=== PATIENT | female | born 1970 | race Hispanic/Latino ===

== ENCOUNTER 2017-12-01 18:50 | Emergency (ER) | payer SELFPAY ==
[2017-12-01 19:16] LABS: BASOPHILS % (AUTO) 0.5 % (0.0-5.0); EOSINOPHILS % (AUTO) 3.6 % (0.0-8.0); HEMATOCRIT 37.9 % (36-48); LYMPHOCYTES % (AUTO) 33.8 % (21.0-51.0); MEAN CORPUSCULAR HEMOGLOBIN 33.7 pg (27.0-33.0); MEAN CORPUSCULAR HGB CONC 34.7 g/dL (32.0-36.0); MEAN CORPUSCULAR VOLUME 97.2 fL (79-99); MONOCYTES % (AUTO) 11.7 % (3.0-13.0); NEUTROPHILS % (AUTO) 50.4 % (40.0-77.0); PLATELET COUNT (AUTO) 151 K/uL (130-400); RED CELL DISTRIBUTION WIDTH 13.4 % (11.0-15.5); WHITE BLOOD COUNT (AUTO) 4.5 K/uL (4.8-10.8)
[2017-12-01 19:38] LABS: CREATININE 0.6 mg/dL (0.5-1.5); POTASSIUM 3.4 mmol/L (3.5-5.1)
[2017-12-01] MEDS ORDERED: KETOROLAC TROMETHAMINE 30MG/ML ONE (19:39)
[2017-12-01] MEDS ORDERED: ONDANSETRON HCL 4 MG/2 ML VIAL ONE (19:39)
[2017-12-01] MEDS ORDERED: SODIUM CHLORIDE 0.9% 1000ML 1,000 ML IV ONE (19:39)
[2017-12-01 19:42] LABS: ALBUMIN 3.6 g/dL (3.5-5.0); BILIRUBIN,TOTAL 0.6 mg/dL (0.2-1.0); TOTAL PROTEIN, SERUM 7.6 g/dL (6.0-8.3)
[2017-12-01 19:52] LABS: APPEARANCE,URINE Clear (CLEAR); BILIRUBIN,URINE Negative (NEGATIVE); COLOR,URINE Yellow (YELLOW); GLUCOSE, URINE (UA) Negative (NEGATIVE); KETONES,URINE Negative (NEGATIVE); LEUKOCYTE ESTERASE ,URINE Negative (NEGATIVE); NITRATE,URINE Negative (NEGATIVE); OCCULT BLOOD,URINE Trace (NEGATIVE); PH,URINE 6.5 (5.0-8.0); PROTEIN,URINE Negative (NEGATIVE); UROBILINOGEN,URINE 0.2 mg/dL (0.2-1.0)
[2017-12-01 20:18] LABS: BACTERIA,URINE None Seen /HPF (None Seen); RBC,URINE 0-1 /HPF (0-1); SQUAMOUS EPITHELIAL CELL,UR 0-2 /LPF (0-2); WBC,URINE None Seen /HPF (0-1)
[2017-12-01] MEDS ORDERED: IOPAMIDOL-370 75 ML VIAL IV ONE (20:27)
== END 2017-12-01 22:52 | disposition home or self-care (01) ==
LOC: EDH 18:50
DX: R10.31 Right lower quadrant pain (principal); R10.2 Pelvic and perineal pain; Z90.49 Acquired absence of other specified parts of digestive tract; Z98.51 Tubal ligation status; Z87.891 Personal history of nicotine dependence
CPT/HCPCS: 36415; 74177; 80053; 81001; 83690; 84703; 85025; 96361; 96374; 96375; 99285; J1885; J2405; J7030; Q9967

== ENCOUNTER 2022-12-20 17:29 | Emergency (ER) | payer SELFPAY ==
[~2022-12-20] VITALS: Ht 162.6 cm; Wt 125.6 kg
[2022-12-20 18:04] LABS: BASOPHILS % (AUTO) 0.4 % (0.0-5.0); EOSINOPHILS % (AUTO) 3.1 % (0.0-8.0); HEMATOCRIT 31.6 % (36-48); LYMPHOCYTES % (AUTO) 25.8 % (21.0-51.0); MEAN CORPUSCULAR HEMOGLOBIN 28.3 pg (27.0-33.0); MEAN CORPUSCULAR HGB CONC 32.3 g/dL (32.0-36.0); MEAN CORPUSCULAR VOLUME 87.5 fL (79-99); MONOCYTES % (AUTO) 7.7 % (3.0-13.0); NEUTROPHILS % (AUTO) 62.6 % (40.0-77.0); PLATELET COUNT (AUTO) 59 K/uL (130-400); RED BLOOD CELL COUNT(AUTO) 3.61 MIL/uL (4.00-5.50); RED CELL DISTRIBUTION WIDTH 15.8 % (11.0-15.5); WHITE BLOOD COUNT (AUTO) 2.6 K/uL (4.8-10.8)
[2022-12-20 18:14] LABS: CREATININE 0.7 mg/dL (0.5-1.5); POTASSIUM 3.7 mmol/L (3.5-5.1)
[2022-12-20 18:23] LABS: ALBUMIN 2.9 g/dL (3.5-5.0); TOTAL PROTEIN, SERUM 7.4 g/dL (6.0-8.3)
[2022-12-20 18:58] VITALS: BP 150/87
[2022-12-20 19:33] LABS: EOSINOPHILS % (MANUAL) 2 % (1-6); LYMPHOCYTES % (MANUAL) 21 % (22-44); MONOCYTES % (MANUAL) 8 % (2-9); SEGMENTED NEUTROPHILS % 69 % (40-70)
[2022-12-20 19:34] LABS: MAN.DIFF COMMENT-IMPRESSION MANUAL DIFFERENTIAL; PLATELET MORPHOLOGY COMMENT DECREASED
[2022-12-20 20:44] LABS: APPEARANCE,URINE CLEAR (CLEAR); BILIRUBIN,URINE NEGATIVE (NEGATIVE); COLOR,URINE LIGHT-YELLOW (YELLOW); GLUCOSE, URINE (UA) >=1000 mg/dL (NEGATIVE); KETONES,URINE NEGATIVE (NEGATIVE); LEUKOCYTE ESTERASE ,URINE NEGATIVE Leu/uL (NEGATIVE); NITRATE,URINE NEGATIVE (NEGATIVE); OCCULT BLOOD,URINE SMALL (NEGATIVE); PROTEIN,URINE NEGATIVE (NEGATIVE)
[2022-12-20 21:10] LABS: MUCUS,URINE RARE LPF (None Seen); SQUAMOUS EPITHELIAL CELL,UR FEW /HPF (0-2)
[2022-12-20 21:29] LABS: HEMATOCRIT 32.1 % (36-48)
== END 2022-12-20 23:44 | disposition home or self-care (01) ==
LOC: EDH 17:29
DX: F41.9 Anxiety disorder, unspecified (principal); M32.9 Systemic lupus erythematosus, unspecified; E11.9 Type 2 diabetes mellitus without complications; G20 Parkinson's disease; Z90.49 Acquired absence of other specified parts of digestive tract
CPT/HCPCS: 36415; 70450; 71045; 80053; 81001; 84484; 85014; 85018; 85025; 93005

== ENCOUNTER 2023-01-10 23:20 | Emergency (ER) | payer OTHER ==
[~2023-01-10] VITALS: Ht 162.6 cm; Wt 126.1 kg
[2023-01-10 23:49] LABS: BASOPHILS % (AUTO) 0.4 % (0.0-5.0); EOSINOPHILS % (AUTO) 4.7 % (0.0-8.0); HEMATOCRIT 32.9 % (36-48); LYMPHOCYTES % (AUTO) 29.7 % (21.0-51.0); MEAN CORPUSCULAR HEMOGLOBIN 27.5 pg (27.0-33.0); MEAN CORPUSCULAR HGB CONC 31.6 g/dL (32.0-36.0); MONOCYTES % (AUTO) 9.3 % (3.0-13.0); NEUTROPHILS % (AUTO) 55.5 % (40.0-77.0); PLATELET COUNT (AUTO) 52 K/uL (130-400); RED BLOOD CELL COUNT(AUTO) 3.78 MIL/uL (4.00-5.50); RED CELL DISTRIBUTION WIDTH 15.9 % (11.0-15.5); WHITE BLOOD COUNT (AUTO) 2.4 K/uL (4.8-10.8)
[2023-01-11] MEDS ORDERED: ASPIRIN 81MG CHEW TAB PO ONE
[2023-01-11 00:02] LABS: CREATININE 0.6 mg/dL (0.5-1.5); POTASSIUM 4.8 mmol/L (3.5-5.1)
[2023-01-11 00:07] LABS: ALBUMIN 2.9 g/dL (3.5-5.0); TOTAL PROTEIN, SERUM 7.7 g/dL (6.0-8.3)
[2023-01-11] MEDS ORDERED: IPRATROPIUM 0.5 MG/2.5 ML INH IH ONE (01:00)
[2023-01-11] MEDS ORDERED: ALBUTEROL 0.083% 2.5 MG/3 ML INH IH ONE (01:00)
[2023-01-11 01:15] LABS: BAND NEUTROPHILS % (MANUAL) 3 % (0-2); EOSINOPHILS % (MANUAL) 2 % (1-6); LYMPHOCYTES % (MANUAL) 29 % (22-44); MAN.DIFF COMMENT-IMPRESSION MANUAL DIFFERENTIAL; MONOCYTES % (MANUAL) 7 % (2-9); REACTIVE LYMPHOCYTES 4 % (0-0); SEGMENTED NEUTROPHILS % 55 % (40-70)
[2023-01-11] MEDS ORDERED: ALBUHFA IH (01:38)
[2023-01-11] MEDS ORDERED: PRED50TA2 PO (01:38)
[2023-01-11 01:44] VITALS: BP 141/76
== END 2023-01-11 01:50 | disposition home or self-care (01) ==
LOC: EDH 23:20
DX: R07.89 Other chest pain (principal); R06.00 Dyspnea, unspecified; E11.9 Type 2 diabetes mellitus without complications; I10 Essential (primary) hypertension; K21.9 Gastro-esophageal reflux disease without esophagitis; Z90.49 Acquired absence of other specified parts of digestive tract
CPT/HCPCS: 36415; 71045; 80053; 84484; 85025; 93005; 94640

== ENCOUNTER 2023-02-02 21:52 | Emergency (ER) | payer OTHER ==
[~2023-02-02] VITALS: Ht 162.6 cm; Wt 123.4 kg
[~2023-02-02 21:52] MED LIST: ALBUHFA IH; PRED50TA2 PO
[2023-02-02 23:21] LABS: BASOPHILS % (AUTO) 0.1 % (0.0-5.0); HEMATOCRIT 40.3 % (36-48); LYMPHOCYTES % (AUTO) 8.9 % (21.0-51.0); MEAN CORPUSCULAR HEMOGLOBIN 26.8 pg (27.0-33.0); MEAN CORPUSCULAR HGB CONC 30.8 g/dL (32.0-36.0); MONOCYTES % (AUTO) 5.2 % (3.0-13.0); NEUTROPHILS % (AUTO) 84.6 % (40.0-77.0); PLATELET COUNT (AUTO) 69 K/uL (130-400); RED BLOOD CELL COUNT(AUTO) 4.63 MIL/uL (4.00-5.50); RED CELL DISTRIBUTION WIDTH 16.7 % (11.0-15.5); WHITE BLOOD COUNT (AUTO) 9.9 K/uL (4.8-10.8)
[2023-02-02 23:27] LABS: APPEARANCE,URINE CLEAR (CLEAR); BILIRUBIN,URINE NEGATIVE (NEGATIVE); COLOR,URINE YELLOW (YELLOW); GLUCOSE, URINE (UA) 30 mg/dL (NEGATIVE); KETONES,URINE 5 mg/dL (NEGATIVE); LEUKOCYTE ESTERASE ,URINE NEGATIVE Leu/uL (NEGATIVE); NITRATE,URINE NEGATIVE (NEGATIVE); OCCULT BLOOD,URINE NEGATIVE (NEGATIVE); PROTEIN,URINE 20 mg/dL (NEGATIVE); UROBILINOGEN,URINE 0.2 mg/dL (0.2-1.0)
[2023-02-02 23:30] LABS: MUCUS,URINE RARE LPF (None Seen); SQUAMOUS EPITHELIAL CELL,UR RARE /HPF (0-2)
[2023-02-02] MEDS ORDERED: MORPHINE 4 MG SYG IVP ONE (23:30)
[2023-02-02] MEDS ORDERED: ONDANSETRON 4MG INJ IVP ONE (23:30)
[2023-02-02 23:35] LABS: CREATININE 0.6 mg/dL (0.5-1.5); POTASSIUM 5.1 mmol/L (3.5-5.1)
[2023-02-02 23:40] LABS: ALBUMIN 3.1 g/dL (3.5-5.0); TOTAL PROTEIN, SERUM 8.4 g/dL (6.0-8.3)
[2023-02-03 00:11] LABS: PLATELET MORPHOLOGY COMMENT DECREASED
[2023-02-03] MEDS ORDERED: ACET-2079 PO (00:58)
[2023-02-03] MEDS ORDERED: SOLU-MEDROL 125MG VIAL IVP ONE (01:00)
[2023-02-03 01:10] VITALS: BP 118/60
== END 2023-02-03 01:22 | disposition home or self-care (01) ==
LOC: EDH 21:52
DX: R10.9 Unspecified abdominal pain (principal); M32.9 Systemic lupus erythematosus, unspecified; R11.0 Nausea; E11.9 Type 2 diabetes mellitus without complications; F32.A Depression, unspecified; F41.9 Anxiety disorder, unspecified; Z20.822 Contact with and (suspected) exposure to COVID-19; Z90.49 Acquired absence of other specified parts of digestive tract
CPT/HCPCS: 99285; 96374; 71045; 87635; 96375 ×2; 84484; 80053; 83690; 85025; 87804 ×2; 81001; 36415; 93005; C9803; J2405; J2270; J2930

== ENCOUNTER 2023-03-31 16:18 | Inpatient (IN) | payer OTHER, SELFPAY ==
[~2023-03-31] VITALS: Ht 162.6 cm; Wt 131.0 kg
[~2023-03-31 16:18] MED LIST changes: +ACET-2079 PO
[2023-03-31 16:38] LABS: BASOPHILS % (AUTO) 0.4 % (0.0-5.0); EOSINOPHILS % (AUTO) 3.5 % (0.0-8.0); HEMATOCRIT 27.2 % (36-48); LYMPHOCYTES % (AUTO) 22.7 % (21.0-51.0); MEAN CORPUSCULAR HEMOGLOBIN 25.3 pg (27.0-33.0); MEAN CORPUSCULAR HGB CONC 30.1 g/dL (32.0-36.0); MONOCYTES % (AUTO) 10.5 % (3.0-13.0); NEUTROPHILS % (AUTO) 62.5 % (40.0-77.0); PLATELET COUNT (AUTO) 78 K/uL (130-400); RED BLOOD CELL COUNT(AUTO) 3.24 MIL/uL (4.00-5.50); RED CELL DISTRIBUTION WIDTH 16.8 % (11.0-15.5); WHITE BLOOD COUNT (AUTO) 2.6 K/uL (4.8-10.8)
[2023-03-31 17:07] LABS: ALBUMIN 2.6 g/dL (3.5-5.0); CREATININE 0.7 mg/dL (0.5-1.5); EOSINOPHILS % (MANUAL) 4 % (1-6); LYMPHOCYTES % (MANUAL) 18 % (22-44); MAGNESIUM 1.8 mg/dL (1.80-2.40); MAN.DIFF COMMENT-IMPRESSION MANUAL DIFFERENTIAL; MONOCYTES % (MANUAL) 6 % (2-9); PLATELET MORPHOLOGY COMMENT DECREASED; POTASSIUM 3.6 mmol/L (3.5-5.1); SEGMENTED NEUTROPHILS % 72 % (40-70)
[2023-03-31] MEDS ORDERED: KETOROLAC 15MG/ML VIAL (15MG/ML) IM ONE (19:00)
[2023-03-31] MEDS ORDERED: LACTULOSE 20 GM/30 ML UDCUP PO PRN (21:30)
[2023-03-31] MEDS ORDERED: ACETAMINOPHEN 325 MG TAB PO PRN (21:30)
[2023-03-31 21:44] LABS: CHOLESTEROL 148 mg/dL (<200); HDL CHOLESTEROL 60 mg/dL (35-85); LDL DIRECT 62 mg/dL (0-99); TRIGLYCERIDES 139 mg/dL (30-200)
[2023-03-31 21:45] LABS: CRP QUANTITATIVE < 2.00 mg/L (0.00-9.0)
[2023-03-31] MEDS: ACETAMINOPHEN 325 MG TAB PO PRN ×2 (23:07→23:54)
[2023-04-01] MEDS ORDERED: IBUPROFEN 600 MG TABLET PO ONE
[2023-04-01] MEDS: ONDANSETRON 4MG INJ IV PRN (06:19)
[2023-04-01] MEDS: ASPIRIN 81 MG EC TAB PO SCH (08:54)
[2023-04-01] MEDS: METOPROLOL TARTRATE 25 MG TAB PO SCH ×2 (09:00→20:14)
[2023-04-01] MEDS: FAMOTIDINE 20MG TAB PO SCH ×2 (09:00→20:14)
[2023-04-01] MEDS: INSULIN HUMULIN R 100 UNIT/ML 3ML SQ SCH ×4 (09:00→20:17)
[2023-04-01 11:09] LABS: HEMATOCRIT 26.6 % (36-48); MEAN CORPUSCULAR HEMOGLOBIN 25.3 pg (27.0-33.0); MEAN CORPUSCULAR HGB CONC 30.1 g/dL (32.0-36.0); MEAN CORPUSCULAR VOLUME 84.2 fL (79-99); PLATELET COUNT (AUTO) 67 K/uL (130-400); RED BLOOD CELL COUNT(AUTO) 3.16 MIL/uL (4.00-5.50); RED CELL DISTRIBUTION WIDTH 17.1 % (11.0-15.5); WHITE BLOOD COUNT (AUTO) 2.7 K/uL (4.8-10.8)
[2023-04-01 11:42] LABS: % IRON SATURATION 4.8 % (22-44)
[2023-04-01 11:44] LABS: CRP QUANTITATIVE < 2.00 mg/L (0.00-9.0)
[2023-04-01 13:12] LABS: BAND NEUTROPHILS % (MANUAL) 7 % (0-2); EOSINOPHILS % (MANUAL) 4 % (1-6); LYMPHOCYTES % (MANUAL) 19 % (22-44); MAN.DIFF COMMENT-IMPRESSION MANUAL DIFFERENTIAL; MONOCYTES % (MANUAL) 11 % (2-9); PLATELET MORPHOLOGY COMMENT DECREASED; SEGMENTED NEUTROPHILS % 59 % (40-70)
[2023-04-01 14:03] LABS: ERYTHROCYTE SEDIMENTATION RATE 35 MM/HR (0-30)
[2023-04-01 17:15] VITALS: BP 113/53
[2023-04-01] MEDS ORDERED: HYDR200T75 PO (17:41)
[2023-04-01] MEDS ORDERED: PRAM0.5T12 PO (17:41)
[2023-04-01] MEDS ORDERED: PRED20TA3 PO (17:41)
[2023-04-01] MEDS ORDERED: SITA1TAB2 PO (17:41)
[2023-04-01 20:00] VITALS: BP 130/61
[2023-04-02] VITALS (7 sets, daily range): BP systolic 101–162; BP diastolic 49–76
[2023-04-02] MEDS ORDERED: KETOROLAC 15MG/ML VIAL (15MG/ML) IV ONE (05:00)
[2023-04-02] MEDS: INSULIN HUMULIN R 100 UNIT/ML 3ML SQ SCH ×4 (06:10→21:18)
[2023-04-02] MEDS: METOPROLOL TARTRATE 25 MG TAB PO SCH ×2 (10:01→21:17)
[2023-04-02] MEDS: ASPIRIN 81 MG EC TAB PO SCH (10:01)
[2023-04-02] MEDS: FAMOTIDINE 20MG TAB PO SCH ×2 (10:02→21:17)
[2023-04-02 10:50] LABS: HEMOGLOBIN A1C 10.6 % (4.0-6.0)
[2023-04-02] MEDS: LIDOCAINE 5% TOPICAL PATCH TP SCH (17:34)
[2023-04-02] MEDS: ONDANSETRON 4MG INJ IV PRN (21:17)
[2023-04-03 04:30] VITALS: BP 130/63
[2023-04-03] MEDS: INSULIN HUMULIN R 100 UNIT/ML 3ML SQ SCH ×4 (05:36→20:08)
[2023-04-03 06:09] LABS: BASOPHILS % (AUTO) 0.5 % (0.0-5.0); EOSINOPHILS % (AUTO) 6.5 % (0.0-8.0); HEMATOCRIT 25.2 % (36-48); LYMPHOCYTES % (AUTO) 30.8 % (21.0-51.0); MEAN CORPUSCULAR HEMOGLOBIN 24.8 pg (27.0-33.0); MEAN CORPUSCULAR HGB CONC 29.8 g/dL (32.0-36.0); MEAN CORPUSCULAR VOLUME 83.2 fL (79-99); MONOCYTES % (AUTO) 15.4 % (3.0-13.0); NEUTROPHILS % (AUTO) 46.3 % (40.0-77.0); PLATELET COUNT (AUTO) 52 K/uL (130-400); RED BLOOD CELL COUNT(AUTO) 3.03 MIL/uL (4.00-5.50); WHITE BLOOD COUNT (AUTO) 2.1 K/uL (4.8-10.8)
[2023-04-03 06:37] LABS: ALBUMIN 2.3 g/dL (3.5-5.0); CREATININE 0.6 mg/dL (0.5-1.5); POTASSIUM 4.2 mmol/L (3.5-5.1); THYROID STIMULATING HORMONE 5.03 uIU/mL (0.36-3.74); TOTAL PROTEIN, SERUM 6.3 g/dL (6.0-8.3)
[2023-04-03 06:57] LABS: EOSINOPHILS % (MANUAL) 5 % (1-6); LYMPHOCYTES % (MANUAL) 31 % (22-44); MAN.DIFF COMMENT-IMPRESSION MANUAL DIFFERENTIAL; MONOCYTES % (MANUAL) 5 % (2-9); SEGMENTED NEUTROPHILS % 59 % (40-70)
[2023-04-03 06:58] LABS: PLATELET MORPHOLOGY COMMENT MARKED DECREASE
[2023-04-03 08:00] VITALS: BP 123/77
[2023-04-03] MEDS: METOPROLOL TARTRATE 25 MG TAB PO SCH ×2 (08:57→20:02)
[2023-04-03] MEDS: FAMOTIDINE 20MG TAB PO SCH ×2 (08:57→20:02)
[2023-04-03] MEDS: ASPIRIN 81 MG EC TAB PO SCH (08:57)
[2023-04-03] MEDS ORDERED: IBUP-2070 PO (10:15)
[2023-04-03] MEDS ORDERED: SERT100T PO (10:15)
[2023-04-03] MEDS ORDERED: IBUPROFEN 600 MG TABLET PO PRN (11:00)
[2023-04-03 12:00] VITALS: BP 121/76
[2023-04-03 14:00] LABS: APPEARANCE,URINE CLOUDY (CLEAR); BILIRUBIN,URINE NEGATIVE (NEGATIVE); COLOR,URINE LIGHT-YELLOW (YELLOW); GLUCOSE, URINE (UA) >=1000 mg/dL (NEGATIVE); KETONES,URINE NEGATIVE (NEGATIVE); LEUKOCYTE ESTERASE ,URINE 500 Leu/uL (NEGATIVE); NITRATE,URINE NEGATIVE (NEGATIVE); OCCULT BLOOD,URINE SMALL (NEGATIVE); PH,URINE 6.5 (5.0-8.0); PROTEIN,URINE 10 mg/dL (NEGATIVE)
[2023-04-03 14:18] LABS: BACTERIA,URINE RARE /HPF (None Seen); SQUAMOUS EPITHELIAL CELL,UR FEW /HPF (0-2); WBC,URINE TNTC /HPF (0-1)
[2023-04-03] MEDS: LIDOCAINE 5% TOPICAL PATCH TP SCH (14:45)
[2023-04-03 16:00] VITALS: BP 108/54
[2023-04-03] MEDS: ONDANSETRON 4MG INJ IV PRN (16:11)
[2023-04-03] MEDS: PRAMIPEXOLE DI-HCL 0.25 MG TABLET PO SCH (20:02)
[2023-04-03 20:31] VITALS: BP 110/62
[2023-04-03 23:57] VITALS: BP 123/50
[2023-04-04 04:07] VITALS: BP 108/49
[2023-04-04] MEDS: INSULIN HUMULIN R 100 UNIT/ML 3ML SQ SCH ×4 (06:45→20:46)
[2023-04-04 08:00] VITALS: BP 130/97
[2023-04-04] MEDS: PRAMIPEXOLE DI-HCL 0.25 MG TABLET PO SCH ×2 (09:36→20:45)
[2023-04-04] MEDS: FAMOTIDINE 20MG TAB PO SCH ×2 (09:36→20:46)
[2023-04-04] MEDS: PREDNISONE 20 MG TABLET PO SCH (09:36)
[2023-04-04] MEDS: HYDROXYCHLOROQUINE SULFATE 200 MG TAB PO SCH (09:36)
[2023-04-04] MEDS: SERTRALINE HCL 50 MG TABLET PO SCH (09:36)
[2023-04-04] MEDS: ASPIRIN 81 MG EC TAB PO SCH (09:36)
[2023-04-04] MEDS: METOPROLOL TARTRATE 25 MG TAB PO SCH ×2 (09:36→20:45)
[2023-04-04 12:00] VITALS: BP 151/73
[2023-04-04] MEDS: LIDOCAINE 5% TOPICAL PATCH TP SCH (15:09)
[2023-04-04 16:00] VITALS: BP 130/76
[2023-04-04] MEDS: CEFTRIAXONE 2GM VIAL IVPB SCH (18:19)
[2023-04-04 20:00] VITALS: BP 118/52
[2023-04-04 23:52] VITALS: BP 106/60
[2023-04-05 04:19] VITALS: BP 102/59
[2023-04-05] MEDS ORDERED: REGADENOSON 0.4 MG/5 ML PF SYG IVP SCH (07:00)
[2023-04-05] MEDS: INSULIN HUMULIN R 100 UNIT/ML 3ML SQ SCH ×4 (07:30→21:04)
[2023-04-05 08:00] VITALS: BP 130/63
[2023-04-05] MEDS: METOPROLOL TARTRATE 25 MG TAB PO SCH ×2 (09:40→20:59)
[2023-04-05] MEDS: PREDNISONE 20 MG TABLET PO SCH (09:40)
[2023-04-05] MEDS: FAMOTIDINE 20MG TAB PO SCH ×2 (09:40→20:59)
[2023-04-05] MEDS: SERTRALINE HCL 50 MG TABLET PO SCH (09:40)
[2023-04-05] MEDS: HYDROXYCHLOROQUINE SULFATE 200 MG TAB PO SCH (09:40)
[2023-04-05] MEDS: ASPIRIN 81 MG EC TAB PO SCH (09:40)
[2023-04-05] MEDS: PRAMIPEXOLE DI-HCL 0.25 MG TABLET PO SCH ×2 (09:40→20:59)
[2023-04-05 12:00] VITALS: BP 114/75
[2023-04-05] MEDS: LIDOCAINE 5% TOPICAL PATCH TP SCH (13:59)
[2023-04-05 15:24] LABS: HEMATOCRIT 28.8 % (36-48); MEAN CORPUSCULAR HEMOGLOBIN 24.8 pg (27.0-33.0); MEAN CORPUSCULAR HGB CONC 29.2 g/dL (32.0-36.0); PLATELET COUNT (AUTO) 64 K/uL (130-400); RED BLOOD CELL COUNT(AUTO) 3.39 MIL/uL (4.00-5.50); RED CELL DISTRIBUTION WIDTH 16.7 % (11.0-15.5); WHITE BLOOD COUNT (AUTO) 3.6 K/uL (4.8-10.8)
[2023-04-05 16:26] LABS: LYMPHOCYTES % (MANUAL) 13 % (22-44); MAN.DIFF COMMENT-IMPRESSION MANUAL DIFFERENTIAL; MONOCYTES % (MANUAL) 3 % (2-9); SEGMENTED NEUTROPHILS % 84 % (40-70)
[2023-04-05 16:27] LABS: PLATELET MORPHOLOGY COMMENT DECREASED
[2023-04-05] MEDS: CEFTRIAXONE 2GM VIAL IVPB SCH (16:55)
[2023-04-05 16:57] VITALS: BP 125/80
[2023-04-05 19:51] VITALS: BP 151/67
[2023-04-05 23:16] VITALS: BP 116/50
[2023-04-06 03:55] VITALS: BP 90/48
[2023-04-06] MEDS: INSULIN HUMULIN R 100 UNIT/ML 3ML SQ SCH ×3 (05:52→17:18)
[2023-04-06 06:31] VITALS: BP 127/66
[2023-04-06 08:00] VITALS: BP 130/75
[2023-04-06] MEDS: SERTRALINE HCL 50 MG TABLET PO SCH (09:24)
[2023-04-06] MEDS: ASPIRIN 81 MG EC TAB PO SCH (09:24)
[2023-04-06] MEDS: METOPROLOL TARTRATE 25 MG TAB PO SCH (09:24)
[2023-04-06] MEDS: HYDROXYCHLOROQUINE SULFATE 200 MG TAB PO SCH (09:24)
[2023-04-06] MEDS: PREDNISONE 20 MG TABLET PO SCH (09:24)
[2023-04-06] MEDS: FAMOTIDINE 20MG TAB PO SCH (09:24)
[2023-04-06] MEDS: PRAMIPEXOLE DI-HCL 0.25 MG TABLET PO SCH (09:25)
[2023-04-06] MEDS ORDERED: SULF1TAB42 PO (11:11)
[2023-04-06] MEDS ORDERED: ONDA-104 PO (11:27)
[2023-04-06 11:46] VITALS: BP 111/50
[2023-04-06] MEDS: ONDANSETRON 4MG INJ IV PRN (11:56)
[2023-04-06] MEDS ORDERED: ACETAMINOPHEN WITH CODEINE 1 TAB TAB PO SCH (12:00)
[2023-04-06] MEDS: LIDOCAINE 5% TOPICAL PATCH TP SCH (14:39)
[2023-04-06 16:00] VITALS: BP 112/51
== END 2023-04-06 18:15 | disposition home or self-care (01) | DRG 206 ==
LOC: EDH 16:18 → EDHIP 16:19 → 3DH 04-01 16:40
PROVIDERS: ADMIT Hospitalist; ATTEND Hospitalist
DX: M94.0 Chondrocostal junction syndrome [Tietze] (principal); D61.818 Other pancytopenia; N39.0 Urinary tract infection, site not specified; Z68.42 Body mass index [BMI] 45.0-49.9, adult; E78.5 Hyperlipidemia, unspecified; E11.9 Type 2 diabetes mellitus without complications; F41.9 Anxiety disorder, unspecified; F32.A Depression, unspecified; E83.51 Hypocalcemia; E66.01 Morbid (severe) obesity due to excess calories; I10 Essential (primary) hypertension; K74.60 Unspecified cirrhosis of liver; Z79.899 Other long term (current) drug therapy; Z80.0 Family history of malignant neoplasm of digestive organs; Z90.49 Acquired absence of other specified parts of digestive tract
CPT/HCPCS: 36415; 70450; 70553; 71045; 76705; 78452; 80053; 80061; 81001; 82607; 82746; 82948; 83036; 83540; 83550; 83735; 84443; 84484; 84703; 85025; 85651; 86038; 86140; 86431; 87077; 87088; 87186; 93005; 93017; 93306; 93356; 93970; 96374; A9500; G0378; J0696; J1815; J1885; J2405; J2785

== ENCOUNTER → 2023-08-22 | Outpatient (CLI) | payer OTHER ==
[~2023-08-22] MED LIST changes: -ACET-2079 PO; -ALBUHFA IH; +GABA300C PO; +HYDR200T75 PO; +IBUP-1493 PO; +IBUP-2070 PO; +ONDA-104 PO; +PRAM0.5T12 PO; +PRED20TA3 PO; -PRED50TA2 PO; +SERT100T PO; +SITA1TAB2 PO; +SULF1TAB42 PO
== END | disposition home or self-care (01) ==
LOC: RAH 14:41
PROVIDERS: ATTEND Internal Medicine
DX: M17.12 Unilateral primary osteoarthritis, left knee (principal)
CPT/HCPCS: 73560

== ENCOUNTER 2023-10-03 20:24 | Emergency (ER) | payer OTHER ==
[~2023-10-03] VITALS: Ht 162.6 cm; Wt 127.0 kg
[2023-10-03 22:28] LABS: BASOPHILS # (AUTO) 0.01 K/uL (0.00-0.20); BASOPHILS % (AUTO) 0.5 % (0.0-5.0); EOSINOPHILS % (AUTO) 5.5 % (0.0-8.0); HEMATOCRIT 36.9 % (36-48); LYMPHOCYTES # (AUTO) 0.5 K/uL (1.0-4.8); LYMPHOCYTES % (AUTO) 29.1 % (21.0-51.0); MEAN CORPUSCULAR HEMOGLOBIN 28.6 pg (27.0-33.0); MEAN CORPUSCULAR VOLUME 89.6 fL (79-99); MONOCYTES # (AUTO) 0.3 K/uL (0.1-1.0); MONOCYTES % (AUTO) 13.7 % (3.0-13.0); NEUTROPHILS # (AUTO) 0.9 K/uL (1.8-7.7); NEUTROPHILS % (AUTO) 51.2 % (40.0-77.0); PLATELET COUNT (AUTO) 58 K/uL (130-400); RED BLOOD CELL COUNT(AUTO) 4.12 MIL/uL (4.00-5.50); RED CELL DISTRIBUTION WIDTH 15.5 % (11.0-15.5); WHITE BLOOD COUNT (AUTO) 1.8 K/uL (4.8-10.8)
[2023-10-03 22:36] LABS: CREATININE 0.7 mg/dL (0.5-1.5)
[2023-10-03 22:45] LABS: ALBUMIN 2.8 g/dL (3.5-5.0); BILIRUBIN,TOTAL 0.8 mg/dL (0.2-1.0); TOTAL PROTEIN, SERUM 7.5 g/dL (6.0-8.3)
[2023-10-03 23:42] LABS: PLATELET MORPHOLOGY COMMENT DECREASED
[2023-10-04] MEDS ORDERED: IBUPROFEN 800 MG TAB PO ONE (00:30)
[2023-10-04] MEDS ORDERED: GABAPENTIN 300 MG CAPSULE PO SCH (00:30)
[2023-10-04 00:52] VITALS: BP 132/69; PULSE 82; RESP 16; O2SAT 99
== END 2023-10-04 00:53 | disposition home or self-care (01) ==
LOC: EDH 20:24
DX: M32.9 Systemic lupus erythematosus, unspecified (principal); E11.65 Type 2 diabetes mellitus with hyperglycemia; D69.6 Thrombocytopenia, unspecified; D50.9 Iron deficiency anemia, unspecified; D72.819 Decreased white blood cell count, unspecified; R07.89 Other chest pain; I10 Essential (primary) hypertension; Z79.899 Other long term (current) drug therapy; Z90.49 Acquired absence of other specified parts of digestive tract; Z98.890 Other specified postprocedural states
CPT/HCPCS: 36415; 71045; 80053; 84484; 85025; 93005

== ENCOUNTER 2023-11-03 20:29 | Inpatient (IN) | payer OTHER ==
[~2023-11-03] VITALS: Ht 162.6 cm; Wt 136.2 kg
[2023-11-03 21:13] LABS: BASOPHILS # (AUTO) 0.01 K/uL (0.00-0.20); BASOPHILS % (AUTO) 0.4 % (0.0-5.0); EOSINOPHILS # (AUTO) 0.09 K/uL (0.00-0.70); EOSINOPHILS % (AUTO) 3.4 % (0.0-8.0); HEMATOCRIT 35.4 % (36-48); IMMATURE GRANULOCYTE ABSOLUTE 0.01 K/uL (0-1); LYMPHOCYTES # (AUTO) 0.5 K/uL (1.0-4.8); LYMPHOCYTES % (AUTO) 18.1 % (21.0-51.0); MEAN CORPUSCULAR HEMOGLOBIN 28.2 pg (27.0-33.0); MEAN CORPUSCULAR HGB CONC 32.5 g/dL (32.0-36.0); MEAN CORPUSCULAR VOLUME 86.8 fL (79-99); MONOCYTES # (AUTO) 0.2 K/uL (0.1-1.0); MONOCYTES % (AUTO) 6.8 % (3.0-13.0); NEUTROPHILS # (AUTO) 1.9 K/uL (1.8-7.7); NEUTROPHILS % (AUTO) 70.9 % (40.0-77.0); PLATELET COUNT (AUTO) 56 K/uL (130-400); RED BLOOD CELL COUNT(AUTO) 4.08 MIL/uL (4.00-5.50); RED CELL DISTRIBUTION WIDTH 15.8 % (11.0-15.5); WHITE BLOOD COUNT (AUTO) 2.7 K/uL (4.8-10.8)
[2023-11-03 21:21] LABS: CREATININE 0.7 mg/dL (0.5-1.5)
[2023-11-03 21:22] LABS: HCG,QUALITATIVE URINE NEGATIVE (NEGATIVE)
[2023-11-03 21:44] LABS: ADD UA MICROSCOPIC YES; APPEARANCE,URINE CLEAR (CLEAR); BILIRUBIN,URINE NEGATIVE (NEGATIVE); COLOR,URINE LIGHT-YELLOW (YELLOW); GLUCOSE, URINE (UA) >=1000 mg/dL (NEGATIVE); KETONES,URINE NEGATIVE (NEGATIVE); LEUKOCYTE ESTERASE ,URINE NEGATIVE Leu/uL (NEGATIVE); MUCUS,URINE RARE LPF (None Seen); NITRATE,URINE NEGATIVE (NEGATIVE); OCCULT BLOOD,URINE MODERATE (NEGATIVE); PROTEIN,URINE NEGATIVE (NEGATIVE); SQUAMOUS EPITHELIAL CELL,UR RARE /HPF (0-2); WBC,URINE 0-1 /HPF (0-1)
[2023-11-03 22:12] LABS: EOSINOPHILS % (MANUAL) 2 % (1-6); LYMPHOCYTES % (MANUAL) 10 % (22-44); MAN.DIFF COMMENT-IMPRESSION MANUAL DIFFERENTIAL; MONOCYTES % (MANUAL) 5 % (2-9); REACTIVE LYMPHOCYTES 1 % (0-0); SEGMENTED NEUTROPHILS % 82 % (40-70); TOTAL CELLS COUNTED 100
[2023-11-03 22:13] LABS: PLATELET MORPHOLOGY COMMENT DECREASED
[2023-11-03] MEDS ORDERED: 0.9%NACL 1000ML 1,000 ML IV SCH (23:00)
[2023-11-03] MEDS ORDERED: PANTOPRAZOLE 40 MG/VIAL IVP SCH (23:30)
[2023-11-03] MEDS ORDERED: METOCLOPRAMIDE 10 MG/2 ML VIAL IVP SCH (23:30)
[2023-11-03] MEDS ORDERED: FURO20TA4 PO (23:35)
[2023-11-03] MEDS ORDERED: PRED20TA3 PO (23:35)
[2023-11-03] MEDS ORDERED: ATOR20TA65 PO (23:37)
[2023-11-03] MEDS ORDERED: PRAM0.5T12 PO (23:37)
[2023-11-03] MEDS ORDERED: HYDR200T75 PO (23:39)
[2023-11-03] MEDS ORDERED: LEVO25CA4 PO (23:40)
[2023-11-03] MEDS ORDERED: METO-391 PO (23:40)
[2023-11-03] MEDS ORDERED: DULO20 PO (23:41)
[2023-11-04] MEDS ORDERED: CEFTRIAXONE 2GM VIAL IVPB SCH (00:30)
[2023-11-04] MEDS ORDERED: MORPHINE 4 MG SYG IV PRN (01:00)
[2023-11-04] MEDS ORDERED: FUROSEMIDE 20 MG TABLET PO PRN (01:00)
[2023-11-04] MEDS ORDERED: OCTREOTIDE ACETATE 1,250 MCG in 0.9% NACL 250ML 250 ML IV SCH (01:00)
[2023-11-04] MEDS ORDERED: ONDANSETRON 4MG INJ IV PRN (01:00)
[2023-11-04] MEDS ORDERED: OCTREOTIDE ACETATE 100 MCG/ML AMP IV ONE (01:00)
[2023-11-04] MEDS ORDERED: ACETAMINOPHEN 325 MG TAB PO PRN ×2 (01:00)
[2023-11-04] MEDS ORDERED: POTASSIUM CHLORIDE 10% ELIXIR 20 MEQ/15 ML UDCUP PO PRN (01:00)
[2023-11-04] MEDS ORDERED: MAGNESIUM 2GM PREMIX 50ML 50 ML IV PRN (01:00)
[2023-11-04] MEDS ORDERED: POTASSIUM CHLORIDE 20MEQ/100ML 100 ML IV PRN (01:00)
[2023-11-04] MEDS ORDERED: MORPHINE 2 MG SYG IV PRN (01:00)
[2023-11-04] MEDS: 0.9%NACL 1000ML 1,000 ML IV SCH ×2 (01:25→19:52)
[2023-11-04] MEDS: OCTREOTIDE ACETATE 500 MCG in 0.9%NACL 100ML 97.5 ML IV SCH ×2 (02:58→21:09)
[2023-11-04 03:55] VITALS: BP 112/87; PULSE 78; RESP 20
[2023-11-04 04:00] VITALS: BP 161/78; PULSE 99; RESP 20; O2SAT 96
[2023-11-04 04:34] LABS: HEMATOCRIT 34.1 % (36-48); IMMATURE GRANULOCYTE ABSOLUTE 0.01 K/uL (0-1); LYMPHOCYTES # (AUTO) 0.5 K/uL (1.0-4.8); LYMPHOCYTES % (AUTO) 15.2 % (21.0-51.0); MEAN CORPUSCULAR HEMOGLOBIN 27.8 pg (27.0-33.0); MEAN CORPUSCULAR HGB CONC 32.3 g/dL (32.0-36.0); MEAN CORPUSCULAR VOLUME 86.3 fL (79-99); MONOCYTES # (AUTO) 0.1 K/uL (0.1-1.0); NEUTROPHILS # (AUTO) 2.4 K/uL (1.8-7.7); NEUTROPHILS % (AUTO) 81.5 % (40.0-77.0); PLATELET COUNT (AUTO) 52 K/uL (130-400); RED BLOOD CELL COUNT(AUTO) 3.95 MIL/uL (4.00-5.50); RED CELL DISTRIBUTION WIDTH 15.6 % (11.0-15.5)
[2023-11-04 04:52] LABS: HEMOGLOBIN A1C 10.5 % (4.0-6.0)
[2023-11-04 04:55] LABS: CREATININE 0.6 mg/dL (0.5-1.5); MAGNESIUM 1.6 mg/dL (1.80-2.40); PHOSPHORUS 3.7 mg/dL (2.5-4.9); POTASSIUM 4.3 mmol/L (3.5-5.1)
[2023-11-04] MEDS: INSULIN HUMULIN R 100 UNIT/ML 3ML SQ SCH ×6 (06:29→20:25)
[2023-11-04 08:00] VITALS: BP 120/52; PULSE 78; RESP 18
[2023-11-04] MEDS: PREDNISONE 20 MG TABLET PO SCH (08:53)
[2023-11-04] MEDS: HYDROXYCHLOROQUINE SULFATE 200 MG TAB PO SCH ×2 (08:55→19:59)
[2023-11-04] MEDS: PANTOPRAZOLE 40 MG/VIAL IVP SCH ×2 (08:56→19:59)
[2023-11-04] MEDS: METOPROLOL SUCCINATE 50 MG TAB.SR.24H PO SCH (08:57)
[2023-11-04] MEDS: GABAPENTIN 300 MG CAPSULE PO SCH ×3 (08:57→20:00)
[2023-11-04] MEDS ORDERED: NON-FORMULARY MEDICATION 1 EACH (Levothyroxine Sodium (Levothyroxine) 25 MCG) PO SCH (09:00)
[2023-11-04] MEDS: PHARMACY COMMUNICATION MISC SCH (09:00)
[2023-11-04 10:26] LABS: ALBUMIN 2.9 g/dL (3.5-5.0); BILIRUBIN,DIRECT 0.4 mg/dL (0.0-0.3); BILIRUBIN,TOTAL 0.9 mg/dL (0.2-1.0); TOTAL PROTEIN, SERUM 7.5 g/dL (6.0-8.3)
[2023-11-04 10:44] LABS: HEMATOCRIT 34.1 % (36-48)
[2023-11-04 12:00] VITALS: BP 138/84; PULSE 67; RESP 18
[2023-11-04 15:54] LABS: HEMATOCRIT 34.4 % (36-48)
[2023-11-04 16:00] VITALS: BP 134/82; PULSE 71; RESP 18
[2023-11-04] MEDS: PRAMIPEXOLE DI-HCL 0.25 MG TABLET PO SCH (19:59)
[2023-11-04] MEDS: ATORVASTATIN 20 MG TABLET PO SCH (19:59)
[2023-11-04] MEDS: LACTULOSE 20 GM/30 ML UDCUP PO SCH (19:59)
[2023-11-04 20:00] VITALS: BP 134/61; PULSE 67; RESP 20; O2SAT 97
[2023-11-04] MEDS: INSULIN GLARGINE 100 UNITS/ML 10 ML VIAL SQ SCH (20:24)
[2023-11-04] MEDS ORDERED: PRAMIPEXOLE DI HCL 0.5 MG PO SCH (21:00)
[2023-11-04 22:33] LABS: HEMATOCRIT 32.6 % (36-48)
[2023-11-05] VITALS (10 sets, daily range): BP systolic 103–153; BP diastolic 41–84; PULSE 61–88; RESP 16–18; O2SAT 97–98
[2023-11-05] MEDS: 0.9%NACL 1000ML 1,000 ML IV SCH ×2 (03:50→17:37)
[2023-11-05 04:44] LABS: EOSINOPHILS # (AUTO) 0.09 K/uL (0.00-0.70); EOSINOPHILS % (AUTO) 2.8 % (0.0-8.0); HEMATOCRIT 31.7 % (36-48); IMMATURE GRANULOCYTE ABSOLUTE 0.01 K/uL (0-1); LYMPHOCYTES # (AUTO) 0.8 K/uL (1.0-4.8); LYMPHOCYTES % (AUTO) 24.5 % (21.0-51.0); MEAN CORPUSCULAR HGB CONC 31.9 g/dL (32.0-36.0); MEAN CORPUSCULAR VOLUME 87.8 fL (79-99); MONOCYTES # (AUTO) 0.4 K/uL (0.1-1.0); MONOCYTES % (AUTO) 10.9 % (3.0-13.0); NEUTROPHILS % (AUTO) 61.5 % (40.0-77.0); PLATELET COUNT (AUTO) 54 K/uL (130-400); RED BLOOD CELL COUNT(AUTO) 3.61 MIL/uL (4.00-5.50); WHITE BLOOD COUNT (AUTO) 3.2 K/uL (4.8-10.8)
[2023-11-05 05:07] LABS: ALBUMIN 2.5 g/dL (3.5-5.0); BILIRUBIN,DIRECT 0.4 mg/dL (0.0-0.3); BILIRUBIN,TOTAL 1.1 mg/dL (0.2-1.0); CREATININE 0.6 mg/dL (0.5-1.5); POTASSIUM 3.6 mmol/L (3.5-5.1); TOTAL PROTEIN, SERUM 6.7 g/dL (6.0-8.3)
[2023-11-05] MEDS: LEVOTHYROXINE 25 MCG TABLET PO SCH (05:34)
[2023-11-05] MEDS: INSULIN HUMULIN R 100 UNIT/ML 3ML SQ SCH ×7 (05:41→20:09)
[2023-11-05] MEDS: INSULIN GLARGINE 100 UNITS/ML 10 ML VIAL SQ SCH ×2 (05:41→20:10)
[2023-11-05] MEDS: KCL 20 MEQ ERTAB PO PRN ×2 (06:23→09:15)
[2023-11-05] MEDS: PHARMACY COMMUNICATION MISC SCH (09:00)
[2023-11-05] MEDS: LACTULOSE 20 GM/30 ML UDCUP PO SCH ×2 (09:14→19:02)
[2023-11-05] MEDS: PANTOPRAZOLE 40 MG/VIAL IVP SCH ×2 (09:14→19:02)
[2023-11-05] MEDS: PREDNISONE 20 MG TABLET PO SCH (09:15)
[2023-11-05] MEDS: GABAPENTIN 300 MG CAPSULE PO SCH ×3 (09:15→19:02)
[2023-11-05] MEDS: METOPROLOL SUCCINATE 50 MG TAB.SR.24H PO SCH (09:15)
[2023-11-05] MEDS: HYDROXYCHLOROQUINE SULFATE 200 MG TAB PO SCH ×2 (09:16→19:02)
[2023-11-05 10:43] LABS: HEMATOCRIT 31.2 % (36-48)
[2023-11-05 15:45] LABS: HEMATOCRIT 33.7 % (36-48)
[2023-11-05] MEDS: PRAMIPEXOLE DI-HCL 0.25 MG TABLET PO SCH (19:02)
[2023-11-05] MEDS: ATORVASTATIN 20 MG TABLET PO SCH (19:02)
[2023-11-05] MEDS: OCTREOTIDE ACETATE 500 MCG in 0.9%NACL 100ML 97.5 ML IV SCH (19:58)
[2023-11-06] VITALS (8 sets, daily range): BP systolic 117–153; BP diastolic 53–86; PULSE 60–104; RESP 18–20; O2SAT 96–97
[2023-11-06 04:31] LABS: RETICULOCYTE % (AUTO) 3.75 % (0.42-2.23)
[2023-11-06 05:00] LABS: % IRON SATURATION 12.5 % (22-44)
[2023-11-06 05:23] LABS: ALBUMIN 2.6 g/dL (3.5-5.0); BILIRUBIN,DIRECT 0.3 mg/dL (0.0-0.3); TOTAL PROTEIN, SERUM 6.9 g/dL (6.0-8.3)
[2023-11-06] MEDS: LEVOTHYROXINE 25 MCG TABLET PO SCH (05:41)
[2023-11-06] MEDS: INSULIN HUMULIN R 100 UNIT/ML 3ML SQ SCH ×7 (05:45→21:29)
[2023-11-06] MEDS: INSULIN GLARGINE 100 UNITS/ML 10 ML VIAL SQ SCH ×2 (06:34→21:30)
[2023-11-06] MEDS: PHARMACY COMMUNICATION MISC SCH (09:00)
[2023-11-06 09:11] LABS: EOSINOPHILS # (AUTO) 0.07 K/uL (0.00-0.70); EOSINOPHILS % (AUTO) 2.4 % (0.0-8.0); HEMATOCRIT 33.2 % (36-48); IMMATURE GRANULOCYTE ABSOLUTE 0.02 K/uL (0-1); LYMPHOCYTES # (AUTO) 0.8 K/uL (1.0-4.8); LYMPHOCYTES % (AUTO) 26.9 % (21.0-51.0); MEAN CORPUSCULAR HEMOGLOBIN 28.3 pg (27.0-33.0); MEAN CORPUSCULAR HGB CONC 31.3 g/dL (32.0-36.0); MEAN CORPUSCULAR VOLUME 90.5 fL (79-99); MONOCYTES # (AUTO) 0.3 K/uL (0.1-1.0); NEUTROPHILS # (AUTO) 1.7 K/uL (1.8-7.7); PLATELET COUNT (AUTO) 52 K/uL (130-400); RED BLOOD CELL COUNT(AUTO) 3.67 MIL/uL (4.00-5.50); RED CELL DISTRIBUTION WIDTH 16.1 % (11.0-15.5); WHITE BLOOD COUNT (AUTO) 2.9 K/uL (4.8-10.8)
[2023-11-06] MEDS: GABAPENTIN 300 MG CAPSULE PO SCH ×3 (09:39→20:38)
[2023-11-06] MEDS: METOPROLOL SUCCINATE 50 MG TAB.SR.24H PO SCH (09:39)
[2023-11-06] MEDS: HYDROXYCHLOROQUINE SULFATE 200 MG TAB PO SCH ×2 (09:39→20:37)
[2023-11-06] MEDS: PREDNISONE 20 MG TABLET PO SCH (09:42)
[2023-11-06] MEDS: PANTOPRAZOLE 40 MG/VIAL IVP SCH ×2 (09:48→20:37)
[2023-11-06] MEDS: LACTULOSE 20 GM/30 ML UDCUP PO SCH ×2 (09:48→20:37)
[2023-11-06 09:52] LABS: LYMPHOCYTES % (MANUAL) 24 % (22-44); MONOCYTES % (MANUAL) 12 % (2-9); REACTIVE LYMPHOCYTES 1 % (0-0); SEGMENTED NEUTROPHILS % 63 % (40-70); TOTAL CELLS COUNTED 100
[2023-11-06 09:53] LABS: MAN.DIFF COMMENT-IMPRESSION MANUAL DIFFERENTIAL; PLATELET MORPHOLOGY COMMENT DECREASED
[2023-11-06 10:02] LABS: CREATININE 0.5 mg/dL (0.5-1.5); POTASSIUM 3.4 mmol/L (3.5-5.1)
[2023-11-06] MEDS: KCL 20 MEQ ERTAB PO PRN (19:28)
[2023-11-06] MEDS: ATORVASTATIN 20 MG TABLET PO SCH (20:38)
[2023-11-06] MEDS: PRAMIPEXOLE DI-HCL 0.25 MG TABLET PO SCH (20:38)
[2023-11-06] MEDS: OCTREOTIDE ACETATE 500 MCG in 0.9%NACL 100ML 97.5 ML IV SCH (20:39)
[2023-11-07] VITALS (28 sets, daily range): BP systolic 95–157; BP diastolic 42–83; PULSE 50–72; RESP 12–20; O2SAT 92–99
[2023-11-07 05:06] LABS: BASOPHILS # (AUTO) 0.01 K/uL (0.00-0.20); BASOPHILS % (AUTO) 0.4 % (0.0-5.0); EOSINOPHILS # (AUTO) 0.02 K/uL (0.00-0.70); EOSINOPHILS % (AUTO) 0.8 % (0.0-8.0); HEMATOCRIT 31.5 % (36-48); IMMATURE GRANULOCYTE ABSOLUTE 0.01 K/uL (0-1); LYMPHOCYTES # (AUTO) 0.5 K/uL (1.0-4.8); LYMPHOCYTES % (AUTO) 18.5 % (21.0-51.0); MEAN CORPUSCULAR HEMOGLOBIN 28.3 pg (27.0-33.0); MEAN CORPUSCULAR HGB CONC 32.4 g/dL (32.0-36.0); MEAN CORPUSCULAR VOLUME 87.5 fL (79-99); MONOCYTES # (AUTO) 0.4 K/uL (0.1-1.0); MONOCYTES % (AUTO) 15.6 % (3.0-13.0); NEUTROPHILS # (AUTO) 1.6 K/uL (1.8-7.7); NEUTROPHILS % (AUTO) 64.3 % (40.0-77.0); PLATELET COUNT (AUTO) 49 K/uL (130-400); RED CELL DISTRIBUTION WIDTH 15.9 % (11.0-15.5); WHITE BLOOD COUNT (AUTO) 2.4 K/uL (4.8-10.8)
[2023-11-07 05:09] LABS: CREATININE 0.6 mg/dL (0.5-1.5); POTASSIUM 3.5 mmol/L (3.5-5.1)
[2023-11-07] MEDS: INSULIN HUMULIN R 100 UNIT/ML 3ML SQ SCH ×7 (05:42→21:29)
[2023-11-07] MEDS: LEVOTHYROXINE 25 MCG TABLET PO SCH (05:42)
[2023-11-07] MEDS: INSULIN GLARGINE 100 UNITS/ML 10 ML VIAL SQ SCH ×2 (06:12→21:29)
[2023-11-07] MEDS: GABAPENTIN 300 MG CAPSULE PO SCH ×3 (09:00→20:54)
[2023-11-07] MEDS: LACTULOSE 20 GM/30 ML UDCUP PO SCH ×2 (09:00→20:53)
[2023-11-07] MEDS: PREDNISONE 20 MG TABLET PO SCH (09:00)
[2023-11-07] MEDS: PANTOPRAZOLE 40 MG/VIAL IVP SCH ×2 (09:00→20:53)
[2023-11-07] MEDS: PHARMACY COMMUNICATION MISC SCH (09:00)
[2023-11-07] MEDS: METOPROLOL SUCCINATE 50 MG TAB.SR.24H PO SCH (09:00)
[2023-11-07] MEDS: HYDROXYCHLOROQUINE SULFATE 200 MG TAB PO SCH ×2 (09:00→20:54)
[2023-11-07] MEDS ORDERED: PROPOFOL 10 MG/ML 20ML VIAL IV ONE (09:05)
[2023-11-07] MEDS ORDERED: FENTANYL CITRATE PF 50 MCG/1 ML 2ML VIAL ONE (09:05)
[2023-11-07] MEDS ORDERED: LIDOCAINE PF 100MG/5ML (2%) SYRINGE 5ML ONE (09:05)
[2023-11-07] MEDS ORDERED: METOCLOPRAMIDE 10 MG/2 ML VIAL ONE (09:40)
[2023-11-07] MEDS: KCL 20 MEQ ERTAB PO PRN ×2 (13:21→19:34)
[2023-11-07] MEDS ORDERED: METOCLOPRAMIDE 10 MG/2 ML VIAL IVP SCH (14:00)
[2023-11-07] MEDS: METOCLOPRAMIDE 10 MG/2 ML VIAL IVP SCH ×3 (17:51→23:33)
[2023-11-07] MEDS: ATORVASTATIN 20 MG TABLET PO SCH (20:54)
[2023-11-07] MEDS: PRAMIPEXOLE DI-HCL 0.25 MG TABLET PO SCH (20:54)
[2023-11-07] MEDS ORDERED: OCTREOTIDE 1,250 MCG /NS 250ML (DRIP) IV SCH ×2 (21:30)
[2023-11-08 04:00] VITALS: BP 115/55; PULSE 71; RESP 18
[2023-11-08] MEDS: LEVOTHYROXINE 25 MCG TABLET PO SCH (05:30)
[2023-11-08] MEDS: INSULIN HUMULIN R 100 UNIT/ML 3ML SQ SCH ×2 (05:31)
[2023-11-08] MEDS: METOCLOPRAMIDE 10 MG/2 ML VIAL IVP SCH (05:37)
[2023-11-08 05:46] LABS: BASOPHILS # (AUTO) 0.01 K/uL (0.00-0.20); BASOPHILS % (AUTO) 0.3 % (0.0-5.0); EOSINOPHILS # (AUTO) 0.01 K/uL (0.00-0.70); EOSINOPHILS % (AUTO) 0.3 % (0.0-8.0); HEMATOCRIT 33.3 % (36-48); IMMATURE GRANULOCYTE ABSOLUTE 0.02 K/uL (0-1); LYMPHOCYTES # (AUTO) 0.4 K/uL (1.0-4.8); LYMPHOCYTES % (AUTO) 12.9 % (21.0-51.0); MEAN CORPUSCULAR HEMOGLOBIN 27.7 pg (27.0-33.0); MEAN CORPUSCULAR HGB CONC 32.1 g/dL (32.0-36.0); MEAN CORPUSCULAR VOLUME 86.3 fL (79-99); MONOCYTES # (AUTO) 0.4 K/uL (0.1-1.0); MONOCYTES % (AUTO) 13.5 % (3.0-13.0); NEUTROPHILS # (AUTO) 2.2 K/uL (1.8-7.7); NEUTROPHILS % (AUTO) 72.3 % (40.0-77.0); PLATELET COUNT (AUTO) 50 K/uL (130-400); RED BLOOD CELL COUNT(AUTO) 3.86 MIL/uL (4.00-5.50); RED CELL DISTRIBUTION WIDTH 16.2 % (11.0-15.5)
[2023-11-08 06:05] LABS: ALBUMIN 2.6 g/dL (3.5-5.0); BILIRUBIN,TOTAL 0.8 mg/dL (0.2-1.0); CREATININE 0.6 mg/dL (0.5-1.5); POTASSIUM 3.5 mmol/L (3.5-5.1); TOTAL PROTEIN, SERUM 6.9 g/dL (6.0-8.3)
[2023-11-08] MEDS: INSULIN GLARGINE 100 UNITS/ML 10 ML VIAL SQ SCH (06:32)
[2023-11-08 08:00] VITALS: BP 133/69; PULSE 80; RESP 18; O2SAT 92
== END 2023-11-08 10:25 | disposition left against medical advice (07) | DRG 377 ==
LOC: EDH 20:29 → EDHIP 20:30 → 4CH 11-04 03:45
PROVIDERS: ADMIT Hospitalist; ATTEND Hospitalist
PROC: 0DJ08ZZ Inspection of Upper Intestinal Tract, Via Natural or Artificial Opening Endoscopic (ICD-10-PCS; principal; 2023-11-07)
DX: K92.2 Gastrointestinal hemorrhage, unspecified (principal); E43 Unspecified severe protein-calorie malnutrition; R18.8 Other ascites; Z68.43 Body mass index [BMI] 50.0-59.9, adult; K74.60 Unspecified cirrhosis of liver; D64.9 Anemia, unspecified; E66.9 Obesity, unspecified; E11.65 Type 2 diabetes mellitus with hyperglycemia; M32.9 Systemic lupus erythematosus, unspecified; I85.00 Esophageal varices without bleeding; E66.01 Morbid (severe) obesity due to excess calories; F02.80 Dementia in other diseases classified elsewhere, unspecified severity, without behavioral disturbance, psychotic disturbance, mood disturbance, and anxiety; G30.9 Alzheimer's disease, unspecified; I25.10 Atherosclerotic heart disease of native coronary artery without angina pectoris; G25.81 Restless legs syndrome; D69.6 Thrombocytopenia, unspecified; F32.A Depression, unspecified; I10 Essential (primary) hypertension; E78.5 Hyperlipidemia, unspecified; D70.9 Neutropenia, unspecified; F41.9 Anxiety disorder, unspecified; Z75.3 Unavailability and inaccessibility of health-care facilities; Z80.0 Family history of malignant neoplasm of digestive organs; Z82.49 Family history of ischemic heart disease and other diseases of the circulatory system; Z59.7 Insufficient social insurance and welfare support; Z51.5 Encounter for palliative care
CPT/HCPCS: 36415; 43235; 74018; 74176; 80048; 80053; 80076; 81001; 81025; 82270; 82607; 82728; 82948; 83036; 83615; 83690; 83735; 83880; 84100; 85014; 85018; 85025; 86850; 86900; 86901; 87040; 93005; A4606; C9113; G0378; J0696; J1815; J2001; J2354; J2704; J2765; J3010; J3475; J7030; J7050; A4215; A4216; A4222; A4223; A4620; A4657; A7002; J3490

== ENCOUNTER 2024-06-26 18:57 | Emergency (ER) | payer BC ==
[~2024-06-26] VITALS: Ht 162.6 cm; Wt 127.0 kg
[~2024-06-26 18:57] MED LIST changes: +ATOR20TA65 PO; +DULO20 PO; +FURO20TA4 PO; -IBUP-1493 PO; -IBUP-2070 PO; +LEVO25CA4 PO; +METO-391 PO; -ONDA-104 PO; -SERT100T PO; -SITA1TAB2 PO; -SULF1TAB42 PO
[2024-06-26 22:05] VITALS: BP 136/59; PULSE 72; RESP 18; TEMP 98.3; O2SAT 99
== END 2024-06-26 22:12 | disposition home or self-care (01) ==
LOC: EDH 18:57
DX: S80.12XA Contusion of left lower leg, initial encounter (principal); M32.9 Systemic lupus erythematosus, unspecified; M79.662 Pain in left lower leg; I10 Essential (primary) hypertension; E66.9 Obesity, unspecified; F32.A Depression, unspecified; Z79.899 Other long term (current) drug therapy; Z98.890 Other specified postprocedural states; Z98.51 Tubal ligation status; X58.XXXA Exposure to other specified factors, initial encounter; Y93.89 Activity, other specified; Y92.89 Other specified places as the place of occurrence of the external cause; Y99.8 Other external cause status
CPT/HCPCS: 93926; 93971

== ENCOUNTER 2024-10-13 11:11 | Emergency (ER) | payer BC ==
[~2024-10-13] VITALS: Ht 162.6 cm; Wt 129.7 kg
[~2024-10-13 11:11] MED LIST changes: -DULO20 PO; -FURO20TA4 PO; +GABA-529 PO; -GABA300C PO; +IBUP-2784 PO; +INSU100V45 SQ; +LEVO125T95 PO; +PRED10TA23 PO; +PRED20B PO; -PRED20TA3 PO; +VENL-62 PO
--- NOTE | 2024-10-13 11:20 | ERN ---
ED Note History of Present Illness Stated Complaint: SOB Chief Complaint: Shortness of Breath Time Seen by MD: 11:13 Dictation: PATIENT IS A 54-YEAR-OLD FEMALE COMING IN TODAY WITH LEFT ANTERIOR CHEST PAIN THAT DOES NOT RADIATE WITH SHORTNESS A BREATH ONSET WAS LAST NIGHT. NO FEVER NO CHILLS NO NAUSEA VOMITING. SHE HAS A LONG MEDICAL HISTORY TO INCLUDE ANGINA, HYPOTHYROIDISM UNCONTROLLED DIABETES HYPERTENSION AND [place] [facility] [place]PLAINT. SHE STATES SHE HAS BEEN TOLD BY HER DOCTOR TO SEE CALL OR CONTACT [facility] HOWEVER I CAN NOT AFFORD THE CO-PAY. Allergies: Coded Allergies: No Known Allergies (Unverified Allergy, Unknown, 08/26/14) Home Meds Active Scripts Prednisone (Deltasone/Orasone [Bulk]) 20 Mg Tab, 20 MG PO BID for 30 Days, #60 TAB Prov:ZHANNA SANCHEZ NP 09/29/24 Levothyroxine Sodium (Synthroid 125 Mcg Tab) 125 Mcg Tablet, 125 MCG PO DAILY@0630 for 30 Days, #30 TAB Prov:ZHANNA SANCHEZ NP 09/29/24 Reported Medications Prednisone (Prednisone) 10 Mg Tab.ds.pk, 30 MG PO DAILY 09/25/24 Gabapentin (Gabapentin) 100 Mg Capsule, 300 MG PO BID, CAP 09/25/24 Ibuprofen (Ibuprofen 200 mg Tablet) 200 Mg Tablet, 600 MG PO Q6HPRN PRN for PAIN, TAB 09/25/24 Hydroxychloroquine Sulfate (Hydroxychloroquine Sulfate) 200 Mg Tablet, 200 MG PO BID, TAB 09/25/24 Insulin Lispro (Insulin Lispro) 100 Unit/Ml Vial, 50 UNIT SQ AM, VIAL 09/25/24 Venlafaxine HCl (Venlafaxine HCl ER) 37.5 Mg Cap.er.24h, 1 CAP PO DAILY 09/25/24 Metoprolol Succinate (Metoprolol Succinate) 50 Mg Tab.er.24h, 50 MG PO AM, TAB 11/03/23 Levothyroxine Sodium (Levothyroxine) 25 Mcg Capsule, 25 MCG PO AM, CAP 11/03/23 Atorvastatin Calcium (Atorvastatin Calcium) 20 Mg Tablet, 20 MG PO HS, TAB 11/03/23 Pramipexole Di-HCl (Pramipexole Dihydrochloride) 0.5 Mg Tablet, 0.5 MG PO HS, TAB 11/03/23 Past Medical History Past Medical History: Diabetes-Type II, High Cholesterol, Heart Disease, Hypertension, Hypothyroid Additional Past Medical Hx: LUPUS Surgical History: Cholecystectomy Surgical History Other: TUBAL LIGATION Family History: CAD Social History: Negative, Lives with family History: Not Applicable RN Note Reviewed/Agreed w/PFSH: Yes Review of System Dictation CONSTITUTIONAL: NEGATIVE EXCEPT FOR HPI HEAD/FACE: NEGATIVE EXCEPT FOR HPI EENT: NEGATIVE EXCEPT FOR HPI RESPIRATORY: NEGATIVE EXCEPT FOR HPI CHEST PAIN/SHORTNESS A BREATH GASTROINTESTINAL/ABDOMINAL: NEGATIVE EXCEPT FOR HPI GENITOURINARY: NEGATIVE EXCEPT FOR HPI MUSCULOSKELETAL: NEGATIVE EXCEPT FOR HPI INTEGUMENTARY: NEGATIVE EXCEPT FOR HPI NEUROLOGICAL/PSYCH: NEGATIVE EXCEPT FOR HPI HEMATOLOGIC/LYMPHATIC: NEGATIVE EXCEPT FOR HPI ALL SYSTEMS NEGATIVE, EXCEPT NOTED ABOVE. 13 POINT REVIEW OF SYSTEMS ASSESSED AND ALL NEGATIVE EXCEPT FOR ABOVE. Initial Vital Sign VS Vital Signs Date Time Temp Pulse Resp B/P (MAP) Pulse Ox O2 Delivery O2 Flow Rate FiO2 10/13/24 11:11 98.6 78 16 135/66 96 Room Air 0 10/13/24 11:11 21 Physical Exam Dictation VITAL SIGNS REVIEWED GENERAL APPEARANCE: ALERT, ORIENTED X 3, MODERATE ACUTE DISTRESS, WELL DEVELOPED, NOURISHED. OBESE HEAD AND FACE: NON-TRAUMATIC. EYES: PERRL, PINK CONJUNCTIVAS, EYELID NO TRAUMA, ANTERIOR CHAMBER WITH ARCUS SENILIS. EARS: PINNAS INTACT AND NO SIGNS OF TRAUMA OR ERYTHEMA EAR CANALS CLEAR AND NO DISCHARGE TM NO ERYTHEMA NOSE: NO DISCHARGE, NO BLEEDING. OROPHARYNX: MOUTH NORMAL, TONGUE PINK, PHARYNX CLEAR,NO ERYTHEMA, TONSILS NO EXUDATES, NO ABSCESSES NOTED, MUCOUS MEMBRANE MOIST NECK: SUPPLE, NON-TENDER, NO THYROMEGALY, NO MASSES, NO JVD, NO BRUITS BREAST:DEFERRED CHEST: CHEST WALL TENDERNESS TO LEFT UPPER CHEST. THIS REPRODUCES PAIN, NO CREPITUS, NO PARADOXICAL MOVEMENT, NO RETRACTIONS LUNGS:CLEAR, WELL-VENTILATED, SYMMETRIC, NO RALES, NO WHEEZING, NO RHONCHI, NO STRIDOR, GOOD BREATH SOUNDS BILATERALLY HEART: REGULAR RATE, REGULAR RHYTHM, NO MURMUR, NO GALLOPS VASCULAR: NO PERIPHERAL EDEMA, ABDOMEN: SOFT, POSITIVE BOWEL SOUNDS, NONDISTENDED, NO GUARDING, NONTENDER, NO REBOUND, NO MASSES NO HEPATOMEGALY, NO SPLENOMEGALY, NO BERRIOS'S SIGN, NO HERNIAS. RECTAL: DEFERRED GENITAL: DEFERRED NEUROLOGICAL: NORMAL SPEECH, MOTOR FUNCTION INTACT, SENSORY FUNCTION INTACT MUSCULOSKELETAL: NECK NONTENDER, FULL RANGE OF MOTION, BACK NONTENDER, FULL RANGE OF MOTION, EXTREMITIES: NONTENDER, FULL RANGE OF MOTION SKIN: COLOR PINK, DRY, NO TURGOR, NO RASH, NO LACERATIONS, NO ABRASIONS, NO CONTUSIONS. LYMPHATIC: DEFERRED Results (Laboratory/Radiology) Laboratory/Radiology Laboratory Tests Test 10/13/24 11:24 10/13/24 11:51 White Blood Count 2.1 K/uL (4.8-10.8) L Red Blood Count 4.09 MIL/uL (4.00-5.50) Hemoglobin 10.8 g/dL (12.0-16.0) L Hematocrit 34.5 % (36-48) L Mean Corpuscular Volume 84.4 fL (79-99) Mean Corpuscular Hemoglobin 26.4 pg (27.0-33.0) L Mean Corpuscular Hemoglobin Concent 31.3 g/dL (32.0-36.0) L Red Cell Distribution Width 17.2 % (11.0-15.5) H Platelet Count 28 K/uL (130-400) L Mean Platelet Volume fL (7.5-10.5) Immature Granulocyte % (Auto) 0.5 % (0-1) Neutrophils (%) (Auto) 65.6 % (40.0-77.0) Lymphocytes (%) (Auto) 18.4 % (21.0-51.0) L Monocytes (%) (Auto) 12.1 % (3.0-13.0) Eosinophils (%) (Auto) 2.9 % (0.0-8.0) Basophils (%) (Auto) 0.5 % (0.0-5.0) Neutrophils # (Auto) 1.4 K/uL (1.8-7.7) L Lymphocytes # (Auto) 0.4 K/uL (1.0-4.8) L Monocytes # (Auto) 0.3 K/uL (0.1-1.0) Eosinophils # (Auto) 0.06 K/uL (0.00-0.70) Basophils # (Auto) 0.01 K/uL (0.00-0.20) Absolute Immature Granulocyte (auto 0.01 K/uL (0-1) Segmented Neutrophils % 56 % (40-70) Band Neutrophils % 18 % (0-2) H Lymphocytes % (Manual) 15 % (22-44) L Monocytes % (Manual) 7 % (2-9) Eosinophils % (Manual) 4 % (1-6) Nucleated Red Blood Cells 0.0 % (0.0-0.19) Differential Comment MANUAL DIFFERENTIAL White Cell Morphology Comment CONSISTENT W/DIFF Platelet Morphology Comment MARKED DEC Red Blood Cell Morphology See comments Sodium Level 133 mmol/L (136-145) L Potassium Level 3.7 mmol/L (3.5-5.1) Chloride Level 100 mmol/L (101-111) L Carbon Dioxide Level 30 mmol/L (21-32) Blood Urea Nitrogen 9 mg/dL (7-18) Creatinine 0.7 mg/dL (0.5-1.0) Glomerular Filtration Rate Calc 102 mL/min (>90) Random Glucose 190 mg/dL (70-105) H Total Calcium 8.0 mg/dL (8.5-10.1) L Total Creatine Kinase 255 U/L (21-232) H B-Type Natriuretic Peptide 23 pg/mL (0-100) Influenza Type A Antigen Negative For Type A Influenza Type B Antigen Negative For Type B SARS-CoV-2 Antigen (Rapid) PRESUMPTIVE NEGATIVE Troponin I < 0.05 ng/mL (0.00-0.05) CHEST 1VW REASON: CHEST PAIN COMPARISON: 09/25/2024 FINDINGS: There is mild cardiomegaly. There is borderline central vascular congestion. There are no pleural effusions. There are no focal infiltrates. IMPRESSION: 1. Mild cardiomegaly, unchanged. 2. There may be mild pulmonary vascular congesti Labs Reviewed?: Yes EKG Comment: SINUS RHYTHM/HEART RATE 79/LEFT VENTRICULAR HYPERTROPHY/AXIS NORMAL ED Course ED Course Orders Procedure Category Date Status Time Vital Signs Per CPOE 10/13/24 Transmitted Routine 11:12 B-Type Natriuretic LAB 10/13/24 Complete Peptide 11:12 Chest 1vw RAD 10/13/24 Resulted 11:12 12 Lead Ekg Tracing- EKG 10/13/24 Logged Technical 11:12 Oxygen By Nc/Pulse Ox CPOE 10/13/24 Transmitted 11:12 Maintain Iv CPOE 10/13/24 Transmitted 11:12 Iv Insertion CPOE 12/22/24 Transmitted 11:12 Cardiac Monitoring CPOE 10/13/24 Transmitted 11:12 Pulse Oximetry With CPOE 10/13/24 Transmitted Vs And Prn 11:12 Cbc With Differential LAB 10/13/24 Complete 11:12 Activity: Br W/Brp CPOE 10/13/24 Transmitted With Assist 11:12 Creatine Kinase, Total LAB 10/13/24 Complete 11:12 Urinalysis Profile LAB 10/13/24 Logged 11:12 Troponin Poc Order LAB 10/13/24 Complete Only 11:12 Bedside Troponin-I LAB.ER 10/13/24 In Process (Poc) 11:12 Basic Metabolic Panel LAB 10/13/24 Complete 11:12 Influenza Type A & B, LAB 10/13/24 Complete Rapid 11:21 Covid19 (Sars Antigen LAB 10/13/24 Complete Rapid) 11:21 Manual Differential LAB 10/13/24 Complete 11:24 Vital Signs Date Time Temp Pulse Resp B/P (MAP) Pulse Ox O2 Delivery O2 Flow Rate FiO2 10/13/24 11:11 98.6 78 16 135/66 96 Room Air* 0 21 10/13/24 11:11 98.6 78 16 135/66 96 Room Air 0 FOURTEEN 10, PATIENT HAS NEGATIVE WORKUP EXCEPT FOR COSTOCHONDRITIS AND DIABETES EXACERBATION. SHE WILL BE DISCHARGED HOME AFTER GIVING HER SOLU-MEDROL AND TORADOL. SHE STATES SHE WILL FOLLOW UP WITH HER PRIMARY CARE DOCTOR IN THE NEXT 2-3 DAYS NEEDED. HEART Score Response (Comments) Value EKG: Repolarization changes 1 Age: 45-65yrs (+1) 1 Risk Factors: 1-2 risk factors (+1) 1 Initial Troponin: Normal limit (0) 0 Total 3 Medical Decision Making MDM MDM: DIFFERENTIAL DIAGNOSIS: ACS/AMI/COSTOCHONDRITIS/PNEUMONIA/BRONCHITIS/ELECTROLYTE IMBALANCE/DEHYDRATION/SARS COVID RATIONALE: TESTS CONSIDERED AND ORDERED SECONDARY TO SHARED DECISION MAKING INCLUDE: EKG/LABS/RADIOLOGY PREVIOUS OUTSIDE RECORDS REVIEWED: OLD ER VISITS. REVIEWED RISK OF COMPLICATION AND/OR MORBIDITY OR MORTALITY OF PATIENT MANAGEMENT: NONE MEDICATIONS-PER MEDICATION RECONCILIATION SEE NURSE'S NOTES NEED FOR HOSPITALIZATION: PATIENT DOES NOT MEET CRITERIA FOR HOSPITALIZATION. NO NEED FOR EMERGENCY MAJOR/MINOR SURGERY: NO THERE ARE NO SOCIAL CONCERNS WITH THIS PATIENT. PRESCRIPTION DRUG MANAGEMENT MEDROL DOSEPAK/IBUPROFEN PRESCRIPTIONS WILL INCLUDE SYMPTOMATIC CARE PATIENT'S PRIOR EXTERNAL MEDICAL RECORDS FROM OTHER ER VISITS WERE REVIEWED BY ME INDICATED. PRIOR TESTING AND RESULTS FROM PREVIOUS VISITS WERE REVIEWED. PRIOR TESTS WERE TAKEN INTO ACCOUNT WITH MEDICAL DECISION MAKING AND RESOURCE UTILIZATION, INDEPENDENT HISTORIAN/HISTORIANS WERE USED TO OBTAIN COMPLETE MEDICAL HISTORY. I INDEPENDENTLY INTERPRETED THE TEST THAT WERE PERFORMED, RESULTS WERE REVIEWED BY ME AND CONSIDERED FINDINGS ON RADIOLOGY IF ORDERED. MEDICAL MANAGEMENT AND EXAMINATION INTERPRETATION DISCUSSIONS WERE HAD BY ME WITH OTHER QUALIFIED HEALTHCARE PROFESSIONALS INDICATED FOR THE PATIENT'S CARE. DX & DISP Disposition: Discharge Departure Impression: Primary Impression: Acute costochondritis Additional Impressions: Autoimmune pancytopenia, Uncontrolled diabetes mellitus with hyperglycemia Condition: Stable Scripts Ibuprofen (Ibuprofen 800 mg Tab) 800 Mg Tab 800 MG PO Q8H PRN for fever or pain, #30 TAB 0 Refills Prov: OSMIN LYNCH NP 10/13/24 Additional Instructions: FOLLOW-UP WITH PRIMARY CARE PROVIDER IN 1 TO 2 DAYS. TAKE MEDICATIONS DIRECTED HERE IN THE EMERGENCY ROOM. OKAY TO CONTINUE HOME MEDICATIONS UNLESS OTHERWISE DISCUSSED DURING YOUR VISIT IN THE EMERGENCY ROOM TODAY. RETURN TO YOUR NEAREST EMERGENCY ROOM IF SYMPTOMS WORSEN OR IF THERE IS NO IMPROVEMENT. C ALL 911 IF YOU NEED IMMEDIATE ASSISTANCE. TAKE TYLENOL OR MOTRIN [id number] NEEDED AND IF NO CONTRAINDICATIONS ARE PRESENT. INCREASE ORAL HYDRATION. A WOUND CULTURE OR URINE CULTURE WAS ORDERED HERE IN THE EMERGENCY ROOM DEPARTMENT PLEASE FOLLOW-UP WITH PRIMARY CARE PROVIDER AND ADVISE THEM TO GET REPEAT PORTS FROM OUR FACILITY. IF YOU HAD ANY MANUEL WRAP/SPLINTS THAT WERE APPLIED HERE, PLEASE DO NOT REMOVE THEM UNTIL YOU SEE YOUR PRIMARY CARE OR SPECIALTY. RESUME YOUR USE OF PREDNISONE AT HOME FROM YOUR ONCOLOGIST. TAKE IBUPROFEN EVERY8 HOURS WITH FOOD FOR THE NEXT THREE DAYS. SEE YOUR PRIMARY CARE DOCTOR FOR FOLLOW UP. Referrals: PAT CAN MD (PCP) Time of Disposition: 14:12 I have reviewed the case, and I agree with, Diagnosis and Plan OSMIN LYNCH NP Oct 13, 2024 11:20
[2024-10-13 11:40] LABS: BASOPHILS # (AUTO) 0.01 K/uL (0.00-0.20); BASOPHILS % (AUTO) 0.5 % (0.0-5.0); EOSINOPHILS # (AUTO) 0.06 K/uL (0.00-0.70); EOSINOPHILS % (AUTO) 2.9 % (0.0-8.0); HEMATOCRIT 34.5 % (36-48); IMMATURE GRANULOCYTE ABSOLUTE 0.01 K/uL (0-1); LYMPHOCYTES # (AUTO) 0.4 K/uL (1.0-4.8); LYMPHOCYTES % (AUTO) 18.4 % (21.0-51.0); MEAN CORPUSCULAR HEMOGLOBIN 26.4 pg (27.0-33.0); MEAN CORPUSCULAR HGB CONC 31.3 g/dL (32.0-36.0); MEAN CORPUSCULAR VOLUME 84.4 fL (79-99); MONOCYTES # (AUTO) 0.3 K/uL (0.1-1.0); MONOCYTES % (AUTO) 12.1 % (3.0-13.0); NEUTROPHILS # (AUTO) 1.4 K/uL (1.8-7.7); NEUTROPHILS % (AUTO) 65.6 % (40.0-77.0); PLATELET COUNT (AUTO) 28 K/uL (130-400); RED BLOOD CELL COUNT(AUTO) 4.09 MIL/uL (4.00-5.50); RED CELL DISTRIBUTION WIDTH 17.2 % (11.0-15.5); WHITE BLOOD COUNT (AUTO) 2.1 K/uL (4.8-10.8)
[2024-10-13 11:49] LABS: CREATININE 0.7 mg/dL (0.5-1.0); POTASSIUM 3.7 mmol/L (3.5-5.1)
[2024-10-13 12:04] LABS: B-TYPE NATRIURETIC PEPTIDE 23 pg/mL (0-100)
[2024-10-13 12:12] LABS: BAND NEUTROPHILS % (MANUAL) 18 % (0-2); EOSINOPHILS % (MANUAL) 4 % (1-6); LYMPHOCYTES % (MANUAL) 15 % (22-44); MAN.DIFF COMMENT-IMPRESSION MANUAL DIFFERENTIAL; MONOCYTES % (MANUAL) 7 % (2-9); SEGMENTED NEUTROPHILS % 56 % (40-70); TOTAL CELLS COUNTED 100
[2024-10-13 12:13] LABS: PLATELET MORPHOLOGY COMMENT MARKED DEC; WBC MORPHOLOGY CONSISTENT W/DIFF
[2024-10-13 12:14] LABS: COVID19 (SARS ANTIGEN RAPID) PRESUMPTIVE NEGATIVE (NEGATIVE); INFLUENZA TYPE A Negative For Type A (NEGATIVE); INFLUENZA TYPE B Negative For Type B (NEGATIVE)
--- NOTE | 2024-10-13 13:09 | HMCIMG ---
CHEST 1VW REASON: CHEST PAIN COMPARISON: 09/25/2024 FINDINGS: There is mild cardiomegaly. There is borderline central vascular congestion. There are no pleural effusions. There are no focal infiltrates. IMPRESSION: 1. Mild cardiomegaly, unchanged. 2. There may be mild pulmonary vascular congestion.
[2024-10-13] MEDS ORDERED: IBUP-2077 PO (14:13)
[2024-10-13 14:22] VITALS: BP 142/71; PULSE 65; RESP 16; TEMP 98.6; O2SAT 97
[2024-10-13] MEDS: Solu-medROL 125MG VIAL IVP ONE (14:30)
[2024-10-13] MEDS: ketOROlac 30MG VIAL (30MG/ML) IVP ONE (14:30)
--- NOTE | 2024-10-14 05:16 | EKG ---
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
== END 2024-10-13 14:54 | disposition home or self-care (01) ==
LOC: EDH 11:11
DX: M94.0 Chondrocostal junction syndrome [Tietze] (principal); D61.818 Other pancytopenia; E11.65 Type 2 diabetes mellitus with hyperglycemia; E03.9 Hypothyroidism, unspecified; E78.00 Pure hypercholesterolemia, unspecified; I10 Essential (primary) hypertension; Z79.52 Long term (current) use of systemic steroids; Z79.890 Hormone replacement therapy; Z79.899 Other long term (current) drug therapy; Z90.49 Acquired absence of other specified parts of digestive tract; Z98.51 Tubal ligation status; Z20.822 Contact with and (suspected) exposure to COVID-19
CPT/HCPCS: 99284; 96374; 71045; 96375; 87426; 82550; 84484; 80048; 83880; 85025; 87804 ×2; 36415; 93005; J2919; J1885

== ENCOUNTER 2024-10-20 22:45 | Emergency (ER) | payer BC ==
[~2024-10-20] VITALS: Ht 162.6 cm; Wt 129.7 kg
[~2024-10-20 22:45] MED LIST changes: +IBUP-2077 PO
[2024-10-20 22:47] VITALS: TEMP 99.1
--- NOTE | 2024-10-20 22:50 | NUR ---
UA CUP PROVIDED
--- NOTE | 2024-10-20 22:55 | EKG ---
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
[2024-10-20 23:14] LABS: BASOPHILS # (AUTO) 0.01 K/uL (0.00-0.20); BASOPHILS % (AUTO) 0.5 % (0.0-5.0); EOSINOPHILS # (AUTO) 0.15 K/uL (0.00-0.70); EOSINOPHILS % (AUTO) 6.9 % (0.0-8.0); HEMATOCRIT 34.4 % (36-48); IMMATURE GRANULOCYTE ABSOLUTE 0.01 K/uL (0-1); LYMPHOCYTES # (AUTO) 0.6 K/uL (1.0-4.8); LYMPHOCYTES % (AUTO) 25.9 % (21.0-51.0); MEAN CORPUSCULAR HEMOGLOBIN 25.8 pg (27.0-33.0); MEAN CORPUSCULAR HGB CONC 29.9 g/dL (32.0-36.0); MEAN CORPUSCULAR VOLUME 86.2 fL (79-99); MONOCYTES # (AUTO) 0.3 K/uL (0.1-1.0); MONOCYTES % (AUTO) 13.4 % (3.0-13.0); NEUTROPHILS # (AUTO) 1.1 K/uL (1.8-7.7); NEUTROPHILS % (AUTO) 52.8 % (40.0-77.0); PLATELET COUNT (AUTO) 69 K/uL (130-400); RED BLOOD CELL COUNT(AUTO) 3.99 MIL/uL (4.00-5.50); RED CELL DISTRIBUTION WIDTH 17.2 % (11.0-15.5); WHITE BLOOD COUNT (AUTO) 2.2 K/uL (4.8-10.8)
[2024-10-20 23:23] LABS: CARBON DIOXIDE 32 mmol/L (21-32); CHLORIDE 103 mmol/L (101-111); CREATININE 0.7 mg/dL (0.5-1.0); GLOMERULAR FILTR. RATE CALC 102 mL/min (>90); GLUCOSE,RANDOM 387 mg/dL (70-105); POTASSIUM 4.2 mmol/L (3.5-5.1); SODIUM SERUM 138 mmol/L (136-145); UREA NITROGEN, BLOOD 6 mg/dL (7-18)
[2024-10-20 23:31] LABS: ALANINE AMINOTRANSFERASE 76 U/L (12-78); ALBUMIN 2.6 g/dL (3.5-5.0); ASPARTATE AMINOTRANSFERASE 58 U/L (10-37); BILIRUBIN,DIRECT 0.3 mg/dL (0.0-0.3); BILIRUBIN,TOTAL 0.9 mg/dL (0.2-1.0); CREATINE KINASE, TOTAL 118 U/L (21-232); TOTAL PROTEIN, SERUM 6.9 g/dL (6.0-8.3)
[2024-10-20 23:46] LABS: APPEARANCE,URINE CLEAR (CLEAR); BILIRUBIN,URINE NEGATIVE (NEGATIVE); COLOR,URINE LIGHT-YELLOW (YELLOW); GLUCOSE, URINE (UA) >=1000 mg/dL (NEGATIVE); KETONES,URINE NEGATIVE (NEGATIVE); LEUKOCYTE ESTERASE ,URINE NEGATIVE Leu/uL (NEGATIVE); NITRATE,URINE NEGATIVE (NEGATIVE); OCCULT BLOOD,URINE NEGATIVE (NEGATIVE); PROTEIN,URINE NEGATIVE (NEGATIVE); UROBILINOGEN,URINE 0.2 mg/dL (0.2-1.0)
[2024-10-20 23:47] LABS: ADD UA MICROSCOPIC YES
[2024-10-21 00:11] LABS: MUCUS,URINE RARE LPF (None Seen); SQUAMOUS EPITHELIAL CELL,UR RARE /HPF (0-2)
[2024-10-21] MEDS ORDERED: IOHEXOL-350 75 ML VIAL IV ONE (00:18)
[2024-10-21 00:27] LABS: EOSINOPHILS % (MANUAL) 9 % (1-6); LYMPHOCYTES % (MANUAL) 40 % (22-44); MAN.DIFF COMMENT-IMPRESSION MANUAL DIFFERENTIAL; SEGMENTED NEUTROPHILS % 51 % (40-70); TOTAL CELLS COUNTED 100
[2024-10-21 00:28] LABS: PLATELET MORPHOLOGY COMMENT DECREASED; WBC MORPHOLOGY NORMAL
[2024-10-21] MEDS: PANTOPrazole 40 MG/VIAL IVP ONE (01:06)
[2024-10-21] MEDS: ondanSETRON 4MG INJ IVP ONE (01:07)
[2024-10-21] MEDS: morPHINE 4 MG SYG IVP ONE (01:08)
[2024-10-21] MEDS: 0.9%NACL 1000ML 1,000 ML IV ONE (01:10)
--- NOTE | 2024-10-21 01:28 | HMCIMG ---
CT ABDOMEN/PELVIS W/CONTRAST HISTORY: Abdominal pain COMPARISON: 11/04/2023 TECHNIQUE: Multiple sequential axial images of the abdomen and pelvis were obtained from the dome of the diaphragm through symphysis pubis. Patient was given 75 cc of Omnipaque through intravenous route. Oral contrast was not given. FINDINGS: No pleural effusion is seen bilaterally. There is no evidence of parenchymal disease or pulmonary nodule of the visualized lower lungs. Degenerative changes of the thoracolumbar spine are present. The heart is not enlarged. Cirrhotic changes of the liver are noted. Liver measured 12 cm. Spleen is enlarged measuring 15 cm. Postcholecystectomy changes are seen. There are abdominal varices. Adrenal glands and pancreas are unremarkable. There is no evidence of hydronephrosis bilaterally. No evidence of renal stone is seen. Fecal material is seen in the colon. There are normal size retroperitoneal and mesenteric lymph nodes. There is ascites. Atherosclerotic changes are present. Pelvic sidewalls are symmetric bilaterally. Bladder is well distended without wall thickening. There is left inguinal hernia with fat and fluid content. IMPRESSION: 1. Cirrhotic liver with enlarged spleen and abdominal varices and ascites suggestive of portal hypertension. CT was performed with one or more following dose reduction techniques: automated exposure control, adjustment of the mA and kv according to patient's size, or use of a iterative reconstruction technique.
[2024-10-21] MEDS: INSULIN humuLIN R 100 UNIT/ML 3ML IV ONE (01:29)
[2024-10-21] MEDS ORDERED: INSULIN humuLIN R 100 UNIT/ML 3ML IV ONE (01:30)
--- NOTE | 2024-10-21 01:45 | ERN ---
ED Note History of Present Illness Stated Complaint: ABD PAIN Chief Complaint: Abdominal Pain Time Seen by MD: 23:04 Time Seen by Midlevel: 23:04 Dictation: The patient is a 54-year-old female with a history of lupus, diabetes, hypertension presents to the emergency department with complaints of left upper quadrant pain onset a week ago. Patient denies any nausea, vomiting, diarrhea, constipation, fevers. Patient reports pain is worse with eating. Allergies: Coded Allergies: No Known Allergies (Unverified Allergy, Unknown, 08/26/14) Home Meds Active Scripts Ibuprofen (Ibuprofen 800 mg Tab) 800 Mg Tab, 800 MG PO Q8H PRN for fever or pain, #30 TAB 0 Refills Prov:OSMIN LYNCH EMAIL ENGINEER 10/13/24 Prednisone (Deltasone/Orasone [Bulk]) 20 Mg Tab, 20 MG PO BID for 30 Days, #60 TAB Prov:ZHANNA SANCHEZ NP 09/29/24 Levothyroxine Sodium (Synthroid 125 Mcg Tab) 125 Mcg Tablet, 125 MCG PO DAILY@0630 for 30 Days, #30 TAB Prov:ZHANNA SANCHEZ NP 09/29/24 Reported Medications Prednisone (Prednisone) 10 Mg Tab.ds.pk, 30 MG PO DAILY 09/25/24 Gabapentin (Gabapentin) 100 Mg Capsule, 300 MG PO BID, CAP 09/25/24 Ibuprofen (Ibuprofen 200 mg Tablet) 200 Mg Tablet, 600 MG PO Q6HPRN PRN for PAIN, TAB 09/25/24 Hydroxychloroquine Sulfate (Hydroxychloroquine Sulfate) 200 Mg Tablet, 200 MG PO BID, TAB 09/25/24 Insulin Lispro (Insulin Lispro) 100 Unit/Ml Vial, 50 UNIT SQ AM, VIAL 09/25/24 Venlafaxine HCl (Venlafaxine HCl ER) 37.5 Mg Cap.er.24h, 1 CAP PO DAILY 09/25/24 Metoprolol Succinate (Metoprolol Succinate) 50 Mg Tab.er.24h, 50 MG PO AM, TAB 11/03/23 Levothyroxine Sodium (Levothyroxine) 25 Mcg Capsule, 25 MCG PO AM, CAP 11/03/23 Atorvastatin Calcium (Atorvastatin Calcium) 20 Mg Tablet, 20 MG PO HS, TAB 11/03/23 Pramipexole Di-HCl (Pramipexole Dihydrochloride) 0.5 Mg Tablet, 0.5 MG PO HS, TAB 11/03/23 Past Medical History Past Medical History: Angina, Diabetes-Type II, High Cholesterol, Heart Disease, Hypertension, Hypothyroid Additional Past Medical Hx: LUPUS, MRSA, COSTOCHONDRITIS, PANCYTOPENIA Surgical History: Cholecystectomy, Surgical History Other: TUBAL LIGATION Family History: CAD Social History: Negative, Lives with family History: Not Applicable : 6 Para: 6 Aborts: 0 RN Note Reviewed/Agreed w/PFSH: Yes Review of System Dictation Constitutional: Negative for fever,chills, and weight loss Eyes: Negative for injury, pain,redness, and discharge ENT: Negative for injury,pain or swelling Cardiovascular: Negative for chest pain, palpitations, and edema Respiratory: Negative for shortness of breath, cough, and wheezing, Abdomen/GI: Negative for nausea, vomiting, diarrhea, and constipation sent for left upper abdominal pain Back: Negative for injury and pain : Negative for injury, bleeding and discharge MS/Extremity: Negative for injury and deformity Skin: Negative for rash, and discoloration Neuro: Negative for headache, weakness, numbness, tingling, and seizure Psych: Negative for suicide ideation, homicidal ideation, and hallucinations Initial Vital Sign VS Vital Signs Date Time Temp Pulse Resp B/P (MAP) Pulse Ox O2 Delivery O2 Flow Rate FiO2 10/20/24 22:47 99.1 98 20 124/58 98 Room Air 10/21/24 00:35 0 21 Physical Exam Dictation Vital Signs reviewed General Appearance: Alert, oriented x 3, no acute distress, well developed, nourished. Head and Face: non-traumatic. Eyes: PERRL, pink conjunctivas, eyelid no trauma, anterior chamber with arcus senilis. Ears: Pinnas intact and no signs of trauma or erythema ear canals clear and no discharge TM no erythema Nose: No discharge, no bleeding. Oropharynx: Mouth normal, tongue pink. pharynx clear,no erythema, tonsils no exudates, no abscesses noted, mucous membrane moist Neck: Supple, non-tender, no thyromegaly, no masses, no JVD, no bruits Breast:Deferred Chest:No tenderness, no crepitus, no paradoxical movement, no retractions Lungs:Clear, well-ventilated, symmetric, no rales, no wheezing, no rhonchi, no stridor, good breath sounds bilaterally Heart: Regular rate, regular rhythm, no murmur, no gallops Vascular: no peripheral edema, Abdomen: Soft, positive bowel sounds, nondistended, no guarding, nontender, no rebound, no masses no hepatomegaly, no splenomegaly, no Mercado's sign, no hernias. Rectal: Deferred Genital: Deferred Neurological: Normal speech, motor function intact, sensory function intact Musculoskeletal: Neck nontender, full range of motion, back nontender, full range of motion, Extremities: nontender, full range of motion Skin: Color pink, dry, no turgor, no rash, no lacerations, no abrasions, no contusions. Lymphatic: Deferred Results (Laboratory/Radiology) Laboratory/Radiology Laboratory Tests Test 10/20/24 22:50 10/20/24 22:59 Urine Color LIGHT-YELLOW (YELLOW) Urine Appearance CLEAR (CLEAR) Urine pH 6.0 (5.0-8.0) Urine Specific [place] 1.040 (1.001-1.031) Urine Protein NEGATIVE mg/dL (NEGATIVE) Urine Glucose (UA) >=1000 mg/dL (NEGATIVE) H Urine Ketones NEGATIVE mg/dL (NEGATIVE) Urine Occult Blood NEGATIVE (NEGATIVE) Urine Nitrate NEGATIVE (NEGATIVE) Urine Bilirubin NEGATIVE mg/dL (NEGATIVE) Urine Urobilinogen 0.2 mg/dL (0.2-1.0) Urine Leukocyte Esterase NEGATIVE Que/uL Urine RBC 2-5 /HPF (0-1) H Urine WBC 2-5 /HPF (0-1) H Urine Squamous Epithelial Cells RARE /HPF (0-2) Urine Bacteria None /HPF (None Seen) White Blood Count 2.2 K/uL (4.8-10.8) L Red Blood Count 3.99 MIL/uL (4.00-5.50) L Hemoglobin 10.3 g/dL (12.0-16.0) L Hematocrit 34.4 % (36-48) L Mean Corpuscular Volume 86.2 fL (79-99) Mean Corpuscular Hemoglobin 25.8 pg (27.0-33.0) L Mean Corpuscular Hemoglobin Concent 29.9 g/dL (32.0-36.0) L Red Cell Distribution Width 17.2 % (11.0-15.5) H Platelet Count 69 K/uL (130-400) L Mean Platelet Volume 11.0 fL (7.5-10.5) H Immature Granulocyte % (Auto) 0.5 % (0-1) Neutrophils (%) (Auto) 52.8 % (40.0-77.0) Lymphocytes (%) (Auto) 25.9 % (21.0-51.0) Monocytes (%) (Auto) 13.4 % (3.0-13.0) H Eosinophils (%) (Auto) 6.9 % (0.0-8.0) Basophils (%) (Auto) 0.5 % (0.0-5.0) Neutrophils # (Auto) 1.1 K/uL (1.8-7.7) L Lymphocytes # (Auto) 0.6 K/uL (1.0-4.8) L Monocytes # (Auto) 0.3 K/uL (0.1-1.0) Eosinophils # (Auto) 0.15 K/uL (0.00-0.70) Basophils # (Auto) 0.01 K/uL (0.00-0.20) Absolute Immature Granulocyte (auto 0.01 K/uL (0-1) Segmented Neutrophils % 51 % (40-70) Lymphocytes % (Manual) 40 % (22-44) Eosinophils % (Manual) 9 % (1-6) H Nucleated Red Blood Cells 0.0 % (0.0-0.19) Differential Comment MANUAL DIFFERENTIAL White Cell Morphology Comment NORMAL Platelet Morphology Comment DECREASED Red Blood Cell Morphology See comments Sodium Level 138 mmol/L (136-145) Potassium Level 4.2 mmol/L (3.5-5.1) Chloride Level 103 mmol/L (101-111) Carbon Dioxide Level 32 mmol/L (21-32) Blood Urea Nitrogen 6 mg/dL (7-18) L Creatinine 0.7 mg/dL (0.5-1.0) Glomerular Filtration Rate Calc 102 mL/min (>90) Random Glucose 387 mg/dL (70-105) H Total Calcium 8.4 mg/dL (8.5-10.1) L Total Bilirubin 0.9 mg/dL (0.2-1.0) Direct Bilirubin 0.3 mg/dL (0.0-0.3) Aspartate Amino Transf (AST/SGOT) 58 U/L (10-37) H Alanine Aminotransferase (ALT/SGPT) 76 U/L (12-78) Alkaline Phosphatase 120 U/L (50-136) Total Creatine Kinase 118 U/L (21-232) # Troponin I High Sensitivity < 4.0 ng/L (4-50) L Total Protein 6.9 g/dL (6.0-8.3) Albumin 2.6 g/dL (3.5-5.0) L Lipase 64 U/L (16-77) REASON: left upper abd pain ORDERING PHYSICIAN: GISSELLE MARKS PROCEDURE: ABD PEL W - CT ABDOMEN/PELVIS W/CONTRAST CT ABDOMEN/PELVIS W/CONTRAST HISTORY: Abdominal pain COMPARISON: 11/04/2023 TECHNIQUE: Multiple sequential axial images of the abdomen and pelvis were obtained from the dome of the diaphragm through symphysis pubis. Patient was given 75 cc of Omnipaque through intravenous route. Oral contrast was not given. FINDINGS: No pleural effusion is seen bilaterally. There is no evidence of parenchymal disease or pulmonary nodule of the visualized lower lungs. Degenerative changes of the thoracolumbar spine are present. The heart is not enlarged. Cirrhotic changes of the liver are noted. Liver measured 12 cm. Spleen is enlarged measuring 15 cm. Postcholecystectomy changes are seen. There are abdominal varices. Adrenal glands and pancreas are unremarkable. There is no evidence of hydronephrosis bilaterally. No evidence of renal stone is seen. Fecal material is seen in the colon. There are normal size retroperitoneal and mesenteric lymph nodes. There is ascites. Atherosclerotic changes are present. Pelvic sidewalls are symmetric bilaterally. Bladder is well distended without wall thickening. There is left inguinal hernia with fat and fluid content. IMPRESSION: 1. Cirrhotic liver with enlarged spleen and abdominal varices and ascites suggestive of portal hypertension. Labs Reviewed?: Yes EKG: (+) rhythm EKG Comment: EKG 2253 ventricular rate 89, regular rate and rhythm, normal sinus rhythm, no STEMI ED Course ED Course Orders Procedure Category Date Status Time Vital Signs Per CPOE 10/20/24 Transmitted Routine 22:47 Saline Lock Iv CPOE 10/20/24 Transmitted 22:47 Cbc With Differential LAB 10/20/24 Complete 22:47 Lipase LAB 10/20/24 Complete 22:47 Urinalysis Profile LAB 10/20/24 Complete 22:47 12 Lead Ekg Tracing- EKG 10/20/24 Complete Technical 22:47 Chest 1vw RAD 10/20/24 Taken 22:47 Basic Metabolic Panel LAB 10/20/24 Complete 22:47 Hepatic Function Panel LAB 10/20/24 Complete 22:47 Cardiac Panel LAB 10/20/24 Complete 22:47 Manual Differential LAB 10/20/24 Complete 22:59 0.9%Nacl 1000ml (Ns PHA 10/21/24 Complete 1000ml) 00:00 Morphine 4mg Syg PHA 10/21/24 Complete (Morphine 4mg Syg) 00:00 Ondansetron 4mg Inj PHA 10/21/24 Complete (Zofran 4mg Inj) 00:00 Pantoprazole 40mg Inj PHA 10/21/24 Complete (Protonix 40mg Inj 00:00 Ct Abdomen/Pelvis CT 10/20/24 Resulted W/Contrast 23:32 Iohexol (Omnipaque) PHA 10/21/24 Complete 00:18 Insulin Regular, PHA 10/21/24 Complete Human 3ml (Humulin R 01:30 Insulin Regular, PHA 10/21/24 Complete Human 3ml (Humulin R 01:30 Current Medications Medications (Trade) Dose Ordered Sig/Roberth Route PRN Reason Start Time Stop Time Status Last Admin Dose Admin Insulin Human Regular (humuLIN R 100 UNIT/ML 3ML) 5 unit ONCE ONCE IV 10/21/24 01:30 10/21/24 01:31 DC 10/21/24 01:29 Insulin Human Regular (humuLIN R 100 UNIT/ML 3ML) 10 unit ONCE ONCE IV 10/21/24 01:30 10/21/24 01:23 DC Iohexol (Omnipaque) 75 ml STK-MED ONCE IV 10/21/24 00:18 10/21/24 00:19 DC Morphine Sulfate (morPHINE 4MG SYG) 4 mg ONCE ONCE IVP 10/21/24 00:00 10/21/24 00:01 DC 10/21/24 01:08 Ondansetron HCl (zoFRAN 4MG INJ) 4 mg ONCE ONCE IVP 10/21/24 00:00 10/21/24 00:01 DC 10/21/24 01:07 Pantoprazole Sodium (PROTonix 40MG INJ) 40 mg ONCE ONCE IVP 10/21/24 00:00 10/21/24 00:01 DC 10/21/24 01:06 Sodium Chloride 1,000 ml @ 0 mls/hr ONCE ONCE IV 10/21/24 00:00 10/21/24 00:01 DC 10/21/24 01:10 Vital Signs Date Time Temp Pulse Resp B/P (MAP) Pulse Ox O2 Delivery O2 Flow Rate FiO2 10/21/24 00:35 83 18 129/50 97 Room Air* 0 21 10/20/24 22:47 99.1 98 20 124/58 98 Room Air Medical Decision Making MDM The patient is a 54-year-old female with a history of lupus, diabetes, hyperte nsion presents to the emergency department with complaints of left upper quadrant pain onset a week ago. Patient denies any nausea, vomiting, diarrhea, constipation, fevers. Patient reports pain is worse with eating. CBC showed no leukocytosis, mild normocytic anemia, thrombocytopenia, elevated blood glucose, patient received IV fluids and insulin and glucose decreased to 200s. Patient in no DKA, no other electrolyte imbalance, urinalysis unremarkable. CT abdomen showed cirrhotic liver. Patient reports pain improvement. Continues in no distress. Will be discharged to follow up with PCP. Differential diagnosis: Gastritis, electrolyte imbalance, bowel obstruction, dehydration, ACS Need for hospitalization: Patient does not meet criteria for hospitalization. There are no social concerns with this patient. DX & DISP Disposition: Discharge Departure Impression: Primary Impression: Acute abdominal pain Additional Impressions: Uncontrolled diabetes mellitus with hyperglycemia, Thrombocytopenia, Anemia Condition: Stable Additional Instructions: FOLLOW-UP WITH PRIMARY CARE PROVIDER IN 1 TO 2 DAYS. TAKE MEDICATIONS DIRECTED HERE IN THE EMERGENCY ROOM. OKAY TO CONTINUE HOME MEDICATIONS UNLESS OTHERWISE DISCUSSED DURING YOUR VISIT IN THE EMERGENCY ROOM TODAY. RETURN TO YOUR NEAREST EMERGENCY ROOM IF SYMPTOMS WORSEN OR IF THERE IS NO IMPROVEMENT. C ALL 911 IF YOU NEED IMMEDIATE ASSISTANCE. TAKE TYLENOL OR MOTRIN [id number] NEEDED AND IF NO CONTRAINDICATIONS ARE PRESENT. INCREASE ORAL HYDRATION. A WOUND CULTURE OR URINE CULTURE WAS ORDERED HERE IN THE EMERGENCY ROOM DEPARTMENT PLEASE FOLLOW-UP WITH PRIMARY CARE PROVIDER AND ADVISE THEM TO GET REPEAT PORTS FROM OUR FACILITY. IF YOU HAD ANY MANUEL WRAP/SPLINTS THAT WERE APPLIED HERE, PLEASE DO NOT REMOVE THEM UNTIL YOU SEE YOUR PRIMARY CARE OR SPECIALTY. Referrals: CARLENE CAMARILLO MD (PCP) Time of Disposition: 02:05 I have reviewed the case, and I agree with, Diagnosis and Plan GISSELLE MARKS [facility] Oct 21, 2024 01:44
[2024-10-21 02:17] VITALS: BP 128/63; PULSE 76; RESP 18; O2SAT 95
--- NOTE | 2024-10-21 09:04 | HMCIMG ---
CHEST 1VW REASON: CHEST PAIN COMPARISON: 10/13/2024 FINDINGS: Single view of the chest was obtained. Lungs are clear. Heart size is normal. There is no pulmonary vascular congestion. Mediastinum and bony thorax appear unremarkable. IMPRESSION: 1. Normal single view chest x-ray.
== END 2024-10-21 02:32 | disposition home or self-care (01) ==
LOC: EDH 22:45
DX: R10.12 Left upper quadrant pain (principal); E11.65 Type 2 diabetes mellitus with hyperglycemia; D69.6 Thrombocytopenia, unspecified; D64.9 Anemia, unspecified; E03.9 Hypothyroidism, unspecified; E78.00 Pure hypercholesterolemia, unspecified; I10 Essential (primary) hypertension; Z79.52 Long term (current) use of systemic steroids; Z79.890 Hormone replacement therapy; Z79.899 Other long term (current) drug therapy; Z90.49 Acquired absence of other specified parts of digestive tract; Z98.51 Tubal ligation status
CPT/HCPCS: 99284; 74177; 71045; 82550; 80076; 84484; 80048; 83690; 85025; 82948; 81001; 36415; 93005; 96374; 96375; 96361; J1815; J7030; J2405; J2270; J2470; Q9967

== ENCOUNTER 2025-02-20 20:26 | Emergency (ER) | payer SELFPAY ==
[~2025-02-20] VITALS: Ht 162.6 cm; Wt 131.5 kg
[~2025-02-20 20:26] MED LIST changes: -LEVO25CA4 PO; +LEVO25CA5 PO
[2025-02-20 20:57] LABS: APPEARANCE,URINE TURBID (CLEAR); BILIRUBIN,URINE NEGATIVE (NEGATIVE); COLOR,URINE LIGHT-ORANGE (YELLOW); GLUCOSE, URINE (UA) TRACE mg/dL (NEGATIVE); KETONES,URINE 5 mg/dL (NEGATIVE); LEUKOCYTE ESTERASE ,URINE 500 Leu/uL (NEGATIVE); NITRATE,URINE NEGATIVE (NEGATIVE); OCCULT BLOOD,URINE LARGE (NEGATIVE); PROTEIN,URINE 50 mg/dL (NEGATIVE)
[2025-02-20 21:05] LABS: ADD UA MICROSCOPIC YES
[2025-02-20 21:06] LABS: MUCUS,URINE RARE LPF (None Seen); NON-SQUAMOUS EPITHELIAL CELL 3 /HPF (0-2); RBC,URINE >100 /HPF (0-1); SQUAMOUS EPITHELIAL CELL,UR RARE /HPF (0-2); WBC,URINE 26-50 /HPF (0-1)
--- NOTE | 2025-02-20 21:29 | ERN ---
ED Note History of Present Illness Stated Complaint: ABD PAIN Chief Complaint: Abdominal Pain Time Seen by MD: 20:29 Time Seen by Midlevel: 20:33 Dictation: 54-YEAR-OLD FEMALE WITH A HISTORY OF LUPUS, DIABETES, LIVER CIRRHOSIS COMING IN WITH COMPLAINTS OF LOWER ABDOMINAL PAIN FOR THE LAST COUPLE OF DAYS WITH THE VAGINAL BLEEDING. PATIENT STATES LAST YEAR SHE HAS A SAME PROBLEM SHE WAS PLACED ON DEPO BUT WHEN SHE FOLLOW UP WITH HER OBGYN THEY TOLD HER STOP IT. PATIENT STATES SHE HAD AN BLOOD UNTIL THREE DAYS AGO. Allergies: Coded Allergies: No Known Allergies (Unverified Allergy, Unknown, 08/26/14) Home Meds Active Scripts Ibuprofen (Ibuprofen 800 mg Tab) 800 Mg Tab, 800 MG PO Q8H PRN for fever or pain, #30 TAB 0 Refills Prov:OSMIN LYNCH GEODESIST 10/13/24 Prednisone (Deltasone/Orasone [Bulk]) 20 Mg Tab, 20 MG PO BID for 30 Days, #60 TAB Prov:ZHANNA SANCHEZ NP 09/29/24 Levothyroxine Sodium (Synthroid 125 Mcg Tab) 125 Mcg Tablet, 125 MCG PO DAILY@0630 for 30 Days, #30 TAB Prov:ZHANNA SANCHEZ NP 09/29/24 Reported Medications Prednisone (Prednisone) 10 Mg Tab.ds.pk, 30 MG PO DAILY 09/25/24 Gabapentin (Gabapentin) 100 Mg Capsule, 300 MG PO BID, CAP 09/25/24 Ibuprofen (Ibuprofen 200 mg Tablet) 200 Mg Tablet, 600 MG PO Q6HPRN PRN for PAIN, TAB 09/25/24 Hydroxychloroquine Sulfate (Hydroxychloroquine Sulfate) 200 Mg Tablet, 200 MG PO BID, TAB 09/25/24 Insulin Lispro (Insulin Lispro) 100 Unit/Ml Vial, 50 UNIT SQ AM, VIAL 09/25/24 Venlafaxine HCl (Venlafaxine HCl ER) 37.5 Mg Cap.er.24h, 1 CAP PO DAILY 09/25/24 Metoprolol Succinate (Metoprolol Succinate) 50 Mg Tab.er.24h, 50 MG PO AM, TAB 11/03/23 Levothyroxine Sodium (Levothyroxine) 25 Mcg Capsule, 25 MCG PO AM, CAP 11/03/23 Atorvastatin Calcium (Atorvastatin Calcium) 20 Mg Tablet, 20 MG PO HS, TAB 11/03/23 Pramipexole Di-HCl (Pramipexole Dihydrochloride) 0.5 Mg Tablet, 0.5 MG PO HS, T AB 11/03/23 Past Medical History Past Medical History: Angina, Diabetes-Type II, High Cholesterol, Heart Disease, Hypertension, Hypothyroid Additional Past Medical Hx: LUPUS, MRSA, COSTOCHONDRITIS, PANCYTOPENIA Surgical History: Cholecystectomy, Surgical History Other: TUBAL LIGATION Family History: CAD Social History: Negative, Lives with family History: Not Applicable : 6 Para: 6 Aborts: 0 Review of System Dictation CONSTITUTIONAL: NEGATIVE FOR FEVER,CHILLS, AND WEIGHT LOSS EYES: NEGATIVE FOR INJURY, PAIN,REDNESS, AND DISCHARGE ENT: NEGATIVE FOR INJURY,PAIN OR SWELLING CARDIOVASCULAR: NEGATIVE FOR CHEST PAIN, PALPITATIONS, AND EDEMA RESPIRATORY: NEGATIVE FOR SHORTNESS OF BREATH, COUGH, AND WHEEZING, ABDOMEN/GI: COMPLAINING OF LOWER ABDOMINAL PAIN, NO NAUSEA, NO VOMITING, NO DIARRHEA, AND NO CONSTIPATION BACK: NEGATIVE FOR INJURY AND PAIN : NEGATIVE FOR INJURY, COMPLAINING OF VAGINAL BLEEDING MS/EXTREMITY: NEGATIVE FOR INJURY AND DEFORMITY SKIN: NEGATIVE FOR RASH, AND DISCOLORATION NEURO: NEGATIVE FOR HEADACHE, WEAKNESS, NUMBNESS, TINGLING, AND SEIZURE PSYCH: NEGATIVE FOR SUICIDE IDEATION, HOMICIDAL IDEATION, AND HALLUCINATIONS Review of Systems: was completed Initial Vital Sign VS Vital Signs Date Time Temp Pulse Resp B/P (MAP) Pulse Ox O2 Delivery O2 Flow Rate FiO2 02/20/25 20:28 99.3 88 20 134/65 98 Room Air Physical Exam Dictation GENERAL: AWAKE, ALERT, NAD HEAD/FACE: NORMOCEPHALIC, ATRAUMATIC EYES: PERRL, EOMI, VISION AT BASELINE ENT: ORAL CAVITY CLEAR, TMS CLEAR, NO SIGNS OF INFECTION NECK: TRACHEA MIDLINE, SUPPLE, NO NUCHAL RIGIDITY CARDIOVASCULAR: RRR, NORMAL S1/S2, NO MRGS, NO JVD RESPIRATORY: CTAB, NO RESPIRATORY DISTRESS, NO RALES OR WHEEZES ABDOMEN: SOFT, NON-TENDER, NON-DISTENDED, NORMAL BOWEL SOUNDS, NO GUARDING OR REBOUND. SKIN: WARM, DRY, NORMAL TURGOR, NO RASH MS/EXTREMITY: PULSES EQUAL, NO CYANOSIS, NEUROVASCULAR INTACT, FROM NEURO: COAX4, GCS 15, STRENGTH 5/5, CN 2-12 INTACT, NORMAL CEREBELLAR EXAM, NORMAL GAIT, PSYCH: NORMAL BEHAVIOR, MOOD, AND AFFECT NORMAL Results (Laboratory/Radiology) Laboratory/Radiology Laboratory Tests Test 02/20/25 20:50 02/20/25 21:06 Urine Color LIGHT-ORANGE (YELLOW) Urine Appearance TURBID (CLEAR) Urine pH 6.0 (5.0-8.0) Urine Specific [place] 1.027 (1.001-1.031) Urine Protein 50 mg/dL (NEGATIVE) H Urine Glucose (UA) TRACE mg/dL (NEGATIVE) H Urine Ketones 5 mg/dL (NEGATIVE) H Urine Occult Blood LARGE (NEGATIVE) H Urine Nitrate NEGATIVE (NEGATIVE) Urine Bilirubin NEGATIVE mg/dL (NEGATIVE) Urine Urobilinogen 4.0 mg/dL (0.2-1.0) H Urine Leukocyte Esterase 500 Que/uL (NEGATIVE) H Urine RBC >100 /HPF (0-1) H Urine WBC 26-50 /HPF (0-1) H Urine Squamous Epithelial Cells RARE /HPF (0-2) Urine Non-Squamous Epithelial Cells 3 /HPF (0-2) Urine Bacteria None /HPF (None Seen) White Blood Count 2.5 K/uL (4.8-10.8) L Red Blood Count 4.18 MIL/uL (4.00-5.50) Hemoglobin 10.3 g/dL (12.0-16.0) L Hematocrit 34.1 % (36-48) L Mean Corpuscular Volume 81.6 fL (79-99) Mean Corpuscular Hemoglobin 24.6 pg (27.0-33.0) L Mean Corpuscular Hemoglobin Concent 30.2 g/dL (32.0-36.0) L Red Cell Distribution Width 18.2 % (11.0-15.5) H Platelet Count 44 K/uL (130-400) L Mean Platelet Volume 10.2 fL (7.5-10.5) Immature Granulocyte % (Auto) 0.0 % (0-1) Neutrophils (%) (Auto) 57.3 % (40.0-77.0) Lymphocytes (%) (Auto) 28.7 % (21.0-51.0) Monocytes (%) (Auto) 9.2 % (3.0-13.0) Eosinophils (%) (Auto) 4.4 % (0.0-8.0) Basophils (%) (Auto) 0.4 % (0.0-5.0) Neutrophils # (Auto) 1.4 K/uL (1.8-7.7) L Lymphocytes # (Auto) 0.7 K/uL (1.0-4.8) L Monocytes # (Auto) 0.2 K/uL (0.1-1.0) Eosinophils # (Auto) 0.11 K/uL (0.00-0.70) Basophils # (Auto) 0.01 K/uL (0.00-0.20) Absolute Immature Granulocyte (auto 0.00 K/uL (0-1) Segmented Neutrophils % 57 % (40-70) Band Neutrophils % 6 % (0-2) H Lymphocytes % (Manual) 26 % (22-44) Monocytes % (Manual) 3 % (2-9) Eosinophils % (Manual) 7 % (1-6) H Nucleated Red Blood Cells 0.0 % (0.0-0.19) Differential Comment MANUAL DIFFERENTIAL Reactive Lymphocytes 1 % (0-0) H White Cell Morphology Comment Platelet Morphology Comment MARKED DECREASE Red Blood Cell Morphology See comments Prothrombin Time 12.9 SEC (9.6-11.6) H Prothromb Time International Ratio 1.24 (0.85-1.15) H Activated Partial Thromboplast Time 30.0 SEC (26.3-35.5) Sodium Level 138 mmol/L (136-145) Potassium Level 3.8 mmol/L (3.5-5.1) Chloride Level 105 mmol/L (101-111) Carbon Dioxide Level 29 mmol/L (21-32) Blood Urea Nitrogen 9 mg/dL (7-18) Creatinine 0.6 mg/dL (0.5-1.0) Glomerular Filtration Rate Calc 106 mL/min (>90) Random Glucose 165 mg/dL (70-105) H Total Calcium 8.3 mg/dL (8.5-10.1) L Human Chorionic Gonadotropin, Quant 2 mIU/mL (0-5) Labs Reviewed?: Yes ED Course ED Course Orders Procedure Category Date Status Time Urinalysis Profile LAB 02/20/25 Complete 20:38 Cbc With Differential LAB 02/20/25 Complete 20:43 Basic Metabolic Panel LAB 02/20/25 Complete 20:43 Pt And Ptt LAB 02/20/25 Complete 20:43 Hcg,Quantitative LAB 02/20/25 Complete 20:43 Culture Urine CHIQUIS 02/20/25 In Process 21:05 Ceftriaxone 1g Vial PHA 02/20/25 Complete (Rocephine 1g Inj) 21:32 Manual Differential LAB 02/20/25 Complete 21:06 Ondansetron 4mg Inj PHA 02/20/25 Complete (Zofran 4mg Inj) 21:40 Morphine 2mg Syg PHA 02/20/25 Complete (Morphine 2mg Syg) 21:40 Ceftriaxone 1g Vial PHA 02/20/25 Complete (Rocephine 1g Inj) 22:00 Ct Abdomen/Pelvis W/O CT 02/20/25 Resulted Contrast 22:24 Current Medications Medications (Trade) Dose Ordered Sig/Roberth Route PRN Reason Start Time Stop Time Status Last Admin Dose Admin Ceftriaxone Sodium (ROCEphine 1G INJ) 1 gm ONCE ONCE IM 02/20/25 22:00 02/20/25 22:01 DC 02/20/25 21:43 Ceftriaxone Sodium (ROCEphine 1G INJ) 1 gm ONCE STAT IVPB 02/20/25 21:32 02/20/25 21:41 DC Morphine Sulfate (morPHINE 2MG SYG) 2 mg ONCE STAT IVP 02/20/25 21:40 02/20/25 21:42 DC 02/20/25 21:48 Ondansetron HCl (zoFRAN 4MG INJ) 4 mg ONCE STAT IVP 02/20/25 21:40 02/20/25 21:42 DC 02/20/25 21:48 Vital Signs Date Time Temp Pulse Resp B/P (MAP) Pulse Ox O2 Delivery O2 Flow Rate FiO2 02/20/25 20:28 99.3 88 20 134/65 98 Room Air Patient does have leukopenia but that is normal for her. She has blood ketones and esterase activity in her urine she most likely has a urinary tract infection she is getting antibiotics. She still has back pain. By palpation it is her right posterior superior iliac spine tenderness. Pushing on it really causes her to jump in pain. Just to be safe I will do a noncontrast abdominal pelvic CT scan to rule out any kidney stones. CT scan noncontrast shows no evidence of kidney stones. Patient can be discharged from the ED. Medical Decision Making MDM Patient's abdominal pain with vaginal bleeding could be from renal calculi or a urinary tract infection or dehydration. DX & DISP Disposition: Discharge Departure Impression: Primary Impression: UTI (urinary tract infection) Condition: Stable Scripts Cephalexin Monohydrate (Keflex) 500 Mg Cap 500 MG PO QID for 7 Days, #28 CAP Prov: TEODORA CROFT MD 02/20/25 Additional Instructions: You do have a urinary tract infection and we have provided antibiotics to treat it as well as a script for a week's course of antibiotics. You do not have any kidney stones. The low back pain that you feel is mostly musculoskeletal. Referrals: CARLENE CAMARILLO MD (PCP) VERENICE SANTANA NP February 20, 2025 21:29 TEODORA CROFT MD February 20, 2025 22:10
[2025-02-20 21:32] LABS: BASOPHILS # (AUTO) 0.01 K/uL (0.00-0.20); BASOPHILS % (AUTO) 0.4 % (0.0-5.0); EOSINOPHILS # (AUTO) 0.11 K/uL (0.00-0.70); EOSINOPHILS % (AUTO) 4.4 % (0.0-8.0); HEMATOCRIT 34.1 % (36-48); LYMPHOCYTES # (AUTO) 0.7 K/uL (1.0-4.8); LYMPHOCYTES % (AUTO) 28.7 % (21.0-51.0); MEAN CORPUSCULAR HEMOGLOBIN 24.6 pg (27.0-33.0); MEAN CORPUSCULAR HGB CONC 30.2 g/dL (32.0-36.0); MEAN CORPUSCULAR VOLUME 81.6 fL (79-99); MONOCYTES # (AUTO) 0.2 K/uL (0.1-1.0); MONOCYTES % (AUTO) 9.2 % (3.0-13.0); NEUTROPHILS # (AUTO) 1.4 K/uL (1.8-7.7); NEUTROPHILS % (AUTO) 57.3 % (40.0-77.0); PLATELET COUNT (AUTO) 44 K/uL (130-400); RED BLOOD CELL COUNT(AUTO) 4.18 MIL/uL (4.00-5.50); RED CELL DISTRIBUTION WIDTH 18.2 % (11.0-15.5); WHITE BLOOD COUNT (AUTO) 2.5 K/uL (4.8-10.8)
[2025-02-20] MEDS ORDERED: cefTRIAXone 1G VIAL IVPB STA (21:32)
[2025-02-20] MEDS: cefTRIAXone 1G VIAL IM ONE (21:43)
[2025-02-20 21:45] LABS: CREATININE 0.6 mg/dL (0.5-1.0); INR 1.24 (0.85-1.15); POTASSIUM 3.8 mmol/L (3.5-5.1); PROTHROMBIN TIME 12.9 SEC (9.6-11.6)
[2025-02-20] MEDS: morPHINE 2 MG SYG IVP STA (21:48)
[2025-02-20] MEDS: ondanSETRON 4MG INJ IVP STA (21:48)
[2025-02-20 22:00] LABS: BAND NEUTROPHILS % (MANUAL) 6 % (0-2); EOSINOPHILS % (MANUAL) 7 % (1-6); LYMPHOCYTES % (MANUAL) 26 % (22-44); MAN.DIFF COMMENT-IMPRESSION MANUAL DIFFERENTIAL; MONOCYTES % (MANUAL) 3 % (2-9); REACTIVE LYMPHOCYTES 1 % (0-0); SEGMENTED NEUTROPHILS % 57 % (40-70); TOTAL CELLS COUNTED 100
[2025-02-20 22:05] LABS: PLATELET MORPHOLOGY COMMENT MARKED DECREASE
--- NOTE | 2025-02-20 23:21 | HMCIMG ---
CT ABDOMEN/PELVIS W/O CONTRAST HISTORY: Renal stone COMPARISON: None TECHNIQUE: Multiple sequential axial images of the abdomen and pelvis were obtained from the dome of the diaphragm through symphysis pubis. Patient was not given contrast through intravenous route. Oral contrast was not given. FINDINGS: No pleural effusion is seen bilaterally. There is no evidence of parenchymal disease or pulmonary nodule of the visualized lower lungs. Degenerative changes of the thoracolumbar spine are present. The heart is not enlarged. Liver measured 12.9 cm. Spleen is enlarged measuring 16 cm. Post cholecystectomy changes are seen. The liver, spleen, adrenal glands and pancreas are unremarkable. There is no evidence of hydronephrosis bilaterally. No evidence of renal stone is seen. Fecal material is seen in the colon. There are normal size retroperitoneal and mesenteric lymph nodes. Small amount of free fluid is seen in the pelvis. Appendix is not well seen limiting evaluation. Clinical correlation is recommended. Pelvic sidewalls are symmetric bilaterally. Bladder is poorly distended. IMPRESSION: 1. Small amount of free fluid is seen in the pelvis. Appendix is not well seen limiting evaluation. Clinical correlation is recommended. CT was performed with one or more following dose reduction techniques: automated exposure control, adjustment of the mA and kv according to patient's size, or use of a iterative reconstruction technique.
[2025-02-20] MEDS ORDERED: CEPH500B PO (23:35)
[2025-02-20 23:43] VITALS: BP 131/68; PULSE 85; RESP 18; TEMP 98.6; O2SAT 97
== END 2025-02-20 23:44 | disposition home or self-care (01) ==
LOC: EDH 20:26
DX: N39.0 Urinary tract infection, site not specified (principal); R10.2 Pelvic and perineal pain; E03.9 Hypothyroidism, unspecified; E11.9 Type 2 diabetes mellitus without complications; E78.00 Pure hypercholesterolemia, unspecified; I10 Essential (primary) hypertension; Z79.52 Long term (current) use of systemic steroids; Z79.890 Hormone replacement therapy; Z79.899 Other long term (current) drug therapy; Z90.49 Acquired absence of other specified parts of digestive tract; Z98.51 Tubal ligation status; Z98.890 Other specified postprocedural states
CPT/HCPCS: 99285; 74176; 96374; 96375; 80048; 84702; 85025; 85610; 85730; 87086; 81001; 36415; 96372; J2270; J0696; J2405

== ENCOUNTER 2025-04-09 22:15 | Emergency (ER) | payer OTHER ==
[~2025-04-09] VITALS: Ht 162.6 cm; Wt 126.1 kg
[~2025-04-09 22:15] MED LIST changes: +CEPH500B PO
[2025-04-09 23:42] LABS: CREATININE 0.6 mg/dL (0.5-1.0); POTASSIUM 3.6 mmol/L (3.5-5.1)
[2025-04-09 23:47] LABS: ALBUMIN 2.7 g/dL (3.5-5.0); BILIRUBIN,TOTAL 0.7 mg/dL (0.2-1.0); MAGNESIUM 1.5 mg/dL (1.80-2.40); PHOSPHORUS 3.3 mg/dL (2.5-4.9); TOTAL PROTEIN, SERUM 7.3 g/dL (6.0-8.3)
[2025-04-10] MEDS: INSULIN humuLIN R 100 UNIT/ML 3ML SQ ONE
[2025-04-10] MEDS: LACTATED RINGERS 1000ML IV STA (00:15)
[2025-04-10] MEDS: MAGNESIUM 2GM PREMIX 50ML 50 ML IV SCH (00:15)
--- NOTE | 2025-04-10 00:32 | HMCIMG ---
US VENOUS DOPPLER BILATERAL HISTORY: Leg swelling COMPARISON: None TECHNIQUE: Bilateral lower extremity venous Doppler ultrasound study was performed. FINDINGS: The common femoral, femoral, popliteal, and posterior tibial veins are visualized. Normal flow with augmentation and compressibilities are demonstrated. The greater saphenous veins are also seen and grossly patent. IMPRESSION: 1. No evidence of deep venous thrombosis is seen.
--- NOTE | 2025-04-10 00:49 | ERN ---
General Chief Complaint: Lower Extremity Pain/Injury Stated Complaint: C/O PAIN W/SWELLING, NUMBNESS TO LEFT LEG Time Seen by MD: 22:19 Source: patient History of Present Illness Initial Comments Patient is a super obese female with type 2 diabetes hypothyroidism and lupus who comes in because of left calf cramping swelling and pain. The cramping tries to force her left foot into an inverted position. She tries to maintain her electrolytes with [id number] vitamins and magnesium. She is also arnoldo betic. She does not have access to any of the medications she needs because her Medicaid application is still in progress. Timing/Duration: 24 hours Severity: moderate Allergies: Coded Allergies: No Known Allergies (Unverified Allergy, Unknown, 08/26/14) Home Meds Active Scripts Cephalexin Monohydrate (Keflex) 500 Mg Cap, 500 MG PO QID for 7 Days, #28 CAP Prov:TEODORA CROFT MD 02/20/25 Ibuprofen (Ibuprofen 800 mg Tab) 800 Mg Tab, 800 MG PO Q8H PRN for fever or pain, #30 TAB 0 Refills Prov:OSMIN LYNCH NP 10/13/24 Prednisone (Deltasone/Orasone [Bulk]) 20 Mg Tab, 20 MG PO BID for 30 Days, #60 TAB Prov:ZHANNA SANCHEZ NP 09/29/24 Levothyroxine Sodium (Synthroid 125 Mcg Tab) 125 Mcg Tablet, 125 MCG PO DAILY@0630 for 30 Days, #30 TAB Prov:ZHANNA SANCHEZ NP 09/29/24 Reported Medications Prednisone (Prednisone) 10 Mg Tab.ds.pk, 30 MG PO DAILY 09/25/24 Gabapentin (Gabapentin) 100 Mg Capsule, 300 MG PO BID, CAP 09/25/24 Ibuprofen (Ibuprofen 200 mg Tablet) 200 Mg Tablet, 600 MG PO Q6HPRN PRN for PAIN, TAB 09/25/24 Hydroxychloroquine Sulfate (Hydroxychloroquine Sulfate) 200 Mg Tablet, 200 MG PO BID, TAB 09/25/24 Insulin Lispro (Insulin Lispro) 100 Unit/Ml Vial, 50 UNIT SQ AM, VIAL 09/25/24 Venlafaxine HCl (Venlafaxine HCl ER) 37.5 Mg Cap.er.24h, 1 CAP PO DAILY 09/25/24 Metoprolol Succinate (Metoprolol Succinate) 50 Mg Tab.er.24h, 50 MG PO AM, TAB 11/03/23 Levothyroxine Sodium (Levothyroxine) 25 Mcg Capsule, 25 MCG PO AM, CAP 11/03/23 Atorvastatin Calcium (Atorvastatin Calcium) 20 Mg Tablet, 20 MG PO HS, TAB 11/03/23 Pramipexole Di-HCl (Pramipexole Dihydrochloride) 0.5 Mg Tablet, 0.5 MG PO HS, TAB 11/03/23 Past Medical History Past Medical History: Arthritis, Diabetes-Type II, High Cholesterol, Hypertension, Other Medical History Other: LUPUS, RESTLESS LEG SYNDROME Past Surgical History: Cholecystectomy Surgical History Other: TUBAL LIGATION Family History Family History: CAD Social History Social History: Negative, Lives with family Female( History) History: Not Applicable : 6 Para: 6 Aborts: 0 Constitutional: (-) chills, (-) diaphoresis, (-) fever, (-) malaise, (-) weakness, (-) other documentation EENTM: (-) eye pain, (-) blurred vision, (-) tearing, (-) double vision, (-) ear pain, (-) ear discharge, (-) nose pain, (-) nose congestion, (-) throat pain, (-) Throat swelling, (-) mouth pain, (-) tooth pain, (-) mouth swelling, (-) other documentation Respiratory: (-) cough, (-) orthopnea, (-) short of breath, (-) stridor, (-) wheezing, (-) other documentation Cardiovascular: (-) chest pain, (-) edema, (-) palpitations, (-) syncope, (-) dyspnea on exertion, (-) other documentation Gastrointestinal/Abdominal: (-) nausea, (-) vomiting, (-) diarrhea, (-) abdominal pain, (-) abdominal distention, (-) constipation, (-) rectal bleeding, (-) dark stool/melena, (-) other documentation Musculoskeletal: (-) Neck pain, (-) back pain, (-) Flank Pain, (-) joint pain, (-) joint swelling, (-) muscle pain, (-) muscle stiffness, (-) gout, (-) other documentation Neuro: (-) altered mental status, (-) headache, (-) syncope, (-) paralysis, (-) numbness, (-) seizure, (-) pre-existing deficit, (-) tremors, (-) weakness, (-) dizziness, (-) slurred speech, (-) vertigo, (-) other documentation Physical Exam General Appearance: (+) mild distress Orientation: (+) alert, (+) oriented x 3 Head/Face Trauma: No Eye: bilateral eye normal inspection, bilateral eye PERRL, bilateral eye EOMI Ear, Nose, Throat: (+) hearing grossly normal, (+) normal ENT inspection Neck: (+) normal inspection, (+) supple Respiratory: (+) chest non-tender, (+) lungs clear, (+) well ventilated Heart: (+) regular, (+) no gallop Vascular: (+) varicose vein Vascular Comment Bilateral lower extremities with 0 to 1+ pitting edema but most of the bulk is fatty tissue. Gastrointestinal: (+) soft, (+) non-tender, (+) bowel sound present Extremities: (+) normal range of motion Extremities Comment There is mild left anterior tibialis muscle tenderness worse than on the right Results Laboratory and Microbiology Lab and Micro Result Laboratory Tests Test 04/09/25 23:07 04/10/25 01:11 Sodium Level 139 mmol/L (136-145) Potassium Level 3.6 mmol/L (3.5-5.1) Chloride Level 103 mmol/L (101-111) Carbon Dioxide Level 31 mmol/L (21-32) Blood Urea Nitrogen 7 mg/dL (7-18) Creatinine 0.6 mg/dL (0.5-1.0) Glomerular Filtration Rate Calc 106 mL/min (>90) Random Glucose 320 mg/dL (70-105) H Hemoglobin A1c 9.2 % (4.0-6.0) H Estimated Average Glucose (eAG) 217 mg/dL (70-126) H Total Calcium 8.1 mg/dL (8.5-10.1) L Phosphorus Level 3.3 mg/dL (2.5-4.9) Magnesium Level 1.50 mg/dL (1.80-2.40) L Total Bilirubin 0.7 mg/dL (0.2-1.0) Aspartate Amino Transf (AST/SGOT) 47 U/L (10-37) H Alanine Aminotransferase (ALT/SGPT) 41 U/L (12-78) Alkaline Phosphatase 113 U/L (50-136) Total Creatine Kinase 163 U/L (21-232) # Total Protein 7.3 g/dL (6.0-8.3) Albumin 2.7 g/dL (3.5-5.0) L Whole Blood Glucose 252 MG/DL (70-110) H MDM MDM: Differential diagnosis: Hypokalemia, hypomagnesemia, dehydration, compartment syndrome, other electrolyte abnormalities, uncontrolled diabetes. Rationale: Tests considered and ordered secondary to shared decision making include: Previous outside records reviewed: Old ER visits. Risk of complication and/or morbidity or mortality of patient management: None Medications-Per medication reconciliation Need for hospitalization: Patient does meet criteria for hospitalization. Need for emergency major/minor surgery: No There are no social concerns with this patient. Prescription drug management Prescriptions will include symptomatic care Patient's prior external medical records from other ER visits were reviewed by me as indicated. Prior testing and results from previous visits were reviewed. Prior tests were taken into account with medical decision making and resource utilization, independent historian/historians were used to obtain complete medical history. I independently interpreted the test that were performed, results were reviewed by me and considered findings on radiology if ordered. Patient's labs show a profound hypo magnesemia and hyper glycemia. I am giving the patient 2 g of magnesium and 20 units of regular insulin subQ. Her CK is normal. While talking with her she mentioned that she is surprised she is dehydrated because she drinks tons and tons of water but then also spends every night on the toilet peeing. I explained to her that the constant voiding is most likely the result of her chronic hyper glycemia and despite drinking all the water she is probably still dehydrated. She is receiving a L of LR. ED Course Orders Procedure Category Date Status Time Creatine Kinase, Total LAB 04/09/25 Complete 23:10 Comprehensive LAB 04/09/25 Complete Metabolic Panel 23:10 Magnesium LAB 04/09/25 Complete 23:10 Phosphorus LAB 04/09/25 Complete 23:10 Us Venous Doppler US 04/09/25 Resulted Bilateral 23:10 Insulin Regular, PHA 04/10/25 Complete Human 3ml (Humulin R 00:00 Magnesium 2gm Premix PHA 04/10/25 In Process 50ml (Magnesium 2gm 00:00 Lactated Ringers PHA 04/10/25 Complete 1000ml (Lactated 00:03 Hemoglobin A1c LAB 04/10/25 Complete 00:04 Current Medications Medications (Trade) Dose Ordered Sig/Roberth Route PRN Reason Start Time Stop Time Status Last Admin Dose Admin Insulin Human Regular (humuLIN R 100 UNIT/ML 3ML) 20 unit ONCE ONCE SQ 04/10/25 00:00 04/10/25 00:01 DC Lactated Ringer's (Lactated Ringers 1000ml) 1,000 ml BOLUS STAT IV 04/10/25 00:03 04/10/25 00:06 DC 04/10/25 00:15 Magnesium Sulfate 50 ml @ 0 mls/hr PROTOCOL IV 04/10/25 00:00 05/10/25 00:00 04/10/25 00:15 Vital Signs Date Time Temp Pulse Resp B/P (MAP) Pulse Ox O2 Delivery O2 Flow Rate FiO2 04/09/25 23:32 97.5 82 18 123/52 97 Room Air* 0 21 04/09/25 22:18 97.0 98 20 137/85 97 Room Air DX & DISP Disposition: Discharge Departure Impression: Primary Impression: Cramps of left lower extremity Additional Impressions: Hypomagnesemia, Diabetes mellitus with hyperglycemia Condition: Stable Additional Instructions: Your sugars are uncontrolled that is why you are urinating multiple times a night. I recommend going to your primary care physician to start glycemic control. Controlling your excessive urination we will make it easier to control your electrolytes as well particularly the magnesium and potassium. Referrals: CARLENE CAMARILLO MD (PCP) TEODORA CROFT MD Apr 10, 2025 00:49
[2025-04-10 01:01] LABS: HEMOGLOBIN A1C 9.2 % (4.0-6.0)
[2025-04-10 02:24] VITALS: BP 115/58; PULSE 78; RESP 18; TEMP 97.9; O2SAT 98
== END 2025-04-10 02:25 | disposition home or self-care (01) ==
LOC: EDH 22:15
DX: R25.2 Cramp and spasm (principal); M79.662 Pain in left lower leg; E11.65 Type 2 diabetes mellitus with hyperglycemia; E83.42 Hypomagnesemia; E03.9 Hypothyroidism, unspecified; E66.9 Obesity, unspecified; E78.00 Pure hypercholesterolemia, unspecified; G25.81 Restless legs syndrome; I10 Essential (primary) hypertension; M19.90 Unspecified osteoarthritis, unspecified site; Z79.52 Long term (current) use of systemic steroids; Z79.890 Hormone replacement therapy; Z79.899 Other long term (current) drug therapy; Z90.49 Acquired absence of other specified parts of digestive tract; Z98.51 Tubal ligation status
CPT/HCPCS: 99285; 93970; 83036; 82550; 83735; 84100; 80053; 82948 ×2; 36415; 96365; J3475; J7120

== ENCOUNTER 2025-04-20 14:31 | Emergency (ER) | payer OTHER ==
[~2025-04-20] VITALS: Ht 162.6 cm; Wt 127.0 kg
--- NOTE | 2025-04-20 15:03 | ERN ---
ED Note History of Present Illness Stated Complaint: BACK PAIN Chief Complaint: Back Pain or Injury Time Seen by MD: 14:43 Dictation: Patient is a 54-year-old female states she is having severe lower lumbar pain with radicular pain sciatica to the left leg. She states she has a history of chronic back pain and normally sees her doctor at [facility] she took some kind of unknown muscle relaxer at noon. States the pain got worse when she went to the restroom and had to sit down on the commode, when she stood up it was worse. Change in bowel or bladder function history of prior surgeries or injuries. She has never had imaging of her back. Allergies: Coded Allergies: No Known Allergies (Unverified Allergy, Unknown, 08/26/14) Home Meds Active Scripts Cephalexin Monohydrate (Keflex) 500 Mg Cap, 500 MG PO QID for 7 Days, #28 CAP Prov:TEODORA CROFT MD 02/20/25 Ibuprofen (Ibuprofen 800 mg Tab) 800 Mg Tab, 800 MG PO Q8H PRN for fever or pain, #30 TAB 0 Refills Prov:OSMIN LYNCH NP 10/13/24 Prednisone (Deltasone/Orasone [Bulk]) 20 Mg Tab, 20 MG PO BID for 30 Days, #60 TAB Prov:ZHANNA SANCHEZ NP 09/29/24 Levothyroxine Sodium (Synthroid 125 Mcg Tab) 125 Mcg Tablet, 125 MCG PO DAILY@0630 for 30 Days, #30 TAB Prov:ZHANNA SANCHEZ NP 09/29/24 Reported Medications Prednisone (Prednisone) 10 Mg Tab.ds.pk, 30 MG PO DAILY 09/25/24 Gabapentin (Gabapentin) 100 Mg Capsule, 300 MG PO BID, CAP 09/25/24 Ibuprofen (Ibuprofen 200 mg Tablet) 200 Mg Tablet, 600 MG PO Q6HPRN PRN for PAIN, TAB 09/25/24 Hydroxychloroquine Sulfate (Hydroxychloroquine Sulfate) 200 Mg Tablet, 200 MG PO BID, TAB 09/25/24 Insulin Lispro (Insulin Lispro) 100 Unit/Ml Vial, 50 UNIT SQ AM, VIAL 09/25/24 Venlafaxine HCl (Venlafaxine HCl ER) 37.5 Mg Cap.er.24h, 1 CAP PO DAILY 09/25/24 Metoprolol Succinate (Metoprolol Succinate) 50 Mg Tab.er.24h, 50 MG PO AM, TAB 11/03/23 Levothyroxine Sodium (Levothyroxine) 25 Mcg Capsule, 25 MCG PO AM, CAP 11/03/23 Atorvastatin Calcium (Atorvastatin Calcium) 20 Mg Tablet, 20 MG PO HS, TAB 11/03/23 Pramipexole Di-HCl (Pramipexole Dihydrochloride) 0.5 Mg Tablet, 0.5 MG PO HS, TAB 11/03/23 Past Medical History Past Medical History: Diabetes-Type II, High Cholesterol, Hypertension, Hypothyroid Additional Past Medical Hx: LUPUS Surgical History: Cholecystectomy, BTL Surgical History Other: TUBAL LIGATION Family History: CAD Social History: Negative, Lives with family History: Not Applicable : 6 Para: 6 Aborts: 0 RN Note Reviewed/Agreed w/PFSH: Yes Review of System Dictation CONSTITUTIONAL: NEGATIVE EXCEPT FOR HPI HEAD/FACE: NEGATIVE EXCEPT FOR HPI EENT: NEGATIVE EXCEPT FOR HPI RESPIRATORY: NEGATIVE EXCEPT FOR HPI GASTROINTESTINAL/ABDOMINAL: NEGATIVE EXCEPT FOR HPI GENITOURINARY: NEGATIVE EXCEPT FOR HPI MUSCULOSKELETAL: NEGATIVE EXCEPT FOR HPI DIFFUSE LOWER LUMBAR PAIN WITH LEFT SCIATICA INTEGUMENTARY: NEGATIVE EXCEPT FOR HPI NEUROLOGICAL/PSYCH: NEGATIVE EXCEPT FOR HPI HEMATOLOGIC/LYMPHATIC: NEGATIVE EXCEPT FOR HPI ALL SYSTEMS NEGATIVE, EXCEPT NOTED ABOVE. 13 POINT REVIEW OF SYSTEMS ASSESSED AND ALL NEGATIVE EXCEPT FOR ABOVE. Initial Vital Sign VS Vital Signs Date Time Temp Pulse Resp B/P (MAP) Pulse Ox O2 Delivery O2 Flow Rate FiO2 04/20/25 14:33 97.5 86 18 100/55 97 Room Air 0 04/20/25 16:03 21 Physical Exam Dictation VITAL SIGNS REVIEWED GENERAL APPEARANCE: ALERT, ORIENTED X 3, MODERATE ACUTE DISTRESS, WELL DEVELOPED, NOURISHED. MORBID OBESITY HEAD AND FACE: NON-TRAUMATIC. EYES: PERRL, PINK CONJUNCTIVAS, EYELID NO TRAUMA, ANTERIOR CHAMBER WITH ARCUS SENILIS. EARS: PINNAS INTACT AND NO SIGNS OF TRAUMA OR ERYTHEMA EAR CANALS CLEAR AND NO DISCHARGE TM NO ERYTHEMA NOSE: NO DISCHARGE, NO BLEEDING. OROPHARYNX: MOUTH NORMAL, TONGUE PINK, PHARYNX CLEAR,NO ERYTHEMA, TONSILS NO EXUDATES, NO ABSCESSES NOTED, MUCOUS MEMBRANE MOIST NECK: SUPPLE, NON-TENDER, NO THYROMEGALY, NO MASSES, NO JVD, NO BRUITS BREAST:DEFERRED CHEST:NO TENDERNESS, NO CREPITUS, NO PARADOXICAL MOVEMENT, NO RETRACTIONS LUNGS:CLEAR, WELL-VENTILATED, SYMMETRIC, NO RALES, NO WHEEZING, NO RHONCHI, NO STRIDOR, GOOD BREATH SOUNDS BILATERALLY HEART: REGULAR RATE, REGULAR RHYTHM, NO MURMUR, NO GALLOPS VASCULAR: NO PERIPHERAL EDEMA, ABDOMEN: SOFT, POSITIVE BOWEL SOUNDS, NONDISTENDED, NO GUARDING, NONTENDER, NO REBOUND, NO MASSES NO HEPATOMEGALY, NO SPLENOMEGALY, NO BERRIOS'S SIGN, NO HERNIAS. RECTAL: DEFERRED EXTREMITIES: NONTENDER, FULL RANGE OF MOTION DIFFUSE LUMBOSACRAL TENDERNESS WITH POSITIVE STRAIGHT LEG RAISE LEFT 10 DEGREE SKIN: COLOR PINK, DRY, NO TURGOR, NO RASH, NO LACERATIONS, NO ABRASIONS, NO CONTUSIONS. LYMPHATIC: DEFERRED Results (Laboratory/Radiology) Laboratory/Radiology Laboratory Tests Test 04/20/25 16:02 Influenza Type A Antigen Negative For Type A Influenza Type B Antigen Negative For Type B SARS-CoV-2 Antigen (Rapid) PRESUMPTIVE NEGATIVE CR Lumbar Spine, 3 View. CLINICAL HISTORY: Acute diffuse lumbar pain with left leg sciatica COMPARISON: None provided. FINDINGS: BONES: No fracture in the lumbar spine. ALIGNMENT: Alignment is within normal limits. No significant scoliosis. DISCS / DEGENERATIVE CHANGES: Mild to moderate degenerative changes which are more pronounced in the lower lumbar spine. SOFT TISSUES: The soft tissues are unremarkable. IMPRESSION: 1. No fracture or dislocationin the lumbar spine. 2. Mild to moderate degenerative changes which are more pronounced in the lower lumbar spine. /[place] Labs Reviewed?: Yes ED Course ED Course Orders Procedure Category Date Status Time Hydrocodone/Apap PHA 04/20/25 Complete 5/325 ([place] 5/325mg) 15:30 Ketorolac 60mg/2ml PHA 04/20/25 Complete (Toradol 60mg/2ml) 15:30 Dexamethasone 4mg/Ml PHA 04/20/25 Complete 1ml Vial (Dexametha 15:30 Cyclobenzaprine Hcl PHA 04/20/25 Complete (Cyclobenzaprine Hcl 15:30 Lumbar Spine 2-3vws RAD 04/20/25 Resulted 15:01 Covid19 (Sars Antigen LAB 04/20/25 Complete Rapid) 15:59 Influenza Type A & B, LAB 04/20/25 Complete Rapid 15:59 Current Medications Medications (Trade) Dose Ordered Sig/Roberth Route PRN Reason Start Time Stop Time Status Last Admin Dose Admin Acetaminophen/ Hydrocodone Bitart (NORco 5/325MG) 1 tab ONCE ONCE PO 04/20/25 15:30 04/20/25 15:31 DC 04/20/25 15:38 Cyclobenzaprine HCl (Cyclobenzaprine HCl) 10 mg ONCE ONCE PO 04/20/25 15:30 04/20/25 15:31 DC 04/20/25 15:38 Dexamethasone Sodium Phosphate (dexaMETHasone 4MG/ML 1ML VIAL) 4 mg ONCE ONCE IM 04/20/25 15:30 04/20/25 15:31 DC 04/20/25 15:38 Ketorolac Tromethamine (toRADol 60MG/ 2ML) 60 mg ONCE ONCE IM 04/20/25 15:30 04/20/25 15:31 DC 04/20/25 15:38 Vital Signs Date Time Temp Pulse Resp B/P (MAP) Pulse Ox O2 Delivery O2 Flow Rate FiO2 04/20/25 16:03 101.1 78 20 120/40 96 Room Air* 0 21 04/20/25 14:33 97.5 86 18 100/55 97 Room Air 0 1640/LUMBAR X-RAY DEMONSTRATES DEGENERATIVE CHANGES ONLY. PATIENT WAS SWABBED FOR COVID AND INFLUENZA SINCE SHE HAD A LOW-GRADE FEVER AND SAID SHE HAD BEEN EXPOSED TO FLU Medical Decision Making MDM MEDICAL DISCHARGE MAKING BASED ON X-RAY OF LUMBAR SPINE AND EMPIRIC TREATMENT FOR LOW BACK PAIN. IN ADDITION PATIENT WAS SWABS FOR INFLUENZA AND COVID-19 SINCE SHE HAD BEEN EXPOSED TO FLU EARLIER THIS WEEK. FLU COVI ALL NEGATIVE. LUMBAR X-RAY DEMONSTRATES DEGENERATIVE CHANGES ONLY DISCHARGED HOME WITH IBUPROFEN AND FLEXERIL WITH PREDNISONE TOLD SEE HER DOCTOR AT [facility] IN THE NEXT 1-2 DAYS DX & DISP Disposition: Discharge Departure Impression: Primary Impression: Acute lumbosacral myofascial strain Additional Impressions: Exposure to influenza, Fever Condition: Stable Scripts Omeprazole (Omeprazole) 40 Mg Capsule. 1 CAP PO DAILY for 30 Days, #30 CAP 0 Refills Prov: OSMIN LYNCH MANUFACTURING SPECIALIST 04/20/25 Cyclobenzaprine HCl (Cyclobenzaprine HCl) 10 Mg Tablet 1 TAB PO TID for muscle spasms for 10 Days, #30 TAB 0 Refills Prov: OSMIN LYNCH NP 04/20/25 Ibuprofen (Ibuprofen 800 mg Tab) 800 Mg Tab 800 MG PO Q8H PRN for fever or pain, #30 TAB 0 Refills Prov: OSMIN LYNCH NP 04/20/25 Prednisone (Prednisone) 20 Mg Tablet 1 TAB PO AD for 6 Days, #14 TAB 0 Refills TAKE 1 TAB BY MOUTH THREE TIMES PER DAY X3 DAYS, THEN TAKE 1 TAB BY MOUTH TWICE A DAY X2 DAYS, THEN TAKE 1 TAB BY MOUTH ONCE A DAY X1 DAY. TAKE WITH FOOD Prov: OSMIN LYNCH NP 04/20/25 Additional Instructions: FOLLOW-UP WITH PRIMARY CARE PROVIDER IN 1 TO 2 DAYS. TAKE MEDICATIONS DIRECTED HERE IN THE EMERGENCY ROOM. OKAY TO CONTINUE HOME MEDICATIONS UNLESS OTHERWISE DISCUSSED DURING YOUR VISIT IN THE EMERGENCY ROOM TODAY. RETURN TO YOUR NEAREST EMERGENCY ROOM IF SYMPTOMS WORSEN OR IF THERE IS NO IMPROVEMENT. CALL 911 IF YOU NEED IMMEDIATE ASSISTANCE. TAKE TYLENOL OR MOTRIN [id number] NEEDED AND IF NO CONTRAINDICATIONS ARE PRESENT. INCREASE ORAL HYDRATION. A WOUND CULTURE OR URINE CULT[facility] PLEASE FOLLOW-UP WITH PRIMARY CARE PROVIDER AND ADVISE THEM TO GET REPEAT PORTS FROM OUR FACILITY. IF YOU HAD ANY MANUEL WRAP/SPLINTS THAT WERE APPLIED HERE, PLEASE DO NOT REMOVE THEM UNTIL YOU SEE YOUR PRIMARY CARE OR SPECIALTY. TAKE IBUPROFEN AND FLEXERIL EVERY 8 HOURS WITH FOOD FOR THE NEXT THREE DAYS. TAKE PREDNISONE DIRECTED DAILY UNTIL GONE WITH FOOD. WARM COMPRESSES TO PAIN THREE TO 4 TIMES A DAY AND SEE YOUR DOCTOR AT [facility] IN THE NEXT 1-2 DAYS FOR MANAGEMENT Referrals: CARLENE CAMARILLO MD (PCP) OSMIN LYNCH NP Apr 20, 2025 15:03
[2025-04-20] MEDS: HYDROcodone/APAP 5/325 1 TAB TABLET PO ONE (15:38)
[2025-04-20] MEDS: dexaMETHasone SOD PHOSPHATE 4 MG/ML 1ML VIAL IM ONE (15:38)
[2025-04-20] MEDS: CYCLOBENZAPRINE HCL 10 MG TABLET PO ONE (15:38)
[2025-04-20] MEDS: ketOROlac 60 MG VIAL (30MG/ML) IM ONE (15:38)
--- NOTE | 2025-04-20 16:20 | HMCIMG ---
EXAM: CR Lumbar Spine, 3 View. CLINICAL HISTORY: Acute diffuse lumbar pain with left leg sciatica COMPARISON: None provided. FINDINGS: BONES: No fracture in the lumbar spine. ALIGNMENT: Alignment is within normal limits. No significant scoliosis. DISCS / DEGENERATIVE CHANGES: Mild to moderate degenerative changes which are more pronounced in the lower lumbar spine. SOFT TISSUES: The soft tissues are unremarkable. IMPRESSION: 1. No fracture or dislocationin the lumbar spine. 2. Mild to moderate degenerative changes which are more pronounced in the lower lumbar spine. /Echo
[2025-04-20 16:27] LABS: COVID19 (SARS ANTIGEN RAPID) PRESUMPTIVE NEGATIVE (NEGATIVE)
[2025-04-20 16:34] LABS: INFLUENZA TYPE A Negative For Type A (NEGATIVE); INFLUENZA TYPE B Negative For Type B (NEGATIVE)
[2025-04-20] MEDS ORDERED: CYCL-309 PO (16:42)
[2025-04-20] MEDS ORDERED: PRED20TA3 PO (16:42)
[2025-04-20] MEDS ORDERED: OMEP40CA21 PO (16:42)
[2025-04-20 17:30] VITALS: BP 120/61; PULSE 85; RESP 20; TEMP 99.5; O2SAT 96
== END 2025-04-20 17:43 | disposition home or self-care (01) ==
LOC: EDH 14:31
DX: S39.012A Strain of muscle, fascia and tendon of lower back, initial encounter (principal); E78.00 Pure hypercholesterolemia, unspecified; I10 Essential (primary) hypertension; R50.9 Fever, unspecified; E03.9 Hypothyroidism, unspecified; E11.9 Type 2 diabetes mellitus without complications; Z20.828 Contact with and (suspected) exposure to other viral communicable diseases; Z79.52 Long term (current) use of systemic steroids; Z79.890 Hormone replacement therapy; Z79.899 Other long term (current) drug therapy; Z90.49 Acquired absence of other specified parts of digestive tract; Z98.51 Tubal ligation status; Z20.822 Contact with and (suspected) exposure to COVID-19
CPT/HCPCS: 99284; 87426; 87804 ×2; 72100; 96372 ×2; J1100; J1885

== ENCOUNTER 2025-04-22 14:10 | Inpatient (IN) | payer OTHER ==
[~2025-04-22] VITALS: Ht 162.6 cm; Wt 136.1 kg
[~2025-04-22 14:10] MED LIST changes: +CYCL-309 PO; +OMEP40CA21 PO; +PRED20TA3 PO
--- NOTE | 2025-04-22 14:56 | NUR ---
PT STATES SHE CANNOT URINATE
[2025-04-22 15:05] LABS: IMMATURE GRANULOCYTE ABSOLUTE 0.21 K/uL (0-1); NUCLEATED RED BLOOD CELLS 0.0 % (0.0-0.19); PLATELET COUNT (AUTO) 24 K/uL (130-400); RED BLOOD CELL COUNT(AUTO) 4.37 MIL/uL (4.00-5.50); RED CELL DISTRIBUTION WIDTH 19.8 % (11.0-15.5); WHITE BLOOD COUNT (AUTO) 5.6 K/uL (4.8-10.8)
[2025-04-22 15:13] LABS: CREATININE 1.8 mg/dL (0.5-1.0); GLOMERULAR FILTR. RATE CALC 33.0 mL/min (>90); GLUCOSE,RANDOM 318.0 mg/dL (70-105); SODIUM SERUM 129.0 mmol/L (136-145); UREA NITROGEN, BLOOD 37.0 mg/dL (7-18)
[2025-04-22 15:16] LABS: INR 1.54 (0.85-1.15)
[2025-04-22 16:06] LABS: MAN.DIFF COMMENT-IMPRESSION MANUAL DIFFERENTIAL; PLATELET MORPHOLOGY COMMENT MARKED DECREASE
[2025-04-22 16:13] LABS: BAND NEUTROPHILS % (MANUAL) 26 % (0-2); LYMPHOCYTES % (MANUAL) 1 % (22-44); MONOCYTES % (MANUAL) 3 % (2-9); SEGMENTED NEUTROPHILS % 70 % (40-70)
[2025-04-22] MEDS: 0.9%NACL 1000ML 1,000 ML IV ONE (17:27)
--- NOTE | 2025-04-22 18:18 | HMCIMG ---
EXAM: CT Abdomen and Pelvis without IV contrast CLINICAL HISTORY: Abdominal pain TECHNIQUE: Axial computed tomography images of the abdomen and pelvis without intravenous contrast. CT scan performed according to ALARA. Automated exposure control used during exam. CONTRAST: without intravenous contrast. COMPARISON: CT images dated February 20, 2025 FINDINGS: Lung bases are clear. Cirrhotic hepatic morphology. Splenomegaly reflect sequela of portal venous hypertension. Bilateral adrenal glands, and pancreas are within normal limits. The gallbladder is surgically absent. Bilateral renal cortical thickening with the cortices measuring up to 3.2 cm, may reflect renal parenchymal disease. Recommend correlation with laboratory parameters. No renal calculus or hydronephrosis appreciated. Bowel loops are normal in caliber without evidence of obstruction, ileus, or obvious bowel wall thickening. The appendix is within normal limits. No abnormality within the unopacified bladder. Pelvic organs demonstrate appropriate CT appearances. Trace free fluid within the pelvis. Presumed 3.0 x 1.7 cm seroma or sebaceous cyst within the ventral abdominal wall subcutaneous layer. There is no lymphadenopathy. There is no acute or suspicious osseous abnormality. IMPRESSION: 1. No acute intraabdominal or pelvic pathology. 2. Cirrhotic liver morphology with splenomegaly, consistent with portal hypertension. 3. Bilateral renal cortical thickening, may reflect renal parenchymal disease. /[place]
--- NOTE | 2025-04-22 18:42 | ERN ---
General Chief Complaint: Low Back Pain/Injury Stated Complaint: RIGHT SIDE LOWER BACK PAIN Time Seen by MD: 14:40 History of Present Illness Initial Comments 54 y/o female came in for low back pain. Pt states that this has been going on for the past few days. Pt otherwise has no concerns. Allergies: Coded Allergies: No Known Allergies (Unverified Allergy, Unknown, 08/26/14) Home Meds Active Scripts Omeprazole (Omeprazole) 40 Mg Capsule.dr, 1 CAP PO DAILY for 30 Days, #30 CAP 0 Refills Prov:OSMIN LYNCH NP 04/20/25 Cyclobenzaprine HCl (Cyclobenzaprine HCl) 10 Mg Tablet, 1 TAB PO TID for muscle spasms for 10 Days, #30 TAB 0 Refills Prov:OSMIN LYNCH NP 04/20/25 Ibuprofen (Ibuprofen 800 mg Tab) 800 Mg Tab, 800 MG PO Q8H PRN for fever or pain, #30 TAB 0 Refills Prov:OSMIN LYNCH NP 04/20/25 Prednisone (Prednisone) 20 Mg Tablet, 1 TAB PO AD for 6 Days, #14 TAB 0 Refills TAKE 1 TAB BY MOUTH THREE TIMES PER DAY X3 DAYS, THEN TAKE 1 TAB BY MOUTH TWICE A DAY X2 DAYS, THEN TAKE 1 TAB BY MOUTH ONCE A DAY X1 DAY. TAKE WITH FOOD Prov:OSMIN LYNCH NP 04/20/25 Cephalexin Monohydrate (Keflex) 500 Mg Cap, 500 MG PO QID for 7 Days, #28 CAP Prov:TEODORA CROFT MD 02/20/25 Ibuprofen (Ibuprofen 800 mg Tab) 800 Mg Tab, 800 MG PO Q8H PRN for fever or pain, #30 TAB 0 Refills Prov:OSMIN LYNCH NP 10/13/24 Prednisone (Deltasone/Orasone [Bulk]) 20 Mg Tab, 20 MG PO BID for 30 Days, #60 TAB Prov:ZHANNA SANCHEZ NP 09/29/24 Levothyroxine Sodium (Synthroid 125 Mcg Tab) 125 Mcg Tablet, 125 MCG PO DAILY@0630 for 30 Days, #30 TAB Prov:ZHANNA SANCHEZ NP 09/29/24 Reported Medications Prednisone (Prednisone) 10 Mg Tab.ds.pk, 30 MG PO DAILY 09/25/24 Gabapentin (Gabapentin) 100 Mg Capsule, 300 MG PO BID, CAP 09/25/24 Ibuprofen (Ibuprofen 200 mg Tablet) 200 Mg Tablet, 600 MG PO Q6HPRN PRN for PAIN, TAB 09/25/24 Hydroxychloroquine Sulfate (Hydroxychloroquine Sulfate) 200 Mg Tablet, 200 MG PO BID, TAB 09/25/24 Insulin Lispro (Insulin Lispro) 100 Unit/Ml Vial, 50 UNIT SQ AM, VIAL 09/25/24 Venlafaxine HCl (Venlafaxine HCl ER) 37.5 Mg Cap.er.24h, 1 CAP PO DAILY 09/25/24 Metoprolol Succinate (Metoprolol Succinate) 50 Mg Tab.er.24h, 50 MG PO AM, TAB 11/03/23 Levothyroxine Sodium (Levothyroxine) 25 Mcg Capsule, 25 MCG PO AM, CAP 11/03/23 Atorvastatin Calcium (Atorvastatin Calcium) 20 Mg Tablet, 20 MG PO HS, TAB 11/03/23 Pramipexole Di-HCl (Pramipexole Dihydrochloride) 0.5 Mg Tablet, 0.5 MG PO HS, TAB 11/03/23 Past Medical History Past Medical History: Diabetes-Type II, High Cholesterol, Hypertension, Hypothyroid Medical History Other: LUPUS Past Surgical History: Cholecystectomy, BTL Surgical History Other: TUBAL LIGATION Family History Family History: CAD Social History Social History: Negative, Lives with family Female( History) History: Not Applicable : 6 Para: 6 Aborts: 0 ROS Dictation Back pain Physical Exam General Appearance: (+) no apparent distress Orientation: (+) alert Neck: (+) normal inspection Respiratory: (+) chest non-tender, (+) lungs clear Heart: (+) regular, (+) no gallop Vascular: (+) no edema, (+) normal peripheral pulse Gastrointestinal: (+) soft, (+) non-tender, (+) no organomegaly Results Laboratory and Microbiology Lab and Micro Result Laboratory Tests Test 04/22/25 14:57 White Blood Count 5.6 K/uL (4.8-10.8) Red Blood Count 4.37 MIL/uL (4.00-5.50) Hemoglobin 11.0 g/dL (12.0-16.0) L Hematocrit 35.3 % (36-48) L Mean Corpuscular Volume 80.8 fL (79-99) Mean Corpuscular Hemoglobin 25.2 pg (27.0-33.0) L Mean Corpuscular Hemoglobin Concent 31.2 g/dL (32.0-36.0) L Red Cell Distribution Width 19.8 % (11.0-15.5) H Platelet Count 24 K/uL (130-400) L Mean Platelet Volume fL (7.5-10.5) Immature Granulocyte % (Auto) 3.7 % (0-1) H Neutrophils (%) (Auto) 89.5 % (40.0-77.0) H Lymphocytes (%) (Auto) 2.7 % (21.0-51.0) L Monocytes (%) (Auto) 3.2 % (3.0-13.0) Eosinophils (%) (Auto) 0.0 % (0.0-8.0) Basophils (%) (Auto) 0.9 % (0.0-5.0) Neutrophils # (Auto) 5.0 K/uL (1.8-7.7) Lymphocytes # (Auto) 0.2 K/uL (1.0-4.8) L Monocytes # (Auto) 0.2 K/uL (0.1-1.0) Eosinophils # (Auto) 0.00 K/uL (0.00-0.70) Basophils # (Auto) 0.05 K/uL (0.00-0.20) Absolute Immature Granulocyte (auto 0.21 K/uL (0-1) Segmented Neutrophils % 70 % (40-70) Band Neutrophils % 26 % (0-2) H Lymphocytes % (Manual) 1 % (22-44) L Monocytes % (Manual) 3 % (2-9) Nucleated Red Blood Cells 0.0 % (0.0-0.19) Differential Comment MANUAL DIFFERENTIAL White Cell Morphology Comment Platelet Morphology Comment MARKED DECREASE Red Blood Cell Morphology See comments Prothrombin Time 15.6 SEC (9.6-11.6) H Prothromb Time International Ratio 1.54 (0.85-1.15) H Activated Partial Thromboplast Time 33.0 SEC (26.3-35.5) Sodium Level 129 mmol/L (136-145) L Potassium Level 4.7 mmol/L (3.5-5.1) Chloride Level 96 mmol/L (101-111) L Carbon Dioxide Level 22 mmol/L (21-32) Blood Urea Nitrogen 37 mg/dL (7-18) H Creatinine 1.8 mg/dL (0.5-1.0) H Glomerular Filtration Rate Calc 33 mL/min (>90) Random Glucose 318 mg/dL (70-105) H Total Calcium 8.3 mg/dL (8.5-10.1) L MDM Pt will be admitted to hospitalist service for further management ED Course Orders Procedure Category Date Status Time Cbc With Differential LAB 04/22/25 Complete 14:45 Basic Metabolic Panel LAB 04/22/25 Complete 14:45 Pt And Ptt LAB 04/22/25 Complete 14:45 Urinalysis LAB 04/22/25 Logged W/Microscopic 14:45 Manual Differential LAB 04/22/25 Complete 14:57 Ct Abdomen/Pelvis W/O CT 04/22/25 Resulted Contrast 16:20 0.9%Nacl 1000ml (Ns PHA 04/22/25 Complete 1000ml) 17:00 Ceftriaxone 1g Vial PHA 04/22/25 Transmitted (Rocephine 1g Inj) 19:00 Current Medications Medications (Trade) Dose Ordered Sig/Roberth Route PRN Reason Start Time Stop Time Status Last Admin Dose Admin Sodium Chloride 1,000 ml @ 0 mls/hr ONCE ONCE IV 04/22/25 17:00 04/22/25 17:01 DC 04/22/25 17:27 Vital Signs Date Time Temp Pulse Resp B/P (MAP) Pulse Ox O2 Delivery O2 Flow Rate FiO2 04/22/25 17:30 78 18 117/55 98 Room Air* 0 21 04/22/25 14:15 98.2 91 18 129/54 98 Room Air* 0 04/22/25 14:11 98.2 91 18 129/54 98 Room Air 0 DX & DISP Disposition: Inpatient Departure Impression: Primary Impression: Back pain Additional Impressions: Thrombocytopenia, BALTAZAR (acute kidney injury) Condition: Stable Referrals: CARLENE CAMARILLO MD (PCP) CAROL CLAYTON MD Apr 22, 2025 18:42
[2025-04-22 19:32] LABS: APPEARANCE,URINE CLOUDY (CLEAR); GLUCOSE, URINE (UA) 300 mg/dL (NEGATIVE); LEUKOCYTE ESTERASE ,URINE 500 Leu/uL (NEGATIVE); NITRATE,URINE NEGATIVE (NEGATIVE); NON-SQUAMOUS EPITHELIAL CELL 2 /HPF (0-2); OCCULT BLOOD,URINE MODERATE (NEGATIVE); OTHER CASTS, URINE 6 /LPF (None Seen); SQUAMOUS EPITHELIAL CELL,UR FEW /HPF (0-2); UNCLASSIFIED CRYSTAL 5 /HPF (None Seen); WBC CLUMP FEW /HPF (0-1)
--- NOTE | 2025-04-22 19:53 | HP ---
[facility] Date of Service: Apr 22, 2025 Time of Service: 19:35 PCP: Kassie Rahman HISTORY OF PRESENT ILLNESS: This is a 54-year-old female with past medical history of undiagnosed obstructive sleep apnea, diabetes type 2, hypertension, hyperlipidemia, hypothyroidism, restless leg syndrome, anxiety disorder,depression, lupus and severe morbid obesity who presents to the ED for complaints of severe low back pain which started 2 weeks ago and getting worse for the past 2 days and patient reports she is taking prednisone 30mg po daily for her Lupus she said.Patient also reports she was recently seen in this ED for similar complaints and was diagnosed with acute lumbosacral myofascial strain. 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 Seen and examined patient in the ER awake,alert and coherent,appears uncomfortable. Patient denies fever, palpitation, shortness for breath, bloody emesis, and bloody stool. Latest vital signs temperature 98.2, heart rate 78, blood pressure 128/62 saturation 98% on room air. Labs: WBC 5.6, neutrophils 89, Hemoglobin 11, hematocrit 35, platelet count 24. Sodium 129, potassium 4.7, chloride 96, BUN 37, creatinine 1.8, GFR disease three, glucose 318, total calcium 8.3. Urinalysis consistent with urinary tract infection. CT abdomen and pelvis result revealed no acute intra-abdominal or pelvic pathology cirrhotic liver morphology with splenomegaly, consistent with portal hypertension. Bilateral renal cortical thickening may reflect renal parenchymal disease. While in the ER patient received Rocephin 1 g IV, 1 L NS bolus. We will admit patient for further medical management. REVIEW OF SYSTEMS CONSTITUTIONAL: Denies fevers, chills, or night sweats. No unintentional weight loss reported. NEUROLOGICAL: Denies headache, amaurosis fugax, motor weakness, sensory deficit, vertigo/spinning sensation, gait abnormalities, or tremors. ENT: No hearing loss, otalgia, otorrhea, rhinitis, rhinorrhea, hoarseness, or sore throat. CARDIOVASCULAR: Denies any exertional angina, dyspnea on exertion, orthopnea, paroxysmal nocturnal dyspnea, palpitations, life-threatening arrhythmias, claudication. PULMONARY: Denies any shortness of breath, cough, phlegm/sputum, hemoptysis, pleuritic chest pain. SLEEP: Denies morning headaches, daytime somnolence or napping. Denies difficulty falling asleep, staying asleep, waking from sleep. Denies knowledge of snoring. GASTROINTESTINAL: Denies any type of dysphagia to either liquids or solids. Denies nausea, vomiting, pyrosis, early satiety, abdominal pain, diarrhea, constipation, or changes in stool consistency or caliber. Denies coffee-ground emesis, hematemesis, hematochezia, or melanotic stools. GENITOURINARY: Denies frequency, urgency, nocturia, hematuria or incontinence (Storage/Irritative symptoms.) Low urinary stream, straining to void, urinary intermittency or hesitancy, splitting of the voiding stream, terminal dribbling. ENDOCRINOLOGIC: Denies polyuria, polydipsia, polyphagia or heat/cold intolerances. HEMATOLOGIC: Denies thrombophilia/previous clots, or coagulopathy/bleeding disorders. ONCOLOGIC: Denies personal history of malignancy. DERMATOLOGIC: Denies rashes or pruritus. PSYCHIATRIC: Denies any suicidal or homicidal ideation. Denies hallucinations. PAST MEDICAL HISTORY: [undiagnosed obstructive sleep apnea, diabetes type 2, hypertension, hyperlipidemia, hypothyroidism, restless leg syndrome, anxiety disorder,depression, lupus and severe morbid obesity ] PAST SURGICAL HISTORY: [ Cholecystectomy, tubal ligation] PAST SOCIAL HISTORY: [ Patient lives with . Patient denies alcohol tobacco and recreational drug use] FAMILY HISTORY: [ Hypertension, diabetes, cardiovascular disease and Alzheimer's disease ] Coded Allergies: No Known Allergies (Unverified Allergy, Unknown, 08/26/14) PHYSICAL EXAM GENERAL APPEARANCE: The patient is awake, alert, and oriented, in no acute cardiopulmonary distress. NEUROLOGICAL: Cranial nerves II-XII grossly intact. Motor is 5/5 in bilateral upper and lower extremities proximal to distal. No sensory deficits. HEENT: Face is symmetric. Pupils are equal and reactive. Extraocular movements are intact. NECK: Supple. No JVD. No thyromegaly. No submental, submandibular, pre- /postauricular, occipital or supraclavicular lymphadenopathy. CHEST: Normal chest expansion. No Telemetry. LUNGS: Absence of any rales, rhonchi or any wheezing. CARDIOVASCULAR: Regular. S1 and S2 normal. No appreciable rubs, murmurs or gallops. ABDOMEN: Soft, nontender, and nondistended. There is no rebound, voluntary guarding, or rigidity. : Deferred. No [place]. EXTREMITIES: Non-edematous and not cyanotic. No clubbing. Good capillary refill. SKIN: No skin breakdown. Vital Sign (Last 24 Hours) 04/22/25 19:09 Temp 98.2 Pulse 78 Resp 18 B/P (MAP) 128/62 Pulse Ox 98 O2 Delivery Room Air* O2 Flow Rate 0 FiO2 21 LABS: Laboratory: Test 04/22/25 18:59 04/22/25 14:57 Range/Units Urine Color YELLOW YELLOW Urine Appearance CLOUDY H CLEAR Urine pH 6.0 5.0-8.0 Urine Specific Gleason 1.014 1.001-1.031 Urine Protein 70 H NEGATIVE mg/dL Urine Glucose (UA) 300 H NEGATIVE mg/dL Urine Ketones NEGATIVE NEGATIVE mg/dL Urine Occult Blood MODERATE H NEGATIVE Urine Nitrate NEGATIVE NEGATIVE Urine Bilirubin NEGATIVE NEGATIVE mg/dL Urine Urobilinogen 0.2 0.2-1.0 mg/dL Urine Leukocyte Esterase 500 H NEGATIVE Que/uL Urine RBC 11-25 H 0-1 /HPF Urine WBC 51-100 H 0-1 /HPF Urine WBC Clumps (Auto) FEW 0-1 /HPF Urine Squamous Epithelial Cells FEW 0-2 /HPF Urine Non-Squamous Epithelial Cells 2 0-2 /HPF Urine Other Crystals (Auto) 5 None Seen /HPF Urine Bacteria RARE None Seen /HPF Urine Other Casts 6 None Seen /LPF White Blood Count 5.6 4.8-10.8 K/uL Red Blood Count 4.37 4.00-5.50 MIL/uL Hemoglobin 11.0 L 12.0-16.0 g/dL Hematocrit 35.3 L 36-48 % Mean Corpuscular Volume 80.8 79-99 fL Mean Corpuscular Hemoglobin 25.2 L 27.0-33.0 pg Mean Corpuscular Hemoglobin Concent 31.2 L 32.0-36.0 g/dL Red Cell Distribution Width 19.8 H 11.0-15.5 % Platelet Count 24 L 130-400 K/uL Mean Platelet Volume 7.5-10.5 fL Immature Granulocyte % (Auto) 3.7 H 0-1 % Neutrophils (%) (Auto) 89.5 H 40.0-77.0 % Lymphocytes (%) (Auto) 2.7 L 21.0-51.0 % Monocytes (%) (Auto) 3.2 3.0-13.0 % Eosinophils (%) (Auto) 0.0 0.0-8.0 % Basophils (%) (Auto) 0.9 0.0-5.0 % Neutrophils # (Auto) 5.0 1.8-7.7 K/uL Lymphocytes # (Auto) 0.2 L 1.0-4.8 K/uL Monocytes # (Auto) 0.2 0.1-1.0 K/uL Eosinophils # (Auto) 0.00 0.00-0.70 K/uL Basophils # (Auto) 0.05 0.00-0.20 K/uL Absolute Immature Granulocyte (auto 0.21 0-1 K/uL Segmented Neutrophils % 70 40-70 % Band Neutrophils % 26 H 0-2 % Lymphocytes % (Manual) 1 L 22-44 % Monocytes % (Manual) 3 2-9 % Nucleated Red Blood Cells 0.0 0.0-0.19 % Differential Comment MANUAL DIFFERENTIAL White Cell Morphology Comment Platelet Morphology Comment MARKED DECREASE Red Blood Cell Morphology See comments Prothrombin Time 15.6 H 9.6-11.6 SEC Prothromb Time International Ratio 1.54 H 0.85-1.15 Activated Partial Thromboplast Time 33.0 26.3-35.5 SEC Sodium Level 129 L 136-145 mmol/L Potassium Level 4.7 3.5-5.1 mmol/L Chloride Level 96 L 101-111 mmol/L Carbon Dioxide Level 22 21-32 mmol/L Blood Urea Nitrogen 37 H 7-18 mg/dL Creatinine 1.8 H 0.5-1.0 mg/dL Glomerular Filtration Rate Calc 33 >90 mL/min Random Glucose 318 H 70-105 mg/dL Total Calcium 8.3 L 8.5-10.1 mg/dL DIAGNOSTICS / RADIOLOGY: [ ] ASSESSMENT: Intractable low back pain POA Acute thrombocytopenia POA Acute urinary tract infection POA Chronic anemia POA Hyponatremia POA Acute kidney injury on renal insufficiency POA Hyperglycemia due to uncontrolled diabetes POA Hypocalcemia POA Cirrhotic liver with splenomegaly consistent with portal hypertension per CT POA Renal parenchymal disease per CT POA Hypothyroidism POA Hypocalcemia POA Hyperlipidemia POA Hypertension POA Anxiety disorder POA Depression POA Restless leg syndrome POA Suspected obstructive sleep apnea untreated POA Morbid obesity POA PLAN: We will admit patient in medical telemetry We will start on consistent carb diet We will start on LR at 100 x 2 bags We will start patient on Rocephin 1 g IV b.i.d. for empiric coverage We will start on Famotidine 20 mg p.o. daily for GI prophylaxis We will replace electrolytes as needed per protocol We will start on insulin sliding scale AC & HS with hypoglycemia protocol We will add prn medication for fever,pain,cough ,nausea and vomiting We will reconcile home meds once medlist available We will seek Hematology consultation We will request labs in am Further orders to follow depending on above results Case discussed with attending physician and came up with above treatment and plan of care. ADVANCED CARE PLANNING 1. Which of the following were discussed? Hospice Care - No Therapeutic options - Yes Advance Directives - No Other discussions - 2. Discussed with who? Patient 3. Voluntary nature of this service was explained to the patient? Yes 4. Amount of time spent - __24 5. Reviewed by Physician? (if this service was performed by NPP) Yes Patient seen and examined by me. Agree with note by PERFECT BINDER SETTER SEE ADDITIONAL ORDERS PER CHART DISCUSSED WITH NURSING STAFF BRYNN DE LA VEGA SQL TECH Apr 22, 2025 19:53
[2025-04-22] MEDS ORDERED: MAGNESIUM 2GM PREMIX 50ML 50 ML IV PRN (20:00)
[2025-04-22] MEDS ORDERED: DEXTROSE 50%-WATER 50 ML DISP.SYRIN IV PRN (20:00)
[2025-04-22] MEDS ORDERED: GLUCAGON 1MG KIT 1 MG ML IM PRN (20:00)
[2025-04-22] MEDS ORDERED: PoTASSium chl 10% ELIXIR 20MEQ 20 MEQ/15 ML UDCUP PO PRN (20:00)
[2025-04-22] MEDS: LACTATED RINGERS 1000ML 1,000 ML IV SCH (21:13)
[2025-04-22] MEDS: LIDOCAINE 4% ADH..PATCH TP ONE (21:14)
--- NOTE | 2025-04-22 22:10 | NUR ---
PT WAS PLACED ON HOSPITAL BED, PUREWHICK APPLIED TO PT SHE STATES HER ANKLES ARE IN TOO MUCH PAIN TO HOLD HER WEIGHT
--- NOTE | 2025-04-23 06:18 | NUR ---
HOSPITALIST PAGED FOR AV RN; PENDING CALL BACK
--- NOTE | 2025-04-23 06:24 | NUR ---
PT C/O CHEST PAIN, EKG DONE AND REVIEWED BY ER MD DR. CROFT, HOSPITALIST PAGED REGARDING CHEST PAIN, STILL PENDING CALL BACK AT THIS TIME.
--- NOTE | 2025-04-23 06:44 | EKG ---
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
--- NOTE | 2025-04-23 06:44 | EKG ---
[facility] Test Date: 2025-04-22 Test Time: 22:14:48 Pat Name: LUCÍA GOODMAN Department: EDHIP Room: ED 05 Gender: F Rehab Director: [id number] : 1970 Requested By: BRYNN DE LA VEGA Order Number: [id number] Reading MD: Camilo Segura Measurements Intervals [place] Rate: 81 P: 47 [place]: 148 QRS: -45 QRSD: 103 T: 55 QT: 380 QTc: 441 Interpretive Statements Sinus rhythm LAD, consider left anterior fascicular block Compared to ECG 10/20/2024 22:53:02 No significant changes Electronically Signed On 04-23-2025 15:35:35 CDT by Camilo Segura Please click the below link to view image of tracing.
--- NOTE | 2025-04-23 06:50 | NUR ---
HOSPITALIST CALLED BACK, INFORMED ON PT NEW ONSET CP. PER HOSPITALIST SHE WILL COME SEE THE PATIENT THIS MORNING AND PLACE ORDERS. VSS, NO SIGNS OF ACUTE DISTRESS NOTED.
[2025-04-23 07:17] LABS: IMMATURE GRANULOCYTE ABSOLUTE 0.04 K/uL (0-1); NUCLEATED RED BLOOD CELLS 0.0 % (0.0-0.19); PLATELET COUNT (AUTO) 30 K/uL (130-400); RED BLOOD CELL COUNT(AUTO) 3.82 MIL/uL (4.00-5.50); RED CELL DISTRIBUTION WIDTH 19.8 % (11.0-15.5); WHITE BLOOD COUNT (AUTO) 5.4 K/uL (4.8-10.8)
[2025-04-23 07:39] LABS: ASPARTATE AMINOTRANSFERASE 147.0 U/L (10-37); CREATININE 1.2 mg/dL (0.5-1.0); GLOMERULAR FILTR. RATE CALC 53.0 mL/min (>90); GLUCOSE,RANDOM 244.0 mg/dL (70-105); SODIUM SERUM 129.0 mmol/L (136-145); UREA NITROGEN, BLOOD 44.0 mg/dL (7-18)
[2025-04-23 07:40] LABS: TOTAL PROTEIN, SERUM 6.7 g/dL (6.0-8.3)
[2025-04-23 08:29] LABS: ERYTHROCYTE SEDIMENTATION RATE 40 MM/HR (0-30)
[2025-04-23] MEDS: FAMOTIDINE 20MG TAB PO SCH (09:33)
[2025-04-23] MEDS: ALBUTEROL 0.042% 1.25MG/3ML IH ONE (09:40)
[2025-04-23 09:41] VITALS: PULSE 95; RESP 22
[2025-04-23 09:48] LABS: ABG OXYGEN SATURATION 67.4 % (94.0-98.0); BASE EXCESS,VENOUS BLOOD GAS -8.9 (-2.0-3.0); DEVICE COMMENT VENOUS; HCO3,VENOUS BLOOD GAS 16.1 (22.0-29.0); PCO2,VENOUS BLOOD GAS 33 (38-54); PH,VENOUS BLOOD GAS 7.311 (7.320-7.430); PO2,VENOUS BLOOD GAS 37.7 mmHg (23.0-48.0); TEMPERATURE, CELSIUS BG 37.0 CELSIUS (35.5-37.0); VENT MODE, BG RA (ROOM AIR)
--- NOTE | 2025-04-23 10:00 | NUR ---
Lac-3.6 primary nurse Mati made aware
--- NOTE | 2025-04-23 10:25 | PN ---
[facility] PROGRESS NOTE Date of Service: Apr 23, 2025 Time of Service: 10:25 SUBJECTIVE: This is a 54-year-old female with past medical history of undiagnosed obstructive sleep apnea, diabetes type 2, hypertension, hyperlipidemia, hypothyroidism, restless leg syndrome, anxiety disorder,depression, lupus and severe morbid obesity who presents to the ED for complaints of severe low back p ain which started 2 weeks ago and getting worse for the past 2 days and patient reports she is taking prednisone 30mg po daily for her Lupus she said.Patient also reports she was recently seen in this ED for similar complaints and was diagnosed with acute lumbosacral myofascial strain. and patient was given pain meds and discharged home and came again today due to pain intensity is so severe and intolerable.Patient also reports that her whole body hurts more on muscle pain she said.Patient also reports she has muscle pain on her chest and it reproducible on light palpation.Patient also states she vomited x 1 today .Patient denies any injury,trauma and fall.Patient also reports that she is on her monthly period today and it is her first day.patient also states that is her [employer] and her last seen him last year and that she has insurance problem reason she was unable to keep her follow up. Urinalysis consistent with urinary tract infection. CT abdomen and pelvis result revealed no acute intra-abdominal or pelvic pathology cirrhotic liver morphology with splenomegaly, consistent with portal hypertension. Bilateral renal cortical thickening may reflect renal parenchymal disease. While in the ER patient received Rocephin 1 g IV, 1 L NS bolus. We will admit patient for further medical management. 04/23/25 Patient was seen and examined at bedside. She was complaining of chest pain early in the morning but her EKG and troponin were normal. Patient says she got liver cirrhosis from taking Tylenol with codeine in the past for a long time. Remarkable labs are Na 129, K 6.4. Cl 98, BUN 44. Cr 1.2 with no anion gap. New EKG shows sinus rhythm with no tall T-waves or shortened QT interval. We will give her a dose of calcium gluconate and lokelma and recheck her labs. we will hold her iv fluids for now. Her urine anion gap is 36.0 mEq/l. Repeat potassium was 4.2 and 4.6. We will order CT lumbar spine and request nephro and cardio consults due to hyponatremia, RTA and cirrhosis with portal hypertension respectively. We will order lupus, complement , anemia panel due to her abnormal labs and h/o SLE. Hematology recommended solu medrol 125 q6. she might need hydrochloroquine upon discharge for SLE REVIEW OF SYSTEMS CONSTITUTIONAL: Denies fevers, chills, or night sweats. No unintentional weight loss reported. NEUROLOGICAL: Denies headache, amaurosis fugax, motor weakness, sensory deficit, vertigo/spinning sensation, gait abnormalities, or tremors. ENT: No hearing loss, otalgia, otorrhea, rhinitis, rhinorrhea, hoarseness, or sore throat. CARDIOVASCULAR: Denies any exertional angina, dyspnea on exertion, orthopnea, paroxysmal nocturnal dyspnea, palpitations, life-threatening arrhythmias, claudication. PULMONARY: Denies any shortness of breath, cough, phlegm/sputum, hemoptysis, pleuritic chest pain. SLEEP: Denies morning headaches, daytime somnolence or napping. Denies difficulty falling asleep, staying asleep, waking from sleep. Denies knowledge of snoring. GASTROINTESTINAL: Denies any type of dysphagia to either liquids or solids. Denies nausea, vomiting, pyrosis, early satiety, abdominal pain, diarrhea, constipation, or changes in stool consistency or caliber. Denies coffee-ground emesis, hematemesis, hematochezia, or melanotic stools. GENITOURINARY: Denies frequency, urgency, nocturia, hematuria or incontinence (Storage/Irritative symptoms.) Low urinary stream, straining to void, urinary intermittency or hesitancy, splitting of the voiding stream, terminal dribbling. ENDOCRINOLOGIC: Denies polyuria, polydipsia, polyphagia or heat/cold intolerances. HEMATOLOGIC: Denies thrombophilia/previous clots, or coagulopathy/bleeding disorders. ONCOLOGIC: Denies personal history of malignancy. DERMATOLOGIC: Denies rashes or pruritus. PSYCHIATRIC: Denies any suicidal or homicidal ideation. Denies hallucinations. PHYSICAL EXAM GENERAL APPEARANCE: The patient is awake, alert, and oriented, in no acute cardiopulmonary distress. NEUROLOGICAL: Cranial nerves II-XII grossly intact. Motor is 5/5 in bilateral upper and lower extremities proximal to distal. No sensory deficits. HEENT: Face is symmetric. Pupils are equal and reactive. Extraocular movements are intact. NECK: Supple. No JVD. No thyromegaly. No submental, submandibular, pre-/postauricular, occipital or supraclavicular lymphadenopathy. CHEST: Normal chest expansion. No Telemetry. LUNGS: Absence of any rales, rhonchi or any wheezing. CARDIOVASCULAR: Regular. S1 and S2 normal. No appreciable rubs, murmurs or gallops. ABDOMEN: Soft, nontender, and nondistended. There is no rebound, voluntary guarding, or rigidity. : Deferred. No Nolasco. EXTREMITIES: Non-edematous and not cyanotic. No clubbing. Good capillary refill. SKIN: No skin breakdown. Vital Signs (last 8hr) Date Time Temp Pulse Resp B/P (MAP) Pulse Ox O2 Delivery O2 Flow Rate FiO2 04/23/25 09:41 95 22 04/23/25 09:07 98.4 95 16 97/50 96 Room Air* 0 21 04/23/25 06:15 98.2 87 16 122/54 98 Room Air* 0 21 04/23/25 03:45 98.1 89 19 114/58 97 Room Air* 0 21 LABS: Laboratory: Test 04/23/25 09:47 04/23/25 08:54 04/23/25 07:10 04/23/25 06:33 Range/Units Blood Gas Specimen Type Venous Arterial Blood Oxygen Saturation 67.4 L 94.0-98.0 % Venous Blood pH 7.311 L 7.320-7.430 Venous Blood pCO2 at Patient Temp 33 L 38-54 Venous Blood pO2 at Patient Temp 37.7 23.0-48.0 mmHg Venous Blood HCO3 16.1 L 22.0-29.0 Venous Blood Base Excess -8.9 L -2.0-3.0 Blood Gas Temperature 37.0 35.5-37.0 CELSIUS Blood Gas Vent Mode RA ROOM AIR FiO2 21.0 % Blood Gas Specimen Comment VENOUS Whole Blood Glucose 237 H 70-110 MG/DL White Blood Count 5.4 4.8-10.8 K/uL Red Blood Count 3.82 L 4.00-5.50 MIL/uL Hemoglobin 9.4 L 12.0-16.0 g/dL Hematocrit 30.6 L 36-48 % Mean Corpuscular Volume 80.1 79-99 fL Mean Corpuscular Hemoglobin 24.6 L 27.0-33.0 pg Mean Corpuscular Hemoglobin Concent 30.7 L 32.0-36.0 g/dL Red Cell Distribution Width 19.8 H 11.0-15.5 % Platelet Count 30 L 130-400 K/uL Mean Platelet Volume 7.5-10.5 fL Immature Granulocyte % (Auto) 0.7 0-1 % Neutrophils (%) (Auto) 91.2 H 40.0-77.0 % Lymphocytes (%) (Auto) 3.7 L 21.0-51.0 % Monocytes (%) (Auto) 3.3 3.0-13.0 % Eosinophils (%) (Auto) 0.0 0.0-8.0 % Basophils (%) (Auto) 1.1 0.0-5.0 % Neutrophils # (Auto) 4.9 1.8-7.7 K/uL Lymphocytes # (Auto) 0.2 L 1.0-4.8 K/uL Monocytes # (Auto) 0.2 0.1-1.0 K/uL Eosinophils # (Auto) 0.00 0.00-0.70 K/uL Basophils # (Auto) 0.06 0.00-0.20 K/uL Absolute Immature Granulocyte (auto 0.04 0-1 K/uL Nucleated Red Blood Cells 0.0 0.0-0.19 % Erythrocyte Sedimentation Rate 40 H 0-30 MM/HR Sodium Level 129 L 136-145 mmol/L Potassium Level 6.4 *H 3.5-5.1 mmol/L Chloride Level 98 L 101-111 mmol/L Carbon Dioxide Level 23 21-32 mmol/L Blood Urea Nitrogen 44 H 7-18 mg/dL Creatinine 1.2 H 0.5-1.0 mg/dL Glomerular Filtration Rate Calc 53 >90 mL/min Random Glucose 244 H 70-105 mg/dL Total Calcium 7.8 L 8.5-10.1 mg/dL Ionized Calcium 1.01 L 1.15-1.33 MMOL/L Magnesium Level 1.70 L 1.80-2.40 mg/dL Total Bilirubin 1.2 H 0.2-1.0 mg/dL Aspartate Amino Transf (AST/SGOT) 147 H 10-37 U/L Alanine Aminotransferase (ALT/SGPT) 62 12-78 U/L Alkaline Phosphatase 68 50-136 U/L Troponin I High Sensitivity 42 4-50 ng/L Total Protein 6.7 6.0-8.3 g/dL Albumin 2.1 L 3.5-5.0 g/dL Test 04/22/25 18:59 04/22/25 14:57 Range/Units Urine Color YELLOW YELLOW Urine Appearance CLOUDY H CLEAR Urine pH 6.0 5.0-8.0 Urine Specific Ione 1.014 1.001-1.031 Urine Protein 70 H NEGATIVE mg/dL Urine Glucose (UA) 300 H NEGATIVE mg/dL Urine Ketones NEGATIVE NEGATIVE mg/dL Urine Occult Blood MODERATE H NEGATIVE Urine Nitrate NEGATIVE NEGATIVE Urine Bilirubin NEGATIVE NEGATIVE mg/dL Urine Urobilinogen 0.2 0.2-1.0 mg/dL Urine Leukocyte Esterase 500 H NEGATIVE Que/uL Urine RBC 11-25 H 0-1 /HPF Urine WBC 51-100 H 0-1 /HPF Urine WBC Clumps (Auto) FEW 0-1 /HPF Urine Squamous Epithelial Cells FEW 0-2 /HPF Urine Non-Squamous Epithelial Cells 2 0-2 /HPF Urine Other Crystals (Auto) 5 None Seen /HPF Urine Bacteria RARE None Seen /HPF Urine Other Casts 6 None Seen /LPF Segmented Neutrophils % 70 40-70 % Band Neutrophils % 26 H 0-2 % Lymphocytes % (Manual) 1 L 22-44 % Monocytes % (Manual) 3 2-9 % Differential Comment MANUAL DIFFERENTIAL White Cell Morphology Comment Platelet Morphology Comment MARKED DECREASE Red Blood Cell Morphology See comments Prothrombin Time 15.6 H 9.6-11.6 SEC Prothromb Time International Ratio 1.54 H 0.85-1.15 Activated Partial Thromboplast Time 33.0 26.3-35.5 SEC Current Medications Medications (Trade) Dose Ordered Sig/Roberth Route PRN Reason Start Time Stop Time Status Last Admin Dose Admin Acetaminophen (TYLenol 325MG TAB) 650 mg Q4H PRN PO MILD PAIN (1-3) 04/22/25 20:00 05/22/25 19:59 04/23/25 03:33 650 MG Acetaminophen (TYLenol 325MG TAB) 650 mg Q6H PRN PO TEMPERATURE GREATER THAN 101.5 04/22/25 20:00 05/22/25 19:59 04/23/25 10:02 650 MG Ceftriaxone Sodium 1 gm/ Sodium Chloride 50 ml @ 100 mls/hr BID IV 04/22/25 21:00 04/22/25 19:59 DC Ceftriaxone Sodium (ROCEphine 1G INJ) 1 gm BID IVPB 04/22/25 21:00 04/22/25 20:44 DC Ceftriaxone Sodium (ROCEphine 1G INJ) 1 gm BID IVPB 04/23/25 09:00 05/03/25 08:59 04/23/25 09:33 1 GM Dextrose (D50w) 50 ml AD PRN IV HYPOGLYCEMIA PROTOCOL 04/22/25 20:00 05/22/25 19:59 Famotidine (Pepcid 20mg Tab) 20 mg DAILY PO 04/23/25 09:00 05/23/25 08:59 04/23/25 09:33 20 MG Glucagon (Glucagon 1mg Kit) 1 mg AD PRN IM HYPOGLYCEMIA PROTOCOL 04/22/25 20:00 05/22/25 19:59 Insulin Human Regular (humuLIN R 100 UNIT/ML 3ML) INSULIN SLIDING SCAL... ACHS SQ 04/22/25 21:00 05/22/25 20:59 04/22/25 21:29 309 UNIT Lactated Ringer's 1,000 ml @ 100 mls/hr Q10H IV 04/22/25 20:00 04/23/25 10:09 DC 04/23/25 06:00 100 MLS/HR Magnesium Sulfate 50 ml @ 0 mls/hr PROTOCOL PRN IV OTHER [SEE ORDER COMMENTS] 04/22/25 20:00 05/22/25 19:59 Methylprednisolone Sodium Succinate (Solu-medROL 125MG) 125 mg Q6H IVP 04/23/25 08:00 05/23/25 07:59 04/23/25 09:33 125 MG Ondansetron HCl (zoFRAN 4MG INJ) 4 mg Q6H PRN IV NAUSEA/VOMITING 04/22/25 20:00 05/22/25 19:59 04/22/25 20:10 4 MG Potassium Chloride 100 ml @ 100 mls/hr AD PRN IV POTASSIUM PROTOCOL 04/22/25 20:00 05/22/25 19:59 Potassium Chloride (K-Dur/Klor-Con 20meq) 20 meq AD PRN PO POTASSIUM PROTOCOL 04/22/25 20:00 05/22/25 19:59 Potassium Chloride (KCl 10% Elixir 20meq/15ml) 20 meq AD PRN PO POTASSIUM PROTOCOL 04/22/25 20:00 05/22/25 19:59 DIAGNOSTICS / RADIOLOGY: [ ] ASSESSMENT: Intractable low back pain POA Acute thrombocytopenia POA Acute urinary tract infection POA Chronic anemia POA Hyponatremia POA Acute kidney injury on renal insufficiency POA Hyperglycemia due to uncontrolled diabetes POA Hypocalcemia POA Cirrhotic liver with splenomegaly consistent with portal hypertension per CT POA Renal parenchymal disease per CT POA Hypothyroidism POA Hypocalcemia POA Hyperlipidemia POA Hypertension POA Anxiety disorder POA Depression POA Restless leg syndrome POA Suspected obstructive sleep apnea untreated POA Morbid obesity POA PLAN: Intractable lower back pain Continue multimodal pain management: acetaminophen, topical agents, consider gabapentin if neuropathic. Currently on dilaudid CT lumbar spine ESR elevated Thrombocytopenia due to ITP Monitor CBC daily; trend platelets. Rule out DIC, splenic sequestration (cirrhosis-related), and medication-induced causes. Avoid NSAIDs, hematology consult Currently on solu medrol 125mg q6 . Acute UTI Currently on rocephin Monitor for signs of urosepsis Encourage hydration and bladder care Hyponatremia Treat underlying hyperglycemia; avoid rapid sodium correction. Monitor serum Na closely; consider fluid restriction if dilutional. Cirrhosis with portal hypertension Monitor for decompensation: encephalopathy, ascites, variceal bleeding. Consider beta sergio for variceal prophylaxis. Monitor LFTs, INR, and ammonia Hyperglycemia (Uncontrolled Diabetes) Start basal/bolus insulin regimen; monitor blood glucose QID. Educate on diet and insulin compliance; monitor for DKA if concern. Correct electrolytes accordingly. Chronic anemia Monitor trends; assess for iron/B12/folate deficiency. Avoid transfusion unless symptomatic or Hgb <7. GI consult We will admit patient in medical telemetry We will start on consistent carb diet We will start on LR at 100 x 2 bags We will start patient on Rocephin 1 g IV b.i.d. for empiric coverage We will start on Famotidine 20 mg p.o. daily for GI prophylaxis We will replace electrolytes as needed per protocol We will start on insulin sliding scale AC & HS with hypoglycemia protocol We will add prn medication for fever,pain,cough ,nausea and vomiting We will reconcile home meds once medlist available We will seek Hematology consultation We will request labs in am Further orders to follow depending on above results Case discussed with attending physician and came up with above treatment and plan of care. ATTESTATION BY PHYSICIAN I have seen and examined the patient. I reviewed the documentation, medical decision making, and treatment plan as noted by the resident provider above. I agree with the findings and plan of care. Cory Pimentel MD, NIHITHA MD Apr 23, 2025 10:25
[2025-04-23 10:30] LABS: % IRON SATURATION 9.3 % (22-44); IRON, SERUM 25.0 mcg/dL (50-170)
--- NOTE | 2025-04-23 10:33 | NUR ---
I AND REMIGIO (MEDICAL I [employer] SALES) ASSITED IN TURNING PT ONTO HER L LATERAL SIDE. A PILLOW WAS WEDGED BEHIND HER BOTTOM AND A ROLLED UP SHEET BENEATH HER NECK FOR HER COMFORT AND REQUEST. THE BED IS IN THE FLAT POSITION PER HER REQUEST. SR UP X3, BED LOW AND LOCKED AT THIS TIME. PRIMARY NURSE MARYLU MERCHANT INFORMED.
--- NOTE | 2025-04-23 10:43 | NUR ---
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 Pt lives in home she rents with Bradly Lizarraga [phone]. Pt gets $590 in food stamp assist and states rain has made in difficult for to work. Sw provided community resources for possible assist. Pt states she completes ADLS with difficulty, family assists with dressing and as needed because she can not bend down. Pt uses a cane to ambulate, no in home care services or HD. Pt seen at [facility] by Julito Piña for care and meds. Pt denies dc needs at his time and will return home at dc Addendum: 04/23/25 at 1048 by VASYL KIM Amended: Links added.
[2025-04-23] MEDS: CALCIUM GLUC 1GM/10ML VIAL IV ONE (10:55)
[2025-04-23] MEDS: 0.9%NACL 50ML 50 ML IV ONE (11:00)
--- NOTE | 2025-04-23 11:16 | CONS ---
REASON FOR CONSULTATION: The patient is well known to me with lupus, ITP but lost for the five years and half, just did not keep any followup whatsoever. HISTORY OF PRESENT ILLNESS: A 54-year-old with systemic lupus, ITP, sleep apnea, diabetes, hypertension, hyperlipidemia, restless legs, morbid obesity, bruising for a couple of weeks. Someone gave her prednisone. She was in the ER for a lumbosacral strain, sent home. She came back with just severe pain. She had a UTI. Platelets were down to 24,000. We were asked to see her for the same. PAST MEDICAL HISTORY: Lupus, ITP, obstructive sleep apnea, diabetes, hyperlipidemia, , anxiety disorder, and morbid obesity. PAST SURGICAL HISTORY: Cholecystectomy and tubal ligation. MEDICATIONS: See intake sheet. ALLERGIES: No reported drug allergies. FAMILY HISTORY: Hypertension, diabetes, heart disease, and Alzheimer's. No lupus. SOCIAL HISTORY: Lives with her . Does not smoke or drink. Does not work. REVIEW OF SYSTEMS: CONSTITUTIONAL: No fever or sweats. HEENT: Negative for blurry vision. CARDIOVASCULAR: No chest pain, palpitations, or PND. PULMONARY: . MUSCULOSKELETAL: Back pain and bone pain. SKIN: Multiple petechiae, she states bruises. PHYSICAL EXAMINATION: VITAL SIGNS: Blood pressure is 128/64, pulse 78, respirations 18. HEENT: Benign. CHEST: Clear. ABDOMEN: Soft. HEART: Examined. EXTREMITIES: Show no edema. NEUROLOGIC: Intact. LABORATORY DATA: CBC: White count 5.6, hemoglobin 11, platelets 24,000. IMPRESSION: * ITP. * Lupus, off treatment. * Morbid obesity. * Back pain. * Sleep apnea. * Hypothyroidism. * Total noncompliance. PLAN: CBC, chem profile. [place] culture, IV antibiotics. We will treat for the ITP initially with Solu-Medrol 125 IV q. 6 h. daily. CBC and platelet, no need to transfuse. If she does not respond in a couple of days, we will add IgG. Further recommendations to follow. TID: [id number] RECEIPT: [id number]
[2025-04-23 11:34] LABS: INR 1.51 (0.85-1.15)
[2025-04-23 11:38] LABS: CREATINE KINASE, TOTAL 286.0 U/L (21-232); LACTATE DEHYDROGENASE 304.0 U/L (81-234)
--- NOTE | 2025-04-23 12:55 | EKG ---
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
[2025-04-23 14:04] LABS: CREATININE 1.5 mg/dL (0.5-1.0); GLOMERULAR FILTR. RATE CALC 41.0 mL/min (>90); GLUCOSE,RANDOM 256.0 mg/dL (70-105); SODIUM SERUM 131.0 mmol/L (136-145); UREA NITROGEN, BLOOD 51.0 mg/dL (7-18)
[2025-04-23 14:09] LABS: ASPARTATE AMINOTRANSFERASE 87.0 U/L (10-37); CREATINE KINASE, TOTAL 296.0 U/L (21-232); TOTAL PROTEIN, SERUM 6.8 g/dL (6.0-8.3)
[2025-04-23] MEDS: NA ZIRCON CYCLOSIL(LOKELMA 10GM) PO ONE (14:14)
--- NOTE | 2025-04-23 15:03 | CONS ---
GASTROENTEROLOGY CONSULTATION NOTE Date of Consultation: Apr 23, 2025 Time of Consultation: 15:03 History of Present Illness: This is a 54-year-old female who is known to services with past medical history of sleep apnea, diabetes, hypertension, hyperlipidemia, hypothyroidism, restless leg, anxiety, depression, and lupus, morbid obesity who presented due to severe lower back pain for which she is taking prednisone daily for her lupus. We were consulted due to cirrhosis, splenomegaly and portal hypertension. Patient actually underwent EGD last year in 2023 for which revealed grade 3 esophageal varices. She never followed up in clinic due to financial barriers. No overt GI bleeding. Hemoglobin stable at 11.0. Review of Systems: CONSTITUTIONAL: No malaise or change in sensation of wellbeing. ENMT: No rhinorrhea, otorrhea, sinus pain, ear ache. CARDIOVASCULAR: No angina, palpitations, orthopnea or paroxysmal dyspnea. RESPIRATORY: No SOB. GASTROINTESTINAL: No abdominal pain, nausea, vomiting, diarrhea, hematemesis, melena or change in the patient's habitual bowel movements consistency/number. GENITOURINARY: No dysuria, hematuria or change in bladder continence. MUSCULOSKELETAL: No new muscle pain or decrease in muscular strength. No new joint swelling, redness or tenderness. SKIN: No new rash. Past Medical History: [ ] Past Surgical History: [ ] Past Social History: [ ] Family History: [ ] Coded Allergies: No Known Allergies (Unverified Allergy, Unknown, 08/26/14) Physical Exam: GEN: Awake, alert, oriented in person, time and place, and in no acute distress. HEENT: No sinus tenderness. Tympanic membranes were not examined. No rhinorrhea. Oral pharyngeal mucosa is pink, moist and within normal limits. Neck is supple with no cervical lymphadenopathy, thyromegaly or JVD. CHEST: Inspection, palpation and percussion of the chest were unremarkable. Lung auscultation revealed normal breath sounds bilaterally. CARDIAC: PMI is within normal limits. Heart sounds are regular. Normal S1, S2. No gallop or murmur. ABD: Soft, non-tender and not distended. No peritoneal signs on palpation. No organomegaly. Normal bowel sounds. EXT: No cyanosis or clubbing. No edema. SKIN: Intact. No rashes. JOINTS: No evidence of synovitis or acute arthritis. NEURO: Alert and oriented to name, place and person. Cranial nerve examination is unremarkable. No focal motor deficits. Normal speech. Gait is normal. Strength is normal. Vital Sign (Last 24 Hours) 04/23/25 04/23/25 09:07 09:41 Temp 98.4 Pulse 95 Resp 22 B/P (MAP) 97/50 Pulse Ox 96 O2 Delivery Room Air* O2 Flow Rate 0 FiO2 21 Laboratory: [ ] Laboratory: Test 04/23/25 13:33 04/23/25 12:51 04/23/25 11:15 04/23/25 09:49 Range/Units Sodium Level 131 L 136-145 mmol/L Potassium Level 4.6 3.5-5.1 mmol/L Chloride Level 98 L 101-111 mmol/L Carbon Dioxide Level 21 21-32 mmol/L Blood Urea Nitrogen 51 H 7-18 mg/dL Creatinine 1.5 H 0.5-1.0 mg/dL Glomerular Filtration Rate Calc 41 >90 mL/min Random Glucose 256 H 70-105 mg/dL Lactic Acid Level 5.0 H 0.8-2.5 mmol/L Total Calcium 8.5 8.5-10.1 mg/dL Total Bilirubin 1.6 #H 0.2-1.0 mg/dL Aspartate Amino Transf (AST/SGOT) 87 H 10-37 U/L Alanine Aminotransferase (ALT/SGPT) 60 12-78 U/L Alkaline Phosphatase 81 50-136 U/L Total Creatine Kinase 296 H 21-232 U/L Total Protein 6.8 6.0-8.3 g/dL Albumin 2.2 L 3.5-5.0 g/dL Whole Blood Glucose 237 H 70-110 MG/DL Prothrombin Time 15.4 H 9.6-11.6 SEC Prothromb Time International Ratio 1.51 H 0.85-1.15 Activated Partial Thromboplast Time 36.5 H 26.3-35.5 SEC Fibrinogen 397 H 180-350 mg/dL Whole Blood Ketones Quantitative 0.2 0.0-0.6 mmol/L Uric Acid 3.7 2.6-7.2 mg/dL Lactate Dehydrogenase 304 H 81-234 U/L Thyroid Stimulating Hormone (TSH) 3.08 # 0.36-3.74 uIU/mL Test 04/23/25 09:47 04/23/25 07:10 04/23/25 06:33 04/22/25 18:59 Range/Units Blood Gas Specimen Type Venous Arterial Blood Oxygen Saturation 67.4 L 94.0-98.0 % Venous Blood pH 7.311 L 7.320-7.430 Venous Blood pCO2 at Patient Temp 33 L 38-54 Venous Blood pO2 at Patient Temp 37.7 23.0-48.0 mmHg Venous Blood HCO3 16.1 L 22.0-29.0 Venous Blood Base Excess -8.9 L -2.0-3.0 Blood Gas Temperature 37.0 35.5-37.0 CELSIUS Blood Gas Vent Mode RA ROOM AIR FiO2 21.0 % Blood Gas Specimen Comment VENOUS White Blood Count 5.4 4.8-10.8 K/uL Red Blood Count 3.82 L 4.00-5.50 MIL/uL Hemoglobin 9.4 L 12.0-16.0 g/dL Hematocrit 30.6 L 36-48 % Mean Corpuscular Volume 80.1 79-99 fL Mean Corpuscular Hemoglobin 24.6 L 27.0-33.0 pg Mean Corpuscular Hemoglobin Concent 30.7 L 32.0-36.0 g/dL Red Cell Distribution Width 19.8 H 11.0-15.5 % Platelet Count 30 L 130-400 K/uL Mean Platelet Volume 7.5-10.5 fL Immature Granulocyte % (Auto) 0.7 0-1 % Neutrophils (%) (Auto) 91.2 H 40.0-77.0 % Lymphocytes (%) (Auto) 3.7 L 21.0-51.0 % Monocytes (%) (Auto) 3.3 3.0-13.0 % Eosinophils (%) (Auto) 0.0 0.0-8.0 % Basophils (%) (Auto) 1.1 0.0-5.0 % Neutrophils # (Auto) 4.9 1.8-7.7 K/uL Lymphocytes # (Auto) 0.2 L 1.0-4.8 K/uL Monocytes # (Auto) 0.2 0.1-1.0 K/uL Eosinophils # (Auto) 0.00 0.00-0.70 K/uL Basophils # (Auto) 0.06 0.00-0.20 K/uL Absolute Immature Granulocyte (auto 0.04 0-1 K/uL Nucleated Red Blood Cells 0.0 0.0-0.19 % Erythrocyte Sedimentation Rate 40 H 0-30 MM/HR Reticulocyte Count (auto) 2.60033 H 0.42-2.23 % Immature Reticulocyte Fraction 30.20 H 0.18-0.48 % Iron Level 25 #L 50-170 mcg/dL Total Iron Binding Capacity 266 250-450 mcg/dL Percent Iron Saturation 9.3 L 22-44 % Ferritin 78 15-150 ng/mL Vitamin B12 Level 1159 H 193-986 pg/mL Ionized Calcium 1.01 L 1.15-1.33 MMOL/L Magnesium Level 1.70 L 1.80-2.40 mg/dL Troponin I High Sensitivity 42 4-50 ng/L Urine Color YELLOW YELLOW Urine Appearance CLOUDY H CLEAR Urine pH 6.0 5.0-8.0 Urine Specific [place] 1.014 1.001-1.031 Urine Protein 70 H NEGATIVE mg/dL Urine Glucose (UA) 300 H NEGATIVE mg/dL Urine Ketones NEGATIVE NEGATIVE mg/dL Urine Occult Blood MODERATE H NEGATIVE Urine Nitrate NEGATIVE NEGATIVE Urine Bilirubin NEGATIVE NEGATIVE mg/dL Urine Urobilinogen 0.2 0.2-1.0 mg/dL Urine Leukocyte Esterase 500 H NEGATIVE Que/uL Urine RBC 11-25 H 0-1 /HPF Urine WBC 51-100 H 0-1 /HPF Urine WBC Clumps (Auto) FEW 0-1 /HPF Urine Squamous Epithelial Cells FEW 0-2 /HPF Urine Non-Squamous Epithelial Cells 2 0-2 /HPF Urine Other Crystals (Auto) 5 None Seen /HPF Urine Bacteria RARE None Seen /HPF Urine Other Casts 6 None Seen /LPF Urine Random Creatinine 113.80 30-135 mg/dL Urine Random Sodium 31 L 40-220 mmol/l Urine Random Potassium 44 25-125 mmol/L Urine Random Chloride 39 L 110-250 mmol/L Test 04/22/25 14:57 Range/Units Segmented Neutrophils % 70 40-70 % Band Neutrophils % 26 H 0-2 % Lymphocytes % (Manual) 1 L 22-44 % Monocytes % (Manual) 3 2-9 % Differential Comment MANUAL DIFFERENTIAL White Cell Morphology Comment Platelet Morphology Comment MARKED DECREASE Red Blood Cell Morphology See comments Current Medications Medications (Trade) Dose Ordered Sig/Roberth Route PRN Reason Start Time Stop Time Status Last Admin Dose Admin Acetaminophen (TYLenol 325MG TAB) 650 mg Q4H PRN PO MILD PAIN (1-3) 04/22/25 20:00 05/22/25 19:59 04/23/25 03:33 650 MG Acetaminophen (TYLenol 325MG TAB) 650 mg Q6H PRN PO TEMPERATURE GREATER THAN 101.5 04/22/25 20:00 05/22/25 19:59 04/23/25 10:02 650 MG Ceftriaxone Sodium 1 gm/ Sodium Chloride 50 ml @ 100 mls/hr BID IV 04/22/25 21:00 04/22/25 19:59 DC Ceftriaxone Sodium (ROCEphine 1G INJ) 1 gm BID IVPB 04/22/25 21:00 04/22/25 20:44 DC Ceftriaxone Sodium (ROCEphine 1G INJ) 1 gm BID IVPB 04/23/25 09:00 05/03/25 08:59 04/23/25 09:33 1 GM Dextrose (D50w) 50 ml AD PRN IV HYPOGLYCEMIA PROTOCOL 04/22/25 20:00 05/22/25 19:59 Famotidine (Pepcid 20mg Tab) 20 mg DAILY PO 04/23/25 09:00 05/23/25 08:59 04/23/25 09:33 20 MG Glucagon (Glucagon 1mg Kit) 1 mg AD PRN IM HYPOGLYCEMIA PROTOCOL 04/22/25 20:00 05/22/25 19:59 Hydromorphone HCl (DiLAUDid 0.5MG INJ) 0.5 mg Q6H PRN IVP SEVERE PAIN (7-10) 04/23/25 14:00 04/28/25 13:59 04/23/25 14:15 0.5 MG Insulin Human Regular (humuLIN R 100 UNIT/ML 3ML) INSULIN SLIDING SCAL... ACHS SQ 04/22/25 21:00 05/22/25 20:59 04/23/25 07:30 4 UNIT Lactated Ringer's 1,000 ml @ 100 mls/hr Q10H IV 04/22/25 20:00 04/23/25 10:09 DC 04/23/25 06:00 100 MLS/HR Magnesium Sulfate 50 ml @ 0 mls/hr PROTOCOL PRN IV OTHER [SEE ORDER COMMENTS] 04/22/25 20:00 05/22/25 19:59 Methylprednisolone Sodium Succinate (Solu-medROL 125MG) 125 mg Q6H IVP 04/23/25 08:00 05/23/25 07:59 04/23/25 13:06 125 MG Ondansetron HCl (zoFRAN 4MG INJ) 4 mg Q6H PRN IV NAUSEA/VOMITING 04/22/25 20:00 05/22/25 19:59 04/22/25 20:10 4 MG Potassium Chloride 100 ml @ 100 mls/hr AD PRN IV POTASSIUM PROTOCOL 04/22/25 20:00 05/22/25 19:59 Potassium Chloride (K-Dur/Klor-Con 20meq) 20 meq AD PRN PO POTASSIUM PROTOCOL 04/22/25 20:00 05/22/25 19:59 Potassium Chloride (KCl 10% Elixir 20meq/15ml) 20 meq AD PRN PO POTASSIUM PROTOCOL 04/22/25 20:00 05/22/25 19:59 Sodium Zirconium Cyclosilicate (Lokelma 10gm Powder) 10 gm TID PO 04/23/25 21:00 04/23/25 14:11 DC Diagnostics / Radiology: [COPY/PASTE HERE IF NO REPORTS PLEASE DELETE SECTION] Assessment: Decompensated cirrhosis HTN Esophageal varies Plan: Patient with known cirrhosis however lost to follow-up. Hold off on EGD given no overt GI bleeding and stable hemoglobin We will monitor closely BEHZAD KOCH RE[employer]IG[employer]ATOR GLAZIER Apr 23, 2025 15:03
--- NOTE | 2025-04-23 17:20 | NUR ---
REPORT GIVEN TO NURSE. PATIENT TRANSPORTED UPSTAIRS TO THIRD FLOOR.
[2025-04-23 17:25] VITALS: BP 135/69; PULSE 90; RESP 18; TEMP 98
--- NOTE | 2025-04-23 17:25 | NUR ---
ADMIT RECEIVED PATIENT FROM THE EMERGENCY DEPARTMENT AAOX3 , RESTING IN BED ORIENTED TO CALL [facility].
[2025-04-23 19:00] VITALS: BP 135/59; PULSE 94; RESP 24; TEMP 98.6
[2025-04-23] MEDS ORDERED: NA ZIRCON CYCLOSIL(LOKELMA 10GM) PO SCH (21:00)
--- NOTE | 2025-04-23 22:07 | NUR ---
TELE PENDING TELE PLACEMENT NO TELE'S AVAILABLE AT THIS TIME.
--- NOTE | 2025-04-23 22:10 | NUR ---
TELE #[id number] APPLIED TO PT. TELE MONITOR SHOWING SR 100.
[2025-04-23 23:20] VITALS: O2SAT 97
[2025-04-23 23:30] VITALS: BP 138/62; PULSE 90; RESP 24; TEMP 97.9
[2025-04-24] VITALS (7 sets, daily range): BP systolic 127–165; BP diastolic 66–89; PULSE 89–102; RESP 18–22; TEMP 97.5–98.1; O2SAT 93–95
[2025-04-24 07:52] LABS: IMMATURE GRANULOCYTE ABSOLUTE 0.37 K/uL (0-1); NUCLEATED RED BLOOD CELLS 0.4 % (0.0-0.19); PLATELET COUNT (AUTO) 35 K/uL (130-400); RED BLOOD CELL COUNT(AUTO) 4.45 MIL/uL (4.00-5.50); RED CELL DISTRIBUTION WIDTH 20.1 % (11.0-15.5); WHITE BLOOD COUNT (AUTO) 5.2 K/uL (4.8-10.8)
[2025-04-24 08:09] LABS: ASPARTATE AMINOTRANSFERASE 64.0 U/L (10-37); CREATININE 1.0 mg/dL (0.5-1.0); GLOMERULAR FILTR. RATE CALC 67.0 mL/min (>90); GLUCOSE,RANDOM 339.0 mg/dL (70-105); LDL DIRECT 39.0 mg/dL (0-99); SODIUM SERUM 134.0 mmol/L (136-145); TOTAL PROTEIN, SERUM 7.4 g/dL (6.0-8.3); UREA NITROGEN, BLOOD 44.0 mg/dL (7-18)
--- NOTE | 2025-04-24 10:12 | PN ---
[facility] PROGRESS NOTE Date of Service: Apr 24, 2025 Time of Service: 09:56 SUBJECTIVE: This is a 54-year-old female with past medical history of undiagnosed obstructive sleep apnea, diabetes type 2, hypertension, hyperlipidemia, hypothyroidism, restless leg syndrome, anxiety disorder,depression, lupus and severe morbid obesity who presents to the ED for complaints of severe low back p ain which started 2 weeks ago and getting worse for the past 2 days and patient reports she is taking prednisone 30mg po daily for her Lupus she said.Patient also reports she was recently seen in this ED for similar complaints and was diagnosed with acute lumbosacral myofascial strain. 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 Urinalysis consistent with urinary tract infection. CT abdomen and pelvis result revealed no acute intra-abdominal or pelvic pathology cirrhotic liver morphology with splenomegaly, consistent with portal hypertension. Bilateral renal cortical thickening may reflect renal parenchymal disease. While in the ER patient received Rocephin 1 g IV, 1 L NS bolus. We will admit patient for further medical management. 04/23/25 Patient was seen and examined at bedside. She was complaining of chest pain early in the morning but her EKG and troponin were normal. Patient says she got liver cirrhosis from taking Tylenol with codeine in the past for a long time. Remarkable labs are Na 129, K 6.4. Cl 98, BUN 44. Cr 1.2 with no anion gap. New EKG shows sinus rhythm with no tall T-waves or shortened QT interval. We will give her a dose of calcium gluconate and lokelma and recheck her labs. we will hold her iv fluids for now. Her urine anion gap is 36.0 mEq/l. Repeat potassium was 4.2 and 4.6. We will order CT lumbar spine and request nephro and cardio consults due to hyponatremia, RTA and cirrhosis with portal hypertension respectively. We will order lupus, complement , anemia panel due to her abnormal labs and h/o SLE. Hematology recommended solu medrol 125 q6. she might need hydrochloroquine upon discharge for SLE 04/24/25 Patient was seen and examined at bedside. She is complaining of widespread generalized body pain with tender points and generalized weakness, her CPK is going up, we will repeat it and start her on pregabalin. Her labs are improving. She had an EGD done last year that showed grade III varices but lost to follow up with TDS. No GI intervention as her Hb is stable. Will start her on vancomycin. Her home meds have been reconciled. She takes venlaflaxine and pramipexole for depression and restless leg syndrome respectively. Her elevated urine anion gap could be due to BALTAZAR or NSAID induced kidney injury but her creatinine is improving. Pending abdominal ultrasound and CT lumbar spine res ults. REVIEW OF SYSTEMS CONSTITUTIONAL: Denies fevers, chills, or night sweats. No unintentional weight loss reported. NEUROLOGICAL: Denies headache, amaurosis fugax, motor weakness, sensory deficit, vertigo/spinning sensation, gait abnormalities, or tremors. ENT: No hearing loss, otalgia, otorrhea, rhinitis, rhinorrhea, hoarseness, or sore throat. CARDIOVASCULAR: Denies any exertional angina, dyspnea on exertion, orthopnea, paroxysmal nocturnal dyspnea, palpitations, life-threatening arrhythmias, claudication. PULMONARY: Denies any shortness of breath, cough, phlegm/sputum, hemoptysis, pleuritic chest pain. SLEEP: Denies morning headaches, daytime somnolence or napping. Denies difficulty falling asleep, staying asleep, waking from sleep. Denies knowledge of snoring. GASTROINTESTINAL: Denies any type of dysphagia to either liquids or solids. Denies nausea, vomiting, pyrosis, early satiety, abdominal pain, diarrhea, constipation, or changes in stool consistency or caliber. Denies coffee-ground emesis, hematemesis, hematochezia, or melanotic stools. GENITOURINARY: Denies frequency, urgency, nocturia, hematuria or incontinence (Storage/Irritative symptoms.) Low urinary stream, straining to void, urinary intermittency or hesitancy, splitting of the voiding stream, terminal dribbling. ENDOCRINOLOGIC: Denies polyuria, polydipsia, polyphagia or heat/cold intolerances. HEMATOLOGIC: Denies thrombophilia/previous clots, or coagulopathy/bleeding disorders. ONCOLOGIC: Denies personal history of malignancy. DERMATOLOGIC: Denies rashes or pruritus. PSYCHIATRIC: Denies any suicidal or homicidal ideation. Denies hallucinations. PHYSICAL EXAM GENERAL APPEARANCE: The patient is awake, alert, and oriented, in no acute cardiopulmonary distress. NEUROLOGICAL: Cranial nerves II-XII grossly intact. Motor is 5/5 in bilateral upper and lower extremities proximal to distal. No sensory deficits. HEENT: Face is symmetric. Pupils are equal and reactive. Extraocular movements are intact. NECK: Supple. No JVD. No thyromegaly. No submental, submandibular, pre- /postauricular, occipital or supraclavicular lymphadenopathy. CHEST: Normal chest expansion. No Telemetry. LUNGS: Absence of any rales, rhonchi or any wheezing. CARDIOVASCULAR: Regular. S1 and S2 normal. No appreciable rubs, murmurs or gallops. ABDOMEN: Soft, nontender, and nondistended. There is no rebound, voluntary guarding, or rigidity. : Deferred. No Nolasco. EXTREMITIES: Non-edematous and not cyanotic. No clubbing. Good capillary refill. SKIN: No skin breakdown. Vital Signs (last 8hr) Date Time Temp Pulse Resp B/P (MAP) Pulse Ox O2 Delivery O2 Flow Rate FiO2 04/24/25 07:41 97.5 95 19 165/87 95 Room Air 04/24/25 04:00 97.5 92 22 128/66 94 Room Air LABS: Laboratory: Test 04/24/25 07:34 04/24/25 05:20 04/23/25 19:27 04/23/25 13:33 Range/Units White Blood Count 5.2 4.8-10.8 K/uL Red Blood Count 4.45 4.00-5.50 MIL/uL Hemoglobin 11.0 L 12.0-16.0 g/dL Hematocrit 35.6 L 36-48 % Mean Corpuscular Volume 80.0 79-99 fL Mean Corpuscular Hemoglobin 24.7 L 27.0-33.0 pg Mean Corpuscular Hemoglobin Concent 30.9 L 32.0-36.0 g/dL Red Cell Distribution Width 20.1 H 11.0-15.5 % Platelet Count 35 L 130-400 K/uL Mean Platelet Volume 7.5-10.5 fL Immature Granulocyte % (Auto) 7.1 H 0-1 % Neutrophils (%) (Auto) 83.1 H 40.0-77.0 % Lymphocytes (%) (Auto) 4.6 L 21.0-51.0 % Monocytes (%) (Auto) 4.4 3.0-13.0 % Eosinophils (%) (Auto) 0.0 0.0-8.0 % Basophils (%) (Auto) 0.8 0.0-5.0 % Neutrophils # (Auto) 4.3 1.8-7.7 K/uL Lymphocytes # (Auto) 0.2 L 1.0-4.8 K/uL Monocytes # (Auto) 0.2 0.1-1.0 K/uL Eosinophils # (Auto) 0.00 0.00-0.70 K/uL Basophils # (Auto) 0.04 0.00-0.20 K/uL Absolute Immature Granulocyte (auto 0.37 0-1 K/uL Nucleated Red Blood Cells 0.4 H 0.0-0.19 % Lupus Anticoag PTT Mix/Correction Hexagonal Phospholipid Neutralizat Sodium Level 134 L 136-145 mmol/L Potassium Level 4.5 3.5-5.1 mmol/L Chloride Level 101 101-111 mmol/L Carbon Dioxide Level 27 21-32 mmol/L Blood Urea Nitrogen 44 H 7-18 mg/dL Creatinine 1.0 0.5-1.0 mg/dL Glomerular Filtration Rate Calc 67 >90 mL/min Random Glucose 339 H 70-105 mg/dL Total Calcium 8.9 8.5-10.1 mg/dL Total Bilirubin 1.6 H 0.2-1.0 mg/dL Aspartate Amino Transf (AST/SGOT) 64 H 10-37 U/L Alanine Aminotransferase (ALT/SGPT) 59 12-78 U/L Alkaline Phosphatase 99 50-136 U/L Total Protein 7.4 6.0-8.3 g/dL Albumin 2.3 L 3.5-5.0 g/dL Triglycerides Level 172 30-200 mg/dL Cholesterol Level 109 # <200 mg/dL LDL Cholesterol 39 0-99 mg/dL HDL Cholesterol 14 L 35-85 mg/dL Whole Blood Glucose 322 H 70-110 MG/DL Bedside Glucose Comment Notified Nurse Lactic Acid Level 5.0 H 0.8-2.5 mmol/L Total Creatine Kinase 296 H 21-232 U/L Test 04/23/25 11:15 04/23/25 09:49 04/23/25 09:47 04/23/25 07:10 Range/Units Prothrombin Time 15.4 H 9.6-11.6 SEC Prothromb Time International Ratio 1.51 H 0.85-1.15 Activated Partial Thromboplast Time 36.5 H 26.3-35.5 SEC Fibrinogen 397 H 180-350 mg/dL Whole Blood Ketones Quantitative 0.2 0.0-0.6 mmol/L Uric Acid 3.7 2.6-7.2 mg/dL Lactate Dehydrogenase 304 H 81-234 U/L Thyroid Stimulating Hormone (TSH) 3.08 # 0.36-3.74 uIU/mL Blood Gas Specimen Type Venous Arterial Blood Oxygen Saturation 67.4 L 94.0-98.0 % Venous Blood pH 7.311 L 7.320-7.430 Venous Blood pCO2 at Patient Temp 33 L 38-54 Venous Blood pO2 at Patient Temp 37.7 23.0-48.0 mmHg Venous Blood HCO3 16.1 L 22.0-29.0 Venous Blood Base Excess -8.9 L -2.0-3.0 Blood Gas Temperature 37.0 35.5-37.0 CELSIUS Blood Gas Vent Mode RA ROOM AIR FiO2 21.0 % Blood Gas Specimen Comment VENOUS Erythrocyte Sedimentation Rate 40 H 0-30 MM/HR Reticulocyte Count (auto) 2.01575 H 0.42-2.23 % Immature Reticulocyte Fraction 30.20 H 0.18-0.48 % Iron Level 25 #L 50-170 mcg/dL Total Iron Binding Capacity 266 250-450 mcg/dL Percent Iron Saturation 9.3 L 22-44 % Ferritin 78 15-150 ng/mL Vitamin B12 Level 1159 H 193-986 pg/mL Test 04/23/25 06:33 04/22/25 18:59 04/22/25 14:57 Range/Units Ionized Calcium 1.01 L 1.15-1.33 MMOL/L Magnesium Level 1.70 L 1.80-2.40 mg/dL Troponin I High Sensitivity 42 4-50 ng/L Urine Color YELLOW YELLOW Urine Appearance CLOUDY H CLEAR Urine pH 6.0 5.0-8.0 Urine Specific [place] 1.014 1.001-1.031 Urine Protein 70 H NEGATIVE mg/dL Urine Glucose (UA) 300 H NEGATIVE mg/dL Urine Ketones NEGATIVE NEGATIVE mg/dL Urine Occult Blood MODERATE H NEGATIVE Urine Nitrate NEGATIVE NEGATIVE Urine Bilirubin NEGATIVE NEGATIVE mg/dL Urine Urobilinogen 0.2 0.2-1.0 mg/dL Urine Leukocyte Esterase 500 H NEGATIVE Que/uL Urine RBC 11-25 H 0-1 /HPF Urine WBC 51-100 H 0-1 /HPF Urine WBC Clumps (Auto) FEW 0-1 /HPF Urine Squamous Epithelial Cells FEW 0-2 /HPF Urine Non-Squamous Epithelial Cells 2 0-2 /HPF Urine Other Crystals (Auto) 5 None Seen /HPF Urine Bacteria RARE None Seen /HPF Urine Other Casts 6 None Seen /LPF Urine Random Creatinine 113.80 30-135 mg/dL Urine Random Sodium 31 L 40-220 mmol/l Urine Random Potassium 44 25-125 mmol/L Urine Random Chloride 39 L 110-250 mmol/L Segmented Neutrophils % 70 40-70 % Band Neutrophils % 26 H 0-2 % Lymphocytes % (Manual) 1 L 22-44 % Monocytes % (Manual) 3 2-9 % Differential Comment MANUAL DIFFERENTIAL White Cell Morphology Comment Platelet Morphology Comment MARKED DECREASE Red Blood Cell Morphology See comments Current Medications Medications (Trade) Dose Ordered Sig/Roberth Route PRN Reason Start Time Stop Time Status Last Admin Dose Admin Acetaminophen (TYLenol 325MG TAB) 650 mg Q4H PRN PO MILD PAIN (1-3) 04/22/25 20:00 05/22/25 19:59 04/23/25 03:33 650 MG Acetaminophen (TYLenol 325MG TAB) 650 mg Q6H PRN PO TEMPERATURE GREATER THAN 101.5 04/22/25 20:00 05/22/25 19:59 04/23/25 10:02 650 MG Ceftriaxone Sodium 1 gm/ Sodium Chloride 50 ml @ 100 mls/hr BID IV 04/22/25 21:00 04/22/25 19:59 DC Ceftriaxone Sodium (ROCEphine 1G INJ) 1 gm BID IVPB 04/22/25 21:00 04/22/25 20:44 DC Ceftriaxone Sodium (ROCEphine 1G INJ) 1 gm BID IVPB 04/23/25 09:00 05/03/25 08:59 04/23/25 20:26 1 GM Dextrose (D50w) 50 ml AD PRN IV HYPOGLYCEMIA PROTOCOL 04/22/25 20:00 05/22/25 19:59 Famotidine (Pepcid 20mg Tab) 20 mg DAILY PO 04/23/25 09:00 04/24/25 09:48 DC 04/23/25 09:33 20 MG Glucagon (Glucagon 1mg Kit) 1 mg AD PRN IM HYPOGLYCEMIA PROTOCOL 04/22/25 20:00 05/22/25 19:59 Hydromorphone HCl (DiLAUDid 0.5MG INJ) 0.5 mg Q6H PRN IVP SEVERE PAIN (7-10) 04/23/25 14:00 04/28/25 13:59 04/24/25 07:53 0.5 MG Insulin Human Regular (humuLIN R 100 UNIT/ML 3ML) INSULIN SLIDING SCAL... ACHS SQ 04/22/25 21:00 05/22/25 20:59 04/24/25 06:31 7 UNIT Lactated Ringer's 1,000 ml @ 100 mls/hr Q10H IV 04/22/25 20:00 04/23/25 10:09 DC 04/23/25 06:00 100 MLS/HR Magnesium Sulfate 50 ml @ 0 mls/hr PROTOCOL PRN IV OTHER [SEE ORDER COMMENTS] 04/22/25 20:00 05/22/25 19:59 Methylprednisolone Sodium Succinate (Solu-medROL 125MG) 125 mg Q6H IVP 04/23/25 08:00 05/23/25 07:59 04/24/25 02:11 125 MG Ondansetron HCl (zoFRAN 4MG INJ) 4 mg Q6H PRN IV NAUSEA/VOMITING 04/22/25 20:00 05/22/25 19:59 04/22/25 20:10 4 MG Pantoprazole Sodium (PROTonix 40MG INJ) 40 mg DAILY IVP 04/24/25 10:00 05/24/25 09:59 Potassium Chloride 100 ml @ 100 mls/hr AD PRN IV POTASSIUM PROTOCOL 04/22/25 20:00 05/22/25 19:59 Potassium Chloride (K-Dur/Klor-Con 20meq) 20 meq AD PRN PO POTASSIUM PROTOCOL 04/22/25 20:00 05/22/25 19:59 Potassium Chloride (KCl 10% Elixir 20meq/15ml) 20 meq AD PRN PO POTASSIUM PROTOCOL 04/22/25 20:00 05/22/25 19:59 Sodium Zirconium Cyclosilicate (Lokelma 10gm Powder) 10 gm TID PO 04/23/25 21:00 04/23/25 14:11 DC DIAGNOSTICS / RADIOLOGY: [ ] ASSESSMENT: Intractable low back pain due to spinal stenosis POA 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 POA Acute urinary tract infection due to MRSA POA Chronic anemia POA Hyponatremia POA Acute kidney injury on renal insufficiency POA Hyperglycemia due to uncontrolled diabetes POA Hypocalcemia POA Cirrhotic liver with splenomegaly consistent with portal hypertension per CT POA Esophageal varices Renal parenchymal disease per CT POA Hypothyroidism POA Hypocalcemia POA Hyperlipidemia POA Hypertension POA Anxiety disorder POA Depression POA Restless leg syndrome POA Suspected obstructive sleep apnea untreated POA Morbid obesity POA PLAN: Intractable lower back pain Continue multimodal pain management: acetaminophen, topical agents, consider gabapentin if neuropathic. Currently on dilaudid CT lumbar spine ESR elevated Thrombocytopenia due to ITP Monitor CBC daily; trend platelets. Rule out DIC, splenic sequestration (cirrhosis-related), and medication-induced causes. Avoid NSAIDs, hematology consult Currently on solu medrol 125mg q6 . Acute UTI Currently on rocephin Monitor for signs of urosepsis Encourage hydration and bladder care Hyponatremia Treat underlying hyperglycemia; avoid rapid sodium correction. Monitor serum Na closely; consider fluid restriction if dilutional. Cirrhosis with portal hypertension Monitor for decompensation: encephalopathy, ascites, variceal bleeding. Consider beta sergio for variceal prophylaxis. Monitor LFTs, INR, and ammonia Her MELD- Na score is 24 points, 14-15% estimated 90 day mortality Hyperglycemia (Uncontrolled Diabetes) Start basal/bolus insulin regimen; monitor blood glucose QID. Educate on diet and insulin compliance; monitor for DKA if concern. Correct electrolytes accordingly. Chronic anemia Monitor trends; assess for iron/B12/folate deficiency. Avoid transfusion unless symptomatic or Hgb <7. GI consult We will admit patient in medical telemetry We will start on consistent carb diet We will start on LR at 100 x 2 bags We will start patient on Rocephin 1 g IV b.i.d. for empiric coverage We will start on Famotidine 20 mg p.o. daily for GI prophylaxis We will replace electrolytes as needed per protocol We will start on insulin sliding scale AC & HS with hypoglycemia protocol We will add prn medication for fever,pain,cough ,nausea and vomiting We will reconcile home meds once medlist available We will seek Hematology consultation We will request labs in am Further orders to follow depending on above results Case discussed with attending physician and came up with above treatment and plan of care. ATTESTATION BY PHYSICIAN I have seen and examined the patient. I reviewed the documentation, medical decision making, and treatment plan as noted by the resident provider above. I agree with the findings and plan of care. Cory Pimentel MD, NIHITHA MD Apr 24, 2025 10:12
--- NOTE | 2025-04-24 10:24 | CONS ---
REFERRING PHYSICIAN: Sandeep Naylor MD REASON FOR CONSULTATION: Renal failure. HISTORY OF PRESENT ILLNESS: A 54-year-old female with history of diabetes mellitus, hypertension. She has history of sleep apnea. The patient presented to the hospital with complaints of lower back pain. The patient had been taking prednisone as an outpatient. In the Emergency Room, the patient was found to have significant renal dysfunction with an elevated BUN and creatinine as well as significant hyperkalemia. The patient was treated medically for the hyperkalemia. Renal function did improve with hydration and she is being seen in consultation for all of the above. PAST MEDICAL HISTORY: Diabetes mellitus, hypertension, sleep apnea. PAST SURGICAL HISTORY: Cholecystectomy. SOCIAL HISTORY: She lives independently. There is no tobacco use. FAMILY HISTORY: There is no renal disease in the family. REVIEW OF SYSTEMS: GENERAL: She is feeling weak and tired. HEENT: No change in vision. No change in hearing. No nasal discharge. No sore throat. CARDIOVASCULAR: There is no current chest pain or palpitations. PULMONARY: She has chronic shortness of breath. GASTROINTESTINAL: She is tolerating diet. MUSCULOSKELETAL: Complains of weakness. NEUROLOGIC: No seizures or focal deficits. PSYCHIATRIC: No history of hallucinations or psychosis. ENDOCRINE: Diabetes mellitus. No history of thyroid disease. HEME: History of anemia. No history of malignancy. PHYSICAL EXAMINATION: VITAL SIGNS: Blood pressure 128/66, pulse in the 90s, afebrile. GENERAL: Chronically ill female, obese, lying in bed on the medical floor. HEENT: Head is atraumatic. Pupils are equal, roving to light. Oropharynx is without exudate. Nares clear. NECK: There is no JVP. There is no thyromegaly, no mass. CARDIOVASCULAR: Regular. There is no S3 or S4 gallop. LUNGS: Coarse with equal thoracic movement. ABDOMEN: Soft, nondistended, and nontender. EXTREMITIES: She does not have any edema. NEUROLOGICAL: She is awake. She is alert. She is oriented. SKIN: Reveals no rash or nodules. BACK: There is no CVA tenderness. No back deformities. LABORATORY DATA: Sodium is 134, BUN 44, creatinine is 1. Initial creatinine upon admission was 1.2, hemoglobin 11, hematocrit 35, white cell count 5,000, platelet count 35,000. Urinalysis does reveal protein in the urine. IMPRESSION: * Acute renal failure. * Hyperkalemia. * Hypertension. * Cirrhosis. PLAN: The patient with significant renal dysfunction. Creatinine did improve with the IV hydration. The patient's hyperkalemia has resolved and we will continue to follow the chemistries closely. The patient remains on Rocephin for the urinary tract infection. No further need for Lokelma at this time. We will continue to monitor the chemistries closely. We will send off a spot urine for protein and creatinine to quantify any amount of proteinuria. All labs to be repeated in the morning. TID: [id number] RECEIPT: [id number]
[2025-04-24] MEDS ORDERED: VANCOMYCIN PROTOCOL PER PHARMACY IV SCH (10:30)
--- NOTE | 2025-04-24 10:59 | HMCIMG ---
EXAMINATION: ULTRASOUND OF THE ABDOMEN (LIMITED) WITH COLOR DOPPLER. CLINICAL HISTORY: Cirrhosis. COMPARISON: CT abdomen and pelvis without contrast dated 04/22/2025. TECHNIQUE: Real-time grayscale ultrasound images of the abdomen. In addition, color Doppler is medically necessary to perform in order to evaluate vascularity and blood flow. FINDINGS: Liver: Normal in caliber, the right hepatic lobe measures 14.1 cm in the craniocaudal dimension. There is coarse echotexture of the hepatic parenchyma. There is no intrahepatic biliary ductal dilatation. There is normal spectral Doppler of the main portal vein. There is a hypoechoic lesion that measures 1.3 x 1.1 x 1.7 cm in the right lobe. Gallbladder: Post cholecystectomy status. Common bile duct is normal in caliber, measuring 0.5 cm. Pancreas: Obscured by overlying bowel gas The right kidney is normal in caliber, the right kidney measures 13.4 x 6.6 x 6.4 cm in craniocaudal, AP, and transverse dimensions respectively. There is normal renal cortical thickness, and cortical echogenicity. There is no renal calculus. There is moderate right hydronephrosis. IMPRESSION: Chronic hepatic disease. Hypoechoic lesion in the right lobe of the liver may reflect complex cyst. Post cholecystectomy status. Moderate right hydronephrosis. Recommend CT abdomen and pelvis with contrast. /Kushal
--- NOTE | 2025-04-24 11:52 | PN ---
GASTROENTEROLOGY PROGRESS NOTE Date of Visit: Apr 24, 2025 Time of Visit: 11:52 Events / Notes: [ ] Review of Systems: CONSTITUTIONAL: No malaise or change in sensation of wellbeing. ENMT: No rhinorrhea, otorrhea, sinus pain, ear ache. CARDIOVASCULAR: No angina, palpitations, orthopnea or paroxysmal dyspnea. RESPIRATORY: No SOB. GASTROINTESTINAL: No abdominal pain, nausea, vomiting, diarrhea, hematemesis, melena or change in the patient's habitual bowel movements consistency/number. GENITOURINARY: No dysuria, hematuria or change in bladder continence. MUSCULOSKELETAL: No new muscle pain or decrease in muscular strength. No new joint swelling, redness or tenderness. SKIN: No new rash. Physical Exam: GEN: Awake, alert, oriented in person, time and place, and in no acute distress. HEENT: No sinus tenderness. Tympanic membranes were not examined. No rhinorrhea. Oral pharyngeal mucosa is pink, moist and within normal limits. Neck is supple with no cervical lymphadenopathy, thyromegaly or JVD. CHEST: Inspection, palpation and percussion of the chest were unremarkable. Lung auscultation revealed normal breath sounds bilaterally. CARDIAC: PMI is within normal limits. Heart sounds are regular. Normal S1, S2. No gallop or murmur. ABD: Soft, non-tender and not distended. No peritoneal signs on palpation. No organomegaly. Normal bowel sounds. EXT: No cyanosis or clubbing. No edema. SKIN: Intact. No rashes. JOINTS: No evidence of synovitis or acute arthritis. NEURO: Alert and oriented to name, place and person. Cranial nerve examination is unremarkable. No focal motor deficits. Normal speech. Gait is normal. Strength is normal. Vital Signs (last 8hr) Date Time Temp Pulse Resp B/P (MAP) Pulse Ox O2 Delivery O2 Flow Rate FiO2 04/24/25 11:36 97.9 102 18 127/77 96 Room Air 04/24/25 07:41 97.5 95 19 165/87 95 Room Air 04/24/25 04:00 97.5 92 22 128/66 94 Room Air Laboratory: [ ] Laboratory: Test 04/24/25 10:30 04/24/25 07:34 04/23/25 19:27 04/23/25 13:33 Range/Units Whole Blood Glucose 399 H 70-110 MG/DL White Blood Count 5.2 4.8-10.8 K/uL Red Blood Count 4.45 4.00-5.50 MIL/uL Hemoglobin 11.0 L 12.0-16.0 g/dL Hematocrit 35.6 L 36-48 % Mean Corpuscular Volume 80.0 79-99 fL Mean Corpuscular Hemoglobin 24.7 L 27.0-33.0 pg Mean Corpuscular Hemoglobin Concent 30.9 L 32.0-36.0 g/dL Red Cell Distribution Width 20.1 H 11.0-15.5 % Platelet Count 35 L 130-400 K/uL Mean Platelet Volume 7.5-10.5 fL Immature Granulocyte % (Auto) 7.1 H 0-1 % Neutrophils (%) (Auto) 83.1 H 40.0-77.0 % Lymphocytes (%) (Auto) 4.6 L 21.0-51.0 % Monocytes (%) (Auto) 4.4 3.0-13.0 % Eosinophils (%) (Auto) 0.0 0.0-8.0 % Basophils (%) (Auto) 0.8 0.0-5.0 % Neutrophils # (Auto) 4.3 1.8-7.7 K/uL Lymphocytes # (Auto) 0.2 L 1.0-4.8 K/uL Monocytes # (Auto) 0.2 0.1-1.0 K/uL Eosinophils # (Auto) 0.00 0.00-0.70 K/uL Basophils # (Auto) 0.04 0.00-0.20 K/uL Absolute Immature Granulocyte (auto 0.37 0-1 K/uL Nucleated Red Blood Cells 0.4 H 0.0-0.19 % Lupus Anticoag PTT Mix/Correction Hexagonal Phospholipid Neutralizat Sodium Level 134 L 136-145 mmol/L Potassium Level 4.5 3.5-5.1 mmol/L Chloride Level 101 101-111 mmol/L Carbon Dioxide Level 27 21-32 mmol/L Blood Urea Nitrogen 44 H 7-18 mg/dL Creatinine 1.0 0.5-1.0 mg/dL Glomerular Filtration Rate Calc 67 >90 mL/min Random Glucose 339 H 70-105 mg/dL Total Calcium 8.9 8.5-10.1 mg/dL Total Bilirubin 1.6 H 0.2-1.0 mg/dL Aspartate Amino Transf (AST/SGOT) 64 H 10-37 U/L Alanine Aminotransferase (ALT/SGPT) 59 12-78 U/L Alkaline Phosphatase 99 50-136 U/L Total Protein 7.4 6.0-8.3 g/dL Albumin 2.3 L 3.5-5.0 g/dL Triglycerides Level 172 30-200 mg/dL Cholesterol Level 109 # <200 mg/dL LDL Cholesterol 39 0-99 mg/dL HDL Cholesterol 14 L 35-85 mg/dL Bedside Glucose Comment Notified Nurse Lactic Acid Level 5.0 H 0.8-2.5 mmol/L Total Creatine Kinase 296 H 21-232 U/L Test 04/23/25 11:15 04/23/25 09:49 04/23/25 09:47 04/23/25 07:10 Range/Units Prothrombin Time 15.4 H 9.6-11.6 SEC Prothromb Time International Ratio 1.51 H 0.85-1.15 Activated Partial Thromboplast Time 36.5 H 26.3-35.5 SEC Fibrinogen 397 H 180-350 mg/dL Whole Blood Ketones Quantitative 0.2 0.0-0.6 mmol/L Uric Acid 3.7 2.6-7.2 mg/dL Lactate Dehydrogenase 304 H 81-234 U/L Serum Osmolality 306 H 278-305 mOsm/kg Thyroid Stimulating Hormone (TSH) 3.08 # 0.36-3.74 uIU/mL Blood Gas Specimen Type Venous Arterial Blood Oxygen Saturation 67.4 L 94.0-98.0 % Venous Blood pH 7.311 L 7.320-7.430 Venous Blood pCO2 at Patient Temp 33 L 38-54 Venous Blood pO2 at Patient Temp 37.7 23.0-48.0 mmHg Venous Blood HCO3 16.1 L 22.0-29.0 Venous Blood Base Excess -8.9 L -2.0-3.0 Blood Gas Temperature 37.0 35.5-37.0 CELSIUS Blood Gas Vent Mode RA ROOM AIR FiO2 21.0 % Blood Gas Specimen Comment VENOUS Erythrocyte Sedimentation Rate 40 H 0-30 MM/HR Reticulocyte Count (auto) 2.20908 H 0.42-2.23 % Immature Reticulocyte Fraction 30.20 H 0.18-0.48 % Iron Level 25 #L 50-170 mcg/dL Total Iron Binding Capacity 266 250-450 mcg/dL Percent Iron Saturation 9.3 L 22-44 % Ferritin 78 15-150 ng/mL Vitamin B12 Level 1159 H 193-986 pg/mL Test 04/23/25 06:33 04/22/25 18:59 04/22/25 14:57 Range/Units Ionized Calcium 1.01 L 1.15-1.33 MMOL/L Magnesium Level 1.70 L 1.80-2.40 mg/dL Troponin I High Sensitivity 42 4-50 ng/L Urine Color YELLOW YELLOW Urine Appearance CLOUDY H CLEAR Urine pH 6.0 5.0-8.0 Urine Specific [place] 1.014 1.001-1.031 Urine Protein 70 H NEGATIVE mg/dL Urine Glucose (UA) 300 H NEGATIVE mg/dL Urine Ketones NEGATIVE NEGATIVE mg/dL Urine Occult Blood MODERATE H NEGATIVE Urine Nitrate NEGATIVE NEGATIVE Urine Bilirubin NEGATIVE NEGATIVE mg/dL Urine Urobilinogen 0.2 0.2-1.0 mg/dL Urine Leukocyte Esterase 500 H NEGATIVE Que/uL Urine RBC 11-25 H 0-1 /HPF Urine WBC 51-100 H 0-1 /HPF Urine WBC Clumps (Auto) FEW 0-1 /HPF Urine Squamous Epithelial Cells FEW 0-2 /HPF Urine Non-Squamous Epithelial Cells 2 0-2 /HPF Urine Other Crystals (Auto) 5 None Seen /HPF Urine Bacteria RARE None Seen /HPF Urine Other Casts 6 None Seen /LPF Urine Osmolality 352 50-1200 mOsm/kg Urine Random Creatinine 113.80 30-135 mg/dL Urine Random Sodium 31 L 40-220 mmol/l Urine Random Potassium 44 25-125 mmol/L Urine Random Chloride 39 L 110-250 mmol/L Segmented Neutrophils % 70 40-70 % Band Neutrophils % 26 H 0-2 % Lymphocytes % (Manual) 1 L 22-44 % Monocytes % (Manual) 3 2-9 % Differential Comment MANUAL DIFFERENTIAL White Cell Morphology Comment Platelet Morphology Comment MARKED DECREASE Red Blood Cell Morphology See comments Current Medications Medications (Trade) Dose Ordered Sig/Roberth Route PRN Reason Start Time Stop Time Status Last Admin Dose Admin Acetaminophen (TYLenol 325MG TAB) 650 mg Q4H PRN PO MILD PAIN (1-3) 04/22/25 20:00 05/22/25 19:59 04/23/25 03:33 650 MG Acetaminophen (TYLenol 325MG TAB) 650 mg Q6H PRN PO TEMPERATURE GREATER THAN 101.5 04/22/25 20:00 05/22/25 19:59 04/23/25 10:02 650 MG Ceftriaxone Sodium 1 gm/ Sodium Chloride 50 ml @ 100 mls/hr BID IV 04/22/25 21:00 04/22/25 19:59 DC Ceftriaxone Sodium (ROCEphine 1G INJ) 1 gm BID IVPB 04/22/25 21:00 04/22/25 20:44 DC Ceftriaxone Sodium (ROCEphine 1G INJ) 1 gm BID IVPB 04/23/25 09:00 05/03/25 08:59 04/24/25 10:02 1 GM Dextrose (D50w) 50 ml AD PRN IV HYPOGLYCEMIA PROTOCOL 04/22/25 20:00 05/22/25 19:59 Famotidine (Pepcid 20mg Tab) 20 mg DAILY PO 04/23/25 09:00 04/24/25 09:48 DC 04/23/25 09:33 20 MG Glucagon (Glucagon 1mg Kit) 1 mg AD PRN IM HYPOGLYCEMIA PROTOCOL 04/22/25 20:00 05/22/25 19:59 Hydromorphone HCl (DiLAUDid 0.5MG INJ) 0.5 mg Q6H PRN IVP SEVERE PAIN (7-10) 04/23/25 14:00 04/28/25 13:59 04/24/25 07:53 0.5 MG Insulin Glargine (LANtus 100 UNITS/ML 10 ML VIAL) 10 units HS SQ 04/24/25 21:00 05/24/25 20:59 Insulin Glargine (LANtus 100 UNITS/ML 10 ML VIAL) 10 units ONCE STAT SQ 04/24/25 10:54 04/24/25 11:00 DC 04/24/25 11:19 10 UNITS Insulin Human Regular (humuLIN R 100 UNIT/ML 3ML) INSULIN SLIDING SCAL... ACHS SQ 04/22/25 21:00 05/22/25 20:59 04/24/25 11:18 8 UNIT Lactated Ringer's 1,000 ml @ 100 mls/hr Q10H IV 04/22/25 20:00 04/23/25 10:09 DC 04/23/25 06:00 100 MLS/HR Magnesium Sulfate 50 ml @ 0 mls/hr PROTOCOL PRN IV OTHER [SEE ORDER COMMENTS] 04/22/25 20:00 05/22/25 19:59 Methylprednisolone Sodium Succinate (Solu-medROL 125MG) 125 mg Q6H IVP 04/23/25 08:00 05/23/25 07:59 04/24/25 10:02 125 MG Ondansetron HCl (zoFRAN 4MG INJ) 4 mg Q6H PRN IV NAUSEA/VOMITING 04/22/25 20:00 05/22/25 19:59 04/22/25 20:10 4 MG Pantoprazole Sodium (PROTonix 40MG INJ) 40 mg DAILY IVP 04/24/25 10:00 05/24/25 09:59 04/24/25 10:02 40 MG Potassium Chloride 100 ml @ 100 mls/hr AD PRN IV POTASSIUM PROTOCOL 04/22/25 20:00 05/22/25 19:59 Potassium Chloride (K-Dur/Klor-Con 20meq) 20 meq AD PRN PO POTASSIUM PROTOCOL 04/22/25 20:00 05/22/25 19:59 Potassium Chloride (KCl 10% Elixir 20meq/15ml) 20 meq AD PRN PO POTASSIUM PROTOCOL 04/22/25 20:00 05/22/25 19:59 Pregabalin ([id number]) 75 mg BID PO 04/24/25 21:00 05/24/25 20:59 Sodium Zirconium Cyclosilicate (Lokelma 10gm Powder) 10 gm TID PO 04/23/25 21:00 04/23/25 14:11 DC Vancomycin HCl 250 ml @ 125 mls/hr Q12H IV 04/24/25 23:00 05/04/25 22:59 Vancomycin HCl (Vancomycin Protocol) 1 each AD IV 04/24/25 10:30 05/08/25 10:29 Diagnostics / Radiology: [COPY/PASTE HERE IF NO REPORTS PLEASE DELETE SECTION] Assessment: Decompensated cirrhosis HTN Esophageal varies Plan: Patient with known cirrhosis however lost to follow-up. Hold off on EGD given no overt GI bleeding and stable hemoglobin We will monitor closely [facility] Apr 24, 2025 11:52
--- NOTE | 2025-04-24 12:43 | PN ---
LOCATION: 309. SUBJECTIVE: The patient is just complaining of generalized pain. She is admitted with sepsis and thrombocytopenia. She has a history of lupus and ITP, also has liver cirrhosis, very noncompliant about any kind of treatment. She has not come in for a year and a half for any of the followup. PHYSICAL EXAMINATION: GENERAL: Shows a pleasant woman. VITAL SIGNS: Blood pressure 165/87, pulse 65, respirations 20. HEENT: Benign. CHEST: Clear. ABDOMEN: Soft. EXTREMITIES: Show no edema. NEUROLOGIC: Alert and oriented. LABORATORY DATA: Repeat lab is pending from this morning. Last platelet count I have was 30,000. IMPRESSION: * Sepsis. * ITP. * Generalized body pain * Cirrhosis of the liver. * Other problems as listed. * Hyperglycemia. * Diabetes. PLAN: We will continue the steroids for now and see what her repeat platelet count is. If it does not come up, we will put her on ____ IV daily x 3. Wean off the steroids. Continue antibiotics. Pain management. The patient is medically improved. TID: [id number] RECEIPT: [id number]
[2025-04-24] MEDS: VANCOMYCIN 2GM/500 ML BAG 500 ML IV ONE (12:46)
--- NOTE | 2025-04-24 13:02 | HMCIMG ---
EXAM: CT Lumbar Spine Without IV Contrast CLINICAL HISTORY: Pain. TECHNIQUE: Spiral axial CT images through the lumbar spine were acquired, reconstructed in axial and sagittal projections, and imaged using soft tissue and bone algorithms. Reformatted/MPR images were performed. CT scan is done according to ALARA (As Low as Reasonably Achievable). CONTRAST: None. COMPARISON: X-ray lumbar spine dated 04/20/25. FINDINGS: No acute fracture. Normal lordotic curvature. Mild levoscoliosis. Normal vertebral body heights. Diffuse osteopenia. Moderate lumbar spondylosis with multilevel marginal osteophytes, facet arthropathy, and degenerative disc space reduction, most pronounced at L4-L5. The surrounding soft tissues are unremarkable. Individual spinal levels are described as follows: T12-L1: No disc bulge or herniation. No neural foraminal, lateral recess or spinal canal stenosis. L1-L2: No disc bulge or herniation. No neural foraminal, lateral recess or spinal canal stenosis. L2-L3: 6 mm diffuse disc bulge. Severe right and moderate left lateral recess and neural foraminal stenosis. Moderate spinal canal stenosis. L3-L4: 4 mm diffuse disc bulge. Moderate bilateral lateral recess and neural foraminal stenosis. Mild spinal canal stenosis. L4-L5: 6 mm diffuse disc bulge. Bilateral ligamentum flavum and facet hypertrophy. Severe bilateral lateral recess and neural foraminal stenosis. Moderate spinal canal stenosis. L5-S1: 3 mm diffuse disc bulge. Bilateral facet hypertrophy. Severe bilateral lateral recess and neural foraminal stenosis. Mild spinal canal stenosis. IMPRESSION: No fracture or dislocation in the lumbar spine. Moderate lumbar spondylosis with multilevel marginal osteophytes, facet arthropathy, and degenerative disc space reduction, most pronounced at L4-L5. Diffuse osteopenia. Mild levoscoliosis. Diffuse disc bulges from L2-L3 through L5-S1. Severe right and moderate left lateral recess and neural foraminal stenosis at L2-L3 with moderate spinal canal stenosis. Moderate bilateral lateral recess and neural foraminal stenosis at L3-L4 with mild spinal canal stenosis. Severe bilateral lateral recess and neural foraminal stenosis at L4-L5 with moderate spinal canal stenosis. Severe bilateral lateral recess and neural foraminal stenosis at L5-S1 with mild spinal canal stenosis. /[place]
[2025-04-24] MEDS: venLAFAXine HCL XR 37.5 MG CAP 37.5 MG CAP.ER.24H PO SCH (16:28)
--- NOTE | 2025-04-24 16:56 | CONS ---
CONSULT NOTE: endocrinology consult chief complaint: low back pain reason for consult: uncontrolled DM-2 Date of Service: Apr 24, 2025 this was a late dictation HISTORY OF PRESENT ILLNESS: This is a 54-year-old female with past medical history of undiagnosed obstructive sleep apnea, diabetes type 2, hypertension, hyperlipidemia, hypothyroidism, restless leg syndrome, anxiety disorder,depression, lupus and severe morbid obesity who presents to the ED for complaints of severe low back pain which started 2 weeks ago and getting worse for the past 2 days and patient reports she is taking prednisone 30mg po daily for her Lupus she said.Patient also reports she was recently seen in this ED for similar complaints and was diagnosed with acute lumbosacral myofascial strain. and patient was given pain meds and discharged home and came again today due to pain intensity is so severe and intolerable.Patient also reports that her whole body hurts more on muscle pain she said.Patient also reports she has muscle pain on her chest and it reproducible on light palpation.Patient Patient denies fever, palpitation, shortness for breath, bloody emesis, and bloody stool. Latest vital signs temperature 98.2, heart rate 78, blood pressure 128/62 saturation 98% on room air. Labs: WBC 5.6, neutrophils 89, Hemoglobin 11, hematocrit 35, platelet count 24. Sodium 129, potassium 4.7, chloride 96, BUN 37, creatinine 1.8, GFR disease three, glucose 318, total calcium 8.3. Urinalysis consistent with urinary tract infection. CT abdomen and pelvis result revealed no acute intra-abdominal or pelvic pathology cirrhotic liver morphology with splenomegaly, consistent with portal hypertension. Bilateral renal cortical thickening may reflect renal parenchymal disease. While in the ER patient received Rocephin 1 g IV, 1 L NS bolus. hba1c 9.2, home regimen: lantus 30 units daily and humalog 10 units tid before meals. patient glucose are elevated due to iv steroid MTP. REVIEW OF SYSTEMS CONSTITUTIONAL: Denies fevers, chills, or night sweats. No unintentional weight loss reported. NEUROLOGICAL: Denies headache, amaurosis fugax, motor weakness, sensory deficit, vertigo/spinning sensation, gait abnormalities, or tremors. ENT: No hearing loss, otalgia, otorrhea, rhinitis, rhinorrhea, hoarseness, or sore throat. CARDIOVASCULAR: Denies any exertional angina, dyspnea on exertion, orthopnea, paroxysmal nocturnal dyspnea, palpitations, life-threatening arrhythmias, claudication. PULMONARY: Denies any shortness of breath, cough, phlegm/sputum, hemoptysis, pleuritic chest pain. SLEEP: Denies morning headaches, daytime somnolence or napping. Denies difficulty falling asleep, staying asleep, waking from sleep. Denies knowledge of snoring. GASTROINTESTINAL: Denies any type of dysphagia to either liquids or solids. Denies nausea, vomiting, pyrosis, early satiety, abdominal pain, diarrhea, c onstipation, or changes in stool consistency or caliber. Denies coffee-ground emesis, hematemesis, hematochezia, or melanotic stools. GENITOURINARY: Denies frequency, urgency, nocturia, hematuria or incontinence (Storage/Irritative symptoms.) Low urinary stream, straining to void, urinary intermittency or hesitancy, splitting of the voiding stream, terminal dribbling. ENDOCRINOLOGIC: Denies polyuria, polydipsia, polyphagia or heat/cold intolerances. HEMATOLOGIC: Denies thrombophilia/previous clots, or coagulopathy/bleeding disorders. ONCOLOGIC: Denies personal history of malignancy. DERMATOLOGIC: Denies rashes or pruritus. PSYCHIATRIC: Denies any suicidal or homicidal ideation. Denies hallucinations. PAST MEDICAL HISTORY: [undiagnosed obstructive sleep apnea, diabetes type 2, hypertension, hyperlipidemia, hypothyroidism, restless leg syndrome, anxiety disorder,depression, lupus and severe morbid obesity ] PAST SURGICAL HISTORY: [ Cholecystectomy, tubal ligation] PAST SOCIAL HISTORY: [ Patient lives with . Patient denies alcohol tobacco and recreational drug use] FAMILY HISTORY: [ Hypertension, diabetes, cardiovascular disease and Alzheimer's disease ] Coded Allergies: No Known Allergies (Unverified Allergy, Unknown, 08/26/14) PHYSICAL EXAM GENERAL APPEARANCE: The patient is awake, alert, and oriented, in no acute cardiopulmonary distress. NEUROLOGICAL: Cranial nerves II-XII grossly intact. Motor is 5/5 in bilateral upper and lower extremities proximal to distal. No sensory deficits. HEENT: Face is symmetric. Pupils are equal and reactive. Extraocular movements are intact. NECK: Supple. No JVD. No thyromegaly. No submental, submandibular, pre-/postauricular, occipital or supraclavicular lymphadenopathy. CHEST: Normal chest expansion. No Telemetry. LUNGS: Absence of any rales, rhonchi or any wheezing. CARDIOVASCULAR: Regular. S1 and S2 normal. No appreciable rubs, murmurs or gallops. ABDOMEN: Soft, nontender, and nondistended. There is no rebound, voluntary guarding, or rigidity. : Deferred. No [place]. EXTREMITIES: Non-edematous and not cyanotic. No clubbing. Good capillary refill. SKIN: No skin breakdown. ASSESSMENT: hyperglycemia due to uncontrolled dm-2 and excaerbated due to iv steroids hba1c 9.2, home regimen: lantus 30 units daily and humalog 10 units tid before meals. patient glucose are elevated due to iv steroid MTP. patient will likely need high dose pre-meal insulin and lantus due to steroid induced post-prandial hyperglycemia. steroid will likely cause very high sugar after meals. glucose are elevated. Intractable low back pain POA Acute thrombocytopenia POA Acute urinary tract infection POA Chronic anemia POA Hyponatremia POA Acute kidney injury on renal insufficiency POA Hypocalcemia POA Cirrhotic liver with splenomegaly consistent with portal hypertension per CT POA Renal parenchymal disease per CT POA Hypothyroidism POA Hyperlipidemia POA Hypertension POA Anxiety disorder POA Depression POA Restless leg syndrome POA Suspected obstructive sleep apnea untreated POA Morbid obesity POA PLAN: increase lantus to 30 units daily start regular insulin 10 units qac before meals continue high dose ssi monitor glucose qx6 hourly educated on dm-2 thanks for allowing me to particpate in patient care and will continue to follow up. Vital Signs 04/23/25 04/24/25 23:20 15:37 Temp 98.1 Pulse 89 Resp 18 B/P (MAP) 142/82 Pulse Ox 95 O2 Delivery Room Air O2 Flow Rate 0 FiO2 21 Hematology Labs: Test 04/24/25 07:34 04/23/25 07:10 Range/Units White Blood Count 5.2 4.8-10.8 K/uL Red Blood Count 4.45 4.00-5.50 MIL/uL Hemoglobin 11.0 L 12.0-16.0 g/dL Hematocrit 35.6 L 36-48 % Mean Corpuscular Volume 80.0 79-99 fL Mean Corpuscular Hemoglobin 24.7 L 27.0-33.0 pg Mean Corpuscular Hemoglobin Concent 30.9 L 32.0-36.0 g/dL Red Cell Distribution Width 20.1 H 11.0-15.5 % Platelet Count 35 L 130-400 K/uL Mean Platelet Volume 7.5-10.5 fL Immature Granulocyte % (Auto) 7.1 H 0-1 % Neutrophils (%) (Auto) 83.1 H 40.0-77.0 % Lymphocytes (%) (Auto) 4.6 L 21.0-51.0 % Monocytes (%) (Auto) 4.4 3.0-13.0 % Eosinophils (%) (Auto) 0.0 0.0-8.0 % Basophils (%) (Auto) 0.8 0.0-5.0 % Neutrophils # (Auto) 4.3 1.8-7.7 K/uL Lymphocytes # (Auto) 0.2 L 1.0-4.8 K/uL Monocytes # (Auto) 0.2 0.1-1.0 K/uL Eosinophils # (Auto) 0.00 0.00-0.70 K/uL Basophils # (Auto) 0.04 0.00-0.20 K/uL Absolute Immature Granulocyte (auto 0.37 0-1 K/uL Nucleated Red Blood Cells 0.4 H 0.0-0.19 % Erythrocyte Sedimentation Rate 40 H 0-30 MM/HR Reticulocyte Count (auto) 2.64645 H 0.42-2.23 % Immature Reticulocyte Fraction 30.20 H 0.18-0.48 % Chemistry Labs: Test 04/24/25 15:32 04/24/25 07:34 04/23/25 19:27 04/23/25 13:33 Range/Units Whole Blood Glucose 426 *H 70-110 MG/DL Sodium Level 134 L 136-145 mmol/L Potassium Level 4.5 3.5-5.1 mmol/L Chloride Level 101 101-111 mmol/L Carbon Dioxide Level 27 21-32 mmol/L Blood Urea Nitrogen 44 H 7-18 mg/dL Creatinine 1.0 0.5-1.0 mg/dL Glomerular Filtration Rate Calc 67 >90 mL/min Random Glucose 339 H 70-105 mg/dL Total Calcium 8.9 8.5-10.1 mg/dL Total Bilirubin 1.6 H 0.2-1.0 mg/dL Aspartate Amino Transf (AST/SGOT) 64 H 10-37 U/L Alanine Aminotransferase (ALT/SGPT) 59 12-78 U/L Alkaline Phosphatase 99 50-136 U/L Total Protein 7.4 6.0-8.3 g/dL Albumin 2.3 L 3.5-5.0 g/dL Triglycerides Level 172 30-200 mg/dL Cholesterol Level 109 # <200 mg/dL LDL Cholesterol 39 0-99 mg/dL HDL Cholesterol 14 L 35-85 mg/dL Bedside Glucose Comment Notified Nurse Lactic Acid Level 5.0 H 0.8-2.5 mmol/L Total Creatine Kinase 296 H 21-232 U/L Test 04/23/25 11:15 04/23/25 09:49 04/23/25 07:10 04/23/25 06:33 Range/Units Whole Blood Ketones Quantitative 0.2 0.0-0.6 mmol/L Uric Acid 3.7 2.6-7.2 mg/dL Lactate Dehydrogenase 304 H 81-234 U/L Serum Osmolality 306 H 278-305 mOsm/kg Thyroid Stimulating Hormone (TSH) 3.08 # 0.36-3.74 uIU/mL Iron Level 25 #L 50-170 mcg/dL Total Iron Binding Capacity 266 250-450 mcg/dL Percent Iron Saturation 9.3 L 22-44 % Ferritin 78 15-150 ng/mL Vitamin B12 Level 1159 H 193-986 pg/mL Ionized Calcium 1.01 L 1.15-1.33 MMOL/L Magnesium Level 1.70 L 1.80-2.40 mg/dL Troponin I High Sensitivity 42 4-50 ng/L Coagulation Labs: Test 04/24/25 07:34 04/23/25 11:15 Range/Units Lupus Anticoag PTT Mix/Correction Hexagonal Phospholipid Neutralizat Prothrombin Time 15.4 H 9.6-11.6 SEC Prothromb Time International Ratio 1.51 H 0.85-1.15 Activated Partial Thromboplast Time 36.5 H 26.3-35.5 SEC Fibrinogen 397 H 180-350 mg/dL Current Medications Medications (Trade) Dose Ordered Sig/Roberth Route Start Time Stop Time Status Last Admin Dose Admin Atorvastatin Calcium (LIPItor 20MG) 20 mg HS PO 04/24/25 21:00 05/24/25 20:59 Ceftriaxone Sodium 1 gm/ Sodium Chloride 50 ml @ 100 mls/hr BID IV 04/22/25 21:00 04/22/25 19:59 DC Ceftriaxone Sodium (ROCEphine 1G INJ) 1 gm BID IVPB 04/22/25 21:00 04/22/25 20:44 DC Ceftriaxone Sodium (ROCEphine 1G INJ) 1 gm BID IVPB 04/23/25 09:00 05/03/25 08:59 04/24/25 10:02 1 GM Famotidine (Pepcid 20mg Tab) 20 mg DAILY PO 04/23/25 09:00 04/24/25 09:48 DC 04/23/25 09:33 20 MG Gabapentin (NEURontin 300 MG CAP) 300 mg BID PO 04/24/25 21:00 05/24/25 20:59 Insulin Glargine (LANtus 100 UNITS/ML 10 ML VIAL) 10 units HS SQ 04/24/25 21:00 05/24/25 20:59 Insulin Glargine (LANtus 100 UNITS/ML 10 ML VIAL) 10 units ONCE STAT SQ 04/24/25 10:54 04/24/25 11:00 DC 04/24/25 11:19 10 UNITS Insulin Glargine (LANtus 100 UNITS/ML 10 ML VIAL) 15 units HS SQ 04/24/25 21:00 05/24/25 20:59 UNV Insulin Human Regular (humuLIN R 100 UNIT/ML 3ML) 5 unit TIDAC SQ 04/24/25 17:00 05/24/25 16:59 UNV Insulin Human Regular (humuLIN R 100 UNIT/ML 3ML) INSULIN SLIDING SCAL... ACHS SQ 04/22/25 21:00 04/24/25 16:16 DC 04/24/25 11:18 8 UNIT Insulin Human Regular (humuLIN R 100 UNIT/ML 3ML) INSULIN SLIDING SCAL... ACHS SQ 04/24/25 16:30 05/24/25 16:29 04/24/25 16:35 16 UNIT Lactated Ringer's 1,000 ml @ 100 mls/hr Q10H IV 04/22/25 20:00 04/23/25 10:09 DC 04/23/25 06:00 100 MLS/HR Levothyroxine Sodium (SYNTHroid 125MCG TAB) 125 mcg DAILY@0630 PO 04/25/25 06:30 05/25/25 06:29 Methylprednisolone Sodium Succinate (Solu-medROL 125MG) 125 mg Q6H IVP 04/23/25 08:00 05/23/25 07:59 04/24/25 14:29 125 MG Metoprolol Succinate (TopROL XL) 50 mg AM PO 04/25/25 09:00 05/25/25 08:59 Pantoprazole Sodium (PROTonix 40MG INJ) 40 mg DAILY IVP 04/24/25 10:00 05/24/25 09:59 04/24/25 10:02 40 MG Pramipexole Dihydrochloride (miraPEX 0.25MG TAB) 0.5 mg HS PO 04/24/25 21:00 05/24/25 20:59 Pregabalin ([id number]) 75 mg BID PO 04/24/25 21:00 04/24/25 14:49 DC Sodium Zirconium Cyclosilicate (Lokelma 10gm Powder) 10 gm TID PO 04/23/25 21:00 04/23/25 14:11 DC Vancomycin HCl 250 ml @ 125 mls/hr Q12H IV 04/24/25 23:00 05/04/25 22:59 Vancomycin HCl (Vancomycin Protocol) 1 each AD IV 04/24/25 10:30 05/08/25 10:29 Venlafaxine HCl (EffEXOR XR 37.5mg CAP) 37.5 mg DAILY PO 04/24/25 16:00 05/24/25 15:59 04/24/25 16:28 37.5 MG Venlafaxine HCl (EffEXOR XR 37.5mg CAP) 37.5 mg DAILY PO 04/25/25 09:00 04/24/25 14:50 PARAG FERNANDEZ MD Apr 24, 2025 16:56
[2025-04-24] MEDS: GABAPENTIN 300 MG CAPSULE PO SCH (19:57)
--- NOTE | 2025-04-24 20:00 | NUR ---
MEDS SHIFT ASSESSMENT DONE, PLEASE REFER TO CHART. DUE MEDS ADMINISTERED, TOLERATED WELL. KEPT RESTED AND COMFORTABLE IN BED. CALL LIGHT WITHIN REACH. FAMILY AT BEDSIDE IN ATTENDANCE TO NEEDS AT THIS TIME.
[2025-04-24 22:19] LABS: CREATININE,URINE RANDOM 26.61 mg/dL (30-135); PROTEIN,URINE RANDOM 17.0 mg/dL (0-11.9)
[2025-04-24 22:22] LABS: AMPHET/METH SCREEN,URINE NEGATIVE (NEGATIVE); BARBITURATE SCREEN, URINE NEGATIVE (NEGATIVE); CANNABINOID SCREEN,URINE NEGATIVE (NEGATIVE); COCAINE SCREEN,URINE NEGATIVE (NEGATIVE)
[2025-04-24] MEDS: VANCOMYCIN 1G/250ML KIT 250 ML IV SCH (22:37)
--- NOTE | 2025-04-24 23:00 | NUR ---
BATHE PCP IN AND GAVE PT A BED BATH. PT INSISTED ON SITTING DOWN IN THE RECLINER. PT ASSISTED TO SIT IN RECLINER, CHAIR ALARM PLACED ON. PT'S FAMILY AT BEDSIDE KEEPING CLOSE WATCH.
[2025-04-25] VITALS (9 sets, daily range): BP systolic 134–162; BP diastolic 71–99; PULSE 74–100; RESP 18–20; TEMP 97.5–98.4; O2SAT 91–94
--- NOTE | 2025-04-25 04:00 | NUR ---
MOVED PT VERBALIZES WANTING TO WALK BUT IS VERY WEAK AND UNABLE TO AMBULATE AT THIS TIME. PT CLAIMS OF GENERALIZED PAINS. NOTED PIV TO BE INFILTRATED. PT AGREED TO GO BACK TO BED. ASSISTED PT TO TRANSFER FROM CHAIR TO BED WITH 2 PERSON ASSIST. POSITIONED COMFORTABLY AND CALL LIGHT WITHIN REACH. DISCONTINUED PIV WITH CATHETER INTACT. RE-INSERTED PIV G20 TO LEFT HAND, TOLERATED WELL. MEDICATED WITH DILAUDID IV. WILL RE-ASSESS PT.
[2025-04-25 06:05] LABS: NUCLEATED RED BLOOD CELLS 1.1 % (0.0-0.19); PLATELET COUNT (AUTO) 37 K/uL (130-400); RED BLOOD CELL COUNT(AUTO) 4.48 MIL/uL (4.00-5.50); RED CELL DISTRIBUTION WIDTH 20.3 % (11.0-15.5); WHITE BLOOD COUNT (AUTO) 7.8 K/uL (4.8-10.8)
--- NOTE | 2025-04-25 06:17 | NUR ---
NEW NEW ORDERS FROM DR VANG SEEN. INSULIN DOSES GIVEN ORDERED. PT IS SEDATED AT THIS TIME. SYNTHROID DOSE NOT GIVEN. FOR MORE CARE AND MANAGEMENT.
[2025-04-25 06:22] LABS: CREATININE 1.1 mg/dL (0.5-1.0); GLOMERULAR FILTR. RATE CALC 59.0 mL/min (>90); SODIUM SERUM 132.0 mmol/L (136-145); UREA NITROGEN, BLOOD 50.0 mg/dL (7-18)
[2025-04-25 06:23] LABS: GLUCOSE,RANDOM 438.0 mg/dL (70-105)
--- NOTE | 2025-04-25 07:39 | NUR ---
ENTERED PATIENT ROOM PATIENT COULD BE HEARD IN HALLWAY. PATIENT IS AGITATED AND STATING, "I CAN'T BE IN THIS BED ANYMORE I NEED TO GET UP". PATIENT IS VERY ACTIVE AND SITS UP TO THE EDGE OF THE BED. CALMLY EXPLAINED TO PATIENT THAT SHE IS WEAK AT THIS TIME AND THAT ATTEMPTING TO GET UP WITHOUT ASSISTANCE WOULD BE UNSAFE. AIDED IN REPOSITIONING PATIENT IN BED. PATIENT BEGAN SCREAMING AND SLAMMING HER FEET INTO THE BED. PATIENT SCREAMED, "I NEED TO GET UP. I NEED TO GET UP"! CALLED CHARGE NURSE, NATALIO MERCHANT, AND NOTIFIED HER OF SITUATION. REQUEST FOR 1:1 SITTER WAS MADE. WITH THE ASSISTANCE OF POLICE BOOKING OFFICER, TRANSFERRED PATIENT FROM BED TO CHAIR. CHAIR ALARM WAS PLACED PRIOR TO PATIENT BEING SEATED. PATIENT APPEARS MORE CALM IN THE CHAIR. PATIENT IS NEAR NURSES STATION AND DOOR WAS LEFT OPEN. CHAIR ALARM IN PLACE AND ACTIVATED.
[2025-04-25] MEDS ORDERED: venLAFAXine HCL XR 37.5 MG CAP 37.5 MG CAP.ER.24H PO SCH (09:00)
--- NOTE | 2025-04-25 09:48 | NUR ---
SPOKE WITH PRIMARY MD DURING MORNING ROUNDS. EXPLAINED MORNING SITUATION TO MD AND MADE REQUEST FOR AN AMMONIA LEVEL OR A HEAD CT. PER MD, OK TO ORDER AMMONIA LEVEL.
--- NOTE | 2025-04-25 09:56 | PN ---
endocrinology progress note Date of Service: Apr 25, 2025 subjective: glucose runs greater than 400 mg/dl due to iv steroids. no signs of dka. hba1c 9.2, home regimen: lantus 30 units daily and humalog 10 units tid before meals. patient glucose are elevated due to iv steroid MTP. REVIEW OF SYSTEMS CONSTITUTIONAL: Denies fevers, chills, or night sweats. No unintentional weight loss reported. NEUROLOGICAL: Denies headache, amaurosis fugax, motor weakness, sensory deficit, vertigo/spinning sensation, gait abnormalities, or tremors. ENT: No hearing loss, otalgia, otorrhea, rhinitis, rhinorrhea, hoarseness, or sore throat. CARDIOVASCULAR: Denies any exertional angina, dyspnea on exertion, orthopnea, paroxysmal nocturnal dyspnea, palpitations, life-threatening arrhythmias, claudication. PULMONARY: Denies any shortness of breath, cough, phlegm/sputum, hemoptysis, pleuritic chest pain. SLEEP: Denies morning headaches, daytime somnolence or napping. Denies difficulty falling asleep, staying asleep, waking from sleep. Denies knowledge of snoring. GASTROINTESTINAL: Denies any type of dysphagia to either liquids or solids. Denies nausea, vomiting, pyrosis, early satiety, abdominal pain, diarrhea, constipation, or changes in stool consistency or caliber. Denies coffee-ground emesis, hematemesis, hematochezia, or melanotic stools. GENITOURINARY: Denies frequency, urgency, nocturia, hematuria or incontinence (Storage/Irritative symptoms.) Low urinary stream, straining to void, urinary intermittency or hesitancy, splitting of the voiding stream, terminal dribbling. ENDOCRINOLOGIC: Denies polyuria, polydipsia, polyphagia or heat/cold intolerances. HEMATOLOGIC: Denies thrombophilia/previous clots, or coagulopathy/bleeding disorders. ONCOLOGIC: Denies personal history of malignancy. DERMATOLOGIC: Denies rashes or pruritus. PSYCHIATRIC: Denies any suicidal or homicidal ideation. Denies hallucinations. PAST MEDICAL HISTORY: [undiagnosed obstructive sleep apnea, diabetes type 2, hypertension, hyperlipidemia, hypothyroidism, restless leg syndrome, anxiety disorder,depression, lupus and severe morbid obesity ] PAST SURGICAL HISTORY: [ Cholecystectomy, tubal ligation] PAST SOCIAL HISTORY: [ Patient lives with . Patient denies alcohol tobacco and recreational drug use] FAMILY HISTORY: [ Hypertension, diabetes, cardiovascular disease and Alzheimer's disease ] Coded Allergies: No Known Allergies (Unverified Allergy, Unknown, 08/26/14) ASSESSMENT: hyperglycemia due to uncontrolled dm-2 and excaerbated due to iv steroids hba1c 9.2, home regimen: lantus 30 units daily and humalog 10 units tid before meals. patient glucose are elevated due to iv steroid MTP to greater than 400 mg/dl. patient will need high dose pre-meal insulin and lantus due to steroid induced post-prandial hyperglycemia. no signs of dka. Intractable low back pain POA Acute thrombocytopenia POA Acute urinary tract infection POA Chronic anemia POA Hyponatremia POA Acute kidney injury on renal insufficiency POA Hypocalcemia POA Cirrhotic liver with splenomegaly consistent with portal hypertension per CT POA Renal parenchymal disease per CT POA Hypothyroidism POA Hyperlipidemia POA Hypertension POA Anxiety disorder POA Depression POA Restless leg syndrome POA Suspected obstructive sleep apnea untreated POA Morbid obesity POA PLAN: increase lantus to 70 units daily and incerase further to 50 units bid for persistent fasting hyperglycemia. start regular insulin 25 units qac before meals and increase further to 40 units tid before meals if still hyperglycemia. continue high dose ssi if persistent hyperglycemia, then recommend to transfer to ICU for insulin drip. monitor glucose qx6 hourly Vitals/Labs Vital Signs Date Time Temp Pulse Resp B/P (MAP) Pulse Ox O2 Delivery O2 Flow Rate FiO2 04/25/25 07:59 97.5 90 18 161/88 90 Room Air 04/25/25 00:00 2.0 04/24/25 20:00 21 Laboratory Tests 04/25/25 05:35 Medications Current Medications Sodium Chloride 1,000 ml @ 0 mls/hr ONCE ONCE IV Last administered on 04/22/25at 17:27; Start 04/22/25 at 17:00; Stop 04/22/25 at 17:01; Status DC Ceftriaxone Sodium 1 gm ONCE ONCE IVPB Last administered on 04/22/25at 19:43; Start 04/22/25 at 19:00; Stop 04/22/25 at 19:01; Status DC Acetaminophen 650 mg Q6H PRN PO Last administered on 04/23/25at 10:02; Start 04/22/25 at 20:00; Stop 05/22/25 at 19:59 Acetaminophen 650 mg Q4H PRN PO Last administered on 04/24/25at 20:44; Start 04/22/25 at 20:00; Stop 05/22/25 at 19:59 Ondansetron HCl 4 mg Q6H PRN IV Last administered on 04/22/25at 20:10; Start 04/22/25 at 20:00; Stop 05/22/25 at 19:59 Famotidine 20 mg DAILY PO Last administered on 04/23/25at 09:33; Start 04/23/25 at 09:00; Stop 04/24/25 at 09:48; Status DC Ceftriaxone Sodium 1 gm/ Sodium Chloride 50 ml @ 100 mls/hr BID IV; Start 04/22/25 at 21:00; Stop 04/22/25 at 19:59; Status DC Lactated Ringer's 1,000 ml @ 100 mls/hr Q10H IV Last administered on 04/23/25at 06:00; Start 04/22/25 at 20:00; Stop 04/23/25 at 10:09; Status DC Insulin Human Regular INSULIN SLIDING SCAL... ACHS SQ Last administered on 04/24/25at 11:18; Start 04/22/25 at 21:00; Stop 04/24/25 at 16:16; Status DC Dextrose 50 ml AD PRN IV; Start 04/22/25 at 20:00; Stop 05/22/25 at 19:59 Glucagon 1 mg AD PRN IM; Start 04/22/25 at 20:00; Stop 05/22/25 at 19:59 Magnesium Sulfate 50 ml @ 0 mls/hr PROTOCOL PRN IV; Start 04/22/25 at 20:00; Stop 05/22/25 at 19:59 Potassium Chloride 100 ml @ 100 mls/hr AD PRN IV; Start 04/22/25 at 20:00; Stop 05/22/25 at 19:59 Potassium Chloride 20 meq AD PRN PO; Start 04/22/25 at 20:00; Stop 05/22/25 at 19:59 Potassium Chloride 20 meq AD PRN PO; Start 04/22/25 at 20:00; Stop 05/22/25 at 19:59 Ceftriaxone Sodium 1 gm BID IVPB; Start 04/22/25 at 21:00; Stop 04/22/25 at 20:44; Status DC Morphine Sulfate 4 mg ONCE ONCE IVP Last administered on 04/22/25at 20:11; Start 04/22/25 at 20:30; Stop 04/22/25 at 20:31; Status DC Lidocaine 1 each ONCE ONCE TP Last administered on 04/22/25at 21:14; Start 04/22/25 at 21:00; Stop 04/22/25 at 21:01; Status DC Ceftriaxone Sodium 1 gm BID IVPB Last administered on 04/24/25at 19:57; Start 04/23/25 at 09:00; Stop 05/03/25 at 08:59 Methylprednisolone Sodium Succinate 125 mg Q6H IVP Last administered on 04/25/25at 01:18; Start 04/23/25 at 08:00; Stop 05/23/25 at 07:59 Albuterol Sulfate 1.25 ONCE ONCE IH Last administered on 04/23/25at 09:40; Start 04/23/25 at 09:30; Stop 04/23/25 at 09:31; Status DC Calcium Gluconate 1 gm ONCE ONCE IV Last administered on 04/23/25at 10:55; Start 04/23/25 at 10:30; Stop 04/23/25 at 10:31; Status DC Sodium Chloride 50 ml @ 0 mls/hr ONCE ONCE IV Last administered on 04/23/25at 11:00; Start 04/23/25 at 11:00; Stop 04/23/25 at 11:01; Status DC Sodium Zirconium Cyclosilicate 10 gm ONCE ONCE PO Last administered on 04/23/25at 14:14; Start 04/23/25 at 14:00; Stop 04/23/25 at 16:08; Status DC Hydromorphone HCl 0.5 mg Q6H PRN IVP Last administered on 04/25/25at 04:14; Start 04/23/25 at 14:00; Stop 04/25/25 at 08:25; Status DC Sodium Zirconium Cyclosilicate 10 gm TID PO; Start 04/23/25 at 21:00; Stop 04/23/25 at 14:11; Status DC Pantoprazole Sodium 40 mg DAILY IVP Last administered on 04/24/25at 10:02; Start 04/24/25 at 10:00; Stop 05/24/25 at 09:59 Pregabalin 75 mg BID PO; Start 04/24/25 at 21:00; Stop 04/24/25 at 14:49; Status DC Vancomycin HCl 1 each AD IV; Start 04/24/25 at 10:30; Stop 05/08/25 at 10:29 Vancomycin HCl 500 ml @ 250 mls/hr ONCE ONCE IV Last administered on 04/24/25at 12:46; Start 04/24/25 at 11:00; Stop 04/24/25 at 12:59; Status DC Vancomycin HCl 250 ml @ 125 mls/hr Q12H IV Last administered on 04/24/25at 22:37; Start 04/24/25 at 23:00; Stop 05/04/25 at 22:59 Insulin Glargine 10 units HS SQ; Start 04/24/25 at 21:00; Stop 04/24/25 at 16:57; Status DC Insulin Glargine 10 units ONCE STAT SQ Last administered on 04/24/25at 11:19; Start 04/24/25 at 10:54; Stop 04/24/25 at 11:00; Status DC Atorvastatin Calcium 20 mg HS PO Last administered on 04/24/25at 19:57; Start 04/24/25 at 21:00; Stop 05/24/25 at 20:59 Gabapentin 300 mg BID PO Last administered on 04/24/25at 19:57; Start 04/24/25 at 21:00; Stop 05/24/25 at 20:59 Levothyroxine Sodium 125 mcg DAILY@0630 PO; Start 04/25/25 at 06:30; Stop 05/25/25 at 06:29 Metoprolol Succinate 50 mg AM PO; Start 04/25/25 at 09:00; Stop 05/25/25 at 08:59 Venlafaxine HCl 37.5 mg DAILY PO; Start 04/25/25 at 09:00; Stop 04/24/25 at 14:50; Status DC Pramipexole Dihydrochloride 0.5 mg HS PO Last administered on 04/24/25at 20:43; Start 04/24/25 at 21:00; Stop 05/24/25 at 20:59 Venlafaxine HCl 37.5 mg DAILY PO Last administered on 04/24/25at 16:28; Start 04/24/25 at 16:00; Stop 05/24/25 at 15:59 Insulin Human Regular INSULIN SLIDING SCAL... ACHS SQ Last administered on 04/25/25at 06:14; Start 04/24/25 at 16:30; Stop 05/24/25 at 16:29 Insulin Glargine 15 units HS SQ; Start 04/24/25 at 21:00; Stop 04/24/25 at 17:06; Status DC Insulin Human Regular 5 unit TIDAC SQ; Start 04/24/25 at 17:00; Stop 04/24/25 at 17:06; Status DC Insulin Glargine 30 units ONCE SQ Last administered on 04/24/25at 18:16; Start 04/24/25 at 17:00; Stop 04/25/25 at 06:19; Status DC Insulin Human Regular 10 unit TIDAC SQ Last administered on 04/25/25at 06:15; Start 04/24/25 at 17:00; Stop 04/25/25 at 06:17; Status DC Tramadol HCl 50 mg Q6H PRN PO Last administered on 04/25/25at 02:32; Start 04/24/25 at 22:30; Stop 04/29/25 at 22:29 Insulin Human Regular 25 unit TIDAC SQ Last administered on 04/25/25at 06:27; Start 04/25/25 at 07:30; Stop 05/25/25 at 07:29 Insulin Glargine 70 units ONCE ONCE SQ Last administered on 04/25/25at 06:27; Start 04/25/25 at 06:30; Stop 04/25/25 at 06:31; Status DC Hydromorphone HCl 0.5 mg BIDPRN PRN IVP; Start 04/25/25 at 19:00; Stop 04/30/25 at 18:59 Heparin Sodium (Porcine) 5,000 unit Q8H SQ; Start 04/25/25 at 09:00; Stop 04/25/25 at 08:40; Status DC PARAG VANG MD Apr 25, 2025 09:56
--- NOTE | 2025-04-25 10:30 | NUR ---
REPORTED AMMONIA LEVEL TO MD. TO ORDER LACTULOSE FOR PATIENT.
[2025-04-25] MEDS ORDERED: 0.9% NACL 500ML IV.SOLN 500 ML IV SCH (11:00)
[2025-04-25] MEDS: LACTULOSE 20 GM/30 ML UDCUP PO SCH (11:43)
--- NOTE | 2025-04-25 14:01 | PN ---
[facility] PROGRESS NOTE Date of Service: Apr 25, 2025 Time of Service: 13:49 SUBJECTIVE: This is a 54-year-old female with past medical history of undiagnosed obstructive sleep apnea, diabetes type 2, hypertension, hyperlipidemia, hypothyroidism, restless leg syndrome, anxiety disorder,depression, lupus and severe morbid obesity who presents to the ED for complaints of severe low back p ain which started 2 weeks ago and getting worse for the past 2 days and patient reports she is taking prednisone 30mg po daily for her Lupus she said.Patient also reports she was recently seen in this ED for similar complaints and was diagnosed with acute lumbosacral myofascial strain. 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 Urinalysis consistent with urinary tract infection. CT abdomen and pelvis result revealed no acute intra-abdominal or pelvic pathology cirrhotic liver morphology with splenomegaly, consistent with portal hypertension. Bilateral renal cortical thickening may reflect renal parenchymal disease. While in the ER patient received Rocephin 1 g IV, 1 L NS bolus. We will admit patient for further medical management. 04/23/25 Patient was seen and examined at bedside. She was complaining of chest pain early in the morning but her EKG and troponin were normal. Patient says she got liver cirrhosis from taking Tylenol with codeine in the past for a long time. Remarkable labs are Na 129, K 6.4. Cl 98, BUN 44. Cr 1.2 with no anion gap. New EKG shows sinus rhythm with no tall T-waves or shortened QT interval. We will give her a dose of calcium gluconate and lokelma and recheck her labs. we will hold her iv fluids for now. Her urine anion gap is 36.0 mEq/l. Repeat potassium was 4.2 and 4.6. We will order CT lumbar spine and request nephro and cardio consults due to hyponatremia, RTA and cirrhosis with portal hypertension respectively. We will order lupus, complement , anemia panel due to her abnormal labs and h/o SLE. Hematology recommended solu medrol 125 q6. she might need hydrochloroquine upon discharge for SLE 04/24/25 Patient was seen and examined at bedside. She is complaining of widespread generalized body pain with tender points and generalized weakness, her CPK is going up, we will repeat it and start her on pregabalin. Her labs are improving. She had an EGD done last year that showed grade III varices but lost to follow up with TDS. No GI intervention as her Hb is stable. Will start her on vancomycin. Her home meds have been reconciled. She takes venlaflaxine and pramipexole for depression and restless leg syndrome respectively. Her elevated urine anion gap could be due to BALTAZAR or NSAID induced kidney injury but her creatinine is improving. Pending abdominal ultrasound and CT lumbar spine res ults. 04/25/25 Patient was seen and examined. She was observed sitting in a chair but was unable to answer questions appropriately and appeared confused. Ammonia level was elevated at 59; lactulose has been initiated at 30 mL TID. She is currently receiving vancomycin for MRSA identified in the urine. Right upper quadrant ultrasound demonstrated chronic hepatic changes with a hypoechoic lesion in the right lobe of the liver, possibly representing a complex cyst. CT of the lumbar spine revealed moderate lumbar spondylosis and diffuse osteopenia. Her platelet count is 37 and showing slow improvement. Dr. Urias, covering for Dr. Lorenzo, recommended holding solu-medrol for now. If platelet count declines tomorrow, steroids may need to be restarted. Ammonia and additional labs will be rechecked in the morning. REVIEW OF SYSTEMS CONSTITUTIONAL: Denies fevers, chills, or night sweats. No unintentional weight loss reported. NEUROLOGICAL: Denies headache, amaurosis fugax, motor weakness, sensory deficit, vertigo/spinning sensation, gait abnormalities, or tremors. ENT: No hearing loss, otalgia, otorrhea, rhinitis, rhinorrhea, hoarseness, or sore throat. CARDIOVASCULAR: Denies any exertional angina, dyspnea on exertion, orthopnea, paroxysmal nocturnal dyspnea, palpitations, life-threatening arrhythmias, claudication. PULMONARY: Denies any shortness of breath, cough, phlegm/sputum, hemoptysis, pleuritic chest pain. SLEEP: Denies morning headaches, daytime somnolence or napping. Denies difficulty falling asleep, staying asleep, waking from sleep. Denies knowledge of snoring. GASTROINTESTINAL: Denies any type of dysphagia to either liquids or solids. Denies nausea, vomiting, pyrosis, early satiety, abdominal pain, diarrhea, constipation, or changes in stool consistency or caliber. Denies coffee-ground emesis, hematemesis, hematochezia, or melanotic stools. GENITOURINARY: Denies frequency, urgency, nocturia, hematuria or incontinence (Storage/Irritative symptoms.) Low urinary stream, straining to void, urinary intermittency or hesitancy, splitting of the voiding stream, terminal dribbling. ENDOCRINOLOGIC: Denies polyuria, polydipsia, polyphagia or heat/cold intolerances. HEMATOLOGIC: Denies thrombophilia/previous clots, or coagulopathy/bleeding disorders. ONCOLOGIC: Denies personal history of malignancy. DERMATOLOGIC: Denies rashes or pruritus. PSYCHIATRIC: Denies any suicidal or homicidal ideation. Denies hallucinations. PHYSICAL EXAM GENERAL APPEARANCE: The patient is awake, alert, and oriented, in no acute cardiopulmonary distress. NEUROLOGICAL: Cranial nerves II-XII grossly intact. Motor is 5/5 in bilateral upper and lower extremities proximal to distal. No sensory deficits. HEENT: Face is symmetric. Pupils are equal and reactive. Extraocular movements are intact. NECK: Supple. No JVD. No thyromegaly. No submental, submandibular, pre- /postauricular, occipital or supraclavicular lymphadenopathy. CHEST: Normal chest expansion. No Telemetry. LUNGS: Absence of any rales, rhonchi or any wheezing. CARDIOVASCULAR: Regular. S1 and S2 normal. No appreciable rubs, murmurs or gallops. ABDOMEN: Soft, nontender, and nondistended. There is no rebound, voluntary guarding, or rigidity. : Deferred. No [place]co. EXTREMITIES: Non-edematous and not cyanotic. No clubbing. Good capillary refill. SKIN: No skin breakdown. Vital Signs (last 8hr) Date Time Temp Pulse Resp B/P (MAP) Pulse Ox O2 Delivery O2 Flow Rate FiO2 04/25/25 11:30 97.5 96 18 162/92 94 Nasal Cannula 04/25/25 07:59 97.5 90 18 161/88 90 Room Air LABS: Laboratory: Test 04/25/25 10:43 04/25/25 10:19 04/25/25 06:08 04/25/25 05:35 Range/Units Whole Blood Glucose 395 H 70-110 MG/DL Ammonia 59 H 11-32 umol/L C-Reactive Protein, Quantitative 132.00 H 0.5-3.0 mg/L Bedside Glucose Comment Notified Nurse White Blood Count 7.8 # 4.8-10.8 K/uL Red Blood Count 4.48 4.00-5.50 MIL/uL Hemoglobin 11.1 L 12.0-16.0 g/dL Hematocrit 36.4 36-48 % Mean Corpuscular Volume 81.3 79-99 fL Mean Corpuscular Hemoglobin 24.8 L 27.0-33.0 pg Mean Corpuscular Hemoglobin Concent 30.5 L 32.0-36.0 g/dL Red Cell Distribution Width 20.3 H 11.0-15.5 % Platelet Count 37 L 130-400 K/uL Mean Platelet Volume 7.5-10.5 fL Nucleated Red Blood Cells 1.1 H 0.0-0.19 % Sodium Level 132 L 136-145 mmol/L Potassium Level 5.1 3.5-5.1 mmol/L Chloride Level 100 L 101-111 mmol/L Carbon Dioxide Level 27 21-32 mmol/L Blood Urea Nitrogen 50 H 7-18 mg/dL Creatinine 1.1 H 0.5-1.0 mg/dL Glomerular Filtration Rate Calc 59 >90 mL/min Random Glucose 438 *H 70-105 mg/dL Hemoglobin A1c 9.2 H 4.0-6.0 % Estimated Average Glucose (eAG) 217 H 70-126 mg/dL Total Calcium 9.2 8.5-10.1 mg/dL Test 04/24/25 22:00 04/24/25 07:34 Range/Units Urine Random Creatinine 26.61 L 30-135 mg/dL Urine Random Total Protein 17.0 H 0-11.9 mg/dL Urine Opiates Screen NEGATIVE NEGATIVE Urine Barbiturates Screen NEGATIVE NEGATIVE Urine Phencyclidine Screen NEGATIVE NEGATIVE Urine Amphetamines Screen NEGATIVE NEGATIVE Urine Benzodiazepines Screen NEGATIVE NEGATIVE Urine Cocaine Screen NEGATIVE NEGATIVE Urine Marijuana (THC) Screen NEGATIVE NEGATIVE Immature Granulocyte % (Auto) 7.1 H 0-1 % Neutrophils (%) (Auto) 83.1 H 40.0-77.0 % Lymphocytes (%) (Auto) 4.6 L 21.0-51.0 % Monocytes (%) (Auto) 4.4 3.0-13.0 % Eosinophils (%) (Auto) 0.0 0.0-8.0 % Basophils (%) (Auto) 0.8 0.0-5.0 % Neutrophils # (Auto) 4.3 1.8-7.7 K/uL Lymphocytes # (Auto) 0.2 L 1.0-4.8 K/uL Monocytes # (Auto) 0.2 0.1-1.0 K/uL Eosinophils # (Auto) 0.00 0.00-0.70 K/uL Basophils # (Auto) 0.04 0.00-0.20 K/uL Absolute Immature Granulocyte (auto 0.37 0-1 K/uL Lupus Anticoag PTT Mix/Correction Hexagonal Phospholipid Neutralizat Total Bilirubin 1.6 H 0.2-1.0 mg/dL Aspartate Amino Transf (AST/SGOT) 64 H 10-37 U/L Alanine Aminotransferase (ALT/SGPT) 59 12-78 U/L Alkaline Phosphatase 99 50-136 U/L Total Protein 7.4 6.0-8.3 g/dL Albumin 2.3 L 3.5-5.0 g/dL Triglycerides Level 172 30-200 mg/dL Cholesterol Level 109 # <200 mg/dL LDL Cholesterol 39 0-99 mg/dL HDL Cholesterol 14 L 35-85 mg/dL Current Medications Medications (Trade) Dose Ordered Sig/Roberth Route PRN Reason Start Time Stop Time Status Last Admin Dose Admin Acetaminophen (TYLenol 325MG TAB) 650 mg Q4H PRN PO MILD PAIN (1-3) 04/22/25 20:00 05/22/25 19:59 04/24/25 20:44 650 MG Acetaminophen (TYLenol 325MG TAB) 650 mg Q6H PRN PO TEMPERATURE GREATER THAN 101.5 04/22/25 20:00 05/22/25 19:59 04/23/25 10:02 650 MG Atorvastatin Calcium (LIPItor 20MG) 20 mg HS PO 04/24/25 21:00 05/24/25 20:59 7/3/25 19:57 20 MG Ceftriaxone Sodium 1 gm/ Sodium Chloride 50 ml @ 100 mls/hr BID IV 04/22/25 21:00 04/22/25 19:59 DC Ceftriaxone Sodium (ROCEphine 1G INJ) 1 gm BID IVPB 04/22/25 21:00 04/22/25 20:44 DC Ceftriaxone Sodium (ROCEphine 1G INJ) 1 gm BID IVPB 04/23/25 09:00 04/25/25 12:36 DC 04/25/25 09:44 1 GM Dextrose (D50w) 50 ml AD PRN IV HYPOGLYCEMIA PROTOCOL 04/22/25 20:00 05/22/25 19:59 Famotidine (Pepcid 20mg Tab) 20 mg DAILY PO 04/23/25 09:00 04/24/25 09:48 DC 04/23/25 09:33 20 MG Gabapentin (NEURontin 300 MG CAP) 300 mg BID PO 04/24/25 21:00 05/24/25 20:59 04/25/25 09:46 300 MG Glucagon (Glucagon 1mg Kit) 1 mg AD PRN IM HYPOGLYCEMIA PROTOCOL 04/22/25 20:00 05/22/25 19:59 Heparin Sodium (Porcine) (HEParin 5,000 UNIT VIAL) 5,000 unit Q8H SQ 04/25/25 09:00 04/25/25 08:40 DC Hydromorphone HCl (DiLAUDid 0.5MG INJ) 0.5 mg BIDPRN PRN IVP SEVERE PAIN (7-10) 04/25/25 19:00 04/30/25 18:59 Hydromorphone HCl (DiLAUDid 0.5MG INJ) 0.5 mg Q6H PRN IVP SEVERE PAIN (7-10) 04/23/25 14:00 04/25/25 08:25 DC 04/25/25 04:14 0.5 MG Insulin Glargine (LANtus 100 UNITS/ML 10 ML VIAL) 10 units HS SQ 04/24/25 21:00 04/24/25 16:57 DC Insulin Glargine (LANtus 100 UNITS/ML 10 ML VIAL) 10 units ONCE STAT SQ 04/24/25 10:54 04/24/25 11:00 DC 04/24/25 11:19 10 UNITS Insulin Glargine (LANtus 100 UNITS/ML 10 ML VIAL) 15 units HS SQ 04/24/25 21:00 04/24/25 17:06 DC Insulin Glargine (LANtus 100 UNITS/ML 10 ML VIAL) 30 units ONCE SQ 04/24/25 17:00 04/25/25 06:19 DC 04/24/25 18:16 30 UNITS Insulin Human Regular (humuLIN R 100 UNIT/ML 3ML) 5 unit TIDAC SQ 04/24/25 17:00 04/24/25 17:06 DC Insulin Human Regular (humuLIN R 100 UNIT/ML 3ML) 10 unit TIDAC SQ 04/24/25 17:00 04/25/25 06:17 DC 04/25/25 06:15 10 UNIT Insulin Human Regular (humuLIN R 100 UNIT/ML 3ML) 25 unit TIDAC SQ 04/25/25 07:30 05/25/25 07:29 04/25/25 11:58 25 UNIT Insulin Human Regular (humuLIN R 100 UNIT/ML 3ML) INSULIN SLIDING SCAL... ACHS SQ 04/22/25 21:00 04/24/25 16:16 DC 04/24/25 11:18 8 UNIT Insulin Human Regular (humuLIN R 100 UNIT/ML 3ML) INSULIN SLIDING SCAL... ACHS SQ 04/24/25 16:30 05/24/25 16:29 04/25/25 11:57 16 UNIT Lactated Ringer's 1,000 ml @ 100 mls/hr Q10H IV 04/22/25 20:00 04/23/25 10:09 DC 04/23/25 06:00 100 MLS/HR Lactulose (Constulose 20gm/ 30ml Udcup) 30 gm TID PO 04/25/25 11:00 05/25/25 10:59 04/25/25 11:43 30 GM Levothyroxine Sodium (SYNTHroid 125MCG TAB) 125 mcg DAILY@0630 PO 04/25/25 06:30 05/25/25 06:29 Magnesium Sulfate 50 ml @ 0 mls/hr PROTOCOL PRN IV OTHER [SEE ORDER COMMENTS] 04/22/25 20:00 05/22/25 19:59 Methylprednisolone Sodium Succinate (Solu-medROL 125MG) 125 mg Q6H IVP 04/23/25 08:00 05/23/25 07:59 04/25/25 09:45 125 MG Metoprolol Succinate (TopROL XL) 50 mg AM PO 04/25/25 09:00 05/25/25 08:59 04/25/25 09:45 50 MG Ondansetron HCl (zoFRAN 4MG INJ) 4 mg Q6H PRN IV NAUSEA/VOMITING 04/22/25 20:00 05/22/25 19:59 04/22/25 20:10 4 MG Pantoprazole Sodium (PROTonix 40MG INJ) 40 mg DAILY IVP 04/24/25 10:00 05/24/25 09:59 04/25/25 09:45 40 MG Potassium Chloride 100 ml @ 100 mls/hr AD PRN IV POTASSIUM PROTOCOL 04/22/25 20:00 05/22/25 19:59 Potassium Chloride (K-Dur/Klor-Con 20meq) 20 meq AD PRN PO POTASSIUM PROTOCOL 04/22/25 20:00 05/22/25 19:59 Potassium Chloride (KCl 10% Elixir 20meq/15ml) 20 meq AD PRN PO POTASSIUM PROTOCOL 04/22/25 20:00 05/22/25 19:59 Pramipexole Dihydrochloride (miraPEX 0.25MG TAB) 0.5 mg HS PO 04/24/25 21:00 05/24/25 20:59 04/24/25 20:43 0.5 MG Pregabalin (VIRanv24EX) 75 mg BID PO 04/24/25 21:00 04/24/25 14:49 DC Sodium Chloride 500 ml @ 0 mls/hr Q0M IV 04/25/25 11:00 05/25/25 10:59 Sodium Zirconium Cyclosilicate (Lokelma 10gm Powder) 10 gm TID PO 04/23/25 21:00 04/23/25 14:11 DC Tramadol HCl (UltRAM) 50 mg Q6H PRN PO MODERATE PAIN (4-6) 04/24/25 22:30 04/29/25 22:29 04/25/25 02:32 50 MG Trimethoprim/ Sulfamethoxazole (BactRIM DS) 1 tab BID PO 04/25/25 21:00 05/05/25 20:59 Vancomycin HCl 250 ml @ 125 mls/hr Q12H IV 04/24/25 23:00 04/25/25 12:36 DC 04/25/25 11:43 125 MLS/HR Vancomycin HCl (Vancomycin Protocol) 1 each AD IV 04/24/25 10:30 04/25/25 12:36 DC Venlafaxine HCl (EffEXOR XR 37.5mg CAP) 37.5 mg DAILY PO 04/24/25 16:00 05/24/25 15:59 04/25/25 09:45 37.5 MG Venlafaxine HCl (EffEXOR XR 37.5mg CAP) 37.5 mg DAILY PO 04/25/25 09:00 04/24/25 14:50 DC DIAGNOSTICS / RADIOLOGY: PATIENT: LUCÍA CATALAN MR#: [id number] : 1970 SEX: F AGE: 54 LOCATION: [facility] ORDER 1025 STATUS: ADM IN REPORT#: [id number] SERVICE 1021 REASON: SEVERE LOWER BACK ACHE ORDERING PHYSICIAN: KALI ALBERT MD PROCEDURE: L SPIN WO - CT LUMBAR SPINE W/O CONTRAST EXAM: CT Lumbar Spine Without IV Contrast CLINICAL HISTORY: Pain. TECHNIQUE: Spiral axial CT images through the lumbar spine were acquired, reconstructed in axial and sagittal projections, and imaged using soft tissue and bone algorithms. Reformatted/MPR images were performed. CT scan is done according to ALARA (As Low as Reasonably Achievable). CONTRAST: None. COMPARISON: X-ray lumbar spine dated 04/20/25. FINDINGS: No acute fracture. Normal lordotic curvature. Mild levoscoliosis. Normal vertebral body heights. Diffuse osteopenia. Moderate lumbar spondylosis with multilevel marginal osteophytes, facet arthropathy, and degenerative disc space reduction, most pronounced at L4-L5. The surrounding soft tissues are unremarkable. Individual spinal levels are described as follows: T12-L1: No disc bulge or herniation. No neural foraminal, lateral recess or spinal canal stenosis. L1-L2: No disc bulge or herniation. No neural foraminal, lateral recess or spinal canal stenosis. L2-L3: 6 mm diffuse disc bulge. Severe right and moderate left lateral recess and neural foraminal stenosis. Moderate spinal canal stenosis. L3-L4: 4 mm diffuse disc bulge. Moderate bilateral lateral recess and neural foraminal stenosis. Mild spinal canal stenosis. L4-L5: 6 mm diffuse disc bulge. Bilateral ligamentum flavum and facet hypertrophy. Severe bilateral lateral recess and neural foraminal stenosis. Moderate spinal canal stenosis. L5-S1: 3 mm diffuse disc bulge. Bilateral facet hypertrophy. Severe bilateral lateral recess and neural foraminal stenosis. Mild spinal canal stenosis. IMPRESSION: No fracture or dislocation in the lumbar spine. Moderate lumbar spondylosis with multilevel marginal osteophytes, facet arthropathy, and degenerative disc space reduction, most pronounced at L4-L5. Diffuse osteopenia. Mild levoscoliosis. Diffuse disc bulges from L2-L3 through L5-S1. Severe right and moderate left lateral recess and neural foraminal stenosis at L2-L3 with moderate spinal canal stenosis. Moderate bilateral lateral recess and neural foraminal stenosis at L3-L4 with mild spinal canal stenosis. Severe bilateral lateral recess and neural foraminal stenosis at L4-L5 with moderate spinal canal stenosis. Severe bilateral lateral recess and neural foraminal stenosis at L5-S1 with mild spinal canal stenosis. /[place] DICTATED BY: MARISELA MCDONOUGH MD DATE: 04/24/251400 ELECTRONICALLY SIGNED BY: MARISELA MCDONOUGH MD DATE: 04/24/251400 PATIENT: LUCÍA CATALAN MR#: [id number] : 1970 SEX: F AGE: 54 LOCATION: [facility] ORDER 1025 STATUS: ADM IN [facility] REPORT#: [id number] SERVICE 1021 REASON: CIRRHOSIS ORDERING PHYSICIAN: KALI ALBERT MD PROCEDURE: ABDRUQLTD - US ABDOMINAL RUQ\LTD EXAMINATION: ULTRASOUND OF THE ABDOMEN (LIMITED) WITH COLOR DOPPLER. CLINICAL HISTORY: Cirrhosis. COMPARISON: CT abdomen and pelvis without contrast dated 04/22/2025. TECHNIQUE: Real-time grayscale ultrasound images of the abdomen. In addition, color Doppler is medically necessary to perform in order to evaluate vascularity and blood flow. FINDINGS: Liver: Normal in caliber, the right hepatic lobe measures 14.1 cm in the craniocaudal dimension. There is coarse echotexture of the hepatic parenchyma. There is no intrahepatic biliary ductal dilatation. There is normal spectral Doppler of the main portal vein. There is a hypoechoic lesion that measures 1.3 x 1.1 x 1.7 cm in the right lobe. Gallbladder: Post cholecystectomy status. Common bile duct is normal in caliber, measuring 0.5 cm. Pancreas: Obscured by overlying bowel gas The right kidney is normal in caliber, the right kidney measures 13.4 x 6.6 x 6.4 cm in craniocaudal, AP, and transverse dimensions respectively. There is normal renal cortical thickness, and cortical echogenicity. There is no renal calculus. There is moderate right hydronephrosis. IMPRESSION: Chronic hepatic disease. Hypoechoic lesion in the right lobe of the liver may reflect complex cyst. Post cholecystectomy status. Moderate right hydronephrosis. Recommend CT abdomen and pelvis with contrast. 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 POA Acute urinary tract infection due to MRSA POA Hypervolemic hyponatremia POA Chronic anemia POA Hyponatremia POA Acute kidney injury on renal insufficiency POA Hyperglycemia due to uncontrolled diabetes POA Hypocalcemia POA Cirrhotic liver with splenomegaly consistent with portal hypertension per CT POA Esophageal varices Renal parenchymal disease per CT POA Hypothyroidism POA Hypocalcemia POA Hyperlipidemia POA Hypertension POA Anxiety disorder POA Depression POA Restless leg syndrome POA Suspected obstructive sleep apnea untreated POA Morbid obesity POA PLAN: Intractable lower back pain Continue multimodal pain management: acetaminophen, topical agents, consider gabapentin if neuropathic. Currently on dilaudid CT lumbar spine ESR elevated Thrombocytopenia due to ITP Monitor CBC daily; trend platelets. Rule out DIC, splenic sequestration (cirrhosis-related), and medication-induced causes. Avoid NSAIDs, hematology consult Currently on solu medrol 125mg q6 . Acute UTI Currently on rocephin Monitor for signs of urosepsis Encourage hydration and bladder care Hyponatremia Treat underlying hyperglycemia; avoid rapid sodium correction. Monitor serum Na closely; consider fluid restriction if dilutional. Cirrhosis with portal hypertension Monitor for decompensation: encephalopathy, ascites, variceal bleeding. Consider beta sergio for variceal prophylaxis. Monitor LFTs, INR, and ammonia Her MELD- Na score is 24 points, 14-15% estimated 90 day mortality Hyperglycemia (Uncontrolled Diabetes) Start basal/bolus insulin regimen; monitor blood glucose QID. Educate on diet and insulin compliance; monitor for DKA if concern. Correct electrolytes accordingly. Chronic anemia Monitor trends; assess for iron/B12/folate deficiency. Avoid transfusion unless symptomatic or Hgb <7. GI consult We will admit patient in medical telemetry We will start on consistent carb diet We will start on LR at 100 x 2 bags We will start patient on Rocephin 1 g IV b.i.d. for empiric coverage We will start on Famotidine 20 mg p.o. daily for GI prophylaxis We will replace electrolytes as needed per protocol We will start on insulin sliding scale AC & HS with hypoglycemia protocol We will add prn medication for fever,pain,cough ,nausea and vomiting We will reconcile home meds once medlist available We will seek Hematology consultation We will request labs in am Further orders to follow depending on above results Case discussed with attending physician and came up with above treatment and plan of care. ATTESTATION BY PHYSICIAN I have seen and examined the patient. I reviewed the documentation, medical decision making, and treatment plan as noted by the resident provider above. I agree with the findings and plan of care. Cory Pimentel MD, NIHITHA MD Apr 25, 2025 14:01
--- NOTE | 2025-04-25 14:19 | PN ---
HISTORY OF PRESENT ILLNESS: This is a 54-year-old female known to Dr. Lorenzo with a history of ITP. The patient is quite morbidly obese. She is found to have complicating issues with cirrhosis and portal hypertension with splenomegaly. She is quite obese. Currently admitted to the hospital with signs of bruising for a couple of weeks. No henri bleeding. Platelet count at 24,000 upon admission. The patient was started on IV Solu-Medrol 125 mg q.6. She has 7 doses of Solu-Medrol. Repeat CBC shows WBC of 7.8, hemoglobin 11.1, platelet count slightly improved to 37,000 from 24,000. Nursing Service at the bedside. No documented bleeding. REVIEW OF SYSTEMS: GENERAL: Tiredness and fatigue is present. NECK: Denies any neck pain or neck stiffness. RESPIRATORY: Denies any cough, sputum, or hemoptysis. CARDIOVASCULAR: Denies any chest pain, palpitations, or orthopnea. GASTROINTESTINAL: Denies nausea or vomiting. EXTREMITIES: Denies any weakness of the arms or legs. PHYSICAL EXAMINATION: GENERAL: This is a morbidly obese lady, not in any distress. VITAL SIGNS: Temperature 97.5, pulse 96, respirations 18, blood pressure 162/92. HEAD AND NECK: Sclerae are anicteric. No paleness noted. NECK: Supple. No lymphadenopathy. LUNGS: Good entry bilaterally. CARDIOVASCULAR: S1, S2 audible. No added sounds. ABDOMEN: Protruded. Signs of obesity noted. EXTREMITIES: Both lower extremity swelling noted. LABORATORY REVIEW: Blood test of 04/25/2025, WBC 7.8, hemoglobin 11.1, and platelet count 37,000. IMAGING STUDIES: CT scan of the abdomen and pelvis with contrast 04/22/2025 reported no acute intraabdominal or pelvic pathology. Cirrhotic liver morphology with splenomegaly consistent with portal hypertension. Bilateral renal cortical thickening may reflect renal parenchymal disease. ASSESSMENT AND PLAN: * History of ITP, has not followed with Dr. Lorenzo in a long time, admitted with a history of bruising, and platelets of 24,000. The patient has been started on IV Solu-Medrol with the impression of ITP. The patient has so far received 7 doses of Solu-Medrol 125 mg IV q.6. There is a slight improvement of platelet count from 24,000 to 37,000. At this time, I would not recommend any further steroids. She is quite morbidly obese. She has signs of fluid accumulation as well. I will suggest to hold steroid as well at this time and monitor clinically with CBC again. If platelet count drops down, then we will start her on IVIG provided there is no contraindication or no signs of infection. * Other causes of thrombocytopenia. There is a high likelihood of having thrombocytopenia complicating with cirrhosis and portal hypertension and splenomegaly as to the cause as well. If this being the cause for her profound thrombocytopenia, I do not anticipate any further improvement at this time with steroid or IVIG as well. Discussed with the patient and the patient's family and Nursing Service. * Plan: Hold steroid and monitor CBC daily. TID: [id number] RECEIPT: [id number]
--- NOTE | 2025-04-25 14:38 | PN ---
NEPHROLOGY PROGRESS NOTE Date/Time Patient Seen: Apr 25, 2025 SUBJECTIVE: This is 54-year-old female with history of undiagnosed obstructive sleep apnea, diabetes type 2, hypertension, hyperlipidemia, hypothyroidism, restless leg syndrome, anxiety disorder,depression, lupus and severe morbid obesity The patient presented to the hospital with complaints of lower back pain. The patient had been taking prednisone as an outpatient. In the Emergency Room, the patient was found to have significant renal dysfunction with an elevated BUN and creatinine as well as significant hyperkalemia. The patient was treated medically for the hyperkalemia. Renal function did improve with hydration and she is being seen in consultation for all of the above. Creatinine did improve with the IV hydration. The patient's hyperkalemia has resolved and we will continue to follow the chemistries closely. The patient remains on Rocephin for urinary tract infection. Renal function is improving Electrolytes are stable She was noted with altered mental status, and ammonia level was noted at 59, lactulose has been started. REVIEW OF SYSTEMS: Unable to obtain due to patient's status Vital Signs (last 8hr) Date Time Temp Pulse Resp B/P (MAP) Pulse Ox O2 Delivery O2 Flow Rate FiO2 04/25/25 11:30 97.5 96 18 162/92 94 Nasal Cannula 04/25/25 07:59 97.5 90 18 161/88 90 Room Air PHYSICAL EXAM: GENERAL: Alert and oriented x 3. No acute distress. Well-nourished. EYES: EOMI. Anicteric. HENT: Moist mucous membranes. No scleral icterus. No cervical lymphadenopathy. LUNGS: Clear to auscultation bilaterally. No accessory muscle use. CARDIOVASCULAR: Regular rate and rhythm. No murmur. No JVD. ABDOMEN: Soft, non-tender and non-distended. No palpable masses. EXTREMITIES: No edema. Non-tender. SKIN: No rashes or lesions. Warm. NEUROLOGIC: No focal neurological deficits. CN II-XII grossly intact, but not individually tested. PSYCHIATRIC: Cooperative. Appropriate mood and affect. Current Medications Medications (Trade) Dose Ordered Sig/Roberth Route PRN Reason Start Time Stop Time Status Last Admin Dose Admin Acetaminophen (TYLenol 325MG TAB) 650 mg Q4H PRN PO MILD PAIN (1-3) 04/22/25 20:00 05/22/25 19:59 04/24/25 20:44 650 MG Acetaminophen (TYLenol 325MG TAB) 650 mg Q6H PRN PO TEMPERATURE GREATER THAN 101.5 04/22/25 20:00 05/22/25 19:59 04/23/25 10:02 650 MG Atorvastatin Calcium (LIPItor 20MG) 20 mg HS PO 04/24/25 21:00 05/24/25 20:59 04/24/25 19:57 20 MG Ceftriaxone Sodium 1 gm/ Sodium Chloride 50 ml @ 100 mls/hr BID IV 04/22/25 21:00 04/22/25 19:59 DC Ceftriaxone Sodium (ROCEphine 1G INJ) 1 gm BID IVPB 04/22/25 21:00 04/22/25 20:44 DC Ceftriaxone Sodium (ROCEphine 1G INJ) 1 gm BID IVPB 04/23/25 09:00 04/25/25 12:36 DC 04/25/25 09:44 1 GM Dextrose (D50w) 50 ml AD PRN IV HYPOGLYCEMIA PROTOCOL 04/22/25 20:00 05/22/25 19:59 Famotidine (Pepcid 20mg Tab) 20 mg DAILY PO 04/23/25 09:00 04/24/25 09:48 DC 04/23/25 09:33 20 MG Gabapentin (NEURontin 300 MG CAP) 300 mg BID PO 04/24/25 21:00 05/24/25 20:59 04/25/25 09:46 300 MG Glucagon (Glucagon 1mg Kit) 1 mg AD PRN IM HYPOGLYCEMIA PROTOCOL 04/22/25 20:00 05/22/25 19:59 Heparin Sodium (Porcine) (HEParin 5,000 UNIT VIAL) 5,000 unit Q8H SQ 04/25/25 09:00 04/25/25 08:40 DC Hydromorphone HCl (DiLAUDid 0.5MG INJ) 0.5 mg BIDPRN PRN IVP SEVERE PAIN (7-10) 04/25/25 19:00 04/30/25 18:59 Hydromorphone HCl (DiLAUDid 0.5MG INJ) 0.5 mg Q6H PRN IVP SEVERE PAIN (7-10) 04/23/25 14:00 04/25/25 08:25 DC 04/25/25 04:14 0.5 MG Insulin Glargine (LANtus 100 UNITS/ML 10 ML VIAL) 10 units HS SQ 04/24/25 21:00 04/24/25 16:57 DC Insulin Glargine (LANtus 100 UNITS/ML 10 ML VIAL) 10 units ONCE STAT SQ 04/24/25 10:54 04/24/25 11:00 DC 04/24/25 11:19 10 UNITS Insulin Glargine (LANtus 100 UNITS/ML 10 ML VIAL) 15 units HS SQ 04/24/25 21:00 04/24/25 17:06 DC Insulin Glargine (LANtus 100 UNITS/ML 10 ML VIAL) 30 units ONCE SQ 04/24/25 17:00 04/25/25 06:19 DC 04/24/25 18:16 30 UNITS Insulin Human Regular (humuLIN R 100 UNIT/ML 3ML) 5 unit TIDAC SQ 04/24/25 17:00 04/24/25 17:06 DC Insulin Human Regular (humuLIN R 100 UNIT/ML 3ML) 10 unit TIDAC SQ 04/24/25 17:00 04/25/25 06:17 DC 04/25/25 06:15 10 UNIT Insulin Human Regular (humuLIN R 100 UNIT/ML 3ML) 25 unit TIDAC SQ 04/25/25 07:30 05/25/25 07:29 04/25/25 11:58 25 UNIT Insulin Human Regular (humuLIN R 100 UNIT/ML 3ML) INSULIN SLIDING SCAL... ACHS SQ 04/22/25 21:00 04/24/25 16:16 DC 04/24/25 11:18 8 UNIT Insulin Human Regular (humuLIN R 100 UNIT/ML 3ML) INSULIN SLIDING SCAL... ACHS SQ 04/24/25 16:30 04/25/25 14:09 DC 04/25/25 11:57 16 UNIT Insulin Human Regular (humuLIN R 100 UNIT/ML 3ML) INSULIN SLIDING SCAL... ACHS SQ 04/25/25 16:30 05/25/25 16:29 Lactated Ringer's 1,000 ml @ 100 mls/hr Q10H IV 04/22/25 20:00 04/23/25 10:09 DC 04/23/25 06:00 100 MLS/HR Lactulose (Constulose 20gm/ 30ml Udcup) 30 gm TID PO 04/25/25 11:00 05/25/25 10:59 04/25/25 11:43 30 GM Levothyroxine Sodium (SYNTHroid 125MCG TAB) 125 mcg DAILY@0630 PO 04/25/25 06:30 05/25/25 06:29 Magnesium Sulfate 50 ml @ 0 mls/hr PROTOCOL PRN IV OTHER [SEE ORDER COMMENTS] 04/22/25 20:00 05/22/25 19:59 Methylprednisolone Sodium Succinate (Solu-medROL 125MG) 125 mg Q6H IVP 04/23/25 08:00 05/23/25 07:59 04/25/25 09:45 125 MG Metoprolol Succinate (TopROL XL) 50 mg AM PO 04/25/25 09:00 05/25/25 08:59 04/25/25 09:45 50 MG Ondansetron HCl (zoFRAN 4MG INJ) 4 mg Q6H PRN IV NAUSEA/VOMITING 04/22/25 20:00 05/22/25 19:59 04/22/25 20:10 4 MG Pantoprazole Sodium (PROTonix 40MG INJ) 40 mg DAILY IVP 04/24/25 10:00 05/24/25 09:59 04/25/25 09:45 40 MG Potassium Chloride 100 ml @ 100 mls/hr AD PRN IV POTASSIUM PROTOCOL 04/22/25 20:00 05/22/25 19:59 Potassium Chloride (K-Dur/Klor-Con 20meq) 20 meq AD PRN PO POTASSIUM PROTOCOL 04/22/25 20:00 05/22/25 19:59 Potassium Chloride (KCl 10% Elixir 20meq/15ml) 20 meq AD PRN PO POTASSIUM PROTOCOL 04/22/25 20:00 05/22/25 19:59 Pramipexole Dihydrochloride (miraPEX 0.25MG TAB) 0.5 mg HS PO 04/24/25 21:00 05/24/25 20:59 04/24/25 20:43 0.5 MG Pregabalin ([id number]) 75 mg BID PO 04/24/25 21:00 04/24/25 14:49 DC Sodium Chloride 500 ml @ 0 mls/hr Q0M IV 04/25/25 11:00 05/25/25 10:59 Sodium Zirconium Cyclosilicate (Lokelma 10gm Powder) 10 gm TID PO 04/23/25 21:00 04/23/25 14:11 DC Tramadol HCl (UltRAM) 50 mg Q6H PRN PO MODERATE PAIN (4-6) 04/24/25 22:30 04/29/25 22:29 04/25/25 02:32 50 MG Trimethoprim/ Sulfamethoxazole (BactRIM DS) 1 tab BID PO 04/25/25 21:00 05/05/25 20:59 Vancomycin HCl 250 ml @ 125 mls/hr Q12H IV 04/24/25 23:00 04/25/25 12:36 DC 04/25/25 11:43 125 MLS/HR Vancomycin HCl (Vancomycin Protocol) 1 each AD IV 04/24/25 10:30 04/25/25 12:36 DC Venlafaxine HCl (EffEXOR XR 37.5mg CAP) 37.5 mg DAILY PO 04/24/25 16:00 05/24/25 15:59 04/25/25 09:45 37.5 MG Venlafaxine HCl (EffEXOR XR 37.5mg CAP) 37.5 mg DAILY PO 04/25/25 09:00 04/24/25 14:50 DC LABORATORY: [ ] Hematology Labs: Test 04/25/25 05:35 04/24/25 07:34 Range/Units White Blood Count 7.8 # 4.8-10.8 K/uL Red Blood Count 4.48 4.00-5.50 MIL/uL Hemoglobin 11.1 L 12.0-16.0 g/dL Hematocrit 36.4 36-48 % Mean Corpuscular Volume 81.3 79-99 fL Mean Corpuscular Hemoglobin 24.8 L 27.0-33.0 pg Mean Corpuscular Hemoglobin Concent 30.5 L 32.0-36.0 g/dL Red Cell Distribution Width 20.3 H 11.0-15.5 % Platelet Count 37 L 130-400 K/uL Mean Platelet Volume 7.5-10.5 fL Nucleated Red Blood Cells 1.1 H 0.0-0.19 % Immature Granulocyte % (Auto) 7.1 H 0-1 % Neutrophils (%) (Auto) 83.1 H 40.0-77.0 % Lymphocytes (%) (Auto) 4.6 L 21.0-51.0 % Monocytes (%) (Auto) 4.4 3.0-13.0 % Eosinophils (%) (Auto) 0.0 0.0-8.0 % Basophils (%) (Auto) 0.8 0.0-5.0 % Neutrophils # (Auto) 4.3 1.8-7.7 K/uL Lymphocytes # (Auto) 0.2 L 1.0-4.8 K/uL Monocytes # (Auto) 0.2 0.1-1.0 K/uL Eosinophils # (Auto) 0.00 0.00-0.70 K/uL Basophils # (Auto) 0.04 0.00-0.20 K/uL Absolute Immature Granulocyte (auto 0.37 0-1 K/uL Chemistry Labs: Test 04/25/25 10:43 04/25/25 10:19 04/25/25 06:08 04/25/25 05:35 Range/Units Whole Blood Glucose 395 H 70-110 MG/DL Ammonia 59 H 11-32 umol/L C-Reactive Protein, Quantitative 132.00 H 0.5-3.0 mg/L Bedside Glucose Comment Notified Nurse Sodium Level 132 L 136-145 mmol/L Potassium Level 5.1 3.5-5.1 mmol/L Chloride Level 100 L 101-111 mmol/L Carbon Dioxide Level 27 21-32 mmol/L Blood Urea Nitrogen 50 H 7-18 mg/dL Creatinine 1.1 H 0.5-1.0 mg/dL Glomerular Filtration Rate Calc 59 >90 mL/min Random Glucose 438 *H 70-105 mg/dL Hemoglobin A1c 9.2 H 4.0-6.0 % Estimated Average Glucose (eAG) 217 H 70-126 mg/dL Total Calcium 9.2 8.5-10.1 mg/dL Test 04/24/25 07:34 Range/Units Total Bilirubin 1.6 H 0.2-1.0 mg/dL Aspartate Amino Transf (AST/SGOT) 64 H 10-37 U/L Alanine Aminotransferase (ALT/SGPT) 59 12-78 U/L Alkaline Phosphatase 99 50-136 U/L Total Protein 7.4 6.0-8.3 g/dL Albumin 2.3 L 3.5-5.0 g/dL Triglycerides Level 172 30-200 mg/dL Cholesterol Level 109 # <200 mg/dL LDL Cholesterol 39 0-99 mg/dL HDL Cholesterol 14 L 35-85 mg/dL Cortisol AM Sample 22.9 H 6.2-19.4 ug/dL Coagulation Labs: Test 04/24/25 07:34 Range/Units Lupus Anticoag PTT Mix/Correction Hexagonal Phospholipid Neutralizat DIAGNOSTICS / RADIOLOGY: REASON: SEVERE LOWER BACK ACHE ORDERING PHYSICIAN: KALI ALBERT MD PROCEDURE: L SPIN WO - CT LUMBAR SPINE W/O CONTRAST EXAM: CT Lumbar Spine Without IV Contrast CLINICAL HISTORY: Pain. TECHNIQUE: Spiral axial CT images through the lumbar spine were acquired, reconstructed in axial and sagittal projections, and imaged using soft tissue and bone algorithms. Reformatted/MPR images were performed. CT scan is done according to ALARA (As Low as Reasonably Achievable). CONTRAST: None. COMPARISON: X-ray lumbar spine dated 04/20/25. FINDINGS: No acute fracture. Normal lordotic curvature. Mild levoscoliosis. Normal vertebral body heights. Diffuse osteopenia. Moderate lumbar spondylosis with multilevel marginal osteophytes, facet arthropathy, and degenerative disc space reduction, most pronounced at L4-L5. The surrounding soft tissues are unremarkable. Individual spinal levels are described as follows: T12-L1: No disc bulge or herniation. No neural foraminal, lateral recess or spinal canal stenosis. L1-L2: No disc bulge or herniation. No neural foraminal, lateral recess or spinal canal stenosis. L2-L3: 6 mm diffuse disc bulge. Severe right and moderate left lateral recess and neural foraminal stenosis. Moderate spinal canal stenosis. L3-L4: 4 mm diffuse disc bulge. Moderate bilateral lateral recess and neural foraminal stenosis. Mild spinal canal stenosis. L4-L5: 6 mm diffuse disc bulge. Bilateral ligamentum flavum and facet hypertrophy. Severe bilateral lateral recess and neural foraminal stenosis. Moderate spinal canal stenosis. L5-S1: 3 mm diffuse disc bulge. Bilateral facet hypertrophy. Severe bilateral lateral recess and neural foraminal stenosis. Mild spinal canal stenosis. IMPRESSION: No fracture or dislocation in the lumbar spine. Moderate lumbar spondylosis with multilevel marginal osteophytes, facet arthropathy, and degenerative disc space reduction, most pronounced at L4-L5. Diffuse osteopenia. Mild levoscoliosis. Diffuse disc bulges from L2-L3 through L5-S1. Severe right and moderate left lateral recess and neural foraminal stenosis at L2-L3 with moderate spinal canal stenosis. Moderate bilateral lateral recess and neural foraminal stenosis at L3-L4 with mild spinal canal stenosis. Severe bilateral lateral recess and neural foraminal stenosis at L4-L5 with moderate spinal canal stenosis. Severe bilateral lateral recess and neural foraminal stenosis at L5-S1 with mild spinal canal stenosis. /[place] DICTATED BY: MARISELA MCDONOUGH MD DATE: 04/24/25 1401 REASON: CIRRHOSIS ORDERING PHYSICIAN: KALI ALBERT MD PROCEDURE: ABDRUQLTD - US ABDOMINAL RUQ\LTD EXAMINATION: ULTRASOUND OF THE ABDOMEN (LIMITED) WITH COLOR DOPPLER. CLINICAL HISTORY: Cirrhosis. COMPARISON: CT abdomen and pelvis without contrast dated 04/22/2025. TECHNIQUE: Real-time grayscale ultrasound images of the abdomen. In addition, color Doppler is medically necessary to perform in order to evaluate vascularity and blood flow. FINDINGS: Liver: Normal in caliber, the right hepatic lobe measures 14.1 cm in the craniocaudal dimension. There is coarse echotexture of the hepatic parenchyma. There is no intrahepatic biliary ductal dilatation. There is normal spectral Doppler of the main portal vein. There is a hypoechoic lesion that measures 1.3 x 1.1 x 1.7 cm in the right lobe. Gallbladder: Post cholecystectomy status. Common bile duct is normal in caliber, measuring 0.5 cm. Pancreas: Obscured by overlying bowel gas The right kidney is normal in caliber, the right kidney measures 13.4 x 6.6 x 6.4 cm in craniocaudal, AP, and transverse dimensions respectively. There is normal renal cortical thickness, and cortical echogenicity. There is no renal calculus. There is moderate right hydronephrosis. IMPRESSION: Chronic hepatic disease. Hypoechoic lesion in the right lobe of the liver may reflect complex cyst. Post cholecystectomy status. Moderate right hydronephrosis. Recommend CT abdomen and pelvis with contrast. /[place] DICTATED BY: MARISELA MCDONOUGH MD DATE: 04/24/25 1158 REASON: Abdominal pain ORDERING PHYSICIAN: CAROL CLAYTON MD PROCEDURE: ABD PEL WO - CT ABDOMEN/PELVIS W/O CONTRAST EXAM: CT Abdomen and Pelvis without IV contrast CLINICAL HISTORY: Abdominal pain TECHNIQUE: Axial computed tomography images of the abdomen and pelvis without intravenous contrast. CT scan performed according to ALARA. Automated exposure control used during exam. CONTRAST: without intravenous contrast. COMPARISON: CT images dated February 20, 2025 FINDINGS: Lung bases are clear. Cirrhotic hepatic morphology. Splenomegaly reflect sequela of portal venous hypertension. Bilateral adrenal glands, and pancreas are within normal limits. The gallbladder is surgically absent. Bilateral renal cortical thickening with the cortices measuring up to 3.2 cm, may reflect renal parenchymal disease. Recommend correlation with laboratory parameters. No renal calculus or hydronephrosis appreciated. Bowel loops are normal in caliber without evidence of obstruction, ileus, or obvious bowel wall thickening. The appendix is within normal limits. No abnormality within the unopacified bladder. Pelvic organs demonstrate appropriate CT appearances. Trace free fluid within the pelvis. Presumed 3.0 x 1.7 cm seroma or sebaceous cyst within the ventral abdominal wall subcutaneous layer. There is no lymphadenopathy. There is no acute or suspicious osseous abnormality. IMPRESSION: 1. No acute intraabdominal or pelvic pathology. 2. Cirrhotic liver morphology with splenomegaly, consistent with portal hypertension. 3. Bilateral renal cortical thickening, may reflect renal parenchymal disease. /[place] DICTATED BY: BROOKLYN LOPEZ Jr., MD DATE: 04/22/251917 ASSESSMENT: Intractable low back pain due to spinal stenosis POA 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 POA Acute urinary tract infection due to MRSA POA Hypervolemic hyponatremia POA Chronic anemia POA Hyponatremia POA Acute kidney injury on renal insufficiency POA Hyperglycemia due to uncontrolled diabetes POA Hypocalcemia POA Cirrhotic liver with splenomegaly consistent with portal hypertension per CT POA Esophageal varices Renal parenchymal disease per CT POA Hypothyroidism POA Hypocalcemia POA Hyperlipidemia POA Hypertension POA Anxiety disorder POA Depression POA Restless leg syndrome POA Suspected obstructive sleep apnea untreated POA Morbid obesity POA PLAN: Labs, diagnostic, radiologic exams reviewed and interpreted by myself and supervising physician. We have reviewed external records in detail Avoid sedatives and narcotics Continue with lactulose. Require close monitoring of renal function and electrolytes Order CBC, CMP, and electrolytes in am Continue with antibiotics BiPAP as necessary, for respiratory distress Monitor blood pressure adjust medication doses as needed Avoid hypotensive episodes May use Dilaudid 0.5 mg IV every 6 hours as needed for severe pain Monitor blood sugars Strict intake, output, and daily weight should be monitored Please renally adjust medications Avoid nephrotoxic and nonsteroidal drugs Avoid contrast if possible Will continue to monitor renal function, anemia, electrolytes Treatment plan discussed with patient Questions were answered We have discussed with the other team physicians in detail about the care plan We will continue to monitor the patient closely ATTESTATION BY PHYSICIAN I have seen and examined the patient. I reviewed the documentation, medical decision making, and treatment plan as noted by the mid-level provider above. I agree with the findings and plan of care. ELKIN JOLLY MD, [facility] Apr 25, 2025 14:38
--- NOTE | 2025-04-25 15:58 | NUR ---
patient confused/restless/uncooperative taking off nasal cannula. sitter at bedside. will continue monitoring pt and o2. Addendum: 04/25/25 at 1611 by TREVOR CAMARA RN RN Amended: Links added.
[2025-04-25 17:18] LABS: RAPID GROUP A STREP negative (NEGATIVE)
[2025-04-25 17:27] LABS: COVID19 (SARS ANTIGEN RAPID) PRESUMPTIVE NEGATIVE (NEGATIVE); INFLUENZA TYPE A Negative For Type A (NEGATIVE); INFLUENZA TYPE B Negative For Type B (NEGATIVE)
[2025-04-25] MEDS: LACTULOSE 20 GM/30 ML UDCUP PR ONE (17:30)
--- NOTE | 2025-04-25 18:19 | NUR ---
SPOKE WITH PAULA REGARDING ABG ORDER STAT. STATED SHE IS GIVING REPORT AND WILL SEND SOMEONE TO F/U AFTER REPORT.
--- NOTE | 2025-04-25 18:29 | NUR ---
SPOKE WITH AYUSH REGARDING NEW ORDER STAT FOR D DIMER. STATED SHOP TECHNICIAN IS ON THE WAY TO DRAW LAB. LEAD HANDLER AT BEDSIDE AT 1833.
--- NOTE | 2025-04-25 20:05 | NUR ---
NOTE PATIENT IS CONFUSED, RESTLESS, SHOUTING AND TAKING OF NASAL CANNULA, WAS PREVIOUSLY GIVEN ATIVAN 0.5MG PO. SITTER IS AT BEDSIDE WILL CONTINUE TO MONITOR.
--- NOTE | 2025-04-25 21:21 | CONS ---
INFECTIOUS DISEASE CONSULTATION DATE OF SERVICE: 04/25/2025. REQUESTING PHYSICIAN: Dr. Naylor. REASON FOR CONSULTATION: UTI and antibiotic management. HISTORY OF PRESENT ILLNESS: A 54-year-old female with morbid obesity, hypertension, diabetes mellitus, presented to the hospital with lower back pain. No history of trauma or fall. CT of the lower back has been done which showed multilevel degenerative changes. The patient also complained of urinary symptoms. Urinalysis came back positive for MRSA. Abdominal sonogram shows moderate right hydronephrosis. The patient also found with hyperglycemia with glucose of 436. No fever or chills. The patient was seen today pain to the back. PAST MEDICAL HISTORY: * Diabetes mellitus. * Morbid obesity. * Hypertension. * Dyslipidemia. * Hypothyroidism. * Restless legs syndrome. * Anxiety disorder. * SLE. * Depression. PAST SURGICAL HISTORY: * Cholecystectomy. * Tubal ligation. ALLERGIES: No known drug allergies. CURRENT MEDICATIONS: Include: * Vancomycin. * Ceftriaxone. * Insulin. * . * Lovenox. * Synthroid. SOCIAL HISTORY: Lives with . No alcohol, tobacco, or illicit drug use. FAMILY HISTORY: Positive for diabetes mellitus. REVIEW OF SYSTEMS: Greater than 10 systems were reviewed, negative except as documented above. PHYSICAL EXAMINATION: GENERAL: A middle-aged female, awake, in distress due to pain from the right lower back. VITAL SIGNS: Temperature 97.5, pulse 96, respiratory rate 18, BP 162/92. EYES: No icterus. Pupils equal and reactive. HENT: No oral thrush seen. Moist oral mucosa. NECK: Supple. No JVD or thyromegaly. LUNGS: Good air entry. No rales, no rhonchi. CARDIOVASCULAR: S1, S2, regular. No murmur heard. ABDOMEN: Obese, soft, nontender. Bowel sound is present. CENTRAL NERVOUS SYSTEM: Awake, alert, oriented x 3. No focal deficit. SKIN: No rashes, no itchiness. LYMPHATIC: No peripheral lymphadenopathy. MUSCULOSKELETAL: No joint swelling, erythema, or tenderness. BACK: No deformity, no pressure ulcer. LABORATORY DATA: Glucose 436, sodium 132, potassium 5.1, BUN 50, creatinine 1.1. WBC 7.8, hemoglobin 11.1, platelets 37. Urine culture grew MRSA. RADIOLOGY: CT of the abdomen shows liver cirrhosis. Abdominal sonogram shows moderate right hydronephrosis and liver contour changes. ASSESSMENT: A 54-year-old female with multiple problems include. * UTI. * Hydronephrosis. * . * Non-ketotic hyperglycemia. * Morbid obesity. * Back pain. * Thrombocytopenia. * Liver cirrhosis. * Hypothyroidism. PLAN: * Continue Synthroid. * Discontinue vancomycin. * Obtain blood culture. * Discontinue ceftriaxone. * Start the patient on Bactrim. * Obtain MRI of the lumbar spine. * Continue pain management. * Continue antidiabetic. * The patient will be followed up closely. Thank you for allowing me to participate in the care of this patient. TID: [id number] RECEIPT: [id number]
[2025-04-26] VITALS (46 sets, daily range): BP systolic 96–168; BP diastolic 50–101; PULSE 44–89; RESP 10–21; TEMP 97.4–98.2; O2SAT 97–99
--- NOTE | 2025-04-26 03:32 | NUR ---
NOTE PATIENT HAS BEEN SLEEPING COMFORTABLY,NO DISTRESS/DISCOMFORT NOTED, VITAL SIGNS WNL WILL CONTINUE TO MONITOR.
[2025-04-26 04:18] LABS: ABG OXYGEN SATURATION 64.0 % (94.0-98.0); BASE EXCESS,VENOUS BLOOD GAS 1.3 (-2.0-3.0); DEVICE COMMENT LAB; HCO3,VENOUS BLOOD GAS 29.1 (22.0-29.0); PCO2,VENOUS BLOOD GAS 59 (38-54); PH,VENOUS BLOOD GAS 7.310 (7.320-7.430); PO2,VENOUS BLOOD GAS 36.9 mmHg (23.0-48.0); TEMPERATURE, CELSIUS BG 37.0 CELSIUS (35.5-37.0); VENT MODE, BG NC (ROOM AIR)
[2025-04-26 04:22] LABS: IMMATURE GRANULOCYTE ABSOLUTE 0.72 K/uL (0-1); PLATELET COUNT (AUTO) 36 K/uL (130-400); RED BLOOD CELL COUNT(AUTO) 4.25 MIL/uL (4.00-5.50); RED CELL DISTRIBUTION WIDTH 20.5 % (11.0-15.5); WHITE BLOOD COUNT (AUTO) 10.6 K/uL (4.8-10.8)
--- NOTE | 2025-04-26 04:24 | NUR ---
NOTE MADE MARCELINA DE LA VEGA NP AWARE OF ABG RESULTS, N/O INCREASE O2 TO 4L NASAL CANNULA.
[2025-04-26 04:34] LABS: INR 1.29 (0.85-1.15)
--- NOTE | 2025-04-26 04:34 | NUR ---
BEHAVIOR PATIENT IS NOW AWAKE VERY RESTLESS AND YELLING WILL NOT KEEP NASAL CANNULA ON.
[2025-04-26 04:46] LABS: ASPARTATE AMINOTRANSFERASE 77.0 U/L (10-37); CREATINE KINASE, TOTAL 178.0 U/L (21-232); CREATININE 0.9 mg/dL (0.5-1.0); GLOMERULAR FILTR. RATE CALC 76.0 mL/min (>90); GLUCOSE,RANDOM 167.0 mg/dL (70-105); SODIUM SERUM 146.0 mmol/L (136-145); TOTAL PROTEIN, SERUM 7.4 g/dL (6.0-8.3); UREA NITROGEN, BLOOD 51.0 mg/dL (7-18)
[2025-04-26] MEDS: HALOPERIDOL INJ 5 MG/ML VIAL IM ONE (05:17)
[2025-04-26 05:29] LABS: ERYTHROCYTE SEDIMENTATION RATE 55 MM/HR (0-30)
[2025-04-26 05:42] LABS: BAND NEUTROPHILS % (MANUAL) 3 % (0-2); METAMYELOCYTES % 3 % (0-0); MONOCYTES % (MANUAL) 6 % (2-9); MYELOCYTES % 1 % (0-0); NUCLEATED RED BLOOD CELLS 2.1 % (0.0-0.19); REACTIVE LYMPHOCYTES 1 % (0-0); SEGMENTED NEUTROPHILS % 86 % (40-70)
[2025-04-26 05:43] LABS: MAN.DIFF COMMENT-IMPRESSION MANUAL DIFFERENTIAL
[2025-04-26 05:44] LABS: PLATELET MORPHOLOGY COMMENT MARKED DECREASE
--- NOTE | 2025-04-26 06:49 | NUR ---
NOTE SCHEDULED INSULIN R 25UNITS NOT ADMINISTERED D/T PATIENT VERY LETHARGIC AT THIS TIME, 4UNITS R SLIDING SCALE WERE ADMINISTERED.
[2025-04-26 07:47] LABS: PHOSPHORUS 3.0 mg/dL (2.5-4.9)
--- NOTE | 2025-04-26 10:06 | PN ---
NEPHROLOGY PROGRESS NOTE Date/Time Patient Seen: Apr 26, 2025 SUBJECTIVE: This is 54-year-old female with history of undiagnosed obstructive sleep apnea,diabetes type 2, hypertension, hyperlipidemia, hypothyroidism, restless leg syndrome, anxiety disorder,depression, lupus and severe morbid obesity The patient presented to the hospital with complaints of lower back pain. The patient had been taking prednisone as an outpatient. In the Emergency Room, the patient was found to have significant renal dysfunction with an elevated BUN and creatinine as well as significant hyperkalemia. The patient was treated medically for the hyperkalemia. Renal function did improve with hydration and she is being seen in consultation for all of the above. Creatinine did improve with the IV hydration. The patient's hyperkalemia has resolved and we will continue to follow the chemistries closely. The patient remains on Rocephin for urinary tract infection. Renal function is improving Electrolytes are stable Nurse reports altered mental status Pending CT of the brain and MRI spine, unable to be done due to patient's agitation Pending transferred to ICU REVIEW OF SYSTEMS: Unable to obtain due to patient's status Vital Signs (last 8hr) Date Time Temp Pulse Resp B/P (MAP) Pulse Ox O2 Delivery O2 Flow Rate FiO2 04/26/25 07:28 97.3 78 18 133/73 97 Nasal Cannula 3.0 04/26/25 06:41 83 16 N/Cannula Low lpm 4.0 36 04/26/25 03:27 97.7 76 18 122/93 91 Nasal Cannula PHYSICAL EXAM: GENERAL: Alert and oriented x 3. No acute distress. Well-nourished. EYES: EOMI. Anicteric. HENT: Moist mucous membranes. No scleral icterus. No cervical lymphadenopathy. LUNGS: Clear to auscultation bilaterally. No accessory muscle use. CARDIOVASCULAR: Regular rate and rhythm. No murmur. No JVD. ABDOMEN: Soft, non-tender and non-distended. No palpable masses. EXTREMITIES: No edema. Non-tender. SKIN: No rashes or lesions. Warm. NEUROLOGIC: No focal neurological deficits. CN II-XII grossly intact, but not individually tested. PSYCHIATRIC: Cooperative. Appropriate mood and affect. Current Medications Medications (Trade) Dose Ordered Sig/Roberth Route PRN Reason Start Time Stop Time Status Last Admin Dose Admin Acetaminophen (TYLenol 325MG TAB) 650 mg Q4H PRN PO MILD PAIN (1-3) 04/22/25 20:00 05/22/25 19:59 04/24/25 20:44 650 MG Acetaminophen (TYLenol 325MG TAB) 650 mg Q6H PRN PO TEMPERATURE GREATER THAN 101.5 04/22/25 20:00 05/22/25 19:59 04/23/25 10:02 650 MG Atorvastatin Calcium (LIPItor 20MG) 20 mg HS PO 04/24/25 21:00 05/24/25 20:59 04/24/25 19:57 20 MG Ceftriaxone Sodium 1 gm/ Sodium Chloride 50 ml @ 100 mls/hr BID IV 04/22/25 21:00 04/22/25 19:59 DC Ceftriaxone Sodium (ROCEphine 1G INJ) 1 gm BID IVPB 04/22/25 21:00 04/22/25 20:44 DC Ceftriaxone Sodium (ROCEphine 1G INJ) 1 gm BID IVPB 04/23/25 09:00 04/25/25 12:36 DC 04/25/25 09:44 1 GM Dextrose (D50w) 50 ml AD PRN IV HYPOGLYCEMIA PROTOCOL 04/22/25 20:00 05/22/25 19:59 Famotidine (Pepcid 20mg Tab) 20 mg DAILY PO 04/23/25 09:00 04/24/25 09:48 DC 04/23/25 09:33 20 MG Gabapentin (NEURontin 300 MG CAP) 300 mg BID PO 04/24/25 21:00 05/24/25 20:59 04/25/25 09:46 300 MG Glucagon (Glucagon 1mg Kit) 1 mg AD PRN IM HYPOGLYCEMIA PROTOCOL 04/22/25 20:00 05/22/25 19:59 Heparin Sodium (Porcine) (HEParin 5,000 UNIT VIAL) 5,000 unit Q8H SQ 04/25/25 09:00 04/25/25 08:40 DC Hydromorphone HCl (DiLAUDid 0.5MG INJ) 0.5 mg BIDPRN PRN IVP SEVERE PAIN (7-10) 04/25/25 19:00 04/30/25 18:59 Hydromorphone HCl (DiLAUDid 0.5MG INJ) 0.5 mg Q6H PRN IVP SEVERE PAIN (7-10) 04/23/25 14:00 04/25/25 08:25 DC 04/25/25 04:14 0.5 MG Insulin Glargine (LANtus 100 UNITS/ML 10 ML VIAL) 10 units HS SQ 04/24/25 21:00 04/24/25 16:57 DC Insulin Glargine (LANtus 100 UNITS/ML 10 ML VIAL) 10 units ONCE STAT SQ 04/24/25 10:54 04/24/25 11:00 DC 04/24/25 11:19 10 UNITS Insulin Glargine (LANtus 100 UNITS/ML 10 ML VIAL) 15 units HS SQ 04/24/25 21:00 04/24/25 17:06 DC Insulin Glargine (LANtus 100 UNITS/ML 10 ML VIAL) 30 units ONCE SQ 04/24/25 17:00 04/25/25 06:19 DC 04/24/25 18:16 30 UNITS Insulin Human Regular (humuLIN R 100 UNIT/ML 3ML) 5 unit TIDAC SQ 04/24/25 17:00 04/24/25 17:06 DC Insulin Human Regular (humuLIN R 100 UNIT/ML 3ML) 10 unit TIDAC SQ 04/24/25 17:00 04/25/25 06:17 DC 04/25/25 06:15 10 UNIT Insulin Human Regular (humuLIN R 100 UNIT/ML 3ML) 25 unit TIDAC SQ 04/25/25 07:30 05/25/25 07:29 04/25/25 11:58 25 UNIT Insulin Human Regular (humuLIN R 100 UNIT/ML 3ML) INSULIN SLIDING SCAL... ACHS SQ 04/22/25 21:00 04/24/25 16:16 DC 04/24/25 11:18 8 UNIT Insulin Human Regular (humuLIN R 100 UNIT/ML 3ML) INSULIN SLIDING SCAL... ACHS SQ 04/24/25 16:30 04/25/25 14:09 DC 04/25/25 11:57 16 UNIT Insulin Human Regular (humuLIN R 100 UNIT/ML 3ML) INSULIN SLIDING SCAL... ACHS SQ 04/25/25 16:30 05/25/25 16:29 Lactated Ringer's 1,000 ml @ 100 mls/hr Q10H IV 04/22/25 20:00 04/23/25 10:09 DC 04/23/25 06:00 100 MLS/HR Lactulose (Constulose 20gm/ 30ml Udcup) 30 gm TID PO 04/25/25 11:00 05/25/25 10:59 04/25/25 11:43 30 GM Levothyroxine Sodium (SYNTHroid 125MCG TAB) 125 mcg DAILY@0630 PO 04/25/25 06:30 05/25/25 06:29 Magnesium Sulfate 50 ml @ 0 mls/hr PROTOCOL PRN IV OTHER [SEE ORDER COMMENTS] 04/22/25 20:00 05/22/25 19:59 Methylprednisolone Sodium Succinate (Solu-medROL 125MG) 125 mg Q6H IVP 04/23/25 08:00 05/23/25 07:59 04/25/25 09:45 125 MG Metoprolol Succinate (TopROL XL) 50 mg AM PO 04/25/25 09:00 05/25/25 08:59 04/25/25 09:45 50 MG Ondansetron HCl (zoFRAN 4MG INJ) 4 mg Q6H PRN IV NAUSEA/VOMITING 04/22/25 20:00 05/22/25 19:59 04/22/25 20:10 4 MG Pantoprazole Sodium (PROTonix 40MG INJ) 40 mg DAILY IVP 04/24/25 10:00 05/24/25 09:59 04/25/25 09:45 40 MG Potassium Chloride 100 ml @ 100 mls/hr AD PRN IV POTASSIUM PROTOCOL 04/22/25 20:00 05/22/25 19:59 Potassium Chloride (K-Dur/Klor-Con 20meq) 20 meq AD PRN PO POTASSIUM PROTOCOL 04/22/25 20:00 05/22/25 19:59 Potassium Chloride (KCl 10% Elixir 20meq/15ml) 20 meq AD PRN PO POTASSIUM PROTOCOL 04/22/25 20:00 05/22/25 19:59 Pramipexole Dihydrochloride (miraPEX 0.25MG TAB) 0.5 mg HS PO 04/24/25 21:00 05/24/25 20:59 04/24/25 20:43 0.5 MG Pregabalin ([id number]) 75 mg BID PO 04/24/25 21:00 04/24/25 14:49 DC Sodium Chloride 500 ml @ 0 mls/hr Q0M IV 04/25/25 11:00 05/25/25 10:59 Sodium Zirconium Cyclosilicate (Lokelma 10gm Powder) 10 gm TID PO 04/23/25 21:00 04/23/25 14:11 DC Tramadol HCl (UltRAM) 50 mg Q6H PRN PO MODERATE PAIN (4-6) 04/24/25 22:30 04/29/25 22:29 04/25/25 02:32 50 MG Trimethoprim/ Sulfamethoxazole (BactRIM DS) 1 tab BID PO 04/25/25 21:00 05/05/25 20:59 Vancomycin HCl 250 ml @ 125 mls/hr Q12H IV 04/24/25 23:00 04/25/25 12:36 DC 04/25/25 11:43 125 MLS/HR Vancomycin HCl (Vancomycin Protocol) 1 each AD IV 04/24/25 10:30 04/25/25 12:36 DC Venlafaxine HCl (EffEXOR XR 37.5mg CAP) 37.5 mg DAILY PO 04/24/25 16:00 05/24/25 15:59 04/25/25 09:45 37.5 MG Venlafaxine HCl (EffEXOR XR 37.5mg CAP) 37.5 mg DAILY PO 04/25/25 09:00 04/24/25 14:50 DC LABORATORY: [ ] Hematology Labs: Test 04/26/25 04:16 Range/Units White Blood Count 10.6 # 4.8-10.8 K/uL Red Blood Count 4.25 4.00-5.50 MIL/uL Hemoglobin 10.4 L 12.0-16.0 g/dL Hematocrit 34.3 L 36-48 % Mean Corpuscular Volume 80.7 79-99 fL Mean Corpuscular Hemoglobin 24.5 L 27.0-33.0 pg Mean Corpuscular Hemoglobin Concent 30.3 L 32.0-36.0 g/dL Red Cell Distribution Width 20.5 H 11.0-15.5 % Platelet Count 36 L 130-400 K/uL Mean Platelet Volume 7.5-10.5 fL Immature Granulocyte % (Auto) 6.8 H 0-1 % Neutrophils (%) (Auto) 81.2 H 40.0-77.0 % Lymphocytes (%) (Auto) 3.9 L 21.0-51.0 % Monocytes (%) (Auto) 7.8 3.0-13.0 % Eosinophils (%) (Auto) 0.2 0.0-8.0 % Basophils (%) (Auto) 0.1 0.0-5.0 % Neutrophils # (Auto) 8.6 H 1.8-7.7 K/uL Lymphocytes # (Auto) 0.4 L 1.0-4.8 K/uL Monocytes # (Auto) 0.8 0.1-1.0 K/uL Eosinophils # (Auto) 0.02 0.00-0.70 K/uL Basophils # (Auto) 0.01 0.00-0.20 K/uL Absolute Immature Granulocyte (auto 0.72 0-1 K/uL Segmented Neutrophils % 86 H 40-70 % Band Neutrophils % 3 H 0-2 % Monocytes % (Manual) 6 2-9 % Metamyelocytes % 3 H 0-0 % Myelocytes % 1 H 0-0 % Nucleated Red Blood Cells 2.1 H 0.0-0.19 % Differential Comment MANUAL DIFFERENTIAL Reactive Lymphocytes 1 H 0-0 % White Cell Morphology Comment See comments Platelet Morphology Comment MARKED DECREASE Red Blood Cell Morphology HYPOCHROM CELLS 1+ Erythrocyte Sedimentation Rate 55 H 0-30 MM/HR Chemistry Labs: Test 04/26/25 05:01 04/26/25 04:16 04/25/25 06:08 04/25/25 05:35 Range/Units Whole Blood Glucose 175 H 70-110 MG/DL Sodium Level 146 H 136-145 mmol/L Potassium Level 4.5 3.5-5.1 mmol/L Chloride Level 110 101-111 mmol/L Carbon Dioxide Level 30 21-32 mmol/L Blood Urea Nitrogen 51 H 7-18 mg/dL Creatinine 0.9 0.5-1.0 mg/dL Glomerular Filtration Rate Calc 76 >90 mL/min Random Glucose 167 #H 70-105 mg/dL Total Calcium 9.5 8.5-10.1 mg/dL Phosphorus Level 3.0 2.5-4.9 mg/dL Magnesium Level 2.40 1.80-2.40 mg/dL Total Bilirubin 1.8 H 0.2-1.0 mg/dL Direct Bilirubin 1.2 H 0.0-0.3 mg/dL Aspartate Amino Transf (AST/SGOT) 77 H 10-37 U/L Alanine Aminotransferase (ALT/SGPT) 63 12-78 U/L Alkaline Phosphatase 184 H 50-136 U/L Ammonia 12 # 11-32 umol/L Total Creatine Kinase 178 # 21-232 U/L C-Reactive Protein, Quantitative 83.50 H 0.5-3.0 mg/L Total Protein 7.4 6.0-8.3 g/dL Albumin 2.4 L 3.5-5.0 g/dL Bedside Glucose Comment Notified Nurse Hemoglobin A1c 9.2 H 4.0-6.0 % Estimated Average Glucose (eAG) 217 H 70-126 mg/dL Coagulation Labs: Test 04/26/25 04:16 Range/Units Prothrombin Time 13.3 H 9.6-11.6 SEC Prothromb Time International Ratio 1.29 H 0.85-1.15 DIAGNOSTICS / RADIOLOGY: REASON: SEVERE LOWER BACK ACHE ORDERING PHYSICIAN: KALI ALBERT MD PROCEDURE: L SPIN WO - CT LUMBAR SPINE W/O CONTRAST EXAM: CT Lumbar Spine Without IV Contrast CLINICAL HISTORY: Pain. TECHNIQUE: Spiral axial CT images through the lumbar spine were acquired, reconstructed in axial and sagittal projections, and imaged using soft tissue and bone algorithms. Reformatted/MPR images were performed. CT scan is done according to ALARA (As Low as Reasonably Achievable). CONTRAST: None. COMPARISON: X-ray lumbar spine dated 04/20/25. FINDINGS: No acute fracture. Normal lordotic curvature. Mild levoscoliosis. Normal vertebral body heights. Diffuse osteopenia. Moderate lumbar spondylosis with multilevel marginal osteophytes, facet arthropathy, and degenerative disc space reduction, most pronounced at L4-L5. The surrounding soft tissues are unremarkable. Individual spinal levels are described as follows: T12-L1: No disc bulge or herniation. No neural foraminal, lateral recess or spinal canal stenosis. L1-L2: No disc bulge or herniation. No neural foraminal, lateral recess or spinal canal stenosis. L2-L3: 6 mm diffuse disc bulge. Severe right and moderate left lateral recess and neural foraminal stenosis. Moderate spinal canal stenosis. L3-L4: 4 mm diffuse disc bulge. Moderate bilateral lateral recess and neural foraminal stenosis. Mild spinal canal stenosis. L4-L5: 6 mm diffuse disc bulge. Bilateral ligamentum flavum and facet hypertrophy. Severe bilateral lateral recess and neural foraminal stenosis. Moderate spinal canal stenosis. L5-S1: 3 mm diffuse disc bulge. Bilateral facet hypertrophy. Severe bilateral lateral recess and neural foraminal stenosis. Mild spinal canal stenosis. IMPRESSION: No fracture or dislocation in the lumbar spine. Moderate lumbar spondylosis with multilevel marginal osteophytes, facet arthropathy, and degenerative disc space reduction, most pronounced at L4-L5. Diffuse osteopenia. Mild levoscoliosis. Diffuse disc bulges from L2-L3 through L5-S1. Severe right and moderate left lateral recess and neural foraminal stenosis at L2-L3 with moderate spinal canal stenosis. Moderate bilateral lateral recess and neural foraminal stenosis at L3-L4 with mild spinal canal stenosis. Severe bilateral lateral recess and neural foraminal stenosis at L4-L5 with moderate spinal canal stenosis. Severe bilateral lateral recess and neural foraminal stenosis at L5-S1 with mild spinal canal stenosis. /[place] DICTATED BY: MARISELA MCDONOUGH MD DATE: 04/24/25 1401 REASON: CIRRHOSIS ORDERING PHYSICIAN: KALI ALBERT MD PROCEDURE: [id number] - [facility]BDOMINAL [facility] EXAMINATION: ULTRASOUND OF THE ABDOMEN (LIMITED) WITH COLOR DOPPLER. CLINICAL HISTORY: Cirrhosis. COMPARISON: CT abdomen and pelvis without contrast dated 04/22/2025. TECHNIQUE: Real-time grayscale ultrasound images of the abdomen. In addition, color Doppler is medically necessary to perform in order to evaluate vascularity and blood flow. FINDINGS: Liver: Normal in caliber, the right hepatic lobe measures 14.1 cm in the craniocaudal dimension. There is coarse echotexture of the hepatic parenchyma. There is no intrahepatic biliary ductal dilatation. There is normal spectral Doppler of the main portal vein. There is a hypoechoic lesion that measures 1.3 x 1.1 x 1.7 cm in the right lobe. Gallbladder: Post cholecystectomy status. Common bile duct is normal in caliber, measuring 0.5 cm. Pancreas: Obscured by overlying bowel gas The right kidney is normal in caliber, the right kidney measures 13.4 x 6.6 x 6.4 cm in craniocaudal, AP, and transverse dimensions respectively. There is normal renal cortical thickness, and cortical echogenicity. There is no renal calculus. There is moderate right hydronephrosis. IMPRESSION: Chronic hepatic disease. Hypoechoic lesion in the right lobe of the liver may reflect complex cyst. Post cholecystectomy status. Moderate right hydronephrosis. Recommend CT abdomen and pelvis with contrast. /[place] DICTATED BY: MARISELA MCDONOUGH MD DATE: 04/24/25 1158 REASON: Abdominal pain ORDERING PHYSICIAN: CAROL CLAYTON MD PROCEDURE: ABD PEL WO - CT ABDOMEN/PELVIS W/O CONTRAST EXAM: CT Abdomen and Pelvis without IV contrast CLINICAL HISTORY: Abdominal pain TECHNIQUE: Axial computed tomography images of the abdomen and pelvis without intravenous contrast. CT scan performed according to ALARA. Automated exposure control used during exam. CONTRAST: without intravenous contrast. COMPARISON: CT images dated February 20, 2025 FINDINGS: Lung bases are clear. Cirrhotic hepatic morphology. Splenomegaly reflect sequela of portal venous hypertension. Bilateral adrenal glands, and pancreas are within normal limits. The gallbladder is surgically absent. Bilateral renal cortical thickening with the cortices measuring up to 3.2 cm, may reflect renal parenchymal disease. Recommend correlation with laboratory parameters. No renal calculus or hydronephrosis appreciated. Bowel loops are normal in caliber without evidence of obstruction, ileus, or obvious bowel wall thickening. The appendix is within normal limits. No abnormality within the unopacified bladder. Pelvic organs demonstrate appropriate CT appearances. Trace free fluid within the pelvis. Presumed 3.0 x 1.7 cm seroma or sebaceous cyst within the ventral abdominal wall subcutaneous layer. There is no lymphadenopathy. There is no acute or suspicious osseous abnormality. IMPRESSION: 1. No acute intraabdominal or pelvic pathology. 2. Cirrhotic liver morphology with splenomegaly, consistent with portal hypertension. 3. Bilateral renal cortical thickening, may reflect renal parenchymal disease. /[place] DICTATED BY: BROOKLYN LOPEZ Jr., MD DATE: 04/22/25 1918 ASSESSMENT: Intractable low back pain due to spinal stenosis POA 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 POA Acute urinary tract infection due to MRSA POA Hypervolemic hyponatremia POA Chronic anemia POA Hyponatremia POA Acute kidney injury on renal insufficiency POA Hyperglycemia due to uncontrolled diabetes POA Hypocalcemia POA Cirrhotic liver with splenomegaly consistent with portal hypertension per CT POA Esophageal varices Renal parenchymal disease per CT POA Hypothyroidism POA Hypocalcemia POA Hyperlipidemia POA Hypertension POA Anxiety disorder POA Depression POA Restless leg syndrome POA Suspected obstructive sleep apnea untreated POA Morbid obesity POA PLAN: Labs, diagnostic, radiologic exams reviewed and interpreted by myself and supervising physician. We have reviewed external records in detail Pending CT and MRI Pending transferred to ICU Continue with lactulose. Require close monitoring of renal function and electrolytes Order CBC, CMP, and electrolytes in am Continue with antibiotics BiPAP as necessary, for respiratory distress Monitor blood pressure adjust medication doses as needed Avoid hypotensive episodes May use Dilaudid 0.5 mg IV every 6 hours as needed for severe pain Monitor blood sugars Strict intake, output, and daily weight should be monitored Please renally adjust medications Avoid nephrotoxic and nonsteroidal drugs Avoid contrast if possible Will continue to monitor renal function, anemia, electrolytes Treatment plan discussed with patient Questions were answered We have discussed with the other team physicians in detail about the care plan We will continue to monitor the patient closely ATTESTATION BY PHYSICIAN I have seen and examined the patient. I reviewed the documentation, medical decision making, and treatment plan as noted by the mid-level provider above. I agree with the findings and plan of care. ELKIN JOLLY MD, [facility] Apr 26, 2025 10:06
--- NOTE | 2025-04-26 10:07 | NUR ---
ATTEMPTED TO REACH DR. ROBLEDO REGARDING NEW CONSULT. PAGER NUMBER NOT OPERATIONAL AT THIS TIME. ATTEMPTED TO CALL OFFICE NUMBER 2 TIMES WITH NO RESPONSE FROM ANSWERING SERVICE.
--- NOTE | 2025-04-26 10:25 | NUR ---
UNABLE TO ADMINISTER PO A.M. MEDICATIONS AT THIS TIME. PATIENT IS EXTREMELY AGITATED AND SCREAMING. PATIENT SCREAMS, "WHY ME, ME? HELP THEM FIRST"! PATIENT DOES NOT FOLLOW INSTRUCTIONS AND CANNOT SAFELY SWALLOW MEDICATIONS AT THIS TIME. A.M. INSULIN HELD TO PREVENT HYPOGLYCEMIA. PATIENT IS NOT EATING AT THIS TIME DUE TO AGITATION.
[2025-04-26] MEDS ORDERED: dexmedeTOMIDINE 200MCG/NS 50ML IV SCH (12:00)
--- NOTE | 2025-04-26 12:37 | CONS ---
[facility] CONSULTATION NOTE Date Patient Seen: Apr 26, 2025 Time of Visit: 12:31 Supervising Physician: [ ] Reason for Consultation: [ ] Primary Care Physician: [ ] Outpatient Specialists: [ ] Inpatient Consults: [ ] PROBLEM LIST: Acute hypoxic hypercarbic respiratory failure on venous blood draw on 04/26/2025 AMS due to suspected steroid induced psychosis or hepatic encephalopathy, not POA Hyperammonemia due to cirrhosis Intractable low back pain due to spinal stenosis POA 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 POA Acute urinary tract infection due to MRSA POA Hypervolemic hyponatremia POA Chronic anemia POA Hyponatremia POA Acute kidney injury on renal insufficiency POA Hyperglycemia due to uncontrolled diabetes POA Hypocalcemia POA Cirrhotic liver with splenomegaly consistent with portal hypertension per CT POA Esophageal varices Renal parenchymal disease per CT POA Hypothyroidism POA Hypocalcemia POA Hyperlipidemia POA Hypertension POA Anxiety disorder POA Depression POA Restless leg syndrome POA Suspected obstructive sleep apnea untreated POA Morbid obesity POA HPI: Patient was a 54-year-old female with a past medical history significant for ci rrhosis, chronic anemia, depression and anxiety disorder, as well as suspected sleep apnea who was admitted on this admission by hospitalist team for hepatic encephalopathy and intractable lower back pain secondary to spinal stenosis, she was also found to have acute complicated cystitis, hyponatremia, BALTAZAR on renal insufficiency, as well as uncontrolled diabetes with hyperglycemia. Patient with acute hypoxic hypercarbic respiratory failure, pulmonary team was consulted. At the time of my evaluation patient was supposed to be on 2-3 L nasal cannula however due to the patient's severe encephalopathy at this time we are unable to maintain nasal cannula. Patient's venous blood draw for blood gases shows a CO2 level of 59, pH of 7.3. 0 two is 36.9 and bicarbonate is 29. Due to the patient's severe encephalopathy BiPAP is not an option at this time. Given the patient's severe current condition and continued encephalopathy we recommend a floor transfer to PCCU for closer monitoring and observation. Plans Upgrade patient to PCCU status Continue with nasal cannula if patient tolerates Continue medical management of hepatic encephalopathy Secondary to encephalopathy patient was uncooperative with any treatments Attempt arterial blood gas in the morning PAST MEDICAL HX: see above PAST SURGICAL HX: noncontributory SOCIAL HISTORY: No tobacco, ETOH, or illicit drug use Coded Allergies: No Known Allergies (Unverified Allergy, Unknown, 08/26/14) REVIEW OF SYSTEMS: 12 point ROS reviewed with patient. Pertinent positives mentioned above. Otherwise negative. PHYSICAL EXAM: GENERAL: alert, weak, awake oriented x 3 HEENT: EOMI, Sclera non icteric, moist mucosa NECK: Supple, no JVD, trachea midline LUNGS: Clear breath sounds bilaterally. No wheezes HEART: Regular rate and rhythm. Normal S1 and S2, without murmurs ABD: Abdomen soft, nontender. Bowel sounds present EXT: No clubbing cyanosis or edema NEURO: Alert and oriented to person, follows commands Vital Signs (last 8hr) Date Time Temp Pulse Resp B/P (MAP) Pulse Ox O2 Delivery O2 Flow Rate FiO2 04/26/25 11:09 98.2 63 18 168/61 94 Room Air 04/26/25 10:07 97 Nasal Cannula* 3 32 04/26/25 07:28 97.3 78 18 133/73 97 Nasal Cannula 3.0 04/26/25 06:41 83 16 N/Cannula Low lpm 4.0 36 LABS: Hematology Labs: Test 04/26/25 04:16 Range/Units White Blood Count 10.6 # 4.8-10.8 K/uL Red Blood Count 4.25 4.00-5.50 MIL/uL Hemoglobin 10.4 L 12.0-16.0 g/dL Hematocrit 34.3 L 36-48 % Mean Corpuscular Volume 80.7 79-99 fL Mean Corpuscular Hemoglobin 24.5 L 27.0-33.0 pg Mean Corpuscular Hemoglobin Concent 30.3 L 32.0-36.0 g/dL Red Cell Distribution Width 20.5 H 11.0-15.5 % Platelet Count 36 L 130-400 K/uL Mean Platelet Volume 7.5-10.5 fL Immature Granulocyte % (Auto) 6.8 H 0-1 % Neutrophils (%) (Auto) 81.2 H 40.0-77.0 % Lymphocytes (%) (Auto) 3.9 L 21.0-51.0 % Monocytes (%) (Auto) 7.8 3.0-13.0 % Eosinophils (%) (Auto) 0.2 0.0-8.0 % Basophils (%) (Auto) 0.1 0.0-5.0 % Neutrophils # (Auto) 8.6 H 1.8-7.7 K/uL Lymphocytes # (Auto) 0.4 L 1.0-4.8 K/uL Monocytes # (Auto) 0.8 0.1-1.0 K/uL Eosinophils # (Auto) 0.02 0.00-0.70 K/uL Basophils # (Auto) 0.01 0.00-0.20 K/uL Absolute Immature Granulocyte (auto 0.72 0-1 K/uL Segmented Neutrophils % 86 H 40-70 % Band Neutrophils % 3 H 0-2 % Monocytes % (Manual) 6 2-9 % Metamyelocytes % 3 H 0-0 % Myelocytes % 1 H 0-0 % Nucleated Red Blood Cells 2.1 H 0.0-0.19 % Differential Comment MANUAL DIFFERENTIAL Reactive Lymphocytes 1 H 0-0 % White Cell Morphology Comment See comments Platelet Morphology Comment MARKED DECREASE Red Blood Cell Morphology HYPOCHROM CELLS 1+ Erythrocyte Sedimentation Rate 55 H 0-30 MM/HR Chemistry Labs: Test 04/26/25 10:45 04/26/25 04:16 04/25/25 06:08 04/25/25 05:35 Range/Units Whole Blood Glucose 235 H 70-110 MG/DL Sodium Level 146 H 136-145 mmol/L Potassium Level 4.5 3.5-5.1 mmol/L Chloride Level 110 101-111 mmol/L Carbon Dioxide Level 30 21-32 mmol/L Blood Urea Nitrogen 51 H 7-18 mg/dL Creatinine 0.9 0.5-1.0 mg/dL Glomerular Filtration Rate Calc 76 >90 mL/min Random Glucose 167 #H 70-105 mg/dL Total Calcium 9.5 8.5-10.1 mg/dL Phosphorus Level 3.0 2.5-4.9 mg/dL Magnesium Level 2.40 1.80-2.40 mg/dL Total Bilirubin 1.8 H 0.2-1.0 mg/dL Direct Bilirubin 1.2 H 0.0-0.3 mg/dL Aspartate Amino Transf (AST/SGOT) 77 H 10-37 U/L Alanine Aminotransferase (ALT/SGPT) 63 12-78 U/L Alkaline Phosphatase 184 H 50-136 U/L Ammonia 12 # 11-32 umol/L Total Creatine Kinase 178 # 21-232 U/L C-Reactive Protein, Quantitative 83.50 H 0.5-3.0 mg/L B-Type Natriuretic Peptide 49 0-100 pg/mL Total Protein 7.4 6.0-8.3 g/dL Albumin 2.4 L 3.5-5.0 g/dL Bedside Glucose Comment Notified Nurse Hemoglobin A1c 9.2 H 4.0-6.0 % Estimated Average Glucose (eAG) 217 H 70-126 mg/dL Coagulation Labs: Test 04/26/25 04:16 Range/Units Prothrombin Time 13.3 H 9.6-11.6 SEC Prothromb Time International Ratio 1.29 H 0.85-1.15 DIAGNOSTICS / RADIOLOGY RESULTS: [ ] PLAN NEURO: Minimize central acting medications as possible. Maintain fall precautions, adequate lighting during the day PULMONARY: Supplemental 02 as needed. Maintain aspiration precautions at all times CARDIOVASCULAR: Follow hemodynamics. Vital signs per facility protocol GI & NUTRITION: Continue with nutritional support. Continue stool softeners and laxatives as needed. KIDNEYS & ELECTROLYTES: Strict monitoring of intake, output and overall fluid balance. Avoid nephrotoxic medications to the extent possible. Medications to be dosed according to renal function. Monitor electrolytes and replace as needed ENDOCRINE: Maintain blood glucose between 100-180 at all times. Hypoglycemia protocol in place INFECTIOUS DISEASE: Trend temperature, WBC and procalcitonin level Follow cultures, deescalate antibiotics as soon as possible. Panculture if new onset fever ONCOLOGY/HEMATOLOGY/COAGULATION: Monitor for s/s of bleeding Monitor hemoglobin, coagulation studies as needed SKIN: Pressure ulcer prevention per facility protocol Specialty mattress ORTHO/REHAB: Continue PT/OT Prophylaxis: Continue GI and DVT prophylaxis Code Status: Full Resuscitation Disposition: TBD Other: Total patient care time exceeds 35 minutes excluding all procedures. ERIN FRANKLIN Apr 26, 2025 12:37
[2025-04-26] MEDS: DEXTROSE 5%-WATER 1,000 ML IV SCH (13:40)
--- NOTE | 2025-04-26 14:22 | PN ---
[facility] PROGRESS NOTE Date of Service: Apr 26, 2025 Time of Service: 14:10 SUBJECTIVE: This is a 54-year-old female with past medical history of undiagnosed obstructive sleep apnea, diabetes type 2, hypertension, hyperlipidemia, hypothyroidism, restless leg syndrome, anxiety disorder,depression, lupus and severe morbid obesity who presents to the ED for complaints of severe low back p ain which started 2 weeks ago and getting worse for the past 2 days and patient reports she is taking prednisone 30mg po daily for her Lupus she said.Patient also reports she was recently seen in this ED for similar complaints and was diagnosed with acute lumbosacral myofascial strain. 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 Urinalysis consistent with urinary tract infection. CT abdomen and pelvis result revealed no acute intra-abdominal or pelvic pathology cirrhotic liver morphology with splenomegaly, consistent with portal hypertension. Bilateral renal cortical thickening may reflect renal parenchymal disease. While in the ER patient received Rocephin 1 g IV, 1 L NS bolus. We will admit patient for further medical management. 04/23/25 Patient was seen and examined at bedside. She was complaining of chest pain early in the morning but her EKG and troponin were normal. Patient says she got liver cirrhosis from taking Tylenol with codeine in the past for a long time. Remarkable labs are Na 129, K 6.4. Cl 98, BUN 44. Cr 1.2 with no anion gap. New EKG shows sinus rhythm with no tall T-waves or shortened QT interval. We will give her a dose of calcium gluconate and lokelma and recheck her labs. we will hold her iv fluids for now. Her urine anion gap is 36.0 mEq/l. Repeat potassium was 4.2 and 4.6. We will order CT lumbar spine and request nephro and cardio consults due to hyponatremia, RTA and cirrhosis with portal hypertension respectively. We will order lupus, complement , anemia panel due to her abnormal labs and h/o SLE. Hematology recommended solu medrol 125 q6. she might need hydrochloroquine upon discharge for SLE 04/24/25 Patient was seen and examined at bedside. She is complaining of widespread generalized body pain with tender points and generalized weakness, her CPK is going up, we will repeat it and start her on pregabalin. Her labs are improving. She had an EGD done last year that showed grade III varices but lost to follow up with TDS. No GI intervention as her Hb is stable. Will start her on vancomycin. Her home meds have been reconciled. She takes venlaflaxine and pramipexole for depression and restless leg syndrome respectively. Her elevated urine anion gap could be due to BALTAZAR or NSAID induced kidney injury but her creatinine is improving. Pending abdominal ultrasound and CT lumbar spine res ults. 04/25/25 Patient was seen and examined. She was observed sitting in a chair but was unable to answer questions appropriately and appeared confused. Ammonia level was elevated at 59; lactulose has been initiated at 30 mL TID. She is currently receiving vancomycin for MRSA identified in the urine. Right upper quadrant ultrasound demonstrated chronic hepatic changes with a hypoechoic lesion in the right lobe of the liver, possibly representing a complex cyst. CT of the lumbar spine revealed moderate lumbar spondylosis and diffuse osteopenia. Her platelet count is 37 and showing slow improvement. Dr. Urias, covering for Dr. Lorenzo, recommended holding solu-medrol for now. If platelet count declines tomorrow, steroids may need to be restarted. Ammonia and additional labs will be rechecked in the morning. 04/26/25 Patient was seen at bedside. Will request a transfer to the ICU due to worsening agitation and hypercapnic respiratory failure requiring BIPAP support.Will order Precedex drip for sedation to improve tolerance of non-invasive ventilation. Imaging studies including CT head and MRI spine have been ordered to evaluate for underlying neurologic causes. Patient remains hemodynamically stable; pulmonary consult is in place. She is growing gram positive cocci in clusters in her blood, will request ID input on antibiotics as she was on vancomycin previously and was started on bactrim for MRSA in urine. Her platelet count is 36 and solu-medrol is on hold. Ammonia improved from 59 to 12 REVIEW OF SYSTEMS CONSTITUTIONAL: Denies fevers, chills, or night sweats. No unintentional weight loss reported. NEUROLOGICAL: Denies headache, amaurosis fugax, motor weakness, sensory deficit, vertigo/spinning sensation, gait abnormalities, or tremors. ENT: No hearing loss, otalgia, otorrhea, rhinitis, rhinorrhea, hoarseness, or sore throat. CARDIOVASCULAR: Denies any exertional angina, dyspnea on exertion, orthopnea, paroxysmal nocturnal dyspnea, palpitations, life-threatening arrhythmias, claudication. PULMONARY: Denies any shortness of breath, cough, phlegm/sputum, hemoptysis, pleuritic chest pain. SLEEP: Denies morning headaches, daytime somnolence or napping. Denies difficulty falling asleep, staying asleep, waking from sleep. Denies knowledge of snoring. GASTROINTESTINAL: Denies any type of dysphagia to either liquids or solids. Denies nausea, vomiting, pyrosis, early satiety, abdominal pain, diarrhea, constipation, or changes in stool consistency or caliber. Denies coffee-ground emesis, hematemesis, hematochezia, or melanotic stools. GENITOURINARY: Denies frequency, urgency, nocturia, hematuria or incontinence (Storage/Irritative symptoms.) Low urinary stream, straining to void, urinary intermittency or hesitancy, splitting of the voiding stream, terminal dribbling. ENDOCRINOLOGIC: Denies polyuria, polydipsia, polyphagia or heat/cold intolerances. HEMATOLOGIC: Denies thrombophilia/previous clots, or coagulopathy/bleeding disorders. ONCOLOGIC: Denies personal history of malignancy. DERMATOLOGIC: Denies rashes or pruritus. PSYCHIATRIC: Denies any suicidal or homicidal ideation. Denies hallucinations. PHYSICAL EXAM GENERAL APPEARANCE: The patient is awake, alert, and oriented, in no acute cardiopulmonary distress. NEUROLOGICAL: Cranial nerves II-XII grossly intact. Motor is 5/5 in bilateral upper and lower extremities proximal to distal. No sensory deficits. HEENT: Face is symmetric. Pupils are equal and reactive. Extraocular movements are intact. NECK: Supple. No JVD. No thyromegaly. No submental, submandibular, pre- /postauricular, occipital or supraclavicular lymphadenopathy. CHEST: Normal chest expansion. No Telemetry. LUNGS: Absence of any rales, rhonchi or any wheezing. CARDIOVASCULAR: Regular. S1 and S2 normal. No appreciable rubs, murmurs or gallops. ABDOMEN: Soft, nontender, and nondistended. There is no rebound, voluntary guarding, or rigidity. : Deferred. No [place]co. EXTREMITIES: Non-edematous and not cyanotic. No clubbing. Good capillary refill. SKIN: No skin breakdown. Vital Signs (last 8hr) Date Time Temp Pulse Resp B/P (MAP) Pulse Ox O2 Delivery O2 Flow Rate FiO2 04/26/25 11:09 98.2 63 18 168/61 94 Room Air 04/26/25 10:07 97 Nasal Cannula* 3 32 04/26/25 07:28 97.3 78 18 133/73 97 Nasal Cannula 3.0 04/26/25 06:41 83 16 N/Cannula Low lpm 4.0 36 LABS: Laboratory: Test 04/26/25 10:45 04/26/25 04:16 04/25/25 22:22 04/25/25 16:55 Range/Units Whole Blood Glucose 235 H 70-110 MG/DL White Blood Count 10.6 # 4.8-10.8 K/uL Red Blood Count 4.25 4.00-5.50 MIL/uL Hemoglobin 10.4 L 12.0-16.0 g/dL Hematocrit 34.3 L 36-48 % Mean Corpuscular Volume 80.7 79-99 fL Mean Corpuscular Hemoglobin 24.5 L 27.0-33.0 pg Mean Corpuscular Hemoglobin Concent 30.3 L 32.0-36.0 g/dL Red Cell Distribution Width 20.5 H 11.0-15.5 % Platelet Count 36 L 130-400 K/uL Mean Platelet Volume 7.5-10.5 fL Immature Granulocyte % (Auto) 6.8 H 0-1 % Neutrophils (%) (Auto) 81.2 H 40.0-77.0 % Lymphocytes (%) (Auto) 3.9 L 21.0-51.0 % Monocytes (%) (Auto) 7.8 3.0-13.0 % Eosinophils (%) (Auto) 0.2 0.0-8.0 % Basophils (%) (Auto) 0.1 0.0-5.0 % Neutrophils # (Auto) 8.6 H 1.8-7.7 K/uL Lymphocytes # (Auto) 0.4 L 1.0-4.8 K/uL Monocytes # (Auto) 0.8 0.1-1.0 K/uL Eosinophils # (Auto) 0.02 0.00-0.70 K/uL Basophils # (Auto) 0.01 0.00-0.20 K/uL Absolute Immature Granulocyte (auto 0.72 0-1 K/uL Segmented Neutrophils % 86 H 40-70 % Band Neutrophils % 3 H 0-2 % Monocytes % (Manual) 6 2-9 % Metamyelocytes % 3 H 0-0 % Myelocytes % 1 H 0-0 % Nucleated Red Blood Cells 2.1 H 0.0-0.19 % Differential Comment MANUAL DIFFERENTIAL Reactive Lymphocytes 1 H 0-0 % White Cell Morphology Comment See comments Platelet Morphology Comment MARKED DECREASE Red Blood Cell Morphology HYPOCHROM CELLS 1+ Erythrocyte Sedimentation Rate 55 H 0-30 MM/HR Prothrombin Time 13.3 H 9.6-11.6 SEC Prothromb Time International Ratio 1.29 H 0.85-1.15 Blood Gas Specimen Type Venous Arterial Blood Oxygen Saturation 64.0 L 94.0-98.0 % Venous Blood pH 7.310 L 7.320-7.430 Venous Blood pCO2 at Patient Temp 59 *H 38-54 Venous Blood pO2 at Patient Temp 36.9 23.0-48.0 mmHg Venous Blood HCO3 29.1 H 22.0-29.0 Venous Blood Base Excess 1.3 -2.0-3.0 Blood Gas Temperature 37.0 35.5-37.0 CELSIUS Blood Gas Vent Mode NC ROOM AIR FiO2 28.0 % Blood Gas Specimen Comment LAB Sodium Level 146 H 136-145 mmol/L Potassium Level 4.5 3.5-5.1 mmol/L Chloride Level 110 101-111 mmol/L Carbon Dioxide Level 30 21-32 mmol/L Blood Urea Nitrogen 51 H 7-18 mg/dL Creatinine 0.9 0.5-1.0 mg/dL Glomerular Filtration Rate Calc 76 >90 mL/min Random Glucose 167 #H 70-105 mg/dL Total Calcium 9.5 8.5-10.1 mg/dL Phosphorus Level 3.0 2.5-4.9 mg/dL Magnesium Level 2.40 1.80-2.40 mg/dL Total Bilirubin 1.8 H 0.2-1.0 mg/dL Direct Bilirubin 1.2 H 0.0-0.3 mg/dL Aspartate Amino Transf (AST/SGOT) 77 H 10-37 U/L Alanine Aminotransferase (ALT/SGPT) 63 12-78 U/L Alkaline Phosphatase 184 H 50-136 U/L Ammonia 12 # 11-32 umol/L Total Creatine Kinase 178 # 21-232 U/L C-Reactive Protein, Quantitative 83.50 H 0.5-3.0 mg/L B-Type Natriuretic Peptide 49 0-100 pg/mL Total Protein 7.4 6.0-8.3 g/dL Albumin 2.4 L 3.5-5.0 g/dL Vancomycin Level Trough 12.8 10.0-20.0 UG/ML Influenza Type A Antigen Negative For Type A NEGATIVE Influenza Type B Antigen Negative For Type B NEGATIVE SARS-CoV-2 Antigen (Rapid) PRESUMPTIVE NEGATIVE NEGATIVE Group A Streptococcus Rapid negative NEGATIVE Test 04/25/25 06:08 04/25/25 05:35 04/24/25 22:00 Range/Units Bedside Glucose Comment Notified Nurse Hemoglobin A1c 9.2 H 4.0-6.0 % Estimated Average Glucose (eAG) 217 H 70-126 mg/dL Urine Random Creatinine 26.61 L 30-135 mg/dL Urine Random Total Protein 17.0 H 0-11.9 mg/dL Urine Opiates Screen NEGATIVE NEGATIVE Urine Barbiturates Screen NEGATIVE NEGATIVE Urine Phencyclidine Screen NEGATIVE NEGATIVE Urine Amphetamines Screen NEGATIVE NEGATIVE Urine Benzodiazepines Screen NEGATIVE NEGATIVE Urine Cocaine Screen NEGATIVE NEGATIVE Urine Marijuana (THC) Screen NEGATIVE NEGATIVE Current Medications Medications (Trade) Dose Ordered Sig/Roberth Route PRN Reason Start Time Stop Time Status Last Admin Dose Admin Acetaminophen (TYLenol 325MG TAB) 650 mg Q4H PRN PO MILD PAIN (1-3) 04/22/25 20:00 05/22/25 19:59 04/24/25 20:44 650 MG Acetaminophen (TYLenol 325MG TAB) 650 mg Q6H PRN PO TEMPERATURE GREATER THAN 101.5 04/22/25 20:00 05/22/25 19:59 04/23/25 10:02 650 MG Atorvastatin Calcium (LIPItor 20MG) 20 mg HS PO 04/24/25 21:00 05/24/25 20:59 04/25/25 21:51 20 MG Ceftriaxone Sodium 1 gm/ Sodium Chloride 50 ml @ 100 mls/hr BID IV 04/22/25 21:00 04/22/25 19:59 DC Ceftriaxone Sodium (ROCEphine 1G INJ) 1 gm BID IVPB 04/22/25 21:00 04/22/25 20:44 DC Ceftriaxone Sodium (ROCEphine 1G INJ) 1 gm BID IVPB 04/23/25 09:00 04/25/25 12:36 DC 04/25/25 09:44 1 GM Dexmedetomidine/ Sodium Chloride (PRECEdex 200MCG/ 50ML-NS) 200 mcg PROTOCOL IV 04/26/25 12:00 05/26/25 11:59 Dextrose 1,000 ml @ 75 mls/hr [id number] IV 04/26/25 12:00 05/26/25 11:59 04/26/25 13:40 75 MLS/HR Dextrose (D50w) 50 ml AD PRN IV HYPOGLYCEMIA PROTOCOL 04/22/25 20:00 05/22/25 19:59 Famotidine (Pepcid 20mg Tab) 20 mg DAILY PO 04/23/25 09:00 04/24/25 09:48 DC 04/23/25 09:33 20 MG Gabapentin (NEURontin 300 MG CAP) 300 mg BID PO 04/24/25 21:00 05/24/25 20:59 Hold 04/25/25 21:51 300 MG Glucagon (Glucagon 1mg Kit) 1 mg AD PRN IM HYPOGLYCEMIA PROTOCOL 04/22/25 20:00 05/22/25 19:59 Heparin Sodium (Porcine) (HEParin 5,000 UNIT VIAL) 5,000 unit Q8H SQ 04/25/25 09:00 04/25/25 08:40 DC Hydromorphone HCl (DiLAUDid 0.5MG INJ) 0.5 mg BIDPRN PRN IVP SEVERE PAIN (7-10) 04/25/25 19:00 04/30/25 18:59 04/25/25 22:51 0.5 MG Hydromorphone HCl (DiLAUDid 0.5MG INJ) 0.5 mg Q6H PRN IVP SEVERE PAIN (7-10) 04/23/25 14:00 04/25/25 08:25 DC 04/25/25 04:14 0.5 MG Insulin Glargine (LANtus 100 UNITS/ML 10 ML VIAL) 10 units HS SQ 04/24/25 21:00 04/24/25 16:57 DC Insulin Glargine (LANtus 100 UNITS/ML 10 ML VIAL) 10 units ONCE STAT SQ 04/24/25 10:54 04/24/25 11:00 DC 04/24/25 11:19 10 UNITS Insulin Glargine (LANtus 100 UNITS/ML 10 ML VIAL) 15 units HS SQ 04/24/25 21:00 04/24/25 17:06 DC Insulin Glargine (LANtus 100 UNITS/ML 10 ML VIAL) 30 units ONCE SQ 04/24/25 17:00 04/25/25 06:19 DC 04/24/25 18:16 30 UNITS Insulin Glargine (LANtus 100 UNITS/ML 10 ML VIAL) 50 units DAILY SQ 04/26/25 09:00 05/26/25 08:59 Insulin Human Regular (humuLIN R 100 UNIT/ML 3ML) 5 unit TIDAC SQ 04/24/25 17:00 04/24/25 17:06 DC Insulin Human Regular (humuLIN R 100 UNIT/ML 3ML) 10 unit TIDAC SQ 04/24/25 17:00 04/25/25 06:17 DC 04/25/25 06:15 10 UNIT Insulin Human Regular (humuLIN R 100 UNIT/ML 3ML) 15 unit TIDAC SQ 04/26/25 11:30 05/26/25 11:29 Insulin Human Regular (humuLIN R 100 UNIT/ML 3ML) 25 unit TIDAC SQ 04/25/25 07:30 04/26/25 07:58 DC 04/25/25 17:39 25 UNIT Insulin Human Regular (humuLIN R 100 UNIT/ML 3ML) INSULIN SLIDING SCAL... ACHS SQ 04/22/25 21:00 04/24/25 16:16 DC 04/24/25 11:18 8 UNIT Insulin Human Regular (humuLIN R 100 UNIT/ML 3ML) INSULIN SLIDING SCAL... ACHS SQ 04/24/25 16:30 04/25/25 14:09 DC 04/25/25 11:57 16 UNIT Insulin Human Regular (humuLIN R 100 UNIT/ML 3ML) INSULIN SLIDING SCAL... ACHS SQ 04/25/25 16:30 05/25/25 16:29 04/26/25 13:42 10 UNIT Lactated Ringer's 1,000 ml @ 100 mls/hr Q10H IV 04/22/25 20:00 04/23/25 10:09 DC 04/23/25 06:00 100 MLS/HR Lactulose (Constulose 20gm/ 30ml Udcup) 30 gm TID PO 04/25/25 11:00 05/25/25 10:59 04/25/25 21:52 30 GM Levothyroxine Sodium (SYNTHroid 125MCG TAB) 125 mcg DAILY@0630 PO 04/25/25 06:30 05/25/25 06:29 Magnesium Sulfate 50 ml @ 0 mls/hr PROTOCOL PRN IV OTHER [SEE ORDER COMMENTS] 04/22/25 20:00 05/22/25 19:59 Methylprednisolone Sodium Succinate (Solu-medROL 125MG) 125 mg Q6H IVP 04/23/25 08:00 05/23/25 07:59 Hold 04/25/25 09:45 125 MG Metoprolol Succinate (TopROL XL) 50 mg AM PO 04/25/25 09:00 05/25/25 08:59 04/25/25 09:45 50 MG Ondansetron HCl (zoFRAN 4MG INJ) 4 mg Q6H PRN IV NAUSEA/VOMITING 04/22/25 20:00 05/22/25 19:59 04/22/25 20:10 4 MG Pantoprazole Sodium (PROTonix 40MG INJ) 40 mg DAILY IVP 04/24/25 10:00 05/24/25 09:59 04/26/25 11:28 40 MG Potassium Chloride 100 ml @ 100 mls/hr AD PRN IV POTASSIUM PROTOCOL 04/22/25 20:00 05/22/25 19:59 Potassium Chloride (K-Dur/Klor-Con 20meq) 20 meq AD PRN PO POTASSIUM PROTOCOL 04/22/25 20:00 05/22/25 19:59 Potassium Chloride (KCl 10% Elixir 20meq/15ml) 20 meq AD PRN PO POTASSIUM PROTOCOL 04/22/25 20:00 05/22/25 19:59 Pramipexole Dihydrochloride (miraPEX 0.25MG TAB) 0.5 mg HS PO 04/24/25 21:00 05/24/25 20:59 04/25/25 21:55 0.5 MG Pregabalin ([id number]) 75 mg BID PO 04/24/25 21:00 04/24/25 14:49 DC Sodium Chloride 500 ml @ 0 mls/hr Q0M IV 04/25/25 11:00 05/25/25 10:59 Sodium Zirconium Cyclosilicate (Lokelma 10gm Powder) 10 gm TID PO 04/23/25 21:00 04/23/25 14:11 DC Tramadol HCl (UltRAM) 50 mg Q6H PRN PO MODERATE PAIN (4-6) 04/24/25 22:30 04/29/25 22:29 04/25/25 02:32 50 MG Trimethoprim/ Sulfamethoxazole (BactRIM DS) 1 tab BID PO 04/25/25 21:00 05/05/25 20:59 04/25/25 21:51 1 TAB Vancomycin HCl 250 ml @ 125 mls/hr Q12H IV 04/24/25 23:00 04/25/25 12:36 DC 04/25/25 11:43 125 MLS/HR Vancomycin HCl (Vancomycin Protocol) 1 each AD IV 04/24/25 10:30 04/25/25 12:36 DC Venlafaxine HCl (EffEXOR XR 37.5mg CAP) 37.5 mg DAILY PO 04/24/25 16:00 05/24/25 15:59 04/25/25 09:45 37.5 MG Venlafaxine HCl (EffEXOR XR 37.5mg CAP) 37.5 mg DAILY PO 04/25/25 09:00 04/24/25 14:50 DC DIAGNOSTICS / RADIOLOGY: [ ] ASSESSMENT: Acute hypoxic hypercapnic respiratory failure, not POA AMS due to suspected steroid induced psychosis or hepatic encephalopathy, not POA Hyperammonemia due to cirrhosis Intractable low back pain due to spinal stenosis POA 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 POA Acute urinary tract infection due to MRSA POA Hypervolemic hyponatremia POA Chronic anemia POA Hyponatremia POA Acute kidney injury on renal insufficiency POA Hyperglycemia due to uncontrolled diabetes POA Hypocalcemia POA Cirrhotic liver with splenomegaly consistent with portal hypertension per CT POA Esophageal varices Renal parenchymal disease per CT POA Hypothyroidism POA Hypocalcemia POA Hyperlipidemia POA Hypertension POA Anxiety disorder POA Depression POA Restless leg syndrome POA Suspected obstructive sleep apnea untreated POA Morbid obesity POA PLAN: Acute hypoxic hypercapnic respiratory failure Initiate BIPAP for ventilatory support; monitor ABGs and respiratory rate. Start dexmedetomidine drip for sedation to improve BIPAP compliance. Transfer to ICU for close respiratory and hemodynamic monitoring. Altered Mental Status due to Hepatic Encephalopathy or steroids induced psychosis Start lactulose 30 mg TID Monitor ammonia levels, mental status, and signs of worsening encephalopathy. Discontinue or hold steroids Monitor neuro status and reassess mental status regularly with steroid adjus tments. Intractable lower back pain Continue multimodal pain management: acetaminophen, topical agents, consider gabapentin if neuropathic. Currently on dilaudid CT lumbar spine ESR elevated Thrombocytopenia due to ITP Monitor CBC daily; trend platelets. Rule out DIC, splenic sequestration (cirrhosis-related), and medication-induced causes. Avoid NSAIDs, hematology consult Currently on solu medrol 125mg q6 . Acute UTI Currently on rocephin Monitor for signs of urosepsis Encourage hydration and bladder care Hyponatremia Treat underlying hyperglycemia; avoid rapid sodium correction. Monitor serum Na closely; consider fluid restriction if dilutional. Cirrhosis with portal hypertension Monitor for decompensation: encephalopathy, ascites, variceal bleeding. Consider beta sergio for variceal prophylaxis. Monitor LFTs, INR, and ammonia Her MELD- Na score is 24 points, 14-15% estimated 90 day mortality Hyperglycemia (Uncontrolled Diabetes) Start basal/bolus insulin regimen; monitor blood glucose QID. Educate on diet and insulin compliance; monitor for DKA if concern. Correct electrolytes accordingly. Chronic anemia Monitor trends; assess for iron/B12/folate deficiency. Avoid transfusion unless symptomatic or Hgb <7. GI consult We will admit patient in medical telemetry We will start on consistent carb diet We will start on LR at 100 x 2 bags We will start patient on Rocephin 1 g IV b.i.d. for empiric coverage We will start on Famotidine 20 mg p.o. daily for GI prophylaxis We will replace electrolytes as needed per protocol We will start on insulin sliding scale AC & HS with hypoglycemia protocol We will add prn medication for fever,pain,cough ,nausea and vomiting We will reconcile home meds once medlist available We will seek Hematology consultation We will request labs in am Further orders to follow depending on above results Case discussed with attending physician and came up with above treatment and plan of care. ATTESTATION BY PHYSICIAN I have seen and examined the patient. I reviewed the documentation, medical decision making, and treatment plan as noted by the resident provider above. I agree with the findings and plan of care. Cory Pimentel MD, NIHITHA MD Apr 26, 2025 14:22
--- NOTE | 2025-04-26 14:53 | PN ---
INFECTIOUS DISEASE PROGRESS NOTE Date of Service: Apr 26, 2025 SUBJECTIVE: This 54 year old female patient is being seen today at bedside. She is awake, alert and disoriented. She has had no fever or chills. No nausea or vomiting. She is in no respiratory distress at this time. Patient is growing Gram- positive cocci, preliminary. Adjustments of antibiotics will be made. We continue to follow patient closely. PHYSICAL EXAM EYES: Anicteric. Pupils equal and reactive. HENT: No oral thrush seen, moist Oral mucosa NECK: Supple, no JVD or thyromegaly. LUNGS: Good air entry. No rales, no rhonchi. CARDIOVASCULAR: S1, S2 regular. No murmur heard. ABDOMEN: Soft, non tender, bowel sounds present, no organomegaly SKIN: No rashes, no swelling. LYMPHATICS: No peripheral lymphadenopathy MUSCULOSKELETAL: No joint swelling, erythema or tenderness. EXTREMITIES: No cyanosis or clubbing BACK: No deformity, no pressure ulcer. GENITOURINARY: No dysuria or hematuria Vital Sign (Last 12 Hours) 04/26/25 04/26/25 04/26/25 04/26/25 03:27 06:41 07:28 10:07 Temp 97.7 97.3 Pulse 76 83 78 Resp 18 16 18 B/P (MAP) 122/93 133/73 Pulse Ox 91 97 97 O2 Delivery Nasal Cannula N/Cannula Low lpm Nasal Cannula Nasal Cannula* O2 Flow Rate 4.0 3.0 3 FiO2 36 32 04/26/25 11:09 Temp 98.2 Pulse 63 Resp 18 B/P (MAP) 168/61 Pulse Ox 94 O2 Delivery Room Air Intake & Output (last 24hrs) 04/25/25 04/25/25 04/26/25 15:00 23:00 07:00 Intake Total 0 ml 0 ml Output Total 500 ml Balance -500 ml 0 ml LABS: Laboratory: Test 04/26/25 10:45 04/26/25 04:16 04/25/25 22:22 04/25/25 16:55 Range/Units Whole Blood Glucose 235 H 70-110 MG/DL White Blood Count 10.6 # 4.8-10.8 K/uL Red Blood Count 4.25 4.00-5.50 MIL/uL Hemoglobin 10.4 L 12.0-16.0 g/dL Hematocrit 34.3 L 36-48 % Mean Corpuscular Volume 80.7 79-99 fL Mean Corpuscular Hemoglobin 24.5 L 27.0-33.0 pg Mean Corpuscular Hemoglobin Concent 30.3 L 32.0-36.0 g/dL Red Cell Distribution Width 20.5 H 11.0-15.5 % Platelet Count 36 L 130-400 K/uL Mean Platelet Volume 7.5-10.5 fL Immature Granulocyte % (Auto) 6.8 H 0-1 % Neutrophils (%) (Auto) 81.2 H 40.0-77.0 % Lymphocytes (%) (Auto) 3.9 L 21.0-51.0 % Monocytes (%) (Auto) 7.8 3.0-13.0 % Eosinophils (%) (Auto) 0.2 0.0-8.0 % Basophils (%) (Auto) 0.1 0.0-5.0 % Neutrophils # (Auto) 8.6 H 1.8-7.7 K/uL Lymphocytes # (Auto) 0.4 L 1.0-4.8 K/uL Monocytes # (Auto) 0.8 0.1-1.0 K/uL Eosinophils # (Auto) 0.02 0.00-0.70 K/uL Basophils # (Auto) 0.01 0.00-0.20 K/uL Absolute Immature Granulocyte (auto 0.72 0-1 K/uL Segmented Neutrophils % 86 H 40-70 % Band Neutrophils % 3 H 0-2 % Monocytes % (Manual) 6 2-9 % Metamyelocytes % 3 H 0-0 % Myelocytes % 1 H 0-0 % Nucleated Red Blood Cells 2.1 H 0.0-0.19 % Differential Comment MANUAL DIFFERENTIAL Reactive Lymphocytes 1 H 0-0 % White Cell Morphology Comment See comments Platelet Morphology Comment MARKED DECREASE Red Blood Cell Morphology HYPOCHROM CELLS 1+ Erythrocyte Sedimentation Rate 55 H 0-30 MM/HR Prothrombin Time 13.3 H 9.6-11.6 SEC Prothromb Time International Ratio 1.29 H 0.85-1.15 Blood Gas Specimen Type Venous Arterial Blood Oxygen Saturation 64.0 L 94.0-98.0 % Venous Blood pH 7.310 L 7.320-7.430 Venous Blood pCO2 at Patient Temp 59 *H 38-54 Venous Blood pO2 at Patient Temp 36.9 23.0-48.0 mmHg Venous Blood HCO3 29.1 H 22.0-29.0 Venous Blood Base Excess 1.3 -2.0-3.0 Blood Gas Temperature 37.0 35.5-37.0 CELSIUS Blood Gas Vent Mode NC ROOM AIR FiO2 28.0 % Blood Gas Specimen Comment LAB Sodium Level 146 H 136-145 mmol/L Potassium Level 4.5 3.5-5.1 mmol/L Chloride Level 110 101-111 mmol/L Carbon Dioxide Level 30 21-32 mmol/L Blood Urea Nitrogen 51 H 7-18 mg/dL Creatinine 0.9 0.5-1.0 mg/dL Glomerular Filtration Rate Calc 76 >90 mL/min Random Glucose 167 #H 70-105 mg/dL Total Calcium 9.5 8.5-10.1 mg/dL Phosphorus Level 3.0 2.5-4.9 mg/dL Magnesium Level 2.40 1.80-2.40 mg/dL Total Bilirubin 1.8 H 0.2-1.0 mg/dL Direct Bilirubin 1.2 H 0.0-0.3 mg/dL Aspartate Amino Transf (AST/SGOT) 77 H 10-37 U/L Alanine Aminotransferase (ALT/SGPT) 63 12-78 U/L Alkaline Phosphatase 184 H 50-136 U/L Ammonia 12 # 11-32 umol/L Total Creatine Kinase 178 # 21-232 U/L C-Reactive Protein, Quantitative 83.50 H 0.5-3.0 mg/L B-Type Natriuretic Peptide 49 0-100 pg/mL Total Protein 7.4 6.0-8.3 g/dL Albumin 2.4 L 3.5-5.0 g/dL Vancomycin Level Trough 12.8 10.0-20.0 UG/ML Influenza Type A Antigen Negative For Type A NEGATIVE Influenza Type B Antigen Negative For Type B NEGATIVE SARS-CoV-2 Antigen (Rapid) PRESUMPTIVE NEGATIVE NEGATIVE Group A Streptococcus Rapid negative NEGATIVE Test 04/25/25 06:08 04/25/25 05:35 04/24/25 22:00 Range/Units Bedside Glucose Comment Notified Nurse Hemoglobin A1c 9.2 H 4.0-6.0 % Estimated Average Glucose (eAG) 217 H 70-126 mg/dL Urine Random Creatinine 26.61 L 30-135 mg/dL Urine Random Total Protein 17.0 H 0-11.9 mg/dL Urine Opiates Screen NEGATIVE NEGATIVE Urine Barbiturates Screen NEGATIVE NEGATIVE Urine Phencyclidine Screen NEGATIVE NEGATIVE Urine Amphetamines Screen NEGATIVE NEGATIVE Urine Benzodiazepines Screen NEGATIVE NEGATIVE Urine Cocaine Screen NEGATIVE NEGATIVE Urine Marijuana (THC) Screen NEGATIVE NEGATIVE DIAGNOSTICS / RADIOLOGY: PATIENT: LUCÍA CATALAN ACCT: [id number] LOC: [facility] U: [id number] AGE/SX: 54/F ROOM: 309 RE04/22/[address]: VIKRAM CONNER MD : 1970 BED: 1 DIS: STATUS: ADM IN TLOC: SPEC: [id number] EVERARDO: 04/25/25 STATUS: RES REQ: [id number] RECD: 04/25/[address] [facility] DR: EDNA SOARES MD SOURCE: BLOOD ENTR: 04/25/25-[address]: CARLENE CAMARILLO MD SPDESC: VIKRAM CONNER MD, JORGE H MD GALAN, ANTHONY R MD HASSAN, SYED A MD SHENKENBERG, TODD D MD ORDERED: BLOOD CULTURE COMMENTS: What is the Source? BLOOD Procedure Result Mini Date-Time BLOOD CULT Preliminary 04/26/25-1011 GRAM STAIN: GRAM POSITIVE COCCI IN CLUSTERS 2 OF 2 SET AEROBIC BOTTLES CALLED TO MAYUR FERNANDEZ 04/26/25 AT 1011 BY [facility]. CULTURE REPORT: IDENTIFICATION AND SUSCEPTIBILITIES TO FOLLOW Sent to Reference Lab. SEE [id number] FOR CULTURE RESULTS ASSESSMENT: * UTI. * Hydronephrosis. * gram positive bacteremia, preliminary * Non-ketotic hyperglycemia. * Morbid obesity. * Back pain. * Thrombocytopenia. * Liver cirrhosis. * Hypothyroidism. PLAN: * Continue Synthroid. * start vancomycin as per pharmacy protocol * Obtain blood culture. * monitor renal function * discontinue Bactrim. * Obtain MRI of the lumbar spine. * Continue pain management. * Continue antidiabetic. * The patient will be followed up closely. This case has been discussed with my supervising physician BRANDON Frankel [facility] Apr 26, 2025 14:53
[2025-04-26] MEDS ORDERED: VANCOMYCIN PROTOCOL PER PHARMACY IV SCH (15:00)
--- NOTE | 2025-04-26 15:10 | NUR ---
ATTEMPTED TO CALL DONNA GOODMAN, DAUGHTER OF PATIENT, TO INFORM HER OF PATIENT'S TRANSFER TO ICU. NO RESPONSE AT THIS TIME DESPITE 3 ATTEMPTS TO CALL. WILL ATTEMPT AGAIN AT A LATER TIME.
--- NOTE | 2025-04-26 15:13 | NUR ---
ATTEMPTED TO CALL ONCE AGAIN, LEFT VOICEMAIL REGARDING PATIENT.
[2025-04-26] MEDS ORDERED: COMPOUND IV REFRIGERATED 1 EACH IVSOLN MISC PRN (15:30)
--- NOTE | 2025-04-26 16:21 | PN ---
HISTORY OF PRESENT ILLNESS: This is a 54-year-old female with a known history of ITP, newly diagnosed with cirrhosis of the liver, portal hypertension, and thrombocytopenia. She had bruising when she was admitted to the hospital with a platelet count of 24,000. She was started on IV Solu-Medrol 125 mg q.6h. She has received 7 doses of Solu-Medrol. Repeat blood count shows platelet count slightly improved to 37,000. No active bleeding. My assessment was complicating to cirrhosis and portal hypertension with splenomegaly. Likely, her platelet count will not respond more to steroids. We would like to review her CBC again prior to making any further decision. This afternoon, the patient appears to be quite agitated, confused, and she is being evaluated by the medicine service. Plan is to have her go to the ICU where she could be sedated and do further investigation including LP and scan of the brain. The patient is moving both her upper and lower extremities well. Nursing service has mentioned there are no bleeding episodes. REVIEW OF SYSTEMS: Unobtainable. PHYSICAL EXAMINATION: GENERAL: This is an obese lady not in any distress. VITAL SIGNS: Temperature 98.2, pulse 63, respirations 18, blood pressure 168/61. Examination is very limited. The patient is quite agitated. RESULTS REVIEW: WBC 10.6, hemoglobin 10.4, platelet count 36,000. Blood sugar level 235, BUN 51, creatinine 0.9. LFTs: T-bili slightly elevated at 1.8, AST 77, ALT 63. C-reactive protein elevated at 83. Haptoglobin 39. ASSESSMENT AND PLAN: * Thrombocytopenia. The patient has a history of ITP, received 7 doses of Solu-Medrol as above. Platelets stable at 36,000. No active bleeding reported. We will continue to monitor at this time. * Cirrhosis of liver, portal hypertension, unclear etiology. Will benefit from GI evaluation. * Significant confusion, agitation, unclear etiology. The patient is being evaluated to be transferred to intensive care unit where she would need to be sedated and then further investigation including LP and scan of the brain has been planned. I agree with it. The patient is able to move both of her upper and lower extremities, but she is quite agitated. PERIPHERAL SMEAR REVIEW: I have reviewed her blood smear today. From today's sample, there is no schistocyte noted on her peripheral smear. Platelets are low. Very few large platelets noted. WBC unremarkable. Continue all supportive care. TID: [id number] RECEIPT: [id number]
[2025-04-26] MEDS: VANCOMYCIN 1.5 GM/250 ML BAG 250 ML IV SCH (17:20)
--- NOTE | 2025-04-26 18:21 | PN ---
endocrinology progress note Date of Service: Apr 26, 2025 subjective: glucose runs improving now and off iv steroids now hba1c 9.2, home regimen: lantus 30 units daily and humalog 10 units tid before meals. patient glucose are elevated due to iv steroid MTP. PAST MEDICAL HISTORY: [undiagnosed obstructive sleep apnea, diabetes type 2, hypertension, hyperlipidemia, hypothyroidism, restless leg syndrome, anxiety disorder,depression, lupus and severe morbid obesity ] PAST SURGICAL HISTORY: [ Cholecystectomy, tubal ligation] PAST SOCIAL HISTORY: [ Patient lives with . Patient denies alcohol tobacco and recreational drug use] FAMILY HISTORY: [ Hypertension, diabetes, cardiovascular disease and Alzheimer's disease ] Coded Allergies: No Known Allergies (Unverified Allergy, Unknown, 08/26/14) ASSESSMENT: hyperglycemia due to uncontrolled dm-2 and off to iv steroids now. glucose are improving now. hba1c 9.2, home regimen: lantus 30 units daily and humalog 10 units tid before meals. Intractable low back pain POA Acute thrombocytopenia POA Acute urinary tract infection POA Chronic anemia POA Hyponatremia POA Acute kidney injury on renal insufficiency POA Hypocalcemia POA Cirrhotic liver with splenomegaly consistent with portal hypertension per CT POA Renal parenchymal disease per CT POA Hypothyroidism POA Hyperlipidemia POA Hypertension POA Anxiety disorder POA Depression POA Restless leg syndrome POA Suspected obstructive sleep apnea untreated POA Morbid obesity POA PLAN: decrease lantus to 50 units daily hyperglycemia. decrease regular insulin to 15 units qac before meals continue high dose ssi monitor glucose qx6 hourly Vitals/Labs Vital Signs Date Time Temp Pulse Resp B/P (MAP) Pulse Ox O2 Delivery O2 Flow Rate FiO2 04/26/25 18:00 48 12 117/66 (83) 98 30 04/26/25 16:00 97.9 04/26/25 11:09 Room Air 04/26/25 10:07 3 Laboratory Tests 04/26/25 04:16 Medications Current Medications Sodium Chloride 1,000 ml @ 0 mls/hr ONCE ONCE IV Last administered on 04/22/25at 17:27; Start 04/22/25 at 17:00; Stop 04/22/25 at 17:01; Status DC Ceftriaxone Sodium 1 gm ONCE ONCE IVPB Last administered on 04/22/25at 19:43; Start 04/22/25 at 19:00; Stop 04/22/25 at 19:01; Status DC Acetaminophen 650 mg Q6H PRN PO Last administered on 04/23/25at 10:02; Start 04/22/25 at 20:00; Stop 05/22/25 at 19:59 Acetaminophen 650 mg Q4H PRN PO Last administered on 04/24/25at 20:44; Start 04/22/25 at 20:00; Stop 05/22/25 at 19:59 Ondansetron HCl 4 mg Q6H PRN IV Last administered on 04/22/25at 20:10; Start 04/22/25 at 20:00; Stop 05/22/25 at 19:59 Famotidine 20 mg DAILY PO Last administered on 04/23/25at 09:33; Start 04/23/25 at 09:00; Stop 04/24/25 at 09:48; Status DC Ceftriaxone Sodium 1 gm/ Sodium Chloride 50 ml @ 100 mls/hr BID IV; Start 04/22/25 at 21:00; Stop 04/22/25 at 19:59; Status DC Lactated Ringer's 1,000 ml @ 100 mls/hr Q10H IV Last administered on 04/23/25at 06:00; Start 04/22/25 at 20:00; Stop 04/23/25 at 10:09; Status DC Insulin Human Regular INSULIN SLIDING SCAL... ACHS SQ Last administered on 04/24/25at 11:18; Start 04/22/25 at 21:00; Stop 04/24/25 at 16:16; Status DC Dextrose 50 ml AD PRN IV; Start 04/22/25 at 20:00; Stop 05/22/25 at 19:59 Glucagon 1 mg AD PRN IM; Start 04/22/25 at 20:00; Stop 05/22/25 at 19:59 Magnesium Sulfate 50 ml @ 0 mls/hr PROTOCOL PRN IV; Start 04/22/25 at 20:00; Stop 05/22/25 at 19:59 Potassium Chloride 100 ml @ 100 mls/hr AD PRN IV; Start 04/22/25 at 20:00; Stop 05/22/25 at 19:59 Potassium Chloride 20 meq AD PRN PO; Start 04/22/25 at 20:00; Stop 05/22/25 at 19:59 Potassium Chloride 20 meq AD PRN PO; Start 04/22/25 at 20:00; Stop 05/22/25 at 19:59 Ceftriaxone Sodium 1 gm BID IVPB; Start 04/22/25 at 21:00; Stop 04/22/25 at 20:44; Status DC Morphine Sulfate 4 mg ONCE ONCE IVP Last administered on 04/22/25at 20:11; Start 04/22/25 at 20:30; Stop 04/22/25 at 20:31; Status DC Lidocaine 1 each ONCE ONCE TP Last administered on 04/22/25at 21:14; Start 04/22/25 at 21:00; Stop 04/22/25 at 21:01; Status DC Ceftriaxone Sodium 1 gm BID IVPB Last administered on 04/25/25at 09:44; Start 04/23/25 at 09:00; Stop 04/25/25 at 12:36; Status DC Methylprednisolone Sodium Succinate 125 mg Q6H IVP Last administered on 04/25/25at 09:45; Start 04/23/25 at 08:00; Stop 05/23/25 at 07:59; Status Hold Albuterol Sulfate 1.25 ONCE ONCE IH Last administered on 04/23/25at 09:40; Start 04/23/25 at 09:30; Stop 04/23/25 at 09:31; Status DC Calcium Gluconate 1 gm ONCE ONCE IV Last administered on 04/23/25at 10:55; Start 04/23/25 at 10:30; Stop 04/23/25 at 10:31; Status DC Sodium Chloride 50 ml @ 0 mls/hr ONCE ONCE IV Last administered on 04/23/25at 11:00; Start 04/23/25 at 11:00; Stop 04/23/25 at 11:01; Status DC Sodium Zirconium Cyclosilicate 10 gm ONCE ONCE PO Last administered on 04/23/25at 14:14; Start 04/23/25 at 14:00; Stop 04/23/25 at 16:08; Status DC Hydromorphone HCl 0.5 mg Q6H PRN IVP Last administered on 04/25/25at 04:14; Start 04/23/25 at 14:00; Stop 04/25/25 at 08:25; Status DC Sodium Zirconium Cyclosilicate 10 gm TID PO; Start 04/23/25 at 21:00; Stop 04/23/25 at 14:11; Status DC Pantoprazole Sodium 40 mg DAILY IVP Last administered on 04/26/25at 11:28; Start 04/24/25 at 10:00; Stop 05/24/25 at 09:59 Pregabalin 75 mg BID PO; Start 04/24/25 at 21:00; Stop 04/24/25 at 14:49; Status DC Vancomycin HCl 1 each AD IV; Start 04/24/25 at 10:30; Stop 04/25/25 at 12:36; Status DC Vancomycin HCl 500 ml @ 250 mls/hr ONCE ONCE IV Last administered on 04/24/25at 12:46; Start 04/24/25 at 11:00; Stop 04/24/25 at 12:59; Status DC Vancomycin HCl 250 ml @ 125 mls/hr Q12H IV Last administered on 04/25/25at 11:43; Start 04/24/25 at 23:00; Stop 04/25/25 at 12:36; Status DC Insulin Glargine 10 units HS SQ; Start 04/24/25 at 21:00; Stop 04/24/25 at 16:57; Status DC Insulin Glargine 10 units ONCE STAT SQ Last administered on 04/24/25at 11:19; Start 04/24/25 at 10:54; Stop 04/24/25 at 11:00; Status DC Atorvastatin Calcium 20 mg HS PO Last administered on 04/25/25at 21:51; Start 04/24/25 at 21:00; Stop 05/24/25 at 20:59 Gabapentin 300 mg BID PO Last administered on 04/25/25at 21:51; Start 04/24/25 at 21:00; Stop 05/24/25 at 20:59; Status Hold Levothyroxine Sodium 125 mcg DAILY@0630 PO; Start 04/25/25 at 06:30; Stop 05/25/25 at 06:29 Metoprolol Succinate 50 mg AM PO Last administered on 04/25/25at 09:45; Start 04/25/25 at 09:00; Stop 05/25/25 at 08:59 Venlafaxine HCl 37.5 mg DAILY PO; Start 04/25/25 at 09:00; Stop 04/24/25 at 14:50; Status DC Pramipexole Dihydrochloride 0.5 mg HS PO Last administered on 04/25/25at 21:55; Start 04/24/25 at 21:00; Stop 05/24/25 at 20:59 Venlafaxine HCl 37.5 mg DAILY PO Last administered on 04/25/25at 09:45; Start 04/24/25 at 16:00; Stop 05/24/25 at 15:59 Insulin Human Regular INSULIN SLIDING SCAL... ACHS SQ Last administered on 04/25/25at 11:57; Start 04/24/25 at 16:30; Stop 04/25/25 at 14:09; Status DC Insulin Glargine 15 units HS SQ; Start 04/24/25 at 21:00; Stop 04/24/25 at 17:06; Status DC Insulin Human Regular 5 unit TIDAC SQ; Start 04/24/25 at 17:00; Stop 04/24/25 at 17:06; Status DC Insulin Glargine 30 units ONCE SQ Last administered on 04/24/25at 18:16; Start 04/24/25 at 17:00; Stop 04/25/25 at 06:19; Status DC Insulin Human Regular 10 unit TIDAC SQ Last administered on 04/25/25at 06:15; Start 04/24/25 at 17:00; Stop 04/25/25 at 06:17; Status DC Tramadol HCl 50 mg Q6H PRN PO Last administered on 04/25/25at 02:32; Start 04/24/25 at 22:30; Stop 04/29/25 at 22:29 Insulin Human Regular 25 unit TIDAC SQ Last administered on 04/25/25at 17:39; Start 04/25/25 at 07:30; Stop 04/26/25 at 07:58; Status DC Insulin Glargine 70 units ONCE ONCE SQ Last administered on 04/25/25at 06:27; Start 04/25/25 at 06:30; Stop 04/25/25 at 06:31; Status DC Hydromorphone HCl 0.5 mg BIDPRN PRN IVP Last administered on 04/25/25at 22:51; Start 04/25/25 at 19:00; Stop 04/30/25 at 18:59 Heparin Sodium (Porcine) 5,000 unit Q8H SQ; Start 04/25/25 at 09:00; Stop 04/25/25 at 08:40; Status DC Lactulose 30 gm TID PO Last administered on 04/25/25at 21:52; Start 04/25/25 at 11:00; Stop 05/25/25 at 10:59 Sodium Chloride 500 ml @ 0 mls/hr Q0M IV; Start 04/25/25 at 11:00; Stop 05/25/25 at 10:59 Trimethoprim/ Sulfamethoxazole 1 tab BID PO Last administered on 04/25/25at 21:51; Start 04/25/25 at 21:00; Stop 04/26/25 at 14:50; Status DC Insulin Human Regular INSULIN SLIDING SCAL... ACHS SQ Last administered on 04/26/25at 17:40; Start 04/25/25 at 16:30; Stop 05/25/25 at 16:29 Diazepam 10 mg ONCE ONCE IM; Start 04/25/25 at 15:00; Stop 04/25/25 at 15:01; Status DC Lactulose 200 gm ONCE ONCE VA Last administered on 04/25/25at 17:30; Start 04/25/25 at 16:30; Stop 04/25/25 at 16:31; Status DC Lorazepam 0.5 mg ONCE ONCE PO Last administered on 04/25/25at 19:07; Start 04/25/25 at 19:00; Stop 04/25/25 at 19:01; Status DC Haloperidol Lactate 1 mg ONCE ONCE IM Last administered on 04/26/25at 05:17; Start 04/26/25 at 05:00; Stop 04/26/25 at 05:02; Status DC Insulin Human Regular 15 unit TIDAC SQ; Start 04/26/25 at 11:30; Stop 05/26/25 at 11:29 Insulin Glargine 50 units DAILY SQ; Start 04/26/25 at 09:00; Stop 05/26/25 at 08:59 Dextrose 1,000 ml @ 75 mls/hr [id number] IV Last administered on 04/26/25at 13:40; Start 04/26/25 at 12:00; Stop 05/26/25 at 11:59 Dexmedetomidine/ Sodium Chloride 200 mcg PROTOCOL IV; Start 04/26/25 at 12:00; Stop 04/26/25 at 14:54; Status DC Dexmedetomidine/ Sodium Chloride 400 mcg STK-MED ONCE IV; Start 04/26/25 at 14:49; Stop 04/26/25 at 14:50; Status DC Vancomycin HCl 1 each AD IV; Start 04/26/25 at 15:00; Stop 05/10/25 at 14:59 Dexmedetomidine/ Sodium Chloride 400 mcg PROTOCOL STAT IV Last administered on 04/26/25at 15:18; Start 04/26/25 at 14:53; Stop 04/26/25 at 14:58; Status DC Vancomycin HCl 250 ml @ 125 mls/hr Q12H IV Last administered on 04/26/25at 17:20; Start 04/26/25 at 15:30; Stop 05/06/25 at 15:29 PARAG VANG MD Apr 26, 2025 18:21
[2025-04-26 18:42] LABS: ABG BASE EXCESS 3.6 mmol/L (-2.0-3.0); ABG HCO3 28.4 mmol/L (21.0-28.0); ABG OXYGEN SATURATION 97.8 % (94.0-98.0); ABG PCO2 44 mmHg (32-45); ABG PH 7.426 (7.350-7.450); CARBON MONOXIDE 0.4 % (0.5-1.5); DEVICE COMMENT LR RN RICHARD; PO2, ARTERIAL BG 108.2 mmHg (83.0-108.0); TEMPERATURE, CELSIUS BG 37.0 CELSIUS (35.5-37.0); VENT MODE, BG BIPAP 12,6 (ROOM AIR)
--- NOTE | 2025-04-26 20:08 | HMCIMG ---
EXAM: CR Chest, 1 View. CLINICAL HISTORY: low O2 sat COMPARISON: Radiograph dated October 20, 2024 FINDINGS: LUNGS: The lungs show no infiltrate or other acute finding. PLEURAL SPACES: No pleural effusion or pneumothorax. MEDIASTINUM: Cardiac size and mediastinal contours within normal limits. BONES: No aggressive appearing osseous lesion seen. IMPRESSION: No acute cardiopulmonary pathology is evident. /[place]
--- NOTE | 2025-04-26 20:14 | NUR ---
CT SCAN TOOK PATIENT TO CT SCAN PRECEDEX INCREASED DUE TO PATIENT THRASHING AND SCREAMING.
[2025-04-26 23:08] LABS: DRVVT-LUPUS ANTICOAGULANT 52.1 sec (0.0-47.0)
[2025-04-27] VITALS (95 sets, daily range): BP systolic 112–153; BP diastolic 42–84; PULSE 41–85; RESP 8–24; TEMP 97.3–99.2; O2SAT 96–100
[2025-04-27 03:44] LABS: ABG BASE EXCESS 1.5 mmol/L (-2.0-3.0); ABG HCO3 25.8 mmol/L (21.0-28.0); ABG OXYGEN SATURATION 99.1 % (94.0-98.0); ABG PCO2 40 mmHg (32-45); ABG PH 7.430 (7.350-7.450); PO2, ARTERIAL BG 160.4 mmHg (83.0-108.0); TEMPERATURE, CELSIUS BG 37.0 CELSIUS (35.5-37.0); VENT MODE, BG BIPAP,12,6 (ROOM AIR)
[2025-04-27 04:58] LABS: IMMATURE GRANULOCYTE ABSOLUTE 0.31 K/uL (0-1); NUCLEATED RED BLOOD CELLS 0.6 % (0.0-0.19); PLATELET COUNT (AUTO) 28 K/uL (130-400); RED BLOOD CELL COUNT(AUTO) 3.86 MIL/uL (4.00-5.50); RED CELL DISTRIBUTION WIDTH 20.9 % (11.0-15.5); WHITE BLOOD COUNT (AUTO) 5.3 K/uL (4.8-10.8)
[2025-04-27 05:15] LABS: ASPARTATE AMINOTRANSFERASE 58.0 U/L (10-37); CREATININE 0.9 mg/dL (0.5-1.0); GLOMERULAR FILTR. RATE CALC 76.0 mL/min (>90); GLUCOSE,RANDOM 380.0 mg/dL (70-105); PHOSPHORUS 2.6 mg/dL (2.5-4.9); SODIUM SERUM 147.0 mmol/L (136-145); TOTAL PROTEIN, SERUM 6.7 g/dL (6.0-8.3); UREA NITROGEN, BLOOD 46.0 mg/dL (7-18)
--- NOTE | 2025-04-27 08:04 | HMCIMG ---
EXAM: Non-contrast CT examination of the Brain CLINICAL HISTORY: Altered mental status. TECHNIQUE: Thin collimated axial CT images of the brain were obtained with sagittal and coronal reformatted images also submitted. CT scan done according to ALARA (As Low as Reasonably Achievable). CONTRAST USED: None. COMPARISON: CT dated 03/31/23. FINDINGS: No acute intracranial abnormality is present. No acute cortical infarction, hemorrhage, mass or mass effect. No hydrocephalus or abnormal extra-axial fluid collections. The posterior fossa is unremarkable. The skull base and calvarium are intact. The included portions of the paranasal sinuses and mastoid air cells are clear. IMPRESSION: No acute intracranial abnormality is present. /[place]
--- NOTE | 2025-04-27 10:09 | PN ---
NEPHROLOGY PROGRESS NOTE Date/Time Patient Seen: Apr 27, 2025 SUBJECTIVE: This is 54-year-old female with history of undiagnosed obstructive sleep apnea,diabetes type 2, hypertension, hyperlipidemia, hypothyroidism, restless leg syndrome, anxiety disorder,depression, lupus and severe morbid obesity The patient presented to the hospital with complaints of lower back pain. The patient had been taking prednisone as an outpatient. In the Emergency Room, the patient was found to have significant renal dysfunction with an elevated BUN and creatinine as well as significant hyperkalemia. The patient was treated medically for the hyperkalemia. Renal function did improve with hydration and she is being seen in consultation for all of the above. Creatinine did improve with the IV hydration. The patient's hyperkalemia has resolved and we will continue to follow the chemistries closely. The patient remains on Rocephin for urinary tract infection. Renal function is improving Electrolytes are stable She was seen in the ICU, currently on BiPAP REVIEW OF SYSTEMS: Unable to obtain due to patient's status Vital Signs (last 8hr) Date Time Temp Pulse Resp B/P (MAP) Pulse Ox O2 Delivery O2 Flow Rate FiO2 04/27/25 08:45 49 8 140/49 (79) 95 04/27/25 08:30 46 13 149/66 (93) 98 04/27/25 08:15 99 Bi-PAP+ 30 04/27/25 08:15 45 12 125/51 (75) 96 04/27/25 08:00 97.5 46 12 130/57 (81) 97 04/27/25 08:00 97.5 04/27/25 07:45 48 12 147/50 (82) 95 04/27/25 07:30 45 13 130/58 (82) 96 04/27/25 07:15 44 13 137/54 (81) 96 04/27/25 07:00 47 13 134/60 (84) 96 04/27/25 06:45 45 14 30 04/27/25 06:12 46 14 134/60 (84) 94 04/27/25 05:58 54 10 139/84 (102) 99 04/27/25 05:42 48 14 123/55 (77) 93 04/27/25 05:27 46 13 131/58 (82) 93 04/27/25 05:12 57 17 153/84 (107) 91 04/27/25 05:06 85 22 122/76 (91) 98 04/27/25 04:12 41 13 124/68 (86) 94 04/27/25 04:00 96 Bi-PAP+ 30 04/27/25 04:00 97.3 04/27/25 03:52 48 18 30 04/27/25 03:42 43 12 129/69 (89) 94 04/27/25 03:27 46 13 127/67 (87) 94 04/27/25 03:12 43 13 128/62 (84) 96 04/27/25 02:57 44 12 127/66 (86) 96 04/27/25 02:42 44 13 122/47 (72) 95 04/27/25 02:27 44 13 122/61 (81) 96 04/27/25 02:13 45 13 121/60 (80) 97 PHYSICAL EXAM: GENERAL: Alert and oriented x 3. No acute distress. Well-nourished. EYES: EOMI. Anicteric. HENT: Moist mucous membranes. No scleral icterus. No cervical lymphadenopathy. LUNGS: Clear to auscultation bilaterally. No accessory muscle use. CARDIOVASCULAR: Regular rate and rhythm. No murmur. No JVD. ABDOMEN: Soft, non-tender and non-distended. No palpable masses. EXTREMITIES: No edema. Non-tender. SKIN: No rashes or lesions. Warm. NEUROLOGIC: No focal neurological deficits. CN II-XII grossly intact, but not individually tested. PSYCHIATRIC: Cooperative. Appropriate mood and affect. Current Medications Medications (Trade) Dose Ordered Sig/Roberth Route PRN Reason Start Time Stop Time Status Last Admin Dose Admin Acetaminophen (TYLenol 325MG TAB) 650 mg Q4H PRN PO MILD PAIN (1-3) 04/22/25 20:00 05/22/25 19:59 04/24/25 20:44 650 MG Acetaminophen (TYLenol 325MG TAB) 650 mg Q6H PRN PO TEMPERATURE GREATER THAN 101.5 04/22/25 20:00 05/22/25 19:59 04/23/25 10:02 650 MG Atorvastatin Calcium (LIPItor 20MG) 20 mg HS PO 04/24/25 21:00 05/24/25 20:59 04/24/25 19:57 20 MG Ceftriaxone Sodium 1 gm/ Sodium Chloride 50 ml @ 100 mls/hr BID IV 04/22/25 21:00 04/22/25 19:59 DC Ceftriaxone Sodium (ROCEphine 1G INJ) 1 gm BID IVPB 04/22/25 21:00 04/22/25 20:44 DC Ceftriaxone Sodium (ROCEphine 1G INJ) 1 gm BID IVPB 04/23/25 09:00 04/25/25 12:36 DC 04/25/25 09:44 1 GM Dextrose (D50w) 50 ml AD PRN IV HYPOGLYCEMIA PROTOCOL 04/22/25 20:00 05/22/25 19:59 Famotidine (Pepcid 20mg Tab) 20 mg DAILY PO 04/23/25 09:00 04/24/25 09:48 DC 04/23/25 09:33 20 MG Gabapentin (NEURontin 300 MG CAP) 300 mg BID PO 04/24/25 21:00 05/24/25 20:59 04/25/25 09:46 300 MG Glucagon (Glucagon 1mg Kit) 1 mg AD PRN IM HYPOGLYCEMIA PROTOCOL 04/22/25 20:00 05/22/25 19:59 Heparin Sodium (Porcine) (HEParin 5,000 UNIT VIAL) 5,000 unit Q8H SQ 04/25/25 09:00 04/25/25 08:40 DC Hydromorphone HCl (DiLAUDid 0.5MG INJ) 0.5 mg BIDPRN PRN IVP SEVERE PAIN (7-10) 04/25/25 19:00 04/30/25 18:59 Hydromorphone HCl (DiLAUDid 0.5MG INJ) 0.5 mg Q6H PRN IVP SEVERE PAIN (7-10) 04/23/25 14:00 04/25/25 08:25 DC 04/25/25 04:14 0.5 MG Insulin Glargine (LANtus 100 UNITS/ML 10 ML VIAL) 10 units HS SQ 04/24/25 21:00 04/24/25 16:57 DC Insulin Glargine (LANtus 100 UNITS/ML 10 ML VIAL) 10 units ONCE STAT SQ 04/24/25 10:54 04/24/25 11:00 DC 04/24/25 11:19 10 UNITS Insulin Glargine (LANtus 100 UNITS/ML 10 ML VIAL) 15 units HS SQ 04/24/25 21:00 7/3/25 17:06 DC Insulin Glargine (LANtus 100 UNITS/ML 10 ML VIAL) 30 units ONCE SQ 04/24/25 17:00 04/25/25 06:19 DC 04/24/25 18:16 30 UNITS Insulin Human Regular (humuLIN R 100 UNIT/ML 3ML) 5 unit TIDAC SQ 04/24/25 17:00 04/24/25 17:06 DC Insulin Human Regular (humuLIN R 100 UNIT/ML 3ML) 10 unit TIDAC SQ 04/24/25 17:00 04/25/25 06:17 DC 04/25/25 06:15 10 UNIT Insulin Human Regular (humuLIN R 100 UNIT/ML 3ML) 25 unit TIDAC SQ 04/25/25 07:30 05/25/25 07:29 04/25/25 11:58 25 UNIT Insulin Human Regular (humuLIN R 100 UNIT/ML 3ML) INSULIN SLIDING SCAL... ACHS SQ 04/22/25 21:00 04/24/25 16:16 DC 04/24/25 11:18 8 UNIT Insulin Human Regular (humuLIN R 100 UNIT/ML 3ML) INSULIN SLIDING SCAL... ACHS SQ 04/24/25 16:30 04/25/25 14:09 DC 04/25/25 11:57 16 UNIT Insulin Human Regular (humuLIN R 100 UNIT/ML 3ML) INSULIN SLIDING SCAL... ACHS SQ 04/25/25 16:30 05/25/25 16:29 Lactated Ringer's 1,000 ml @ 100 mls/hr Q10H IV 04/22/25 20:00 04/23/25 10:09 DC 04/23/25 06:00 100 MLS/HR Lactulose (Constulose 20gm/ 30ml Udcup) 30 gm TID PO 04/25/25 11:00 05/25/25 10:59 04/25/25 11:43 30 GM Levothyroxine Sodium (SYNTHroid 125MCG TAB) 125 mcg DAILY@0630 PO 04/25/25 06:30 05/25/25 06:29 Magnesium Sulfate 50 ml @ 0 mls/hr PROTOCOL PRN IV OTHER [SEE ORDER COMMENTS] 04/22/25 20:00 05/22/25 19:59 Methylprednisolone Sodium Succinate (Solu-medROL 125MG) 125 mg Q6H IVP 04/23/25 08:00 05/23/25 07:59 04/25/25 09:45 125 MG Metoprolol Succinate (TopROL XL) 50 mg AM PO 04/25/25 09:00 05/25/25 08:59 04/25/25 09:45 50 MG Ondansetron HCl (zoFRAN 4MG INJ) 4 mg Q6H PRN IV NAUSEA/VOMITING 04/22/25 20:00 05/22/25 19:59 04/22/25 20:10 4 MG Pantoprazole Sodium (PROTonix 40MG INJ) 40 mg DAILY IVP 04/24/25 10:00 05/24/25 09:59 04/25/25 09:45 40 MG Potassium Chloride 100 ml @ 100 mls/hr AD PRN IV POTASSIUM PROTOCOL 04/22/25 20:00 05/22/25 19:59 Potassium Chloride (K-Dur/Klor-Con 20meq) 20 meq AD PRN PO POTASSIUM PROTOCOL 04/22/25 20:00 05/22/25 19:59 Potassium Chloride (KCl 10% Elixir 20meq/15ml) 20 meq AD PRN PO POTASSIUM PROTOCOL 04/22/25 20:00 05/22/25 19:59 Pramipexole Dihydrochloride (miraPEX 0.25MG TAB) 0.5 mg HS PO 04/24/25 21:00 05/24/25 20:59 04/24/25 20:43 0.5 MG Pregabalin ([id number]) 75 mg BID PO 04/24/25 21:00 04/24/25 14:49 DC Sodium Chloride 500 ml @ 0 mls/hr Q0M IV 04/25/25 11:00 05/25/25 10:59 Sodium Zirconium Cyclosilicate (Lokelma 10gm Powder) 10 gm TID PO 04/23/25 21:00 04/23/25 14:11 DC Tramadol HCl (UltRAM) 50 mg Q6H PRN PO MODERATE PAIN (4-6) 04/24/25 22:30 04/29/25 22:29 04/25/25 02:32 50 MG Trimethoprim/ Sulfamethoxazole (BactRIM DS) 1 tab BID PO 04/25/25 21:00 05/05/25 20:59 Vancomycin HCl 250 ml @ 125 mls/hr Q12H IV 04/24/25 23:00 04/25/25 12:36 DC 04/25/25 11:43 125 MLS/HR Vancomycin HCl (Vancomycin Protocol) 1 each AD IV 04/24/25 10:30 04/25/25 12:36 DC Venlafaxine HCl (EffEXOR XR 37.5mg CAP) 37.5 mg DAILY PO 04/24/25 16:00 05/24/25 15:59 04/25/25 09:45 37.5 MG Venlafaxine HCl (EffEXOR XR 37.5mg CAP) 37.5 mg DAILY PO 04/25/25 09:00 04/24/25 14:50 DC LABORATORY: [ ] Hematology Labs: Test 04/27/25 04:42 04/26/25 04:16 Range/Units White Blood Count 5.3 4.8-10.8 K/uL Red Blood Count 3.86 L 4.00-5.50 MIL/uL Hemoglobin 9.6 L 12.0-16.0 g/dL Hematocrit 31.5 L 36-48 % Mean Corpuscular Volume 81.6 79-99 fL Mean Corpuscular Hemoglobin 24.9 L 27.0-33.0 pg Mean Corpuscular Hemoglobin Concent 30.5 L 32.0-36.0 g/dL Red Cell Distribution Width 20.9 H 11.0-15.5 % Platelet Count 28 L 130-400 K/uL Mean Platelet Volume 7.5-10.5 fL Immature Granulocyte % (Auto) 5.8 H 0-1 % Neutrophils (%) (Auto) 81.4 H 40.0-77.0 % Lymphocytes (%) (Auto) 5.6 L 21.0-51.0 % Monocytes (%) (Auto) 6.6 3.0-13.0 % Eosinophils (%) (Auto) 0.0 0.0-8.0 % Basophils (%) (Auto) 0.6 0.0-5.0 % Neutrophils # (Auto) 4.3 1.8-7.7 K/uL Lymphocytes # (Auto) 0.3 L 1.0-4.8 K/uL Monocytes # (Auto) 0.4 0.1-1.0 K/uL Eosinophils # (Auto) 0.00 0.00-0.70 K/uL Basophils # (Auto) 0.03 0.00-0.20 K/uL Absolute Immature Granulocyte (auto 0.31 0-1 K/uL Nucleated Red Blood Cells 0.6 H 0.0-0.19 % Segmented Neutrophils % 86 H 40-70 % Band Neutrophils % 3 H 0-2 % Monocytes % (Manual) 6 2-9 % Metamyelocytes % 3 H 0-0 % Myelocytes % 1 H 0-0 % Differential Comment MANUAL DIFFERENTIAL Reactive Lymphocytes 1 H 0-0 % White Cell Morphology Comment See comments Platelet Morphology Comment MARKED DECREASE Red Blood Cell Morphology HYPOCHROM CELLS 1+ Erythrocyte Sedimentation Rate 55 H 0-30 MM/HR Chemistry Labs: Test 04/27/25 05:25 04/27/25 04:42 04/26/25 04:16 Range/Units Whole Blood Glucose 349 H 70-110 MG/DL Sodium Level 147 H 136-145 mmol/L Potassium Level 5.0 3.5-5.1 mmol/L Chloride Level 114 H 101-111 mmol/L Carbon Dioxide Level 27 21-32 mmol/L Blood Urea Nitrogen 46 H 7-18 mg/dL Creatinine 0.9 0.5-1.0 mg/dL Glomerular Filtration Rate Calc 76 >90 mL/min Random Glucose 380 H 70-105 mg/dL Total Calcium 8.8 8.5-10.1 mg/dL Phosphorus Level 2.6 2.5-4.9 mg/dL Magnesium Level 2.00 1.80-2.40 mg/dL Total Bilirubin 1.5 H 0.2-1.0 mg/dL Aspartate Amino Transf (AST/SGOT) 58 H 10-37 U/L Alanine Aminotransferase (ALT/SGPT) 54 12-78 U/L Alkaline Phosphatase 184 H 50-136 U/L C-Reactive Protein, Quantitative 56.40 H 0.5-3.0 mg/L Total Protein 6.7 6.0-8.3 g/dL Albumin 2.0 L 3.5-5.0 g/dL Procalcitonin 1.34 H 0.05-0.5 ng/mL Direct Bilirubin 1.2 H 0.0-0.3 mg/dL Ammonia 12 # 11-32 umol/L Total Creatine Kinase 178 # 21-232 U/L B-Type Natriuretic Peptide 49 0-100 pg/mL Coagulation Labs: Test 04/26/25 04:16 Range/Units Prothrombin Time 13.3 H 9.6-11.6 SEC Prothromb Time International Ratio 1.29 H 0.85-1.15 DIAGNOSTICS / RADIOLOGY: REASON: SEVERE LOWER BACK ACHE ORDERING PHYSICIAN: KALI ALBERT MD PROCEDURE: L SPIN WO - CT LUMBAR SPINE W/O CONTRAST EXAM: CT Lumbar Spine Without IV Contrast CLINICAL HISTORY: Pain. TECHNIQUE: Spiral axial CT images through the lumbar spine were acquired, reconstructed in axial and sagittal projections, and imaged using soft tissue and bone algorithms. Reformatted/MPR images were performed. CT scan is done according to ALARA (As Low as Reasonably Achievable). CONTRAST: None. COMPARISON: X-ray lumbar spine dated 04/20/25. FINDINGS: No acute fracture. Normal lordotic curvature. Mild levoscoliosis. Normal vertebral body heights. Diffuse osteopenia. Moderate lumbar spondylosis with multilevel marginal osteophytes, facet arthropathy, and degenerative disc space reduction, most pronounced at L4-L5. The surrounding soft tissues are unremarkable. Individual spinal levels are described as follows: T12-L1: No disc bulge or herniation. No neural foraminal, lateral recess or spinal canal stenosis. L1-L2: No disc bulge or herniation. No neural foraminal, lateral recess or spinal canal stenosis. L2-L3: 6 mm diffuse disc bulge. Severe right and moderate left lateral recess and neural foraminal stenosis. Moderate spinal canal stenosis. L3-L4: 4 mm diffuse disc bulge. Moderate bilateral lateral recess and neural foraminal stenosis. Mild spinal canal stenosis. L4-L5: 6 mm diffuse disc bulge. Bilateral ligamentum flavum and facet hypertrophy. Severe bilateral lateral recess and neural foraminal stenosis. Moderate spinal canal stenosis. L5-S1: 3 mm diffuse disc bulge. Bilateral facet hypertrophy. Severe bilateral lateral recess and neural foraminal stenosis. Mild spinal canal stenosis. IMPRESSION: No fracture or dislocation in the lumbar spine. Moderate lumbar spondylosis with multilevel marginal osteophytes, facet arthropathy, and degenerative disc space reduction, most pronounced at L4-L5. Diffuse osteopenia. Mild levoscoliosis. Diffuse disc bulges from L2-L3 through L5-S1. Severe right and moderate left lateral recess and neural foraminal stenosis at L2-L3 with moderate spinal canal stenosis. Moderate bilateral lateral recess and neural foraminal stenosis at L3-L4 with mild spinal canal stenosis. Severe bilateral lateral recess and neural foraminal stenosis at L4-L5 with moderate spinal canal stenosis. Severe bilateral lateral recess and neural foraminal stenosis at L5-S1 with mild spinal canal stenosis. /[place] DICTATED BY: MARISELA MCDONOUGH MD DATE: 04/24/25 1401 REASON: CIRRHOSIS ORDERING PHYSICIAN: KALI ALBERT MD PROCEDURE: [id number] - US ABDOMINAL RUQ\LTD EXAMINATION: ULTRASOUND OF THE ABDOMEN (LIMITED) WITH COLOR DOPPLER. CLINICAL HISTORY: Cirrhosis. COMPARISON: CT abdomen and pelvis without contrast dated 04/22/2025. TECHNIQUE: Real-time grayscale ultrasound images of the abdomen. In addition, color Doppler is medically necessary to perform in order to evaluate vascularity and blood flow. FINDINGS: Liver: Normal in caliber, the right hepatic lobe measures 14.1 cm in the craniocaudal dimension. There is coarse echotexture of the hepatic parenchyma. There is no intrahepatic biliary ductal dilatation. There is normal spectral Doppler of the main portal vein. There is a hypoechoic lesion that measures 1.3 x 1.1 x 1.7 cm in the right lobe. Gallbladder: Post cholecystectomy status. Common bile duct is normal in caliber, measuring 0.5 cm. Pancreas: Obscured by overlying bowel gas The right kidney is normal in caliber, the right kidney measures 13.4 x 6.6 x 6.4 cm in craniocaudal, AP, and transverse dimensions respectively. There is normal renal cortical thickness, and cortical echogenicity. There is no renal calculus. There is moderate right hydronephrosis. IMPRESSION: Chronic hepatic disease. Hypoechoic lesion in the right lobe of the liver may reflect complex cyst. Post cholecystectomy status. Moderate right hydronephrosis. Recommend CT abdomen and pelvis with contrast. /[place] DICTATED BY: MARISELA MCDONOUGH MD DATE: 04/24/25 1158 REASON: Abdominal pain ORDERING PHYSICIAN: CAROL CLAYTON MD PROCEDURE: ABD PEL WO - CT ABDOMEN/PELVIS W/O CONTRAST EXAM: CT Abdomen and Pelvis without IV contrast CLINICAL HISTORY: Abdominal pain TECHNIQUE: Axial computed tomography images of the abdomen and pelvis without intravenous contrast. CT scan performed according to ALARA. Automated exposure control used during exam. CONTRAST: without intravenous contrast. COMPARISON: CT images dated February 20, 2025 FINDINGS: Lung bases are clear. Cirrhotic hepatic morphology. Splenomegaly reflect sequela of portal venous hypertension. Bilateral adrenal glands, and pancreas are within normal limits. The gallbladder is surgically absent. Bilateral renal cortical thickening with the cortices measuring up to 3.2 cm, may reflect renal parenchymal disease. Recommend correlation with laboratory parameters. No renal calculus or hydronephrosis appreciated. Bowel loops are normal in caliber without evidence of obstruction, ileus, or obvious bowel wall thickening. The appendix is within normal limits. No abnormality within the unopacified bladder. Pelvic organs demonstrate appropriate CT appearances. Trace free fluid within the pelvis. Presumed 3.0 x 1.7 cm seroma or sebaceous cyst within the ventral abdominal wall subcutaneous layer. There is no lymphadenopathy. There is no acute or suspicious osseous abnormality. IMPRESSION: 1. No acute intraabdominal or pelvic pathology. 2. Cirrhotic liver morphology with splenomegaly, consistent with portal hypertension. 3. Bilateral renal cortical thickening, may reflect renal parenchymal disease. /[place] DICTATED BY: BROOKLYN LOPEZ Jr., MD DATE: 04/22/251917 ASSESSMENT: Intractable low back pain due to spinal stenosis POA 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 POA Acute urinary tract infection due to MRSA POA Hypervolemic hyponatremia POA Chronic anemia POA Hyponatremia POA Acute kidney injury on renal insufficiency POA Hyperglycemia due to uncontrolled diabetes POA Hypocalcemia POA Cirrhotic liver with splenomegaly consistent with portal hypertension per CT POA Esophageal varices Renal parenchymal disease per CT POA Hypothyroidism POA Hypocalcemia POA Hyperlipidemia POA Hypertension POA Anxiety disorder POA Depression POA Restless leg syndrome POA Suspected obstructive sleep apnea untreated POA Morbid obesity POA PLAN: Labs, diagnostic, radiologic exams reviewed and interpreted by myself and supervising physician. We have reviewed external records in detail Continue with lactulose. Require close monitoring of renal function and electrolytes Order CBC, CMP, and electrolytes in am Continue with antibiotics BiPAP as necessary, for respiratory distress Monitor blood pressure adjust medication doses as needed Avoid hypotensive episodes May use Dilaudid 0.5 mg IV every 6 hours as needed for severe pain Monitor blood sugars Strict intake, output, and daily weight should be monitored Please renally adjust medications Avoid nephrotoxic and nonsteroidal drugs Avoid contrast if possible Will continue to monitor renal function, anemia, electrolytes Treatment plan discussed with patient Questions were answered We have discussed with the other team physicians in detail about the care plan We will continue to monitor the patient closely Total critical care time spent with patient, nursing staff, critical care team over 35 minutes ATTESTATION BY PHYSICIAN I have seen and examined the patient. I reviewed the documentation, medical decision making, and treatment plan as noted by the mid-level provider above. I agree with the findings and plan of care. ELKIN JOLLY MD, [facility] Apr 27, 2025 10:09
--- NOTE | 2025-04-27 10:41 | PN ---
[facility] PROGRESS NOTE Date Patient Seen: Apr 27, 2025 Time of Visit: 10:41 Supervising Physician: Osmin Vora MD Primary Care Physician: Josiah Fernando MD Outpatient Specialists: [ ] Inpatient Consults: Dr Soares, DR Madrigal, DR Ireland, DR Leung, Dr Figueroa PROBLEM LIST: Acute hypoxic hypercarbic respiratory failure on venous blood draw on 04/26/2025 AMS due to suspected steroid induced psychosis or hepatic encephalopathy, not POA Hyperammonemia due to cirrhosis Intractable low back pain due to spinal stenosis POA 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 POA Acute urinary tract infection due to complicated cystitis 2/2 MRSA POA moderate right hydronephrosis on US 04/24/25 Hypervolemic hyponatremia POA Chronic anemia POA Hyponatremia POA Acute kidney injury on renal insufficiency POA Hyperglycemia due to uncontrolled diabetes POA Hypocalcemia POA Cirrhotic liver with splenomegaly consistent with portal hypertension per CT POA Liver Lesion lesion that measures 1.3 x 1.1 x 1.7 cm in the right lobe. on US Esophageal varices Renal parenchymal disease per CT POA Hypothyroidism POA Hypocalcemia POA Hyperlipidemia POA Hypertension POA Anxiety disorder POA Depression POA Restless leg syndrome POA Suspected obstructive sleep apnea untreated POA Morbid obesity POA INTERVAL HISTORY: Pt is currently on precedex due to encephalopathy and agitation. She is tolerating bipap well and ABG's have improved. We will slowly wean off bipap and precedex gtt as tolerated. White count of 5.3 H&H of 9.6/31.5 platelet count of 28 K. neutrophils 81.4. Chemistries sodium is 147 chloride 114 carbon dioxide 27 BUN of 46 creatinine of 0.9 with a GFR of 76, improved kidney function glucose has been elevated 200s to 380 mg/dL we will change regular insulin from 15 units 3 times a day to ISS 2. Q.4 hours. 2D echo shows LVEF of 55-60% with a stage I diastolic dysfunction. Latest ABG shows a pH of 7.43 pCO2 of 40 PO2 116 bicarb 25.8. FiO2 decreased to 30% of 12/6. REVIEW OF SYSTEMS: Unable to perform due to patient's encephalopathy. PHYSICAL EXAM: GENERAL: light;y sedte on precedex gtt, awake to voice, barbara cooperative but continues confused. HEENT: EOMI, Sclera non icteric, moist mucosa NECK: Supple, no JVD, trachea midline LUNGS: decreased breath sounds bilaterally. No wheezes HEART: Regular rate and rhythm. Normal S1 and S2, without murmurs ABD: Abdomen soft, nontender. Bowel sounds present EXT: No clubbing cyanosis or edema NEURO: Alert and oriented to person, follows commands Vital Signs (last 8hr) Date Time Temp Pulse Resp B/P (MAP) Pulse Ox O2 Delivery O2 Flow Rate FiO2 04/27/25 10:15 44 16 123/43 (69) 96 04/27/25 10:00 46 12 140/50 (80) 97 04/27/25 09:45 48 13 130/56 (80) 96 04/27/25 09:30 48 15 120/62 (81) 96 04/27/25 09:15 45 13 131/67 (88) 97 04/27/25 09:00 48 13 132/66 (88) 96 04/27/25 08:45 49 8 140/49 (79) 95 04/27/25 08:30 46 13 149/66 (93) 98 04/27/25 08:15 99 Bi-PAP+ 30 04/27/25 08:15 45 12 125/51 (75) 96 04/27/25 08:00 97.5 46 12 130/57 (81) 97 04/27/25 08:00 97.5 04/27/25 07:45 48 12 147/50 (82) 95 04/27/25 07:30 45 13 130/58 (82) 96 04/27/25 07:15 44 13 137/54 (81) 96 04/27/25 07:00 47 13 134/60 (84) 96 04/27/25 06:45 45 14 30 04/27/25 06:12 46 14 134/60 (84) 94 04/27/25 05:58 54 10 139/84 (102) 99 04/27/25 05:42 48 14 123/55 (77) 93 04/27/25 05:27 46 13 131/58 (82) 93 04/27/25 05:12 57 17 153/84 (107) 91 04/27/25 05:06 85 22 122/76 (91) 98 04/27/25 04:12 41 13 124/68 (86) 94 04/27/25 04:00 96 Bi-PAP+ 30 04/27/25 04:00 97.3 04/27/25 03:52 48 18 30 04/27/25 03:42 43 12 129/69 (89) 94 04/27/25 03:27 46 13 127/67 (87) 94 04/27/25 03:12 43 13 128/62 (84) 96 04/27/25 02:57 44 12 127/66 (86) 96 04/27/25 02:42 44 13 122/47 (72) 95 LABS: Hematology Labs: Test 04/27/25 04:42 04/26/25 04:16 Range/Units White Blood Count 5.3 4.8-10.8 K/uL Red Blood Count 3.86 L 4.00-5.50 MIL/uL Hemoglobin 9.6 L 12.0-16.0 g/dL Hematocrit 31.5 L 36-48 % Mean Corpuscular Volume 81.6 79-99 fL Mean Corpuscular Hemoglobin 24.9 L 27.0-33.0 pg Mean Corpuscular Hemoglobin Concent 30.5 L 32.0-36.0 g/dL Red Cell Distribution Width 20.9 H 11.0-15.5 % Platelet Count 28 L 130-400 K/uL Mean Platelet Volume 7.5-10.5 fL Immature Granulocyte % (Auto) 5.8 H 0-1 % Neutrophils (%) (Auto) 81.4 H 40.0-77.0 % Lymphocytes (%) (Auto) 5.6 L 21.0-51.0 % Monocytes (%) (Auto) 6.6 3.0-13.0 % Eosinophils (%) (Auto) 0.0 0.0-8.0 % Basophils (%) (Auto) 0.6 0.0-5.0 % Neutrophils # (Auto) 4.3 1.8-7.7 K/uL Lymphocytes # (Auto) 0.3 L 1.0-4.8 K/uL Monocytes # (Auto) 0.4 0.1-1.0 K/uL Eosinophils # (Auto) 0.00 0.00-0.70 K/uL Basophils # (Auto) 0.03 0.00-0.20 K/uL Absolute Immature Granulocyte (auto 0.31 0-1 K/uL Nucleated Red Blood Cells 0.6 H 0.0-0.19 % Segmented Neutrophils % 86 H 40-70 % Band Neutrophils % 3 H 0-2 % Monocytes % (Manual) 6 2-9 % Metamyelocytes % 3 H 0-0 % Myelocytes % 1 H 0-0 % Differential Comment MANUAL DIFFERENTIAL Reactive Lymphocytes 1 H 0-0 % White Cell Morphology Comment See comments Platelet Morphology Comment MARKED DECREASE Red Blood Cell Morphology HYPOCHROM CELLS 1+ Erythrocyte Sedimentation Rate 55 H 0-30 MM/HR Chemistry Labs: Test 04/27/25 05:25 04/27/25 04:42 04/26/25 04:16 Range/Units Whole Blood Glucose 349 H 70-110 MG/DL Sodium Level 147 H 136-145 mmol/L Potassium Level 5.0 3.5-5.1 mmol/L Chloride Level 114 H 101-111 mmol/L Carbon Dioxide Level 27 21-32 mmol/L Blood Urea Nitrogen 46 H 7-18 mg/dL Creatinine 0.9 0.5-1.0 mg/dL Glomerular Filtration Rate Calc 76 >90 mL/min Random Glucose 380 H 70-105 mg/dL Total Calcium 8.8 8.5-10.1 mg/dL Phosphorus Level 2.6 2.5-4.9 mg/dL Magnesium Level 2.00 1.80-2.40 mg/dL Total Bilirubin 1.5 H 0.2-1.0 mg/dL Aspartate Amino Transf (AST/SGOT) 58 H 10-37 U/L Alanine Aminotransferase (ALT/SGPT) 54 12-78 U/L Alkaline Phosphatase 184 H 50-136 U/L C-Reactive Protein, Quantitative 56.40 H 0.5-3.0 mg/L Total Protein 6.7 6.0-8.3 g/dL Albumin 2.0 L 3.5-5.0 g/dL Procalcitonin 1.34 H 0.05-0.5 ng/mL Direct Bilirubin 1.2 H 0.0-0.3 mg/dL Ammonia 12 # 11-32 umol/L Total Creatine Kinase 178 # 21-232 U/L B-Type Natriuretic Peptide 49 0-100 pg/mL Coagulation Labs: Test 04/26/25 04:16 Range/Units Prothrombin Time 13.3 H 9.6-11.6 SEC Prothromb Time International Ratio 1.29 H 0.85-1.15 DIAGNOSTICS / RADIOLOGY RESULTS: [[facility] [address] [place], [place] [id number] IMAGING REPORT Signed PATIENT: LUCÍA CATALAN MR#: [id number] : 1970 SEX: F AGE: 54 LOCATION: 2C ORDER 1208 STATUS: ADM IN REPORT#: [id number] SERVICE 1207 REASON: bacteremia mrsa ORDERING PHYSICIAN: EDNA SOARES MD PROCEDURE: ECHO CMP - ECHO 2-D COMPLETE APPROVED REPORT EXAM: Two-dimensional and M-mode echocardiogram with Doppler and color Doppler. Study Details: HTN ,HLD ,Diabt M INDICATION ICD: Bacteremia R78.81 mrsa 2D Dimensions RVDd 4.4 cm LVEF(%) 47.5 (>50%) LVED Vol(simp.) 143.2 mL IVSd 0.8 (0.7-1.1cm) FS(%) 24 % LVES Vol(simp.) 67.2 mL LVDd 4.9 (3.8-5.6cm) LA (2D) 3.7 (1.6-4.0cm) LVEF(%, simp.) 53 % PWd 1.0 (0.7-1.1cm) Ao Root(2D) 3.0 (2.0-3.7cm) LA ESV INDEX (4CH) 62.00 mL/m2 IVSs 1.0 cm LVOT diam 2.1 (1.8-2.4cm) LA ESV INDEX (2CH) 33.87 mL/m2 LVDs 3.7 (2.5-4.0cm) IVC diam 2.1 cm LA ESV INDEX (BP) 35.75 mL/m2 PWs 1.4 cm Deformation Strain Apical 4 -20.3 % Apical 2 -11.6 % Apical 3 -11.7 % Global Strain -14.5 % M-Mode Dimensions LA (MM) 4.5 (1.6-4.0cm) Ao Root(MM) 2.9 (2.0-3.7cm) Aortic Valve AoV Vmax 1.6 m/s Ao Peak GR 10.2 mmHg LVOT Vmax 0.9 m/s AoV VTI 0.4 m Ao Mean GR 5.3 mmHg LVOT VTI 0.26 m CHRIS (VMAX) 1.91 cm2 CHRIS (VTI) 2.0 cm2 Mitral Valve MV E Vmax 85.5 cm/s DECEL Time 223 ms MV A Vmax 54.9 cm/s E/A ratio 1.6 TDI E/E' Medial 9.1 E/E' Lateral 6.8 Medial E' Peak V 9.42 cm/s Lateral E' Peak V 12.66 cm/s Pulmonary Valve PV Vmax 1.0 m/s PV VTI 0.31 m PV Mean GR 2.4 mmHg PV Peak GR 4.1 mmHg Tricuspid Valve TR Vmax 2.3 m/s RVSP 21.3 mmHg TR Peak GR 21.3 mmHg Left Ventricle The left ventricle is normal size. No regional wall motion abnormalities noted. There is normal left ventricular wall thickness. LVEF is 55-60%. Stage I diastolic dysfunction. Right Ventricle The right ventricle is mildly dilated. The right ventricular systolic function is normal. Atria The left atrium size is normal. The interatrial septum is intact with no evidence for an atrial septal defect. The right atrium size is normal. Aortic Valve The aortic valve is normal in structure. Aortic valve is trileaflet. No aortic regurgitation is present. There is no aortic valvular stenosis. Mitral Valve The mitral valve is mildly thickened. Mitral regurgitation is trace. There is no mitral valve stenosis. Tricuspid Valve The tricuspid valve is normal in structure. Mild tricuspid regurgitation. Pulmonic Valve The pulmonary valve is normal in structure. There is no pulmonic valvular regurgitation. Great Vessels The aortic root is normal in size. The ascending aorta is normal in size. IVC is dilated and collapses >50% with inspiration. Pericardium no pericardial effusion. Conclusion LVEF is 55-60%. Stage I diastolic dysfunction. No regional wall motion abnormalities noted. Mitral regurgitation is trace. Mild tricuspid regurgitation. The ascending aorta is normal in size. DICTATED BY: BELL GOODMAN MD DATE: 04/27/25 0031 ELECTRONICALLY SIGNED BY: BELL GOODMAN MD DATE: 04/27/25 1323 ] PLAN Steroid-induced encephalopathy suspected given acute AMS in setting of recent high-dose corticosteroids. No focal deficits. VS infectious encephalopathy from staph aureus bacteremia. CBC, CMP, magnesium, phosphate and ammonia in the morning TSH, B12, am cortisol level precedex gtt bipap wean as possible ISS #2 q 4 hrs monitor hemodynamics monitor for fevers- continue vancomycin FC There is moderate rt hydronephrosis on US NEURO: Minimize central acting medications as possible. Maintain fall precautions, adequate lighting during the day PULMONARY: Supplemental 02 as needed. Maintain aspiration precautions at all times CARDIOVASCULAR: Follow hemodynamics. Vital signs per facility protocol GI & NUTRITION: Continue with nutritional support. Continue stool softeners and laxatives as needed. KIDNEYS & ELECTROLYTES: Strict monitoring of intake, output and overall fluid balance. Avoid nephrotoxic medications to the extent possible. Medications to be dosed according to renal function. Monitor electrolytes and replace as needed ENDOCRINE: Maintain blood glucose between 100-180 at all times. Hypoglycemia protocol in place INFECTIOUS DISEASE: Trend temperature, WBC and procalcitonin level Follow cultures, deescalate antibiotics as soon as possible. Panculture if new onset fever ONCOLOGY/HEMATOLOGY/COAGULATION: Monitor for s/s of bleeding Monitor hemoglobin, coagulation studies as needed SKIN: Pressure ulcer prevention per facility protocol Specialty mattress ORTHO/REHAB: Continue PT/OT Prophylaxis: Continue GI and DVT prophylaxis Code Status: Full Resuscitation Disposition: TBD Other: Total patient care time exceeds 35 minutes excluding all procedures. ATTESTATION BY PHYSICIAN I have evaluated the patient chart, medical records, and spoke with appropriate staff. I reviewed the documentation, medical decision making, and treatment plan as noted by the mid-level provider above. I agree with the findings and plan of care. Osmin Vora MD, [facility] Apr 27, 2025 10:41
--- NOTE | 2025-04-27 13:23 | HMCSR ---
APPROVED REPORT EXAM: Two-dimensional and M-mode echocardiogram with Doppler and color Doppler. Study Details: HTN ,HLD ,Diabt M INDICATION ICD: Bacteremia R78.81 mrsa 2D Dimensions RVDd4.4 cmLVEF(%)47.5 (>50%)LVED Vol(simp.)143.2 mL IVSd0.8 (0.7-1.1cm)FS(%)24 %LVES Vol(simp.)67.2 mL LVDd4.9 (3.8-5.6cm)LA (2D)3.7 (1.6-4.0cm)LVEF(%, simp.)53 % PWd1.0 (0.7-1.1cm)Ao Root(2D)3.0 (2.0-3.7cm)LA ESV INDEX (4CH)62.00 mL/m2 IVSs1.0 cmLVOT diam2.1 (1.8-2.4cm)LA ESV INDEX (2CH)33.87 mL/m2 LVDs3.7 (2.5-4.0cm)IVC diam2.1 cmLA ESV INDEX (BP)35.75 mL/m2 PWs1.4 cm Deformation Strain Apical 4-20.3 % Apical 2-11.6 % Apical 3-11.7 % Global Strain-14.5 % M-Mode Dimensions LA (MM)4.5 (1.6-4.0cm) Ao Root(MM)2.9 (2.0-3.7cm) Aortic Valve AoV Vmax1.6 m/Katharina Peak GR10.2 mmHgLVOT Vmax0.9 m/s AoV VTI0.4 mAo Mean GR5.3 mmHgLVOT VTI0.26 m CHRIS (VMAX)1.91 cm2AVA (VTI) 2.0 cm2 Mitral Valve MV E Vmax85.5 cm/sDECEL [id number] ms MV A Vmax54.9 cm/s E/A ratio1.6 TDI E/E' Medial9.1E/E' Lateral6.8 Medial E' Peak V9.42 cm/sLateral E' Peak V12.66 cm/s Pulmonary Valve PV Vmax1.0 m/sPV VTI0.31 mPV Mean GR2.4 mmHg PV Peak GR4.1 mmHg Tricuspid Valve TR Vmax2.3 m/sRVSP21.3 mmHg TR Peak GR21.3 mmHg Left Ventricle The left ventricle is normal size. No regional wall motion abnormalities noted. There is normal left ventricular wall thickness. LVEF is 55-60%. Stage I diastolic dysfunction. Right Ventricle The right ventricle is mildly dilated. The right ventricular systolic function is normal. Atria The left atrium size is normal. The interatrial septum is intact with no evidence for an atrial septa l defect. The right atrium size is normal. Aortic Valve The aortic valve is normal in structure. Aortic valve is trileaflet. No aortic regurgitation is prese nt. There is no aortic valvular stenosis. Mitral Valve The mitral valve is mildly thickened. Mitral regurgitation is trace. There is no mitral valve stenosi s. Tricuspid Valve The tricuspid valve is normal in structure. Mild tricuspid regurgitation. Pulmonic Valve The pulmonary valve is normal in structure. There is no pulmonic valvular regurgitation. Great Vessels The aortic root is normal in size. The ascending aorta is normal in size. IVC is dilated and collapse s >50% with inspiration. Pericardium no pericardial effusion. Conclusion LVEF is 55-60%. Stage I diastolic dysfunction. No regional wall motion abnormalities noted. Mitral regurgitation is trace. Mild tricuspid regurgitation. The ascending aorta is normal in size.
--- NOTE | 2025-04-27 14:55 | PN ---
[facility] PROGRESS NOTE Date of Service: Apr 27, 2025 Time of Service: 14:50 SUBJECTIVE: This is a 54-year-old female with past medical history of undiagnosed obstructive sleep apnea, diabetes type 2, hypertension, hyperlipidemia, hypothyroidism, restless leg syndrome, anxiety disorder,depression, lupus and severe morbid obesity who presents to the ED for complaints of severe low back p ain which started 2 weeks ago and getting worse for the past 2 days and patient reports she is taking prednisone 30mg po daily for her Lupus she said.Patient also reports she was recently seen in this ED for similar complaints and was diagnosed with acute lumbosacral myofascial strain. 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 Urinalysis consistent with urinary tract infection. CT abdomen and pelvis result revealed no acute intra-abdominal or pelvic pathology cirrhotic liver morphology with splenomegaly, consistent with portal hypertension. Bilateral renal cortical thickening may reflect renal parenchymal disease. While in the ER patient received Rocephin 1 g IV, 1 L NS bolus. We will admit patient for further medical management. 04/23/25 Patient was seen and examined at bedside. She was complaining of chest pain early in the morning but her EKG and troponin were normal. Patient says she got liver cirrhosis from taking Tylenol with codeine in the past for a long time. Remarkable labs are Na 129, K 6.4. Cl 98, BUN 44. Cr 1.2 with no anion gap. New EKG shows sinus rhythm with no tall T-waves or shortened QT interval. We will give her a dose of calcium gluconate and lokelma and recheck her labs. we will hold her iv fluids for now. Her urine anion gap is 36.0 mEq/l. Repeat potassium was 4.2 and 4.6. We will order CT lumbar spine and request nephro and cardio consults due to hyponatremia, RTA and cirrhosis with portal hypertension respectively. We will order lupus, complement , anemia panel due to her abnormal labs and h/o SLE. Hematology recommended solu medrol 125 q6. she might need hydrochloroquine upon discharge for SLE 04/24/25 Patient was seen and examined at bedside. She is complaining of widespread generalized body pain with tender points and generalized weakness, her CPK is going up, we will repeat it and start her on pregabalin. Her labs are improving. She had an EGD done last year that showed grade III varices but lost to follow up with TDS. No GI intervention as her Hb is stable. Will start her on vancomycin. Her home meds have been reconciled. She takes venlaflaxine and pramipexole for depression and restless leg syndrome respectively. Her elevated urine anion gap could be due to BALTAZAR or NSAID induced kidney injury but her creatinine is improving. Pending abdominal ultrasound and CT lumbar spine res ults. 04/25/25 Patient was seen and examined. She was observed sitting in a chair but was unable to answer questions appropriately and appeared confused. Ammonia level was elevated at 59; lactulose has been initiated at 30 mL TID. She is currently receiving vancomycin for MRSA identified in the urine. Right upper quadrant ultrasound demonstrated chronic hepatic changes with a hypoechoic lesion in the right lobe of the liver, possibly representing a complex cyst. CT of the lumbar spine revealed moderate lumbar spondylosis and diffuse osteopenia. Her platelet count is 37 and showing slow improvement. Dr. Urias, covering for Dr. Lorenzo, recommended holding solu-medrol for now. If platelet count declines tomorrow, steroids may need to be restarted. Ammonia and additional labs will be rechecked in the morning. 04/26/25 Patient was seen at bedside. Will request a transfer to the ICU due to worsening agitation and hypercapnic respiratory failure requiring BIPAP support.Will order Precedex drip for sedation to improve tolerance of non-invasive ventilation. Imaging studies including CT head and MRI spine have been ordered to evaluate for underlying neurologic causes. Patient remains hemodynamically stable; pulmonary consult is in place. She is growing gram positive cocci in clusters in her blood, will request ID input on antibiotics as she was on vancomycin previously and was started on bactrim for MRSA in urine. Her platelet count is 36 and solu-medrol is on hold. Ammonia improved from 59 to 12 04/27/25 Patient was evaluated at bedside. She was transferred to the ICU yesterday due to agitation and hypercapnia, requiring a Precedex drip as she was removing her nasal cannula. BiPAP was initiated to support ventilation, and she is now resting comfortably. CT brain was unremarkable with no acute findings. She has a free water deficit of approximately 1.4 liters, for which D5W will be administered. CRP has decreased from 83.5 to 56.4. However, platelets have dropped from 36 to 28, and hematology is closely monitoring her. The patient remains NPO. We wanted to start NG tube feeding but patient has h/o esophageal varices. We will await gastroenterologys recommendations, including possible EGD if indicated. REVIEW OF SYSTEMS CONSTITUTIONAL: Denies fevers, chills, or night sweats. No unintentional weight loss reported. NEUROLOGICAL: Denies headache, amaurosis fugax, motor weakness, sensory deficit, vertigo/spinning sensation, gait abnormalities, or tremors. ENT: No hearing loss, otalgia, otorrhea, rhinitis, rhinorrhea, hoarseness, or sore throat. CARDIOVASCULAR: Denies any exertional angina, dyspnea on exertion, orthopnea, paroxysmal nocturnal dyspnea, palpitations, life-threatening arrhythmias, claudication. PULMONARY: Denies any shortness of breath, cough, phlegm/sputum, hemoptysis, pleuritic chest pain. SLEEP: Denies morning headaches, daytime somnolence or napping. Denies difficulty falling asleep, staying asleep, waking from sleep. Denies knowledge of snoring. GASTROINTESTINAL: Denies any type of dysphagia to either liquids or solids. Denies nausea, vomiting, pyrosis, early satiety, abdominal pain, diarrhea, constipation, or changes in stool consistency or caliber. Denies coffee-ground emesis, hematemesis, hematochezia, or melanotic stools. GENITOURINARY: Denies frequency, urgency, nocturia, hematuria or incontinence (Storage/Irritative symptoms.) Low urinary stream, straining to void, urinary intermittency or hesitancy, splitting of the voiding stream, terminal dribbling. ENDOCRINOLOGIC: Denies polyuria, polydipsia, polyphagia or heat/cold intolerances. HEMATOLOGIC: Denies thrombophilia/previous clots, or coagulopathy/bleeding disorders. ONCOLOGIC: Denies personal history of malignancy. DERMATOLOGIC: Denies rashes or pruritus. PSYCHIATRIC: Denies any suicidal or homicidal ideation. Denies hallucinations. PHYSICAL EXAM GENERAL APPEARANCE: The patient is awake, alert, and oriented, in no acute cardiopulmonary distress. NEUROLOGICAL: Cranial nerves II-XII grossly intact. Motor is 5/5 in bilateral upper and lower extremities proximal to distal. No sensory deficits. HEENT: Face is symmetric. Pupils are equal and reactive. Extraocular movements are intact. NECK: Supple. No JVD. No thyromegaly. No submental, submandibular, pre- /postauricular, occipital or supraclavicular lymphadenopathy. CHEST: Normal chest expansion. No Telemetry. LUNGS: Absence of any rales, rhonchi or any wheezing. CARDIOVASCULAR: Regular. S1 and S2 normal. No appreciable rubs, murmurs or gallops. ABDOMEN: Soft, nontender, and nondistended. There is no rebound, voluntary guarding, or rigidity. : Deferred. No [place]. EXTREMITIES: Non-edematous and not cyanotic. No clubbing. Good capillary refill. SKIN: No skin breakdown. Vital Signs (last 8hr) Date Time Temp Pulse Resp B/P (MAP) Pulse Ox O2 Delivery O2 Flow Rate FiO2 04/27/25 13:45 49 13 118/51 (73) 98 04/27/25 13:30 50 14 114/48 (70) 99 04/27/25 13:15 51 15 124/54 (77) 100 04/27/25 13:08 51 12 30 04/27/25 13:00 47 12 120/44 (69) 98 04/27/25 12:45 46 14 136/52 (80) 99 04/27/25 12:30 47 14 117/42 (67) 99 04/27/25 12:15 45 13 114/47 (69) 98 04/27/25 12:00 97.7 46 13 116/49 (71) 97 04/27/25 12:00 97.7 04/27/25 12:00 99 Bi-PAP+ 30 04/27/25 11:45 45 13 116/52 (73) 97 04/27/25 11:30 46 12 114/44 (67) 98 04/27/25 11:15 43 12 120/44 (69) 99 04/27/25 11:00 46 12 124/49 (74) 98 04/27/25 10:45 45 14 127/57 (80) 97 04/27/25 10:30 46 13 128/52 (77) 100 04/27/25 10:15 44 16 123/43 (69) 96 04/27/25 10:00 46 12 140/50 (80) 97 04/27/25 09:45 48 13 130/56 (80) 96 04/27/25 09:30 48 15 120/62 (81) 96 04/27/25 09:15 45 13 131/67 (88) 97 04/27/25 09:00 48 13 132/66 (88) 96 04/27/25 08:45 49 8 140/49 (79) 95 04/27/25 08:30 46 13 149/66 (93) 98 04/27/25 08:15 99 Bi-PAP+ 30 04/27/25 08:15 45 12 125/51 (75) 96 04/27/25 08:00 97.5 46 12 130/57 (81) 97 04/27/25 08:00 97.5 04/27/25 07:45 48 12 147/50 (82) 95 04/27/25 07:30 45 13 130/58 (82) 96 04/27/25 07:15 44 13 137/54 (81) 96 04/27/25 07:00 47 13 134/60 (84) 96 LABS: Laboratory: Test 04/27/25 11:20 04/27/25 04:42 04/27/25 03:42 04/26/25 18:40 Range/Units Whole Blood Glucose 320 H 70-110 MG/DL White Blood Count 5.3 4.8-10.8 K/uL Red Blood Count 3.86 L 4.00-5.50 MIL/uL Hemoglobin 9.6 L 12.0-16.0 g/dL Hematocrit 31.5 L 36-48 % Mean Corpuscular Volume 81.6 79-99 fL Mean Corpuscular Hemoglobin 24.9 L 27.0-33.0 pg Mean Corpuscular Hemoglobin Concent 30.5 L 32.0-36.0 g/dL Red Cell Distribution Width 20.9 H 11.0-15.5 % Platelet Count 28 L 130-400 K/uL Mean Platelet Volume 7.5-10.5 fL Immature Granulocyte % (Auto) 5.8 H 0-1 % Neutrophils (%) (Auto) 81.4 H 40.0-77.0 % Lymphocytes (%) (Auto) 5.6 L 21.0-51.0 % Monocytes (%) (Auto) 6.6 3.0-13.0 % Eosinophils (%) (Auto) 0.0 0.0-8.0 % Basophils (%) (Auto) 0.6 0.0-5.0 % Neutrophils # (Auto) 4.3 1.8-7.7 K/uL Lymphocytes # (Auto) 0.3 L 1.0-4.8 K/uL Monocytes # (Auto) 0.4 0.1-1.0 K/uL Eosinophils # (Auto) 0.00 0.00-0.70 K/uL Basophils # (Auto) 0.03 0.00-0.20 K/uL Absolute Immature Granulocyte (auto 0.31 0-1 K/uL Nucleated Red Blood Cells 0.6 H 0.0-0.19 % Sodium Level 147 H 136-145 mmol/L Potassium Level 5.0 3.5-5.1 mmol/L Chloride Level 114 H 101-111 mmol/L Carbon Dioxide Level 27 21-32 mmol/L Blood Urea Nitrogen 46 H 7-18 mg/dL Creatinine 0.9 0.5-1.0 mg/dL Glomerular Filtration Rate Calc 76 >90 mL/min Random Glucose 380 H 70-105 mg/dL Total Calcium 8.8 8.5-10.1 mg/dL Phosphorus Level 2.6 2.5-4.9 mg/dL Magnesium Level 2.00 1.80-2.40 mg/dL Total Bilirubin 1.5 H 0.2-1.0 mg/dL Aspartate Amino Transf (AST/SGOT) 58 H 10-37 U/L Alanine Aminotransferase (ALT/SGPT) 54 12-78 U/L Alkaline Phosphatase 184 H 50-136 U/L C-Reactive Protein, Quantitative 56.40 H 0.5-3.0 mg/L Total Protein 6.7 6.0-8.3 g/dL Albumin 2.0 L 3.5-5.0 g/dL Procalcitonin 1.34 H 0.05-0.5 ng/mL Blood Gas Specimen Type Arterial Arterial Blood pH 7.430 7.350-7.450 Arterial Blood Partial Pressure CO2 40 32-45 mmHg Arterial Blood Partial Pressure O2 160.4 H 83.0-108.0 mmHg Arterial Blood HCO3 25.8 21.0-28.0 mmol/L Arterial Blood Oxygen Saturation 99.1 H 94.0-98.0 % Arterial Blood Base Excess 1.5 -2.0-3.0 mmol/L Blood Gas Temperature 37.0 35.5-37.0 CELSIUS Blood Gas Respiration Rate 12.0 min. Blood Gas Vent Mode BIPAP,12,6 ROOM AIR FiO2 40.0 % Blood Gas Specimen Comment LR,RN YASMIN Hemoglobin (Blood Gas) 10.5 L 12.0-16.0 g/dL Sodium (Blood Gas) 144 136-145 MMOL/L Bedside Potassium (Blood Gas) 3.9 3.4-4.5 MMOL/L Bedside Chloride (Blood Gas) 112 H 98-107 MMOL/L Bedside Glucose (Blood Gas) 297 H 65-95 MG/DL Bedside Ionized Calcium (Blood Gas) 1.33 1.15-1.33 MMOL/L Bedside Lactic Acid (Blood Gas) 1.78 H 0.36-0.75 MMOL/L Test 04/26/25 04:16 04/25/25 22:22 04/25/25 16:55 Range/Units Segmented Neutrophils % 86 H 40-70 % Band Neutrophils % 3 H 0-2 % Monocytes % (Manual) 6 2-9 % Metamyelocytes % 3 H 0-0 % Myelocytes % 1 H 0-0 % Differential Comment MANUAL DIFFERENTIAL Reactive Lymphocytes 1 H 0-0 % White Cell Morphology Comment See comments Platelet Morphology Comment MARKED DECREASE Red Blood Cell Morphology HYPOCHROM CELLS 1+ Erythrocyte Sedimentation Rate 55 H 0-30 MM/HR Prothrombin Time 13.3 H 9.6-11.6 SEC Prothromb Time International Ratio 1.29 H 0.85-1.15 Venous Blood pH 7.310 L 7.320-7.430 Venous Blood pCO2 at Patient Temp 59 *H 38-54 Venous Blood pO2 at Patient Temp 36.9 23.0-48.0 mmHg Venous Blood HCO3 29.1 H 22.0-29.0 Venous Blood Base Excess 1.3 -2.0-3.0 Direct Bilirubin 1.2 H 0.0-0.3 mg/dL Ammonia 12 # 11-32 umol/L Total Creatine Kinase 178 # 21-232 U/L B-Type Natriuretic Peptide 49 0-100 pg/mL Vancomycin Level Trough 12.8 10.0-20.0 UG/ML Influenza Type A Antigen Negative For Type A NEGATIVE Influenza Type B Antigen Negative For Type B NEGATIVE SARS-CoV-2 Antigen (Rapid) PRESUMPTIVE NEGATIVE NEGATIVE Group A Streptococcus Rapid negative NEGATIVE Current Medications Medications (Trade) Dose Ordered Sig/Roberth Route PRN Reason Start Time Stop Time Status Last Admin Dose Admin Acetaminophen (TYLenol 325MG TAB) 650 mg Q4H PRN PO MILD PAIN (1-3) 04/22/25 20:00 05/22/25 19:59 04/24/25 20:44 650 MG Acetaminophen (TYLenol 325MG TAB) 650 mg Q6H PRN PO TEMPERATURE GREATER THAN 101.5 04/22/25 20:00 05/22/25 19:59 04/23/25 10:02 650 MG Atorvastatin Calcium (LIPItor 20MG) 20 mg HS PO 04/24/25 21:00 05/24/25 20:59 04/25/25 21:51 20 MG Ceftriaxone Sodium 1 gm/ Sodium Chloride 50 ml @ 100 mls/hr BID IV 04/22/25 21:00 04/22/25 19:59 DC Ceftriaxone Sodium (ROCEphine 1G INJ) 1 gm BID IVPB 04/22/25 21:00 04/22/25 20:44 DC Ceftriaxone Sodium (ROCEphine 1G INJ) 1 gm BID IVPB 04/23/25 09:00 04/25/25 12:36 DC 04/25/25 09:44 1 GM Dexmedetomidine/ Sodium Chloride (PRECEdex 200MCG/ 50ML-NS) 200 mcg PROTOCOL IV 04/26/25 12:00 04/26/25 14:54 DC Dexmedetomidine/ Sodium Chloride (PRECEdex 400MCG/ 100ML-NS) 400 mcg PROTOCOL PRN IV ANXIETY/AGITATION 04/26/25 19:30 05/26/25 19:29 04/27/25 05:37 400 MCG Dexmedetomidine/ Sodium Chloride (PRECEdex 400MCG/ 100ML-NS) 400 mcg PROTOCOL STAT IV 04/26/25 14:53 04/26/25 14:58 DC 04/26/25 15:18 400 MCG Dextrose 1,000 ml @ 75 mls/hr [id number] IV 04/26/25 12:00 05/26/25 11:59 04/27/25 09:05 75 MLS/HR Dextrose (D50w) 50 ml AD PRN IV HYPOGLYCEMIA PROTOCOL 04/22/25 20:00 05/22/25 19:59 Famotidine (Pepcid 20mg Tab) 20 mg DAILY PO 04/23/25 09:00 04/24/25 09:48 DC 04/23/25 09:33 20 MG Gabapentin (NEURontin 300 MG CAP) 300 mg BID PO 04/24/25 21:00 05/24/25 20:59 Hold 04/25/25 21:51 300 MG Glucagon (Glucagon 1mg Kit) 1 mg AD PRN IM HYPOGLYCEMIA PROTOCOL 04/22/25 20:00 05/22/25 19:59 Heparin Sodium (Porcine) (HEParin 5,000 UNIT VIAL) 5,000 unit Q8H SQ 04/25/25 09:00 04/25/25 08:40 DC Hydromorphone HCl (DiLAUDid 0.5MG INJ) 0.5 mg BIDPRN PRN IVP SEVERE PAIN (7-10) 04/25/25 19:00 04/30/25 18:59 04/25/25 22:51 0.5 MG Hydromorphone HCl (DiLAUDid 0.5MG INJ) 0.5 mg Q6H PRN IVP SEVERE PAIN (7-10) 04/23/25 14:00 04/25/25 08:25 DC 04/25/25 04:14 0.5 MG Insulin Glargine (LANtus 100 UNITS/ML 10 ML VIAL) 10 units HS SQ 04/24/25 21:00 04/24/25 16:57 DC Insulin Glargine (LANtus 100 UNITS/ML 10 ML VIAL) 10 units ONCE STAT SQ 04/24/25 10:54 04/24/25 11:00 DC 04/24/25 11:19 10 UNITS Insulin Glargine (LANtus 100 UNITS/ML 10 ML VIAL) 15 units HS SQ 04/24/25 21:00 04/24/25 17:06 DC Insulin Glargine (LANtus 100 UNITS/ML 10 ML VIAL) 30 units ONCE SQ 04/24/25 17:00 04/25/25 06:19 DC 04/24/25 18:16 30 UNITS Insulin Glargine (LANtus 100 UNITS/ML 10 ML VIAL) 50 units DAILY SQ 04/26/25 09:00 05/26/25 08:59 04/27/25 09:06 50 UNITS Insulin Human Regular (humuLIN R 100 UNIT/ML 3ML) 5 unit TIDAC SQ 04/24/25 17:00 04/24/25 17:06 DC Insulin Human Regular (humuLIN R 100 UNIT/ML 3ML) 10 unit TIDAC SQ 04/24/25 17:00 04/25/25 06:17 DC 04/25/25 06:15 10 UNIT Insulin Human Regular (humuLIN R 100 UNIT/ML 3ML) 15 unit TIDAC SQ 04/26/25 11:30 05/26/25 11:29 Insulin Human Regular (humuLIN R 100 UNIT/ML 3ML) 25 unit TIDAC SQ 04/25/25 07:30 04/26/25 07:58 DC 04/25/25 17:39 25 UNIT Insulin Human Regular (humuLIN R 100 UNIT/ML 3ML) INSULIN SLIDING SCAL... ACHS SQ 04/22/25 21:00 04/24/25 16:16 DC 04/24/25 11:18 8 UNIT Insulin Human Regular (humuLIN R 100 UNIT/ML 3ML) INSULIN SLIDING SCAL... ACHS SQ 04/24/25 16:30 04/25/25 14:09 DC 04/25/25 11:57 16 UNIT Insulin Human Regular (humuLIN R 100 UNIT/ML 3ML) INSULIN SLIDING SCAL... ACHS SQ 04/25/25 16:30 05/25/25 16:29 04/27/25 11:28 16 UNIT Lactated Ringer's 1,000 ml @ 100 mls/hr Q10H IV 04/22/25 20:00 04/23/25 10:09 DC 04/23/25 06:00 100 MLS/HR Lactulose (Constulose 20gm/ 30ml Udcup) 30 gm TID PO 04/25/25 11:00 05/25/25 10:59 04/25/25 21:52 30 GM Levothyroxine Sodium (SYNTHroid 125MCG TAB) 125 mcg DAILY@0630 PO 04/25/25 06:30 05/25/25 06:29 Magnesium Sulfate 50 ml @ 0 mls/hr PROTOCOL PRN IV OTHER [SEE ORDER COMMENTS] 04/22/25 20:00 05/22/25 19:59 Methylprednisolone Sodium Succinate (Solu-medROL 125MG) 125 mg Q6H IVP 04/23/25 08:00 05/23/25 07:59 Hold 04/25/25 09:45 125 MG Metoprolol Succinate (TopROL XL) 50 mg AM PO 04/25/25 09:00 05/25/25 08:59 04/25/25 09:45 50 MG Ondansetron HCl (zoFRAN 4MG INJ) 4 mg Q6H PRN IV NAUSEA/VOMITING 04/22/25 20:00 05/22/25 19:59 04/22/25 20:10 4 MG Pantoprazole Sodium (PROTonix 40MG INJ) 40 mg DAILY IVP 04/24/25 10:00 05/24/25 09:59 04/27/25 09:05 40 MG Potassium Chloride 100 ml @ 100 mls/hr AD PRN IV POTASSIUM PROTOCOL 04/22/25 20:00 05/22/25 19:59 Potassium Chloride (K-Dur/Klor-Con 20meq) 20 meq AD PRN PO POTASSIUM PROTOCOL 04/22/25 20:00 05/22/25 19:59 Potassium Chloride (KCl 10% Elixir 20meq/15ml) 20 meq AD PRN PO POTASSIUM PROTOCOL 04/22/25 20:00 05/22/25 19:59 Pramipexole Dihydrochloride (miraPEX 0.25MG TAB) 0.5 mg HS PO 04/24/25 21:00 05/24/25 20:59 04/25/25 21:55 0.5 MG Pregabalin (IOLato11II) 75 mg BID PO 04/24/25 21:00 04/24/25 14:49 DC Sodium Chloride 500 ml @ 0 mls/hr Q0M IV 04/25/25 11:00 05/25/25 10:59 Sodium Zirconium Cyclosilicate (Lokelma 10gm Powder) 10 gm TID PO 04/23/25 21:00 04/23/25 14:11 DC Tramadol HCl (UltRAM) 50 mg Q6H PRN PO MODERATE PAIN (4-6) 04/24/25 22:30 04/29/25 22:29 04/25/25 02:32 50 MG Trimethoprim/ Sulfamethoxazole (BactRIM DS) 1 tab BID PO 04/25/25 21:00 04/26/25 14:50 DC 04/25/25 21:51 1 TAB Vancomycin HCl 250 ml @ 125 mls/hr Q12H IV 04/24/25 23:00 04/25/25 12:36 DC 04/25/25 11:43 125 MLS/HR Vancomycin HCl 250 ml @ 125 mls/hr Q12H IV 04/26/25 15:30 05/06/25 15:29 04/27/25 02:43 125 MLS/HR Vancomycin HCl (Vancomycin Protocol) 1 each AD IV 04/24/25 10:30 04/25/25 12:36 DC Vancomycin HCl (Vancomycin Protocol) 1 each AD IV 04/26/25 15:00 05/10/25 14:59 Venlafaxine HCl (EffEXOR XR 37.5mg CAP) 37.5 mg DAILY PO 04/24/25 16:00 05/24/25 15:59 04/25/25 09:45 37.5 MG Venlafaxine HCl (EffEXOR XR 37.5mg CAP) 37.5 mg DAILY PO 04/25/25 09:00 04/24/25 14:50 DC DIAGNOSTICS / RADIOLOGY: PATIENT: LUCÍA CATALAN MR#: [id number] : 1970 SEX: F AGE: 54 LOCATION: 2C ORDER 07 STATUS: ADM IN REPORT#: [id number] SERVICE 06 REASON: bacteremia mrsa ORDERING PHYSICIAN: EDNA SOARES MD PROCEDURE: ECHO CMP - ECHO 2-D COMPLETE APPROVED REPORT EXAM: Two-dimensional and M-mode echocardiogram with Doppler and color Doppler. Study Details: HTN ,HLD ,Diabt M INDICATION ICD: Bacteremia R78.81 mrsa 2D Dimensions RVDd 4.4 cm LVEF(%) 47.5 (>50%) LVED Vol(simp.) 143.2 mL IVSd 0.8 (0.7-1.1cm) FS(%) 24 % LVES Vol(simp.) 67.2 mL LVDd 4.9 (3.8-5.6cm) LA (2D) 3.7 (1.6-4.0cm) LVEF(%, simp.) 53 % PWd 1.0 (0.7-1.1cm) Ao Root(2D) 3.0 (2.0-3.7cm) LA ESV INDEX (4CH) 62.00 mL/m2 IVSs 1.0 cm LVOT diam 2.1 (1.8-2.4cm) LA ESV INDEX (2CH) 33.87 mL/m2 LVDs 3.7 (2.5-4.0cm) IVC diam 2.1 cm LA ESV INDEX (BP) 35.75 mL/m2 PWs 1.4 cm Deformation Strain Apical 4 -20.3 % Apical 2 -11.6 % Apical 3 -11.7 % Global Strain -14.5 % M-Mode Dimensions LA (MM) 4.5 (1.6-4.0cm) Ao Root(MM) 2.9 (2.0-3.7cm) Aortic Valve AoV Vmax 1.6 m/s Ao Peak GR 10.2 mmHg LVOT Vmax 0.9 m/s AoV VTI 0.4 m Ao Mean GR 5.3 mmHg LVOT VTI 0.26 m CHRIS (VMAX) 1.91 cm2 CHRIS (VTI) 2.0 cm2 Mitral Valve MV E Vmax 85.5 cm/s DECEL Time 223 ms MV A Vmax 54.9 cm/s E/A ratio 1.6 TDI E/E' Medial 9.1 E/E' Lateral 6.8 Medial E' Peak V 9.42 cm/s Lateral E' Peak V 12.66 cm/s Pulmonary Valve PV Vmax 1.0 m/s PV VTI 0.31 m PV Mean GR 2.4 mmHg PV Peak GR 4.1 mmHg Tricuspid Valve TR Vmax 2.3 m/s RVSP 21.3 mmHg TR Peak GR 21.3 mmHg Left Ventricle The left ventricle is normal size. No regional wall motion abnormalities noted. There is normal left ventricular wall thickness. LVEF is 55-60%. Stage I diastolic dysfunction. Right Ventricle The right ventricle is mildly dilated. The right ventricular systolic function is normal. Atria The left atrium size is normal. The interatrial septum is intact with no evidence for an atrial septal defect. The right atrium size is normal. Aortic Valve The aortic valve is normal in structure. Aortic valve is trileaflet. No aortic regurgitation is present. There is no aortic valvular stenosis. Mitral Valve The mitral valve is mildly thickened. Mitral regurgitation is trace. There is no mitral valve stenosis. Tricuspid Valve The tricuspid valve is normal in structure. Mild tricuspid regurgitation. Pulmonic Valve The pulmonary valve is normal in structure. There is no pulmonic valvular regurgitation. Great Vessels The aortic root is normal in size. The ascending aorta is normal in size. IVC is dilated and collapses >50% with inspiration. Pericardium no pericardial effusion. Conclusion LVEF is 55-60%. Stage I diastolic dysfunction. No regional wall motion abnormalities noted. Mitral regurgitation is trace. Mild tricuspid regurgitation. The ascending aorta is normal in size. DICTATED BY: BELL GOODMAN MD DATE: 04/27/25 0830 ELECTRONICALLY SIGNED BY: BELL GOODMAN MD DATE: 04/27/25 1323 PATIENT: LUCÍA CATALAN MR#: [id number] : 1970 SEX: F AGE: 54 LOCATION: [facility] ORDER 1159 STATUS: ADM IN REPORT#: [id number] SERVICE 1151 REASON: ALTERED MENTAL STATUS ORDERING PHYSICIAN: CORY PIMENTEL MD PROCEDURE: HEAD WO - CT HEAD/BRAIN W/O CONTRAST EXAM: Non-contrast CT examination of the Brain CLINICAL HISTORY: Altered mental status. TECHNIQUE: Thin collimated axial CT images of the brain were obtained with sagittal and coronal reformatted images also submitted. CT scan done according to ALARA (As Low as Reasonably Achievable). CONTRAST USED: None. COMPARISON: CT dated 03/31/23. FINDINGS: No acute intracranial abnormality is present. No acute cortical infarction, hemorrhage, mass or mass effect. No hydrocephalus or abnormal extra-axial fluid collections. The posterior fossa is unremarkable. The skull base and calvarium are intact. The included portions of the paranasal sinuses and mastoid air cells are clear. IMPRESSION: No acute intracranial abnormality is present. /[place] DICTATED BY: MARISELA MCDONOUGH MD DATE: 04/27/25902 ELECTRONICALLY SIGNED BY: MARISELA MCDONOUGH MD DATE: 04/27/25902 PATIENT: LUCÍA CATALAN MR#: [id number] : 1970 SEX: F AGE: 54 LOCATION: 2CH ORDER 8 STATUS: ADM IN REPORT#: [id number] SERVICE 7 REASON: low O2 sat ORDERING PHYSICIAN: KALI ALBERT MD PROCEDURE: CXR1VW - CHEST 1VW EXAM: CR Chest, 1 View. CLINICAL HISTORY: low O2 sat COMPARISON: Radiograph dated October 20, 2024 FINDINGS: LUNGS: The lungs show no infiltrate or other acute finding. PLEURAL SPACES: No pleural effusion or pneumothorax. MEDIASTINUM: Cardiac size and mediastinal contours within normal limits. BONES: No aggressive appearing osseous lesion seen. IMPRESSION: No acute cardiopulmonary pathology is evident. /[place] DICTATED BY: BROOKLYN LOPEZ Jr., MD DATE: 04/26/252106 ELECTRONICALLY SIGNED BY: BROOKLYN LOPEZ Jr., MD DATE: 04/26/252106 ASSESSMENT: Acute hypoxic hypercapnic respiratory failure, not POA AMS due to suspected steroid induced psychosis or hepatic encephalopathy, not POA Gram positive bacteremia Hyperammonemia due to cirrhosis Intractable low back pain due to spinal stenosis POA 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 POA Acute urinary tract infection due to MRSA POA Hypervolemic hyponatremia POA Chronic anemia POA Hyponatremia POA Acute kidney injury on renal insufficiency POA Hyperglycemia due to uncontrolled diabetes POA Hypocalcemia POA Cirrhotic liver with splenomegaly consistent with portal hypertension per CT POA Esophageal varices Renal parenchymal disease per CT POA Hypothyroidism POA Hypocalcemia POA Hyperlipidemia POA Hypertension POA Anxiety disorder POA Depression POA Restless leg syndrome POA Suspected obstructive sleep apnea untreated POA Morbid obesity POA PLAN: Acute hypoxic hypercapnic respiratory failure Initiate BIPAP for ventilatory support; monitor ABGs and respiratory rate. Start dexmedetomidine drip for sedation to improve BIPAP compliance. Transfer to ICU for close respiratory and hemodynamic monitoring. Altered Mental Status due to Hepatic Encephalopathy or steroids induced psychosis Start lactulose 30 mg TID Monitor ammonia levels, mental status, and signs of worsening encephalopathy. Discontinue or hold steroids Monitor neuro status and reassess mental status regularly with steroid adjustments. Intractable lower back pain Continue multimodal pain management: acetaminophen, topical agents, consider gabapentin if neuropathic. Currently on dilaudid CT lumbar spine ESR elevated Thrombocytopenia due to ITP Monitor CBC daily; trend platelets. Rule out DIC, splenic sequestration (cirrhosis-related), and medication-induced causes. Avoid NSAIDs, hematology consult Currently on solu medrol 125mg q6 . Acute UTI Currently on rocephin Monitor for signs of urosepsis Encourage hydration and bladder care Hyponatremia Treat underlying hyperglycemia; avoid rapid sodium correction. Monitor serum Na closely; consider fluid restriction if dilutional. Cirrhosis with portal hypertension Monitor for decompensation: encephalopathy, ascites, variceal bleeding. Consider beta sergio for variceal prophylaxis. Monitor LFTs, INR, and ammonia Her MELD- Na score is 24 points, 14-15% estimated 90 day mortality Hyperglycemia (Uncontrolled Diabetes) Start basal/bolus insulin regimen; monitor blood glucose QID. Educate on diet and insulin compliance; monitor for DKA if concern. Correct electrolytes accordingly. Chronic anemia Monitor trends; assess for iron/B12/folate deficiency. Avoid transfusion unless symptomatic or Hgb <7. GI consult We will admit patient in medical telemetry We will start on consistent carb diet We will start on LR at 100 x 2 bags We will start patient on Rocephin 1 g IV b.i.d. for empiric coverage We will start on Famotidine 20 mg p.o. daily for GI prophylaxis We will replace electrolytes as needed per protocol We will start on insulin sliding scale AC & HS with hypoglycemia protocol We will add prn medication for fever,pain,cough ,nausea and vomiting We will reconcile home meds once medlist available We will seek Hematology consultation We will request labs in am Further orders to follow depending on above results Case discussed with attending physician and came up with above treatment and plan of care. ATTESTATION BY PHYSICIAN I have seen and examined the patient. I reviewed the documentation, medical decision making, and treatment plan as noted by the resident provider above. I agree with the findings and plan of care. Cory Pimentel MD, NIHITHA MD Apr 27, 2025 14:55
[2025-04-28] VITALS (56 sets, daily range): BP systolic 109–167; BP diastolic 44–79; PULSE 52–74; RESP 11–35; TEMP 97.9–98.8; O2SAT 96–100
--- NOTE | 2025-04-28 01:10 | PN ---
INFECTIOUS DISEASE FOLLOWUP NOTE DATE OF SERVICE: 04/27/2025. SUBJECTIVE: The patient is seen and examined at bedside. No fever, no chills. No nausea or vomiting. No bleeding tendency. No joint swelling. Bedbound debility. Tolerating antibiotics. PHYSICAL EXAMINATION: VITAL SIGNS: Temperature 98.7. EYES: No icterus. Pupils equal and reactive. HENT: No oral thrush seen. Moist oral mucosa. NECK: Supple. No JVD or thyromegaly. LUNGS: Good air entry. No rales. No rhonchi. CARDIOVASCULAR SYSTEM: S1 and S2 regular. No murmur heard. ABDOMEN: Full, soft. Bowel sounds are present. CENTRAL NERVOUS SYSTEM: Awake, alert. No focal deficits. SKIN: No rashes, no itchiness. LYMPHATIC: No peripheral lymphadenopathy. BACK: No deformity or pressure ulcer. ASSESSMENT: A 54-year-old female with multiple problems, which include: * Bacteremia. * Sepsis. * Urinary tract infection. * Hydronephrosis. * ____. * Hypothyroidism. * Liver cirrhosis. * Debility. PLAN: * Continue antibiotics. * Continue critical care support. * Continue pain management. * Monitor electrolytes. * Continue GI prophylaxis. * The patient will be followed up closely. TID: [id number] RECEIPT: [id number]
[2025-04-28 02:37] LABS: IMMATURE GRANULOCYTE ABSOLUTE 0.33 K/uL (0-1); NUCLEATED RED BLOOD CELLS 0.6 % (0.0-0.19); PLATELET COUNT (AUTO) 21 K/uL (130-400); RED BLOOD CELL COUNT(AUTO) 3.96 MIL/uL (4.00-5.50); RED CELL DISTRIBUTION WIDTH 20.9 % (11.0-15.5); WHITE BLOOD COUNT (AUTO) 7.0 K/uL (4.8-10.8)
[2025-04-28 02:52] LABS: ASPARTATE AMINOTRANSFERASE 50.0 U/L (10-37); CREATININE 0.9 mg/dL (0.5-1.0); GLOMERULAR FILTR. RATE CALC 76.0 mL/min (>90); GLUCOSE,RANDOM 155.0 mg/dL (70-105); SODIUM SERUM 152.0 mmol/L (136-145); TOTAL PROTEIN, SERUM 6.7 g/dL (6.0-8.3); UREA NITROGEN, BLOOD 39.0 mg/dL (7-18); VANCOMYCIN TROUGH 20.2 UG/ML (10.0-20.0)
--- NOTE | 2025-04-28 08:14 | HMCIMG ---
EXAMINATION: ULTRASOUND OF THE RETROPERITONEUM. CLINICAL HISTORY: To assess hydronephrosis COMPARISON: Ultrasound dated 04/23/2025. TECHNIQUE: Real-time grayscale and color ultrasound images of the kidneys. FINDINGS: The kidneys are normal in caliber; the right kidney measures 12.1 x 6.8 x 6.1 cm in its craniocaudal, AP, and transverse dimensions, and the left kidney measures 13.2 x 6.3 x 7 cm in its craniocaudal, AP, and transverse dimensions. There is normal renal cortical thickness, and normal cortical echogenicity. There is no renal calculus bilaterally. Moderate right hydronephrosis present. The urinary bladder is distended with normal wall thickness (measuring 2 mm).There are no calculi in urinary bladder. IMPRESSION: Increased moderate right hydronephrosis. /Kushal
--- NOTE | 2025-04-28 08:48 | PN ---
LOCATION: 219. SUBJECTIVE: The patient moved to the ICU. She is critically ill, septic, urinary tract infection, cirrhosis, ITP, not bleeding actively, bedbound. PHYSICAL EXAMINATION: GENERAL: Shows an elderly woman. VITAL SIGNS: Blood pressure 128/57, pulse 57, respirations 20. HEENT: Benign. CHEST: Clear. ABDOMEN: Soft. EXTREMITIES: Show no edema. NEUROLOGIC: Awake. IMPRESSION: Bacteremia, sepsis, urinary tract infection, hydronephrosis, hypothyroidism, cirrhosis, lupus and ITP. PLAN: Continue broad-spectrum antibiotics, taper the steroids. If IgG has not been given, I would give IgG. TID: [id number] RECEIPT: [id number]
--- NOTE | 2025-04-28 09:31 | PN ---
SUBJECTIVE: A 54-year-old female with a history of lupus. The patient initially presented and found to have failure to thrive. She has had acute on chronic renal failure in the hospital. The patient also with sleep apnea, remains on the BiPAP. The patient with multiple electrolyte abnormalities including hypernatremia. She remains on the D5W and she is being seen as a followup visit for all of the above. REVIEW OF SYSTEMS: GENERAL: The patient is feeling weak and tired. HEENT: No change in vision. No change in hearing. CARDIOVASCULAR: There is no current chest pain or palpitations. PULMONARY: As described above. GASTROINTESTINAL: The patient is tolerating some amount of diet. MUSCULOSKELETAL: Complains of weakness. OBJECTIVE: VITAL SIGNS: Blood pressure 128/57, pulse 50, afebrile. GENERAL: Chronically ill female, much older than appearing. HEENT: Head is atraumatic. Pupils are equal, roving to light. Oropharynx is without exudate. Nares are clear. NECK: There is no JVP. No thyromegaly. CARDIOVASCULAR: Regular. There is no S3, S4, gallop. LUNGS: Coarse with equal thoracic movement. ABDOMEN: Soft, nondistended, and nontender. EXTREMITIES: Reveal no clubbing, no cyanosis. NEUROLOGICAL: She is awake. She is alert. LABORATORY DATA: Hemoglobin 10, hematocrit 31, white cell count 7000. Sodium 152, BUN 39, creatinine 0.9. IMPRESSION: * Acute renal failure. * Hypernatremia. * Lupus. * Sleep apnea. PLAN: The patient's creatinine has stabilized. The patient with significant hypernatremia related to dehydration. The patient continues with the D5W. She is encouraged with her oral intake. She does have significant sleep apnea. Workup is ongoing per pulmonary service. All labs can be repeated in the morning. Electrolytes have all been aggressively repleted. TID: [id number] RECEIPT: [id number]
--- NOTE | 2025-04-28 09:44 | PN ---
[facility] PROGRESS NOTE Date Patient Seen: Apr 28, 2025 Time of Visit: 09:44 Supervising Physician: Osmin Vora MD Primary Care Physician: Josiah Fernando MD Outpatient Specialists: [ ] Inpatient Consults: Dr Lepe, DR Madrigal, DR Ireland, DR Leung, Dr Figueroa PROBLEM LIST: MRSA bacteremia POA Acute hypoxic hypercarbic respiratory failure on venous blood draw on 04/26/2025, resolved AMS due to suspected steroid induced psychosis or hepatic encephalopathy, not POA, resolved Hyperammonemia due to cirrhosis Intractable low back pain due to spinal stenosis POA 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 POA Acute urinary tract infection due to complicated cystitis 2/2 MRSA POA moderate right hydronephrosison US 04/24/25 w/ urinary bladder retention s/p FC Hypervolemic hyponatremia POA Chronic anemia POA Hyponatremia POA Acute kidney injury on renal insufficiency POA Hyperglycemia due to uncontrolled diabetes POA Hypocalcemia POA Cirrhotic liver with splenomegaly consistent with portal hypertension per CT POA Liver Lesion lesion that measures 1.3 x 1.1 x 1.7 cm in the right lobe. on US Esophageal varices Renal parenchymal disease per CT POA Hypothyroidism POA Hypocalcemia POA Hyperlipidemia POA Hypertension POA Anxiety disorder POA Depression POA Restless leg syndrome POA Suspected OHS POA Morbid obesity POA INTERVAL HISTORY: No major overnight events. Patient is off Precedex and encephalopathy has resolved. She is calm and cooperative. Alert and oriented. Hemodynamically stable saturating 96% on 2 L via nasal cannula heart rate in the 70s respiratory rate of 18 unlabored and afebrile. Urine output 2.5 L in the last 24 hours. WBCs of 7 H&H is 10/31.8 platelet count of 21 K. We will follow Hematology recommendations in regards to ITP possible IVIG administration. Sodium 152 potassium 4.2 chloride 116 creatinine of 0.9 total bili 1.2. Patient continues on D5 water at 100 mL/hour. REVIEW OF SYSTEMS: General: No malaise or fever. Neurological: No fainting episodes or seizures. HEENT: No nasal congestion or nasal secretion. Respiratory: No cough, shortness of breath, or wheezing Cardiac: No chest pain or palpitations. Gastrointestinal: No vomiting or diarrhea. Genitourinary: No dysuria hematuria. Skin: No rashes or lesions. Hematological: No bruises or bleeding. Musculoskeletal: No joint pains or arthralgias. Psychiatric: No depression or panic attacks. PHYSICAL EXAM: GENERAL: Patient is awake alert and oriented x3. Cooperative and calm. HEENT: EOMI, Sclera non icteric, moist mucosa NECK: Supple, no JVD, trachea midline LUNGS: Clear breath sounds bilaterally. No wheezes HEART: Regular rate and rhythm. Normal S1 and S2, without murmurs ABD: Abdomen soft, nontender. Bowel sounds present EXT: No clubbing cyanosis or edema NEURO: Alert and oriented to person, follows commands Vital Signs (last 8hr) Date Time Temp Pulse Resp B/P (MAP) Pulse Ox O2 Delivery O2 Flow Rate FiO2 04/28/25 08:00 100 Nasal Cannula* 3 N/A Bi-PAP+ 04/28/25 07:36 57 20 N/Cannula Low lpm 3.0 04/28/25 07:30 52 13 30 04/28/25 05:27 53 13 128/57 (80) 98 04/28/25 05:12 55 15 124/53 (76) 98 04/28/25 05:00 58 12 98 04/28/25 04:57 54 14 120/50 (73) 96 04/28/25 04:42 54 13 120/54 (76) 96 04/28/25 04:27 54 13 118/51 (73) 96 04/28/25 04:12 55 13 117/50 (72) 95 04/28/25 04:00 98 Bi-PAP+ 30 04/28/25 03:42 98.4 56 13 114/56 (75) 96 04/28/25 03:27 59 14 119/48 (71) 95 04/28/25 03:12 59 13 109/55 (73) 95 04/28/25 02:57 57 12 118/49 (72) 96 04/28/25 02:42 57 12 112/49 (70) 96 04/28/25 02:27 57 14 116/44 (68) 97 04/28/25 02:12 56 14 130/58 (82) 97 04/28/25 01:57 58 12 130/48 (75) 96 04/28/25 01:46 60 14 BIPAP 30 04/28/25 01:45 58 14 30 LABS: Hematology Labs: Test 04/28/25 02:28 Range/Units White Blood Count 7.0 # 4.8-10.8 K/uL Red Blood Count 3.96 L 4.00-5.50 MIL/uL Hemoglobin 10.0 L 12.0-16.0 g/dL Hematocrit 31.8 L 36-48 % Mean Corpuscular Volume 80.3 79-99 fL Mean Corpuscular Hemoglobin 25.3 L 27.0-33.0 pg Mean Corpuscular Hemoglobin Concent 31.4 L 32.0-36.0 g/dL Red Cell Distribution Width 20.9 H 11.0-15.5 % Platelet Count 21 L 130-400 K/uL Mean Platelet Volume 7.5-10.5 fL Immature Granulocyte % (Auto) 4.7 H 0-1 % Neutrophils (%) (Auto) 83.8 H 40.0-77.0 % Lymphocytes (%) (Auto) 5.2 L 21.0-51.0 % Monocytes (%) (Auto) 5.6 3.0-13.0 % Eosinophils (%) (Auto) 0.1 0.0-8.0 % Basophils (%) (Auto) 0.6 0.0-5.0 % Neutrophils # (Auto) 5.8 1.8-7.7 K/uL Lymphocytes # (Auto) 0.4 L 1.0-4.8 K/uL Monocytes # (Auto) 0.4 0.1-1.0 K/uL Eosinophils # (Auto) 0.01 0.00-0.70 K/uL Basophils # (Auto) 0.04 0.00-0.20 K/uL Absolute Immature Granulocyte (auto 0.33 0-1 K/uL Nucleated Red Blood Cells 0.6 H 0.0-0.19 % Chemistry Labs: Test 04/28/25 05:27 04/28/25 02:28 04/27/25 04:42 Range/Units Whole Blood Glucose 160 H 70-110 MG/DL Sodium Level 152 H 136-145 mmol/L Potassium Level 4.2 3.5-5.1 mmol/L Chloride Level 116 H 101-111 mmol/L Carbon Dioxide Level 31 21-32 mmol/L Blood Urea Nitrogen 39 H 7-18 mg/dL Creatinine 0.9 0.5-1.0 mg/dL Glomerular Filtration Rate Calc 76 >90 mL/min Random Glucose 155 #H 70-105 mg/dL Total Calcium 8.9 8.5-10.1 mg/dL Total Bilirubin 1.2 H 0.2-1.0 mg/dL Aspartate Amino Transf (AST/SGOT) 50 H 10-37 U/L Alanine Aminotransferase (ALT/SGPT) 49 12-78 U/L Alkaline Phosphatase 197 H 50-136 U/L C-Reactive Protein, Quantitative 42.70 H 0.5-3.0 mg/L Total Protein 6.7 6.0-8.3 g/dL Albumin 1.9 L 3.5-5.0 g/dL Phosphorus Level 2.6 2.5-4.9 mg/dL Magnesium Level 2.00 1.80-2.40 mg/dL Procalcitonin 1.34 H 0.05-0.5 ng/mL DIAGNOSTICS / RADIOLOGY RESULTS: [ ] PLAN Pending MRI of the lumbar region to rule out osteomyelitis per ID recs Patient was bladder scanned with 288 mL in the bladder, renal ultrasound showed increased right hydronephrosis. Place Nolasco catheter Follow ID recommendations Discontinue Precedex Keep BiPAP PRN and at HS Downgraded to the medical floor NEURO: Minimize central acting medications as possible. Fall Precautions. Well lighted room through the day and minimize interruptions through the night to prevent acute delirium. PULMONARY: Supplemental 02 as needed Titrate Fio2 to keep Spo2 > or = 90% DuoNebs and CPT as needed IS hourly while awake for pulmonary hygiene Out of bed to chair as tolerated VAP Bundle Vent/BIPAP Settings: [ ] Driving pressure: [ ] P Plat: [ ] Static C: [ ] Static R: [ ] P/F Ratio: [ ] CARDIOVASCULAR: Follow hemodynamics. Titrate vasopressor to keep MAP >65 or systolic blood pressure >95mmHg DIPS: None LINES: PIV GI & NUTRITION: Continue nutritional support Aspirations precautions Prokinetic agents and laxatives as needed KIDNEYS & ELECTROLYTES: Strict monitoring of intake and output Daily weights Avoid nephrotoxic agents Monitor electrolytes and replace as needed Goal urine output of 30mL/hr or 0.5mL/kg/hr Urine output: [ ] Fluid Balance: [ ] ENDOCRINE: Maintain blood glucose between 100-180 at all times. Insulin sliding scale for blood glucose management INFECTIOUS DISEASE: Trend temperature. [place]-culture if febrile. Micro: [ ] Urine culture-MRSA Blood culture-MRSA Antibiotics: Vancomycin HEMATOLOGY & COAGULATION: Monitor H&H. Keep Hgb > 7 Transfuse 1 unit of PRBC for Hgb < 7 Transfuse 1 pack of platelets of platelets < 20, 000 Watch for any signs and symptoms of bleeding SKIN: Pressure ulcer prevention per facility protocol Rehab: PT/OT Prophylaxis: GI: [ Protonix] DVT: SCDs for now no anticoagulation due to thrombocytopenia Code Status: Full Resuscitation Disposition: Medical-surgical Other: Total patient care time exceeds 35 minutes excluding all procedures. Case was discussed and seen with my supervising physician. The above plan was formulated and agreed upon. ATTESTATION BY PHYSICIAN I have evaluated the patient chart, medical records, and spoke with appropriate staff. I reviewed the documentation, medical decision making, and treatment plan as noted by the mid-level provider above. I agree with the findings and plan of care. Osmin Vora MD, [facility] Apr 28, 2025 09:44
--- NOTE | 2025-04-28 12:56 | PN ---
GASTROENTEROLOGY PROGRESS NOTE Date of Visit: Apr 28, 2025 Time of Visit: 12:56 Events / Notes: [ ] Review of Systems: CONSTITUTIONAL: No malaise or change in sensation of wellbeing. ENMT: No rhinorrhea, otorrhea, sinus pain, ear ache. CARDIOVASCULAR: No angina, palpitations, orthopnea or paroxysmal dyspnea. RESPIRATORY: No SOB. GASTROINTESTINAL: No abdominal pain, nausea, vomiting, diarrhea, hematemesis, melena or change in the patient's habitual bowel movements consistency/number. GENITOURINARY: No dysuria, hematuria or change in bladder continence. MUSCULOSKELETAL: No new muscle pain or decrease in muscular strength. No new joint swelling, redness or tenderness. SKIN: No new rash. Physical Exam: GEN: Awake, alert, oriented in person, time and place, and in no acute distress. HEENT: No sinus tenderness. Tympanic membranes were not examined. No rhinorrhea. Oral pharyngeal mucosa is pink, moist and within normal limits. Neck is supple with no cervical lymphadenopathy, thyromegaly or JVD. CHEST: Inspection, palpation and percussion of the chest were unremarkable. Lung auscultation revealed normal breath sounds bilaterally. CARDIAC: PMI is within normal limits. Heart sounds are regular. Normal S1, S2. No gallop or murmur. ABD: Soft, non-tender and not distended. No peritoneal signs on palpation. No organomegaly. Normal bowel sounds. EXT: No cyanosis or clubbing. No edema. SKIN: Intact. No rashes. JOINTS: No evidence of synovitis or acute arthritis. NEURO: Alert and oriented to name, place and person. Cranial nerve examination is unremarkable. No focal motor deficits. Normal speech. Gait is normal. Strength is normal. Vital Signs (last 8hr) Date Time Temp Pulse Resp B/P (MAP) Pulse Ox O2 Delivery O2 Flow Rate FiO2 04/28/25 12:00 98.8 04/28/25 08:00 100 Nasal Cannula* 3 N/A Bi-PAP+ 04/28/25 08:00 98.4 04/28/25 07:36 57 20 N/Cannula Low lpm 3.0 04/28/25 07:30 52 13 30 04/28/25 05:27 53 13 128/57 (80) 98 04/28/25 05:12 55 15 124/53 (76) 98 04/28/25 05:00 58 12 98 04/28/25 04:57 54 14 120/50 73 96 Laboratory: [ ] Laboratory: Test 04/28/25 11:33 04/28/25 02:28 04/27/25 04:42 04/27/25 03:42 Range/Units Whole Blood Glucose 144 H 70-110 MG/DL White Blood Count 7.0 # 4.8-10.8 K/uL Red Blood Count 3.96 L 4.00-5.50 MIL/uL Hemoglobin 10.0 L 12.0-16.0 g/dL Hematocrit 31.8 L 36-48 % Mean Corpuscular Volume 80.3 79-99 fL Mean Corpuscular Hemoglobin 25.3 L 27.0-33.0 pg Mean Corpuscular Hemoglobin Concent 31.4 L 32.0-36.0 g/dL Red Cell Distribution Width 20.9 H 11.0-15.5 % Platelet Count 21 L 130-400 K/uL Mean Platelet Volume 7.5-10.5 fL Immature Granulocyte % (Auto) 4.7 H 0-1 % Neutrophils (%) (Auto) 83.8 H 40.0-77.0 % Lymphocytes (%) (Auto) 5.2 L 21.0-51.0 % Monocytes (%) (Auto) 5.6 3.0-13.0 % Eosinophils (%) (Auto) 0.1 0.0-8.0 % Basophils (%) (Auto) 0.6 0.0-5.0 % Neutrophils # (Auto) 5.8 1.8-7.7 K/uL Lymphocytes # (Auto) 0.4 L 1.0-4.8 K/uL Monocytes # (Auto) 0.4 0.1-1.0 K/uL Eosinophils # (Auto) 0.01 0.00-0.70 K/uL Basophils # (Auto) 0.04 0.00-0.20 K/uL Absolute Immature Granulocyte (auto 0.33 0-1 K/uL Nucleated Red Blood Cells 0.6 H 0.0-0.19 % Sodium Level 152 H 136-145 mmol/L Potassium Level 4.2 3.5-5.1 mmol/L Chloride Level 116 H 101-111 mmol/L Carbon Dioxide Level 31 21-32 mmol/L Blood Urea Nitrogen 39 H 7-18 mg/dL Creatinine 0.9 0.5-1.0 mg/dL Glomerular Filtration Rate Calc 76 >90 mL/min Random Glucose 155 #H 70-105 mg/dL Total Calcium 8.9 8.5-10.1 mg/dL Total Bilirubin 1.2 H 0.2-1.0 mg/dL Aspartate Amino Transf (AST/SGOT) 50 H 10-37 U/L Alanine Aminotransferase (ALT/SGPT) 49 12-78 U/L Alkaline Phosphatase 197 H 50-136 U/L C-Reactive Protein, Quantitative 42.70 H 0.5-3.0 mg/L Total Protein 6.7 6.0-8.3 g/dL Albumin 1.9 L 3.5-5.0 g/dL Vancomycin Level Trough 20.2 #H 10.0-20.0 UG/ML Phosphorus Level 2.6 2.5-4.9 mg/dL Magnesium Level 2.00 1.80-2.40 mg/dL Procalcitonin 1.34 H 0.05-0.5 ng/mL Blood Gas Specimen Type Arterial Arterial Blood pH 7.430 7.350-7.450 Arterial Blood Partial Pressure CO2 40 32-45 mmHg Arterial Blood Partial Pressure O2 160.4 H 83.0-108.0 mmHg Arterial Blood HCO3 25.8 21.0-28.0 mmol/L Arterial Blood Oxygen Saturation 99.1 H 94.0-98.0 % Arterial Blood Base Excess 1.5 -2.0-3.0 mmol/L Blood Gas Temperature 37.0 35.5-37.0 CELSIUS Blood Gas Respiration Rate 12.0 min. Blood Gas Vent Mode BIPAP,12,6 ROOM AIR FiO2 40.0 % Blood Gas Specimen Comment DAVID,RN YASMIN Test 04/26/25 18:40 Range/Units Hemoglobin (Blood Gas) 10.5 L 12.0-16.0 g/dL Sodium (Blood Gas) 144 136-145 MMOL/L Bedside Potassium (Blood Gas) 3.9 3.4-4.5 MMOL/L Bedside Chloride (Blood Gas) 112 H 98-107 MMOL/L Bedside Glucose (Blood Gas) 297 H 65-95 MG/DL Bedside Ionized Calcium (Blood Gas) 1.33 1.15-1.33 MMOL/L Bedside Lactic Acid (Blood Gas) 1.78 H 0.36-0.75 MMOL/L Current Medications Medications (Trade) Dose Ordered Sig/Roberth Route PRN Reason Start Time Stop Time Status Last Admin Dose Admin Acetaminophen (TYLenol 325MG TAB) 650 mg Q4H PRN PO MILD PAIN (1-3) 04/22/25 20:00 05/22/25 19:59 04/24/25 20:44 650 MG Acetaminophen (TYLenol 325MG TAB) 650 mg Q6H PRN PO TEMPERATURE GREATER THAN 101.5 04/22/25 20:00 05/22/25 19:59 04/23/25 10:02 650 MG Atorvastatin Calcium (LIPItor 20MG) 20 mg HS PO 04/24/25 21:00 05/24/25 20:59 04/25/25 21:51 20 MG Ceftriaxone Sodium 1 gm/ Sodium Chloride 50 ml @ 100 mls/hr BID IV 04/22/25 21:00 04/22/25 19:59 DC Ceftriaxone Sodium (ROCEphine 1G INJ) 1 gm BID IVPB 04/22/25 21:00 04/22/25 20:44 DC Ceftriaxone Sodium (ROCEphine 1G INJ) 1 gm BID IVPB 04/23/25 09:00 04/25/25 12:36 DC 04/25/25 09:44 1 GM Dexmedetomidine/ Sodium Chloride (PRECEdex 200MCG/ 50ML-NS) 200 mcg PROTOCOL IV 04/26/25 12:00 04/26/25 14:54 DC Dexmedetomidine/ Sodium Chloride (PRECEdex 400MCG/ 100ML-NS) 400 mcg PROTOCOL PRN IV ANXIETY/AGITATION 04/26/25 19:30 05/26/25 19:29 04/27/25 23:31 400 MCG Dexmedetomidine/ Sodium Chloride (PRECEdex 400MCG/ 100ML-NS) 400 mcg PROTOCOL STAT IV 04/26/25 14:53 04/26/25 14:58 DC 04/26/25 15:18 400 MCG Dextrose 1,000 ml @ 150 mls/hr Q6H40M IV 04/26/25 12:00 05/26/25 11:59 04/27/25 22:30 75 MLS/HR Dextrose (D50w) 50 ml AD PRN IV HYPOGLYCEMIA PROTOCOL 04/22/25 20:00 05/22/25 19:59 Famotidine (Pepcid 20mg Tab) 20 mg DAILY PO 04/23/25 09:00 04/24/25 09:48 DC 04/23/25 09:33 20 MG Gabapentin (NEURontin 300 MG CAP) 300 mg BID PO 04/24/25 21:00 04/28/25 09:10 DC 04/25/25 21:51 300 MG Glucagon (Glucagon 1mg Kit) 1 mg AD PRN IM HYPOGLYCEMIA PROTOCOL 04/22/25 20:00 05/22/25 19:59 Heparin Sodium (Porcine) (HEParin 5,000 UNIT VIAL) 5,000 unit Q8H SQ 04/25/25 09:00 04/25/25 08:40 DC Hydromorphone HCl (DiLAUDid 0.5MG INJ) 0.5 mg BIDPRN PRN IVP SEVERE PAIN (7-10) 04/25/25 19:00 04/30/25 18:59 04/25/25 22:51 0.5 MG Hydromorphone HCl (DiLAUDid 0.5MG INJ) 0.5 mg Q6H PRN IVP SEVERE PAIN (7-10) 04/23/25 14:00 04/25/25 08:25 DC 04/25/25 04:14 0.5 MG Insulin Glargine (LANtus 100 UNITS/ML 10 ML VIAL) 10 units HS SQ 04/24/25 21:00 04/24/25 16:57 DC Insulin Glargine (LANtus 100 UNITS/ML 10 ML VIAL) 10 units ONCE STAT SQ 04/24/25 10:54 04/24/25 11:00 DC 04/24/25 11:19 10 UNITS Insulin Glargine (LANtus 100 UNITS/ML 10 ML VIAL) 15 units HS SQ 04/24/25 21:00 04/24/25 17:06 DC Insulin Glargine (LANtus 100 UNITS/ML 10 ML VIAL) 30 units ONCE SQ 04/24/25 17:00 04/25/25 06:19 DC 04/24/25 18:16 30 UNITS Insulin Glargine (LANtus 100 UNITS/ML 10 ML VIAL) 50 units DAILY SQ 04/26/25 09:00 05/26/25 08:59 04/28/25 08:46 50 UNITS Insulin Human Regular (humuLIN R 100 UNIT/ML 3ML) 5 unit TIDAC SQ 04/24/25 17:00 04/24/25 17:06 DC Insulin Human Regular (humuLIN R 100 UNIT/ML 3ML) 8 unit TIDAC SQ 04/28/25 07:30 05/28/25 07:29 Insulin Human Regular (humuLIN R 100 UNIT/ML 3ML) 10 unit TIDAC SQ 04/24/25 17:00 04/25/25 06:17 DC 04/25/25 06:15 10 UNIT Insulin Human Regular (humuLIN R 100 UNIT/ML 3ML) 15 unit TIDAC SQ 04/26/25 11:30 04/27/25 20:30 DC Insulin Human Regular (humuLIN R 100 UNIT/ML 3ML) 25 unit TIDAC SQ 04/25/25 07:30 04/26/25 07:58 DC 04/25/25 17:39 25 UNIT Insulin Human Regular (humuLIN R 100 UNIT/ML 3ML) INSULIN SLIDING SCAL... ACHS SQ 04/22/25 21:00 04/24/25 16:16 DC 04/24/25 11:18 8 UNIT Insulin Human Regular (humuLIN R 100 UNIT/ML 3ML) INSULIN SLIDING SCAL... ACHS SQ 04/24/25 16:30 04/25/25 14:09 DC 04/25/25 11:57 16 UNIT Insulin Human Regular (humuLIN R 100 UNIT/ML 3ML) INSULIN SLIDING SCAL... ACHS SQ 04/25/25 16:30 05/25/25 16:29 04/27/25 17:06 10 UNIT Insulin Human Regular (humuLIN R 100 UNIT/ML 3ML) INSULIN SLIDING SCAL... Q4H SQ 04/27/25 20:30 04/28/25 09:11 DC 04/28/25 06:00 4 UNIT Lactated Ringer's 1,000 ml @ 100 mls/hr Q10H IV 04/22/25 20:00 04/23/25 10:09 DC 04/23/25 06:00 100 MLS/HR Lactulose (Constulose 20gm/ 30ml Udcup) 30 gm TID PO 04/25/25 11:00 05/25/25 10:59 04/25/25 21:52 30 GM Levothyroxine Sodium (SYNTHroid 125MCG TAB) 125 mcg DAILY@0630 PO 04/25/25 06:30 05/25/25 06:29 Magnesium Sulfate 50 ml @ 0 mls/hr PROTOCOL PRN IV OTHER [SEE ORDER COMMENTS] 04/22/25 20:00 05/22/25 19:59 Methylprednisolone Sodium Succinate (Solu-medROL 125MG) 125 mg Q6H IVP 04/23/25 08:00 04/28/25 09:10 DC 04/25/25 09:45 125 MG Metoprolol Succinate (TopROL XL) 50 mg AM PO 04/25/25 09:00 05/25/25 08:59 04/25/25 09:45 50 MG Ondansetron HCl (zoFRAN 4MG INJ) 4 mg Q6H PRN IV NAUSEA/VOMITING 04/22/25 20:00 05/22/25 19:59 04/22/25 20:10 4 MG Pantoprazole Sodium (PROTonix 40MG INJ) 40 mg DAILY IVP 04/24/25 10:00 05/24/25 09:59 04/28/25 08:35 40 MG Potassium Chloride 100 ml @ 100 mls/hr AD PRN IV POTASSIUM PROTOCOL 04/22/25 20:00 05/22/25 19:59 Potassium Chloride (K-Dur/Klor-Con 20meq) 20 meq AD PRN PO POTASSIUM PROTOCOL 04/22/25 20:00 05/22/25 19:59 Potassium Chloride (KCl 10% Elixir 20meq/15ml) 20 meq AD PRN PO POTASSIUM PROTOCOL 04/22/25 20:00 05/22/25 19:59 Pramipexole Dihydrochloride (miraPEX 0.25MG TAB) 0.5 mg HS PO 04/24/25 21:00 05/24/25 20:59 04/25/25 21:55 0.5 MG Pregabalin ([id number]) 75 mg BID PO 04/24/25 21:00 04/24/25 14:49 DC Sodium Chloride 500 ml @ 0 mls/hr Q0M IV 04/25/25 11:00 05/25/25 10:59 Sodium Zirconium Cyclosilicate (Lokelma 10gm Powder) 10 gm TID PO 04/23/25 21:00 04/23/25 14:11 DC Tramadol HCl (UltRAM) 50 mg Q6H PRN PO MODERATE PAIN (4-6) 04/24/25 22:30 04/29/25 22:29 04/25/25 02:32 50 MG Trimethoprim/ Sulfamethoxazole (BactRIM DS) 1 tab BID PO 04/25/25 21:00 04/26/25 14:50 DC 04/25/25 21:51 1 TAB Vancomycin HCl 250 ml @ 125 mls/hr Q12H IV 04/24/25 23:00 04/25/25 12:36 DC 04/25/25 11:43 125 MLS/HR Vancomycin HCl 250 ml @ 125 mls/hr Q12H IV 04/26/25 15:30 04/28/25 03:13 DC 04/27/25 15:22 125 MLS/HR Vancomycin HCl 250 ml @ 125 mls/hr Q12H IV 04/28/25 15:30 05/08/25 15:29 Vancomycin HCl (Vancomycin Protocol) 1 each AD IV 04/24/25 10:30 04/25/25 12:36 DC Vancomycin HCl (Vancomycin Protocol) 1 each AD IV 04/26/25 15:00 05/10/25 14:59 Venlafaxine HCl (EffEXOR XR 37.5mg CAP) 37.5 mg DAILY PO 04/24/25 16:00 05/24/25 15:59 04/25/25 09:45 37.5 MG Venlafaxine HCl (EffEXOR XR 37.5mg CAP) 37.5 mg DAILY PO 04/25/25 09:00 04/24/25 14:50 DC Diagnostics / Radiology: [COPY/PASTE HERE IF NO REPORTS PLEASE DELETE SECTION] Assessment: Decompensated cirrhosis HTN Esophageal varies Plan: Patient with known cirrhosis however lost to follow-up. Hold off on EGD given no overt GI bleeding and stable hemoglobin We will monitor closely BEHZAD KOCH [employer] Apr 28, 2025 12:56
[2025-04-28 13:41] LABS: CREATININE,URINE RANDOM 27.84 mg/dL (30-135)
--- NOTE | 2025-04-28 15:00 | NUR ---
REPORT REPORT GIVEN TO MALLIKA MARTINES, PT WILL BE TRANSFERRED TO ROOM [id number].
--- NOTE | 2025-04-28 15:20 | PN ---
[facility] PROGRESS NOTE Date of Service: Apr 28, 2025 Time of Service: 14:46 SUBJECTIVE: This is a 54-year-old female with past medical history of undiagnosed obstructive sleep apnea, diabetes type 2, hypertension, hyperlipidemia, hypothyroidism, restless leg syndrome, anxiety disorder,depression, lupus and severe morbid obesity who presents to the ED for complaints of severe low back p ain which started 2 weeks ago and getting worse for the past 2 days and patient reports she is taking prednisone 30mg po daily for her Lupus she said.Patient also reports she was recently seen in this ED for similar complaints and was diagnosed with acute lumbosacral myofascial strain. 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 Urinalysis consistent with urinary tract infection. CT abdomen and pelvis result revealed no acute intra-abdominal or pelvic pathology cirrhotic liver morphology with splenomegaly, consistent with portal hypertension. Bilateral renal cortical thickening may reflect renal parenchymal disease. While in the ER patient received Rocephin 1 g IV, 1 L NS bolus. We will admit patient for further medical management. 04/23/25 Patient was seen and examined at bedside. She was complaining of chest pain early in the morning but her EKG and troponin were normal. Patient says she got liver cirrhosis from taking Tylenol with codeine in the past for a long time. Remarkable labs are Na 129, K 6.4. Cl 98, BUN 44. Cr 1.2 with no anion gap. New EKG shows sinus rhythm with no tall T-waves or shortened QT interval. We will give her a dose of calcium gluconate and lokelma and recheck her labs. we will hold her iv fluids for now. Her urine anion gap is 36.0 mEq/l. Repeat potassium was 4.2 and 4.6. We will order CT lumbar spine and request nephro and cardio consults due to hyponatremia, RTA and cirrhosis with portal hypertension respectively. We will order lupus, complement , anemia panel due to her abnormal labs and h/o SLE. Hematology recommended solu medrol 125 q6. she might need hydrochloroquine upon discharge for SLE 04/24/25 Patient was seen and examined at bedside. She is complaining of widespread generalized body pain with tender points and generalized weakness, her CPK is going up, we will repeat it and start her on pregabalin. Her labs are improving. She had an EGD done last year that showed grade III varices but lost to follow up with TDS. No GI intervention as her Hb is stable. Will start her on vancomycin. Her home meds have been reconciled. She takes venlaflaxine and pramipexole for depression and restless leg syndrome respectively. Her elevated urine anion gap could be due to BALTAZAR or NSAID induced kidney injury but her creatinine is improving. Pending abdominal ultrasound and CT lumbar spine res ults. 04/25/25 Patient was seen and examined. She was observed sitting in a chair but was unable to answer questions appropriately and appeared confused. Ammonia level was elevated at 59; lactulose has been initiated at 30 mL TID. She is currently receiving vancomycin for MRSA identified in the urine. Right upper quadrant ultrasound demonstrated chronic hepatic changes with a hypoechoic lesion in the right lobe of the liver, possibly representing a complex cyst. CT of the lumbar spine revealed moderate lumbar spondylosis and diffuse osteopenia. Her platelet count is 37 and showing slow improvement. Dr. Urias, covering for Dr. Lorenzo, recommended holding solu-medrol for now. If platelet count declines tomorrow, steroids may need to be restarted. Ammonia and additional labs will be rechecked in the morning. 04/26/25 Patient was seen at bedside. Will request a transfer to the ICU due to worsening agitation and hypercapnic respiratory failure requiring BIPAP support.Will order Precedex drip for sedation to improve tolerance of non-invasive ventilation. Imaging studies including CT head and MRI spine have been ordered to evaluate for underlying neurologic causes. Patient remains hemodynamically stable; pulmonary consult is in place. She is growing gram positive cocci in clusters in her blood, will request ID input on antibiotics as she was on vancomycin previously and was started on bactrim for MRSA in urine. Her platelet count is 36 and solu-medrol is on hold. Ammonia improved from 59 to 12 04/27/25 Patient was evaluated at bedside. She was transferred to the ICU yesterday due to agitation and hypercapnia, requiring a Precedex drip as she was removing her nasal cannula. BiPAP was initiated to support ventilation, and she is now resting comfortably. CT brain was unremarkable with no acute findings. She has a free water deficit of approximately 1.4 liters, for which D5W will be administered. CRP has decreased from 83.5 to 56.4. However, platelets have dropped from 36 to 28, and hematology is closely monitoring her. The patient remains NPO. We wanted to start NG tube feeding but patient has h/o esophageal varices. We will await gastroenterologys recommendations, including possible EGD if indicated. 04/28/25 Patient was evaluated at bedside, she is bed bound not very responsive to questions. She is currently off BiPAP and precedex drip. Her agitation has improved and she is resting comfortably in bed. She has MRSA bacteremia and we will repeat blood cultures. She is currently on vancomycin. She has moderate right hydronephrosis which is increasing, we will request urology consult. Her sodium is trending upwards from 147 to 152 and she has a free water deficit of 2.4 L , we will increase D5 rate from 75 to 150mls/hr. CRP improving from 56.4 to 42.7. Platelets dropped from 28 to 21, we will follow Dr. Lorenzo's recommendations and his plan is give her IgG. She is not bleeding actively. REVIEW OF SYSTEMS deferred due to patient's condition PHYSICAL EXAM GENERAL APPEARANCE: The patient is drowsy but not in acute distress NEUROLOGICAL: Cranial nerves II-XII grossly intact. Motor is 5/5 in bilateral upper and lower extremities proximal to distal. No sensory deficits. HEENT: Face is symmetric. Pupils are equal and reactive. Extraocular movements are intact. NECK: Supple. No JVD. No thyromegaly. No submental, submandibular, pre- /postauricular, occipital or supraclavicular lymphadenopathy. CHEST: Normal chest expansion. LUNGS: Absence of any rales, rhonchi or any wheezing. CARDIOVASCULAR: Regular. S1 and S2 normal. No appreciable rubs, murmurs or gallops. ABDOMEN: Soft, nontender, and nondistended. There is no rebound, voluntary guarding, or rigidity. : Deferred EXTREMITIES: Non-edematous and not cyanotic. No clubbing. Good capillary refill. SKIN: No skin breakdown. Vital Signs (last 8hr) Date Time Temp Pulse Resp B/P (MAP) Pulse Ox O2 Delivery O2 Flow Rate FiO2 04/28/25 12:45 68 18 158/79 (105) 100 04/28/25 12:30 64 20 159/74 (102) 99 04/28/25 12:15 65 17 160/73 (102) 99 04/28/25 12:00 98.8 04/28/25 12:00 98.1 65 26 153/72 (99) 100 04/28/25 11:45 71 35 154/73 (100) 99 04/28/25 11:30 62 11 140/59 (86) 100 04/28/25 11:15 58 11 137/52 (80) 100 04/28/25 11:00 64 16 149/68 (95) 100 04/28/25 10:45 61 17 157/66 (96) 99 04/28/25 10:30 67 24 167/74 (105) 99 04/28/25 10:15 63 21 151/67 (95) 99 04/28/25 10:00 64 23 147/64 (91) 99 04/28/25 09:45 66 30 142/69 (93) 100 04/28/25 09:30 61 19 142/69 (93) 100 04/28/25 09:15 61 13 128/65 (86) 97 04/28/25 09:00 60 13 124/58 (80) 100 04/28/25 08:45 55 12 140/53 (82) 98 04/28/25 08:30 56 13 141/56 (84) 100 04/28/25 08:15 58 16 144/63 (90) 100 04/28/25 08:00 98.8 55 16 150/67 (94) 100 04/28/25 08:00 100 Nasal Cannula* 3 N/A Bi-PAP+ 04/28/25 08:00 98.4 04/28/25 07:45 55 17 148/62 (90) 100 04/28/25 07:36 57 20 N/Cannula Low lpm 3.0 04/28/25 07:30 52 13 30 04/28/25 07:30 53 13 136/57 (83) 99 04/28/25 07:15 53 13 160/60 (93) 96 04/28/25 07:00 54 12 126/62 (83) 98 LABS: Laboratory: Test 04/28/25 13:10 04/28/25 11:33 04/28/25 02:28 04/27/25 04:42 Range/Units Urine Random Creatinine 27.84 L 30-135 mg/dL Urine Random Sodium 33 L 40-220 mmol/l Urine Random Potassium 20 L 25-125 mmol/L Urine Random Chloride 57 L 110-250 mmol/L Whole Blood Glucose 144 H 70-110 MG/DL White Blood Count 7.0 # 4.8-10.8 K/uL Red Blood Count 3.96 L 4.00-5.50 MIL/uL Hemoglobin 10.0 L 12.0-16.0 g/dL Hematocrit 31.8 L 36-48 % Mean Corpuscular Volume 80.3 79-99 fL Mean Corpuscular Hemoglobin 25.3 L 27.0-33.0 pg Mean Corpuscular Hemoglobin Concent 31.4 L 32.0-36.0 g/dL Red Cell Distribution Width 20.9 H 11.0-15.5 % Platelet Count 21 L 130-400 K/uL Mean Platelet Volume 7.5-10.5 fL Immature Granulocyte % (Auto) 4.7 H 0-1 % Neutrophils (%) (Auto) 83.8 H 40.0-77.0 % Lymphocytes (%) (Auto) 5.2 L 21.0-51.0 % Monocytes (%) (Auto) 5.6 3.0-13.0 % Eosinophils (%) (Auto) 0.1 0.0-8.0 % Basophils (%) (Auto) 0.6 0.0-5.0 % Neutrophils # (Auto) 5.8 1.8-7.7 K/uL Lymphocytes # (Auto) 0.4 L 1.0-4.8 K/uL Monocytes # (Auto) 0.4 0.1-1.0 K/uL Eosinophils # (Auto) 0.01 0.00-0.70 K/uL Basophils # (Auto) 0.04 0.00-0.20 K/uL Absolute Immature Granulocyte (auto 0.33 0-1 K/uL Nucleated Red Blood Cells 0.6 H 0.0-0.19 % Sodium Level 152 H 136-145 mmol/L Potassium Level 4.2 3.5-5.1 mmol/L Chloride Level 116 H 101-111 mmol/L Carbon Dioxide Level 31 21-32 mmol/L Blood Urea Nitrogen 39 H 7-18 mg/dL Creatinine 0.9 0.5-1.0 mg/dL Glomerular Filtration Rate Calc 76 >90 mL/min Random Glucose 155 #H 70-105 mg/dL Total Calcium 8.9 8.5-10.1 mg/dL Total Bilirubin 1.2 H 0.2-1.0 mg/dL Aspartate Amino Transf (AST/SGOT) 50 H 10-37 U/L Alanine Aminotransferase (ALT/SGPT) 49 12-78 U/L Alkaline Phosphatase 197 H 50-136 U/L C-Reactive Protein, Quantitative 42.70 H 0.5-3.0 mg/L Total Protein 6.7 6.0-8.3 g/dL Albumin 1.9 L 3.5-5.0 g/dL Vancomycin Level Trough 20.2 #H 10.0-20.0 UG/ML Phosphorus Level 2.6 2.5-4.9 mg/dL Magnesium Level 2.00 1.80-2.40 mg/dL Procalcitonin 1.34 H 0.05-0.5 ng/mL Test 04/27/25 03:42 04/26/25 18:40 Range/Units Blood Gas Specimen Type Arterial Arterial Blood pH 7.430 7.350-7.450 Arterial Blood Partial Pressure CO2 40 32-45 mmHg Arterial Blood Partial Pressure O2 160.4 H 83.0-108.0 mmHg Arterial Blood HCO3 25.8 21.0-28.0 mmol/L Arterial Blood Oxygen Saturation 99.1 H 94.0-98.0 % Arterial Blood Base Excess 1.5 -2.0-3.0 mmol/L Blood Gas Temperature 37.0 35.5-37.0 CELSIUS Blood Gas Respiration Rate 12.0 min. Blood Gas Vent Mode BIPAP,12,6 ROOM AIR FiO2 40.0 % Blood Gas Specimen Comment LR,RN YASMIN Hemoglobin (Blood Gas) 10.5 L 12.0-16.0 g/dL Sodium (Blood Gas) 144 136-145 MMOL/L Bedside Potassium (Blood Gas) 3.9 3.4-4.5 MMOL/L Bedside Chloride (Blood Gas) 112 H 98-107 MMOL/L Bedside Glucose (Blood Gas) 297 H 65-95 MG/DL Bedside Ionized Calcium (Blood Gas) 1.33 1.15-1.33 MMOL/L Bedside Lactic Acid (Blood Gas) 1.78 H 0.36-0.75 MMOL/L Current Medications Medications (Trade) Dose Ordered Sig/Roberth Route PRN Reason Start Time Stop Time Status Last Admin Dose Admin Acetaminophen (TYLenol 325MG TAB) 650 mg Q4H PRN PO MILD PAIN (1-3) 04/22/25 20:00 05/22/25 19:59 04/24/25 20:44 650 MG Acetaminophen (TYLenol 325MG TAB) 650 mg Q6H PRN PO TEMPERATURE GREATER THAN 101.5 04/22/25 20:00 05/22/25 19:59 04/23/25 10:02 650 MG Atorvastatin Calcium (LIPItor 20MG) 20 mg HS PO 04/24/25 21:00 05/24/25 20:59 04/25/25 21:51 20 MG Ceftriaxone Sodium 1 gm/ Sodium Chloride 50 ml @ 100 mls/hr BID IV 04/22/25 21:00 04/22/25 19:59 DC Ceftriaxone Sodium (ROCEphine 1G INJ) 1 gm BID IVPB 04/22/25 21:00 04/22/25 20:44 DC Ceftriaxone Sodium (ROCEphine 1G INJ) 1 gm BID IVPB 04/23/25 09:00 04/25/25 12:36 DC 04/25/25 09:44 1 GM Dexmedetomidine/ Sodium Chloride (PRECEdex 200MCG/ 50ML-NS) 200 mcg PROTOCOL IV 04/26/25 12:00 04/26/25 14:54 DC Dexmedetomidine/ Sodium Chloride (PRECEdex 400MCG/ 100ML-NS) 400 mcg PROTOCOL PRN IV ANXIETY/AGITATION 04/26/25 19:30 05/26/25 19:29 04/27/25 23:31 400 MCG Dexmedetomidine/ Sodium Chloride (PRECEdex 400MCG/ 100ML-NS) 400 mcg PROTOCOL STAT IV 04/26/25 14:53 04/26/25 14:58 DC 04/26/25 15:18 400 MCG Dextrose 1,000 ml @ 150 mls/hr Q6H40M IV 04/26/25 12:00 05/26/25 11:59 04/27/25 22:30 75 MLS/HR Dextrose (D50w) 50 ml AD PRN IV HYPOGLYCEMIA PROTOCOL 04/22/25 20:00 05/22/25 19:59 Famotidine (Pepcid 20mg Tab) 20 mg DAILY PO 04/23/25 09:00 04/24/25 09:48 DC 04/23/25 09:33 20 MG Gabapentin (NEURontin 300 MG CAP) 300 mg BID PO 04/24/25 21:00 04/28/25 09:10 DC 04/25/25 21:51 300 MG Glucagon (Glucagon 1mg Kit) 1 mg AD PRN IM HYPOGLYCEMIA PROTOCOL 04/22/25 20:00 05/22/25 19:59 Heparin Sodium (Porcine) (HEParin 5,000 UNIT VIAL) 5,000 unit Q8H SQ 04/25/25 09:00 04/25/25 08:40 DC Hydromorphone HCl (DiLAUDid 0.5MG INJ) 0.5 mg BIDPRN PRN IVP SEVERE PAIN (7-10) 04/25/25 19:00 04/30/25 18:59 04/25/25 22:51 0.5 MG Hydromorphone HCl (DiLAUDid 0.5MG INJ) 0.5 mg Q6H PRN IVP SEVERE PAIN (7-10) 04/23/25 14:00 04/25/25 08:25 DC 04/25/25 04:14 0.5 MG Insulin Glargine (LANtus 100 UNITS/ML 10 ML VIAL) 10 units HS SQ 04/24/25 21:00 04/24/25 16:57 DC Insulin Glargine (LANtus 100 UNITS/ML 10 ML VIAL) 10 units ONCE STAT SQ 04/24/25 10:54 04/24/25 11:00 DC 04/24/25 11:19 10 UNITS Insulin Glargine (LANtus 100 UNITS/ML 10 ML VIAL) 15 units HS SQ 04/24/25 21:00 04/24/25 17:06 DC Insulin Glargine (LANtus 100 UNITS/ML 10 ML VIAL) 30 units ONCE SQ 04/24/25 17:00 04/25/25 06:19 DC 04/24/25 18:16 30 UNITS Insulin Glargine (LANtus 100 UNITS/ML 10 ML VIAL) 50 units DAILY SQ 04/26/25 09:00 05/26/25 08:59 04/28/25 08:46 50 UNITS Insulin Human Regular (humuLIN R 100 UNIT/ML 3ML) 5 unit TIDAC SQ 04/24/25 17:00 04/24/25 17:06 DC Insulin Human Regular (humuLIN R 100 UNIT/ML 3ML) 8 unit TIDAC SQ 04/28/25 07:30 05/28/25 07:29 Insulin Human Regular (humuLIN R 100 UNIT/ML 3ML) 10 unit TIDAC SQ 04/24/25 17:00 04/25/25 06:17 DC 04/25/25 06:15 10 UNIT Insulin Human Regular (humuLIN R 100 UNIT/ML 3ML) 15 unit TIDAC SQ 04/26/25 11:30 04/27/25 20:30 DC Insulin Human Regular (humuLIN R 100 UNIT/ML 3ML) 25 unit TIDAC SQ 04/25/25 07:30 04/26/25 07:58 DC 04/25/25 17:39 25 UNIT Insulin Human Regular (humuLIN R 100 UNIT/ML 3ML) INSULIN SLIDING SCAL... ACHS SQ 04/22/25 21:00 04/24/25 16:16 DC 04/24/25 11:18 8 UNIT Insulin Human Regular (humuLIN R 100 UNIT/ML 3ML) INSULIN SLIDING SCAL... ACHS SQ 04/24/25 16:30 04/25/25 14:09 DC 04/25/25 11:57 16 UNIT Insulin Human Regular (humuLIN R 100 UNIT/ML 3ML) INSULIN SLIDING SCAL... ACHS SQ 04/25/25 16:30 05/25/25 16:29 04/27/25 17:06 10 UNIT Insulin Human Regular (humuLIN R 100 UNIT/ML 3ML) INSULIN SLIDING SCAL... Q4H SQ 04/27/25 20:30 04/28/25 09:11 DC 04/28/25 06:00 4 UNIT Lactated Ringer's 1,000 ml @ 100 mls/hr Q10H IV 04/22/25 20:00 04/23/25 10:09 DC 04/23/25 06:00 100 MLS/HR Lactulose (Constulose 20gm/ 30ml Udcup) 30 gm TID PO 04/25/25 11:00 05/25/25 10:59 04/25/25 21:52 30 GM Levothyroxine Sodium (SYNTHroid 125MCG TAB) 125 mcg DAILY@0630 PO 04/25/25 06:30 05/25/25 06:29 Magnesium Sulfate 50 ml @ 0 mls/hr PROTOCOL PRN IV OTHER [SEE ORDER COMMENTS] 04/22/25 20:00 05/22/25 19:59 Methylprednisolone Sodium Succinate (Solu-medROL 125MG) 125 mg Q6H IVP 04/23/25 08:00 04/28/25 09:10 DC 04/25/25 09:45 125 MG Metoprolol Succinate (TopROL XL) 50 mg AM PO 04/25/25 09:00 05/25/25 08:59 04/25/25 09:45 50 MG Ondansetron HCl (zoFRAN 4MG INJ) 4 mg Q6H PRN IV NAUSEA/VOMITING 04/22/25 20:00 05/22/25 19:59 04/22/25 20:10 4 MG Pantoprazole Sodium (PROTonix 40MG INJ) 40 mg DAILY IVP 04/24/25 10:00 05/24/25 09:59 04/28/25 08:35 40 MG Potassium Chloride 100 ml @ 100 mls/hr AD PRN IV POTASSIUM PROTOCOL 04/22/25 20:00 05/22/25 19:59 Potassium Chloride (K-Dur/Klor-Con 20meq) 20 meq AD PRN PO POTASSIUM PROTOCOL 04/22/25 20:00 05/22/25 19:59 Potassium Chloride (KCl 10% Elixir 20meq/15ml) 20 meq AD PRN PO POTASSIUM PROTOCOL 04/22/25 20:00 05/22/25 19:59 Pramipexole Dihydrochloride (miraPEX 0.25MG TAB) 0.5 mg HS PO 04/24/25 21:00 05/24/25 20:59 04/25/25 21:55 0.5 MG Pregabalin ([id number]) 75 mg BID PO 04/24/25 21:00 04/24/25 14:49 DC Sodium Chloride 500 ml @ 0 mls/hr Q0M IV 04/25/25 11:00 05/25/25 10:59 Sodium Zirconium Cyclosilicate (Lokelma 10gm Powder) 10 gm TID PO 04/23/25 21:00 04/23/25 14:11 DC Tramadol HCl (UltRAM) 50 mg Q6H PRN PO MODERATE PAIN (4-6) 04/24/25 22:30 04/29/25 22:29 04/28/25 13:55 50 MG Trimethoprim/ Sulfamethoxazole (BactRIM DS) 1 tab BID PO 04/25/25 21:00 04/26/25 14:50 DC 04/25/25 21:51 1 TAB Vancomycin HCl 250 ml @ 125 mls/hr Q12H IV 04/24/25 23:00 04/25/25 12:36 DC 04/25/25 11:43 125 MLS/HR Vancomycin HCl 250 ml @ 125 mls/hr Q12H IV 04/26/25 15:30 04/28/25 03:13 DC 04/27/25 15:22 125 MLS/HR Vancomycin HCl 250 ml @ 125 mls/hr Q12H IV 04/28/25 15:30 05/08/25 15:29 Vancomycin HCl (Vancomycin Protocol) 1 each AD IV 04/24/25 10:30 04/25/25 12:36 DC Vancomycin HCl (Vancomycin Protocol) 1 each AD IV 04/26/25 15:00 05/10/25 14:59 Venlafaxine HCl (EffEXOR XR 37.5mg CAP) 37.5 mg DAILY PO 04/24/25 16:00 05/24/25 15:59 04/25/25 09:45 37.5 MG Venlafaxine HCl (EffEXOR XR 37.5mg CAP) 37.5 mg DAILY PO 04/25/25 09:00 04/24/25 14:50 DC DIAGNOSTICS / RADIOLOGY: PATIENT: LUCÍA CATALAN MR#: [id number] : 1970 SEX: F AGE: 54 LOCATION: 2CH ORDER 1610 STATUS: ADM IN REPORT#: [id number] SERVICE 06 REASON: assess hydropneprhosis worsening or improved? ORDERING PHYSICIAN: KODY FLORES PROCEDURE: RETROLTD - US RETROPERITONEAL LTD EXAMINATION: ULTRASOUND OF THE RETROPERITONEUM. CLINICAL HISTORY: To assess hydronephrosis COMPARISON: Ultrasound dated 04/23/2025. TECHNIQUE: Real-time grayscale and color ultrasound images of the kidneys. FINDINGS: The kidneys are normal in caliber; the right kidney measures 12.1 x 6.8 x 6.1 cm in its craniocaudal, AP, and transverse dimensions, and the left kidney measures 13.2 x 6.3 x 7 cm in its craniocaudal, AP, and transverse dimensions. There is normal renal cortical thickness, and normal cortical echogenicity. There is no renal calculus bilaterally. Moderate right hydronephrosis present. The urinary bladder is distended with normal wall thickness (measuring 2 mm).There are no calculi in urinary bladder. IMPRESSION: Increased moderate right hydronephrosis. /Logan DICTATED BY: BROOKLYN LOPEZ Jr., MD DATE: 04/28/25912 ELECTRONICALLY SIGNED BY: BROOKLYN LOPEZ Jr., MD DATE: 04/28/25912 ASSESSMENT: MRSA bacteremia Acute hypoxic hypercapnic respiratory failure, not POA AMS due to suspected steroid induced psychosis or hepatic encephalopathy, not POA Gram positive bacteremia Hyperammonemia due to cirrhosis Intractable low back pain due to spinal stenosis POA 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 POA Acute urinary tract infection due to MRSA POA Hypervolemic hyponatremia POA Chronic anemia POA Hyponatremia POA Acute kidney injury on renal insufficiency POA Hyperglycemia due to uncontrolled diabetes POA Hypocalcemia POA Cirrhotic liver with splenomegaly consistent with portal hypertension per CT POA Esophageal varices Renal parenchymal disease per CT POA Hypothyroidism POA Hypocalcemia POA Hyperlipidemia POA Hypertension POA Anxiety disorder POA Depression POA Restless leg syndrome POA Suspected obstructive sleep apnea untreated POA Morbid obesity POA PLAN: MRSA bacteremia IV Vancomycin with trough monitoring. Repeat blood cultures Contact precautions Acute hypoxic hypercapnic respiratory failure Initiate BIPAP for ventilatory support; monitor ABGs and respiratory rate. Start dexmedetomidine drip for sedation to improve BIPAP compliance. Transfer to ICU for close respiratory and hemodynamic monitoring. Altered Mental Status due to Hepatic Encephalopathy or steroids induced psychosis Start lactulose 30 mg TID Monitor ammonia levels, mental status, and signs of worsening encephalopathy. Discontinue or hold steroids Monitor neuro status and reassess mental status regularly with steroid adjustments. Intractable lower back pain Continue multimodal pain management: acetaminophen, topical agents, consider gabapentin if neuropathic. Currently on dilaudid CT lumbar spine ESR elevated Thrombocytopenia due to ITP Monitor CBC daily; trend platelets. Rule out DIC, splenic sequestration (cirrhosis-related), and medication-induced causes. Avoid NSAIDs, hematology consult Currently on solu medrol 125mg q6, on hold . Acute UTI Currently on rocephin Monitor for signs of urosepsis Encourage hydration and bladder care Hyponatremia Treat underlying hyperglycemia; avoid rapid sodium correction. Monitor serum Na closely; consider fluid restriction if dilutional. Cirrhosis with portal hypertension Monitor for decompensation: encephalopathy, ascites, variceal bleeding. Consider beta sergio for variceal prophylaxis. Monitor LFTs, INR, and ammonia Her MELD- Na score is 24 points, 14-15% estimated 90 day mortality Hyperglycemia (Uncontrolled Diabetes) Start basal/bolus insulin regimen; monitor blood glucose QID. Educate on diet and insulin compliance; monitor for DKA if concern. Correct electrolytes accordingly. Chronic anemia Monitor trends; assess for iron/B12/folate deficiency. Avoid transfusion unless symptomatic or Hgb <7. GI consult Case discussed with attending physician and came up with above treatment and plan of care. ATTESTATION BY PHYSICIAN I have seen and examined the patient. I reviewed the documentation, medical decision making, and treatment plan as noted by the resident provider above. I agree with the findings and plan of care. Cory Pimentel MD, NIHITHA MD Apr 28, 2025 15:20 CORY PIMENTEL MD Apr 29, 2025 13:07
[2025-04-28] MEDS ORDERED: VANCOMYCIN 1.25 GM/250 ML BAG 250 ML IV SCH (15:30)
--- NOTE | 2025-04-28 16:42 | PN ---
endocrinology progress note Date of Service: Apr 28, 2025 subjective: glucose are improving now and off iv steroids now hba1c 9.2, home regimen: lantus 30 units daily and humalog 10 units tid before meals. patient glucose are stable. off iv steroid MTP. PAST MEDICAL HISTORY: [undiagnosed obstructive sleep apnea, diabetes type 2, hypertension, hyperlipidemia, hypothyroidism, restless leg syndrome, anxiety disorder,depression, lupus and severe morbid obesity ] PAST SURGICAL HISTORY: [ Cholecystectomy, tubal ligation] PAST SOCIAL HISTORY: [ Patient lives with . Patient denies alcohol tobacco and recreational drug use] FAMILY HISTORY: [ Hypertension, diabetes, cardiovascular disease and Alzheimer's disease ] Coded Allergies: No Known Allergies (Unverified Allergy, Unknown, 08/26/14) ASSESSMENT: hyperglycemia due to uncontrolled dm-2 and off iv steroids now. glucose are improving now. hba1c 9.2, home regimen: lantus 30 units daily and humalog 10 units tid before meals. Intractable low back pain POA Acute thrombocytopenia POA Acute urinary tract infection POA Chronic anemia POA Hyponatremia POA Acute kidney injury on renal insufficiency POA Hypocalcemia POA Cirrhotic liver with splenomegaly consistent with portal hypertension per CT POA Renal parenchymal disease per CT POA Hypothyroidism POA Hyperlipidemia POA Hypertension POA Anxiety disorder POA Depression POA Restless leg syndrome POA Suspected obstructive sleep apnea untreated POA Morbid obesity POA PLAN: decrease lantus to 40 units daily hyperglycemia. decrease regular insulin to 7 units qac before meals continue high dose ssi monitor glucose qx6 hourly Vitals/Labs Vital Signs Date Time Temp Pulse Resp B/P (MAP) Pulse Ox O2 Delivery O2 Flow Rate FiO2 04/28/25 12:45 68 18 158/79 (105) 100 04/28/25 12:00 98.8 04/28/25 08:00 Nasal Cannula* 3 N/A Bi-PAP+ Laboratory Tests 04/28/25 02:28 Medications Current Medications Sodium Chloride 1,000 ml @ 0 mls/hr ONCE ONCE IV Last administered on 04/22/25at 17:27; Start 04/22/25 at 17:00; Stop 04/22/25 at 17:01; Status DC Ceftriaxone Sodium 1 gm ONCE ONCE IVPB Last administered on 04/22/25at 19:43; Start 04/22/25 at 19:00; Stop 04/22/25 at 19:01; Status DC Acetaminophen 650 mg Q6H PRN PO Last administered on 04/23/25at 10:02; Start 04/22/25 at 20:00; Stop 05/22/25 at 19:59 Acetaminophen 650 mg Q4H PRN PO Last administered on 04/24/25at 20:44; Start 04/22/25 at 20:00; Stop 05/22/25 at 19:59 Ondansetron HCl 4 mg Q6H PRN IV Last administered on 04/22/25at 20:10; Start 04/22/25 at 20:00; Stop 05/22/25 at 19:59 Famotidine 20 mg DAILY PO Last administered on 04/23/25at 09:33; Start 04/23/25 at 09:00; Stop 04/24/25 at 09:48; Status DC Ceftriaxone Sodium 1 gm/ Sodium Chloride 50 ml @ 100 mls/hr BID IV; Start 04/22/25 at 21:00; Stop 04/22/25 at 19:59; Status DC Lactated Ringer's 1,000 ml @ 100 mls/hr Q10H IV Last administered on 04/23/25at 06:00; Start 04/22/25 at 20:00; Stop 04/23/25 at 10:09; Status DC Insulin Human Regular INSULIN SLIDING SCAL... ACHS SQ Last administered on 04/24/25at 11:18; Start 04/22/25 at 21:00; Stop 04/24/25 at 16:16; Status DC Dextrose 50 ml AD PRN IV; Start 04/22/25 at 20:00; Stop 05/22/25 at 19:59 Glucagon 1 mg AD PRN IM; Start 04/22/25 at 20:00; Stop 05/22/25 at 19:59 Magnesium Sulfate 50 ml @ 0 mls/hr PROTOCOL PRN IV; Start 04/22/25 at 20:00; Stop 05/22/25 at 19:59 Potassium Chloride 100 ml @ 100 mls/hr AD PRN IV; Start 04/22/25 at 20:00; Stop 05/22/25 at 19:59 Potassium Chloride 20 meq AD PRN PO; Start 04/22/25 at 20:00; Stop 05/22/25 at 19:59 Potassium Chloride 20 meq AD PRN PO; Start 04/22/25 at 20:00; Stop 05/22/25 at 19:59 Ceftriaxone Sodium 1 gm BID IVPB; Start 04/22/25 at 21:00; Stop 04/22/25 at 20:44; Status DC Morphine Sulfate 4 mg ONCE ONCE IVP Last administered on 04/22/25at 20:11; Start 04/22/25 at 20:30; Stop 04/22/25 at 20:31; Status DC Lidocaine 1 each ONCE ONCE TP Last administered on 04/22/25at 21:14; Start 04/22/25 at 21:00; Stop 04/22/25 at 21:01; Status DC Ceftriaxone Sodium 1 gm BID IVPB Last administered on 04/25/25at 09:44; Start 04/23/25 at 09:00; Stop 04/25/25 at 12:36; Status DC Methylprednisolone Sodium Succinate 125 mg Q6H IVP Last administered on 04/25/25at 09:45; Start 04/23/25 at 08:00; Stop 04/28/25 at 09:10; Status DC Albuterol Sulfate 1.25 ONCE ONCE IH Last administered on 04/23/25at 09:40; Start 04/23/25 at 09:30; Stop 04/23/25 at 09:31; Status DC Calcium Gluconate 1 gm ONCE ONCE IV Last administered on 04/23/25at 10:55; Start 04/23/25 at 10:30; Stop 04/23/25 at 10:31; Status DC Sodium Chloride 50 ml @ 0 mls/hr ONCE ONCE IV Last administered on 04/23/25at 11:00; Start 04/23/25 at 11:00; Stop 04/23/25 at 11:01; Status DC Sodium Zirconium Cyclosilicate 10 gm ONCE ONCE PO Last administered on 04/23/25at 14:14; Start 04/23/25 at 14:00; Stop 04/23/25 at 16:08; Status DC Hydromorphone HCl 0.5 mg Q6H PRN IVP Last administered on 04/25/25at 04:14; Start 04/23/25 at 14:00; Stop 04/25/25 at 08:25; Status DC Sodium Zirconium Cyclosilicate 10 gm TID PO; Start 04/23/25 at 21:00; Stop 04/23/25 at 14:11; Status DC Pantoprazole Sodium 40 mg DAILY IVP Last administered on 04/28/25at 08:35; Start 04/24/25 at 10:00; Stop 05/24/25 at 09:59 Pregabalin 75 mg BID PO; Start 04/24/25 at 21:00; Stop 04/24/25 at 14:49; Status DC Vancomycin HCl 1 each AD IV; Start 04/24/25 at 10:30; Stop 04/25/25 at 12:36; Status DC Vancomycin HCl 500 ml @ 250 mls/hr ONCE ONCE IV Last administered on 04/24/25at 12:46; Start 04/24/25 at 11:00; Stop 04/24/25 at 12:59; Status DC Vancomycin HCl 250 ml @ 125 mls/hr Q12H IV Last administered on 04/25/25at 11:43; Start 04/24/25 at 23:00; Stop 04/25/25 at 12:36; Status DC Insulin Glargine 10 units HS SQ; Start 04/24/25 at 21:00; Stop 04/24/25 at 16:57; Status DC Insulin Glargine 10 units ONCE STAT SQ Last administered on 04/24/25at 11:19; Start 04/24/25 at 10:54; Stop 04/24/25 at 11:00; Status DC Atorvastatin Calcium 20 mg HS PO Last administered on 04/25/25at 21:51; Start 04/24/25 at 21:00; Stop 05/24/25 at 20:59 Gabapentin 300 mg BID PO Last administered on 04/25/25at 21:51; Start 04/24/25 at 21:00; Stop 04/28/25 at 09:10; Status DC Levothyroxine Sodium 125 mcg DAILY@0630 PO; Start 04/25/25 at 06:30; Stop 05/25/25 at 06:29 Metoprolol Succinate 50 mg AM PO Last administered on 04/25/25at 09:45; Start 04/25/25 at 09:00; Stop 05/25/25 at 08:59 Venlafaxine HCl 37.5 mg DAILY PO; Start 04/25/25 at 09:00; Stop 04/24/25 at 14:50; Status DC Pramipexole Dihydrochloride 0.5 mg HS PO Last administered on 04/25/25at 21:55; Start 04/24/25 at 21:00; Stop 05/24/25 at 20:59 Venlafaxine HCl 37.5 mg DAILY PO Last administered on 04/25/25at 09:45; Start 04/24/25 at 16:00; Stop 05/24/25 at 15:59 Insulin Human Regular INSULIN SLIDING SCAL... ACHS SQ Last administered on 04/25/25at 11:57; Start 04/24/25 at 16:30; Stop 04/25/25 at 14:09; Status DC Insulin Glargine 15 units HS SQ; Start 04/24/25 at 21:00; Stop 04/24/25 at 17:06; Status DC Insulin Human Regular 5 unit TIDAC SQ; Start 04/24/25 at 17:00; Stop 04/24/25 at 17:06; Status DC Insulin Glargine 30 units ONCE SQ Last administered on 04/24/25at 18:16; Start 04/24/25 at 17:00; Stop 04/25/25 at 06:19; Status DC Insulin Human Regular 10 unit TIDAC SQ Last administered on 04/25/25at 06:15; Start 04/24/25 at 17:00; Stop 04/25/25 at 06:17; Status DC Tramadol HCl 50 mg Q6H PRN PO Last administered on 04/28/25at 13:55; Start 04/24/25 at 22:30; Stop 04/29/25 at 22:29 Insulin Human Regular 25 unit TIDAC SQ Last administered on 04/25/25at 17:39; Start 04/25/25 at 07:30; Stop 04/26/25 at 07:58; Status DC Insulin Glargine 70 units ONCE ONCE SQ Last administered on 04/25/25at 06:27; Start 04/25/25 at 06:30; Stop 04/25/25 at 06:31; Status DC Hydromorphone HCl 0.5 mg BIDPRN PRN IVP Last administered on 04/25/25at 22:51; Start 04/25/25 at 19:00; Stop 04/30/25 at 18:59 Heparin Sodium (Porcine) 5,000 unit Q8H SQ; Start 04/25/25 at 09:00; Stop 04/25/25 at 08:40; Status DC Lactulose 30 gm TID PO Last administered on 04/25/25at 21:52; Start 04/25/25 at 11:00; Stop 05/25/25 at 10:59 Sodium Chloride 500 ml @ 0 mls/hr Q0M IV; Start 04/25/25 at 11:00; Stop 05/25/25 at 10:59 Trimethoprim/ Sulfamethoxazole 1 tab BID PO Last administered on 04/25/25at 21:51; Start 04/25/25 at 21:00; Stop 04/26/25 at 14:50; Status DC Insulin Human Regular INSULIN SLIDING SCAL... ACHS SQ Last administered on 04/27/25at 17:06; Start 04/25/25 at 16:30; Stop 05/25/25 at 16:29 Diazepam 10 mg ONCE ONCE IM; Start 04/25/25 at 15:00; Stop 04/25/25 at 15:01; Status DC Lactulose 200 gm ONCE ONCE NM Last administered on 04/25/25at 17:30; Start 04/25/25 at 16:30; Stop 04/25/25 at 16:31; Status DC Lorazepam 0.5 mg ONCE ONCE PO Last administered on 04/25/25at 19:07; Start 04/25/25 at 19:00; Stop 04/25/25 at 19:01; Status DC Haloperidol Lactate 1 mg ONCE ONCE IM Last administered on 04/26/25at 05:17; Start 04/26/25 at 05:00; Stop 04/26/25 at 05:02; Status DC Insulin Human Regular 15 unit TIDAC SQ; Start 04/26/25 at 11:30; Stop 04/27/25 at 20:30; Status DC Insulin Glargine 50 units DAILY SQ Last administered on 04/28/25at 08:46; Start 04/26/25 at 09:00; Stop 05/26/25 at 08:59 Dextrose 1,000 ml @ 150 mls/hr Q6H40M IV Last administered on 04/27/25at 22:30; Start 04/26/25 at 12:00; Stop 05/26/25 at 11:59 Dexmedetomidine/ Sodium Chloride 200 mcg PROTOCOL IV; Start 04/26/25 at 12:00; Stop 04/26/25 at 14:54; Status DC Dexmedetomidine/ Sodium Chloride 400 mcg STK-MED ONCE IV; Start 04/26/25 at 14:49; Stop 04/26/25 at 14:50; Status DC Vancomycin HCl 1 each AD IV; Start 04/26/25 at 15:00; Stop 05/10/25 at 14:59 Dexmedetomidine/ Sodium Chloride 400 mcg PROTOCOL STAT IV Last administered on 04/26/25at 15:18; Start 04/26/25 at 14:53; Stop 04/26/25 at 14:58; Status DC Vancomycin HCl 250 ml @ 125 mls/hr Q12H IV Last administered on 04/27/25at 15:22; Start 04/26/25 at 15:30; Stop 04/28/25 at 03:13; Status DC Dexmedetomidine/ Sodium Chloride 400 mcg PROTOCOL PRN IV Last administered on 04/27/25at 23:31; Start 04/26/25 at 19:30; Stop 05/26/25 at 19:29 Dexmedetomidine/ Sodium Chloride 400 mcg STK-MED ONCE IV Last administered on 04/26/25at 19:14; Start 04/26/25 at 19:10; Stop 04/26/25 at 19:11; Status DC Insulin Human Regular INSULIN SLIDING SCAL... Q4H SQ Last administered on 04/28/25at 06:00; Start 04/27/25 at 20:30; Stop 04/28/25 at 09:11; Status DC Vancomycin HCl 250 ml @ 125 mls/hr Q12H IV; Start 04/28/25 at 15:30; Stop 05/08/25 at 15:29 Insulin Human Regular 8 unit TIDAC SQ; Start 04/28/25 at 07:30; Stop 05/28/25 at 07:29 PARAG VANG MD Apr 28, 2025 16:42
--- NOTE | 2025-04-28 17:09 | NUR ---
CM note Informed MD of current out of network insurance.
--- NOTE | 2025-04-28 20:13 | HMCIMG ---
EXAMINATION: CT ABDOMEN AND PELVIS WITHOUT IV CONTRAST CLINICAL HISTORY: Patient presents with right hydronephrosis. COMPARISON: CT dated April 22, 2025. CONTRAST: No IV contrast. TECHNIQUE: Axial computed tomography images of the abdomen and pelvis without intravenous contrast; sagittal and coronal reformatted images submitted for interpretation. FINDINGS: LUNG BASES: Bilateral mild pleural effusion with adjacent basal subsegmental atelectasis. LIVER: The liver measures 10.3 cm in craniocaudal span and demonstrates nodular contour, concerning for cirrhosis. GALLBLADDER AND BILE DUCTS: The gallbladder is surgically absent. No biliary ductal dilatation. PANCREAS: There is peripancreatic fat stranding and fluid without any organized pancreatic or peripancreatic collections, concerning for acute edematous interstitial pancreatitis. Multiple portosystemic collateral vascular channels are noted in the peripancreatic region. SPLEEN: The spleen is enlarged, measuring 14.4 cm. ADRENAL GLANDS: Unremarkable. KIDNEYS, URETERS, AND BLADDER: No hydronephrosis or hydroureter. No renal or ureteric calculi. The urinary bladder is empty with Nolasco???s catheter bulb in place. STOMACH AND BOWEL: Patchy fat stranding is seen in the right paracolic gutter. Moderate amount of fecal content in the colon, concerning for constipation. The stomach and remaining bowel loops are unremarkable. No obstruction, enteritis, or colitis. APPENDIX: No evidence of acute appendicitis on CT examination. PERITONEUM: Minimal ascites. LYMPH NODES: No lymphadenopathy is evident. REPRODUCTIVE: The uterus and both ovaries are atrophic, consistent with postmenopausal status. VASCULATURE: Multiple portosystemic collateral vascular channels in the periportal region. No abdominal aortic aneurysm. BONES: Multilevel moderate degenerative changes in the spine. No aggressive-appearing osseous lesion or acute osseous pathology. IMPRESSION: Nodular liver contour and reduced liver span measuring 10.3 cm, concerning for cirrhosis. Peripancreatic fat stranding and fluid without any organized pancreatic or peripancreatic collections, concerning for acute edematous interstitial pancreatitis. Splenomegaly measuring 14.4 cm. Multiple portosystemic collateral vascular channels in the periportal and peripancreatic regions. Bilateral mild pleural effusion with adjacent basal subsegmental atelectasis. Minimal ascites. Patchy fat stranding in the right paracolic gutter. Moderate amount of colonic fecal content, concerning for constipation. Surgically absent gallbladder. Urinary bladder decompressed with Nolasco???s bulb in place. No evidence of hydronephrosis, hydroureter, or urolithiasis. /[place]
--- NOTE | 2025-04-28 20:19 | HMCIMG ---
EXAMINATION: MR LUMBAR SPINE WITHOUT INTRAVENOUS CONTRAST CLINICAL HISTORY: Patient presents with chronic back pain. COMPARISON: Compared to prior CT lumbar spine dated April 23, 2025. TECHNIQUE: Magnetic resonance images of the lumbar spine obtained in multiple planes without intravenous contrast. CONTRAST: None. FINDINGS: VERTEBRAE: The first non???rib-bearing vertebra is designated as the L1 vertebral body. Patchy marrow edema is present within the anterior aspects of the L2 and L3 vertebral bodies. Multilevel small marginal osteophytes are present. No acute fracture or focal osseous lesion. Modic type II changes along adjacent endplates of the L4-L5 intervertebral disc level. Schmorl's node in the lower endplate of L2 vertebra. ALIGNMENT: Bony alignment is anatomic. SPINAL CORD AND CAUDA EQUINA: No abnormal cord signal or mass. Prevertebral soft tissue edema is seen at the L2 and L3 levels. Intramuscular edema is present in the right psoas muscle. FINDINGS BY LEVEL: T12???L1: Diffuse disc bulge with central disc protrusion indenting the anterior thecal sac and bilateral traversing and L1 exiting nerve roots. Bilateral mild to moderate neural foraminal narrowing. Midsagittal AP canal diameter: 13 mm. L1???L2: No central canal or foraminal stenosis. Midsagittal AP canal diameter: 16 mm. L2???L3: Diffuse disc bulge indenting the anterior thecal sac and bilateral traversing and L2 exiting nerve roots. Bilateral moderate neural foraminal narrowing. Intradiscal collection within the L2???L3 disc space. Features concerning for infectious spondylodiscitis centered at the L2???L3 disc and adjacent L2 and L3 vertebral bodies. Midsagittal AP canal diameter: 11 mm. L3???L4: Diffuse disc bulge with ligamentum flavum hypertrophy and facet arthropathy. Indentation of the anterior thecal sac and bilateral traversing and L3 exiting nerve roots. Bilateral moderate to severe neural foraminal narrowing. Midsagittal AP canal diameter: 9.7 mm. L4???L5: Diffuse disc bulge with ligamentum flavum hypertrophy and facet arthropathy. Indentation of the anterior thecal sac and bilateral traversing and L4 exiting nerve roots. Bilateral severe neural foraminal narrowing. Midsagittal AP canal diameter: 9.8 mm. L5???S1: Diffuse disc bulge indenting the anterior thecal sac and bilateral traversing and L5 exiting nerve roots. Bilateral mild to moderate neural foraminal narrowing. Midsagittal AP canal diameter: 12 mm. PARASPINAL SOFT TISSUES: Unremarkable aside from right psoas intramuscular edema. 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 Recommend contrast MRI lumbar spine. Multilevel diffuse disc bulges from T12???L1 through L5???S1 with varying degrees of thecal sac indentation and bilateral traversing and exiting nerve root compression. Severe bilateral neural foraminal narrowing at L4???L5, moderate to severe at L3???L4, and moderate at L2???L3 and L5???S1. Ligamentum flavum hypertrophy and facet arthropathy at L3???L4 and L4???L5 levels. Multilevel disc desiccation and marginal osteophytes consistent with spondylotic changes. Spinal canal stenosis with midsagittal AP diameters of 11 mm or less at L2???L3, L3???L4, and L4???L5. /[place]
[2025-04-28] MEDS: VANCOMYCIN 1.25 GM/250 ML BAG 250 ML IV SCH (20:54)
--- NOTE | 2025-04-28 22:35 | PN ---
INFECTIOUS DISEASE PROGRESS NOTE Date of Service: Apr 28, 2025 SUBJECTIVE: This is a 54 year old female patient who was seen today at bedside in the ICU room 219. Patient is awake, alert and oriented x3. Final blood culture results came back positive for methicillin-resistant Staphylococcus aureus. During rounding today patient is pending an MRI of the lumbar spine. Patient continues on vancomycin. No reports of fever, temperature is 98.1. We will continue to follow patient's care. PHYSICAL EXAM EYES: Anicteric. Pupils equal and reactive. HENT: No oral thrush seen, moist Oral mucosa NECK: Supple, no JVD or thyromegaly. LUNGS: Good air entry. No rales, no rhonchi. Diminished breath sounds. Oxygen support as needed. CARDIOVASCULAR: S1, S2 regular. No murmur heard. ABDOMEN: Soft, non tender, bowel sounds present, no organomegaly SKIN: No rashes, no swelling. LYMPHATICS: No peripheral lymphadenopathy MUSCULOSKELETAL: No joint swelling, erythema or tenderness. EXTREMITIES: No cyanosis or clubbing BACK: No deformity, no pressure ulcer. GENITOURINARY: No dysuria or hematuria, Nolasco catheter. Vital Sign (Last 12 Hours) 04/28/25 04/28/25 04/28/25 04/28/25 10:30 10:45 11:00 11:15 Pulse 67 61 64 58 Resp 24 17 16 11 B/P (MAP) 167/74 (105) 157/66 (96) 149/68 (95) 137/52 (80) Pulse Ox 99 99 100 100 04/28/25 04/28/25 04/28/25 04/28/25 11:30 11:45 12:00 12:00 Temp 98.1 98.8 Pulse 62 71 65 Resp 11 35 26 B/P (MAP) 140/59 (86) 154/73 (100) 153/72 (99) Pulse Ox 100 99 100 04/28/25 04/28/25 04/28/25 04/28/25 12:15 12:30 12:45 15:30 Temp 97.9 Pulse 65 64 68 74 Resp 17 20 18 18 B/P (MAP) 160/73 (102) 159/74 (102) 158/79 (105) 139/56 Pulse Ox 99 99 100 96 O2 Delivery Nasal Cannula O2 Flow Rate 3.0 04/28/25 20:00 Temp 98.4 Pulse 64 Resp 19 B/P (MAP) 157/60 Pulse Ox 96 O2 Delivery Nasal Cannula O2 Flow Rate 2.0 Intake & Output (last 24hrs) 04/27/25 04/27/25 04/28/25 15:00 23:00 07:00 Intake Total 752.9 ml 780.8 ml 668.2 ml Output Total 300 ml 800 ml 1400 ml Balance 452.9 ml -19.2 ml -731.8 ml LABS: Laboratory: Test 04/28/25 19:39 04/28/25 15:25 04/28/25 13:10 04/28/25 02:28 Range/Units Whole Blood Glucose 160 H 70-110 MG/DL Vancomycin Level Trough 9.6 #L 10.0-20.0 UG/ML Urine Random Creatinine 27.84 L 30-135 mg/dL Urine Random Sodium 33 L 40-220 mmol/l Urine Random Potassium 20 L 25-125 mmol/L Urine Random Chloride 57 L 110-250 mmol/L White Blood Count 7.0 # 4.8-10.8 K/uL Red Blood Count 3.96 L 4.00-5.50 MIL/uL Hemoglobin 10.0 L 12.0-16.0 g/dL Hematocrit 31.8 L 36-48 % Mean Corpuscular Volume 80.3 79-99 fL Mean Corpuscular Hemoglobin 25.3 L 27.0-33.0 pg Mean Corpuscular Hemoglobin Concent 31.4 L 32.0-36.0 g/dL Red Cell Distribution Width 20.9 H 11.0-15.5 % Platelet Count 21 L 130-400 K/uL Mean Platelet Volume 7.5-10.5 fL Immature Granulocyte % (Auto) 4.7 H 0-1 % Neutrophils (%) (Auto) 83.8 H 40.0-77.0 % Lymphocytes (%) (Auto) 5.2 L 21.0-51.0 % Monocytes (%) (Auto) 5.6 3.0-13.0 % Eosinophils (%) (Auto) 0.1 0.0-8.0 % Basophils (%) (Auto) 0.6 0.0-5.0 % Neutrophils # (Auto) 5.8 1.8-7.7 K/uL Lymphocytes # (Auto) 0.4 L 1.0-4.8 K/uL Monocytes # (Auto) 0.4 0.1-1.0 K/uL Eosinophils # (Auto) 0.01 0.00-0.70 K/uL Basophils # (Auto) 0.04 0.00-0.20 K/uL Absolute Immature Granulocyte (auto 0.33 0-1 K/uL Nucleated Red Blood Cells 0.6 H 0.0-0.19 % Sodium Level 152 H 136-145 mmol/L Potassium Level 4.2 3.5-5.1 mmol/L Chloride Level 116 H 101-111 mmol/L Carbon Dioxide Level 31 21-32 mmol/L Blood Urea Nitrogen 39 H 7-18 mg/dL Creatinine 0.9 0.5-1.0 mg/dL Glomerular Filtration Rate Calc 76 >90 mL/min Random Glucose 155 #H 70-105 mg/dL Serum Osmolality 316 H 278-305 mOsm/kg Total Calcium 8.9 8.5-10.1 mg/dL Total Bilirubin 1.2 H 0.2-1.0 mg/dL Aspartate Amino Transf (AST/SGOT) 50 H 10-37 U/L Alanine Aminotransferase (ALT/SGPT) 49 12-78 U/L Alkaline Phosphatase 197 H 50-136 U/L C-Reactive Protein, Quantitative 42.70 H 0.5-3.0 mg/L Total Protein 6.7 6.0-8.3 g/dL Albumin 1.9 L 3.5-5.0 g/dL Test 04/27/25 04:42 04/27/25 03:42 Range/Units Phosphorus Level 2.6 2.5-4.9 mg/dL Magnesium Level 2.00 1.80-2.40 mg/dL Procalcitonin 1.34 H 0.05-0.5 ng/mL Blood Gas Specimen Type Arterial Arterial Blood pH 7.430 7.350-7.450 Arterial Blood Partial Pressure CO2 40 32-45 mmHg Arterial Blood Partial Pressure O2 160.4 H 83.0-108.0 mmHg Arterial Blood HCO3 25.8 21.0-28.0 mmol/L Arterial Blood Oxygen Saturation 99.1 H 94.0-98.0 % Arterial Blood Base Excess 1.5 -2.0-3.0 mmol/L Blood Gas Temperature 37.0 35.5-37.0 CELSIUS Blood Gas Respiration Rate 12.0 min. Blood Gas Vent Mode BIPAP,12,6 ROOM AIR FiO2 40.0 % Blood Gas Specimen Comment DAVID,[facility] / RADIOLOGY: PATIENT: LUCÍA CATALAN ACCT: [id number] LOC: 2C U: [id number] AGE/SX: 54/F ROOM: 219 RE04/22/[address]: VIKRAM CONNER MD : 1970 BED: 1 DIS: STATUS: ADM IN TLOC: SPEC: [id number] EVERARDO: 04/25/25 STATUS: COMP REQ: [id number] RECD: 04/26/[address]: EDNA SOARES MD SOURCE: BLOOD ENTR: 04/26/25-[address]: CARLENE CAMARILLO MD SPDC: BLOOD VIKRAM CONNER MD,SANNA STEIN,GABE VANG,PARAG PIERCE,DANIEL Patterson MD ORDERED: AERO ID & SENS Procedure Result Mini Date-Time --------- --- AEROBIC ID & SENSITIVITIES Final 04/28/25-08 MRL METHICILLIN-RESISTANT STAPHYLOCOCCUS AUREUS RESULT WAS CALLED BY ELVIN HANKS ON 04/28/25 AT 0811. CRITICAL VALUES WERE READ BACK AND ACKNOWLEDGED BY REMIGIO PRASAD ([facility] [place] COLONY DESCRIPTION: DAY 1: GRAM POSITIVE COCCI IN CLUSTERS STAPHYLOCOCCUS AUREUS AEROBIC BOTTLE SENSITIVITY TO FOLLOW MRSA: NOTE: THIS IS A METHICILLIN-RESISTANT STAPH AUREUS STAPHYLOCOCCUS AUREUS-MRSA MRSA M.I.C. RX --------- ---- CLINDAMYCIN <=0.25 R* ERYTHROMYCIN >4 R GENTAMICIN <=4 S VANCOMYCIN 1 S OXACILLIN CHIQUIS >2 R RIFAMPIN <=1 S TETRACYCLINE <=4 S TRIMETHOPRIM/SUFLAMETHOXAZOLE <=0.5/9.5 S PATIENT: LUCÍA CATALAN ACCT: [id number] LOC: [facility] U: [id number] AGE/SX: 54/F ROOM: [facility] RE04/22/[address]: VIKRAM CONNER MD : 1970 BED: 1 DIS: STATUS: ADM IN TLOC: -- SPEC: [id number] EVERARDO: 04/22/25 STATUS: COMP REQ: [id number] RECD: 04/23/[address]: CAROL CLAYTON MD SOURCE: [facility] [place] ENTR: 04/23/25 [facility] DR: CARLENE CAMARILLO MD [facility]: CLEAN CAT ORDERED: AERO ID & SENS Procedure Result Mini Date-Time AEROBIC ID & SENSITIVITIES Final 04/24/25-0654 MRL METHICILLIN-RESISTANT STAPHYLOCOCCUS AUREUS RESULT WAS CALLED BY LARA KATE ON 04/24/25 AT 0651. CRITICAL VALUES WERE READ BACK AND ACKNOWLEDGED BY SATISH TYLER ([facility] [place] COLONY DESCRIPTION: DAY 1: COLONY COUNT: >100,000 CFU/ML GRAM POSITIVE COCCI IN CLUSTERS IDENTIFICATION AND SENSITIVITY TO FOLLOW MRSA: NOTE: THIS IS A METHICILLIN-RESISTANT STAPH AUREUS STAPHYLOCOCCUS AUREUS-MRSA MRSA M.I.C. RX --------- ---- GENTAMICIN <=4 S VANCOMYCIN 1 S OXACILLIN CHIQUIS >2 R RIFAMPIN <=1 S TETRACYCLINE <=4 S TRIMETHOPRIM/SUFLAMETHOXAZOLE <=0.5/9.5 S ------ ------ ASSESSMENT: Methicillin-resistant Staphylococcus aureus bacteremia. Urinary tract infection with methicillin-resistant Staphylococcus aureus. Right Hydronephrosis. Non-ketotic hyperglycemia. Urinary retention requiring Nolasco catheter placement. Morbid obesity. Back pain. Thrombocytopenia. Diabetes mellitus. PLAN: Continue vancomycin per pharmacy protocol. Continue pain management. Continue antidiabetic. Continue GI prophylaxis. Monitor electrolytes. Pending lumbar spine MRI. This case was reviewed and discussed with my supervising physician and the above assessment and plan was formulated and agreed upon. ATTESTATION BY PHYSICIAN I have seen and examined the patient. I reviewed the documentation, medical decision making, and treatment plan as noted by the mid-level provider above. I agree with the findings and plan of care. EDNA SOARES MD, MIRTA L [facility] Apr 28, 2025 22:35
[2025-04-29] VITALS (17 sets, daily range): BP systolic 125–170; BP diastolic 46–81; PULSE 58–91; RESP 18–19; TEMP 98–99.1; O2SAT 92–99
--- NOTE | 2025-04-29 06:13 | CONS ---
REQUESTING PHYSICIAN: Dr. Jessica. REASON FOR CONSULTATION: Right hydronephrosis. HISTORY OF PRESENT ILLNESS: A 54-year-old female admitted to the hospital because of low back pain of about 2-3 weeks' duration. The patient also developed some nausea and vomiting. Ultimately, she also developed difficulty urinating, had a Nolasco catheter placed, which was in place draining clear urine now. Had two CT scans done, which because of her obesity, are difficult to read, but I do not see any significant hydro on the first one 5 days ago and I see no stone. In addition, more recently, a CT scan done because an ultrasound today shows worsening right hydronephrosis, again difficult to identify any obstructing stone. Whether or not the renal pelvis is dilated on CT scan is not clear to me and will await the official radiology report to resolve that diagnostic dilemma. The patient encountered lying in bed, complained of diffuse low back pain. She this pain. It is more on the right flank than on the left flank and in the mid back as well. The patient has no loss of sensation in her lower extremities, although she does have difficulty with urination. ALLERGIES: None. PAST MEDICAL HISTORY: Includes sleep apnea, diabetes, hypertension, hyperlipidemia, hypothyroidism, anxiety, depression, lupus, and morbid obesity. PAST SURGICAL HISTORY: Cholecystectomy and tubal ligation. FAMILY HISTORY: Negative for kidney stones. 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 She has 6 children. She does not smoke or drink. REVIEW OF SYSTEMS: She has no shortness of breath or no chest pain. Her appetite is poor. She has no more nausea. She has no vomiting. She has constipation. No diarrhea. No headaches or dizziness. No nosebleeds. Has difficulty walking and sitting because of severe back pain. PHYSICAL EXAMINATION: GENERAL: Obese female in some distress. VITAL SIGNS: Temperature is 98, blood pressure is 130/62 with a pulse of 78. NECK: No adenopathy or supraclavicular masses palpable. LUNGS: Lung shabazz clear to auscultation. CARDIAC: Heart sounds are best heard in the fifth intercostal space. ABDOMEN: Obese, soft, nontender. BACK: CV tenderness, particularly on the right-hand side, much less on the left. She has mid back pain. EXTERNAL GENITALIA: Nolasco catheter draining clear urine. LABORATORY DATA: The patient's available laboratory data are reviewed in detail. Blood culture, gram-positive cocci and clusters consistent with MRSA. The patient's white count 5.6, hematocrit is 35, platelet count was 24,000 for which she received blood transfusion. The patient's sodium was 129, potassium 4.7, BUN and creatinine initially was 37 to 1.8. Current creatinine is 0.9. Urinalysis shows yellow-curdy urine, specific gravity of 1.014, moderate amounts of blood in the urine. Leukocyte esterase were positive and there were occasional rare bacteria. IMAGING STUDIES: CT scan of the abdomen and pelvis performed on 04/22/2025 and one that was performed today, suggestion of possible hydronephrosis worsening on the right-hand side. In addition, the patient is noted to have a small seroma in the ventral abdominal and subcutaneous wall. Her repeat CT scan confirms cirrhosis of liver with splenomegaly and portal hypertension. The hydronephrosis may be a little bit worse on the CT scan, but again no stone is seen. Finally, her ultrasound clearly shows worsening hydronephrosis and fullness on the right-hand side, right kidney. ASSESSMENT: * Right hydronephrosis. * Etiology unclear secondary to thrombocytopenia. * Urinary tract infection. * Diffuse back pain secondary to diskopathy. RECOMMENDATIONS: * For the patient to proceed with nephrostomy tube placement on the right-hand side by Interventional Radiology as soon as possible. * PT/PTT INR. * The patient's concerns on questioning extensively answered to her apparent satisfaction today. * The patient's medication listing is also reviewed and includes currently Rocephin, vancomycin, Zofran, acetaminophen, insulin, glucagon, magnesium as needed, and p.r.n. pain medication. Addendum: Once the patient is improved clinically and is ready for discharge, follow up with PCP for referral to Urology for further management of her hydronephrosis on the right-hand side as well as her nephrostomy tube. Thank you for the opportunity for providing consultation on your patient. TID: [id number] RECEIPT: [id number]
[2025-04-29 06:32] LABS: IMMATURE GRANULOCYTE ABSOLUTE 0.58 K/uL (0-1); NUCLEATED RED BLOOD CELLS 0.2 % (0.0-0.19); PLATELET COUNT (AUTO) 44 K/uL (130-400); RED BLOOD CELL COUNT(AUTO) 4.31 MIL/uL (4.00-5.50); RED CELL DISTRIBUTION WIDTH 21.6 % (11.0-15.5); WHITE BLOOD COUNT (AUTO) 12.2 K/uL (4.8-10.8)
[2025-04-29 06:40] LABS: INR 1.48 (0.85-1.15)
[2025-04-29 07:00] LABS: ASPARTATE AMINOTRANSFERASE 189.0 U/L (10-37); CREATININE 0.8 mg/dL (0.5-1.0); GLOMERULAR FILTR. RATE CALC 87.0 mL/min (>90); GLUCOSE,RANDOM 257.0 mg/dL (70-105); SODIUM SERUM 139.0 mmol/L (136-145); TOTAL PROTEIN, SERUM 7.0 g/dL (6.0-8.3); UREA NITROGEN, BLOOD 22.0 mg/dL (7-18)
--- NOTE | 2025-04-29 08:44 | NUR ---
TRANSFER CALL RECEIVED TO TRANSFER TO [facility] FOR IgG. NICHO MERCHANT
--- NOTE | 2025-04-29 10:42 | PN ---
LOCATION: 317. SUBJECTIVE: The patient is awake and alert. Her cultures came back ____ Staphylococcus aureus, is on vancomycin, pending MRI of the spine. REVIEW OF SYSTEMS: Generalized body pain. PHYSICAL EXAMINATION: GENERAL: Shows a middle-aged woman. VITAL SIGNS: Blood pressure 151/57, pulse 81, respirations 20. HEENT: Benign. CHEST: Clear. ABDOMEN: Soft. EXTREMITIES: Show no edema. NEUROLOGIC: Awake and oriented. LABORATORY DATA: Lab reviewed. CBC: ____ hemoglobin 10, platelets 44,000. IMPRESSION: * Consumptive thrombocytopenia, improving with conservative measures. * Systemic lupus, off treatment. * Cirrhosis of the liver. * Staphylococcus sepsis. * Encephalopathy. * Hyperglycemia. * Right hydronephrosis. * Urinary tract infection. * Diabetes. PLAN: Continue management per the primary team. Wean the steroids. Continue daily blood counts. Continue the vancomycin. The patient overall improved. TID: [id number] RECEIPT: [id number]
--- NOTE | 2025-04-29 11:00 | NUR ---
TRANSFER CALL PLACED TO PLANNING ASSISTANT REGARDING CRITERIA FOR IgG FOR THIS PT. WILL CALL BACK. NICHO MERCHANT
--- NOTE | 2025-04-29 11:10 | NUR ---
TRANSFER CALL BACK FROM MATERIALS DIRECTOR STATES PT DOES MET CRITERIA AND WILL SEND THE FORMS TO THE PTS CHART FOR DOCTOR TO FILL IN AND SIGN. AIRPORT SALES AGENT , D0CTOR AND PRIMARY NURSE MADE AWARE. PER AIRPORT SALES AGENTSAP [employer] CONSULTANT IS OUT OF NET WORK. MET WITH PT AND DAUGHTER PT INFORM OF ABOVE AND PER PT SHE STATES I ALREADY HAVE MEDICAID I HAVE THE NUMBER BUT IT NOT SHOWING ACTIVE AT PRESENT TIME SO I WANT TO STAY HERE. INFORM HER SHE IS STILL PENDING NEPHROSTOMY TUBE PLACEMENT TODAY AND PLATELETS, SO SHE CAN THINK ABOUT IT BOTH VERBALIZED UNDERSTANDING . NICHO MERCHANT
--- NOTE | 2025-04-29 11:17 | PN ---
[facility] PROGRESS NOTE Date of Service: Apr 29, 2025 Time of Service: 10:37 SUBJECTIVE: This is a 54-year-old female with past medical history of undiagnosed obstructive sleep apnea, diabetes type 2, hypertension, hyperlipidemia, hypothyroidism, restless leg syndrome, anxiety disorder,depression, lupus and severe morbid obesity who presents to the ED for complaints of severe low back p ain which started 2 weeks ago and getting worse for the past 2 days and patient reports she is taking prednisone 30mg po daily for her Lupus she said.Patient also reports she was recently seen in this ED for similar complaints and was diagnosed with acute lumbosacral myofascial strain. 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 Urinalysis consistent with urinary tract infection. CT abdomen and pelvis result revealed no acute intra-abdominal or pelvic pathology cirrhotic liver morphology with splenomegaly, consistent with portal hypertension. Bilateral renal cortical thickening may reflect renal parenchymal disease. While in the ER patient received Rocephin 1 g IV, 1 L NS bolus. We will admit patient for further medical management. 04/23/25 Patient was seen and examined at bedside. She was complaining of chest pain early in the morning but her EKG and troponin were normal. Patient says she got liver cirrhosis from taking Tylenol with codeine in the past for a long time. Remarkable labs are Na 129, K 6.4. Cl 98, BUN 44. Cr 1.2 with no anion gap. New EKG shows sinus rhythm with no tall T-waves or shortened QT interval. We will give her a dose of calcium gluconate and lokelma and recheck her labs. we will hold her iv fluids for now. Her urine anion gap is 36.0 mEq/l. Repeat potassium was 4.2 and 4.6. We will order CT lumbar spine and request nephro and cardio consults due to hyponatremia, RTA and cirrhosis with portal hypertension respectively. We will order lupus, complement , anemia panel due to her abnormal labs and h/o SLE. Hematology recommended solu medrol 125 q6. she might need hydrochloroquine upon discharge for SLE 04/24/25 Patient was seen and examined at bedside. She is complaining of widespread generalized body pain with tender points and generalized weakness, her CPK is going up, we will repeat it and start her on pregabalin. Her labs are improving. She had an EGD done last year that showed grade III varices but lost to follow up with TDS. No GI intervention as her Hb is stable. Will start her on vancomycin. Her home meds have been reconciled. She takes venlaflaxine and pramipexole for depression and restless leg syndrome respectively. Her elevated urine anion gap could be due to BALTAZAR or NSAID induced kidney injury but her creatinine is improving. Pending abdominal ultrasound and CT lumbar spine res ults. 04/25/25 Patient was seen and examined. She was observed sitting in a chair but was unable to answer questions appropriately and appeared confused. Ammonia level was elevated at 59; lactulose has been initiated at 30 mL TID. She is currently receiving vancomycin for MRSA identified in the urine. Right upper quadrant ultrasound demonstrated chronic hepatic changes with a hypoechoic lesion in the right lobe of the liver, possibly representing a complex cyst. CT of the lumbar spine revealed moderate lumbar spondylosis and diffuse osteopenia. Her platelet count is 37 and showing slow improvement. Dr. Urias, covering for Dr. Lorenzo, recommended holding solu-medrol for now. If platelet count declines tomorrow, steroids may need to be restarted. Ammonia and additional labs will be rechecked in the morning. 04/26/25 Patient was seen at bedside. Will request a transfer to the ICU due to worsening agitation and hypercapnic respiratory failure requiring BIPAP support.Will order Precedex drip for sedation to improve tolerance of non-invasive ventilation. Imaging studies including CT head and MRI spine have been ordered to evaluate for underlying neurologic causes. Patient remains hemodynamically stable; pulmonary consult is in place. She is growing gram positive cocci in clusters in her blood, will request ID input on antibiotics as she was on vancomycin previously and was started on bactrim for MRSA in urine. Her platelet count is 36 and solu-medrol is on hold. Ammonia improved from 59 to 12 04/27/25 Patient was evaluated at bedside. She was transferred to the ICU yesterday due to agitation and hypercapnia, requiring a Precedex drip as she was removing her nasal cannula. BiPAP was initiated to support ventilation, and she is now resting comfortably. CT brain was unremarkable with no acute findings. She has a free water deficit of approximately 1.4 liters, for which D5W will be administered. CRP has decreased from 83.5 to 56.4. However, platelets have dropped from 36 to 28, and hematology is closely monitoring her. The patient remains NPO. We wanted to start NG tube feeding but patient has h/o esophageal varices. We will await gastroenterologys recommendations, including possible EGD if indicated. 04/28/25 Patient was evaluated at bedside, she is bed bound not very responsive to questions. She is currently off BiPAP and precedex drip. Her agitation has improved and she is resting comfortably in bed. She has MRSA bacteremia and we will repeat blood cultures. She is currently on vancomycin. She has moderate right hydronephrosis which is increasing, we will request urology consult. Her sodium is trending upwards from 147 to 152 and she has a free water deficit of 2.4 L , we will increase D5 rate from 75 to 150mls/hr. CRP improving from 56.4 to 42.7. Platelets dropped from 28 to 21, we will follow Dr. Lorenzo's recommendations and his plan is give her IgG. She is not bleeding actively. 04/29/25 Patient was evaluated at bedside. She is alert, awake and oriented. She was minimally verbal yesterday but is now more interactive, expressing pain and discussing her medical history. She reports diffuse joint pain and is unable to lift her arms or legs due to significant discomfort. She has generalized joint tenderness and weak brazer production line strength bilaterally. urologist Dr. Morris recommended nephrostomy tube on her right due to hydronephrosis. Her platelets improved to 44 without any intervention. She will be getting platelets for the procedure. She has infectious spondylodiscitis which could be the source of her bacteremia. We have requested transfer to [facility] but senior data warehouse developer said Dr. Sanchez has privileges at [facility] and will try to consult him. Her white count went up to 12.2, LFTs mildly going up. We will hold off on gabapentin for now. REVIEW OF SYSTEMS deferred due to patient's condition PHYSICAL EXAM GENERAL APPEARANCE: The patient is alert, awake and oriented NEUROLOGICAL: Cranial nerves II-XII grossly intact. No sensory deficits. HEENT: Face is symmetric. Pupils are equal and reactive. Extraocular movements are intact. NECK: Supple. No JVD. No thyromegaly. No submental, submandibular, pre- /postauricular, occipital or supraclavicular lymphadenopathy. CHEST: Normal chest expansion. LUNGS: Absence of any rales, rhonchi or any wheezing. CARDIOVASCULAR: Regular. S1 and S2 normal. No appreciable rubs, murmurs or gallops. ABDOMEN: Soft, nontender, and nondistended. There is no rebound, voluntary guarding, or rigidity. : Deferred EXTREMITIES: Non-edematous and not cyanotic. No clubbing. Good capillary refill. SKIN: multiple ecchymoses noted at venipuncture sites Vital Signs (last 8hr) Date Time Temp Pulse Resp B/P (MAP) Pulse Ox O2 Delivery O2 Flow Rate FiO2 04/29/25 08:24 98.2 89 18 138/66 90 Room Air 04/29/25 07:34 85 18 N/A Room Air 21 04/29/25 04:57 98.1 81 18 151/57 92 Room Air LABS: Laboratory: Test 04/29/25 06:07 04/29/25 05:49 04/28/25 15:25 04/28/25 13:10 Range/Units White Blood Count 12.2 H 4.8-10.8 K/uL Red Blood Count 4.31 4.00-5.50 MIL/uL Hemoglobin 10.7 L 12.0-16.0 g/dL Hematocrit 34.4 L 36-48 % Mean Corpuscular Volume 79.8 79-99 fL Mean Corpuscular Hemoglobin 24.8 L 27.0-33.0 pg Mean Corpuscular Hemoglobin Concent 31.1 L 32.0-36.0 g/dL Red Cell Distribution Width 21.6 H 11.0-15.5 % Platelet Count 44 #L 130-400 K/uL Mean Platelet Volume 7.5-10.5 fL Immature Granulocyte % (Auto) 4.8 H 0-1 % Neutrophils (%) (Auto) 88.4 H 40.0-77.0 % Lymphocytes (%) (Auto) 3.8 L 21.0-51.0 % Monocytes (%) (Auto) 2.5 L 3.0-13.0 % Eosinophils (%) (Auto) 0.2 0.0-8.0 % Basophils (%) (Auto) 0.3 0.0-5.0 % Neutrophils # (Auto) 10.8 H 1.8-7.7 K/uL Lymphocytes # (Auto) 0.5 L 1.0-4.8 K/uL Monocytes # (Auto) 0.3 0.1-1.0 K/uL Eosinophils # (Auto) 0.02 0.00-0.70 K/uL Basophils # (Auto) 0.04 0.00-0.20 K/uL Absolute Immature Granulocyte (auto 0.58 0-1 K/uL Nucleated Red Blood Cells 0.2 H 0.0-0.19 % Prothrombin Time 15.1 H 9.6-11.6 SEC Prothromb Time International Ratio 1.48 H 0.85-1.15 Activated Partial Thromboplast Time 33.4 26.3-35.5 SEC Sodium Level 139 136-145 mmol/L Potassium Level 3.6 3.5-5.1 mmol/L Chloride Level 104 101-111 mmol/L Carbon Dioxide Level 29 21-32 mmol/L Blood Urea Nitrogen 22 H 7-18 mg/dL Creatinine 0.8 0.5-1.0 mg/dL Glomerular Filtration Rate Calc 87 >90 mL/min Random Glucose 257 H 70-105 mg/dL Total Calcium 7.8 L 8.5-10.1 mg/dL Total Bilirubin 2.5 H 0.2-1.0 mg/dL Aspartate Amino Transf (AST/SGOT) 189 H 10-37 U/L Alanine Aminotransferase (ALT/SGPT) 111 H 12-78 U/L Alkaline Phosphatase 332 H 50-136 U/L Ammonia 18 11-32 umol/L C-Reactive Protein, Quantitative 52.00 H 0.5-3.0 mg/L Total Protein 7.0 6.0-8.3 g/dL Albumin 1.8 L 3.5-5.0 g/dL Procalcitonin 0.94 H 0.05-0.5 ng/mL Whole Blood Glucose 221 H 70-110 MG/DL Vancomycin Level Trough 9.6 #L 10.0-20.0 UG/ML Urine Random Creatinine 27.84 L 30-135 mg/dL Urine Random Sodium 33 L 40-220 mmol/l Urine Random Potassium 20 L 25-125 mmol/L Urine Random Chloride 57 L 110-250 mmol/L Test 04/28/25 02:28 Range/Units Serum Osmolality 316 H 278-305 mOsm/kg Current Medications Medications (Trade) Dose Ordered Sig/Roberth Route PRN Reason Start Time Stop Time Status Last Admin Dose Admin Acetaminophen (TYLenol 325MG TAB) 650 mg Q4H PRN PO MILD PAIN (1-3) 04/22/25 20:00 05/22/25 19:59 04/24/25 20:44 650 MG Acetaminophen (TYLenol 325MG TAB) 650 mg Q6H PRN PO TEMPERATURE GREATER THAN 101.5 04/22/25 20:00 05/22/25 19:59 04/23/25 10:02 650 MG Atorvastatin Calcium (LIPItor 20MG) 20 mg HS PO 04/24/25 21:00 05/24/25 20:59 04/28/25 20:54 20 MG Ceftriaxone Sodium 1 gm/ Sodium Chloride 50 ml @ 100 mls/hr BID IV 04/22/25 21:00 04/22/25 19:59 DC Ceftriaxone Sodium (ROCEphine 1G INJ) 1 gm BID IVPB 04/22/25 21:00 04/22/25 20:44 DC Ceftriaxone Sodium (ROCEphine 1G INJ) 1 gm BID IVPB 04/23/25 09:00 04/25/25 12:36 DC 04/25/25 09:44 1 GM Dexmedetomidine/ Sodium Chloride (PRECEdex 200MCG/ 50ML-NS) 200 mcg PROTOCOL IV 04/26/25 12:00 04/26/25 14:54 DC Dexmedetomidine/ Sodium Chloride (PRECEdex 400MCG/ 100ML-NS) 400 mcg PROTOCOL PRN IV ANXIETY/AGITATION 04/26/25 19:30 05/26/25 19:29 04/27/25 23:31 400 MCG Dexmedetomidine/ Sodium Chloride (PRECEdex 400MCG/ 100ML-NS) 400 mcg PROTOCOL STAT IV 04/26/25 14:53 04/26/25 14:58 DC 04/26/25 15:18 400 MCG Dextrose 1,000 ml @ 150 mls/hr Q6H40M IV 04/26/25 12:00 05/26/25 11:59 04/29/25 04:27 150 MLS/HR Dextrose (D50w) 50 ml AD PRN IV HYPOGLYCEMIA PROTOCOL 04/22/25 20:00 05/22/25 19:59 Famotidine (Pepcid 20mg Tab) 20 mg DAILY PO 04/23/25 09:00 04/24/25 09:48 DC 04/23/25 09:33 20 MG Gabapentin (NEURontin 300 MG CAP) 300 mg BID PO 04/24/25 21:00 04/28/25 09:10 DC 04/25/25 21:51 300 MG Glucagon (Glucagon 1mg Kit) 1 mg AD PRN IM HYPOGLYCEMIA PROTOCOL 04/22/25 20:00 05/22/25 19:59 Heparin Sodium (Porcine) (HEParin 5,000 UNIT VIAL) 5,000 unit Q8H SQ 04/25/25 09:00 04/25/25 08:40 DC Hydromorphone HCl (DiLAUDid 0.5MG INJ) 0.5 mg BIDPRN PRN IVP SEVERE PAIN (7-10) 04/25/25 19:00 04/30/25 18:59 04/28/25 21:06 0.5 MG Hydromorphone HCl (DiLAUDid 0.5MG INJ) 0.5 mg Q6H PRN IVP SEVERE PAIN (7-10) 04/23/25 14:00 04/25/25 08:25 DC 04/25/25 04:14 0.5 MG Insulin Glargine (LANtus 100 UNITS/ML 10 ML VIAL) 10 units HS SQ 04/24/25 21:00 04/24/25 16:57 DC Insulin Glargine (LANtus 100 UNITS/ML 10 ML VIAL) 10 units ONCE STAT SQ 04/24/25 10:54 04/24/25 11:00 DC 04/24/25 11:19 10 UNITS Insulin Glargine (LANtus 100 UNITS/ML 10 ML VIAL) 15 units HS SQ 04/24/25 21:00 04/24/25 17:06 DC Insulin Glargine (LANtus 100 UNITS/ML 10 ML VIAL) 30 units ONCE SQ 04/24/25 17:00 04/25/25 06:19 DC 04/24/25 18:16 30 UNITS Insulin Glargine (LANtus 100 UNITS/ML 10 ML VIAL) 40 units DAILY SQ 04/29/25 09:00 05/29/25 08:59 Insulin Glargine (LANtus 100 UNITS/ML 10 ML VIAL) 50 units DAILY SQ 04/26/25 09:00 04/29/25 06:49 DC 04/28/25 08:46 50 UNITS Insulin Human Regular (humuLIN R 100 UNIT/ML 3ML) 5 unit TIDAC SQ 04/24/25 17:00 04/24/25 17:06 DC Insulin Human Regular (humuLIN R 100 UNIT/ML 3ML) 8 unit TIDAC SQ 04/28/25 07:30 05/28/25 07:29 Insulin Human Regular (humuLIN R 100 UNIT/ML 3ML) 10 unit TIDAC SQ 04/24/25 17:00 04/25/25 06:17 DC 04/25/25 06:15 10 UNIT Insulin Human Regular (humuLIN R 100 UNIT/ML 3ML) 15 unit TIDAC SQ 04/26/25 11:30 04/27/25 20:30 DC Insulin Human Regular (humuLIN R 100 UNIT/ML 3ML) 25 unit TIDAC SQ 04/25/25 07:30 04/26/25 07:58 DC 04/25/25 17:39 25 UNIT Insulin Human Regular (humuLIN R 100 UNIT/ML 3ML) INSULIN SLIDING SCAL... ACHS SQ 04/22/25 21:00 04/24/25 16:16 DC 04/24/25 11:18 8 UNIT Insulin Human Regular (humuLIN R 100 UNIT/ML 3ML) INSULIN SLIDING SCAL... ACHS SQ 04/24/25 16:30 04/25/25 14:09 DC 04/25/25 11:57 16 UNIT Insulin Human Regular (humuLIN R 100 UNIT/ML 3ML) INSULIN SLIDING SCAL... ACHS SQ 04/25/25 16:30 05/25/25 16:29 04/27/25 17:06 10 UNIT Insulin Human Regular (humuLIN R 100 UNIT/ML 3ML) INSULIN SLIDING SCAL... Q4H SQ 04/27/25 20:30 04/28/25 09:11 DC 04/28/25 06:00 4 UNIT Lactated Ringer's 1,000 ml @ 100 mls/hr Q10H IV 04/22/25 20:00 04/23/25 10:09 DC 04/23/25 06:00 100 MLS/HR Lactulose (Constulose 20gm/ 30ml Udcup) 30 gm TID PO 04/25/25 11:00 05/25/25 10:59 04/28/25 21:06 30 GM Levothyroxine Sodium (SYNTHroid 125MCG TAB) 125 mcg DAILY@0630 PO 04/25/25 06:30 05/25/25 06:29 Magnesium Sulfate 50 ml @ 0 mls/hr PROTOCOL PRN IV OTHER [SEE ORDER COMMENTS] 04/22/25 20:00 05/22/25 19:59 Methylprednisolone Sodium Succinate (Solu-medROL 125MG) 125 mg Q6H IVP 04/23/25 08:00 04/28/25 09:10 DC 04/25/25 09:45 125 MG Metoprolol Succinate (TopROL XL) 50 mg AM PO 04/25/25 09:00 05/25/25 08:59 04/25/25 09:45 50 MG Ondansetron HCl (zoFRAN 4MG INJ) 4 mg Q6H PRN IV NAUSEA/VOMITING 04/22/25 20:00 05/22/25 19:59 04/22/25 20:10 4 MG Pantoprazole Sodium (PROTonix 40MG INJ) 40 mg DAILY IVP 04/24/25 10:00 05/24/25 09:59 04/29/25 08:19 40 MG Potassium Chloride 100 ml @ 100 mls/hr AD PRN IV POTASSIUM PROTOCOL 04/22/25 20:00 05/22/25 19:59 Potassium Chloride (K-Dur/Klor-Con 20meq) 20 meq AD PRN PO POTASSIUM PROTOCOL 04/22/25 20:00 05/22/25 19:59 Potassium Chloride (KCl 10% Elixir 20meq/15ml) 20 meq AD PRN PO POTASSIUM PROTOCOL 04/22/25 20:00 05/22/25 19:59 Pramipexole Dihydrochloride (miraPEX 0.25MG TAB) 0.5 mg HS PO 04/24/25 21:00 05/24/25 20:59 04/28/25 20:54 0.5 MG Pregabalin (MNAqpy86DS) 75 mg BID PO 04/24/25 21:00 04/24/25 14:49 DC Sodium Chloride 500 ml @ 0 mls/hr Q0M IV 04/25/25 11:00 05/25/25 10:59 Sodium Zirconium Cyclosilicate (Lokelma 10gm Powder) 10 gm TID PO 04/23/25 21:00 04/23/25 14:11 DC Tramadol HCl (UltRAM) 50 mg Q6H PRN PO MODERATE PAIN (4-6) 04/24/25 22:30 04/29/25 22:29 04/28/25 13:55 50 MG Trimethoprim/ Sulfamethoxazole (BactRIM DS) 1 tab BID PO 04/25/25 21:00 04/26/25 14:50 DC 04/25/25 21:51 1 TAB Vancomycin HCl 250 ml @ 125 mls/hr Q12H IV 04/24/25 23:00 04/25/25 12:36 DC 04/25/25 11:43 125 MLS/HR Vancomycin HCl 250 ml @ 125 mls/hr Q12H IV 04/26/25 15:30 04/28/25 03:13 DC 04/27/25 15:22 125 MLS/HR Vancomycin HCl 250 ml @ 125 mls/hr Q12H IV 04/28/25 15:30 04/28/25 18:53 DC Vancomycin HCl 250 ml @ 125 mls/hr Q12H IV 04/28/25 20:00 05/08/25 19:59 04/29/25 08:18 125 MLS/HR Vancomycin HCl (Vancomycin Protocol) 1 each AD IV 04/24/25 10:30 04/25/25 12:36 DC Vancomycin HCl (Vancomycin Protocol) 1 each AD IV 04/26/25 15:00 05/10/25 14:59 Venlafaxine HCl (EffEXOR XR 37.5mg CAP) 37.5 mg DAILY PO 04/24/25 16:00 05/24/25 15:59 04/25/25 09:45 37.5 MG Venlafaxine HCl (EffEXOR XR 37.5mg CAP) 37.5 mg DAILY PO 04/25/25 09:00 04/24/25 14:50 DC PATIENT: LUCÍA CATALAN MR#: [id number] : 1970 SEX: F AGE: 54 LOCATION: [facility] ORDER 06 STATUS: ADM IN REPORT#: [id number] SERVICE 05 REASON: RIGHT HYDRONEPHROSIS ORDERING PHYSICIAN: GALINDO MORRIS MD PROCEDURE: ABD PEL WO - CT ABDOMEN/PELVIS W/O CONTRAST ADDENDUM REPORT ADDENDUM: Results were shared by telephone at 21:25 pm on 04/28/25 and acknowledged by Patient's Nurse Mr.Daniel Ramos. /[place] ADDENDUM: Addendum: The right renal pelvis and calyces are mildly prominent with normal caliber of the right ureter. No radiopaque renal calculus is appreciated. Findings may reflect a UPJ stricture. If clinically warranted this may be further characterized with CT urography. /[place] EXAMINATION: CT ABDOMEN AND PELVIS WITHOUT IV CONTRAST CLINICAL HISTORY: Patient presents with right hydronephrosis. COMPARISON: CT dated April 22, 2025. CONTRAST: No IV contrast. TECHNIQUE: Axial computed tomography images of the abdomen and pelvis without intravenous contrast; sagittal and coronal reformatted images submitted for interpretation. FINDINGS: LUNG BASES: Bilateral mild pleural effusion with adjacent basal subsegmental atelectasis. LIVER: The liver measures 10.3 cm in craniocaudal span and demonstrates nodular contour, concerning for cirrhosis. GALLBLADDER AND BILE DUCTS: The gallbladder is surgically absent. No biliary ductal dilatation. PANCREAS: There is peripancreatic fat stranding and fluid without any organized pancreatic or peripancreatic collections, concerning for acute edematous interstitial pancreatitis. Multiple portosystemic collateral vascular channels are noted in the peripancreatic region. SPLEEN: The spleen is enlarged, measuring 14.4 cm. ADRENAL GLANDS: Unremarkable. KIDNEYS, URETERS, AND BLADDER: No hydronephrosis or hydroureter. No renal or ureteric calculi. The urinary bladder is empty with Nolasco???s catheter bulb in place. STOMACH AND BOWEL: Patchy fat stranding is seen in the right paracolic gutter. Moderate amount of fecal content in the colon, concerning for constipation. The stomach and remaining bowel loops are unremarkable. No obstruction, enteritis, or colitis. APPENDIX: No evidence of acute appendicitis on CT examination. PERITONEUM: Minimal ascites. LYMPH NODES: No lymphadenopathy is evident. REPRODUCTIVE: The uterus and both ovaries are atrophic, consistent with postmenopausal status. VASCULATURE: Multiple portosystemic collateral vascular channels in the periportal region. No abdominal aortic aneurysm. BONES: Multilevel moderate degenerative changes in the spine. No aggressive-appearing osseous lesion or acute osseous pathology. IMPRESSION: Nodular liver contour and reduced liver span measuring 10.3 cm, concerning for cirrhosis. Peripancreatic fat stranding and fluid without any organized pancreatic or peripancreatic collections, concerning for acute edematous interstitial pancreatitis. Splenomegaly measuring 14.4 cm. Multiple portosystemic collateral vascular channels in the periportal and peripancreatic regions. Bilateral mild pleural effusion with adjacent basal subsegmental atelectasis. Minimal ascites. Patchy fat stranding in the right paracolic gutter. Moderate amount of colonic fecal content, concerning for constipation. Surgically absent gallbladder. Urinary bladder decompressed with Nolasco???s bulb in place. No evidence of hydronephrosis, hydroureter, or urolithiasis. /[place] DICTATED BY: BROOKLYN LOPEZ Jr., MD DATE: 04/28/252128 ELECTRONICALLY SIGNED BY: DATE: EXAMINATION: CT ABDOMEN AND PELVIS WITHOUT IV CONTRAST CLINICAL HISTORY: Patient presents with right hydronephrosis. COMPARISON: CT dated April 22, 2025. CONTRAST: No IV contrast. TECHNIQUE: Axial computed tomography images of the abdomen and pelvis without intravenous contrast; sagittal and coronal reformatted images submitted for interpretation. FINDINGS: LUNG BASES: Bilateral mild pleural effusion with adjacent basal subsegmental atelectasis. LIVER: The liver measures 10.3 cm in craniocaudal span and demonstrates nodular contour, concerning for cirrhosis. GALLBLADDER AND BILE DUCTS: The gallbladder is surgically absent. No biliary ductal dilatation. PANCREAS: There is peripancreatic fat stranding and fluid without any organized pancreatic or peripancreatic collections, concerning for acute edematous interstitial pancreatitis. Multiple portosystemic collateral vascular channels are noted in the peripancreatic region. SPLEEN: The spleen is enlarged, measuring 14.4 cm. ADRENAL GLANDS: Unremarkable. KIDNEYS, URETERS, AND BLADDER: No hydronephrosis or hydroureter. No renal or ureteric calculi. The urinary bladder is empty with Nolasco???s catheter bulb in place. STOMACH AND BOWEL: Patchy fat stranding is seen in the right paracolic gutter. Moderate amount of fecal content in the colon, concerning for constipation. The stomach and remaining bowel loops are unremarkable. No obstruction, enteritis, or colitis. APPENDIX: No evidence of acute appendicitis on CT examination. PERITONEUM: Minimal ascites. LYMPH NODES: No lymphadenopathy is evident. REPRODUCTIVE: The uterus and both ovaries are atrophic, consistent with postmenopausal status. VASCULATURE: Multiple portosystemic collateral vascular channels in the periportal region. No abdominal aortic aneurysm. BONES: Multilevel moderate degenerative changes in the spine. No aggressive-appearing osseous lesion or acute osseous pathology. IMPRESSION: Nodular liver contour and reduced liver span measuring 10.3 cm, concerning for cirrhosis. Peripancreatic fat stranding and fluid without any organized pancreatic or peripancreatic collections, concerning for acute edematous interstitial pancreatitis. Splenomegaly measuring 14.4 cm. Multiple portosystemic collateral vascular channels in the periportal and peripancreatic regions. Bilateral mild pleural effusion with adjacent basal subsegmental atelectasis. Minimal ascites. Patchy fat stranding in the right paracolic gutter. Moderate amount of colonic fecal content, concerning for constipation. Surgically absent gallbladder. Urinary bladder decompressed with Nolasco???s bulb in place. No evidence of hydronephrosis, hydroureter, or urolithiasis. /[place] DICTATED BY: BROOKLYN LOPEZ Jr., MD DATE: 04/28/252111 ELECTRONICALLY SIGNED BY: BROOKLYN LOPEZ Jr., MD DATE: 04/28/252111 DIAGNOSTICS / RADIOLOGY: PATIENT: LUCÍA CATALAN MR#: [id number] : 1970 SEX: F AGE: 54 LOCATION: 3[facility] ORDER 1051 STATUS: ADM IN REPORT#: [id number] SERVICE 1049 REASON: CHRONIC BACK PAIN ORDERING PHYSICIAN: EDNA SOARES MD PROCEDURE: L SPN WO - MR SPINAL CANAL, LUMBAR WO CON ADDENDUM REPORT ADDENDUM: Results were shared by telephone at 21:25 pm on 04/28/25 and acknowledged by Patient's Nurse Quan Richard. /[place] EXAMINATION: MR LUMBAR SPINE WITHOUT INTRAVENOUS CONTRAST CLINICAL HISTORY: Patient presents with chronic back pain. COMPARISON: Compared to prior CT lumbar spine dated April 23, 2025. TECHNIQUE: Magnetic resonance images of the lumbar spine obtained in multiple planes without intravenous contrast. CONTRAST: None. FINDINGS: VERTEBRAE: The first non???rib-bearing vertebra is designated as the L1 vertebral body. Patchy marrow edema is present within the anterior aspects of the L2 and L3 vertebral bodies. Multilevel small marginal osteophytes are present. No acute fracture or focal osseous lesion. Modic type II changes along adjacent endplates of the L4-L5 intervertebral disc level. Schmorl's node in the lower endplate of L2 vertebra. ALIGNMENT: Bony alignment is anatomic. SPINAL CORD AND CAUDA EQUINA: No abnormal cord signal or mass. Prevertebral soft tissue edema is seen at the L2 and L3 levels. Intramuscular edema is present in the right psoas muscle. FINDINGS BY LEVEL: T12???L1: Diffuse disc bulge with central disc protrusion indenting the anterior thecal sac and bilateral traversing and L1 exiting nerve roots. Bilateral mild to moderate neural foraminal narrowing. Midsagittal AP canal diameter: 13 mm. L1???L2: No central canal or foraminal stenosis. Midsagittal AP canal diameter: 16 mm. L2???L3: Diffuse disc bulge indenting the anterior thecal sac and bilateral traversing and L2 exiting nerve roots. Bilateral moderate neural foraminal narrowing. Intradiscal collection within the L2???L3 disc space. Features concerning for infectious spondylodiscitis centered at the L2???L3 disc and adjacent L2 and L3 vertebral bodies. Midsagittal AP canal diameter: 11 mm. L3???L4: Diffuse disc bulge with ligamentum flavum hypertrophy and facet arthropathy. Indentation of the anterior thecal sac and bilateral traversing and L3 exiting nerve roots. Bilateral moderate to severe neural foraminal narrowing. Midsagittal AP canal diameter: 9.7 mm. L4???L5: Diffuse disc bulge with ligamentum flavum hypertrophy and facet arthropathy. Indentation of the anterior thecal sac and bilateral traversing and L4 exiting nerve roots. Bilateral severe neural foraminal narrowing. Midsagittal AP canal diameter: 9.8 mm. L5???S1: Diffuse disc bulge indenting the anterior thecal sac and bilateral traversing and L5 exiting nerve roots. Bilateral mild to moderate neural foraminal narrowing. Midsagittal AP canal diameter: 12 mm. PARASPINAL SOFT TISSUES: Unremarkable aside from right psoas intramuscular edema. 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 Recommend contrast MRI lumbar spine. Multilevel diffuse disc bulges from T12???L1 through L5???S1 with varying degrees of thecal sac indentation and bilateral traversing and exiting nerve root compression. Severe bilateral neural foraminal narrowing at L4???L5, moderate to severe at L3???L4, and moderate at L2???L3 and L5???S1. Ligamentum flavum hypertrophy and facet arthropathy at L3???L4 and L4???L5 levels. Multilevel disc desiccation and marginal osteophytes consistent with spondylotic changes. Spinal canal stenosis with midsagittal AP diameters of 11 mm or less at L2???L3, L3???L4, and L4???L5. /[place] DICTATED BY: BROOKLYN LOPZE Jr., MD DATE: 04/28/252130 ELECTRONICALLY SIGNED BY: DATE: EXAMINATION: MR LUMBAR SPINE WITHOUT INTRAVENOUS CONTRAST CLINICAL HISTORY: Patient presents with chronic back pain. COMPARISON: Compared to prior CT lumbar spine dated April 23, 2025. TECHNIQUE: Magnetic resonance images of the lumbar spine obtained in multiple planes without intravenous contrast. CONTRAST: None. FINDINGS: VERTEBRAE: The first non???rib-bearing vertebra is designated as the L1 vertebral body. Patchy marrow edema is present within the anterior aspects of the L2 and L3 vertebral bodies. Multilevel small marginal osteophytes are present. No acute fracture or focal osseous lesion. Modic type II changes along adjacent endplates of the L4-L5 intervertebral disc level. Schmorl's node in the lower endplate of L2 vertebra. ALIGNMENT: Bony alignment is anatomic. SPINAL CORD AND CAUDA EQUINA: No abnormal cord signal or mass. Prevertebral soft tissue edema is seen at the L2 and L3 levels. Intramuscular edema is present in the right psoas muscle. FINDINGS BY LEVEL: T12???L1: Diffuse disc bulge with central disc protrusion indenting the anterior thecal sac and bilateral traversing and L1 exiting nerve roots. Bilateral mild to moderate neural foraminal narrowing. Midsagittal AP canal diameter: 13 mm. L1???L2: No central canal or foraminal stenosis. Midsagittal AP canal diameter: 16 mm. L2???L3: Diffuse disc bulge indenting the anterior thecal sac and bilateral traversing and L2 exiting nerve roots. Bilateral moderate neural foraminal narrowing. Intradiscal collection within the L2???L3 disc space. Features concerning for infectious spondylodiscitis centered at the L2???L3 disc and adjacent L2 and L3 vertebral bodies. Midsagittal AP canal diameter: 11 mm. L3???L4: Diffuse disc bulge with ligamentum flavum hypertrophy and facet arthropathy. Indentation of the anterior thecal sac and bilateral traversing and L3 exiting nerve roots. Bilateral moderate to severe neural foraminal narrowing. Midsagittal AP canal diameter: 9.7 mm. L4???L5: Diffuse disc bulge with ligamentum flavum hypertrophy and facet arthropathy. Indentation of the anterior thecal sac and bilateral traversing and L4 exiting nerve roots. Bilateral severe neural foraminal narrowing. Midsagittal AP canal diameter: 9.8 mm. L5???S1: Diffuse disc bulge indenting the anterior thecal sac and bilateral traversing and L5 exiting nerve roots. Bilateral mild to moderate neural foraminal narrowing. Midsagittal AP canal diameter: 12 mm. PARASPINAL SOFT TISSUES: Unremarkable aside from right psoas intramuscular edema. 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 Recommend contrast MRI lumbar spine. Multilevel diffuse disc bulges from T12???L1 through L5???S1 with varying degrees of thecal sac indentation and bilateral traversing and exiting nerve root compression. Severe bilateral neural foraminal narrowing at L4???L5, moderate to severe at L3???L4, and moderate at L2???L3 and L5???S1. Ligamentum flavum hypertrophy and facet arthropathy at L3???L4 and L4???L5 levels. Multilevel disc desiccation and marginal osteophytes consistent with spondylotic changes. Spinal canal stenosis with midsagittal AP diameters of 11 mm or less at L2???L3, L3???L4, and L4???L5. 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 POA Acute urinary tract infection due to MRSA POA Hypervolemic hyponatremia POA Chronic anemia POA Hyponatremia POA Acute kidney injury on renal insufficiency POA Hyperglycemia due to uncontrolled diabetes POA Hypocalcemia POA Cirrhotic liver with splenomegaly consistent with portal hypertension per CT POA Esophageal varices Renal parenchymal disease per CT POA Hypothyroidism POA Hypocalcemia POA Hyperlipidemia POA Hypertension POA Anxiety disorder POA Depression POA Restless leg syndrome POA Suspected obstructive sleep apnea untreated POA Morbid obesity POA PLAN: Infectious spondylodiscitis L2-L3 Neurosurgery consult with Dr. Sanchez Continue IV antibiotics Neuro checks q4 MRSA bacteremia IV Vancomycin with trough monitoring. Repeat blood cultures - preliminary , negative Contact precautions Acute hypoxic hypercapnic respiratory failure Initiate BIPAP for ventilatory support; monitor ABGs and respiratory rate. Start dexmedetomidine drip for sedation to improve BIPAP compliance. Transfer to ICU for close respiratory and hemodynamic monitoring. Altered Mental Status due to Hepatic Encephalopathy or steroids induced psychosis Start lactulose 30 mg TID Monitor ammonia levels, mental status, and signs of worsening encephalopathy. Discontinue or hold steroids Monitor neuro status and reassess mental status regularly with steroid adjustments. Intractable lower back pain Continue multimodal pain management: acetaminophen, topical agents, consider gabapentin if neuropathic. Currently on dilaudid CT lumbar spine ESR elevated Thrombocytopenia due to ITP Monitor CBC daily; trend platelets. Rule out DIC, splenic sequestration (cirrhosis-related), and medication-induced causes. Avoid NSAIDs, hematology consult Currently on solu medrol 125mg q6, on hold . Acute UTI Monitor for signs of urosepsis Encourage hydration and bladder care Hyponatremia Treat underlying hyperglycemia; avoid rapid sodium correction. Monitor serum Na closely; consider fluid restriction if dilutional. Cirrhosis with portal hypertension Monitor for decompensation: encephalopathy, ascites, variceal bleeding. Consider beta sergio for variceal prophylaxis. Monitor LFTs, INR, and ammonia Her MELD- Na score is 24 points, 14-15% estimated 90 day mortality Hyperglycemia (Uncontrolled Diabetes) Start basal/bolus insulin regimen; monitor blood glucose QID. Educate on diet and insulin compliance; monitor for DKA if concern. Correct electrolytes accordingly. Chronic anemia Monitor trends; assess for iron/B12/folate deficiency. Avoid transfusion unless symptomatic or Hgb <7. GI consult ATTESTATION BY PHYSICIAN I have seen and examined the patient. I reviewed the documentation, medical decision making, and treatment plan as noted by the resident provider above. I agree with the findings and plan of care. Cory Pimentel MD, NIHITHA MD Apr 29, 2025 11:17
--- NOTE | 2025-04-29 12:58 | PN ---
FOLLOWUP PROGRESS NOTE SUBJECTIVE: A 54-year-old female initially presented with underlying failure to thrive. The patient with significant thrombocytopenia. She has had acute on chronic renal failure in the hospital. The patient also with significant electrolyte abnormalities including the hypernatremia. She remains on the D5W and the patient is being seen as a followup visit for all of the above. REVIEW OF SYSTEMS: CONSTITUTIONAL: She is feeling improved. HEENT: No change in vision. No change in hearing. CARDIOVASCULAR: There is no current chest pain or palpitations. PULMONARY: She has chronic shortness of breath. GASTROINTESTINAL: She is tolerating a diet. MUSCULOSKELETAL: Complaints of weakness. PHYSICAL EXAMINATION: VITAL SIGNS: Blood pressure is 127/46, pulse in the 90s, afebrile. GENERAL: Chronically ill female, older than appearing. HEENT: Head is atraumatic. Pupils equal, roving to light. Oropharynx is without exudate. Nares clear. NECK: There is no JVP. There is no thyromegaly. No mass. CARDIOVASCULAR: Regular. There is no S3 or S4 gallop. LUNGS: Coarse with equal thoracic movement. ABDOMEN: Soft, nondistended, nontender. EXTREMITIES: Reveal no clubbing, no cyanosis. NEUROLOGICAL: She is more awake and alert. LABORATORY DATA: Sodium 139, potassium 3.6, BUN 22, creatinine 0.8. Hemoglobin 10, hematocrit 34. IMPRESSION: * Acute renal failure. * Electrolyte abnormalities. * Thrombocytopenia. * Hypertension. PLAN: The patient's renal function has improved. The patient's serum sodium continues to improve. We will decrease the D5W to 75 mL per hour and continue to monitor the chemistries closely. All labs can be repeated in the a.m. The patient now is tolerating some amount of a diet. TID: [id number] RECEIPT: [id number]
[2025-04-29 14:09] LABS: OSMOLALITY URINE 376.0 mOsm/kg (50-1200)
--- NOTE | 2025-04-29 14:44 | PN ---
[facility] PROGRESS NOTE Date Patient Seen: Apr 29, 2025 Time of Visit: 14:43 Supervising Physician: Dr. 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 on US Esophageal varices Renal parenchymal disease per CT, POA Hypothyroidism Hypocalcemia Hyperlipidemia Hypertension Anxiety disorder Depression Restless leg syndrome Suspected OHS Morbid obesity, BMI 47.5 INTERVAL HISTORY: Patient assessed at bedside. AAOX3. Currently on room air. Complains of right flank pain. Pending for right nephrostomy tube to be inserted by IR today. WBC 12.2, Hemoglobin 10.7, platelet count of 44 K. We will follow Hematology recommendations in regards to ITP possible IVIG administration. Sodium 139. Denies any chest pain, SOB, nausea or vomiting. Daughter at bedside. REVIEW OF SYSTEMS: General: No malaise or fever. Neurological: No fainting episodes or seizures. HEENT: No nasal congestion or nasal secretion. Respiratory: No cough, shortness of breath, or wheezing Cardiac: No chest pain or palpitations. Gastrointestinal: No vomiting or diarrhea. Genitourinary: No dysuria hematuria. Skin: No rashes or lesions. Hematological: No bruises or bleeding. Musculoskeletal: No joint pains or arthralgias. Psychiatric: No depression or panic attacks. PHYSICAL EXAM: GENERAL: Patient is awake alert and oriented x3. Cooperative and calm. HEENT: EOMI, Sclera non icteric, moist mucosa NECK: Supple, no JVD, trachea midline LUNGS: Clear breath sounds bilaterally. No wheezes HEART: Regular rate and rhythm. Normal S1 and S2, without murmurs ABD: Abdomen soft, nontender. Bowel sounds present EXT: No clubbing cyanosis or edema NEURO: AAOX3, follows commands Vital Signs (last 8hr) Date Time Temp Pulse Resp B/P (MAP) Pulse Ox O2 Delivery O2 Flow Rate FiO2 04/29/25 11:57 99.1 91 18 127/46 92 Room Air 04/29/25 08:24 98.2 89 18 138/66 90 Room Air 04/29/25 07:34 85 18 N/A Room Air 21 LABS: Hematology Labs: Test 04/29/25 06:07 Range/Units White Blood Count 12.2 H 4.8-10.8 K/uL Red Blood Count 4.31 4.00-5.50 MIL/uL Hemoglobin 10.7 L 12.0-16.0 g/dL Hematocrit 34.4 L 36-48 % Mean Corpuscular Volume 79.8 79-99 fL Mean Corpuscular Hemoglobin 24.8 L 27.0-33.0 pg Mean Corpuscular Hemoglobin Concent 31.1 L 32.0-36.0 g/dL Red Cell Distribution Width 21.6 H 11.0-15.5 % Platelet Count 44 #L 130-400 K/uL Mean Platelet Volume 7.5-10.5 fL Immature Granulocyte % (Auto) 4.8 H 0-1 % Neutrophils (%) (Auto) 88.4 H 40.0-77.0 % Lymphocytes (%) (Auto) 3.8 L 21.0-51.0 % Monocytes (%) (Auto) 2.5 L 3.0-13.0 % Eosinophils (%) (Auto) 0.2 0.0-8.0 % Basophils (%) (Auto) 0.3 0.0-5.0 % Neutrophils # (Auto) 10.8 H 1.8-7.7 K/uL Lymphocytes # (Auto) 0.5 L 1.0-4.8 K/uL Monocytes # (Auto) 0.3 0.1-1.0 K/uL Eosinophils # (Auto) 0.02 0.00-0.70 K/uL Basophils # (Auto) 0.04 0.00-0.20 K/uL Absolute Immature Granulocyte (auto 0.58 0-1 K/uL Nucleated Red Blood Cells 0.2 H 0.0-0.19 % Chemistry Labs: Test 04/29/25 11:16 04/29/25 06:07 04/28/25 02:28 Range/Units Whole Blood Glucose 205 H 70-110 MG/DL Sodium Level 139 136-145 mmol/L Potassium Level 3.6 3.5-5.1 mmol/L Chloride Level 104 101-111 mmol/L Carbon Dioxide Level 29 21-32 mmol/L Blood Urea Nitrogen 22 H 7-18 mg/dL Creatinine 0.8 0.5-1.0 mg/dL Glomerular Filtration Rate Calc 87 >90 mL/min Random Glucose 257 H 70-105 mg/dL Total Calcium 7.8 L 8.5-10.1 mg/dL Total Bilirubin 2.5 H 0.2-1.0 mg/dL Aspartate Amino Transf (AST/SGOT) 189 H 10-37 U/L Alanine Aminotransferase (ALT/SGPT) 111 H 12-78 U/L Alkaline Phosphatase 332 H 50-136 U/L Ammonia 18 11-32 umol/L C-Reactive Protein, Quantitative 52.00 H 0.5-3.0 mg/L Total Protein 7.0 6.0-8.3 g/dL Albumin 1.8 L 3.5-5.0 g/dL Procalcitonin 0.94 H 0.05-0.5 ng/mL Serum Osmolality 316 H 278-305 mOsm/kg Coagulation Labs: Test 04/29/25 06:07 Range/Units Prothrombin Time 15.1 H 9.6-11.6 SEC Prothromb Time International Ratio 1.48 H 0.85-1.15 Activated Partial Thromboplast Time 33.4 26.3-35.5 SEC DIAGNOSTICS / RADIOLOGY RESULTS: EXAMINATION: CT ABDOMEN AND PELVIS WITHOUT IV CONTRAST CLINICAL HISTORY: Patient presents with right hydronephrosis. COMPARISON: CT dated April 22, 2025. CONTRAST: No IV contrast. TECHNIQUE: Axial computed tomography images of the abdomen and pelvis without intravenous contrast; sagittal and coronal reformatted images submitted for interpretation. FINDINGS: LUNG BASES: Bilateral mild pleural effusion with adjacent basal subsegmental atelectasis. LIVER: The liver measures 10.3 cm in craniocaudal span and demonstrates nodular contour, concerning for cirrhosis. GALLBLADDER AND BILE DUCTS: The gallbladder is surgically absent. No biliary ductal dilatation. PANCREAS: There is peripancreatic fat stranding and fluid without any organized pancreatic or peripancreatic collections, concerning for acute edematous interstitial pancreatitis. Multiple portosystemic collateral vascular channels are noted in the peripancreatic region. SPLEEN: The spleen is enlarged, measuring 14.4 cm. ADRENAL GLANDS: Unremarkable. KIDNEYS, URETERS, AND BLADDER: No hydronephrosis or hydroureter. No renal or ureteric calculi. The urinary bladder is empty with Nolasco???s catheter bulb in place. STOMACH AND BOWEL: Patchy fat stranding is seen in the right paracolic gutter. Moderate amount of fecal content in the colon, concerning for constipation. The stomach and remaining bowel loops are unremarkable. No obstruction, enteritis, or colitis. APPENDIX: No evidence of acute appendicitis on CT examination. PERITONEUM: Minimal ascites. LYMPH NODES: No lymphadenopathy is evident. REPRODUCTIVE: The uterus and both ovaries are atrophic, consistent with postmenopausal status. VASCULATURE: Multiple portosystemic collateral vascular channels in the periportal region. No abdominal aortic aneurysm. BONES: Multilevel moderate degenerative changes in the spine. No aggressive-appearing osseous lesion or acute osseous pathology. IMPRESSION: Nodular liver contour and reduced liver span measuring 10.3 cm, concerning for cirrhosis. Peripancreatic fat stranding and fluid without any organized pancreatic or peripancreatic collections, concerning for acute edematous interstitial pancreatitis. Splenomegaly measuring 14.4 cm. Multiple portosystemic collateral vascular channels in the periportal and peripancreatic regions. Bilateral mild pleural effusion with adjacent basal subsegmental atelectasis. Minimal ascites. Patchy fat stranding in the right paracolic gutter. Moderate amount of colonic fecal content, concerning for constipation. Surgically absent gallbladder. Urinary bladder decompressed with Nolasco???s bulb in place. No evidence of hydronephrosis, hydroureter, or urolithiasis. PLAN Repeat blood culture repeated IF repeat blood cultures, recommend RAMAN BIPAP wean as possible Monitor hemodynamics Monitor for fevers Continue vancomycin per ID FC There is moderate rt hydronephrosis on US NEURO: Minimize central acting medications as possible. Maintain fall precautions, adequate lighting during the day PULMONARY: Supplemental 02 as needed. Maintain aspiration precautions at all times CARDIOVASCULAR: Follow hemodynamics. Vital signs per facility protocol GI & NUTRITION: Continue with nutritional support. Continue stool softeners and laxatives as needed. KIDNEYS & ELECTROLYTES: Strict monitoring of intake, output and overall fluid balance. Avoid nephrotoxic medications to the extent possible. Medications to be dosed according to renal function. Monitor electrolytes and replace as needed ENDOCRINE: Maintain blood glucose between 100-180 at all times. Hypoglycemia protocol in place INFECTIOUS DISEASE: Trend temperature, WBC and procalcitonin level Follow cultures, deescalate antibiotics as soon as possible. Panculture if new onset fever ONCOLOGY/HEMATOLOGY/COAGULATION: Monitor for s/s of bleeding Monitor hemoglobin, coagulation studies as needed SKIN: Pressure ulcer prevention per facility protocol Specialty mattress ORTHO/REHAB: Continue PT/OT Prophylaxis: Continue GI and DVT prophylaxis Code Status: Full Resuscitation Disposition: per primary team GABE VAIL NP Apr 29, 2025 14:44
--- NOTE | 2025-04-29 14:47 | PN ---
GASTROENTEROLOGY PROGRESS NOTE Date of Visit: Apr 29, 2025 Time of Visit: 14:46 Events / Notes: [ ] Review of Systems: CONSTITUTIONAL: No malaise or change in sensation of wellbeing. ENMT: No rhinorrhea, otorrhea, sinus pain, ear ache. CARDIOVASCULAR: No angina, palpitations, orthopnea or paroxysmal dyspnea. RESPIRATORY: No SOB. GASTROINTESTINAL: No abdominal pain, nausea, vomiting, diarrhea, hematemesis, melena or change in the patient's habitual bowel movements consistency/number. GENITOURINARY: No dysuria, hematuria or change in bladder continence. MUSCULOSKELETAL: No new muscle pain or decrease in muscular strength. No new joint swelling, redness or tenderness. SKIN: No new rash. Physical Exam: GEN: Awake, alert, oriented in person, time and place, and in no acute distress. HEENT: No sinus tenderness. Tympanic membranes were not examined. No rhinorrhea. Oral pharyngeal mucosa is pink, moist and within normal limits. Neck is supple with no cervical lymphadenopathy, thyromegaly or JVD. CHEST: Inspection, palpation and percussion of the chest were unremarkable. Lung auscultation revealed normal breath sounds bilaterally. CARDIAC: PMI is within normal limits. Heart sounds are regular. Normal S1, S2. No gallop or murmur. ABD: Soft, non-tender and not distended. No peritoneal signs on palpation. No organomegaly. Normal bowel sounds. EXT: No cyanosis or clubbing. No edema. SKIN: Intact. No rashes. JOINTS: No evidence of synovitis or acute arthritis. NEURO: Alert and oriented to name, place and person. Cranial nerve examination is unremarkable. No focal motor deficits. Normal speech. Gait is normal. Strength is normal. Vital Signs (last 8hr) Date Time Temp Pulse Resp B/P (MAP) Pulse Ox O2 Delivery O2 Flow Rate FiO2 04/29/25 11:57 99.1 91 18 127/46 92 Room Air 04/29/25 08:24 98.2 89 18 138/66 90 Room Air 04/29/25 07:34 85 18 N/A Room Air 21 Laboratory: [ ] Laboratory: Test 04/29/25 11:16 04/29/25 06:07 04/28/25 15:25 04/28/25 13:10 Range/Units Whole Blood Glucose 205 H 70-110 MG/DL White Blood Count 12.2 H 4.8-10.8 K/uL Red Blood Count 4.31 4.00-5.50 MIL/uL Hemoglobin 10.7 L 12.0-16.0 g/dL Hematocrit 34.4 L 36-48 % Mean Corpuscular Volume 79.8 79-99 fL Mean Corpuscular Hemoglobin 24.8 L 27.0-33.0 pg Mean Corpuscular Hemoglobin Concent 31.1 L 32.0-36.0 g/dL Red Cell Distribution Width 21.6 H 11.0-15.5 % Platelet Count 44 #L 130-400 K/uL Mean Platelet Volume 7.5-10.5 fL Immature Granulocyte % (Auto) 4.8 H 0-1 % Neutrophils (%) (Auto) 88.4 H 40.0-77.0 % Lymphocytes (%) (Auto) 3.8 L 21.0-51.0 % Monocytes (%) (Auto) 2.5 L 3.0-13.0 % Eosinophils (%) (Auto) 0.2 0.0-8.0 % Basophils (%) (Auto) 0.3 0.0-5.0 % Neutrophils # (Auto) 10.8 H 1.8-7.7 K/uL Lymphocytes # (Auto) 0.5 L 1.0-4.8 K/uL Monocytes # (Auto) 0.3 0.1-1.0 K/uL Eosinophils # (Auto) 0.02 0.00-0.70 K/uL Basophils # (Auto) 0.04 0.00-0.20 K/uL Absolute Immature Granulocyte (auto 0.58 0-1 K/uL Nucleated Red Blood Cells 0.2 H 0.0-0.19 % Prothrombin Time 15.1 H 9.6-11.6 SEC Prothromb Time International Ratio 1.48 H 0.85-1.15 Activated Partial Thromboplast Time 33.4 26.3-35.5 SEC Sodium Level 139 136-145 mmol/L Potassium Level 3.6 3.5-5.1 mmol/L Chloride Level 104 101-111 mmol/L Carbon Dioxide Level 29 21-32 mmol/L Blood Urea Nitrogen 22 H 7-18 mg/dL Creatinine 0.8 0.5-1.0 mg/dL Glomerular Filtration Rate Calc 87 >90 mL/min Random Glucose 257 H 70-105 mg/dL Total Calcium 7.8 L 8.5-10.1 mg/dL Total Bilirubin 2.5 H 0.2-1.0 mg/dL Aspartate Amino Transf (AST/SGOT) 189 H 10-37 U/L Alanine Aminotransferase (ALT/SGPT) 111 H 12-78 U/L Alkaline Phosphatase 332 H 50-136 U/L Ammonia 18 11-32 umol/L C-Reactive Protein, Quantitative 52.00 H 0.5-3.0 mg/L Total Protein 7.0 6.0-8.3 g/dL Albumin 1.8 L 3.5-5.0 g/dL Procalcitonin 0.94 H 0.05-0.5 ng/mL Vancomycin Level Trough 9.6 #L 10.0-20.0 UG/ML Urine Osmolality 376 50-1200 mOsm/kg Urine Random Creatinine 27.84 L 30-135 mg/dL Urine Random Sodium 33 L 40-220 mmol/l Urine Random Potassium 20 L 25-125 mmol/L Urine Random Chloride 57 L 110-250 mmol/L Test 04/28/25 02:28 Range/Units Serum Osmolality 316 H 278-305 mOsm/kg Current Medications Medications (Trade) Dose Ordered Sig/Roberth Route PRN Reason Start Time Stop Time Status Last Admin Dose Admin Acetaminophen (TYLenol 325MG TAB) 650 mg Q4H PRN PO MILD PAIN (1-3) 04/22/25 20:00 05/22/25 19:59 04/24/25 20:44 650 MG Acetaminophen (TYLenol 325MG TAB) 650 mg Q6H PRN PO TEMPERATURE GREATER THAN 101.5 04/22/25 20:00 05/22/25 19:59 04/23/25 10:02 650 MG Atorvastatin Calcium (LIPItor 20MG) 20 mg HS PO 04/24/25 21:00 05/24/25 20:59 04/28/25 20:54 20 MG Ceftriaxone Sodium 1 gm/ Sodium Chloride 50 ml @ 100 mls/hr BID IV 04/22/25 21:00 04/22/25 19:59 DC Ceftriaxone Sodium (ROCEphine 1G INJ) 1 gm BID IVPB 04/22/25 21:00 04/22/25 20:44 DC Ceftriaxone Sodium (ROCEphine 1G INJ) 1 gm BID IVPB 04/23/25 09:00 04/25/25 12:36 DC 04/25/25 09:44 1 GM Dexmedetomidine/ Sodium Chloride (PRECEdex 200MCG/ 50ML-NS) 200 mcg PROTOCOL IV 04/26/25 12:00 04/26/25 14:54 DC Dexmedetomidine/ Sodium Chloride (PRECEdex 400MCG/ 100ML-NS) 400 mcg PROTOCOL PRN IV ANXIETY/AGITATION 04/26/25 19:30 05/26/25 19:29 04/27/25 23:31 400 MCG Dexmedetomidine/ Sodium Chloride (PRECEdex 400MCG/ 100ML-NS) 400 mcg PROTOCOL STAT IV 04/26/25 14:53 04/26/25 14:58 DC 04/26/25 15:18 400 MCG Dextrose 1,000 ml @ 75 mls/hr [id number] IV 04/26/25 12:00 05/26/25 11:59 04/29/25 04:27 150 MLS/HR Dextrose (D50w) 50 ml AD PRN IV HYPOGLYCEMIA PROTOCOL 04/22/25 20:00 05/22/25 19:59 Famotidine (Pepcid 20mg Tab) 20 mg DAILY PO 04/23/25 09:00 04/24/25 09:48 DC 04/23/25 09:33 20 MG Gabapentin (NEURontin 300 MG CAP) 300 mg BID PO 04/24/25 21:00 04/28/25 09:10 DC 04/25/25 21:51 300 MG Glucagon (Glucagon 1mg Kit) 1 mg AD PRN IM HYPOGLYCEMIA PROTOCOL 04/22/25 20:00 05/22/25 19:59 Heparin Sodium (Porcine) (HEParin 5,000 UNIT VIAL) 5,000 unit Q8H SQ 04/25/25 09:00 04/25/25 08:40 DC Hydromorphone HCl (DiLAUDid 0.5MG INJ) 0.5 mg BIDPRN PRN IVP SEVERE PAIN (7-10) 04/25/25 19:00 04/30/25 18:59 04/28/25 21:06 0.5 MG Hydromorphone HCl (DiLAUDid 0.5MG INJ) 0.5 mg Q6H PRN IVP SEVERE PAIN (7-10) 04/23/25 14:00 04/25/25 08:25 DC 04/25/25 04:14 0.5 MG Insulin Glargine (LANtus 100 UNITS/ML 10 ML VIAL) 10 units HS SQ 04/24/25 21:00 04/24/25 16:57 DC Insulin Glargine (LANtus 100 UNITS/ML 10 ML VIAL) 10 units ONCE STAT SQ 04/24/25 10:54 04/24/25 11:00 DC 04/24/25 11:19 10 UNITS Insulin Glargine (LANtus 100 UNITS/ML 10 ML VIAL) 15 units HS SQ 04/24/25 21:00 04/24/25 17:06 DC Insulin Glargine (LANtus 100 UNITS/ML 10 ML VIAL) 30 units ONCE SQ 04/24/25 17:00 04/25/25 06:19 DC 04/24/25 18:16 30 UNITS Insulin Glargine (LANtus 100 UNITS/ML 10 ML VIAL) 40 units DAILY SQ 04/29/25 09:00 05/29/25 08:59 Insulin Glargine (LANtus 100 UNITS/ML 10 ML VIAL) 50 units DAILY SQ 04/26/25 09:00 04/29/25 06:49 DC 04/28/25 08:46 50 UNITS Insulin Human Regular (humuLIN R 100 UNIT/ML 3ML) 5 unit TIDAC SQ 04/24/25 17:00 04/24/25 17:06 DC Insulin Human Regular (humuLIN R 100 UNIT/ML 3ML) 8 unit TIDAC SQ 04/28/25 07:30 05/28/25 07:29 Insulin Human Regular (humuLIN R 100 UNIT/ML 3ML) 10 unit TIDAC SQ 04/24/25 17:00 04/25/25 06:17 DC 04/25/25 06:15 10 UNIT Insulin Human Regular (humuLIN R 100 UNIT/ML 3ML) 15 unit TIDAC SQ 04/26/25 11:30 04/27/25 20:30 DC Insulin Human Regular (humuLIN R 100 UNIT/ML 3ML) 25 unit TIDAC SQ 04/25/25 07:30 04/26/25 07:58 DC 04/25/25 17:39 25 UNIT Insulin Human Regular (humuLIN R 100 UNIT/ML 3ML) INSULIN SLIDING SCAL... ACHS SQ 04/22/25 21:00 04/24/25 16:16 DC 04/24/25 11:18 8 UNIT Insulin Human Regular (humuLIN R 100 UNIT/ML 3ML) INSULIN SLIDING SCAL... ACHS SQ 04/24/25 16:30 04/25/25 14:09 DC 04/25/25 11:57 16 UNIT Insulin Human Regular (humuLIN R 100 UNIT/ML 3ML) INSULIN SLIDING SCAL... ACHS SQ 04/25/25 16:30 05/25/25 16:29 04/27/25 17:06 10 UNIT Insulin Human Regular (humuLIN R 100 UNIT/ML 3ML) INSULIN SLIDING SCAL... Q4H SQ 04/27/25 20:30 04/28/25 09:11 DC 04/28/25 06:00 4 UNIT Lactated Ringer's 1,000 ml @ 100 mls/hr Q10H IV 04/22/25 20:00 04/23/25 10:09 DC 04/23/25 06:00 100 MLS/HR Lactulose (Constulose 20gm/ 30ml Udcup) 30 gm TID PO 04/25/25 11:00 05/25/25 10:59 04/28/25 21:06 30 GM Levothyroxine Sodium (SYNTHroid 125MCG TAB) 125 mcg DAILY@0630 PO 04/25/25 06:30 05/25/25 06:29 Magnesium Sulfate 50 ml @ 0 mls/hr PROTOCOL PRN IV OTHER [SEE ORDER COMMENTS] 04/22/25 20:00 05/22/25 19:59 Methylprednisolone Sodium Succinate (Solu-medROL 125MG) 125 mg Q6H IVP 04/23/25 08:00 04/28/25 09:10 DC 04/25/25 09:45 125 MG Metoprolol Succinate (TopROL XL) 50 mg AM PO 04/25/25 09:00 05/25/25 08:59 04/25/25 09:45 50 MG Ondansetron HCl (zoFRAN 4MG INJ) 4 mg Q6H PRN IV NAUSEA/VOMITING 04/22/25 20:00 05/22/25 19:59 04/22/25 20:10 4 MG Pantoprazole Sodium (PROTonix 40MG INJ) 40 mg DAILY IVP 04/24/25 10:00 05/24/25 09:59 04/29/25 08:19 40 MG Potassium Chloride 100 ml @ 100 mls/hr AD PRN IV POTASSIUM PROTOCOL 04/22/25 20:00 05/22/25 19:59 Potassium Chloride (K-Dur/Klor-Con 20meq) 20 meq AD PRN PO POTASSIUM PROTOCOL 04/22/25 20:00 05/22/25 19:59 Potassium Chloride (KCl 10% Elixir 20meq/15ml) 20 meq AD PRN PO POTASSIUM PROTOCOL 04/22/25 20:00 05/22/25 19:59 Pramipexole Dihydrochloride (miraPEX 0.25MG TAB) 0.5 mg HS PO 04/24/25 21:00 05/24/25 20:59 04/28/25 20:54 0.5 MG Pregabalin ([id number]) 75 mg BID PO 04/24/25 21:00 04/24/25 14:49 DC Sodium Chloride 500 ml @ 0 mls/hr Q0M IV 04/25/25 11:00 05/25/25 10:59 Sodium Zirconium Cyclosilicate (Lokelma 10gm Powder) 10 gm TID PO 04/23/25 21:00 04/23/25 14:11 DC Tramadol HCl (UltRAM) 50 mg Q6H PRN PO MODERATE PAIN (4-6) 04/24/25 22:30 04/29/25 22:29 04/28/25 13:55 50 MG Trimethoprim/ Sulfamethoxazole (BactRIM DS) 1 tab BID PO 04/25/25 21:00 04/26/25 14:50 DC 04/25/25 21:51 1 TAB Vancomycin HCl 250 ml @ 125 mls/hr Q12H IV 04/24/25 23:00 04/25/25 12:36 DC 04/25/25 11:43 125 MLS/HR Vancomycin HCl 250 ml @ 125 mls/hr Q12H IV 04/26/25 15:30 04/28/25 03:13 DC 04/27/25 15:22 125 MLS/HR Vancomycin HCl 250 ml @ 125 mls/hr Q12H IV 04/28/25 15:30 04/28/25 18:53 DC Vancomycin HCl 250 ml @ 125 mls/hr Q12H IV 04/28/25 20:00 05/08/25 19:59 04/29/25 08:18 125 MLS/HR Vancomycin HCl (Vancomycin Protocol) 1 each AD IV 04/24/25 10:30 04/25/25 12:36 DC Vancomycin HCl (Vancomycin Protocol) 1 each AD IV 04/26/25 15:00 05/10/25 14:59 Venlafaxine HCl (EffEXOR XR 37.5mg CAP) 37.5 mg DAILY PO 04/24/25 16:00 05/24/25 15:59 04/25/25 09:45 37.5 MG Venlafaxine HCl (EffEXOR XR 37.5mg CAP) 37.5 mg DAILY PO 04/25/25 09:00 04/24/25 14:50 DC Diagnostics / Radiology: [COPY/PASTE HERE IF NO REPORTS PLEASE DELETE SECTION] Assessment: Decompensated cirrhosis HTN Esophageal varies Plan: Patient with known cirrhosis however lost to follow-up. Hold off on EGD given no overt GI bleeding and stable hemoglobin We will monitor closely BEHZAD [employer]H [employer] Apr 29, 2025 14:47
[2025-04-29] MEDS ORDERED: LIDOCAINE HCL 1% MDV 50ML VIAL ONE (16:03)
[2025-04-29] MEDS ORDERED: HEParin-NS 1,000 UNIT/500 ML 500 ML IV ONE (16:03)
--- NOTE | 2025-04-29 16:03 | PN ---
INFECTIOUS DISEASE PROGRESS NOTE Date of Service: Apr 29, 2025 SUBJECTIVE: This is a 54 year old female patient who was admitted for chief complaint of lower back pain. Urinalysis obtained on admission was positive and grew methicillin-resistant Staphylococcus aureus. An MRI of the lumbar spine was obtained yesterday which came back positive for Infectious spondylodiscitis centered at the L and L3 intervertebral disc for which neurosurgeon is being consulted. A renal ultrasound showed right hydronephrosis and patient is scheduled to undergo a right nephrostomy tube today along with a platelet transfusion due to low platelet count of 44. WBC trended up to 12.2 and temperature is 99.1. We will continue on vancomycin. We will continue to follow patient's care. PHYSICAL EXAM EYES: Anicteric. Pupils equal and reactive. HENT: No oral thrush seen, moist Oral mucosa NECK: Supple, no JVD or thyromegaly. LUNGS: Good air entry. No rales, no rhonchi. Diminished breath sounds. Oxygen support as needed. CARDIOVASCULAR: S1, S2 regular. No murmur heard. ABDOMEN: Soft, non tender, bowel sounds present, no organomegaly. SKIN: No rashes, no swelling. LYMPHATICS: No peripheral lymphadenopathy MUSCULOSKELETAL: No joint swelling, erythema or tenderness. EXTREMITIES: No cyanosis or clubbing BACK: No deformity, no pressure ulcer. GENITOURINARY: No dysuria or hematuria, Nolasco catheter. Vital Sign (Last 12 Hours) 04/29/25 04/29/25 04/29/25 04/29/25 04:57 07:34 08:24 11:57 Temp 98.1 98.2 99.1 Pulse 81 85 89 91 Resp 18 18 18 18 B/P (MAP) 151/57 138/66 127/46 Pulse Ox 92 90 92 O2 Delivery Room Air N/A Room Air Room Air Room Air FiO2 21 Intake & Output (last 24hrs) 04/28/25 04/28/25 04/29/25 15:00 23:00 07:00 Intake Total 375.0 ml 220 ml Output Total 300 ml 1800 ml Balance 75.0 ml 220 ml -1800 ml LABS: Laboratory: Test 04/29/25 11:16 04/29/25 06:07 04/28/25 15:25 04/28/25 13:10 Range/Units Whole Blood Glucose 205 H 70-110 MG/DL White Blood Count 12.2 H 4.8-10.8 K/uL Red Blood Count 4.31 4.00-5.50 MIL/uL Hemoglobin 10.7 L 12.0-16.0 g/dL Hematocrit 34.4 L 36-48 % Mean Corpuscular Volume 79.8 79-99 fL Mean Corpuscular Hemoglobin 24.8 L 27.0-33.0 pg Mean Corpuscular Hemoglobin Concent 31.1 L 32.0-36.0 g/dL Red Cell Distribution Width 21.6 H 11.0-15.5 % Platelet Count 44 #L 130-400 K/uL Mean Platelet Volume 7.5-10.5 fL Immature Granulocyte % (Auto) 4.8 H 0-1 % Neutrophils (%) (Auto) 88.4 H 40.0-77.0 % Lymphocytes (%) (Auto) 3.8 L 21.0-51.0 % Monocytes (%) (Auto) 2.5 L 3.0-13.0 % Eosinophils (%) (Auto) 0.2 0.0-8.0 % Basophils (%) (Auto) 0.3 0.0-5.0 % Neutrophils # (Auto) 10.8 H 1.8-7.7 K/uL Lymphocytes # (Auto) 0.5 L 1.0-4.8 K/uL Monocytes # (Auto) 0.3 0.1-1.0 K/uL Eosinophils # (Auto) 0.02 0.00-0.70 K/uL Basophils # (Auto) 0.04 0.00-0.20 K/uL Absolute Immature Granulocyte (auto 0.58 0-1 K/uL Nucleated Red Blood Cells 0.2 H 0.0-0.19 % Prothrombin Time 15.1 H 9.6-11.6 SEC Prothromb Time International Ratio 1.48 H 0.85-1.15 Activated Partial Thromboplast Time 33.4 26.3-35.5 SEC Sodium Level 139 136-145 mmol/L Potassium Level 3.6 3.5-5.1 mmol/L Chloride Level 104 101-111 mmol/L Carbon Dioxide Level 29 21-32 mmol/L Blood Urea Nitrogen 22 H 7-18 mg/dL Creatinine 0.8 0.5-1.0 mg/dL Glomerular Filtration Rate Calc 87 >90 mL/min Random Glucose 257 H 70-105 mg/dL Total Calcium 7.8 L 8.5-10.1 mg/dL Total Bilirubin 2.5 H 0.2-1.0 mg/dL Aspartate Amino Transf (AST/SGOT) 189 H 10-37 U/L Alanine Aminotransferase (ALT/SGPT) 111 H 12-78 U/L Alkaline Phosphatase 332 H 50-136 U/L Ammonia 18 11-32 umol/L C-Reactive Protein, Quantitative 52.00 H 0.5-3.0 mg/L Total Protein 7.0 6.0-8.3 g/dL Albumin 1.8 L 3.5-5.0 g/dL Procalcitonin 0.94 H 0.05-0.5 ng/mL Vancomycin Level Trough 9.6 #L 10.0-20.0 UG/ML Urine Osmolality 376 50-1200 mOsm/kg Urine Random Creatinine 27.84 L 30-135 mg/dL Urine Random Sodium 33 L 40-220 mmol/l Urine Random Potassium 20 L 25-125 mmol/L Urine Random Chloride 57 L 110-250 mmol/L Test 04/28/25 02:28 Range/Units Serum Osmolality 316 H 278-305 mOsm/kg PATIENT: LUCÍA CATALAN MR#: [id number] : 1970 SEX: F AGE: 54 LOCATION: [facility] ORDER 1051 STATUS: ADM IN REPORT#: [id number] SERVICE 1049 REASON: CHRONIC BACK PAIN ORDERING PHYSICIAN: EDNA SOARES MD PROCEDURE: L SPN WO - MR SPINAL CANAL, LUMBAR WO CON ADDENDUM REPORT ADDENDUM: Results were shared by telephone at 21:25 pm on 04/28/25 and acknowledged by Patient's Nurse Mr.Daniel Ramos. /[place] EXAMINATION: MR LUMBAR SPINE WITHOUT INTRAVENOUS CONTRAST CLINICAL HISTORY: Patient presents with chronic back pain. COMPARISON: Compared to prior CT lumbar spine dated April 23, 2025. TECHNIQUE: Magnetic resonance images of the lumbar spine obtained in multiple planes without intravenous contrast. CONTRAST: None. FINDINGS: VERTEBRAE: The first non???rib-bearing vertebra is designated as the L1 vertebral body. Patchy marrow edema is present within the anterior aspects of the L2 and L3 vertebral bodies. Multilevel small marginal osteophytes are present. No acute fracture or focal osseous lesion. Modic type II changes along adjacent endplates of the L4-L5 intervertebral disc level. Schmorl's node in the lower endplate of L2 vertebra. ALIGNMENT: Bony alignment is anatomic. SPINAL CORD AND CAUDA EQUINA: No abnormal cord signal or mass. Prevertebral soft tissue edema is seen at the L2 and L3 levels. Intramuscular edema is present in the right psoas muscle. FINDINGS BY LEVEL: T12???L1: Diffuse disc bulge with central disc protrusion indenting the anterior thecal sac and bilateral traversing and L1 exiting nerve roots. Bilateral mild to moderate neural foraminal narrowing. Midsagittal AP canal diameter: 13 mm. L1???L2: No central canal or foraminal stenosis. Midsagittal AP canal diameter: 16 mm. L2???L3: Diffuse disc bulge indenting the anterior thecal sac and bilateral traversing and L2 exiting nerve roots. Bilateral moderate neural foraminal narrowing. Intradiscal collection within the L2???L3 disc space. Features concerning for infectious spondylodiscitis centered at the L2???L3 disc and adjacent L2 and L3 vertebral bodies. Midsagittal AP canal diameter: 11 mm. L3???L4: Diffuse disc bulge with ligamentum flavum hypertrophy and facet arthropathy. Indentation of the anterior thecal sac and bilateral traversing and L3 exiting nerve roots. Bilateral moderate to severe neural foraminal narrowing. Midsagittal AP canal diameter: 9.7 mm. L4???L5: Diffuse disc bulge with ligamentum flavum hypertrophy and facet arthropathy. Indentation of the anterior thecal sac and bilateral traversing and L4 exiting nerve roots. Bilateral severe neural foraminal narrowing. Midsagittal AP canal diameter: 9.8 mm. L5???S1: Diffuse disc bulge indenting the anterior thecal sac and bilateral traversing and L5 exiting nerve roots. Bilateral mild to moderate neural foraminal narrowing. Midsagittal AP canal diameter: 12 mm. PARASPINAL SOFT TISSUES: Unremarkable aside from right psoas intramuscular edema. 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 Recommend contrast MRI lumbar spine. Multilevel diffuse disc bulges from T12???L1 through L5???S1 with varying degrees of thecal sac indentation and bilateral traversing and exiting nerve root compression. Severe bilateral neural foraminal narrowing at L4???L5, moderate to severe at L3???L4, and moderate at L2???L3 and L5???S1. Ligamentum flavum hypertrophy and facet arthropathy at L3???L4 and L4???L5 levels. Multilevel disc desiccation and marginal osteophytes consistent with spondylotic changes. Spinal canal stenosis with midsagittal AP diameters of 11 mm or less at L2???L3, L3???L4, and L4???L5. /[place] DICTATED BY: BROOKLYN LOPEZ Jr., MD DATE: 04/28/252130 ASSESSMENT: Methicillin-resistant Staphylococcus aureus bacteremia. Urinary tract infection with methicillin-resistant Staphylococcus aureus. 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 Right Hydronephrosis. Non-ketotic hyperglycemia. Urinary retention requiring Nolasco catheter placement. Morbid obesity. Back pain. Thrombocytopenia. Diabetes mellitus. PLAN: Continue vancomycin per pharmacy protocol. Continue pain management. Continue antidiabetic. Continue GI prophylaxis. Monitor electrolytes. Pending right nephrostomy tube placement along with a platelet transfusion. Neurosurgeon has been consulted. Obtain a uric acid level. This case was reviewed and discussed with my supervising physician and the above assessment and plan was formulated and agreed upon. ATTESTATION BY PHYSICIAN I have seen and examined the patient. I reviewed the documentation, medical decision making, and treatment plan as noted by the mid-level provider above. I agree with the findings and plan of care. EDNA SOARES MD, [facility] Apr 29, 2025 16:03
[2025-04-29] MEDS ORDERED: IODIXANOL 320 MG/ML 100 ML VIAL ONE (16:04)
[2025-04-29] MEDS ORDERED: MIDAZOLAM HCL 1 MG/ML 2ML VIAL ONE ×2 (16:28→16:52)
[2025-04-29 16:45] LABS: HEPATITIS A IGM ANTIBODY Non-Reactive (Nonreactive); HEPATITIS B CORE IGM ANTIBODY Non-Reactive (Negative)
--- NOTE | 2025-04-29 17:33 | OP ---
DATE OF PROCEDURE: 04/29/2025 PROCEDURE: Percutaneous placement under fluoroscopy guidance of an 8-Ivorian nephrostomy catheter. ANESTHESIA: IV conscious sedation with 100 mcg of fentanyl and 4 mg of Versed, which was titrated. 80 mL of contrast was injected prior to the procedure. DESCRIPTION OF PROCEDURE: After the patient was placed in prone position, the right posterior mid flank was prepped and draped in usual sterile technique. 1% Xylocaine was used for local anesthetic. A Chiba needle was introduced under fluoroscopy guidance. The Chiba needle was placed in the right kidney renal pelvis. This was exchanged over an angiographic wire. Through the angiographic wire, an 8-Ivorian dilator was introduced and exchanged over angiographic wire, an 8-Ivorian nephrostomy catheter was placed into the right renal pelvis. The catheter appears to be in satisfactory position. Under fluoroscopy, a nephrostomogram was performed. The study demonstrates the catheter to be in satisfactory position. Percutaneous fluoroscopy-guided placement of an 8-Ivorian nephrostomy catheter with placement of a drainage bag for external drainage. The patient tolerated the procedure well. TID: [id number] RECEIPT: [id number]
--- NOTE | 2025-04-29 18:20 | NUR ---
TRANSFER FOLLOW UP MET WITH PT AND DAUGHTER, PT WAS POST PROCEDURE ASLEEP . PER DAUGHTER DR ADAMSON NEUROSURGEON ALREADY SO PT AND IgG WILL BE PROVIDED HERE SOON DR GALLAGHER SIGN THE FORM SO IT CAN BE SENT TO PHARMACY . AND PER DAUGHTER SHE WILL FOLLOW UP TOMORROW WITH MEDICAID. CHARGE NURSE TO INFORM AND WILL CONTACT MD TO SEE IF TRANSFER CAN BE CXMukul TORRE RN
[2025-04-29] MEDS: LIDOCAINE 4% ADH..PATCH TP ONE (19:18)
--- NOTE | 2025-04-29 20:41 | DS ---
HISTORY OF PRESENT ILLNESS: A 54-year-old female patient who has been admitted to the Emergency Room with generalized pain, mostly lower back pain and problems ambulating. She refers that has been with problems also urinating. Denies any trauma. An MRI of the lumbar spine has been obtained. PHYSICAL EXAMINATION: On physical examination, she was asleep, uncomfortable in bed. No acute respiratory distress. Chest is symmetrical. She is able to move upper extremity without problem. In the lower, she is able to wiggle her toes and move the legs somewhat, but refers marked pain. She has a Nolasco catheter in place and at this time she is awaiting a nephrostomy tube. IMAGING: The MRI of the lumbar spine was evaluated. There is no gross canal stenosis. There is some spondylolisthesis, but none critical. There is possible diskitis, osteomyelitis at the vertebral body of L2-L3, but there is no gross epidural geoffrey bone noted. There is some psoas inflammation all pointing to be possible diskitis, osteomyelitis. ASSESSMENT AND PLAN: At this time, she can be treated empirically as per the results of the nephrostomy tube drainage as well as any other culture from blood that can be obtained. I do not see any again epidural phlegmon that needs to be addressed with surgery at this time. The patient was ____ with family members as well as nurse staff in her room. TID: [id number] RECEIPT: [id number]
--- NOTE | 2025-04-29 22:34 | PN ---
endocrinology progress note Date of Service: Apr 29, 2025 subjective: glucose are improving now and off iv steroids now hba1c 9.2, home regimen: lantus 30 units daily and humalog 10 units tid before meals. patient glucose are stable. off iv steroid MTP. PAST MEDICAL HISTORY: [undiagnosed obstructive sleep apnea, diabetes type 2, hypertension, hyperlipidemia, hypothyroidism, restless leg syndrome, anxiety disorder,depression, lupus and severe morbid obesity ] PAST SURGICAL HISTORY: [ Cholecystectomy, tubal ligation] PAST SOCIAL HISTORY: [ Patient lives with . Patient denies alcohol tobacco and recreational drug use] FAMILY HISTORY: [ Hypertension, diabetes, cardiovascular disease and Alzheimer's disease ] Coded Allergies: No Known Allergies (Unverified Allergy, Unknown, 08/26/14) ASSESSMENT: hyperglycemia due to uncontrolled dm-2 and off iv steroids now. glucose are elevated as he missed insulin doses. hba1c 9.2, home regimen: lantus 30 units daily and humalog 10 units tid before meals. Intractable low back pain POA Acute thrombocytopenia POA Acute urinary tract infection POA Chronic anemia POA Hyponatremia POA Acute kidney injury on renal insufficiency POA Hypocalcemia POA Cirrhotic liver with splenomegaly consistent with portal hypertension per CT POA Renal parenchymal disease per CT POA Hypothyroidism POA Hyperlipidemia POA Hypertension POA Anxiety disorder POA Depression POA Restless leg syndrome POA Suspected obstructive sleep apnea untreated POA Morbid obesity POA PLAN: continue lantus 40 units daily hyperglycemia. continue regular insulin 8 units qac before meals continue high dose ssi monitor glucose qx6 hourly Vitals/Labs Vital Signs Date Time Temp Pulse Resp B/P (MAP) Pulse Ox O2 Delivery O2 Flow Rate FiO2 04/29/25 18:45 87 18 N/A Room Air 21 04/29/25 11:57 99.1 127/46 92 04/29/25 08:00 0 Laboratory Tests 04/29/25 06:07 Medications Current Medications Sodium Chloride 1,000 ml @ 0 mls/hr ONCE ONCE IV Last administered on 04/22/25at 17:27; Start 04/22/25 at 17:00; Stop 04/22/25 at 17:01; Status DC Ceftriaxone Sodium 1 gm ONCE ONCE IVPB Last administered on 04/22/25at 19:43; Start 04/22/25 at 19:00; Stop 04/22/25 at 19:01; Status DC Acetaminophen 650 mg Q6H PRN PO Last administered on 04/23/25at 10:02; Start 04/22/25 at 20:00; Stop 05/22/25 at 19:59 Acetaminophen 650 mg Q4H PRN PO Last administered on 04/24/25at 20:44; Start 04/22/25 at 20:00; Stop 05/22/25 at 19:59 Ondansetron HCl 4 mg Q6H PRN IV Last administered on 04/22/25at 20:10; Start 04/22/25 at 20:00; Stop 05/22/25 at 19:59 Famotidine 20 mg DAILY PO Last administered on 04/23/25at 09:33; Start 04/23/25 at 09:00; Stop 04/24/25 at 09:48; Status DC Ceftriaxone Sodium 1 gm/ Sodium Chloride 50 ml @ 100 mls/hr BID IV; Start 04/22/25 at 21:00; Stop 04/22/25 at 19:59; Status DC Lactated Ringer's 1,000 ml @ 100 mls/hr Q10H IV Last administered on 04/23/25at 06:00; Start 04/22/25 at 20:00; Stop 04/23/25 at 10:09; Status DC Insulin Human Regular INSULIN SLIDING SCAL... ACHS SQ Last administered on 04/24/25at 11:18; Start 04/22/25 at 21:00; Stop 04/24/25 at 16:16; Status DC Dextrose 50 ml AD PRN IV; Start 04/22/25 at 20:00; Stop 05/22/25 at 19:59 Glucagon 1 mg AD PRN IM; Start 04/22/25 at 20:00; Stop 05/22/25 at 19:59 Magnesium Sulfate 50 ml @ 0 mls/hr PROTOCOL PRN IV; Start 04/22/25 at 20:00; Stop 05/22/25 at 19:59 Potassium Chloride 100 ml @ 100 mls/hr AD PRN IV; Start 04/22/25 at 20:00; Stop 05/22/25 at 19:59 Potassium Chloride 20 meq AD PRN PO; Start 04/22/25 at 20:00; Stop 05/22/25 at 19:59 Potassium Chloride 20 meq AD PRN PO; Start 04/22/25 at 20:00; Stop 05/22/25 at 19:59 Ceftriaxone Sodium 1 gm BID IVPB; Start 04/22/25 at 21:00; Stop 04/22/25 at 20:44; Status DC Morphine Sulfate 4 mg ONCE ONCE IVP Last administered on 04/22/25at 20:11; Start 04/22/25 at 20:30; Stop 04/22/25 at 20:31; Status DC Lidocaine 1 each ONCE ONCE TP Last administered on 04/22/25at 21:14; Start 04/22/25 at 21:00; Stop 04/22/25 at 21:01; Status DC Ceftriaxone Sodium 1 gm BID IVPB Last administered on 04/25/25at 09:44; Start 04/23/25 at 09:00; Stop 04/25/25 at 12:36; Status DC Methylprednisolone Sodium Succinate 125 mg Q6H IVP Last administered on 04/25/25at 09:45; Start 04/23/25 at 08:00; Stop 04/28/25 at 09:10; Status DC Albuterol Sulfate 1.25 ONCE ONCE IH Last administered on 04/23/25at 09:40; Start 04/23/25 at 09:30; Stop 04/23/25 at 09:31; Status DC Calcium Gluconate 1 gm ONCE ONCE IV Last administered on 04/23/25at 10:55; Start 04/23/25 at 10:30; Stop 04/23/25 at 10:31; Status DC Sodium Chloride 50 ml @ 0 mls/hr ONCE ONCE IV Last administered on 04/23/25at 11:00; Start 04/23/25 at 11:00; Stop 04/23/25 at 11:01; Status DC Sodium Zirconium Cyclosilicate 10 gm ONCE ONCE PO Last administered on 04/23/25at 14:14; Start 04/23/25 at 14:00; Stop 04/23/25 at 16:08; Status DC Hydromorphone HCl 0.5 mg Q6H PRN IVP Last administered on 04/25/25at 04:14; Start 04/23/25 at 14:00; Stop 04/25/25 at 08:25; Status DC Sodium Zirconium Cyclosilicate 10 gm TID PO; Start 04/23/25 at 21:00; Stop 04/23/25 at 14:11; Status DC Pantoprazole Sodium 40 mg DAILY IVP Last administered on 04/29/25at 08:19; Start 04/24/25 at 10:00; Stop 05/24/25 at 09:59 Pregabalin 75 mg BID PO; Start 04/24/25 at 21:00; Stop 04/24/25 at 14:49; Status DC Vancomycin HCl 1 each AD IV; Start 04/24/25 at 10:30; Stop 04/25/25 at 12:36; Status DC Vancomycin HCl 500 ml @ 250 mls/hr ONCE ONCE IV Last administered on 04/24/25at 12:46; Start 04/24/25 at 11:00; Stop 04/24/25 at 12:59; Status DC Vancomycin HCl 250 ml @ 125 mls/hr Q12H IV Last administered on 04/25/25at 11:43; Start 04/24/25 at 23:00; Stop 04/25/25 at 12:36; Status DC Insulin Glargine 10 units HS SQ; Start 04/24/25 at 21:00; Stop 04/24/25 at 16:57; Status DC Insulin Glargine 10 units ONCE STAT SQ Last administered on 04/24/25at 11:19; Start 04/24/25 at 10:54; Stop 04/24/25 at 11:00; Status DC Atorvastatin Calcium 20 mg HS PO Last administered on 04/29/25at 21:34; Start 04/24/25 at 21:00; Stop 05/24/25 at 20:59 Gabapentin 300 mg BID PO Last administered on 04/25/25at 21:51; Start 04/24/25 at 21:00; Stop 04/28/25 at 09:10; Status DC Levothyroxine Sodium 125 mcg DAILY@0630 PO; Start 04/25/25 at 06:30; Stop 05/25/25 at 06:29 Metoprolol Succinate 50 mg AM PO Last administered on 04/25/25at 09:45; Start 04/25/25 at 09:00; Stop 05/25/25 at 08:59 Venlafaxine HCl 37.5 mg DAILY PO; Start 04/25/25 at 09:00; Stop 04/24/25 at 14:50; Status DC Pramipexole Dihydrochloride 0.5 mg HS PO Last administered on 04/29/25at 21:34; Start 04/24/25 at 21:00; Stop 05/24/25 at 20:59 Venlafaxine HCl 37.5 mg DAILY PO Last administered on 04/25/25at 09:45; Start 04/24/25 at 16:00; Stop 05/24/25 at 15:59 Insulin Human Regular INSULIN SLIDING SCAL... ACHS SQ Last administered on 04/25/25at 11:57; Start 04/24/25 at 16:30; Stop 04/25/25 at 14:09; Status DC Insulin Glargine 15 units HS SQ; Start 04/24/25 at 21:00; Stop 04/24/25 at 17:06; Status DC Insulin Human Regular 5 unit TIDAC SQ; Start 04/24/25 at 17:00; Stop 04/24/25 at 17:06; Status DC Insulin Glargine 30 units ONCE SQ Last administered on 04/24/25at 18:16; Start 04/24/25 at 17:00; Stop 04/25/25 at 06:19; Status DC Insulin Human Regular 10 unit TIDAC SQ Last administered on 04/25/25at 06:15; Start 04/24/25 at 17:00; Stop 04/25/25 at 06:17; Status DC Tramadol HCl 50 mg Q6H PRN PO Last administered on 04/28/25at 13:55; Start 04/24/25 at 22:30; Stop 04/29/25 at 22:29; Status DC Insulin Human Regular 25 unit TIDAC SQ Last administered on 04/25/25at 17:39; Start 04/25/25 at 07:30; Stop 04/26/25 at 07:58; Status DC Insulin Glargine 70 units ONCE ONCE SQ Last administered on 04/25/25at 06:27; Start 04/25/25 at 06:30; Stop 04/25/25 at 06:31; Status DC Hydromorphone HCl 0.5 mg BIDPRN PRN IVP Last administered on 04/28/25at 21:06; Start 04/25/25 at 19:00; Stop 04/30/25 at 18:59 Heparin Sodium (Porcine) 5,000 unit Q8H SQ; Start 04/25/25 at 09:00; Stop 04/25/25 at 08:40; Status DC Lactulose 30 gm TID PO Last administered on 04/29/25at 21:35; Start 04/25/25 at 11:00; Stop 05/25/25 at 10:59 Sodium Chloride 500 ml @ 0 mls/hr Q0M IV; Start 04/25/25 at 11:00; Stop 05/25/25 at 10:59 Trimethoprim/ Sulfamethoxazole 1 tab BID PO Last administered on 04/25/25at 21:51; Start 04/25/25 at 21:00; Stop 04/26/25 at 14:50; Status DC Insulin Human Regular INSULIN SLIDING SCAL... ACHS SQ Last administered on 04/29/25at 21:35; Start 04/25/25 at 16:30; Stop 05/25/25 at 16:29 Diazepam 10 mg ONCE ONCE IM; Start 04/25/25 at 15:00; Stop 04/25/25 at 15:01; Status DC Lactulose 200 gm ONCE ONCE MS Last administered on 04/25/25at 17:30; Start 04/25/25 at 16:30; Stop 04/25/25 at 16:31; Status DC Lorazepam 0.5 mg ONCE ONCE PO Last administered on 04/25/25at 19:07; Start 04/25/25 at 19:00; Stop 04/25/25 at 19:01; Status DC Haloperidol Lactate 1 mg ONCE ONCE IM Last administered on 04/26/25at 05:17; Start 04/26/25 at 05:00; Stop 04/26/25 at 05:02; Status DC Insulin Human Regular 15 unit TIDAC SQ; Start 04/26/25 at 11:30; Stop 04/27/25 at 20:30; Status DC Insulin Glargine 50 units DAILY SQ Last administered on 04/28/25at 08:46; Start 04/26/25 at 09:00; Stop 04/29/25 at 06:49; Status DC Dextrose 1,000 ml @ 75 mls/hr [id number] IV Last administered on 04/29/25at 04:27; Start 04/26/25 at 12:00; Stop 05/26/25 at 11:59 Dexmedetomidine/ Sodium Chloride 200 mcg PROTOCOL IV; Start 04/26/25 at 12:00; Stop 04/26/25 at 14:54; Status DC Dexmedetomidine/ Sodium Chloride 400 mcg STK-MED ONCE IV; Start 04/26/25 at 14:49; Stop 04/26/25 at 14:50; Status DC Vancomycin HCl 1 each AD IV; Start 04/26/25 at 15:00; Stop 05/10/25 at 14:59 Dexmedetomidine/ Sodium Chloride 400 mcg PROTOCOL STAT IV Last administered on 04/26/25at 15:18; Start 04/26/25 at 14:53; Stop 04/26/25 at 14:58; Status DC Vancomycin HCl 250 ml @ 125 mls/hr Q12H IV Last administered on 04/27/25at 15:22; Start 04/26/25 at 15:30; Stop 04/28/25 at 03:13; Status DC Dexmedetomidine/ Sodium Chloride 400 mcg PROTOCOL PRN IV Last administered on 04/27/25at 23:31; Start 04/26/25 at 19:30; Stop 05/26/25 at 19:29 Dexmedetomidine/ Sodium Chloride 400 mcg STK-MED ONCE IV Last administered on 04/26/25at 19:14; Start 04/26/25 at 19:10; Stop 04/26/25 at 19:11; Status DC Insulin Human Regular INSULIN SLIDING SCAL... Q4H SQ Last administered on 04/28/25at 06:00; Start 04/27/25 at 20:30; Stop 04/28/25 at 09:11; Status DC Vancomycin HCl 250 ml @ 125 mls/hr Q12H IV; Start 04/28/25 at 15:30; Stop 04/28/25 at 18:53; Status DC Insulin Human Regular 8 unit TIDAC SQ; Start 04/28/25 at 07:30; Stop 05/28/25 at 07:29 Vancomycin HCl 250 ml @ 125 mls/hr Q12H IV Last administered on 04/29/25at 19:18; Start 04/28/25 at 20:00; Stop 05/08/25 at 19:59 Insulin Glargine 40 units DAILY SQ; Start 04/29/25 at 09:00; Stop 05/29/25 at 08:59 Lidocaine HCl 50 ml STK-MED ONCE .ROUTE; Start 04/29/25 at 16:03; Stop 04/29/25 at 16:06; Status DC Heparin Sodium/ Sodium Chloride 500 ml @ As Directed STK-MED ONCE IV; Start 04/29/25 at 16:03; Stop 04/29/25 at 16:06; Status DC Iodixanol 100 ml STK-MED ONCE .ROUTE; Start 04/29/25 at 16:04; Stop 04/29/25 at 16:06; Status DC Fentanyl Citrate 100 mcg STK-MED ONCE .ROUTE; Start 04/29/25 at 16:27; Stop 04/29/25 at 16:28; Status DC Midazolam HCl 2 mg STK-MED ONCE .ROUTE; Start 04/29/25 at 16:28; Stop 04/29/25 at 16:28; Status DC Midazolam HCl 2 mg STK-MED ONCE .ROUTE; Start 04/29/25 at 16:52; Stop 04/29/25 at 16:52; Status DC Lidocaine 1 each ONCE ONCE TP Last administered on 04/29/25at 19:18; Start 04/29/25 at 18:30; Stop 04/29/25 at 18:33; Status DC PARAG VANG MD Apr 29, 2025 22:34
[2025-04-30] VITALS (12 sets, daily range): BP systolic 122–149; BP diastolic 53–80; PULSE 77–91; RESP 18–24; TEMP 97.5–98.6; O2SAT 93–96
[2025-04-30 06:18] LABS: IMMATURE GRANULOCYTE ABSOLUTE 0.23 K/uL (0-1); NUCLEATED RED BLOOD CELLS 0.0 % (0.0-0.19); PLATELET COUNT (AUTO) 41 K/uL (130-400); RED BLOOD CELL COUNT(AUTO) 3.82 MIL/uL (4.00-5.50); RED CELL DISTRIBUTION WIDTH 21.5 % (11.0-15.5); WHITE BLOOD COUNT (AUTO) 10.5 K/uL (4.8-10.8)
[2025-04-30 06:32] LABS: ASPARTATE AMINOTRANSFERASE 112.0 U/L (10-37); CREATININE 0.8 mg/dL (0.5-1.0); GLOMERULAR FILTR. RATE CALC 87.0 mL/min (>90); GLUCOSE,RANDOM 243.0 mg/dL (70-105); SODIUM SERUM 140.0 mmol/L (136-145); TOTAL PROTEIN, SERUM 6.7 g/dL (6.0-8.3); UREA NITROGEN, BLOOD 19.0 mg/dL (7-18)
[2025-04-30 07:53] LABS: ERYTHROCYTE SEDIMENTATION RATE 60 MM/HR (0-30)
--- NOTE | 2025-04-30 08:51 | HP ---
LOCATION: [facility]. HISTORY OF PRESENT ILLNESS: The patient was admitted with MRSA sepsis and UTI as well. Had thrombocytopenia, consumptive type. She is not bleeding. PHYSICAL EXAMINATION: GENERAL: Shows pleasant woman. VITAL SIGNS: 142/60, 60, 20. CHEST: Clear. ABDOMEN: Soft. EXTREMITIES: No edema. NEUROLOGIC: Intact. IMPRESSION: * Consumptive thrombocytopenia, multifactorial, underlying cirrhosis plus ITP. * Sepsis. * Lupus, off treatment for a long time. * Decompensated cirrhosis with varices. PLAN: I talked to the nurse about IgG yesterday. Apparently, they need a special pharmacy dispensation here to give IgG. I told him I am happy to sign the papers. I think he would definitely benefit from the IgG daily for 3 days and taper off the steroids. TID: [id number] RECEIPT:
--- NOTE | 2025-04-30 09:24 | PN ---
[facility] PROGRESS NOTE Date of Service: Apr 30, 2025 Time of Service: 09:22 SUBJECTIVE: This is a 54-year-old female with past medical history of undiagnosed obstructive sleep apnea, diabetes type 2, hypertension, hyperlipidemia, hypothyroidism, restless leg syndrome, anxiety disorder,depression, lupus and severe morbid obesity who presents to the ED for complaints of severe low back p ain which started 2 weeks ago and getting worse for the past 2 days and patient reports she is taking prednisone 30mg po daily for her Lupus she said.Patient also reports she was recently seen in this ED for similar complaints and was diagnosed with acute lumbosacral myofascial strain. and patient was given pain meds and discharged home and came again today due to pain intensity is so severe and intolerable.Patient also reports that her whole body hurts more on muscle pain she said.Patient also reports she has muscle pain on her chest and it reproducible on light palpation.Patient also states she vomited x 1 today .Patient denies any injury,trauma and fall.Patient also reports that she is on her monthly period today and it is her first day.patient also states that is her director of people and her last seen him last year and that she has insurance problem reason she was unable to keep her follow up. Urinalysis consistent with urinary tract infection. CT abdomen and pelvis result revealed no acute intra-abdominal or pelvic pathology cirrhotic liver morphology with splenomegaly, consistent with portal hypertension. Bilateral renal cortical thickening may reflect renal parenchymal disease. While in the ER patient received Rocephin 1 g IV, 1 L NS bolus. We will admit patient for further medical management. 04/23/25 Patient was seen and examined at bedside. She was complaining of chest pain early in the morning but her EKG and troponin were normal. Patient says she got liver cirrhosis from taking Tylenol with codeine in the past for a long time. Remarkable labs are Na 129, K 6.4. Cl 98, BUN 44. Cr 1.2 with no anion gap. New EKG shows sinus rhythm with no tall T-waves or shortened QT interval. We will give her a dose of calcium gluconate and lokelma and recheck her labs. we will hold her iv fluids for now. Her urine anion gap is 36.0 mEq/l. Repeat potassium was 4.2 and 4.6. We will order CT lumbar spine and request nephro and cardio consults due to hyponatremia, RTA and cirrhosis with portal hypertension respectively. We will order lupus, complement , anemia panel due to her abnormal labs and h/o SLE. Hematology recommended solu medrol 125 q6. she might need hydrochloroquine upon discharge for SLE 04/24/25 Patient was seen and examined at bedside. She is complaining of widespread generalized body pain with tender points and generalized weakness, her CPK is going up, we will repeat it and start her on pregabalin. Her labs are improving. She had an EGD done last year that showed grade III varices but lost to follow up with TDS. No GI intervention as her Hb is stable. Will start her on vancomycin. Her home meds have been reconciled. She takes venlaflaxine and pramipexole for depression and restless leg syndrome respectively. Her elevated urine anion gap could be due to BALTAZAR or NSAID induced kidney injury but her creatinine is improving. Pending abdominal ultrasound and CT lumbar spine res ults. 04/25/25 Patient was seen and examined. She was observed sitting in a chair but was unable to answer questions appropriately and appeared confused. Ammonia level was elevated at 59; lactulose has been initiated at 30 mL TID. She is currently receiving vancomycin for MRSA identified in the urine. Right upper quadrant ultrasound demonstrated chronic hepatic changes with a hypoechoic lesion in the right lobe of the liver, possibly representing a complex cyst. CT of the lumbar spine revealed moderate lumbar spondylosis and diffuse osteopenia. Her platelet count is 37 and showing slow improvement. Dr. Urias, covering for Dr. Lorenzo, recommended holding solu-medrol for now. If platelet count declines tomorrow, steroids may need to be restarted. Ammonia and additional labs will be rechecked in the morning. 04/26/25 Patient was seen at bedside. Will request a transfer to the ICU due to worsening agitation and hypercapnic respiratory failure requiring BIPAP support.Will order Precedex drip for sedation to improve tolerance of non-invasive ventilation. Imaging studies including CT head and MRI spine have been ordered to evaluate for underlying neurologic causes. Patient remains hemodynamically stable; pulmonary consult is in place. She is growing gram positive cocci in clusters in her blood, will request ID input on antibiotics as she was on vancomycin previously and was started on bactrim for MRSA in urine. Her platelet count is 36 and solu-medrol is on hold. Ammonia improved from 59 to 12 04/27/25 Patient was evaluated at bedside. She was transferred to the ICU yesterday due to agitation and hypercapnia, requiring a Precedex drip as she was removing her nasal cannula. BiPAP was initiated to support ventilation, and she is now resting comfortably. CT brain was unremarkable with no acute findings. She has a free water deficit of approximately 1.4 liters, for which D5W will be administered. CRP has decreased from 83.5 to 56.4. However, platelets have dropped from 36 to 28, and hematology is closely monitoring her. The patient remains NPO. We wanted to start NG tube feeding but patient has h/o esophageal varices. We will await gastroenterologys recommendations, including possible EGD if indicated. 04/28/25 Patient was evaluated at bedside, she is bed bound not very responsive to questions. She is currently off BiPAP and precedex drip. Her agitation has improved and she is resting comfortably in bed. She has MRSA bacteremia and we will repeat blood cultures. She is currently on vancomycin. She has moderate right hydronephrosis which is increasing, we will request urology consult. Her sodium is trending upwards from 147 to 152 and she has a free water deficit of 2.4 L , we will increase D5 rate from 75 to 150mls/hr. CRP improving from 56.4 to 42.7. Platelets dropped from 28 to 21, we will follow Dr. Lorenzo's recommendations and his plan is give her IgG. She is not bleeding actively. 04/29/25 Patient was evaluated at bedside. She is alert, awake and oriented. She was minimally verbal yesterday but is now more interactive, expressing pain and discussing her medical history. She reports diffuse joint pain and is unable to lift her arms or legs due to significant discomfort. She has generalized joint tenderness and weak associate director career services strength bilaterally. urologist Dr. Colin recommended nephrostomy tube on her right due to hydronephrosis. Her platelets improved to 44 without any intervention. She will be getting platelets for the procedure. She has infectious spondylodiscitis which could be the source of her bacteremia. We have requested transfer to [facility] but bathhouse keeper said Dr. Sanchez [place] [facility] [place] will try to consult him. Her white count went up to 12.2, LFTs mildly going up. We will hold off on gabapentin for now. 04/30/25 Patient was evaluated at bedside. She is alert, awake and oriented. Her vitals are stable. She is interactive, expressing pain and discussing her medical history. She reports diffuse joint pain and is able to lift her arms or legs slightly due to pain and discomfort. Her active and passive range of motions are limited. She has generalized joint tenderness and weak associate director career services strength bilaterally. She also passed stool more than 5 times yesterday could be due to lactulose which has been stopped from today. A Percutaneous fluroscopy-guided placement of an 8-F nephrostomy catheter was performed,the patient tolerated the procedure well. Neurosurgeon Dr. Sanchez saw the patient and came up with possible diagnosis of discitis and osteomyelitis at L2-L3 along with psoas inflammation. She has spondylolisthesis which is non- critical and can be managed medically for now. According to Dr. Lorenzo she will benefit from IgG for 3 days on the background of possible ITP. Her current platelet is 41 and Hgb 9.6. Also, Endocrinology team adjusted Insulin regimen. We have requested cardiology consult for suspected endocarditis and will request RAMAN although she has thrombocytopenia and h/o esophageal varices. REVIEW OF SYSTEMS CONSTITUTIONAL: No fever, chills, or night sweats. NEUROLOGICAL: Denies headache, sensory deficit, vertigo/spinning sensation, or tremors. CARDIOVASCULAR: Denies any exertional angina, dyspnea on exertion, orthopnea, paroxysmal nocturnal dyspnea, palpitations. PULMONARY: Denies any shortness of breath, cough, phlegm/sputum, hemoptysis, pleuritic chest pain. GASTROINTESTINAL: She passed loose stool more than 5 times. Denies nausea, vomiting, abdominal pain. GENITOURINARY: Denies frequency, urgency, nocturia, hematuria or incontinence. PHYSICAL EXAM GENERAL APPEARANCE: The patient is alert, awake and oriented and bedbound NEUROLOGICAL: No sensory deficits. Neuro exam limited by restricted mobility due to pain, but sensation to light touch, pinprick, and two-point discrimination intact; palmar associate director career services strength preserved bilaterally. CHEST: Normal chest expansion. LUNGS: Absence of any rales, rhonchi or any wheezing. CARDIOVASCULAR: Regular. S1 and S2 normal. No appreciable rubs, murmurs or gallops. ABDOMEN: Soft nontender, and nondistended. There is no rebound, voluntary guarding, or rigidity. GENITOURINARY: S/P Nephrostomy tube on the right side Vital Signs (last 8hr) Date Time Temp Pulse Resp B/P (MAP) Pulse Ox O2 Delivery O2 Flow Rate FiO2 04/30/25 08:00 98.1 81 21 122/53 94 Room Air 21 04/30/25 07:27 84 18 N/A Room Air 04/30/25 04:46 98.6 84 19 142/68 96 Room Air LABS: Laboratory: Test 04/30/25 05:57 04/30/25 05:39 04/29/25 06:07 04/28/25 13:10 Range/Units White Blood Count 10.5 4.8-10.8 K/uL Red Blood Count 3.82 L 4.00-5.50 MIL/uL Hemoglobin 9.6 L 12.0-16.0 g/dL Hematocrit 30.3 L 36-48 % Mean Corpuscular Volume 79.3 79-99 fL Mean Corpuscular Hemoglobin 25.1 L 27.0-33.0 pg Mean Corpuscular Hemoglobin Concent 31.7 L 32.0-36.0 g/dL Red Cell Distribution Width 21.5 H 11.0-15.5 % Platelet Count 41 L 130-400 K/uL Mean Platelet Volume 7.5-10.5 fL Immature Granulocyte % (Auto) 2.2 H 0-1 % Neutrophils (%) (Auto) 89.0 H 40.0-77.0 % Lymphocytes (%) (Auto) 4.5 L 21.0-51.0 % Monocytes (%) (Auto) 3.5 3.0-13.0 % Eosinophils (%) (Auto) 0.6 0.0-8.0 % Basophils (%) (Auto) 0.2 0.0-5.0 % Neutrophils # (Auto) 9.3 H 1.8-7.7 K/uL Lymphocytes # (Auto) 0.5 L 1.0-4.8 K/uL Monocytes # (Auto) 0.4 0.1-1.0 K/uL Eosinophils # (Auto) 0.06 0.00-0.70 K/uL Basophils # (Auto) 0.02 0.00-0.20 K/uL Absolute Immature Granulocyte (auto 0.23 0-1 K/uL Nucleated Red Blood Cells 0.0 0.0-0.19 % Erythrocyte Sedimentation Rate 60 H 0-30 MM/HR Sodium Level 140 136-145 mmol/L Potassium Level 3.6 3.5-5.1 mmol/L Chloride Level 104 101-111 mmol/L Carbon Dioxide Level 28 21-32 mmol/L Blood Urea Nitrogen 19 H 7-18 mg/dL Creatinine 0.8 0.5-1.0 mg/dL Glomerular Filtration Rate Calc 87 >90 mL/min Random Glucose 243 H 70-105 mg/dL Uric Acid 3.5 2.6-7.2 mg/dL Total Calcium 7.8 L 8.5-10.1 mg/dL Total Bilirubin 2.5 H 0.2-1.0 mg/dL Direct Bilirubin 1.2 H 0.0-0.3 mg/dL Aspartate Amino Transf (AST/SGOT) 112 H 10-37 U/L Alanine Aminotransferase (ALT/SGPT) 87 #H 12-78 U/L Alkaline Phosphatase 286 H 50-136 U/L Ammonia 27 11-32 umol/L B-Type Natriuretic Peptide 22 0-100 pg/mL Total Protein 6.7 6.0-8.3 g/dL Albumin 1.7 L 3.5-5.0 g/dL Vancomycin Level Trough 15.0 # 10.0-20.0 UG/ML Whole Blood Glucose 246 H 70-110 MG/DL Prothrombin Time 15.1 H 9.6-11.6 SEC Prothromb Time International Ratio 1.48 H 0.85-1.15 Activated Partial Thromboplast Time 33.4 26.3-35.5 SEC C-Reactive Protein, Quantitative 52.00 H 0.5-3.0 mg/L Procalcitonin 0.94 H 0.05-0.5 ng/mL Hepatitis A IgM Antibody Non-Reactive Nonreactive Hepatitis B Surface Antigen. Non-Reactive Nonreactive Hepatitis B Core IgM Antibody Non-Reactive Negative Hepatitis C Antibody Non-Reactive Nonreactive Urine Osmolality 376 50-1200 mOsm/kg Urine Random Creatinine 27.84 L 30-135 mg/dL Urine Random Sodium 33 L 40-220 mmol/l Urine Random Potassium 20 L 25-125 mmol/L Urine Random Chloride 57 L 110-250 mmol/L Urine Creatinine 30.5 Not Estab. mg/dL Urine Protein/Creatinine Ratio 626 H 0-200 mg/g creat Urine Total Protein 19.1 Not Estab. mg/dL Current Medications Medications (Trade) Dose Ordered Sig/Roberth Route PRN Reason Start Time Stop Time Status Last Admin Dose Admin Acetaminophen (TYLenol 325MG TAB) 650 mg Q4H PRN PO MILD PAIN (1-3) 04/22/25 20:00 05/22/25 19:59 04/30/25 06:17 650 MG Acetaminophen (TYLenol 325MG TAB) 650 mg Q6H PRN PO TEMPERATURE GREATER THAN 101.5 04/22/25 20:00 05/22/25 19:59 04/23/25 10:02 650 MG Atorvastatin Calcium (LIPItor 20MG) 20 mg HS PO 04/24/25 21:00 05/24/25 20:59 04/29/25 21:34 20 MG Ceftriaxone Sodium 1 gm/ Sodium Chloride 50 ml @ 100 mls/hr BID IV 04/22/25 21:00 04/22/25 19:59 DC Ceftriaxone Sodium (ROCEphine 1G INJ) 1 gm BID IVPB 04/22/25 21:00 04/22/25 20:44 DC Ceftriaxone Sodium (ROCEphine 1G INJ) 1 gm BID IVPB 04/23/25 09:00 04/25/25 12:36 DC 04/25/25 09:44 1 GM Dexmedetomidine/ Sodium Chloride (PRECEdex 200MCG/ 50ML-NS) 200 mcg PROTOCOL IV 04/26/25 12:00 04/26/25 14:54 DC Dexmedetomidine/ Sodium Chloride (PRECEdex 400MCG/ 100ML-NS) 400 mcg PROTOCOL PRN IV ANXIETY/AGITATION 04/26/25 19:30 05/26/25 19:29 04/27/25 23:31 400 MCG Dexmedetomidine/ Sodium Chloride (PRECEdex 400MCG/ 100ML-NS) 400 mcg PROTOCOL STAT IV 04/26/25 14:53 04/26/25 14:58 DC 04/26/25 15:18 400 MCG Dextrose 1,000 ml @ 75 mls/hr [id number] IV 04/26/25 12:00 05/26/25 11:59 04/29/25 04:27 150 MLS/HR Dextrose (D50w) 50 ml AD PRN IV HYPOGLYCEMIA PROTOCOL 04/22/25 20:00 05/22/25 19:59 Famotidine (Pepcid 20mg Tab) 20 mg DAILY PO 04/23/25 09:00 04/24/25 09:48 DC 04/23/25 09:33 20 MG Gabapentin (NEURontin 300 MG CAP) 300 mg BID PO 04/24/25 21:00 04/28/25 09:10 DC 04/25/25 21:51 300 MG Glucagon (Glucagon 1mg Kit) 1 mg AD PRN IM HYPOGLYCEMIA PROTOCOL 04/22/25 20:00 05/22/25 19:59 Heparin Sodium (Porcine) (HEParin 5,000 UNIT VIAL) 5,000 unit Q8H SQ 04/25/25 09:00 04/25/25 08:40 DC Hydromorphone HCl (DiLAUDid 0.5MG INJ) 0.5 mg BIDPRN PRN IVP SEVERE PAIN (7-10) 04/25/25 19:00 04/30/25 18:59 04/29/25 23:31 0.5 MG Hydromorphone HCl (DiLAUDid 0.5MG INJ) 0.5 mg Q6H PRN IVP SEVERE PAIN (7-10) 04/23/25 14:00 04/25/25 08:25 DC 04/25/25 04:14 0.5 MG Insulin Glargine (LANtus 100 UNITS/ML 10 ML VIAL) 10 units HS SQ 04/24/25 21:00 04/24/25 16:57 DC Insulin Glargine (LANtus 100 UNITS/ML 10 ML VIAL) 10 units ONCE STAT SQ 04/24/25 10:54 04/24/25 11:00 DC 04/24/25 11:19 10 UNITS Insulin Glargine (LANtus 100 UNITS/ML 10 ML VIAL) 15 units HS SQ 04/24/25 21:00 04/24/25 17:06 DC Insulin Glargine (LANtus 100 UNITS/ML 10 ML VIAL) 30 units ONCE SQ 04/24/25 17:00 04/25/25 06:19 DC 04/24/25 18:16 30 UNITS Insulin Glargine (LANtus 100 UNITS/ML 10 ML VIAL) 40 units DAILY SQ 04/29/25 09:00 04/30/25 07:31 DC Insulin Glargine (LANtus 100 UNITS/ML 10 ML VIAL) 50 units DAILY SQ 04/26/25 09:00 04/29/25 06:49 DC 04/28/25 08:46 50 UNITS Insulin Glargine (LANtus 100 UNITS/ML 10 ML VIAL) 50 units DAILY SQ 04/30/25 09:00 05/30/25 08:59 Insulin Human Regular (humuLIN R 100 UNIT/ML 3ML) 5 unit TIDAC SQ 04/24/25 17:00 04/24/25 17:06 DC Insulin Human Regular (humuLIN R 100 UNIT/ML 3ML) 8 unit TIDAC SQ 04/28/25 07:30 04/30/25 07:31 DC 04/30/25 06:15 8 UNIT Insulin Human Regular (humuLIN R 100 UNIT/ML 3ML) 10 unit TIDAC SQ 04/24/25 17:00 04/25/25 06:17 DC 04/25/25 06:15 10 UNIT Insulin Human Regular (humuLIN R 100 UNIT/ML 3ML) 12 unit TIDAC SQ 04/30/25 07:30 05/30/25 07:29 Insulin Human Regular (humuLIN R 100 UNIT/ML 3ML) 15 unit TIDAC SQ 04/26/25 11:30 04/27/25 20:30 DC Insulin Human Regular (humuLIN R 100 UNIT/ML 3ML) 25 unit TIDAC SQ 04/25/25 07:30 04/26/25 07:58 DC 04/25/25 17:39 25 UNIT Insulin Human Regular (humuLIN R 100 UNIT/ML 3ML) INSULIN SLIDING SCAL... ACHS SQ 04/22/25 21:00 04/24/25 16:16 DC 04/24/25 11:18 8 UNIT Insulin Human Regular (humuLIN R 100 UNIT/ML 3ML) INSULIN SLIDING SCAL... ACHS SQ 04/24/25 16:30 04/25/25 14:09 DC 04/25/25 11:57 16 UNIT Insulin Human Regular (humuLIN R 100 UNIT/ML 3ML) INSULIN SLIDING SCAL... ACHS SQ 04/25/25 16:30 05/25/25 16:29 04/30/25 06:14 10 UNIT Insulin Human Regular (humuLIN R 100 UNIT/ML 3ML) INSULIN SLIDING SCAL... Q4H SQ 04/27/25 20:30 04/28/25 09:11 DC 04/28/25 06:00 4 UNIT Lactated Ringer's 1,000 ml @ 100 mls/hr Q10H IV 04/22/25 20:00 04/23/25 10:09 DC 04/23/25 06:00 100 MLS/HR Lactulose (Constulose 20gm/ 30ml Udcup) 30 gm TID PO 04/25/25 11:00 05/25/25 10:59 04/29/25 21:35 30 GM Levothyroxine Sodium (SYNTHroid 125MCG TAB) 125 mcg DAILY@0630 PO 04/25/25 06:30 05/25/25 06:29 04/30/25 06:11 125 MCG Magnesium Sulfate 50 ml @ 0 mls/hr PROTOCOL PRN IV OTHER [SEE ORDER COMMENTS] 04/22/25 20:00 05/22/25 19:59 Methylprednisolone Sodium Succinate (Solu-medROL 125MG) 125 mg Q6H IVP 04/23/25 08:00 04/28/25 09:10 DC 04/25/25 09:45 125 MG Metoprolol Succinate (TopROL XL) 50 mg AM PO 04/25/25 09:00 05/25/25 08:59 04/25/25 09:45 50 MG Ondansetron HCl (zoFRAN 4MG INJ) 4 mg Q6H PRN IV NAUSEA/VOMITING 04/22/25 20:00 05/22/25 19:59 04/22/25 20:10 4 MG Pantoprazole Sodium (PROTonix 40MG INJ) 40 mg DAILY IVP 04/24/25 10:00 05/24/25 09:59 04/29/25 08:19 40 MG Potassium Chloride 100 ml @ 100 mls/hr AD PRN IV POTASSIUM PROTOCOL 04/22/25 20:00 05/22/25 19:59 Potassium Chloride (K-Dur/Klor-Con 20meq) 20 meq AD PRN PO POTASSIUM PROTOCOL 04/22/25 20:00 05/22/25 19:59 Potassium Chloride (KCl 10% Elixir 20meq/15ml) 20 meq AD PRN PO POTASSIUM PROTOCOL 04/22/25 20:00 05/22/25 19:59 Pramipexole Dihydrochloride (miraPEX 0.25MG TAB) 0.5 mg HS PO 04/24/25 21:00 05/24/25 20:59 04/29/25 21:34 0.5 MG Pregabalin ([id number]) 75 mg BID PO 04/24/25 21:00 04/24/25 14:49 DC Sodium Chloride 500 ml @ 0 mls/hr Q0M IV 04/25/25 11:00 05/25/25 10:59 Sodium Zirconium Cyclosilicate (Lokelma 10gm Powder) 10 gm TID PO 04/23/25 21:00 04/23/25 14:11 DC Tramadol HCl (UltRAM) 50 mg Q6H PRN PO MODERATE PAIN (4-6) 04/24/25 22:30 04/29/25 22:29 DC 04/28/25 13:55 50 MG Trimethoprim/ Sulfamethoxazole (BactRIM DS) 1 tab BID PO 04/25/25 21:00 04/26/25 14:50 DC 04/25/25 21:51 1 TAB Vancomycin HCl 250 ml @ 125 mls/hr Q12H IV 04/24/25 23:00 04/25/25 12:36 DC 04/25/25 11:43 125 MLS/HR Vancomycin HCl 250 ml @ 125 mls/hr Q12H IV 04/26/25 15:30 04/28/25 03:13 DC 04/27/25 15:22 125 MLS/HR Vancomycin HCl 250 ml @ 125 mls/hr Q12H IV 04/28/25 15:30 04/28/25 18:53 DC Vancomycin HCl 250 ml @ 125 mls/hr Q12H IV 04/28/25 20:00 05/08/25 19:59 04/29/25 19:18 125 MLS/HR Vancomycin HCl (Vancomycin Protocol) 1 each AD IV 04/24/25 10:30 04/25/25 12:36 DC Vancomycin HCl (Vancomycin Protocol) 1 each AD IV 04/26/25 15:00 05/10/25 14:59 Venlafaxine HCl (EffEXOR XR 37.5mg CAP) 37.5 mg DAILY PO 04/24/25 16:00 05/24/25 15:59 04/25/25 09:45 37.5 MG Venlafaxine HCl (EffEXOR XR 37.5mg CAP) 37.5 mg DAILY PO 04/25/25 09:00 04/24/25 14:50 DC DIAGNOSTICS / RADIOLOGY: [ ] ASSESSMENT: Osteomyelitis of L2-L3 Status post nephrostomy tube, Day 1 Persistent bacteremia, 2nd set of blood cultures growing, gram positive cocci Infectious spondylodiscitis L2-L3 MRSA bacteremia Sepsis, unable to determine POA Acute hypoxic hypercapnic respiratory failure, not POA, resolved AMS due to suspected steroid induced psychosis or hepatic encephalopathy, not POA Gram positive bacteremia Hyperammonemia due to cirrhosis, resolved Intractable low back pain due to spinal stenosis POA 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 Acute urinary tract infection due to MRSA POA Hypervolemic hyponatremia POA Chronic anemia POA Hyponatremia POA Acute kidney injury on renal insufficiency POA Hyperglycemia due to uncontrolled diabetes POA Hypocalcemia POA Cirrhotic liver with splenomegaly consistent with portal hypertension per CT POA Esophageal varices Renal parenchymal disease per CT POA Hypothyroidism POA Hypocalcemia POA Hyperlipidemia POA Hypertension POA Anxiety disorder POA Depression POA Restless leg syndrome POA Suspected obstructive sleep apnea untreated POA Morbid obesity POA PLAN: MRSA bacteremia IV Vancomycin with trough monitoring. Repeat blood cultures - 01/24 positive Contact precautions Acute hypoxic hypercapnic respiratory failure, resolved Patient is off BIPAP and dexmedetomidine drip Altered Mental Status due to Hepatic Encephalopathy or steroids induced psychosis, resolved Monitor ammonia levels, mental status, and signs of worsening encephalopathy. Discontinue or hold steroids Monitor neuro status and reassess mental status regularly with steroid adjustments. Intractable lower back pain Per Dr. Sanchez, possible diagnosis of discitis and osteomyelitis at L2-L3 along with psoas inflammation. Continue multimodal pain management: acetaminophen, topical agents, consider gabapentin if neuropathic. Currently on dilaudid and [place] 5 neuro checks q4 Thrombocytopenia due to ITP Per Dr. Lorenzo, patient to recieve IvIG for 3 days for suspected ITP Monitor CBC daily; trend platelets. Rule out DIC, splenic sequestration (cirrhosis-related), and medication-induced causes. Avoid NSAIDs Acute UTI Monitor for signs of urosepsis Encourage hydration and bladder care Hyponatremia, resolved Monitor serum Na closely; consider fluid restriction if dilutional. Cirrhosis with portal hypertension Monitor for decompensation: encephalopathy, ascites, variceal bleeding. Consider beta sergio for variceal prophylaxis. Monitor LFTs, INR, and ammonia Her MELD- Na score is 24 points, 14-15% estimated 90 day mortality Hyperglycemia (Uncontrolled Diabetes) lantus 30 units daily and humalog 10 units tid before meals. patient glucose are stable. off iv steroid MTP monitor blood glucose QID. Educate on diet and insulin compliance; monitor for DKA if concern. Correct electrolytes accordingly. Chronic anemia H/o esophageal varcies due to cirrhosis with portal hypertension Per GI, hold off on EGD given no overt GI bleeding and stable hemoglobin Monitor trends, H&H daily Avoid transfusion unless symptomatic or Hgb <7. ATTESTATION BY PHYSICIAN I have seen and examined the patient. I reviewed the documentation, medical decision making, and treatment plan as noted by the resident provider above. I agree with the findings and plan of care. Croy Pimentel MD [facility] MD Apr 30, 2025 09:24 KALI ALBERT MD Apr 30, 2025 19:51
--- NOTE | 2025-04-30 09:58 | PN ---
SUBJECTIVE: A 54-year-old female initially presented to the hospital with acute renal failure. The patient with failure to thrive and electrolyte abnormalities. The patient has been transferred out of the ICU. Renal function is much improved. Serum sodium also has improved and she is being seen at a followup visit for all of the above. REVIEW OF SYSTEMS: GENERAL: She is feeling improved. HEENT: No change in vision. No change in hearing. CARDIOVASCULAR: There is no current chest pain or palpitations. PULMONARY: She denies shortness of breath. GASTROINTESTINAL: She has been started on a diet. MUSCULOSKELETAL: She complains of weakness. PHYSICAL EXAMINATION: VITAL SIGNS: Blood pressure is 122/53, pulse 80, afebrile. GENERAL: Chronically ill female, much older than appearing. HEENT: Head is atraumatic. Pupils are equal, roving to light. Oropharynx is without exudate. Nares are clear. NECK: There is no JVP. There is no thyromegaly, no mass. CARDIOVASCULAR: Regular. There is no S3, S4, gallop. LUNGS: Coarse with equal thoracic movement. ABDOMEN: Soft, nondistended, and nontender. EXTREMITIES: There is no edema. NEUROLOGICAL: She is much more awake and alert. LABORATORY DATA: Sodium 140, potassium 3.6, BUN 19, creatinine 0.8, hemoglobin 11, hematocrit 35. IMPRESSION: * Acute renal failure. * Failure to thrive. * History of lupus. * Electrolyte abnormalities. PLAN: The patient's renal function is much improved. The patient's serum sodium is also much improved. D5W will be discontinued. She is encouraged with her oral intake. The patient is being seen by physical therapy. The patient is also being seen by case management for final disposition. We will continue to follow closely. The patient and family at the bedside, multiple questions were all answered. TID: [id number] RECEIPT: [id number]
--- NOTE | 2025-04-30 11:27 | PN ---
[facility] PROGRESS NOTE Date of Service: Apr 30, 2025 Time of Service: 11:18 SUBJECTIVE: This is a 54-year-old female with past medical history of undiagnosed obstructive sleep apnea, diabetes type 2, hypertension, hyperlipidemia, hypothyroidism, restless leg syndrome, anxiety disorder,depression, lupus and severe morbid obesity who presents to the ED for complaints of severe low back p ain which started 2 weeks ago and getting worse for the past 2 days and patient reports she is taking prednisone 30mg po daily for her Lupus she said.Patient also reports she was recently seen in this ED for similar complaints and was diagnosed with acute lumbosacral myofascial strain. 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 Urinalysis consistent with urinary tract infection. CT abdomen and pelvis result revealed no acute intra-abdominal or pelvic pathology cirrhotic liver morphology with splenomegaly, consistent with portal hypertension. Bilateral renal cortical thickening may reflect renal parenchymal disease. While in the ER patient received Rocephin 1 g IV, 1 L NS bolus. We will admit patient for further medical management. 04/23/25 Patient was seen and examined at bedside. She was complaining of chest pain early in the morning but her EKG and troponin were normal. Patient says she got liver cirrhosis from taking Tylenol with codeine in the past for a long time. Remarkable labs are Na 129, K 6.4. Cl 98, BUN 44. Cr 1.2 with no anion gap. New EKG shows sinus rhythm with no tall T-waves or shortened QT interval. We will give her a dose of calcium gluconate and lokelma and recheck her labs. we will hold her iv fluids for now. Her urine anion gap is 36.0 mEq/l. Repeat potassium was 4.2 and 4.6. We will order CT lumbar spine and request nephro and cardio consults due to hyponatremia, RTA and cirrhosis with portal hypertension respectively. We will order lupus, complement , anemia panel due to her abnormal labs and h/o SLE. Hematology recommended solu medrol 125 q6. she might need hydrochloroquine upon discharge for SLE 04/24/25 Patient was seen and examined at bedside. She is complaining of widespread generalized body pain with tender points and generalized weakness, her CPK is going up, we will repeat it and start her on pregabalin. Her labs are improving. She had an EGD done last year that showed grade III varices but lost to follow up with TDS. No GI intervention as her Hb is stable. Will start her on vancomycin. Her home meds have been reconciled. She takes venlaflaxine and pramipexole for depression and restless leg syndrome respectively. Her elevated urine anion gap could be due to BALTAZAR or NSAID induced kidney injury but her creatinine is improving. Pending abdominal ultrasound and CT lumbar spine res ults. 04/25/25 Patient was seen and examined. She was observed sitting in a chair but was unable to answer questions appropriately and appeared confused. Ammonia level was elevated at 59; lactulose has been initiated at 30 mL TID. She is currently receiving vancomycin for MRSA identified in the urine. Right upper quadrant ultrasound demonstrated chronic hepatic changes with a hypoechoic lesion in the right lobe of the liver, possibly representing a complex cyst. CT of the lumbar spine revealed moderate lumbar spondylosis and diffuse osteopenia. Her platelet count is 37 and showing slow improvement. Dr. Urias, covering for Dr. Lorenzo, recommended holding solu-medrol for now. If platelet count declines tomorrow, steroids may need to be restarted. Ammonia and additional labs will be rechecked in the morning. 04/26/25 Patient was seen at bedside. Will request a transfer to the ICU due to worsening agitation and hypercapnic respiratory failure requiring BIPAP support.Will order Precedex drip for sedation to improve tolerance of non-invasive ventilation. Imaging studies including CT head and MRI spine have been ordered to evaluate for underlying neurologic causes. Patient remains hemodynamically stable; pulmonary consult is in place. She is growing gram positive cocci in clusters in her blood, will request ID input on antibiotics as she was on vancomycin previously and was started on bactrim for MRSA in urine. Her platelet count is 36 and solu-medrol is on hold. Ammonia improved from 59 to 12 04/27/25 Patient was evaluated at bedside. She was transferred to the ICU yesterday due to agitation and hypercapnia, requiring a Precedex drip as she was removing her nasal cannula. BiPAP was initiated to support ventilation, and she is now resting comfortably. CT brain was unremarkable with no acute findings. She has a free water deficit of approximately 1.4 liters, for which D5W will be administered. CRP has decreased from 83.5 to 56.4. However, platelets have dropped from 36 to 28, and hematology is closely monitoring her. The patient remains NPO. We wanted to start NG tube feeding but patient has h/o esophageal varices. We will await gastroenterologys recommendations, including possible EGD if indicated. 04/28/25 Patient was evaluated at bedside, she is bed bound not very responsive to questions. She is currently off BiPAP and precedex drip. Her agitation has improved and she is resting comfortably in bed. She has MRSA bacteremia and we will repeat blood cultures. She is currently on vancomycin. She has moderate right hydronephrosis which is increasing, we will request urology consult. Her sodium is trending upwards from 147 to 152 and she has a free water deficit of 2.4 L , we will increase D5 rate from 75 to 150mls/hr. CRP improving from 56.4 to 42.7. Platelets dropped from 28 to 21, we will follow Dr. Lorenzo's recommendations and his plan is give her IgG. She is not bleeding actively. 04/29/25 Patient was evaluated at bedside. She is alert, awake and oriented. She was minimally verbal yesterday but is now more interactive, expressing pain and discussing her medical history. She reports diffuse joint pain and is unable to lift her arms or legs due to significant discomfort. She has generalized joint tenderness and weak outside plant cable engineer strength bilaterally. urologist Dr. Colin recommended nephrostomy tube on her right due to hydronephrosis. Her platelets improved to 44 without any intervention. She will be getting platelets for the procedure. She has infectious spondylodiscitis which could be the source of her bacteremia. We have requested transfer to [facility] but sales warehouse driver said Dr. Sanchez has privileges at [facility] and will try to consult him. Her white count went up to 12.2, LFTs mildly going up. We will hold off on gabapentin for now. 04/30/25 Patient was evaluated at bedside. She is alert, awake and oriented. Her vitals are stable. She is interactive, expressing pain and discussing her medical history. She reports diffuse joint pain and is able to lift her arms or legs slightly due to pain and discomfort. Her active and passive range of motions are limited. She has generalized joint tenderness and weak outside plant cable engineer strength bilaterally. She also passed stool more than 5 times yesterday could be due to lactulose which has been stopped from today. A Percutaneous fluroscopy-guided placement of an 8-F nephrostomy catheter was performed,the patient tolerated the procedure well. Dr. Sanchez saw the patient and came up with possible diagnosis of discitis and osteomyelitis at L2-L3 along with psoas inflammation. She has spondylotisthesis which is non-critical and can be managed medically for now. According to Dr. Lorenzo she will benefit from IgG for 3 days on the background of possible ITP. Her current platelet is 41 and Hgb 9.6. Also, Endocrinology team adjusted Insulin regimen. REVIEW OF SYSTEMS deferred due to patient's condition PHYSICAL EXAM GENERAL APPEARANCE: The patient is alert, awake and oriented NEUROLOGICAL: No motor and sensory deficits. She can move her limbs but limited due to pain and discomfort. HEENT: Face is symmetric. Pupils are equal and reactive. Extraocular movements are intact. NECK: Supple. No JVD. No thyromegaly. No submental, submandibular, pre- /postauricular, occipital or supraclavicular lymphadenopathy. CHEST: Normal chest expansion. LUNGS: Absence of any rales, rhonchi or any wheezing. CARDIOVASCULAR: Regular. S1 and S2 normal. No appreciable rubs, murmurs or gallops. ABDOMEN: Soft, nontender, and nondistended. There is no rebound, voluntary guarding, or rigidity. EXTREMITIES: Non-edematous and not cyanotic. No clubbing. Good capillary refill. SKIN: multiple ecchymoses noted at venipuncture sites Vital Signs (last 8hr) Date Time Temp Pulse Resp B/P (MAP) Pulse Ox O2 Delivery O2 Flow Rate FiO2 04/30/25 08:00 98.1 81 21 122/53 94 Room Air 04/30/25 07:27 84 18 N/A Room Air 04/30/25 04:46 98.6 84 19 142/68 96 Room Air LABS: Laboratory: Test 04/30/25 05:57 04/30/25 05:39 04/29/25 06:07 04/28/25 13:10 Range/Units White Blood Count 10.5 4.8-10.8 K/uL Red Blood Count 3.82 L 4.00-5.50 MIL/uL Hemoglobin 9.6 L 12.0-16.0 g/dL Hematocrit 30.3 L 36-48 % Mean Corpuscular Volume 79.3 79-99 fL Mean Corpuscular Hemoglobin 25.1 L 27.0-33.0 pg Mean Corpuscular Hemoglobin Concent 31.7 L 32.0-36.0 g/dL Red Cell Distribution Width 21.5 H 11.0-15.5 % Platelet Count 41 L 130-400 K/uL Mean Platelet Volume 7.5-10.5 fL Immature Granulocyte % (Auto) 2.2 H 0-1 % Neutrophils (%) (Auto) 89.0 H 40.0-77.0 % Lymphocytes (%) (Auto) 4.5 L 21.0-51.0 % Monocytes (%) (Auto) 3.5 3.0-13.0 % Eosinophils (%) (Auto) 0.6 0.0-8.0 % Basophils (%) (Auto) 0.2 0.0-5.0 % Neutrophils # (Auto) 9.3 H 1.8-7.7 K/uL Lymphocytes # (Auto) 0.5 L 1.0-4.8 K/uL Monocytes # (Auto) 0.4 0.1-1.0 K/uL Eosinophils # (Auto) 0.06 0.00-0.70 K/uL Basophils # (Auto) 0.02 0.00-0.20 K/uL Absolute Immature Granulocyte (auto 0.23 0-1 K/uL Nucleated Red Blood Cells 0.0 0.0-0.19 % Erythrocyte Sedimentation Rate 60 H 0-30 MM/HR Sodium Level 140 136-145 mmol/L Potassium Level 3.6 3.5-5.1 mmol/L Chloride Level 104 101-111 mmol/L Carbon Dioxide Level 28 21-32 mmol/L Blood Urea Nitrogen 19 H 7-18 mg/dL Creatinine 0.8 0.5-1.0 mg/dL Glomerular Filtration Rate Calc 87 >90 mL/min Random Glucose 243 H 70-105 mg/dL Uric Acid 3.5 2.6-7.2 mg/dL Total Calcium 7.8 L 8.5-10.1 mg/dL Total Bilirubin 2.5 H 0.2-1.0 mg/dL Direct Bilirubin 1.2 H 0.0-0.3 mg/dL Aspartate Amino Transf (AST/SGOT) 112 H 10-37 U/L Alanine Aminotransferase (ALT/SGPT) 87 #H 12-78 U/L Alkaline Phosphatase 286 H 50-136 U/L Ammonia 27 11-32 umol/L B-Type Natriuretic Peptide 22 0-100 pg/mL Total Protein 6.7 6.0-8.3 g/dL Albumin 1.7 L 3.5-5.0 g/dL Vancomycin Level Trough 15.0 # 10.0-20.0 UG/ML Whole Blood Glucose 246 H 70-110 MG/DL Prothrombin Time 15.1 H 9.6-11.6 SEC Prothromb Time International Ratio 1.48 H 0.85-1.15 Activated Partial Thromboplast Time 33.4 26.3-35.5 SEC C-Reactive Protein, Quantitative 52.00 H 0.5-3.0 mg/L Procalcitonin 0.94 H 0.05-0.5 ng/mL Hepatitis A IgM Antibody Non-Reactive Nonreactive Hepatitis B Surface Antigen. Non-Reactive Nonreactive Hepatitis B Core IgM Antibody Non-Reactive Negative Hepatitis C Antibody Non-Reactive Nonreactive Urine Osmolality 376 50-1200 mOsm/kg Urine Random Creatinine 27.84 L 30-135 mg/dL Urine Random Sodium 33 L 40-220 mmol/l Urine Random Potassium 20 L 25-125 mmol/L Urine Random Chloride 57 L 110-250 mmol/L Urine Creatinine 30.5 Not Estab. mg/dL Urine Protein/Creatinine Ratio 626 H 0-200 mg/g creat Urine Total Protein 19.1 Not Estab. mg/dL Current Medications Medications (Trade) Dose Ordered Sig/Roberth Route PRN Reason Start Time Stop Time Status Last Admin Dose Admin Acetaminophen (TYLenol 325MG TAB) 650 mg Q4H PRN PO MILD PAIN (1-3) 04/22/25 20:00 05/22/25 19:59 04/30/25 06:17 650 MG Acetaminophen (TYLenol 325MG TAB) 650 mg Q6H PRN PO TEMPERATURE GREATER THAN 101.5 04/22/25 20:00 05/22/25 19:59 04/23/25 10:02 650 MG Atorvastatin Calcium (LIPItor 20MG) 20 mg HS PO 04/24/25 21:00 05/24/25 20:59 04/29/25 21:34 20 MG Ceftriaxone Sodium 1 gm/ Sodium Chloride 50 ml @ 100 mls/hr BID IV 04/22/25 21:00 04/22/25 19:59 DC Ceftriaxone Sodium (ROCEphine 1G INJ) 1 gm BID IVPB 04/22/25 21:00 04/22/25 20:44 DC Ceftriaxone Sodium (ROCEphine 1G INJ) 1 gm BID IVPB 04/23/25 09:00 04/25/25 12:36 DC 04/25/25 09:44 1 GM Dexmedetomidine/ Sodium Chloride (PRECEdex 200MCG/ 50ML-NS) 200 mcg PROTOCOL IV 04/26/25 12:00 04/26/25 14:54 DC Dexmedetomidine/ Sodium Chloride (PRECEdex 400MCG/ 100ML-NS) 400 mcg PROTOCOL PRN IV ANXIETY/AGITATION 04/26/25 19:30 05/26/25 19:29 04/27/25 23:31 400 MCG Dexmedetomidine/ Sodium Chloride (PRECEdex 400MCG/ 100ML-NS) 400 mcg PROTOCOL STAT IV 04/26/25 14:53 04/26/25 14:58 DC 04/26/25 15:18 400 MCG Dextrose 1,000 ml @ 75 mls/hr [id number] IV 04/26/25 12:00 04/30/25 09:36 DC 04/29/25 04:27 150 MLS/HR Dextrose (D50w) 50 ml AD PRN IV HYPOGLYCEMIA PROTOCOL 04/22/25 20:00 05/22/25 19:59 Famotidine (Pepcid 20mg Tab) 20 mg DAILY PO 04/23/25 09:00 04/24/25 09:48 DC 04/23/25 09:33 20 MG Gabapentin (NEURontin 300 MG CAP) 300 mg BID PO 04/24/25 21:00 04/28/25 09:10 DC 04/25/25 21:51 300 MG Glucagon (Glucagon 1mg Kit) 1 mg AD PRN IM HYPOGLYCEMIA PROTOCOL 04/22/25 20:00 05/22/25 19:59 Heparin Sodium (Porcine) (HEParin 5,000 UNIT VIAL) 5,000 unit Q8H SQ 04/25/25 09:00 04/25/25 08:40 DC Hydromorphone HCl (DiLAUDid 0.5MG INJ) 0.5 mg BIDPRN PRN IVP SEVERE PAIN (7-10) 04/25/25 19:00 04/30/25 18:59 04/29/25 23:31 0.5 MG Hydromorphone HCl (DiLAUDid 0.5MG INJ) 0.5 mg Q6H PRN IVP SEVERE PAIN (7-10) 04/23/25 14:00 04/25/25 08:25 DC 04/25/25 04:14 0.5 MG Insulin Glargine (LANtus 100 UNITS/ML 10 ML VIAL) 10 units HS SQ 04/24/25 21:00 04/24/25 16:57 DC Insulin Glargine (LANtus 100 UNITS/ML 10 ML VIAL) 10 units ONCE STAT SQ 04/24/25 10:54 04/24/25 11:00 DC 04/24/25 11:19 10 UNITS Insulin Glargine (LANtus 100 UNITS/ML 10 ML VIAL) 15 units HS SQ 04/24/25 21:00 04/24/25 17:06 DC Insulin Glargine (LANtus 100 UNITS/ML 10 ML VIAL) 30 units ONCE SQ 04/24/25 17:00 04/25/25 06:19 DC 04/24/25 18:16 30 UNITS Insulin Glargine (LANtus 100 UNITS/ML 10 ML VIAL) 40 units DAILY SQ 04/29/25 09:00 04/30/25 07:31 DC Insulin Glargine (LANtus 100 UNITS/ML 10 ML VIAL) 50 units DAILY SQ 04/26/25 09:00 04/29/25 06:49 DC 04/28/25 08:46 50 UNITS Insulin Glargine (LANtus 100 UNITS/ML 10 ML VIAL) 50 units DAILY SQ 04/30/25 09:00 05/30/25 08:59 04/30/25 09:30 50 UNITS Insulin Human Regular (humuLIN R 100 UNIT/ML 3ML) 5 unit TIDAC SQ 04/24/25 17:00 04/24/25 17:06 DC Insulin Human Regular (humuLIN R 100 UNIT/ML 3ML) 8 unit TIDAC SQ 04/28/25 07:30 04/30/25 07:31 DC 04/30/25 06:15 8 UNIT Insulin Human Regular (humuLIN R 100 UNIT/ML 3ML) 10 unit TIDAC SQ 04/24/25 17:00 04/25/25 06:17 DC 04/25/25 06:15 10 UNIT Insulin Human Regular (humuLIN R 100 UNIT/ML 3ML) 12 unit TIDAC SQ 04/30/25 07:30 05/30/25 07:29 04/30/25 09:29 12 UNIT Insulin Human Regular (humuLIN R 100 UNIT/ML 3ML) 15 unit TIDAC SQ 04/26/25 11:30 04/27/25 20:30 DC Insulin Human Regular (humuLIN R 100 UNIT/ML 3ML) 25 unit TIDAC SQ 04/25/25 07:30 04/26/25 07:58 DC 04/25/25 17:39 25 UNIT Insulin Human Regular (humuLIN R 100 UNIT/ML 3ML) INSULIN SLIDING SCAL... ACHS SQ 04/22/25 21:00 04/24/25 16:16 DC 04/24/25 11:18 8 UNIT Insulin Human Regular (humuLIN R 100 UNIT/ML 3ML) INSULIN SLIDING SCAL... ACHS SQ 04/24/25 16:30 04/25/25 14:09 DC 04/25/25 11:57 16 UNIT Insulin Human Regular (humuLIN R 100 UNIT/ML 3ML) INSULIN SLIDING SCAL... ACHS SQ 04/25/25 16:30 05/25/25 16:29 04/30/25 06:14 10 UNIT Insulin Human Regular (humuLIN R 100 UNIT/ML 3ML) INSULIN SLIDING SCAL... Q4H SQ 04/27/25 20:30 04/28/25 09:11 DC 04/28/25 06:00 4 UNIT Lactated Ringer's 1,000 ml @ 100 mls/hr Q10H IV 04/22/25 20:00 04/23/25 10:09 DC 04/23/25 06:00 100 MLS/HR Lactulose (Constulose 20gm/ 30ml Udcup) 30 gm TID PO 04/25/25 11:00 04/30/25 09:45 DC 04/30/25 09:16 30 GM Levothyroxine Sodium (SYNTHroid 125MCG TAB) 125 mcg DAILY@0630 PO 04/25/25 06:30 05/25/25 06:29 04/30/25 06:11 125 MCG Magnesium Sulfate 50 ml @ 0 mls/hr PROTOCOL PRN IV OTHER [SEE ORDER COMMENTS] 04/22/25 20:00 05/22/25 19:59 Methylprednisolone Sodium Succinate (Solu-medROL 125MG) 125 mg Q6H IVP 04/23/25 08:00 04/28/25 09:10 DC 04/25/25 09:45 125 MG Metoprolol Succinate (TopROL XL) 50 mg AM PO 04/25/25 09:00 05/25/25 08:59 04/30/25 09:16 50 MG Ondansetron HCl (zoFRAN 4MG INJ) 4 mg Q6H PRN IV NAUSEA/VOMITING 04/22/25 20:00 05/22/25 19:59 04/22/25 20:10 4 MG Pantoprazole Sodium (PROTonix 40MG INJ) 40 mg DAILY IVP 04/24/25 10:00 05/24/25 09:59 04/30/25 09:15 40 MG Potassium Chloride 100 ml @ 100 mls/hr AD PRN IV POTASSIUM PROTOCOL 04/22/25 20:00 05/22/25 19:59 Potassium Chloride (K-Dur/Klor-Con 20meq) 20 meq AD PRN PO POTASSIUM PROTOCOL 04/22/25 20:00 05/22/25 19:59 Potassium Chloride (KCl 10% Elixir 20meq/15ml) 20 meq AD PRN PO POTASSIUM PROTOCOL 04/22/25 20:00 05/22/25 19:59 Pramipexole Dihydrochloride (miraPEX 0.25MG TAB) 0.5 mg HS PO 04/24/25 21:00 05/24/25 20:59 04/29/25 21:34 0.5 MG Pregabalin ([id number]) 75 mg BID PO 04/24/25 21:00 04/24/25 14:49 DC Sodium Chloride 500 ml @ 0 mls/hr Q0M IV 04/25/25 11:00 05/25/25 10:59 Sodium Zirconium Cyclosilicate (Lokelma 10gm Powder) 10 gm TID PO 04/23/25 21:00 04/23/25 14:11 DC Tramadol HCl (UltRAM) 50 mg Q6H PRN PO MODERATE PAIN (4-6) 04/24/25 22:30 04/29/25 22:29 DC 04/28/25 13:55 50 MG Trimethoprim/ Sulfamethoxazole (BactRIM DS) 1 tab BID PO 04/25/25 21:00 04/26/25 14:50 DC 04/25/25 21:51 1 TAB Vancomycin HCl 250 ml @ 125 mls/hr Q12H IV 04/24/25 23:00 04/25/25 12:36 DC 04/25/25 11:43 125 MLS/HR Vancomycin HCl 250 ml @ 125 mls/hr Q12H IV 04/26/25 15:30 04/28/25 03:13 DC 04/27/25 15:22 125 MLS/HR Vancomycin HCl 250 ml @ 125 mls/hr Q12H IV 04/28/25 15:30 04/28/25 18:53 DC Vancomycin HCl 250 ml @ 125 mls/hr Q12H IV 04/28/25 20:00 05/08/25 19:59 04/30/25 09:16 125 MLS/HR Vancomycin HCl (Vancomycin Protocol) 1 each AD IV 04/24/25 10:30 04/25/25 12:36 DC Vancomycin HCl (Vancomycin Protocol) 1 each AD IV 04/26/25 15:00 05/10/25 14:59 Venlafaxine HCl (EffEXOR XR 37.5mg CAP) 37.5 mg DAILY PO 04/24/25 16:00 05/24/25 15:59 04/30/25 09:16 37.5 MG Venlafaxine HCl (EffEXOR XR 37.5mg CAP) 37.5 mg DAILY PO 04/25/25 09:00 04/24/25 14:50 DC DIAGNOSTICS / RADIOLOGY: [ ] ASSESSMENT: Possible Osteomyelitis Infectious spondylodiscitis L2-L3 MRSA bacteremia Sepsis, ruled out Acute hypoxic hypercapnic respiratory failure, not POA AMS due to suspected steroid induced psychosis or hepatic encephalopathy, not POA Gram positive bacteremia Hyperammonemia due to cirrhosis Intractable low back pain due to spinal stenosis POA 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 Lorenzo, patient to recieve IVIg for suspectd ITP Infectious spondylodiscitis L2-L3 Neurosurgery consult with Dr. Sanchez done, no surgical intervention indicated; continue empiric medical mangement Continue IV antibiotics as per current regimen Neuro checks q4 MRSA bacteremia IV Vancomycin with trough monitoring. Repeat blood cultures - preliminary , negative Contact precautions Acute hypoxic hypercapnic respiratory failure Initiate BIPAP for ventilatory support; monitor ABGs and respiratory rate. Start dexmedetomidine drip for sedation to improve BIPAP compliance. Transfer to ICU for close respiratory and hemodynamic monitoring. Altered Mental Status due to Hepatic Encephalopathy or steroids induced psychos is Start lactulose 30 mg TID Monitor ammonia levels, mental status, and signs of worsening encephalopathy. Discontinue or hold steroids Monitor neuro status and reassess mental status regularly with steroid adjustments. Intractable lower back pain Continue multimodal pain management: acetaminophen, topical agents, consider gabapentin if neuropathic. Currently on dilaudid CT lumbar spine ESR elevated Thrombocytopenia due to ITP Monitor CBC daily; trend platelets. Rule out DIC, splenic sequestration (cirrhosis-related), and medication-induced causes. Avoid NSAIDs, hematology consult Currently on solu medrol 125mg q6, on hold . Acute UTI Monitor for signs of urosepsis Encourage hydration and bladder care Hyponatremia Treat underlying hyperglycemia; avoid rapid sodium correction. Monitor serum Na closely; consider fluid restriction if dilutional. Cirrhosis with portal hypertension Monitor for decompensation: encephalopathy, ascites, variceal bleeding. Consider beta sergio for variceal prophylaxis. Monitor LFTs, INR, and ammonia Her MELD- Na score is 24 points, 14-15% estimated 90 day mortality Hyperglycemia (Uncontrolled Diabetes) Start basal/bolus insulin regimen; monitor blood glucose QID. Educate on diet and insulin compliance; monitor for DKA if concern. Correct electrolytes accordingly. Chronic anemia Monitor trends; assess for iron/B12/folate deficiency. Avoid transfusion unless symptomatic or Hgb <7. GI consult YOLANDA CHOW MD Apr 30, 2025 11:27
[2025-04-30 12:59] LABS: ABG OXYGEN SATURATION 85.8 % (94.0-98.0); BASE EXCESS,VENOUS BLOOD GAS 2.4 (-2.0-3.0); DEVICE COMMENT VENOUS; HCO3,VENOUS BLOOD GAS 26.1 (22.0-29.0); PCO2,VENOUS BLOOD GAS 37 (38-54); PH,VENOUS BLOOD GAS 7.465 (7.320-7.430); PO2,VENOUS BLOOD GAS 52.9 mmHg (23.0-48.0); TEMPERATURE, CELSIUS BG 37.0 CELSIUS (35.5-37.0)
--- NOTE | 2025-04-30 14:25 | CONS ---
[facility] CONSULTATION NOTE Date Patient Seen: Apr 30, 2025 Time of Visit: 14:16 Requesting Physician: [ ] Reason for Consultation: [ ] History of Present Illness: Patient is 54 year old female with liver cirrhosis, esophageal varices, thrombocytopenia, ITP, lupus, type 2 diabetes mellitus with hyperglycemia. She presented with unremitting low back pain. She was admitted for sepsis and renal failure. Creatnine was 1.8 on presentation with hyperkalemia to 6.4 that has been treated. She has MRSA UTI, MRSA bacteremia with persistently positive blood cultures despite vancomycin, lumbar diskitis/osteomyelitis. Imaging revealed Right sided hydronephrosis and she is now status post nephrostomy tube placement. Her ROS is positive for back pain Cardiology consultation requested for consideration of transesophageal echocardiogram Past Medical History: undiagnosed obstructive sleep apnea, diabetes type 2 with hyperglycemia, hypertension, hyperlipidemia, hypothyroidism, restless leg syndrome, anxiety disorder,depression, lupus and severe morbid obesity, immunosuppressed status on chronic prednisone therapy, liver cirrhosis with thrombocytopenia Past Surgical History: cholecystectomy, tubal ligation, nephrostomy tube placement Family History: negative for early CAD or CVA Social History: good family support, no illicit drug use, etoh or tobacco use reported Current Meds: Current Medications Medications Dose Ordered Sig/Roberth Start Time Stop Time Status Last Admin Acetaminophen 650 mg Q6H PRN 04/22/25 20:00 05/22/25 19:59 04/23/25 10:02 Acetaminophen 650 mg Q4H PRN 04/22/25 20:00 05/22/25 19:59 04/30/25 06:17 Ondansetron HCl 4 mg Q6H PRN 04/22/25 20:00 05/22/25 19:59 04/22/25 20:10 Dextrose 50 ml AD PRN 04/22/25 20:00 05/22/25 19:59 Glucagon 1 mg AD PRN 04/22/25 20:00 05/22/25 19:59 Magnesium Sulfate 50 ml @ 0 mls/hr PROTOCOL PRN 04/22/25 20:00 05/22/25 19:59 Potassium Chloride 100 ml @ 100 mls/hr AD PRN 04/22/25 20:00 05/22/25 19:59 Potassium Chloride 20 meq AD PRN 04/22/25 20:00 05/22/25 19:59 Potassium Chloride 20 meq AD PRN 04/22/25 20:00 05/22/25 19:59 Pantoprazole Sodium 40 mg DAILY 04/24/25 10:00 05/24/25 09:59 04/30/25 09:15 Atorvastatin Calcium 20 mg HS 04/24/25 21:00 05/24/25 20:59 04/29/25 21:34 Levothyroxine Sodium 125 mcg DAILY@0630 04/25/25 06:30 05/25/25 06:29 04/30/25 06:11 Metoprolol Succinate 50 mg AM 04/25/25 09:00 05/25/25 08:59 04/30/25 09:16 Pramipexole Dihydrochloride 0.5 mg HS 04/24/25 21:00 05/24/25 20:59 04/29/25 21:34 Venlafaxine HCl 37.5 mg DAILY 04/24/25 16:00 05/24/25 15:59 04/30/25 09:16 Sodium Chloride 500 ml @ 0 mls/hr Q0M 04/25/25 11:00 05/25/25 10:59 Insulin Human Regular INSULIN SLIDING SCAL... ACHS 04/25/25 16:30 05/25/25 16:29 04/30/25 12:51 Vancomycin HCl 1 each AD 04/26/25 15:00 05/10/25 14:59 Dexmedetomidine/ Sodium Chloride 400 mcg PROTOCOL PRN 04/26/25 19:30 05/26/25 19:29 04/27/25 23:31 Vancomycin HCl 250 ml @ 125 mls/hr Q12H 04/28/25 20:00 05/08/25 19:59 04/30/25 09:16 Insulin Glargine 50 units DAILY 04/30/25 09:00 05/30/25 08:59 04/30/25 09:30 Insulin Human Regular 12 unit TIDAC 04/30/25 07:30 05/30/25 07:29 04/30/25 12:53 Hydromorphone HCl 1 mg TIDP PRN 04/30/25 13:00 05/05/25 12:59 04/30/25 12:58 Acetaminophen/ Hydrocodone Bitart 1 tab Q4H PRN 04/30/25 12:00 05/05/25 11:59 Review of Systems: positive for back pain, joint pains. no bleeding or bruising no cough no fevers or chills no chest pain palpitations or near syncope Physical Examination: GENERAL: appears ill ENT: [Hearing grossly intact, normal oropharynx.] NECK: [ Normal carotid upstrokes without bruits.] LUNGS: [Clear breath sounds bilaterally. No distress. rNo wheezes, or rhonchi.] HEART: [Normal rate and rhythm. Normal S1 and S2 without mumurs, gallop or rub.] VASC: [Peripheral pulses +2 bilaterally.] EXT: [No clubbing, cyanosis or edema.] SKIN: [No rashes or lesions noted.] NEURO: [Awake, alert, and oriented x3. No focal sensory or strength deficits noted.] Vital Signs (last 8hr) Date Time Temp Pulse Resp B/P (MAP) Pulse Ox O2 Delivery O2 Flow Rate FiO2 04/30/25 12:00 98.2 91 21 142/77 93 Room Air 21 04/30/25 08:00 98.1 81 21 122/53 94 Room Air 21 04/30/25 07:27 84 18 N/A Room Air 21 Laboratory: [ ] Hematology Labs: Test 04/30/25 05:57 Range/Units White Blood Count 10.5 4.8-10.8 K/uL Red Blood Count 3.82 L 4.00-5.50 MIL/uL Hemoglobin 9.6 L 12.0-16.0 g/dL Hematocrit 30.3 L 36-48 % Mean Corpuscular Volume 79.3 79-99 fL Mean Corpuscular Hemoglobin 25.1 L 27.0-33.0 pg Mean Corpuscular Hemoglobin Concent 31.7 L 32.0-36.0 g/dL Red Cell Distribution Width 21.5 H 11.0-15.5 % Platelet Count 41 L 130-400 K/uL Mean Platelet Volume 7.5-10.5 fL Immature Granulocyte % (Auto) 2.2 H 0-1 % Neutrophils (%) (Auto) 89.0 H 40.0-77.0 % Lymphocytes (%) (Auto) 4.5 L 21.0-51.0 % Monocytes (%) (Auto) 3.5 3.0-13.0 % Eosinophils (%) (Auto) 0.6 0.0-8.0 % Basophils (%) (Auto) 0.2 0.0-5.0 % Neutrophils # (Auto) 9.3 H 1.8-7.7 K/uL Lymphocytes # (Auto) 0.5 L 1.0-4.8 K/uL Monocytes # (Auto) 0.4 0.1-1.0 K/uL Eosinophils # (Auto) 0.06 0.00-0.70 K/uL Basophils # (Auto) 0.02 0.00-0.20 K/uL Absolute Immature Granulocyte (auto 0.23 0-1 K/uL Nucleated Red Blood Cells 0.0 0.0-0.19 % Erythrocyte Sedimentation Rate 60 H 0-30 MM/HR Chemistry Labs: Test 04/30/25 11:37 04/30/25 05:57 04/29/25 06:07 Range/Units Whole Blood Glucose 179 H 70-110 MG/DL Bedside Glucose Comment Notified Nurse Sodium Level 140 136-145 mmol/L Potassium Level 3.6 3.5-5.1 mmol/L Chloride Level 104 101-111 mmol/L Carbon Dioxide Level 28 21-32 mmol/L Blood Urea Nitrogen 19 H 7-18 mg/dL Creatinine 0.8 0.5-1.0 mg/dL Glomerular Filtration Rate Calc 87 >90 mL/min Random Glucose 243 H 70-105 mg/dL Uric Acid 3.5 2.6-7.2 mg/dL Total Calcium 7.8 L 8.5-10.1 mg/dL Total Bilirubin 2.5 H 0.2-1.0 mg/dL Direct Bilirubin 1.2 H 0.0-0.3 mg/dL Aspartate Amino Transf (AST/SGOT) 112 H 10-37 U/L Alanine Aminotransferase (ALT/SGPT) 87 #H 12-78 U/L Alkaline Phosphatase 286 H 50-136 U/L Ammonia 27 11-32 umol/L B-Type Natriuretic Peptide 22 0-100 pg/mL Total Protein 6.7 6.0-8.3 g/dL Albumin 1.7 L 3.5-5.0 g/dL C-Reactive Protein, Quantitative 52.00 H 0.5-3.0 mg/L Procalcitonin 0.94 H 0.05-0.5 ng/mL Coagulation Labs: Test 04/29/25 06:07 Range/Units Prothrombin Time 15.1 H 9.6-11.6 SEC Prothromb Time International Ratio 1.48 H 0.85-1.15 Activated Partial Thromboplast Time 33.4 26.3-35.5 SEC Diagnostics / Radiology: Echocardiogram Conclusion LVEF is 55-60%. Stage I diastolic dysfunction. No regional wall motion abnormalities noted. Mitral regurgitation is trace. Mild tricuspid regurgitation. The ascending aorta is normal in size. DICTATED BY: BELL GOODMAN MD DATE: 04/27/25 0830 //// L spine MRI IMPRESSION: Infectious spondylodiscitis centered at the L2???L3 intervertebral disc with associated marrow edema in the L2 and L3 vertebral bodies, intradiscal collection, prevertebral soft tissue edema, and right psoas muscle edema. Recommend contrast MRI lumbar spine. Multilevel diffuse disc bulges from T12???L1 through L5???S1 with varying degrees of thecal sac indentation and bilateral traversing and exiting nerve root compression. Severe bilateral neural foraminal narrowing at L4???L5, moderate to severe at L3???L4, and moderate at L2???L3 and L5???S1. Ligamentum flavum hypertrophy and facet arthropathy at L3???L4 and L4???L5 levels. Multilevel disc desiccation and marginal osteophytes consistent with spondylotic changes. Spinal canal stenosis with midsagittal AP diameters of 11 mm or less at L2???L3, L3???L4, and L4???L5. /[place] //// CT A/P MPRESSION: Nodular liver contour and reduced liver span measuring 10.3 cm, concerning for cirrhosis. Peripancreatic fat stranding and fluid without any organized pancreatic or peripancreatic collections, concerning for acute edematous interstitial pancreatitis. Splenomegaly measuring 14.4 cm. Multiple portosystemic collateral vascular channels in the periportal and peripancreatic regions. Bilateral mild pleural effusion with adjacent basal subsegmental atelectasis. Minimal ascites. Patchy fat stranding in the right paracolic gutter. Moderate amount of colonic fecal content, concerning for constipation. Surgically absent gallbladder. Urinary bladder decompressed with Nolasco???s bulb in place. No evidence of hydronephrosis, hydroureter, or urolithiasis. /[place] // RETROPERITONEAL LTD US IMPRESSION: Increased moderate right hydronephrosis. /[place] Assessment: MRSA bacteremia, persistently positive blood cultures UTI, MRSA Right sided hydronephrosis status post Percutaneous fluoroscopy-guided placement of an 8-[place] nephrostomy catheter with placement of a drainage bag for external drainage. Infectious spondylodiscitis centered at the L2L3 intervertebral disc with associated marrow edema in the L2 and L3 vertebral bodies, intradiscal collection, prevertebral soft tissue edema, and right psoas muscle edema. Lumbar spinal stenosis Splenomegaly Pleural effusions ITP Lupus Liver cirrhosis, hepatomegaly, with varices, transaminitis, hyperbilirubinemia Immunosuppressed status, on chronic steroid therapy prior to admission Plan: Not a candidate for transesophageal echocardiogram due to thrombocytopenia, cirrhosis with esophageal varices, and overall bleeding risk Her TTE did not show intracardiac mass or concern for vegetation She has MRSA bacteremia with UTI and diskitis/lumbar osteomyelitis Consider at least 6 weeks ABX therapy, with final decision per JOVI LANDON DO Apr 30, 2025 14:25
--- NOTE | 2025-04-30 14:31 | PN ---
[facility] PROGRESS NOTE Date Patient Seen: Apr 30, 2025 Time of Visit: 14:31 Supervising Physician: Dr. Alvin Melton PROBLEM LIST: MRSA bacteremia, POA, persistent, concern for endocarditis Acute hypoxic hypercarbic respiratory failure on venous blood draw on 04/26/2025, resolved Encephalopathy due to suspected steroid induced psychosis or hepatic encephalopathy, not POA, resolved Infectious spondylodiscitis at the L and L3 intervertebral disc Intractable low back pain due to spinal stenosis, POA Moderate right hydronephrosis US 04/24/25 w/ urinary bladder retention S/P FC S/P Right nephrostomy tube on 04/30/2025 Hyperammonemia due to cirrhosis 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 POA Acute urinary tract infection due to complicated cystitis 2/2 MRSA POA Hypervolemic hyponatremia, POA Chronic anemia, POA Hyponatremia, POA Acute kidney injury on renal insufficiency POA Hyperglycemia due to uncontrolled diabetes POA Hypocalcemia POA Cirrhotic liver with splenomegaly consistent with portal hypertension per CT POA Liver Lesion lesion that measures 1.3 x 1.1 x 1.7 cm in the right lobe. on US Esophageal varices Renal parenchymal disease per CT, POA Hypothyroidism Hypocalcemia Hyperlipidemia Hypertension Anxiety disorder Depression Restless leg syndrome Suspected OHS Morbid obesity, BMI 47.5 INTERVAL HISTORY: Patient assessed at bedside. AAOX3. Currently on room air. Complains of right flank pain S/P right nephrostomy tube. WBC 10.5, Hemoglobin 9.6, platelet count of 41 K, pending IVIG to be started per oncology. Complains of generalized body pain. Denies any chest pain, SOB, nausea or vomiting. Family at bedside. Repeat blood culture positive for gram positive bacteremia. Cardiology has been consulted for RAMAN. CXR and ABG ordered. Prognosis is guarded. REVIEW OF SYSTEMS: General: No malaise or fever. Neurological: No fainting episodes or seizures. HEENT: No nasal congestion or nasal secretion. Respiratory: No cough, shortness of breath, or wheezing Cardiac: No chest pain or palpitations. Gastrointestinal: No vomiting or diarrhea. Genitourinary: No dysuria hematuria. Skin: No rashes or lesions. Hematological: No bruises or bleeding. Musculoskeletal: No joint pains or arthralgias. Psychiatric: No depression or panic attacks. PHYSICAL EXAM: GENERAL: Patient is awake alert and oriented x3. Cooperative and calm. HEENT: EOMI, Sclera non icteric, moist mucosa NECK: Supple, no JVD, trachea midline LUNGS: Clear breath sounds bilaterally. No wheezes HEART: Regular rate and rhythm. Normal S1 and S2, without murmurs ABD: Abdomen soft, nontender. Bowel sounds present EXT: No clubbing cyanosis or edema NEURO: AAOX3, follows commands Vital Signs (last 8hr) Date Time Temp Pulse Resp B/P (MAP) Pulse Ox O2 Delivery O2 Flow Rate FiO2 04/30/25 12:00 98.2 91 21 142/77 93 Room Air 21 04/30/25 08:00 98.1 81 21 122/53 94 Room Air 21 04/30/25 07:27 84 18 N/A Room Air 21 LABS: Hematology Labs: Test 04/30/25 05:57 Range/Units White Blood Count 10.5 4.8-10.8 K/uL Red Blood Count 3.82 L 4.00-5.50 MIL/uL Hemoglobin 9.6 L 12.0-16.0 g/dL Hematocrit 30.3 L 36-48 % Mean Corpuscular Volume 79.3 79-99 fL Mean Corpuscular Hemoglobin 25.1 L 27.0-33.0 pg Mean Corpuscular Hemoglobin Concent 31.7 L 32.0-36.0 g/dL Red Cell Distribution Width 21.5 H 11.0-15.5 % Platelet Count 41 L 130-400 K/uL Mean Platelet Volume 7.5-10.5 fL Immature Granulocyte % (Auto) 2.2 H 0-1 % Neutrophils (%) (Auto) 89.0 H 40.0-77.0 % Lymphocytes (%) (Auto) 4.5 L 21.0-51.0 % Monocytes (%) (Auto) 3.5 3.0-13.0 % Eosinophils (%) (Auto) 0.6 0.0-8.0 % Basophils (%) (Auto) 0.2 0.0-5.0 % Neutrophils # (Auto) 9.3 H 1.8-7.7 K/uL Lymphocytes # (Auto) 0.5 L 1.0-4.8 K/uL Monocytes # (Auto) 0.4 0.1-1.0 K/uL Eosinophils # (Auto) 0.06 0.00-0.70 K/uL Basophils # (Auto) 0.02 0.00-0.20 K/uL Absolute Immature Granulocyte (auto 0.23 0-1 K/uL Nucleated Red Blood Cells 0.0 0.0-0.19 % Erythrocyte Sedimentation Rate 60 H 0-30 MM/HR Chemistry Labs: Test 04/30/25 11:37 04/30/25 05:57 04/29/25 06:07 Range/Units Whole Blood Glucose 179 H 70-110 MG/DL Bedside Glucose Comment Notified Nurse Sodium Level 140 136-145 mmol/L Potassium Level 3.6 3.5-5.1 mmol/L Chloride Level 104 101-111 mmol/L Carbon Dioxide Level 28 21-32 mmol/L Blood Urea Nitrogen 19 H 7-18 mg/dL Creatinine 0.8 0.5-1.0 mg/dL Glomerular Filtration Rate Calc 87 >90 mL/min Random Glucose 243 H 70-105 mg/dL Uric Acid 3.5 2.6-7.2 mg/dL Total Calcium 7.8 L 8.5-10.1 mg/dL Total Bilirubin 2.5 H 0.2-1.0 mg/dL Direct Bilirubin 1.2 H 0.0-0.3 mg/dL Aspartate Amino Transf (AST/SGOT) 112 H 10-37 U/L Alanine Aminotransferase (ALT/SGPT) 87 #H 12-78 U/L Alkaline Phosphatase 286 H 50-136 U/L Ammonia 27 11-32 umol/L B-Type Natriuretic Peptide 22 0-100 pg/mL Total Protein 6.7 6.0-8.3 g/dL Albumin 1.7 L 3.5-5.0 g/dL C-Reactive Protein, Quantitative 52.00 H 0.5-3.0 mg/L Procalcitonin 0.94 H 0.05-0.5 ng/mL Coagulation Labs: Test 04/29/25 06:07 Range/Units Prothrombin Time 15.1 H 9.6-11.6 SEC Prothromb Time International Ratio 1.48 H 0.85-1.15 Activated Partial Thromboplast Time 33.4 26.3-35.5 SEC DIAGNOSTICS / RADIOLOGY RESULTS: NA PLAN Pending RAMAN by cardiology BIPAP wean as possible Monitor hemodynamics Monitor for fevers Continue vancomycin per ID NEURO: Minimize central acting medications as possible. Maintain fall precautions, adequate lighting during the day PULMONARY: Supplemental 02 as needed. Maintain aspiration precautions at all times CARDIOVASCULAR: Follow hemodynamics. Vital signs per facility protocol GI & NUTRITION: Continue with nutritional support. Continue stool softeners and laxatives as needed. KIDNEYS & ELECTROLYTES: Strict monitoring of intake, output and overall fluid balance. Avoid nephrotoxic medications to the extent possible. Medications to be dosed according to renal function. Monitor electrolytes and replace as needed ENDOCRINE: Maintain blood glucose between 100-180 at all times. Hypoglycemia protocol in place INFECTIOUS DISEASE: Trend temperature, WBC and procalcitonin level Follow cultures, deescalate antibiotics as soon as possible. Panculture if new onset fever ONCOLOGY/HEMATOLOGY/COAGULATION: Monitor for s/s of bleeding Monitor hemoglobin, coagulation studies as needed SKIN: Pressure ulcer prevention per facility protocol Specialty mattress ORTHO/REHAB: Continue PT/OT Prophylaxis: Continue GI and DVT prophylaxis Code Status: Full Resuscitation Disposition: per primary team Total critical care time: 35 minutes excluding procedures GABE VAIL NP Apr 30, 2025 14:31
--- NOTE | 2025-04-30 16:30 | NUR ---
IGG Follow-up This CM spoke with Paint Prep Technician who stated will take a telephone order for the IGG, but will still require the form to be signed. This CM spoke with Dr. Lorenzo and confirmed that IGG is still needed. Confirmed the duration is 3 days, but requested the dosage. Orders received and read back. CM informed Dr. Lorenzo to please sign the form tomorrow during rounds. CM requested from nursing program coordinator to have form flagged for him in the chart. CM to follow to ensure signature is obtained. Updated pharmacy scheduler that dosage is 40 g daily x 3 days.
--- NOTE | 2025-04-30 21:39 | PN ---
endocrinology progress note Date of Service: Apr 30, 2025 subjective: glucose are improving now and off iv steroids now hba1c 9.2, home regimen: lantus 30 units daily and humalog 10 units tid before meals. patient glucose are stable. off iv steroid MTP. PAST MEDICAL HISTORY: [undiagnosed obstructive sleep apnea, diabetes type 2, hypertension, hyperlipidemia, hypothyroidism, restless leg syndrome, anxiety disorder,depression, lupus and severe morbid obesity ] PAST SURGICAL HISTORY: [ Cholecystectomy, tubal ligation] PAST SOCIAL HISTORY: [ Patient lives with . Patient denies alcohol tobacco and recreational drug use] FAMILY HISTORY: [ Hypertension, diabetes, cardiovascular disease and Alzheimer's disease ] Coded Allergies: No Known Allergies (Unverified Allergy, Unknown, 08/26/14) ASSESSMENT: hyperglycemia due to uncontrolled dm-2 and off iv steroids now. glucose are improving. hba1c 9.2, home regimen: lantus 30 units daily and humalog 10 units tid before meals. Intractable low back pain POA Acute thrombocytopenia POA Acute urinary tract infection POA Chronic anemia POA Hyponatremia POA Acute kidney injury on renal insufficiency POA Hypocalcemia POA Cirrhotic liver with splenomegaly consistent with portal hypertension per CT POA Renal parenchymal disease per CT POA Hypothyroidism POA Hyperlipidemia POA Hypertension POA Anxiety disorder POA Depression POA Restless leg syndrome POA Suspected obstructive sleep apnea untreated POA Morbid obesity POA PLAN: increase lantus to 50 units daily hyperglycemia. increase regular insulin to 12 units qac before meals continue high dose ssi monitor glucose qx6 hourly Vitals/Labs Vital Signs Date Time Temp Pulse Resp B/P (MAP) Pulse Ox O2 Delivery O2 Flow Rate FiO2 04/30/25 20:00 98.1 77 24 138/80 93 Room Air 04/30/25 19:33 21 04/30/25 09:15 3 Laboratory Tests 04/30/25 05:57 Medications Current Medications Sodium Chloride 1,000 ml @ 0 mls/hr ONCE ONCE IV Last administered on 04/22/25at 17:27; Start 04/22/25 at 17:00; Stop 04/22/25 at 17:01; Status DC Ceftriaxone Sodium 1 gm ONCE ONCE IVPB Last administered on 04/22/25at 19:43; Start 04/22/25 at 19:00; Stop 04/22/25 at 19:01; Status DC Acetaminophen 650 mg Q6H PRN PO Last administered on 04/23/25at 10:02; Start 04/22/25 at 20:00; Stop 05/22/25 at 19:59 Acetaminophen 650 mg Q4H PRN PO Last administered on 04/30/25at 06:17; Start 04/22/25 at 20:00; Stop 05/22/25 at 19:59 Ondansetron HCl 4 mg Q6H PRN IV Last administered on 04/22/25at 20:10; Start 04/22/25 at 20:00; Stop 05/22/25 at 19:59 Famotidine 20 mg DAILY PO Last administered on 04/23/25at 09:33; Start 04/23/25 at 09:00; Stop 04/24/25 at 09:48; Status DC Ceftriaxone Sodium 1 gm/ Sodium Chloride 50 ml @ 100 mls/hr BID IV; Start 04/22/25 at 21:00; Stop 04/22/25 at 19:59; Status DC Lactated Ringer's 1,000 ml @ 100 mls/hr Q10H IV Last administered on 04/23/25at 06:00; Start 04/22/25 at 20:00; Stop 04/23/25 at 10:09; Status DC Insulin Human Regular INSULIN SLIDING SCAL... ACHS SQ Last administered on 04/24/25at 11:18; Start 04/22/25 at 21:00; Stop 04/24/25 at 16:16; Status DC Dextrose 50 ml AD PRN IV; Start 04/22/25 at 20:00; Stop 05/22/25 at 19:59 Glucagon 1 mg AD PRN IM; Start 04/22/25 at 20:00; Stop 05/22/25 at 19:59 Magnesium Sulfate 50 ml @ 0 mls/hr PROTOCOL PRN IV; Start 04/22/25 at 20:00; Stop 05/22/25 at 19:59 Potassium Chloride 100 ml @ 100 mls/hr AD PRN IV; Start 04/22/25 at 20:00; Stop 05/22/25 at 19:59 Potassium Chloride 20 meq AD PRN PO; Start 04/22/25 at 20:00; Stop 05/22/25 at 19:59 Potassium Chloride 20 meq AD PRN PO; Start 04/22/25 at 20:00; Stop 05/22/25 at 19:59 Ceftriaxone Sodium 1 gm BID IVPB; Start 04/22/25 at 21:00; Stop 04/22/25 at 20:44; Status DC Morphine Sulfate 4 mg ONCE ONCE IVP Last administered on 04/22/25at 20:11; Start 04/22/25 at 20:30; Stop 04/22/25 at 20:31; Status DC Lidocaine 1 each ONCE ONCE TP Last administered on 04/22/25at 21:14; Start 04/22/25 at 21:00; Stop 04/22/25 at 21:01; Status DC Ceftriaxone Sodium 1 gm BID IVPB Last administered on 04/25/25at 09:44; Start 04/23/25 at 09:00; Stop 04/25/25 at 12:36; Status DC Methylprednisolone Sodium Succinate 125 mg Q6H IVP Last administered on 04/25/25at 09:45; Start 04/23/25 at 08:00; Stop 04/28/25 at 09:10; Status DC Albuterol Sulfate 1.25 ONCE ONCE IH Last administered on 04/23/25at 09:40; Start 04/23/25 at 09:30; Stop 04/23/25 at 09:31; Status DC Calcium Gluconate 1 gm ONCE ONCE IV Last administered on 04/23/25at 10:55; Start 04/23/25 at 10:30; Stop 04/23/25 at 10:31; Status DC Sodium Chloride 50 ml @ 0 mls/hr ONCE ONCE IV Last administered on 04/23/25at 11:00; Start 04/23/25 at 11:00; Stop 04/23/25 at 11:01; Status DC Sodium Zirconium Cyclosilicate 10 gm ONCE ONCE PO Last administered on 04/23/25at 14:14; Start 04/23/25 at 14:00; Stop 04/23/25 at 16:08; Status DC Hydromorphone HCl 0.5 mg Q6H PRN IVP Last administered on 04/25/25at 04:14; Start 04/23/25 at 14:00; Stop 04/25/25 at 08:25; Status DC Sodium Zirconium Cyclosilicate 10 gm TID PO; Start 04/23/25 at 21:00; Stop 04/23/25 at 14:11; Status DC Pantoprazole Sodium 40 mg DAILY IVP Last administered on 04/30/25at 09:15; Start 04/24/25 at 10:00; Stop 05/24/25 at 09:59 Pregabalin 75 mg BID PO; Start 04/24/25 at 21:00; Stop 04/24/25 at 14:49; Status DC Vancomycin HCl 1 each AD IV; Start 04/24/25 at 10:30; Stop 04/25/25 at 12:36; Status DC Vancomycin HCl 500 ml @ 250 mls/hr ONCE ONCE IV Last administered on 04/24/25at 12:46; Start 04/24/25 at 11:00; Stop 04/24/25 at 12:59; Status DC Vancomycin HCl 250 ml @ 125 mls/hr Q12H IV Last administered on 04/25/25at 11:43; Start 04/24/25 at 23:00; Stop 04/25/25 at 12:36; Status DC Insulin Glargine 10 units HS SQ; Start 04/24/25 at 21:00; Stop 04/24/25 at 16:57; Status DC Insulin Glargine 10 units ONCE STAT SQ Last administered on 04/24/25at 11:19; Start 04/24/25 at 10:54; Stop 04/24/25 at 11:00; Status DC Atorvastatin Calcium 20 mg HS PO Last administered on 04/30/25at 20:39; Start 04/24/25 at 21:00; Stop 05/24/25 at 20:59 Gabapentin 300 mg BID PO Last administered on 04/25/25at 21:51; Start 04/24/25 at 21:00; Stop 04/28/25 at 09:10; Status DC Levothyroxine Sodium 125 mcg DAILY@0630 PO Last administered on 04/30/25at 06:11; Start 04/25/25 at 06:30; Stop 05/25/25 at 06:29 Metoprolol Succinate 50 mg AM PO Last administered on 04/30/25at 09:16; Start 04/25/25 at 09:00; Stop 05/25/25 at 08:59 Venlafaxine HCl 37.5 mg DAILY PO; Start 04/25/25 at 09:00; Stop 04/24/25 at 14:50; Status DC Pramipexole Dihydrochloride 0.5 mg HS PO Last administered on 04/30/25at 20:39; Start 04/24/25 at 21:00; Stop 05/24/25 at 20:59 Venlafaxine HCl 37.5 mg DAILY PO Last administered on 04/30/25at 09:16; Start 04/24/25 at 16:00; Stop 05/24/25 at 15:59 Insulin Human Regular INSULIN SLIDING SCAL... ACHS SQ Last administered on 04/25/25at 11:57; Start 04/24/25 at 16:30; Stop 04/25/25 at 14:09; Status DC Insulin Glargine 15 units HS SQ; Start 04/24/25 at 21:00; Stop 04/24/25 at 17:06; Status DC Insulin Human Regular 5 unit TIDAC SQ; Start 04/24/25 at 17:00; Stop 04/24/25 at 17:06; Status DC Insulin Glargine 30 units ONCE SQ Last administered on 04/24/25at 18:16; Start 04/24/25 at 17:00; Stop 04/25/25 at 06:19; Status DC Insulin Human Regular 10 unit TIDAC SQ Last administered on 04/25/25at 06:15; Start 04/24/25 at 17:00; Stop 04/25/25 at 06:17; Status DC Tramadol HCl 50 mg Q6H PRN PO Last administered on 04/28/25at 13:55; Start 04/24/25 at 22:30; Stop 04/29/25 at 22:29; Status DC Insulin Human Regular 25 unit TIDAC SQ Last administered on 04/25/25at 17:39; Start 04/25/25 at 07:30; Stop 04/26/25 at 07:58; Status DC Insulin Glargine 70 units ONCE ONCE SQ Last administered on 04/25/25at 06:27; Start 04/25/25 at 06:30; Stop 04/25/25 at 06:31; Status DC Hydromorphone HCl 0.5 mg BIDPRN PRN IVP Last administered on 04/29/25at 23:31; Start 04/25/25 at 19:00; Stop 04/30/25 at 11:59; Status DC Heparin Sodium (Porcine) 5,000 unit Q8H SQ; Start 04/25/25 at 09:00; Stop 04/25/25 at 08:40; Status DC Lactulose 30 gm TID PO Last administered on 04/30/25at 09:16; Start 04/25/25 at 11:00; Stop 04/30/25 at 09:45; Status DC Sodium Chloride 500 ml @ 0 mls/hr Q0M IV; Start 04/25/25 at 11:00; Stop 05/25/25 at 10:59 Trimethoprim/ Sulfamethoxazole 1 tab BID PO Last administered on 04/25/25at 21:51; Start 04/25/25 at 21:00; Stop 04/26/25 at 14:50; Status DC Insulin Human Regular INSULIN SLIDING SCAL... ACHS SQ Last administered on 04/30/25at 12:51; Start 04/25/25 at 16:30; Stop 05/25/25 at 16:29 Diazepam 10 mg ONCE ONCE IM; Start 04/25/25 at 15:00; Stop 04/25/25 at 15:01; Status DC Lactulose 200 gm ONCE ONCE TX Last administered on 04/25/25at 17:30; Start 04/25/25 at 16:30; Stop 04/25/25 at 16:31; Status DC Lorazepam 0.5 mg ONCE ONCE PO Last administered on 04/25/25at 19:07; Start 04/25/25 at 19:00; Stop 04/25/25 at 19:01; Status DC Haloperidol Lactate 1 mg ONCE ONCE IM Last administered on 04/26/25at 05:17; Start 04/26/25 at 05:00; Stop 04/26/25 at 05:02; Status DC Insulin Human Regular 15 unit TIDAC SQ; Start 04/26/25 at 11:30; Stop 04/27/25 at 20:30; Status DC Insulin Glargine 50 units DAILY SQ Last administered on 04/28/25at 08:46; Start 04/26/25 at 09:00; Stop 04/29/25 at 06:49; Status DC Dextrose 1,000 ml @ 75 mls/hr [id number] IV Last administered on 04/29/25at 04:27; Start 04/26/25 at 12:00; Stop 04/30/25 at 09:36; Status DC Dexmedetomidine/ Sodium Chloride 200 mcg PROTOCOL IV; Start 04/26/25 at 12:00; Stop 04/26/25 at 14:54; Status DC Dexmedetomidine/ Sodium Chloride 400 mcg STK-MED ONCE IV; Start 04/26/25 at 14:49; Stop 04/26/25 at 14:50; Status DC Vancomycin HCl 1 each AD IV; Start 04/26/25 at 15:00; Stop 05/10/25 at 14:59 Dexmedetomidine/ Sodium Chloride 400 mcg PROTOCOL STAT IV Last administered on 04/26/25at 15:18; Start 04/26/25 at 14:53; Stop 04/26/25 at 14:58; Status DC Vancomycin HCl 250 ml @ 125 mls/hr Q12H IV Last administered on 04/27/25at 15:22; Start 04/26/25 at 15:30; Stop 04/28/25 at 03:13; Status DC Dexmedetomidine/ Sodium Chloride 400 mcg PROTOCOL PRN IV Last administered on 04/27/25at 23:31; Start 04/26/25 at 19:30; Stop 05/26/25 at 19:29 Dexmedetomidine/ Sodium Chloride 400 mcg STK-MED ONCE IV Last administered on 04/26/25at 19:14; Start 04/26/25 at 19:10; Stop 04/26/25 at 19:11; Status DC Insulin Human Regular INSULIN SLIDING SCAL... Q4H SQ Last administered on 04/28/25at 06:00; Start 04/27/25 at 20:30; Stop 04/28/25 at 09:11; Status DC Vancomycin HCl 250 ml @ 125 mls/hr Q12H IV; Start 04/28/25 at 15:30; Stop 04/28/25 at 18:53; Status DC Insulin Human Regular 8 unit TIDAC SQ Last administered on 04/30/25at 06:15; Start 04/28/25 at 07:30; Stop 04/30/25 at 07:31; Status DC Vancomycin HCl 250 ml @ 125 mls/hr Q12H IV Last administered on 04/30/25at 20:39; Start 04/28/25 at 20:00; Stop 05/08/25 at 19:59 Insulin Glargine 40 units DAILY SQ; Start 04/29/25 at 09:00; Stop 04/30/25 at 07:31; Status DC Lidocaine HCl 50 ml STK-MED ONCE .ROUTE; Start 04/29/25 at 16:03; Stop 04/29/25 at 16:06; Status DC Heparin Sodium/ Sodium Chloride 500 ml @ As Directed STK-MED ONCE IV; Start 04/29/25 at 16:03; Stop 04/29/25 at 16:06; Status DC Iodixanol 100 ml STK-MED ONCE .ROUTE; Start 04/29/25 at 16:04; Stop 04/29/25 at 16:06; Status DC Fentanyl Citrate 100 mcg STK-MED ONCE .ROUTE; Start 04/29/25 at 16:27; Stop 04/29/25 at 16:28; Status DC Midazolam HCl 2 mg STK-MED ONCE .ROUTE; Start 04/29/25 at 16:28; Stop 04/29/25 at 16:28; Status DC Midazolam HCl 2 mg STK-MED ONCE .ROUTE; Start 04/29/25 at 16:52; Stop 04/29/25 at 16:52; Status DC Lidocaine 1 each ONCE ONCE TP Last administered on 04/29/25at 19:18; Start 04/29/25 at 18:30; Stop 04/29/25 at 18:33; Status DC Insulin Glargine 50 units DAILY SQ Last administered on 04/30/25at 09:30; Start 04/30/25 at 09:00; Stop 05/30/25 at 08:59 Insulin Human Regular 12 unit TIDAC SQ Last administered on 04/30/25at 12:53; Start 04/30/25 at 07:30; Stop 05/30/25 at 07:29 Hydromorphone HCl 1 mg TIDP PRN IVP Last administered on 04/30/25at 20:44; Start 04/30/25 at 13:00; Stop 05/05/25 at 12:59 Acetaminophen/ Hydrocodone Bitart 1 tab Q4H PRN PO; Start 04/30/25 at 12:00; Stop 05/05/25 at 11:59 Pharmacy Profile Note 1 each ONCE MISC; Start 05/01/25 at 08:00; Stop 04/30/25 at 16:52; Status DC Immune Globulin 400 ml @ 0 mls/hr Q24H IV; Start 05/01/25 at 14:00; Stop 05/03/25 at 14:01 PARAG VANG MD Apr 30, 2025 21:39
--- NOTE | 2025-04-30 21:48 | PN ---
INFECTIOUS DISEASE PROGRESS NOTE Date of Service: Apr 30, 2025 SUBJECTIVE: This is a 54 year old female patient who was seen and examined at bedside in room 314. Patient is status post right nephrostomy tube yesterday, very small amount of hematuria observed in the drainage bag. No fever, temperature is 98.1 and the WBC has trended down to 10.5. Patient continues with positive blood cultures, preliminary report of the repeat blood culture is growing Gram-positive cocci in clusters, Staphylococcus aureus. Cardiology has been consulted for a possible RAMAN, patient however continues thrombocytopenic even after 1 unit of platelets that was transfused yesterday. Patient has been evaluated by neurosurgeon for the abnormal MRI of the lumbar spine. We will continue on vancomycin. Patient will need 6 weeks of IV antibiotics. PHYSICAL EXAM EYES: Anicteric. Pupils equal and reactive. HENT: No oral thrush seen, moist Oral mucosa NECK: Supple, no JVD or thyromegaly. LUNGS: Good air entry. No rales, no rhonchi. Diminished breath sounds. Oxygen support as needed. CARDIOVASCULAR: S1, S2 regular. No murmur heard. ABDOMEN: Soft, non tender, bowel sounds present, no organomegaly. SKIN: No rashes, no swelling. LYMPHATICS: No peripheral lymphadenopathy MUSCULOSKELETAL: No joint swelling, erythema or tenderness. EXTREMITIES: No cyanosis or clubbing BACK: No deformity, no pressure ulcer. GENITOURINARY: No dysuria or hematuria, Nolasco catheter. Vital Sign (Last 12 Hours) 04/30/25 04/30/25 04/30/25 04/30/25 12:00 16:00 19:33 20:00 Temp 98.2 97.5 98.1 Pulse 91 84 86 77 Resp 21 22 18 24 B/P (MAP) 142/77 149/67 138/80 Pulse Ox 93 89 93 O2 Delivery Room Air Room Air N/A Room Air Room Air FiO2 21 21 21 Intake & Output (last 24hrs) 04/29/25 04/29/25 04/30/25 15:00 23:00 07:00 Output Total 500 ml 325 ml 600 ml Balance -500 ml -325 ml -600 ml LABS: Laboratory: Test 04/30/25 19:37 04/30/25 15:50 04/30/25 05:57 04/29/25 19:00 Range/Units Whole Blood Glucose 130 H 70-110 MG/DL Bedside Glucose Comment Notified Nurse White Blood Count 10.5 4.8-10.8 K/uL Red Blood Count 3.82 L 4.00-5.50 MIL/uL Hemoglobin 9.6 L 12.0-16.0 g/dL Hematocrit 30.3 L 36-48 % Mean Corpuscular Volume 79.3 79-99 fL Mean Corpuscular Hemoglobin 25.1 L 27.0-33.0 pg Mean Corpuscular Hemoglobin Concent 31.7 L 32.0-36.0 g/dL Red Cell Distribution Width 21.5 H 11.0-15.5 % Platelet Count 41 L 130-400 K/uL Mean Platelet Volume 7.5-10.5 fL Immature Granulocyte % (Auto) 2.2 H 0-1 % Neutrophils (%) (Auto) 89.0 H 40.0-77.0 % Lymphocytes (%) (Auto) 4.5 L 21.0-51.0 % Monocytes (%) (Auto) 3.5 3.0-13.0 % Eosinophils (%) (Auto) 0.6 0.0-8.0 % Basophils (%) (Auto) 0.2 0.0-5.0 % Neutrophils # (Auto) 9.3 H 1.8-7.7 K/uL Lymphocytes # (Auto) 0.5 L 1.0-4.8 K/uL Monocytes # (Auto) 0.4 0.1-1.0 K/uL Eosinophils # (Auto) 0.06 0.00-0.70 K/uL Basophils # (Auto) 0.02 0.00-0.20 K/uL Absolute Immature Granulocyte (auto 0.23 0-1 K/uL Nucleated Red Blood Cells 0.0 0.0-0.19 % Erythrocyte Sedimentation Rate 60 H 0-30 MM/HR Sodium Level 140 136-145 mmol/L Potassium Level 3.6 3.5-5.1 mmol/L Chloride Level 104 101-111 mmol/L Carbon Dioxide Level 28 21-32 mmol/L Blood Urea Nitrogen 19 H 7-18 mg/dL Creatinine 0.8 0.5-1.0 mg/dL Glomerular Filtration Rate Calc 87 >90 mL/min Random Glucose 243 H 70-105 mg/dL Uric Acid 3.5 2.6-7.2 mg/dL Total Calcium 7.8 L 8.5-10.1 mg/dL Total Bilirubin 2.5 H 0.2-1.0 mg/dL Direct Bilirubin 1.2 H 0.0-0.3 mg/dL Aspartate Amino Transf (AST/SGOT) 112 H 10-37 U/L Alanine Aminotransferase (ALT/SGPT) 87 #H 12-78 U/L Alkaline Phosphatase 286 H 50-136 U/L Ammonia 27 11-32 umol/L B-Type Natriuretic Peptide 22 0-100 pg/mL Total Protein 6.7 6.0-8.3 g/dL Albumin 1.7 L 3.5-5.0 g/dL Vancomycin Level Trough 15.0 # 10.0-20.0 UG/ML Blood Gas Specimen Type Venous Arterial Blood Oxygen Saturation 85.8 L 94.0-98.0 % Venous Blood pH 7.465 H 7.320-7.430 Venous Blood pCO2 at Patient Temp 37 L 38-54 Venous Blood pO2 at Patient Temp 52.9 H 23.0-48.0 mmHg Venous Blood HCO3 26.1 22.0-29.0 Venous Blood Base Excess 2.4 -2.0-3.0 Venous Blood Total Hemoglobin 11.3 L 12.0-16.0 Sodium (Blood Gas) 134 L 136-145 MMOL/L Bedside Potassium (Blood Gas) 3.4 3.4-4.5 MMOL/L Bedside Chloride (Blood Gas) 105 98-107 MMOL/L Bedside Glucose (Blood Gas) 212 H 65-95 MG/DL Bedside Ionized Calcium (Blood Gas) 1.14 L 1.15-1.33 MMOL/L Bedside Lactic Acid (Blood Gas) 1.88 H 0.36-0.75 MMOL/L Blood Gas Temperature 37.0 35.5-37.0 CELSIUS FiO2 21.0 % Blood Gas Specimen Comment VENOUS Test 04/29/25 06:07 Range/Units Prothrombin Time 15.1 H 9.6-11.6 SEC Prothromb Time International Ratio 1.48 H 0.85-1.15 Activated Partial Thromboplast Time 33.4 26.3-35.5 SEC C-Reactive Protein, Quantitative 52.00 H 0.5-3.0 mg/L Procalcitonin 0.94 H 0.05-0.5 ng/mL Hepatitis A IgM Antibody Non-Reactive Nonreactive Hepatitis B Surface Antigen. Non-Reactive Nonreactive Hepatitis B Core IgM Antibody Non-Reactive Negative Hepatitis C Antibody Non-Reactive Nonreactive PATIENT: LUCÍA CATALAN MR#: [id number] : 1970 SEX: F AGE: 54 LOCATION: [facility] ORDER [id number] STATUS: ADM IN REPORT#: [id number] SERVICE 1049 REASON: CHRONIC BACK PAIN ORDERING PHYSICIAN: EDNA SOARES MD PROCEDURE: L SPN WO - MR SPINAL CANAL, LUMBAR WO CON ADDENDUM REPORT ADDENDUM: Results were shared by telephone at 21:25 pm on 04/28/25 and acknowledged by Patient's Nurse Mr.Daniel Ramos. /[place] EXAMINATION: MR LUMBAR SPINE WITHOUT INTRAVENOUS CONTRAST CLINICAL HISTORY: Patient presents with chronic back pain. COMPARISON: Compared to prior CT lumbar spine dated April 23, 2025. TECHNIQUE: Magnetic resonance images of the lumbar spine obtained in multiple planes without intravenous contrast. CONTRAST: None. FINDINGS: VERTEBRAE: The first non???rib-bearing vertebra is designated as the L1 vertebral body. Patchy marrow edema is present within the anterior aspects of the L2 and L3 vertebral bodies. Multilevel small marginal osteophytes are present. No acute fracture or focal osseous lesion. Modic type II changes along adjacent endplates of the L4-L5 intervertebral disc level. Schmorl's node in the lower endplate of L2 vertebra. ALIGNMENT: Bony alignment is anatomic. SPINAL CORD AND CAUDA EQUINA: No abnormal cord signal or mass. Prevertebral soft tissue edema is seen at the L2 and L3 levels. Intramuscular edema is present in the right psoas muscle. FINDINGS BY LEVEL: T12???L1: Diffuse disc bulge with central disc protrusion indenting the anterior thecal sac and bilateral traversing and L1 exiting nerve roots. Bilateral mild to moderate neural foraminal narrowing. Midsagittal AP canal diameter: 13 mm. L1???L2: No central canal or foraminal stenosis. Midsagittal AP canal diameter: 16 mm. L2???L3: Diffuse disc bulge indenting the anterior thecal sac and bilateral traversing and L2 exiting nerve roots. Bilateral moderate neural foraminal narrowing. Intradiscal collection within the L2???L3 disc space. Features concerning for infectious spondylodiscitis centered at the L2???L3 disc and adjacent L2 and L3 vertebral bodies. Midsagittal AP canal diameter: 11 mm. L3???L4: Diffuse disc bulge with ligamentum flavum hypertrophy and facet arthropathy. Indentation of the anterior thecal sac and bilateral traversing and L3 exiting nerve roots. Bilateral moderate to severe neural foraminal narrowing. Midsagittal AP canal diameter: 9.7 mm. L4???L5: Diffuse disc bulge with ligamentum flavum hypertrophy and facet arthropathy. Indentation of the anterior thecal sac and bilateral traversing and L4 exiting nerve roots. Bilateral severe neural foraminal narrowing. Midsagittal AP canal diameter: 9.8 mm. L5???S1: Diffuse disc bulge indenting the anterior thecal sac and bilateral traversing and L5 exiting nerve roots. Bilateral mild to moderate neural foraminal narrowing. Midsagittal AP canal diameter: 12 mm. PARASPINAL SOFT TISSUES: Unremarkable aside from right psoas intramuscular edema. 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 Recommend contrast MRI lumbar spine. Multilevel diffuse disc bulges from T12???L1 through L5???S1 with varying degrees of thecal sac indentation and bilateral traversing and exiting nerve root compression. Severe bilateral neural foraminal narrowing at L4???L5, moderate to severe at L3???L4, and moderate at L2???L3 and L5???S1. Ligamentum flavum hypertrophy and facet arthropathy at L3???L4 and L4???L5 levels. Multilevel disc desiccation and marginal osteophytes consistent with spondylotic changes. Spinal canal stenosis with midsagittal AP diameters of 11 mm or less at L2???L3, L3???L4, and L4???L5. /[place] DICTATED BY: BROOKLYN LOPEZ Jr., MD DATE: 04/28/252130 ASSESSMENT: Methicillin-resistant Staphylococcus aureus bacteremia. Urinary tract infection with methicillin-resistant Staphylococcus aureus. L2 and L3 intervertebral disc osteomyelitis. Right Hydronephrosis, status post right nephrostomy tube placement. Non-ketotic hyperglycemia. Urinary retention requiring Nolasco catheter placement. Morbid obesity. Thrombocytopenia. Diabetes mellitus. PLAN: Continue vancomycin per pharmacy protocol. Continue pain management. Continue antidiabetic. Continue GI prophylaxis. We will monitor electrolytes. Neurosurgeon has evaluated patient. Patient will need 6 weeks of IV antibiotics. Cardiology has been consulted for a possible RAMAN. This case was reviewed and discussed with my supervising physician and the above assessment and plan was formulated and agreed upon. ATTESTATION BY PHYSICIAN I have seen and examined the patient. I reviewed the documentation, medical decision making, and treatment plan as noted by the mid-level provider above. I agree with the findings and plan of care. EDNA SOARES MD, [facility] Apr 30, 2025 21:48
[2025-04-30] MEDS: HYDROcodone/APAP 5/325 1 TAB TABLET PO PRN (22:07)
--- NOTE | 2025-04-30 22:20 | PN ---
GASTROENTEROLOGY PROGRESS NOTE Date of Visit: Apr 30, 2025 Time of Visit: 22:20 Events / Notes: [ ] Review of Systems: CONSTITUTIONAL: No malaise or change in sensation of wellbeing. ENMT: No rhinorrhea, otorrhea, sinus pain, ear ache. CARDIOVASCULAR: No angina, palpitations, orthopnea or paroxysmal dyspnea. RESPIRATORY: No SOB. GASTROINTESTINAL: No abdominal pain, nausea, vomiting, diarrhea, hematemesis, melena or change in the patient's habitual bowel movements consistency/number. GENITOURINARY: No dysuria, hematuria or change in bladder continence. MUSCULOSKELETAL: No new muscle pain or decrease in muscular strength. No new joint swelling, redness or tenderness. SKIN: No new rash. Physical Exam: GEN: Awake, alert, oriented in person, time and place, and in no acute distress. HEENT: No sinus tenderness. Tympanic membranes were not examined. No rhinorrhea. Oral pharyngeal mucosa is pink, moist and within normal limits. Neck is supple with no cervical lymphadenopathy, thyromegaly or JVD. CHEST: Inspection, palpation and percussion of the chest were unremarkable. Lung auscultation revealed normal breath sounds bilaterally. CARDIAC: PMI is within normal limits. Heart sounds are regular. Normal S1, S2. No gallop or murmur. ABD: Soft, non-tender and not distended. No peritoneal signs on palpation. No organomegaly. Normal bowel sounds. EXT: No cyanosis or clubbing. No edema. SKIN: Intact. No rashes. JOINTS: No evidence of synovitis or acute arthritis. NEURO: Alert and oriented to name, place and person. Cranial nerve examination is unremarkable. No focal motor deficits. Normal speech. Gait is normal. Strength is normal. Vital Signs (last 8hr) Date Time Temp Pulse Resp B/P (MAP) Pulse Ox O2 Delivery O2 Flow Rate FiO2 04/30/25 20:00 98.1 77 24 138/80 93 Room Air 04/30/25 19:33 86 18 N/A Room Air 21 04/30/25 19:15 93 Room Air* 0 21 04/30/25 16:00 97.5 84 22 149/67 89 Room Air 21 Laboratory: [ ] Laboratory: Test 04/30/25 19:37 04/30/25 15:50 04/30/25 05:57 7/8/25 19:00 Range/Units Whole Blood Glucose 130 H 70-110 MG/DL Bedside Glucose Comment Notified Nurse White Blood Count 10.5 4.8-10.8 K/uL Red Blood Count 3.82 L 4.00-5.50 MIL/uL Hemoglobin 9.6 L 12.0-16.0 g/dL Hematocrit 30.3 L 36-48 % Mean Corpuscular Volume 79.3 79-99 fL Mean Corpuscular Hemoglobin 25.1 L 27.0-33.0 pg Mean Corpuscular Hemoglobin Concent 31.7 L 32.0-36.0 g/dL Red Cell Distribution Width 21.5 H 11.0-15.5 % Platelet Count 41 L 130-400 K/uL Mean Platelet Volume 7.5-10.5 fL Immature Granulocyte % (Auto) 2.2 H 0-1 % Neutrophils (%) (Auto) 89.0 H 40.0-77.0 % Lymphocytes (%) (Auto) 4.5 L 21.0-51.0 % Monocytes (%) (Auto) 3.5 3.0-13.0 % Eosinophils (%) (Auto) 0.6 0.0-8.0 % Basophils (%) (Auto) 0.2 0.0-5.0 % Neutrophils # (Auto) 9.3 H 1.8-7.7 K/uL Lymphocytes # (Auto) 0.5 L 1.0-4.8 K/uL Monocytes # (Auto) 0.4 0.1-1.0 K/uL Eosinophils # (Auto) 0.06 0.00-0.70 K/uL Basophils # (Auto) 0.02 0.00-0.20 K/uL Absolute Immature Granulocyte (auto 0.23 0-1 K/uL Nucleated Red Blood Cells 0.0 0.0-0.19 % Erythrocyte Sedimentation Rate 60 H 0-30 MM/HR Sodium Level 140 136-145 mmol/L Potassium Level 3.6 3.5-5.1 mmol/L Chloride Level 104 101-111 mmol/L Carbon Dioxide Level 28 21-32 mmol/L Blood Urea Nitrogen 19 H 7-18 mg/dL Creatinine 0.8 0.5-1.0 mg/dL Glomerular Filtration Rate Calc 87 >90 mL/min Random Glucose 243 H 70-105 mg/dL Uric Acid 3.5 2.6-7.2 mg/dL Total Calcium 7.8 L 8.5-10.1 mg/dL Total Bilirubin 2.5 H 0.2-1.0 mg/dL Direct Bilirubin 1.2 H 0.0-0.3 mg/dL Aspartate Amino Transf (AST/SGOT) 112 H 10-37 U/L Alanine Aminotransferase (ALT/SGPT) 87 #H 12-78 U/L Alkaline Phosphatase 286 H 50-136 U/L Ammonia 27 11-32 umol/L B-Type Natriuretic Peptide 22 0-100 pg/mL Total Protein 6.7 6.0-8.3 g/dL Albumin 1.7 L 3.5-5.0 g/dL Vancomycin Level Trough 15.0 # 10.0-20.0 UG/ML Blood Gas Specimen Type Venous Arterial Blood Oxygen Saturation 85.8 L 94.0-98.0 % Venous Blood pH 7.465 H 7.320-7.430 Venous Blood pCO2 at Patient Temp 37 L 38-54 Venous Blood pO2 at Patient Temp 52.9 H 23.0-48.0 mmHg Venous Blood HCO3 26.1 22.0-29.0 Venous Blood Base Excess 2.4 -2.0-3.0 Venous Blood Total Hemoglobin 11.3 L 12.0-16.0 Sodium (Blood Gas) 134 L 136-145 MMOL/L Bedside Potassium (Blood Gas) 3.4 3.4-4.5 MMOL/L Bedside Chloride (Blood Gas) 105 98-107 MMOL/L Bedside Glucose (Blood Gas) 212 H 65-95 MG/DL Bedside Ionized Calcium (Blood Gas) 1.14 L 1.15-1.33 MMOL/L Bedside Lactic Acid (Blood Gas) 1.88 H 0.36-0.75 MMOL/L Blood Gas Temperature 37.0 35.5-37.0 CELSIUS FiO2 21.0 % Blood Gas Specimen Comment VENOUS Test 04/29/25 06:07 Range/Units Prothrombin Time 15.1 H 9.6-11.6 SEC Prothromb Time International Ratio 1.48 H 0.85-1.15 Activated Partial Thromboplast Time 33.4 26.3-35.5 SEC C-Reactive Protein, Quantitative 52.00 H 0.5-3.0 mg/L Procalcitonin 0.94 H 0.05-0.5 ng/mL Hepatitis A IgM Antibody Non-Reactive Nonreactive Hepatitis B Surface Antigen. Non-Reactive Nonreactive Hepatitis B Core IgM Antibody Non-Reactive Negative Hepatitis C Antibody Non-Reactive Nonreactive Current Medications Medications (Trade) Dose Ordered Sig/Roberth Route PRN Reason Start Time Stop Time Status Last Admin Dose Admin Acetaminophen (TYLenol 325MG TAB) 650 mg Q4H PRN PO MILD PAIN (1-3) 04/22/25 20:00 05/22/25 19:59 04/30/25 06:17 650 MG Acetaminophen (TYLenol 325MG TAB) 650 mg Q6H PRN PO TEMPERATURE GREATER THAN 101.5 04/22/25 20:00 05/22/25 19:59 04/23/25 10:02 650 MG Acetaminophen/ Hydrocodone Bitart (NORco 5/325MG) 1 tab Q4H PRN PO MODERATE PAIN (4-6) 04/30/25 12:00 05/05/25 11:59 04/30/25 22:07 1 TAB Atorvastatin Calcium (LIPItor 20MG) 20 mg HS PO 04/24/25 21:00 05/24/25 20:59 04/30/25 20:39 20 MG Ceftriaxone Sodium 1 gm/ Sodium Chloride 50 ml @ 100 mls/hr BID IV 04/22/25 21:00 04/22/25 19:59 DC Ceftriaxone Sodium (ROCEphine 1G INJ) 1 gm BID IVPB 04/22/25 21:00 04/22/25 20:44 DC Ceftriaxone Sodium (ROCEphine 1G INJ) 1 gm BID IVPB 04/23/25 09:00 04/25/25 12:36 DC 04/25/25 09:44 1 GM Dexmedetomidine/ Sodium Chloride (PRECEdex 200MCG/ 50ML-NS) 200 mcg PROTOCOL IV 04/26/25 12:00 04/26/25 14:54 DC Dexmedetomidine/ Sodium Chloride (PRECEdex 400MCG/ 100ML-NS) 400 mcg PROTOCOL PRN IV ANXIETY/AGITATION 04/26/25 19:30 05/26/25 19:29 04/27/25 23:31 400 MCG Dexmedetomidine/ Sodium Chloride (PRECEdex 400MCG/ 100ML-NS) 400 mcg PROTOCOL STAT IV 04/26/25 14:53 04/26/25 14:58 DC 04/26/25 15:18 400 MCG Dextrose 1,000 ml @ 75 mls/hr [id number] IV 04/26/25 12:00 04/30/25 09:36 DC 04/29/25 04:27 150 MLS/HR Dextrose (D50w) 50 ml AD PRN IV HYPOGLYCEMIA PROTOCOL 04/22/25 20:00 05/22/25 19:59 Famotidine (Pepcid 20mg Tab) 20 mg DAILY PO 04/23/25 09:00 04/24/25 09:48 DC 04/23/25 09:33 20 MG Gabapentin (NEURontin 300 MG CAP) 300 mg BID PO 04/24/25 21:00 04/28/25 09:10 DC 04/25/25 21:51 300 MG Glucagon (Glucagon 1mg Kit) 1 mg AD PRN IM HYPOGLYCEMIA PROTOCOL 04/22/25 20:00 05/22/25 19:59 Heparin Sodium (Porcine) (HEParin 5,000 UNIT VIAL) 5,000 unit Q8H SQ 04/25/25 09:00 04/25/25 08:40 DC Hydromorphone HCl (DiLAUDid 0.5MG INJ) 0.5 mg BIDPRN PRN IVP SEVERE PAIN (7-10) 04/25/25 19:00 04/30/25 11:59 DC 04/29/25 23:31 0.5 MG Hydromorphone HCl (DiLAUDid 0.5MG INJ) 0.5 mg Q6H PRN IVP SEVERE PAIN (7-10) 04/23/25 14:00 04/25/25 08:25 DC 04/25/25 04:14 0.5 MG Hydromorphone HCl (DiLAUDid 1MG INJ) 1 mg TIDP PRN IVP SEVERE PAIN (7-10) 04/30/25 13:00 05/05/25 12:59 04/30/25 20:44 1 MG Immune Globulin 400 ml @ 0 mls/hr Q24H IV 05/01/25 14:00 05/03/25 14:01 Insulin Glargine (LANtus 100 UNITS/ML 10 ML VIAL) 10 units HS SQ 04/24/25 21:00 04/24/25 16:57 DC Insulin Glargine (LANtus 100 UNITS/ML 10 ML VIAL) 10 units ONCE STAT SQ 04/24/25 10:54 04/24/25 11:00 DC 04/24/25 11:19 10 UNITS Insulin Glargine (LANtus 100 UNITS/ML 10 ML VIAL) 15 units HS SQ 04/24/25 21:00 04/24/25 17:06 DC Insulin Glargine (LANtus 100 UNITS/ML 10 ML VIAL) 30 units ONCE SQ 04/24/25 17:00 04/25/25 06:19 DC 04/24/25 18:16 30 UNITS Insulin Glargine (LANtus 100 UNITS/ML 10 ML VIAL) 40 units DAILY SQ 04/29/25 09:00 04/30/25 07:31 DC Insulin Glargine (LANtus 100 UNITS/ML 10 ML VIAL) 50 units DAILY SQ 04/26/25 09:00 04/29/25 06:49 DC 04/28/25 08:46 50 UNITS Insulin Glargine (LANtus 100 UNITS/ML 10 ML VIAL) 50 units DAILY SQ 04/30/25 09:00 05/30/25 08:59 04/30/25 09:30 50 UNITS Insulin Human Regular (humuLIN R 100 UNIT/ML 3ML) 5 unit TIDAC SQ 04/24/25 17:00 04/24/25 17:06 DC Insulin Human Regular (humuLIN R 100 UNIT/ML 3ML) 8 unit TIDAC SQ 04/28/25 07:30 04/30/25 07:31 DC 04/30/25 06:15 8 UNIT Insulin Human Regular (humuLIN R 100 UNIT/ML 3ML) 10 unit TIDAC SQ 04/24/25 17:00 04/25/25 06:17 DC 04/25/25 06:15 10 UNIT Insulin Human Regular (humuLIN R 100 UNIT/ML 3ML) 12 unit TIDAC SQ 04/30/25 07:30 05/30/25 07:29 04/30/25 12:53 12 UNIT Insulin Human Regular (humuLIN R 100 UNIT/ML 3ML) 15 unit TIDAC SQ 04/26/25 11:30 04/27/25 20:30 DC Insulin Human Regular (humuLIN R 100 UNIT/ML 3ML) 25 unit TIDAC SQ 04/25/25 07:30 04/26/25 07:58 DC 04/25/25 17:39 25 UNIT Insulin Human Regular (humuLIN R 100 UNIT/ML 3ML) INSULIN SLIDING SCAL... ACHS SQ 04/22/25 21:00 04/24/25 16:16 DC 04/24/25 11:18 8 UNIT Insulin Human Regular (humuLIN R 100 UNIT/ML 3ML) INSULIN SLIDING SCAL... ACHS SQ 04/24/25 16:30 04/25/25 14:09 DC 04/25/25 11:57 16 UNIT Insulin Human Regular (humuLIN R 100 UNIT/ML 3ML) INSULIN SLIDING SCAL... ACHS SQ 04/25/25 16:30 05/25/25 16:29 04/30/25 12:51 6 UNIT Insulin Human Regular (humuLIN R 100 UNIT/ML 3ML) INSULIN SLIDING SCAL... Q4H SQ 04/27/25 20:30 04/28/25 09:11 DC 04/28/25 06:00 4 UNIT Lactated Ringer's 1,000 ml @ 100 mls/hr Q10H IV 04/22/25 20:00 04/23/25 10:09 DC 04/23/25 06:00 100 MLS/HR Lactulose (Constulose 20gm/ 30ml Udcup) 30 gm TID PO 04/25/25 11:00 04/30/25 09:45 DC 04/30/25 09:16 30 GM Levothyroxine Sodium (SYNTHroid 125MCG TAB) 125 mcg DAILY@0630 PO 04/25/25 06:30 05/25/25 06:29 04/30/25 06:11 125 MCG Magnesium Sulfate 50 ml @ 0 mls/hr PROTOCOL PRN IV OTHER [SEE ORDER COMMENTS] 04/22/25 20:00 05/22/25 19:59 Methylprednisolone Sodium Succinate (Solu-medROL 125MG) 125 mg Q6H IVP 04/23/25 08:00 04/28/25 09:10 DC 04/25/25 09:45 125 MG Metoprolol Succinate (TopROL XL) 50 mg AM PO 04/25/25 09:00 05/25/25 08:59 04/30/25 09:16 50 MG Ondansetron HCl (zoFRAN 4MG INJ) 4 mg Q6H PRN IV NAUSEA/VOMITING 04/22/25 20:00 05/22/25 19:59 04/22/25 20:10 4 MG Pantoprazole Sodium (PROTonix 40MG INJ) 40 mg DAILY IVP 04/24/25 10:00 05/24/25 09:59 04/30/25 09:15 40 MG Pharmacy Profile Note (Pharmacy Communication) 1 each ONCE MISC 05/01/25 08:00 04/30/25 16:52 DC Potassium Chloride 100 ml @ 100 mls/hr AD PRN IV POTASSIUM PROTOCOL 04/22/25 20:00 05/22/25 19:59 Potassium Chloride (K-Dur/Klor-Con 20meq) 20 meq AD PRN PO POTASSIUM PROTOCOL 04/22/25 20:00 05/22/25 19:59 Potassium Chloride (KCl 10% Elixir 20meq/15ml) 20 meq AD PRN PO POTASSIUM PROTOCOL 04/22/25 20:00 05/22/25 19:59 Pramipexole Dihydrochloride (miraPEX 0.25MG TAB) 0.5 mg HS PO 04/24/25 21:00 05/24/25 20:59 04/30/25 20:39 0.5 MG Pregabalin ([id number]) 75 mg BID PO 04/24/25 21:00 04/24/25 14:49 DC Sodium Chloride 500 ml @ 0 mls/hr Q0M IV 04/25/25 11:00 05/25/25 10:59 Sodium Zirconium Cyclosilicate (Lokelma 10gm Powder) 10 gm TID PO 04/23/25 21:00 04/23/25 14:11 DC Tramadol HCl (UltRAM) 50 mg Q6H PRN PO MODERATE PAIN (4-6) 04/24/25 22:30 04/29/25 22:29 DC 04/28/25 13:55 50 MG Trimethoprim/ Sulfamethoxazole (BactRIM DS) 1 tab BID PO 04/25/25 21:00 04/26/25 14:50 DC 04/25/25 21:51 1 TAB Vancomycin HCl 250 ml @ 125 mls/hr Q12H IV 04/24/25 23:00 04/25/25 12:36 DC 04/25/25 11:43 125 MLS/HR Vancomycin HCl 250 ml @ 125 mls/hr Q12H IV 04/26/25 15:30 04/28/25 03:13 DC 04/27/25 15:22 125 MLS/HR Vancomycin HCl 250 ml @ 125 mls/hr Q12H IV 04/28/25 15:30 04/28/25 18:53 DC Vancomycin HCl 250 ml @ 125 mls/hr Q12H IV 04/28/25 20:00 05/08/25 19:59 04/30/25 20:39 125 MLS/HR Vancomycin HCl (Vancomycin Protocol) 1 each AD IV 04/24/25 10:30 04/25/25 12:36 DC Vancomycin HCl (Vancomycin Protocol) 1 each AD IV 04/26/25 15:00 05/10/25 14:59 Venlafaxine HCl (EffEXOR XR 37.5mg CAP) 37.5 mg DAILY PO 04/24/25 16:00 05/24/25 15:59 04/30/25 09:16 37.5 MG Venlafaxine HCl (EffEXOR XR 37.5mg CAP) 37.5 mg DAILY PO 04/25/25 09:00 04/24/25 14:50 DC Diagnostics / Radiology: [COPY/PASTE HERE IF NO REPORTS PLEASE DELETE SECTION] Assessment: Decompensated cirrhosis HTN Esophageal varies Plan: Patient with known cirrhosis however lost to follow-up. Hold off on EGD given no overt GI bleeding and stable hemoglobin We will monitor closely BEHZAD KOCH [employer]ER Apr 30, 2025 22:20
[2025-05-01] VITALS (16 sets, daily range): BP systolic 129–163; BP diastolic 59–85; PULSE 62–77; RESP 16–21; TEMP 97.4–98.3; O2SAT 94–96
[2025-05-01 06:18] LABS: IMMATURE GRANULOCYTE ABSOLUTE 0.15 K/uL (0-1); NUCLEATED RED BLOOD CELLS 0.0 % (0.0-0.19); PLATELET COUNT (AUTO) 44 K/uL (130-400); RED BLOOD CELL COUNT(AUTO) 3.92 MIL/uL (4.00-5.50); RED CELL DISTRIBUTION WIDTH 22.0 % (11.0-15.5); WHITE BLOOD COUNT (AUTO) 11.6 K/uL (4.8-10.8)
[2025-05-01 06:31] LABS: ASPARTATE AMINOTRANSFERASE 91.0 U/L (10-37); CREATININE 1.0 mg/dL (0.5-1.0); GLOMERULAR FILTR. RATE CALC 67.0 mL/min (>90); GLUCOSE,RANDOM 167.0 mg/dL (70-105); SODIUM SERUM 139.0 mmol/L (136-145); TOTAL PROTEIN, SERUM 7.4 g/dL (6.0-8.3); UREA NITROGEN, BLOOD 28.0 mg/dL (7-18)
[2025-05-01] MEDS ORDERED: PHARMACY COMMUNICATION MISC SCH (08:00)
--- NOTE | 2025-05-01 08:27 | PN ---
LOCATION: [facility]. SUBJECTIVE: I have ordered IgG on the patient. She has a staph infection, scanning antibiotics. They ordered RAMAN, but it has been held due to the low platelets. She will need 6 weeks of IV antibiotics. PHYSICAL EXAMINATION: VITAL SIGNS: Blood pressure 158/60, pulse 59, respirations 20. CHEST: Clear. HEART: Regular rate and rhythm. ABDOMEN: Soft. EXTREMITIES: Show edema. NEUROLOGIC: Alert and oriented. LABORATORY DATA: Lab reviewed. IMPRESSION: * MRSA. * Staph bacteremia. * UTI. * Infectious diskitis. * Right hydronephrosis. * ITP. * Lupus. * Diabetes. * Chronic pain. * Cirrhosis of the liver. PLAN: Continuing 6 weeks of antibiotics. I proceed with an IgG with daily platelet counts. She is overall feeling better. TID: [id number] RECEIPT: [id number]
[2025-05-01 08:32] LABS: ABG BASE EXCESS -0.8 mmol/L (-2.0-3.0); ABG HCO3 24.6 mmol/L (21.0-28.0); ABG OXYGEN SATURATION 93.8 % (94.0-98.0); ABG PCO2 43 mmHg (32-45); ABG PH 7.371 (7.350-7.450); DEVICE COMMENT LR NATHAN, RN; PO2, ARTERIAL BG 70.6 mmHg (83.0-108.0); TEMPERATURE, CELSIUS BG 37.0 CELSIUS (35.5-37.0); VENT MODE, BG RA (ROOM AIR)
--- NOTE | 2025-05-01 09:34 | PN ---
FOLLOWUP PROGRESS NOTE SUBJECTIVE: A 54-year-old female with a history of systemic lupus erythematosus. The patient with history of persistent thrombocytopenia. She has had acute renal failure in the hospital. Creatinine has actually improved. The patient with evidence of gram-positive bacteremia and the patient remains on the antibiotics. The patient is being seen by case management for outpatient long-term IV antibiotics and the patient is being seen as a followup visit for all of the above. REVIEW OF SYSTEMS: CONSTITUTIONAL: She is feeling weak and tired. HEENT: No change in vision. No change in hearing. CARDIOVASCULAR: There is no current chest pain or palpitations. PULMONARY: She denies any shortness of breath. GASTROINTESTINAL: The patient is tolerating a diet. MUSCULOSKELETAL: Complaints of weakness. PHYSICAL EXAMINATION: VITAL SIGNS: Blood pressure is 157/76, pulse in the 70s, afebrile. GENERAL: Chronically ill female, much older than appearing. HEENT: Head is atraumatic. Pupils equal, roving to light. Oropharynx is without exudate. Nares clear. NECK: There is no JVP. There is no thyromegaly. No masses. CARDIOVASCULAR: Regular. There is no S3 or S4 gallop. LUNGS: Coarse with equal thoracic movement. ABDOMEN: Soft, nondistended, nontender. EXTREMITIES: No clubbing, no cyanosis. NEUROLOGICAL: She is awake. She is alert. LABORATORY DATA: Sodium 139, potassium 4, BUN 28, creatinine 1. Hemoglobin 9.8, hematocrit 32, white count 11,000. IMPRESSION: * Bacteremia osteomyelitis. * Acute renal failure. * Diabetes mellitus. * Hypertension. * History of lupus. PLAN: The patient with persistent bacteremia, workup consistent with osteomyelitis. She remains on the IV antibiotics. The patient is being seen by case management in regard to final disposition. We will continue to follow closely. Blood pressure is under adequate control. The patient and family at bedside and multiple questions were answered. TID: [id number] RECEIPT: [id number]
--- NOTE | 2025-05-01 10:39 | PN ---
GASTROENTEROLOGY PROGRESS NOTE Date of Visit: May 01, 2025 Time of Visit: 10:39 Events / Notes: [ ] Review of Systems: CONSTITUTIONAL: No malaise or change in sensation of wellbeing. ENMT: No rhinorrhea, otorrhea, sinus pain, ear ache. CARDIOVASCULAR: No angina, palpitations, orthopnea or paroxysmal dyspnea. RESPIRATORY: No SOB. GASTROINTESTINAL: No abdominal pain, nausea, vomiting, diarrhea, hematemesis, melena or change in the patient's habitual bowel movements consistency/number. GENITOURINARY: No dysuria, hematuria or change in bladder continence. MUSCULOSKELETAL: No new muscle pain or decrease in muscular strength. No new joint swelling, redness or tenderness. SKIN: No new rash. Physical Exam: GEN: Awake, alert, oriented in person, time and place, and in no acute distress. HEENT: No sinus tenderness. Tympanic membranes were not examined. No rhinorrhea. Oral pharyngeal mucosa is pink, moist and within normal limits. Neck is supple with no cervical lymphadenopathy, thyromegaly or JVD. CHEST: Inspection, palpation and percussion of the chest were unremarkable. Lung auscultation revealed normal breath sounds bilaterally. CARDIAC: PMI is within normal limits. Heart sounds are regular. Normal S1, S2. No gallop or murmur. ABD: Soft, non-tender and not distended. No peritoneal signs on palpation. No organomegaly. Normal bowel sounds. EXT: No cyanosis or clubbing. No edema. SKIN: Intact. No rashes. JOINTS: No evidence of synovitis or acute arthritis. NEURO: Alert and oriented to name, place and person. Cranial nerve examination is unremarkable. No focal motor deficits. Normal speech. Gait is normal. Strength is normal. Vital Signs (last 8hr) Date Time Temp Pulse Resp B/P (MAP) Pulse Ox O2 Delivery O2 Flow Rate FiO2 05/01/25 08:00 97.5 72 21 157/76 96 Room Air 21 05/01/25 07:22 77 18 N/A Room Air 05/01/25 04:00 98.2 69 16 158/80 97 Room Air Laboratory: [ ] Laboratory: Test 05/01/25 08:30 05/01/25 05:30 05/01/25 05:07 04/30/25 15:50 Range/Units Blood Gas Specimen Type Arterial Arterial Blood pH 7.371 7.350-7.450 Arterial Blood Partial Pressure CO2 43 32-45 mmHg Arterial Blood Partial Pressure O2 70.6 L 83.0-108.0 mmHg Arterial Blood HCO3 24.6 21.0-28.0 mmol/L Arterial Blood Oxygen Saturation 93.8 L 94.0-98.0 % Arterial Blood Base Excess -0.8 -2.0-3.0 mmol/L Blood Gas Temperature 37.0 35.5-37.0 CELSIUS Blood Gas Vent Mode RA ROOM AIR FiO2 21.0 % Blood Gas Specimen Comment LR REBECCA, MAYUR White Blood Count 11.6 H 4.8-10.8 K/uL Red Blood Count 3.92 L 4.00-5.50 MIL/uL Hemoglobin 9.8 L 12.0-16.0 g/dL Hematocrit 32.2 L 36-48 % Mean Corpuscular Volume 82.1 79-99 fL Mean Corpuscular Hemoglobin 25.0 L 27.0-33.0 pg Mean Corpuscular Hemoglobin Concent 30.4 L 32.0-36.0 g/dL Red Cell Distribution Width 22.0 H 11.0-15.5 % Platelet Count 44 L 130-400 K/uL Mean Platelet Volume 7.5-10.5 fL Immature Granulocyte % (Auto) 1.3 H 0-1 % Neutrophils (%) (Auto) 89.4 H 40.0-77.0 % Lymphocytes (%) (Auto) 4.2 L 21.0-51.0 % Monocytes (%) (Auto) 4.7 3.0-13.0 % Eosinophils (%) (Auto) 0.2 0.0-8.0 % Basophils (%) (Auto) 0.2 0.0-5.0 % Neutrophils # (Auto) 10.4 H 1.8-7.7 K/uL Lymphocytes # (Auto) 0.5 L 1.0-4.8 K/uL Monocytes # (Auto) 0.5 0.1-1.0 K/uL Eosinophils # (Auto) 0.02 0.00-0.70 K/uL Basophils # (Auto) 0.02 0.00-0.20 K/uL Absolute Immature Granulocyte (auto 0.15 0-1 K/uL Nucleated Red Blood Cells 0.0 0.0-0.19 % Sodium Level 139 136-145 mmol/L Potassium Level 4.0 3.5-5.1 mmol/L Chloride Level 104 101-111 mmol/L Carbon Dioxide Level 28 21-32 mmol/L Blood Urea Nitrogen 28 H 7-18 mg/dL Creatinine 1.0 0.5-1.0 mg/dL Glomerular Filtration Rate Calc 67 >90 mL/min Random Glucose 167 H 70-105 mg/dL Total Calcium 8.1 L 8.5-10.1 mg/dL Total Bilirubin 2.8 H 0.2-1.0 mg/dL Aspartate Amino Transf (AST/SGOT) 91 H 10-37 U/L Alanine Aminotransferase (ALT/SGPT) 80 H 12-78 U/L Alkaline Phosphatase 281 H 50-136 U/L Ammonia 25 11-32 umol/L C-Reactive Protein, Quantitative 105.50 H 0.5-3.0 mg/L Total Protein 7.4 6.0-8.3 g/dL Albumin 1.8 L 3.5-5.0 g/dL Whole Blood Glucose 134 H 70-110 MG/DL Bedside Glucose Comment Notified Nurse Test 04/30/25 05:57 04/29/25 19:00 Range/Units Erythrocyte Sedimentation Rate 60 H 0-30 MM/HR Uric Acid 3.5 2.6-7.2 mg/dL Direct Bilirubin 1.2 H 0.0-0.3 mg/dL B-Type Natriuretic Peptide 22 0-100 pg/mL Vancomycin Level Trough 15.0 # 10.0-20.0 UG/ML Venous Blood pH 7.465 H 7.320-7.430 Venous Blood pCO2 at Patient Temp 37 L 38-54 Venous Blood pO2 at Patient Temp 52.9 H 23.0-48.0 mmHg Venous Blood HCO3 26.1 22.0-29.0 Venous Blood Base Excess 2.4 -2.0-3.0 Venous Blood Total Hemoglobin 11.3 L 12.0-16.0 Sodium (Blood Gas) 134 L 136-145 MMOL/L Bedside Potassium (Blood Gas) 3.4 3.4-4.5 MMOL/L Bedside Chloride (Blood Gas) 105 98-107 MMOL/L Bedside Glucose (Blood Gas) 212 H 65-95 MG/DL Bedside Ionized Calcium (Blood Gas) 1.14 L 1.15-1.33 MMOL/L Bedside Lactic Acid (Blood Gas) 1.88 H 0.36-0.75 MMOL/L Current Medications Medications (Trade) Dose Ordered Sig/Roberth Route PRN Reason Start Time Stop Time Status Last Admin Dose Admin Acetaminophen (TYLenol 325MG TAB) 650 mg Q4H PRN PO MILD PAIN (1-3) 04/22/25 20:00 05/22/25 19:59 04/30/25 06:17 650 MG Acetaminophen (TYLenol 325MG TAB) 650 mg Q6H PRN PO TEMPERATURE GREATER THAN 101.5 04/22/25 20:00 05/22/25 19:59 04/23/25 10:02 650 MG Acetaminophen/ Hydrocodone Bitart (NORco 5/325MG) 1 tab Q4H PRN PO MODERATE PAIN (4-6) 04/30/25 12:00 05/05/25 11:59 04/30/25 22:07 1 TAB Atorvastatin Calcium (LIPItor 20MG) 20 mg HS PO 04/24/25 21:00 05/24/25 20:59 04/30/25 20:39 20 MG Ceftriaxone Sodium 1 gm/ Sodium Chloride 50 ml @ 100 mls/hr BID IV 04/22/25 21:00 04/22/25 19:59 DC Ceftriaxone Sodium (ROCEphine 1G INJ) 1 gm BID IVPB 04/22/25 21:00 04/22/25 20:44 DC Ceftriaxone Sodium (ROCEphine 1G INJ) 1 gm BID IVPB 04/23/25 09:00 04/25/25 12:36 DC 04/25/25 09:44 1 GM Dexmedetomidine/ Sodium Chloride (PRECEdex 200MCG/ 50ML-NS) 200 mcg PROTOCOL IV 04/26/25 12:00 04/26/25 14:54 DC Dexmedetomidine/ Sodium Chloride (PRECEdex 400MCG/ 100ML-NS) 400 mcg PROTOCOL PRN IV ANXIETY/AGITATION 04/26/25 19:30 05/26/25 19:29 04/27/25 23:31 400 MCG Dexmedetomidine/ Sodium Chloride (PRECEdex 400MCG/ 100ML-NS) 400 mcg PROTOCOL STAT IV 04/26/25 14:53 04/26/25 14:58 DC 04/26/25 15:18 400 MCG Dextrose 1,000 ml @ 75 mls/hr [id number] IV 04/26/25 12:00 04/30/25 09:36 DC 04/29/25 04:27 150 MLS/HR Dextrose (D50w) 50 ml AD PRN IV HYPOGLYCEMIA PROTOCOL 04/22/25 20:00 05/22/25 19:59 Famotidine (Pepcid 20mg Tab) 20 mg DAILY PO 04/23/25 09:00 04/24/25 09:48 DC 04/23/25 09:33 20 MG Gabapentin (NEURontin 300 MG CAP) 300 mg BID PO 04/24/25 21:00 04/28/25 09:10 DC 04/25/25 21:51 300 MG Glucagon (Glucagon 1mg Kit) 1 mg AD PRN IM HYPOGLYCEMIA PROTOCOL 04/22/25 20:00 05/22/25 19:59 Heparin Sodium (Porcine) (HEParin 5,000 UNIT VIAL) 5,000 unit Q8H SQ 04/25/25 09:00 04/25/25 08:40 DC Hydromorphone HCl (DiLAUDid 0.5MG INJ) 0.5 mg BIDPRN PRN IVP SEVERE PAIN (7-10) 04/25/25 19:00 04/30/25 11:59 DC 04/29/25 23:31 0.5 MG Hydromorphone HCl (DiLAUDid 0.5MG INJ) 0.5 mg Q6H PRN IVP SEVERE PAIN (7-10) 04/23/25 14:00 04/25/25 08:25 DC 04/25/25 04:14 0.5 MG Hydromorphone HCl (DiLAUDid 1MG INJ) 1 mg TIDP PRN IVP SEVERE PAIN (7-10) 04/30/25 13:00 05/05/25 12:59 04/30/25 20:44 1 MG Immune Globulin 400 ml @ 0 mls/hr Q24H IV 05/01/25 14:00 05/03/25 14:01 Insulin Glargine (LANtus 100 UNITS/ML 10 ML VIAL) 10 units HS SQ 04/24/25 21:00 04/24/25 16:57 DC Insulin Glargine (LANtus 100 UNITS/ML 10 ML VIAL) 10 units ONCE STAT SQ 04/24/25 10:54 04/24/25 11:00 DC 04/24/25 11:19 10 UNITS Insulin Glargine (LANtus 100 UNITS/ML 10 ML VIAL) 15 units HS SQ 04/24/25 21:00 04/24/25 17:06 DC Insulin Glargine (LANtus 100 UNITS/ML 10 ML VIAL) 30 units ONCE SQ 04/24/25 17:00 04/25/25 06:19 DC 04/24/25 18:16 30 UNITS Insulin Glargine (LANtus 100 UNITS/ML 10 ML VIAL) 40 units DAILY SQ 04/29/25 09:00 04/30/25 07:31 DC Insulin Glargine (LANtus 100 UNITS/ML 10 ML VIAL) 50 units DAILY SQ 04/26/25 09:00 04/29/25 06:49 DC 04/28/25 08:46 50 UNITS Insulin Glargine (LANtus 100 UNITS/ML 10 ML VIAL) 50 units DAILY SQ 04/30/25 09:00 05/30/25 08:59 05/01/25 10:00 50 UNITS Insulin Human Regular (humuLIN R 100 UNIT/ML 3ML) 5 unit TIDAC SQ 04/24/25 17:00 04/24/25 17:06 DC Insulin Human Regular (humuLIN R 100 UNIT/ML 3ML) 8 unit TIDAC SQ 04/28/25 07:30 04/30/25 07:31 DC 04/30/25 06:15 8 UNIT Insulin Human Regular (humuLIN R 100 UNIT/ML 3ML) 10 unit TIDAC SQ 04/24/25 17:00 04/25/25 06:17 DC 04/25/25 06:15 10 UNIT Insulin Human Regular (humuLIN R 100 UNIT/ML 3ML) 12 unit TIDAC SQ 04/30/25 07:30 05/30/25 07:29 05/01/25 06:37 12 UNIT Insulin Human Regular (humuLIN R 100 UNIT/ML 3ML) 15 unit TIDAC SQ 04/26/25 11:30 04/27/25 20:30 DC Insulin Human Regular (humuLIN R 100 UNIT/ML 3ML) 25 unit TIDAC SQ 04/25/25 07:30 04/26/25 07:58 DC 04/25/25 17:39 25 UNIT Insulin Human Regular (humuLIN R 100 UNIT/ML 3ML) INSULIN SLIDING SCAL... ACHS SQ 04/22/25 21:00 04/24/25 16:16 DC 04/24/25 11:18 8 UNIT Insulin Human Regular (humuLIN R 100 UNIT/ML 3ML) INSULIN SLIDING SCAL... ACHS SQ 04/24/25 16:30 04/25/25 14:09 DC 04/25/25 11:57 16 UNIT Insulin Human Regular (humuLIN R 100 UNIT/ML 3ML) INSULIN SLIDING SCAL... ACHS SQ 04/25/25 16:30 05/25/25 16:29 04/30/25 12:51 6 UNIT Insulin Human Regular (humuLIN R 100 UNIT/ML 3ML) INSULIN SLIDING SCAL... Q4H SQ 04/27/25 20:30 04/28/25 09:11 DC 04/28/25 06:00 4 UNIT Lactated Ringer's 1,000 ml @ 100 mls/hr Q10H IV 04/22/25 20:00 04/23/25 10:09 DC 04/23/25 06:00 100 MLS/HR Lactulose (Constulose 20gm/ 30ml Udcup) 30 gm TID PO 04/25/25 11:00 04/30/25 09:45 DC 04/30/25 09:16 30 GM Levothyroxine Sodium (SYNTHroid 125MCG TAB) 125 mcg DAILY@0630 PO 04/25/25 06:30 05/25/25 06:29 05/01/25 06:36 125 MCG Magnesium Sulfate 50 ml @ 0 mls/hr PROTOCOL PRN IV OTHER [SEE ORDER COMMENTS] 04/22/25 20:00 05/22/25 19:59 Methylprednisolone Sodium Succinate (Solu-medROL 125MG) 125 mg Q6H IVP 04/23/25 08:00 04/28/25 09:10 DC 04/25/25 09:45 125 MG Metoprolol Succinate (TopROL XL) 50 mg AM PO 04/25/25 09:00 05/25/25 08:59 05/01/25 09:53 50 MG Ondansetron HCl (zoFRAN 4MG INJ) 4 mg Q6H PRN IV NAUSEA/VOMITING 04/22/25 20:00 05/22/25 19:59 04/22/25 20:10 4 MG Pantoprazole Sodium (PROTonix 40MG INJ) 40 mg DAILY IVP 04/24/25 10:00 05/24/25 09:59 05/01/25 09:53 40 MG Pharmacy Profile Note (Pharmacy Communication) 1 each ONCE MISC 05/01/25 08:00 04/30/25 16:52 DC Potassium Chloride 100 ml @ 100 mls/hr AD PRN IV POTASSIUM PROTOCOL 04/22/25 20:00 05/22/25 19:59 Potassium Chloride (K-Dur/Klor-Con 20meq) 20 meq AD PRN PO POTASSIUM PROTOCOL 04/22/25 20:00 05/22/25 19:59 Potassium Chloride (KCl 10% Elixir 20meq/15ml) 20 meq AD PRN PO POTASSIUM PROTOCOL 04/22/25 20:00 05/22/25 19:59 Pramipexole Dihydrochloride (miraPEX 0.25MG TAB) 0.5 mg HS PO 04/24/25 21:00 05/24/25 20:59 04/30/25 20:39 0.5 MG Pregabalin ([id number]) 75 mg BID PO 04/24/25 21:00 04/24/25 14:49 DC Sodium Chloride 500 ml @ 0 mls/hr Q0M IV 04/25/25 11:00 05/25/25 10:59 Sodium Zirconium Cyclosilicate (Lokelma 10gm Powder) 10 gm TID PO 04/23/25 21:00 04/23/25 14:11 DC Tramadol HCl (UltRAM) 50 mg Q6H PRN PO MODERATE PAIN (4-6) 04/24/25 22:30 04/29/25 22:29 DC 04/28/25 13:55 50 MG Trimethoprim/ Sulfamethoxazole (BactRIM DS) 1 tab BID PO 04/25/25 21:00 04/26/25 14:50 DC 04/25/25 21:51 1 TAB Vancomycin HCl 250 ml @ 125 mls/hr Q12H IV 04/24/25 23:00 04/25/25 12:36 DC 04/25/25 11:43 125 MLS/HR Vancomycin HCl 250 ml @ 125 mls/hr Q12H IV 04/26/25 15:30 04/28/25 03:13 DC 04/27/25 15:22 125 MLS/HR Vancomycin HCl 250 ml @ 125 mls/hr Q12H IV 04/28/25 15:30 04/28/25 18:53 DC Vancomycin HCl 250 ml @ 125 mls/hr Q12H IV 04/28/25 20:00 05/08/25 19:59 05/01/25 06:36 125 MLS/HR Vancomycin HCl (Vancomycin Protocol) 1 each AD IV 04/24/25 10:30 04/25/25 12:36 DC Vancomycin HCl (Vancomycin Protocol) 1 each AD IV 04/26/25 15:00 05/10/25 14:59 Venlafaxine HCl (EffEXOR XR 37.5mg CAP) 37.5 mg DAILY PO 04/24/25 16:00 05/24/25 15:59 05/01/25 09:53 37.5 MG Venlafaxine HCl (EffEXOR XR 37.5mg CAP) 37.5 mg DAILY PO 04/25/25 09:00 04/24/25 14:50 DC Diagnostics / Radiology: [COPY/PASTE HERE IF NO REPORTS PLEASE DELETE SECTION] Assessment: Decompensated cirrhosis HTN Esophageal varies Plan: Patient with known cirrhosis however lost to follow-up. Hold off on EGD given no overt GI bleeding and stable hemoglobin We will monitor closely BEHZAD KOCH [employer] May 01, 2025 10:39
--- NOTE | 2025-05-01 11:08 | PN ---
INFECTIOUS DISEASE PROGRESS NOTE Date of Service: May 01, 2025 SUBJECTIVE: This is a 54 year old female patient who was seen and examined at bedside in room 314. Patient is status post right nephrostomy tube 04/29/2025. The preliminary report of the repeat blood culture on 04/30/2025 is growing Gram-positive cocci in clusters. Cardiology was consulted for a possible RAMAN, patient however is not a candidate due to remains thrombocytopenic with a high risk for bleeding. Regarding the vertebral osteomyelitis no surgical intervention is planned at th is time We will continue on vancomycin and will need IV antibiotics for [address] PICC line. PHYSICAL EXAM EYES: Anicteric. Pupils equal and reactive. HENT: No oral thrush seen, moist Oral mucosa NECK: Supple, no JVD or thyromegaly. LUNGS: Good air entry. No rales, no rhonchi. Diminished breath sounds. Oxygen support as needed. CARDIOVASCULAR: S1, S2 regular. No murmur heard. ABDOMEN: Soft, non tender, bowel sounds present, no organomegaly. SKIN: No rashes, no swelling. LYMPHATICS: No peripheral lymphadenopathy MUSCULOSKELETAL: No joint swelling, erythema or tenderness. EXTREMITIES: No cyanosis or clubbing BACK: No deformity, no pressure ulcer. Right nephrostomy tube. GENITOURINARY: No dysuria or hematuria, Nolasco catheter. Vital Sign (Last 12 Hours) 04/30/25 05/01/25 05/01/25 05/01/25 23:58 00:00 04:00 07:22 Temp 97.9 98.2 Pulse 64 69 77 Resp 22 16 16 18 B/P (MAP) 134/85 158/80 Pulse Ox 94 97 O2 Delivery Room Air Room Air N/A Room Air FiO2 21 05/01/25 08:00 Temp 97.5 Pulse 72 Resp 21 B/P (MAP) 157/76 Pulse Ox 96 O2 Delivery Room Air FiO2 21 Intake & Output (last 24hrs) 0 04/30/25 04/30/25 05/01/25 15:00 23:00 07:00 Output Total 850 ml 450 ml 530 ml Balance -850 ml -450 ml -530 ml LABS: Laboratory: Test 05/01/25 08:30 05/01/25 05:30 05/01/25 05:07 04/30/25 15:50 Range/Units Blood Gas Specimen Type Arterial Arterial Blood pH 7.371 7.350-7.450 Arterial Blood Partial Pressure CO2 43 32-45 mmHg Arterial Blood Partial Pressure O2 70.6 L 83.0-108.0 mmHg Arterial Blood HCO3 24.6 21.0-28.0 mmol/L Arterial Blood Oxygen Saturation 93.8 L 94.0-98.0 % Arterial Blood Base Excess -0.8 -2.0-3.0 mmol/L Blood Gas Temperature 37.0 35.5-37.0 CELSIUS Blood Gas Vent Mode RA ROOM AIR FiO2 21.0 % Blood Gas Specimen Comment LR REBECCA, MAYUR White Blood Count 11.6 H 4.8-10.8 K/uL Red Blood Count 3.92 L 4.00-5.50 MIL/uL Hemoglobin 9.8 L 12.0-16.0 g/dL Hematocrit 32.2 L 36-48 % Mean Corpuscular Volume 82.1 79-99 fL Mean Corpuscular Hemoglobin 25.0 L 27.0-33.0 pg Mean Corpuscular Hemoglobin Concent 30.4 L 32.0-36.0 g/dL Red Cell Distribution Width 22.0 H 11.0-15.5 % Platelet Count 44 L 130-400 K/uL Mean Platelet Volume 7.5-10.5 fL Immature Granulocyte % (Auto) 1.3 H 0-1 % Neutrophils (%) (Auto) 89.4 H 40.0-77.0 % Lymphocytes (%) (Auto) 4.2 L 21.0-51.0 % Monocytes (%) (Auto) 4.7 3.0-13.0 % Eosinophils (%) (Auto) 0.2 0.0-8.0 % Basophils (%) (Auto) 0.2 0.0-5.0 % Neutrophils # (Auto) 10.4 H 1.8-7.7 K/uL Lymphocytes # (Auto) 0.5 L 1.0-4.8 K/uL Monocytes # (Auto) 0.5 0.1-1.0 K/uL Eosinophils # (Auto) 0.02 0.00-0.70 K/uL Basophils # (Auto) 0.02 0.00-0.20 K/uL Absolute Immature Granulocyte (auto 0.15 0-1 K/uL Nucleated Red Blood Cells 0.0 0.0-0.19 % Sodium Level 139 136-145 mmol/L Potassium Level 4.0 3.5-5.1 mmol/L Chloride Level 104 101-111 mmol/L Carbon Dioxide Level 28 21-32 mmol/L Blood Urea Nitrogen 28 H 7-18 mg/dL Creatinine 1.0 0.5-1.0 mg/dL Glomerular Filtration Rate Calc 67 >90 mL/min Random Glucose 167 H 70-105 mg/dL Total Calcium 8.1 L 8.5-10.1 mg/dL Total Bilirubin 2.8 H 0.2-1.0 mg/dL Aspartate Amino Transf (AST/SGOT) 91 H 10-37 U/L Alanine Aminotransferase (ALT/SGPT) 80 H 12-78 U/L Alkaline Phosphatase 281 H 50-136 U/L Ammonia 25 11-32 umol/L C-Reactive Protein, Quantitative 105.50 H 0.5-3.0 mg/L Total Protein 7.4 6.0-8.3 g/dL Albumin 1.8 L 3.5-5.0 g/dL Whole Blood Glucose 134 H 70-110 MG/DL Bedside Glucose Comment Notified Nurse Test 04/30/25 05:57 04/29/25 19:00 Range/Units Erythrocyte Sedimentation Rate 60 H 0-30 MM/HR Uric Acid 3.5 2.6-7.2 mg/dL Direct Bilirubin 1.2 H 0.0-0.3 mg/dL B-Type Natriuretic Peptide 22 0-100 pg/mL Vancomycin Level Trough 15.0 # 10.0-20.0 UG/ML Venous Blood pH 7.465 H 7.320-7.430 Venous Blood pCO2 at Patient Temp 37 L 38-54 Venous Blood pO2 at Patient Temp 52.9 H 23.0-48.0 mmHg Venous Blood HCO3 26.1 22.0-29.0 Venous Blood Base Excess 2.4 -2.0-3.0 Venous Blood Total Hemoglobin 11.3 L 12.0-16.0 Sodium (Blood Gas) 134 L 136-145 MMOL/L Bedside Potassium (Blood Gas) 3.4 3.4-4.5 MMOL/L Bedside Chloride (Blood Gas) 105 98-107 MMOL/L Bedside Glucose (Blood Gas) 212 H 65-95 MG/DL Bedside Ionized Calcium (Blood Gas) 1.14 L 1.15-1.33 MMOL/L Bedside Lactic Acid (Blood Gas) 1.88 H 0.36-0.75 MMOL/L AGE/SX: 54/F ROOM: [facility] RE04/22/[address]: VIKRAM CONNER MD : 1970 BED: 1 DIS: STATUS: ADM IN TLOC: SPEC: [id number] EVERARDO: 04/29/25 STATUS: COMP REQ: [id number] RECD: 04/30/[address]: GABE VAIL [employer]EN[employer] ED[employer] OPERATOR SOURCE: BLOOD ENTR: 04/30/[address]: EDNA SOARES MD SPDESC: BLOOD CARLENE CAMARILLO MD,VIKRAM ELLER MD, MD,SANNA STEIN,GABE VANG,PARAG ROBLEDO,CARLENE PIERCE,DANIEL Patterson MD ORDERED: AERO ID & SENS COMMENTS: Critical result called to, and read back performed by: Name/Title: TIMOTHYO/REBECCA MARTINEZ RN on 05/01/25 at 0849. Call made by SAULO. Procedure Result Mini Date-Time AEROBIC ID & SENSITIVITIES Final 05/01/25-0849 MRL COLONY DESCRIPTION: DAY 1: GRAM POSITIVE COCCI IN CLUSTERS PEDIATRIC BOTTLE STAPHYLOCOCCUS AUREUS STUDIES TO CONTINUE DAY 2: FOR SENSITIVITY SEE # [id number] COMMENTS(R): FOR SENSITIVITY SEE [id number] MRSA: NOTE: THIS IS A METHICILLIN-RESISTANT STAPH AUREUS STAPHYLOCOCCUS AUREUS-MRSA Test(s) performed by: [facility] [address] [place] [address] ASSESSMENT: Methicillin-resistant Staphylococcus aureus bacteremia. Urinary tract infection with methicillin-resistant Staphylococcus aureus. L2 and L3 intervertebral disc osteomyelitis.. Right Hydronephrosis, status post right nephrostomy tube placement. Non-ketotic hyperglycemia. Urinary retention requiring Nolasco catheter placement. Morbid obesity. Back pain. Thrombocytopenia. Diabetes mellitus. PLAN: Continue vancomycin per pharmacy protocol. Continue pain management. Continue antidiabetic. Continue GI prophylaxis. Monitor electrolytes. Neurosurgeon has evaluated patient. Patient will need 6 weeks of IV antibiotics. Cardiology has evaluated patient and is not a candidate for a RAMAN. This case was reviewed and discussed with my supervising physician and the above assessment and plan was formulated and agreed upon. ATTESTATION BY PHYSICIAN I have seen and examined the patient. I reviewed the documentation, medical decision making, and treatment plan as noted by the mid-level provider above. I agree with the findings and plan of care. EDNA SOARES MD, MIRTA L [facility] May 01, 2025 11:08
--- NOTE | 2025-05-01 12:17 | PN ---
[facility] PROGRESS NOTE Date of Service: May 01, 2025 Time of Service: 12:11 SUBJECTIVE: This is a 54-year-old female with past medical history of undiagnosed obstructive sleep apnea, diabetes type 2, hypertension, hyperlipidemia, hypothyroidism, restless leg syndrome, anxiety disorder,depression, lupus and severe morbid obesity who presents to the ED for complaints of severe low back pain which started 2 weeks ago and getting worse for the past 2 days and patient reports she is taking prednisone 30mg po daily for her Lupus she said.Patient also reports she was recently seen in this ED for similar complaints and was diagnosed with acute lumbosacral myofascial strain. 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 Urinalysis consistent with urinary tract infection. CT abdomen and pelvis result revealed no acute intra-abdominal or pelvic pathology cirrhotic liver morphology with splenomegaly, consistent with portal hypertension. Bilateral renal cortical thickening may reflect renal parenchymal disease. While in the ER patient received Rocephin 1 g IV, 1 L NS bolus. We will admit patient for further medical management. 04/23/25 Patient was seen and examined at bedside. She was complaining of chest pain early in the morning but her EKG and troponin were normal. Patient says she got liver cirrhosis from taking Tylenol with codeine in the past for a long time. Remarkable labs are Na 129, K 6.4. Cl 98, BUN 44. Cr 1.2 with no anion gap. New EKG shows sinus rhythm with no tall T-waves or shortened QT interval. We will give her a dose of calcium gluconate and lokelma and recheck her labs. we will hold her iv fluids for now. Her urine anion gap is 36.0 mEq/l. Repeat potassium was 4.2 and 4.6. We will order CT lumbar spine and request nephro and cardio consults due to hyponatremia, RTA and cirrhosis with portal hypertension respectively. We will order lupus, complement , anemia panel due to her abnormal labs and h/o SLE. Hematology recommended solu medrol 125 q6. she might need hydrochloroquine upon discharge for SLE 04/24/25 Patient was seen and examined at bedside. She is complaining of widespread generalized body pain with tender points and generalized weakness, her CPK is going up, we will repeat it and start her on pregabalin. Her labs are improving. She had an EGD done last year that showed grade III varices but lost to follow up with TDS. No GI intervention as her Hb is stable. Will start her on vancomycin. Her home meds have been reconciled. She takes venlaflaxine and pramipexole for depression and restless leg syndrome respectively. Her elevated urine anion gap could be due to BALTAZAR or NSAID induced kidney injury but her creatinine is improving. Pending abdominal ultrasound and CT lumbar spine re sults. 04/25/25 Patient was seen and examined. She was observed sitting in a chair but was unable to answer questions appropriately and appeared confused. Ammonia level was elevated at 59; lactulose has been initiated at 30 mL TID. She is currently receiving vancomycin for MRSA identified in the urine. Right upper quadrant ultrasound demonstrated chronic hepatic changes with a hypoechoic lesion in the right lobe of the liver, possibly representing a complex cyst. CT of the lumbar spine revealed moderate lumbar spondylosis and diffuse osteopenia. Her platelet count is 37 and showing slow improvement. Dr. Urias, covering for Dr. Lorenzo, recommended holding solu-medrol for now. If platelet count declines tomorrow, steroids may need to be restarted. Ammonia and additional labs will be rechecked in the morning. 04/26/25 Patient was seen at bedside. Will request a transfer to the ICU due to worsening agitation and hypercapnic respiratory failure requiring BIPAP support.Will order Precedex drip for sedation to improve tolerance of non-invasive ventilation. Imaging studies including CT head and MRI spine have been ordered to evaluate for underlying neurologic causes. Patient remains hemodynamically stable; pulmonary consult is in place. She is growing gram positive cocci in clusters in her blood, will request ID input on antibiotics as she was on vancomycin previously and was started on bactrim for MRSA in urine. Her platelet count is 36 and solu-medrol is on hold. Ammonia improved from 59 to 12 04/27/25 Patient was evaluated at bedside. She was transferred to the ICU yesterday due to agitation and hypercapnia, requiring a Precedex drip as she was removing her nasal cannula. BiPAP was initiated to support ventilation, and she is now resting comfortably. CT brain was unremarkable with no acute findings. She has a free water deficit of approximately 1.4 liters, for which D5W will be administered. CRP has decreased from 83.5 to 56.4. However, platelets have dropped from 36 to 28, and hematology is closely monitoring her. The patient remains NPO. We wanted to start NG tube feeding but patient has h/o esophageal varices. We will await gastroenterologys recommendations, including possible EGD if indicated. 04/28/25 Patient was evaluated at bedside, she is bed bound not very responsive to questions. She is currently off BiPAP and precedex drip. Her agitation has improved and she is resting comfortably in bed. She has MRSA bacteremia and we will repeat blood cultures. She is currently on vancomycin. She has moderate right hydronephrosis which is increasing, we will request urology consult. Her sodium is trending upwards from 147 to 152 and she has a free water deficit of 2.4 L , we will increase D5 rate from 75 to 150mls/hr. CRP improving from 56.4 to 42.7. Platelets dropped from 28 to 21, we will follow Dr. Lorenzo's recommendations and his plan is give her IgG. She is not bleeding actively. 04/29/25 Patient was evaluated at bedside. She is alert, awake and oriented. She was minimally verbal yesterday but is now more interactive, expressing pain and discussing her medical history. She reports diffuse joint pain and is unable to lift her arms or legs due to significant discomfort. 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 urologist Dr. Colin recommended nephrostomy tube on her right due to hydronephrosis. Her platelets improved to 44 without any intervention. She will be getting platelets for the procedure. She has infectious spondylodiscitis which could be the source of her bacteremia. We have requested transfer to [facility] but general warehouse worker said Dr. Sanchez has privileges at [facility] and will try to consult him. Her white count went up to 12.2, LFTs mildly going up. We will hold off on gabapentin for now. 04/30/25 Patient was evaluated at bedside. She is alert, awake and oriented. Her vitals are stable. She is interactive, expressing pain and discussing her medical history. She reports diffuse joint pain and is able to lift her arms or legs slightly due to pain and discomfort. Her active and passive range of motions are limited. 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 She also passed stool more than 5 times yesterday could be due to lactulose which has been stopped from today. A Percutaneous fluroscopy-guided placement of an 8-F nephrostomy catheter was performed,the patient tolerated the procedure well. Neurosurgeon Dr. Sanchez saw the patient and came up with possible diagnosis of discitis and osteomyelitis at L2-L3 along with psoas inflammation. She has spondylolisthesis which is non- critical and can be managed medically for now. According to Dr. Lorenzo she will benefit from IVIg for 3 days on the background of possible ITP. Her current platelet is 41 and Hgb 9.6. Also, Endocrinology team adjusted Insulin regimen. We have requested cardiology consult for suspected endocarditis and will request RAMAN although she has thrombocytopenia and h/o esophageal varices. 05/01/25 Patient was evaluated at bedside. She is alert, awake and oriented. Her vitals are stable, except blood pressure which is 158/80. She reports diffuse joint pain and is able to lift her arms or legs slightly due to pain and discomfort. Her active and passive range of motions are limited. 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 As per Dr. Lorenzo she will be started IVIG from today for 3 days. As per the Cardiology, she won't undergo RAMAN due thrombocytopenia, cirrhosis, varices. We will continue IV antibiotics and add low dose pregabalin for her pain. REVIEW OF SYSTEMS CONSTITUTIONAL: No fever, chills, or night sweats. NEUROLOGICAL: Denies headache, sensory deficit, vertigo/spinning sensation, or tremors. CARDIOVASCULAR: Denies any exertional angina, dyspnea on exertion, orthopnea, paroxysmal nocturnal dyspnea, palpitations. PULMONARY: Denies any shortness of breath, cough, phlegm/sputum, hemoptysis, pleuritic chest pain. GASTROINTESTINAL: Denies nausea, vomiting, abdominal pain. GENITOURINARY: Denies frequency, urgency, nocturia, hematuria or incontinence. PHYSICAL EXAM GENERAL APPEARANCE: The patient is alert, awake and oriented and bedbound NEUROLOGICAL: No sensory deficits. Neuro exam limited by restricted mobility due to pain, but sensation to light touch, pinprick, and two-point discrimination intact; palmar ice cream truck driver strength preserved bilaterally. CHEST: Normal chest expansion. LUNGS: Absence of any rales, rhonchi or any wheezing. CARDIOVASCULAR: Regular. S1 and S2 normal. No appreciable rubs, murmurs or gallops. ABDOMEN: Soft nontender, and nondistended. There is no rebound, voluntary guarding, or rigidity. GENITOURINARY: S/P day 2, Nephrostomy tube on the right side Vital Signs (last 8hr) Date Time Temp Pulse Resp B/P (MAP) Pulse Ox O2 Delivery O2 Flow Rate FiO2 05/01/25 09:53 96 Room Air* 0 21 05/01/25 08:00 97.5 72 21 157/76 96 Room Air 21 05/01/25 07:22 77 18 N/A Room Air 21 LABS: Laboratory: Test 05/01/25 11:41 05/01/25 08:30 05/01/25 05:30 04/30/25 05:57 Range/Units Whole Blood Glucose 180 H 70-110 MG/DL Bedside Glucose Comment Notified Nurse Blood Gas Specimen Type Arterial Arterial Blood pH 7.371 7.350-7.450 Arterial Blood Partial Pressure CO2 43 32-45 mmHg Arterial Blood Partial Pressure O2 70.6 L 83.0-108.0 mmHg Arterial Blood HCO3 24.6 21.0-28.0 mmol/L Arterial Blood Oxygen Saturation 93.8 L 94.0-98.0 % Arterial Blood Base Excess -0.8 -2.0-3.0 mmol/L Blood Gas Temperature 37.0 35.5-37.0 CELSIUS Blood Gas Vent Mode RA ROOM AIR FiO2 21.0 % Blood Gas Specimen Comment DAVID FERNANDEZ RN White Blood Count 11.6 H 4.8-10.8 K/uL Red Blood Count 3.92 L 4.00-5.50 MIL/uL Hemoglobin 9.8 L 12.0-16.0 g/dL Hematocrit 32.2 L 36-48 % Mean Corpuscular Volume 82.1 79-99 fL Mean Corpuscular Hemoglobin 25.0 L 27.0-33.0 pg Mean Corpuscular Hemoglobin Concent 30.4 L 32.0-36.0 g/dL Red Cell Distribution Width 22.0 H 11.0-15.5 % Platelet Count 44 L 130-400 K/uL Mean Platelet Volume 7.5-10.5 fL Immature Granulocyte % (Auto) 1.3 H 0-1 % Neutrophils (%) (Auto) 89.4 H 40.0-77.0 % Lymphocytes (%) (Auto) 4.2 L 21.0-51.0 % Monocytes (%) (Auto) 4.7 3.0-13.0 % Eosinophils (%) (Auto) 0.2 0.0-8.0 % Basophils (%) (Auto) 0.2 0.0-5.0 % Neutrophils # (Auto) 10.4 H 1.8-7.7 K/uL Lymphocytes # (Auto) 0.5 L 1.0-4.8 K/uL Monocytes # (Auto) 0.5 0.1-1.0 K/uL Eosinophils # (Auto) 0.02 0.00-0.70 K/uL Basophils # (Auto) 0.02 0.00-0.20 K/uL Absolute Immature Granulocyte (auto 0.15 0-1 K/uL Nucleated Red Blood Cells 0.0 0.0-0.19 % Sodium Level 139 136-145 mmol/L Potassium Level 4.0 3.5-5.1 mmol/L Chloride Level 104 101-111 mmol/L Carbon Dioxide Level 28 21-32 mmol/L Blood Urea Nitrogen 28 H 7-18 mg/dL Creatinine 1.0 0.5-1.0 mg/dL Glomerular Filtration Rate Calc 67 >90 mL/min Random Glucose 167 H 70-105 mg/dL Total Calcium 8.1 L 8.5-10.1 mg/dL Total Bilirubin 2.8 H 0.2-1.0 mg/dL Aspartate Amino Transf (AST/SGOT) 91 H 10-37 U/L Alanine Aminotransferase (ALT/SGPT) 80 H 12-78 U/L Alkaline Phosphatase 281 H 50-136 U/L Ammonia 25 11-32 umol/L C-Reactive Protein, Quantitative 105.50 H 0.5-3.0 mg/L Total Protein 7.4 6.0-8.3 g/dL Albumin 1.8 L 3.5-5.0 g/dL Erythrocyte Sedimentation Rate 60 H 0-30 MM/HR Uric Acid 3.5 2.6-7.2 mg/dL Direct Bilirubin 1.2 H 0.0-0.3 mg/dL B-Type Natriuretic Peptide 22 0-100 pg/mL Vancomycin Level Trough 15.0 # 10.0-20.0 UG/ML Test 04/29/25 19:00 Range/Units Venous Blood pH 7.465 H 7.320-7.430 Venous Blood pCO2 at Patient Temp 37 L 38-54 Venous Blood pO2 at Patient Temp 52.9 H 23.0-48.0 mmHg Venous Blood HCO3 26.1 22.0-29.0 Venous Blood Base Excess 2.4 -2.0-3.0 Venous Blood Total Hemoglobin 11.3 L 12.0-16.0 Sodium (Blood Gas) 134 L 136-145 MMOL/L Bedside Potassium (Blood Gas) 3.4 3.4-4.5 MMOL/L Bedside Chloride (Blood Gas) 105 98-107 MMOL/L Bedside Glucose (Blood Gas) 212 H 65-95 MG/DL Bedside Ionized Calcium (Blood Gas) 1.14 L 1.15-1.33 MMOL/L Bedside Lactic Acid (Blood Gas) 1.88 H 0.36-0.75 MMOL/L Current Medications Medications (Trade) Dose Ordered Sig/Roberth Route PRN Reason Start Time Stop Time Status Last Admin Dose Admin Acetaminophen (TYLenol 325MG TAB) 650 mg Q4H PRN PO MILD PAIN (1-3) 04/22/25 20:00 05/22/25 19:59 04/30/25 06:17 650 MG Acetaminophen (TYLenol 325MG TAB) 650 mg Q6H PRN PO TEMPERATURE GREATER THAN 101.5 04/22/25 20:00 05/22/25 19:59 04/23/25 10:02 650 MG Acetaminophen/ Hydrocodone Bitart (NORco 5/325MG) 1 tab Q4H PRN PO MODERATE PAIN (4-6) 04/30/25 12:00 05/05/25 11:59 04/30/25 22:07 1 TAB Atorvastatin Calcium (LIPItor 20MG) 20 mg HS PO 04/24/25 21:00 05/24/25 20:59 04/30/25 20:39 20 MG Ceftriaxone Sodium 1 gm/ Sodium Chloride 50 ml @ 100 mls/hr BID IV 04/22/25 21:00 04/22/25 19:59 DC Ceftriaxone Sodium (ROCEphine 1G INJ) 1 gm BID IVPB 04/22/25 21:00 04/22/25 20:44 DC Ceftriaxone Sodium (ROCEphine 1G INJ) 1 gm BID IVPB 04/23/25 09:00 04/25/25 12:36 DC 04/25/25 09:44 1 GM Dexmedetomidine/ Sodium Chloride (PRECEdex 200MCG/ 50ML-NS) 200 mcg PROTOCOL IV 04/26/25 12:00 04/26/25 14:54 DC Dexmedetomidine/ Sodium Chloride (PRECEdex 400MCG/ 100ML-NS) 400 mcg PROTOCOL PRN IV ANXIETY/AGITATION 04/26/25 19:30 05/26/25 19:29 04/27/25 23:31 400 MCG Dexmedetomidine/ Sodium Chloride (PRECEdex 400MCG/ 100ML-NS) 400 mcg PROTOCOL STAT IV 04/26/25 14:53 04/26/25 14:58 DC 04/26/25 15:18 400 MCG Dextrose 1,000 ml @ 75 mls/hr [id number] IV 04/26/25 12:00 04/30/25 09:36 DC 04/29/25 04:27 150 MLS/HR Dextrose (D50w) 50 ml AD PRN IV HYPOGLYCEMIA PROTOCOL 04/22/25 20:00 05/22/25 19:59 Famotidine (Pepcid 20mg Tab) 20 mg DAILY PO 04/23/25 09:00 04/24/25 09:48 DC 04/23/25 09:33 20 MG Gabapentin (NEURontin 300 MG CAP) 300 mg BID PO 04/24/25 21:00 04/28/25 09:10 DC 04/25/25 21:51 300 MG Glucagon (Glucagon 1mg Kit) 1 mg AD PRN IM HYPOGLYCEMIA PROTOCOL 04/22/25 20:00 05/22/25 19:59 Heparin Sodium (Porcine) (HEParin 5,000 UNIT VIAL) 5,000 unit Q8H SQ 04/25/25 09:00 04/25/25 08:40 DC Hydromorphone HCl (DiLAUDid 0.5MG INJ) 0.5 mg BIDPRN PRN IVP SEVERE PAIN (7-10) 04/25/25 19:00 04/30/25 11:59 DC 04/29/25 23:31 0.5 MG Hydromorphone HCl (DiLAUDid 0.5MG INJ) 0.5 mg Q6H PRN IVP SEVERE PAIN (7-10) 04/23/25 14:00 04/25/25 08:25 DC 04/25/25 04:14 0.5 MG Hydromorphone HCl (DiLAUDid 1MG INJ) 1 mg TIDP PRN IVP SEVERE PAIN (7-10) 04/30/25 13:00 05/05/25 12:59 04/30/25 20:44 1 MG Immune Globulin 400 ml @ 0 mls/hr Q24H IV 05/01/25 14:00 05/03/25 14:01 Insulin Glargine (LANtus 100 UNITS/ML 10 ML VIAL) 10 units HS SQ 04/24/25 21:00 04/24/25 16:57 DC Insulin Glargine (LANtus 100 UNITS/ML 10 ML VIAL) 10 units ONCE STAT SQ 04/24/25 10:54 04/24/25 11:00 DC 04/24/25 11:19 10 UNITS Insulin Glargine (LANtus 100 UNITS/ML 10 ML VIAL) 15 units HS SQ 04/24/25 21:00 04/24/25 17:06 DC Insulin Glargine (LANtus 100 UNITS/ML 10 ML VIAL) 30 units ONCE SQ 04/24/25 17:00 04/25/25 06:19 DC 04/24/25 18:16 30 UNITS Insulin Glargine (LANtus 100 UNITS/ML 10 ML VIAL) 40 units DAILY SQ 04/29/25 09:00 04/30/25 07:31 DC Insulin Glargine (LANtus 100 UNITS/ML 10 ML VIAL) 50 units DAILY SQ 04/26/25 09:00 04/29/25 06:49 DC 04/28/25 08:46 50 UNITS Insulin Glargine (LANtus 100 UNITS/ML 10 ML VIAL) 50 units DAILY SQ 04/30/25 09:00 05/30/25 08:59 05/01/25 10:00 50 UNITS Insulin Human Regular (humuLIN R 100 UNIT/ML 3ML) 5 unit TIDAC SQ 04/24/25 17:00 04/24/25 17:06 DC Insulin Human Regular (humuLIN R 100 UNIT/ML 3ML) 8 unit TIDAC SQ 04/28/25 07:30 04/30/25 07:31 DC 04/30/25 06:15 8 UNIT Insulin Human Regular (humuLIN R 100 UNIT/ML 3ML) 10 unit TIDAC SQ 04/24/25 17:00 04/25/25 06:17 DC 04/25/25 06:15 10 UNIT Insulin Human Regular (humuLIN R 100 UNIT/ML 3ML) 12 unit TIDAC SQ 04/30/25 07:30 05/30/25 07:29 05/01/25 06:37 12 UNIT Insulin Human Regular (humuLIN R 100 UNIT/ML 3ML) 15 unit TIDAC SQ 04/26/25 11:30 04/27/25 20:30 DC Insulin Human Regular (humuLIN R 100 UNIT/ML 3ML) 25 unit TIDAC SQ 04/25/25 07:30 04/26/25 07:58 DC 04/25/25 17:39 25 UNIT Insulin Human Regular (humuLIN R 100 UNIT/ML 3ML) INSULIN SLIDING SCAL... ACHS SQ 04/22/25 21:00 04/24/25 16:16 DC 04/24/25 11:18 8 UNIT Insulin Human Regular (humuLIN R 100 UNIT/ML 3ML) INSULIN SLIDING SCAL... ACHS SQ 04/24/25 16:30 04/25/25 14:09 DC 04/25/25 11:57 16 UNIT Insulin Human Regular (humuLIN R 100 UNIT/ML 3ML) INSULIN SLIDING SCAL... ACHS SQ 04/25/25 16:30 05/25/25 16:29 04/30/25 12:51 6 UNIT Insulin Human Regular (humuLIN R 100 UNIT/ML 3ML) INSULIN SLIDING SCAL... Q4H SQ 04/27/25 20:30 04/28/25 09:11 DC 04/28/25 06:00 4 UNIT Lactated Ringer's 1,000 ml @ 100 mls/hr Q10H IV 04/22/25 20:00 04/23/25 10:09 DC 04/23/25 06:00 100 MLS/HR Lactulose (Constulose 20gm/ 30ml Udcup) 30 gm TID PO 04/25/25 11:00 04/30/25 09:45 DC 04/30/25 09:16 30 GM Levothyroxine Sodium (SYNTHroid 125MCG TAB) 125 mcg DAILY@0630 PO 04/25/25 06:30 05/25/25 06:29 05/01/25 06:36 125 MCG Magnesium Sulfate 50 ml @ 0 mls/hr PROTOCOL PRN IV OTHER [SEE ORDER COMMENTS] 04/22/25 20:00 05/22/25 19:59 Methylprednisolone Sodium Succinate (Solu-medROL 125MG) 125 mg Q6H IVP 04/23/25 08:00 04/28/25 09:10 DC 04/25/25 09:45 125 MG Metoprolol Succinate (TopROL XL) 50 mg AM PO 04/25/25 09:00 05/25/25 08:59 05/01/25 09:53 50 MG Ondansetron HCl (zoFRAN 4MG INJ) 4 mg Q6H PRN IV NAUSEA/VOMITING 04/22/25 20:00 05/22/25 19:59 04/22/25 20:10 4 MG Pantoprazole Sodium (PROTonix 40MG INJ) 40 mg DAILY IVP 04/24/25 10:00 05/24/25 09:59 05/01/25 09:53 40 MG Pharmacy Profile Note (Pharmacy Communication) 1 each ONCE MISC 05/01/25 08:00 04/30/25 16:52 DC Potassium Chloride 100 ml @ 100 mls/hr AD PRN IV POTASSIUM PROTOCOL 04/22/25 20:00 05/22/25 19:59 Potassium Chloride (K-Dur/Klor-Con 20meq) 20 meq AD PRN PO POTASSIUM PROTOCOL 04/22/25 20:00 05/22/25 19:59 Potassium Chloride (KCl 10% Elixir 20meq/15ml) 20 meq AD PRN PO POTASSIUM PROTOCOL 04/22/25 20:00 05/22/25 19:59 Pramipexole Dihydrochloride (miraPEX 0.25MG TAB) 0.5 mg HS PO 04/24/25 21:00 05/24/25 20:59 04/30/25 20:39 0.5 MG Pregabalin ([id number]) 75 mg BID PO 04/24/25 21:00 04/24/25 14:49 DC Sodium Chloride 500 ml @ 0 mls/hr Q0M IV 04/25/25 11:00 05/25/25 10:59 Sodium Zirconium Cyclosilicate (Lokelma 10gm Powder) 10 gm TID PO 04/23/25 21:00 04/23/25 14:11 DC Tramadol HCl (UltRAM) 50 mg Q6H PRN PO MODERATE PAIN (4-6) 04/24/25 22:30 04/29/25 22:29 DC 04/28/25 13:55 50 MG Trimethoprim/ Sulfamethoxazole (BactRIM DS) 1 tab BID PO 04/25/25 21:00 04/26/25 14:50 DC 04/25/25 21:51 1 TAB Vancomycin HCl 250 ml @ 125 mls/hr Q12H IV 04/24/25 23:00 04/25/25 12:36 DC 04/25/25 11:43 125 MLS/HR Vancomycin HCl 250 ml @ 125 mls/hr Q12H IV 04/26/25 15:30 04/28/25 03:13 DC 04/27/25 15:22 125 MLS/HR Vancomycin HCl 250 ml @ 125 mls/hr Q12H IV 04/28/25 15:30 04/28/25 18:53 DC Vancomycin HCl 250 ml @ 125 mls/hr Q12H IV 04/28/25 20:00 05/08/25 19:59 05/01/25 06:36 125 MLS/HR Vancomycin HCl (Vancomycin Protocol) 1 each AD IV 04/24/25 10:30 04/25/25 12:36 DC Vancomycin HCl (Vancomycin Protocol) 1 each AD IV 04/26/25 15:00 05/10/25 14:59 Venlafaxine HCl (EffEXOR XR 37.5mg CAP) 37.5 mg DAILY PO 04/24/25 16:00 05/24/25 15:59 05/01/25 09:53 37.5 MG Venlafaxine HCl (EffEXOR XR 37.5mg CAP) 37.5 mg DAILY PO 04/25/25 09:00 04/24/25 14:50 DC DIAGNOSTICS / RADIOLOGY: [ ] ASSESSMENT: Osteomyelitis of L2-L3 Status post nephrostomy tube, Day 2 Persistent bacteremia, 2nd set of blood cultures growing MRSA Infectious spondylodiscitis L2-L3 MRSA bacteremia Sepsis, unable to determine POA Acute hypoxic hypercapnic respiratory failure, not POA, resolved AMS due to suspected steroid induced psychosis or hepatic encephalopathy, not POA, resolved Gram positive bacteremia Hyperammonemia due to cirrhosis, resolved Intractable low back pain due to spinal stenosis POA 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 Acute urinary tract infection due to MRSA POA Hypervolemic hyponatremia POA Chronic anemia POA Hyponatremia POA Acute kidney injury on renal insufficiency POA Hyperglycemia due to uncontrolled diabetes POA Hypocalcemia POA Cirrhotic liver with splenomegaly consistent with portal hypertension per CT POA Esophageal varices Renal parenchymal disease per CT POA Hypothyroidism POA Hypocalcemia POA Hyperlipidemia POA Hypertension POA Anxiety disorder POA Depression POA Restless leg syndrome POA Suspected obstructive sleep apnea untreated POA Morbid obesity POA PLAN: We will start the patient on Lisinopril for elevated blood pressure MRSA bacteremia IV Vancomycin with trough monitoring. Repeat blood cultures - / positive Contact precautions Acute hypoxic hypercapnic respiratory failure, resolved Patient is off BIPAP and dexmedetomidine drip Altered Mental Status due to Hepatic Encephalopathy or steroids induced psychosis, resolved Monitor ammonia levels, mental status, and signs of worsening encephalopathy. Discontinue or hold steroids Monitor neuro status and reassess mental status regularly with steroid adjustments. Intractable lower back pain Per Dr. Sanchez, possible diagnosis of discitis and osteomyelitis at L2-L3 along with psoas inflammation. Continue multimodal pain management: acetaminophen, topical agents Low dose pregabalin Currently on dilaudid and [place] 5 Neuro checks q4 Thrombocytopenia due to ITP Per Dr. Lorenzo, patient to recieve IvIG from today for 3 days for suspected ITP Monitor CBC daily; trend platelets. Rule out DIC, splenic sequestration (cirrhosis-related), and medication-induced causes. Avoid NSAIDs Acute UTI Monitor for signs of urosepsis Encourage hydration and bladder care Hyponatremia, resolved Monitor serum Na closely; consider fluid restriction if dilutional. Cirrhosis with portal hypertension Monitor for decompensation: encephalopathy, ascites, variceal bleeding. Consider beta sergio for variceal prophylaxis. Monitor LFTs, INR, and ammonia Her MELD- Na score is 24 points, 14-15% estimated 90 day mortality Hyperglycemia (Uncontrolled Diabetes) lantus 30 units daily and humalog 10 units tid before meals. patient glucose are stable. off iv steroid MTP monitor blood glucose QID. Educate on diet and insulin compliance; monitor for DKA if concern. Correct electrolytes accordingly. Chronic anemia H/o esophageal varcies due to cirrhosis with portal hypertension Per GI, hold off on EGD given no overt GI bleeding and stable hemoglobin Monitor trends, H&H daily Avoid transfusion unless symptomatic or Hgb <7. ATTESTATION BY PHYSICIAN I have seen and examined the patient. I reviewed the documentation, medical decision making, and treatment plan as noted by the resident provider above. I agree with the findings and plan of care. Cory Pimentel MD [facility],YOLANDA PERSAUD May 01, 2025 12:17
--- NOTE | 2025-05-01 13:48 | NUR ---
IVIG order from Dr Lorenzo pending IVIG MD order from Dr Lorenzo. Batt Machine Operator made contact with Dr Lorenzo and states he is currently at [facility]. He will be at the [place] location at 2:30pm today and requests the IVIG MD Order to be faxed to [phone]. Batt Machine Operator made contact with Yesi at Dr Lorenzo office ([phone]) and confirmed fax #. Yesi advised MD order form was received today from Tanmay Hernandez [facility] at 12:00pm and pending MD to complete. Upon completion, Yesi will contact nurse Castellanos or advertising writer (mobile phone number provided) and fax back to [phone] at [facility]. At present, MD order remains flagged in chart for Dr Lorenzo to complete in case he rounds at [facility] [place] arriving to [place]./Ana Director
--- NOTE | 2025-05-01 14:59 | PN ---
[facility] PROGRESS NOTE Date Patient Seen: May 01, 2025 Time of Visit: 14:59 Supervising Physician: Dr. 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, POA S/P IGG infusions on 04/30/2025 Acute urinary tract infection due to complicated cystitis 2/2 MRSA POA Hypervolemic hyponatremia, POA Chronic anemia, POA Hyponatremia, POA Acute kidney injury on renal insufficiency POA Hyperglycemia due to uncontrolled diabetes POA Hypocalcemia POA Cirrhotic liver with splenomegaly consistent with portal hypertension per CT POA Liver Lesion lesion that measures 1.3 x 1.1 x 1.7 cm in the right lobe on US Esophageal varices Renal parenchymal disease per CT, POA Hypothyroidism Hyperlipidemia Hypertension Anxiety disorder Depression Restless leg syndrome Suspected OHS Morbid obesity, BMI 47.5 INTERVAL HISTORY: Patient assessed at bedside. AAOX3. Currently on room air. States right flank pain has improved. Started IGG yesterday per oncology. Very weak. Repeat blood culture positive for gram positive bacteremia. Cardiology has been consulted for RAMAN, not a candidate for transesophageal echocardiogram due to thrombocytopenia, cirrhosis with esophageal varices, and overall bleeding risk. Prognosis is guarded. No family at bedside. REVIEW OF SYSTEMS: General: No malaise or fever. Neurological: No fainting episodes or seizures. HEENT: No nasal congestion or nasal secretion. Respiratory: No cough, shortness of breath, or wheezing Cardiac: No chest pain or palpitations. Gastrointestinal: No vomiting or diarrhea. Genitourinary: No dysuria hematuria. Skin: No rashes or lesions. Hematological: No bruises or bleeding. Musculoskeletal: No joint pains or arthralgias. Psychiatric: No depression or panic attacks. PHYSICAL EXAM: GENERAL: Patient is awake alert and oriented x3. Cooperative and calm. HEENT: EOMI, Sclera non icteric, moist mucosa NECK: Supple, no JVD, trachea midline LUNGS: Clear breath sounds bilaterally. No wheezes HEART: Regular rate and rhythm. Normal S1 and S2, without murmurs ABD: Abdomen soft, nontender. Bowel sounds present EXT: No clubbing cyanosis or edema NEURO: AAOX3, follows commands Vital Signs (last 8hr) Date Time Temp Pulse Resp B/P (MAP) Pulse Ox O2 Delivery O2 Flow Rate FiO2 05/01/25 12:00 97.3 68 21 130/70 97 Room Air 21 05/01/25 09:53 96 Room Air* 0 21 05/01/25 08:00 97.5 72 21 157/76 96 Room Air 21 05/01/25 07:22 77 18 N/A Room Air 21 LABS: Hematology Labs: Test 05/01/25 05:30 04/30/25 05:57 Range/Units White Blood Count 11.6 H 4.8-10.8 K/uL Red Blood Count 3.92 L 4.00-5.50 MIL/uL Hemoglobin 9.8 L 12.0-16.0 g/dL Hematocrit 32.2 L 36-48 % Mean Corpuscular Volume 82.1 79-99 fL Mean Corpuscular Hemoglobin 25.0 L 27.0-33.0 pg Mean Corpuscular Hemoglobin Concent 30.4 L 32.0-36.0 g/dL Red Cell Distribution Width 22.0 H 11.0-15.5 % Platelet Count 44 L 130-400 K/uL Mean Platelet Volume 7.5-10.5 fL Immature Granulocyte % (Auto) 1.3 H 0-1 % Neutrophils (%) (Auto) 89.4 H 40.0-77.0 % Lymphocytes (%) (Auto) 4.2 L 21.0-51.0 % Monocytes (%) (Auto) 4.7 3.0-13.0 % Eosinophils (%) (Auto) 0.2 0.0-8.0 % Basophils (%) (Auto) 0.2 0.0-5.0 % Neutrophils # (Auto) 10.4 H 1.8-7.7 K/uL Lymphocytes # (Auto) 0.5 L 1.0-4.8 K/uL Monocytes # (Auto) 0.5 0.1-1.0 K/uL Eosinophils # (Auto) 0.02 0.00-0.70 K/uL Basophils # (Auto) 0.02 0.00-0.20 K/uL Absolute Immature Granulocyte (auto 0.15 0-1 K/uL Nucleated Red Blood Cells 0.0 0.0-0.19 % Erythrocyte Sedimentation Rate 60 H 0-30 MM/HR Chemistry Labs: Test 05/01/25 11:41 05/01/25 05:30 04/30/25 05:57 Range/Units Whole Blood Glucose 180 H 70-110 MG/DL Bedside Glucose Comment Notified Nurse Sodium Level 139 136-145 mmol/L Potassium Level 4.0 3.5-5.1 mmol/L Chloride Level 104 101-111 mmol/L Carbon Dioxide Level 28 21-32 mmol/L Blood Urea Nitrogen 28 H 7-18 mg/dL Creatinine 1.0 0.5-1.0 mg/dL Glomerular Filtration Rate Calc 67 >90 mL/min Random Glucose 167 H 70-105 mg/dL Total Calcium 8.1 L 8.5-10.1 mg/dL Total Bilirubin 2.8 H 0.2-1.0 mg/dL Aspartate Amino Transf (AST/SGOT) 91 H 10-37 U/L Alanine Aminotransferase (ALT/SGPT) 80 H 12-78 U/L Alkaline Phosphatase 281 H 50-136 U/L Ammonia 25 11-32 umol/L C-Reactive Protein, Quantitative 105.50 H 0.5-3.0 mg/L Total Protein 7.4 6.0-8.3 g/dL Albumin 1.8 L 3.5-5.0 g/dL Uric Acid 3.5 2.6-7.2 mg/dL Direct Bilirubin 1.2 H 0.0-0.3 mg/dL B-Type Natriuretic Peptide 22 0-100 pg/mL DIAGNOSTICS / RADIOLOGY RESULTS: REASON: SOB ORDERING PHYSICIAN: GABE VAIL NP PROCEDURE: CXR1VW - CHEST 1VW EXAM: CR Chest, 1 View. CLINICAL HISTORY: SOB COMPARISON: Radiograph dated April 26, 2025 FINDINGS: LUNGS: There is no mass, infiltrate, or acute pulmonary abnormality. Mild bibasilar airspace disease may reflect atelectasis. PLEURAL SPACES: No evidence of pleural effusion or pneumothorax. MEDIASTINUM: Mild cardiomegaly, and central pulmonary vascular congestion. BONES: No aggressive appearing osseous lesion seen. IMPRESSION: 1. No acute pulmonary findings. 2. Mild cardiomegaly and central pulmonary vascular congestion. PLAN Per cardiology not a candidate for transesophageal echocardiogram due to thrombocytopenia, cirrhosis with esophageal varices, and overall bleeding risk. BIPAP PRN Monitor hemodynamics Monitor for fevers Continue vancomycin per ID NEURO: Minimize central acting medications as possible. Maintain fall precautions, adequate lighting during the day PULMONARY: Supplemental 02 as needed. Maintain aspiration precautions at all times CARDIOVASCULAR: Follow hemodynamics. Vital signs per facility protocol GI & NUTRITION: Continue with nutritional support. Continue stool softeners and laxatives as needed. KIDNEYS & ELECTROLYTES: Strict monitoring of intake, output and overall fluid balance. Avoid nephrotoxic medications to the extent possible. Medications to be dosed according to renal function. Monitor electrolytes and replace as needed ENDOCRINE: Maintain blood glucose between 100-180 at all times. Hypoglycemia protocol in place INFECTIOUS DISEASE: Trend temperature, WBC and procalcitonin level Follow cultures, deescalate antibiotics as soon as possible. Panculture if new onset fever ONCOLOGY/HEMATOLOGY/COAGULATION: Monitor for s/s of bleeding Monitor hemoglobin, coagulation studies as needed SKIN: Pressure ulcer prevention per facility protocol Specialty mattress ORTHO/REHAB: Continue PT/OT Prophylaxis: Continue GI and DVT prophylaxis Code Status: Full Resuscitation Disposition: per primary team Total critical care time: 35 minutes excluding procedures GABE VAIL NP May 01, 2025 14:59
--- NOTE | 2025-05-01 15:07 | NUR ---
1130 DOSE OF INSULIN NOT GIVEN. NEXT DOSE TOO SOON.
--- NOTE | 2025-05-01 15:15 | HMCIMG ---
EXAM: CR Chest, 1 View. CLINICAL HISTORY: SOB COMPARISON: Radiograph dated April 26, 2025 FINDINGS: LUNGS: There is no mass, infiltrate, or acute pulmonary abnormality. Mild bibasilar airspace disease may reflect atelectasis. PLEURAL SPACES: No evidence of pleural effusion or pneumothorax. MEDIASTINUM: Mild cardiomegaly, and central pulmonary vascular congestion. BONES: No aggressive appearing osseous lesion seen. IMPRESSION: 1. No acute pulmonary findings. 2. Mild cardiomegaly and central pulmonary vascular congestion. /Fossil
[2025-05-01] MEDS: IMMUNE GLOBULIN GAMMA 10% IV SCH (16:18)
--- NOTE | 2025-05-01 16:25 | NUR ---
IGG INFUSION STARTED. SEE VITALS SHEET FOR PREINFUSION VITALS.
--- NOTE | 2025-05-01 18:44 | PN ---
endocrinology progress note Date of Service: May 01, 2025 subjective: glucose are elevated and on steroids again. also on ivig hba1c 9.2, home regimen: lantus 30 units daily and humalog 10 units tid before meals. patient glucose are stable. off iv steroid MTP. PAST MEDICAL HISTORY: [undiagnosed obstructive sleep apnea, diabetes type 2, hypertension, hyperlipidemia, hypothyroidism, restless leg syndrome, anxiety disorder,depression, lupus and severe morbid obesity ] PAST SURGICAL HISTORY: [ Cholecystectomy, tubal ligation] PAST SOCIAL HISTORY: [ Patient lives with . Patient denies alcohol tobacco and recreational drug use] FAMILY HISTORY: [ Hypertension, diabetes, cardiovascular disease and Alzheimer's disease ] Coded Allergies: No Known Allergies (Unverified Allergy, Unknown, 08/26/14) ASSESSMENT: hyperglycemia due to uncontrolled dm-2 and on steroids now again. glucose are elevated hba1c 9.2, home regimen: lantus 30 units daily and humalog 10 units tid before meals. Intractable low back pain POA Acute thrombocytopenia POA Acute urinary tract infection POA Chronic anemia POA Hyponatremia POA Acute kidney injury on renal insufficiency POA Hypocalcemia POA Cirrhotic liver with splenomegaly consistent with portal hypertension per CT POA Renal parenchymal disease per CT POA Hypothyroidism POA Hyperlipidemia POA Hypertension POA Anxiety disorder POA Depression POA Restless leg syndrome POA Suspected obstructive sleep apnea untreated POA Morbid obesity POA PLAN: increase lantus to 50 units daily hyperglycemia. increase regular insulin to 15 units qac before meals continue high dose ssi monitor glucose qx6 hourly Vitals/Labs Vital Signs Date Time Temp Pulse Resp B/P (MAP) Pulse Ox O2 Delivery O2 Flow Rate FiO2 05/01/25 18:10 97.5 71 16 154/72 91 Room Air 0.0 05/01/25 16:00 21 Laboratory Tests 05/01/25 05:30 Medications Current Medications Sodium Chloride 1,000 ml @ 0 mls/hr ONCE ONCE IV Last administered on 04/22/25at 17:27; Start 04/22/25 at 17:00; Stop 04/22/25 at 17:01; Status DC Ceftriaxone Sodium 1 gm ONCE ONCE IVPB Last administered on 04/22/25at 19:43; Start 04/22/25 at 19:00; Stop 04/22/25 at 19:01; Status DC Acetaminophen 650 mg Q6H PRN PO Last administered on 04/23/25at 10:02; Start 04/22/25 at 20:00; Stop 05/22/25 at 19:59 Acetaminophen 650 mg Q4H PRN PO Last administered on 04/30/25at 06:17; Start 04/22/25 at 20:00; Stop 05/22/25 at 19:59 Ondansetron HCl 4 mg Q6H PRN IV Last administered on 04/22/25at 20:10; Start 04/22/25 at 20:00; Stop 05/22/25 at 19:59 Famotidine 20 mg DAILY PO Last administered on 04/23/25at 09:33; Start 04/23/25 at 09:00; Stop 04/24/25 at 09:48; Status DC Ceftriaxone Sodium 1 gm/ Sodium Chloride 50 ml @ 100 mls/hr BID IV; Start 04/22/25 at 21:00; Stop 04/22/25 at 19:59; Status DC Lactated Ringer's 1,000 ml @ 100 mls/hr Q10H IV Last administered on 04/23/25at 06:00; Start 04/22/25 at 20:00; Stop 04/23/25 at 10:09; Status DC Insulin Human Regular INSULIN SLIDING SCAL... ACHS SQ Last administered on 04/24/25at 11:18; Start 04/22/25 at 21:00; Stop 04/24/25 at 16:16; Status DC Dextrose 50 ml AD PRN IV; Start 04/22/25 at 20:00; Stop 05/22/25 at 19:59 Glucagon 1 mg AD PRN IM; Start 04/22/25 at 20:00; Stop 05/22/25 at 19:59 Magnesium Sulfate 50 ml @ 0 mls/hr PROTOCOL PRN IV; Start 04/22/25 at 20:00; Stop 05/22/25 at 19:59 Potassium Chloride 100 ml @ 100 mls/hr AD PRN IV; Start 04/22/25 at 20:00; Stop 05/22/25 at 19:59 Potassium Chloride 20 meq AD PRN PO; Start 04/22/25 at 20:00; Stop 05/22/25 at 19:59 Potassium Chloride 20 meq AD PRN PO; Start 04/22/25 at 20:00; Stop 05/22/25 at 19:59 Ceftriaxone Sodium 1 gm BID IVPB; Start 04/22/25 at 21:00; Stop 04/22/25 at 20:44; Status DC Morphine Sulfate 4 mg ONCE ONCE IVP Last administered on 04/22/25at 20:11; Start 04/22/25 at 20:30; Stop 04/22/25 at 20:31; Status DC Lidocaine 1 each ONCE ONCE TP Last administered on 04/22/25at 21:14; Start 04/22/25 at 21:00; Stop 04/22/25 at 21:01; Status DC Ceftriaxone Sodium 1 gm BID IVPB Last administered on 04/25/25at 09:44; Start 04/23/25 at 09:00; Stop 04/25/25 at 12:36; Status DC Methylprednisolone Sodium Succinate 125 mg Q6H IVP Last administered on 04/25/25at 09:45; Start 04/23/25 at 08:00; Stop 04/28/25 at 09:10; Status DC Albuterol Sulfate 1.25 ONCE ONCE IH Last administered on 04/23/25at 09:40; Start 04/23/25 at 09:30; Stop 04/23/25 at 09:31; Status DC Calcium Gluconate 1 gm ONCE ONCE IV Last administered on 04/23/25at 10:55; Start 04/23/25 at 10:30; Stop 04/23/25 at 10:31; Status DC Sodium Chloride 50 ml @ 0 mls/hr ONCE ONCE IV Last administered on 04/23/25at 11:00; Start 04/23/25 at 11:00; Stop 04/23/25 at 11:01; Status DC Sodium Zirconium Cyclosilicate 10 gm ONCE ONCE PO Last administered on 04/23/25at 14:14; Start 04/23/25 at 14:00; Stop 04/23/25 at 16:08; Status DC Hydromorphone HCl 0.5 mg Q6H PRN IVP Last administered on 04/25/25at 04:14; Start 04/23/25 at 14:00; Stop 04/25/25 at 08:25; Status DC Sodium Zirconium Cyclosilicate 10 gm TID PO; Start 04/23/25 at 21:00; Stop 04/23/25 at 14:11; Status DC Pantoprazole Sodium 40 mg DAILY IVP Last administered on 05/01/25at 09:53; Start 04/24/25 at 10:00; Stop 05/24/25 at 09:59 Pregabalin 75 mg BID PO; Start 04/24/25 at 21:00; Stop 04/24/25 at 14:49; Status DC Vancomycin HCl 1 each AD IV; Start 04/24/25 at 10:30; Stop 04/25/25 at 12:36; Status DC Vancomycin HCl 500 ml @ 250 mls/hr ONCE ONCE IV Last administered on 04/24/25at 12:46; Start 04/24/25 at 11:00; Stop 04/24/25 at 12:59; Status DC Vancomycin HCl 250 ml @ 125 mls/hr Q12H IV Last administered on 04/25/25at 11:43; Start 04/24/25 at 23:00; Stop 04/25/25 at 12:36; Status DC Insulin Glargine 10 units HS SQ; Start 04/24/25 at 21:00; Stop 04/24/25 at 16:57; Status DC Insulin Glargine 10 units ONCE STAT SQ Last administered on 04/24/25at 11:19; Start 04/24/25 at 10:54; Stop 04/24/25 at 11:00; Status DC Atorvastatin Calcium 20 mg HS PO Last administered on 04/30/25at 20:39; Start 04/24/25 at 21:00; Stop 05/24/25 at 20:59 Gabapentin 300 mg BID PO Last administered on 04/25/25at 21:51; Start 04/24/25 at 21:00; Stop 04/28/25 at 09:10; Status DC Levothyroxine Sodium 125 mcg DAILY@0630 PO Last administered on 05/01/25at 06:36; Start 04/25/25 at 06:30; Stop 05/25/25 at 06:29 Metoprolol Succinate 50 mg AM PO Last administered on 05/01/25at 09:53; Start 04/25/25 at 09:00; Stop 05/25/25 at 08:59 Venlafaxine HCl 37.5 mg DAILY PO; Start 04/25/25 at 09:00; Stop 04/24/25 at 14:50; Status DC Pramipexole Dihydrochloride 0.5 mg HS PO Last administered on 04/30/25at 20:39; Start 04/24/25 at 21:00; Stop 05/24/25 at 20:59 Venlafaxine HCl 37.5 mg DAILY PO Last administered on 05/01/25at 09:53; Start 04/24/25 at 16:00; Stop 05/24/25 at 15:59 Insulin Human Regular INSULIN SLIDING SCAL... ACHS SQ Last administered on 04/25/25at 11:57; Start 04/24/25 at 16:30; Stop 04/25/25 at 14:09; Status DC Insulin Glargine 15 units HS SQ; Start 04/24/25 at 21:00; Stop 04/24/25 at 17:06; Status DC Insulin Human Regular 5 unit TIDAC SQ; Start 04/24/25 at 17:00; Stop 04/24/25 at 17:06; Status DC Insulin Glargine 30 units ONCE SQ Last administered on 04/24/25at 18:16; Start 04/24/25 at 17:00; Stop 04/25/25 at 06:19; Status DC Insulin Human Regular 10 unit TIDAC SQ Last administered on 04/25/25at 06:15; Start 04/24/25 at 17:00; Stop 04/25/25 at 06:17; Status DC Tramadol HCl 50 mg Q6H PRN PO Last administered on 04/28/25at 13:55; Start 04/24/25 at 22:30; Stop 04/29/25 at 22:29; Status DC Insulin Human Regular 25 unit TIDAC SQ Last administered on 04/25/25at 17:39; Start 04/25/25 at 07:30; Stop 04/26/25 at 07:58; Status DC Insulin Glargine 70 units ONCE ONCE SQ Last administered on 04/25/25at 06:27; Start 04/25/25 at 06:30; Stop 04/25/25 at 06:31; Status DC Hydromorphone HCl 0.5 mg BIDPRN PRN IVP Last administered on 04/29/25at 23:31; Start 04/25/25 at 19:00; Stop 04/30/25 at 11:59; Status DC Heparin Sodium (Porcine) 5,000 unit Q8H SQ; Start 04/25/25 at 09:00; Stop 04/25/25 at 08:40; Status DC Lactulose 30 gm TID PO Last administered on 04/30/25at 09:16; Start 04/25/25 at 11:00; Stop 04/30/25 at 09:45; Status DC Sodium Chloride 500 ml @ 0 mls/hr Q0M IV; Start 04/25/25 at 11:00; Stop 05/25/25 at 10:59 Trimethoprim/ Sulfamethoxazole 1 tab BID PO Last administered on 04/25/25at 21:51; Start 04/25/25 at 21:00; Stop 04/26/25 at 14:50; Status DC Insulin Human Regular INSULIN SLIDING SCAL... ACHS SQ Last administered on 05/01/25at 15:40; Start 04/25/25 at 16:30; Stop 05/25/25 at 16:29 Diazepam 10 mg ONCE ONCE IM; Start 04/25/25 at 15:00; Stop 04/25/25 at 15:01; Status DC Lactulose 200 gm ONCE ONCE WA Last administered on 04/25/25at 17:30; Start 04/25/25 at 16:30; Stop 04/25/25 at 16:31; Status DC Lorazepam 0.5 mg ONCE ONCE PO Last administered on 04/25/25at 19:07; Start 04/25/25 at 19:00; Stop 04/25/25 at 19:01; Status DC Haloperidol Lactate 1 mg ONCE ONCE IM Last administered on 04/26/25at 05:17; Start 04/26/25 at 05:00; Stop 04/26/25 at 05:02; Status DC Insulin Human Regular 15 unit TIDAC SQ; Start 04/26/25 at 11:30; Stop 04/27/25 at 20:30; Status DC Insulin Glargine 50 units DAILY SQ Last administered on 04/28/25at 08:46; Start 04/26/25 at 09:00; Stop 04/29/25 at 06:49; Status DC Dextrose 1,000 ml @ 75 mls/hr [id number] IV Last administered on 04/29/25at 04:27; Start 04/26/25 at 12:00; Stop 04/30/25 at 09:36; Status DC Dexmedetomidine/ Sodium Chloride 200 mcg PROTOCOL IV; Start 04/26/25 at 12:00; Stop 04/26/25 at 14:54; Status DC Dexmedetomidine/ Sodium Chloride 400 mcg STK-MED ONCE IV; Start 04/26/25 at 14:49; Stop 04/26/25 at 14:50; Status DC Vancomycin HCl 1 each AD IV; Start 04/26/25 at 15:00; Stop 05/10/25 at 14:59 Dexmedetomidine/ Sodium Chloride 400 mcg PROTOCOL STAT IV Last administered on 04/26/25at 15:18; Start 04/26/25 at 14:53; Stop 04/26/25 at 14:58; Status DC Vancomycin HCl 250 ml @ 125 mls/hr Q12H IV Last administered on 04/27/25at 15:22; Start 04/26/25 at 15:30; Stop 04/28/25 at 03:13; Status DC Dexmedetomidine/ Sodium Chloride 400 mcg PROTOCOL PRN IV Last administered on 04/27/25at 23:31; Start 04/26/25 at 19:30; Stop 05/01/25 at 12:45; Status DC Dexmedetomidine/ Sodium Chloride 400 mcg STK-MED ONCE IV Last administered on 04/26/25at 19:14; Start 04/26/25 at 19:10; Stop 04/26/25 at 19:11; Status DC Insulin Human Regular INSULIN SLIDING SCAL... Q4H SQ Last administered on 04/28/25at 06:00; Start 04/27/25 at 20:30; Stop 04/28/25 at 09:11; Status DC Vancomycin HCl 250 ml @ 125 mls/hr Q12H IV; Start 04/28/25 at 15:30; Stop 04/28/25 at 18:53; Status DC Insulin Human Regular 8 unit TIDAC SQ Last administered on 04/30/25at 06:15; Start 04/28/25 at 07:30; Stop 04/30/25 at 07:31; Status DC Vancomycin HCl 250 ml @ 125 mls/hr Q12H IV Last administered on 05/01/25at 06:36; Start 04/28/25 at 20:00; Stop 05/08/25 at 19:59 Insulin Glargine 40 units DAILY SQ; Start 04/29/25 at 09:00; Stop 04/30/25 at 07:31; Status DC Lidocaine HCl 50 ml STK-MED ONCE .ROUTE; Start 04/29/25 at 16:03; Stop 04/29/25 at 16:06; Status DC Heparin Sodium/ Sodium Chloride 500 ml @ As Directed STK-MED ONCE IV; Start 04/29/25 at 16:03; Stop 04/29/25 at 16:06; Status DC Iodixanol 100 ml STK-MED ONCE .ROUTE; Start 04/29/25 at 16:04; Stop 04/29/25 at 16:06; Status DC Fentanyl Citrate 100 mcg STK-MED ONCE .ROUTE; Start 04/29/25 at 16:27; Stop 04/29/25 at 16:28; Status DC Midazolam HCl 2 mg STK-MED ONCE .ROUTE; Start 04/29/25 at 16:28; Stop 04/29/25 at 16:28; Status DC Midazolam HCl 2 mg STK-MED ONCE .ROUTE; Start 04/29/25 at 16:52; Stop 04/29/25 at 16:52; Status DC Lidocaine 1 each ONCE ONCE TP Last administered on 04/29/25at 19:18; Start 04/29/25 at 18:30; Stop 04/29/25 at 18:33; Status DC Insulin Glargine 50 units DAILY SQ Last administered on 05/01/25at 10:00; Start 04/30/25 at 09:00; Stop 05/30/25 at 08:59 Insulin Human Regular 12 unit TIDAC SQ Last administered on 05/01/25at 15:41; Start 04/30/25 at 07:30; Stop 05/30/25 at 07:29 Hydromorphone HCl 1 mg TIDP PRN IVP Last administered on 04/30/25at 20:44; Start 04/30/25 at 13:00; Stop 05/05/25 at 12:59 Acetaminophen/ Hydrocodone Bitart 1 tab Q4H PRN PO Last administered on 04/30/25at 22:07; Start 04/30/25 at 12:00; Stop 05/05/25 at 11:59 Pharmacy Profile Note 1 each ONCE MISC; Start 05/01/25 at 08:00; Stop 04/30/25 at 16:52; Status DC Immune Globulin 400 ml @ 0 mls/hr Q24H IV Last administered on 05/01/25at 16:18; Start 05/01/25 at 14:00; Stop 05/03/25 at 14:01 Pregabalin 25 mg BID PO; Start 05/01/25 at 21:00; Stop 05/31/25 at 20:59 Lisinopril 10 mg DAILY PO; Start 05/02/25 at 09:00; Stop 06/01/25 at 08:59 Diphenhydramine HCl 25 mg ONCE PRN IVP; Start 05/01/25 at 15:00; Stop 05/01/25 at 15:06; Status DC Dexamethasone Sodium Phosphate 20 mg ONCE PRN IV; Start 05/01/25 at 15:00; Stop 05/01/25 at 15:05; Status DC Dexamethasone Sodium Phosphate 20 mg ONCALL IV Last administered on 05/01/25at 15:34; Start 05/01/25 at 15:30; Stop 05/03/25 at 15:31 Diphenhydramine HCl 25 mg ONCALL IVP Last administered on 05/01/25at 15:35; Start 05/01/25 at 15:30; Stop 05/03/25 at 15:31 PARAG VANG MD May 01, 2025 18:44
[2025-05-01 19:22] LABS: INR 1.57 (0.85-1.15)
[2025-05-02] VITALS (16 sets, daily range): BP systolic 133–157; BP diastolic 58–81; PULSE 57–72; RESP 12–24; TEMP 97.2–98.3; O2SAT 95–99
[2025-05-02 06:25] LABS: IMMATURE GRANULOCYTE ABSOLUTE 0.07 K/uL (0-1); NUCLEATED RED BLOOD CELLS 0.0 % (0.0-0.19); PLATELET COUNT (AUTO) 32 K/uL (130-400); RED BLOOD CELL COUNT(AUTO) 3.49 MIL/uL (4.00-5.50); RED CELL DISTRIBUTION WIDTH 21.6 % (11.0-15.5); WHITE BLOOD COUNT (AUTO) 5.7 K/uL (4.8-10.8)
[2025-05-02 06:42] LABS: INR 1.45 (0.85-1.15)
[2025-05-02 06:52] LABS: CREATININE 1.1 mg/dL (0.5-1.0); GLOMERULAR FILTR. RATE CALC 59.0 mL/min (>90); GLUCOSE,RANDOM 226.0 mg/dL (70-105); SODIUM SERUM 138.0 mmol/L (136-145); UREA NITROGEN, BLOOD 36.0 mg/dL (7-18)
--- NOTE | 2025-05-02 09:28 | PN ---
LOCATION: 314. SUBJECTIVE: The patient is doing better. She apparently sat up briefly yesterday. She is awake, alert. Pain seems to be controlled. REVIEW OF SYSTEMS: Improved. PHYSICAL EXAMINATION: GENERAL: Morbidly obese woman. VITAL SIGNS: Blood pressure 133/72, pulse 60, respirations 20. CHEST: Clear. ABDOMEN: Soft. EXTREMITIES: Show no edema. NEUROLOGIC: Alert and oriented. LABORATORY DATA: Reviewed. Her last platelets were 32,000. IMPRESSION: * ITP, starting IgG therapy yesterday. * MRSA bacteremia. Concern for endocarditis. * Acute hypoxic respiratory failure. * Encephalopathy. * Hepatic cirrhosis of the liver. * Lupus. * Hydronephrosis. * Thrombocytopenia. * Anemia. * Diabetes. * Portal hypertension. * Obesity. * Hypertension. PLAN: Continue full supportive care, antibiotics, IgG, daily blood counts. The patient is actually improved. TID: [id number] RECEIPT: [id number]
--- NOTE | 2025-05-02 09:31 | PN ---
SUBJECTIVE: A 54-year-old female with a history of systemic lupus erythematosus. The patient presents to the hospital with persistent bacteremia. The patient's workup consistent with the osteomyelitis. She has had acute on chronic renal dysfunction in the hospital and the patient's creatinine continues to be stable. The patient remains on the IV antibiotics and the patient is being seen as a followup visit for all of the above. REVIEW OF SYSTEMS: GENERAL: Complains of pain. HEENT: No change in vision. No change in hearing. CARDIOVASCULAR: There is no current chest pain or palpitations. PULMONARY: Coarse with equal thoracic movements. ABDOMEN: Soft, nondistended, and nontender. EXTREMITIES: Reveal no clubbing, no cyanosis. NEUROLOGICAL: She is awake. She is at her baseline. LABORATORY DATA: Hemoglobin 8.9, hematocrit 28, white cell count 5000. BUN 36 and creatinine is 1. IMPRESSION: * Acute renal failure. * Persistent bacteremia. * Diabetes mellitus. * Hypertension. * History of thrombocytopenia PLAN: The patient's renal function remains fairly stable. The patient with persistent bacteremia and remains on the antibiotics. The patient is being seen by cardiology. We will continue to follow closely. Electrolytes have all been aggressively repleted. We will follow closely. TID: [id number] RECEIPT: [id number]
[2025-05-02] MEDS: LISINOPRIL 10 MG TABLET PO SCH (10:20)
[2025-05-02] MEDS: PoTASSium chloRIDE 20MEQ ER 20 MEQ ERTAB PO PRN (11:18)
--- NOTE | 2025-05-02 11:38 | HMCIMG ---
EXAM: CR Chest, 2 View. CLINICAL HISTORY: verify picc placement COMPARISON: Radiograph from May 01, 2025 FINDINGS: Right PICC coursing cephalad likely terminating within the right internal jugular vein. Adjustment in repeat imaging to confirm optimal placement. Mild airspace disease within the bilateral perihilar and bibasilar region may reflect atelectasis. No pleural effusion or pneumothorax. Heart size is stable. Mild central pulmonary vascular congestion. IMPRESSION: 1. Right PICC line terminating in right internal jugular vein, requiring adjustment and follow-up imaging. 2. Mild bibasilar and perihilar airspace disease, likely atelectasis. 3. Mild central pulmonary vascular congestion. /[place]
--- NOTE | 2025-05-02 12:24 | PN ---
[facility] PROGRESS NOTE Date of Service: May 02, 2025 Time of Service: 11:59 SUBJECTIVE: This is a 54-year-old female with past medical history of undiagnosed obstructive sleep apnea, diabetes type 2, hypertension, hyperlipidemia, hypothyroidism, restless leg syndrome, anxiety disorder,depression, lupus and severe morbid obesity who presents to the ED for complaints of severe low back pain which started 2 weeks ago and getting worse for the past 2 days and patient reports she is taking prednisone 30mg po daily for her Lupus she said.Patient also reports she was recently seen in this ED for similar complaints and was diagnosed with acute lumbosacral myofascial strain. and patient was given pain meds and discharged home and came again today due to pain intensity is so severe and intolerable.Patient also reports that her whole body hurts more on muscle pain she said.Patient also reports she has muscle pain on her chest and it reproducible on light palpation.Patient also states she vomited x 1 today .Patient denies any injury,trauma and fall.Patient also reports that she is on her monthly period today and it is her first day.patient also states that is her qc tech and her last seen him last year and that she has insurance problem reason she was unable to keep her follow up. Urinalysis consistent with urinary tract infection. CT abdomen and pelvis result revealed no acute intra-abdominal or pelvic pathology cirrhotic liver morphology with splenomegaly, consistent with portal hypertension. Bilateral renal cortical thickening may reflect renal parenchymal disease. While in the ER patient received Rocephin 1 g IV, 1 L NS bolus. We will admit patient for further medical management. 04/23/25 Patient was seen and examined at bedside. She was complaining of chest pain early in the morning but her EKG and troponin were normal. Patient says she got liver cirrhosis from taking Tylenol with codeine in the past for a long time. Remarkable labs are Na 129, K 6.4. Cl 98, BUN 44. Cr 1.2 with no anion gap. New EKG shows sinus rhythm with no tall T-waves or shortened QT interval. We will give her a dose of calcium gluconate and lokelma and recheck her labs. we will hold her iv fluids for now. Her urine anion gap is 36.0 mEq/l. Repeat potassium was 4.2 and 4.6. We will order CT lumbar spine and request nephro and cardio consults due to hyponatremia, RTA and cirrhosis with portal hypertension respectively. We will order lupus, complement , anemia panel due to her abnormal labs and h/o SLE. Hematology recommended solu medrol 125 q6. she might need hydrochloroquine upon discharge for SLE 04/24/25 Patient was seen and examined at bedside. She is complaining of widespread generalized body pain with tender points and generalized weakness, her CPK is going up, we will repeat it and start her on pregabalin. Her labs are improving. She had an EGD done last year that showed grade III varices but lost to follow up with TDS. No GI intervention as her Hb is stable. Will start her on vancomycin. Her home meds have been reconciled. She takes venlaflaxine and pramipexole for depression and restless leg syndrome respectively. Her elevated urine anion gap could be due to BALTAZAR or NSAID induced kidney injury but her creatinine is improving. Pending abdominal ultrasound and CT lumbar spine re sults. 04/25/25 Patient was seen and examined. She was observed sitting in a chair but was unable to answer questions appropriately and appeared confused. Ammonia level was elevated at 59; lactulose has been initiated at 30 mL TID. She is currently receiving vancomycin for MRSA identified in the urine. Right upper quadrant ultrasound demonstrated chronic hepatic changes with a hypoechoic lesion in the right lobe of the liver, possibly representing a complex cyst. CT of the lumbar spine revealed moderate lumbar spondylosis and diffuse osteopenia. Her platelet count is 37 and showing slow improvement. Dr. Urias, covering for Dr. Lorenzo, recommended holding solu-medrol for now. If platelet count declines tomorrow, steroids may need to be restarted. Ammonia and additional labs will be rechecked in the morning. 04/26/25 Patient was seen at bedside. Will request a transfer to the ICU due to worsening agitation and hypercapnic respiratory failure requiring BIPAP support.Will order Precedex drip for sedation to improve tolerance of non-invasive ventilation. Imaging studies including CT head and MRI spine have been ordered to evaluate for underlying neurologic causes. Patient remains hemodynamically stable; pulmonary consult is in place. She is growing gram positive cocci in clusters in her blood, will request ID input on antibiotics as she was on vancomycin previously and was started on bactrim for MRSA in urine. Her platelet count is 36 and solu-medrol is on hold. Ammonia improved from 59 to 12 04/27/25 Patient was evaluated at bedside. She was transferred to the ICU yesterday due to agitation and hypercapnia, requiring a Precedex drip as she was removing her nasal cannula. BiPAP was initiated to support ventilation, and she is now resting comfortably. CT brain was unremarkable with no acute findings. She has a free water deficit of approximately 1.4 liters, for which D5W will be administered. CRP has decreased from 83.5 to 56.4. However, platelets have dropped from 36 to 28, and hematology is closely monitoring her. The patient remains NPO. We wanted to start NG tube feeding but patient has h/o esophageal varices. We will await gastroenterologys recommendations, including possible EGD if indicated. 04/28/25 Patient was evaluated at bedside, she is bed bound not very responsive to questions. She is currently off BiPAP and precedex drip. Her agitation has improved and she is resting comfortably in bed. She has MRSA bacteremia and we will repeat blood cultures. She is currently on vancomycin. She has moderate right hydronephrosis which is increasing, we will request urology consult. Her sodium is trending upwards from 147 to 152 and she has a free water deficit of 2.4 L , we will increase D5 rate from 75 to 150mls/hr. CRP improving from 56.4 to 42.7. Platelets dropped from 28 to 21, we will follow Dr. Lorenzo's recommendations and his plan is give her IgG. She is not bleeding actively. 04/29/25 Patient was evaluated at bedside. She is alert, awake and oriented. She was minimally verbal yesterday but is now more interactive, expressing pain and discussing her medical history. She reports diffuse joint pain and is unable to lift her arms or legs due to significant discomfort. She has generalized joint tenderness and weak avionic technician strength bilaterally. urologist Dr. Colin recommended nephrostomy tube on her right due to hydronephrosis. Her platelets improved to 44 without any intervention. She will be getting platelets for the procedure. She has infectious spondylodiscitis which could be the source of her bacteremia. We have requested transfer to [facility] but [place] oiler said Dr. Sanchez has privileges at [facility] and will try to consult him. Her white count went up to 12.2, LFTs mildly going up. We will hold off on gabapentin for now. 04/30/25 Patient was evaluated at bedside. She is alert, awake and oriented. Her vitals are stable. She is interactive, expressing pain and discussing her medical history. She reports diffuse joint pain and is able to lift her arms or legs slightly due to pain and discomfort. Her active and passive range of motions are limited. She has generalized joint tenderness and weak avionic technician strength bilaterally. She also passed stool more than 5 times yesterday could be due to lactulose which has been stopped from today. A Percutaneous fluroscopy-guided placement of an 8-F nephrostomy catheter was performed,the patient tolerated the procedure well. Neurosurgeon Dr. Sanchez saw the patient and came up with possible diagnosis of discitis and osteomyelitis at L2-L3 along with psoas inflammation. She has spondylolisthesis which is non- critical and can be managed medically for now. According to Dr. Lorenzo she will benefit from IVIg for 3 days on the background of possible ITP. Her current platelet is 41 and Hgb 9.6. Also, Endocrinology team adjusted Insulin regimen. We have requested cardiology consult for suspected endocarditis and will request RAMAN although she has thrombocytopenia and h/o esophageal varices. 05/01/25 Patient was evaluated at bedside. She is alert, awake and oriented. Her vitals are stable, except blood pressure which is 158/80. She reports diffuse joint pain and is able to lift her arms or legs slightly due to pain and discomfort. Her active and passive range of motions are limited. She has generalized joint tenderness and weak avionic technician strength bilaterally. As per Dr. Lorenzo she will be started IVIG from today for 3 days. As per the Cardiology, she won't undergo RAMAN due thrombocytopenia, cirrhosis, varices. We will continue IV antibiotics and add low dose pregabalin for her pain. 05/02/25 Patient was evaluated at bedside. She is alert, awake and oriented. Her vitals are stable, except blood pressure which is 157/81. Labs showed WBC decreasing from 11.6 to 5.7, platelets from 44 to 32 and random glucose of 226. There has been marked decline in pain. We will continue IV antibiotics and she is receiving Immune globulin every 24 hr. Her Insulin dosage has been adjusted. Blood culture showed gram positive cocci in clusters, STAPHYLOCOCCUS AUREUS. Her prognosis remains guarded. Plan is to discharge her to [facility] for 6 weeks of IV antibiotics. REVIEW OF SYSTEMS CONSTITUTIONAL: No fever, chills, or night sweats. NEUROLOGICAL: Denies headache, sensory and motor deficit. CARDIOVASCULAR: Denies any exertional angina, dyspnea on exertion, orthopnea, paroxysmal nocturnal dyspnea, palpitations. PULMONARY: Denies any shortness of breath, cough, phlegm/sputum, hemoptysis, pleuritic chest pain. GASTROINTESTINAL: Denies nausea, vomiting, abdominal pain. GENITOURINARY: Denies frequency, urgency, nocturia, hematuria or incontinence. PHYSICAL EXAM GENERAL APPEARANCE: The patient is alert, awake and oriented and bedbound NEUROLOGICAL: No sensory and motor deficits. CHEST: Normal chest expansion. LUNGS: Absence of any rales, rhonchi or any wheezing. CARDIOVASCULAR: Regular. S1 and S2 normal. No appreciable rubs, murmurs or gallops. ABDOMEN: Soft nontender, and nondistended. There is no rebound, voluntary guarding, or rigidity. GENITOURINARY: S/P day 3, Nephrostomy tube on the right side Vital Signs (last 8hr) Date Time Temp Pulse Resp B/P (MAP) Pulse Ox O2 Delivery O2 Flow Rate FiO2 05/02/25 08:00 97.7 57 17 157/81 96 Room Air 05/02/25 06:50 18 N/A Room Air 21 05/02/25 04:00 97.5 60 20 133/72 98 Room Air LABS: Laboratory: Test 05/02/25 11:44 05/02/25 06:08 05/01/25 15:15 05/01/25 08:30 Range/Units Whole Blood Glucose 213 H 70-110 MG/DL White Blood Count 5.7 4.8-10.8 K/uL Red Blood Count 3.49 L 4.00-5.50 MIL/uL Hemoglobin 8.9 L 12.0-16.0 g/dL Hematocrit 28.0 L 36-48 % Mean Corpuscular Volume 80.2 79-99 fL Mean Corpuscular Hemoglobin 25.5 L 27.0-33.0 pg Mean Corpuscular Hemoglobin Concent 31.8 L 32.0-36.0 g/dL Red Cell Distribution Width 21.6 H 11.0-15.5 % Platelet Count 32 #L 130-400 K/uL Mean Platelet Volume 7.5-10.5 fL Immature Granulocyte % (Auto) 1.2 H 0-1 % Neutrophils (%) (Auto) 92.4 H 40.0-77.0 % Lymphocytes (%) (Auto) 3.8 L 21.0-51.0 % Monocytes (%) (Auto) 2.4 L 3.0-13.0 % Eosinophils (%) (Auto) 0.0 0.0-8.0 % Basophils (%) (Auto) 0.2 0.0-5.0 % Neutrophils # (Auto) 5.3 1.8-7.7 K/uL Lymphocytes # (Auto) 0.2 L 1.0-4.8 K/uL Monocytes # (Auto) 0.1 0.1-1.0 K/uL Eosinophils # (Auto) 0.00 0.00-0.70 K/uL Basophils # (Auto) 0.01 0.00-0.20 K/uL Absolute Immature Granulocyte (auto 0.07 0-1 K/uL Nucleated Red Blood Cells 0.0 0.0-0.19 % Prothrombin Time 14.8 H 9.6-11.6 SEC Prothromb Time International Ratio 1.45 H 0.85-1.15 Activated Partial Thromboplast Time 33.9 26.3-35.5 SEC Sodium Level 138 136-145 mmol/L Potassium Level 3.5 3.5-5.1 mmol/L Chloride Level 105 101-111 mmol/L Carbon Dioxide Level 28 21-32 mmol/L Blood Urea Nitrogen 36 H 7-18 mg/dL Creatinine 1.1 H 0.5-1.0 mg/dL Glomerular Filtration Rate Calc 59 >90 mL/min Random Glucose 226 H 70-105 mg/dL Total Calcium 8.0 L 8.5-10.1 mg/dL Ammonia 29 11-32 umol/L Bedside Glucose Comment Notified Nurse Blood Gas Specimen Type Arterial Arterial Blood pH 7.371 7.350-7.450 Arterial Blood Partial Pressure CO2 43 32-45 mmHg Arterial Blood Partial Pressure O2 70.6 L 83.0-108.0 mmHg Arterial Blood HCO3 24.6 21.0-28.0 mmol/L Arterial Blood Oxygen Saturation 93.8 L 94.0-98.0 % Arterial Blood Base Excess -0.8 -2.0-3.0 mmol/L Blood Gas Temperature 37.0 35.5-37.0 CELSIUS Blood Gas Vent Mode RA ROOM AIR FiO2 21.0 % Blood Gas Specimen Comment LR MAYUR FERNANDEZ Test 05/01/25 05:30 Range/Units Total Bilirubin 2.8 H 0.2-1.0 mg/dL Aspartate Amino Transf (AST/SGOT) 91 H 10-37 U/L Alanine Aminotransferase (ALT/SGPT) 80 H 12-78 U/L Alkaline Phosphatase 281 H 50-136 U/L C-Reactive Protein, Quantitative 105.50 H 0.5-3.0 mg/L Total Protein 7.4 6.0-8.3 g/dL Albumin 1.8 L 3.5-5.0 g/dL Current Medications Medications (Trade) Dose Ordered Sig/Roberth Route PRN Reason Start Time Stop Time Status Last Admin Dose Admin Acetaminophen (TYLenol 325MG TAB) 650 mg Q4H PRN PO MILD PAIN (1-3) 04/22/25 20:00 05/22/25 19:59 04/30/25 06:17 650 MG Acetaminophen (TYLenol 325MG TAB) 650 mg Q6H PRN PO TEMPERATURE GREATER THAN 101.5 04/22/25 20:00 05/22/25 19:59 04/23/25 10:02 650 MG Acetaminophen/ Hydrocodone Bitart (NORco 5/325MG) 1 tab Q4H PRN PO MODERATE PAIN (4-6) 04/30/25 12:00 05/05/25 11:59 04/30/25 22:07 1 TAB Atorvastatin Calcium (LIPItor 20MG) 20 mg HS PO 04/24/25 21:00 05/24/25 20:59 05/01/25 21:48 20 MG Ceftriaxone Sodium 1 gm/ Sodium Chloride 50 ml @ 100 mls/hr BID IV 04/22/25 21:00 04/22/25 19:59 DC Ceftriaxone Sodium (ROCEphine 1G INJ) 1 gm BID IVPB 04/22/25 21:00 04/22/25 20:44 DC Ceftriaxone Sodium (ROCEphine 1G INJ) 1 gm BID IVPB 04/23/25 09:00 04/25/25 12:36 DC 04/25/25 09:44 1 GM Dexamethasone Sodium Phosphate (dexaMETHasone 4MG/ML 1ML VIAL) 20 mg ONCALL IV 05/01/25 15:30 05/03/25 15:31 05/01/25 15:34 20 MG Dexamethasone Sodium Phosphate (dexaMETHasone 4MG/ML 1ML VIAL) 20 mg ONCE PRN IV PRE-MED 05/01/25 15:00 05/01/25 15:05 DC Dexmedetomidine/ Sodium Chloride (PRECEdex 200MCG/ 50ML-NS) 200 mcg PROTOCOL IV 04/26/25 12:00 04/26/25 14:54 DC Dexmedetomidine/ Sodium Chloride (PRECEdex 400MCG/ 100ML-NS) 400 mcg PROTOCOL PRN IV ANXIETY/AGITATION 04/26/25 19:30 05/01/25 12:45 DC 04/27/25 23:31 400 MCG Dexmedetomidine/ Sodium Chloride (PRECEdex 400MCG/ 100ML-NS) 400 mcg PROTOCOL STAT IV 04/26/25 14:53 04/26/25 14:58 DC 04/26/25 15:18 400 MCG Dextrose 1,000 ml @ 75 mls/hr [id number] IV 04/26/25 12:00 04/30/25 09:36 DC 04/29/25 04:27 150 MLS/HR Dextrose (D50w) 50 ml AD PRN IV HYPOGLYCEMIA PROTOCOL 04/22/25 20:00 05/22/25 19:59 Diphenhydramine HCl (BENAdryl INJ) 25 mg ONCALL IVP 05/01/25 15:30 05/03/25 15:31 05/01/25 15:35 25 MG Diphenhydramine HCl (BENAdryl INJ) 25 mg ONCE PRN IVP PRE-MED 05/01/25 15:00 05/01/25 15:06 DC Famotidine (Pepcid 20mg Tab) 20 mg DAILY PO 04/23/25 09:00 04/24/25 09:48 DC 04/23/25 09:33 20 MG Gabapentin (NEURontin 300 MG CAP) 300 mg BID PO 04/24/25 21:00 04/28/25 09:10 DC 04/25/25 21:51 300 MG Glucagon (Glucagon 1mg Kit) 1 mg AD PRN IM HYPOGLYCEMIA PROTOCOL 04/22/25 20:00 05/22/25 19:59 Heparin Sodium (Porcine) (HEParin 5,000 UNIT VIAL) 5,000 unit Q8H SQ 04/25/25 09:00 04/25/25 08:40 DC Hydromorphone HCl (DiLAUDid 0.5MG INJ) 0.5 mg BIDPRN PRN IVP SEVERE PAIN (7-10) 04/25/25 19:00 04/30/25 11:59 DC 04/29/25 23:31 0.5 MG Hydromorphone HCl (DiLAUDid 0.5MG INJ) 0.5 mg Q6H PRN IVP SEVERE PAIN (7-10) 04/23/25 14:00 04/25/25 08:25 DC 04/25/25 04:14 0.5 MG Hydromorphone HCl (DiLAUDid 1MG INJ) 1 mg TID PRN IVP SEVERE PAIN (7-10) 05/01/25 19:00 05/05/25 12:59 Hydromorphone HCl (DiLAUDid 1MG INJ) 1 mg TIDP PRN IVP SEVERE PAIN (7-10) 04/30/25 13:00 05/01/25 18:46 DC 04/30/25 20:44 1 MG Immune Globulin 400 ml @ 0 mls/hr Q24H IV 05/01/25 14:00 05/03/25 14:01 05/01/25 16:18 37.5 MLS/HR Insulin Glargine (LANtus 100 UNITS/ML 10 ML VIAL) 10 units HS SQ 04/24/25 21:00 04/24/25 16:57 DC Insulin Glargine (LANtus 100 UNITS/ML 10 ML VIAL) 10 units ONCE STAT SQ 04/24/25 10:54 04/24/25 11:00 DC 04/24/25 11:19 10 UNITS Insulin Glargine (LANtus 100 UNITS/ML 10 ML VIAL) 15 units HS SQ 04/24/25 21:00 04/24/25 17:06 DC Insulin Glargine (LANtus 100 UNITS/ML 10 ML VIAL) 30 units ONCE SQ 04/24/25 17:00 04/25/25 06:19 DC 04/24/25 18:16 30 UNITS Insulin Glargine (LANtus 100 UNITS/ML 10 ML VIAL) 40 units DAILY SQ 04/29/25 09:00 04/30/25 07:31 DC Insulin Glargine (LANtus 100 UNITS/ML 10 ML VIAL) 50 units DAILY SQ 04/26/25 09:00 04/29/25 06:49 DC 04/28/25 08:46 50 UNITS Insulin Glargine (LANtus 100 UNITS/ML 10 ML VIAL) 50 units DAILY SQ 04/30/25 09:00 05/30/25 08:59 05/02/25 10:30 50 UNITS Insulin Human Regular (humuLIN R 100 UNIT/ML 3ML) 5 unit TIDAC SQ 04/24/25 17:00 04/24/25 17:06 DC Insulin Human Regular (humuLIN R 100 UNIT/ML 3ML) 8 unit TIDAC SQ 04/28/25 07:30 04/30/25 07:31 DC 04/30/25 06:15 8 UNIT Insulin Human Regular (humuLIN R 100 UNIT/ML 3ML) 10 unit TIDAC SQ 04/24/25 17:00 04/25/25 06:17 DC 04/25/25 06:15 10 UNIT Insulin Human Regular (humuLIN R 100 UNIT/ML 3ML) 12 unit TIDAC SQ 04/30/25 07:30 05/02/25 08:05 DC 05/02/25 06:45 12 UNIT Insulin Human Regular (humuLIN R 100 UNIT/ML 3ML) 15 unit TIDAC SQ 05/02/25 11:30 06/01/25 11:29 Insulin Human Regular (humuLIN R 100 UNIT/ML 3ML) 15 unit TIDAC SQ 04/26/25 11:30 04/27/25 20:30 DC Insulin Human Regular (humuLIN R 100 UNIT/ML 3ML) 25 unit TIDAC SQ 04/25/25 07:30 04/26/25 07:58 DC 04/25/25 17:39 25 UNIT Insulin Human Regular (humuLIN R 100 UNIT/ML 3ML) INSULIN SLIDING SCAL... ACHS SQ 04/22/25 21:00 04/24/25 16:16 DC 04/24/25 11:18 8 UNIT Insulin Human Regular (humuLIN R 100 UNIT/ML 3ML) INSULIN SLIDING SCAL... ACHS SQ 04/24/25 16:30 04/25/25 14:09 DC 04/25/25 11:57 16 UNIT Insulin Human Regular (humuLIN R 100 UNIT/ML 3ML) INSULIN SLIDING SCAL... ACHS SQ 04/25/25 16:30 05/25/25 16:29 05/02/25 06:44 8 UNIT Insulin Human Regular (humuLIN R 100 UNIT/ML 3ML) INSULIN SLIDING SCAL... Q4H SQ 04/27/25 20:30 04/28/25 09:11 DC 04/28/25 06:00 4 UNIT Lactated Ringer's 1,000 ml @ 100 mls/hr Q10H IV 04/22/25 20:00 04/23/25 10:09 DC 04/23/25 06:00 100 MLS/HR Lactulose (Constulose 20gm/ 30ml Udcup) 30 gm TID PO 04/25/25 11:00 04/30/25 09:45 DC 04/30/25 09:16 30 GM Levothyroxine Sodium (SYNTHroid 125MCG TAB) 125 mcg DAILY@0630 PO 04/25/25 06:30 05/25/25 06:29 05/02/25 06:38 125 MCG Lisinopril (Prinivil 10mg) 10 mg DAILY PO 05/02/25 09:00 06/01/25 08:59 05/02/25 10:20 10 MG Magnesium Sulfate 50 ml @ 0 mls/hr PROTOCOL PRN IV OTHER [SEE ORDER COMMENTS] 04/22/25 20:00 05/22/25 19:59 Methylprednisolone Sodium Succinate (Solu-medROL 125MG) 125 mg Q6H IVP 04/23/25 08:00 04/28/25 09:10 DC 04/25/25 09:45 125 MG Metoprolol Succinate (TopROL XL) 50 mg AM PO 04/25/25 09:00 05/25/25 08:59 05/02/25 10:20 50 MG Ondansetron HCl (zoFRAN 4MG INJ) 4 mg Q6H PRN IV NAUSEA/VOMITING 04/22/25 20:00 05/22/25 19:59 04/22/25 20:10 4 MG Pantoprazole Sodium (PROTonix 40MG INJ) 40 mg DAILY IVP 04/24/25 10:00 05/24/25 09:59 05/02/25 10:21 40 MG Pharmacy Profile Note (Pharmacy Communication) 1 each ONCE MISC 05/01/25 08:00 04/30/25 16:52 DC Potassium Chloride 100 ml @ 100 mls/hr AD PRN IV POTASSIUM PROTOCOL 04/22/25 20:00 05/22/25 19:59 Potassium Chloride (K-Dur/Klor-Con 20meq) 20 meq AD PRN PO POTASSIUM PROTOCOL 04/22/25 20:00 05/22/25 19:59 05/02/25 11:18 20 MEQ Potassium Chloride (KCl 10% Elixir 20meq/15ml) 20 meq AD PRN PO POTASSIUM PROTOCOL 04/22/25 20:00 05/22/25 19:59 Pramipexole Dihydrochloride (miraPEX 0.25MG TAB) 0.5 mg HS PO 04/24/25 21:00 05/24/25 20:59 05/01/25 21:48 0.5 MG Pregabalin (LYRica 25MG) 25 mg BID PO 05/01/25 21:00 05/31/25 20:59 05/02/25 10:21 25 MG Pregabalin (QPNdgc72PN) 75 mg BID PO 04/24/25 21:00 04/24/25 14:49 DC Sodium Chloride 500 ml @ 0 mls/hr Q0M IV 04/25/25 11:00 05/25/25 10:59 Sodium Zirconium Cyclosilicate (Lokelma 10gm Powder) 10 gm TID PO 04/23/25 21:00 04/23/25 14:11 DC Tramadol HCl (UltRAM) 50 mg Q6H PRN PO MODERATE PAIN (4-6) 04/24/25 22:30 04/29/25 22:29 DC 04/28/25 13:55 50 MG Trimethoprim/ Sulfamethoxazole (BactRIM DS) 1 tab BID PO 04/25/25 21:00 04/26/25 14:50 DC 04/25/25 21:51 1 TAB Vancomycin HCl 250 ml @ 125 mls/hr Q12H IV 04/24/25 23:00 04/25/25 12:36 DC 04/25/25 11:43 125 MLS/HR Vancomycin HCl 250 ml @ 125 mls/hr Q12H IV 04/26/25 15:30 04/28/25 03:13 DC 04/27/25 15:22 125 MLS/HR Vancomycin HCl 250 ml @ 125 mls/hr Q12H IV 04/28/25 15:30 04/28/25 18:53 DC Vancomycin HCl 250 ml @ 125 mls/hr Q12H IV 04/28/25 20:00 05/08/25 19:59 05/02/25 10:21 125 MLS/HR Vancomycin HCl (Vancomycin Protocol) 1 each AD IV 04/24/25 10:30 04/25/25 12:36 DC Vancomycin HCl (Vancomycin Protocol) 1 each AD IV 04/26/25 15:00 05/10/25 14:59 Venlafaxine HCl (EffEXOR XR 37.5mg CAP) 37.5 mg DAILY PO 04/24/25 16:00 05/24/25 15:59 05/02/25 10:20 37.5 MG Venlafaxine HCl (EffEXOR XR 37.5mg CAP) 37.5 mg DAILY PO 04/25/25 09:00 04/24/25 14:50 DC DIAGNOSTICS / RADIOLOGY: PATIENT: LUCÍA CATALNA MR#: [id number] : 1970 SEX: F AGE: 54 LOCATION: [facility] ORDER 53 STATUS: ADM IN REPORT#: [id number] SERVICE 53 REASON: VERIFY PICC LINE PLACEMENT ADJUSTMENT ORDERING PHYSICIAN: CORY PIMENTEL MD PROCEDURE: CXR1VW - CHEST 1VW EXAM: CR Chest, 2 View. CLINICAL HISTORY: VERIFY PICC LINE PLACEMENT ADJUSTMENT COMPARISON: Radiograph from earlier today. FINDINGS: Right PICC is now in satisfactory position. No pneumothorax. Mild bibasilar airspace disease may reflect atelectasis. No pleural effusion. Heart size is stable. Mild central pulmonary vascular congestion. IMPRESSION: 1. Right PICC line in satisfactory position. 2. No acute cardiopulmonary findings. /Solomon DICTATED BY: BROOKLYN LOPEZ Jr., MD DATE: 05/02/25 1500 ELECTRONICALLY SIGNED BY: BROOKLYN LOPEZ Jr., MD DATE: 05/02/251499 ASSESSMENT: Osteomyelitis of L2-L3 Status post nephrostomy tube, Persistent bacteremia, 2nd set of blood cultures growing MRSA Infectious spondylodiscitis L2-L3 MRSA bacteremia Sepsis, unable to determine POA Acute hypoxic hypercapnic respiratory failure, not POA, resolved AMS due to suspected steroid induced psychosis or hepatic encephalopathy, not POA, resolved Gram positive bacteremia Hyperammonemia due to cirrhosis, resolved Intractable low back pain due to spinal stenosis POA 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 Acute urinary tract infection due to MRSA POA Hypervolemic hyponatremia POA Chronic anemia POA Hyponatremia POA Acute kidney injury on renal insufficiency POA Hyperglycemia due to uncontrolled diabetes POA Hypocalcemia POA Cirrhotic liver with splenomegaly consistent with portal hypertension per CT POA Esophageal varices Renal parenchymal disease per CT POA Hypothyroidism POA Hypocalcemia POA Hyperlipidemia POA Hypertension POA Anxiety disorder POA Depression POA Restless leg syndrome POA Suspected obstructive sleep apnea untreated POA Morbid obesity POA PLAN: MRSA bacteremia Gram positive cocci in clusters, staphylococcus aureus IV Vancomycin with trough monitoring. Repeat blood cultures everyday Contact precautions She will need 6 wks of IV Abx, CM to work on placement Acute hypoxic hypercapnic respiratory failure, resolved Patient is off BIPAP and dexmedetomidine drip Altered Mental Status due to Hepatic Encephalopathy or steroids induced psychosis, resolved Monitor ammonia levels, mental status, and signs of worsening encephalopathy. Discontinue or hold steroids Monitor neuro status and reassess mental status regularly with steroid adjustments. Intractable lower back pain Per Dr. Sanchez, possible diagnosis of discitis and osteomyelitis at L2-L3 along with psoas inflammation. Continue multimodal pain management: acetaminophen, topical agents Low dose pregabalin Currently on dilaudid and [place] 5 Neuro checks q4 Thrombocytopenia due to ITP As per hematology, Continue IVIG and patient improving Monitor CBC daily; trend platelets. Rule out DIC, splenic sequestration (cirrhosis-related), and medication-induced causes. Avoid NSAIDs Acute UTI Monitor for signs of urosepsis Encourage hydration and bladder care Hyponatremia, resolved Monitor serum Na closely; consider fluid restriction if dilutional. Cirrhosis with portal hypertension Monitor for decompensation: encephalopathy, ascites, variceal bleeding. Consider beta sergio for variceal prophylaxis. Monitor LFTs, INR, and ammonia Her MELD- Na score is 24 points, 14-15% estimated 90 day mortality Hyperglycemia (Uncontrolled Diabetes) Per endocrinology, increase lantus to 50 units daily and increase regular insulin to 15 units qac before meals for hyperglycemia Continue high dose SSI Monitor blood glucose QID Educate on diet and insulin compliance; monitor for DKA if concern. Correct electrolytes accordingly. Chronic anemia H/o esophageal varcies due to cirrhosis with portal hypertension Per GI, hold off on EGD given no overt GI bleeding and stable hemoglobin Monitor trends, H&H daily Avoid transfusion unless symptomatic or Hgb <7. ATTESTATION BY PHYSICIAN I have seen and examined the patient. I reviewed the documentation, medical decision making, and treatment plan as noted by the resident provider above. I agree with the findings and plan of care. Cory Pimentel MD [facility] MD May 02, 2025 12:24 KALI ALBERT MD May 02, 2025 20:58
--- NOTE | 2025-05-02 12:55 | NUR ---
cm note spoke to pt regarding orders for [facility] referral. and discussed this level of care. also called daughter keily taylor and spoke to her and states is ok with referral to [facility], choice letter obtained.
--- NOTE | 2025-05-02 13:13 | PN ---
[facility] PROGRESS NOTE Date Patient Seen: May 02, 2025 Time of Visit: 13:13 Supervising Physician: Dr. 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, POA S/P IGG infusions on 04/30/2025 Acute urinary tract infection due to complicated cystitis 2/2 MRSA POA Hypervolemic hyponatremia, POA Chronic anemia, POA Hyponatremia, POA Acute kidney injury on renal insufficiency POA Hyperglycemia due to uncontrolled diabetes POA Hypocalcemia POA Cirrhotic liver with splenomegaly consistent with portal hypertension per CT POA Liver Lesion lesion that measures 1.3 x 1.1 x 1.7 cm in the right lobe on US Esophageal varices Renal parenchymal disease per CT, POA Hypothyroidism Hyperlipidemia Hypertension Anxiety disorder Depression Restless leg syndrome Suspected OHS Morbid obesity, BMI 47.5 INTERVAL HISTORY: Patient assessed at bedside. AAOX3. Currently on room air. States right flank pain has improved. Pending to receive last dose of IGG. Very weak. Repeat blood culture positive for gram positive bacteremia. Cardiology has been consulted for RAMAN, not a candidate for transesophageal echocardiogram due to thrombocytopenia, cirrhosis with esophageal varices, and overall bleeding risk. Prognosis is guarded. No family at bedside. Pending acceptance at [facility]. REVIEW OF SYSTEMS: General: No malaise or fever. Neurological: No fainting episodes or seizures. HEENT: No nasal congestion or nasal secretion. Respiratory: No cough, shortness of breath, or wheezing Cardiac: No chest pain or palpitations. Gastrointestinal: No vomiting or diarrhea. Genitourinary: No dysuria hematuria. Skin: No rashes or lesions. Hematological: No bruises or bleeding. Musculoskeletal: No joint pains or arthralgias. Psychiatric: No depression or panic attacks. PHYSICAL EXAM: GENERAL: Patient is awake alert and oriented x3. Cooperative and calm. HEENT: EOMI, Sclera non icteric, moist mucosa NECK: Supple, no JVD, trachea midline LUNGS: Clear breath sounds bilaterally. No wheezes HEART: Regular rate and rhythm. Normal S1 and S2, without murmurs ABD: Abdomen soft, nontender. Bowel sounds present EXT: No clubbing cyanosis or edema NEURO: AAOX3, follows commands Vital Signs (last 8hr) Date Time Temp Pulse Resp B/P (MAP) Pulse Ox O2 Delivery O2 Flow Rate FiO2 05/02/25 12:00 97.7 62 17 140/74 98 Room Air 05/02/25 08:00 97.7 57 17 157/81 96 Room Air 05/02/25 06:50 18 N/A Room Air 21 LABS: Hematology Labs: Test 05/02/25 06:08 Range/Units White Blood Count 5.7 4.8-10.8 K/uL Red Blood Count 3.49 L 4.00-5.50 MIL/uL Hemoglobin 8.9 L 12.0-16.0 g/dL Hematocrit 28.0 L 36-48 % Mean Corpuscular Volume 80.2 79-99 fL Mean Corpuscular Hemoglobin 25.5 L 27.0-33.0 pg Mean Corpuscular Hemoglobin Concent 31.8 L 32.0-36.0 g/dL Red Cell Distribution Width 21.6 H 11.0-15.5 % Platelet Count 32 #L 130-400 K/uL Mean Platelet Volume 7.5-10.5 fL Immature Granulocyte % (Auto) 1.2 H 0-1 % Neutrophils (%) (Auto) 92.4 H 40.0-77.0 % Lymphocytes (%) (Auto) 3.8 L 21.0-51.0 % Monocytes (%) (Auto) 2.4 L 3.0-13.0 % Eosinophils (%) (Auto) 0.0 0.0-8.0 % Basophils (%) (Auto) 0.2 0.0-5.0 % Neutrophils # (Auto) 5.3 1.8-7.7 K/uL Lymphocytes # (Auto) 0.2 L 1.0-4.8 K/uL Monocytes # (Auto) 0.1 0.1-1.0 K/uL Eosinophils # (Auto) 0.00 0.00-0.70 K/uL Basophils # (Auto) 0.01 0.00-0.20 K/uL Absolute Immature Granulocyte (auto 0.07 0-1 K/uL Nucleated Red Blood Cells 0.0 0.0-0.19 % Chemistry Labs: Test 05/02/25 11:44 05/02/25 06:08 05/01/25 15:15 05/01/25 05:30 Range/Units Whole Blood Glucose 213 H 70-110 MG/DL Sodium Level 138 136-145 mmol/L Potassium Level 3.5 3.5-5.1 mmol/L Chloride Level 105 101-111 mmol/L Carbon Dioxide Level 28 21-32 mmol/L Blood Urea Nitrogen 36 H 7-18 mg/dL Creatinine 1.1 H 0.5-1.0 mg/dL Glomerular Filtration Rate Calc 59 >90 mL/min Random Glucose 226 H 70-105 mg/dL Total Calcium 8.0 L 8.5-10.1 mg/dL Ammonia 29 11-32 umol/L Bedside Glucose Comment Notified Nurse Total Bilirubin 2.8 H 0.2-1.0 mg/dL Aspartate Amino Transf (AST/SGOT) 91 H 10-37 U/L Alanine Aminotransferase (ALT/SGPT) 80 H 12-78 U/L Alkaline Phosphatase 281 H 50-136 U/L C-Reactive Protein, Quantitative 105.50 H 0.5-3.0 mg/L Total Protein 7.4 6.0-8.3 g/dL Albumin 1.8 L 3.5-5.0 g/dL Coagulation Labs: Test 05/02/25 06:08 Range/Units Prothrombin Time 14.8 H 9.6-11.6 SEC Prothromb Time International Ratio 1.45 H 0.85-1.15 Activated Partial Thromboplast Time 33.9 26.3-35.5 SEC DIAGNOSTICS / RADIOLOGY RESULTS: NA PLAN Per cardiology not a candidate for transesophageal echocardiogram due to thrombocytopenia, cirrhosis with esophageal varices, and overall bleeding risk. BIPAP PRN Monitor hemodynamics Monitor for fevers Continue vancomycin per ID NEURO: Minimize central acting medications as possible. Maintain fall precautions, adequate lighting during the day PULMONARY: Supplemental 02 as needed. Maintain aspiration precautions at all times CARDIOVASCULAR: Follow hemodynamics. Vital signs per facility protocol GI & NUTRITION: Continue with nutritional support. Continue stool softeners and laxatives as needed. KIDNEYS & ELECTROLYTES: Strict monitoring of intake, output and overall fluid balance. Avoid nephrotoxic medications to the extent possible. Medications to be dosed according to renal function. Monitor electrolytes and replace as needed ENDOCRINE: Maintain blood glucose between 100-180 at all times. Hypoglycemia protocol in place INFECTIOUS DISEASE: Trend temperature, WBC and procalcitonin level Follow cultures, deescalate antibiotics as soon as possible. Panculture if new onset fever ONCOLOGY/HEMATOLOGY/COAGULATION: Monitor for s/s of bleeding Monitor hemoglobin, coagulation studies as needed SKIN: Pressure ulcer prevention per facility protocol Specialty mattress ORTHO/REHAB: Continue PT/OT Prophylaxis: Continue GI and DVT prophylaxis Code Status: Full Resuscitation Disposition: per primary team GABE VAIL NP May 02, 2025 13:13
--- NOTE | 2025-05-02 14:00 | HMCIMG ---
EXAM: CR Chest, 2 View. CLINICAL HISTORY: VERIFY PICC LINE PLACEMENT ADJUSTMENT COMPARISON: Radiograph from earlier today. FINDINGS: Right PICC is now in satisfactory position. No pneumothorax. Mild bibasilar airspace disease may reflect atelectasis. No pleural effusion. Heart size is stable. Mild central pulmonary vascular congestion. IMPRESSION: 1. Right PICC line in satisfactory position. 2. No acute cardiopulmonary findings. /Ola
--- NOTE | 2025-05-02 15:35 | NUR ---
cm note spoke to Johana bates with [facility] states has started evaluation and spoken to pt. will let cm know when accepted.
[2025-05-02] MEDS: IMMUNE GLOBULIN GAMMA 10% IV SCH (16:46)
--- NOTE | 2025-05-02 18:52 | PN ---
endocrinology progress note Date of Service: May 02, 2025 subjective: glucose are elevated and on steroids again. also on ivig hba1c 9.2, home regimen: lantus 30 units daily and humalog 10 units tid before meals. patient glucose are stable. off iv steroid MTP. PAST MEDICAL HISTORY: [undiagnosed obstructive sleep apnea, diabetes type 2, hypertension, hyperlipidemia, hypothyroidism, restless leg syndrome, anxiety disorder,depression, lupus and severe morbid obesity ] PAST SURGICAL HISTORY: [ Cholecystectomy, tubal ligation] PAST SOCIAL HISTORY: [ Patient lives with . Patient denies alcohol tobacco and recreational drug use] FAMILY HISTORY: [ Hypertension, diabetes, cardiovascular disease and Alzheimer's disease ] Coded Allergies: No Known Allergies (Unverified Allergy, Unknown, 08/26/14) ASSESSMENT: hyperglycemia due to uncontrolled dm-2 and on steroids now again. glucose are elevated but improving. hba1c 9.2, home regimen: lantus 30 units daily and humalog 10 units tid before meals. Intractable low back pain POA Acute thrombocytopenia POA Acute urinary tract infection POA Chronic anemia POA Hyponatremia POA Acute kidney injury on renal insufficiency POA Hypocalcemia POA Cirrhotic liver with splenomegaly consistent with portal hypertension per CT POA Renal parenchymal disease per CT POA Hypothyroidism POA Hyperlipidemia POA Hypertension POA Anxiety disorder POA Depression POA Restless leg syndrome POA Suspected obstructive sleep apnea untreated POA Morbid obesity POA PLAN: increase lantus to 55 units daily hyperglycemia. increase regular insulin to 16 units qac before meals continue high dose ssi monitor glucose qx6 hourly Vitals/Labs Vital Signs Date Time Temp Pulse Resp B/P (MAP) Pulse Ox O2 Delivery O2 Flow Rate FiO2 05/02/25 18:34 72 18 N/A Room Air 21 05/02/25 16:00 97.9 136/58 97 05/01/25 21:50 0 Laboratory Tests 05/02/25 06:08 Medications Current Medications Sodium Chloride 1,000 ml @ 0 mls/hr ONCE ONCE IV Last administered on 04/22/25at 17:27; Start 04/22/25 at 17:00; Stop 04/22/25 at 17:01; Status DC Ceftriaxone Sodium 1 gm ONCE ONCE IVPB Last administered on 04/22/25at 19:43; Start 04/22/25 at 19:00; Stop 04/22/25 at 19:01; Status DC Acetaminophen 650 mg Q6H PRN PO Last administered on 04/23/25at 10:02; Start 04/22/25 at 20:00; Stop 05/22/25 at 19:59 Acetaminophen 650 mg Q4H PRN PO Last administered on 04/30/25at 06:17; Start 04/22/25 at 20:00; Stop 05/22/25 at 19:59 Ondansetron HCl 4 mg Q6H PRN IV Last administered on 04/22/25at 20:10; Start 04/22/25 at 20:00; Stop 05/22/25 at 19:59 Famotidine 20 mg DAILY PO Last administered on 04/23/25at 09:33; Start 04/23/25 at 09:00; Stop 04/24/25 at 09:48; Status DC Ceftriaxone Sodium 1 gm/ Sodium Chloride 50 ml @ 100 mls/hr BID IV; Start 04/22/25 at 21:00; Stop 04/22/25 at 19:59; Status DC Lactated Ringer's 1,000 ml @ 100 mls/hr Q10H IV Last administered on 04/23/25at 06:00; Start 04/22/25 at 20:00; Stop 04/23/25 at 10:09; Status DC Insulin Human Regular INSULIN SLIDING SCAL... ACHS SQ Last administered on 04/24/25at 11:18; Start 04/22/25 at 21:00; Stop 04/24/25 at 16:16; Status DC Dextrose 50 ml AD PRN IV; Start 04/22/25 at 20:00; Stop 05/22/25 at 19:59 Glucagon 1 mg AD PRN IM; Start 04/22/25 at 20:00; Stop 05/22/25 at 19:59 Magnesium Sulfate 50 ml @ 0 mls/hr PROTOCOL PRN IV; Start 04/22/25 at 20:00; Stop 05/22/25 at 19:59 Potassium Chloride 100 ml @ 100 mls/hr AD PRN IV; Start 04/22/25 at 20:00; Stop 05/22/25 at 19:59 Potassium Chloride 20 meq AD PRN PO; Start 04/22/25 at 20:00; Stop 05/22/25 at 19:59 Potassium Chloride 20 meq AD PRN PO Last administered on 05/02/25at 13:19; Start 04/22/25 at 20:00; Stop 05/22/25 at 19:59 Ceftriaxone Sodium 1 gm BID IVPB; Start 04/22/25 at 21:00; Stop 04/22/25 at 20:44; Status DC Morphine Sulfate 4 mg ONCE ONCE IVP Last administered on 04/22/25at 20:11; Start 04/22/25 at 20:30; Stop 04/22/25 at 20:31; Status DC Lidocaine 1 each ONCE ONCE TP Last administered on 04/22/25at 21:14; Start 04/22/25 at 21:00; Stop 04/22/25 at 21:01; Status DC Ceftriaxone Sodium 1 gm BID IVPB Last administered on 04/25/25at 09:44; Start 04/23/25 at 09:00; Stop 04/25/25 at 12:36; Status DC Methylprednisolone Sodium Succinate 125 mg Q6H IVP Last administered on 04/25/25at 09:45; Start 04/23/25 at 08:00; Stop 04/28/25 at 09:10; Status DC Albuterol Sulfate 1.25 ONCE ONCE IH Last administered on 04/23/25at 09:40; Start 04/23/25 at 09:30; Stop 04/23/25 at 09:31; Status DC Calcium Gluconate 1 gm ONCE ONCE IV Last administered on 04/23/25at 10:55; Start 04/23/25 at 10:30; Stop 04/23/25 at 10:31; Status DC Sodium Chloride 50 ml @ 0 mls/hr ONCE ONCE IV Last administered on 04/23/25at 11:00; Start 04/23/25 at 11:00; Stop 04/23/25 at 11:01; Status DC Sodium Zirconium Cyclosilicate 10 gm ONCE ONCE PO Last administered on 04/23/25at 14:14; Start 04/23/25 at 14:00; Stop 04/23/25 at 16:08; Status DC Hydromorphone HCl 0.5 mg Q6H PRN IVP Last administered on 04/25/25at 04:14; Start 04/23/25 at 14:00; Stop 04/25/25 at 08:25; Status DC Sodium Zirconium Cyclosilicate 10 gm TID PO; Start 04/23/25 at 21:00; Stop 04/23/25 at 14:11; Status DC Pantoprazole Sodium 40 mg DAILY IVP Last administered on 05/02/25at 10:21; Start 04/24/25 at 10:00; Stop 05/24/25 at 09:59 Pregabalin 75 mg BID PO; Start 04/24/25 at 21:00; Stop 04/24/25 at 14:49; Status DC Vancomycin HCl 1 each AD IV; Start 04/24/25 at 10:30; Stop 04/25/25 at 12:36; Status DC Vancomycin HCl 500 ml @ 250 mls/hr ONCE ONCE IV Last administered on 04/24/25at 12:46; Start 04/24/25 at 11:00; Stop 04/24/25 at 12:59; Status DC Vancomycin HCl 250 ml @ 125 mls/hr Q12H IV Last administered on 04/25/25at 11:43; Start 04/24/25 at 23:00; Stop 04/25/25 at 12:36; Status DC Insulin Glargine 10 units HS SQ; Start 04/24/25 at 21:00; Stop 04/24/25 at 16:57; Status DC Insulin Glargine 10 units ONCE STAT SQ Last administered on 04/24/25at 11:19; Start 04/24/25 at 10:54; Stop 04/24/25 at 11:00; Status DC Atorvastatin Calcium 20 mg HS PO Last administered on 05/01/25at 21:48; Start 04/24/25 at 21:00; Stop 05/24/25 at 20:59 Gabapentin 300 mg BID PO Last administered on 04/25/25at 21:51; Start 04/24/25 at 21:00; Stop 04/28/25 at 09:10; Status DC Levothyroxine Sodium 125 mcg DAILY@0630 PO Last administered on 05/02/25at 06:38; Start 04/25/25 at 06:30; Stop 05/25/25 at 06:29 Metoprolol Succinate 50 mg AM PO Last administered on 05/02/25at 10:20; Start 04/25/25 at 09:00; Stop 05/25/25 at 08:59 Venlafaxine HCl 37.5 mg DAILY PO; Start 04/25/25 at 09:00; Stop 04/24/25 at 14:50; Status DC Pramipexole Dihydrochloride 0.5 mg HS PO Last administered on 05/01/25at 21:48; Start 04/24/25 at 21:00; Stop 05/24/25 at 20:59 Venlafaxine HCl 37.5 mg DAILY PO Last administered on 05/02/25at 10:20; Start 04/24/25 at 16:00; Stop 05/24/25 at 15:59 Insulin Human Regular INSULIN SLIDING SCAL... ACHS SQ Last administered on 04/25/25at 11:57; Start 04/24/25 at 16:30; Stop 04/25/25 at 14:09; Status DC Insulin Glargine 15 units HS SQ; Start 04/24/25 at 21:00; Stop 04/24/25 at 17:06; Status DC Insulin Human Regular 5 unit TIDAC SQ; Start 04/24/25 at 17:00; Stop 04/24/25 at 17:06; Status DC Insulin Glargine 30 units ONCE SQ Last administered on 04/24/25at 18:16; Start 04/24/25 at 17:00; Stop 04/25/25 at 06:19; Status DC Insulin Human Regular 10 unit TIDAC SQ Last administered on 04/25/25at 06:15; Start 04/24/25 at 17:00; Stop 04/25/25 at 06:17; Status DC Tramadol HCl 50 mg Q6H PRN PO Last administered on 04/28/25at 13:55; Start 04/24/25 at 22:30; Stop 04/29/25 at 22:29; Status DC Insulin Human Regular 25 unit TIDAC SQ Last administered on 04/25/25at 17:39; Start 04/25/25 at 07:30; Stop 04/26/25 at 07:58; Status DC Insulin Glargine 70 units ONCE ONCE SQ Last administered on 04/25/25at 06:27; Start 04/25/25 at 06:30; Stop 04/25/25 at 06:31; Status DC Hydromorphone HCl 0.5 mg BIDPRN PRN IVP Last administered on 04/29/25at 23:31; Start 04/25/25 at 19:00; Stop 04/30/25 at 11:59; Status DC Heparin Sodium (Porcine) 5,000 unit Q8H SQ; Start 04/25/25 at 09:00; Stop 04/25/25 at 08:40; Status DC Lactulose 30 gm TID PO Last administered on 04/30/25at 09:16; Start 04/25/25 at 11:00; Stop 04/30/25 at 09:45; Status DC Sodium Chloride 500 ml @ 0 mls/hr Q0M IV; Start 04/25/25 at 11:00; Stop 05/25/25 at 10:59 Trimethoprim/ Sulfamethoxazole 1 tab BID PO Last administered on 04/25/25at 21:51; Start 04/25/25 at 21:00; Stop 04/26/25 at 14:50; Status DC Insulin Human Regular INSULIN SLIDING SCAL... ACHS SQ Last administered on 05/02/25at 17:01; Start 04/25/25 at 16:30; Stop 05/25/25 at 16:29 Diazepam 10 mg ONCE ONCE IM; Start 04/25/25 at 15:00; Stop 04/25/25 at 15:01; Status DC Lactulose 200 gm ONCE ONCE OK Last administered on 04/25/25at 17:30; Start 04/25/25 at 16:30; Stop 04/25/25 at 16:31; Status DC Lorazepam 0.5 mg ONCE ONCE PO Last administered on 04/25/25at 19:07; Start 04/25/25 at 19:00; Stop 04/25/25 at 19:01; Status DC Haloperidol Lactate 1 mg ONCE ONCE IM Last administered on 04/26/25at 05:17; Start 04/26/25 at 05:00; Stop 04/26/25 at 05:02; Status DC Insulin Human Regular 15 unit TIDAC SQ; Start 04/26/25 at 11:30; Stop 04/27/25 at 20:30; Status DC Insulin Glargine 50 units DAILY SQ Last administered on 04/28/25at 08:46; Start 04/26/25 at 09:00; Stop 04/29/25 at 06:49; Status DC Dextrose 1,000 ml @ 75 mls/hr [id number] IV Last administered on 04/29/25at 04:27; Start 04/26/25 at 12:00; Stop 04/30/25 at 09:36; Status DC Dexmedetomidine/ Sodium Chloride 200 mcg PROTOCOL IV; Start 04/26/25 at 12:00; Stop 04/26/25 at 14:54; Status DC Dexmedetomidine/ Sodium Chloride 400 mcg STK-MED ONCE IV; Start 04/26/25 at 14:49; Stop 04/26/25 at 14:50; Status DC Vancomycin HCl 1 each AD IV; Start 04/26/25 at 15:00; Stop 05/10/25 at 14:59 Dexmedetomidine/ Sodium Chloride 400 mcg PROTOCOL STAT IV Last administered on 04/26/25at 15:18; Start 04/26/25 at 14:53; Stop 04/26/25 at 14:58; Status DC Vancomycin HCl 250 ml @ 125 mls/hr Q12H IV Last administered on 04/27/25at 15:22; Start 04/26/25 at 15:30; Stop 04/28/25 at 03:13; Status DC Dexmedetomidine/ Sodium Chloride 400 mcg PROTOCOL PRN IV Last administered on 04/27/25at 23:31; Start 04/26/25 at 19:30; Stop 05/01/25 at 12:45; Status DC Dexmedetomidine/ Sodium Chloride 400 mcg STK-MED ONCE IV Last administered on 04/26/25at 19:14; Start 04/26/25 at 19:10; Stop 04/26/25 at 19:11; Status DC Insulin Human Regular INSULIN SLIDING SCAL... Q4H SQ Last administered on 04/28/25at 06:00; Start 04/27/25 at 20:30; Stop 04/28/25 at 09:11; Status DC Vancomycin HCl 250 ml @ 125 mls/hr Q12H IV; Start 04/28/25 at 15:30; Stop 04/28/25 at 18:53; Status DC Insulin Human Regular 8 unit TIDAC SQ Last administered on 04/30/25at 06:15; Start 04/28/25 at 07:30; Stop 04/30/25 at 07:31; Status DC Vancomycin HCl 250 ml @ 125 mls/hr Q12H IV Last administered on 05/02/25at 10:21; Start 04/28/25 at 20:00; Stop 05/08/25 at 19:59 Insulin Glargine 40 units DAILY SQ; Start 04/29/25 at 09:00; Stop 04/30/25 at 07:31; Status DC Lidocaine HCl 50 ml STK-MED ONCE .ROUTE; Start 04/29/25 at 16:03; Stop 04/29/25 at 16:06; Status DC Heparin Sodium/ Sodium Chloride 500 ml @ As Directed STK-MED ONCE IV; Start 04/29/25 at 16:03; Stop 04/29/25 at 16:06; Status DC Iodixanol 100 ml STK-MED ONCE .ROUTE; Start 04/29/25 at 16:04; Stop 04/29/25 at 16:06; Status DC Fentanyl Citrate 100 mcg STK-MED ONCE .ROUTE; Start 04/29/25 at 16:27; Stop 04/29/25 at 16:28; Status DC Midazolam HCl 2 mg STK-MED ONCE .ROUTE; Start 04/29/25 at 16:28; Stop 04/29/25 at 16:28; Status DC Midazolam HCl 2 mg STK-MED ONCE .ROUTE; Start 04/29/25 at 16:52; Stop 04/29/25 at 16:52; Status DC Lidocaine 1 each ONCE ONCE TP Last administered on 04/29/25at 19:18; Start 04/29/25 at 18:30; Stop 04/29/25 at 18:33; Status DC Insulin Glargine 50 units DAILY SQ Last administered on 05/02/25at 10:30; Start 04/30/25 at 09:00; Stop 05/30/25 at 08:59 Insulin Human Regular 12 unit TIDAC SQ Last administered on 05/02/25at 06:45; Start 04/30/25 at 07:30; Stop 05/02/25 at 08:05; Status DC Hydromorphone HCl 1 mg TIDP PRN IVP Last administered on 04/30/25at 20:44; Start 04/30/25 at 13:00; Stop 05/01/25 at 18:46; Status DC Acetaminophen/ Hydrocodone Bitart 1 tab Q4H PRN PO Last administered on 04/30/25at 22:07; Start 04/30/25 at 12:00; Stop 05/05/25 at 11:59 Pharmacy Profile Note 1 each ONCE MISC; Start 05/01/25 at 08:00; Stop 04/30/25 at 16:52; Status DC Immune Globulin 400 ml @ 0 mls/hr Q24H IV Last administered on 05/01/25at 16:18; Start 05/01/25 at 14:00; Stop 05/02/25 at 12:38; Status DC Pregabalin 25 mg BID PO Last administered on 05/02/25at 10:21; Start 05/01/25 at 21:00; Stop 05/31/25 at 20:59 Lisinopril 10 mg DAILY PO Last administered on 05/02/25at 10:20; Start 05/02/25 at 09:00; Stop 06/01/25 at 08:59 Diphenhydramine HCl 25 mg ONCE PRN IVP; Start 05/01/25 at 15:00; Stop 05/01/25 at 15:06; Status DC Dexamethasone Sodium Phosphate 20 mg ONCE PRN IV; Start 05/01/25 at 15:00; Stop 05/01/25 at 15:05; Status DC Dexamethasone Sodium Phosphate 20 mg ONCALL IV Last administered on 05/02/25at 15:41; Start 05/01/25 at 15:30; Stop 05/03/25 at 15:31 Diphenhydramine HCl 25 mg ONCALL IVP Last administered on 05/02/25at 15:41; Start 05/01/25 at 15:30; Stop 05/03/25 at 15:31 Hydromorphone HCl 1 mg TID PRN IVP; Start 05/01/25 at 19:00; Stop 05/05/25 at 12:59 Insulin Human Regular 15 unit TIDAC SQ Last administered on 05/02/25at 17:02; Start 05/02/25 at 11:30; Stop 06/01/25 at 11:29 Immune Globulin 400 ml @ 0 mls/hr Q24H IV Last administered on 05/02/25at 16:46; Start 05/02/25 at 16:00; Stop 05/03/25 at 16:01 PARAG VANG MD May 02, 2025 18:52
[2025-05-03] VITALS (11 sets, daily range): BP systolic 113–161; BP diastolic 55–83; PULSE 60–97; RESP 16–20; TEMP 97.3–98.7; O2SAT 95–98
--- NOTE | 2025-05-03 01:09 | PN ---
INFECTIOUS DISEASE FOLLOWUP NOTE DATE OF SERVICE: 05/02/2025. SUBJECTIVE: The patient is seen and examined at bedside today. The patient has no fever, no chills. No bleeding tendency. No palpitation. No orthopnea. Denied depression. No suicidal ideation. ____ low back pain. No slurred speech or limb weakness. PHYSICAL EXAMINATION: VITAL SIGNS: Temperature 98.1. EYES: No icterus. Pupils equal and reactive. HENT: No oral thrush seen. Moist oral mucosa. NECK: Supple. No JVD or thyromegaly. LUNGS: Good air entry. No rales, no rhonchi. CARDIOVASCULAR SYSTEM: S1 and S2 regular. No murmur heard. ABDOMEN: Full, soft, nontender. Bowel sounds are present. CENTRAL NERVOUS SYSTEM: Awake, alert, oriented x 3. No focal deficits. SKIN: No rashes, no itchiness. LYMPHATIC: No peripheral lymphadenopathy. BACK: No deformity. No pressure ulcer. HEMATOLOGIC: No bleeding tendency. MUSCULOSKELETAL: No joint swelling, erythema or tenderness. ASSESSMENT: A 54-year-old female with multiple problems, which include: * MRSA bacteremia sepsis. * Lumbar spine diskitis and osteomyelitis. * Urinary tract infection. * Morbid obesity. * Liver cirrhosis. * Encephalopathy. PLAN: * Continue nutritional support. * Continue vancomycin. * Continue pain management. * Continue GI prophylaxis. * Monitor electrolytes. * Continue antiemetics. * The patient will be followed up closely. TID: [id number] RECEIPT: [id number]
[2025-05-03 06:46] LABS: IMMATURE GRANULOCYTE ABSOLUTE 0.05 K/uL (0-1); NUCLEATED RED BLOOD CELLS 0.0 % (0.0-0.19); PLATELET COUNT (AUTO) 42 K/uL (130-400); RED BLOOD CELL COUNT(AUTO) 3.57 MIL/uL (4.00-5.50); RED CELL DISTRIBUTION WIDTH 21.8 % (11.0-15.5); WHITE BLOOD COUNT (AUTO) 7.8 K/uL (4.8-10.8)
[2025-05-03 07:12] LABS: CREATININE 1.2 mg/dL (0.5-1.0); GLOMERULAR FILTR. RATE CALC 53.0 mL/min (>90); GLUCOSE,RANDOM 141.0 mg/dL (70-105); SODIUM SERUM 141.0 mmol/L (136-145); UREA NITROGEN, BLOOD 36.0 mg/dL (7-18)
[2025-05-03 08:41] LABS: PLATELET MORPHOLOGY COMMENT MARKED DECREASE
--- NOTE | 2025-05-03 09:52 | NUR ---
POSITIVE BLOOD CULTURES CAT LEAL W/DR SOARES MADE AWARE OF POSITIVE BLOOD CX-GRAM POSITIVE COCCI IN BOTH BLOOD CULTURES. NO FURTHER ORDERS AT THIS TIME.
[2025-05-03] MEDS ORDERED: PHARMACY COMMUNICATION MISC SCH (12:00)
--- NOTE | 2025-05-03 13:53 | PN ---
[facility] PROGRESS NOTE Date of Service: May 03, 2025 Time of Service: 13:41 SUBJECTIVE: This is a 54-year-old female with past medical history of undiagnosed obstructive sleep apnea, diabetes type 2, hypertension, hyperlipidemia, hypothyroidism, restless leg syndrome, anxiety disorder,depression, lupus and severe morbid obesity who presents to the ED for complaints of severe low back pain which started 2 weeks ago and getting worse for the past 2 days and patient reports she is taking prednisone 30mg po daily for her Lupus she said.Patient also reports she was recently seen in this ED for similar complaints and was diagnosed with acute lumbosacral myofascial strain. and patient was given pain meds and discharged home and came again today due to pain intensity is so severe and intolerable.Patient also reports that her whole body hurts more on muscle pain she said.Patient also reports she has muscle pain on her chest and it reproducible on light palpation.Patient also states she vomited x 1 today .Patient denies any injury,trauma and fall.Patient also reports that she is on her monthly period today and it is her first day.patient also states that is her vessel scrapper helper and her last seen him last year and that she has insurance problem reason she was unable to keep her follow up. Urinalysis consistent with urinary tract infection. CT abdomen and pelvis result revealed no acute intra-abdominal or pelvic pathology cirrhotic liver morphology with splenomegaly, consistent with portal hypertension. Bilateral renal cortical thickening may reflect renal parenchymal disease. While in the ER patient received Rocephin 1 g IV, 1 L NS bolus. We will admit patient for further medical management. 04/23/25 Patient was seen and examined at bedside. She was complaining of chest pain early in the morning but her EKG and troponin were normal. Patient says she got liver cirrhosis from taking Tylenol with codeine in the past for a long time. Remarkable labs are Na 129, K 6.4. Cl 98, BUN 44. Cr 1.2 with no anion gap. New EKG shows sinus rhythm with no tall T-waves or shortened QT interval. We will give her a dose of calcium gluconate and lokelma and recheck her labs. we will hold her iv fluids for now. Her urine anion gap is 36.0 mEq/l. Repeat potassium was 4.2 and 4.6. We will order CT lumbar spine and request nephro and cardio consults due to hyponatremia, RTA and cirrhosis with portal hypertension respectively. We will order lupus, complement , anemia panel due to her abnormal labs and h/o SLE. Hematology recommended solu medrol 125 q6. she might need hydrochloroquine upon discharge for SLE 04/24/25 Patient was seen and examined at bedside. She is complaining of widespread generalized body pain with tender points and generalized weakness, her CPK is going up, we will repeat it and start her on pregabalin. Her labs are improving. She had an EGD done last year that showed grade III varices but lost to follow up with TDS. No GI intervention as her Hb is stable. Will start her on vancomycin. Her home meds have been reconciled. She takes venlaflaxine and pramipexole for depression and restless leg syndrome respectively. Her elevated urine anion gap could be due to BALTAZAR or NSAID induced kidney injury but her creatinine is improving. Pending abdominal ultrasound and CT lumbar spine re sults. 04/25/25 Patient was seen and examined. She was observed sitting in a chair but was unable to answer questions appropriately and appeared confused. Ammonia level was elevated at 59; lactulose has been initiated at 30 mL TID. She is currently receiving vancomycin for MRSA identified in the urine. Right upper quadrant ultrasound demonstrated chronic hepatic changes with a hypoechoic lesion in the right lobe of the liver, possibly representing a complex cyst. CT of the lumbar spine revealed moderate lumbar spondylosis and diffuse osteopenia. Her platelet count is 37 and showing slow improvement. Dr. Urias, covering for Dr. Lorenzo, recommended holding solu-medrol for now. If platelet count declines tomorrow, steroids may need to be restarted. Ammonia and additional labs will be rechecked in the morning. 04/26/25 Patient was seen at bedside. Will request a transfer to the ICU due to worsening agitation and hypercapnic respiratory failure requiring BIPAP support.Will order Precedex drip for sedation to improve tolerance of non-invasive ventilation. Imaging studies including CT head and MRI spine have been ordered to evaluate for underlying neurologic causes. Patient remains hemodynamically stable; pulmonary consult is in place. She is growing gram positive cocci in clusters in her blood, will request ID input on antibiotics as she was on vancomycin previously and was started on bactrim for MRSA in urine. Her platelet count is 36 and solu-medrol is on hold. Ammonia improved from 59 to 12 04/27/25 Patient was evaluated at bedside. She was transferred to the ICU yesterday due to agitation and hypercapnia, requiring a Precedex drip as she was removing her nasal cannula. BiPAP was initiated to support ventilation, and she is now resting comfortably. CT brain was unremarkable with no acute findings. She has a free water deficit of approximately 1.4 liters, for which D5W will be administered. CRP has decreased from 83.5 to 56.4. However, platelets have dropped from 36 to 28, and hematology is closely monitoring her. The patient remains NPO. We wanted to start NG tube feeding but patient has h/o esophageal varices. We will await gastroenterologys recommendations, including possible EGD if indicated. 04/28/25 Patient was evaluated at bedside, she is bed bound not very responsive to questions. She is currently off BiPAP and precedex drip. Her agitation has improved and she is resting comfortably in bed. She has MRSA bacteremia and we will repeat blood cultures. She is currently on vancomycin. She has moderate right hydronephrosis which is increasing, we will request urology consult. Her sodium is trending upwards from 147 to 152 and she has a free water deficit of 2.4 L , we will increase D5 rate from 75 to 150mls/hr. CRP improving from 56.4 to 42.7. Platelets dropped from 28 to 21, we will follow Dr. Lorenzo's recommendations and his plan is give her IgG. She is not bleeding actively. 04/29/25 Patient was evaluated at bedside. She is alert, awake and oriented. She was minimally verbal yesterday but is now more interactive, expressing pain and discussing her medical history. She reports diffuse joint pain and is unable to lift her arms or legs due to significant discomfort. She has generalized joint tenderness and weak load dispatcher local strength bilaterally. urologist Dr. Colin recommended nephrostomy tube on her right due to hydronephrosis. Her platelets improved to 44 without any intervention. She will be getting platelets for the procedure. She has infectious spondylodiscitis which could be the source of her bacteremia. We have requested transfer to [facility] but clerical warehouse worker said Dr. Sanchez has privileges at [facility] and will try to consult him. Her white count went up to 12.2, LFTs mildly going up. We will hold off on gabapentin for now. 04/30/25 Patient was evaluated at bedside. She is alert, awake and oriented. Her vitals are stable. She is interactive, expressing pain and discussing her medical history. She reports diffuse joint pain and is able to lift her arms or legs slightly due to pain and discomfort. Her active and passive range of motions are limited. She has generalized joint tenderness and weak load dispatcher local strength bilaterally. She also passed stool more than 5 times yesterday could be due to lactulose which has been stopped from today. A Percutaneous fluroscopy-guided placement of an 8-F nephrostomy catheter was performed,the patient tolerated the procedure well. Neurosurgeon Dr. Sanchez saw the patient and came up with possible diagnosis of discitis and osteomyelitis at L2-L3 along with psoas inflammation. She has spondylolisthesis which is non- critical and can be managed medically for now. According to Dr. Lorenzo she will benefit from IVIg for 3 days on the background of possible ITP. Her current platelet is 41 and Hgb 9.6. Also, Endocrinology team adjusted Insulin regimen. We have requested cardiology consult for suspected endocarditis and will request RAMAN although she has thrombocytopenia and h/o esophageal varices. 05/01/25 Patient was evaluated at bedside. She is alert, awake and oriented. Her vitals are stable, except blood pressure which is 158/80. She reports diffuse joint pain and is able to lift her arms or legs slightly due to pain and discomfort. Her active and passive range of motions are limited. She has generalized joint tenderness and weak load dispatcher local strength bilaterally. As per Dr. Lorenzo she will be started IVIG from today for 3 days. As per the Cardiology, she won't undergo RAMAN due thrombocytopenia, cirrhosis, varices. We will continue IV antibiotics and add low dose pregabalin for her pain. 05/02/25 Patient was evaluated at bedside. She is alert, awake and oriented. Her vitals are stable, except blood pressure which is 157/81. Labs showed WBC decreasing from 11.6 to 5.7, platelets from 44 to 32 and random glucose of 226. There has been marked decline in pain. We will continue IV antibiotics and she is receiving Immune globulin every 24 hr. Her Insulin dosage has been adjusted. Blood culture showed gram positive cocci in clusters, STAPHYLOCOCCUS AUREUS. Her prognosis remains guarded. Plan is to discharge her to [facility] for 6 weeks of IV antibiotics. 05/03/25 Patient was evaluated at bedside. She is alert, awake and oriented. Her vitals are stable,and her blood pressure which is 137/70. Labs showed WBC 7.8 , deonte telets from increasing from 32 to 44 and random glucose of 232. Her creatinine level is 1.2. There has been marked decline in pain and discomfort. We will continue IV antibiotics and she is receiving Immune globulin every 24 hr. Her last dose for Immune globulin is today. Her Insulin dosage has been adjusted. Blood culture showed gram positive cocci. Her prognosis remains guarded. She is on IV vancomycin. Plan is to discharge her to [facility] for 6 weeks of IV antibiotics. REVIEW OF SYSTEMS CONSTITUTIONAL: No fever, chills, or night sweats. NEUROLOGICAL: Denies headache, sensory and motor deficit. CARDIOVASCULAR: Denies any exertional angina, dyspnea on exertion, orthopnea, paroxysmal nocturnal dyspnea, palpitations. PULMONARY: Denies any shortness of breath, cough, phlegm/sputum, hemoptysis, pleuritic chest pain. GASTROINTESTINAL: Denies nausea, vomiting, abdominal pain. GENITOURINARY: Denies frequency, urgency, nocturia, hematuria or incontinence. PHYSICAL EXAM GENERAL APPEARANCE: The patient is alert, awake and oriented and bedbound NEUROLOGICAL: No sensory and motor deficits. CHEST: Normal chest expansion. LUNGS: Absence of any rales, rhonchi or any wheezing. CARDIOVASCULAR: Regular. S1 and S2 normal. No appreciable rubs, murmurs or gallops. ABDOMEN: Soft nontender, and nondistended. There is no rebound, voluntary guarding, or rigidity. GENITOURINARY: S/P day 3, Nephrostomy tube on the right side Vital Signs (last 8hr) Date Time Temp Pulse Resp B/P (MAP) Pulse Ox O2 Delivery O2 Flow Rate FiO2 05/03/25 11:43 97.9 71 18 137/70 97 Room Air 05/03/25 07:40 97.9 60 17 141/71 98 Room Air 05/03/25 07:01 18 N/A Room Air 21 LABS: Laboratory: Test 05/03/25 11:25 05/03/25 06:38 05/02/25 19:15 05/02/25 06:08 Range/Units Whole Blood Glucose 232 #H 70-110 MG/DL White Blood Count 7.8 4.8-10.8 K/uL Red Blood Count 3.57 L 4.00-5.50 MIL/uL Hemoglobin 9.1 L 12.0-16.0 g/dL Hematocrit 28.9 L 36-48 % Mean Corpuscular Volume 81.0 79-99 fL Mean Corpuscular Hemoglobin 25.5 L 27.0-33.0 pg Mean Corpuscular Hemoglobin Concent 31.5 L 32.0-36.0 g/dL Red Cell Distribution Width 21.8 H 11.0-15.5 % Platelet Count 42 #L 130-400 K/uL Mean Platelet Volume 10.8 H 7.5-10.5 fL Immature Granulocyte % (Auto) 0.6 0-1 % Neutrophils (%) (Auto) 92.6 H 40.0-77.0 % Lymphocytes (%) (Auto) 3.0 L 21.0-51.0 % Monocytes (%) (Auto) 3.7 3.0-13.0 % Eosinophils (%) (Auto) 0.0 0.0-8.0 % Basophils (%) (Auto) 0.1 0.0-5.0 % Neutrophils # (Auto) 7.2 1.8-7.7 K/uL Lymphocytes # (Auto) 0.2 L 1.0-4.8 K/uL Monocytes # (Auto) 0.3 0.1-1.0 K/uL Eosinophils # (Auto) 0.00 0.00-0.70 K/uL Basophils # (Auto) 0.01 0.00-0.20 K/uL Absolute Immature Granulocyte (auto 0.05 0-1 K/uL Nucleated Red Blood Cells 0.0 0.0-0.19 % White Cell Morphology Comment See comments Platelet Morphology Comment MARKED DECREASE Red Blood Cell Morphology ANISO 1+ Sodium Level 141 136-145 mmol/L Potassium Level 3.6 3.5-5.1 mmol/L Chloride Level 108 101-111 mmol/L Carbon Dioxide Level 28 21-32 mmol/L Blood Urea Nitrogen 36 H 7-18 mg/dL Creatinine 1.2 H 0.5-1.0 mg/dL Glomerular Filtration Rate Calc 53 >90 mL/min Random Glucose 141 H 70-105 mg/dL Total Calcium 8.5 8.5-10.1 mg/dL C-Reactive Protein, Quantitative 66.20 H 0.5-3.0 mg/L Vancomycin Level Trough 25.2 #*H 10.0-20.0 UG/ML Prothrombin Time 14.8 H 9.6-11.6 SEC Prothromb Time International Ratio 1.45 H 0.85-1.15 Activated Partial Thromboplast Time 33.9 26.3-35.5 SEC Ammonia 29 11-32 umol/L Test 05/01/25 15:15 Range/Units Bedside Glucose Comment Notified Nurse Current Medications Medications (Trade) Dose Ordered Sig/Roberth Route PRN Reason Start Time Stop Time Status Last Admin Dose Admin Acetaminophen (TYLenol 325MG TAB) 650 mg Q4H PRN PO MILD PAIN (1-3) 04/22/25 20:00 05/22/25 19:59 04/30/25 06:17 650 MG Acetaminophen (TYLenol 325MG TAB) 650 mg Q6H PRN PO TEMPERATURE GREATER THAN 101.5 04/22/25 20:00 05/22/25 19:59 04/23/25 10:02 650 MG Acetaminophen/ Hydrocodone Bitart (NORco 5/325MG) 1 tab Q4H PRN PO MODERATE PAIN (4-6) 04/30/25 12:00 05/05/25 11:59 04/30/25 22:07 1 TAB Atorvastatin Calcium (LIPItor 20MG) 20 mg HS PO 04/24/25 21:00 05/24/25 20:59 05/02/25 22:02 20 MG Ceftriaxone Sodium 1 gm/ Sodium Chloride 50 ml @ 100 mls/hr BID IV 04/22/25 21:00 04/22/25 19:59 DC Ceftriaxone Sodium (ROCEphine 1G INJ) 1 gm BID IVPB 04/22/25 21:00 04/22/25 20:44 DC Ceftriaxone Sodium (ROCEphine 1G INJ) 1 gm BID IVPB 04/23/25 09:00 04/25/25 12:36 DC 04/25/25 09:44 1 GM Dexamethasone Sodium Phosphate (dexaMETHasone 4MG/ML 1ML VIAL) 20 mg ONCALL IV 05/01/25 15:30 05/03/25 15:31 05/02/25 15:41 20 MG Dexamethasone Sodium Phosphate (dexaMETHasone 4MG/ML 1ML VIAL) 20 mg ONCE PRN IV PRE-MED 05/01/25 15:00 05/01/25 15:05 DC Dexmedetomidine/ Sodium Chloride (PRECEdex 200MCG/ 50ML-NS) 200 mcg PROTOCOL IV 04/26/25 12:00 04/26/25 14:54 DC Dexmedetomidine/ Sodium Chloride (PRECEdex 400MCG/ 100ML-NS) 400 mcg PROTOCOL PRN IV ANXIETY/AGITATION 04/26/25 19:30 05/01/25 12:45 DC 04/27/25 23:31 400 MCG Dexmedetomidine/ Sodium Chloride (PRECEdex 400MCG/ 100ML-NS) 400 mcg PROTOCOL STAT IV 04/26/25 14:53 04/26/25 14:58 DC 04/26/25 15:18 400 MCG Dextrose 1,000 ml @ 75 mls/hr [id number] IV 04/26/25 12:00 04/30/25 09:36 DC 04/29/25 04:27 150 MLS/HR Dextrose (D50w) 50 ml AD PRN IV HYPOGLYCEMIA PROTOCOL 04/22/25 20:00 05/22/25 19:59 Diphenhydramine HCl (BENAdryl INJ) 25 mg ONCALL IVP 05/01/25 15:30 05/03/25 15:31 05/02/25 15:41 25 MG Diphenhydramine HCl (BENAdryl INJ) 25 mg ONCE PRN IVP PRE-MED 05/01/25 15:00 05/01/25 15:06 DC Famotidine (Pepcid 20mg Tab) 20 mg DAILY PO 04/23/25 09:00 04/24/25 09:48 DC 04/23/25 09:33 20 MG Gabapentin (NEURontin 300 MG CAP) 300 mg BID PO 04/24/25 21:00 04/28/25 09:10 DC 04/25/25 21:51 300 MG Gentamicin Sulfate/Sodium Chloride 100 ml @ 200 mls/hr Q24H IV 05/03/25 14:00 05/13/25 13:59 Glucagon (Glucagon 1mg Kit) 1 mg AD PRN IM HYPOGLYCEMIA PROTOCOL 04/22/25 20:00 05/22/25 19:59 Heparin Sodium (Porcine) (HEParin 5,000 UNIT VIAL) 5,000 unit Q8H SQ 04/25/25 09:00 04/25/25 08:40 DC Hydromorphone HCl (DiLAUDid 0.5MG INJ) 0.5 mg BIDPRN PRN IVP SEVERE PAIN (7-10) 04/25/25 19:00 04/30/25 11:59 DC 04/29/25 23:31 0.5 MG Hydromorphone HCl (DiLAUDid 0.5MG INJ) 0.5 mg Q6H PRN IVP SEVERE PAIN (7-10) 04/23/25 14:00 04/25/25 08:25 DC 04/25/25 04:14 0.5 MG Hydromorphone HCl (DiLAUDid 1MG INJ) 1 mg TID PRN IVP SEVERE PAIN (7-10) 05/01/25 19:00 05/05/25 12:59 Hydromorphone HCl (DiLAUDid 1MG INJ) 1 mg TIDP PRN IVP SEVERE PAIN (7-10) 04/30/25 13:00 05/01/25 18:46 DC 04/30/25 20:44 1 MG Immune Globulin 400 ml @ 0 mls/hr Q24H IV 05/01/25 14:00 05/02/25 12:38 DC 05/01/25 16:18 37.5 MLS/HR Immune Globulin 400 ml @ 0 mls/hr Q24H IV 05/02/25 16:00 05/03/25 16:01 05/02/25 16:46 37.5 MLS/HR Insulin Glargine (LANtus 100 UNITS/ML 10 ML VIAL) 10 units HS SQ 04/24/25 21:00 04/24/25 16:57 DC Insulin Glargine (LANtus 100 UNITS/ML 10 ML VIAL) 10 units ONCE STAT SQ 04/24/25 10:54 04/24/25 11:00 DC 04/24/25 11:19 10 UNITS Insulin Glargine (LANtus 100 UNITS/ML 10 ML VIAL) 15 units HS SQ 04/24/25 21:00 04/24/25 17:06 DC Insulin Glargine (LANtus 100 UNITS/ML 10 ML VIAL) 30 units ONCE SQ 04/24/25 17:00 04/25/25 06:19 DC 04/24/25 18:16 30 UNITS Insulin Glargine (LANtus 100 UNITS/ML 10 ML VIAL) 40 units DAILY SQ 04/29/25 09:00 04/30/25 07:31 DC Insulin Glargine (LANtus 100 UNITS/ML 10 ML VIAL) 50 units DAILY SQ 04/26/25 09:00 04/29/25 06:49 DC 04/28/25 08:46 50 UNITS Insulin Glargine (LANtus 100 UNITS/ML 10 ML VIAL) 50 units DAILY SQ 04/30/25 09:00 05/30/25 08:59 05/03/25 08:33 50 UNITS Insulin Human Regular (humuLIN R 100 UNIT/ML 3ML) 5 unit TIDAC SQ 04/24/25 17:00 04/24/25 17:06 DC Insulin Human Regular (humuLIN R 100 UNIT/ML 3ML) 8 unit TIDAC SQ 04/28/25 07:30 04/30/25 07:31 DC 04/30/25 06:15 8 UNIT Insulin Human Regular (humuLIN R 100 UNIT/ML 3ML) 10 unit TIDAC SQ 04/24/25 17:00 04/25/25 06:17 DC 04/25/25 06:15 10 UNIT Insulin Human Regular (humuLIN R 100 UNIT/ML 3ML) 12 unit TIDAC SQ 04/30/25 07:30 05/02/25 08:05 DC 05/02/25 06:45 12 UNIT Insulin Human Regular (humuLIN R 100 UNIT/ML 3ML) 15 unit TIDAC SQ 05/02/25 11:30 06/01/25 11:29 05/03/25 13:14 15 UNIT Insulin Human Regular (humuLIN R 100 UNIT/ML 3ML) 15 unit TIDAC SQ 04/26/25 11:30 04/27/25 20:30 DC Insulin Human Regular (humuLIN R 100 UNIT/ML 3ML) 25 unit TIDAC SQ 04/25/25 07:30 04/26/25 07:58 DC 04/25/25 17:39 25 UNIT Insulin Human Regular (humuLIN R 100 UNIT/ML 3ML) INSULIN SLIDING SCAL... ACHS SQ 04/22/25 21:00 04/24/25 16:16 DC 04/24/25 11:18 8 UNIT Insulin Human Regular (humuLIN R 100 UNIT/ML 3ML) INSULIN SLIDING SCAL... ACHS SQ 04/24/25 16:30 04/25/25 14:09 DC 04/25/25 11:57 16 UNIT Insulin Human Regular (humuLIN R 100 UNIT/ML 3ML) INSULIN SLIDING SCAL... ACHS SQ 04/25/25 16:30 05/25/25 16:29 05/03/25 13:13 10 UNIT Insulin Human Regular (humuLIN R 100 UNIT/ML 3ML) INSULIN SLIDING SCAL... Q4H SQ 04/27/25 20:30 04/28/25 09:11 DC 04/28/25 06:00 4 UNIT Lactated Ringer's 1,000 ml @ 100 mls/hr Q10H IV 04/22/25 20:00 04/23/25 10:09 DC 04/23/25 06:00 100 MLS/HR Lactulose (Constulose 20gm/ 30ml Udcup) 30 gm TID PO 04/25/25 11:00 04/30/25 09:45 DC 04/30/25 09:16 30 GM Levothyroxine Sodium (SYNTHroid 125MCG TAB) 125 mcg DAILY@0630 PO 04/25/25 06:30 05/25/25 06:29 05/03/25 06:16 125 MCG Lisinopril (Prinivil 10mg) 10 mg DAILY PO 05/02/25 09:00 06/01/25 08:59 05/03/25 08:24 10 MG Magnesium Sulfate 50 ml @ 0 mls/hr PROTOCOL PRN IV OTHER [SEE ORDER COMMENTS] 04/22/25 20:00 05/22/25 19:59 Methylprednisolone Sodium Succinate (Solu-medROL 125MG) 125 mg Q6H IVP 04/23/25 08:00 04/28/25 09:10 DC 04/25/25 09:45 125 MG Metoprolol Succinate (TopROL XL) 50 mg AM PO 04/25/25 09:00 05/25/25 08:59 05/03/25 08:24 50 MG Ondansetron HCl (zoFRAN 4MG INJ) 4 mg Q6H PRN IV NAUSEA/VOMITING 04/22/25 20:00 05/22/25 19:59 04/22/25 20:10 4 MG Pantoprazole Sodium (PROTonix 40MG INJ) 40 mg DAILY IVP 04/24/25 10:00 05/24/25 09:59 05/03/25 08:25 40 MG Pharmacy Profile Note (Pharmacy Communication) 1 each ONCE [facility] 05/01/25 08:00 04/30/25 16:52 DC Pharmacy Profile Note (Pharmacy Communication) 1 each ONCE [facility] 05/03/25 12:00 05/03/25 12:58 DC Potassium Chloride 100 ml @ 100 mls/hr AD PRN IV POTASSIUM PROTOCOL 04/22/25 20:00 05/22/25 19:59 Potassium Chloride (K-Dur/Klor-Con 20meq) 20 meq AD PRN PO POTASSIUM PROTOCOL 04/22/25 20:00 05/22/25 19:59 05/03/25 13:10 20 MEQ Potassium Chloride (KCl 10% Elixir 20meq/15ml) 20 meq AD PRN PO POTASSIUM PROTOCOL 04/22/25 20:00 05/22/25 19:59 Pramipexole Dihydrochloride (miraPEX 0.25MG TAB) 0.5 mg HS PO 04/24/25 21:00 05/24/25 20:59 05/02/25 22:02 0.5 MG Pregabalin (LYRica 25MG) 25 mg BID PO 05/01/25 21:00 05/31/25 20:59 05/03/25 08:24 25 MG Pregabalin ([id number]) 75 mg BID PO 04/24/25 21:00 04/24/25 14:49 DC Sodium Chloride 500 ml @ 0 mls/hr Q0M IV 04/25/25 11:00 05/25/25 10:59 Sodium Zirconium Cyclosilicate (Lokelma 10gm Powder) 10 gm TID PO 04/23/25 21:00 04/23/25 14:11 DC Tramadol HCl (UltRAM) 50 mg Q6H PRN PO MODERATE PAIN (4-6) 04/24/25 22:30 04/29/25 22:29 DC 04/28/25 13:55 50 MG Trimethoprim/ Sulfamethoxazole (BactRIM DS) 1 tab BID PO 04/25/25 21:00 04/26/25 14:50 DC 04/25/25 21:51 1 TAB Vancomycin HCl 250 ml @ 125 mls/hr Q12H IV 04/24/25 23:00 04/25/25 12:36 DC 04/25/25 11:43 125 MLS/HR Vancomycin HCl 250 ml @ 125 mls/hr Q12H IV 04/26/25 15:30 04/28/25 03:13 DC 04/27/25 15:22 125 MLS/HR Vancomycin HCl 250 ml @ 125 mls/hr Q12H IV 04/28/25 15:30 04/28/25 18:53 DC Vancomycin HCl 250 ml @ 125 mls/hr Q12H IV 04/28/25 20:00 05/02/25 20:34 DC 05/02/25 10:21 125 MLS/HR Vancomycin HCl 250 ml @ 125 mls/hr Q12H9 IV 05/04/25 21:00 05/14/25 20:59 Vancomycin HCl (Vancomycin Protocol) 1 each AD IV 04/24/25 10:30 04/25/25 12:36 DC Vancomycin HCl (Vancomycin Protocol) 1 each AD IV 04/26/25 15:00 05/10/25 14:59 Venlafaxine HCl (EffEXOR XR 37.5mg CAP) 37.5 mg DAILY PO 04/24/25 16:00 05/24/25 15:59 05/03/25 08:24 37.5 MG Venlafaxine HCl (EffEXOR XR 37.5mg CAP) 37.5 mg DAILY PO 04/25/25 09:00 04/24/25 14:50 DC DIAGNOSTICS / RADIOLOGY: [ ] ASSESSMENT: Osteomyelitis of L2-L3 Suspected Endocarditis, RAMAN deferred due to bleeding risks; unable to rule out endocarditis Status post nephrostomy tube Persistent bacteremia, 2nd set of blood cultures growing MRSA Infectious spondylodiscitis L2-L3 MRSA bacteremia Sepsis, unable to determine POA Acute hypoxic hypercapnic respiratory failure, not POA, resolved AMS due to suspected steroid induced psychosis or hepatic encephalopathy, not POA, resolved Gram positive bacteremia Hyperammonemia due to cirrhosis, resolved Intractable low back pain due to spinal stenosis POA 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 Acute urinary tract infection due to MRSA POA Hypervolemic hyponatremia POA Chronic anemia POA Hyponatremia POA Acute kidney injury on renal insufficiency POA Hyperglycemia due to uncontrolled diabetes POA Hypocalcemia POA Cirrhotic liver with splenomegaly consistent with portal hypertension per CT POA Esophageal varices Renal parenchymal disease per CT POA Hypothyroidism POA Hypocalcemia POA Hyperlipidemia POA Hypertension POA Anxiety disorder POA Depression POA Restless leg syndrome POA Suspected obstructive sleep apnea untreated POA Morbid obesity POA PLAN: MRSA bacteremia Gram positive cocci in clusters, staphylococcus aureus Per ID, IV Vancomycin (Day 8) will be continued Was started on Gentamicin by ID ( day 0 ) Repeat blood cultures everydayuntil negative Contact precautions She will need 6 wks of IV Abx, CM to work on placement Acute hypoxic hypercapnic respiratory failure, resolved Patient is off BIPAP and dexmedetomidine drip Altered Mental Status due to Hepatic Encephalopathy or steroids induced psychosis, resolved Monitor ammonia levels, mental status, and signs of worsening encephalopathy. Discontinue or hold steroids Monitor neuro status and reassess mental status regularly with steroid adjustments. Intractable lower back pain Per Dr. Sanchez, possible diagnosis of discitis and osteomyelitis at L2-L3 along with psoas inflammation. Continue multimodal pain management: acetaminophen, topical agents Low dose pregabalin Currently on dilaudid and [place] 5 Neuro checks q4 Thrombocytopenia due to ITP As per hematology, Continue IVIG and patient improving Monitor CBC daily; trend platelets. Rule out DIC, splenic sequestration (cirrhosis-related), and medication-induced causes. Avoid NSAIDs Acute UTI Monitor for signs of urosepsis Encourage hydration and bladder care Hyponatremia, resolved Monitor serum Na closely; consider fluid restriction if dilutional. Cirrhosis with portal hypertension Monitor for decompensation: encephalopathy, ascites, variceal bleeding. Consider beta sergio for variceal prophylaxis. Monitor LFTs, INR, and ammonia Her MELD- Na score is 24 points, 14-15% estimated 90 day mortality Hyperglycemia (Uncontrolled Diabetes) Per endocrinology, increase lantus to 50 units daily and increase regular insulin to 15 units qac before meals for hyperglycemia Continue high dose SSI Monitor blood glucose QID Educate on diet and insulin compliance; monitor for DKA if concern. Correct electrolytes accordingly. Chronic anemia H/o esophageal varcies due to cirrhosis with portal hypertension Per GI, hold off on EGD given no overt GI bleeding and stable hemoglobin Monitor trends, H&H daily Avoid transfusion unless symptomatic or Hgb <7. ATTESTATION BY PHYSICIAN I have seen and examined the patient. I reviewed the documentation, medical decision making, and treatment plan as noted by the resident provider above. I agree with the findings and plan of care. Cory Pimentel MD [facility] MD May 03, 2025 13:53 KALI ALBERT MD May 04, 2025 00:10
--- NOTE | 2025-05-03 14:09 | PN ---
[facility] PROGRESS NOTE Date Patient Seen: May 03, 2025 Time of Visit: 14:09 Supervising Physician: Dr. 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, POA S/P IGG infusions on 04/30/2025 Acute urinary tract infection due to complicated cystitis 2/2 MRSA POA Hypervolemic hyponatremia, POA Chronic anemia, POA Hyponatremia, POA Acute kidney injury on renal insufficiency POA Hyperglycemia due to uncontrolled diabetes POA Hypocalcemia POA Cirrhotic liver with splenomegaly consistent with portal hypertension per CT POA Liver Lesion lesion that measures 1.3 x 1.1 x 1.7 cm in the right lobe on US Esophageal varices Renal parenchymal disease per CT, POA Hypothyroidism Hyperlipidemia Hypertension Anxiety disorder Depression Restless leg syndrome Suspected OHS Morbid obesity, BMI 47.5 INTERVAL HISTORY: Patient assessed at bedside. AAOX3. Currently on room air. States she feels better overall. Working with PT. Very weak. Denies any pain at this time. Third set of blood cultures positive for gram positive cocci. Repeat blood culture positive for gram positive bacteremia. Cardiology has been consulted for RAMAN, not a candidate for transesophageal echocardiogram due to thrombocytopenia, cirrhosis with esophageal varices, and overall bleeding risk. No family at bedside. Pending acceptance at [facility]. REVIEW OF SYSTEMS: General: No malaise or fever. Neurological: No fainting episodes or seizures. HEENT: No nasal congestion or nasal secretion. Respiratory: No cough, shortness of breath, or wheezing Cardiac: No chest pain or palpitations. Gastrointestinal: No vomiting or diarrhea. Genitourinary: No dysuria hematuria. Skin: No rashes or lesions. Hematological: No bruises or bleeding. Musculoskeletal: No joint pains or arthralgias. Psychiatric: No depression or panic attacks. PHYSICAL EXAM: GENERAL: Patient is awake alert and oriented x3. Cooperative and calm. HEENT: EOMI, Sclera non icteric, moist mucosa NECK: Supple, no JVD, trachea midline LUNGS: Clear breath sounds bilaterally. No wheezes HEART: Regular rate and rhythm. Normal S1 and S2, without murmurs ABD: Abdomen soft, nontender. Bowel sounds present EXT: No clubbing cyanosis or edema NEURO: AAOX3, follows commands Vital Signs (last 8hr) Date Time Temp Pulse Resp B/P (MAP) Pulse Ox O2 Delivery O2 Flow Rate FiO2 05/03/25 11:43 97.9 71 18 137/70 97 Room Air 05/03/25 07:40 97.9 60 17 141/71 98 Room Air 05/03/25 07:01 18 N/A Room Air 21 LABS: Hematology Labs: Test 05/03/25 06:38 Range/Units White Blood Count 7.8 4.8-10.8 K/uL Red Blood Count 3.57 L 4.00-5.50 MIL/uL Hemoglobin 9.1 L 12.0-16.0 g/dL Hematocrit 28.9 L 36-48 % Mean Corpuscular Volume 81.0 79-99 fL Mean Corpuscular Hemoglobin 25.5 L 27.0-33.0 pg Mean Corpuscular Hemoglobin Concent 31.5 L 32.0-36.0 g/dL Red Cell Distribution Width 21.8 H 11.0-15.5 % Platelet Count 42 #L 130-400 K/uL Mean Platelet Volume 10.8 H 7.5-10.5 fL Immature Granulocyte % (Auto) 0.6 0-1 % Neutrophils (%) (Auto) 92.6 H 40.0-77.0 % Lymphocytes (%) (Auto) 3.0 L 21.0-51.0 % Monocytes (%) (Auto) 3.7 3.0-13.0 % Eosinophils (%) (Auto) 0.0 0.0-8.0 % Basophils (%) (Auto) 0.1 0.0-5.0 % Neutrophils # (Auto) 7.2 1.8-7.7 K/uL Lymphocytes # (Auto) 0.2 L 1.0-4.8 K/uL Monocytes # (Auto) 0.3 0.1-1.0 K/uL Eosinophils # (Auto) 0.00 0.00-0.70 K/uL Basophils # (Auto) 0.01 0.00-0.20 K/uL Absolute Immature Granulocyte (auto 0.05 0-1 K/uL Nucleated Red Blood Cells 0.0 0.0-0.19 % White Cell Morphology Comment See comments Platelet Morphology Comment MARKED DECREASE Red Blood Cell Morphology ANISO 1+ Chemistry Labs: Test 05/03/25 11:25 05/03/25 06:38 05/02/25 06:08 05/01/25 15:15 Range/Units Whole Blood Glucose 232 #H 70-110 MG/DL Sodium Level 141 136-145 mmol/L Potassium Level 3.6 3.5-5.1 mmol/L Chloride Level 108 101-111 mmol/L Carbon Dioxide Level 28 21-32 mmol/L Blood Urea Nitrogen 36 H 7-18 mg/dL Creatinine 1.2 H 0.5-1.0 mg/dL Glomerular Filtration Rate Calc 53 >90 mL/min Random Glucose 141 H 70-105 mg/dL Total Calcium 8.5 8.5-10.1 mg/dL C-Reactive Protein, Quantitative 66.20 H 0.5-3.0 mg/L Ammonia 29 11-32 umol/L Bedside Glucose Comment Notified Nurse Coagulation Labs: Test 05/02/25 06:08 Range/Units Prothrombin Time 14.8 H 9.6-11.6 SEC Prothromb Time International Ratio 1.45 H 0.85-1.15 Activated Partial Thromboplast Time 33.9 26.3-35.5 SEC DIAGNOSTICS / RADIOLOGY RESULTS: NA PLAN Per cardiology not a candidate for transesophageal echocardiogram due to thrombocytopenia, cirrhosis with esophageal varices, and overall bleeding risk. BIPAP PRN Monitor hemodynamics Monitor for fevers Continue vancomycin per ID Vancomycin and Gentamicin Pending acceptance at [facility] NEURO: Minimize central acting medications as possible. Maintain fall precautions, adequate lighting during the day PULMONARY: Supplemental 02 as needed. Maintain aspiration precautions at all times CARDIOVASCULAR: Follow hemodynamics. Vital signs per facility protocol GI & NUTRITION: Continue with nutritional support. Continue stool softeners and laxatives as needed. KIDNEYS & ELECTROLYTES: Strict monitoring of intake, output and overall fluid balance. Avoid nephrotoxic medications to the extent possible. Medications to be dosed according to renal function. Monitor electrolytes and replace as needed ENDOCRINE: Maintain blood glucose between 100-180 at all times. Hypoglycemia protocol in place INFECTIOUS DISEASE: Trend temperature, WBC and procalcitonin level Follow cultures, deescalate antibiotics as soon as possible. Panculture if new onset fever ONCOLOGY/HEMATOLOGY/COAGULATION: Monitor for s/s of bleeding Monitor hemoglobin, coagulation studies as needed SKIN: Pressure ulcer prevention per facility protocol Specialty mattress ORTHO/REHAB: Continue PT/OT Prophylaxis: Continue GI and DVT prophylaxis Code Status: Full Resuscitation Disposition: per primary team GABE VAIL NP May 03, 2025 14:09
--- NOTE | 2025-05-03 15:02 | PN ---
FOLLOWUP PROGRESS NOTE SUBJECTIVE: A 54-year-old female with a history of diabetes mellitus and hypertension. The patient presented to the hospital and was found to have persistent bacteremia. The patient's workup is consistent with lumbar osteomyelitis. She remains on the IV antibiotics. She has had acute on chronic renal failure in the hospital. Creatinine has been elevated. The patient's back pain is much improved, and she is being seen as a followup visit for all of the above. REVIEW OF SYSTEMS: CONSTITUTIONAL: She is feeling improved. HEENT: No change in vision. No change in hearing. CARDIOVASCULAR: There is no current chest pain or palpitations. PULMONARY: No shortness of breath. GASTROINTESTINAL: She is tolerating a diet. MUSCULOSKELETAL: The pain is improved. PHYSICAL EXAMINATION: VITAL SIGNS: Blood pressure 141/71, pulse in the 60s, afebrile. GENERAL: Chronically ill female, older than appearing. HEENT: Head is atraumatic. Pupils equal, roving to light. Oropharynx is without exudate. NECK: There is no JVP. CARDIOVASCULAR: Regular. There is no S3 or S4 gallop. LUNGS: Coarse with equal thoracic movement. ABDOMEN: Soft, nondistended and nontender. EXTREMITIES: There is no edema. NEUROLOGICAL: She is awake and alert. LABORATORY DATA: Hemoglobin 9.1, hematocrit 28. Sodium 141, potassium 3.6, BUN 36, creatinine is 1.2. IMPRESSION: * Acute on chronic renal dysfunction. * Persistent bacteremia. * Osteomyelitis. * Obstructive uropathy. PLAN: The patient's creatinine continues to stabilize. The patient continues with the IV antibiotics. She is status post nephrostomy tube placement. The patient is being seen by case management for possible transfer to the [facility]. Electrolytes have all been aggressively repleted. Blood pressure is under adequate control. The patient with multiple questions, all of which were answered. TID: [id number] RECEIPT: [id number]
--- NOTE | 2025-05-03 17:05 | PN ---
Patient states that she is doing a lot better. Her back pain has subsided now. Physical examination: Patient is lying in bed comfortably, she is not in any distress. HEENT. Head is atraumatic, pupils are reactive to light, extraocular muscles are intact. Small bruise on the bridge of the nose. Neck. Supple, no lymphadenopathy. Chest. Decreased air entry to bilateral lung bases. No bronchial breath sounds or wheezing. Heart. S1-S2 regular, no gallop or murmur. Abdomen. Obese, soft, nondistended, nontender, bowel sounds are present. Extremities. Bilateral lower extremity pitting edema. Impression plan: 1. Diskitis. 2. Thrombocytopenia, chronic, secondary to chronic liver disease/portal hypertension. 3. Acute respiratory failure, improved. 4. Hepatic encephalopathy, improved. 5. History of lupus. 6. Essential hypertension. 7. Morbid obesity. 8. Type 2 diabetes mellitus. Patient is doing better, on antibiotics per Dr. Bender. Platelets have been stable. Continue current care. Vitals/Labs Vital Signs Date Time Temp Pulse Resp B/P (MAP) Pulse Ox O2 Delivery O2 Flow Rate FiO2 05/03/25 15:48 97.7 73 17 116/55 98 Room Air 05/03/25 08:24 0 21 Laboratory Tests 05/03/25 06:38 Medications Current Medications Sodium Chloride 1,000 ml @ 0 mls/hr ONCE ONCE IV Last administered on 04/22/25at 17:27; Start 04/22/25 at 17:00; Stop 04/22/25 at 17:01; Status DC Ceftriaxone Sodium 1 gm ONCE ONCE IVPB Last administered on 04/22/25at 19:43; Start 04/22/25 at 19:00; Stop 04/22/25 at 19:01; Status DC Acetaminophen 650 mg Q6H PRN PO Last administered on 04/23/25at 10:02; Start 04/22/25 at 20:00; Stop 05/22/25 at 19:59 Acetaminophen 650 mg Q4H PRN PO Last administered on 04/30/25at 06:17; Start 04/22/25 at 20:00; Stop 05/22/25 at 19:59 Ondansetron HCl 4 mg Q6H PRN IV Last administered on 04/22/25at 20:10; Start 04/22/25 at 20:00; Stop 05/22/25 at 19:59 Famotidine 20 mg DAILY PO Last administered on 04/23/25at 09:33; Start 04/23/25 at 09:00; Stop 04/24/25 at 09:48; Status DC Ceftriaxone Sodium 1 gm/ Sodium Chloride 50 ml @ 100 mls/hr BID IV; Start 04/22/25 at 21:00; Stop 04/22/25 at 19:59; Status DC Lactated Ringer's 1,000 ml @ 100 mls/hr Q10H IV Last administered on 04/23/25at 06:00; Start 04/22/25 at 20:00; Stop 04/23/25 at 10:09; Status DC Insulin Human Regular INSULIN SLIDING SCAL... ACHS SQ Last administered on 04/24/25at 11:18; Start 04/22/25 at 21:00; Stop 04/24/25 at 16:16; Status DC Dextrose 50 ml AD PRN IV; Start 04/22/25 at 20:00; Stop 05/22/25 at 19:59 Glucagon 1 mg AD PRN IM; Start 04/22/25 at 20:00; Stop 05/22/25 at 19:59 Magnesium Sulfate 50 ml @ 0 mls/hr PROTOCOL PRN IV; Start 04/22/25 at 20:00; Stop 05/22/25 at 19:59 Potassium Chloride 100 ml @ 100 mls/hr AD PRN IV; Start 04/22/25 at 20:00; Stop 05/22/25 at 19:59 Potassium Chloride 20 meq AD PRN PO; Start 04/22/25 at 20:00; Stop 05/22/25 at 19:59 Potassium Chloride 20 meq AD PRN PO Last administered on 05/03/25at 13:10; Start 04/22/25 at 20:00; Stop 05/22/25 at 19:59 Ceftriaxone Sodium 1 gm BID IVPB; Start 04/22/25 at 21:00; Stop 04/22/25 at 20:44; Status DC Morphine Sulfate 4 mg ONCE ONCE IVP Last administered on 04/22/25at 20:11; Start 04/22/25 at 20:30; Stop 04/22/25 at 20:31; Status DC Lidocaine 1 each ONCE ONCE TP Last administered on 04/22/25at 21:14; Start 04/22/25 at 21:00; Stop 04/22/25 at 21:01; Status DC Ceftriaxone Sodium 1 gm BID IVPB Last administered on 04/25/25at 09:44; Start 04/23/25 at 09:00; Stop 04/25/25 at 12:36; Status DC Methylprednisolone Sodium Succinate 125 mg Q6H IVP Last administered on 04/25/25at 09:45; Start 04/23/25 at 08:00; Stop 04/28/25 at 09:10; Status DC Albuterol Sulfate 1.25 ONCE ONCE IH Last administered on 04/23/25at 09:40; Start 04/23/25 at 09:30; Stop 04/23/25 at 09:31; Status DC Calcium Gluconate 1 gm ONCE ONCE IV Last administered on 04/23/25at 10:55; Start 04/23/25 at 10:30; Stop 04/23/25 at 10:31; Status DC Sodium Chloride 50 ml @ 0 mls/hr ONCE ONCE IV Last administered on 04/23/25at 11:00; Start 04/23/25 at 11:00; Stop 04/23/25 at 11:01; Status DC Sodium Zirconium Cyclosilicate 10 gm ONCE ONCE PO Last administered on 04/23/25at 14:14; Start 04/23/25 at 14:00; Stop 04/23/25 at 16:08; Status DC Hydromorphone HCl 0.5 mg Q6H PRN IVP Last administered on 04/25/25at 04:14; Start 04/23/25 at 14:00; Stop 04/25/25 at 08:25; Status DC Sodium Zirconium Cyclosilicate 10 gm TID PO; Start 04/23/25 at 21:00; Stop 04/23/25 at 14:11; Status DC Pantoprazole Sodium 40 mg DAILY IVP Last administered on 05/03/25at 08:25; Start 04/24/25 at 10:00; Stop 05/24/25 at 09:59 Pregabalin 75 mg BID PO; Start 04/24/25 at 21:00; Stop 04/24/25 at 14:49; Status DC Vancomycin HCl 1 each AD IV; Start 04/24/25 at 10:30; Stop 04/25/25 at 12:36; Status DC Vancomycin HCl 500 ml @ 250 mls/hr ONCE ONCE IV Last administered on 04/24/25at 12:46; Start 04/24/25 at 11:00; Stop 04/24/25 at 12:59; Status DC Vancomycin HCl 250 ml @ 125 mls/hr Q12H IV Last administered on 04/25/25at 11:43; Start 04/24/25 at 23:00; Stop 04/25/25 at 12:36; Status DC Insulin Glargine 10 units HS SQ; Start 04/24/25 at 21:00; Stop 04/24/25 at 16:57; Status DC Insulin Glargine 10 units ONCE STAT SQ Last administered on 04/24/25at 11:19; Start 04/24/25 at 10:54; Stop 04/24/25 at 11:00; Status DC Atorvastatin Calcium 20 mg HS PO Last administered on 05/02/25at 22:02; Start 04/24/25 at 21:00; Stop 05/24/25 at 20:59 Gabapentin 300 mg BID PO Last administered on 04/25/25at 21:51; Start 04/24/25 at 21:00; Stop 04/28/25 at 09:10; Status DC Levothyroxine Sodium 125 mcg DAILY@0630 PO Last administered on 05/03/25at 06:16; Start 04/25/25 at 06:30; Stop 05/25/25 at 06:29 Metoprolol Succinate 50 mg AM PO Last administered on 05/03/25at 08:24; Start 04/25/25 at 09:00; Stop 05/25/25 at 08:59 Venlafaxine HCl 37.5 mg DAILY PO; Start 04/25/25 at 09:00; Stop 04/24/25 at 14:50; Status DC Pramipexole Dihydrochloride 0.5 mg HS PO Last administered on 05/02/25at 22:02; Start 04/24/25 at 21:00; Stop 05/24/25 at 20:59 Venlafaxine HCl 37.5 mg DAILY PO Last administered on 05/03/25at 08:24; Start 04/24/25 at 16:00; Stop 05/24/25 at 15:59 Insulin Human Regular INSULIN SLIDING SCAL... ACHS SQ Last administered on 04/25/25at 11:57; Start 04/24/25 at 16:30; Stop 04/25/25 at 14:09; Status DC Insulin Glargine 15 units HS SQ; Start 04/24/25 at 21:00; Stop 04/24/25 at 17:06; Status DC Insulin Human Regular 5 unit TIDAC SQ; Start 04/24/25 at 17:00; Stop 04/24/25 at 17:06; Status DC Insulin Glargine 30 units ONCE SQ Last administered on 04/24/25at 18:16; Start 04/24/25 at 17:00; Stop 04/25/25 at 06:19; Status DC Insulin Human Regular 10 unit TIDAC SQ Last administered on 04/25/25at 06:15; Start 04/24/25 at 17:00; Stop 04/25/25 at 06:17; Status DC Tramadol HCl 50 mg Q6H PRN PO Last administered on 04/28/25at 13:55; Start 04/24/25 at 22:30; Stop 04/29/25 at 22:29; Status DC Insulin Human Regular 25 unit TIDAC SQ Last administered on 04/25/25at 17:39; Start 04/25/25 at 07:30; Stop 04/26/25 at 07:58; Status DC Insulin Glargine 70 units ONCE ONCE SQ Last administered on 04/25/25at 06:27; Start 04/25/25 at 06:30; Stop 04/25/25 at 06:31; Status DC Hydromorphone HCl 0.5 mg BIDPRN PRN IVP Last administered on 04/29/25at 23:31; Start 04/25/25 at 19:00; Stop 04/30/25 at 11:59; Status DC Heparin Sodium (Porcine) 5,000 unit Q8H SQ; Start 04/25/25 at 09:00; Stop 04/25/25 at 08:40; Status DC Lactulose 30 gm TID PO Last administered on 04/30/25at 09:16; Start 04/25/25 at 11:00; Stop 04/30/25 at 09:45; Status DC Sodium Chloride 500 ml @ 0 mls/hr Q0M IV; Start 04/25/25 at 11:00; Stop 05/25/25 at 10:59 Trimethoprim/ Sulfamethoxazole 1 tab BID PO Last administered on 04/25/25at 21:51; Start 04/25/25 at 21:00; Stop 04/26/25 at 14:50; Status DC Insulin Human Regular INSULIN SLIDING SCAL... ACHS SQ Last administered on 05/03/25at 13:13; Start 04/25/25 at 16:30; Stop 05/25/25 at 16:29 Diazepam 10 mg ONCE ONCE IM; Start 04/25/25 at 15:00; Stop 04/25/25 at 15:01; Status DC Lactulose 200 gm ONCE ONCE OH Last administered on 04/25/25at 17:30; Start 04/25/25 at 16:30; Stop 04/25/25 at 16:31; Status DC Lorazepam 0.5 mg ONCE ONCE PO Last administered on 04/25/25at 19:07; Start 04/25/25 at 19:00; Stop 04/25/25 at 19:01; Status DC Haloperidol Lactate 1 mg ONCE ONCE IM Last administered on 04/26/25at 05:17; Start 04/26/25 at 05:00; Stop 04/26/25 at 05:02; Status DC Insulin Human Regular 15 unit TIDAC SQ; Start 04/26/25 at 11:30; Stop 04/27/25 at 20:30; Status DC Insulin Glargine 50 units DAILY SQ Last administered on 04/28/25at 08:46; Start 04/26/25 at 09:00; Stop 04/29/25 at 06:49; Status DC Dextrose 1,000 ml @ 75 mls/hr [id number] IV Last administered on 04/29/25at 04:27; Start 04/26/25 at 12:00; Stop 04/30/25 at 09:36; Status DC Dexmedetomidine/ Sodium Chloride 200 mcg PROTOCOL IV; Start 04/26/25 at 12:00; Stop 04/26/25 at 14:54; Status DC Dexmedetomidine/ Sodium Chloride 400 mcg STK-MED ONCE IV; Start 04/26/25 at 14:49; Stop 04/26/25 at 14:50; Status DC Vancomycin HCl 1 each AD IV; Start 04/26/25 at 15:00; Stop 05/10/25 at 14:59 Dexmedetomidine/ Sodium Chloride 400 mcg PROTOCOL STAT IV Last administered on 04/26/25at 15:18; Start 04/26/25 at 14:53; Stop 04/26/25 at 14:58; Status DC Vancomycin HCl 250 ml @ 125 mls/hr Q12H IV Last administered on 04/27/25at 15:22; Start 04/26/25 at 15:30; Stop 04/28/25 at 03:13; Status DC Dexmedetomidine/ Sodium Chloride 400 mcg PROTOCOL PRN IV Last administered on 04/27/25at 23:31; Start 04/26/25 at 19:30; Stop 05/01/25 at 12:45; Status DC Dexmedetomidine/ Sodium Chloride 400 mcg STK-MED ONCE IV Last administered on 04/26/25at 19:14; Start 04/26/25 at 19:10; Stop 04/26/25 at 19:11; Status DC Insulin Human Regular INSULIN SLIDING SCAL... Q4H SQ Last administered on 04/28/25at 06:00; Start 04/27/25 at 20:30; Stop 04/28/25 at 09:11; Status DC Vancomycin HCl 250 ml @ 125 mls/hr Q12H IV; Start 04/28/25 at 15:30; Stop 04/28/25 at 18:53; Status DC Insulin Human Regular 8 unit TIDAC SQ Last administered on 04/30/25at 06:15; Start 04/28/25 at 07:30; Stop 04/30/25 at 07:31; Status DC Vancomycin HCl 250 ml @ 125 mls/hr Q12H IV Last administered on 05/02/25at 10:21; Start 04/28/25 at 20:00; Stop 05/02/25 at 20:34; Status DC Insulin Glargine 40 units DAILY SQ; Start 04/29/25 at 09:00; Stop 04/30/25 at 07:31; Status DC Lidocaine HCl 50 ml STK-MED ONCE .ROUTE; Start 04/29/25 at 16:03; Stop 04/29/25 at 16:06; Status DC Heparin Sodium/ Sodium Chloride 500 ml @ As Directed STK-MED ONCE IV; Start 04/29/25 at 16:03; Stop 04/29/25 at 16:06; Status DC Iodixanol 100 ml STK-MED ONCE .ROUTE; Start 04/29/25 at 16:04; Stop 04/29/25 at 16:06; Status DC Fentanyl Citrate 100 mcg STK-MED ONCE .ROUTE; Start 04/29/25 at 16:27; Stop 04/29/25 at 16:28; Status DC Midazolam HCl 2 mg STK-MED ONCE .ROUTE; Start 04/29/25 at 16:28; Stop 04/29/25 at 16:28; Status DC Midazolam HCl 2 mg STK-MED ONCE .ROUTE; Start 04/29/25 at 16:52; Stop 04/29/25 at 16:52; Status DC Lidocaine 1 each ONCE ONCE TP Last administered on 04/29/25at 19:18; Start 04/29/25 at 18:30; Stop 04/29/25 at 18:33; Status DC Insulin Glargine 50 units DAILY SQ Last administered on 05/03/25at 08:33; Start 04/30/25 at 09:00; Stop 05/30/25 at 08:59 Insulin Human Regular 12 unit TIDAC SQ Last administered on 05/02/25at 06:45; Start 04/30/25 at 07:30; Stop 05/02/25 at 08:05; Status DC Hydromorphone HCl 1 mg TIDP PRN IVP Last administered on 04/30/25at 20:44; Start 04/30/25 at 13:00; Stop 05/01/25 at 18:46; Status DC Acetaminophen/ Hydrocodone Bitart 1 tab Q4H PRN PO Last administered on 04/30/25at 22:07; Start 04/30/25 at 12:00; Stop 05/05/25 at 11:59 Pharmacy Profile Note 1 each ONCE MISC; Start 05/01/25 at 08:00; Stop 04/30/25 at 16:52; Status DC Immune Globulin 400 ml @ 0 mls/hr Q24H IV Last administered on 05/01/25at 16:18; Start 05/01/25 at 14:00; Stop 05/02/25 at 12:38; Status DC Pregabalin 25 mg BID PO Last administered on 05/03/25at 08:24; Start 05/01/25 at 21:00; Stop 05/31/25 at 20:59 Lisinopril 10 mg DAILY PO Last administered on 05/03/25at 08:24; Start 05/02/25 at 09:00; Stop 06/01/25 at 08:59 Diphenhydramine HCl 25 mg ONCE PRN IVP; Start 05/01/25 at 15:00; Stop 05/01/25 at 15:06; Status DC Dexamethasone Sodium Phosphate 20 mg ONCE PRN IV; Start 05/01/25 at 15:00; Stop 05/01/25 at 15:05; Status DC Dexamethasone Sodium Phosphate 20 mg ONCALL IV Last administered on 05/02/25at 15:41; Start 05/01/25 at 15:30; Stop 05/03/25 at 15:31; Status DC Diphenhydramine HCl 25 mg ONCALL IVP Last administered on 05/02/25at 15:41; Start 05/01/25 at 15:30; Stop 05/03/25 at 15:31; Status DC Hydromorphone HCl 1 mg TID PRN IVP; Start 05/01/25 at 19:00; Stop 05/05/25 at 12:59 Insulin Human Regular 15 unit TIDAC SQ Last administered on 05/03/25at 13:14; Start 05/02/25 at 11:30; Stop 06/01/25 at 11:29 Immune Globulin 400 ml @ 0 mls/hr Q24H IV Last administered on 05/02/25at 16:46; Start 05/02/25 at 16:00; Stop 05/03/25 at 16:01; Status DC Vancomycin HCl 250 ml @ 125 mls/hr Q12H9 IV; Start 05/04/25 at 21:00; Stop 05/14/25 at 20:59 Pharmacy Profile Note 1 each ONCE MISC; Start 05/03/25 at 12:00; Stop 05/03/25 at 12:58; Status DC Gentamicin Sulfate/Sodium Chloride 100 ml @ 200 mls/hr Q24H IV Last administered on 05/03/25at 14:09; Start 05/03/25 at 14:00; Stop 05/13/25 at 13:59 LUZ VENTURA MD May 03, 2025 17:05
[2025-05-03] MEDS: IMMUNE GLOBULIN GAMMA 10% IV SCH (17:57)
--- NOTE | 2025-05-03 18:18 | PN ---
endocrinology progress note Date of Service: May 03, 2025 subjective: glucose are elevated and on steroids again. also on ivig hba1c 9.2, home regimen: lantus 30 units daily and humalog 10 units tid before meals. patient glucose are stable. PAST MEDICAL HISTORY: [undiagnosed obstructive sleep apnea, diabetes type 2, hypertension, hyperlipidemia, hypothyroidism, restless leg syndrome, anxiety disorder,depression, lupus and severe morbid obesity ] PAST SURGICAL HISTORY: [ Cholecystectomy, tubal ligation] PAST SOCIAL HISTORY: [ Patient lives with . Patient denies alcohol tobacco and recreational drug use] FAMILY HISTORY: [ Hypertension, diabetes, cardiovascular disease and Alzheimer's disease ] Coded Allergies: No Known Allergies (Unverified Allergy, Unknown, 08/26/14) ASSESSMENT: hyperglycemia due to uncontrolled dm-2 and on steroids now again. glucose are elevated but improving. hba1c 9.2, home regimen: lantus 30 units daily and humalog 10 units tid before meals. Intractable low back pain POA Acute thrombocytopenia POA Acute urinary tract infection POA Chronic anemia POA Hyponatremia POA Acute kidney injury on renal insufficiency POA Hypocalcemia POA Cirrhotic liver with splenomegaly consistent with portal hypertension per CT POA Renal parenchymal disease per CT POA Hypothyroidism POA Hyperlipidemia POA Hypertension POA Anxiety disorder POA Depression POA Restless leg syndrome POA Suspected obstructive sleep apnea untreated POA Morbid obesity POA PLAN: continue lantus 50 units daily hyperglycemia. continue regular insulin 15 units qac before meals and decrease once off steroids. continue high dose ssi monitor glucose qx6 hourly Vitals/Labs Vital Signs Date Time Temp Pulse Resp B/P (MAP) Pulse Ox O2 Delivery O2 Flow Rate FiO2 05/03/25 15:48 97.7 73 17 116/55 98 Room Air 05/03/25 08:24 0 21 Laboratory Tests 05/03/25 06:38 Medications Current Medications Sodium Chloride 1,000 ml @ 0 mls/hr ONCE ONCE IV Last administered on 04/22/25at 17:27; Start 04/22/25 at 17:00; Stop 04/22/25 at 17:01; Status DC Ceftriaxone Sodium 1 gm ONCE ONCE IVPB Last administered on 04/22/25at 19:43; Start 04/22/25 at 19:00; Stop 04/22/25 at 19:01; Status DC Acetaminophen 650 mg Q6H PRN PO Last administered on 04/23/25at 10:02; Start 04/22/25 at 20:00; Stop 05/22/25 at 19:59 Acetaminophen 650 mg Q4H PRN PO Last administered on 04/30/25at 06:17; Start 04/22/25 at 20:00; Stop 05/22/25 at 19:59 Ondansetron HCl 4 mg Q6H PRN IV Last administered on 04/22/25at 20:10; Start 04/22/25 at 20:00; Stop 05/22/25 at 19:59 Famotidine 20 mg DAILY PO Last administered on 04/23/25at 09:33; Start 04/23/25 at 09:00; Stop 04/24/25 at 09:48; Status DC Ceftriaxone Sodium 1 gm/ Sodium Chloride 50 ml @ 100 mls/hr BID IV; Start 04/22/25 at 21:00; Stop 04/22/25 at 19:59; Status DC Lactated Ringer's 1,000 ml @ 100 mls/hr Q10H IV Last administered on 04/23/25at 06:00; Start 04/22/25 at 20:00; Stop 04/23/25 at 10:09; Status DC Insulin Human Regular INSULIN SLIDING SCAL... ACHS SQ Last administered on 04/24/25at 11:18; Start 04/22/25 at 21:00; Stop 04/24/25 at 16:16; Status DC Dextrose 50 ml AD PRN IV; Start 04/22/25 at 20:00; Stop 05/22/25 at 19:59 Glucagon 1 mg AD PRN IM; Start 04/22/25 at 20:00; Stop 05/22/25 at 19:59 Magnesium Sulfate 50 ml @ 0 mls/hr PROTOCOL PRN IV; Start 04/22/25 at 20:00; Stop 05/22/25 at 19:59 Potassium Chloride 100 ml @ 100 mls/hr AD PRN IV; Start 04/22/25 at 20:00; Stop 05/22/25 at 19:59 Potassium Chloride 20 meq AD PRN PO; Start 04/22/25 at 20:00; Stop 05/22/25 at 19:59 Potassium Chloride 20 meq AD PRN PO Last administered on 05/03/25at 13:10; Start 04/22/25 at 20:00; Stop 05/22/25 at 19:59 Ceftriaxone Sodium 1 gm BID IVPB; Start 04/22/25 at 21:00; Stop 04/22/25 at 20:44; Status DC Morphine Sulfate 4 mg ONCE ONCE IVP Last administered on 04/22/25at 20:11; Start 04/22/25 at 20:30; Stop 04/22/25 at 20:31; Status DC Lidocaine 1 each ONCE ONCE TP Last administered on 04/22/25at 21:14; Start 04/22/25 at 21:00; Stop 04/22/25 at 21:01; Status DC Ceftriaxone Sodium 1 gm BID IVPB Last administered on 04/25/25at 09:44; Start 04/23/25 at 09:00; Stop 04/25/25 at 12:36; Status DC Methylprednisolone Sodium Succinate 125 mg Q6H IVP Last administered on 04/25/25at 09:45; Start 04/23/25 at 08:00; Stop 04/28/25 at 09:10; Status DC Albuterol Sulfate 1.25 ONCE ONCE IH Last administered on 04/23/25at 09:40; Start 04/23/25 at 09:30; Stop 04/23/25 at 09:31; Status DC Calcium Gluconate 1 gm ONCE ONCE IV Last administered on 04/23/25at 10:55; Start 04/23/25 at 10:30; Stop 04/23/25 at 10:31; Status DC Sodium Chloride 50 ml @ 0 mls/hr ONCE ONCE IV Last administered on 04/23/25at 11:00; Start 04/23/25 at 11:00; Stop 04/23/25 at 11:01; Status DC Sodium Zirconium Cyclosilicate 10 gm ONCE ONCE PO Last administered on 04/23/25at 14:14; Start 04/23/25 at 14:00; Stop 04/23/25 at 16:08; Status DC Hydromorphone HCl 0.5 mg Q6H PRN IVP Last administered on 04/25/25at 04:14; Start 04/23/25 at 14:00; Stop 04/25/25 at 08:25; Status DC Sodium Zirconium Cyclosilicate 10 gm TID PO; Start 04/23/25 at 21:00; Stop 04/23/25 at 14:11; Status DC Pantoprazole Sodium 40 mg DAILY IVP Last administered on 05/03/25at 08:25; Start 04/24/25 at 10:00; Stop 05/24/25 at 09:59 Pregabalin 75 mg BID PO; Start 04/24/25 at 21:00; Stop 04/24/25 at 14:49; Status DC Vancomycin HCl 1 each AD IV; Start 04/24/25 at 10:30; Stop 04/25/25 at 12:36; Status DC Vancomycin HCl 500 ml @ 250 mls/hr ONCE ONCE IV Last administered on 04/24/25at 12:46; Start 04/24/25 at 11:00; Stop 04/24/25 at 12:59; Status DC Vancomycin HCl 250 ml @ 125 mls/hr Q12H IV Last administered on 04/25/25at 11:43; Start 04/24/25 at 23:00; Stop 04/25/25 at 12:36; Status DC Insulin Glargine 10 units HS SQ; Start 04/24/25 at 21:00; Stop 04/24/25 at 16:57; Status DC Insulin Glargine 10 units ONCE STAT SQ Last administered on 04/24/25at 11:19; Start 04/24/25 at 10:54; Stop 04/24/25 at 11:00; Status DC Atorvastatin Calcium 20 mg HS PO Last administered on 05/02/25at 22:02; Start 04/24/25 at 21:00; Stop 05/24/25 at 20:59 Gabapentin 300 mg BID PO Last administered on 04/25/25at 21:51; Start 04/24/25 at 21:00; Stop 04/28/25 at 09:10; Status DC Levothyroxine Sodium 125 mcg DAILY@0630 PO Last administered on 05/03/25at 06:16; Start 04/25/25 at 06:30; Stop 05/25/25 at 06:29 Metoprolol Succinate 50 mg AM PO Last administered on 05/03/25at 08:24; Start 04/25/25 at 09:00; Stop 05/25/25 at 08:59 Venlafaxine HCl 37.5 mg DAILY PO; Start 04/25/25 at 09:00; Stop 04/24/25 at 14:50; Status DC Pramipexole Dihydrochloride 0.5 mg HS PO Last administered on 05/02/25at 22:02; Start 04/24/25 at 21:00; Stop 05/24/25 at 20:59 Venlafaxine HCl 37.5 mg DAILY PO Last administered on 05/03/25at 08:24; Start 04/24/25 at 16:00; Stop 05/24/25 at 15:59 Insulin Human Regular INSULIN SLIDING SCAL... ACHS SQ Last administered on 04/25/25at 11:57; Start 04/24/25 at 16:30; Stop 04/25/25 at 14:09; Status DC Insulin Glargine 15 units HS SQ; Start 04/24/25 at 21:00; Stop 04/24/25 at 17:06; Status DC Insulin Human Regular 5 unit TIDAC SQ; Start 04/24/25 at 17:00; Stop 04/24/25 at 17:06; Status DC Insulin Glargine 30 units ONCE SQ Last administered on 04/24/25at 18:16; Start 04/24/25 at 17:00; Stop 04/25/25 at 06:19; Status DC Insulin Human Regular 10 unit TIDAC SQ Last administered on 04/25/25at 06:15; Start 04/24/25 at 17:00; Stop 04/25/25 at 06:17; Status DC Tramadol HCl 50 mg Q6H PRN PO Last administered on 04/28/25at 13:55; Start 04/24/25 at 22:30; Stop 04/29/25 at 22:29; Status DC Insulin Human Regular 25 unit TIDAC SQ Last administered on 04/25/25at 17:39; Start 04/25/25 at 07:30; Stop 04/26/25 at 07:58; Status DC Insulin Glargine 70 units ONCE ONCE SQ Last administered on 04/25/25at 06:27; Start 04/25/25 at 06:30; Stop 04/25/25 at 06:31; Status DC Hydromorphone HCl 0.5 mg BIDPRN PRN IVP Last administered on 04/29/25at 23:31; Start 04/25/25 at 19:00; Stop 04/30/25 at 11:59; Status DC Heparin Sodium (Porcine) 5,000 unit Q8H SQ; Start 04/25/25 at 09:00; Stop 04/25/25 at 08:40; Status DC Lactulose 30 gm TID PO Last administered on 04/30/25at 09:16; Start 04/25/25 at 11:00; Stop 04/30/25 at 09:45; Status DC Sodium Chloride 500 ml @ 0 mls/hr Q0M IV; Start 04/25/25 at 11:00; Stop 05/25/25 at 10:59 Trimethoprim/ Sulfamethoxazole 1 tab BID PO Last administered on 04/25/25at 21:51; Start 04/25/25 at 21:00; Stop 04/26/25 at 14:50; Status DC Insulin Human Regular INSULIN SLIDING SCAL... ACHS SQ Last administered on 05/03/25at 17:14; Start 04/25/25 at 16:30; Stop 05/25/25 at 16:29 Diazepam 10 mg ONCE ONCE IM; Start 04/25/25 at 15:00; Stop 04/25/25 at 15:01; Status DC Lactulose 200 gm ONCE ONCE TN Last administered on 04/25/25at 17:30; Start 04/25/25 at 16:30; Stop 04/25/25 at 16:31; Status DC Lorazepam 0.5 mg ONCE ONCE PO Last administered on 04/25/25at 19:07; Start 04/25/25 at 19:00; Stop 04/25/25 at 19:01; Status DC Haloperidol Lactate 1 mg ONCE ONCE IM Last administered on 04/26/25at 05:17; Start 04/26/25 at 05:00; Stop 04/26/25 at 05:02; Status DC Insulin Human Regular 15 unit TIDAC SQ; Start 04/26/25 at 11:30; Stop 04/27/25 at 20:30; Status DC Insulin Glargine 50 units DAILY SQ Last administered on 04/28/25at 08:46; Start 04/26/25 at 09:00; Stop 04/29/25 at 06:49; Status DC Dextrose 1,000 ml @ 75 mls/hr [id number] IV Last administered on 04/29/25at 04:27; Start 04/26/25 at 12:00; Stop 04/30/25 at 09:36; Status DC Dexmedetomidine/ Sodium Chloride 200 mcg PROTOCOL IV; Start 04/26/25 at 12:00; Stop 04/26/25 at 14:54; Status DC Dexmedetomidine/ Sodium Chloride 400 mcg STK-MED ONCE IV; Start 04/26/25 at 14:49; Stop 04/26/25 at 14:50; Status DC Vancomycin HCl 1 each AD IV; Start 04/26/25 at 15:00; Stop 05/10/25 at 14:59 Dexmedetomidine/ Sodium Chloride 400 mcg PROTOCOL STAT IV Last administered on 04/26/25at 15:18; Start 04/26/25 at 14:53; Stop 04/26/25 at 14:58; Status DC Vancomycin HCl 250 ml @ 125 mls/hr Q12H IV Last administered on 04/27/25at 15:22; Start 04/26/25 at 15:30; Stop 04/28/25 at 03:13; Status DC Dexmedetomidine/ Sodium Chloride 400 mcg PROTOCOL PRN IV Last administered on 04/27/25at 23:31; Start 04/26/25 at 19:30; Stop 05/01/25 at 12:45; Status DC Dexmedetomidine/ Sodium Chloride 400 mcg STK-MED ONCE IV Last administered on 04/26/25at 19:14; Start 04/26/25 at 19:10; Stop 04/26/25 at 19:11; Status DC Insulin Human Regular INSULIN SLIDING SCAL... Q4H SQ Last administered on 04/28/25at 06:00; Start 04/27/25 at 20:30; Stop 04/28/25 at 09:11; Status DC Vancomycin HCl 250 ml @ 125 mls/hr Q12H IV; Start 04/28/25 at 15:30; Stop 04/28/25 at 18:53; Status DC Insulin Human Regular 8 unit TIDAC SQ Last administered on 04/30/25at 06:15; Start 04/28/25 at 07:30; Stop 04/30/25 at 07:31; Status DC Vancomycin HCl 250 ml @ 125 mls/hr Q12H IV Last administered on 05/02/25at 10:21; Start 04/28/25 at 20:00; Stop 05/02/25 at 20:34; Status DC Insulin Glargine 40 units DAILY SQ; Start 04/29/25 at 09:00; Stop 04/30/25 at 07:31; Status DC Lidocaine HCl 50 ml STK-MED ONCE .ROUTE; Start 04/29/25 at 16:03; Stop 04/29/25 at 16:06; Status DC Heparin Sodium/ Sodium Chloride 500 ml @ As Directed STK-MED ONCE IV; Start 04/29/25 at 16:03; Stop 04/29/25 at 16:06; Status DC Iodixanol 100 ml STK-MED ONCE .ROUTE; Start 04/29/25 at 16:04; Stop 04/29/25 at 16:06; Status DC Fentanyl Citrate 100 mcg STK-MED ONCE .ROUTE; Start 04/29/25 at 16:27; Stop 04/29/25 at 16:28; Status DC Midazolam HCl 2 mg STK-MED ONCE .ROUTE; Start 04/29/25 at 16:28; Stop 04/29/25 at 16:28; Status DC Midazolam HCl 2 mg STK-MED ONCE .ROUTE; Start 04/29/25 at 16:52; Stop 04/29/25 at 16:52; Status DC Lidocaine 1 each ONCE ONCE TP Last administered on 04/29/25at 19:18; Start 04/29/25 at 18:30; Stop 04/29/25 at 18:33; Status DC Insulin Glargine 50 units DAILY SQ Last administered on 05/03/25at 08:33; Start 04/30/25 at 09:00; Stop 05/30/25 at 08:59 Insulin Human Regular 12 unit TIDAC SQ Last administered on 05/02/25at 06:45; Start 04/30/25 at 07:30; Stop 05/02/25 at 08:05; Status DC Hydromorphone HCl 1 mg TIDP PRN IVP Last administered on 04/30/25at 20:44; Start 04/30/25 at 13:00; Stop 05/01/25 at 18:46; Status DC Acetaminophen/ Hydrocodone Bitart 1 tab Q4H PRN PO Last administered on 04/30/25at 22:07; Start 04/30/25 at 12:00; Stop 05/05/25 at 11:59 Pharmacy Profile Note 1 each ONCE MISC; Start 05/01/25 at 08:00; Stop 04/30/25 at 16:52; Status DC Immune Globulin 400 ml @ 0 mls/hr Q24H IV Last administered on 05/01/25at 16:18; Start 05/01/25 at 14:00; Stop 05/02/25 at 12:38; Status DC Pregabalin 25 mg BID PO Last administered on 05/03/25at 08:24; Start 05/01/25 at 21:00; Stop 05/31/25 at 20:59 Lisinopril 10 mg DAILY PO Last administered on 05/03/25at 08:24; Start 05/02/25 at 09:00; Stop 06/01/25 at 08:59 Diphenhydramine HCl 25 mg ONCE PRN IVP; Start 05/01/25 at 15:00; Stop 05/01/25 at 15:06; Status DC Dexamethasone Sodium Phosphate 20 mg ONCE PRN IV; Start 05/01/25 at 15:00; Stop 05/01/25 at 15:05; Status DC Dexamethasone Sodium Phosphate 20 mg ONCALL IV Last administered on 05/02/25at 15:41; Start 05/01/25 at 15:30; Stop 05/03/25 at 15:31; Status DC Diphenhydramine HCl 25 mg ONCALL IVP Last administered on 05/02/25at 15:41; Start 05/01/25 at 15:30; Stop 05/03/25 at 15:31; Status DC Hydromorphone HCl 1 mg TID PRN IVP; Start 05/01/25 at 19:00; Stop 05/05/25 at 12:59 Insulin Human Regular 15 unit TIDAC SQ Last administered on 05/03/25at 17:15; Start 05/02/25 at 11:30; Stop 06/01/25 at 11:29 Immune Globulin 400 ml @ 0 mls/hr Q24H IV Last administered on 05/02/25at 16:46; Start 05/02/25 at 16:00; Stop 05/03/25 at 16:01; Status DC Vancomycin HCl 250 ml @ 125 mls/hr Q12H9 IV; Start 05/04/25 at 21:00; Stop 05/14/25 at 20:59 Pharmacy Profile Note 1 each ONCE MISC; Start 05/03/25 at 12:00; Stop 05/03/25 at 12:58; Status DC Gentamicin Sulfate/Sodium Chloride 100 ml @ 200 mls/hr Q24H IV Last administered on 05/03/25at 14:09; Start 05/03/25 at 14:00; Stop 05/13/25 at 13:59 Dexamethasone Sodium Phosphate 20 mg ONCALL IV Last administered on 05/03/25at 17:23; Start 05/03/25 at 17:15; Stop 05/03/25 at 17:16; Status DC Diphenhydramine HCl 25 mg ONCALL IVP Last administered on 05/03/25at 17:22; Start 05/03/25 at 17:15; Stop 05/03/25 at 17:16; Status DC Immune Globulin 400 ml @ 0 mls/hr Q24H IV Last administered on 05/03/25at 17:57; Start 05/03/25 at 17:15; Stop 05/03/25 at 17:16; Status DC PARAG VANG MD May 03, 2025 18:18
--- NOTE | 2025-05-03 20:51 | PN ---
INFECTIOUS DISEASE PROGRESS NOTE Date of Service: May 03, 2025 SUBJECTIVE: This is a 54 year old female patient who was seen and examined at bedside in room 314. Patient is status post right nephrostomy tube 04/29/2025. Continues with positive blood cultures. We will add gentamicin to the antibiotic regimen and continue on vancomycin. Patient remains afebrile, temperature is 97.9. Patient was evaluated for a possible RAMAN but she is not a candidate. We will continue to follow patient's care. PHYSICAL EXAM EYES: Anicteric. Pupils equal and reactive. HENT: No oral thrush seen, moist Oral mucosa NECK: Supple, no JVD or thyromegaly. LUNGS: Good air entry. No rales, no rhonchi. Diminished breath sounds. Oxygen support as needed. CARDIOVASCULAR: S1, S2 regular. No murmur heard. ABDOMEN: Soft, non tender, bowel sounds present, no organomegaly. SKIN: No rashes, no swelling. LYMPHATICS: No peripheral lymphadenopathy MUSCULOSKELETAL: No joint swelling, erythema or tenderness. EXTREMITIES: No cyanosis or clubbing BACK: No deformity, no pressure ulcer. Right nephrostomy tube. GENITOURINARY: No dysuria or hematuria, Nolasco catheter. Vital Sign (Last 12 Hours) 05/03/25 05/03/25 11:43 15:48 Temp 97.9 97.7 Pulse 71 73 Resp 18 17 B/P (MAP) 137/70 116/55 Pulse Ox 97 98 O2 Delivery Room Air Room Air Intake & Output (last 24hrs) 05/02/25 05/02/25 05/03/25 15:00 23:00 07:00 Output Total 300 ml 790 ml Balance -300 ml -790 ml LABS: Laboratory: Test 05/03/25 19:49 05/03/25 06:38 05/02/25 19:15 05/02/25 06:08 Range/Units Whole Blood Glucose 255 H 70-110 MG/DL White Blood Count 7.8 4.8-10.8 K/uL Red Blood Count 3.57 L 4.00-5.50 MIL/uL Hemoglobin 9.1 L 12.0-16.0 g/dL Hematocrit 28.9 L 36-48 % Mean Corpuscular Volume 81.0 79-99 fL Mean Corpuscular Hemoglobin 25.5 L 27.0-33.0 pg Mean Corpuscular Hemoglobin Concent 31.5 L 32.0-36.0 g/dL Red Cell Distribution Width 21.8 H 11.0-15.5 % Platelet Count 42 #L 130-400 K/uL Mean Platelet Volume 10.8 H 7.5-10.5 fL Immature Granulocyte % (Auto) 0.6 0-1 % Neutrophils (%) (Auto) 92.6 H 40.0-77.0 % Lymphocytes (%) (Auto) 3.0 L 21.0-51.0 % Monocytes (%) (Auto) 3.7 3.0-13.0 % Eosinophils (%) (Auto) 0.0 0.0-8.0 % Basophils (%) (Auto) 0.1 0.0-5.0 % Neutrophils # (Auto) 7.2 1.8-7.7 K/uL Lymphocytes # (Auto) 0.2 L 1.0-4.8 K/uL Monocytes # (Auto) 0.3 0.1-1.0 K/uL Eosinophils # (Auto) 0.00 0.00-0.70 K/uL Basophils # (Auto) 0.01 0.00-0.20 K/uL Absolute Immature Granulocyte (auto 0.05 0-1 K/uL Nucleated Red Blood Cells 0.0 0.0-0.19 % White Cell Morphology Comment See comments Platelet Morphology Comment MARKED DECREASE Red Blood Cell Morphology ANISO 1+ Sodium Level 141 136-145 mmol/L Potassium Level 3.6 3.5-5.1 mmol/L Chloride Level 108 101-111 mmol/L Carbon Dioxide Level 28 21-32 mmol/L Blood Urea Nitrogen 36 H 7-18 mg/dL Creatinine 1.2 H 0.5-1.0 mg/dL Glomerular Filtration Rate Calc 53 >90 mL/min Random Glucose 141 H 70-105 mg/dL Total Calcium 8.5 8.5-10.1 mg/dL C-Reactive Protein, Quantitative 66.20 H 0.5-3.0 mg/L Vancomycin Level Trough 25.2 #*H 10.0-20.0 UG/ML Prothrombin Time 14.8 H 9.6-11.6 SEC Prothromb Time International Ratio 1.45 H 0.85-1.15 Activated Partial Thromboplast Time 33.9 26.3-35.5 SEC Ammonia 29 11-32 umol/L ASSESSMENT: Persistent Methicillin-resistant Staphylococcus aureus bacteremia. Urinary tract infection with methicillin-resistant Staphylococcus aureus. L2 and L3 intervertebral disc osteomyelitis.. Right Hydronephrosis, s/p right nephrostomy tube placement on 04/29/2025. Non-ketotic hyperglycemia. Urinary retention requiring Nolasco catheter placement. Morbid obesity. Thrombocytopenia. Diabetes mellitus. PLAN: Start gentamicin 80 mg IV Q 24 hours Continue vancomycin per pharmacy protocol. Continue pain management. Continue antidiabetic. Continue GI prophylaxis. Neurosurgeon has evaluated patient. Patient will need IV antibiotics for 6 weeks. Cardiology evaluated patient for a possible RAMAN, but not a candidate. This case was reviewed and discussed with my supervising physician and the above assessment and plan was formulated and agreed upon. ATTESTATION BY PHYSICIAN I have seen and examined the patient. I reviewed the documentation, medical decision making, and treatment plan as noted by the mid-level provider above. I agree with the findings and plan of care. EDNA SOARES MD, [facility]TA L [facility] May 03, 2025 20:51
[2025-05-04] VITALS (8 sets, daily range): BP systolic 136–150; BP diastolic 51–78; PULSE 62–79; RESP 17–19; TEMP 97.8–98.7; O2SAT 96–98
[2025-05-04 06:16] LABS: NUCLEATED RED BLOOD CELLS 0.0 % (0.0-0.19); PLATELET COUNT (AUTO) 31 K/uL (130-400); RED BLOOD CELL COUNT(AUTO) 3.34 MIL/uL (4.00-5.50); RED CELL DISTRIBUTION WIDTH 22.3 % (11.0-15.5); WHITE BLOOD COUNT (AUTO) 7.3 K/uL (4.8-10.8)
[2025-05-04 06:55] LABS: CREATININE 1.2 mg/dL (0.5-1.0); GLOMERULAR FILTR. RATE CALC 53.0 mL/min (>90); GLUCOSE,RANDOM 170.0 mg/dL (70-105); SODIUM SERUM 141.0 mmol/L (136-145); UREA NITROGEN, BLOOD 37.0 mg/dL (7-18)
--- NOTE | 2025-05-04 11:31 | PN ---
Patient does not have any complaints. No back pain. No acute events overnight. Physical examination: Patient is lying in bed comfortably, she is not in any distress. HEENT. Head is atraumatic, pupils are reactive to light, extraocular muscles are intact. Small bruise on the bridge of the nose. Neck. Supple, no lymphadenopathy. Chest. Decreased air entry to bilateral lung bases. No bronchial breath sounds or wheezing. Heart. S1-S2 regular, no gallop or murmur. Abdomen. Obese, soft, nondistended, nontender, bowel sounds are present. Extremities. Bilateral lower extremity pitting edema. Impression plan: 1. Diskitis, MRSA bacteremia 2. Thrombocytopenia, chronic, secondary to chronic liver disease/portal hypertension. 3. Acute respiratory failure, improved. 4. Hepatic encephalopathy, improved. 5. History of lupus. 6. Essential hypertension. 7. Morbid obesity. 8. Type 2 diabetes mellitus. Patient is doing better, on antibiotics per Dr. Bender. Platelets have been stable. Continue current care. Vitals/Labs Vital Signs Date Time Temp Pulse Resp B/P (MAP) Pulse Ox O2 Delivery O2 Flow Rate FiO2 05/04/25 08:00 97.9 66 17 144/78 98 Room Air 05/03/25 18:00 0.0 05/03/25 08:24 21 Laboratory Tests 05/04/25 05:55 Microbiology Date/Time Source Procedure Growth Status 05/03/25 13:06 Blood Blood Culture - Final Complete 05/03/25 12:48 Blood Blood Culture - Final Complete Medications Current Medications Sodium Chloride 1,000 ml @ 0 mls/hr ONCE ONCE IV Last administered on 04/22/25at 17:27; Start 04/22/25 at 17:00; Stop 04/22/25 at 17:01; Status DC Ceftriaxone Sodium 1 gm ONCE ONCE IVPB Last administered on 04/22/25at 19:43; Start 04/22/25 at 19:00; Stop 04/22/25 at 19:01; Status DC Acetaminophen 650 mg Q6H PRN PO Last administered on 04/23/25at 10:02; Start 04/22/25 at 20:00; Stop 05/22/25 at 19:59 Acetaminophen 650 mg Q4H PRN PO Last administered on 04/30/25at 06:17; Start 04/22/25 at 20:00; Stop 05/22/25 at 19:59 Ondansetron HCl 4 mg Q6H PRN IV Last administered on 04/22/25at 20:10; Start 04/22/25 at 20:00; Stop 05/22/25 at 19:59 Famotidine 20 mg DAILY PO Last administered on 04/23/25at 09:33; Start 04/23/25 at 09:00; Stop 04/24/25 at 09:48; Status DC Ceftriaxone Sodium 1 gm/ Sodium Chloride 50 ml @ 100 mls/hr BID IV; Start 04/22/25 at 21:00; Stop 04/22/25 at 19:59; Status DC Lactated Ringer's 1,000 ml @ 100 mls/hr Q10H IV Last administered on 04/23/25at 06:00; Start 04/22/25 at 20:00; Stop 04/23/25 at 10:09; Status DC Insulin Human Regular INSULIN SLIDING SCAL... ACHS SQ Last administered on 04/24/25at 11:18; Start 04/22/25 at 21:00; Stop 04/24/25 at 16:16; Status DC Dextrose 50 ml AD PRN IV; Start 04/22/25 at 20:00; Stop 05/22/25 at 19:59 Glucagon 1 mg AD PRN IM; Start 04/22/25 at 20:00; Stop 05/22/25 at 19:59 Magnesium Sulfate 50 ml @ 0 mls/hr PROTOCOL PRN IV; Start 04/22/25 at 20:00; Stop 05/22/25 at 19:59 Potassium Chloride 100 ml @ 100 mls/hr AD PRN IV; Start 04/22/25 at 20:00; Stop 05/22/25 at 19:59 Potassium Chloride 20 meq AD PRN PO; Start 04/22/25 at 20:00; Stop 05/22/25 at 19:59 Potassium Chloride 20 meq AD PRN PO Last administered on 05/03/25at 13:10; Start 04/22/25 at 20:00; Stop 05/22/25 at 19:59 Ceftriaxone Sodium 1 gm BID IVPB; Start 04/22/25 at 21:00; Stop 04/22/25 at 20:44; Status DC Morphine Sulfate 4 mg ONCE ONCE IVP Last administered on 04/22/25at 20:11; Start 04/22/25 at 20:30; Stop 04/22/25 at 20:31; Status DC Lidocaine 1 each ONCE ONCE TP Last administered on 04/22/25at 21:14; Start 04/22/25 at 21:00; Stop 04/22/25 at 21:01; Status DC Ceftriaxone Sodium 1 gm BID IVPB Last administered on 04/25/25at 09:44; Start 04/23/25 at 09:00; Stop 04/25/25 at 12:36; Status DC Methylprednisolone Sodium Succinate 125 mg Q6H IVP Last administered on 04/25/25at 09:45; Start 04/23/25 at 08:00; Stop 04/28/25 at 09:10; Status DC Albuterol Sulfate 1.25 ONCE ONCE IH Last administered on 04/23/25at 09:40; Start 04/23/25 at 09:30; Stop 04/23/25 at 09:31; Status DC Calcium Gluconate 1 gm ONCE ONCE IV Last administered on 04/23/25at 10:55; Start 04/23/25 at 10:30; Stop 04/23/25 at 10:31; Status DC Sodium Chloride 50 ml @ 0 mls/hr ONCE ONCE IV Last administered on 04/23/25at 11:00; Start 04/23/25 at 11:00; Stop 04/23/25 at 11:01; Status DC Sodium Zirconium Cyclosilicate 10 gm ONCE ONCE PO Last administered on 04/23/25at 14:14; Start 04/23/25 at 14:00; Stop 04/23/25 at 16:08; Status DC Hydromorphone HCl 0.5 mg Q6H PRN IVP Last administered on 04/25/25at 04:14; Start 04/23/25 at 14:00; Stop 04/25/25 at 08:25; Status DC Sodium Zirconium Cyclosilicate 10 gm TID PO; Start 04/23/25 at 21:00; Stop 04/23/25 at 14:11; Status DC Pantoprazole Sodium 40 mg DAILY IVP Last administered on 05/04/25at 09:22; Start 04/24/25 at 10:00; Stop 05/24/25 at 09:59 Pregabalin 75 mg BID PO; Start 04/24/25 at 21:00; Stop 04/24/25 at 14:49; Status DC Vancomycin HCl 1 each AD IV; Start 04/24/25 at 10:30; Stop 04/25/25 at 12:36; Status DC Vancomycin HCl 500 ml @ 250 mls/hr ONCE ONCE IV Last administered on 04/24/25at 12:46; Start 04/24/25 at 11:00; Stop 04/24/25 at 12:59; Status DC Vancomycin HCl 250 ml @ 125 mls/hr Q12H IV Last administered on 04/25/25at 11:43; Start 04/24/25 at 23:00; Stop 04/25/25 at 12:36; Status DC Insulin Glargine 10 units HS SQ; Start 04/24/25 at 21:00; Stop 04/24/25 at 16:57; Status DC Insulin Glargine 10 units ONCE STAT SQ Last administered on 04/24/25at 11:19; Start 04/24/25 at 10:54; Stop 04/24/25 at 11:00; Status DC Atorvastatin Calcium 20 mg HS PO Last administered on 05/03/25at 21:04; Start 04/24/25 at 21:00; Stop 05/24/25 at 20:59 Gabapentin 300 mg BID PO Last administered on 04/25/25at 21:51; Start 04/24/25 at 21:00; Stop 04/28/25 at 09:10; Status DC Levothyroxine Sodium 125 mcg DAILY@0630 PO Last administered on 05/04/25at 06:26; Start 04/25/25 at 06:30; Stop 05/25/25 at 06:29 Metoprolol Succinate 50 mg AM PO Last administered on 05/04/25at 09:21; Start 04/25/25 at 09:00; Stop 05/25/25 at 08:59 Venlafaxine HCl 37.5 mg DAILY PO; Start 04/25/25 at 09:00; Stop 04/24/25 at 14:50; Status DC Pramipexole Dihydrochloride 0.5 mg HS PO Last administered on 05/03/25at 21:04; Start 04/24/25 at 21:00; Stop 05/24/25 at 20:59 Venlafaxine HCl 37.5 mg DAILY PO Last administered on 05/04/25at 09:21; Start 04/24/25 at 16:00; Stop 05/24/25 at 15:59 Insulin Human Regular INSULIN SLIDING SCAL... ACHS SQ Last administered on 04/25/25at 11:57; Start 04/24/25 at 16:30; Stop 04/25/25 at 14:09; Status DC Insulin Glargine 15 units HS SQ; Start 04/24/25 at 21:00; Stop 04/24/25 at 17:06; Status DC Insulin Human Regular 5 unit TIDAC SQ; Start 04/24/25 at 17:00; Stop 04/24/25 at 17:06; Status DC Insulin Glargine 30 units ONCE SQ Last administered on 04/24/25at 18:16; Start 04/24/25 at 17:00; Stop 04/25/25 at 06:19; Status DC Insulin Human Regular 10 unit TIDAC SQ Last administered on 04/25/25at 06:15; Start 04/24/25 at 17:00; Stop 04/25/25 at 06:17; Status DC Tramadol HCl 50 mg Q6H PRN PO Last administered on 04/28/25at 13:55; Start 04/24/25 at 22:30; Stop 04/29/25 at 22:29; Status DC Insulin Human Regular 25 unit TIDAC SQ Last administered on 04/25/25at 17:39; Start 04/25/25 at 07:30; Stop 04/26/25 at 07:58; Status DC Insulin Glargine 70 units ONCE ONCE SQ Last administered on 04/25/25at 06:27; Start 04/25/25 at 06:30; Stop 04/25/25 at 06:31; Status DC Hydromorphone HCl 0.5 mg BIDPRN PRN IVP Last administered on 04/29/25at 23:31; Start 04/25/25 at 19:00; Stop 04/30/25 at 11:59; Status DC Heparin Sodium (Porcine) 5,000 unit Q8H SQ; Start 04/25/25 at 09:00; Stop 04/25/25 at 08:40; Status DC Lactulose 30 gm TID PO Last administered on 04/30/25at 09:16; Start 04/25/25 at 11:00; Stop 04/30/25 at 09:45; Status DC Sodium Chloride 500 ml @ 0 mls/hr Q0M IV; Start 04/25/25 at 11:00; Stop 05/25/25 at 10:59 Trimethoprim/ Sulfamethoxazole 1 tab BID PO Last administered on 04/25/25at 21:51; Start 04/25/25 at 21:00; Stop 04/26/25 at 14:50; Status DC Insulin Human Regular INSULIN SLIDING SCAL... ACHS SQ Last administered on 05/04/25at 11:28; Start 04/25/25 at 16:30; Stop 05/25/25 at 16:29 Diazepam 10 mg ONCE ONCE IM; Start 04/25/25 at 15:00; Stop 04/25/25 at 15:01; Status DC Lactulose 200 gm ONCE ONCE VA Last administered on 04/25/25at 17:30; Start 04/25/25 at 16:30; Stop 04/25/25 at 16:31; Status DC Lorazepam 0.5 mg ONCE ONCE PO Last administered on 04/25/25at 19:07; Start 04/25/25 at 19:00; Stop 04/25/25 at 19:01; Status DC Haloperidol Lactate 1 mg ONCE ONCE IM Last administered on 04/26/25at 05:17; Start 04/26/25 at 05:00; Stop 04/26/25 at 05:02; Status DC Insulin Human Regular 15 unit TIDAC SQ; Start 04/26/25 at 11:30; Stop 04/27/25 at 20:30; Status DC Insulin Glargine 50 units DAILY SQ Last administered on 04/28/25at 08:46; Start 04/26/25 at 09:00; Stop 04/29/25 at 06:49; Status DC Dextrose 1,000 ml @ 75 mls/hr [id number] IV Last administered on 04/29/25at 04:27; Start 04/26/25 at 12:00; Stop 04/30/25 at 09:36; Status DC Dexmedetomidine/ Sodium Chloride 200 mcg PROTOCOL IV; Start 04/26/25 at 12:00; Stop 04/26/25 at 14:54; Status DC Dexmedetomidine/ Sodium Chloride 400 mcg STK-MED ONCE IV; Start 04/26/25 at 14:49; Stop 04/26/25 at 14:50; Status DC Vancomycin HCl 1 each AD IV; Start 04/26/25 at 15:00; Stop 05/10/25 at 14:59 Dexmedetomidine/ Sodium Chloride 400 mcg PROTOCOL STAT IV Last administered on 04/26/25at 15:18; Start 04/26/25 at 14:53; Stop 04/26/25 at 14:58; Status DC Vancomycin HCl 250 ml @ 125 mls/hr Q12H IV Last administered on 04/27/25at 15:22; Start 04/26/25 at 15:30; Stop 04/28/25 at 03:13; Status DC Dexmedetomidine/ Sodium Chloride 400 mcg PROTOCOL PRN IV Last administered on 04/27/25at 23:31; Start 04/26/25 at 19:30; Stop 05/01/25 at 12:45; Status DC Dexmedetomidine/ Sodium Chloride 400 mcg STK-MED ONCE IV Last administered on 04/26/25at 19:14; Start 04/26/25 at 19:10; Stop 04/26/25 at 19:11; Status DC Insulin Human Regular INSULIN SLIDING SCAL... Q4H SQ Last administered on 04/28/25at 06:00; Start 04/27/25 at 20:30; Stop 04/28/25 at 09:11; Status DC Vancomycin HCl 250 ml @ 125 mls/hr Q12H IV; Start 04/28/25 at 15:30; Stop 04/28/25 at 18:53; Status DC Insulin Human Regular 8 unit TIDAC SQ Last administered on 04/30/25at 06:15; Start 04/28/25 at 07:30; Stop 04/30/25 at 07:31; Status DC Vancomycin HCl 250 ml @ 125 mls/hr Q12H IV Last administered on 05/02/25at 10:21; Start 04/28/25 at 20:00; Stop 05/02/25 at 20:34; Status DC Insulin Glargine 40 units DAILY SQ; Start 04/29/25 at 09:00; Stop 04/30/25 at 07:31; Status DC Lidocaine HCl 50 ml STK-MED ONCE .ROUTE; Start 04/29/25 at 16:03; Stop 04/29/25 at 16:06; Status DC Heparin Sodium/ Sodium Chloride 500 ml @ As Directed STK-MED ONCE IV; Start 04/29/25 at 16:03; Stop 04/29/25 at 16:06; Status DC Iodixanol 100 ml STK-MED ONCE .ROUTE; Start 04/29/25 at 16:04; Stop 04/29/25 at 16:06; Status DC Fentanyl Citrate 100 mcg STK-MED ONCE .ROUTE; Start 04/29/25 at 16:27; Stop 04/29/25 at 16:28; Status DC Midazolam HCl 2 mg STK-MED ONCE .ROUTE; Start 04/29/25 at 16:28; Stop 04/29/25 at 16:28; Status DC Midazolam HCl 2 mg STK-MED ONCE .ROUTE; Start 04/29/25 at 16:52; Stop 04/29/25 at 16:52; Status DC Lidocaine 1 each ONCE ONCE TP Last administered on 04/29/25at 19:18; Start 04/29/25 at 18:30; Stop 04/29/25 at 18:33; Status DC Insulin Glargine 50 units DAILY SQ Last administered on 05/04/25at 09:30; Start 04/30/25 at 09:00; Stop 05/30/25 at 08:59 Insulin Human Regular 12 unit TIDAC SQ Last administered on 05/02/25at 06:45; Start 04/30/25 at 07:30; Stop 05/02/25 at 08:05; Status DC Hydromorphone HCl 1 mg TIDP PRN IVP Last administered on 04/30/25at 20:44; Start 04/30/25 at 13:00; Stop 05/01/25 at 18:46; Status DC Acetaminophen/ Hydrocodone Bitart 1 tab Q4H PRN PO Last administered on 04/30/25at 22:07; Start 04/30/25 at 12:00; Stop 05/05/25 at 11:59 Pharmacy Profile Note 1 each ONCE MISC; Start 05/01/25 at 08:00; Stop 04/30/25 at 16:52; Status DC Immune Globulin 400 ml @ 0 mls/hr Q24H IV Last administered on 05/01/25at 16:18; Start 05/01/25 at 14:00; Stop 05/02/25 at 12:38; Status DC Pregabalin 25 mg BID PO Last administered on 05/04/25at 09:22; Start 05/01/25 at 21:00; Stop 05/31/25 at 20:59 Lisinopril 10 mg DAILY PO Last administered on 05/04/25at 09:21; Start 05/02/25 at 09:00; Stop 06/01/25 at 08:59 Diphenhydramine HCl 25 mg ONCE PRN IVP; Start 05/01/25 at 15:00; Stop 05/01/25 at 15:06; Status DC Dexamethasone Sodium Phosphate 20 mg ONCE PRN IV; Start 05/01/25 at 15:00; Stop 05/01/25 at 15:05; Status DC Dexamethasone Sodium Phosphate 20 mg ONCALL IV Last administered on 05/02/25at 15:41; Start 05/01/25 at 15:30; Stop 05/03/25 at 15:31; Status DC Diphenhydramine HCl 25 mg ONCALL IVP Last administered on 05/02/25at 15:41; Start 05/01/25 at 15:30; Stop 05/03/25 at 15:31; Status DC Hydromorphone HCl 1 mg TID PRN IVP; Start 05/01/25 at 19:00; Stop 05/05/25 at 12:59 Insulin Human Regular 15 unit TIDAC SQ Last administered on 05/04/25at 11:29; Start 05/02/25 at 11:30; Stop 06/01/25 at 11:29 Immune Globulin 400 ml @ 0 mls/hr Q24H IV Last administered on 05/02/25at 16:46; Start 05/02/25 at 16:00; Stop 05/03/25 at 16:01; Status DC Vancomycin HCl 250 ml @ 125 mls/hr Q12H9 IV; Start 05/04/25 at 21:00; Stop 05/14/25 at 20:59 Pharmacy Profile Note 1 each ONCE MISC; Start 05/03/25 at 12:00; Stop 05/03/25 at 12:58; Status DC Gentamicin Sulfate/Sodium Chloride 100 ml @ 200 mls/hr Q24H IV Last administered on 05/03/25at 14:09; Start 05/03/25 at 14:00; Stop 05/13/25 at 13:59 Dexamethasone Sodium Phosphate 20 mg ONCALL IV Last administered on 05/03/25at 17:23; Start 05/03/25 at 17:15; Stop 05/03/25 at 17:16; Status DC Diphenhydramine HCl 25 mg ONCALL IVP Last administered on 05/03/25at 17:22; Start 05/03/25 at 17:15; Stop 05/03/25 at 17:16; Status DC Immune Globulin 400 ml @ 0 mls/hr Q24H IV Last administered on 05/03/25at 17:57; Start 05/03/25 at 17:15; Stop 05/03/25 at 17:16; Status DC LUZ VENTURA MD May 04, 2025 11:31
--- NOTE | 2025-05-04 13:17 | PN ---
FOLLOWUP PROGRESS NOTE SUBJECTIVE: A 54-year-old female initially presented, found to have persistent bacteremia. The patient with evidence of osteomyelitis. She has had acute on chronic renal failure in the hospital. Creatinine has been elevated. The patient also with obstructive uropathy, status post nephrostomy tube placement. The patient remains on the IV antibiotics. The patient is being seen by case management for final disposition, which will be the LT[facility], and the patient is being seen as a followup visit for all of the above. REVIEW OF SYSTEMS: CONSTITUTIONAL: She is feeling somewhat improved. HEENT: No change in vision. No change in hearing. CARDIOVASCULAR: There is no current chest pain or palpitations. PULMONARY: No shortness of breath. GASTROINTESTINAL: The patient is tolerating a diet. MUSCULOSKELETAL: Complaints of weakness. PHYSICAL EXAMINATION: VITAL SIGNS: Blood pressure 144/78, pulse in the 60s, afebrile. GENERAL: Chronically ill female, much older than appearing. HEENT: Head is atraumatic. Pupils are equal, roving to light. Oropharynx is without exudate. Nares clear. NECK: There is no JVP. There is no thyromegaly. No mass. CARDIOVASCULAR: Regular. There is no S3 or S4 gallop. LUNGS: Coarse with equal thoracic movement. ABDOMEN: Soft, nondistended, and nontender. EXTREMITIES: Reveal no clubbing or cyanosis. NEUROLOGICAL: She is awake. She is alert. She is at her baseline. LABORATORY DATA: BUN 37, creatinine is 1.2. Hemoglobin 8.6, hematocrit 26. IMPRESSION: * Acute renal failure. * Osteomyelitis. * Diabetes mellitus. * Hypertension. * Lupus. PLAN: The patient continues with the IV antibiotics. Blood cultures continued to be positive. The patient with evidence of osteomyelitis. We will continue to follow closely. The patient is being seen by case management for placement at the LTAC. TID: [id number] RECEIPT: [id number]
--- NOTE | 2025-05-04 14:26 | PN ---
[facility] PROGRESS NOTE Date Patient Seen: May 04, 2025 Time of Visit: 14:26 Supervising Physician: Dr. 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, POA S/P IGG infusions on 04/30/2025 Acute urinary tract infection due to complicated cystitis 2/2 MRSA POA Hypervolemic hyponatremia, POA Chronic anemia, POA Hyponatremia, POA Acute kidney injury on renal insufficiency POA Hyperglycemia due to uncontrolled diabetes POA Hypocalcemia POA Cirrhotic liver with splenomegaly consistent with portal hypertension per CT POA Liver Lesion lesion that measures 1.3 x 1.1 x 1.7 cm in the right lobe on US Esophageal varices Renal parenchymal disease per CT, POA Hypothyroidism Hyperlipidemia Hypertension Anxiety disorder Depression Restless leg syndrome Suspected OHS Morbid obesity, BMI 47.5 INTERVAL HISTORY: Patient assessed at bedside. AAOX3. Currently on room air. States she feels better overall. Denies any pain at this time. Third set of blood cultures positive for gram positive cocci, pending final result. at bedside. No overnight issues per nursing. Pending acceptance at [facility]. REVIEW OF SYSTEMS: General: No malaise or fever. Neurological: No fainting episodes or seizures. HEENT: No nasal congestion or nasal secretion. Respiratory: No cough, shortness of breath, or wheezing Cardiac: No chest pain or palpitations. Gastrointestinal: No vomiting or diarrhea. Genitourinary: No dysuria hematuria. Skin: No rashes or lesions. Hematological: No bruises or bleeding. Musculoskeletal: No joint pains or arthralgias. Psychiatric: No depression or panic attacks. PHYSICAL EXAM: GENERAL: Patient is awake alert and oriented x3. Cooperative and calm. HEENT: EOMI, Sclera non icteric, moist mucosa NECK: Supple, no JVD, trachea midline LUNGS: Clear breath sounds bilaterally. No wheezes HEART: Regular rate and rhythm. Normal S1 and S2, without murmurs ABD: Abdomen soft, nontender. Bowel sounds present EXT: No clubbing cyanosis or edema NEURO: AAOX3, follows commands Vital Signs (last 8hr) Date Time Temp Pulse Resp B/P (MAP) Pulse Ox O2 Delivery O2 Flow Rate FiO2 05/04/25 11:32 98.8 79 17 142/64 95 Room Air 05/04/25 08:00 97.9 66 17 144/78 98 Room Air LABS: Hematology Labs: Test 05/04/25 05:55 05/03/25 06:38 Range/Units White Blood Count 7.3 4.8-10.8 K/uL Red Blood Count 3.34 L 4.00-5.50 MIL/uL Hemoglobin 8.6 L 12.0-16.0 g/dL Hematocrit 26.9 L 36-48 % Mean Corpuscular Volume 80.5 79-99 fL Mean Corpuscular Hemoglobin 25.7 L 27.0-33.0 pg Mean Corpuscular Hemoglobin Concent 32.0 32.0-36.0 g/dL Red Cell Distribution Width 22.3 H 11.0-15.5 % Platelet Count 31 #L 130-400 K/uL Mean Platelet Volume 7.5-10.5 fL Nucleated Red Blood Cells 0.0 0.0-0.19 % Immature Granulocyte % (Auto) 0.6 0-1 % Neutrophils (%) (Auto) 92.6 H 40.0-77.0 % Lymphocytes (%) (Auto) 3.0 L 21.0-51.0 % Monocytes (%) (Auto) 3.7 3.0-13.0 % Eosinophils (%) (Auto) 0.0 0.0-8.0 % Basophils (%) (Auto) 0.1 0.0-5.0 % Neutrophils # (Auto) 7.2 1.8-7.7 K/uL Lymphocytes # (Auto) 0.2 L 1.0-4.8 K/uL Monocytes # (Auto) 0.3 0.1-1.0 K/uL Eosinophils # (Auto) 0.00 0.00-0.70 K/uL Basophils # (Auto) 0.01 0.00-0.20 K/uL Absolute Immature Granulocyte (auto 0.05 0-1 K/uL White Cell Morphology Comment See comments Platelet Morphology Comment MARKED DECREASE Red Blood Cell Morphology ANISO 1+ Chemistry Labs: Test 05/04/25 11:04 05/04/25 05:55 05/03/25 06:38 Range/Units Whole Blood Glucose 291 #H 70-110 MG/DL Sodium Level 141 136-145 mmol/L Potassium Level 4.1 3.5-5.1 mmol/L Chloride Level 109 101-111 mmol/L Carbon Dioxide Level 27 21-32 mmol/L Blood Urea Nitrogen 37 H 7-18 mg/dL Creatinine 1.2 H 0.5-1.0 mg/dL Glomerular Filtration Rate Calc 53 >90 mL/min Random Glucose 170 H 70-105 mg/dL Total Calcium 8.4 L 8.5-10.1 mg/dL C-Reactive Protein, Quantitative 66.20 H 0.5-3.0 mg/L DIAGNOSTICS / RADIOLOGY RESULTS: [ ] PLAN Per cardiology not a candidate for transesophageal echocardiogram due to thrombocytopenia, cirrhosis with esophageal varices, and overall bleeding risk. BIPAP PRN Monitor hemodynamics Monitor for fevers Continue vancomycin per ID Vancomycin and Gentamicin Pending acceptance at [facility] NEURO: Minimize central acting medications as possible. Maintain fall precautions, adequate lighting during the day PULMONARY: Supplemental 02 as needed. Maintain aspiration precautions at all times CARDIOVASCULAR: Follow hemodynamics. Vital signs per facility protocol GI & NUTRITION: Continue with nutritional support. Continue stool softeners and laxatives as needed. KIDNEYS & ELECTROLYTES: Strict monitoring of intake, output and overall fluid balance. Avoid nephrotoxic medications to the extent possible. Medications to be dosed according to renal function. Monitor electrolytes and replace as needed ENDOCRINE: Maintain blood glucose between 100-180 at all times. Hypoglycemia protocol in place INFECTIOUS DISEASE: Trend temperature, WBC and procalcitonin level Follow cultures, deescalate antibiotics as soon as possible. Panculture if new onset fever ONCOLOGY/HEMATOLOGY/COAGULATION: Monitor for s/s of bleeding Monitor hemoglobin, coagulation studies as needed SKIN: Pressure ulcer prevention per facility protocol Specialty mattress ORTHO/REHAB: Continue PT/OT Prophylaxis: Continue GI and DVT prophylaxis Code Status: Full Resuscitation Disposition: per primary team GABE VAIL NP May 04, 2025 14:26
--- NOTE | 2025-05-04 14:50 | PN ---
INFECTIOUS DISEASE PROGRESS NOTE Date of Service: May 04, 2025 SUBJECTIVE: Patient was seen and examined at bedside in room 314. Patient is status post right nephrostomy tube 04/29/2025. Patient remains afebrile, temperature is 98.8 and a WBC of 7.3. We will continue on Vancomycin and gentamicin. No need to repeat blood cultures until patient has received 3 days of gentamicin. Patient need IV antibiotics for 6 weeks. Patient has been referred to [facility] and pending insurance approval. PHYSICAL EXAM EYES: Anicteric. Pupils equal and reactive. HENT: No oral thrush seen, moist Oral mucosa NECK: Supple, no JVD or thyromegaly. LUNGS: Good air entry. No rales, no rhonchi. Diminished breath sounds. Oxygen support as needed. CARDIOVASCULAR: S1, S2 regular. No murmur heard. ABDOMEN: Soft, non tender, bowel sounds present, no organomegaly. SKIN: No rashes, no swelling. LYMPHATICS: No peripheral lymphadenopathy MUSCULOSKELETAL: No joint swelling, erythema or tenderness. EXTREMITIES: No cyanosis or clubbing BACK: No deformity, no pressure ulcer. Right nephrostomy tube. GENITOURINARY: No dysuria or hematuria, Nolasco catheter. Vital Sign (Last 12 Hours) 05/04/25 05/04/25 05/04/25 03:51 08:00 11:32 Temp 98.4 97.9 98.8 Pulse 62 66 79 Resp 18 17 17 B/P (MAP) 150/60 144/78 142/64 Pulse Ox 95 98 95 O2 Delivery Room Air Room Air Room Air Intake & Output (last 24hrs) 05/03/25 05/03/25 05/04/25 15:00 23:00 07:00 Output Total 950 ml 850 ml Balance -950 ml -850 ml LABS: Laboratory: Test 05/04/25 11:04 05/04/25 05:55 05/03/25 21:00 05/03/25 06:38 Range/Units Whole Blood Glucose 291 #H 70-110 MG/DL White Blood Count 7.3 4.8-10.8 K/uL Red Blood Count 3.34 L 4.00-5.50 MIL/uL Hemoglobin 8.6 L 12.0-16.0 g/dL Hematocrit 26.9 L 36-48 % Mean Corpuscular Volume 80.5 79-99 fL Mean Corpuscular Hemoglobin 25.7 L 27.0-33.0 pg Mean Corpuscular Hemoglobin Concent 32.0 32.0-36.0 g/dL Red Cell Distribution Width 22.3 H 11.0-15.5 % Platelet Count 31 #L 130-400 K/uL Mean Platelet Volume 7.5-10.5 fL Nucleated Red Blood Cells 0.0 0.0-0.19 % Sodium Level 141 136-145 mmol/L Potassium Level 4.1 3.5-5.1 mmol/L Chloride Level 109 101-111 mmol/L Carbon Dioxide Level 27 21-32 mmol/L Blood Urea Nitrogen 37 H 7-18 mg/dL Creatinine 1.2 H 0.5-1.0 mg/dL Glomerular Filtration Rate Calc 53 >90 mL/min Random Glucose 170 H 70-105 mg/dL Total Calcium 8.4 L 8.5-10.1 mg/dL Vancomycin Level 10.4 L 20.0-30.0 mcg/mL Immature Granulocyte % (Auto) 0.6 0-1 % Neutrophils (%) (Auto) 92.6 H 40.0-77.0 % Lymphocytes (%) (Auto) 3.0 L 21.0-51.0 % Monocytes (%) (Auto) 3.7 3.0-13.0 % Eosinophils (%) (Auto) 0.0 0.0-8.0 % Basophils (%) (Auto) 0.1 0.0-5.0 % Neutrophils # (Auto) 7.2 1.8-7.7 K/uL Lymphocytes # (Auto) 0.2 L 1.0-4.8 K/uL Monocytes # (Auto) 0.3 0.1-1.0 K/uL Eosinophils # (Auto) 0.00 0.00-0.70 K/uL Basophils # (Auto) 0.01 0.00-0.20 K/uL Absolute Immature Granulocyte (auto 0.05 0-1 K/uL White Cell Morphology Comment See comments Platelet Morphology Comment MARKED DECREASE Red Blood Cell Morphology ANISO 1+ C-Reactive Protein, Quantitative 66.20 H 0.5-3.0 mg/L Test 05/02/25 19:15 Range/Units Vancomycin Level Trough 25.2 #*H 10.0-20.0 UG/ML ASSESSMENT: Persistent Methicillin-resistant Staphylococcus aureus bacteremia. Urinary tract infection with methicillin-resistant Staphylococcus aureus. L2 and L3 intervertebral disc osteomyelitis.. Right Hydronephrosis, s/p right nephrostomy tube placement on 04/29/2025. Non-ketotic hyperglycemia. Urinary retention requiring Nolasco catheter placement. Morbid obesity. Thrombocytopenia. Diabetes mellitus. PLAN: No need to repeat blood cultures until patient has received 3 days of gentamicin. Continue Gentamicin 80 mg IV Q 24 hours Continue vancomycin per pharmacy protocol. Continue pain management. Continue antidiabetic. Continue GI prophylaxis. Neurosurgeon has evaluated patient. Patient will need IV antibiotics for 6 weeks and has been referred to LT[facility].. Cardiology evaluated patient for a possible RAMAN, but not a candidate. This case was reviewed and discussed with my supervising physician and the above assessment and plan was formulated and agreed upon. ATTESTATION BY PHYSICIAN I have seen and examined the patient. I reviewed the documentation, medical decision making, and treatment plan as noted by the mid-level provider above. I agree with the findings and plan of care. EDNA SOARES MD, [facility]TA L [facility] May 04, 2025 14:50
--- NOTE | 2025-05-04 15:43 | PN ---
[facility] PROGRESS NOTE Date of Service: May 04, 2025 Time of Service: 15:42 SUBJECTIVE: This is a 54-year-old female with past medical history of undiagnosed obstructive sleep apnea, diabetes type 2, hypertension, hyperlipidemia, hypothyroidism, restless leg syndrome, anxiety disorder,depression, lupus and severe morbid obesity who presents to the ED for complaints of severe low back pain which started 2 weeks ago and getting worse for the past 2 days and patient reports she is taking prednisone 30mg po daily for her Lupus she said.Patient also reports she was recently seen in this ED for similar complaints and was diagnosed with acute lumbosacral myofascial strain. 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 Urinalysis consistent with urinary tract infection. CT abdomen and pelvis result revealed no acute intra-abdominal or pelvic pathology cirrhotic liver morphology with splenomegaly, consistent with portal hypertension. Bilateral renal cortical thickening may reflect renal parenchymal disease. While in the ER patient received Rocephin 1 g IV, 1 L NS bolus. We will admit patient for further medical management. 04/23/25 Patient was seen and examined at bedside. She was complaining of chest pain early in the morning but her EKG and troponin were normal. Patient says she got liver cirrhosis from taking Tylenol with codeine in the past for a long time. Remarkable labs are Na 129, K 6.4. Cl 98, BUN 44. Cr 1.2 with no anion gap. New EKG shows sinus rhythm with no tall T-waves or shortened QT interval. We will give her a dose of calcium gluconate and lokelma and recheck her labs. we will hold her iv fluids for now. Her urine anion gap is 36.0 mEq/l. Repeat potassium was 4.2 and 4.6. We will order CT lumbar spine and request nephro and cardio consults due to hyponatremia, RTA and cirrhosis with portal hypertension re spectively. We will order lupus, complement , anemia panel due to her abnormal labs and h/o SLE. Hematology recommended solu medrol 125 q6. she might need hydrochloroquine upon discharge for SLE 04/24/25 Patient was seen and examined at bedside. She is complaining of widespread generalized body pain with tender points and generalized weakness, her CPK is going up, we will repeat it and start her on pregabalin. Her labs are improving. She had an EGD done last year that showed grade III varices but lost to follow up with TDS. No GI intervention as her Hb is stable. Will start her on vancomycin. Her home meds have been reconciled. She takes venlaflaxine and pramipexole for depression and restless leg syndrome respectively. Her elevated urine anion gap could be due to BALTAZAR or NSAID induced kidney injury but her creatinine is improving. Pending abdominal ultrasound and CT lumbar spine resul ts. 04/25/25 Patient was seen and examined. She was observed sitting in a chair but was unable to answer questions appropriately and appeared confused. Ammonia level was elevated at 59; lactulose has been initiated at 30 mL TID. She is currently receiving vancomycin for MRSA identified in the urine. Right upper quadrant ultrasound demonstrated chronic hepatic changes with a hypoechoic lesion in the right lobe of the liver, possibly representing a complex cyst. CT of the lumbar spine revealed moderate lumbar spondylosis and diffuse osteopenia. Her platelet count is 37 and showing slow improvement. Dr. Urias, covering for Dr. Lorezno, recommended holding solu-medrol for now. If platelet count declines tomorrow, steroids may need to be restarted. Ammonia and additional labs will be rechecked in the morning. 04/26/25 Patient was seen at bedside. Will request a transfer to the ICU due to worsening agitation and hypercapnic respiratory failure requiring BIPAP support.Will order Precedex drip for sedation to improve tolerance of non-invasive ventilation. Imaging studies including CT head and MRI spine have been ordered to evaluate for underlying neurologic causes. Patient remains hemodynamically stable; pulmonary consult is in place. She is growing gram positive cocci in clusters in her blood, will request ID input on antibiotics as she was on vancomycin previously and was started on bactrim for MRSA in urine. Her platelet count is 36 and solu-medrol is on hold. Ammonia improved from 59 to 12 04/27/25 Patient was evaluated at bedside. She was transferred to the ICU yesterday due to agitation and hypercapnia, requiring a Precedex drip as she was removing her nasal cannula. BiPAP was initiated to support ventilation, and she is now resting comfortably. CT brain was unremarkable with no acute findings. She has a free water deficit of approximately 1.4 liters, for which D5W will be administered. CRP has decreased from 83.5 to 56.4. However, platelets have dropped from 36 to 28, and hematology is closely monitoring her. The patient remains NPO. We wanted to start NG tube feeding but patient has h/o esophageal varices. We will await gastroenterologys recommendations, including possible EGD if indicated. 04/28/25 Patient was evaluated at bedside, she is bed bound not very responsive to questions. She is currently off BiPAP and precedex drip. Her agitation has improved and she is resting comfortably in bed. She has MRSA bacteremia and we will repeat blood cultures. She is currently on vancomycin. She has moderate right hydronephrosis which is increasing, we will request urology consult. Her sodium is trending upwards from 147 to 152 and she has a free water deficit of 2.4 L , we will increase D5 rate from 75 to 150mls/hr. CRP improving from 56.4 to 42.7. Platelets dropped from 28 to 21, we will follow Dr. Lorenzo's recommendations and his plan is give her IgG. She is not bleeding actively. 04/29/25 Patient was evaluated at bedside. She is alert, awake and oriented. She was minimally verbal yesterday but is now more interactive, expressing pain and discussing her medical history. She reports diffuse joint pain and is unable to lift her arms or legs due to significant discomfort. She has generalized joint tenderness and weak sausage smoker strength bilaterally. urologist Dr. Colin recommended nephrostomy tube on her right due to hydronephrosis. Her platelets improved to 44 without any intervention. She will be getting platelets for the procedure. She has infectious spondylodiscitis which could be the source of her bacteremia. We have requested transfer to [facility] but clearing house clerk said Dr. Sanchez has privileges at [facility] and will try to consult him. Her white count went up to 12.2, LFTs mildly going up. We will hold off on gabapentin for now. 04/30/25 Patient was evaluated at bedside. She is alert, awake and oriented. Her vitals are stable. She is interactive, expressing pain and discussing her medical history. She reports diffuse joint pain and is able to lift her arms or legs slightly due to pain and discomfort. Her active and passive range of motions are limited. She has generalized joint tenderness and weak sausage smoker strength bilaterally. She also passed stool more than 5 times yesterday could be due to lactulose which has been stopped from today. A Percutaneous fluroscopy-guided placement of an 8-F nephrostomy catheter was performed,the patient tolerated the procedure well. Neurosurgeon Dr. Sanchez saw the patient and came up with possible diagnosis of discitis and osteomyelitis at L2-L3 along with psoas inflammation. She has spondylolisthesis which is non- critical and can be managed medically for now. According to Dr. Lorenzo she will benefit from IVIg for 3 days on the background of possible ITP. Her current platelet is 41 and Hgb 9.6. Also, Endocrinology team adjusted Insulin regimen. We have requested cardiology consult for suspected endocarditis and will request RAMAN although she has thrombocytopenia and h/o esophageal varices. 05/01/25 Patient was evaluated at bedside. She is alert, awake and oriented. Her vitals are stable, except blood pressure which is 158/80. She reports diffuse joint pain and is able to lift her arms or legs slightly due to pain and discomfort. Her active and passive range of motions are limited. She has generalized joint tenderness and weak sausage smoker strength bilaterally. As per Dr. Lorenzo she will be started IVIG from today for 3 days. As per the Cardiology, she won't undergo RAMAN due thrombocytopenia, cirrhosis, varices. We will continue IV antibiotics and add low dose pregabalin for her pain. 05/02/25 Patient was evaluated at bedside. She is alert, awake and oriented. Her vitals are stable, except blood pressure which is 157/81. Labs showed WBC decreasing from 11.6 to 5.7, platelets from 44 to 32 and random glucose of 226. There has been marked decline in pain. We will continue IV antibiotics and she is receiving Immune globulin every 24 hr. Her Insulin dosage has been adjusted. Blood culture showed gram positive cocci in clusters, STAPHYLOCOCCUS AUREUS. Her prognosis remains guarded. Plan is to discharge her to [facility] for 6 weeks of IV antibiotics. 05/03/25 Patient was evaluated at bedside. She is alert, awake and oriented. Her vitals are stable,and her blood pressure which is 137/70. Labs showed WBC 7.8 , platelets from increasing from 32 to 44 and random glucose of 232. Her creatinine level is 1.2. There has been marked decline in pain and discomfort. We will continue IV antibiotics and she is receiving Immune globulin every 24 hr. Her last dose for Immune globulin is today. Her Insulin dosage has been adjusted. Blood culture showed gram positive cocci. Her prognosis remains guarded. She is on IV vancomycin. Plan is to discharge her to [facility] for 6 weeks of IV antibiotics. 05/04/25: The patient was evaluated at the bedside today. She had just finished showering and reported new-onset slurred speech, facial weakness and word- finding difficulty. She reports no weakness in the extremities. Blood cultures remain positive for gram-positive cocci, specifically MRSA. She is continuing on vancomycin, and gentamicin was initiated yesterday per Infectious Disease recommendations. She has completed a total of three IV IgG infusions. Platelet count is currently 31,000, decreased from 41,000 yesterday. Additionally, the patient has developed a groin rash with associated itching. Physical therapy noted that she was unable to ambulate today and experienced significant difficulty with mobility. We will continue to closely monitor her neurological status, platelet counts, and overall clinical response. Repeat blood cultures will be obtained at an appropriate interval following the initiation of gentamicin, per Infectious Disease guidance. Further assessment and management plan are outlined below. REVIEW OF SYSTEMS CONSTITUTIONAL: No fever, chills, or night sweats. NEUROLOGICAL: Complaints of new onset of slurred speech, facial weakness and difficulty finding words Denies headache, sensory and motor deficit. CARDIOVASCULAR: Denies any exertional angina, dyspnea on exertion, orthopnea, paroxysmal nocturnal dyspnea, palpitations. PULMONARY: Denies any shortness of breath, cough, phlegm/sputum, hemoptysis, pleuritic chest pain. GASTROINTESTINAL: Denies nausea, vomiting, abdominal pain. GENITOURINARY: Denies frequency, urgency, nocturia, hematuria or incontinence. PHYSICAL EXAM GENERAL APPEARANCE: The patient is alert, awake and oriented and bedbound NEUROLOGICAL: No sensory and motor deficits. CHEST: Normal chest expansion. LUNGS: Absence of any rales, rhonchi or any wheezing. CARDIOVASCULAR: Regular. S1 and S2 normal. No appreciable rubs, murmurs or g allops. ABDOMEN: Soft nontender, and nondistended. There is no rebound, voluntary guarding, or rigidity. GENITOURINARY: S/P day 3, Nephrostomy tube on the right side Vital Signs (last 8hr) Date Time Temp Pulse Resp B/P (MAP) Pulse Ox O2 Delivery O2 Flow Rate FiO2 05/04/25 11:32 98.8 79 17 142/64 95 Room Air 05/04/25 08:00 97.9 66 17 144/78 98 Room Air LABS: Laboratory: Test 05/04/25 15:13 05/04/25 05:55 05/03/25 21:00 05/03/25 06:38 Range/Units Whole Blood Glucose 209 H 70-110 MG/DL White Blood Count 7.3 4.8-10.8 K/uL Red Blood Count 3.34 L 4.00-5.50 MIL/uL Hemoglobin 8.6 L 12.0-16.0 g/dL Hematocrit 26.9 L 36-48 % Mean Corpuscular Volume 80.5 79-99 fL Mean Corpuscular Hemoglobin 25.7 L 27.0-33.0 pg Mean Corpuscular Hemoglobin Concent 32.0 32.0-36.0 g/dL Red Cell Distribution Width 22.3 H 11.0-15.5 % Platelet Count 31 #L 130-400 K/uL Mean Platelet Volume 7.5-10.5 fL Nucleated Red Blood Cells 0.0 0.0-0.19 % Sodium Level 141 136-145 mmol/L Potassium Level 4.1 3.5-5.1 mmol/L Chloride Level 109 101-111 mmol/L Carbon Dioxide Level 27 21-32 mmol/L Blood Urea Nitrogen 37 H 7-18 mg/dL Creatinine 1.2 H 0.5-1.0 mg/dL Glomerular Filtration Rate Calc 53 >90 mL/min Random Glucose 170 H 70-105 mg/dL Total Calcium 8.4 L 8.5-10.1 mg/dL Vancomycin Level 10.4 L 20.0-30.0 mcg/mL Immature Granulocyte % (Auto) 0.6 0-1 % Neutrophils (%) (Auto) 92.6 H 40.0-77.0 % Lymphocytes (%) (Auto) 3.0 L 21.0-51.0 % Monocytes (%) (Auto) 3.7 3.0-13.0 % Eosinophils (%) (Auto) 0.0 0.0-8.0 % Basophils (%) (Auto) 0.1 0.0-5.0 % Neutrophils # (Auto) 7.2 1.8-7.7 K/uL Lymphocytes # (Auto) 0.2 L 1.0-4.8 K/uL Monocytes # (Auto) 0.3 0.1-1.0 K/uL Eosinophils # (Auto) 0.00 0.00-0.70 K/uL Basophils # (Auto) 0.01 0.00-0.20 K/uL Absolute Immature Granulocyte (auto 0.05 0-1 K/uL White Cell Morphology Comment See comments Platelet Morphology Comment MARKED DECREASE Red Blood Cell Morphology ANISO 1+ C-Reactive Protein, Quantitative 66.20 H 0.5-3.0 mg/L Test 05/02/25 19:15 Range/Units Vancomycin Level Trough 25.2 #*H 10.0-20.0 UG/ML Current Medications Medications (Trade) Dose Ordered Sig/Roberth Route PRN Reason Start Time Stop Time Status Last Admin Dose Admin Acetaminophen (TYLenol 325MG TAB) 650 mg Q4H PRN PO MILD PAIN (1-3) 04/22/25 20:00 05/22/25 19:59 04/30/25 06:17 650 MG Acetaminophen (TYLenol 325MG TAB) 650 mg Q6H PRN PO TEMPERATURE GREATER THAN 101.5 04/22/25 20:00 05/22/25 19:59 04/23/25 10:02 650 MG Acetaminophen/ Hydrocodone Bitart (NORco 5/325MG) 1 tab Q4H PRN PO MODERATE PAIN (4-6) 04/30/25 12:00 05/05/25 11:59 04/30/25 22:07 1 TAB Atorvastatin Calcium (LIPItor 20MG) 20 mg HS PO 04/24/25 21:00 05/24/25 20:59 05/03/25 21:04 20 MG Ceftriaxone Sodium 1 gm/ Sodium Chloride 50 ml @ 100 mls/hr BID IV 04/22/25 21:00 04/22/25 19:59 DC Ceftriaxone Sodium (ROCEphine 1G INJ) 1 gm BID IVPB 04/22/25 21:00 04/22/25 20:44 DC Ceftriaxone Sodium (ROCEphine 1G INJ) 1 gm BID IVPB 04/23/25 09:00 04/25/25 12:36 DC 04/25/25 09:44 1 GM Dexamethasone Sodium Phosphate (dexaMETHasone 4MG/ML 1ML VIAL) 20 mg ONCALL IV 05/01/25 15:30 05/03/25 15:31 DC 05/02/25 15:41 20 MG Dexamethasone Sodium Phosphate (dexaMETHasone 4MG/ML 1ML VIAL) 20 mg ONCALL IV 05/03/25 17:15 05/03/25 17:16 DC 05/03/25 17:23 20 MG Dexamethasone Sodium Phosphate (dexaMETHasone 4MG/ML 1ML VIAL) 20 mg ONCE PRN IV PRE-MED 05/01/25 15:00 05/01/25 15:05 DC Dexmedetomidine/ Sodium Chloride (PRECEdex 200MCG/ 50ML-NS) 200 mcg PROTOCOL IV 04/26/25 12:00 04/26/25 14:54 DC Dexmedetomidine/ Sodium Chloride (PRECEdex 400MCG/ 100ML-NS) 400 mcg PROTOCOL PRN IV ANXIETY/AGITATION 04/26/25 19:30 05/01/25 12:45 DC 04/27/25 23:31 400 MCG Dexmedetomidine/ Sodium Chloride (PRECEdex 400MCG/ 100ML-NS) 400 mcg PROTOCOL STAT IV 04/26/25 14:53 04/26/25 14:58 DC 04/26/25 15:18 400 MCG Dextrose 1,000 ml @ 75 mls/hr [id number] IV 04/26/25 12:00 04/30/25 09:36 DC 04/29/25 04:27 150 MLS/HR Dextrose (D50w) 50 ml AD PRN IV HYPOGLYCEMIA PROTOCOL 04/22/25 20:00 05/22/25 19:59 Diphenhydramine HCl (BENAdryl INJ) 25 mg ONCALL IVP 05/01/25 15:30 05/03/25 15:31 DC 05/02/25 15:41 25 MG Diphenhydramine HCl (BENAdryl INJ) 25 mg ONCALL IVP 05/03/25 17:15 05/03/25 17:16 DC 05/03/25 17:22 25 MG Diphenhydramine HCl (BENAdryl INJ) 25 mg ONCE PRN IVP PRE-MED 05/01/25 15:00 05/01/25 15:06 DC Famotidine (Pepcid 20mg Tab) 20 mg DAILY PO 04/23/25 09:00 04/24/25 09:48 DC 04/23/25 09:33 20 MG Gabapentin (NEURontin 300 MG CAP) 300 mg BID PO 04/24/25 21:00 04/28/25 09:10 DC 04/25/25 21:51 300 MG Gentamicin Sulfate/Sodium Chloride 100 ml @ 200 mls/hr Q24H IV 05/03/25 14:00 05/13/25 13:59 05/04/25 14:59 200 MLS/HR Glucagon (Glucagon 1mg Kit) 1 mg AD PRN IM HYPOGLYCEMIA PROTOCOL 04/22/25 20:00 05/22/25 19:59 Heparin Sodium (Porcine) (HEParin 5,000 UNIT VIAL) 5,000 unit Q8H SQ 04/25/25 09:00 04/25/25 08:40 DC Hydromorphone HCl (DiLAUDid 0.5MG INJ) 0.5 mg BIDPRN PRN IVP SEVERE PAIN (7-10) 04/25/25 19:00 04/30/25 11:59 DC 04/29/25 23:31 0.5 MG Hydromorphone HCl (DiLAUDid 0.5MG INJ) 0.5 mg Q6H PRN IVP SEVERE PAIN (7-10) 04/23/25 14:00 04/25/25 08:25 DC 04/25/25 04:14 0.5 MG Hydromorphone HCl (DiLAUDid 1MG INJ) 1 mg TID PRN IVP SEVERE PAIN (7-10) 05/01/25 19:00 05/05/25 12:59 Hydromorphone HCl (DiLAUDid 1MG INJ) 1 mg TIDP PRN IVP SEVERE PAIN (7-10) 04/30/25 13:00 05/01/25 18:46 DC 04/30/25 20:44 1 MG Immune Globulin 400 ml @ 0 mls/hr Q24H IV 05/01/25 14:00 05/02/25 12:38 DC 05/01/25 16:18 37.5 MLS/HR Immune Globulin 400 ml @ 0 mls/hr Q24H IV 05/02/25 16:00 05/03/25 16:01 DC 05/02/25 16:46 37.5 MLS/HR Immune Globulin 400 ml @ 0 mls/hr Q24H IV 05/03/25 17:15 05/03/25 17:16 DC 05/03/25 17:57 37.5 MLS/HR Insulin Glargine (LANtus 100 UNITS/ML 10 ML VIAL) 10 units HS SQ 04/24/25 21:00 04/24/25 16:57 DC Insulin Glargine (LANtus 100 UNITS/ML 10 ML VIAL) 10 units ONCE STAT SQ 04/24/25 10:54 04/24/25 11:00 DC 04/24/25 11:19 10 UNITS Insulin Glargine (LANtus 100 UNITS/ML 10 ML VIAL) 15 units HS SQ 04/24/25 21:00 04/24/25 17:06 DC Insulin Glargine (LANtus 100 UNITS/ML 10 ML VIAL) 30 units ONCE SQ 04/24/25 17:00 04/25/25 06:19 DC 04/24/25 18:16 30 UNITS Insulin Glargine (LANtus 100 UNITS/ML 10 ML VIAL) 40 units DAILY SQ 04/29/25 09:00 04/30/25 07:31 DC Insulin Glargine (LANtus 100 UNITS/ML 10 ML VIAL) 50 units DAILY SQ 04/26/25 09:00 04/29/25 06:49 DC 04/28/25 08:46 50 UNITS Insulin Glargine (LANtus 100 UNITS/ML 10 ML VIAL) 50 units DAILY SQ 04/30/25 09:00 05/30/25 08:59 05/04/25 09:30 50 UNITS Insulin Human Regular (humuLIN R 100 UNIT/ML 3ML) 5 unit TIDAC SQ 04/24/25 17:00 04/24/25 17:06 DC Insulin Human Regular (humuLIN R 100 UNIT/ML 3ML) 8 unit TIDAC SQ 04/28/25 07:30 04/30/25 07:31 DC 04/30/25 06:15 8 UNIT Insulin Human Regular (humuLIN R 100 UNIT/ML 3ML) 10 unit TIDAC SQ 04/24/25 17:00 04/25/25 06:17 DC 04/25/25 06:15 10 UNIT Insulin Human Regular (humuLIN R 100 UNIT/ML 3ML) 12 unit TIDAC SQ 04/30/25 07:30 05/02/25 08:05 DC 05/02/25 06:45 12 UNIT Insulin Human Regular (humuLIN R 100 UNIT/ML 3ML) 15 unit TIDAC SQ 05/02/25 11:30 06/01/25 11:29 05/04/25 11:29 15 UNIT Insulin Human Regular (humuLIN R 100 UNIT/ML 3ML) 15 unit TIDAC SQ 04/26/25 11:30 04/27/25 20:30 DC Insulin Human Regular (humuLIN R 100 UNIT/ML 3ML) 25 unit TIDAC SQ 04/25/25 07:30 04/26/25 07:58 DC 04/25/25 17:39 25 UNIT Insulin Human Regular (humuLIN R 100 UNIT/ML 3ML) INSULIN SLIDING SCAL... ACHS SQ 04/22/25 21:00 04/24/25 16:16 DC 04/24/25 11:18 8 UNIT Insulin Human Regular (humuLIN R 100 UNIT/ML 3ML) INSULIN SLIDING SCAL... ACHS SQ 04/24/25 16:30 04/25/25 14:09 DC 04/25/25 11:57 16 UNIT Insulin Human Regular (humuLIN R 100 UNIT/ML 3ML) INSULIN SLIDING SCAL... ACHS SQ 04/25/25 16:30 05/25/25 16:29 05/04/25 11:28 14 UNIT Insulin Human Regular (humuLIN R 100 UNIT/ML 3ML) INSULIN SLIDING SCAL... Q4H SQ 04/27/25 20:30 04/28/25 09:11 DC 04/28/25 06:00 4 UNIT Lactated Ringer's 1,000 ml @ 100 mls/hr Q10H IV 04/22/25 20:00 04/23/25 10:09 DC 04/23/25 06:00 100 MLS/HR Lactulose (Constulose 20gm/ 30ml Udcup) 30 gm TID PO 04/25/25 11:00 04/30/25 09:45 DC 04/30/25 09:16 30 GM Levothyroxine Sodium (SYNTHroid 125MCG TAB) 125 mcg DAILY@0630 PO 04/25/25 06:30 05/25/25 06:29 05/04/25 06:26 125 MCG Lisinopril (Prinivil 10mg) 10 mg DAILY PO 05/02/25 09:00 06/01/25 08:59 05/04/25 09:21 10 MG Magnesium Sulfate 50 ml @ 0 mls/hr PROTOCOL PRN IV OTHER [SEE ORDER COMMENTS] 04/22/25 20:00 05/22/25 19:59 Methylprednisolone Sodium Succinate (Solu-medROL 125MG) 125 mg Q6H IVP 04/23/25 08:00 04/28/25 09:10 DC 04/25/25 09:45 125 MG Metoprolol Succinate (TopROL XL) 50 mg AM PO 04/25/25 09:00 05/25/25 08:59 05/04/25 09:21 50 MG Ondansetron HCl (zoFRAN 4MG INJ) 4 mg Q6H PRN IV NAUSEA/VOMITING 04/22/25 20:00 05/22/25 19:59 04/22/25 20:10 4 MG Pantoprazole Sodium (PROTonix 40MG INJ) 40 mg DAILY IVP 04/24/25 10:00 05/24/25 09:59 05/04/25 09:22 40 MG Pharmacy Profile Note (Pharmacy Communication) 1 each ONCE MISC 05/01/25 08:00 04/30/25 16:52 DC Pharmacy Profile Note (Pharmacy Communication) 1 each ONCE MISC 05/03/25 12:00 05/03/25 12:58 DC Potassium Chloride 100 ml @ 100 mls/hr AD PRN IV POTASSIUM PROTOCOL 04/22/25 20:00 05/22/25 19:59 Potassium Chloride (K-Dur/Klor-Con 20meq) 20 meq AD PRN PO POTASSIUM PROTOCOL 04/22/25 20:00 05/22/25 19:59 05/03/25 13:10 20 MEQ Potassium Chloride (KCl 10% Elixir 20meq/15ml) 20 meq AD PRN PO POTASSIUM PROTOCOL 04/22/25 20:00 05/22/25 19:59 Pramipexole Dihydrochloride (miraPEX 0.25MG TAB) 0.5 mg HS PO 04/24/25 21:00 05/24/25 20:59 05/03/25 21:04 0.5 MG Pregabalin (LYRica 25MG) 25 mg BID PO 05/01/25 21:00 05/31/25 20:59 Hold 05/04/25 09:22 25 MG Pregabalin ([id number]) 75 mg BID PO 04/24/25 21:00 04/24/25 14:49 DC Sodium Chloride 500 ml @ 0 mls/hr Q0M IV 04/25/25 11:00 05/25/25 10:59 Sodium Zirconium Cyclosilicate (Lokelma 10gm Powder) 10 gm TID PO 04/23/25 21:00 04/23/25 14:11 DC Tramadol HCl (UltRAM) 50 mg Q6H PRN PO MODERATE PAIN (4-6) 04/24/25 22:30 04/29/25 22:29 DC 04/28/25 13:55 50 MG Trimethoprim/ Sulfamethoxazole (BactRIM DS) 1 tab BID PO 04/25/25 21:00 04/26/25 14:50 DC 04/25/25 21:51 1 TAB Vancomycin HCl 250 ml @ 125 mls/hr Q12H IV 04/24/25 23:00 04/25/25 12:36 DC 04/25/25 11:43 125 MLS/HR Vancomycin HCl 250 ml @ 125 mls/hr Q12H IV 04/26/25 15:30 04/28/25 03:13 DC 04/27/25 15:22 125 MLS/HR Vancomycin HCl 250 ml @ 125 mls/hr Q12H IV 04/28/25 15:30 04/28/25 18:53 DC Vancomycin HCl 250 ml @ 125 mls/hr Q12H IV 04/28/25 20:00 05/02/25 20:34 DC 05/02/25 10:21 125 MLS/HR Vancomycin HCl 250 ml @ 125 mls/hr Q12H9 IV 05/04/25 21:00 05/14/25 20:59 Vancomycin HCl (Vancomycin Protocol) 1 each AD IV 04/24/25 10:30 04/25/25 12:36 DC Vancomycin HCl (Vancomycin Protocol) 1 each AD IV 04/26/25 15:00 05/10/25 14:59 Venlafaxine HCl (EffEXOR XR 37.5mg CAP) 37.5 mg DAILY PO 04/24/25 16:00 05/24/25 15:59 05/04/25 09:21 37.5 MG Venlafaxine HCl (EffEXOR XR 37.5mg CAP) 37.5 mg DAILY PO 04/25/25 09:00 04/24/25 14:50 DC DIAGNOSTICS / RADIOLOGY: [facility] [address] [place] [address] IMAGING REPORT Addendum PATIENT: LUCÍA CATALAN MR#: [id number] : 1970 SEX: F AGE: 54 LOCATION: 3CH ORDER 1045 STATUS: ADM IN REPORT#: [id number] SERVICE 1044 REASON: verify picc placement ORDERING PHYSICIAN: JA SOARES MD PROCEDURE: [id number] - CHEST 1VW ADDENDUM REPORT ADDENDUM: Results were shared by telephone at 12:47 PM on 05-02-25 and acknowledged by Ja Mera /[facility] EXAM: CR Chest, 2 View. CLINICAL HISTORY: verify picc placement COMPARISON: Radiograph from May 01, 2025 FINDINGS: Right PICC coursing cephalad likely terminating within the right internal jugular vein. Adjustment in repeat imaging to confirm optimal placement. Mild airspace disease within the bilateral perihilar and bibasilar region may reflect atelectasis. No pleural effusion or pneumothorax. Heart size is stable. Mild central pulmonary vascular congestion. IMPRESSION: 1. Right PICC line terminating in right internal jugular vein, requiring adjustment and follow-up imaging. 2. Mild bibasilar and perihilar airspace disease, likely atelectasis. 3. Mild central pulmonary vascular congestion. /[place] DICTATED BY: BROOKLYN LOPEZ Jr., MD DATE: 05/02/25 1251 ELECTRONICALLY SIGNED BY: DATE: EXAM: CR Chest, 2 View. CLINICAL HISTORY: verify picc placement COMPARISON: Radiograph from May 01, 2025 FINDINGS: Right PICC coursing cephalad likely terminating within the right internal jugular vein. Adjustment in repeat imaging to confirm optimal placement. Mild airspace disease within the bilateral perihilar and bibasilar region may reflect atelectasis. No pleural effusion or pneumothorax. Heart size is stable. Mild central pulmonary vascular congestion. IMPRESSION: 1. Right PICC line terminating in right internal jugular vein, requiring adjustment and follow-up imaging. 2. Mild bibasilar and perihilar airspace disease, likely atelectasis. 3. Mild central pulmonary vascular congestion. /[place] DICTATED BY: BROOKLYN LOPEZ Jr., MD DATE: 05/02/25 1238 ELECTRONICALLY SIGNED BY: BROOKLYN LOPEZ Jr., MD DATE: 05/02/25 1238 RUN DATE: 05/04/25 [facility] PAGE 1 RUN TIME: [id number] [address], [place] [address] Department of Laboratories [place] # [id number] Campus Security Officer: Licha Ronquillo DO Specimen Report PATIENT: LUCÍA CATALAN ACCT: [id number] LOC: [facility] U: [id number] AGE/SX: 54/F ROOM: [facility] RE04/22/[address]: CORY MENDOZA MD : 1970 BED: 1 DIS: STATUS: ADM IN TLOC: SPEC: [id number] EVERARDO: 05/03/25 STATUS: COMP REQ: [id number] RECD: 05/03/[address]: YOLANDA CHOW MD SOURCE: BLOOD ENTR: 05/03/25-[address]: [facility] CARLENE CAMARILL[facility] MD,GALINDO SANCHEZ,QASIM MENDOZA,CORY SANDERSON,SANNA STEIN,GABE VANG,PARAG VIAL,QASIM ROBLEDO,CARLENE LORENZO,DANIEL FAY,JOVI DO ORDERED: BLOOD CULTURE COMMENTS: What is the Source? BLOOD Procedure Result Mini Date-Time BLOOD CULT Final 05/04/25-222 GRAM STAIN: GRAM POSITIVE COCCI PEDI BOTTLE 2 OF 2 SETS POSITIVE CALLED TO MAYUR BEVERLY 021Ted ON 05/04/25 [facility] CULTURE REPORT: IDENTIFICATION AND SUSCEPTIBILITIES TO FOLLOW SEE [id number] FOR CULTURE RESULTS RUN DATE: 05/03/25 [facility] PAGE 1 RUN TIME: [phone] [address], [place] [address] Department of Laboratories CLIA # [id number] Campus Security Officer: Licha Ronquillo DO Specimen Report -- PATIENT: LUCÍA CATALAN ACCT: [id number] LOC: [facility] U: [id number] AGE/SX: 54/F ROOM: [facility] RE04/22/[address]: CORY MENDOZA MD : 1970 BED: 1 DIS: STATUS: ADM IN TLOC: SPEC: [id number] EVERARDO: 04/30/25-4262 STATUS: COMP REQ: [id number] RECD: 05/01/25-[address] [address] [address]: KALI ALBERT MD SOURCE: BLOOD ENTR: 05/01/25-[address] [facility] [address]: JA SOARES MD [facility]: BLOOD RABIA,CARLENE COLIN,GALINDO SANCHEZ,QASIM CONNER,VIKRAM SANDERSON,SANNA STEIN,GABE VANG,PARAG ROBLEDO,CARLENE LORENZO,DANIEL FAY,JOVI DO ORDERED: AERO ID & SENS Procedure Result Mini Date-Time AEROBIC ID & SENSITIVITIES Final 05/03/25-623 MRL COLONY DESCRIPTION: DAY 1: GRAM POSITIVE COCCI IN CLUSTERS STAPHYLOCOCCUS AUREUS PEDIATRIC BOTTLE SENSITIVITY TO FOLLOW DAY 2: NO FURTHER WORK-UP DONE COMMENTS(R): PREVIOUS HISTORY OF MRSA NOTIFIED TO [facility] MRSA: NOTE: THIS IS A METHICILLIN-RESISTANT STAPH AUREUS STAPHYLOCOCCUS AUREUS-MRSA MRSA M.I.C. RX --------- ---- CLINDAMYCIN <=0.25 R* ERYTHROMYCIN >4 R GENTAMICIN <=4 S VANCOMYCIN 1 S OXACILLIN CHIQUIS >2 R RIFAMPIN <=1 S TETRACYCLINE <=4 S TRIMETHOPRIM/SUFLAMETHOXAZOLE <=0.5/9.5 S @ [facility] Test Performed at: [facility] [address] [place], [place], [place] Medical Film Or Tape Librarian: Renato Hurt D.O. 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 Suspected Endocarditis, RAMAN deferred due to bleeding risks; unable to rule out endocarditis Status post nephrostomy tube Renate intertrigo Infectious spondylodiscitis L2-L3 Sepsis, unable to determine POA Acute hypoxic hypercapnic respiratory failure, not POA, resolved AMS due to suspected steroid induced psychosis or hepatic encephalopathy, not POA, resolved Hyperammonemia due to cirrhosis, resolved Intractable low back pain due to spinal stenosis POA Acute urinary tract infection due to MRSA POA Hypervolemic hyponatremia POA Chronic anemia POA Hyponatremia POA Acute kidney injury on renal insufficiency POA Hyperglycemia due to uncontrolled diabetes POA Hypocalcemia POA Cirrhotic liver with splenomegaly consistent with portal hypertension per CT POA Esophageal varices Renal parenchymal disease per CT POA Hypothyroidism POA Hypocalcemia POA Hyperlipidemia POA Hypertension POA Anxiety disorder POA Depression POA Restless leg syndrome POA Suspected obstructive sleep apnea untreated POA Morbid obesity POA PLAN: Persistent MRSA bacteremia Osteomyelitis of L2-L3 POA Blood cultures remain positive for gram-positive cocci consistent with MRSA. Currently receiving vancomycin and gentamicin per Infectious Disease (ID) recommendations. Maintain contact precautions for infection control. Repeat blood cultures per Infectious Disease protocol to monitor clearance of bacteremia. Patient will require a 6-week course of IV antibiotics; case management will assist with arranging appropriate placement for long-term IV therapy. Thrombocytopenia due to ITP Received 3 doses of IV IgG; platelet count decreased from 41,000 to 31,000. Continue to follow Hematology recommendations for ongoing management of thrombocytopenia. Monitor platelet counts daily. Rule out DIC: order INR, aPTT, and fibrinogen levels tomorrow. Monitor for bleeding or thrombotic complications. Altered Mental Status due to Hepatic Encephalopathy or steroids induced psychosis, resolved Monitor ammonia levels, mental status, and signs of worsening encephalopathy. Monitor neuro status and reassess mental status regularly with steroid adjustments. Intractable lower back pain Per Dr. Sanchez, possible diagnosis of discitis and osteomyelitis at L2-L3 along with psoas inflammation. Continue multimodal pain management: acetaminophen, topical agents Pregabalin will be discontinued due to concern for possible medication-induced slurred speech. CT head showed no evidence of acute intracranial abnormalities. Currently on dilaudid and [place] 5 Neuro checks q4 Acute UTI Monitor for signs of urosepsis Encourage hydration and bladder care Hyponatremia, resolved Monitor serum Na closely; consider fluid restriction if dilutional. Renate intertrigo The patient was given fluconazole 150 mg 1 dose today. Cirrhosis with portal hypertension Monitor for decompensation: encephalopathy, ascites, variceal bleeding. Consider beta sergio for variceal prophylaxis. Monitor LFTs, INR, and ammonia Her MELD- Na score is 24 points, 14-15% estimated 90 day mortality Hyperglycemia (Uncontrolled Diabetes) Per endocrinology, increase lantus to 50 units daily and increase regular insulin to 15 units qac before meals for hyperglycemia Continue high dose SSI Monitor blood glucose QID Educate on diet and insulin compliance; monitor for DKA if concern. Correct electrolytes accordingly. Chronic anemia H/o esophageal varcies due to cirrhosis with portal hypertension Per GI, hold off on EGD given no overt GI bleeding and stable hemoglobin Monitor trends, H&H daily Avoid transfusion unless symptomatic or Hgb <7. We will order morning labs. Further orders per hospitalization course. ATTESTATION BY PHYSICIAN I have seen and examined the patient. I reviewed the documentation, medical decision making, and treatment plan as noted by the resident provider above. I agree with the findings and plan of care. Cory Mendoza MD, MANALI MD May 04, 2025 15:43
--- NOTE | 2025-05-04 16:57 | HMCIMG ---
EXAM: CT Head Without IV contrast. CLINICAL HISTORY: Slurred speech, R/o Stroke TECHNIQUE: Axial computed tomography images of the head/brain without intravenous contrast. COMPARISON: 04/26/2025. FINDINGS: BRAIN: No evidence of acute hemorrhage. No mass lesion. No CT evidence for acute territorial infarct. No midline shift or extra-axial collections. VENTRICLES: No hydrocephalus. ORBITS: The orbits are unremarkable. SINUSES AND MASTOIDS: The paranasal sinuses and mastoid air cells are clear. BONES: No fracture. SOFT TISSUES: Unremarkable. IMPRESSION: No acute intracranial abnormality. /[place]
[2025-05-04] MEDS: VANCOMYCIN 1G/250ML KIT 250 ML IV SCH (21:13)
--- NOTE | 2025-05-04 23:38 | PN ---
endocrinology progress note Date of Service: May 04, 2025 subjective: glucose are elevated and off steroid snow. also on ivig hba1c 9.2, home regimen: lantus 30 units daily and humalog 10 units tid before meals. patient glucose are improving. PAST MEDICAL HISTORY: [undiagnosed obstructive sleep apnea, diabetes type 2, hypertension, hyperlipidemia, hypothyroidism, restless leg syndrome, anxiety disorder,depression, lupus and severe morbid obesity ] PAST SURGICAL HISTORY: [ Cholecystectomy, tubal ligation] PAST SOCIAL HISTORY: [ Patient lives with . Patient denies alcohol tobacco and recreational drug use] FAMILY HISTORY: [ Hypertension, diabetes, cardiovascular disease and Alzheimer's disease ] Coded Allergies: No Known Allergies (Unverified Allergy, Unknown, 08/26/14) ASSESSMENT: hyperglycemia due to uncontrolled dm-2 and off steroids now. glucose are elevated but improving. hba1c 9.2, home regimen: lantus 30 units daily and humalog 10 units tid before meals. Intractable low back pain POA Acute thrombocytopenia POA Acute urinary tract infection POA Chronic anemia POA Hyponatremia POA Acute kidney injury on renal insufficiency POA Hypocalcemia POA Cirrhotic liver with splenomegaly consistent with portal hypertension per CT POA Renal parenchymal disease per CT POA Hypothyroidism POA Hyperlipidemia POA Hypertension POA Anxiety disorder POA Depression POA Restless leg syndrome POA Suspected obstructive sleep apnea untreated POA Morbid obesity POA PLAN: continue lantus 50 units daily and will decrease as she is off steroid now continue regular insulin 15 units qac before meals and decrease gradually as she is off steroids. continue high dose ssi monitor glucose qx6 hourly Vitals/Labs Vital Signs Date Time Temp Pulse Resp B/P (MAP) Pulse Ox O2 Delivery O2 Flow Rate FiO2 05/04/25 19:45 98.4 72 19 147/61 96 Room Air 05/04/25 09:21 0 21 Laboratory Tests 05/04/25 05:55 Medications Current Medications Sodium Chloride 1,000 ml @ 0 mls/hr ONCE ONCE IV Last administered on 04/22/25at 17:27; Start 04/22/25 at 17:00; Stop 04/22/25 at 17:01; Status DC Ceftriaxone Sodium 1 gm ONCE ONCE IVPB Last administered on 04/22/25at 19:43; Start 04/22/25 at 19:00; Stop 04/22/25 at 19:01; Status DC Acetaminophen 650 mg Q6H PRN PO Last administered on 04/23/25at 10:02; Start 04/22/25 at 20:00; Stop 05/22/25 at 19:59 Acetaminophen 650 mg Q4H PRN PO Last administered on 04/30/25at 06:17; Start 04/22/25 at 20:00; Stop 05/22/25 at 19:59 Ondansetron HCl 4 mg Q6H PRN IV Last administered on 04/22/25at 20:10; Start 04/22/25 at 20:00; Stop 05/22/25 at 19:59 Famotidine 20 mg DAILY PO Last administered on 04/23/25at 09:33; Start 04/23/25 at 09:00; Stop 04/24/25 at 09:48; Status DC Ceftriaxone Sodium 1 gm/ Sodium Chloride 50 ml @ 100 mls/hr BID IV; Start 04/22/25 at 21:00; Stop 04/22/25 at 19:59; Status DC Lactated Ringer's 1,000 ml @ 100 mls/hr Q10H IV Last administered on 04/23/25at 06:00; Start 04/22/25 at 20:00; Stop 04/23/25 at 10:09; Status DC Insulin Human Regular INSULIN SLIDING SCAL... ACHS SQ Last administered on 04/24/25at 11:18; Start 04/22/25 at 21:00; Stop 04/24/25 at 16:16; Status DC Dextrose 50 ml AD PRN IV; Start 04/22/25 at 20:00; Stop 05/22/25 at 19:59 Glucagon 1 mg AD PRN IM; Start 04/22/25 at 20:00; Stop 05/22/25 at 19:59 Magnesium Sulfate 50 ml @ 0 mls/hr PROTOCOL PRN IV; Start 04/22/25 at 20:00; Stop 05/22/25 at 19:59 Potassium Chloride 100 ml @ 100 mls/hr AD PRN IV; Start 04/22/25 at 20:00; Stop 05/22/25 at 19:59 Potassium Chloride 20 meq AD PRN PO; Start 04/22/25 at 20:00; Stop 05/22/25 at 19:59 Potassium Chloride 20 meq AD PRN PO Last administered on 05/03/25at 13:10; Start 04/22/25 at 20:00; Stop 05/22/25 at 19:59 Ceftriaxone Sodium 1 gm BID IVPB; Start 04/22/25 at 21:00; Stop 04/22/25 at 20:44; Status DC Morphine Sulfate 4 mg ONCE ONCE IVP Last administered on 04/22/25at 20:11; Start 04/22/25 at 20:30; Stop 04/22/25 at 20:31; Status DC Lidocaine 1 each ONCE ONCE TP Last administered on 04/22/25at 21:14; Start 04/22/25 at 21:00; Stop 04/22/25 at 21:01; Status DC Ceftriaxone Sodium 1 gm BID IVPB Last administered on 04/25/25at 09:44; Start 04/23/25 at 09:00; Stop 04/25/25 at 12:36; Status DC Methylprednisolone Sodium Succinate 125 mg Q6H IVP Last administered on 04/25/25at 09:45; Start 04/23/25 at 08:00; Stop 04/28/25 at 09:10; Status DC Albuterol Sulfate 1.25 ONCE ONCE IH Last administered on 04/23/25at 09:40; Start 04/23/25 at 09:30; Stop 04/23/25 at 09:31; Status DC Calcium Gluconate 1 gm ONCE ONCE IV Last administered on 04/23/25at 10:55; Start 04/23/25 at 10:30; Stop 04/23/25 at 10:31; Status DC Sodium Chloride 50 ml @ 0 mls/hr ONCE ONCE IV Last administered on 04/23/25at 11:00; Start 04/23/25 at 11:00; Stop 04/23/25 at 11:01; Status DC Sodium Zirconium Cyclosilicate 10 gm ONCE ONCE PO Last administered on 04/23/25at 14:14; Start 04/23/25 at 14:00; Stop 04/23/25 at 16:08; Status DC Hydromorphone HCl 0.5 mg Q6H PRN IVP Last administered on 04/25/25at 04:14; Start 04/23/25 at 14:00; Stop 04/25/25 at 08:25; Status DC Sodium Zirconium Cyclosilicate 10 gm TID PO; Start 04/23/25 at 21:00; Stop 04/23/25 at 14:11; Status DC Pantoprazole Sodium 40 mg DAILY IVP Last administered on 05/04/25at 09:22; Start 04/24/25 at 10:00; Stop 05/24/25 at 09:59 Pregabalin 75 mg BID PO; Start 04/24/25 at 21:00; Stop 04/24/25 at 14:49; Status DC Vancomycin HCl 1 each AD IV; Start 04/24/25 at 10:30; Stop 04/25/25 at 12:36; Status DC Vancomycin HCl 500 ml @ 250 mls/hr ONCE ONCE IV Last administered on 04/24/25at 12:46; Start 04/24/25 at 11:00; Stop 04/24/25 at 12:59; Status DC Vancomycin HCl 250 ml @ 125 mls/hr Q12H IV Last administered on 04/25/25at 11:43; Start 04/24/25 at 23:00; Stop 04/25/25 at 12:36; Status DC Insulin Glargine 10 units HS SQ; Start 04/24/25 at 21:00; Stop 04/24/25 at 16:57; Status DC Insulin Glargine 10 units ONCE STAT SQ Last administered on 04/24/25at 11:19; Start 04/24/25 at 10:54; Stop 04/24/25 at 11:00; Status DC Atorvastatin Calcium 20 mg HS PO Last administered on 05/04/25at 20:42; Start 04/24/25 at 21:00; Stop 05/24/25 at 20:59 Gabapentin 300 mg BID PO Last administered on 04/25/25at 21:51; Start 04/24/25 at 21:00; Stop 04/28/25 at 09:10; Status DC Levothyroxine Sodium 125 mcg DAILY@0630 PO Last administered on 05/04/25at 06:26; Start 04/25/25 at 06:30; Stop 05/25/25 at 06:29 Metoprolol Succinate 50 mg AM PO Last administered on 05/04/25at 09:21; Start 04/25/25 at 09:00; Stop 05/25/25 at 08:59 Venlafaxine HCl 37.5 mg DAILY PO; Start 04/25/25 at 09:00; Stop 04/24/25 at 14:50; Status DC Pramipexole Dihydrochloride 0.5 mg HS PO Last administered on 05/04/25at 20:42; Start 04/24/25 at 21:00; Stop 05/24/25 at 20:59 Venlafaxine HCl 37.5 mg DAILY PO Last administered on 05/04/25at 09:21; Start 04/24/25 at 16:00; Stop 05/24/25 at 15:59 Insulin Human Regular INSULIN SLIDING SCAL... ACHS SQ Last administered on 04/25/25at 11:57; Start 04/24/25 at 16:30; Stop 04/25/25 at 14:09; Status DC Insulin Glargine 15 units HS SQ; Start 04/24/25 at 21:00; Stop 04/24/25 at 17:06; Status DC Insulin Human Regular 5 unit TIDAC SQ; Start 04/24/25 at 17:00; Stop 04/24/25 at 17:06; Status DC Insulin Glargine 30 units ONCE SQ Last administered on 04/24/25at 18:16; Start 04/24/25 at 17:00; Stop 04/25/25 at 06:19; Status DC Insulin Human Regular 10 unit TIDAC SQ Last administered on 04/25/25at 06:15; Start 04/24/25 at 17:00; Stop 04/25/25 at 06:17; Status DC Tramadol HCl 50 mg Q6H PRN PO Last administered on 04/28/25at 13:55; Start 04/24/25 at 22:30; Stop 04/29/25 at 22:29; Status DC Insulin Human Regular 25 unit TIDAC SQ Last administered on 04/25/25at 17:39; Start 04/25/25 at 07:30; Stop 04/26/25 at 07:58; Status DC Insulin Glargine 70 units ONCE ONCE SQ Last administered on 04/25/25at 06:27; Start 04/25/25 at 06:30; Stop 04/25/25 at 06:31; Status DC Hydromorphone HCl 0.5 mg BIDPRN PRN IVP Last administered on 04/29/25at 23:31; Start 04/25/25 at 19:00; Stop 04/30/25 at 11:59; Status DC Heparin Sodium (Porcine) 5,000 unit Q8H SQ; Start 04/25/25 at 09:00; Stop 04/25/25 at 08:40; Status DC Lactulose 30 gm TID PO Last administered on 04/30/25at 09:16; Start 04/25/25 at 11:00; Stop 04/30/25 at 09:45; Status DC Sodium Chloride 500 ml @ 0 mls/hr Q0M IV; Start 04/25/25 at 11:00; Stop 05/25/25 at 10:59 Trimethoprim/ Sulfamethoxazole 1 tab BID PO Last administered on 04/25/25at 21:51; Start 04/25/25 at 21:00; Stop 04/26/25 at 14:50; Status DC Insulin Human Regular INSULIN SLIDING SCAL... ACHS SQ Last administered on 05/04/25at 20:49; Start 04/25/25 at 16:30; Stop 05/25/25 at 16:29 Diazepam 10 mg ONCE ONCE IM; Start 04/25/25 at 15:00; Stop 04/25/25 at 15:01; Status DC Lactulose 200 gm ONCE ONCE IL Last administered on 04/25/25at 17:30; Start 04/25/25 at 16:30; Stop 04/25/25 at 16:31; Status DC Lorazepam 0.5 mg ONCE ONCE PO Last administered on 04/25/25at 19:07; Start 04/25/25 at 19:00; Stop 04/25/25 at 19:01; Status DC Haloperidol Lactate 1 mg ONCE ONCE IM Last administered on 04/26/25at 05:17; Start 04/26/25 at 05:00; Stop 04/26/25 at 05:02; Status DC Insulin Human Regular 15 unit TIDAC SQ; Start 04/26/25 at 11:30; Stop 04/27/25 at 20:30; Status DC Insulin Glargine 50 units DAILY SQ Last administered on 04/28/25at 08:46; Start 04/26/25 at 09:00; Stop 04/29/25 at 06:49; Status DC Dextrose 1,000 ml @ 75 mls/hr [id number] IV Last administered on 04/29/25at 04:27; Start 04/26/25 at 12:00; Stop 04/30/25 at 09:36; Status DC Dexmedetomidine/ Sodium Chloride 200 mcg PROTOCOL IV; Start 04/26/25 at 12:00; Stop 04/26/25 at 14:54; Status DC Dexmedetomidine/ Sodium Chloride 400 mcg STK-MED ONCE IV; Start 04/26/25 at 14:49; Stop 04/26/25 at 14:50; Status DC Vancomycin HCl 1 each AD IV; Start 04/26/25 at 15:00; Stop 05/10/25 at 14:59 Dexmedetomidine/ Sodium Chloride 400 mcg PROTOCOL STAT IV Last administered on 04/26/25at 15:18; Start 04/26/25 at 14:53; Stop 04/26/25 at 14:58; Status DC Vancomycin HCl 250 ml @ 125 mls/hr Q12H IV Last administered on 04/27/25at 15:22; Start 04/26/25 at 15:30; Stop 04/28/25 at 03:13; Status DC Dexmedetomidine/ Sodium Chloride 400 mcg PROTOCOL PRN IV Last administered on 04/27/25at 23:31; Start 04/26/25 at 19:30; Stop 05/01/25 at 12:45; Status DC Dexmedetomidine/ Sodium Chloride 400 mcg STK-MED ONCE IV Last administered on 04/26/25at 19:14; Start 04/26/25 at 19:10; Stop 04/26/25 at 19:11; Status DC Insulin Human Regular INSULIN SLIDING SCAL... Q4H SQ Last administered on 04/28/25at 06:00; Start 04/27/25 at 20:30; Stop 04/28/25 at 09:11; Status DC Vancomycin HCl 250 ml @ 125 mls/hr Q12H IV; Start 04/28/25 at 15:30; Stop 04/28/25 at 18:53; Status DC Insulin Human Regular 8 unit TIDAC SQ Last administered on 04/30/25at 06:15; Start 04/28/25 at 07:30; Stop 04/30/25 at 07:31; Status DC Vancomycin HCl 250 ml @ 125 mls/hr Q12H IV Last administered on 05/02/25at 10:21; Start 04/28/25 at 20:00; Stop 05/02/25 at 20:34; Status DC Insulin Glargine 40 units DAILY SQ; Start 04/29/25 at 09:00; Stop 04/30/25 at 07:31; Status DC Lidocaine HCl 50 ml STK-MED ONCE .ROUTE; Start 04/29/25 at 16:03; Stop 04/29/25 at 16:06; Status DC Heparin Sodium/ Sodium Chloride 500 ml @ As Directed STK-MED ONCE IV; Start 04/29/25 at 16:03; Stop 04/29/25 at 16:06; Status DC Iodixanol 100 ml STK-MED ONCE .ROUTE; Start 04/29/25 at 16:04; Stop 04/29/25 at 16:06; Status DC Fentanyl Citrate 100 mcg STK-MED ONCE .ROUTE; Start 04/29/25 at 16:27; Stop 04/29/25 at 16:28; Status DC Midazolam HCl 2 mg STK-MED ONCE .ROUTE; Start 04/29/25 at 16:28; Stop 04/29/25 at 16:28; Status DC Midazolam HCl 2 mg STK-MED ONCE .ROUTE; Start 04/29/25 at 16:52; Stop 04/29/25 at 16:52; Status DC Lidocaine 1 each ONCE ONCE TP Last administered on 04/29/25at 19:18; Start 04/29/25 at 18:30; Stop 04/29/25 at 18:33; Status DC Insulin Glargine 50 units DAILY SQ Last administered on 05/04/25at 09:30; Start 04/30/25 at 09:00; Stop 05/30/25 at 08:59 Insulin Human Regular 12 unit TIDAC SQ Last administered on 05/02/25at 06:45; Start 04/30/25 at 07:30; Stop 05/02/25 at 08:05; Status DC Hydromorphone HCl 1 mg TIDP PRN IVP Last administered on 04/30/25at 20:44; Start 04/30/25 at 13:00; Stop 05/01/25 at 18:46; Status DC Acetaminophen/ Hydrocodone Bitart 1 tab Q4H PRN PO Last administered on 04/30/25at 22:07; Start 04/30/25 at 12:00; Stop 05/05/25 at 11:59 Pharmacy Profile Note 1 each ONCE MISC; Start 05/01/25 at 08:00; Stop 04/30/25 at 16:52; Status DC Immune Globulin 400 ml @ 0 mls/hr Q24H IV Last administered on 05/01/25at 16:18; Start 05/01/25 at 14:00; Stop 05/02/25 at 12:38; Status DC Pregabalin 25 mg BID PO Last administered on 05/04/25at 09:22; Start 05/01/25 at 21:00; Stop 05/31/25 at 20:59; Status Hold Lisinopril 10 mg DAILY PO Last administered on 05/04/25at 09:21; Start 05/02/25 at 09:00; Stop 06/01/25 at 08:59 Diphenhydramine HCl 25 mg ONCE PRN IVP; Start 05/01/25 at 15:00; Stop 05/01/25 at 15:06; Status DC Dexamethasone Sodium Phosphate 20 mg ONCE PRN IV; Start 05/01/25 at 15:00; Stop 05/01/25 at 15:05; Status DC Dexamethasone Sodium Phosphate 20 mg ONCALL IV Last administered on 05/02/25at 15:41; Start 05/01/25 at 15:30; Stop 05/03/25 at 15:31; Status DC Diphenhydramine HCl 25 mg ONCALL IVP Last administered on 05/02/25at 15:41; Start 05/01/25 at 15:30; Stop 05/03/25 at 15:31; Status DC Hydromorphone HCl 1 mg TID PRN IVP; Start 05/01/25 at 19:00; Stop 05/05/25 at 12:59 Insulin Human Regular 15 unit TIDAC SQ Last administered on 05/04/25at 17:33; Start 05/02/25 at 11:30; Stop 06/01/25 at 11:29 Immune Globulin 400 ml @ 0 mls/hr Q24H IV Last administered on 05/02/25at 16:46; Start 05/02/25 at 16:00; Stop 05/03/25 at 16:01; Status DC Vancomycin HCl 250 ml @ 125 mls/hr Q12H9 IV Last administered on 05/04/25at 21:13; Start 05/04/25 at 21:00; Stop 05/14/25 at 20:59 Pharmacy Profile Note 1 each ONCE MISC; Start 05/03/25 at 12:00; Stop 05/03/25 at 12:58; Status DC Gentamicin Sulfate/Sodium Chloride 100 ml @ 200 mls/hr Q24H IV Last administered on 05/04/25at 14:59; Start 05/03/25 at 14:00; Stop 05/13/25 at 13:59 Dexamethasone Sodium Phosphate 20 mg ONCALL IV Last administered on 05/03/25at 17:23; Start 05/03/25 at 17:15; Stop 05/03/25 at 17:16; Status DC Diphenhydramine HCl 25 mg ONCALL IVP Last administered on 05/03/25at 17:22; Start 05/03/25 at 17:15; Stop 05/03/25 at 17:16; Status DC Immune Globulin 400 ml @ 0 mls/hr Q24H IV Last administered on 05/03/25at 17:57; Start 05/03/25 at 17:15; Stop 05/03/25 at 17:16; Status DC Fluconazole 150 mg ONCE ONCE PO Last administered on 05/04/25at 15:57; Start 05/04/25 at 15:30; Stop 05/04/25 at 15:31; Status DC PARAG VANG MD May 04, 2025 23:38
[2025-05-05] VITALS (7 sets, daily range): BP systolic 122–145; BP diastolic 47–63; PULSE 67–79; RESP 19–21; TEMP 97.7–98.8; O2SAT 95
[2025-05-05 05:33] LABS: IMMATURE GRANULOCYTE ABSOLUTE 0.06 K/uL (0-1); NUCLEATED RED BLOOD CELLS 0.0 % (0.0-0.19); PLATELET COUNT (AUTO) 26 K/uL (130-400); RED BLOOD CELL COUNT(AUTO) 3.36 MIL/uL (4.00-5.50); RED CELL DISTRIBUTION WIDTH 23.3 % (11.0-15.5); WHITE BLOOD COUNT (AUTO) 6.8 K/uL (4.8-10.8)
[2025-05-05 05:43] LABS: INR 1.71 (0.85-1.15)
[2025-05-05 05:49] LABS: CREATININE 1.1 mg/dL (0.5-1.0); GLOMERULAR FILTR. RATE CALC 59.0 mL/min (>90); GLUCOSE,RANDOM 90.0 mg/dL (70-105); SODIUM SERUM 138.0 mmol/L (136-145); UREA NITROGEN, BLOOD 32.0 mg/dL (7-18)
--- NOTE | 2025-05-05 08:23 | PN ---
LOCATION: [facility]. SUBJECTIVE: The patient did very well over the weekend. She is pending transfer to [facility]. She is awake, alert, on IV antibiotics. No bleeding or bruising. Feels quite a bit better since admission. REVIEW OF SYSTEMS: Improved. PHYSICAL EXAMINATION: GENERAL: Shows a pleasant woman. VITAL SIGNS: Blood pressure 140/78, pulse 78, respirations 20. CHEST: Clear. ABDOMEN: Soft. EXTREMITIES: Show no edema. LABORATORY DATA: Reviewed. Last platelet 31,000. IMPRESSION: * Diskitis and MRSA bacteremia. * Thrombocytopenia. * Multifactorial liver disease plus consumption. * Lupus. * Acute respiratory failure. * Hepatic encephalopathy. * Hypertension. * Morbid obesity. * Diabetes. PLAN: Continue antibiotics. I agree with the transfer to [facility]. She will need 4-6 weeks of antibiotics. The patient is medically stable. TID: [id number] RECEIPT: [id number]
--- NOTE | 2025-05-05 09:11 | NUR ---
cm note call made to Johana abtes with [employer], states is no approval yet. is still pending for insurance approval
--- NOTE | 2025-05-05 10:21 | PN ---
FOLLOWUP PROGRESS NOTE SUBJECTIVE: The patient is a 54-year-old female with a history of systemic lupus erythematosus. The patient has history of diabetes mellitus and hypertension. She initially presented with acute renal failure. The patient's renal function has stabilized. Workup is consistent with osteomyelitis. The patient has had persistent bacteremia and remains on antibiotics. The patient is being seen by case management for final disposition, which will be the [facility], and she is being seen as a followup visit for all of the above. REVIEW OF SYSTEMS: CONSTITUTIONAL: The patient is feeling weak and tired. HEENT: No change in vision. No change in hearing. CARDIOVASCULAR: There is no current chest pain or palpitations. PULMONARY: No shortness of breath. GASTROINTESTINAL: She is tolerating a diet. MUSCULOSKELETAL: Complains of weakness. PHYSICAL EXAMINATION: VITAL SIGNS: Blood pressure 124/59. Pulse 70s. Afebrile. GENERAL: Chronically ill female, much older than appearing. HEENT: Head is atraumatic. Pupils are equal, roving to light. Oropharynx is without exudate. Nares clear. NECK: There is no JVP. There is no thyromegaly. No mass. CARDIOVASCULAR: Regular. There is no S3 or S4 gallop. LUNGS: Coarse with equal thoracic movement. ABDOMEN: Soft, nondistended, and nontender. EXTREMITIES: There is no clubbing, no cyanosis. NEUROLOGICAL: She is awake. She is alert. LABORATORY DATA: BUN 32, creatinine is 1. Hemoglobin 8.6, hematocrit 27. IMPRESSION: * Acute renal failure. * Osteomyelitis. * Diabetes mellitus. * Hypertension. PLAN: The patient continues with the antibiotics as prescribed. The patient is being set up for long-term IV antibiotics. The patient's renal function has greatly improved in the hospital. Blood pressure is under adequate control. The patient's electrolytes have all been aggressively repleted. She is encouraged with this therapy. We will follow closely. TID: [id number] RECEIPT: [id number]
--- NOTE | 2025-05-05 13:24 | PN ---
[facility] PROGRESS NOTE Date Patient Seen: May 05, 2025 Time of Visit: 13:24 Supervising Physician: Dr. 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, POA S/P IGG infusions on 04/30/2025 Acute urinary tract infection due to complicated cystitis 2/2 MRSA POA Hypervolemic hyponatremia, POA Chronic anemia, POA Hyponatremia, POA Acute kidney injury on renal insufficiency POA Hyperglycemia due to uncontrolled diabetes POA Hypocalcemia POA Cirrhotic liver with splenomegaly consistent with portal hypertension per CT POA Liver Lesion lesion that measures 1.3 x 1.1 x 1.7 cm in the right lobe on US Esophageal varices Renal parenchymal disease per CT, POA Hypothyroidism Hyperlipidemia Hypertension Anxiety disorder Depression Restless leg syndrome Suspected OHS Morbid obesity, BMI 47.5 INTERVAL HISTORY: Patient assessed at bedside. AAOX3. Currently on room air. States she feels better overall. Denies any pain at this time. Third set of blood cultures positive for MRSA, continues on Vancomycin and Gentamicin. at bedside. No RAMAN per cardiology due to high risk. No overnight issues per nursing. Pending acceptance at [facility]. REVIEW OF SYSTEMS: General: No malaise or fever. Neurological: No fainting episodes or seizures. HEENT: No nasal congestion or nasal secretion. Respiratory: No cough, shortness of breath, or wheezing Cardiac: No chest pain or palpitations. Gastrointestinal: No vomiting or diarrhea. Genitourinary: No dysuria hematuria. Skin: No rashes or lesions. Hematological: No bruises or bleeding. Musculoskeletal: No joint pains or arthralgias. Psychiatric: No depression or panic attacks. PHYSICAL EXAM: GENERAL: Patient is awake alert and oriented x3. Cooperative and calm. HEENT: EOMI, Sclera non icteric, moist mucosa NECK: Supple, no JVD, trachea midline LUNGS: Clear breath sounds bilaterally. No wheezes HEART: Regular rate and rhythm. Normal S1 and S2, without murmurs ABD: Abdomen soft, nontender. Bowel sounds present EXT: No clubbing cyanosis or edema NEURO: AAOX3, follows commands Vital Signs (last 8hr) Date Time Temp Pulse Resp B/P (MAP) Pulse Ox O2 Delivery O2 Flow Rate FiO2 05/05/25 12:00 97.7 75 21 145/53 95 Room Air 21 05/05/25 08:00 97.9 73 21 124/59 95 Room Air 21 05/05/25 08:00 95 Room Air* 0 21 LABS: Hematology Labs: Test 05/05/25 04:55 Range/Units White Blood Count 6.8 4.8-10.8 K/uL Red Blood Count 3.36 L 4.00-5.50 MIL/uL Hemoglobin 8.6 L 12.0-16.0 g/dL Hematocrit 27.5 L 36-48 % Mean Corpuscular Volume 81.8 79-99 fL Mean Corpuscular Hemoglobin 25.6 L 27.0-33.0 pg Mean Corpuscular Hemoglobin Concent 31.3 L 32.0-36.0 g/dL Red Cell Distribution Width 23.3 H 11.0-15.5 % Platelet Count 26 L 130-400 K/uL Mean Platelet Volume 7.5-10.5 fL Immature Granulocyte % (Auto) 0.9 0-1 % Neutrophils (%) (Auto) 93.4 H 40.0-77.0 % Lymphocytes (%) (Auto) 2.2 L 21.0-51.0 % Monocytes (%) (Auto) 3.4 3.0-13.0 % Eosinophils (%) (Auto) 0.0 0.0-8.0 % Basophils (%) (Auto) 0.1 0.0-5.0 % Neutrophils # (Auto) 6.3 1.8-7.7 K/uL Lymphocytes # (Auto) 0.2 L 1.0-4.8 K/uL Monocytes # (Auto) 0.2 0.1-1.0 K/uL Eosinophils # (Auto) 0.00 0.00-0.70 K/uL Basophils # (Auto) 0.01 0.00-0.20 K/uL Absolute Immature Granulocyte (auto 0.06 0-1 K/uL Nucleated Red Blood Cells 0.0 0.0-0.19 % Chemistry Labs: Test 05/05/25 11:10 05/05/25 04:55 Range/Units Whole Blood Glucose 203 #H 70-110 MG/DL Bedside Glucose Comment Notified Nurse Sodium Level 138 136-145 mmol/L Potassium Level 3.9 3.5-5.1 mmol/L Chloride Level 107 101-111 mmol/L Carbon Dioxide Level 26 21-32 mmol/L Blood Urea Nitrogen 32 H 7-18 mg/dL Creatinine 1.1 H 0.5-1.0 mg/dL Glomerular Filtration Rate Calc 59 >90 mL/min Random Glucose 90 70-105 mg/dL Total Calcium 8.2 L 8.5-10.1 mg/dL Coagulation Labs: Test 05/05/25 04:55 Range/Units Prothrombin Time 17.2 H 9.6-11.6 SEC Prothromb Time International Ratio 1.71 H 0.85-1.15 Activated Partial Thromboplast Time 36.3 H 26.3-35.5 SEC Fibrinogen 119 L 180-350 mg/dL NA PLAN Per cardiology not a candidate for transesophageal echocardiogram due to thrombocytopenia, cirrhosis with esophageal varices, and overall bleeding risk. BIPAP PRN Monitor hemodynamics Monitor for fevers Continue vancomycin per ID Vancomycin and Gentamicin Pending acceptance at [facility] NEURO: Minimize central acting medications as possible. Maintain fall precautions, adequate lighting during the day PULMONARY: Supplemental 02 as needed. Maintain aspiration precautions at all times CARDIOVASCULAR: Follow hemodynamics. Vital signs per facility protocol GI & NUTRITION: Continue with nutritional support. Continue stool softeners and laxatives as needed. KIDNEYS & ELECTROLYTES: Strict monitoring of intake, output and overall fluid balance. Avoid nephrotoxic medications to the extent possible. Medications to be dosed according to renal function. Monitor electrolytes and replace as needed ENDOCRINE: Maintain blood glucose between 100-180 at all times. Hypoglycemia protocol in place INFECTIOUS DISEASE: Trend temperature, WBC and procalcitonin level Follow cultures, deescalate antibiotics as soon as possible. Panculture if new onset fever ONCOLOGY/HEMATOLOGY/COAGULATION: Monitor for s/s of bleeding Monitor hemoglobin, coagulation studies as needed SKIN: Pressure ulcer prevention per facility protocol Specialty mattress ORTHO/REHAB: Continue PT/OT Prophylaxis: Continue GI and DVT prophylaxis Code Status: Full Resuscitation Disposition: per primary team GABE RAMOS MUSE[employer] ATTENDANT May 05, 2025 13:24
--- NOTE | 2025-05-05 14:20 | PN ---
GASTROENTEROLOGY PROGRESS NOTE Date of Visit: May 05, 2025 Time of Visit: 14:20 Events / Notes: [ ] Review of Systems: CONSTITUTIONAL: No malaise or change in sensation of wellbeing. ENMT: No rhinorrhea, otorrhea, sinus pain, ear ache. CARDIOVASCULAR: No angina, palpitations, orthopnea or paroxysmal dyspnea. RESPIRATORY: No SOB. GASTROINTESTINAL: No abdominal pain, nausea, vomiting, diarrhea, hematemesis, melena or change in the patient's habitual bowel movements consistency/number. GENITOURINARY: No dysuria, hematuria or change in bladder continence. MUSCULOSKELETAL: No new muscle pain or decrease in muscular strength. No new joint swelling, redness or tenderness. SKIN: No new rash. Physical Exam: GEN: Awake, alert, oriented in person, time and place, and in no acute distress. HEENT: No sinus tenderness. Tympanic membranes were not examined. No rhinorrhea. Oral pharyngeal mucosa is pink, moist and within normal limits. Neck is supple with no cervical lymphadenopathy, thyromegaly or JVD. CHEST: Inspection, palpation and percussion of the chest were unremarkable. Lung auscultation revealed normal breath sounds bilaterally. CARDIAC: PMI is within normal limits. Heart sounds are regular. Normal S1, S2. No gallop or murmur. ABD: Soft, non-tender and not distended. No peritoneal signs on palpation. No organomegaly. Normal bowel sounds. EXT: No cyanosis or clubbing. No edema. SKIN: Intact. No rashes. JOINTS: No evidence of synovitis or acute arthritis. NEURO: Alert and oriented to name, place and person. Cranial nerve examination is unremarkable. No focal motor deficits. Normal speech. Gait is normal. Strength is normal. Vital Signs (last 8hr) Date Time Temp Pulse Resp B/P (MAP) Pulse Ox O2 Delivery O2 Flow Rate FiO2 05/05/25 12:00 97.7 75 21 145/53 95 Room Air 21 05/05/25 08:00 97.9 73 21 124/59 95 Room Air 21 05/05/25 08:00 95 Room Air* 0 21 Laboratory: [ ] Laboratory: Test 05/05/25 11:10 05/05/25 04:55 05/04/25 20:15 05/03/25 21:00 Range/Units Whole Blood Glucose 203 #H 70-110 MG/DL Bedside Glucose Comment Notified Nurse White Blood Count 6.8 4.8-10.8 K/uL Red Blood Count 3.36 L 4.00-5.50 MIL/uL Hemoglobin 8.6 L 12.0-16.0 g/dL Hematocrit 27.5 L 36-48 % Mean Corpuscular Volume 81.8 79-99 fL Mean Corpuscular Hemoglobin 25.6 L 27.0-33.0 pg Mean Corpuscular Hemoglobin Concent 31.3 L 32.0-36.0 g/dL Red Cell Distribution Width 23.3 H 11.0-15.5 % Platelet Count 26 L 130-400 K/uL Mean Platelet Volume 7.5-10.5 fL Immature Granulocyte % (Auto) 0.9 0-1 % Neutrophils (%) (Auto) 93.4 H 40.0-77.0 % Lymphocytes (%) (Auto) 2.2 L 21.0-51.0 % Monocytes (%) (Auto) 3.4 3.0-13.0 % Eosinophils (%) (Auto) 0.0 0.0-8.0 % Basophils (%) (Auto) 0.1 0.0-5.0 % Neutrophils # (Auto) 6.3 1.8-7.7 K/uL Lymphocytes # (Auto) 0.2 L 1.0-4.8 K/uL Monocytes # (Auto) 0.2 0.1-1.0 K/uL Eosinophils # (Auto) 0.00 0.00-0.70 K/uL Basophils # (Auto) 0.01 0.00-0.20 K/uL Absolute Immature Granulocyte (auto 0.06 0-1 K/uL Nucleated Red Blood Cells 0.0 0.0-0.19 % Prothrombin Time 17.2 H 9.6-11.6 SEC Prothromb Time International Ratio 1.71 H 0.85-1.15 Activated Partial Thromboplast Time 36.3 H 26.3-35.5 SEC Fibrinogen 119 L 180-350 mg/dL Sodium Level 138 136-145 mmol/L Potassium Level 3.9 3.5-5.1 mmol/L Chloride Level 107 101-111 mmol/L Carbon Dioxide Level 26 21-32 mmol/L Blood Urea Nitrogen 32 H 7-18 mg/dL Creatinine 1.1 H 0.5-1.0 mg/dL Glomerular Filtration Rate Calc 59 >90 mL/min Random Glucose 90 70-105 mg/dL Total Calcium 8.2 L 8.5-10.1 mg/dL Vancomycin Level Trough 5.0 #L 10.0-20.0 UG/ML Vancomycin Level 10.4 L 20.0-30.0 mcg/mL Current Medications Medications (Trade) Dose Ordered Sig/Roberth Route PRN Reason Start Time Stop Time Status Last Admin Dose Admin Acetaminophen (TYLenol 325MG TAB) 650 mg Q4H PRN PO MILD PAIN (1-3) 04/22/25 20:00 05/22/25 19:59 04/30/25 06:17 650 MG Acetaminophen (TYLenol 325MG TAB) 650 mg Q6H PRN PO TEMPERATURE GREATER THAN 101.5 04/22/25 20:00 05/22/25 19:59 04/23/25 10:02 650 MG Acetaminophen/ Hydrocodone Bitart (NORco 5/325MG) 1 tab Q4H PRN PO MODERATE PAIN (4-6) 04/30/25 12:00 05/05/25 11:59 DC 04/30/25 22:07 1 TAB Atorvastatin Calcium (LIPItor 20MG) 20 mg HS PO 04/24/25 21:00 05/24/25 20:59 05/04/25 20:42 20 MG Ceftriaxone Sodium 1 gm/ Sodium Chloride 50 ml @ 100 mls/hr BID IV 04/22/25 21:00 04/22/25 19:59 DC Ceftriaxone Sodium (ROCEphine 1G INJ) 1 gm BID IVPB 04/22/25 21:00 04/22/25 20:44 DC Ceftriaxone Sodium (ROCEphine 1G INJ) 1 gm BID IVPB 04/23/25 09:00 04/25/25 12:36 DC 04/25/25 09:44 1 GM Dexamethasone Sodium Phosphate (dexaMETHasone 4MG/ML 1ML VIAL) 20 mg ONCALL IV 05/01/25 15:30 05/03/25 15:31 DC 05/02/25 15:41 20 MG Dexamethasone Sodium Phosphate (dexaMETHasone 4MG/ML 1ML VIAL) 20 mg ONCALL IV 05/03/25 17:15 05/03/25 17:16 DC 05/03/25 17:23 20 MG Dexamethasone Sodium Phosphate (dexaMETHasone 4MG/ML 1ML VIAL) 20 mg ONCE PRN IV PRE-MED 05/01/25 15:00 05/01/25 15:05 DC Dexmedetomidine/ Sodium Chloride (PRECEdex 200MCG/ 50ML-NS) 200 mcg PROTOCOL IV 04/26/25 12:00 04/26/25 14:54 DC Dexmedetomidine/ Sodium Chloride (PRECEdex 400MCG/ 100ML-NS) 400 mcg PROTOCOL PRN IV ANXIETY/AGITATION 04/26/25 19:30 05/01/25 12:45 DC 04/27/25 23:31 400 MCG Dexmedetomidine/ Sodium Chloride (PRECEdex 400MCG/ 100ML-NS) 400 mcg PROTOCOL STAT IV 04/26/25 14:53 04/26/25 14:58 DC 04/26/25 15:18 400 MCG Dextrose 1,000 ml @ 75 mls/hr [id number] IV 04/26/25 12:00 04/30/25 09:36 DC 04/29/25 04:27 150 MLS/HR Dextrose (D50w) 50 ml AD PRN IV HYPOGLYCEMIA PROTOCOL 04/22/25 20:00 05/22/25 19:59 Diphenhydramine HCl (BENAdryl INJ) 25 mg ONCALL IVP 05/01/25 15:30 05/03/25 15:31 DC 05/02/25 15:41 25 MG Diphenhydramine HCl (BENAdryl INJ) 25 mg ONCALL IVP 05/03/25 17:15 05/03/25 17:16 DC 05/03/25 17:22 25 MG Diphenhydramine HCl (BENAdryl INJ) 25 mg ONCE PRN IVP PRE-MED 05/01/25 15:00 05/01/25 15:06 DC Famotidine (Pepcid 20mg Tab) 20 mg DAILY PO 04/23/25 09:00 04/24/25 09:48 DC 04/23/25 09:33 20 MG Gabapentin (NEURontin 300 MG CAP) 300 mg BID PO 04/24/25 21:00 04/28/25 09:10 DC 04/25/25 21:51 300 MG Gentamicin Sulfate/Sodium Chloride 100 ml @ 200 mls/hr Q24H IV 05/03/25 14:00 05/13/25 13:59 05/04/25 14:59 200 MLS/HR Glucagon (Glucagon 1mg Kit) 1 mg AD PRN IM HYPOGLYCEMIA PROTOCOL 04/22/25 20:00 05/22/25 19:59 Heparin Sodium (Porcine) (HEParin 5,000 UNIT VIAL) 5,000 unit Q8H SQ 04/25/25 09:00 04/25/25 08:40 DC Hydromorphone HCl (DiLAUDid 0.5MG INJ) 0.5 mg BIDPRN PRN IVP SEVERE PAIN (7-10) 04/25/25 19:00 04/30/25 11:59 DC 04/29/25 23:31 0.5 MG Hydromorphone HCl (DiLAUDid 0.5MG INJ) 0.5 mg Q6H PRN IVP SEVERE PAIN (7-10) 04/23/25 14:00 04/25/25 08:25 WI 04/25/25 04:14 0.5 MG Hydromorphone HCl (DiLAUDid 1MG INJ) 1 mg TID PRN IVP SEVERE PAIN (7-10) 05/01/25 19:00 05/05/25 12:59 DC Hydromorphone HCl (DiLAUDid 1MG INJ) 1 mg TIDP PRN IVP SEVERE PAIN (7-10) 04/30/25 13:00 05/01/25 18:46 DC 04/30/25 20:44 1 MG Immune Globulin 400 ml @ 0 mls/hr Q24H IV 05/01/25 14:00 05/02/25 12:38 DC 05/01/25 16:18 37.5 MLS/HR Immune Globulin 400 ml @ 0 mls/hr Q24H IV 05/02/25 16:00 05/03/25 16:01 DC 05/02/25 16:46 37.5 MLS/HR Immune Globulin 400 ml @ 0 mls/hr Q24H IV 05/03/25 17:15 05/03/25 17:16 DC 05/03/25 17:57 37.5 MLS/HR Insulin Glargine (LANtus 100 UNITS/ML 10 ML VIAL) 10 units HS SQ 04/24/25 21:00 04/24/25 16:57 DC Insulin Glargine (LANtus 100 UNITS/ML 10 ML VIAL) 10 units ONCE STAT SQ 04/24/25 10:54 04/24/25 11:00 DC 04/24/25 11:19 10 UNITS Insulin Glargine (LANtus 100 UNITS/ML 10 ML VIAL) 15 units HS SQ 04/24/25 21:00 04/24/25 17:06 DC Insulin Glargine (LANtus 100 UNITS/ML 10 ML VIAL) 30 units DAILY SQ 05/05/25 09:00 06/04/25 08:59 05/05/25 10:38 30 UNITS Insulin Glargine (LANtus 100 UNITS/ML 10 ML VIAL) 30 units ONCE SQ 04/24/25 17:00 04/25/25 06:19 DC 04/24/25 18:16 30 UNITS Insulin Glargine (LANtus 100 UNITS/ML 10 ML VIAL) 40 units DAILY SQ 04/29/25 09:00 04/30/25 07:31 DC Insulin Glargine (LANtus 100 UNITS/ML 10 ML VIAL) 50 units DAILY SQ 04/26/25 09:00 04/29/25 06:49 DC 04/28/25 08:46 50 UNITS Insulin Glargine (LANtus 100 UNITS/ML 10 ML VIAL) 50 units DAILY SQ 04/30/25 09:00 05/05/25 07:21 DC 05/04/25 09:30 50 UNITS Insulin Human Regular (humuLIN R 100 UNIT/ML 3ML) 5 unit TIDAC SQ 04/24/25 17:00 04/24/25 17:06 DC Insulin Human Regular (humuLIN R 100 UNIT/ML 3ML) 8 unit TIDAC SQ 04/28/25 07:30 04/30/25 07:31 DC 04/30/25 06:15 8 UNIT Insulin Human Regular (humuLIN R 100 UNIT/ML 3ML) 10 unit TIDAC SQ 04/24/25 17:00 04/25/25 06:17 DC 04/25/25 06:15 10 UNIT Insulin Human Regular (humuLIN R 100 UNIT/ML 3ML) 12 unit TIDAC SQ 05/05/25 07:30 06/04/25 07:29 Insulin Human Regular (humuLIN R 100 UNIT/ML 3ML) 12 unit TIDAC SQ 04/30/25 07:30 05/02/25 08:05 DC 05/02/25 06:45 12 UNIT Insulin Human Regular (humuLIN R 100 UNIT/ML 3ML) 15 unit TIDAC SQ 05/02/25 11:30 05/05/25 07:21 DC 05/04/25 17:33 15 UNIT Insulin Human Regular (humuLIN R 100 UNIT/ML 3ML) 15 unit TIDAC SQ 04/26/25 11:30 04/27/25 20:30 DC Insulin Human Regular (humuLIN R 100 UNIT/ML 3ML) 25 unit TIDAC SQ 04/25/25 07:30 04/26/25 07:58 DC 04/25/25 17:39 25 UNIT Insulin Human Regular (humuLIN R 100 UNIT/ML 3ML) INSULIN SLIDING SCAL... ACHS SQ 04/22/25 21:00 04/24/25 16:16 DC 04/24/25 11:18 8 UNIT Insulin Human Regular (humuLIN R 100 UNIT/ML 3ML) INSULIN SLIDING SCAL... ACHS SQ 05/05/25 07:30 06/04/25 07:29 05/05/25 12:15 6 UNIT Insulin Human Regular (humuLIN R 100 UNIT/ML 3ML) INSULIN SLIDING SCAL... ACHS SQ 04/24/25 16:30 04/25/25 14:09 DC 04/25/25 11:57 16 UNIT Insulin Human Regular (humuLIN R 100 UNIT/ML 3ML) INSULIN SLIDING SCAL... ACHS SQ 04/25/25 16:30 05/04/25 23:42 DC 05/04/25 20:49 6 UNIT Insulin Human Regular (humuLIN R 100 UNIT/ML 3ML) INSULIN SLIDING SCAL... Q4H SQ 04/27/25 20:30 04/28/25 09:11 DC 04/28/25 06:00 4 UNIT Lactated Ringer's 1,000 ml @ 100 mls/hr Q10H IV 04/22/25 20:00 04/23/25 10:09 DC 04/23/25 06:00 100 MLS/HR Lactulose (Constulose 20gm/ 30ml Udcup) 30 gm TID PO 04/25/25 11:00 04/30/25 09:45 DC 04/30/25 09:16 30 GM Levothyroxine Sodium (SYNTHroid 125MCG TAB) 125 mcg DAILY@0630 PO 04/25/25 06:30 05/25/25 06:29 05/05/25 06:02 125 MCG Lisinopril (Prinivil 10mg) 10 mg DAILY PO 05/02/25 09:00 06/01/25 08:59 05/05/25 10:58 10 MG Magnesium Sulfate 50 ml @ 0 mls/hr PROTOCOL PRN IV OTHER [SEE ORDER COMMENTS] 04/22/25 20:00 05/22/25 19:59 Methylprednisolone Sodium Succinate (Solu-medROL 125MG) 125 mg Q6H IVP 04/23/25 08:00 04/28/25 09:10 DC 04/25/25 09:45 125 MG Metoprolol Succinate (TopROL XL) 50 mg AM PO 04/25/25 09:00 05/25/25 08:59 05/05/25 10:58 50 MG Ondansetron HCl (zoFRAN 4MG INJ) 4 mg Q6H PRN IV NAUSEA/VOMITING 04/22/25 20:00 05/22/25 19:59 04/22/25 20:10 4 MG Pantoprazole Sodium (PROTonix 40MG INJ) 40 mg DAILY IVP 04/24/25 10:00 05/24/25 09:59 05/05/25 10:58 40 MG Pharmacy Profile Note (Pharmacy Communication) 1 each ONCE MISC 05/01/25 08:00 04/30/25 16:52 DC Pharmacy Profile Note (Pharmacy Communication) 1 each ONCE MISC 05/03/25 12:00 05/03/25 12:58 DC Potassium Chloride 100 ml @ 100 mls/hr AD PRN IV POTASSIUM PROTOCOL 04/22/25 20:00 05/22/25 19:59 Potassium Chloride (K-Dur/Klor-Con 20meq) 20 meq AD PRN PO POTASSIUM PROTOCOL 04/22/25 20:00 05/22/25 19:59 05/03/25 13:10 20 MEQ Potassium Chloride (KCl 10% Elixir 20meq/15ml) 20 meq AD PRN PO POTASSIUM PROTOCOL 04/22/25 20:00 05/22/25 19:59 Pramipexole Dihydrochloride (miraPEX 0.25MG TAB) 0.5 mg HS PO 04/24/25 21:00 05/24/25 20:59 05/04/25 20:42 0.5 MG Pregabalin (LYRica 25MG) 25 mg BID PO 05/01/25 21:00 05/05/25 07:22 DC 05/04/25 09:22 25 MG Pregabalin ([id number]) 75 mg BID PO 04/24/25 21:00 04/24/25 14:49 DC Sodium Chloride 500 ml @ 0 mls/hr Q0M IV 04/25/25 11:00 05/25/25 10:59 Sodium Zirconium Cyclosilicate (Lokelma 10gm Powder) 10 gm TID PO 04/23/25 21:00 04/23/25 14:11 DC Tramadol HCl (UltRAM) 50 mg Q6H PRN PO MODERATE PAIN (4-6) 04/24/25 22:30 04/29/25 22:29 DC 04/28/25 13:55 50 MG Trimethoprim/ Sulfamethoxazole (BactRIM DS) 1 tab BID PO 04/25/25 21:00 04/26/25 14:50 DC 04/25/25 21:51 1 TAB Vancomycin HCl 250 ml @ 125 mls/hr Q12H IV 04/24/25 23:00 04/25/25 12:36 DC 04/25/25 11:43 125 MLS/HR Vancomycin HCl 250 ml @ 125 mls/hr Q12H IV 04/26/25 15:30 04/28/25 03:13 DC 04/27/25 15:22 125 MLS/HR Vancomycin HCl 250 ml @ 125 mls/hr Q12H IV 04/28/25 15:30 04/28/25 18:53 DC Vancomycin HCl 250 ml @ 125 mls/hr Q12H IV 04/28/25 20:00 05/02/25 20:34 DC 05/02/25 10:21 125 MLS/HR Vancomycin HCl 250 ml @ 125 mls/hr Q12H9 IV 05/04/25 21:00 05/14/25 20:59 05/05/25 10:58 125 MLS/HR Vancomycin HCl (Vancomycin Protocol) 1 each AD IV 04/24/25 10:30 04/25/25 12:36 DC Vancomycin HCl (Vancomycin Protocol) 1 each AD IV 04/26/25 15:00 05/10/25 14:59 Venlafaxine HCl (EffEXOR XR 37.5mg CAP) 37.5 mg DAILY PO 04/24/25 16:00 05/05/25 11:18 DC 05/04/25 09:21 37.5 MG Venlafaxine HCl (EffEXOR XR 37.5mg CAP) 37.5 mg DAILY PO 04/25/25 09:00 04/24/25 14:50 DC Venlafaxine HCl (EffEXOR XR 37.5mg CAP) 37.5 mg HS PO 05/05/25 21:00 06/04/25 20:59 Diagnostics / Radiology: [COPY/PASTE HERE IF NO REPORTS PLEASE DELETE SECTION] Assessment: Decompensated cirrhosis HTN Esophageal varies Plan: Patient with known cirrhosis however lost to follow-up. Hold off on EGD given no overt GI bleeding and stable hemoglobin We will monitor closely BEHZAD KOCH [facility] May 05, 2025 14:20
--- NOTE | 2025-05-05 15:46 | PN ---
[facility] PROGRESS NOTE Date of Service: May 05, 2025 Time of Service: 15:25 SUBJECTIVE: This is a 54-year-old female with past medical history of undiagnosed obstructive sleep apnea, diabetes type 2, hypertension, hyperlipidemia, hypothyroidism, restless leg syndrome, anxiety disorder,depression, lupus and severe morbid obesity who presents to the ED for complaints of severe low back pain which started 2 weeks ago and getting worse for the past 2 days and patient reports she is taking prednisone 30mg po daily for her Lupus she said.Patient also reports she was recently seen in this ED for similar complaints and was diagnosed with acute lumbosacral myofascial strain. 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 Urinalysis consistent with urinary tract infection. CT abdomen and pelvis result revealed no acute intra-abdominal or pelvic pathology cirrhotic liver morphology with splenomegaly, consistent with portal hypertension. Bilateral r enal cortical thickening may reflect renal parenchymal disease. While in the ER patient received Rocephin 1 g IV, 1 L NS bolus. We will admit patient for further medical management. 04/23/25 Patient was seen and examined at bedside. She was complaining of chest pain early in the morning but her EKG and troponin were normal. Patient says she got liver cirrhosis from taking Tylenol with codeine in the past for a long time. Remarkable labs are Na 129, K 6.4. Cl 98, BUN 44. Cr 1.2 with no anion gap. New EKG shows sinus rhythm with no tall T-waves or shortened QT interval. We will give her a dose of calcium gluconate and lokelma and recheck her labs. we will hold her iv fluids for now. Her urine anion gap is 36.0 mEq/l. Repeat potassium was 4.2 and 4.6. We will order CT lumbar spine and request nephro and cardio consults due to hyponatremia, RTA and cirrhosis with portal hypertension res pectively. We will order lupus, complement , anemia panel due to her abnormal labs and h/o SLE. Hematology recommended solu medrol 125 q6. she might need hydrochloroquine upon discharge for SLE 04/24/25 Patient was seen and examined at bedside. She is complaining of widespread generalized body pain with tender points and generalized weakness, her CPK is going up, we will repeat it and start her on pregabalin. Her labs are improving. She had an EGD done last year that showed grade III varices but lost to follow up with TDS. No GI intervention as her Hb is stable. Will start her on vancomycin. Her home meds have been reconciled. She takes venlaflaxine and pramipexole for depression and restless leg syndrome respectively. Her elevated urine anion gap could be due to BALTAZAR or NSAID induced kidney injury but her creatinine is improving. Pending abdominal ultrasound and CT lumbar spine result s. 04/25/25 Patient was seen and examined. She was observed sitting in a chair but was unable to answer questions appropriately and appeared confused. Ammonia level was elevated at 59; lactulose has been initiated at 30 mL TID. She is currently receiving vancomycin for MRSA identified in the urine. Right upper quadrant ultrasound demonstrated chronic hepatic changes with a hypoechoic lesion in the right lobe of the liver, possibly representing a complex cyst. CT of the lumbar spine revealed moderate lumbar spondylosis and diffuse osteopenia. Her platelet count is 37 and showing slow improvement. Dr. Urias, covering for Dr. Lorenzo, recommended holding solu-medrol for now. If platelet count declines tomorrow, steroids may need to be restarted. Ammonia and additional labs will be rechecked in the morning. 04/26/25 Patient was seen at bedside. Will request a transfer to the ICU due to worsening agitation and hypercapnic respiratory failure requiring BIPAP support.Will order Precedex drip for sedation to improve tolerance of non-invasive ventilation. Imaging studies including CT head and MRI spine have been ordered to evaluate for underlying neurologic causes. Patient remains hemodynamically stable; pulmonary consult is in place. She is growing gram positive cocci in clusters in her blood, will request ID input on antibiotics as she was on vancomycin previously and was started on bactrim for MRSA in urine. Her platelet count is 36 and solu-medrol is on hold. Ammonia improved from 59 to 12 04/27/25 Patient was evaluated at bedside. She was transferred to the ICU yesterday due to agitation and hypercapnia, requiring a Precedex drip as she was removing her nasal cannula. BiPAP was initiated to support ventilation, and she is now resting comfortably. CT brain was unremarkable with no acute findings. She has a free water deficit of approximately 1.4 liters, for which D5W will be administered. CRP has decreased from 83.5 to 56.4. However, platelets have dropped from 36 to 28, and hematology is closely monitoring her. The patient remains NPO. We wanted to start NG tube feeding but patient has h/o esophageal varices. We will await gastroenterologys recommendations, including possible EGD if indicated. 04/28/25 Patient was evaluated at bedside, she is bed bound not very responsive to questions. She is currently off BiPAP and precedex drip. Her agitation has improved and she is resting comfortably in bed. She has MRSA bacteremia and we will repeat blood cultures. She is currently on vancomycin. She has moderate right hydronephrosis which is increasing, we will request urology consult. Her sodium is trending upwards from 147 to 152 and she has a free water deficit of 2.4 L , we will increase D5 rate from 75 to 150mls/hr. CRP improving from 56.4 to 42.7. Platelets dropped from 28 to 21, we will follow Dr. Lorenzo's recommendations and his plan is give her IgG. She is not bleeding actively. 04/29/25 Patient was evaluated at bedside. She is alert, awake and oriented. She was minimally verbal yesterday but is now more interactive, expressing pain and discussing her medical history. She reports diffuse joint pain and is unable to lift her arms or legs due to significant discomfort. 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 urologist Dr. Colin recommended nephrostomy tube on her right due to hydronephrosis. Her platelets improved to 44 without any intervention. She will be getting platelets for the procedure. She has infectious spondylodiscitis which could be the source of her bacteremia. We have requested transfer to [facility] [place] but refrigeration houseman said Dr. Sanchez has privileges at [facility] and will try to consult him. Her white count went up to 12.2, LFTs mildly going up. We will hold off on gabapentin for now. 04/30/25 Patient was evaluated at bedside. She is alert, awake and oriented. Her vitals are stable. She is interactive, expressing pain and discussing her medical history. She reports diffuse joint pain and is able to lift her arms or legs slightly due to pain and discomfort. Her active and passive range of motions are limited. 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 She also passed stool more than 5 times yesterday could be due to lactulose which has been stopped from today. A Percutaneous fluroscopy-guided placement of an 8-F nephrostomy catheter was performed,the patient tolerated the procedure well. Neurosurgeon Dr. Sanchez saw the patient and came up with possible diagnosis of discitis and osteomyelitis at L2-L3 along with psoas inflammation. She has spondylolisthesis which is non- critical and can be managed medically for now. According to Dr. Lorenzo she will benefit from IVIg for 3 days on the background of possible ITP. Her current platelet is 41 and Hgb 9.6. Also, Endocrinology team adjusted Insulin regimen. We have requested cardiology consult for suspected endocarditis and will request RAMAN although she has thrombocytopenia and h/o esophageal varices. 05/01/25 Patient was evaluated at bedside. She is alert, awake and oriented. Her vitals are stable, except blood pressure which is 158/80. She reports diffuse joint pain and is able to lift her arms or legs slightly due to pain and discomfort. Her active and passive range of motions are limited. 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 As per Dr. Lorenzo she will be started IVIG from today for 3 days. As per the Cardiology, she won't undergo RAMAN due thrombocytopenia, cirrhosis, varices. We will continue IV antibiotics and add low dose pregabalin for her pain. 05/02/25 Patient was evaluated at bedside. She is alert, awake and oriented. Her vitals are stable, except blood pressure which is 157/81. Labs showed WBC decreasing from 11.6 to 5.7, platelets from 44 to 32 and random glucose of 226. There has been marked decline in pain. We will continue IV antibiotics and she is receiving Immune globulin every 24 hr. Her Insulin dosage has been adjusted. Blood culture showed gram positive cocci in clusters, STAPHYLOCOCCUS AUREUS. Her prognosis remains guarded. Plan is to discharge her to [facility] for 6 weeks of IV antibiotics. 05/03/25 Patient was evaluated at bedside. She is alert, awake and oriented. Her vitals are stable,and her blood pressure which is 137/70. Labs showed WBC 7.8 , platelets from increasing from 32 to 44 and random glucose of 232. Her creatinine level is 1.2. There has been marked decline in pain and discomfort. We will continue IV antibiotics and she is receiving Immune globulin every 24 hr. Her last dose for Immune globulin is today. Her Insulin dosage has been adjusted. Blood culture showed gram positive cocci. Her prognosis remains guarded. She is on IV vancomycin. Plan is to discharge her to [facility] for 6 weeks of IV antibiotics. 05/04/25: The patient was evaluated at the bedside today. She had just finished showering and reported new-onset slurred speech, facial weakness and word- finding difficulty. She reports no weakness in the extremities. Blood cultures remain positive for gram-positive cocci, specifically MRSA. She is continuing on vancomycin, and gentamicin was initiated yesterday per Infectious Disease recommendations. She has completed a total of three IV IgG infusions. Platelet count is currently 31,000, decreased from 41,000 yesterday. Additionally, the patient has developed a groin rash with associated itching. Physical therapy noted that she was unable to ambulate today and experienced significant difficulty with mobility. We will continue to closely monitor her neurological status, platelet counts, and overall clinical response. Repeat blood cultures will be obtained at an appropriate interval following the initiation of gentamicin, per Infectious Disease guidance. Further assessment and management plan are outlined below. 05/05/25: The patient was evaluated at the bedside today. Her vitals are stable and communicated well. She complaints of pain in the neck and shoulder. She reports no weakness in the extremities. Blood cultures remain positive for gram- positive cocci, specifically MRSA. She is continuing on vancomycin, and gentamicin per Infectious Disease recommendations. Repeat blood cultures will be obtained at an appropriate interval following the initiation of gentamicin. She has completed a total of three IV IgG infusions. Platelet count is currently decreased from 31,000 [place] [address]. Her WBC is 6.8 and Hgb is 8.6. Her insulin medications has been adjusted by the endocrinology team. Additionally, the patient's groin rash with associated itching has been improving. She has been prescribed for Venlafaxine for management of depression and anxiety. Also Case management updated that [facility], Insurance approval is still pending; no authorization has been granted as of this time. Further assessment and management plan are outlined below. REVIEW OF SYSTEMS CONSTITUTIONAL: No fever, chills, or night sweats. NEUROLOGICAL: Complaints of new onset of slurred speech, facial weakness and difficulty finding words Denies headache, sensory and motor deficit. CARDIOVASCULAR: Denies any exertional angina, dyspnea on exertion, orthopnea, paroxysmal nocturnal dyspnea, palpitations. PULMONARY: Denies any shortness of breath, cough, phlegm/sputum, hemoptysis, pleuritic chest pain. GASTROINTESTINAL: Denies nausea, vomiting, abdominal pain. GENITOURINARY: Denies frequency, urgency, nocturia, hematuria or incontinence. PHYSICAL EXAM GENERAL APPEARANCE: The patient is alert, awake and oriented and bedbound NEUROLOGICAL: No sensory and motor deficits. CHEST: Normal chest expansion. LUNGS: Absence of any rales, rhonchi or any wheezing. CARDIOVASCULAR: Regular. S1 and S2 normal. No appreciable rubs, murmurs or gallops. ABDOMEN: Soft nontender, and nondistended. There is no rebound, voluntary guarding, or rigidity. GENITOURINARY: S/P day 4, Nephrostomy tube on the right side Vital Signs (last 8hr) Date Time Temp Pulse Resp B/P (MAP) Pulse Ox O2 Delivery O2 Flow Rate FiO2 05/05/25 12:00 97.7 75 21 145/53 95 Room Air 21 05/05/25 08:00 97.9 73 21 124/59 95 Room Air 21 05/05/25 08:00 95 Room Air* 0 21 LABS: Laboratory: Test 05/05/25 11:10 05/05/25 04:55 05/04/25 20:15 05/03/25 21:00 Range/Units Whole Blood Glucose 203 #H 70-110 MG/DL Bedside Glucose Comment Notified Nurse White Blood Count 6.8 4.8-10.8 K/uL Red Blood Count 3.36 L 4.00-5.50 MIL/uL Hemoglobin 8.6 L 12.0-16.0 g/dL Hematocrit 27.5 L 36-48 % Mean Corpuscular Volume 81.8 79-99 fL Mean Corpuscular Hemoglobin 25.6 L 27.0-33.0 pg Mean Corpuscular Hemoglobin Concent 31.3 L 32.0-36.0 g/dL Red Cell Distribution Width 23.3 H 11.0-15.5 % Platelet Count 26 L 130-400 K/uL Mean Platelet Volume 7.5-10.5 fL Immature Granulocyte % (Auto) 0.9 0-1 % Neutrophils (%) (Auto) 93.4 H 40.0-77.0 % Lymphocytes (%) (Auto) 2.2 L 21.0-51.0 % Monocytes (%) (Auto) 3.4 3.0-13.0 % Eosinophils (%) (Auto) 0.0 0.0-8.0 % Basophils (%) (Auto) 0.1 0.0-5.0 % Neutrophils # (Auto) 6.3 1.8-7.7 K/uL Lymphocytes # (Auto) 0.2 L 1.0-4.8 K/uL Monocytes # (Auto) 0.2 0.1-1.0 K/uL Eosinophils # (Auto) 0.00 0.00-0.70 K/uL Basophils # (Auto) 0.01 0.00-0.20 K/uL Absolute Immature Granulocyte (auto 0.06 0-1 K/uL Nucleated Red Blood Cells 0.0 0.0-0.19 % Prothrombin Time 17.2 H 9.6-11.6 SEC Prothromb Time International Ratio 1.71 H 0.85-1.15 Activated Partial Thromboplast Time 36.3 H 26.3-35.5 SEC Fibrinogen 119 L 180-350 mg/dL Sodium Level 138 136-145 mmol/L Potassium Level 3.9 3.5-5.1 mmol/L Chloride Level 107 101-111 mmol/L Carbon Dioxide Level 26 21-32 mmol/L Blood Urea Nitrogen 32 H 7-18 mg/dL Creatinine 1.1 H 0.5-1.0 mg/dL Glomerular Filtration Rate Calc 59 >90 mL/min Random Glucose 90 70-105 mg/dL Total Calcium 8.2 L 8.5-10.1 mg/dL Vancomycin Level Trough 5.0 #L 10.0-20.0 UG/ML Vancomycin Level 10.4 L 20.0-30.0 mcg/mL Current Medications Medications (Trade) Dose Ordered Sig/Roberth Route PRN Reason Start Time Stop Time Status Last Admin Dose Admin Acetaminophen (TYLenol 325MG TAB) 650 mg Q4H PRN PO MILD PAIN (1-3) 04/22/25 20:00 05/22/25 19:59 04/30/25 06:17 650 MG Acetaminophen (TYLenol 325MG TAB) 650 mg Q6H PRN PO TEMPERATURE GREATER THAN 101.5 04/22/25 20:00 05/22/25 19:59 04/23/25 10:02 650 MG Acetaminophen/ Hydrocodone Bitart (NORco 5/325MG) 1 tab Q4H PRN PO MODERATE PAIN (4-6) 04/30/25 12:00 05/05/25 11:59 DC 04/30/25 22:07 1 TAB Atorvastatin Calcium (LIPItor 20MG) 20 mg HS PO 04/24/25 21:00 05/24/25 20:59 05/04/25 20:42 20 MG Ceftriaxone Sodium 1 gm/ Sodium Chloride 50 ml @ 100 mls/hr BID IV 04/22/25 21:00 04/22/25 19:59 DC Ceftriaxone Sodium (ROCEphine 1G INJ) 1 gm BID IVPB 04/22/25 21:00 04/22/25 20:44 DC Ceftriaxone Sodium (ROCEphine 1G INJ) 1 gm BID IVPB 04/23/25 09:00 04/25/25 12:36 DC 04/25/25 09:44 1 GM Dexamethasone Sodium Phosphate (dexaMETHasone 4MG/ML 1ML VIAL) 20 mg ONCALL IV 05/01/25 15:30 05/03/25 15:31 DC 05/02/25 15:41 20 MG Dexamethasone Sodium Phosphate (dexaMETHasone 4MG/ML 1ML VIAL) 20 mg ONCALL IV 05/03/25 17:15 05/03/25 17:16 DC 05/03/25 17:23 20 MG Dexamethasone Sodium Phosphate (dexaMETHasone 4MG/ML 1ML VIAL) 20 mg ONCE PRN IV PRE-MED 05/01/25 15:00 05/01/25 15:05 DC Dexmedetomidine/ Sodium Chloride (PRECEdex 200MCG/ 50ML-NS) 200 mcg PROTOCOL IV 04/26/25 12:00 04/26/25 14:54 DC Dexmedetomidine/ Sodium Chloride (PRECEdex 400MCG/ 100ML-NS) 400 mcg PROTOCOL PRN IV ANXIETY/AGITATION 04/26/25 19:30 05/01/25 12:45 DC 04/27/25 23:31 400 MCG Dexmedetomidine/ Sodium Chloride (PRECEdex 400MCG/ 100ML-NS) 400 mcg PROTOCOL STAT IV 04/26/25 14:53 04/26/25 14:58 DC 04/26/25 15:18 400 MCG Dextrose 1,000 ml @ 75 mls/hr [id number] IV 04/26/25 12:00 04/30/25 09:36 DC 04/29/25 04:27 150 MLS/HR Dextrose (D50w) 50 ml AD PRN IV HYPOGLYCEMIA PROTOCOL 04/22/25 20:00 05/22/25 19:59 Diphenhydramine HCl (BENAdryl INJ) 25 mg ONCALL IVP 05/01/25 15:30 05/03/25 15:31 DC 05/02/25 15:41 25 MG Diphenhydramine HCl (BENAdryl INJ) 25 mg ONCALL IVP 05/03/25 17:15 05/03/25 17:16 DC 05/03/25 17:22 25 MG Diphenhydramine HCl (BENAdryl INJ) 25 mg ONCE PRN IVP PRE-MED 05/01/25 15:00 05/01/25 15:06 DC Famotidine (Pepcid 20mg Tab) 20 mg DAILY PO 04/23/25 09:00 04/24/25 09:48 DC 04/23/25 09:33 20 MG Gabapentin (NEURontin 300 MG CAP) 300 mg BID PO 04/24/25 21:00 04/28/25 09:10 DC 04/25/25 21:51 300 MG Gentamicin Sulfate/Sodium Chloride 100 ml @ 200 mls/hr Q24H IV 05/03/25 14:00 05/13/25 13:59 05/05/25 15:08 200 MLS/HR Glucagon (Glucagon 1mg Kit) 1 mg AD PRN IM HYPOGLYCEMIA PROTOCOL 04/22/25 20:00 05/22/25 19:59 Heparin Sodium (Porcine) (HEParin 5,000 UNIT VIAL) 5,000 unit Q8H SQ 04/25/25 09:00 04/25/25 08:40 DC Hydromorphone HCl (DiLAUDid 0.5MG INJ) 0.5 mg BIDPRN PRN IVP SEVERE PAIN (7-10) 04/25/25 19:00 04/30/25 11:59 DC 04/29/25 23:31 0.5 MG Hydromorphone HCl (DiLAUDid 0.5MG INJ) 0.5 mg Q6H PRN IVP SEVERE PAIN (7-10) 04/23/25 14:00 04/25/25 08:25 DC 04/25/25 04:14 0.5 MG Hydromorphone HCl (DiLAUDid 1MG INJ) 1 mg TID PRN IVP SEVERE PAIN (7-10) 05/01/25 19:00 05/05/25 12:59 DC Hydromorphone HCl (DiLAUDid 1MG INJ) 1 mg TIDP PRN IVP SEVERE PAIN (7-10) 04/30/25 13:00 05/01/25 18:46 DC 04/30/25 20:44 1 MG Immune Globulin 400 ml @ 0 mls/hr Q24H IV 05/01/25 14:00 05/02/25 12:38 DC 05/01/25 16:18 37.5 MLS/HR Immune Globulin 400 ml @ 0 mls/hr Q24H IV 05/02/25 16:00 05/03/25 16:01 DC 05/02/25 16:46 37.5 MLS/HR Immune Globulin 400 ml @ 0 mls/hr Q24H IV 05/03/25 17:15 05/03/25 17:16 DC 05/03/25 17:57 37.5 MLS/HR Insulin Glargine (LANtus 100 UNITS/ML 10 ML VIAL) 10 units HS SQ 04/24/25 21:00 04/24/25 16:57 DC Insulin Glargine (LANtus 100 UNITS/ML 10 ML VIAL) 10 units ONCE STAT SQ 04/24/25 10:54 04/24/25 11:00 DC 04/24/25 11:19 10 UNITS Insulin Glargine (LANtus 100 UNITS/ML 10 ML VIAL) 15 units HS SQ 04/24/25 21:00 04/24/25 17:06 DC Insulin Glargine (LANtus 100 UNITS/ML 10 ML VIAL) 30 units DAILY SQ 05/05/25 09:00 06/04/25 08:59 05/05/25 10:38 30 UNITS Insulin Glargine (LANtus 100 UNITS/ML 10 ML VIAL) 30 units ONCE SQ 04/24/25 17:00 04/25/25 06:19 DC 04/24/25 18:16 30 UNITS Insulin Glargine (LANtus 100 UNITS/ML 10 ML VIAL) 40 units DAILY SQ 04/29/25 09:00 04/30/25 07:31 DC Insulin Glargine (LANtus 100 UNITS/ML 10 ML VIAL) 50 units DAILY SQ 04/26/25 09:00 04/29/25 06:49 DC 04/28/25 08:46 50 UNITS Insulin Glargine (LANtus 100 UNITS/ML 10 ML VIAL) 50 units DAILY SQ 04/30/25 09:00 05/05/25 07:21 DC 05/04/25 09:30 50 UNITS Insulin Human Regular (humuLIN R 100 UNIT/ML 3ML) 5 unit TIDAC SQ 04/24/25 17:00 04/24/25 17:06 DC Insulin Human Regular (humuLIN R 100 UNIT/ML 3ML) 8 unit TIDAC SQ 04/28/25 07:30 04/30/25 07:31 DC 04/30/25 06:15 8 UNIT Insulin Human Regular (humuLIN R 100 UNIT/ML 3ML) 10 unit TIDAC SQ 04/24/25 17:00 04/25/25 06:17 DC 04/25/25 06:15 10 UNIT Insulin Human Regular (humuLIN R 100 UNIT/ML 3ML) 12 unit TIDAC SQ 05/05/25 07:30 06/04/25 07:29 Insulin Human Regular (humuLIN R 100 UNIT/ML 3ML) 12 unit TIDAC SQ 04/30/25 07:30 05/02/25 08:05 DC 05/02/25 06:45 12 UNIT Insulin Human Regular (humuLIN R 100 UNIT/ML 3ML) 15 unit TIDAC SQ 05/02/25 11:30 05/05/25 07:21 DC 05/04/25 17:33 15 UNIT Insulin Human Regular (humuLIN R 100 UNIT/ML 3ML) 15 unit TIDAC SQ 04/26/25 11:30 04/27/25 20:30 DC Insulin Human Regular (humuLIN R 100 UNIT/ML 3ML) 25 unit TIDAC SQ 04/25/25 07:30 04/26/25 07:58 DC 04/25/25 17:39 25 UNIT Insulin Human Regular (humuLIN R 100 UNIT/ML 3ML) INSULIN SLIDING SCAL... ACHS SQ 04/22/25 21:00 04/24/25 16:16 DC 04/24/25 11:18 8 UNIT Insulin Human Regular (humuLIN R 100 UNIT/ML 3ML) INSULIN SLIDING SCAL... ACHS SQ 05/05/25 07:30 06/04/25 07:29 05/05/25 12:15 6 UNIT Insulin Human Regular (humuLIN R 100 UNIT/ML 3ML) INSULIN SLIDING SCAL... ACHS SQ 04/24/25 16:30 04/25/25 14:09 DC 04/25/25 11:57 16 UNIT Insulin Human Regular (humuLIN R 100 UNIT/ML 3ML) INSULIN SLIDING SCAL... ACHS SQ 04/25/25 16:30 05/04/25 23:42 DC 05/04/25 20:49 6 UNIT Insulin Human Regular (humuLIN R 100 UNIT/ML 3ML) INSULIN SLIDING SCAL... Q4H SQ 04/27/25 20:30 04/28/25 09:11 DC 04/28/25 06:00 4 UNIT Lactated Ringer's 1,000 ml @ 100 mls/hr Q10H IV 04/22/25 20:00 04/23/25 10:09 DC 04/23/25 06:00 100 MLS/HR Lactulose (Constulose 20gm/ 30ml Udcup) 30 gm TID PO 04/25/25 11:00 04/30/25 09:45 DC 04/30/25 09:16 30 GM Levothyroxine Sodium (SYNTHroid 125MCG TAB) 125 mcg DAILY@0630 PO 04/25/25 06:30 05/25/25 06:29 05/05/25 06:02 125 MCG Lisinopril (Prinivil 10mg) 10 mg DAILY PO 05/02/25 09:00 06/01/25 08:59 05/05/25 10:58 10 MG Magnesium Sulfate 50 ml @ 0 mls/hr PROTOCOL PRN IV OTHER [SEE ORDER COMMENTS] 04/22/25 20:00 05/22/25 19:59 Methylprednisolone Sodium Succinate (Solu-medROL 125MG) 125 mg Q6H IVP 04/23/25 08:00 04/28/25 09:10 DC 04/25/25 09:45 125 MG Metoprolol Succinate (TopROL XL) 50 mg AM PO 04/25/25 09:00 05/25/25 08:59 05/05/25 10:58 50 MG Ondansetron HCl (zoFRAN 4MG INJ) 4 mg Q6H PRN IV NAUSEA/VOMITING 04/22/25 20:00 05/22/25 19:59 04/22/25 20:10 4 MG Pantoprazole Sodium (PROTonix 40MG INJ) 40 mg DAILY IVP 04/24/25 10:00 05/24/25 09:59 05/05/25 10:58 40 MG Pharmacy Profile Note (Pharmacy Communication) 1 each ONCE MISC 05/01/25 08:00 04/30/25 16:52 DC Pharmacy Profile Note (Pharmacy Communication) 1 each ONCE MISC 05/03/25 12:00 05/03/25 12:58 DC Potassium Chloride 100 ml @ 100 mls/hr AD PRN IV POTASSIUM PROTOCOL 04/22/25 20:00 05/22/25 19:59 Potassium Chloride (K-Dur/Klor-Con 20meq) 20 meq AD PRN PO POTASSIUM PROTOCOL 04/22/25 20:00 05/22/25 19:59 05/03/25 13:10 20 MEQ Potassium Chloride (KCl 10% Elixir 20meq/15ml) 20 meq AD PRN PO POTASSIUM PROTOCOL 04/22/25 20:00 05/22/25 19:59 Pramipexole Dihydrochloride (miraPEX 0.25MG TAB) 0.5 mg HS PO 04/24/25 21:00 05/24/25 20:59 05/04/25 20:42 0.5 MG Pregabalin (LYRica 25MG) 25 mg BID PO 05/01/25 21:00 05/05/25 07:22 DC 05/04/25 09:22 25 MG Pregabalin ([id number]) 75 mg BID PO 04/24/25 21:00 04/24/25 14:49 DC Sodium Chloride 500 ml @ 0 mls/hr Q0M IV 04/25/25 11:00 05/25/25 10:59 Sodium Zirconium Cyclosilicate (Lokelma 10gm Powder) 10 gm TID PO 04/23/25 21:00 04/23/25 14:11 DC Tramadol HCl (UltRAM) 50 mg Q6H PRN PO MODERATE PAIN (4-6) 04/24/25 22:30 04/29/25 22:29 DC 04/28/25 13:55 50 MG Trimethoprim/ Sulfamethoxazole (BactRIM DS) 1 tab BID PO 04/25/25 21:00 04/26/25 14:50 DC 04/25/25 21:51 1 TAB Vancomycin HCl 250 ml @ 125 mls/hr Q12H IV 04/24/25 23:00 04/25/25 12:36 DC 04/25/25 11:43 125 MLS/HR Vancomycin HCl 250 ml @ 125 mls/hr Q12H IV 04/26/25 15:30 04/28/25 03:13 DC 04/27/25 15:22 125 MLS/HR Vancomycin HCl 250 ml @ 125 mls/hr Q12H IV 04/28/25 15:30 04/28/25 18:53 DC Vancomycin HCl 250 ml @ 125 mls/hr Q12H IV 04/28/25 20:00 05/02/25 20:34 DC 05/02/25 10:21 125 MLS/HR Vancomycin HCl 250 ml @ 125 mls/hr Q12H9 IV 05/04/25 21:00 05/14/25 20:59 05/05/25 10:58 125 MLS/HR Vancomycin HCl (Vancomycin Protocol) 1 each AD IV 04/24/25 10:30 04/25/25 12:36 DC Vancomycin HCl (Vancomycin Protocol) 1 each AD IV 04/26/25 15:00 05/10/25 14:59 Venlafaxine HCl (EffEXOR XR 37.5mg CAP) 37.5 mg DAILY PO 04/24/25 16:00 05/05/25 11:18 DC 05/04/25 09:21 37.5 MG Venlafaxine HCl (EffEXOR XR 37.5mg CAP) 37.5 mg DAILY PO 04/25/25 09:00 04/24/25 14:50 DC Venlafaxine HCl (EffEXOR XR 37.5mg CAP) 37.5 mg HS PO 05/05/25 21:00 06/04/25 20:59 DIAGNOSTICS / RADIOLOGY: [ ] 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 Suspected Endocarditis, RAMAN deferred due to bleeding risks; unable to rule out endocarditis Status post nephrostomy tube Renate intertrigo Infectious spondylodiscitis L2-L3 Sepsis, unable to determine POA Acute hypoxic hypercapnic respiratory failure, not POA, resolved AMS due to suspected steroid induced psychosis or hepatic encephalopathy, not POA, resolved Hyperammonemia due to cirrhosis, resolved Intractable low back pain due to spinal stenosis POA Acute urinary tract infection due to MRSA POA Hypervolemic hyponatremia POA Chronic anemia POA Hyponatremia POA Acute kidney injury on renal insufficiency POA Hyperglycemia due to uncontrolled diabetes POA Hypocalcemia POA Cirrhotic liver with splenomegaly consistent with portal hypertension per CT POA Esophageal varices Renal parenchymal disease per CT POA Hypothyroidism POA Hypocalcemia POA Hyperlipidemia POA Hypertension POA Anxiety disorder POA Depression POA Restless leg syndrome POA Suspected obstructive sleep apnea untreated POA Morbid obesity POA PLAN: Persistent MRSA bacteremia Osteomyelitis of L2-L3 POA Blood cultures remain positive for gram-positive cocci consistent with MRSA. Currently receiving vancomycin (Day 10) and gentamicin (Day 3) per Infectious Disease (ID) recommendations. Maintain contact precautions for infection control. Repeat blood cultures per Infectious Disease protocol to monitor clearance of bacteremia. Patient will require a 6-week course of IV antibiotics; case management will assist with arranging appropriate placement for long-term IV therapy. Thrombocytopenia due to ITP Received 3 doses of IV IgG; platelet count decreased from31,000 to [address]16. Continue to follow Hematology recommendations for ongoing management of thrombocytopenia. Monitor platelet counts daily. Rule out DIC: order INR, aPTT, and fibrinogen levels tomorrow. Monitor for bleeding or thrombotic complications. Altered Mental Status due to Hepatic Encephalopathy or steroids induced psychosis, resolved Monitor ammonia levels, mental status, and signs of worsening encephalopathy. Monitor neuro status and reassess mental status regularly with steroid adjustments. Intractable lower back pain Per Dr. Sanchez, possible diagnosis of discitis and osteomyelitis at L2-L3 along with psoas inflammation. Continue multimodal pain management: acetaminophen, topical agents Pregabalin will be discontinued due to concern for possible medication-induced slurred speech. CT head showed no evidence of acute intracranial abnormalities. Neuro checks q4 Acute UTI Monitor for signs of urosepsis Encourage hydration and bladder care Hyponatremia, resolved Monitor serum Na closely; consider fluid restriction if dilutional. Renate intertrigo The patient was given fluconazole 150 mg 1 dose today, gradually resolving Cirrhosis with portal hypertension Monitor for decompensation: encephalopathy, ascites, variceal bleeding. Consider beta sergio for variceal prophylaxis. Monitor LFTs, INR, and ammonia Her MELD- Na score is 24 points, 14-15% estimated 90 day mortality Hyperglycemia (Uncontrolled Diabetes) Continue Lantus 50 units daily as per endocrinology recommendations, and taper gradually now that the patient is off steroids. Also similar plan for regular insulin which is 15 units qac band gradually be reduced. Continue high dose SSI Monitor blood glucose QID Educate on diet and insulin compliance; monitor for DKA if concern. Correct electrolytes accordingly. Chronic anemia H/o esophageal varcies due to cirrhosis with portal hypertension Per GI, hold off on EGD given no overt GI bleeding and stable hemoglobin Monitor trends, H&H daily Avoid transfusion unless symptomatic or Hgb <7. We will order morning labs. Further orders per hospitalization course. ATTESTATION BY PHYSICIAN I have seen and examined the patient. I reviewed the documentation, medical decision making, and treatment plan as noted by the resident provider above. I agree with the findings and plan of care. Curtis Sanchez MD, SUZIT MD May 05, 2025 15:46 GLORIA BORDEN MD May 05, 2025 21:01
[2025-05-05] MEDS: venLAFAXine HCL XR 37.5 MG CAP 37.5 MG CAP.ER.24H PO SCH (21:22)
--- NOTE | 2025-05-05 21:30 | PN ---
INFECTIOUS DISEASE PROGRESS NOTE Date of Service: May 05, 2025 SUBJECTIVE: Patient was seen and examined at bedside in room 314. Patient is awake, alert and oriented x3. The right nephrostomy tube which was placed on 04/29/2025 is draining alem colored urine. No hematuria observe. No fever, temperature is 97.7. Continues on Vancomycin and gentamicin. Will repeat blood cultures in AM. Patient is pending insurance approval to [facility]. PHYSICAL EXAM EYES: Anicteric. Pupils equal and reactive. HENT: No oral thrush seen, moist Oral mucosa NECK: Supple, no JVD or thyromegaly. LUNGS: Good air entry. No rales, no rhonchi. Diminished breath sounds. Oxygen support as needed. CARDIOVASCULAR: S1, S2 regular. No murmur heard. ABDOMEN: Soft, non tender, bowel sounds present, no organomegaly. SKIN: No rashes, no swelling. LYMPHATICS: No peripheral lymphadenopathy MUSCULOSKELETAL: No joint swelling, erythema or tenderness. EXTREMITIES: No cyanosis or clubbing BACK: No deformity, no pressure ulcer. Right nephrostomy tube. GENITOURINARY: No dysuria or hematuria, Nolasco catheter. Vital Sign (Last 12 Hours) 05/05/25 05/05/25 05/05/25 12:00 16:00 19:15 Temp 97.7 97.7 97.7 Pulse 75 70 70 Resp 21 21 20 B/P (MAP) 145/53 144/61 135/56 Pulse Ox 95 95 95 O2 Delivery Room Air Room Air Room Air FiO2 21 21 Intake & Output (last 24hrs) 05/04/25 05/04/25 05/05/25 15:00 23:00 07:00 Intake Total 270.0 ml 250.0 ml Output Total 1200 ml 700 ml Balance -930.0 ml -450.0 ml LABS: Laboratory: Test 05/05/25 19:19 05/05/25 15:53 05/05/25 04:55 05/04/25 20:15 Range/Units Whole Blood Glucose 230 H 70-110 MG/DL Bedside Glucose Comment Notified Nurse White Blood Count 6.8 4.8-10.8 K/uL Red Blood Count 3.36 L 4.00-5.50 MIL/uL Hemoglobin 8.6 L 12.0-16.0 g/dL Hematocrit 27.5 L 36-48 % Mean Corpuscular Volume 81.8 79-99 fL Mean Corpuscular Hemoglobin 25.6 L 27.0-33.0 pg Mean Corpuscular Hemoglobin Concent 31.3 L 32.0-36.0 g/dL Red Cell Distribution Width 23.3 H 11.0-15.5 % Platelet Count 26 L 130-400 K/uL Mean Platelet Volume 7.5-10.5 fL Immature Granulocyte % (Auto) 0.9 0-1 % Neutrophils (%) (Auto) 93.4 H 40.0-77.0 % Lymphocytes (%) (Auto) 2.2 L 21.0-51.0 % Monocytes (%) (Auto) 3.4 3.0-13.0 % Eosinophils (%) (Auto) 0.0 0.0-8.0 % Basophils (%) (Auto) 0.1 0.0-5.0 % Neutrophils # (Auto) 6.3 1.8-7.7 K/uL Lymphocytes # (Auto) 0.2 L 1.0-4.8 K/uL Monocytes # (Auto) 0.2 0.1-1.0 K/uL Eosinophils # (Auto) 0.00 0.00-0.70 K/uL Basophils # (Auto) 0.01 0.00-0.20 K/uL Absolute Immature Granulocyte (auto 0.06 0-1 K/uL Nucleated Red Blood Cells 0.0 0.0-0.19 % Prothrombin Time 17.2 H 9.6-11.6 SEC Prothromb Time International Ratio 1.71 H 0.85-1.15 Activated Partial Thromboplast Time 36.3 H 26.3-35.5 SEC Fibrinogen 119 L 180-350 mg/dL Sodium Level 138 136-145 mmol/L Potassium Level 3.9 3.5-5.1 mmol/L Chloride Level 107 101-111 mmol/L Carbon Dioxide Level 26 21-32 mmol/L Blood Urea Nitrogen 32 H 7-18 mg/dL Creatinine 1.1 H 0.5-1.0 mg/dL Glomerular Filtration Rate Calc 59 >90 mL/min Random Glucose 90 70-105 mg/dL Total Calcium 8.2 L 8.5-10.1 mg/dL Vancomycin Level Trough 5.0 #L 10.0-20.0 UG/ML ASSESSMENT: Persistent Methicillin-resistant Staphylococcus aureus bacteremia. Urinary tract infection with methicillin-resistant Staphylococcus aureus. L2 and L3 intervertebral disc osteomyelitis.. Right Hydronephrosis, s/p right nephrostomy tube placement on 04/29/2025. Non-ketotic hyperglycemia. Urinary retention requiring Nolasco catheter placement. Morbid obesity. Thrombocytopenia. Diabetes mellitus. PLAN: We will repeat blood cultures in a.m. Continue Gentamicin IV. Continue vancomycin per pharmacy protocol. Continue pain management. Continue antidiabetic. Continue GI prophylaxis. Patient will need IV antibiotics for 6 weeks and has been referred to [facility].. Cardiology evaluated patient for a possible RAMAN, but not a candidate. This case was reviewed and discussed with my supervising physician and the above assessment and plan was formulated and agreed upon. ATTESTATION BY PHYSICIAN I have seen and examined the patient. I reviewed the documentation, medical decision making, and treatment plan as noted by the mid-level provider above. I agree with the findings and plan of care. EDNA SOARES MD, [facility] May 05, 2025 21:30
--- NOTE | 2025-05-05 22:50 | PN ---
endocrinology progress note Date of Service: May 05, 2025 subjective: glucose are elevated and off steroid now. also on ivig hba1c 9.2, home regimen: lantus 30 units daily and humalog 10 units tid before meals. patient glucose are improving. PAST MEDICAL HISTORY: [undiagnosed obstructive sleep apnea, diabetes type 2, hypertension, hyperlipidemia, hypothyroidism, restless leg syndrome, anxiety disorder,depression, lupus and severe morbid obesity ] PAST SURGICAL HISTORY: [ Cholecystectomy, tubal ligation] PAST SOCIAL HISTORY: [ Patient lives with . Patient denies alcohol tobacco and recreational drug use] FAMILY HISTORY: [ Hypertension, diabetes, cardiovascular disease and Alzheimer's disease ] Coded Allergies: No Known Allergies (Unverified Allergy, Unknown, 08/26/14) ASSESSMENT: hyperglycemia due to uncontrolled dm-2 and off steroids now. glucose are elevated but improving. hba1c 9.2, home regimen: lantus 30 units daily and humalog 10 units tid before meals. Intractable low back pain POA Acute thrombocytopenia POA Acute urinary tract infection POA Chronic anemia POA Hyponatremia POA Acute kidney injury on renal insufficiency POA Hypocalcemia POA Cirrhotic liver with splenomegaly consistent with portal hypertension per CT POA Renal parenchymal disease per CT POA Hypothyroidism POA Hyperlipidemia POA Hypertension POA Anxiety disorder POA Depression POA Restless leg syndrome POA Suspected obstructive sleep apnea untreated POA Morbid obesity POA PLAN: decrease lantus to 30 units daily continue regular insulin 12 units qac before meals and was not given today. decrease ssi to medium dose ssi monitor glucose qx6 hourly Vitals/Labs Vital Signs Date Time Temp Pulse Resp B/P (MAP) Pulse Ox O2 Delivery O2 Flow Rate FiO2 05/05/25 19:15 97.7 70 20 135/56 95 Room Air 05/05/25 16:00 21 05/05/25 08:00 0 Laboratory Tests 05/05/25 04:55 Medications Current Medications Sodium Chloride 1,000 ml @ 0 mls/hr ONCE ONCE IV Last administered on 04/22/25at 17:27; Start 04/22/25 at 17:00; Stop 04/22/25 at 17:01; Status DC Ceftriaxone Sodium 1 gm ONCE ONCE IVPB Last administered on 04/22/25at 19:43; Start 04/22/25 at 19:00; Stop 04/22/25 at 19:01; Status DC Acetaminophen 650 mg Q6H PRN PO Last administered on 04/23/25at 10:02; Start 04/22/25 at 20:00; Stop 05/22/25 at 19:59 Acetaminophen 650 mg Q4H PRN PO Last administered on 04/30/25at 06:17; Start 04/22/25 at 20:00; Stop 05/22/25 at 19:59 Ondansetron HCl 4 mg Q6H PRN IV Last administered on 04/22/25at 20:10; Start 04/22/25 at 20:00; Stop 05/22/25 at 19:59 Famotidine 20 mg DAILY PO Last administered on 04/23/25at 09:33; Start 04/23/25 at 09:00; Stop 04/24/25 at 09:48; Status DC Ceftriaxone Sodium 1 gm/ Sodium Chloride 50 ml @ 100 mls/hr BID IV; Start 04/22/25 at 21:00; Stop 04/22/25 at 19:59; Status DC Lactated Ringer's 1,000 ml @ 100 mls/hr Q10H IV Last administered on 04/23/25at 06:00; Start 04/22/25 at 20:00; Stop 04/23/25 at 10:09; Status DC Insulin Human Regular INSULIN SLIDING SCAL... ACHS SQ Last administered on 04/24/25at 11:18; Start 04/22/25 at 21:00; Stop 04/24/25 at 16:16; Status DC Dextrose 50 ml AD PRN IV; Start 04/22/25 at 20:00; Stop 05/22/25 at 19:59 Glucagon 1 mg AD PRN IM; Start 04/22/25 at 20:00; Stop 05/22/25 at 19:59 Magnesium Sulfate 50 ml @ 0 mls/hr PROTOCOL PRN IV; Start 04/22/25 at 20:00; Stop 05/22/25 at 19:59 Potassium Chloride 100 ml @ 100 mls/hr AD PRN IV; Start 04/22/25 at 20:00; Stop 05/22/25 at 19:59 Potassium Chloride 20 meq AD PRN PO; Start 04/22/25 at 20:00; Stop 05/22/25 at 19:59 Potassium Chloride 20 meq AD PRN PO Last administered on 05/03/25at 13:10; Start 04/22/25 at 20:00; Stop 05/22/25 at 19:59 Ceftriaxone Sodium 1 gm BID IVPB; Start 04/22/25 at 21:00; Stop 04/22/25 at 20:44; Status DC Morphine Sulfate 4 mg ONCE ONCE IVP Last administered on 04/22/25at 20:11; Start 04/22/25 at 20:30; Stop 04/22/25 at 20:31; Status DC Lidocaine 1 each ONCE ONCE TP Last administered on 04/22/25at 21:14; Start 04/22/25 at 21:00; Stop 04/22/25 at 21:01; Status DC Ceftriaxone Sodium 1 gm BID IVPB Last administered on 04/25/25at 09:44; Start 04/23/25 at 09:00; Stop 04/25/25 at 12:36; Status DC Methylprednisolone Sodium Succinate 125 mg Q6H IVP Last administered on 04/25/25at 09:45; Start 04/23/25 at 08:00; Stop 04/28/25 at 09:10; Status DC Albuterol Sulfate 1.25 ONCE ONCE IH Last administered on 04/23/25at 09:40; Start 04/23/25 at 09:30; Stop 04/23/25 at 09:31; Status DC Calcium Gluconate 1 gm ONCE ONCE IV Last administered on 04/23/25at 10:55; Start 04/23/25 at 10:30; Stop 04/23/25 at 10:31; Status DC Sodium Chloride 50 ml @ 0 mls/hr ONCE ONCE IV Last administered on 04/23/25at 11:00; Start 04/23/25 at 11:00; Stop 04/23/25 at 11:01; Status DC Sodium Zirconium Cyclosilicate 10 gm ONCE ONCE PO Last administered on 04/23/25at 14:14; Start 04/23/25 at 14:00; Stop 04/23/25 at 16:08; Status DC Hydromorphone HCl 0.5 mg Q6H PRN IVP Last administered on 04/25/25at 04:14; Start 04/23/25 at 14:00; Stop 04/25/25 at 08:25; Status DC Sodium Zirconium Cyclosilicate 10 gm TID PO; Start 04/23/25 at 21:00; Stop 04/23/25 at 14:11; Status DC Pantoprazole Sodium 40 mg DAILY IVP Last administered on 05/05/25at 10:58; Start 04/24/25 at 10:00; Stop 05/24/25 at 09:59 Pregabalin 75 mg BID PO; Start 04/24/25 at 21:00; Stop 04/24/25 at 14:49; Status DC Vancomycin HCl 1 each AD IV; Start 04/24/25 at 10:30; Stop 04/25/25 at 12:36; Status DC Vancomycin HCl 500 ml @ 250 mls/hr ONCE ONCE IV Last administered on 04/24/25at 12:46; Start 04/24/25 at 11:00; Stop 04/24/25 at 12:59; Status DC Vancomycin HCl 250 ml @ 125 mls/hr Q12H IV Last administered on 04/25/25at 11:43; Start 04/24/25 at 23:00; Stop 04/25/25 at 12:36; Status DC Insulin Glargine 10 units HS SQ; Start 04/24/25 at 21:00; Stop 04/24/25 at 16:57; Status DC Insulin Glargine 10 units ONCE STAT SQ Last administered on 04/24/25at 11:19; Start 04/24/25 at 10:54; Stop 04/24/25 at 11:00; Status DC Atorvastatin Calcium 20 mg HS PO Last administered on 05/05/25at 21:22; Start 04/24/25 at 21:00; Stop 05/24/25 at 20:59 Gabapentin 300 mg BID PO Last administered on 04/25/25at 21:51; Start 04/24/25 at 21:00; Stop 04/28/25 at 09:10; Status DC Levothyroxine Sodium 125 mcg DAILY@0630 PO Last administered on 05/05/25at 06:02; Start 04/25/25 at 06:30; Stop 05/25/25 at 06:29 Metoprolol Succinate 50 mg AM PO Last administered on 05/05/25at 10:58; Start 04/25/25 at 09:00; Stop 05/25/25 at 08:59 Venlafaxine HCl 37.5 mg DAILY PO; Start 04/25/25 at 09:00; Stop 04/24/25 at 14:50; Status DC Pramipexole Dihydrochloride 0.5 mg HS PO Last administered on 05/05/25at 21:22; Start 04/24/25 at 21:00; Stop 05/24/25 at 20:59 Venlafaxine HCl 37.5 mg DAILY PO Last administered on 05/04/25at 09:21; Start 04/24/25 at 16:00; Stop 05/05/25 at 11:18; Status DC Insulin Human Regular INSULIN SLIDING SCAL... ACHS SQ Last administered on 04/25/25at 11:57; Start 04/24/25 at 16:30; Stop 04/25/25 at 14:09; Status DC Insulin Glargine 15 units HS SQ; Start 04/24/25 at 21:00; Stop 04/24/25 at 17:06; Status DC Insulin Human Regular 5 unit TIDAC SQ; Start 04/24/25 at 17:00; Stop 04/24/25 at 17:06; Status DC Insulin Glargine 30 units ONCE SQ Last administered on 04/24/25at 18:16; Start 04/24/25 at 17:00; Stop 04/25/25 at 06:19; Status DC Insulin Human Regular 10 unit TIDAC SQ Last administered on 04/25/25at 06:15; Start 04/24/25 at 17:00; Stop 04/25/25 at 06:17; Status DC Tramadol HCl 50 mg Q6H PRN PO Last administered on 04/28/25at 13:55; Start 04/24/25 at 22:30; Stop 04/29/25 at 22:29; Status DC Insulin Human Regular 25 unit TIDAC SQ Last administered on 04/25/25at 17:39; Start 04/25/25 at 07:30; Stop 04/26/25 at 07:58; Status DC Insulin Glargine 70 units ONCE ONCE SQ Last administered on 04/25/25at 06:27; Start 04/25/25 at 06:30; Stop 04/25/25 at 06:31; Status DC Hydromorphone HCl 0.5 mg BIDPRN PRN IVP Last administered on 04/29/25at 23:31; Start 04/25/25 at 19:00; Stop 04/30/25 at 11:59; Status DC Heparin Sodium (Porcine) 5,000 unit Q8H SQ; Start 04/25/25 at 09:00; Stop 04/25/25 at 08:40; Status DC Lactulose 30 gm TID PO Last administered on 04/30/25at 09:16; Start 04/25/25 at 11:00; Stop 04/30/25 at 09:45; Status DC Sodium Chloride 500 ml @ 0 mls/hr Q0M IV; Start 04/25/25 at 11:00; Stop 05/25/25 at 10:59 Trimethoprim/ Sulfamethoxazole 1 tab BID PO Last administered on 04/25/25at 21:51; Start 04/25/25 at 21:00; Stop 04/26/25 at 14:50; Status DC Insulin Human Regular INSULIN SLIDING SCAL... ACHS SQ Last administered on 05/04/25at 20:49; Start 04/25/25 at 16:30; Stop 05/04/25 at 23:42; Status DC Diazepam 10 mg ONCE ONCE IM; Start 04/25/25 at 15:00; Stop 04/25/25 at 15:01; Status DC Lactulose 200 gm ONCE ONCE [place] Last administered on 04/25/25at 17:30; Start 04/25/25 at 16:30; Stop 04/25/25 at 16:31; Status DC Lorazepam 0.5 mg ONCE ONCE PO Last administered on 04/25/25at 19:07; Start 04/25/25 at 19:00; Stop 04/25/25 at 19:01; Status DC Haloperidol Lactate 1 mg ONCE ONCE IM Last administered on 04/26/25at 05:17; Start 04/26/25 at 05:00; Stop 04/26/25 at 05:02; Status DC Insulin Human Regular 15 unit TIDAC SQ; Start 04/26/25 at 11:30; Stop 04/27/25 at 20:30; Status DC Insulin Glargine 50 units DAILY SQ Last administered on 04/28/25at 08:46; Start 04/26/25 at 09:00; Stop 04/29/25 at 06:49; Status DC Dextrose 1,000 ml @ 75 mls/hr [id number] IV Last administered on 04/29/25at 04:27; Start 04/26/25 at 12:00; Stop 04/30/25 at 09:36; Status DC Dexmedetomidine/ Sodium Chloride 200 mcg PROTOCOL IV; Start 04/26/25 at 12:00; Stop 04/26/25 at 14:54; Status DC Dexmedetomidine/ Sodium Chloride 400 mcg STK-MED ONCE IV; Start 04/26/25 at 14:49; Stop 04/26/25 at 14:50; Status DC Vancomycin HCl 1 each AD IV; Start 04/26/25 at 15:00; Stop 05/10/25 at 14:59 Dexmedetomidine/ Sodium Chloride 400 mcg PROTOCOL STAT IV Last administered on 04/26/25at 15:18; Start 04/26/25 at 14:53; Stop 04/26/25 at 14:58; Status DC Vancomycin HCl 250 ml @ 125 mls/hr Q12H IV Last administered on 04/27/25at 15:22; Start 04/26/25 at 15:30; Stop 04/28/25 at 03:13; Status DC Dexmedetomidine/ Sodium Chloride 400 mcg PROTOCOL PRN IV Last administered on 04/27/25at 23:31; Start 04/26/25 at 19:30; Stop 05/01/25 at 12:45; Status DC Dexmedetomidine/ Sodium Chloride 400 mcg STK-MED ONCE IV Last administered on 04/26/25at 19:14; Start 04/26/25 at 19:10; Stop 04/26/25 at 19:11; Status DC Insulin Human Regular INSULIN SLIDING SCAL... Q4H SQ Last administered on 04/28/25at 06:00; Start 04/27/25 at 20:30; Stop 04/28/25 at 09:11; Status DC Vancomycin HCl 250 ml @ 125 mls/hr Q12H IV; Start 04/28/25 at 15:30; Stop 04/28/25 at 18:53; Status DC Insulin Human Regular 8 unit TIDAC SQ Last administered on 04/30/25at 06:15; Start 04/28/25 at 07:30; Stop 04/30/25 at 07:31; Status DC Vancomycin HCl 250 ml @ 125 mls/hr Q12H IV Last administered on 05/02/25at 10:21; Start 04/28/25 at 20:00; Stop 05/02/25 at 20:34; Status DC Insulin Glargine 40 units DAILY SQ; Start 04/29/25 at 09:00; Stop 04/30/25 at 07:31; Status DC Lidocaine HCl 50 ml STK-MED ONCE .ROUTE; Start 04/29/25 at 16:03; Stop 04/29/25 at 16:06; Status DC Heparin Sodium/ Sodium Chloride 500 ml @ As Directed STK-MED ONCE IV; Start 04/29/25 at 16:03; Stop 04/29/25 at 16:06; Status DC Iodixanol 100 ml STK-MED ONCE .ROUTE; Start 04/29/25 at 16:04; Stop 04/29/25 at 16:06; Status DC Fentanyl Citrate 100 mcg STK-MED ONCE .ROUTE; Start 04/29/25 at 16:27; Stop 04/29/25 at 16:28; Status DC Midazolam HCl 2 mg STK-MED ONCE .ROUTE; Start 04/29/25 at 16:28; Stop 04/29/25 at 16:28; Status DC Midazolam HCl 2 mg STK-MED ONCE .ROUTE; Start 04/29/25 at 16:52; Stop 04/29/25 at 16:52; Status DC Lidocaine 1 each ONCE ONCE TP Last administered on 04/29/25at 19:18; Start 04/29/25 at 18:30; Stop 04/29/25 at 18:33; Status DC Insulin Glargine 50 units DAILY SQ Last administered on 05/04/25at 09:30; Start 04/30/25 at 09:00; Stop 05/05/25 at 07:21; Status DC Insulin Human Regular 12 unit TIDAC SQ Last administered on 05/02/25at 06:45; Start 04/30/25 at 07:30; Stop 05/02/25 at 08:05; Status DC Hydromorphone HCl 1 mg TIDP PRN IVP Last administered on 04/30/25at 20:44; Start 04/30/25 at 13:00; Stop 05/01/25 at 18:46; Status DC Acetaminophen/ Hydrocodone Bitart 1 tab Q4H PRN PO Last administered on 04/30/25at 22:07; Start 04/30/25 at 12:00; Stop 05/05/25 at 11:59; Status DC Pharmacy Profile Note 1 each ONCE MISC; Start 05/01/25 at 08:00; Stop 04/30/25 at 16:52; Status DC Immune Globulin 400 ml @ 0 mls/hr Q24H IV Last administered on 05/01/25at 16:18; Start 05/01/25 at 14:00; Stop 05/02/25 at 12:38; Status DC Pregabalin 25 mg BID PO Last administered on 05/04/25at 09:22; Start 05/01/25 at 21:00; Stop 05/05/25 at 07:22; Status DC Lisinopril 10 mg DAILY PO Last administered on 05/05/25at 10:58; Start 05/02/25 at 09:00; Stop 06/01/25 at 08:59 Diphenhydramine HCl 25 mg ONCE PRN IVP; Start 05/01/25 at 15:00; Stop 05/01/25 at 15:06; Status DC Dexamethasone Sodium Phosphate 20 mg ONCE PRN IV; Start 05/01/25 at 15:00; Stop 05/01/25 at 15:05; Status DC Dexamethasone Sodium Phosphate 20 mg ONCALL IV Last administered on 05/02/25at 15:41; Start 05/01/25 at 15:30; Stop 05/03/25 at 15:31; Status DC Diphenhydramine HCl 25 mg ONCALL IVP Last administered on 05/02/25at 15:41; Start 05/01/25 at 15:30; Stop 05/03/25 at 15:31; Status DC Hydromorphone HCl 1 mg TID PRN IVP; Start 05/01/25 at 19:00; Stop 05/05/25 at 12:59; Status DC Insulin Human Regular 15 unit TIDAC SQ Last administered on 05/04/25at 17:33; Start 05/02/25 at 11:30; Stop 05/05/25 at 07:21; Status DC Immune Globulin 400 ml @ 0 mls/hr Q24H IV Last administered on 05/02/25at 16:46; Start 05/02/25 at 16:00; Stop 05/03/25 at 16:01; Status DC Vancomycin HCl 250 ml @ 125 mls/hr Q12H9 IV Last administered on 05/05/25at 21:22; Start 05/04/25 at 21:00; Stop 05/14/25 at 20:59 Pharmacy Profile Note 1 each ONCE MISC; Start 05/03/25 at 12:00; Stop 05/03/25 at 12:58; Status DC Gentamicin Sulfate/Sodium Chloride 100 ml @ 200 mls/hr Q24H IV Last administered on 05/05/25at 15:08; Start 05/03/25 at 14:00; Stop 05/13/25 at 13:59 Dexamethasone Sodium Phosphate 20 mg ONCALL IV Last administered on 05/03/25at 17:23; Start 05/03/25 at 17:15; Stop 05/03/25 at 17:16; Status DC Diphenhydramine HCl 25 mg ONCALL IVP Last administered on 05/03/25at 17:22; Start 05/03/25 at 17:15; Stop 05/03/25 at 17:16; Status DC Immune Globulin 400 ml @ 0 mls/hr Q24H IV Last administered on 05/03/25at 17:57; Start 05/03/25 at 17:15; Stop 05/03/25 at 17:16; Status DC Fluconazole 150 mg ONCE ONCE PO Last administered on 05/04/25at 15:57; Start 05/04/25 at 15:30; Stop 05/04/25 at 15:31; Status DC Insulin Human Regular INSULIN SLIDING SCAL... ACHS SQ Last administered on 05/05/25at 21:26; Start 05/05/25 at 07:30; Stop 06/04/25 at 07:29 Insulin Glargine 30 units DAILY SQ Last administered on 05/05/25at 10:38; Start 05/05/25 at 09:00; Stop 06/04/25 at 08:59 Insulin Human Regular 12 unit TIDAC SQ; Start 05/05/25 at 07:30; Stop 06/04/25 at 07:29 Venlafaxine HCl 37.5 mg HS PO Last administered on 05/05/25at 21:22; Start 05/05/25 at 21:00; Stop 06/04/25 at 20:59 PARAG VANG MD May 05, 2025 22:50
[2025-05-06] VITALS (8 sets, daily range): BP systolic 121–141; BP diastolic 43–54; PULSE 60–73; RESP 20–22; TEMP 97.5–98.1; O2SAT 96
[2025-05-06 05:29] LABS: IMMATURE GRANULOCYTE ABSOLUTE 0.03 K/uL (0-1); NUCLEATED RED BLOOD CELLS 0.0 % (0.0-0.19); PLATELET COUNT (AUTO) 18 K/uL (130-400); RED BLOOD CELL COUNT(AUTO) 3.42 MIL/uL (4.00-5.50); RED CELL DISTRIBUTION WIDTH 23.4 % (11.0-15.5); WHITE BLOOD COUNT (AUTO) 5.1 K/uL (4.8-10.8)
[2025-05-06 05:40] LABS: ASPARTATE AMINOTRANSFERASE 166.0 U/L (10-37); CREATININE 1.2 mg/dL (0.5-1.0); GLOMERULAR FILTR. RATE CALC 53.0 mL/min (>90); GLUCOSE,RANDOM 188.0 mg/dL (70-105); SODIUM SERUM 136.0 mmol/L (136-145); TOTAL PROTEIN, SERUM 7.6 g/dL (6.0-8.3); UREA NITROGEN, BLOOD 33.0 mg/dL (7-18)
--- NOTE | 2025-05-06 08:07 | PN ---
SUBJECTIVE: The patient has MRSA sepsis. She is awake, alert, she is not bleeding, tolerating the antibiotics well, but referred to [facility], awaiting acceptance there. REVIEW OF SYSTEMS: Negative. She is in no pain. PHYSICAL EXAMINATION: GENERAL: She is a pleasant middle-aged woman. VITAL SIGNS: Blood pressure 126/52, pulse 70, respirations 20. CHEST: Clear. ABDOMEN: Soft. EXTREMITIES: Show no edema. NEUROLOGICAL: Awake and oriented. LABORATORY DATA: Reviewed. CBC 5.8, platelets 18,000. IMPRESSION: Complex anemia, ITP, cirrhosis, thrombocytopenia, MRSA sepsis, infected spine. PLAN: Continue medical management. Continue antibiotics. We will consider platelet transfusion today one time. If her counts continue to go down, I would be happy to arrange for her to receive. TID: [id number] RECEIPT: [id number]
--- NOTE | 2025-05-06 09:36 | PN ---
FOLLOWUP PROGRESS NOTE SUBJECTIVE: A 54-year-old female initially presented with persistent bacteremia. The patient's workup is consistent with osteomyelitis. She remains on the broad-spectrum IV antibiotics. She has had acute on chronic renal failure in the hospital. Creatinine has been elevated and the patient is being seen as a followup visit for all of the above. REVIEW OF SYSTEMS: CONSTITUTIONAL: She is feeling somewhat improved. HEENT: No change in vision. No change in hearing. CARDIOVASCULAR: There is no current chest pains or palpitations. PULMONARY: There is no shortness of breath. GASTROINTESTINAL: She is not tolerating a diet. MUSCULOSKELETAL: Her back pain is improved. PHYSICAL EXAMINATION: VITAL SIGNS: Blood pressure is 126/52, pulse 70. She is afebrile. GENERAL: She is a chronically ill female, much older than appearing. HEENT: Head is atraumatic. Pupils are equal, roving to light. Oropharynx is without exudate. Nares clear. NECK: There is no JVP. There is no thyromegaly, no mass. CARDIOVASCULAR: Regular. There is no S3 or S4 gallop. LUNGS: Coarse with equal thoracic movement. ABDOMEN: Soft, nondistended, and nontender. EXTREMITIES: There is no clubbing, no cyanosis. NEUROLOGICAL: She is awake, she is alert. LABORATORY DATA: BUN 33, creatinine 1.2, sodium 136. Hemoglobin 8.9, hematocrit 27. IMPRESSION: * Acute renal failure. * Osteomyelitis. * Gram-positive bacteremia. * History of lupus. PLAN: The patient continues with the IV antibiotics. Cultures were all noted. The patient's renal function has actually greatly improved. The patient is being seen by case management in regards to [facility] at the [facility] and we will continue to follow the patient closely. TID: [id number] RECEIPT: [id number]
--- NOTE | 2025-05-06 10:22 | PN ---
GASTROENTEROLOGY PROGRESS NOTE Date of Visit: May 06, 2025 Time of Visit: 10:22 Events / Notes: [ ] Review of Systems: CONSTITUTIONAL: No malaise or change in sensation of wellbeing. ENMT: No rhinorrhea, otorrhea, sinus pain, ear ache. CARDIOVASCULAR: No angina, palpitations, orthopnea or paroxysmal dyspnea. RESPIRATORY: No SOB. GASTROINTESTINAL: No abdominal pain, nausea, vomiting, diarrhea, hematemesis, melena or change in the patient's habitual bowel movements consistency/number. GENITOURINARY: No dysuria, hematuria or change in bladder continence. MUSCULOSKELETAL: No new muscle pain or decrease in muscular strength. No new joint swelling, redness or tenderness. SKIN: No new rash. Physical Exam: GEN: Awake, alert, oriented in person, time and place, and in no acute distress. HEENT: No sinus tenderness. Tympanic membranes were not examined. No rhinorrhea. Oral pharyngeal mucosa is pink, moist and within normal limits. Neck is supple with no cervical lymphadenopathy, thyromegaly or JVD. CHEST: Inspection, palpation and percussion of the chest were unremarkable. Lung auscultation revealed normal breath sounds bilaterally. CARDIAC: PMI is within normal limits. Heart sounds are regular. Normal S1, S2. No gallop or murmur. ABD: Soft, non-tender and not distended. No peritoneal signs on palpation. No organomegaly. Normal bowel sounds. EXT: No cyanosis or clubbing. No edema. SKIN: Intact. No rashes. JOINTS: No evidence of synovitis or acute arthritis. NEURO: Alert and oriented to name, place and person. Cranial nerve examination is unremarkable. No focal motor deficits. Normal speech. Gait is normal. Strength is normal. Vital Signs (last 8hr) Date Time Temp Pulse Resp B/P (MAP) Pulse Ox O2 Delivery O2 Flow Rate FiO2 05/06/25 08:00 98.1 60 21 141/54 93 Room Air 21 05/06/25 06:00 97.5 70 20 126/52 94 Room Air 05/06/25 04:06 97.5 70 20 126/52 94 Room Air Laboratory: [ ] Laboratory: Test 05/06/25 07:40 05/06/25 05:23 05/06/25 05:01 05/05/25 15:53 Range/Units Vancomycin Level Trough 18.1 # 10.0-20.0 UG/ML White Blood Count 5.1 4.8-10.8 K/uL Red Blood Count 3.42 L 4.00-5.50 MIL/uL Hemoglobin 8.9 L 12.0-16.0 g/dL Hematocrit 27.8 L 36-48 % Mean Corpuscular Volume 81.3 79-99 fL Mean Corpuscular Hemoglobin 26.0 L 27.0-33.0 pg Mean Corpuscular Hemoglobin Concent 32.0 32.0-36.0 g/dL Red Cell Distribution Width 23.4 H 11.0-15.5 % Platelet Count 18 #L 130-400 K/uL Mean Platelet Volume 7.5-10.5 fL Immature Granulocyte % (Auto) 0.6 0-1 % Neutrophils (%) (Auto) 87.2 H 40.0-77.0 % Lymphocytes (%) (Auto) 6.7 L 21.0-51.0 % Monocytes (%) (Auto) 5.5 3.0-13.0 % Eosinophils (%) (Auto) 0.0 0.0-8.0 % Basophils (%) (Auto) 0.0 0.0-5.0 % Neutrophils # (Auto) 4.5 1.8-7.7 K/uL Lymphocytes # (Auto) 0.3 L 1.0-4.8 K/uL Monocytes # (Auto) 0.3 0.1-1.0 K/uL Eosinophils # (Auto) 0.00 0.00-0.70 K/uL Basophils # (Auto) 0.00 0.00-0.20 K/uL Absolute Immature Granulocyte (auto 0.03 0-1 K/uL Nucleated Red Blood Cells 0.0 0.0-0.19 % Sodium Level 136 136-145 mmol/L Potassium Level 4.4 3.5-5.1 mmol/L Chloride Level 105 101-111 mmol/L Carbon Dioxide Level 28 21-32 mmol/L Blood Urea Nitrogen 33 H 7-18 mg/dL Creatinine 1.2 H 0.5-1.0 mg/dL Glomerular Filtration Rate Calc 53 >90 mL/min Random Glucose 188 H 70-105 mg/dL Total Calcium 7.9 L 8.5-10.1 mg/dL Total Bilirubin 1.6 H 0.2-1.0 mg/dL Aspartate Amino Transf (AST/SGOT) 166 H 10-37 U/L Alanine Aminotransferase (ALT/SGPT) 136 H 12-78 U/L Alkaline Phosphatase 358 H 50-136 U/L C-Reactive Protein, Quantitative 61.50 H 0.5-3.0 mg/L Total Protein 7.6 6.0-8.3 g/dL Albumin 1.4 L 3.5-5.0 g/dL Whole Blood Glucose 171 H 70-110 MG/DL Bedside Glucose Comment Notified Nurse Test 05/05/25 04:55 Range/Units Prothrombin Time 17.2 H 9.6-11.6 SEC Prothromb Time International Ratio 1.71 H 0.85-1.15 Activated Partial Thromboplast Time 36.3 H 26.3-35.5 SEC Fibrinogen 119 L 180-350 mg/dL Current Medications Medications (Trade) Dose Ordered Sig/Roberth Route PRN Reason Start Time Stop Time Status Last Admin Dose Admin Acetaminophen (TYLenol 325MG TAB) 650 mg Q4H PRN PO MILD PAIN (1-3) 04/22/25 20:00 05/22/25 19:59 04/30/25 06:17 650 MG Acetaminophen (TYLenol 325MG TAB) 650 mg Q6H PRN PO TEMPERATURE GREATER THAN 101.5 04/22/25 20:00 05/22/25 19:59 04/23/25 10:02 650 MG Acetaminophen/ Hydrocodone Bitart (NORco 5/325MG) 1 tab Q4H PRN PO MODERATE PAIN (4-6) 04/30/25 12:00 05/05/25 11:59 DC 04/30/25 22:07 1 TAB Atorvastatin Calcium (LIPItor 20MG) 20 mg HS PO 04/24/25 21:00 05/24/25 20:59 05/05/25 21:22 20 MG Ceftriaxone Sodium 1 gm/ Sodium Chloride 50 ml @ 100 mls/hr BID IV 04/22/25 21:00 04/22/25 19:59 DC Ceftriaxone Sodium (ROCEphine 1G INJ) 1 gm BID IVPB 04/22/25 21:00 04/22/25 20:44 DC Ceftriaxone Sodium (ROCEphine 1G INJ) 1 gm BID IVPB 04/23/25 09:00 04/25/25 12:36 DC 04/25/25 09:44 1 GM Dexamethasone Sodium Phosphate (dexaMETHasone 4MG/ML 1ML VIAL) 20 mg ONCALL IV 05/01/25 15:30 05/03/25 15:31 DC 05/02/25 15:41 20 MG Dexamethasone Sodium Phosphate (dexaMETHasone 4MG/ML 1ML VIAL) 20 mg ONCALL IV 05/03/25 17:15 05/03/25 17:16 DC 05/03/25 17:23 20 MG Dexamethasone Sodium Phosphate (dexaMETHasone 4MG/ML 1ML VIAL) 20 mg ONCE PRN IV PRE-MED 05/01/25 15:00 05/01/25 15:05 DC Dexmedetomidine/ Sodium Chloride (PRECEdex 200MCG/ 50ML-NS) 200 mcg PROTOCOL IV 04/26/25 12:00 04/26/25 14:54 DC Dexmedetomidine/ Sodium Chloride (PRECEdex 400MCG/ 100ML-NS) 400 mcg PROTOCOL PRN IV ANXIETY/AGITATION 04/26/25 19:30 05/01/25 12:45 DC 04/27/25 23:31 400 MCG Dexmedetomidine/ Sodium Chloride (PRECEdex 400MCG/ 100ML-NS) 400 mcg PROTOCOL STAT IV 04/26/25 14:53 04/26/25 14:58 DC 04/26/25 15:18 400 MCG Dextrose 1,000 ml @ 75 mls/hr [id number] IV 04/26/25 12:00 04/30/25 09:36 DC 04/29/25 04:27 150 MLS/HR Dextrose (D50w) 50 ml AD PRN IV HYPOGLYCEMIA PROTOCOL 04/22/25 20:00 05/22/25 19:59 Diphenhydramine HCl (BENAdryl INJ) 25 mg ONCALL IVP 05/01/25 15:30 05/03/25 15:31 DC 05/02/25 15:41 25 MG Diphenhydramine HCl (BENAdryl INJ) 25 mg ONCALL IVP 05/03/25 17:15 05/03/25 17:16 DC 05/03/25 17:22 25 MG Diphenhydramine HCl (BENAdryl INJ) 25 mg ONCE PRN IVP PRE-MED 05/01/25 15:00 05/01/25 15:06 DC Famotidine (Pepcid 20mg Tab) 20 mg DAILY PO 04/23/25 09:00 04/24/25 09:48 DC 04/23/25 09:33 20 MG Gabapentin (NEURontin 300 MG CAP) 300 mg BID PO 04/24/25 21:00 04/28/25 09:10 DC 04/25/25 21:51 300 MG Gentamicin Sulfate/Sodium Chloride 100 ml @ 200 mls/hr Q24H IV 05/03/25 14:00 05/13/25 13:59 05/05/25 15:08 200 MLS/HR Glucagon (Glucagon 1mg Kit) 1 mg AD PRN IM HYPOGLYCEMIA PROTOCOL 04/22/25 20:00 05/22/25 19:59 Heparin Sodium (Porcine) (HEParin 5,000 UNIT VIAL) 5,000 unit Q8H SQ 04/25/25 09:00 04/25/25 08:40 DC Hydromorphone HCl (DiLAUDid 0.5MG INJ) 0.5 mg BIDPRN PRN IVP SEVERE PAIN (7-10) 04/25/25 19:00 04/30/25 11:59 DC 04/29/25 23:31 0.5 MG Hydromorphone HCl (DiLAUDid 0.5MG INJ) 0.5 mg Q6H PRN IVP SEVERE PAIN (7-10) 04/23/25 14:00 04/25/25 08:25 DC 04/25/25 04:14 0.5 MG Hydromorphone HCl (DiLAUDid 1MG INJ) 1 mg TID PRN IVP SEVERE PAIN (7-10) 05/01/25 19:00 05/05/25 12:59 DC Hydromorphone HCl (DiLAUDid 1MG INJ) 1 mg TIDP PRN IVP SEVERE PAIN (7-10) 04/30/25 13:00 05/01/25 18:46 DC 04/30/25 20:44 1 MG Immune Globulin 400 ml @ 0 mls/hr Q24H IV 05/01/25 14:00 05/02/25 12:38 DC 05/01/25 16:18 37.5 MLS/HR Immune Globulin 400 ml @ 0 mls/hr Q24H IV 05/02/25 16:00 05/03/25 16:01 DC 05/02/25 16:46 37.5 MLS/HR Immune Globulin 400 ml @ 0 mls/hr Q24H IV 05/03/25 17:15 05/03/25 17:16 DC 05/03/25 17:57 37.5 MLS/HR Insulin Glargine (LANtus 100 UNITS/ML 10 ML VIAL) 10 units HS SQ 04/24/25 21:00 04/24/25 16:57 DC Insulin Glargine (LANtus 100 UNITS/ML 10 ML VIAL) 10 units ONCE STAT SQ 04/24/25 10:54 04/24/25 11:00 DC 04/24/25 11:19 10 UNITS Insulin Glargine (LANtus 100 UNITS/ML 10 ML VIAL) 15 units HS SQ 04/24/25 21:00 04/24/25 17:06 DC Insulin Glargine (LANtus 100 UNITS/ML 10 ML VIAL) 30 units DAILY SQ 05/05/25 09:00 06/04/25 08:59 05/06/25 10:09 30 UNITS Insulin Glargine (LANtus 100 UNITS/ML 10 ML VIAL) 30 units ONCE SQ 04/24/25 17:00 04/25/25 06:19 DC 04/24/25 18:16 30 UNITS Insulin Glargine (LANtus 100 UNITS/ML 10 ML VIAL) 40 units DAILY SQ 04/29/25 09:00 04/30/25 07:31 DC Insulin Glargine (LANtus 100 UNITS/ML 10 ML VIAL) 50 units DAILY SQ 04/26/25 09:00 04/29/25 06:49 DC 04/28/25 08:46 50 UNITS Insulin Glargine (LANtus 100 UNITS/ML 10 ML VIAL) 50 units DAILY SQ 04/30/25 09:00 05/05/25 07:21 DC 05/04/25 09:30 50 UNITS Insulin Human Regular (humuLIN R 100 UNIT/ML 3ML) 5 unit TIDAC SQ 04/24/25 17:00 04/24/25 17:06 DC Insulin Human Regular (humuLIN R 100 UNIT/ML 3ML) 8 unit TIDAC SQ 04/28/25 07:30 04/30/25 07:31 DC 04/30/25 06:15 8 UNIT Insulin Human Regular (humuLIN R 100 UNIT/ML 3ML) 10 unit TIDAC SQ 05/06/25 07:30 06/05/25 07:29 Insulin Human Regular (humuLIN R 100 UNIT/ML 3ML) 10 unit TIDAC SQ 04/24/25 17:00 04/25/25 06:17 DC 04/25/25 06:15 10 UNIT Insulin Human Regular (humuLIN R 100 UNIT/ML 3ML) 12 unit TIDAC SQ 05/05/25 07:30 05/05/25 22:51 DC Insulin Human Regular (humuLIN R 100 UNIT/ML 3ML) 12 unit TIDAC SQ 04/30/25 07:30 05/02/25 08:05 DC 05/02/25 06:45 12 UNIT Insulin Human Regular (humuLIN R 100 UNIT/ML 3ML) 15 unit TIDAC SQ 05/02/25 11:30 05/05/25 07:21 DC 05/04/25 17:33 15 UNIT Insulin Human Regular (humuLIN R 100 UNIT/ML 3ML) 15 unit TIDAC SQ 04/26/25 11:30 04/27/25 20:30 DC Insulin Human Regular (humuLIN R 100 UNIT/ML 3ML) 25 unit TIDAC SQ 04/25/25 07:30 04/26/25 07:58 DC 04/25/25 17:39 25 UNIT Insulin Human Regular (humuLIN R 100 UNIT/ML 3ML) INSULIN SLIDING SCAL... ACHS SQ 04/22/25 21:00 04/24/25 16:16 DC 04/24/25 11:18 8 UNIT Insulin Human Regular (humuLIN R 100 UNIT/ML 3ML) INSULIN SLIDING SCAL... ACHS SQ 05/05/25 07:30 06/04/25 07:29 05/05/25 21:26 8 UNIT Insulin Human Regular (humuLIN R 100 UNIT/ML 3ML) INSULIN SLIDING SCAL... ACHS SQ 04/24/25 16:30 04/25/25 14:09 DC 04/25/25 11:57 16 UNIT Insulin Human Regular (humuLIN R 100 UNIT/ML 3ML) INSULIN SLIDING SCAL... ACHS SQ 04/25/25 16:30 05/04/25 23:42 DC 05/04/25 20:49 6 UNIT Insulin Human Regular (humuLIN R 100 UNIT/ML 3ML) INSULIN SLIDING SCAL... Q4H SQ 04/27/25 20:30 04/28/25 09:11 DC 04/28/25 06:00 4 UNIT Lactated Ringer's 1,000 ml @ 100 mls/hr Q10H IV 04/22/25 20:00 04/23/25 10:09 DC 04/23/25 06:00 100 MLS/HR Lactulose (Constulose 20gm/ 30ml Udcup) 30 gm TID PO 04/25/25 11:00 04/30/25 09:45 DC 04/30/25 09:16 30 GM Levothyroxine Sodium (SYNTHroid 125MCG TAB) 125 mcg DAILY@0630 PO 04/25/25 06:30 05/25/25 06:29 05/06/25 06:26 125 MCG Lisinopril (Prinivil 10mg) 10 mg DAILY PO 05/02/25 09:00 06/01/25 08:59 05/06/25 09:55 10 MG Magnesium Sulfate 50 ml @ 0 mls/hr PROTOCOL PRN IV OTHER [SEE ORDER COMMENTS] 04/22/25 20:00 05/22/25 19:59 Methylprednisolone Sodium Succinate (Solu-medROL 125MG) 125 mg Q6H IVP 04/23/25 08:00 04/28/25 09:10 DC 04/25/25 09:45 125 MG Metoprolol Succinate (TopROL XL) 50 mg AM PO 04/25/25 09:00 05/25/25 08:59 05/06/25 09:55 50 MG Ondansetron HCl (zoFRAN 4MG INJ) 4 mg Q6H PRN IV NAUSEA/VOMITING 04/22/25 20:00 05/22/25 19:59 04/22/25 20:10 4 MG Pantoprazole Sodium (PROTonix 40MG INJ) 40 mg DAILY IVP 04/24/25 10:00 05/24/25 09:59 05/06/25 09:54 40 MG Pharmacy Profile Note (Pharmacy Communication) 1 each ONCE MISC 05/01/25 08:00 04/30/25 16:52 DC Pharmacy Profile Note (Pharmacy Communication) 1 each ONCE MISC 05/03/25 12:00 05/03/25 12:58 DC Potassium Chloride 100 ml @ 100 mls/hr AD PRN IV POTASSIUM PROTOCOL 04/22/25 20:00 7/31/25 19:59 Potassium Chloride (K-Dur/Klor-Con 20meq) 20 meq AD PRN PO POTASSIUM PROTOCOL 04/22/25 20:00 05/22/25 19:59 05/03/25 13:10 20 MEQ Potassium Chloride (KCl 10% Elixir 20meq/15ml) 20 meq AD PRN PO POTASSIUM PROTOCOL 04/22/25 20:00 05/22/25 19:59 Pramipexole Dihydrochloride (miraPEX 0.25MG TAB) 0.5 mg HS PO 04/24/25 21:00 05/24/25 20:59 05/05/25 21:22 0.5 MG Pregabalin (LYRica 25MG) 25 mg BID PO 05/01/25 21:00 05/05/25 07:22 DC 05/04/25 09:22 25 MG Pregabalin ([id number]) 75 mg BID PO 04/24/25 21:00 04/24/25 14:49 DC Sodium Chloride 500 ml @ 0 mls/hr Q0M IV 04/25/25 11:00 05/25/25 10:59 Sodium Zirconium Cyclosilicate (Lokelma 10gm Powder) 10 gm TID PO 04/23/25 21:00 04/23/25 14:11 DC Tramadol HCl (UltRAM) 50 mg Q6H PRN PO MODERATE PAIN (4-6) 04/24/25 22:30 04/29/25 22:29 DC 04/28/25 13:55 50 MG Trimethoprim/ Sulfamethoxazole (BactRIM DS) 1 tab BID PO 04/25/25 21:00 04/26/25 14:50 DC 04/25/25 21:51 1 TAB Vancomycin HCl 250 ml @ 125 mls/hr Q12H IV 04/24/25 23:00 04/25/25 12:36 DC 04/25/25 11:43 125 MLS/HR Vancomycin HCl 250 ml @ 125 mls/hr Q12H IV 04/26/25 15:30 04/28/25 03:13 DC 04/27/25 15:22 125 MLS/HR Vancomycin HCl 250 ml @ 125 mls/hr Q12H IV 04/28/25 15:30 04/28/25 18:53 DC Vancomycin HCl 250 ml @ 125 mls/hr Q12H IV 04/28/25 20:00 05/02/25 20:34 DC 05/02/25 10:21 125 MLS/HR Vancomycin HCl 250 ml @ 125 mls/hr Q12H9 IV 05/04/25 21:00 05/14/25 20:59 05/06/25 09:52 125 MLS/HR Vancomycin HCl (Vancomycin Protocol) 1 each AD IV 04/24/25 10:30 04/25/25 12:36 DC Vancomycin HCl (Vancomycin Protocol) 1 each AD IV 04/26/25 15:00 05/10/25 14:59 Venlafaxine HCl (EffEXOR XR 37.5mg CAP) 37.5 mg DAILY PO 04/24/25 16:00 05/05/25 11:18 DC 05/04/25 09:21 37.5 MG Venlafaxine HCl (EffEXOR XR 37.5mg CAP) 37.5 mg DAILY PO 04/25/25 09:00 04/24/25 14:50 DC Venlafaxine HCl (EffEXOR XR 37.5mg CAP) 37.5 mg HS PO 05/05/25 21:00 06/04/25 20:59 05/05/25 21:22 37.5 MG Diagnostics / Radiology: [COPY/PASTE HERE IF NO REPORTS PLEASE DELETE SECTION] Assessment: Decompensated cirrhosis HTN Esophageal varies Plan: Patient with known cirrhosis however lost to follow-up. Hold off on EGD given no overt GI bleeding and stable hemoglobin We will monitor closely [employer] May 06, 2025 10:22
--- NOTE | 2025-05-06 14:44 | PN ---
[facility] PROGRESS NOTE Date of Service: May 06, 2025 Time of Service: 14:15 SUBJECTIVE: This is a 54-year-old female with past medical history of undiagnosed obstructive sleep apnea, diabetes type 2, hypertension, hyperlipidemia, hypothyroidism, restless leg syndrome, anxiety disorder,depression, lupus and severe morbid obesity who presents to the ED for complaints of severe low back pain which started 2 weeks ago and getting worse for the past 2 days and patient reports she is taking prednisone 30mg po daily for her Lupus she said.Patient also reports she was recently seen in this ED for similar complaints and was diagnosed with acute lumbosacral myofascial strain. and patient was given pain meds and discharged home and came again today due to pain intensity is so severe and intolerable.Patient also reports that her whole body hurts more on muscle pain she said.Patient also reports she has muscle pain on her chest and it reproducible on light palpation.Patient also states she vomited x 1 today .Patient denies any injury,trauma and fall.Patient also reports that she is on her monthly period today and it is her first day.patient also states that is her occupational health nurse and her last seen him last year and that she has insurance problem reason she was unable to keep her follow up. Urinalysis consistent with urinary tract infection. CT abdomen and pelvis result revealed no acute intra-abdominal or pelvic pathology cirrhotic liver morphology with splenomegaly, consistent with portal hypertension. Bilateral r enal cortical thickening may reflect renal parenchymal disease. While in the ER patient received Rocephin 1 g IV, 1 L NS bolus. We will admit patient for further medical management. 04/23/25 Patient was seen and examined at bedside. She was complaining of chest pain early in the morning but her EKG and troponin were normal. Patient says she got liver cirrhosis from taking Tylenol with codeine in the past for a long time. Remarkable labs are Na 129, K 6.4. Cl 98, BUN 44. Cr 1.2 with no anion gap. New EKG shows sinus rhythm with no tall T-waves or shortened QT interval. We will give her a dose of calcium gluconate and lokelma and recheck her labs. we will hold her iv fluids for now. Her urine anion gap is 36.0 mEq/l. Repeat potassium was 4.2 and 4.6. We will order CT lumbar spine and request nephro and cardio consults due to hyponatremia, RTA and cirrhosis with portal hypertension res pectively. We will order lupus, complement , anemia panel due to her abnormal labs and h/o SLE. Hematology recommended solu medrol 125 q6. she might need hydrochloroquine upon discharge for SLE 04/24/25 Patient was seen and examined at bedside. She is complaining of widespread generalized body pain with tender points and generalized weakness, her CPK is going up, we will repeat it and start her on pregabalin. Her labs are improving. She had an EGD done last year that showed grade III varices but lost to follow up with TDS. No GI intervention as her Hb is stable. Will start her on vancomycin. Her home meds have been reconciled. She takes venlaflaxine and pramipexole for depression and restless leg syndrome respectively. Her elevated urine anion gap could be due to BALTAZAR or NSAID induced kidney injury but her creatinine is improving. Pending abdominal ultrasound and CT lumbar spine result s. 04/25/25 Patient was seen and examined. She was observed sitting in a chair but was unable to answer questions appropriately and appeared confused. Ammonia level was elevated at 59; lactulose has been initiated at 30 mL TID. She is currently receiving vancomycin for MRSA identified in the urine. Right upper quadrant ultrasound demonstrated chronic hepatic changes with a hypoechoic lesion in the right lobe of the liver, possibly representing a complex cyst. CT of the lumbar spine revealed moderate lumbar spondylosis and diffuse osteopenia. Her platelet count is 37 and showing slow improvement. Dr. Urias, covering for Dr. Lorenzo, recommended holding solu-medrol for now. If platelet count declines tomorrow, steroids may need to be restarted. Ammonia and additional labs will be rechecked in the morning. 04/26/25 Patient was seen at bedside. Will request a transfer to the ICU due to worsening agitation and hypercapnic respiratory failure requiring BIPAP support.Will order Precedex drip for sedation to improve tolerance of non-invasive ventilation. Imaging studies including CT head and MRI spine have been ordered to evaluate for underlying neurologic causes. Patient remains hemodynamically stable; pulmonary consult is in place. She is growing gram positive cocci in clusters in her blood, will request ID input on antibiotics as she was on vancomycin previously and was started on bactrim for MRSA in urine. Her platelet count is 36 and solu-medrol is on hold. Ammonia improved from 59 to 12 04/27/25 Patient was evaluated at bedside. She was transferred to the ICU yesterday due to agitation and hypercapnia, requiring a Precedex drip as she was removing her nasal cannula. BiPAP was initiated to support ventilation, and she is now resting comfortably. CT brain was unremarkable with no acute findings. She has a free water deficit of approximately 1.4 liters, for which D5W will be administered. CRP has decreased from 83.5 to 56.4. However, platelets have dropped from 36 to 28, and hematology is closely monitoring her. The patient remains NPO. We wanted to start NG tube feeding but patient has h/o esophageal varices. We will await gastroenterologys recommendations, including possible EGD if indicated. 04/28/25 Patient was evaluated at bedside, she is bed bound not very responsive to questions. She is currently off BiPAP and precedex drip. Her agitation has improved and she is resting comfortably in bed. She has MRSA bacteremia and we will repeat blood cultures. She is currently on vancomycin. She has moderate right hydronephrosis which is increasing, we will request urology consult. Her sodium is trending upwards from 147 to 152 and she has a free water deficit of 2.4 L , we will increase D5 rate from 75 to 150mls/hr. CRP improving from 56.4 to 42.7. Platelets dropped from 28 to 21, we will follow Dr. Lorenzo's recommendations and his plan is give her IgG. She is not bleeding actively. 04/29/25 Patient was evaluated at bedside. She is alert, awake and oriented. She was minimally verbal yesterday but is now more interactive, expressing pain and discussing her medical history. She reports diffuse joint pain and is unable to lift her arms or legs due to significant discomfort. She has generalized joint tenderness and weak census clerk strength bilaterally. urologist Dr. Colin recommended nephrostomy tube on her right due to hydronephrosis. Her platelets improved to 44 without any intervention. She will be getting platelets for the procedure. She has infectious spondylodiscitis which could be the source of her bacteremia. We have requested transfer to [facility] but warehouse team leader said Dr. Sanchez has privileges at [facility] and will try to consult him. Her white count went up to 12.2, LFTs mildly going up. We will hold off on gabapentin for now. 04/30/25 Patient was evaluated at bedside. She is alert, awake and oriented. Her vitals are stable. She is interactive, expressing pain and discussing her medical history. She reports diffuse joint pain and is able to lift her arms or legs slightly due to pain and discomfort. Her active and passive range of motions are limited. She has generalized joint tenderness and weak census clerk strength bilaterally. She also passed stool more than 5 times yesterday could be due to lactulose which has been stopped from today. A Percutaneous fluroscopy-guided placement of an 8-F nephrostomy catheter was performed,the patient tolerated the procedure well. Neurosurgeon Dr. Sanchez saw the patient and came up with possible diagnosis of discitis and osteomyelitis at L2-L3 along with psoas inflammation. She has spondylolisthesis which is non- critical and can be managed medically for now. According to Dr. Lorenzo she will benefit from IVIg for 3 days on the background of possible ITP. Her current platelet is 41 and Hgb 9.6. Also, Endocrinology team adjusted Insulin regimen. We have requested cardiology consult for suspected endocarditis and will request RAMAN although she has thrombocytopenia and h/o esophageal varices. 05/01/25 Patient was evaluated at bedside. She is alert, awake and oriented. Her vitals are stable, except blood pressure which is 158/80. She reports diffuse joint pain and is able to lift her arms or legs slightly due to pain and discomfort. Her active and passive range of motions are limited. She has generalized joint tenderness and weak census clerk strength bilaterally. As per Dr. Lorenzo she will be started IVIG from today for 3 days. As per the Cardiology, she won't undergo RAMAN due thrombocytopenia, cirrhosis, varices. We will continue IV antibiotics and add low dose pregabalin for her pain. 05/02/25 Patient was evaluated at bedside. She is alert, awake and oriented. Her vitals are stable, except blood pressure which is 157/81. Labs showed WBC decreasing from 11.6 to 5.7, platelets from 44 to 32 and random glucose of 226. There has been marked decline in pain. We will continue IV antibiotics and she is receiving Immune globulin every 24 hr. Her Insulin dosage has been adjusted. Blood culture showed gram positive cocci in clusters, STAPHYLOCOCCUS AUREUS. Her prognosis remains guarded. Plan is to discharge her to [facility] for 6 weeks of IV antibiotics. 05/03/25 Patient was evaluated at bedside. She is alert, awake and oriented. Her vitals are stable,and her blood pressure which is 137/70. Labs showed WBC 7.8 , platelets from increasing from 32 to 44 and random glucose of 232. Her creatinine level is 1.2. There has been marked decline in pain and discomfort. We will continue IV antibiotics and she is receiving Immune globulin every 24 hr. Her last dose for Immune globulin is today. Her Insulin dosage has been adjusted. Blood culture showed gram positive cocci. Her prognosis remains guarded. She is on IV vancomycin. Plan is to discharge her to [facility] for 6 weeks of IV antibiotics. 05/04/25: The patient was evaluated at the bedside today. She had just finished showering and reported new-onset slurred speech, facial weakness and word- finding difficulty. She reports no weakness in the extremities. Blood cultures remain positive for gram-positive cocci, specifically MRSA. She is continuing on vancomycin, and gentamicin was initiated yesterday per Infectious Disease recommendations. She has completed a total of three IV IgG infusions. Platelet count is currently 31,000, decreased from 41,000 yesterday. Additionally, the patient has developed a groin rash with associated itching. Physical therapy noted that she was unable to ambulate today and experienced significant difficulty with mobility. We will continue to closely monitor her neurological status, platelet counts, and overall clinical response. Repeat blood cultures will be obtained at an appropriate interval following the initiation of gentamicin, per Infectious Disease guidance. Further assessment and management plan are outlined below. 05/05/25 The patient was evaluated at the bedside today. Her vitals are stable and comm unicated well. She complaints of pain in the neck and shoulder. She reports no weakness in the extremities. Blood cultures remain positive for gram-positive cocci, specifically MRSA. She is continuing on vancomycin, and gentamicin per Infectious Disease recommendations. Repeat blood cultures will be obtained at an appropriate interval following the initiation of gentamicin. She has completed a total of three IV IgG infusions. Platelet count is currently decreased [place] 31,000 [place] [address]. Her WBC is 6.8 and Hgb is 8.6. Her insulin medications has been adjusted by the endocrinology team. Additionally, the patient's groin rash with associated itching has been improving. She has been prescribed for Venlafaxine for management of depression and anxiety. Also Case management updated that they are in communication with [facility], Insurance approval is still pending; no authorization has been granted as of this time. Further assessment and management plan are outlined below. 05/06/25 The patient was evaluated at the bedside today. Her vitals are stable and communicated well. Her pain is gradually decreasing. She reports no weakness in the extremities. Blood cultures remain positive for gram-positive cocci, specifically MRSA. Blood culture has been sent today after 3 days of gentamicin. She is continuing on vancomycin, and gentamicin per Infectious Disease recommendations. . She has completed a total of three IV IgG infusions. Platelet count is currently decreased from 31,[address] As per Dr. Lorenzo, she has been planned for the transfusion of platelets today. Her WBC is 5.1, Hgb is 8.9, CRP 61.50 and whole blood glucose 233. In addition,PT is 17.2, INR 1.71, APTT 36.3 and Fibrinogen 119. Also, the Liver enzymes are elevated with total bilirubin of 1.6, AST 166, ALT 136 and ALP 358. Her Vancomycin trough level has increased from 5.0 to 18.1. Her insulin medications has been adjusted by the endocrinology team. Additionally, the patient's groin rash has been improving. As per Nephrology, the patient's renal function has actually greatly improved &the patient is being seen by case management in regards to placement at the [facility]. We will continue to follow the patient closely. REVIEW OF SYSTEMS CONSTITUTIONAL: No fever, chills, or night sweats. NEUROLOGICAL: Denies headache, sensory and motor deficit. CARDIOVASCULAR: Denies any exertional angina, dyspnea on exertion, orthopnea, paroxysmal nocturnal dyspnea, palpitations. PULMONARY: Denies any shortness of breath, cough, phlegm/sputum, hemoptysis, pl euritic chest pain. GASTROINTESTINAL: Denies nausea, vomiting, abdominal pain. GENITOURINARY: Denies frequency, urgency, nocturia, hematuria or incontinence. PHYSICAL EXAM GENERAL APPEARANCE: The patient is alert, awake and oriented and bedbound NEUROLOGICAL: No sensory and motor deficits. CHEST: Normal chest expansion. LUNGS: Absence of any rales, rhonchi or any wheezing. CARDIOVASCULAR: Regular. S1 and S2 normal. No appreciable rubs, murmurs or gallops. ABDOMEN: Soft nontender, and nondistended. There is no rebound, voluntary guarding, or rigidity. GENITOURINARY: S/P day 5, Nephrostomy tube on the right side Vital Signs (last 8hr) Date Time Temp Pulse Resp B/P (MAP) Pulse Ox O2 Delivery O2 Flow Rate FiO2 05/06/25 11:45 98.1 65 21 138/51 96 Room Air 21 05/06/25 08:00 98.1 60 21 141/54 93 Room Air 21 LABS: Laboratory: Test 05/06/25 13:25 05/06/25 11:05 05/06/25 07:40 05/06/25 05:23 Range/Units Gentamicin Level Trough 0.3 0.0-2.0 mcg/mL Whole Blood Glucose 233 H 70-110 MG/DL Bedside Glucose Comment Notified Nurse Vancomycin Level Trough 18.1 # 10.0-20.0 UG/ML White Blood Count 5.1 4.8-10.8 K/uL Red Blood Count 3.42 L 4.00-5.50 MIL/uL Hemoglobin 8.9 L 12.0-16.0 g/dL Hematocrit 27.8 L 36-48 % Mean Corpuscular Volume 81.3 79-99 fL Mean Corpuscular Hemoglobin 26.0 L 27.0-33.0 pg Mean Corpuscular Hemoglobin Concent 32.0 32.0-36.0 g/dL Red Cell Distribution Width 23.4 H 11.0-15.5 % Platelet Count 18 #L 130-400 K/uL Mean Platelet Volume 7.5-10.5 fL Immature Granulocyte % (Auto) 0.6 0-1 % Neutrophils (%) (Auto) 87.2 H 40.0-77.0 % Lymphocytes (%) (Auto) 6.7 L 21.0-51.0 % Monocytes (%) (Auto) 5.5 3.0-13.0 % Eosinophils (%) (Auto) 0.0 0.0-8.0 % Basophils (%) (Auto) 0.0 0.0-5.0 % Neutrophils # (Auto) 4.5 1.8-7.7 K/uL Lymphocytes # (Auto) 0.3 L 1.0-4.8 K/uL Monocytes # (Auto) 0.3 0.1-1.0 K/uL Eosinophils # (Auto) 0.00 0.00-0.70 K/uL Basophils # (Auto) 0.00 0.00-0.20 K/uL Absolute Immature Granulocyte (auto 0.03 0-1 K/uL Nucleated Red Blood Cells 0.0 0.0-0.19 % Sodium Level 136 136-145 mmol/L Potassium Level 4.4 3.5-5.1 mmol/L Chloride Level 105 101-111 mmol/L Carbon Dioxide Level 28 21-32 mmol/L Blood Urea Nitrogen 33 H 7-18 mg/dL Creatinine 1.2 H 0.5-1.0 mg/dL Glomerular Filtration Rate Calc 53 >90 mL/min Random Glucose 188 H 70-105 mg/dL Total Calcium 7.9 L 8.5-10.1 mg/dL Total Bilirubin 1.6 H 0.2-1.0 mg/dL Aspartate Amino Transf (AST/SGOT) 166 H 10-37 U/L Alanine Aminotransferase (ALT/SGPT) 136 H 12-78 U/L Alkaline Phosphatase 358 H 50-136 U/L C-Reactive Protein, Quantitative 61.50 H 0.5-3.0 mg/L Total Protein 7.6 6.0-8.3 g/dL Albumin 1.4 L 3.5-5.0 g/dL Test 05/05/25 04:55 Range/Units Prothrombin Time 17.2 H 9.6-11.6 SEC Prothromb Time International Ratio 1.71 H 0.85-1.15 Activated Partial Thromboplast Time 36.3 H 26.3-35.5 SEC Fibrinogen 119 L 180-350 mg/dL Current Medications Medications (Trade) Dose Ordered Sig/Roberth Route PRN Reason Start Time Stop Time Status Last Admin Dose Admin Acetaminophen (TYLenol 325MG TAB) 650 mg Q4H PRN PO MILD PAIN (1-3) 04/22/25 20:00 05/22/25 19:59 04/30/25 06:17 650 MG Acetaminophen (TYLenol 325MG TAB) 650 mg Q6H PRN PO TEMPERATURE GREATER THAN 101.5 04/22/25 20:00 05/22/25 19:59 04/23/25 10:02 650 MG Acetaminophen/ Hydrocodone Bitart (NORco 5/325MG) 1 tab Q4H PRN PO MODERATE PAIN (4-6) 04/30/25 12:00 05/05/25 11:59 DC 04/30/25 22:07 1 TAB Atorvastatin Calcium (LIPItor 20MG) 20 mg HS PO 04/24/25 21:00 05/24/25 20:59 05/05/25 21:22 20 MG Ceftriaxone Sodium 1 gm/ Sodium Chloride 50 ml @ 100 mls/hr BID IV 04/22/25 21:00 04/22/25 19:59 DC Ceftriaxone Sodium (ROCEphine 1G INJ) 1 gm BID IVPB 04/22/25 21:00 04/22/25 20:44 DC Ceftriaxone Sodium (ROCEphine 1G INJ) 1 gm BID IVPB 04/23/25 09:00 04/25/25 12:36 DC 04/25/25 09:44 1 GM Dexamethasone Sodium Phosphate (dexaMETHasone 4MG/ML 1ML VIAL) 20 mg ONCALL IV 05/01/25 15:30 05/03/25 15:31 DC 05/02/25 15:41 20 MG Dexamethasone Sodium Phosphate (dexaMETHasone 4MG/ML 1ML VIAL) 20 mg ONCALL IV 05/03/25 17:15 05/03/25 17:16 DC 05/03/25 17:23 20 MG Dexamethasone Sodium Phosphate (dexaMETHasone 4MG/ML 1ML VIAL) 20 mg ONCE PRN IV PRE-MED 05/01/25 15:00 05/01/25 15:05 DC Dexmedetomidine/ Sodium Chloride (PRECEdex 200MCG/ 50ML-NS) 200 mcg PROTOCOL IV 04/26/25 12:00 04/26/25 14:54 DC Dexmedetomidine/ Sodium Chloride (PRECEdex 400MCG/ 100ML-NS) 400 mcg PROTOCOL PRN IV ANXIETY/AGITATION 04/26/25 19:30 05/01/25 12:45 DC 04/27/25 23:31 400 MCG Dexmedetomidine/ Sodium Chloride (PRECEdex 400MCG/ 100ML-NS) 400 mcg PROTOCOL STAT IV 04/26/25 14:53 04/26/25 14:58 DC 04/26/25 15:18 400 MCG Dextrose 1,000 ml @ 75 mls/hr [id number] IV 04/26/25 12:00 04/30/25 09:36 DC 04/29/25 04:27 150 MLS/HR Dextrose (D50w) 50 ml AD PRN IV HYPOGLYCEMIA PROTOCOL 04/22/25 20:00 05/22/25 19:59 Diphenhydramine HCl (BENAdryl INJ) 25 mg ONCALL IVP 05/01/25 15:30 05/03/25 15:31 DC 05/02/25 15:41 25 MG Diphenhydramine HCl (BENAdryl INJ) 25 mg ONCALL IVP 05/03/25 17:15 05/03/25 17:16 DC 05/03/25 17:22 25 MG Diphenhydramine HCl (BENAdryl INJ) 25 mg ONCE PRN IVP PRE-MED 05/01/25 15:00 05/01/25 15:06 DC Famotidine (Pepcid 20mg Tab) 20 mg DAILY PO 04/23/25 09:00 04/24/25 09:48 DC 04/23/25 09:33 20 MG Gabapentin (NEURontin 300 MG CAP) 300 mg BID PO 04/24/25 21:00 04/28/25 09:10 DC 04/25/25 21:51 300 MG Gentamicin Sulfate/Sodium Chloride 100 ml @ 200 mls/hr Q24H IV 05/03/25 14:00 05/13/25 13:59 05/05/25 15:08 200 MLS/HR Glucagon (Glucagon 1mg Kit) 1 mg AD PRN IM HYPOGLYCEMIA PROTOCOL 04/22/25 20:00 05/22/25 19:59 Heparin Sodium (Porcine) (HEParin 5,000 UNIT VIAL) 5,000 unit Q8H SQ 04/25/25 09:00 04/25/25 08:40 DC Hydromorphone HCl (DiLAUDid 0.5MG INJ) 0.5 mg BIDPRN PRN IVP SEVERE PAIN (7-10) 04/25/25 19:00 04/30/25 11:59 DC 04/29/25 23:31 0.5 MG Hydromorphone HCl (DiLAUDid 0.5MG INJ) 0.5 mg Q6H PRN IVP SEVERE PAIN (7-10) 04/23/25 14:00 04/25/25 08:25 DC 04/25/25 04:14 0.5 MG Hydromorphone HCl (DiLAUDid 1MG INJ) 1 mg TID PRN IVP SEVERE PAIN (7-10) 05/01/25 19:00 05/05/25 12:59 DC Hydromorphone HCl (DiLAUDid 1MG INJ) 1 mg TIDP PRN IVP SEVERE PAIN (7-10) 04/30/25 13:00 05/01/25 18:46 DC 04/30/25 20:44 1 MG Immune Globulin 400 ml @ 0 mls/hr Q24H IV 05/01/25 14:00 05/02/25 12:38 DC 05/01/25 16:18 37.5 MLS/HR Immune Globulin 400 ml @ 0 mls/hr Q24H IV 05/02/25 16:00 05/03/25 16:01 DC 05/02/25 16:46 37.5 MLS/HR Immune Globulin 400 ml @ 0 mls/hr Q24H IV 05/03/25 17:15 05/03/25 17:16 DC 05/03/25 17:57 37.5 MLS/HR Insulin Glargine (LANtus 100 UNITS/ML 10 ML VIAL) 10 units HS SQ 04/24/25 21:00 04/24/25 16:57 DC Insulin Glargine (LANtus 100 UNITS/ML 10 ML VIAL) 10 units ONCE STAT SQ 04/24/25 10:54 04/24/25 11:00 DC 04/24/25 11:19 10 UNITS Insulin Glargine (LANtus 100 UNITS/ML 10 ML VIAL) 15 units HS SQ 04/24/25 21:00 04/24/25 17:06 DC Insulin Glargine (LANtus 100 UNITS/ML 10 ML VIAL) 30 units DAILY SQ 05/05/25 09:00 06/04/25 08:59 05/06/25 10:09 30 UNITS Insulin Glargine (LANtus 100 UNITS/ML 10 ML VIAL) 30 units ONCE SQ 04/24/25 17:00 04/25/25 06:19 DC 04/24/25 18:16 30 UNITS Insulin Glargine (LANtus 100 UNITS/ML 10 ML VIAL) 40 units DAILY SQ 04/29/25 09:00 04/30/25 07:31 DC Insulin Glargine (LANtus 100 UNITS/ML 10 ML VIAL) 50 units DAILY SQ 04/26/25 09:00 04/29/25 06:49 DC 04/28/25 08:46 50 UNITS Insulin Glargine (LANtus 100 UNITS/ML 10 ML VIAL) 50 units DAILY SQ 04/30/25 09:00 05/05/25 07:21 DC 05/04/25 09:30 50 UNITS Insulin Human Regular (humuLIN R 100 UNIT/ML 3ML) 5 unit TIDAC SQ 04/24/25 17:00 04/24/25 17:06 DC Insulin Human Regular (humuLIN R 100 UNIT/ML 3ML) 8 unit TIDAC SQ 04/28/25 07:30 04/30/25 07:31 DC 04/30/25 06:15 8 UNIT Insulin Human Regular (humuLIN R 100 UNIT/ML 3ML) 10 unit TIDAC SQ 05/06/25 07:30 06/05/25 07:29 Insulin Human Regular (humuLIN R 100 UNIT/ML 3ML) 10 unit TIDAC SQ 04/24/25 17:00 04/25/25 06:17 DC 04/25/25 06:15 10 UNIT Insulin Human Regular (humuLIN R 100 UNIT/ML 3ML) 12 unit TIDAC SQ 05/05/25 07:30 05/05/25 22:51 DC Insulin Human Regular (humuLIN R 100 UNIT/ML 3ML) 12 unit TIDAC SQ 04/30/25 07:30 05/02/25 08:05 DC 05/02/25 06:45 12 UNIT Insulin Human Regular (humuLIN R 100 UNIT/ML 3ML) 15 unit TIDAC SQ 05/02/25 11:30 05/05/25 07:21 DC 05/04/25 17:33 15 UNIT Insulin Human Regular (humuLIN R 100 UNIT/ML 3ML) 15 unit TIDAC SQ 04/26/25 11:30 04/27/25 20:30 DC Insulin Human Regular (humuLIN R 100 UNIT/ML 3ML) 25 unit TIDAC SQ 04/25/25 07:30 04/26/25 07:58 DC 04/25/25 17:39 25 UNIT Insulin Human Regular (humuLIN R 100 UNIT/ML 3ML) INSULIN SLIDING SCAL... ACHS SQ 04/22/25 21:00 04/24/25 16:16 DC 04/24/25 11:18 8 UNIT Insulin Human Regular (humuLIN R 100 UNIT/ML 3ML) INSULIN SLIDING SCAL... ACHS SQ 05/05/25 07:30 06/04/25 07:29 05/05/25 21:26 8 UNIT Insulin Human Regular (humuLIN R 100 UNIT/ML 3ML) INSULIN SLIDING SCAL... ACHS SQ 04/24/25 16:30 04/25/25 14:09 DC 04/25/25 11:57 16 UNIT Insulin Human Regular (humuLIN R 100 UNIT/ML 3ML) INSULIN SLIDING SCAL... ACHS SQ 04/25/25 16:30 05/04/25 23:42 DC 05/04/25 20:49 6 UNIT Insulin Human Regular (humuLIN R 100 UNIT/ML 3ML) INSULIN SLIDING SCAL... Q4H SQ 04/27/25 20:30 04/28/25 09:11 DC 04/28/25 06:00 4 UNIT Lactated Ringer's 1,000 ml @ 100 mls/hr Q10H IV 04/22/25 20:00 04/23/25 10:09 DC 04/23/25 06:00 100 MLS/HR Lactulose (Constulose 20gm/ 30ml Udcup) 30 gm TID PO 04/25/25 11:00 04/30/25 09:45 DC 04/30/25 09:16 30 GM Levothyroxine Sodium (SYNTHroid 125MCG TAB) 125 mcg DAILY@0630 PO 04/25/25 06:30 05/25/25 06:29 05/06/25 06:26 125 MCG Lisinopril (Prinivil 10mg) 10 mg DAILY PO 05/02/25 09:00 06/01/25 08:59 05/06/25 09:55 10 MG Magnesium Sulfate 50 ml @ 0 mls/hr PROTOCOL PRN IV OTHER [SEE ORDER COMMENTS] 04/22/25 20:00 05/22/25 19:59 Methylprednisolone Sodium Succinate (Solu-medROL 125MG) 125 mg Q6H IVP 04/23/25 08:00 04/28/25 09:10 DC 04/25/25 09:45 125 MG Metoprolol Succinate (TopROL XL) 50 mg AM PO 04/25/25 09:00 05/25/25 08:59 05/06/25 09:55 50 MG Ondansetron HCl (zoFRAN 4MG INJ) 4 mg Q6H PRN IV NAUSEA/VOMITING 04/22/25 20:00 05/22/25 19:59 04/22/25 20:10 4 MG Pantoprazole Sodium (PROTonix 40MG INJ) 40 mg DAILY IVP 04/24/25 10:00 05/24/25 09:59 05/06/25 09:54 40 MG Pharmacy Profile Note (Pharmacy Communication) 1 each ONCE MISC 05/01/25 08:00 04/30/25 16:52 DC Pharmacy Profile Note (Pharmacy Communication) 1 each ONCE MISC 05/03/25 12:00 05/03/25 12:58 DC Potassium Chloride 100 ml @ 100 mls/hr AD PRN IV POTASSIUM PROTOCOL 04/22/25 20:00 05/22/25 19:59 Potassium Chloride (K-Dur/Klor-Con 20meq) 20 meq AD PRN PO POTASSIUM PROTOCOL 04/22/25 20:00 05/22/25 19:59 05/03/25 13:10 20 MEQ Potassium Chloride (KCl 10% Elixir 20meq/15ml) 20 meq AD PRN PO POTASSIUM PROTOCOL 04/22/25 20:00 05/22/25 19:59 Pramipexole Dihydrochloride (miraPEX 0.25MG TAB) 0.5 mg HS PO 04/24/25 21:00 05/24/25 20:59 05/05/25 21:22 0.5 MG Pregabalin (LYRica 25MG) 25 mg BID PO 05/01/25 21:00 05/05/25 07:22 DC 05/04/25 09:22 25 MG Pregabalin ([id number]) 75 mg BID PO 04/24/25 21:00 04/24/25 14:49 DC Sodium Chloride 500 ml @ 0 mls/hr Q0M IV 04/25/25 11:00 05/25/25 10:59 Sodium Zirconium Cyclosilicate (Lokelma 10gm Powder) 10 gm TID PO 04/23/25 21:00 04/23/25 14:11 DC Tramadol HCl (UltRAM) 50 mg Q6H PRN PO MODERATE PAIN (4-6) 04/24/25 22:30 04/29/25 22:29 DC 04/28/25 13:55 50 MG Trimethoprim/ Sulfamethoxazole (BactRIM DS) 1 tab BID PO 04/25/25 21:00 04/26/25 14:50 DC 04/25/25 21:51 1 TAB Vancomycin HCl 250 ml @ 125 mls/hr Q12H IV 04/24/25 23:00 04/25/25 12:36 DC 04/25/25 11:43 125 MLS/HR Vancomycin HCl 250 ml @ 125 mls/hr Q12H IV 04/26/25 15:30 04/28/25 03:13 DC 04/27/25 15:22 125 MLS/HR Vancomycin HCl 250 ml @ 125 mls/hr Q12H IV 04/28/25 15:30 04/28/25 18:53 DC Vancomycin HCl 250 ml @ 125 mls/hr Q12H IV 04/28/25 20:00 05/02/25 20:34 DC 05/02/25 10:21 125 MLS/HR Vancomycin HCl 250 ml @ 125 mls/hr Q12H9 IV 05/04/25 21:00 05/14/25 20:59 05/06/25 09:52 125 MLS/HR Vancomycin HCl (Vancomycin Protocol) 1 each AD IV 04/24/25 10:30 04/25/25 12:36 DC Vancomycin HCl (Vancomycin Protocol) 1 each AD IV 04/26/25 15:00 05/10/25 14:59 Venlafaxine HCl (EffEXOR XR 37.5mg CAP) 37.5 mg DAILY PO 04/24/25 16:00 05/05/25 11:18 DC 05/04/25 09:21 37.5 MG Venlafaxine HCl (EffEXOR XR 37.5mg CAP) 37.5 mg DAILY PO 04/25/25 09:00 04/24/25 14:50 DC Venlafaxine HCl (EffEXOR XR 37.5mg CAP) 37.5 mg HS PO 05/05/25 21:00 06/04/25 20:59 05/05/25 21:22 37.5 MG DIAGNOSTICS / RADIOLOGY: [ ] 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 Suspected Endocarditis, RAMAN deferred due to bleeding risks; unable to rule out endocarditis Status post nephrostomy tube Renate intertrigo Infectious spondylodiscitis L2-L3 Sepsis, unable to determine POA Acute hypoxic hypercapnic respiratory failure, not POA, resolved AMS due to suspected steroid induced psychosis or hepatic encephalopathy, not POA, resolved Hyperammonemia due to cirrhosis, resolved Intractable low back pain due to spinal stenosis POA Acute urinary tract infection due to MRSA POA Hypervolemic hyponatremia POA Chronic anemia POA Hyponatremia POA Acute kidney injury on renal insufficiency POA Hyperglycemia due to uncontrolled diabetes POA Hypocalcemia POA Cirrhotic liver with splenomegaly consistent with portal hypertension per CT POA Esophageal varices Renal parenchymal disease per CT POA Hypothyroidism POA Hyperlipidemia POA Hypertension POA Anxiety disorder POA Depression POA Restless leg syndrome POA Suspected obstructive sleep apnea untreated POA Morbid obesity POA PLAN: Persistent MRSA bacteremia Osteomyelitis of L2-L3 POA Blood cultures remain positive for gram-positive cocci consistent with MRSA. Blood cultures sent after 3 days of gentamicin. Currently receiving vancomycin (Day 11) and gentamicin (Day 4) per Infectious Disease (ID) recommendations. Vancomycin trough level has increased from 5.0 to 18.1. Monitor vancomycin trough level Maintain contact precautions for infection control. Repeat blood cultures per Infectious Disease protocol to monitor clearance of bacteremia. Patient will require a 6-week course of IV antibiotics; case management will assist with arranging appropriate placement for long-term IV therapy. Thrombocytopenia due to ITP As per Dr. Lorenzo, she has been planned for the transfusion of platelets to day. PT is 17.2, INR 1.71, APTT 36.3 and Fibrinogen 119. D-dimer has been sent. Continue to follow Hematology recommendations for ongoing management of thrombocytopenia. Monitor platelet counts daily. Monitor for bleeding or thrombotic complications. Altered Mental Status due to Hepatic Encephalopathy or steroids induced psychosis, resolved Monitor ammonia levels, mental status, and signs of worsening encephalopathy. Monitor neuro status and reassess mental status regularly with steroid adjustments. Intractable lower back pain Per Dr. Sanchez, possible diagnosis of discitis and osteomyelitis at L2-L3 along with psoas inflammation. Continue multimodal pain management: acetaminophen, topical agents Pregabalin will be discontinued due to concern for possible medication-induced slurred speech. CT head showed no evidence of acute intracranial abnormalities. Neuro checks q4 Acute UTI Monitor for signs of urosepsis Encourage hydration and bladder care Hyponatremia, resolved Monitor serum Na closely; consider fluid restriction if dilutional. Renate intertrigo The patient was given fluconazole 150 mg 1 dose today, gradually resolving Cirrhosis with portal hypertension Liver enzymes are elevated with total bilirubin of 1.6, AST 166, ALT 136 and ALP 358. Monitor for decompensation: encephalopathy, ascites, variceal bleeding. Consider beta sergio for variceal prophylaxis. Monitor LFTs, INR, and ammonia Her MELD- Na score is 24 points, 14-15% estimated 90 day mortality Hyperglycemia (Uncontrolled Diabetes) Decrease Lantus to 30 units daily as per endocrinology recommendations, and continue for regular insulin 12 units qac before meals. Decrease high dose SSI to medium dose SSI Monitor blood glucose QID Educate on diet and insulin compliance; monitor for DKA if concern. Correct electrolytes accordingly. Chronic anemia H/o esophageal varices due to cirrhosis with portal hypertension Per GI, hold off on EGD given no overt GI bleeding and stable hemoglobin Monitor trends, H&H daily Avoid transfusion unless symptomatic or Hgb <7. We will order morning labs. Further orders per hospitalization course. ATTESTATION BY PHYSICIAN I have seen and examined the patient. I reviewed the documentation, medical decision making, and treatment plan as noted by the resident provider above. I agree with the findings and plan of care. Curtis Sanchez MD, SUZIT MD May 06, 2025 14:44
--- NOTE | 2025-05-06 18:10 | PN ---
[facility] PROGRESS NOTE Date Patient Seen: May 06, 2025 Time of Visit: 1322 Supervising Physician: Dr. Parish PROBLEM LIST: MRSA bacteremia, POA, persistent Acute hypoxic hypercarbic respiratory failure on venous blood draw on 04/26/2025, resolved Encephalopathy due to suspected steroid induced psychosis or hepatic encephalopathy, not POA, resolved Infectious spondylodiscitis at the L and L3 intervertebral disc Intractable low back pain due to spinal stenosis, POA Moderate right hydronephrosis US 04/24/25 w/ urinary bladder retention S/P FC S/P Right nephrostomy tube on 04/30/2025 Hyperammonemia due to cirrhosis 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, POA S/P IGG infusions on 04/30/2025 Acute urinary tract infection due to complicated cystitis 2/2 MRSA POA Hypervolemic hyponatremia, POA Chronic anemia, POA Hyponatremia, POA Acute kidney injury on renal insufficiency POA Hyperglycemia due to uncontrolled diabetes POA Hypocalcemia POA Cirrhotic liver with splenomegaly consistent with portal hypertension per CT POA Liver Lesion lesion that measures 1.3 x 1.1 x 1.7 cm in the right lobe on US Esophageal varices Renal parenchymal disease per CT, POA Hypothyroidism Hyperlipidemia Hypertension Anxiety disorder Depression Restless leg syndrome Suspected OHS Morbid obesity, BMI 47.5 INTERVAL HISTORY: Patient assessed at bedside. AAOX3. Currently on room air. States she feels better overall. Denies any pain at this time. Third set of blood cultures positive for MRSA, continues on Vancomycin and Gentamicin. at bedside. No RAMAN per cardiology due to high risk. No overnight issues per nursing. Pending acceptance at [facility]. 05/06 patient was seen and examined at bedside with family present. Patient is awake alert able to answer simple questions appropriately. Patient denies any chest pain or shortness of breadth. Denies any nausea vomiting or abdominal pain. Patient to continue on vancomycin per pharmacy dosing. We will follow up with repeat blood cultures. As per Cardiology no patient is high risk for RAMAN therefore we will not proceed with procedure. Patient currently pending LT[facility]. From a pulmonary standpoint patient has remained stable. Therefore pulmonology to sign off feel free to reconsult with any change in condition thank you for allowing us to participate in the care of this patient Plan summary Pulmonology to sign off thank you for allowing us to participate in the care of this patient feel free to reconsult with any change in condition Continue IV antibiotics Continue follow recommendations of Cardiology No RAMAN as per Cardiology due to high risk REVIEW OF SYSTEMS: Twelve point review of system reviewed with patient all permanent positives mentioned above otherwise negative PHYSICAL EXAM: GENERAL: Patient is awake alert and oriented x3. Cooperative and calm. HEENT: EOMI, Sclera non icteric, moist mucosa NECK: Supple, no JVD, trachea midline LUNGS: Clear breath sounds bilaterally. No wheezes HEART: Regular rate and rhythm. Normal S1 and S2, without murmurs ABD: Abdomen soft, nontender. Bowel sounds present EXT: No clubbing cyanosis or edema NEURO: AAOX3, follows commands Vital Signs (last 8hr) Date Time Temp Pulse Resp B/P (MAP) Pulse Ox O2 Delivery O2 Flow Rate FiO2 05/06/25 16:00 97.9 65 21 130/45 94 Room Air 21 05/06/25 11:45 98.1 65 21 138/51 96 Room Air 21 LABS: Hematology Labs: Test 05/06/25 05:23 Range/Units White Blood Count 5.1 4.8-10.8 K/uL Red Blood Count 3.42 L 4.00-5.50 MIL/uL Hemoglobin 8.9 L 12.0-16.0 g/dL Hematocrit 27.8 L 36-48 % Mean Corpuscular Volume 81.3 79-99 fL Mean Corpuscular Hemoglobin 26.0 L 27.0-33.0 pg Mean Corpuscular Hemoglobin Concent 32.0 32.0-36.0 g/dL Red Cell Distribution Width 23.4 H 11.0-15.5 % Platelet Count 18 #L 130-400 K/uL Mean Platelet Volume 7.5-10.5 fL Immature Granulocyte % (Auto) 0.6 0-1 % Neutrophils (%) (Auto) 87.2 H 40.0-77.0 % Lymphocytes (%) (Auto) 6.7 L 21.0-51.0 % Monocytes (%) (Auto) 5.5 3.0-13.0 % Eosinophils (%) (Auto) 0.0 0.0-8.0 % Basophils (%) (Auto) 0.0 0.0-5.0 % Neutrophils # (Auto) 4.5 1.8-7.7 K/uL Lymphocytes # (Auto) 0.3 L 1.0-4.8 K/uL Monocytes # (Auto) 0.3 0.1-1.0 K/uL Eosinophils # (Auto) 0.00 0.00-0.70 K/uL Basophils # (Auto) 0.00 0.00-0.20 K/uL Absolute Immature Granulocyte (auto 0.03 0-1 K/uL Nucleated Red Blood Cells 0.0 0.0-0.19 % Chemistry Labs: Test 05/06/25 15:45 05/06/25 05:23 Range/Units Whole Blood Glucose 230 H 70-110 MG/DL Bedside Glucose Comment Notified Nurse Sodium Level 136 136-145 mmol/L Potassium Level 4.4 3.5-5.1 mmol/L Chloride Level 105 101-111 mmol/L Carbon Dioxide Level 28 21-32 mmol/L Blood Urea Nitrogen 33 H 7-18 mg/dL Creatinine 1.2 H 0.5-1.0 mg/dL Glomerular Filtration Rate Calc 53 >90 mL/min Random Glucose 188 H 70-105 mg/dL Total Calcium 7.9 L 8.5-10.1 mg/dL Total Bilirubin 1.6 H 0.2-1.0 mg/dL Aspartate Amino Transf (AST/SGOT) 166 H 10-37 U/L Alanine Aminotransferase (ALT/SGPT) 136 H 12-78 U/L Alkaline Phosphatase 358 H 50-136 U/L C-Reactive Protein, Quantitative 61.50 H 0.5-3.0 mg/L Total Protein 7.6 6.0-8.3 g/dL Albumin 1.4 L 3.5-5.0 g/dL Coagulation Labs: Test 05/05/25 04:55 Range/Units Prothrombin Time 17.2 H 9.6-11.6 SEC Prothromb Time International Ratio 1.71 H 0.85-1.15 Activated Partial Thromboplast Time 36.3 H 26.3-35.5 SEC Fibrinogen 119 L 180-350 mg/dL DIAGNOSTICS / RADIOLOGY RESULTS: na PLAN Pulmonology to sign off feel free to reconsult with any change in condition thank you for allowing us to participate in the care of this patient Per cardiology not a candidate for transesophageal echocardiogram due to thrombocytopenia, cirrhosis with esophageal varices, and overall bleeding risk. BIPAP PRN Monitor hemodynamics Monitor for fevers Continue vancomycin per ID Vancomycin and Gentamicin [facility] NEURO: Minimize central acting medications as possible. Maintain fall precautions, adequate lighting during the day PULMONARY: Supplemental 02 as needed. Maintain aspiration precautions at all times CARDIOVASCULAR: Follow hemodynamics. Vital signs per facility protocol GI & NUTRITION: Continue with nutritional support. Continue stool softeners and laxatives as needed. KIDNEYS & ELECTROLYTES: Strict monitoring of intake, output and overall fluid balance. Avoid nephrotoxic medications to the extent possible. Medications to be dosed according to renal function. Monitor electrolytes and replace as needed ENDOCRINE: Maintain blood glucose between 100-180 at all times. Hypoglycemia protocol in place INFECTIOUS DISEASE: Trend temperature, WBC and procalcitonin level Follow cultures, deescalate antibiotics as soon as possible. Panculture if new onset fever ONCOLOGY/HEMATOLOGY/COAGULATION: Monitor for s/s of bleeding Monitor hemoglobin, coagulation studies as needed SKIN: Pressure ulcer prevention per facility protocol Specialty mattress ORTHO/REHAB: Continue PT/OT Prophylaxis: Continue GI and DVT prophylaxis Code Status: Full Resuscitation Disposition: per primary team Case discussed with supervising physician plan of care agreed upon AYUSH REED ENVIRONMENTAL ANALYST May 06, 2025 18:10
--- NOTE | 2025-05-06 18:45 | PN ---
INFECTIOUS DISEASE PROGRESS NOTE Date of Service: May 06, 2025 SUBJECTIVE: Patient was seen and examined at bedside in room 314. Patient is awake, alert and oriented x3. Platelets level today is 18 and 1 unit of platelets will be transfused today if approved by remote sensing technologist. No fever, temperature is 98.1 and the WBC is 5.1. Continues on Vancomycin and gentamicin. Blood cultures was repeated today we will follow up on the results. PHYSICAL EXAM EYES: Anicteric. Pupils equal and reactive. HENT: No oral thrush seen, moist Oral mucosa NECK: Supple, no JVD or thyromegaly. LUNGS: Good air entry. No rales, no rhonchi. Diminished breath sounds. Oxygen support as needed. CARDIOVASCULAR: S1, S2 regular. No murmur heard. ABDOMEN: Soft, non tender, bowel sounds present, no organomegaly. SKIN: No rashes, no swelling. LYMPHATICS: No peripheral lymphadenopathy MUSCULOSKELETAL: No joint swelling, erythema or tenderness. EXTREMITIES: No cyanosis or clubbing BACK: No deformity, no pressure ulcer. Right nephrostomy tube. GENITOURINARY: No dysuria or hematuria, Nolasco catheter. Vital Sign (Last 12 Hours) 05/06/25 05/06/25 05/06/25 08:00 11:45 16:00 Temp 98.1 98.1 97.9 Pulse 60 65 65 Resp 21 21 21 B/P (MAP) 141/54 138/51 130/45 Pulse Ox 93 96 94 O2 Delivery Room Air Room Air Room Air FiO2 21 21 21 Intake & Output (last 24hrs) 05/05/25 05/05/25 05/06/25 15:00 23:00 07:00 Intake Total 250.0 ml Output Total 300 ml 820 ml 1300 ml Balance -300 ml -570.0 ml -1300 ml LABS: Laboratory: Test 05/06/25 15:45 05/06/25 15:00 05/06/25 13:25 05/06/25 07:40 Range/Units Whole Blood Glucose 230 H 70-110 MG/DL Bedside Glucose Comment Notified Nurse Gentamicin Level Peak 0.2 L 4.0-8.0 mcg/mL Gentamicin Level Trough 0.3 0.0-2.0 mcg/mL Vancomycin Level Trough 18.1 # 10.0-20.0 UG/ML Test 05/06/25 05:05/05/25 04:55 Range/Units White Blood Count 5.1 4.8-10.8 K/uL Red Blood Count 3.42 L 4.00-5.50 MIL/uL Hemoglobin 8.9 L 12.0-16.0 g/dL Hematocrit 27.8 L 36-48 % Mean Corpuscular Volume 81.3 79-99 fL Mean Corpuscular Hemoglobin 26.0 L 27.0-33.0 pg Mean Corpuscular Hemoglobin Concent 32.0 32.0-36.0 g/dL Red Cell Distribution Width 23.4 H 11.0-15.5 % Platelet Count 18 #L 130-400 K/uL Mean Platelet Volume 7.5-10.5 fL Immature Granulocyte % (Auto) 0.6 0-1 % Neutrophils (%) (Auto) 87.2 H 40.0-77.0 % Lymphocytes (%) (Auto) 6.7 L 21.0-51.0 % Monocytes (%) (Auto) 5.5 3.0-13.0 % Eosinophils (%) (Auto) 0.0 0.0-8.0 % Basophils (%) (Auto) 0.0 0.0-5.0 % Neutrophils # (Auto) 4.5 1.8-7.7 K/uL Lymphocytes # (Auto) 0.3 L 1.0-4.8 K/uL Monocytes # (Auto) 0.3 0.1-1.0 K/uL Eosinophils # (Auto) 0.00 0.00-0.70 K/uL Basophils # (Auto) 0.00 0.00-0.20 K/uL Absolute Immature Granulocyte (auto 0.03 0-1 K/uL Nucleated Red Blood Cells 0.0 0.0-0.19 % Sodium Level 136 136-145 mmol/L Potassium Level 4.4 3.5-5.1 mmol/L Chloride Level 105 101-111 mmol/L Carbon Dioxide Level 28 21-32 mmol/L Blood Urea Nitrogen 33 H 7-18 mg/dL Creatinine 1.2 H 0.5-1.0 mg/dL Glomerular Filtration Rate Calc 53 >90 mL/min Random Glucose 188 H 70-105 mg/dL Total Calcium 7.9 L 8.5-10.1 mg/dL Total Bilirubin 1.6 H 0.2-1.0 mg/dL Aspartate Amino Transf (AST/SGOT) 166 H 10-37 U/L Alanine Aminotransferase (ALT/SGPT) 136 H 12-78 U/L Alkaline Phosphatase 358 H 50-136 U/L C-Reactive Protein, Quantitative 61.50 H 0.5-3.0 mg/L Total Protein 7.6 6.0-8.3 g/dL Albumin 1.4 L 3.5-5.0 g/dL Prothrombin Time 17.2 H 9.6-11.6 SEC Prothromb Time International Ratio 1.71 H 0.85-1.15 Activated Partial Thromboplast Time 36.3 H 26.3-35.5 SEC Fibrinogen 119 L 180-350 mg/dL ASSESSMENT: Persistent Methicillin-resistant Staphylococcus aureus bacteremia. Urinary tract infection with methicillin-resistant Staphylococcus aureus. L2 and L3 intervertebral disc osteomyelitis.. Right Hydronephrosis, s/p right nephrostomy tube placement on 04/29/2025. Non-ketotic hyperglycemia. Urinary retention requiring Nolasco catheter placement. Morbid obesity. Thrombocytopenia. Diabetes mellitus. PLAN: Continue Gentamicin IV. Continue vancomycin per pharmacy protocol. Will follow up on the repeat blood cultures results. Continue pain management. Continue antidiabetic. Continue GI prophylaxis. Case management working on placement to [facility]. Patient will need 6 weeks of IV antibiotics. Patient is not a candidate for RAMAN due to thrombocytopenic and risks of bleeding. 1 unit of platelets will be transfused today if approved by remote sensing technologist. This case was reviewed and discussed with my supervising physician and the above assessment and plan was formulated and agreed upon. ATTESTATION BY PHYSICIAN I have seen and examined the patient. I reviewed the documentation, medical decision making, and treatment plan as noted by the mid-level provider above. I agree with the findings and plan of care. EDNA SOARES MD, MIRTA L [facility] May 06, 2025 18:45
--- NOTE | 2025-05-06 21:22 | PN ---
endocrinology progress note Date of Service: May 06, 2025 subjective: glucose are elevated and off steroid now. also on ivig hba1c 9.2, home regimen: lantus 30 units daily and humalog 10 units tid before meals. patient glucose are improving. s/p right nephrostomy tube, thrombocytopenia, UTI and Bacteremia PAST MEDICAL HISTORY: [undiagnosed obstructive sleep apnea, diabetes type 2, hypertension, hyperlipidemia, hypothyroidism, restless leg syndrome, anxiety disorder,depression, lupus and severe morbid obesity ] PAST SURGICAL HISTORY: [ Cholecystectomy, tubal ligation] PAST SOCIAL HISTORY: [ Patient lives with . Patient denies alcohol tobacco and recreational drug use] FAMILY HISTORY: [ Hypertension, diabetes, cardiovascular disease and Alzheimer's disease ] Coded Allergies: No Known Allergies (Unverified Allergy, Unknown, 08/26/14) ASSESSMENT: hyperglycemia due to uncontrolled dm-2 and off steroids now. glucose are improving. hba1c 9.2, home regimen: lantus 30 units daily and humalog 10 units tid before meals. Intractable low back pain POA L2/L3 OSTEOMYELITIS Acute thrombocytopenia POA IVIG Acute urinary tract infection POA On antibiotics. Bacteremia, MRSA on antibiotics. right kidney hydronephrosis s/p right nephrostomy tube Chronic anemia POA Hyponatremia POA Acute kidney injury on renal insufficiency POA improving Hypocalcemia POA stable Cirrhotic liver with splenomegaly consistent with portal hypertension per CT POA Renal parenchymal disease per CT POA Hypothyroidism POA ON LEVOTHYROXINE Hyperlipidemia POA Hypertension POA Anxiety disorder POA Depression POA Restless leg syndrome POA Suspected obstructive sleep apnea untreated POA Morbid obesity POA PLAN: continue lantus 30 units daily continue regular insulin 10 units qac before meals continue medium dose ssi monitor glucose qx6 hourly continue levothyroxine 125 mcg daily. Vitals/Labs Vital Signs Date Time Temp Pulse Resp B/P (MAP) Pulse Ox O2 Delivery O2 Flow Rate FiO2 05/06/25 19:35 97.9 68 20 125/50 96 Room Air 05/06/25 16:00 21 05/06/25 01:28 0 Laboratory Tests 05/06/25 05:23 Medications Current Medications Sodium Chloride 1,000 ml @ 0 mls/hr ONCE ONCE IV Last administered on 04/22/25at 17:27; Start 04/22/25 at 17:00; Stop 04/22/25 at 17:01; Status DC Ceftriaxone Sodium 1 gm ONCE ONCE IVPB Last administered on 04/22/25at 19:43; Start 04/22/25 at 19:00; Stop 04/22/25 at 19:01; Status DC Acetaminophen 650 mg Q6H PRN PO Last administered on 04/23/25at 10:02; Start 04/22/25 at 20:00; Stop 05/22/25 at 19:59 Acetaminophen 650 mg Q4H PRN PO Last administered on 04/30/25at 06:17; Start 04/22/25 at 20:00; Stop 05/22/25 at 19:59 Ondansetron HCl 4 mg Q6H PRN IV Last administered on 04/22/25at 20:10; Start 04/22/25 at 20:00; Stop 05/22/25 at 19:59 Famotidine 20 mg DAILY PO Last administered on 04/23/25at 09:33; Start 04/23/25 at 09:00; Stop 04/24/25 at 09:48; Status DC Ceftriaxone Sodium 1 gm/ Sodium Chloride 50 ml @ 100 mls/hr BID IV; Start 04/22/25 at 21:00; Stop 04/22/25 at 19:59; Status DC Lactated Ringer's 1,000 ml @ 100 mls/hr Q10H IV Last administered on 04/23/25at 06:00; Start 04/22/25 at 20:00; Stop 04/23/25 at 10:09; Status DC Insulin Human Regular INSULIN SLIDING SCAL... ACHS SQ Last administered on 04/24/25at 11:18; Start 04/22/25 at 21:00; Stop 04/24/25 at 16:16; Status DC Dextrose 50 ml AD PRN IV; Start 04/22/25 at 20:00; Stop 05/22/25 at 19:59 Glucagon 1 mg AD PRN IM; Start 04/22/25 at 20:00; Stop 05/22/25 at 19:59 Magnesium Sulfate 50 ml @ 0 mls/hr PROTOCOL PRN IV; Start 04/22/25 at 20:00; Stop 05/22/25 at 19:59 Potassium Chloride 100 ml @ 100 mls/hr AD PRN IV; Start 04/22/25 at 20:00; Stop 05/22/25 at 19:59 Potassium Chloride 20 meq AD PRN PO; Start 04/22/25 at 20:00; Stop 05/22/25 at 19:59 Potassium Chloride 20 meq AD PRN PO Last administered on 05/03/25at 13:10; Start 04/22/25 at 20:00; Stop 05/22/25 at 19:59 Ceftriaxone Sodium 1 gm BID IVPB; Start 04/22/25 at 21:00; Stop 04/22/25 at 20:44; Status DC Morphine Sulfate 4 mg ONCE ONCE IVP Last administered on 04/22/25at 20:11; Start 04/22/25 at 20:30; Stop 04/22/25 at 20:31; Status DC Lidocaine 1 each ONCE ONCE TP Last administered on 04/22/25at 21:14; Start 04/22/25 at 21:00; Stop 04/22/25 at 21:01; Status DC Ceftriaxone Sodium 1 gm BID IVPB Last administered on 04/25/25at 09:44; Start 04/23/25 at 09:00; Stop 04/25/25 at 12:36; Status DC Methylprednisolone Sodium Succinate 125 mg Q6H IVP Last administered on 04/25/25at 09:45; Start 04/23/25 at 08:00; Stop 04/28/25 at 09:10; Status DC Albuterol Sulfate 1.25 ONCE ONCE IH Last administered on 04/23/25at 09:40; Start 04/23/25 at 09:30; Stop 04/23/25 at 09:31; Status DC Calcium Gluconate 1 gm ONCE ONCE IV Last administered on 04/23/25at 10:55; Start 04/23/25 at 10:30; Stop 04/23/25 at 10:31; Status DC Sodium Chloride 50 ml @ 0 mls/hr ONCE ONCE IV Last administered on 04/23/25at 11:00; Start 04/23/25 at 11:00; Stop 04/23/25 at 11:01; Status DC Sodium Zirconium Cyclosilicate 10 gm ONCE ONCE PO Last administered on 04/23/25at 14:14; Start 04/23/25 at 14:00; Stop 04/23/25 at 16:08; Status DC Hydromorphone HCl 0.5 mg Q6H PRN IVP Last administered on 04/25/25at 04:14; Start 04/23/25 at 14:00; Stop 04/25/25 at 08:25; Status DC Sodium Zirconium Cyclosilicate 10 gm TID PO; Start 04/23/25 at 21:00; Stop 04/23/25 at 14:11; Status DC Pantoprazole Sodium 40 mg DAILY IVP Last administered on 05/06/25at 09:54; Start 04/24/25 at 10:00; Stop 05/24/25 at 09:59 Pregabalin 75 mg BID PO; Start 04/24/25 at 21:00; Stop 04/24/25 at 14:49; Status DC Vancomycin HCl 1 each AD IV; Start 04/24/25 at 10:30; Stop 04/25/25 at 12:36; Status DC Vancomycin HCl 500 ml @ 250 mls/hr ONCE ONCE IV Last administered on 04/24/25at 12:46; Start 04/24/25 at 11:00; Stop 04/24/25 at 12:59; Status DC Vancomycin HCl 250 ml @ 125 mls/hr Q12H IV Last administered on 04/25/25at 11:43; Start 04/24/25 at 23:00; Stop 04/25/25 at 12:36; Status DC Insulin Glargine 10 units HS SQ; Start 04/24/25 at 21:00; Stop 04/24/25 at 16:57; Status DC Insulin Glargine 10 units ONCE STAT SQ Last administered on 04/24/25at 11:19; Start 04/24/25 at 10:54; Stop 04/24/25 at 11:00; Status DC Atorvastatin Calcium 20 mg HS PO Last administered on 05/06/25at 20:22; Start 04/24/25 at 21:00; Stop 05/24/25 at 20:59 Gabapentin 300 mg BID PO Last administered on 04/25/25at 21:51; Start 04/24/25 at 21:00; Stop 04/28/25 at 09:10; Status DC Levothyroxine Sodium 125 mcg DAILY@0630 PO Last administered on 05/06/25at 06:26; Start 04/25/25 at 06:30; Stop 05/25/25 at 06:29 Metoprolol Succinate 50 mg AM PO Last administered on 05/06/25at 09:55; Start 04/25/25 at 09:00; Stop 05/25/25 at 08:59 Venlafaxine HCl 37.5 mg DAILY PO; Start 04/25/25 at 09:00; Stop 04/24/25 at 14:50; Status DC Pramipexole Dihydrochloride 0.5 mg HS PO Last administered on 05/06/25at 20:22; Start 04/24/25 at 21:00; Stop 05/24/25 at 20:59 Venlafaxine HCl 37.5 mg DAILY PO Last administered on 05/04/25at 09:21; Start 04/24/25 at 16:00; Stop 05/05/25 at 11:18; Status DC Insulin Human Regular INSULIN SLIDING SCAL... ACHS SQ Last administered on 04/25/25at 11:57; Start 04/24/25 at 16:30; Stop 04/25/25 at 14:09; Status DC Insulin Glargine 15 units HS SQ; Start 04/24/25 at 21:00; Stop 04/24/25 at 17:06; Status DC Insulin Human Regular 5 unit TIDAC SQ; Start 04/24/25 at 17:00; Stop 04/24/25 at 17:06; Status DC Insulin Glargine 30 units ONCE SQ Last administered on 04/24/25at 18:16; Start 04/24/25 at 17:00; Stop 04/25/25 at 06:19; Status DC Insulin Human Regular 10 unit TIDAC SQ Last administered on 04/25/25at 06:15; Start 04/24/25 at 17:00; Stop 04/25/25 at 06:17; Status DC Tramadol HCl 50 mg Q6H PRN PO Last administered on 04/28/25at 13:55; Start 04/24/25 at 22:30; Stop 04/29/25 at 22:29; Status DC Insulin Human Regular 25 unit TIDAC SQ Last administered on 04/25/25at 17:39; Start 04/25/25 at 07:30; Stop 04/26/25 at 07:58; Status DC Insulin Glargine 70 units ONCE ONCE SQ Last administered on 04/25/25at 06:27; Start 04/25/25 at 06:30; Stop 04/25/25 at 06:31; Status DC Hydromorphone HCl 0.5 mg BIDPRN PRN IVP Last administered on 04/29/25at 23:31; Start 04/25/25 at 19:00; Stop 04/30/25 at 11:59; Status DC Heparin Sodium (Porcine) 5,000 unit Q8H SQ; Start 04/25/25 at 09:00; Stop 04/25/25 at 08:40; Status DC Lactulose 30 gm TID PO Last administered on 04/30/25at 09:16; Start 04/25/25 at 11:00; Stop 04/30/25 at 09:45; Status DC Sodium Chloride 500 ml @ 0 mls/hr Q0M IV; Start 04/25/25 at 11:00; Stop 05/25/25 at 10:59 Trimethoprim/ Sulfamethoxazole 1 tab BID PO Last administered on 04/25/25at 21:51; Start 04/25/25 at 21:00; Stop 04/26/25 at 14:50; Status DC Insulin Human Regular INSULIN SLIDING SCAL... ACHS SQ Last administered on 05/04/25at 20:49; Start 04/25/25 at 16:30; Stop 05/04/25 at 23:42; Status DC Diazepam 10 mg ONCE ONCE IM; Start 04/25/25 at 15:00; Stop 04/25/25 at 15:01; Status DC Lactulose 200 gm ONCE ONCE LA Last administered on 04/25/25at 17:30; Start 04/25/25 at 16:30; Stop 04/25/25 at 16:31; Status DC Lorazepam 0.5 mg ONCE ONCE PO Last administered on 04/25/25at 19:07; Start 04/25/25 at 19:00; Stop 04/25/25 at 19:01; Status DC Haloperidol Lactate 1 mg ONCE ONCE IM Last administered on 04/26/25at 05:17; Start 04/26/25 at 05:00; Stop 04/26/25 at 05:02; Status DC Insulin Human Regular 15 unit TIDAC SQ; Start 04/26/25 at 11:30; Stop 04/27/25 at 20:30; Status DC Insulin Glargine 50 units DAILY SQ Last administered on 04/28/25at 08:46; Start 04/26/25 at 09:00; Stop 04/29/25 at 06:49; Status DC Dextrose 1,000 ml @ 75 mls/hr [id number] IV Last administered on 04/29/25at 04:27; Start 04/26/25 at 12:00; Stop 04/30/25 at 09:36; Status DC Dexmedetomidine/ Sodium Chloride 200 mcg PROTOCOL IV; Start 04/26/25 at 12:00; Stop 04/26/25 at 14:54; Status DC Dexmedetomidine/ Sodium Chloride 400 mcg STK-MED ONCE IV; Start 04/26/25 at 14:49; Stop 04/26/25 at 14:50; Status DC Vancomycin HCl 1 each AD IV; Start 04/26/25 at 15:00; Stop 05/10/25 at 14:59 Dexmedetomidine/ Sodium Chloride 400 mcg PROTOCOL STAT IV Last administered on 04/26/25at 15:18; Start 04/26/25 at 14:53; Stop 04/26/25 at 14:58; Status DC Vancomycin HCl 250 ml @ 125 mls/hr Q12H IV Last administered on 04/27/25at 15:22; Start 04/26/25 at 15:30; Stop 04/28/25 at 03:13; Status DC Dexmedetomidine/ Sodium Chloride 400 mcg PROTOCOL PRN IV Last administered on 04/27/25at 23:31; Start 04/26/25 at 19:30; Stop 05/01/25 at 12:45; Status DC Dexmedetomidine/ Sodium Chloride 400 mcg STK-MED ONCE IV Last administered on 04/26/25at 19:14; Start 04/26/25 at 19:10; Stop 04/26/25 at 19:11; Status DC Insulin Human Regular INSULIN SLIDING SCAL... Q4H SQ Last administered on 04/28/25at 06:00; Start 04/27/25 at 20:30; Stop 04/28/25 at 09:11; Status DC Vancomycin HCl 250 ml @ 125 mls/hr Q12H IV; Start 04/28/25 at 15:30; Stop 04/28/25 at 18:53; Status DC Insulin Human Regular 8 unit TIDAC SQ Last administered on 04/30/25at 06:15; Start 04/28/25 at 07:30; Stop 04/30/25 at 07:31; Status DC Vancomycin HCl 250 ml @ 125 mls/hr Q12H IV Last administered on 05/02/25at 10:21; Start 04/28/25 at 20:00; Stop 05/02/25 at 20:34; Status DC Insulin Glargine 40 units DAILY SQ; Start 04/29/25 at 09:00; Stop 04/30/25 at 07:31; Status DC Lidocaine HCl 50 ml STK-MED ONCE .ROUTE; Start 04/29/25 at 16:03; Stop 04/29/25 at 16:06; Status DC Heparin Sodium/ Sodium Chloride 500 ml @ As Directed STK-MED ONCE IV; Start 04/29/25 at 16:03; Stop 04/29/25 at 16:06; Status DC Iodixanol 100 ml STK-MED ONCE .ROUTE; Start 04/29/25 at 16:04; Stop 04/29/25 at 16:06; Status DC Fentanyl Citrate 100 mcg STK-MED ONCE .ROUTE; Start 04/29/25 at 16:27; Stop 04/29/25 at 16:28; Status DC Midazolam HCl 2 mg STK-MED ONCE .ROUTE; Start 04/29/25 at 16:28; Stop 04/29/25 at 16:28; Status DC Midazolam HCl 2 mg STK-MED ONCE .ROUTE; Start 04/29/25 at 16:52; Stop 04/29/25 at 16:52; Status DC Lidocaine 1 each ONCE ONCE TP Last administered on 04/29/25at 19:18; Start 04/29/25 at 18:30; Stop 04/29/25 at 18:33; Status DC Insulin Glargine 50 units DAILY SQ Last administered on 05/04/25at 09:30; Start 04/30/25 at 09:00; Stop 05/05/25 at 07:21; Status DC Insulin Human Regular 12 unit TIDAC SQ Last administered on 05/02/25at 06:45; Start 04/30/25 at 07:30; Stop 05/02/25 at 08:05; Status DC Hydromorphone HCl 1 mg TIDP PRN IVP Last administered on 04/30/25at 20:44; Start 04/30/25 at 13:00; Stop 05/01/25 at 18:46; Status DC Acetaminophen/ Hydrocodone Bitart 1 tab Q4H PRN PO Last administered on 04/30/25at 22:07; Start 04/30/25 at 12:00; Stop 05/05/25 at 11:59; Status DC Pharmacy Profile Note 1 each ONCE MISC; Start 05/01/25 at 08:00; Stop 04/30/25 at 16:52; Status DC Immune Globulin 400 ml @ 0 mls/hr Q24H IV Last administered on 05/01/25at 16:18; Start 05/01/25 at 14:00; Stop 05/02/25 at 12:38; Status DC Pregabalin 25 mg BID PO Last administered on 05/04/25at 09:22; Start 05/01/25 at 21:00; Stop 05/05/25 at 07:22; Status DC Lisinopril 10 mg DAILY PO Last administered on 05/06/25at 09:55; Start 05/02/25 at 09:00; Stop 06/01/25 at 08:59 Diphenhydramine HCl 25 mg ONCE PRN IVP; Start 05/01/25 at 15:00; Stop 05/01/25 at 15:06; Status DC Dexamethasone Sodium Phosphate 20 mg ONCE PRN IV; Start 05/01/25 at 15:00; Stop 05/01/25 at 15:05; Status DC Dexamethasone Sodium Phosphate 20 mg ONCALL IV Last administered on 05/02/25at 15:41; Start 05/01/25 at 15:30; Stop 05/03/25 at 15:31; Status DC Diphenhydramine HCl 25 mg ONCALL IVP Last administered on 05/02/25at 15:41; Start 05/01/25 at 15:30; Stop 05/03/25 at 15:31; Status DC Hydromorphone HCl 1 mg TID PRN IVP; Start 05/01/25 at 19:00; Stop 05/05/25 at 12:59; Status DC Insulin Human Regular 15 unit TIDAC SQ Last administered on 05/04/25at 17:33; Start 05/02/25 at 11:30; Stop 05/05/25 at 07:21; Status DC Immune Globulin 400 ml @ 0 mls/hr Q24H IV Last administered on 05/02/25at 16:46; Start 05/02/25 at 16:00; Stop 05/03/25 at 16:01; Status DC Vancomycin HCl 250 ml @ 125 mls/hr Q12H9 IV Last administered on 05/06/25at 20:22; Start 05/04/25 at 21:00; Stop 05/14/25 at 20:59 Pharmacy Profile Note 1 each ONCE MISC; Start 05/03/25 at 12:00; Stop 05/03/25 at 12:58; Status DC Gentamicin Sulfate/Sodium Chloride 100 ml @ 200 mls/hr Q24H IV Last administered on 05/06/25at 16:22; Start 05/03/25 at 14:00; Stop 05/13/25 at 13:59 Dexamethasone Sodium Phosphate 20 mg ONCALL IV Last administered on 05/03/25at 17:23; Start 05/03/25 at 17:15; Stop 05/03/25 at 17:16; Status DC Diphenhydramine HCl 25 mg ONCALL IVP Last administered on 05/03/25at 17:22; Start 05/03/25 at 17:15; Stop 05/03/25 at 17:16; Status DC Immune Globulin 400 ml @ 0 mls/hr Q24H IV Last administered on 05/03/25at 17:57; Start 05/03/25 at 17:15; Stop 05/03/25 at 17:16; Status DC Fluconazole 150 mg ONCE ONCE PO Last administered on 05/04/25at 15:57; Start 05/04/25 at 15:30; Stop 05/04/25 at 15:31; Status DC Insulin Human Regular INSULIN SLIDING SCAL... ACHS SQ Last administered on 05/06/25at 20:35; Start 05/05/25 at 07:30; Stop 06/04/25 at 07:29 Insulin Glargine 30 units DAILY SQ Last administered on 05/06/25at 10:09; Start 05/05/25 at 09:00; Stop 06/04/25 at 08:59 Insulin Human Regular 12 unit TIDAC SQ; Start 05/05/25 at 07:30; Stop 05/05/25 at 22:51; Status DC Venlafaxine HCl 37.5 mg HS PO Last administered on 05/06/25at 20:22; Start 05/05/25 at 21:00; Stop 06/04/25 at 20:59 Insulin Human Regular 10 unit TIDAC SQ; Start 05/06/25 at 07:30; Stop 06/05/25 at 07:29 Dexamethasone Sodium Phosphate 10 mg ONCE ONCE IVP Last administered on 05/06/25at 20:20; Start 05/06/25 at 20:00; Stop 05/06/25 at 20:04; Status DC Diphenhydramine HCl 25 mg ONCE ONCE IV Last administered on 05/06/25at 20:20; Start 05/06/25 at 20:00; Stop 05/06/25 at 20:04; Status DC PARAG VANG MD May 06, 2025 21:22
--- NOTE | 2025-05-06 22:54 | NUR ---
REPORT RECEIVED REPORT FROM CONRAD SANFORD ASSUMED PATIENT CARE AT THIS TIME Addendum: 05/06/25 at 2256 by MING COPE RN RN Amended: Links added.
--- NOTE | 2025-05-06 23:50 | NUR ---
PLATELETS TRANSFUSION PATIENT AWAKE WATCHING TV IN BED. SON AT BEDSIDE. RESP EVEN AND UNLABORED. NO SOB NOTED. 1UNIT OF PLATELETS COMPLETED. NO ADVERSE REACTIONS NOTED. VITALS STABLE. AFEBRILE. TOTAL CARE RENDERED. BMNOTED. REPOSITIONED FOR COMFORT. PICC LINE PATENT AND FLUSHED. CALL LIGHT WITHIN REACH. NO SIGNS OF DISTRESS NOTED UPON EXITING THE ROOM. Addendum: 05/07/25 at 0317 by MING COPE RN RN Amended: Links added.
[2025-05-07] VITALS (9 sets, daily range): BP systolic 129–157; BP diastolic 40–59; PULSE 56–74; RESP 20; TEMP 97.3–98; O2SAT 91–96
[2025-05-07 05:51] LABS: NUCLEATED RED BLOOD CELLS 0.0 % (0.0-0.19); PLATELET COUNT (AUTO) 16 K/uL (130-400); RED BLOOD CELL COUNT(AUTO) 3.24 MIL/uL (4.00-5.50); RED CELL DISTRIBUTION WIDTH 23.5 % (11.0-15.5); WHITE BLOOD COUNT (AUTO) 3.0 K/uL (4.8-10.8)
[2025-05-07 06:06] LABS: ASPARTATE AMINOTRANSFERASE 120.0 U/L (10-37); CREATININE 1.2 mg/dL (0.5-1.0); GLOMERULAR FILTR. RATE CALC 53.0 mL/min (>90); GLUCOSE,RANDOM 261.0 mg/dL (70-105); SODIUM SERUM 136.0 mmol/L (136-145); TOTAL PROTEIN, SERUM 7.5 g/dL (6.0-8.3); UREA NITROGEN, BLOOD 35.0 mg/dL (7-18)
--- NOTE | 2025-05-07 06:44 | NUR ---
ELEVATED DDIMER AND POSITIVE BLOOD CULTURES DDIMER AND BLOOD CULTURES REPORTED TO . NEW ORDERS RECEIVED AND CARRIED OUT.
[2025-05-07 07:35] LABS: LYMPHOCYTES % (MANUAL) 2 % (22-44); MONOCYTES % (MANUAL) 1 % (2-9); SEGMENTED NEUTROPHILS % 97 % (40-70)
[2025-05-07 07:38] LABS: MAN.DIFF COMMENT-IMPRESSION MANUAL DIFFERENTIAL; PLATELET MORPHOLOGY COMMENT MARKED DECREASE
--- NOTE | 2025-05-07 10:02 | PN ---
[facility] PROGRESS NOTE Date of Service: May 07, 2025 Time of Service: 09:51 SUBJECTIVE: This is a 54-year-old female with past medical history of undiagnosed obstructive sleep apnea, diabetes type 2, hypertension, hyperlipidemia, hypothyroidism, restless leg syndrome, anxiety disorder,depression, lupus and severe morbid obesity who presents to the ED for complaints of severe low back pain which started 2 weeks ago and getting worse for the past 2 days and patient reports she is taking prednisone 30mg po daily for her Lupus she said.Patient also reports she was recently seen in this ED for similar complaints and was diagnosed with acute lumbosacral myofascial strain. 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 Urinalysis consistent with urinary tract infection. CT abdomen and pelvis result revealed no acute intra-abdominal or pelvic pathology cirrhotic liver morphology with splenomegaly, consistent with portal hypertension. Bilateral r enal cortical thickening may reflect renal parenchymal disease. While in the ER patient received Rocephin 1 g IV, 1 L NS bolus. We will admit patient for further medical management. 04/23/25 Patient was seen and examined at bedside. She was complaining of chest pain early in the morning but her EKG and troponin were normal. Patient says she got liver cirrhosis from taking Tylenol with codeine in the past for a long time. Remarkable labs are Na 129, K 6.4. Cl 98, BUN 44. Cr 1.2 with no anion gap. New EKG shows sinus rhythm with no tall T-waves or shortened QT interval. We will give her a dose of calcium gluconate and lokelma and recheck her labs. we will hold her iv fluids for now. Her urine anion gap is 36.0 mEq/l. Repeat potassium was 4.2 and 4.6. We will order CT lumbar spine and request nephro and cardio consults due to hyponatremia, RTA and cirrhosis with portal hypertension res pectively. We will order lupus, complement , anemia panel due to her abnormal labs and h/o SLE. Hematology recommended solu medrol 125 q6. she might need hydrochloroquine upon discharge for SLE 04/24/25 Patient was seen and examined at bedside. She is complaining of widespread generalized body pain with tender points and generalized weakness, her CPK is going up, we will repeat it and start her on pregabalin. Her labs are improving. She had an EGD done last year that showed grade III varices but lost to follow up with TDS. No GI intervention as her Hb is stable. Will start her on vancomycin. Her home meds have been reconciled. She takes venlaflaxine and pramipexole for depression and restless leg syndrome respectively. Her elevated urine anion gap could be due to BALTAZAR or NSAID induced kidney injury but her creatinine is improving. Pending abdominal ultrasound and CT lumbar spine result s. 04/25/25 Patient was seen and examined. She was observed sitting in a chair but was unable to answer questions appropriately and appeared confused. Ammonia level was elevated at 59; lactulose has been initiated at 30 mL TID. She is currently receiving vancomycin for MRSA identified in the urine. Right upper quadrant ultrasound demonstrated chronic hepatic changes with a hypoechoic lesion in the right lobe of the liver, possibly representing a complex cyst. CT of the lumbar spine revealed moderate lumbar spondylosis and diffuse osteopenia. Her platelet count is 37 and showing slow improvement. Dr. Urias, covering for Dr. Lorenzo, recommended holding solu-medrol for now. If platelet count declines tomorrow, steroids may need to be restarted. Ammonia and additional labs will be rechecked in the morning. 04/26/25 Patient was seen at bedside. Will request a transfer to the ICU due to worsening agitation and hypercapnic respiratory failure requiring BIPAP support.Will order Precedex drip for sedation to improve tolerance of non-invasive ventilation. Imaging studies including CT head and MRI spine have been ordered to evaluate for underlying neurologic causes. Patient remains hemodynamically stable; pulmonary consult is in place. She is growing gram positive cocci in clusters in her blood, will request ID input on antibiotics as she was on vancomycin previously and was started on bactrim for MRSA in urine. Her platelet count is 36 and solu-medrol is on hold. Ammonia improved from 59 to 12 04/27/25 Patient was evaluated at bedside. She was transferred to the ICU yesterday due to agitation and hypercapnia, requiring a Precedex drip as she was removing her nasal cannula. BiPAP was initiated to support ventilation, and she is now resting comfortably. CT brain was unremarkable with no acute findings. She has a free water deficit of approximately 1.4 liters, for which D5W will be administered. CRP has decreased from 83.5 to 56.4. However, platelets have dropped from 36 to 28, and hematology is closely monitoring her. The patient remains NPO. We wanted to start NG tube feeding but patient has h/o esophageal varices. We will await gastroenterologys recommendations, including possible EGD if indicated. 04/28/25 Patient was evaluated at bedside, she is bed bound not very responsive to questions. She is currently off BiPAP and precedex drip. Her agitation has improved and she is resting comfortably in bed. She has MRSA bacteremia and we will repeat blood cultures. She is currently on vancomycin. She has moderate right hydronephrosis which is increasing, we will request urology consult. Her sodium is trending upwards from 147 to 152 and she has a free water deficit of 2.4 L , we will increase D5 rate from 75 to 150mls/hr. CRP improving from 56.4 to 42.7. Platelets dropped from 28 to 21, we will follow Dr. Lorenzo's recommendations and his plan is give her IgG. She is not bleeding actively. 04/29/25 Patient was evaluated at bedside. She is alert, awake and oriented. She was minimally verbal yesterday but is now more interactive, expressing pain and discussing her medical history. She reports diffuse joint pain and is unable to lift her arms or legs due to significant discomfort. She has generalized joint tenderness and weak refrigeration person strength bilaterally. urologist Dr. Colin recommended nephrostomy tube on her right due to hydronephrosis. Her platelets improved to 44 without any intervention. She will be getting platelets for the procedure. She has infectious spondylodiscitis which could be the source of her bacteremia. We have requested transfer to [facility] but warehouse packaging supervisor said Dr. Sanchez has privileges at [facility] and will try to consult him. Her white count went up to 12.2, LFTs mildly going up. We will hold off on gabapentin for now. 04/30/25 Patient was evaluated at bedside. She is alert, awake and oriented. Her vitals are stable. She is interactive, expressing pain and discussing her medical history. She reports diffuse joint pain and is able to lift her arms or legs slightly due to pain and discomfort. Her active and passive range of motions are limited. She has generalized joint tenderness and weak refrigeration person strength bilaterally. She also passed stool more than 5 times yesterday could be due to lactulose which has been stopped from today. A Percutaneous fluroscopy-guided placement of an 8-F nephrostomy catheter was performed,the patient tolerated the procedure well. Neurosurgeon Dr. Sanchez saw the patient and came up with possible diagnosis of discitis and osteomyelitis at L2-L3 along with psoas inflammation. She has spondylolisthesis which is non- critical and can be managed medically for now. According to Dr. Lorenzo she will benefit from IVIg for 3 days on the background of possible ITP. Her current platelet is 41 and Hgb 9.6. Also, Endocrinology team adjusted Insulin regimen. We have requested cardiology consult for suspected endocarditis and will request RAMAN although she has thrombocytopenia and h/o esophageal varices. 05/01/25 Patient was evaluated at bedside. She is alert, awake and oriented. Her vitals are stable, except blood pressure which is 158/80. She reports diffuse joint pain and is able to lift her arms or legs slightly due to pain and discomfort. Her active and passive range of motions are limited. She has generalized joint tenderness and weak refrigeration person strength bilaterally. As per Dr. Lorenzo she will be started IVIG from today for 3 days. As per the Cardiology, she won't undergo RAMAN due thrombocytopenia, cirrhosis, varices. We will continue IV antibiotics and add low dose pregabalin for her pain. 05/02/25 Patient was evaluated at bedside. She is alert, awake and oriented. Her vitals are stable, except blood pressure which is 157/81. Labs showed WBC decreasing from 11.6 to 5.7, platelets from 44 to 32 and random glucose of 226. There has been marked decline in pain. We will continue IV antibiotics and she is receiving Immune globulin every 24 hr. Her Insulin dosage has been adjusted. Blood culture showed gram positive cocci in clusters, STAPHYLOCOCCUS AUREUS. Her prognosis remains guarded. Plan is to discharge her to [facility] for 6 weeks of IV antibiotics. 05/03/25 Patient was evaluated at bedside. She is alert, awake and oriented. Her vitals are stable,and her blood pressure which is 137/70. Labs showed WBC 7.8 , platelets from increasing from 32 to 44 and random glucose of 232. Her creatinine level is 1.2. There has been marked decline in pain and discomfort. We will continue IV antibiotics and she is receiving Immune globulin every 24 hr. Her last dose for Immune globulin is today. Her Insulin dosage has been adjusted. Blood culture showed gram positive cocci. Her prognosis remains guarded. She is on IV vancomycin. Plan is to discharge her to [facility] for 6 weeks of IV antibiotics. 05/04/25: The patient was evaluated at the bedside today. She had just finished showering and reported new-onset slurred speech, facial weakness and word- finding difficulty. She reports no weakness in the extremities. Blood cultures remain positive for gram-positive cocci, specifically MRSA. She is continuing on vancomycin, and gentamicin was initiated yesterday per Infectious Disease recommendations. She has completed a total of three IV IgG infusions. Platelet count is currently 31,000, decreased from 41,000 yesterday. Additionally, the patient has developed a groin rash with associated itching. Physical therapy noted that she was unable to ambulate today and experienced significant difficulty with mobility. We will continue to closely monitor her neurological status, platelet counts, and overall clinical response. Repeat blood cultures will be obtained at an appropriate interval following the initiation of gentamicin, per Infectious Disease guidance. Further assessment and management plan are outlined below. 05/05/25 The patient was evaluated at the bedside today. Her vitals are stable and comm unicated well. She complaints of pain in the neck and shoulder. She reports no weakness in the extremities. Blood cultures remain positive for gram-positive cocci, specifically MRSA. She is continuing on vancomycin, and gentamicin per Infectious Disease recommendations. Repeat blood cultures will be obtained at an appropriate interval following the initiation of gentamicin. She has completed a total of three IV IgG infusions. Platelet count is currently decreased [place] 31,000 [place] [address]. Her WBC is 6.8 and Hgb is 8.6. Her insulin medications has been adjusted by the endocrinology team. Additionally, the patient's groin rash with associated itching has been improving. She has been prescribed for Venlafaxine for management of depression and anxiety. Also Case management updated that they are in communication with [facility], Insurance approval is still pending; no authorization has been granted as of this time. Further assessment and management plan are outlined below. 05/06/25 The patient was evaluated at the bedside today. Her vitals are stable and communicated well. Her pain is gradually decreasing. She reports no weakness in the extremities. Blood cultures remain positive for gram-positive cocci, specifically MRSA. Blood culture has been sent today after 3 days of gentamicin. She is continuing on vancomycin, and gentamicin per Infectious Disease recommendations. . She has completed a total of three IV IgG infusions. Platelet count is currently decreased from 31,[address] As per Dr[address] Lorenzo, she has been planned for the transfusion of platelets today. Her WBC is 5.1, Hgb is 8.9, CRP 61.50 and whole blood glucose 233. In addition,PT is 17.2, INR 1.71, APTT 36.3 and Fibrinogen 119. Also, the Liver enzymes are elevated with total bilirubin of 1.6, AST 166, ALT 136 and ALP 358. Her Vancomycin trough level has increased from 5.0 to 18.1. Her insulin medications has been adjusted by the endocrinology team. Additionally, the patient's groin rash has been improving. As per Nephrology, the patient's renal function has actually greatly improved &the patient is being seen by case management in regards to placement at the [facility]. We will continue to follow the patient closely. 05/06/25 The patient was evaluated at the bedside today. Her vitals are stable and communicated well. Her pain has reduced significantly. Preliminary Blood cultures showed positive for gram-positive cocci which was done yesterday after 3 days of gentamicin. PICC line has been removed as per ID recommendation. [place] [address] today. Fecal occult blood test is positive. She received platelets transfusion yesterday. Her WBC is trending downwards from 5.1 to 3.0, Hgb is 8.4, and whole blood glucose 245. In addition, PT is 17.2, INR 1.71, APTT 36.3 and Fibrinogen 119. Her D-dimer is 7184. She has been planed today for bilateral US venous Doppler,V/Q scan and CTPA. Her Liver enzymes revealed total bilirubin of 1.9, AST 120, ALT 125 and ALP 371. Her Vancomycin trough level has decreased from 18.1 to 0.2. Her insulin medications has been followed by the endocrinology team. As per Dr Lorenzo, the patient can be transferred to [facility] as soon as accepted and he is trying to get her Promacta, medicine that raises the platelets,once its available. The WBC-tagged scan has been deferred and rescheduled for tomorrow to avoid excessive radiation exposure since patient was initially planned for V/Q scan today. REVIEW OF SYSTEMS CONSTITUTIONAL: No fever, chills, or night sweats. NEUROLOGICAL: Denies headache, sensory and motor deficit. CARDIOVASCULAR: Denies any exertional angina, dyspnea on exertion, orthopnea, paroxysmal nocturnal dyspnea, palpitations. PULMONARY: Denies any shortness of breath, cough, phlegm/sputum, hemoptysis, p leuritic chest pain. GASTROINTESTINAL: Denies nausea, vomiting, abdominal pain. GENITOURINARY: Denies frequency, urgency, nocturia, hematuria or incontinence. PHYSICAL EXAM GENERAL APPEARANCE: The patient is alert, awake and oriented and bedbound NEUROLOGICAL: No sensory and motor deficits. CHEST: Normal chest expansion. LUNGS: Absence of any rales, rhonchi or any wheezing. CARDIOVASCULAR: Regular. S1 and S2 normal. No appreciable rubs, murmurs or gallops. ABDOMEN: Soft nontender, and nondistended. There is no rebound, voluntary guarding, or rigidity. GENITOURINARY: S/P day 5, Nephrostomy tube on the right side Vital Signs (last 8hr) Date Time Temp Pulse Resp B/P (MAP) Pulse Ox O2 Delivery O2 Flow Rate FiO2 05/07/25 08:00 97.3 64 20 141/57 96 Room Air 21 05/07/25 03:03 97.5 56 20 133/46 100 Room Air 05/07/25 02:24 91 Room Air* 0 21 LABS: Laboratory: Test 05/07/25 05:35 05/07/25 04:57 05/06/25 15:45 05/06/25 15:00 Range/Units White Blood Count 3.0 L 4.8-10.8 K/uL Red Blood Count 3.24 L 4.00-5.50 MIL/uL Hemoglobin 8.4 L 12.0-16.0 g/dL Hematocrit 26.0 L 36-48 % Mean Corpuscular Volume 80.2 79-99 fL Mean Corpuscular Hemoglobin 25.9 L 27.0-33.0 pg Mean Corpuscular Hemoglobin Concent 32.3 32.0-36.0 g/dL Red Cell Distribution Width 23.5 H 11.0-15.5 % Platelet Count 16 L 130-400 K/uL Mean Platelet Volume 7.5-10.5 fL Segmented Neutrophils % 97 H 40-70 % Lymphocytes % (Manual) 2 L 22-44 % Monocytes % (Manual) 1 L 2-9 % Nucleated Red Blood Cells 0.0 0.0-0.19 % Differential Comment MANUAL DIFFERENTIAL White Cell Morphology Comment Platelet Morphology Comment MARKED DECREASE Red Blood Cell Morphology See comments D-Dimer Quantitative (PE/DVT) 7184 *H 0-500 ng/mL Sodium Level 136 136-145 mmol/L Potassium Level 4.9 3.5-5.1 mmol/L Chloride Level 104 101-111 mmol/L Carbon Dioxide Level 26 21-32 mmol/L Blood Urea Nitrogen 35 H 7-18 mg/dL Creatinine 1.2 H 0.5-1.0 mg/dL Glomerular Filtration Rate Calc 53 >90 mL/min Random Glucose 261 H 70-105 mg/dL Total Calcium 8.0 L 8.5-10.1 mg/dL Total Bilirubin 1.9 H 0.2-1.0 mg/dL Aspartate Amino Transf (AST/SGOT) 120 H 10-37 U/L Alanine Aminotransferase (ALT/SGPT) 125 H 12-78 U/L Alkaline Phosphatase 371 H 50-136 U/L Total Protein 7.5 6.0-8.3 g/dL Albumin 1.4 L 3.5-5.0 g/dL Whole Blood Glucose 245 H 70-110 MG/DL Bedside Glucose Comment Notified Nurse Gentamicin Level Peak 0.2 L 4.0-8.0 mcg/mL Test 05/06/25 13:25 05/06/25 07:40 05/06/25 05:23 Range/Units Gentamicin Level Trough 0.3 0.0-2.0 mcg/mL Vancomycin Level Trough 18.1 # 10.0-20.0 UG/ML Immature Granulocyte % (Auto) 0.6 0-1 % Neutrophils (%) (Auto) 87.2 H 40.0-77.0 % Lymphocytes (%) (Auto) 6.7 L 21.0-51.0 % Monocytes (%) (Auto) 5.5 3.0-13.0 % Eosinophils (%) (Auto) 0.0 0.0-8.0 % Basophils (%) (Auto) 0.0 0.0-5.0 % Neutrophils # (Auto) 4.5 1.8-7.7 K/uL Lymphocytes # (Auto) 0.3 L 1.0-4.8 K/uL Monocytes # (Auto) 0.3 0.1-1.0 K/uL Eosinophils # (Auto) 0.00 0.00-0.70 K/uL Basophils # (Auto) 0.00 0.00-0.20 K/uL Absolute Immature Granulocyte (auto 0.03 0-1 K/uL C-Reactive Protein, Quantitative 61.50 H 0.5-3.0 mg/L Current Medications Medications (Trade) Dose Ordered Sig/Roberth Route PRN Reason Start Time Stop Time Status Last Admin Dose Admin Acetaminophen (TYLenol 325MG TAB) 650 mg Q4H PRN PO MILD PAIN (1-3) 04/22/25 20:00 05/22/25 19:59 04/30/25 06:17 650 MG Acetaminophen (TYLenol 325MG TAB) 650 mg Q6H PRN PO TEMPERATURE GREATER THAN 101.5 04/22/25 20:00 05/22/25 19:59 04/23/25 10:02 650 MG Acetaminophen/ Hydrocodone Bitart (NORco 5/325MG) 1 tab Q4H PRN PO MODERATE PAIN (4-6) 04/30/25 12:00 05/05/25 11:59 DC 04/30/25 22:07 1 TAB Atorvastatin Calcium (LIPItor 20MG) 20 mg HS PO 04/24/25 21:00 05/24/25 20:59 05/06/25 20:22 20 MG Ceftriaxone Sodium 1 gm/ Sodium Chloride 50 ml @ 100 mls/hr BID IV 04/22/25 21:00 04/22/25 19:59 DC Ceftriaxone Sodium (ROCEphine 1G INJ) 1 gm BID IVPB 04/22/25 21:00 04/22/25 20:44 DC Ceftriaxone Sodium (ROCEphine 1G INJ) 1 gm BID IVPB 04/23/25 09:00 04/25/25 12:36 DC 04/25/25 09:44 1 GM Dexamethasone Sodium Phosphate (dexaMETHasone 4MG/ML 1ML VIAL) 20 mg ONCALL IV 05/01/25 15:30 05/03/25 15:31 DC 05/02/25 15:41 20 MG Dexamethasone Sodium Phosphate (dexaMETHasone 4MG/ML 1ML VIAL) 20 mg ONCALL IV 05/03/25 17:15 05/03/25 17:16 DC 05/03/25 17:23 20 MG Dexamethasone Sodium Phosphate (dexaMETHasone 4MG/ML 1ML VIAL) 20 mg ONCE PRN IV PRE-MED 05/01/25 15:00 05/01/25 15:05 DC Dexmedetomidine/ Sodium Chloride (PRECEdex 200MCG/ 50ML-NS) 200 mcg PROTOCOL IV 04/26/25 12:00 04/26/25 14:54 DC Dexmedetomidine/ Sodium Chloride (PRECEdex 400MCG/ 100ML-NS) 400 mcg PROTOCOL PRN IV ANXIETY/AGITATION 04/26/25 19:30 05/01/25 12:45 DC 04/27/25 23:31 400 MCG Dexmedetomidine/ Sodium Chloride (PRECEdex 400MCG/ 100ML-NS) 400 mcg PROTOCOL STAT IV 04/26/25 14:53 04/26/25 14:58 DC 04/26/25 15:18 400 MCG Dextrose 1,000 ml @ 75 mls/hr [id number] IV 04/26/25 12:00 04/30/25 09:36 DC 04/29/25 04:27 150 MLS/HR Dextrose (D50w) 50 ml AD PRN IV HYPOGLYCEMIA PROTOCOL 04/22/25 20:00 05/22/25 19:59 Diphenhydramine HCl (BENAdryl INJ) 25 mg ONCALL IVP 05/01/25 15:30 05/03/25 15:31 DC 05/02/25 15:41 25 MG Diphenhydramine HCl (BENAdryl INJ) 25 mg ONCALL IVP 05/03/25 17:15 05/03/25 17:16 DC 05/03/25 17:22 25 MG Diphenhydramine HCl (BENAdryl INJ) 25 mg ONCE PRN IVP PRE-MED 05/01/25 15:00 05/01/25 15:06 DC Famotidine (Pepcid 20mg Tab) 20 mg DAILY PO 04/23/25 09:00 04/24/25 09:48 DC 04/23/25 09:33 20 MG Gabapentin (NEURontin 300 MG CAP) 300 mg BID PO 04/24/25 21:00 04/28/25 09:10 DC 04/25/25 21:51 300 MG Gentamicin Sulfate/Sodium Chloride 100 ml @ 200 mls/hr Q24H IV 05/03/25 14:00 05/13/25 13:59 05/06/25 16:22 200 MLS/HR Glucagon (Glucagon 1mg Kit) 1 mg AD PRN IM HYPOGLYCEMIA PROTOCOL 04/22/25 20:00 05/22/25 19:59 Heparin Sodium (Porcine) (HEParin 5,000 UNIT VIAL) 5,000 unit Q8H SQ 04/25/25 09:00 04/25/25 08:40 DC Hydromorphone HCl (DiLAUDid 0.5MG INJ) 0.5 mg BIDPRN PRN IVP SEVERE PAIN (7-10) 04/25/25 19:00 04/30/25 11:59 DC 04/29/25 23:31 0.5 MG Hydromorphone HCl (DiLAUDid 0.5MG INJ) 0.5 mg Q6H PRN IVP SEVERE PAIN (7-10) 04/23/25 14:00 04/25/25 08:25 DC 04/25/25 04:14 0.5 MG Hydromorphone HCl (DiLAUDid 1MG INJ) 1 mg TID PRN IVP SEVERE PAIN (7-10) 05/01/25 19:00 05/05/25 12:59 DC Hydromorphone HCl (DiLAUDid 1MG INJ) 1 mg TIDP PRN IVP SEVERE PAIN (7-10) 04/30/25 13:00 05/01/25 18:46 DC 04/30/25 20:44 1 MG Immune Globulin 400 ml @ 0 mls/hr Q24H IV 05/01/25 14:00 05/02/25 12:38 DC 05/01/25 16:18 37.5 MLS/HR Immune Globulin 400 ml @ 0 mls/hr Q24H IV 05/02/25 16:00 05/03/25 16:01 DC 05/02/25 16:46 37.5 MLS/HR Immune Globulin 400 ml @ 0 mls/hr Q24H IV 05/03/25 17:15 05/03/25 17:16 DC 05/03/25 17:57 37.5 MLS/HR Insulin Glargine (LANtus 100 UNITS/ML 10 ML VIAL) 10 units HS SQ 04/24/25 21:00 04/24/25 16:57 DC Insulin Glargine (LANtus 100 UNITS/ML 10 ML VIAL) 10 units ONCE STAT SQ 04/24/25 10:54 04/24/25 11:00 DC 04/24/25 11:19 10 UNITS Insulin Glargine (LANtus 100 UNITS/ML 10 ML VIAL) 15 units HS SQ 04/24/25 21:00 04/24/25 17:06 DC Insulin Glargine (LANtus 100 UNITS/ML 10 ML VIAL) 30 units DAILY SQ 05/05/25 09:00 06/04/25 08:59 05/07/25 08:12 30 UNITS Insulin Glargine (LANtus 100 UNITS/ML 10 ML VIAL) 30 units ONCE SQ 04/24/25 17:00 04/25/25 06:19 DC 04/24/25 18:16 30 UNITS Insulin Glargine (LANtus 100 UNITS/ML 10 ML VIAL) 40 units DAILY SQ 04/29/25 09:00 04/30/25 07:31 DC Insulin Glargine (LANtus 100 UNITS/ML 10 ML VIAL) 50 units DAILY SQ 04/26/25 09:00 04/29/25 06:49 DC 04/28/25 08:46 50 UNITS Insulin Glargine (LANtus 100 UNITS/ML 10 ML VIAL) 50 units DAILY SQ 04/30/25 09:00 05/05/25 07:21 DC 05/04/25 09:30 50 UNITS Insulin Human Regular (humuLIN R 100 UNIT/ML 3ML) 5 unit TIDAC SQ 04/24/25 17:00 04/24/25 17:06 DC Insulin Human Regular (humuLIN R 100 UNIT/ML 3ML) 8 unit TIDAC SQ 04/28/25 07:30 04/30/25 07:31 DC 04/30/25 06:15 8 UNIT Insulin Human Regular (humuLIN R 100 UNIT/ML 3ML) 10 unit TIDAC SQ 05/06/25 07:30 06/05/25 07:29 05/07/25 05:28 10 UNIT Insulin Human Regular (humuLIN R 100 UNIT/ML 3ML) 10 unit TIDAC SQ 04/24/25 17:00 04/25/25 06:17 DC 04/25/25 06:15 10 UNIT Insulin Human Regular (humuLIN R 100 UNIT/ML 3ML) 12 unit TIDAC SQ 05/05/25 07:30 05/05/25 22:51 DC Insulin Human Regular (humuLIN R 100 UNIT/ML 3ML) 12 unit TIDAC SQ 04/30/25 07:30 05/02/25 08:05 DC 05/02/25 06:45 12 UNIT Insulin Human Regular (humuLIN R 100 UNIT/ML 3ML) 15 unit TIDAC SQ 05/02/25 11:30 05/05/25 07:21 DC 05/04/25 17:33 15 UNIT Insulin Human Regular (humuLIN R 100 UNIT/ML 3ML) 15 unit TIDAC SQ 04/26/25 11:30 04/27/25 20:30 DC Insulin Human Regular (humuLIN R 100 UNIT/ML 3ML) 25 unit TIDAC SQ 04/25/25 07:30 04/26/25 07:58 DC 04/25/25 17:39 25 UNIT Insulin Human Regular (humuLIN R 100 UNIT/ML 3ML) INSULIN SLIDING SCAL... ACHS SQ 04/22/25 21:00 04/24/25 16:16 DC 04/24/25 11:18 8 UNIT Insulin Human Regular (humuLIN R 100 UNIT/ML 3ML) INSULIN SLIDING SCAL... ACHS SQ 05/05/25 07:30 06/04/25 07:29 05/07/25 05:29 8 UNIT Insulin Human Regular (humuLIN R 100 UNIT/ML 3ML) INSULIN SLIDING SCAL... ACHS SQ 04/24/25 16:30 04/25/25 14:09 DC 04/25/25 11:57 16 UNIT Insulin Human Regular (humuLIN R 100 UNIT/ML 3ML) INSULIN SLIDING SCAL... ACHS SQ 04/25/25 16:30 05/04/25 23:42 DC 05/04/25 20:49 6 UNIT Insulin Human Regular (humuLIN R 100 UNIT/ML 3ML) INSULIN SLIDING SCAL... Q4H SQ 04/27/25 20:30 04/28/25 09:11 DC 04/28/25 06:00 4 UNIT Lactated Ringer's 1,000 ml @ 100 mls/hr Q10H IV 04/22/25 20:00 04/23/25 10:09 DC 04/23/25 06:00 100 MLS/HR Lactulose (Constulose 20gm/ 30ml Udcup) 30 gm TID PO 04/25/25 11:00 04/30/25 09:45 DC 04/30/25 09:16 30 GM Levothyroxine Sodium (SYNTHroid 125MCG TAB) 125 mcg DAILY@0630 PO 04/25/25 06:30 05/25/25 06:29 05/07/25 05:26 125 MCG Lisinopril (Prinivil 10mg) 10 mg DAILY PO 05/02/25 09:00 06/01/25 08:59 05/07/25 08:10 10 MG Magnesium Sulfate 50 ml @ 0 mls/hr PROTOCOL PRN IV OTHER [SEE ORDER COMMENTS] 04/22/25 20:00 05/22/25 19:59 Methylprednisolone Sodium Succinate (Solu-medROL 125MG) 125 mg Q6H IVP 04/23/25 08:00 04/28/25 09:10 DC 04/25/25 09:45 125 MG Metoprolol Succinate (TopROL XL) 50 mg AM PO 04/25/25 09:00 05/25/25 08:59 05/07/25 08:10 50 MG Ondansetron HCl (zoFRAN 4MG INJ) 4 mg Q6H PRN IV NAUSEA/VOMITING 04/22/25 20:00 05/22/25 19:59 04/22/25 20:10 4 MG Pantoprazole Sodium (PROTonix 40MG INJ) 40 mg DAILY IVP 04/24/25 10:00 05/24/25 09:59 05/07/25 08:09 40 MG Pharmacy Profile Note (Pharmacy Communication) 1 each ONCE MISC 05/01/25 08:00 04/30/25 16:52 DC Pharmacy Profile Note (Pharmacy Communication) 1 each ONCE MISC 05/03/25 12:00 05/03/25 12:58 DC Potassium Chloride 100 ml @ 100 mls/hr AD PRN IV POTASSIUM PROTOCOL 04/22/25 20:00 05/22/25 19:59 Potassium Chloride (K-Dur/Klor-Con 20meq) 20 meq AD PRN PO POTASSIUM PROTOCOL 04/22/25 20:00 05/22/25 19:59 05/03/25 13:10 20 MEQ Potassium Chloride (KCl 10% Elixir 20meq/15ml) 20 meq AD PRN PO POTASSIUM PROTOCOL 04/22/25 20:00 05/22/25 19:59 Pramipexole Dihydrochloride (miraPEX 0.25MG TAB) 0.5 mg HS PO 04/24/25 21:00 05/24/25 20:59 05/06/25 20:22 0.5 MG Pregabalin (LYRica 25MG) 25 mg BID PO 05/01/25 21:00 05/05/25 07:22 DC 05/04/25 09:22 25 MG Pregabalin ([id number]) 75 mg BID PO 04/24/25 21:00 04/24/25 14:49 DC Sodium Chloride 500 ml @ 0 mls/hr Q0M IV 04/25/25 11:00 05/25/25 10:59 Sodium Zirconium Cyclosilicate (Lokelma 10gm Powder) 10 gm TID PO 04/23/25 21:00 04/23/25 14:11 DC Tramadol HCl (UltRAM) 50 mg Q6H PRN PO MODERATE PAIN (4-6) 04/24/25 22:30 04/29/25 22:29 DC 04/28/25 13:55 50 MG Trimethoprim/ Sulfamethoxazole (BactRIM DS) 1 tab BID PO 04/25/25 21:00 04/26/25 14:50 DC 04/25/25 21:51 1 TAB Vancomycin HCl 250 ml @ 125 mls/hr Q12H IV 04/24/25 23:00 04/25/25 12:36 DC 04/25/25 11:43 125 MLS/HR Vancomycin HCl 250 ml @ 125 mls/hr Q12H IV 04/26/25 15:30 04/28/25 03:13 DC 04/27/25 15:22 125 MLS/HR Vancomycin HCl 250 ml @ 125 mls/hr Q12H IV 04/28/25 15:30 04/28/25 18:53 DC Vancomycin HCl 250 ml @ 125 mls/hr Q12H IV 04/28/25 20:00 05/02/25 20:34 DC 05/02/25 10:21 125 MLS/HR Vancomycin HCl 250 ml @ 125 mls/hr Q12H9 IV 05/04/25 21:00 05/14/25 20:59 05/07/25 08:10 125 MLS/HR Vancomycin HCl (Vancomycin Protocol) 1 each AD IV 04/24/25 10:30 04/25/25 12:36 DC Vancomycin HCl (Vancomycin Protocol) 1 each AD IV 04/26/25 15:00 05/10/25 14:59 Venlafaxine HCl (EffEXOR XR 37.5mg CAP) 37.5 mg DAILY PO 04/24/25 16:00 05/05/25 11:18 DC 05/04/25 09:21 37.5 MG Venlafaxine HCl (EffEXOR XR 37.5mg CAP) 37.5 mg DAILY PO 04/25/25 09:00 04/24/25 14:50 DC Venlafaxine HCl (EffEXOR XR 37.5mg CAP) 37.5 mg HS PO 05/05/25 21:00 06/04/25 20:59 05/06/25 20:22 37.5 [place] [address] IMAGING REPORT Signed PATIENT: LUCÍA CATALAN MR#: [id number] : 1970 SEX: F AGE: 54 LOCATION: 3[facility] ORDER 2 STATUS: ADM IN REPORT#: [id number] SERVICE REASON: SOB, Elevated D-dimer ORDERING PHYSICIAN: GLORIA BORDEN MD PROCEDURE: CXR1VW - CHEST 1VW EXAM: CR Chest, 1 View. CLINICAL HISTORY: SOB, Elevated D-dimer COMPARISON: Radiograph dated May 02, 2025 FINDINGS: Right PICC terminates overlying the SVC. Bibasilar atelectasis. Lungs are otherwise clear. No pleural effusion or pneumothorax. Heart size is stable. Mild central pulmonary vascular congestion. IMPRESSION: 1. No acute cardiopulmonary findings. 2. Right PICC line with appropriate positioning. 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 Suspected Endocarditis, RAMAN deferred due to bleeding risks; unable to rule out endocarditis Status post nephrostomy tube Renate intertrigo Infectious spondylodiscitis L2-L3 Sepsis, unable to determine POA Acute hypoxic hypercapnic respiratory failure, not POA, resolved AMS due to suspected steroid induced psychosis or hepatic encephalopathy, not POA, resolved Hyperammonemia due to cirrhosis, resolved Intractable low back pain due to spinal stenosis POA Acute urinary tract infection due to MRSA POA Hypervolemic hyponatremia POA Chronic anemia POA Hyponatremia POA Acute kidney injury on renal insufficiency POA Hyperglycemia due to uncontrolled diabetes POA Hypocalcemia POA Cirrhotic liver with splenomegaly consistent with portal hypertension per CT POA Esophageal varices Renal parenchymal disease per CT POA Hypothyroidism POA Hyperlipidemia POA Hypertension POA Anxiety disorder POA Depression POA Restless leg syndrome POA Suspected obstructive sleep apnea untreated POA Morbid obesity POA PLAN: Persistent MRSA bacteremia Osteomyelitis of L2-L3 POA Blood cultures remain positive for gram-positive cocci consistent with MRSA. Blood cultures sent after 4 days of gentamicin, Preliminary reports suggested Gram Positive Cocci PICC line has been removed Currently receiving vancomycin (Day 12) and gentamicin (Day 5) per Infectious Disease (ID) recommendations. Vancomycin trough level has decreased from 18.1 to 0.2. Monitor vancomycin trough level Maintain contact precautions for infection control. Repeat blood cultures per Infectious Disease protocol to monitor clearance of bacteremia. Patient will require a 6-week course of IV antibiotics; case management will assist with arranging appropriate placement for long-term IV therapy. Thrombocytopenia due to ITP DIC panel workup As per Dr Lorenzo, trying to get her Promacta when available (medicine that raises the platelets) PT is 17.2, INR 1.71, APTT 36.3 and Fibrinogen 119. D-dimer is 7184. Plan for V/Q scan, CTPA, US Venous Doppler Platelets has been transfused, but platelets is still decreasing 16K. Continue to follow Hematology recommendations for ongoing management of thrombocytopenia. Monitor platelet counts daily. Monitor for bleeding or thrombotic complications. Altered Mental Status due to Hepatic Encephalopathy or steroids induced psychosis, resolved Monitor ammonia levels, mental status, and signs of worsening encephalopathy. Monitor neuro status and reassess mental status regularly with steroid adjustments. Intractable lower back pain, resolving Per Dr. Sanchez, possible diagnosis of discitis and osteomyelitis at L2-L3 along with psoas inflammation. Continue multimodal pain management: acetaminophen, topical agents Pregabalin will be discontinued due to concern for possible medication-induced slurred speech. CT head showed no evidence of acute intracranial abnormalities. Neuro checks q4 Acute UTI, resolved Monitor for signs of urosepsis Encourage hydration and bladder care Hyponatremia, resolved Monitor serum Na closely; consider fluid restriction if dilutional. Renate intertrigo Patient is improving significantly The patient was given fluconazole 150 mg 1 dose today, gradually resolving Cirrhosis with portal hypertension Fecal occult blood test positive Liver enzymes are elevated with total bilirubin of 1.6, AST 166, ALT 136 and ALP 358. Monitor for decompensation: encephalopathy, ascites, variceal bleeding. Consider beta sergio for variceal prophylaxis. Monitor LFTs, INR, and ammonia Her MELD- Na score is 24 points, 14-15% estimated 90 day mortality Hyperglycemia (Uncontrolled Diabetes) Decrease Lantus to 30 units daily as per endocrinology recommendations, and continue for regular insulin 12 units qac before meals. Decrease high dose SSI to medium dose SSI Monitor blood glucose QID Educate on diet and insulin compliance; monitor for DKA if concern. Correct electrolytes accordingly. Chronic anemia H/o esophageal varices due to cirrhosis with portal hypertension Per GI, hold off on EGD given no overt GI bleeding and stable hemoglobin Monitor trends, H&H daily Avoid transfusion unless symptomatic or Hgb <7. We will order morning labs. Further orders per hospitalization course. ATTESTATION BY PHYSICIAN I have seen and examined the patient. I reviewed the documentation, medical decision making, and treatment plan as noted by the resident provider above. I agree with the findings and plan of care. Curtis Sanchez MD, SUZIT MD May 07, 2025 10:01
--- NOTE | 2025-05-07 10:21 | PN ---
GASTROENTEROLOGY PROGRESS NOTE Date of Visit: May 07, 2025 Time of Visit: 10:20 Events / Notes: [ ] Review of Systems: CONSTITUTIONAL: No malaise or change in sensation of wellbeing. ENMT: No rhinorrhea, otorrhea, sinus pain, ear ache. CARDIOVASCULAR: No angina, palpitations, orthopnea or paroxysmal dyspnea. RESPIRATORY: No SOB. GASTROINTESTINAL: No abdominal pain, nausea, vomiting, diarrhea, hematemesis, melena or change in the patient's habitual bowel movements consistency/number. GENITOURINARY: No dysuria, hematuria or change in bladder continence. MUSCULOSKELETAL: No new muscle pain or decrease in muscular strength. No new joint swelling, redness or tenderness. SKIN: No new rash. Physical Exam: GEN: Awake, alert, oriented in person, time and place, and in no acute distress. HEENT: No sinus tenderness. Tympanic membranes were not examined. No rhinorrhea. Oral pharyngeal mucosa is pink, moist and within normal limits. Neck is supple with no cervical lymphadenopathy, thyromegaly or JVD. CHEST: Inspection, palpation and percussion of the chest were unremarkable. Lung auscultation revealed normal breath sounds bilaterally. CARDIAC: PMI is within normal limits. Heart sounds are regular. Normal S1, S2. No gallop or murmur. ABD: Soft, non-tender and not distended. No peritoneal signs on palpation. No organomegaly. Normal bowel sounds. EXT: No cyanosis or clubbing. No edema. SKIN: Intact. No rashes. JOINTS: No evidence of synovitis or acute arthritis. NEURO: Alert and oriented to name, place and person. Cranial nerve examination is unremarkable. No focal motor deficits. Normal speech. Gait is normal. Strength is normal. Vital Signs (last 8hr) Date Time Temp Pulse Resp B/P (MAP) Pulse Ox O2 Delivery O2 Flow Rate FiO2 05/07/25 08:00 97.3 64 20 141/57 96 Room Air 21 05/07/25 03:03 97.5 56 20 133/46 100 Room Air 05/07/25 02:24 91 Room Air* 0 21 Laboratory: [ ] Laboratory: Test 05/07/25 05:35 05/07/25 04:57 05/06/25 15:45 05/06/25 15:00 Range/Units White Blood Count 3.0 L 4.8-10.8 K/uL Red Blood Count 3.24 L 4.00-5.50 MIL/uL Hemoglobin 8.4 L 12.0-16.0 g/dL Hematocrit 26.0 L 36-48 % Mean Corpuscular Volume 80.2 79-99 fL Mean Corpuscular Hemoglobin 25.9 L 27.0-33.0 pg Mean Corpuscular Hemoglobin Concent 32.3 32.0-36.0 g/dL Red Cell Distribution Width 23.5 H 11.0-15.5 % Platelet Count 16 L 130-400 K/uL Mean Platelet Volume 7.5-10.5 fL Segmented Neutrophils % 97 H 40-70 % Lymphocytes % (Manual) 2 L 22-44 % Monocytes % (Manual) 1 L 2-9 % Nucleated Red Blood Cells 0.0 0.0-0.19 % Differential Comment MANUAL DIFFERENTIAL White Cell Morphology Comment Platelet Morphology Comment MARKED DECREASE Red Blood Cell Morphology See comments D-Dimer Quantitative (PE/DVT) 7184 *H 0-500 ng/mL Sodium Level 136 136-145 mmol/L Potassium Level 4.9 3.5-5.1 mmol/L Chloride Level 104 101-111 mmol/L Carbon Dioxide Level 26 21-32 mmol/L Blood Urea Nitrogen 35 H 7-18 mg/dL Creatinine 1.2 H 0.5-1.0 mg/dL Glomerular Filtration Rate Calc 53 >90 mL/min Random Glucose 261 H 70-105 mg/dL Total Calcium 8.0 L 8.5-10.1 mg/dL Total Bilirubin 1.9 H 0.2-1.0 mg/dL Aspartate Amino Transf (AST/SGOT) 120 H 10-37 U/L Alanine Aminotransferase (ALT/SGPT) 125 H 12-78 U/L Alkaline Phosphatase 371 H 50-136 U/L Total Protein 7.5 6.0-8.3 g/dL Albumin 1.4 L 3.5-5.0 g/dL Whole Blood Glucose 245 H 70-110 MG/DL Bedside Glucose Comment Notified Nurse Gentamicin Level Peak 0.2 L 4.0-8.0 mcg/mL Test 05/06/25 13:25 05/06/25 07:40 05/06/25 05:23 Range/Units Gentamicin Level Trough 0.3 0.0-2.0 mcg/mL Vancomycin Level Trough 18.1 # 10.0-20.0 UG/ML Immature Granulocyte % (Auto) 0.6 0-1 % Neutrophils (%) (Auto) 87.2 H 40.0-77.0 % Lymphocytes (%) (Auto) 6.7 L 21.0-51.0 % Monocytes (%) (Auto) 5.5 3.0-13.0 % Eosinophils (%) (Auto) 0.0 0.0-8.0 % Basophils (%) (Auto) 0.0 0.0-5.0 % Neutrophils # (Auto) 4.5 1.8-7.7 K/uL Lymphocytes # (Auto) 0.3 L 1.0-4.8 K/uL Monocytes # (Auto) 0.3 0.1-1.0 K/uL Eosinophils # (Auto) 0.00 0.00-0.70 K/uL Basophils # (Auto) 0.00 0.00-0.20 K/uL Absolute Immature Granulocyte (auto 0.03 0-1 K/uL C-Reactive Protein, Quantitative 61.50 H 0.5-3.0 mg/L Current Medications Medications (Trade) Dose Ordered Sig/Roberth Route PRN Reason Start Time Stop Time Status Last Admin Dose Admin Acetaminophen (TYLenol 325MG TAB) 650 mg Q4H PRN PO MILD PAIN (1-3) 04/22/25 20:00 05/22/25 19:59 04/30/25 06:17 650 MG Acetaminophen (TYLenol 325MG TAB) 650 mg Q6H PRN PO TEMPERATURE GREATER THAN 101.5 04/22/25 20:00 05/22/25 19:59 04/23/25 10:02 650 MG Acetaminophen/ Hydrocodone Bitart (NORco 5/325MG) 1 tab Q4H PRN PO MODERATE PAIN (4-6) 04/30/25 12:00 05/05/25 11:59 DC 04/30/25 22:07 1 TAB Atorvastatin Calcium (LIPItor 20MG) 20 mg HS PO 04/24/25 21:00 05/24/25 20:59 05/06/25 20:22 20 MG Ceftriaxone Sodium 1 gm/ Sodium Chloride 50 ml @ 100 mls/hr BID IV 04/22/25 21:00 04/22/25 19:59 DC Ceftriaxone Sodium (ROCEphine 1G INJ) 1 gm BID IVPB 04/22/25 21:00 04/22/25 20:44 DC Ceftriaxone Sodium (ROCEphine 1G INJ) 1 gm BID IVPB 04/23/25 09:00 04/25/25 12:36 DC 04/25/25 09:44 1 GM Dexamethasone Sodium Phosphate (dexaMETHasone 4MG/ML 1ML VIAL) 20 mg ONCALL IV 05/01/25 15:30 05/03/25 15:31 DC 05/02/25 15:41 20 MG Dexamethasone Sodium Phosphate (dexaMETHasone 4MG/ML 1ML VIAL) 20 mg ONCALL IV 05/03/25 17:15 05/03/25 17:16 DC 05/03/25 17:23 20 MG Dexamethasone Sodium Phosphate (dexaMETHasone 4MG/ML 1ML VIAL) 20 mg ONCE PRN IV PRE-MED 05/01/25 15:00 05/01/25 15:05 DC Dexmedetomidine/ Sodium Chloride (PRECEdex 200MCG/ 50ML-NS) 200 mcg PROTOCOL IV 04/26/25 12:00 04/26/25 14:54 DC Dexmedetomidine/ Sodium Chloride (PRECEdex 400MCG/ 100ML-NS) 400 mcg PROTOCOL PRN IV ANXIETY/AGITATION 04/26/25 19:30 05/01/25 12:45 DC 04/27/25 23:31 400 MCG Dexmedetomidine/ Sodium Chloride (PRECEdex 400MCG/ 100ML-NS) 400 mcg PROTOCOL STAT IV 04/26/25 14:53 04/26/25 14:58 DC 04/26/25 15:18 400 MCG Dextrose 1,000 ml @ 75 mls/hr [id number] IV 04/26/25 12:00 04/30/25 09:36 DC 04/29/25 04:27 150 MLS/HR Dextrose (D50w) 50 ml AD PRN IV HYPOGLYCEMIA PROTOCOL 04/22/25 20:00 05/22/25 19:59 Diphenhydramine HCl (BENAdryl INJ) 25 mg ONCALL IVP 05/01/25 15:30 05/03/25 15:31 DC 05/02/25 15:41 25 MG Diphenhydramine HCl (BENAdryl INJ) 25 mg ONCALL IVP 05/03/25 17:15 05/03/25 17:16 DC 05/03/25 17:22 25 MG Diphenhydramine HCl (BENAdryl INJ) 25 mg ONCE PRN IVP PRE-MED 05/01/25 15:00 05/01/25 15:06 DC Famotidine (Pepcid 20mg Tab) 20 mg DAILY PO 04/23/25 09:00 04/24/25 09:48 DC 04/23/25 09:33 20 MG Gabapentin (NEURontin 300 MG CAP) 300 mg BID PO 04/24/25 21:00 04/28/25 09:10 DC 04/25/25 21:51 300 MG Gentamicin Sulfate/Sodium Chloride 100 ml @ 200 mls/hr Q24H IV 05/03/25 14:00 05/13/25 13:59 05/06/25 16:22 200 MLS/HR Glucagon (Glucagon 1mg Kit) 1 mg AD PRN IM HYPOGLYCEMIA PROTOCOL 04/22/25 20:00 05/22/25 19:59 Heparin Sodium (Porcine) (HEParin 5,000 UNIT VIAL) 5,000 unit Q8H SQ 04/25/25 09:00 04/25/25 08:40 DC Hydromorphone HCl (DiLAUDid 0.5MG INJ) 0.5 mg BIDPRN PRN IVP SEVERE PAIN (7-10) 04/25/25 19:00 04/30/25 11:59 DC 04/29/25 23:31 0.5 MG Hydromorphone HCl (DiLAUDid 0.5MG INJ) 0.5 mg Q6H PRN IVP SEVERE PAIN (7-10) 04/23/25 14:00 04/25/25 08:25 DC 04/25/25 04:14 0.5 MG Hydromorphone HCl (DiLAUDid 1MG INJ) 1 mg TID PRN IVP SEVERE PAIN (7-10) 05/01/25 19:00 05/05/25 12:59 DC Hydromorphone HCl (DiLAUDid 1MG INJ) 1 mg TIDP PRN IVP SEVERE PAIN (7-10) 04/30/25 13:00 05/01/25 18:46 DC 04/30/25 20:44 1 MG Immune Globulin 400 ml @ 0 mls/hr Q24H IV 05/01/25 14:00 05/02/25 12:38 DC 05/01/25 16:18 37.5 MLS/HR Immune Globulin 400 ml @ 0 mls/hr Q24H IV 05/02/25 16:00 05/03/25 16:01 DC 05/02/25 16:46 37.5 MLS/HR Immune Globulin 400 ml @ 0 mls/hr Q24H IV 05/03/25 17:15 05/03/25 17:16 DC 05/03/25 17:57 37.5 MLS/HR Insulin Glargine (LANtus 100 UNITS/ML 10 ML VIAL) 10 units HS SQ 04/24/25 21:00 04/24/25 16:57 DC Insulin Glargine (LANtus 100 UNITS/ML 10 ML VIAL) 10 units ONCE STAT SQ 04/24/25 10:54 04/24/25 11:00 DC 04/24/25 11:19 10 UNITS Insulin Glargine (LANtus 100 UNITS/ML 10 ML VIAL) 15 units HS SQ 04/24/25 21:00 04/24/25 17:06 DC Insulin Glargine (LANtus 100 UNITS/ML 10 ML VIAL) 30 units DAILY SQ 05/05/25 09:00 06/04/25 08:59 05/07/25 08:12 30 UNITS Insulin Glargine (LANtus 100 UNITS/ML 10 ML VIAL) 30 units ONCE SQ 04/24/25 17:00 04/25/25 06:19 DC 04/24/25 18:16 30 UNITS Insulin Glargine (LANtus 100 UNITS/ML 10 ML VIAL) 40 units DAILY SQ 04/29/25 09:00 04/30/25 07:31 DC Insulin Glargine (LANtus 100 UNITS/ML 10 ML VIAL) 50 units DAILY SQ 04/26/25 09:00 04/29/25 06:49 DC 04/28/25 08:46 50 UNITS Insulin Glargine (LANtus 100 UNITS/ML 10 ML VIAL) 50 units DAILY SQ 04/30/25 09:00 05/05/25 07:21 DC 05/04/25 09:30 50 UNITS Insulin Human Regular (humuLIN R 100 UNIT/ML 3ML) 5 unit TIDAC SQ 04/24/25 17:00 04/24/25 17:06 DC Insulin Human Regular (humuLIN R 100 UNIT/ML 3ML) 8 unit TIDAC SQ 04/28/25 07:30 04/30/25 07:31 DC 04/30/25 06:15 8 UNIT Insulin Human Regular (humuLIN R 100 UNIT/ML 3ML) 10 unit TIDAC SQ 05/06/25 07:30 06/05/25 07:29 05/07/25 05:28 10 UNIT Insulin Human Regular (humuLIN R 100 UNIT/ML 3ML) 10 unit TIDAC SQ 04/24/25 17:00 04/25/25 06:17 DC 04/25/25 06:15 10 UNIT Insulin Human Regular (humuLIN R 100 UNIT/ML 3ML) 12 unit TIDAC SQ 05/05/25 07:30 05/05/25 22:51 DC Insulin Human Regular (humuLIN R 100 UNIT/ML 3ML) 12 unit TIDAC SQ 04/30/25 07:30 05/02/25 08:05 DC 05/02/25 06:45 12 UNIT Insulin Human Regular (humuLIN R 100 UNIT/ML 3ML) 15 unit TIDAC SQ 05/02/25 11:30 05/05/25 07:21 DC 05/04/25 17:33 15 UNIT Insulin Human Regular (humuLIN R 100 UNIT/ML 3ML) 15 unit TIDAC SQ 04/26/25 11:30 04/27/25 20:30 DC Insulin Human Regular (humuLIN R 100 UNIT/ML 3ML) 25 unit TIDAC SQ 04/25/25 07:30 04/26/25 07:58 DC 04/25/25 17:39 25 UNIT Insulin Human Regular (humuLIN R 100 UNIT/ML 3ML) INSULIN SLIDING SCAL... ACHS SQ 04/22/25 21:00 04/24/25 16:16 DC 04/24/25 11:18 8 UNIT Insulin Human Regular (humuLIN R 100 UNIT/ML 3ML) INSULIN SLIDING SCAL... ACHS SQ 05/05/25 07:30 06/04/25 07:29 05/07/25 05:29 8 UNIT Insulin Human Regular (humuLIN R 100 UNIT/ML 3ML) INSULIN SLIDING SCAL... ACHS SQ 04/24/25 16:30 04/25/25 14:09 DC 04/25/25 11:57 16 UNIT Insulin Human Regular (humuLIN R 100 UNIT/ML 3ML) INSULIN SLIDING SCAL... ACHS SQ 04/25/25 16:30 05/04/25 23:42 DC 05/04/25 20:49 6 UNIT Insulin Human Regular (humuLIN R 100 UNIT/ML 3ML) INSULIN SLIDING SCAL... Q4H SQ 04/27/25 20:30 04/28/25 09:11 DC 04/28/25 06:00 4 UNIT Lactated Ringer's 1,000 ml @ 100 mls/hr Q10H IV 04/22/25 20:00 04/23/25 10:09 DC 04/23/25 06:00 100 MLS/HR Lactulose (Constulose 20gm/ 30ml Udcup) 30 gm TID PO 04/25/25 11:00 04/30/25 09:45 DC 04/30/25 09:16 30 GM Levothyroxine Sodium (SYNTHroid 125MCG TAB) 125 mcg DAILY@0630 PO 04/25/25 06:30 05/25/25 06:29 05/07/25 05:26 125 MCG Lisinopril (Prinivil 10mg) 10 mg DAILY PO 05/02/25 09:00 06/01/25 08:59 05/07/25 08:10 10 MG Magnesium Sulfate 50 ml @ 0 mls/hr PROTOCOL PRN IV OTHER [SEE ORDER COMMENTS] 04/22/25 20:00 05/22/25 19:59 Methylprednisolone Sodium Succinate (Solu-medROL 125MG) 125 mg Q6H IVP 04/23/25 08:00 04/28/25 09:10 DC 04/25/25 09:45 125 MG Metoprolol Succinate (TopROL XL) 50 mg AM PO 04/25/25 09:00 05/25/25 08:59 05/07/25 08:10 50 MG Ondansetron HCl (zoFRAN 4MG INJ) 4 mg Q6H PRN IV NAUSEA/VOMITING 04/22/25 20:00 05/22/25 19:59 04/22/25 20:10 4 MG Pantoprazole Sodium (PROTonix 40MG INJ) 40 mg DAILY IVP 04/24/25 10:00 05/24/25 09:59 05/07/25 08:09 40 MG Pharmacy Profile Note (Pharmacy Communication) 1 each ONCE MISC 05/01/25 08:00 04/30/25 16:52 DC Pharmacy Profile Note (Pharmacy Communication) 1 each ONCE MISC 05/03/25 12:00 05/03/25 12:58 DC Potassium Chloride 100 ml @ 100 mls/hr AD PRN IV POTASSIUM PROTOCOL 04/22/25 20:00 05/22/25 19:59 Potassium Chloride (K-Dur/Klor-Con 20meq) 20 meq AD PRN PO POTASSIUM PROTOCOL 04/22/25 20:00 05/22/25 19:59 05/03/25 13:10 20 MEQ Potassium Chloride (KCl 10% Elixir 20meq/15ml) 20 meq AD PRN PO POTASSIUM PROTOCOL 04/22/25 20:00 05/22/25 19:59 Pramipexole Dihydrochloride (miraPEX 0.25MG TAB) 0.5 mg HS PO 04/24/25 21:00 05/24/25 20:59 05/06/25 20:22 0.5 MG Pregabalin (LYRica 25MG) 25 mg BID PO 05/01/25 21:00 05/05/25 07:22 DC 05/04/25 09:22 25 MG Pregabalin ([id number]) 75 mg BID PO 04/24/25 21:00 04/24/25 14:49 DC Sodium Chloride 500 ml @ 0 mls/hr Q0M IV 04/25/25 11:00 05/25/25 10:59 Sodium Zirconium Cyclosilicate (Lokelma 10gm Powder) 10 gm TID PO 04/23/25 21:00 04/23/25 14:11 DC Tramadol HCl (UltRAM) 50 mg Q6H PRN PO MODERATE PAIN (4-6) 04/24/25 22:30 04/29/25 22:29 DC 04/28/25 13:55 50 MG Trimethoprim/ Sulfamethoxazole (BactRIM DS) 1 tab BID PO 04/25/25 21:00 04/26/25 14:50 DC 04/25/25 21:51 1 TAB Vancomycin HCl 250 ml @ 125 mls/hr Q12H IV 04/24/25 23:00 04/25/25 12:36 DC 04/25/25 11:43 125 MLS/HR Vancomycin HCl 250 ml @ 125 mls/hr Q12H IV 04/26/25 15:30 04/28/25 03:13 DC 04/27/25 15:22 125 MLS/HR Vancomycin HCl 250 ml @ 125 mls/hr Q12H IV 04/28/25 15:30 04/28/25 18:53 DC Vancomycin HCl 250 ml @ 125 mls/hr Q12H IV 04/28/25 20:00 05/02/25 20:34 DC 05/02/25 10:21 125 MLS/HR Vancomycin HCl 250 ml @ 125 mls/hr Q12H9 IV 05/04/25 21:00 05/14/25 20:59 05/07/25 08:10 125 MLS/HR Vancomycin HCl (Vancomycin Protocol) 1 each AD IV 04/24/25 10:30 04/25/25 12:36 DC Vancomycin HCl (Vancomycin Protocol) 1 each AD IV 04/26/25 15:00 05/10/25 14:59 Venlafaxine HCl (EffEXOR XR 37.5mg CAP) 37.5 mg DAILY PO 04/24/25 16:00 05/05/25 11:18 DC 05/04/25 09:21 37.5 MG Venlafaxine HCl (EffEXOR XR 37.5mg CAP) 37.5 mg DAILY PO 04/25/25 09:00 04/24/25 14:50 DC Venlafaxine HCl (EffEXOR XR 37.5mg CAP) 37.5 mg HS PO 05/05/25 21:00 06/04/25 20:59 05/06/25 20:22 37.5 MG Diagnostics / Radiology: [COPY/PASTE HERE IF NO REPORTS PLEASE DELETE SECTION] Assessment: Decompensated cirrhosis HTN Esophageal varies Plan: Patient with known cirrhosis however lost to follow-up. Hold off on EGD given no overt GI bleeding and stable hemoglobin We will monitor closely BEHZAD [employer] May 07, 2025 10:21
--- NOTE | 2025-05-07 10:21 | HMCIMG ---
EXAM: CR Chest, 1 View. CLINICAL HISTORY: SOB, Elevated D-dimer COMPARISON: Radiograph dated May 02, 2025 FINDINGS: Right PICC terminates overlying the SVC. Bibasilar atelectasis. Lungs are otherwise clear. No pleural effusion or pneumothorax. Heart size is stable. Mild central pulmonary vascular congestion. IMPRESSION: 1. No acute cardiopulmonary findings. 2. Right PICC line with appropriate positioning. /[place]
--- NOTE | 2025-05-07 12:46 | PN ---
FOLLOWUP PROGRESS NOTE SUBJECTIVE: A 54-year-old female who initially presented with persistent bacteremia. The patient continues with the antibiotics. Workup is consistent with osteomyelitis. She has had acute on chronic renal failure in the hospital. Creatinine has been elevated and the patient is being seen for all of the above. The patient also with evidence of obstructive uropathy, status post nephrostomy tube placement. The patient is being seen as a followup visit for all of the above. REVIEW OF SYSTEMS: CONSTITUTIONAL: She is feeling somewhat improved. HEENT: No change in vision. No change in hearing. CARDIOVASCULAR: There is no current chest pain or palpitations. PULMONARY: No shortness of breath. GASTROINTESTINAL: The patient is tolerating a diet. MUSCULOSKELETAL: Complains of weakness. PHYSICAL EXAMINATION: VITAL SIGNS: Blood pressure 134/47, pulse 70s. Afebrile. GENERAL: Chronically ill female, much older than appearing. HEENT: Head is atraumatic. Pupils are equal, roving to light. Oropharynx is without exudate. Nares are clear. NECK: There is no JVP. There is no thyromegaly. No masses. CARDIOVASCULAR: Regular. There is no S3 or S4 gallop. LUNGS: Coarse with equal thoracic movement. ABDOMEN: Soft, nondistended, nontender. EXTREMITIES: There is no clubbing, no cyanosis. NEUROLOGICAL: She is awake. She is at her baseline. LABORATORY DATA: Hemoglobin 8.4, hematocrit 26. BUN 35, creatinine 1.2. IMPRESSION: * Acute on chronic renal dysfunction. * Persistent bacteremia with osteomyelitis. * Diabetes mellitus. * History of osteomyelitis. PLAN: The patient remains on the IV antibiotics. Workup is ongoing per Infectious Disease. The patient's creatinine has remained fairly stable. Blood pressure is under adequate control. She is encouraged to participate with therapy. The patient is being seen by case management for final disposition. We will follow closely. TID: [id number] RECEIPT: [id number]
--- NOTE | 2025-05-07 14:46 | NUR ---
PICCLINE PICCLINE to right upper arm removed per MD orders, tip of catheter intact, no active bleeding noted, pressure applied to site, pressure dressing applied to site, denies c/o pain or discomfort, tolerating removal well.
--- NOTE | 2025-05-07 15:16 | PN ---
SUBJECTIVE: The patient remains stable from her diabetes, from her sepsis, pending going to [facility]. REVIEW OF SYSTEMS: Negative. PHYSICAL EXAMINATION: GENERAL: Shows a pleasant woman. VITAL SIGNS: Blood pressure 133/46, pulse 56, respiratory rate 20. CHEST: Clear, soft. EXTREMITIES: . IMPRESSION: * Poor response to steroids and IgG. * Cirrhosis of liver. * Hepatic encephalopathy, previously. * MRSA. * Sepsis. * Diskitis. * L2-L3 osteomyelitis from the infection. * Right hydronephrosis. * Diabetes. * Thrombocytopenia. PLAN: The patient can be transferred to [facility] as soon as accepted. As I said, I am trying to get her Promacta, medicine that raises the platelets, the hospital does not have this. We can probably get this from my office. I will work on it more today. TID: [id number] RECEIPT: [id number]
--- NOTE | 2025-05-07 16:09 | PN ---
INFECTIOUS DISEASE PROGRESS NOTE Date of Service: May 07, 2025 SUBJECTIVE: Patient was seen and examined at bedside in room 314. Patient is awake, alert and oriented x3. The blood culture repeated yesterday continues positive with Gram-positive cocci. We will remove the PICC line and repeat blood cultures in a.m. Remains afebrile, temperature is 97.3. We will continue on Vancomycin and gentamicin. PHYSICAL EXAM EYES: Anicteric. Pupils equal and reactive. HENT: No oral thrush seen, moist Oral mucosa NECK: Supple, no JVD or thyromegaly. LUNGS: Good air entry. No rales, no rhonchi. CARDIOVASCULAR: S1, S2 regular. No murmur heard. ABDOMEN: Soft, non tender, bowel sounds present, no organomegaly. SKIN: No rashes, no swelling. LYMPHATICS: No peripheral lymphadenopathy MUSCULOSKELETAL: No joint swelling, erythema or tenderness. EXTREMITIES: No cyanosis or clubbing. Generalized weakness. BACK: No deformity, no pressure ulcer. Right nephrostomy tube. GENITOURINARY: No dysuria or hematuria, Nolasco catheter. Vital Sign (Last 12 Hours) 05/07/25 05/07/25 05/07/25 08:00 12:00 13:47 Temp 97.3 97.5 Pulse 64 74 Resp 20 20 B/P (MAP) 141/57 134/47 Pulse Ox 96 100 96 O2 Delivery Room Air Room Air Room Air* O2 Flow Rate 0 FiO2 21 21 21 Intake & Output (last 24hrs) 05/06/25 05/06/25 05/07/25 15:00 23:00 07:00 Intake Total 850.0 ml Output Total 750 ml 1300 ml Balance -750 ml -450.0 ml LABS: Laboratory: Test 05/07/25 15:20 05/07/25 10:01 05/07/25 05:35 05/06/25 15:45 Range/Units Whole Blood Glucose 304 H 70-110 MG/DL Stool Occult Blood POSITIVE H NEGATIVE White Blood Count 3.0 L 4.8-10.8 K/uL Red Blood Count 3.24 L 4.00-5.50 MIL/uL Hemoglobin 8.4 L 12.0-16.0 g/dL Hematocrit 26.0 L 36-48 % Mean Corpuscular Volume 80.2 79-99 fL Mean Corpuscular Hemoglobin 25.9 L 27.0-33.0 pg Mean Corpuscular Hemoglobin Concent 32.3 32.0-36.0 g/dL Red Cell Distribution Width 23.5 H 11.0-15.5 % Platelet Count 16 L 130-400 K/uL Mean Platelet Volume 7.5-10.5 fL Segmented Neutrophils % 97 H 40-70 % Lymphocytes % (Manual) 2 L 22-44 % Monocytes % (Manual) 1 L 2-9 % Nucleated Red Blood Cells 0.0 0.0-0.19 % Differential Comment MANUAL DIFFERENTIAL White Cell Morphology Comment Platelet Morphology Comment MARKED DECREASE Red Blood Cell Morphology See comments D-Dimer Quantitative (PE/DVT) 7184 *H 0-500 ng/mL Sodium Level 136 136-145 mmol/L Potassium Level 4.9 3.5-5.1 mmol/L Chloride Level 104 101-111 mmol/L Carbon Dioxide Level 26 21-32 mmol/L Blood Urea Nitrogen 35 H 7-18 mg/dL Creatinine 1.2 H 0.5-1.0 mg/dL Glomerular Filtration Rate Calc 53 >90 mL/min Random Glucose 261 H 70-105 mg/dL Total Calcium 8.0 L 8.5-10.1 mg/dL Total Bilirubin 1.9 H 0.2-1.0 mg/dL Aspartate Amino Transf (AST/SGOT) 120 H 10-37 U/L Alanine Aminotransferase (ALT/SGPT) 125 H 12-78 U/L Alkaline Phosphatase 371 H 50-136 U/L Total Protein 7.5 6.0-8.3 g/dL Albumin 1.4 L 3.5-5.0 g/dL Bedside Glucose Comment Notified Nurse Test 05/06/25 15:00 05/06/25 13:25 05/06/25 07:40 05/06/25 05:23 Range/Units Gentamicin Level Peak 0.2 L 4.0-8.0 mcg/mL Gentamicin Level Trough 0.3 0.0-2.0 mcg/mL Vancomycin Level Trough 18.1 # 10.0-20.0 UG/ML Immature Granulocyte % (Auto) 0.6 0-1 % Neutrophils (%) (Auto) 87.2 H 40.0-77.0 % Lymphocytes (%) (Auto) 6.7 L 21.0-51.0 % Monocytes (%) (Auto) 5.5 3.0-13.0 % Eosinophils (%) (Auto) 0.0 0.0-8.0 % Basophils (%) (Auto) 0.0 0.0-5.0 % Neutrophils # (Auto) 4.5 1.8-7.7 K/uL Lymphocytes # (Auto) 0.3 L 1.0-4.8 K/uL Monocytes # (Auto) 0.3 0.1-1.0 K/uL Eosinophils # (Auto) 0.00 0.00-0.70 K/uL Basophils # (Auto) 0.00 0.00-0.20 K/uL Absolute Immature Granulocyte (auto 0.03 0-1 K/uL C-Reactive Protein, Quantitative 61.50 H 0.5-3.0 mg/L DIAGNOSIS/RADIOLOGY PATIENT: LUCÍA CATALAN ACCT: [id number] LOC: [facility] U: [id number] AGE/SX: 54/F ROOM: [facility] RE04/22/[address]: TERRIE MENDOZA MD : 1970 BED: 1 DIS: STATUS: ADM IN TLOC: SPEC: [id number] EVERARDO: 05/06/25-1325 STATUS: RES REQ: [id number] RECD: 05/06/25-[address]: CAT GOMES HELP DESK ASSISTANT SOURCE: BLOOD ENTR: 05/05/[address]: EDNA SOARES MD SPDC: CARLENE CAMARILLO MD,GALINDO ADAMSON,QASIM MENDOZA,TERRIE SANDERSON,SANNA STEIN,GABE VANG,PARAG VAIL,QASIM ROBLEDO,CARLENE PIERCE,DANIEL FAY,JOVI DO ORDERED: BLOOD CULTURE COMMENTS: What is the Source? BLOOD Procedure Result Mini Date-Time BLOOD CULT Preliminary 05/07/25-16 GRAM STAIN: GRAM POSITIVE COCCI CALLED TO MAYUR LAI ON 05/07/25 AT 0613/KH PEDI BOTTLE 2 OF 2 POSITIVE CULTURE REPORT: SEE [facility] REPORT [id number] FOR CULTURE RESULTS ASSESSMENT: Persistent Methicillin-resistant Staphylococcus aureus bacteremia. Urinary tract infection with methicillin-resistant Staphylococcus aureus. L2 and L3 intervertebral disc osteomyelitis.. Right Hydronephrosis, s/p right nephrostomy tube placement on 04/29/2025. Non-ketotic hyperglycemia. Urinary retention requiring Nolasco catheter placement. Morbid obesity. Thrombocytopenia requiring platelet transfusion.. Diabetes mellitus. Debility. PLAN: Remove PICC line. Continue Gentamicin IV. Continue vancomycin per pharmacy protocol. Continue pain management. Continue antidiabetic. Continue GI prophylaxis. Case management working on placement to [facility]. Patient will need 6 weeks of IV antibiotics. Patient is not a candidate for RAMAN due to thrombocytopenic and risks of bleeding. Continue physical therapy. This case was reviewed and discussed with my supervising physician and the above assessment and plan was formulated and agreed upon. ATTESTATION BY PHYSICIAN I have seen and examined the patient. I reviewed the documentation, medical decision making, and treatment plan as noted by the mid-level provider above. I agree with the findings and plan of care. EDNA SOARES MD, MIRTA L [facility] May 07, 2025 16:09
--- NOTE | 2025-05-07 16:30 | NUR ---
VQ SCAN PT BACK, PER TECH AND PT; WAS NOT ABLE TO LIE FLAT. VQ SCAN NOT DONE. AWARE.
--- NOTE | 2025-05-07 16:39 | NUR ---
RAD NUCLEAR MEDICINE VQ SCAN WAS ATTEMPTED PATIENT WAS UNABLE TO LAY FLAT. VQ SCAN ON HOLD UNTIL FURTHER NOTICE
--- NOTE | 2025-05-07 23:46 | PN ---
endocrinology progress note Date of Service: May 07, 2025 subjective: glucose are elevated and off steroid now. also on ivig hba1c 9.2, home regimen: lantus 30 units daily and humalog 10 units tid before meals. patient glucose are improving. s/p right nephrostomy tube, thrombocytopenia, UTI and Bacteremia PAST MEDICAL HISTORY: [undiagnosed obstructive sleep apnea, diabetes type 2, hypertension, hyperlipidemia, hypothyroidism, restless leg syndrome, anxiety disorder,depression, lupus and severe morbid obesity ] PAST SURGICAL HISTORY: [ Cholecystectomy, tubal ligation] PAST SOCIAL HISTORY: [ Patient lives with . Patient denies alcohol tobacco and recreational drug use] FAMILY HISTORY: [ Hypertension, diabetes, cardiovascular disease and Alzheimer's disease ] Coded Allergies: No Known Allergies (Unverified Allergy, Unknown, 08/26/14) ASSESSMENT: hyperglycemia due to uncontrolled dm-2 and off steroids now. glucose are improving. hba1c 9.2, home regimen: lantus 30 units daily and humalog 10 units tid before meals. Intractable low back pain POA L2/L3 OSTEOMYELITIS Acute thrombocytopenia POA IVIG Acute urinary tract infection POA On antibiotics. Bacteremia, MRSA on antibiotics. right kidney hydronephrosis s/p right nephrostomy tube Chronic anemia POA Hyponatremia POA Acute kidney injury on renal insufficiency POA improving Hypocalcemia POA stable Cirrhotic liver with splenomegaly consistent with portal hypertension per CT POA Renal parenchymal disease per CT POA Hypothyroidism POA ON LEVOTHYROXINE Hyperlipidemia POA Hypertension POA Anxiety disorder POA Depression POA Restless leg syndrome POA Suspected obstructive sleep apnea untreated POA Morbid obesity POA PLAN: increase lantus to 40 units daily increase regular insulin to 15 units qac before meals continue medium dose ssi monitor glucose qx6 hourly continue levothyroxine 125 mcg daily. Vitals/Labs Vital Signs Date Time Temp Pulse Resp B/P (MAP) Pulse Ox O2 Delivery O2 Flow Rate FiO2 05/07/25 20:00 98.1 69 20 135/51 94 Room Air 05/07/25 16:30 21 05/07/25 08:10 0 Laboratory Tests 05/07/25 05:35 Medications Current Medications Sodium Chloride 1,000 ml @ 0 mls/hr ONCE ONCE IV Last administered on 04/22/25at 17:27; Start 04/22/25 at 17:00; Stop 04/22/25 at 17:01; Status DC Ceftriaxone Sodium 1 gm ONCE ONCE IVPB Last administered on 04/22/25at 19:43; Start 04/22/25 at 19:00; Stop 04/22/25 at 19:01; Status DC Acetaminophen 650 mg Q6H PRN PO Last administered on 04/23/25at 10:02; Start 04/22/25 at 20:00; Stop 05/22/25 at 19:59 Acetaminophen 650 mg Q4H PRN PO Last administered on 04/30/25at 06:17; Start 04/22/25 at 20:00; Stop 05/22/25 at 19:59 Ondansetron HCl 4 mg Q6H PRN IV Last administered on 04/22/25at 20:10; Start 04/22/25 at 20:00; Stop 05/22/25 at 19:59 Famotidine 20 mg DAILY PO Last administered on 04/23/25at 09:33; Start 04/23/25 at 09:00; Stop 04/24/25 at 09:48; Status DC Ceftriaxone Sodium 1 gm/ Sodium Chloride 50 ml @ 100 mls/hr BID IV; Start 04/22/25 at 21:00; Stop 04/22/25 at 19:59; Status DC Lactated Ringer's 1,000 ml @ 100 mls/hr Q10H IV Last administered on 04/23/25at 06:00; Start 04/22/25 at 20:00; Stop 04/23/25 at 10:09; Status DC Insulin Human Regular INSULIN SLIDING SCAL... ACHS SQ Last administered on 04/24/25at 11:18; Start 04/22/25 at 21:00; Stop 04/24/25 at 16:16; Status DC Dextrose 50 ml AD PRN IV; Start 04/22/25 at 20:00; Stop 05/22/25 at 19:59 Glucagon 1 mg AD PRN IM; Start 04/22/25 at 20:00; Stop 05/22/25 at 19:59 Magnesium Sulfate 50 ml @ 0 mls/hr PROTOCOL PRN IV; Start 04/22/25 at 20:00; Stop 05/22/25 at 19:59 Potassium Chloride 100 ml @ 100 mls/hr AD PRN IV; Start 04/22/25 at 20:00; Stop 05/22/25 at 19:59 Potassium Chloride 20 meq AD PRN PO; Start 04/22/25 at 20:00; Stop 05/22/25 at 19:59 Potassium Chloride 20 meq AD PRN PO Last administered on 05/03/25at 13:10; Start 04/22/25 at 20:00; Stop 05/22/25 at 19:59 Ceftriaxone Sodium 1 gm BID IVPB; Start 04/22/25 at 21:00; Stop 04/22/25 at 20:44; Status DC Morphine Sulfate 4 mg ONCE ONCE IVP Last administered on 04/22/25at 20:11; Start 04/22/25 at 20:30; Stop 04/22/25 at 20:31; Status DC Lidocaine 1 each ONCE ONCE TP Last administered on 04/22/25at 21:14; Start 04/22/25 at 21:00; Stop 04/22/25 at 21:01; Status DC Ceftriaxone Sodium 1 gm BID IVPB Last administered on 04/25/25at 09:44; Start 04/23/25 at 09:00; Stop 04/25/25 at 12:36; Status DC Methylprednisolone Sodium Succinate 125 mg Q6H IVP Last administered on 04/25/25at 09:45; Start 04/23/25 at 08:00; Stop 04/28/25 at 09:10; Status DC Albuterol Sulfate 1.25 ONCE ONCE IH Last administered on 04/23/25at 09:40; Start 04/23/25 at 09:30; Stop 04/23/25 at 09:31; Status DC Calcium Gluconate 1 gm ONCE ONCE IV Last administered on 04/23/25at 10:55; Start 04/23/25 at 10:30; Stop 04/23/25 at 10:31; Status DC Sodium Chloride 50 ml @ 0 mls/hr ONCE ONCE IV Last administered on 04/23/25at 11:00; Start 04/23/25 at 11:00; Stop 04/23/25 at 11:01; Status DC Sodium Zirconium Cyclosilicate 10 gm ONCE ONCE PO Last administered on 04/23/25at 14:14; Start 04/23/25 at 14:00; Stop 04/23/25 at 16:08; Status DC Hydromorphone HCl 0.5 mg Q6H PRN IVP Last administered on 04/25/25at 04:14; Start 04/23/25 at 14:00; Stop 04/25/25 at 08:25; Status DC Sodium Zirconium Cyclosilicate 10 gm TID PO; Start 04/23/25 at 21:00; Stop 04/23/25 at 14:11; Status DC Pantoprazole Sodium 40 mg DAILY IVP Last administered on 05/07/25at 08:09; Start 04/24/25 at 10:00; Stop 05/24/25 at 09:59 Pregabalin 75 mg BID PO; Start 04/24/25 at 21:00; Stop 04/24/25 at 14:49; Status DC Vancomycin HCl 1 each AD IV; Start 04/24/25 at 10:30; Stop 04/25/25 at 12:36; Status DC Vancomycin HCl 500 ml @ 250 mls/hr ONCE ONCE IV Last administered on 04/24/25at 12:46; Start 04/24/25 at 11:00; Stop 04/24/25 at 12:59; Status DC Vancomycin HCl 250 ml @ 125 mls/hr Q12H IV Last administered on 04/25/25at 11:43; Start 04/24/25 at 23:00; Stop 04/25/25 at 12:36; Status DC Insulin Glargine 10 units HS SQ; Start 04/24/25 at 21:00; Stop 04/24/25 at 16:57; Status DC Insulin Glargine 10 units ONCE STAT SQ Last administered on 04/24/25at 11:19; Start 04/24/25 at 10:54; Stop 04/24/25 at 11:00; Status DC Atorvastatin Calcium 20 mg HS PO Last administered on 05/07/25at 20:36; Start 04/24/25 at 21:00; Stop 05/24/25 at 20:59 Gabapentin 300 mg BID PO Last administered on 04/25/25at 21:51; Start 04/24/25 at 21:00; Stop 04/28/25 at 09:10; Status DC Levothyroxine Sodium 125 mcg DAILY@0630 PO Last administered on 05/07/25at 05:26; Start 04/25/25 at 06:30; Stop 05/25/25 at 06:29 Metoprolol Succinate 50 mg AM PO Last administered on 05/07/25at 08:10; Start 04/25/25 at 09:00; Stop 05/25/25 at 08:59 Venlafaxine HCl 37.5 mg DAILY PO; Start 04/25/25 at 09:00; Stop 04/24/25 at 14:50; Status DC Pramipexole Dihydrochloride 0.5 mg HS PO Last administered on 05/07/25at 20:36; Start 04/24/25 at 21:00; Stop 05/24/25 at 20:59 Venlafaxine HCl 37.5 mg DAILY PO Last administered on 05/04/25at 09:21; Start 04/24/25 at 16:00; Stop 05/05/25 at 11:18; Status DC Insulin Human Regular INSULIN SLIDING SCAL... ACHS SQ Last administered on 04/25/25at 11:57; Start 04/24/25 at 16:30; Stop 04/25/25 at 14:09; Status DC Insulin Glargine 15 units HS SQ; Start 04/24/25 at 21:00; Stop 04/24/25 at 17:06; Status DC Insulin Human Regular 5 unit TIDAC SQ; Start 04/24/25 at 17:00; Stop 04/24/25 at 17:06; Status DC Insulin Glargine 30 units ONCE SQ Last administered on 04/24/25at 18:16; Start 04/24/25 at 17:00; Stop 04/25/25 at 06:19; Status DC Insulin Human Regular 10 unit TIDAC SQ Last administered on 04/25/25at 06:15; Start 04/24/25 at 17:00; Stop 04/25/25 at 06:17; Status DC Tramadol HCl 50 mg Q6H PRN PO Last administered on 04/28/25at 13:55; Start 04/24/25 at 22:30; Stop 04/29/25 at 22:29; Status DC Insulin Human Regular 25 unit TIDAC SQ Last administered on 04/25/25at 17:39; Start 04/25/25 at 07:30; Stop 04/26/25 at 07:58; Status DC Insulin Glargine 70 units ONCE ONCE SQ Last administered on 04/25/25at 06:27; Start 04/25/25 at 06:30; Stop 04/25/25 at 06:31; Status DC Hydromorphone HCl 0.5 mg BIDPRN PRN IVP Last administered on 04/29/25at 23:31; Start 04/25/25 at 19:00; Stop 04/30/25 at 11:59; Status DC Heparin Sodium (Porcine) 5,000 unit Q8H SQ; Start 04/25/25 at 09:00; Stop 04/25/25 at 08:40; Status DC Lactulose 30 gm TID PO Last administered on 04/30/25at 09:16; Start 04/25/25 at 11:00; Stop 04/30/25 at 09:45; Status DC Sodium Chloride 500 ml @ 0 mls/hr Q0M IV; Start 04/25/25 at 11:00; Stop 05/25/25 at 10:59 Trimethoprim/ Sulfamethoxazole 1 tab BID PO Last administered on 04/25/25at 21:51; Start 04/25/25 at 21:00; Stop 04/26/25 at 14:50; Status DC Insulin Human Regular INSULIN SLIDING SCAL... ACHS SQ Last administered on 05/04/25at 20:49; Start 04/25/25 at 16:30; Stop 05/04/25 at 23:42; Status DC Diazepam 10 mg ONCE ONCE IM; Start 04/25/25 at 15:00; Stop 04/25/25 at 15:01; Status DC Lactulose 200 gm ONCE ONCE DC Last administered on 04/25/25at 17:30; Start 04/25/25 at 16:30; Stop 04/25/25 at 16:31; Status DC Lorazepam 0.5 mg ONCE ONCE PO Last administered on 04/25/25at 19:07; Start 04/25/25 at 19:00; Stop 04/25/25 at 19:01; Status DC Haloperidol Lactate 1 mg ONCE ONCE IM Last administered on 04/26/25at 05:17; Start 04/26/25 at 05:00; Stop 04/26/25 at 05:02; Status DC Insulin Human Regular 15 unit TIDAC SQ; Start 04/26/25 at 11:30; Stop 04/27/25 at 20:30; Status DC Insulin Glargine 50 units DAILY SQ Last administered on 04/28/25at 08:46; Start 04/26/25 at 09:00; Stop 04/29/25 at 06:49; Status DC Dextrose 1,000 ml @ 75 mls/hr [id number] IV Last administered on 04/29/25at 04:27; Start 04/26/25 at 12:00; Stop 04/30/25 at 09:36; Status DC Dexmedetomidine/ Sodium Chloride 200 mcg PROTOCOL IV; Start 04/26/25 at 12:00; Stop 04/26/25 at 14:54; Status DC Dexmedetomidine/ Sodium Chloride 400 mcg STK-MED ONCE IV; Start 04/26/25 at 14:49; Stop 04/26/25 at 14:50; Status DC Vancomycin HCl 1 each AD IV; Start 04/26/25 at 15:00; Stop 05/10/25 at 14:59 Dexmedetomidine/ Sodium Chloride 400 mcg PROTOCOL STAT IV Last administered on 04/26/25at 15:18; Start 04/26/25 at 14:53; Stop 04/26/25 at 14:58; Status DC Vancomycin HCl 250 ml @ 125 mls/hr Q12H IV Last administered on 04/27/25at 15:22; Start 04/26/25 at 15:30; Stop 04/28/25 at 03:13; Status DC Dexmedetomidine/ Sodium Chloride 400 mcg PROTOCOL PRN IV Last administered on 04/27/25at 23:31; Start 04/26/25 at 19:30; Stop 05/01/25 at 12:45; Status DC Dexmedetomidine/ Sodium Chloride 400 mcg STK-MED ONCE IV Last administered on 04/26/25at 19:14; Start 04/26/25 at 19:10; Stop 04/26/25 at 19:11; Status DC Insulin Human Regular INSULIN SLIDING SCAL... Q4H SQ Last administered on 04/28/25at 06:00; Start 04/27/25 at 20:30; Stop 04/28/25 at 09:11; Status DC Vancomycin HCl 250 ml @ 125 mls/hr Q12H IV; Start 04/28/25 at 15:30; Stop 04/28/25 at 18:53; Status DC Insulin Human Regular 8 unit TIDAC SQ Last administered on 04/30/25at 06:15; Start 04/28/25 at 07:30; Stop 04/30/25 at 07:31; Status DC Vancomycin HCl 250 ml @ 125 mls/hr Q12H IV Last administered on 05/02/25at 10:21; Start 04/28/25 at 20:00; Stop 05/02/25 at 20:34; Status DC Insulin Glargine 40 units DAILY SQ; Start 04/29/25 at 09:00; Stop 04/30/25 at 07:31; Status DC Lidocaine HCl 50 ml STK-MED ONCE .ROUTE; Start 04/29/25 at 16:03; Stop 04/29/25 at 16:06; Status DC Heparin Sodium/ Sodium Chloride 500 ml @ As Directed STK-MED ONCE IV; Start 04/29/25 at 16:03; Stop 04/29/25 at 16:06; Status DC Iodixanol 100 ml STK-MED ONCE .ROUTE; Start 04/29/25 at 16:04; Stop 04/29/25 at 16:06; Status DC Fentanyl Citrate 100 mcg STK-MED ONCE .ROUTE; Start 04/29/25 at 16:27; Stop 04/29/25 at 16:28; Status DC Midazolam HCl 2 mg STK-MED ONCE .ROUTE; Start 04/29/25 at 16:28; Stop 04/29/25 at 16:28; Status DC Midazolam HCl 2 mg STK-MED ONCE .ROUTE; Start 04/29/25 at 16:52; Stop 04/29/25 at 16:52; Status DC Lidocaine 1 each ONCE ONCE TP Last administered on 04/29/25at 19:18; Start 04/29/25 at 18:30; Stop 04/29/25 at 18:33; Status DC Insulin Glargine 50 units DAILY SQ Last administered on 05/04/25at 09:30; Start 04/30/25 at 09:00; Stop 05/05/25 at 07:21; Status DC Insulin Human Regular 12 unit TIDAC SQ Last administered on 05/02/25at 06:45; Start 04/30/25 at 07:30; Stop 05/02/25 at 08:05; Status DC Hydromorphone HCl 1 mg TIDP PRN IVP Last administered on 04/30/25at 20:44; Start 04/30/25 at 13:00; Stop 05/01/25 at 18:46; Status DC Acetaminophen/ Hydrocodone Bitart 1 tab Q4H PRN PO Last administered on 04/30/25at 22:07; Start 04/30/25 at 12:00; Stop 05/05/25 at 11:59; Status DC Pharmacy Profile Note 1 each ONCE MISC; Start 05/01/25 at 08:00; Stop 04/30/25 at 16:52; Status DC Immune Globulin 400 ml @ 0 mls/hr Q24H IV Last administered on 05/01/25at 16:18; Start 05/01/25 at 14:00; Stop 05/02/25 at 12:38; Status DC Pregabalin 25 mg BID PO Last administered on 05/04/25at 09:22; Start 05/01/25 at 21:00; Stop 05/05/25 at 07:22; Status DC Lisinopril 10 mg DAILY PO Last administered on 05/07/25at 08:10; Start 05/02/25 at 09:00; Stop 06/01/25 at 08:59 Diphenhydramine HCl 25 mg ONCE PRN IVP; Start 05/01/25 at 15:00; Stop 05/01/25 at 15:06; Status DC Dexamethasone Sodium Phosphate 20 mg ONCE PRN IV; Start 05/01/25 at 15:00; Stop 05/01/25 at 15:05; Status DC Dexamethasone Sodium Phosphate 20 mg ONCALL IV Last administered on 05/02/25at 15:41; Start 05/01/25 at 15:30; Stop 05/03/25 at 15:31; Status DC Diphenhydramine HCl 25 mg ONCALL IVP Last administered on 05/02/25at 15:41; Start 05/01/25 at 15:30; Stop 05/03/25 at 15:31; Status DC Hydromorphone HCl 1 mg TID PRN IVP; Start 05/01/25 at 19:00; Stop 05/05/25 at 12:59; Status DC Insulin Human Regular 15 unit TIDAC SQ Last administered on 05/04/25at 17:33; Start 05/02/25 at 11:30; Stop 05/05/25 at 07:21; Status DC Immune Globulin 400 ml @ 0 mls/hr Q24H IV Last administered on 05/02/25at 16:46; Start 05/02/25 at 16:00; Stop 05/03/25 at 16:01; Status DC Vancomycin HCl 250 ml @ 125 mls/hr Q12H9 IV Last administered on 05/07/25at 20:37; Start 05/04/25 at 21:00; Stop 05/14/25 at 20:59 Pharmacy Profile Note 1 each ONCE MISC; Start 05/03/25 at 12:00; Stop 05/03/25 at 12:58; Status DC Gentamicin Sulfate/Sodium Chloride 100 ml @ 200 mls/hr Q24H IV Last administered on 05/07/25at 15:40; Start 05/03/25 at 14:00; Stop 05/13/25 at 13:59 Dexamethasone Sodium Phosphate 20 mg ONCALL IV Last administered on 05/03/25at 17:23; Start 05/03/25 at 17:15; Stop 05/03/25 at 17:16; Status DC Diphenhydramine HCl 25 mg ONCALL IVP Last administered on 05/03/25at 17:22; Start 05/03/25 at 17:15; Stop 05/03/25 at 17:16; Status DC Immune Globulin 400 ml @ 0 mls/hr Q24H IV Last administered on 05/03/25at 17:57; Start 05/03/25 at 17:15; Stop 05/03/25 at 17:16; Status DC Fluconazole 150 mg ONCE ONCE PO Last administered on 05/04/25at 15:57; Start 05/04/25 at 15:30; Stop 05/04/25 at 15:31; Status DC Insulin Human Regular INSULIN SLIDING SCAL... ACHS SQ Last administered on 05/07/25at 21:08; Start 05/05/25 at 07:30; Stop 06/04/25 at 07:29 Insulin Glargine 30 units DAILY SQ Last administered on 05/07/25at 08:12; Start 05/05/25 at 09:00; Stop 06/04/25 at 08:59 Insulin Human Regular 12 unit TIDAC SQ; Start 05/05/25 at 07:30; Stop 05/05/25 at 22:51; Status DC Venlafaxine HCl 37.5 mg HS PO Last administered on 05/07/25at 20:36; Start 05/05/25 at 21:00; Stop 06/04/25 at 20:59 Insulin Human Regular 10 unit TIDAC SQ Last administered on 05/07/25at 16:06; Start 05/06/25 at 07:30; Stop 06/05/25 at 07:29 Dexamethasone Sodium Phosphate 10 mg ONCE ONCE IVP Last administered on 05/06/25at 20:20; Start 05/06/25 at 20:00; Stop 05/06/25 at 20:04; Status DC Diphenhydramine HCl 25 mg ONCE ONCE IV Last administered on 05/06/25at 20:20; Start 05/06/25 at 20:00; Stop 05/06/25 at 20:04; Status DC PARAG VANG MD May 07, 2025 23:46
[2025-05-08] VITALS: BP 131/50; PULSE 76; RESP 20; TEMP 98.2
[2025-05-08 04:00] VITALS: BP 134/56; PULSE 70; RESP 20; TEMP 97.8
[2025-05-08 06:40] LABS: IMMATURE GRANULOCYTE ABSOLUTE 0.06 K/uL (0-1); NUCLEATED RED BLOOD CELLS 0.0 % (0.0-0.19); PLATELET COUNT (AUTO) 20 K/uL (130-400); RED BLOOD CELL COUNT(AUTO) 3.49 MIL/uL (4.00-5.50); RED CELL DISTRIBUTION WIDTH 24.3 % (11.0-15.5); WHITE BLOOD COUNT (AUTO) 5.6 K/uL (4.8-10.8)
[2025-05-08 06:50] LABS: INR 1.58 (0.85-1.15)
--- NOTE | 2025-05-08 06:59 | HMCIMG ---
EXAMINATION: SPECTRAL DOPPLER ULTRASOUND EXAMINATION OF THE BILATERAL LOWER EXTREMITY VEINS. CLINICAL HISTORY: Elevated D-dimer. COMPARISON: Duplex lower extremity veins dated 04/09/2025. TECHNIQUE: Real-time ultrasound scan of the veins of the bilateral lower extremity with color Doppler flow, spectral waveform analysis and compression. FINDINGS: DEEP VEINS: The common femoral, superficial femoral, and popliteal veins are echolucent and compressible. There is normal color Doppler flow throughout. The visualized calf veins appear patent. SUPERFICIAL VEINS: The greater saphenous veins are patent and compressible. SOFT TISSUES: No popliteal fossa cyst or other abnormalities. IMPRESSION: No deep venous thrombosis evident in the bilateral lower extremity. No superficial thrombophlebitis in the bilateral lower extremity. /[place]
[2025-05-08 07:08] LABS: ASPARTATE AMINOTRANSFERASE 102.0 U/L (10-37); CREATININE 1.2 mg/dL (0.5-1.0); GLOMERULAR FILTR. RATE CALC 53.0 mL/min (>90); GLUCOSE,RANDOM 197.0 mg/dL (70-105); SODIUM SERUM 137.0 mmol/L (136-145); TOTAL PROTEIN, SERUM 7.9 g/dL (6.0-8.3); UREA NITROGEN, BLOOD 34.0 mg/dL (7-18)
[2025-05-08 07:49] LABS: PLATELET COUNT (AUTO) 32.0 K/uL (130-400)
[2025-05-08 08:00] VITALS: BP 143/58; PULSE 67; RESP 18; TEMP 97.7; O2SAT 95
--- NOTE | 2025-05-08 09:32 | PN ---
FOLLOWUP PROGRESS NOTE SUBJECTIVE: A 54-year-old female who has had a prolonged hospital course. The patient was initially admitted with acute renal failure. The patient's creatinine has remained fairly stable. The patient with persistent bacteremia. Workup is consistent with osteomyelitis. She continues with the IV antibiotics and the patient is being seen as a followup visit for all of the above. REVIEW OF SYSTEMS: GENERAL: She is feeling weak and tired. HEENT: No change in vision. No change in hearing. CARDIOVASCULAR: There is no current chest pain or palpitations. PULMONARY: No shortness of breath. GASTROINTESTINAL: She is tolerating a diet. MUSCULOSKELETAL: Complains of weakness. PHYSICAL EXAMINATION: VITAL SIGNS: Blood pressure 143/58, pulse 60s. GENERAL: Chronically ill female, much older than appearing. HEENT: Head is atraumatic. Pupils equal, roving to light. Oropharynx is without exudate. Nares clear. NECK: There is no JVD. There is no thyromegaly. CARDIOVASCULAR: Regular. There is no S3 or S4 gallop. LUNGS: Coarse with equal thoracic movement. ABDOMEN: Soft, nondistended, and nontender. EXTREMITIES: Reveal no clubbing, no cyanosis. NEUROLOGIC: She is awake. She is alert. LABORATORY DATA: Hemoglobin 9.1, hematocrit 28, white blood cell count is 5,000. BUN 34, creatinine is 1.2. IMPRESSION: * Acute renal failure. * Osteomyelitis. * Diabetes mellitus. * Hypertension. PLAN: The patient's creatinine continues to remain fairly stable. The patient with persistent bacteremia and she remains on broad-spectrum antibiotics. The patient is being seen by case management for final disposition for the long-term IV antibiotics. The patient is status post nephrostomy tube placement. We will follow closely. TID: [id number] RECEIPT: [id number]
--- NOTE | 2025-05-08 09:47 | PN ---
SUBJECTIVE: The patient was found on have repeat blood cultures, Staph in her blood. They removed her PICC line. She is awake and alert, on vancomycin and gentamicin. She feels well. She is not bleeding or bruising. Platelets are still quite low. PHYSICAL EXAMINATION: VITAL SIGNS: Blood pressure 134/56, pulse 70, respirations 20. CHEST: Clear. HEART: Regular rate and rhythm. ABDOMEN: Soft. EXTREMITIES: Show minimal edema. NEUROLOGIC: She is awake and oriented. LABORATORY DATA: WBC 5, hemoglobin 9, platelets only 20,000. IMPRESSION: 1. The patient has consumptive thrombocytopenia, trying to give her medicine for the same. 2. MSSA Staph bacteremia, persistent. 3. L2-L3 disk osteomyelitis. 4. Right hydronephrosis, nephrostomy tube. 5. Serosal liver. 6. Lupus. 7. ITP. 8. Diabetes. 9. Debility. PLAN: Continue management per the primary team, antibiotics. They are still working on floor placement. Continue PT. TID: [id number] RECEIPT: [id number]
[2025-05-08 11:51] VITALS: BP 131/51; PULSE 64; RESP 20; TEMP 97.9
--- NOTE | 2025-05-08 15:20 | NUR ---
[facility] Consult: Patient assessed by wound healing team. Patient with no wounds noted, rash to abdominal fold/perineum. Assessment and recommendations provided to primary nurse. Education provided. Addendum: 05/09/25 at 1303 by KAROLYN BEATTY RN RN/ Amended: Links added.
[2025-05-08 16:00] VITALS: BP 123/48; PULSE 61; RESP 20; TEMP 98
--- NOTE | 2025-05-08 16:35 | PN ---
[facility] PROGRESS NOTE Date of Service: May 08, 2025 Time of Service: 16:19 SUBJECTIVE: This is a 54-year-old female with past medical history of undiagnosed obstructive sleep apnea, diabetes type 2, hypertension, hyperlipidemia, hypothyroidism, restless leg syndrome, anxiety disorder,depression, lupus and severe morbid obesity who presents to the ED for complaints of severe low back pain which started 2 weeks ago and getting worse for the past 2 days and patient reports she is taking prednisone 30mg po daily for her Lupus she said.Patient also reports she was recently seen in this ED for similar complaints and was diagnosed with acute lumbosacral myofascial strain. 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 Urinalysis consistent with urinary tract infection. CT abdomen and pelvis result revealed no acute intra-abdominal or pelvic pathology cirrhotic liver morphology with splenomegaly, consistent with portal hypertension. Bilateral r enal cortical thickening may reflect renal parenchymal disease. While in the ER patient received Rocephin 1 g IV, 1 L NS bolus. We will admit patient for further medical management. 04/23/25 Patient was seen and examined at bedside. She was complaining of chest pain early in the morning but her EKG and troponin were normal. Patient says she got liver cirrhosis from taking Tylenol with codeine in the past for a long time. Remarkable labs are Na 129, K 6.4. Cl 98, BUN 44. Cr 1.2 with no anion gap. New EKG shows sinus rhythm with no tall T-waves or shortened QT interval. We will give her a dose of calcium gluconate and lokelma and recheck her labs. we will hold her iv fluids for now. Her urine anion gap is 36.0 mEq/l. Repeat potassium was 4.2 and 4.6. We will order CT lumbar spine and request nephro and cardio consults due to hyponatremia, RTA and cirrhosis with portal hypertension res pectively. We will order lupus, complement , anemia panel due to her abnormal labs and h/o SLE. Hematology recommended solu medrol 125 q6. she might need hydrochloroquine upon discharge for SLE 04/24/25 Patient was seen and examined at bedside. She is complaining of widespread generalized body pain with tender points and generalized weakness, her CPK is going up, we will repeat it and start her on pregabalin. Her labs are improving. She had an EGD done last year that showed grade III varices but lost to follow up with TDS. No GI intervention as her Hb is stable. Will start her on vancomycin. Her home meds have been reconciled. She takes venlaflaxine and pramipexole for depression and restless leg syndrome respectively. Her elevated urine anion gap could be due to BALTAZAR or NSAID induced kidney injury but her creatinine is improving. Pending abdominal ultrasound and CT lumbar spine result s. 04/25/25 Patient was seen and examined. She was observed sitting in a chair but was unable to answer questions appropriately and appeared confused. Ammonia level was elevated at 59; lactulose has been initiated at 30 mL TID. She is currently receiving vancomycin for MRSA identified in the urine. Right upper quadrant ultrasound demonstrated chronic hepatic changes with a hypoechoic lesion in the right lobe of the liver, possibly representing a complex cyst. CT of the lumbar spine revealed moderate lumbar spondylosis and diffuse osteopenia. Her platelet count is 37 and showing slow improvement. Dr. Urias, covering for Dr. Lorenzo, recommended holding solu-medrol for now. If platelet count declines tomorrow, steroids may need to be restarted. Ammonia and additional labs will be rechecked in the morning. 04/26/25 Patient was seen at bedside. Will request a transfer to the ICU due to worsening agitation and hypercapnic respiratory failure requiring BIPAP support.Will order Precedex drip for sedation to improve tolerance of non-invasive ventilation. Imaging studies including CT head and MRI spine have been ordered to evaluate for underlying neurologic causes. Patient remains hemodynamically stable; pulmonary consult is in place. She is growing gram positive cocci in clusters in her blood, will request ID input on antibiotics as she was on vancomycin previously and was started on bactrim for MRSA in urine. Her platelet count is 36 and solu-medrol is on hold. Ammonia improved from 59 to 12 04/27/25 Patient was evaluated at bedside. She was transferred to the ICU yesterday due to agitation and hypercapnia, requiring a Precedex drip as she was removing her nasal cannula. BiPAP was initiated to support ventilation, and she is now resting comfortably. CT brain was unremarkable with no acute findings. She has a free water deficit of approximately 1.4 liters, for which D5W will be administered. CRP has decreased from 83.5 to 56.4. However, platelets have dropped from 36 to 28, and hematology is closely monitoring her. The patient remains NPO. We wanted to start NG tube feeding but patient has h/o esophageal varices. We will await gastroenterologys recommendations, including possible EGD if indicated. 04/28/25 Patient was evaluated at bedside, she is bed bound not very responsive to questions. She is currently off BiPAP and precedex drip. Her agitation has improved and she is resting comfortably in bed. She has MRSA bacteremia and we will repeat blood cultures. She is currently on vancomycin. She has moderate right hydronephrosis which is increasing, we will request urology consult. Her sodium is trending upwards from 147 to 152 and she has a free water deficit of 2.4 L , we will increase D5 rate from 75 to 150mls/hr. CRP improving from 56.4 to 42.7. Platelets dropped from 28 to 21, we will follow Dr. Lorenzo's recommendations and his plan is give her IgG. She is not bleeding actively. 04/29/25 Patient was evaluated at bedside. She is alert, awake and oriented. She was minimally verbal yesterday but is now more interactive, expressing pain and discussing her medical history. She reports diffuse joint pain and is unable to lift her arms or legs due to significant discomfort. She has generalized joint tenderness and weak general accounting clerk strength bilaterally. urologist Dr. Colin recommended nephrostomy tube on her right due to hydronephrosis. Her platelets improved to 44 without any intervention. She will be getting platelets for the procedure. She has infectious spondylodiscitis which could be the source of her bacteremia. We have requested transfer to [facility] but warehouse production worker said Dr. Sanchez has privileges at [facility] and will try to consult him. Her white count went up to 12.2, LFTs mildly going up. We will hold off on gabapentin for now. 04/30/25 Patient was evaluated at bedside. She is alert, awake and oriented. Her vitals are stable. She is interactive, expressing pain and discussing her medical history. She reports diffuse joint pain and is able to lift her arms or legs slightly due to pain and discomfort. Her active and passive range of motions are limited. She has generalized joint tenderness and weak general accounting clerk strength bilaterally. She also passed stool more than 5 times yesterday could be due to lactulose which has been stopped from today. A Percutaneous fluroscopy-guided placement of an 8-F nephrostomy catheter was performed,the patient tolerated the procedure well. Neurosurgeon Dr. Sanchez saw the patient and came up with possible diagnosis of discitis and osteomyelitis at L2-L3 along with psoas inflammation. She has spondylolisthesis which is non- critical and can be managed medically for now. According to Dr. Lorenzo she will benefit from IVIg for 3 days on the background of possible ITP. Her current platelet is 41 and Hgb 9.6. Also, Endocrinology team adjusted Insulin regimen. We have requested cardiology consult for suspected endocarditis and will request RAMAN although she has thrombocytopenia and h/o esophageal varices. 05/01/25 Patient was evaluated at bedside. She is alert, awake and oriented. Her vitals are stable, except blood pressure which is 158/80. She reports diffuse joint pain and is able to lift her arms or legs slightly due to pain and discomfort. Her active and passive range of motions are limited. She has generalized joint tenderness and weak general accounting clerk strength bilaterally. As per Dr. Lorenzo she will be started IVIG from today for 3 days. As per the Cardiology, she won't undergo RAMAN due thrombocytopenia, cirrhosis, varices. We will continue IV antibiotics and add low dose pregabalin for her pain. 05/02/25 Patient was evaluated at bedside. She is alert, awake and oriented. Her vitals are stable, except blood pressure which is 157/81. Labs showed WBC decreasing from 11.6 to 5.7, platelets from 44 to 32 and random glucose of 226. There has been marked decline in pain. We will continue IV antibiotics and she is receiving Immune globulin every 24 hr. Her Insulin dosage has been adjusted. Blood culture showed gram positive cocci in clusters, STAPHYLOCOCCUS AUREUS. Her prognosis remains guarded. Plan is to discharge her to [facility] for 6 weeks of IV antibiotics. 05/03/25 Patient was evaluated at bedside. She is alert, awake and oriented. Her vitals are stable,and her blood pressure which is 137/70. Labs showed WBC 7.8 , platelets from increasing from 32 to 44 and random glucose of 232. Her creatinine level is 1.2. There has been marked decline in pain and discomfort. We will continue IV antibiotics and she is receiving Immune globulin every 24 hr. Her last dose for Immune globulin is today. Her Insulin dosage has been adjusted. Blood culture showed gram positive cocci. Her prognosis remains guarded. She is on IV vancomycin. Plan is to discharge her to [facility] for 6 weeks of IV antibiotics. 05/04/25: The patient was evaluated at the bedside today. She had just finished showering and reported new-onset slurred speech, facial weakness and word- finding difficulty. She reports no weakness in the extremities. Blood cultures remain positive for gram-positive cocci, specifically MRSA. She is continuing on vancomycin, and gentamicin was initiated yesterday per Infectious Disease recommendations. She has completed a total of three IV IgG infusions. Platelet count is currently 31,000, decreased from 41,000 yesterday. Additionally, the patient has developed a groin rash with associated itching. Physical therapy noted that she was unable to ambulate today and experienced significant difficulty with mobility. We will continue to closely monitor her neurological status, platelet counts, and overall clinical response. Repeat blood cultures will be obtained at an appropriate interval following the initiation of gentamicin, per Infectious Disease guidance. Further assessment and management plan are outlined below. 05/05/25 The patient was evaluated at the bedside today. Her vitals are stable and comm unicated well. She complaints of pain in the neck and shoulder. She reports no weakness in the extremities. Blood cultures remain positive for gram-positive cocci, specifically MRSA. She is continuing on vancomycin, and gentamicin per Infectious Disease recommendations. Repeat blood cultures will be obtained at an appropriate interval following the initiation of gentamicin. She has completed a total of three IV IgG infusions. Platelet count is currently decreased from 31,000 [place] [address]. Her WBC is 6.8 and Hgb is 8.6. Her insulin medications has been adjusted by the endocrinology team. Additionally, the patient's groin rash with associated itching has been improving. She has been prescribed for Venlafaxine for management of depression and anxiety. Also Case management updated that they [facility], Insurance approval is still pending; no authorization has been granted as of this time. Further assessment and management plan are outlined below. 05/06/25 The patient was evaluated at the bedside today. Her vitals are stable and communicated well. Her pain is gradually decreasing. She reports no weakness in the extremities. Blood cultures remain positive for gram-positive cocci, specifically MRSA. Blood culture has been sent today after 3 days of gentamicin. She is continuing on vancomycin, and gentamicin per Infectious Disease recommendations. . She has completed a total of three IV IgG infusions. Platelet count is currently decreased from 31,[address] As [address] Dr[address] Lorenzo, she has been planned for the transfusion of platelets today. Her WBC is 5.1, Hgb is 8.9, CRP 61.50 and whole blood glucose 233. In addition,PT is 17.2, INR 1.71, APTT 36.3 and Fibrinogen 119. Also, the Liver enzymes are elevated with total bilirubin of 1.6, AST 166, ALT 136 and ALP 358. Her Vancomycin trough level has increased from 5.0 to 18.1. Her insulin medications has been adjusted by the endocrinology team. Additionally, the patient's groin rash has been improving. As per Nephrology, the patient's renal function has actually greatly improved &the patient is being seen by case management in regards to placement at the [facility]. We will continue to follow the patient closely. 05/07/25 The patient was evaluated at the bedside today. Her vitals are stable and communicated well. Her pain has reduced significantly. Preliminary Blood cultures showed positive for gram-positive cocci which was done yesterday after 3 days of gentamicin. PICC line has been removed as per ID recommendation. Platelet count [place] [address] today. Fecal occult blood test is positive. She received platelets transfusion yesterday. Her WBC is trending downwards from 5.1 to 3.0, Hgb is 8.4, and whole blood glucose 245. In addition, PT is 17.2, INR 1.71, APTT 36.3 and Fibrinogen 119. Her D-dimer is 7184. She has been planed today for bilateral US venous Doppler,V/Q scan and CTPA. Her Liver enzymes revealed total bilirubin of 1.9, AST 120, ALT 125 and ALP 371. Her Vancomycin trough level has decreased from 18.1 to 0.2. Her insulin medications has been followed by the endocrinology team. As per Dr Lorenzo, the patient can be transferred to [facility] as soon as accepted and he is trying to get her Promacta, medicine that raises the platelets,once its available. The WBC-tagged scan has been deferred and rescheduled for tomorrow to avoid excessive radiation exposure since patient was initially planned for V/Q scan today. 05/08/25 The patient was evaluated at the bedside today. Her vitals are stable and communicated well. She complained of hyperventilation in the night. Platelet count [id number] today. Her WBC is 5.6, Hgb is 9.1, and whole blood glucose is 314 . In addition, PT is 16, INR 1.58, APTT 35 and Fibrinogen 122. Her D-dimer is 6586. Her V/Q scan wasn't completed because she couldn't lie flat. The US venous doppler (B/L) was done which revealed no deep venous thrombosis evident in the bilateral lower extremity and No superficial thrombophlebitis in the bilateral lower extremity. Her Liver enzymes revealed total bilirubin of 1.9, AST 102, ALT 124 and ALP 391. Her Gentamicin peak and trough level is 0.2 and 0.3 respectively. Her insulin medications has been followed by the endocrinology team. We are awaiting for WBC tagged scan report. REVIEW OF SYSTEMS CONSTITUTIONAL: No fever, chills, or night sweats. NEUROLOGICAL: Denies headache, sensory and motor deficit. CARDIOVASCULAR: Denies any exertional angina, dyspnea on exertion, orthopnea, paroxysmal nocturnal dyspnea, palpitations. PULMONARY: Complained of hyperventilation in the night,Denies any shortness of breath, cough, phlegm/sputum, hemoptysis, pleuritic chest pain. GASTROINTESTINAL: Denies nausea, vomiting, abdominal pain. GENITOURINARY: Denies frequency, urgency, nocturia, hematuria or incontinence. PHYSICAL EXAM GENERAL APPEARANCE: The patient is alert, awake and oriented and bedbound NEUROLOGICAL: No sensory and motor deficits. CHEST: Normal chest expansion. LUNGS: Absence of any rales, rhonchi or any wheezing. CARDIOVASCULAR: Regular. S1 and S2 normal. No appreciable rubs, murmurs or gallops. ABDOMEN: Soft nontender, and nondistended. There is no rebound, voluntary guarding, or rigidity. GENITOURINARY: S/P day 6, Nephrostomy tube on the right side Vital Signs (last 8hr) Date Time Temp Pulse Resp B/P (MAP) Pulse Ox O2 Delivery O2 Flow Rate FiO2 05/08/25 11:51 97.9 64 20 131/51 91 Room Air 21 LABS: Laboratory: Test 05/08/25 10:57 05/08/25 06:33 05/07/25 10:01 05/07/25 05:35 Range/Units Whole Blood Glucose 314 #H 70-110 MG/DL White Blood Count 5.6 4.8-10.8 K/uL Red Blood Count 3.49 L 4.00-5.50 MIL/uL Hemoglobin 9.1 L 12.0-16.0 g/dL Hematocrit 28.4 L 36-48 % Mean Corpuscular Volume 81.4 79-99 fL Mean Corpuscular Hemoglobin 26.1 L 27.0-33.0 pg Mean Corpuscular Hemoglobin Concent 32.0 32.0-36.0 g/dL Red Cell Distribution Width 24.3 H 11.0-15.5 % Platelet Count 32 L 130-400 K/uL Mean Platelet Volume 7.5-10.5 fL Immature Granulocyte % (Auto) 1.1 H 0-1 % Neutrophils (%) (Auto) 87.8 H 40.0-77.0 % Lymphocytes (%) (Auto) 5.2 L 21.0-51.0 % Monocytes (%) (Auto) 5.7 3.0-13.0 % Eosinophils (%) (Auto) 0.0 0.0-8.0 % Basophils (%) (Auto) 0.2 0.0-5.0 % Neutrophils # (Auto) 4.9 1.8-7.7 K/uL Lymphocytes # (Auto) 0.3 L 1.0-4.8 K/uL Monocytes # (Auto) 0.3 0.1-1.0 K/uL Eosinophils # (Auto) 0.00 0.00-0.70 K/uL Basophils # (Auto) 0.01 0.00-0.20 K/uL Absolute Immature Granulocyte (auto 0.06 0-1 K/uL Nucleated Red Blood Cells 0.0 0.0-0.19 % Prothrombin Time 16.0 H 9.6-11.6 SEC Prothromb Time International Ratio 1.58 H 0.85-1.15 Activated Partial Thromboplast Time 35.0 26.3-35.5 SEC Fibrinogen 122 L 180-350 mg/dL D-Dimer Quantitative (PE/DVT) 6586 *H 0-500 ng/mL Sodium Level 137 136-145 mmol/L Potassium Level 4.6 3.5-5.1 mmol/L Chloride Level 106 101-111 mmol/L Carbon Dioxide Level 28 21-32 mmol/L Blood Urea Nitrogen 34 H 7-18 mg/dL Creatinine 1.2 H 0.5-1.0 mg/dL Glomerular Filtration Rate Calc 53 >90 mL/min Random Glucose 197 H 70-105 mg/dL Total Calcium 8.4 L 8.5-10.1 mg/dL Total Bilirubin 1.9 H 0.2-1.0 mg/dL Aspartate Amino Transf (AST/SGOT) 102 H 10-37 U/L Alanine Aminotransferase (ALT/SGPT) 124 H 12-78 U/L Alkaline Phosphatase 391 H 50-136 U/L Total Protein 7.9 6.0-8.3 g/dL Albumin 1.5 L 3.5-5.0 g/dL Stool Occult Blood POSITIVE H NEGATIVE Segmented Neutrophils % 97 H 40-70 % Lymphocytes % (Manual) 2 L 22-44 % Monocytes % (Manual) 1 L 2-9 % Differential Comment MANUAL DIFFERENTIAL White Cell Morphology Comment Platelet Morphology Comment MARKED DECREASE Red Blood Cell Morphology See comments Current Medications Medications (Trade) Dose Ordered Sig/Roberth Route PRN Reason Start Time Stop Time Status Last Admin Dose Admin Acetaminophen (TYLenol 325MG TAB) 650 mg Q4H PRN PO MILD PAIN (1-3) 04/22/25 20:00 05/22/25 19:59 04/30/25 06:17 650 MG Acetaminophen (TYLenol 325MG TAB) 650 mg Q6H PRN PO TEMPERATURE GREATER THAN 101.5 04/22/25 20:00 05/22/25 19:59 04/23/25 10:02 650 MG Acetaminophen/ Hydrocodone Bitart (NORco 5/325MG) 1 tab Q4H PRN PO MODERATE PAIN (4-6) 04/30/25 12:00 05/05/25 11:59 DC 04/30/25 22:07 1 TAB Atorvastatin Calcium (LIPItor 20MG) 20 mg HS PO 04/24/25 21:00 05/24/25 20:59 05/07/25 20:36 20 MG Ceftriaxone Sodium 1 gm/ Sodium Chloride 50 ml @ 100 mls/hr BID IV 04/22/25 21:00 04/22/25 19:59 DC Ceftriaxone Sodium (ROCEphine 1G INJ) 1 gm BID IVPB 04/22/25 21:00 04/22/25 20:44 DC Ceftriaxone Sodium (ROCEphine 1G INJ) 1 gm BID IVPB 04/23/25 09:00 04/25/25 12:36 DC 04/25/25 09:44 1 GM Dexamethasone Sodium Phosphate (dexaMETHasone 4MG/ML 1ML VIAL) 20 mg ONCALL IV 05/01/25 15:30 05/03/25 15:31 DC 05/02/25 15:41 20 MG Dexamethasone Sodium Phosphate (dexaMETHasone 4MG/ML 1ML VIAL) 20 mg ONCALL IV 05/03/25 17:15 05/03/25 17:16 DC 05/03/25 17:23 20 MG Dexamethasone Sodium Phosphate (dexaMETHasone 4MG/ML 1ML VIAL) 20 mg ONCE PRN IV PRE-MED 05/01/25 15:00 05/01/25 15:05 DC Dexmedetomidine/ Sodium Chloride (PRECEdex 200MCG/ 50ML-NS) 200 mcg PROTOCOL IV 04/26/25 12:00 04/26/25 14:54 DC Dexmedetomidine/ Sodium Chloride (PRECEdex 400MCG/ 100ML-NS) 400 mcg PROTOCOL PRN IV ANXIETY/AGITATION 04/26/25 19:30 05/01/25 12:45 DC 04/27/25 23:31 400 MCG Dexmedetomidine/ Sodium Chloride (PRECEdex 400MCG/ 100ML-NS) 400 mcg PROTOCOL STAT IV 04/26/25 14:53 04/26/25 14:58 DC 04/26/25 15:18 400 MCG Dextrose 1,000 ml @ 75 mls/hr [id number] IV 04/26/25 12:00 04/30/25 09:36 DC 04/29/25 04:27 150 MLS/HR Dextrose (D50w) 50 ml AD PRN IV HYPOGLYCEMIA PROTOCOL 04/22/25 20:00 05/22/25 19:59 Diphenhydramine HCl (BENAdryl INJ) 25 mg ONCALL IVP 05/01/25 15:30 05/03/25 15:31 DC 05/02/25 15:41 25 MG Diphenhydramine HCl (BENAdryl INJ) 25 mg ONCALL IVP 05/03/25 17:15 05/03/25 17:16 DC 05/03/25 17:22 25 MG Diphenhydramine HCl (BENAdryl INJ) 25 mg ONCE PRN IVP PRE-MED 05/01/25 15:00 05/01/25 15:06 DC Famotidine (Pepcid 20mg Tab) 20 mg DAILY PO 04/23/25 09:00 04/24/25 09:48 DC 04/23/25 09:33 20 MG Gabapentin (NEURontin 300 MG CAP) 300 mg BID PO 04/24/25 21:00 04/28/25 09:10 DC 04/25/25 21:51 300 MG Gentamicin Sulfate/Sodium Chloride 100 ml @ 200 mls/hr Q24H IV 05/03/25 14:00 05/13/25 13:59 05/08/25 14:18 200 MLS/HR Glucagon (Glucagon 1mg Kit) 1 mg AD PRN IM HYPOGLYCEMIA PROTOCOL 04/22/25 20:00 05/22/25 19:59 Heparin Sodium (Porcine) (HEParin 5,000 UNIT VIAL) 5,000 unit Q8H SQ 04/25/25 09:00 04/25/25 08:40 DC Hydromorphone HCl (DiLAUDid 0.5MG INJ) 0.5 mg BIDPRN PRN IVP SEVERE PAIN (7-10) 04/25/25 19:00 04/30/25 11:59 DC 04/29/25 23:31 0.5 MG Hydromorphone HCl (DiLAUDid 0.5MG INJ) 0.5 mg Q6H PRN IVP SEVERE PAIN (7-10) 04/23/25 14:00 04/25/25 08:25 DC 04/25/25 04:14 0.5 MG Hydromorphone HCl (DiLAUDid 1MG INJ) 1 mg TID PRN IVP SEVERE PAIN (7-10) 05/01/25 19:00 05/05/25 12:59 DC Hydromorphone HCl (DiLAUDid 1MG INJ) 1 mg TIDP PRN IVP SEVERE PAIN (7-10) 04/30/25 13:00 05/01/25 18:46 DC 04/30/25 20:44 1 MG Immune Globulin 400 ml @ 0 mls/hr Q24H IV 05/01/25 14:00 05/02/25 12:38 DC 05/01/25 16:18 37.5 MLS/HR Immune Globulin 400 ml @ 0 mls/hr Q24H IV 05/02/25 16:00 05/03/25 16:01 DC 05/02/25 16:46 37.5 MLS/HR Immune Globulin 400 ml @ 0 mls/hr Q24H IV 05/03/25 17:15 05/03/25 17:16 DC 05/03/25 17:57 37.5 MLS/HR Insulin Glargine (LANtus 100 UNITS/ML 10 ML VIAL) 10 units HS SQ 04/24/25 21:00 04/24/25 16:57 DC Insulin Glargine (LANtus 100 UNITS/ML 10 ML VIAL) 10 units ONCE STAT SQ 04/24/25 10:54 04/24/25 11:00 DC 04/24/25 11:19 10 UNITS Insulin Glargine (LANtus 100 UNITS/ML 10 ML VIAL) 15 units HS SQ 04/24/25 21:00 04/24/25 17:06 DC Insulin Glargine (LANtus 100 UNITS/ML 10 ML VIAL) 30 units DAILY SQ 05/05/25 09:00 05/07/25 23:47 DC 05/07/25 08:12 30 UNITS Insulin Glargine (LANtus 100 UNITS/ML 10 ML VIAL) 30 units ONCE SQ 04/24/25 17:00 04/25/25 06:19 DC 04/24/25 18:16 30 UNITS Insulin Glargine (LANtus 100 UNITS/ML 10 ML VIAL) 40 units DAILY SQ 05/08/25 09:00 06/07/25 08:59 05/08/25 08:50 40 UNITS Insulin Glargine (LANtus 100 UNITS/ML 10 ML VIAL) 40 units DAILY SQ 04/29/25 09:00 04/30/25 07:31 DC Insulin Glargine (LANtus 100 UNITS/ML 10 ML VIAL) 50 units DAILY SQ 04/26/25 09:00 04/29/25 06:49 DC 04/28/25 08:46 50 UNITS Insulin Glargine (LANtus 100 UNITS/ML 10 ML VIAL) 50 units DAILY SQ 04/30/25 09:00 05/05/25 07:21 DC 05/04/25 09:30 50 UNITS Insulin Human Regular (humuLIN R 100 UNIT/ML 3ML) 5 unit TIDAC SQ 04/24/25 17:00 04/24/25 17:06 DC Insulin Human Regular (humuLIN R 100 UNIT/ML 3ML) 8 unit TIDAC SQ 04/28/25 07:30 04/30/25 07:31 DC 04/30/25 06:15 8 UNIT Insulin Human Regular (humuLIN R 100 UNIT/ML 3ML) 10 unit TIDAC SQ 05/06/25 07:30 05/07/25 23:47 DC 05/07/25 16:06 10 UNIT Insulin Human Regular (humuLIN R 100 UNIT/ML 3ML) 10 unit TIDAC SQ 04/24/25 17:00 04/25/25 06:17 DC 04/25/25 06:15 10 UNIT Insulin Human Regular (humuLIN R 100 UNIT/ML 3ML) 12 unit TIDAC SQ 05/05/25 07:30 05/05/25 22:51 DC Insulin Human Regular (humuLIN R 100 UNIT/ML 3ML) 12 unit TIDAC SQ 04/30/25 07:30 05/02/25 08:05 DC 05/02/25 06:45 12 UNIT Insulin Human Regular (humuLIN R 100 UNIT/ML 3ML) 15 unit TIDAC SQ 05/02/25 11:30 05/05/25 07:21 DC 05/04/25 17:33 15 UNIT Insulin Human Regular (humuLIN R 100 UNIT/ML 3ML) 15 unit TIDAC SQ 05/08/25 07:30 06/07/25 07:29 05/08/25 12:03 15 UNIT Insulin Human Regular (humuLIN R 100 UNIT/ML 3ML) 15 unit TIDAC SQ 04/26/25 11:30 04/27/25 20:30 DC Insulin Human Regular (humuLIN R 100 UNIT/ML 3ML) 25 unit TIDAC SQ 04/25/25 07:30 04/26/25 07:58 DC 04/25/25 17:39 25 UNIT Insulin Human Regular (humuLIN R 100 UNIT/ML 3ML) INSULIN SLIDING SCAL... ACHS SQ 04/22/25 21:00 04/24/25 16:16 DC 04/24/25 11:18 8 UNIT Insulin Human Regular (humuLIN R 100 UNIT/ML 3ML) INSULIN SLIDING SCAL... ACHS SQ 05/05/25 07:30 06/04/25 07:29 05/08/25 12:04 14 UNIT Insulin Human Regular (humuLIN R 100 UNIT/ML 3ML) INSULIN SLIDING SCAL... ACHS SQ 04/24/25 16:30 04/25/25 14:09 DC 04/25/25 11:57 16 UNIT Insulin Human Regular (humuLIN R 100 UNIT/ML 3ML) INSULIN SLIDING SCAL... ACHS SQ 04/25/25 16:30 05/04/25 23:42 DC 05/04/25 20:49 6 UNIT Insulin Human Regular (humuLIN R 100 UNIT/ML 3ML) INSULIN SLIDING SCAL... Q4H SQ 04/27/25 20:30 04/28/25 09:11 DC 04/28/25 06:00 4 UNIT Lactated Ringer's 1,000 ml @ 100 mls/hr Q10H IV 04/22/25 20:00 04/23/25 10:09 DC 04/23/25 06:00 100 MLS/HR Lactulose (Constulose 20gm/ 30ml Udcup) 30 gm TID PO 04/25/25 11:00 04/30/25 09:45 DC 04/30/25 09:16 30 GM Levothyroxine Sodium (SYNTHroid 125MCG TAB) 125 mcg DAILY@0630 PO 04/25/25 06:30 05/25/25 06:29 05/08/25 06:04 125 MCG Lisinopril (Prinivil 10mg) 10 mg DAILY PO 05/02/25 09:00 06/01/25 08:59 05/08/25 08:49 10 MG Magnesium Sulfate 50 ml @ 0 mls/hr PROTOCOL PRN IV OTHER [SEE ORDER COMMENTS] 04/22/25 20:00 05/22/25 19:59 Methylprednisolone Sodium Succinate (Solu-medROL 125MG) 125 mg Q6H IVP 04/23/25 08:00 04/28/25 09:10 DC 04/25/25 09:45 125 MG Metoprolol Succinate (TopROL XL) 50 mg AM PO 04/25/25 09:00 05/25/25 08:59 05/08/25 08:49 50 MG Ondansetron HCl (zoFRAN 4MG INJ) 4 mg Q6H PRN IV NAUSEA/VOMITING 04/22/25 20:00 05/22/25 19:59 04/22/25 20:10 4 MG Pantoprazole Sodium (PROTonix 40MG INJ) 40 mg DAILY IVP 04/24/25 10:00 05/24/25 09:59 05/08/25 08:48 40 MG Pharmacy Profile Note (Pharmacy Communication) 1 each ONCE MISC 05/01/25 08:00 04/30/25 16:52 DC Pharmacy Profile Note (Pharmacy Communication) 1 each ONCE MISC 05/03/25 12:00 05/03/25 12:58 DC Potassium Chloride 100 ml @ 100 mls/hr AD PRN IV POTASSIUM PROTOCOL 04/22/25 20:00 05/22/25 19:59 Potassium Chloride (K-Dur/Klor-Con 20meq) 20 meq AD PRN PO POTASSIUM PROTOCOL 04/22/25 20:00 05/22/25 19:59 05/03/25 13:10 20 MEQ Potassium Chloride (KCl 10% Elixir 20meq/15ml) 20 meq AD PRN PO POTASSIUM PROTOCOL 04/22/25 20:00 05/22/25 19:59 Pramipexole Dihydrochloride (miraPEX 0.25MG TAB) 0.5 mg HS PO 04/24/25 21:00 05/24/25 20:59 05/07/25 20:36 0.5 MG Pregabalin (LYRica 25MG) 25 mg BID PO 05/01/25 21:00 05/05/25 07:22 DC 05/04/25 09:22 25 MG Pregabalin ([id number]) 75 mg BID PO 04/24/25 21:00 04/24/25 14:49 DC Sodium Chloride 500 ml @ 0 mls/hr Q0M IV 04/25/25 11:00 05/25/25 10:59 Sodium Zirconium Cyclosilicate (Lokelma 10gm Powder) 10 gm TID PO 04/23/25 21:00 04/23/25 14:11 DC Tramadol HCl (UltRAM) 50 mg Q6H PRN PO MODERATE PAIN (4-6) 04/24/25 22:30 04/29/25 22:29 DC 04/28/25 13:55 50 MG Trimethoprim/ Sulfamethoxazole (BactRIM DS) 1 tab BID PO 04/25/25 21:00 04/26/25 14:50 DC 04/25/25 21:51 1 TAB Vancomycin HCl 250 ml @ 125 mls/hr Q12H IV 04/24/25 23:00 04/25/25 12:36 DC 04/25/25 11:43 125 MLS/HR Vancomycin HCl 250 ml @ 125 mls/hr Q12H IV 04/26/25 15:30 04/28/25 03:13 DC 04/27/25 15:22 125 MLS/HR Vancomycin HCl 250 ml @ 125 mls/hr Q12H IV 04/28/25 15:30 04/28/25 18:53 DC Vancomycin HCl 250 ml @ 125 mls/hr Q12H IV 04/28/25 20:00 05/02/25 20:34 DC 05/02/25 10:21 125 MLS/HR Vancomycin HCl 250 ml @ 125 mls/hr Q12H9 IV 05/04/25 21:00 05/14/25 20:59 05/08/25 08:48 125 MLS/HR Vancomycin HCl (Vancomycin Protocol) 1 each AD IV 04/24/25 10:30 04/25/25 12:36 DC Vancomycin HCl (Vancomycin Protocol) 1 each AD IV 04/26/25 15:00 05/10/25 14:59 Venlafaxine HCl (EffEXOR XR 37.5mg CAP) 37.5 mg DAILY PO 04/24/25 16:00 05/05/25 11:18 DC 05/04/25 09:21 37.5 MG Venlafaxine HCl (EffEXOR XR 37.5mg CAP) 37.5 mg DAILY PO 04/25/25 09:00 04/24/25 14:50 DC Venlafaxine HCl (EffEXOR XR 37.5mg CAP) 37.5 mg HS PO 05/05/25 21:00 06/04/25 20:59 05/07/25 20:36 37.5 MG DIAGNOSTICS / RADIOLOGY: [place] [id number] [address] IMAGING REPORT Signed PATIENT: LUCÍA CATALAN MR#: [id number] : 1970 SEX: F AGE: 54 LOCATION: 3[facility] ORDER 0943 STATUS: ADM IN REPORT#: [id number] SERVICE 0941 REASON: SOB, Elevated D-dimer ORDERING PHYSICIAN: GLORIA BORDEN MD PROCEDURE: CXR1VW - CHEST 1VW EXAM: CR Chest, 1 View. CLINICAL HISTORY: SOB, Elevated D-dimer COMPARISON: Radiograph dated May 02, 2025 FINDINGS: Right PICC terminates overlying the SVC. Bibasilar atelectasis. Lungs are otherwise clear. No pleural effusion or pneumothorax. Heart size is stable. Mild central pulmonary vascular congestion. IMPRESSION: 1. No acute cardiopulmonary findings. 2. Right PICC line with appropriate positioning. /[place] DICTATED BY: BROOKLYN LOPEZ Jr., MD DATE: 05/07/251119 ELECTRONICALLY SIGNED BY: BROOKLYN LOPEZ Jr., MD DATE: 05/07/25 [address] [place] [id number] [address] IMAGING REPORT Signed PATIENT: LUCÍA CATALNA MR#: [id number] : 1970 SEX: F AGE: 54 LOCATION: 3[facility] ORDER 0859 STATUS: ADM IN REPORT#: [id number] SERVICE 0857 REASON: Elevated D-dimer ORDERING PHYSICIAN: GLORIA BORDEN MD PROCEDURE: VENOUS LUDWIG - US VENOUS DOPPLER BILATERAL EXAMINATION: SPECTRAL DOPPLER ULTRASOUND EXAMINATION OF THE BILATERAL LOWER EXTREMITY VEINS. CLINICAL HISTORY: Elevated D-dimer. COMPARISON: Duplex lower extremity veins dated 04/09/2025. TECHNIQUE: Real-time ultrasound scan of the veins of the bilateral lower extremity with color Doppler flow, spectral waveform analysis and compression. FINDINGS: DEEP VEINS: The common femoral, superficial femoral, and popliteal veins are echolucent and compressible. There is normal color Doppler flow throughout. The visualized calf veins appear patent. SUPERFICIAL VEINS: The greater saphenous veins are patent and compressible. SOFT TISSUES: No popliteal fossa cyst or other abnormalities. IMPRESSION: No deep venous thrombosis evident in the bilateral lower extremity. No superficial thrombophlebitis in the bilateral lower extremity. 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 Suspected Endocarditis, RAMAN deferred due to bleeding risks; unable to rule out endocarditis Status post nephrostomy tube Renate intertrigo Infectious spondylodiscitis L2-L3 Sepsis, unable to determine POA Acute hypoxic hypercapnic respiratory failure, not POA, resolved AMS due to suspected steroid induced psychosis or hepatic encephalopathy, not POA, resolved Hyperammonemia due to cirrhosis, resolved Intractable low back pain due to spinal stenosis POA Acute urinary tract infection due to MRSA POA Hypervolemic hyponatremia POA Chronic anemia POA Hyponatremia POA Acute kidney injury on renal insufficiency POA Hyperglycemia due to uncontrolled diabetes POA Hypocalcemia POA Cirrhotic liver with splenomegaly consistent with portal hypertension per CT POA Esophageal varices Renal parenchymal disease per CT POA Hypothyroidism POA Hyperlipidemia POA Hypertension POA Anxiety disorder POA Depression POA Restless leg syndrome POA Suspected obstructive sleep apnea untreated POA Morbid obesity POA PLAN: Persistent MRSA bacteremia Osteomyelitis of L2-L3 POA Blood cultures remain positive for gram-positive cocci consistent with MRSA. Blood cultures sent after 4 days of gentamicin, Preliminary reports suggested Gram Positive Cocci PICC line has been removed Currently receiving vancomycin (Day 12) and gentamicin (Day 5) per Infectious Disease (ID) recommendations. Vancomycin trough level has decreased from 18.1 to 0.2. Monitor vancomycin trough level Maintain contact precautions for infection control. Repeat blood cultures per Infectious Disease protocol to monitor clearance of bacteremia. Patient will require a 6-week course of IV antibiotics; case management will assist with arranging appropriate placement for long-term IV therapy. Thrombocytopenia due to ITP DIC panel workup As per Dr Lorenzo, trying to get her Promacta when available (medicine that raises the platelets) PT is 17.2, INR 1.71, APTT 36.3 and Fibrinogen 119. D-dimer is 7184. Plan for V/Q scan, CTPA, US Venous Doppler Platelets has been transfused, but platelets is still decreasing 16K. Continue to follow Hematology recommendations for ongoing management of thrombocytopenia. Monitor platelet counts daily. Monitor for bleeding or thrombotic complications. Altered Mental Status due to Hepatic Encephalopathy or steroids induced psychosis, resolved Monitor ammonia levels, mental status, and signs of worsening encephalopathy. Monitor neuro status and reassess mental status regularly with steroid adjustments. Intractable lower back pain, resolving Per Dr. Sanchez, possible diagnosis of discitis and osteomyelitis at L2-L3 along with psoas inflammation. Continue multimodal pain management: acetaminophen, topical agents Pregabalin will be discontinued due to concern for possible medication-induced slurred speech. CT head showed no evidence of acute intracranial abnormalities. Neuro checks q4 Acute UTI, resolved Monitor for signs of urosepsis Encourage hydration and bladder care Hyponatremia, resolved Monitor serum Na closely; consider fluid restriction if dilutional. Renate intertrigo Patient is improving significantly The patient was given fluconazole 150 mg 1 dose today, gradually resolving Cirrhosis with portal hypertension Fecal occult blood test positive Liver enzymes are elevated with total bilirubin of 1.6, AST 166, ALT 136 and ALP 358. Monitor for decompensation: encephalopathy, ascites, variceal bleeding. Consider beta sergio for variceal prophylaxis. Monitor LFTs, INR, and ammonia Her MELD- Na score is 24 points, 14-15% estimated 90 day mortality Hyperglycemia (Uncontrolled Diabetes) Decrease Lantus to 30 units daily as per endocrinology recommendations, and continue for regular insulin 12 units qac before meals. Decrease high dose SSI to medium dose SSI Monitor blood glucose QID Educate on diet and insulin compliance; monitor for DKA if concern. Correct electrolytes accordingly. Chronic anemia H/o esophageal varices due to cirrhosis with portal hypertension Per GI, hold off on EGD given no overt GI bleeding and stable hemoglobin Monitor trends, H&H daily Avoid transfusion unless symptomatic or Hgb <7. We will order morning labs. Further orders per hospitalization course. ATTESTATION BY PHYSICIAN I have seen and examined the patient. I reviewed the documentation, medical decision making, and treatment plan as noted by the resident provider above. I agree with the findings and plan of care. Curtis Sanchez MD, SUZIT MD May 08, 2025 16:35
--- NOTE | 2025-05-08 16:48 | PN ---
GASTROENTEROLOGY PROGRESS NOTE Date of Visit: May 08, 2025 Time of Visit: 16:48 Events / Notes: [ ] Review of Systems: CONSTITUTIONAL: No malaise or change in sensation of wellbeing. ENMT: No rhinorrhea, otorrhea, sinus pain, ear ache. CARDIOVASCULAR: No angina, palpitations, orthopnea or paroxysmal dyspnea. RESPIRATORY: No SOB. GASTROINTESTINAL: No abdominal pain, nausea, vomiting, diarrhea, hematemesis, melena or change in the patient's habitual bowel movements consistency/number. GENITOURINARY: No dysuria, hematuria or change in bladder continence. MUSCULOSKELETAL: No new muscle pain or decrease in muscular strength. No new joint swelling, redness or tenderness. SKIN: No new rash. Physical Exam: GEN: Awake, alert, oriented in person, time and place, and in no acute distress. HEENT: No sinus tenderness. Tympanic membranes were not examined. No rhinorrhea. Oral pharyngeal mucosa is pink, moist and within normal limits. Neck is supple with no cervical lymphadenopathy, thyromegaly or JVD. CHEST: Inspection, palpation and percussion of the chest were unremarkable. Lung auscultation revealed normal breath sounds bilaterally. CARDIAC: PMI is within normal limits. Heart sounds are regular. Normal S1, S2. No gallop or murmur. ABD: Soft, non-tender and not distended. No peritoneal signs on palpation. No organomegaly. Normal bowel sounds. EXT: No cyanosis or clubbing. No edema. SKIN: Intact. No rashes. JOINTS: No evidence of synovitis or acute arthritis. NEURO: Alert and oriented to name, place and person. Cranial nerve examination is unremarkable. No focal motor deficits. Normal speech. Gait is normal. Strength is normal. Vital Signs (last 8hr) Date Time Temp Pulse Resp B/P (MAP) Pulse Ox O2 Delivery O2 Flow Rate FiO2 05/08/25 16:00 98.1 61 20 123/48 97 Room Air 21 05/08/25 11:51 97.9 64 20 131/51 91 Room Air 21 Laboratory: [ ] Laboratory: Test 05/08/25 10:57 05/08/25 06:33 05/07/25 10:01 05/07/25 05:35 Range/Units Whole Blood Glucose 314 #H 70-110 MG/DL White Blood Count 5.6 4.8-10.8 K/uL Red Blood Count 3.49 L 4.00-5.50 MIL/uL Hemoglobin 9.1 L 12.0-16.0 g/dL Hematocrit 28.4 L 36-48 % Mean Corpuscular Volume 81.4 79-99 fL Mean Corpuscular Hemoglobin 26.1 L 27.0-33.0 pg Mean Corpuscular Hemoglobin Concent 32.0 32.0-36.0 g/dL Red Cell Distribution Width 24.3 H 11.0-15.5 % Platelet Count 32 L 130-400 K/uL Mean Platelet Volume 7.5-10.5 fL Immature Granulocyte % (Auto) 1.1 H 0-1 % Neutrophils (%) (Auto) 87.8 H 40.0-77.0 % Lymphocytes (%) (Auto) 5.2 L 21.0-51.0 % Monocytes (%) (Auto) 5.7 3.0-13.0 % Eosinophils (%) (Auto) 0.0 0.0-8.0 % Basophils (%) (Auto) 0.2 0.0-5.0 % Neutrophils # (Auto) 4.9 1.8-7.7 K/uL Lymphocytes # (Auto) 0.3 L 1.0-4.8 K/uL Monocytes # (Auto) 0.3 0.1-1.0 K/uL Eosinophils # (Auto) 0.00 0.00-0.70 K/uL Basophils # (Auto) 0.01 0.00-0.20 K/uL Absolute Immature Granulocyte (auto 0.06 0-1 K/uL Nucleated Red Blood Cells 0.0 0.0-0.19 % Prothrombin Time 16.0 H 9.6-11.6 SEC Prothromb Time International Ratio 1.58 H 0.85-1.15 Activated Partial Thromboplast Time 35.0 26.3-35.5 SEC Fibrinogen 122 L 180-350 mg/dL D-Dimer Quantitative (PE/DVT) 6586 *H 0-500 ng/mL Sodium Level 137 136-145 mmol/L Potassium Level 4.6 3.5-5.1 mmol/L Chloride Level 106 101-111 mmol/L Carbon Dioxide Level 28 21-32 mmol/L Blood Urea Nitrogen 34 H 7-18 mg/dL Creatinine 1.2 H 0.5-1.0 mg/dL Glomerular Filtration Rate Calc 53 >90 mL/min Random Glucose 197 H 70-105 mg/dL Total Calcium 8.4 L 8.5-10.1 mg/dL Total Bilirubin 1.9 H 0.2-1.0 mg/dL Aspartate Amino Transf (AST/SGOT) 102 H 10-37 U/L Alanine Aminotransferase (ALT/SGPT) 124 H 12-78 U/L Alkaline Phosphatase 391 H 50-136 U/L Total Protein 7.9 6.0-8.3 g/dL Albumin 1.5 L 3.5-5.0 g/dL Stool Occult Blood POSITIVE H NEGATIVE Segmented Neutrophils % 97 H 40-70 % Lymphocytes % (Manual) 2 L 22-44 % Monocytes % (Manual) 1 L 2-9 % Differential Comment MANUAL DIFFERENTIAL White Cell Morphology Comment Platelet Morphology Comment MARKED DECREASE Red Blood Cell Morphology See comments Current Medications Medications (Trade) Dose Ordered Sig/Roberth Route PRN Reason Start Time Stop Time Status Last Admin Dose Admin Acetaminophen (TYLenol 325MG TAB) 650 mg Q4H PRN PO MILD PAIN (1-3) 04/22/25 20:00 05/22/25 19:59 04/30/25 06:17 650 MG Acetaminophen (TYLenol 325MG TAB) 650 mg Q6H PRN PO TEMPERATURE GREATER THAN 101.5 04/22/25 20:00 05/22/25 19:59 04/23/25 10:02 650 MG Acetaminophen/ Hydrocodone Bitart (NORco 5/325MG) 1 tab Q4H PRN PO MODERATE PAIN (4-6) 04/30/25 12:00 05/05/25 11:59 DC 04/30/25 22:07 1 TAB Atorvastatin Calcium (LIPItor 20MG) 20 mg HS PO 04/24/25 21:00 05/24/25 20:59 05/07/25 20:36 20 MG Ceftriaxone Sodium 1 gm/ Sodium Chloride 50 ml @ 100 mls/hr BID IV 04/22/25 21:00 04/22/25 19:59 DC Ceftriaxone Sodium (ROCEphine 1G INJ) 1 gm BID IVPB 04/22/25 21:00 04/22/25 20:44 DC Ceftriaxone Sodium (ROCEphine 1G INJ) 1 gm BID IVPB 04/23/25 09:00 04/25/25 12:36 DC 04/25/25 09:44 1 GM Dexamethasone Sodium Phosphate (dexaMETHasone 4MG/ML 1ML VIAL) 20 mg ONCALL IV 05/01/25 15:30 05/03/25 15:31 DC 05/02/25 15:41 20 MG Dexamethasone Sodium Phosphate (dexaMETHasone 4MG/ML 1ML VIAL) 20 mg ONCALL IV 05/03/25 17:15 05/03/25 17:16 DC 05/03/25 17:23 20 MG Dexamethasone Sodium Phosphate (dexaMETHasone 4MG/ML 1ML VIAL) 20 mg ONCE PRN IV PRE-MED 05/01/25 15:00 05/01/25 15:05 DC Dexmedetomidine/ Sodium Chloride (PRECEdex 200MCG/ 50ML-NS) 200 mcg PROTOCOL IV 04/26/25 12:00 04/26/25 14:54 DC Dexmedetomidine/ Sodium Chloride (PRECEdex 400MCG/ 100ML-NS) 400 mcg PROTOCOL PRN IV ANXIETY/AGITATION 04/26/25 19:30 05/01/25 12:45 DC 04/27/25 23:31 400 MCG Dexmedetomidine/ Sodium Chloride (PRECEdex 400MCG/ 100ML-NS) 400 mcg PROTOCOL STAT IV 04/26/25 14:53 04/26/25 14:58 DC 04/26/25 15:18 400 MCG Dextrose 1,000 ml @ 75 mls/hr [id number] IV 04/26/25 12:00 04/30/25 09:36 DC 04/29/25 04:27 150 MLS/HR Dextrose (D50w) 50 ml AD PRN IV HYPOGLYCEMIA PROTOCOL 04/22/25 20:00 05/22/25 19:59 Diphenhydramine HCl (BENAdryl INJ) 25 mg ONCALL IVP 05/01/25 15:30 05/03/25 15:31 DC 05/02/25 15:41 25 MG Diphenhydramine HCl (BENAdryl INJ) 25 mg ONCALL IVP 05/03/25 17:15 05/03/25 17:16 DC 05/03/25 17:22 25 MG Diphenhydramine HCl (BENAdryl INJ) 25 mg ONCE PRN IVP PRE-MED 05/01/25 15:00 05/01/25 15:06 DC Famotidine (Pepcid 20mg Tab) 20 mg DAILY PO 04/23/25 09:00 7/3/25 09:48 DC 04/23/25 09:33 20 MG Gabapentin (NEURontin 300 MG CAP) 300 mg BID PO 04/24/25 21:00 04/28/25 09:10 DC 04/25/25 21:51 300 MG Gentamicin Sulfate/Sodium Chloride 100 ml @ 200 mls/hr Q24H IV 05/03/25 14:00 05/13/25 13:59 05/08/25 14:18 200 MLS/HR Glucagon (Glucagon 1mg Kit) 1 mg AD PRN IM HYPOGLYCEMIA PROTOCOL 04/22/25 20:00 05/22/25 19:59 Heparin Sodium (Porcine) (HEParin 5,000 UNIT VIAL) 5,000 unit Q8H SQ 04/25/25 09:00 04/25/25 08:40 DC Hydromorphone HCl (DiLAUDid 0.5MG INJ) 0.5 mg BIDPRN PRN IVP SEVERE PAIN (7-10) 04/25/25 19:00 04/30/25 11:59 DC 04/29/25 23:31 0.5 MG Hydromorphone HCl (DiLAUDid 0.5MG INJ) 0.5 mg Q6H PRN IVP SEVERE PAIN (7-10) 04/23/25 14:00 04/25/25 08:25 DC 04/25/25 04:14 0.5 MG Hydromorphone HCl (DiLAUDid 1MG INJ) 1 mg TID PRN IVP SEVERE PAIN (7-10) 05/01/25 19:00 05/05/25 12:59 DC Hydromorphone HCl (DiLAUDid 1MG INJ) 1 mg TIDP PRN IVP SEVERE PAIN (7-10) 04/30/25 13:00 05/01/25 18:46 DC 04/30/25 20:44 1 MG Immune Globulin 400 ml @ 0 mls/hr Q24H IV 05/01/25 14:00 05/02/25 12:38 DC 05/01/25 16:18 37.5 MLS/HR Immune Globulin 400 ml @ 0 mls/hr Q24H IV 05/02/25 16:00 05/03/25 16:01 DC 05/02/25 16:46 37.5 MLS/HR Immune Globulin 400 ml @ 0 mls/hr Q24H IV 05/03/25 17:15 05/03/25 17:16 DC 05/03/25 17:57 37.5 MLS/HR Insulin Glargine (LANtus 100 UNITS/ML 10 ML VIAL) 10 units HS SQ 04/24/25 21:00 04/24/25 16:57 DC Insulin Glargine (LANtus 100 UNITS/ML 10 ML VIAL) 10 units ONCE STAT SQ 04/24/25 10:54 04/24/25 11:00 DC 04/24/25 11:19 10 UNITS Insulin Glargine (LANtus 100 UNITS/ML 10 ML VIAL) 15 units HS SQ 04/24/25 21:00 04/24/25 17:06 DC Insulin Glargine (LANtus 100 UNITS/ML 10 ML VIAL) 30 units DAILY SQ 05/05/25 09:00 05/07/25 23:47 DC 05/07/25 08:12 30 UNITS Insulin Glargine (LANtus 100 UNITS/ML 10 ML VIAL) 30 units ONCE SQ 04/24/25 17:00 04/25/25 06:19 DC 04/24/25 18:16 30 UNITS Insulin Glargine (LANtus 100 UNITS/ML 10 ML VIAL) 40 units DAILY SQ 05/08/25 09:00 06/07/25 08:59 05/08/25 08:50 40 UNITS Insulin Glargine (LANtus 100 UNITS/ML 10 ML VIAL) 40 units DAILY SQ 04/29/25 09:00 04/30/25 07:31 DC Insulin Glargine (LANtus 100 UNITS/ML 10 ML VIAL) 50 units DAILY SQ 04/26/25 09:00 04/29/25 06:49 DC 04/28/25 08:46 50 UNITS Insulin Glargine (LANtus 100 UNITS/ML 10 ML VIAL) 50 units DAILY SQ 04/30/25 09:00 05/05/25 07:21 DC 05/04/25 09:30 50 UNITS Insulin Human Regular (humuLIN R 100 UNIT/ML 3ML) 5 unit TIDAC SQ 04/24/25 17:00 04/24/25 17:06 DC Insulin Human Regular (humuLIN R 100 UNIT/ML 3ML) 8 unit TIDAC SQ 04/28/25 07:30 04/30/25 07:31 DC 04/30/25 06:15 8 UNIT Insulin Human Regular (humuLIN R 100 UNIT/ML 3ML) 10 unit TIDAC SQ 05/06/25 07:30 05/07/25 23:47 DC 05/07/25 16:06 10 UNIT Insulin Human Regular (humuLIN R 100 UNIT/ML 3ML) 10 unit TIDAC SQ 04/24/25 17:00 04/25/25 06:17 DC 04/25/25 06:15 10 UNIT Insulin Human Regular (humuLIN R 100 UNIT/ML 3ML) 12 unit TIDAC SQ 05/05/25 07:30 05/05/25 22:51 DC Insulin Human Regular (humuLIN R 100 UNIT/ML 3ML) 12 unit TIDAC SQ 04/30/25 07:30 05/02/25 08:05 DC 05/02/25 06:45 12 UNIT Insulin Human Regular (humuLIN R 100 UNIT/ML 3ML) 15 unit TIDAC SQ 05/02/25 11:30 05/05/25 07:21 DC 05/04/25 17:33 15 UNIT Insulin Human Regular (humuLIN R 100 UNIT/ML 3ML) 15 unit TIDAC SQ 05/08/25 07:30 06/07/25 07:29 05/08/25 12:03 15 UNIT Insulin Human Regular (humuLIN R 100 UNIT/ML 3ML) 15 unit TIDAC SQ 04/26/25 11:30 04/27/25 20:30 DC Insulin Human Regular (humuLIN R 100 UNIT/ML 3ML) 25 unit TIDAC SQ 04/25/25 07:30 04/26/25 07:58 DC 04/25/25 17:39 25 UNIT Insulin Human Regular (humuLIN R 100 UNIT/ML 3ML) INSULIN SLIDING SCAL... ACHS SQ 04/22/25 21:00 04/24/25 16:16 DC 04/24/25 11:18 8 UNIT Insulin Human Regular (humuLIN R 100 UNIT/ML 3ML) INSULIN SLIDING SCAL... ACHS SQ 05/05/25 07:30 06/04/25 07:29 05/08/25 12:04 14 UNIT Insulin Human Regular (humuLIN R 100 UNIT/ML 3ML) INSULIN SLIDING SCAL... ACHS SQ 04/24/25 16:30 04/25/25 14:09 DC 04/25/25 11:57 16 UNIT Insulin Human Regular (humuLIN R 100 UNIT/ML 3ML) INSULIN SLIDING SCAL... ACHS SQ 04/25/25 16:30 05/04/25 23:42 DC 05/04/25 20:49 6 UNIT Insulin Human Regular (humuLIN R 100 UNIT/ML 3ML) INSULIN SLIDING SCAL... Q4H SQ 04/27/25 20:30 04/28/25 09:11 DC 04/28/25 06:00 4 UNIT Lactated Ringer's 1,000 ml @ 100 mls/hr Q10H IV 04/22/25 20:00 04/23/25 10:09 DC 04/23/25 06:00 100 MLS/HR Lactulose (Constulose 20gm/ 30ml Udcup) 30 gm TID PO 04/25/25 11:00 04/30/25 09:45 DC 04/30/25 09:16 30 GM Levothyroxine Sodium (SYNTHroid 125MCG TAB) 125 mcg DAILY@0630 PO 04/25/25 06:30 05/25/25 06:29 05/08/25 06:04 125 MCG Lisinopril (Prinivil 10mg) 10 mg DAILY PO 05/02/25 09:00 06/01/25 08:59 05/08/25 08:49 10 MG Magnesium Sulfate 50 ml @ 0 mls/hr PROTOCOL PRN IV OTHER [SEE ORDER COMMENTS] 04/22/25 20:00 05/22/25 19:59 Methylprednisolone Sodium Succinate (Solu-medROL 125MG) 125 mg Q6H IVP 04/23/25 08:00 04/28/25 09:10 DC 04/25/25 09:45 125 MG Metoprolol Succinate (TopROL XL) 50 mg AM PO 04/25/25 09:00 05/25/25 08:59 05/08/25 08:49 50 MG Ondansetron HCl (zoFRAN 4MG INJ) 4 mg Q6H PRN IV NAUSEA/VOMITING 04/22/25 20:00 05/22/25 19:59 04/22/25 20:10 4 MG Pantoprazole Sodium (PROTonix 40MG INJ) 40 mg DAILY IVP 04/24/25 10:00 05/24/25 09:59 05/08/25 08:48 40 MG Pharmacy Profile Note (Pharmacy Communication) 1 each ONCE MISC 05/01/25 08:00 04/30/25 16:52 DC Pharmacy Profile Note (Pharmacy Communication) 1 each ONCE MIS 05/03/25 12:00 05/03/25 12:58 DC Potassium Chloride 100 ml @ 100 mls/hr AD PRN IV POTASSIUM PROTOCOL 04/22/25 20:00 05/22/25 19:59 Potassium Chloride (K-Dur/Klor-Con 20meq) 20 meq AD PRN PO POTASSIUM PROTOCOL 04/22/25 20:00 05/22/25 19:59 05/03/25 13:10 20 MEQ Potassium Chloride (KCl 10% Elixir 20meq/15ml) 20 meq AD PRN PO POTASSIUM PROTOCOL 04/22/25 20:00 05/22/25 19:59 Pramipexole Dihydrochloride (miraPEX 0.25MG TAB) 0.5 mg HS PO 04/24/25 21:00 05/24/25 20:59 05/07/25 20:36 0.5 MG Pregabalin (LYRica 25MG) 25 mg BID PO 05/01/25 21:00 05/05/25 07:22 DC 05/04/25 09:22 25 MG Pregabalin ([id number]) 75 mg BID PO 04/24/25 21:00 04/24/25 14:49 DC Sodium Chloride 500 ml @ 0 mls/hr Q0M IV 04/25/25 11:00 05/25/25 10:59 Sodium Zirconium Cyclosilicate (Lokelma 10gm Powder) 10 gm TID PO 04/23/25 21:00 04/23/25 14:11 DC Tramadol HCl (UltRAM) 50 mg Q6H PRN PO MODERATE PAIN (4-6) 04/24/25 22:30 04/29/25 22:29 DC 04/28/25 13:55 50 MG Trimethoprim/ Sulfamethoxazole (BactRIM DS) 1 tab BID PO 04/25/25 21:00 04/26/25 14:50 DC 04/25/25 21:51 1 TAB Vancomycin HCl 250 ml @ 125 mls/hr Q12H IV 04/24/25 23:00 04/25/25 12:36 DC 04/25/25 11:43 125 MLS/HR Vancomycin HCl 250 ml @ 125 mls/hr Q12H IV 04/26/25 15:30 04/28/25 03:13 DC 04/27/25 15:22 125 MLS/HR Vancomycin HCl 250 ml @ 125 mls/hr Q12H IV 04/28/25 15:30 04/28/25 18:53 DC Vancomycin HCl 250 ml @ 125 mls/hr Q12H IV 04/28/25 20:00 05/02/25 20:34 DC 05/02/25 10:21 125 MLS/HR Vancomycin HCl 250 ml @ 125 mls/hr Q12H9 IV 05/04/25 21:00 05/14/25 20:59 05/08/25 08:48 125 MLS/HR Vancomycin HCl (Vancomycin Protocol) 1 each AD IV 04/24/25 10:30 04/25/25 12:36 DC Vancomycin HCl (Vancomycin Protocol) 1 each AD IV 04/26/25 15:00 05/10/25 14:59 Venlafaxine HCl (EffEXOR XR 37.5mg CAP) 37.5 mg DAILY PO 04/24/25 16:00 05/05/25 11:18 DC 05/04/25 09:21 37.5 MG Venlafaxine HCl (EffEXOR XR 37.5mg CAP) 37.5 mg DAILY PO 04/25/25 09:00 04/24/25 14:50 DC Venlafaxine HCl (EffEXOR XR 37.5mg CAP) 37.5 mg HS PO 05/05/25 21:00 06/04/25 20:59 05/07/25 20:36 37.5 MG Diagnostics / Radiology: [COPY/PASTE HERE IF NO REPORTS PLEASE DELETE SECTION] Assessment: Decompensated cirrhosis HTN Esophageal varies Plan: Patient with known cirrhosis however lost to follow-up. Hold off on EGD given no overt GI bleeding and stable hemoglobin We will monitor closely BEHZAD KOCH COURTESY CLERK May 08, 2025 16:48
--- NOTE | 2025-05-08 16:57 | PN ---
INFECTIOUS DISEASE PROGRESS NOTE Date of Service: May 08, 2025 SUBJECTIVE: Patient was seen and examined at bedside in room 314. Patient is awake, alert and oriented x3. No fever this morning, temperature is 97.7. Preliminary repeat blood cultures growing Gram-positive cocci in clusters. We will repeat blood cultures in a.m. Continue Vancomycin and gentamicin. Per report patient will be having a white blood cell imaging scan tomorrow to rule out source of bacteremia due to patient is not a candidate for a RAMAN. Participation with physical therapy slowly improving. We will continue to monitor patient. PHYSICAL EXAM EYES: Anicteric. Pupils equal and reactive. HENT: No oral thrush seen, moist Oral mucosa NECK: Supple, no JVD or thyromegaly. LUNGS: Good air entry. No rales, no rhonchi. CARDIOVASCULAR: S1, S2 regular. No murmur heard. ABDOMEN: Soft, non tender, bowel sounds present, no organomegaly. SKIN: No rashes, no swelling. LYMPHATICS: No peripheral lymphadenopathy MUSCULOSKELETAL: No joint swelling, erythema or tenderness. EXTREMITIES: No cyanosis or clubbing. Generalized weakness. BACK: No deformity, no pressure ulcer. Right nephrostomy tube. GENITOURINARY: No dysuria or hematuria, Nolasco catheter. Vital Sign (Last 12 Hours) 05/08/25 05/08/25 05/08/25 05/08/25 08:00 08:00 11:51 16:00 Temp 97.7 97.9 98.1 Pulse 67 64 61 Resp 18 20 20 B/P (MAP) 143/58 131/51 123/48 Pulse Ox 93 95 91 97 O2 Delivery Room Air Room Air* Room Air Room Air O2 Flow Rate 0 FiO2 21 21 21 21 Intake & Output (last 24hrs) 05/07/25 05/07/25 05/08/25 15:00 23:00 07:00 Intake Total 2190.0 ml Output Total 295 ml 460 ml 600 ml Balance -295 ml 1730.0 ml -600 ml LABS: Laboratory: Test 05/08/25 10:57 05/08/25 06:33 05/07/25 10:01 05/07/25 05:35 Range/Units Whole Blood Glucose 314 #H 70-110 MG/DL White Blood Count 5.6 4.8-10.8 K/uL Red Blood Count 3.49 L 4.00-5.50 MIL/uL Hemoglobin 9.1 L 12.0-16.0 g/dL Hematocrit 28.4 L 36-48 % Mean Corpuscular Volume 81.4 79-99 fL Mean Corpuscular Hemoglobin 26.1 L 27.0-33.0 pg Mean Corpuscular Hemoglobin Concent 32.0 32.0-36.0 g/dL Red Cell Distribution Width 24.3 H 11.0-15.5 % Platelet Count 32 L 130-400 K/uL Mean Platelet Volume 7.5-10.5 fL Immature Granulocyte % (Auto) 1.1 H 0-1 % Neutrophils (%) (Auto) 87.8 H 40.0-77.0 % Lymphocytes (%) (Auto) 5.2 L 21.0-51.0 % Monocytes (%) (Auto) 5.7 3.0-13.0 % Eosinophils (%) (Auto) 0.0 0.0-8.0 % Basophils (%) (Auto) 0.2 0.0-5.0 % Neutrophils # (Auto) 4.9 1.8-7.7 K/uL Lymphocytes # (Auto) 0.3 L 1.0-4.8 K/uL Monocytes # (Auto) 0.3 0.1-1.0 K/uL Eosinophils # (Auto) 0.00 0.00-0.70 K/uL Basophils # (Auto) 0.01 0.00-0.20 K/uL Absolute Immature Granulocyte (auto 0.06 0-1 K/uL Nucleated Red Blood Cells 0.0 0.0-0.19 % Prothrombin Time 16.0 H 9.6-11.6 SEC Prothromb Time International Ratio 1.58 H 0.85-1.15 Activated Partial Thromboplast Time 35.0 26.3-35.5 SEC Fibrinogen 122 L 180-350 mg/dL D-Dimer Quantitative (PE/DVT) 6586 *H 0-500 ng/mL Sodium Level 137 136-145 mmol/L Potassium Level 4.6 3.5-5.1 mmol/L Chloride Level 106 101-111 mmol/L Carbon Dioxide Level 28 21-32 mmol/L Blood Urea Nitrogen 34 H 7-18 mg/dL Creatinine 1.2 H 0.5-1.0 mg/dL Glomerular Filtration Rate Calc 53 >90 mL/min Random Glucose 197 H 70-105 mg/dL Total Calcium 8.4 L 8.5-10.1 mg/dL Total Bilirubin 1.9 H 0.2-1.0 mg/dL Aspartate Amino Transf (AST/SGOT) 102 H 10-37 U/L Alanine Aminotransferase (ALT/SGPT) 124 H 12-78 U/L Alkaline Phosphatase 391 H 50-136 U/L Total Protein 7.9 6.0-8.3 g/dL Albumin 1.5 L 3.5-5.0 g/dL Stool Occult Blood POSITIVE H NEGATIVE Segmented Neutrophils % 97 H 40-70 % Lymphocytes % (Manual) 2 L 22-44 % Monocytes % (Manual) 1 L 2-9 % Differential Comment MANUAL DIFFERENTIAL White Cell Morphology Comment Platelet Morphology Comment MARKED DECREASE Red Blood Cell Morphology See comments DIAGNOSIS/RADIOLOGY PATIENT: LUCÍA CATALAN ACCT: [id number] LOC: [facility] U: [id number] AGE/SX: 54/F ROOM: [facility] RE04/22/[address]: TERRIE MENDOZA MD : 1970 BED: 1 DIS: STATUS: ADM IN TLOC: SPEC: [id number] EVERARDO: 05/07/25 STATUS: RES REQ: [id number] RECD: 05/07/[address]: CAT GOMES [employer] ADVISER SOURCE: BLOOD ENTR: 05/07/[address]: EDNA SOARES MD SPDC: BLOOD CARLENE CAMARILLO MD,GALINDO ADAMSON,TERRIE WAGONER MD, MD,SANNA STEIN,GABE VANG,PARAG VAIL,QASIM ROBLEDO,CARLENE PIERCE,DANIEL FAY,JOVI DO ORDERED: AERO ID & SENS Procedure Result Mini Date-Time AEROBIC ID & SENSITIVITIES Preliminary 05/08/25-0633 MRL COLONY DESCRIPTION: DAY 1: GRAM STAIN FROM BLOOD CULTURE BOTTLE GRAM POSITIVE COCCI IN CLUSTERS ISOLATION IN PROGRESS PEDIATRIC BOTTLE Test(s) performed by: [facility] [address] [place] [address] ASSESSMENT: Methicillin-resistant Staphylococcus aureus bacteremia. Urinary tract infection with methicillin-resistant Staphylococcus aureus. L2 and L3 intervertebral disc osteomyelitis.. Right Hydronephrosis, s/p right nephrostomy tube placement on 04/29/2025. Non-ketotic hyperglycemia. Urinary retention requiring Nolasco catheter placement. Morbid obesity. Thrombocytopenia requiring platelet transfusion.. Diabetes mellitus. Debility. PLAN: Repeat blood culture in a.m. Continue Gentamicin IV. Continue vancomycin per pharmacy protocol. Continue GI prophylaxis. Continue pain management. Continue antidiabetic. Case management working on placement to [facility]. Patient will need 6 weeks of IV antibiotics. Continue physical therapy. This case was reviewed and discussed with my supervising physician and the above assessment and plan was formulated and agreed upon. ATTESTATION BY PHYSICIAN I have seen and examined the patient. I reviewed the documentation, medical decision making, and treatment plan as noted by the mid-level provider above. I agree with the findings and plan of care. EDNA SOARES MD, MIRTA L [facility] May 08, 2025 16:57
[2025-05-08 21:23] VITALS: BP 137/43; PULSE 74; RESP 18; TEMP 97.9
[2025-05-08] MEDS: VANCOMYCIN 750MG VIAL IVPB SCH (22:01)
[2025-05-09] VITALS (7 sets, daily range): BP systolic 127–143; BP diastolic 42–60; PULSE 64–82; RESP 17–20; TEMP 97.6–98; O2SAT 97
[2025-05-09 03:16] LABS: NUCLEATED RED BLOOD CELLS 0.0 % (0.0-0.19); PLATELET COUNT (AUTO) 21 K/uL (130-400); RED BLOOD CELL COUNT(AUTO) 3.37 MIL/uL (4.00-5.50); RED CELL DISTRIBUTION WIDTH 24.1 % (11.0-15.5); WHITE BLOOD COUNT (AUTO) 6.2 K/uL (4.8-10.8)
[2025-05-09 03:26] LABS: ASPARTATE AMINOTRANSFERASE 128.0 U/L (10-37); CREATININE 1.2 mg/dL (0.5-1.0); GLOMERULAR FILTR. RATE CALC 53.0 mL/min (>90); GLUCOSE,RANDOM 236.0 mg/dL (70-105); SODIUM SERUM 135.0 mmol/L (136-145); TOTAL PROTEIN, SERUM 7.4 g/dL (6.0-8.3); UREA NITROGEN, BLOOD 41.0 mg/dL (7-18)
--- NOTE | 2025-05-09 08:11 | PN ---
GASTROENTEROLOGY PROGRESS NOTE Date of Visit: May 09, 2025 Time of Visit: 08:08 Events / Notes: [ ] Review of Systems: CONSTITUTIONAL: No malaise or change in sensation of wellbeing. ENMT: No rhinorrhea, otorrhea, sinus pain, ear ache. CARDIOVASCULAR: No angina, palpitations, orthopnea or paroxysmal dyspnea. RESPIRATORY: No SOB. GASTROINTESTINAL: No abdominal pain, nausea, vomiting, diarrhea, hematemesis, melena or change in the patient's habitual bowel movements consistency/number. GENITOURINARY: No dysuria, hematuria or change in bladder continence. MUSCULOSKELETAL: No new muscle pain or decrease in muscular strength. No new joint swelling, redness or tenderness. SKIN: No new rash. Physical Exam: GEN: Awake, alert, oriented in person, time and place, and in no acute distress. HEENT: No sinus tenderness. Tympanic membranes were not examined. No rhinorrhea. Oral pharyngeal mucosa is pink, moist and within normal limits. Neck is supple with no cervical lymphadenopathy, thyromegaly or JVD. CHEST: Inspection, palpation and percussion of the chest were unremarkable. Lung auscultation revealed normal breath sounds bilaterally. CARDIAC: PMI is within normal limits. Heart sounds are regular. Normal S1, S2. No gallop or murmur. ABD: Soft, non-tender and not distended. No peritoneal signs on palpation. No organomegaly. Normal bowel sounds. EXT: No cyanosis or clubbing. No edema. SKIN: Intact. No rashes. JOINTS: No evidence of synovitis or acute arthritis. NEURO: Alert and oriented to name, place and person. Cranial nerve examination is unremarkable. No focal motor deficits. Normal speech. Gait is normal. Strength is normal. Vital Signs (last 8hr) Date Time Temp Pulse Resp B/P (MAP) Pulse Ox O2 Delivery O2 Flow Rate FiO2 05/09/25 04:17 97.5 69 20 136/50 99 05/09/25 00:47 98.1 74 20 141/49 100 Room Air Laboratory: [ ] Laboratory: Test 05/09/25 05:53 05/09/25 03:07 05/08/25 20:24 05/08/25 06:33 Range/Units Whole Blood Glucose 150 H 70-110 MG/DL White Blood Count 6.2 4.8-10.8 K/uL Red Blood Count 3.37 L 4.00-5.50 MIL/uL Hemoglobin 8.7 L 12.0-16.0 g/dL Hematocrit 27.6 L 36-48 % Mean Corpuscular Volume 81.9 79-99 fL Mean Corpuscular Hemoglobin 25.8 L 27.0-33.0 pg Mean Corpuscular Hemoglobin Concent 31.5 L 32.0-36.0 g/dL Red Cell Distribution Width 24.1 H 11.0-15.5 % Platelet Count 21 L 130-400 K/uL Mean Platelet Volume 7.5-10.5 fL Nucleated Red Blood Cells 0.0 0.0-0.19 % Sodium Level 135 L 136-145 mmol/L Potassium Level 4.7 3.5-5.1 mmol/L Chloride Level 105 101-111 mmol/L Carbon Dioxide Level 25 21-32 mmol/L Blood Urea Nitrogen 41 H 7-18 mg/dL Creatinine 1.2 H 0.5-1.0 mg/dL Glomerular Filtration Rate Calc 53 >90 mL/min Random Glucose 236 H 70-105 mg/dL Total Calcium 8.3 L 8.5-10.1 mg/dL Total Bilirubin 1.8 H 0.2-1.0 mg/dL Aspartate Amino Transf (AST/SGOT) 128 H 10-37 U/L Alanine Aminotransferase (ALT/SGPT) 139 H 12-78 U/L Alkaline Phosphatase 410 H 50-136 U/L Total Protein 7.4 6.0-8.3 g/dL Albumin 1.4 L 3.5-5.0 g/dL Gentamicin Level Peak 3.2 #L 4.0-8.0 mcg/mL Vancomycin Level Trough 19.7 10.0-20.0 UG/ML Immature Granulocyte % (Auto) 1.1 H 0-1 % Neutrophils (%) (Auto) 87.8 H 40.0-77.0 % Lymphocytes (%) (Auto) 5.2 L 21.0-51.0 % Monocytes (%) (Auto) 5.7 3.0-13.0 % Eosinophils (%) (Auto) 0.0 0.0-8.0 % Basophils (%) (Auto) 0.2 0.0-5.0 % Neutrophils # (Auto) 4.9 1.8-7.7 K/uL Lymphocytes # (Auto) 0.3 L 1.0-4.8 K/uL Monocytes # (Auto) 0.3 0.1-1.0 K/uL Eosinophils # (Auto) 0.00 0.00-0.70 K/uL Basophils # (Auto) 0.01 0.00-0.20 K/uL Absolute Immature Granulocyte (auto 0.06 0-1 K/uL Prothrombin Time 16.0 H 9.6-11.6 SEC Prothromb Time International Ratio 1.58 H 0.85-1.15 Activated Partial Thromboplast Time 35.0 26.3-35.5 SEC Fibrinogen 122 L 180-350 mg/dL D-Dimer Quantitative (PE/DVT) 6586 *H 0-500 ng/mL Test 05/07/25 10:01 Range/Units Stool Occult Blood POSITIVE H NEGATIVE Current Medications Medications (Trade) Dose Ordered Sig/Roberth Route PRN Reason Start Time Stop Time Status Last Admin Dose Admin Acetaminophen (TYLenol 325MG TAB) 650 mg Q4H PRN PO MILD PAIN (1-3) 04/22/25 20:00 05/22/25 19:59 04/30/25 06:17 650 MG Acetaminophen (TYLenol 325MG TAB) 650 mg Q6H PRN PO TEMPERATURE GREATER THAN 101.5 04/22/25 20:00 05/22/25 19:59 04/23/25 10:02 650 MG Acetaminophen/ Hydrocodone Bitart (NORco 5/325MG) 1 tab Q4H PRN PO MODERATE PAIN (4-6) 04/30/25 12:00 05/05/25 11:59 DC 04/30/25 22:07 1 TAB Atorvastatin Calcium (LIPItor 20MG) 20 mg HS PO 04/24/25 21:00 05/24/25 20:59 05/08/25 22:03 20 MG Ceftriaxone Sodium 1 gm/ Sodium Chloride 50 ml @ 100 mls/hr BID IV 04/22/25 21:00 04/22/25 19:59 DC Ceftriaxone Sodium (ROCEphine 1G INJ) 1 gm BID IVPB 04/22/25 21:00 04/22/25 20:44 DC Ceftriaxone Sodium (ROCEphine 1G INJ) 1 gm BID IVPB 04/23/25 09:00 04/25/25 12:36 DC 04/25/25 09:44 1 GM Dexamethasone Sodium Phosphate (dexaMETHasone 4MG/ML 1ML VIAL) 20 mg ONCALL IV 05/01/25 15:30 05/03/25 15:31 DC 05/02/25 15:41 20 MG Dexamethasone Sodium Phosphate (dexaMETHasone 4MG/ML 1ML VIAL) 20 mg ONCALL IV 05/03/25 17:15 05/03/25 17:16 DC 05/03/25 17:23 20 MG Dexamethasone Sodium Phosphate (dexaMETHasone 4MG/ML 1ML VIAL) 20 mg ONCE PRN IV PRE-MED 05/01/25 15:00 05/01/25 15:05 DC Dexmedetomidine/ Sodium Chloride (PRECEdex 200MCG/ 50ML-NS) 200 mcg PROTOCOL IV 04/26/25 12:00 04/26/25 14:54 DC Dexmedetomidine/ Sodium Chloride (PRECEdex 400MCG/ 100ML-NS) 400 mcg PROTOCOL PRN IV ANXIETY/AGITATION 04/26/25 19:30 05/01/25 12:45 DC 04/27/25 23:31 400 MCG Dexmedetomidine/ Sodium Chloride (PRECEdex 400MCG/ 100ML-NS) 400 mcg PROTOCOL STAT IV 04/26/25 14:53 04/26/25 14:58 DC 04/26/25 15:18 400 MCG Dextrose 1,000 ml @ 75 mls/hr [id number] IV 04/26/25 12:00 04/30/25 09:36 DC 04/29/25 04:27 150 MLS/HR Dextrose (D50w) 50 ml AD PRN IV HYPOGLYCEMIA PROTOCOL 04/22/25 20:00 05/22/25 19:59 Diphenhydramine HCl (BENAdryl INJ) 25 mg ONCALL IVP 05/01/25 15:30 05/03/25 15:31 DC 05/02/25 15:41 25 MG Diphenhydramine HCl (BENAdryl INJ) 25 mg ONCALL IVP 05/03/25 17:15 05/03/25 17:16 DC 05/03/25 17:22 25 MG Diphenhydramine HCl (BENAdryl INJ) 25 mg ONCE PRN IVP PRE-MED 05/01/25 15:00 05/01/25 15:06 DC Famotidine (Pepcid 20mg Tab) 20 mg DAILY PO 04/23/25 09:00 04/24/25 09:48 DC 04/23/25 09:33 20 MG Gabapentin (NEURontin 300 MG CAP) 300 mg BID PO 04/24/25 21:00 04/28/25 09:10 DC 04/25/25 21:51 300 MG Gentamicin Sulfate/Sodium Chloride 100 ml @ 200 mls/hr Q12H IV 05/09/25 02:00 05/19/25 01:59 05/09/25 01:36 200 MLS/HR Gentamicin Sulfate/Sodium Chloride 100 ml @ 200 mls/hr Q24H IV 05/03/25 14:00 05/08/25 21:01 DC 05/08/25 14:18 200 MLS/HR Glucagon (Glucagon 1mg Kit) 1 mg AD PRN IM HYPOGLYCEMIA PROTOCOL 04/22/25 20:00 05/22/25 19:59 Heparin Sodium (Porcine) (HEParin 5,000 UNIT VIAL) 5,000 unit Q8H SQ 04/25/25 09:00 04/25/25 08:40 DC Hydromorphone HCl (DiLAUDid 0.5MG INJ) 0.5 mg BIDPRN PRN IVP SEVERE PAIN (7-10) 04/25/25 19:00 04/30/25 11:59 DC 04/29/25 23:31 0.5 MG Hydromorphone HCl (DiLAUDid 0.5MG INJ) 0.5 mg Q6H PRN IVP SEVERE PAIN (7-10) 04/23/25 14:00 04/25/25 08:25 DC 04/25/25 04:14 0.5 MG Hydromorphone HCl (DiLAUDid 1MG INJ) 1 mg TID PRN IVP SEVERE PAIN (7-10) 05/01/25 19:00 05/05/25 12:59 DC Hydromorphone HCl (DiLAUDid 1MG INJ) 1 mg TIDP PRN IVP SEVERE PAIN (7-10) 04/30/25 13:00 05/01/25 18:46 DC 04/30/25 20:44 1 MG Immune Globulin 400 ml @ 0 mls/hr Q24H IV 05/01/25 14:00 05/02/25 12:38 DC 05/01/25 16:18 37.5 MLS/HR Immune Globulin 400 ml @ 0 mls/hr Q24H IV 05/02/25 16:00 05/03/25 16:01 DC 05/02/25 16:46 37.5 MLS/HR Immune Globulin 400 ml @ 0 mls/hr Q24H IV 05/03/25 17:15 05/03/25 17:16 DC 05/03/25 17:57 37.5 MLS/HR Insulin Glargine (LANtus 100 UNITS/ML 10 ML VIAL) 10 units HS SQ 04/24/25 21:00 04/24/25 16:57 DC Insulin Glargine (LANtus 100 UNITS/ML 10 ML VIAL) 10 units ONCE STAT SQ 04/24/25 10:54 04/24/25 11:00 DC 04/24/25 11:19 10 UNITS Insulin Glargine (LANtus 100 UNITS/ML 10 ML VIAL) 15 units HS SQ 04/24/25 21:00 04/24/25 17:06 DC Insulin Glargine (LANtus 100 UNITS/ML 10 ML VIAL) 30 units DAILY SQ 05/05/25 09:00 05/07/25 23:47 DC 05/07/25 08:12 30 UNITS Insulin Glargine (LANtus 100 UNITS/ML 10 ML VIAL) 30 units ONCE SQ 04/24/25 17:00 04/25/25 06:19 DC 04/24/25 18:16 30 UNITS Insulin Glargine (LANtus 100 UNITS/ML 10 ML VIAL) 40 units DAILY SQ 05/08/25 09:00 06/07/25 08:59 05/08/25 08:50 40 UNITS Insulin Glargine (LANtus 100 UNITS/ML 10 ML VIAL) 40 units DAILY SQ 04/29/25 09:00 04/30/25 07:31 DC Insulin Glargine (LANtus 100 UNITS/ML 10 ML VIAL) 50 units DAILY SQ 04/26/25 09:00 04/29/25 06:49 DC 04/28/25 08:46 50 UNITS Insulin Glargine (LANtus 100 UNITS/ML 10 ML VIAL) 50 units DAILY SQ 04/30/25 09:00 05/05/25 07:21 DC 05/04/25 09:30 50 UNITS Insulin Human Regular (humuLIN R 100 UNIT/ML 3ML) 5 unit TIDAC SQ 04/24/25 17:00 04/24/25 17:06 DC Insulin Human Regular (humuLIN R 100 UNIT/ML 3ML) 8 unit TIDAC SQ 04/28/25 07:30 04/30/25 07:31 DC 04/30/25 06:15 8 UNIT Insulin Human Regular (humuLIN R 100 UNIT/ML 3ML) 10 unit TIDAC SQ 05/06/25 07:30 05/07/25 23:47 DC 05/07/25 16:06 10 UNIT Insulin Human Regular (humuLIN R 100 UNIT/ML 3ML) 10 unit TIDAC SQ 04/24/25 17:00 04/25/25 06:17 DC 04/25/25 06:15 10 UNIT Insulin Human Regular (humuLIN R 100 UNIT/ML 3ML) 12 unit TIDAC SQ 05/05/25 07:30 05/05/25 22:51 DC Insulin Human Regular (humuLIN R 100 UNIT/ML 3ML) 12 unit TIDAC SQ 04/30/25 07:30 05/02/25 08:05 DC 05/02/25 06:45 12 UNIT Insulin Human Regular (humuLIN R 100 UNIT/ML 3ML) 15 unit TIDAC SQ 05/02/25 11:30 05/05/25 07:21 DC 05/04/25 17:33 15 UNIT Insulin Human Regular (humuLIN R 100 UNIT/ML 3ML) 15 unit TIDAC SQ 05/08/25 07:30 05/09/25 06:24 DC 05/08/25 17:16 15 UNIT Insulin Human Regular (humuLIN R 100 UNIT/ML 3ML) 15 unit TIDAC SQ 04/26/25 11:30 04/27/25 20:30 DC Insulin Human Regular (humuLIN R 100 UNIT/ML 3ML) 18 unit TIDAC SQ 05/09/25 07:30 06/08/25 07:29 05/09/25 06:49 18 UNIT Insulin Human Regular (humuLIN R 100 UNIT/ML 3ML) 25 unit TIDAC SQ 04/25/25 07:30 04/26/25 07:58 DC 04/25/25 17:39 25 UNIT Insulin Human Regular (humuLIN R 100 UNIT/ML 3ML) INSULIN SLIDING SCAL... ACHS SQ 04/22/25 21:00 04/24/25 16:16 DC 04/24/25 11:18 8 UNIT Insulin Human Regular (humuLIN R 100 UNIT/ML 3ML) INSULIN SLIDING SCAL... ACHS SQ 05/05/25 07:30 06/04/25 07:29 05/08/25 22:19 12 UNIT Insulin Human Regular (humuLIN R 100 UNIT/ML 3ML) INSULIN SLIDING SCAL... ACHS SQ 04/24/25 16:30 04/25/25 14:09 DC 04/25/25 11:57 16 UNIT Insulin Human Regular (humuLIN R 100 UNIT/ML 3ML) INSULIN SLIDING SCAL... ACHS SQ 04/25/25 16:30 05/04/25 23:42 DC 05/04/25 20:49 6 UNIT Insulin Human Regular (humuLIN R 100 UNIT/ML 3ML) INSULIN SLIDING SCAL... Q4H SQ 04/27/25 20:30 04/28/25 09:11 DC 04/28/25 06:00 4 UNIT Lactated Ringer's 1,000 ml @ 100 mls/hr Q10H IV 04/22/25 20:00 04/23/25 10:09 DC 04/23/25 06:00 100 MLS/HR Lactulose (Constulose 20gm/ 30ml Udcup) 30 gm TID PO 04/25/25 11:00 04/30/25 09:45 DC 04/30/25 09:16 30 GM Levothyroxine Sodium (SYNTHroid 125MCG TAB) 125 mcg DAILY@0630 PO 04/25/25 06:30 05/25/25 06:29 05/09/25 06:16 125 MCG Lisinopril (Prinivil 10mg) 10 mg DAILY PO 05/02/25 09:00 06/01/25 08:59 05/08/25 08:49 10 MG Magnesium Sulfate 50 ml @ 0 mls/hr PROTOCOL PRN IV OTHER [SEE ORDER COMMENTS] 04/22/25 20:00 05/22/25 19:59 Methylprednisolone Sodium Succinate (Solu-medROL 125MG) 125 mg Q6H IVP 04/23/25 08:00 04/28/25 09:10 DC 04/25/25 09:45 125 MG Metoprolol Succinate (TopROL XL) 50 mg AM PO 04/25/25 09:00 05/25/25 08:59 05/08/25 08:49 50 MG Ondansetron HCl (zoFRAN 4MG INJ) 4 mg Q6H PRN IV NAUSEA/VOMITING 04/22/25 20:00 05/22/25 19:59 04/22/25 20:10 4 MG Pantoprazole Sodium (PROTonix 40MG INJ) 40 mg DAILY IVP 04/24/25 10:00 05/24/25 09:59 05/08/25 08:48 40 MG Pharmacy Profile Note (Pharmacy Communication) 1 each ONCE MISC 05/01/25 08:00 04/30/25 16:52 DC Pharmacy Profile Note (Pharmacy Communication) 1 each ONCE MIS 05/03/25 12:00 05/03/25 12:58 DC Potassium Chloride 100 ml @ 100 mls/hr AD PRN IV POTASSIUM PROTOCOL 04/22/25 20:00 05/22/25 19:59 Potassium Chloride (K-Dur/Klor-Con 20meq) 20 meq AD PRN PO POTASSIUM PROTOCOL 04/22/25 20:00 05/22/25 19:59 05/03/25 13:10 20 MEQ Potassium Chloride (KCl 10% Elixir 20meq/15ml) 20 meq AD PRN PO POTASSIUM PROTOCOL 04/22/25 20:00 05/22/25 19:59 Pramipexole Dihydrochloride (miraPEX 0.25MG TAB) 0.5 mg HS PO 04/24/25 21:00 05/24/25 20:59 05/08/25 22:03 0.5 MG Pregabalin (LYRica 25MG) 25 mg BID PO 05/01/25 21:00 05/05/25 07:22 DC 05/04/25 09:22 25 MG Pregabalin ([id number]) 75 mg BID PO 04/24/25 21:00 04/24/25 14:49 DC Sodium Chloride 500 ml @ 0 mls/hr Q0M IV 04/25/25 11:00 05/25/25 10:59 Sodium Zirconium Cyclosilicate (Lokelma 10gm Powder) 10 gm TID PO 04/23/25 21:00 04/23/25 14:11 DC Tramadol HCl (UltRAM) 50 mg Q6H PRN PO MODERATE PAIN (4-6) 04/24/25 22:30 04/29/25 22:29 DC 04/28/25 13:55 50 MG Trimethoprim/ Sulfamethoxazole (BactRIM DS) 1 tab BID PO 04/25/25 21:00 04/26/25 14:50 DC 04/25/25 21:51 1 TAB Vancomycin HCl 250 ml @ 125 mls/hr Q12H IV 04/24/25 23:00 04/25/25 12:36 DC 04/25/25 11:43 125 MLS/HR Vancomycin HCl 250 ml @ 125 mls/hr Q12H IV 04/26/25 15:30 04/28/25 03:13 DC 04/27/25 15:22 125 MLS/HR Vancomycin HCl 250 ml @ 125 mls/hr Q12H IV 04/28/25 15:30 04/28/25 18:53 DC Vancomycin HCl 250 ml @ 125 mls/hr Q12H IV 04/28/25 20:00 05/02/25 20:34 DC 05/02/25 10:21 125 MLS/HR Vancomycin HCl 250 ml @ 125 mls/hr Q12H9 IV 05/04/25 21:00 05/08/25 20:49 DC 05/08/25 08:48 125 MLS/HR Vancomycin HCl (Vancomycin 750mg) 750 mg Q12H IVPB 05/08/25 21:00 05/18/25 20:59 05/08/25 22:01 750 MG Vancomycin HCl (Vancomycin Protocol) 1 each AD IV 04/24/25 10:30 04/25/25 12:36 DC Vancomycin HCl (Vancomycin Protocol) 1 each AD IV 04/26/25 15:00 05/10/25 14:59 Venlafaxine HCl (EffEXOR XR 37.5mg CAP) 37.5 mg DAILY PO 04/24/25 16:00 05/05/25 11:18 DC 05/04/25 09:21 37.5 MG Venlafaxine HCl (EffEXOR XR 37.5mg CAP) 37.5 mg DAILY PO 04/25/25 09:00 04/24/25 14:50 DC Venlafaxine HCl (EffEXOR XR 37.5mg CAP) 37.5 mg HS PO 05/05/25 21:00 06/04/25 20:59 05/08/25 22:02 37.5 MG Diagnostics / Radiology: [COPY/PASTE HERE IF NO REPORTS PLEASE DELETE SECTION] Assessment: Decompensated cirrhosis HTN Esophageal varies Plan: Patient with known cirrhosis however lost to follow-up. Hold off on EGD given no overt GI bleeding and stable hemoglobin We will monitor closely BEHZAD KOCH [facility] May 09, 2025 08:11
--- NOTE | 2025-05-09 08:59 | PN ---
FOLLOWUP PROGRESS NOTE SUBJECTIVE: A 54-year-old female who has had a prolonged hospital course. The patient with a history of systemic lupus erythematosus. The patient presents with persistent bacteremia. The patient continues with the antibiotics. She has had acute renal failure in the hospital. Creatinine has been elevated and the patient is being seen as a followup visit for all of the above. REVIEW OF SYSTEMS: CONSTITUTIONAL: She is complaining of feeling weak and tired. HEENT: No change in vision. No change in hearing. CARDIOVASCULAR: There is no current chest pain or palpitations. PULMONARY: She denies any shortness of breath. GASTROINTESTINAL: She is tolerating some amount of diet. MUSCULOSKELETAL: Complains of the weakness. PHYSICAL EXAMINATION: VITAL SIGNS: Blood pressure is 127/42, pulse 80s, afebrile. GENERAL: Chronically ill female, much older than appearing. HEENT: Head is atraumatic. Pupils are equal, roving to light. Oropharynx is without exudate. Nares clear. NECK: There is no JVP. There is no thyromegaly, no mass. CARDIOVASCULAR: Regular. There is no S3 or S4 gallop. LUNGS: Coarse with equal thoracic movement. ABDOMEN: Soft, nondistended, and nontender. EXTREMITIES: There is no clubbing, no cyanosis. NEUROLOGICAL: She is awake. She is at her baseline. LABORATORY DATA: Hemoglobin 8.7, hematocrit 27. BUN 48, creatinine is 1.2. IMPRESSION: * Acute on chronic renal dysfunction. * Osteomyelitis. * Persistent bacteremia. * Diabetes mellitus. * Hypertension. PLAN: The patient continues with the IV antibiotics. Repeat cultures continue to be positive. The patient is being set up for long-term IV antibiotics with case management. Blood pressure is under adequate control. Electrolytes have all been aggressively repleted. We will continue to follow the chemistries closely. TID: [id number] RECEIPT: [id number]
--- NOTE | 2025-05-09 09:46 | PN ---
LOCATION: Room 314. SUBJECTIVE: The patient remains stable overnight. No fever, chills or other complaints. Pending a white blood cell scan to try to determine where the source of bacteremia is. She continues to have persistent positive blood cultures. She is not a candidate for RAMAN because of severe thrombocytopenia. PHYSICAL EXAMINATION: CONSTITUTIONAL: Pleasant woman. VITAL SIGNS: Blood pressure 136/60, pulse 69, respiratory 20. CHEST: Clear. ABDOMEN: Soft. EXTREMITIES: No edema. SKIN: Nephrostomy in the right flank. LABORATORY DATA: Labs reviewed. CBC with WBC 6.2, hemoglobin 8.7, platelets 21,000. IMPRESSION: 1. Consumptive thrombocytopenia. 2. 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 3. Ongoing sepsis. 4. MSSA bacteremia. 5. UTI. 6. L2-L3 diskitis. 7. Osteomyelitis. 8. Right hydronephrosis, status post nephrostomy. 9. Obesity. 10. Cirrhosis. 11. Diabetes. 12. Lupus. PLAN: Continue medical management. I am trying to get her the Promacta which the hospital does not have and see if I can provide it from the office. Continue antibiotic workup with Dr. Lepe. The patient is medically stable. TID: [id number] RECEIPT: [id number]
--- NOTE | 2025-05-09 10:34 | PN ---
[facility] PROGRESS NOTE Date of Service: May 09, 2025 Time of Service: 10:29 SUBJECTIVE: This is a 54-year-old female with past medical history of undiagnosed obstructive sleep apnea, diabetes type 2, hypertension, hyperlipidemia, hypothyroidism, restless leg syndrome, anxiety disorder,depression, lupus and severe morbid obesity who presents to the ED for complaints of severe low back pain which started 2 weeks ago and getting worse for the past 2 days and patient reports she is taking prednisone 30mg po daily for her Lupus she said.Patient also reports she was recently seen in this ED for similar complaints and was diagnosed with acute lumbosacral myofascial strain. 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 Urinalysis consistent with urinary tract infection. CT abdomen and pelvis result revealed no acute intra-abdominal or pelvic pathology cirrhotic liver morphology with splenomegaly, consistent with portal hypertension. Bilateral r enal cortical thickening may reflect renal parenchymal disease. While in the ER patient received Rocephin 1 g IV, 1 L NS bolus. We will admit patient for further medical management. 04/23/25 Patient was seen and examined at bedside. She was complaining of chest pain early in the morning but her EKG and troponin were normal. Patient says she got liver cirrhosis from taking Tylenol with codeine in the past for a long time. Remarkable labs are Na 129, K 6.4. Cl 98, BUN 44. Cr 1.2 with no anion gap. New EKG shows sinus rhythm with no tall T-waves or shortened QT interval. We will give her a dose of calcium gluconate and lokelma and recheck her labs. we will hold her iv fluids for now. Her urine anion gap is 36.0 mEq/l. Repeat potassium was 4.2 and 4.6. We will order CT lumbar spine and request nephro and cardio consults due to hyponatremia, RTA and cirrhosis with portal hypertension res pectively. We will order lupus, complement , anemia panel due to her abnormal labs and h/o SLE. Hematology recommended solu medrol 125 q6. she might need hydrochloroquine upon discharge for SLE 04/24/25 Patient was seen and examined at bedside. She is complaining of widespread generalized body pain with tender points and generalized weakness, her CPK is going up, we will repeat it and start her on pregabalin. Her labs are improving. She had an EGD done last year that showed grade III varices but lost to follow up with TDS. No GI intervention as her Hb is stable. Will start her on vancomycin. Her home meds have been reconciled. She takes venlaflaxine and pramipexole for depression and restless leg syndrome respectively. Her elevated urine anion gap could be due to BALTAZAR or NSAID induced kidney injury but her creatinine is improving. Pending abdominal ultrasound and CT lumbar spine result s. 04/25/25 Patient was seen and examined. She was observed sitting in a chair but was unable to answer questions appropriately and appeared confused. Ammonia level was elevated at 59; lactulose has been initiated at 30 mL TID. She is currently receiving vancomycin for MRSA identified in the urine. Right upper quadrant ultrasound demonstrated chronic hepatic changes with a hypoechoic lesion in the right lobe of the liver, possibly representing a complex cyst. CT of the lumbar spine revealed moderate lumbar spondylosis and diffuse osteopenia. Her platelet count is 37 and showing slow improvement. Dr. Urias, covering for Dr. Lorenzo, recommended holding solu-medrol for now. If platelet count declines tomorrow, steroids may need to be restarted. Ammonia and additional labs will be rechecked in the morning. 04/26/25 Patient was seen at bedside. Will request a transfer to the ICU due to worsening agitation and hypercapnic respiratory failure requiring BIPAP support.Will order Precedex drip for sedation to improve tolerance of non-invasive ventilation. Imaging studies including CT head and MRI spine have been ordered to evaluate for underlying neurologic causes. Patient remains hemodynamically stable; pulmonary consult is in place. She is growing gram positive cocci in clusters in her blood, will request ID input on antibiotics as she was on vancomycin previously and was started on bactrim for MRSA in urine. Her platelet count is 36 and solu-medrol is on hold. Ammonia improved from 59 to 12 04/27/25 Patient was evaluated at bedside. She was transferred to the ICU yesterday due to agitation and hypercapnia, requiring a Precedex drip as she was removing her nasal cannula. BiPAP was initiated to support ventilation, and she is now resting comfortably. CT brain was unremarkable with no acute findings. She has a free water deficit of approximately 1.4 liters, for which D5W will be administered. CRP has decreased from 83.5 to 56.4. However, platelets have dropped from 36 to 28, and hematology is closely monitoring her. The patient remains NPO. We wanted to start NG tube feeding but patient has h/o esophageal varices. We will await gastroenterologys recommendations, including possible EGD if indicated. 04/28/25 Patient was evaluated at bedside, she is bed bound not very responsive to questions. She is currently off BiPAP and precedex drip. Her agitation has improved and she is resting comfortably in bed. She has MRSA bacteremia and we will repeat blood cultures. She is currently on vancomycin. She has moderate right hydronephrosis which is increasing, we will request urology consult. Her sodium is trending upwards from 147 to 152 and she has a free water deficit of 2.4 L , we will increase D5 rate from 75 to 150mls/hr. CRP improving from 56.4 to 42.7. Platelets dropped from 28 to 21, we will follow Dr. Lorenzo's recommendations and his plan is give her IgG. She is not bleeding actively. 04/29/25 Patient was evaluated at bedside. She is alert, awake and oriented. She was minimally verbal yesterday but is now more interactive, expressing pain and discussing her medical history. She reports diffuse joint pain and is unable to lift her arms or legs due to significant discomfort. She has generalized joint tenderness and weak gas maker strength bilaterally. urologist Dr. Colin recommended nephrostomy tube on her right due to hydronephrosis. Her platelets improved to 44 without any intervention. She will be getting platelets for the procedure. She has infectious spondylodiscitis which could be the source of her bacteremia. We have requested transfer to [facility] but warehouse manager said Dr. Sanchez [place] [facility] [place] will try to consult him. Her white count went up to 12.2, LFTs mildly going up. We will hold off on gabapentin for now. 04/30/25 Patient was evaluated at bedside. She is alert, awake and oriented. Her vitals are stable. She is interactive, expressing pain and discussing her medical history. She reports diffuse joint pain and is able to lift her arms or legs slightly due to pain and discomfort. Her active and passive range of motions are limited. She has generalized joint tenderness and weak gas maker strength bilaterally. She also passed stool more than 5 times yesterday could be due to lactulose which has been stopped from today. A Percutaneous fluroscopy-guided placement of an 8-F nephrostomy catheter was performed,the patient tolerated the procedure well. Neurosurgeon Dr. Sanchez saw the patient and came up with possible diagnosis of discitis and osteomyelitis at L2-L3 along with psoas inflammation. She has spondylolisthesis which is non- critical and can be managed medically for now. According to Dr. Lorenzo she will benefit from IVIg for 3 days on the background of possible ITP. Her current platelet is 41 and Hgb 9.6. Also, Endocrinology team adjusted Insulin regimen. We have requested cardiology consult for suspected endocarditis and will request RAMAN although she has thrombocytopenia and h/o esophageal varices. 05/01/25 Patient was evaluated at bedside. She is alert, awake and oriented. Her vitals are stable, except blood pressure which is 158/80. She reports diffuse joint pain and is able to lift her arms or legs slightly due to pain and discomfort. Her active and passive range of motions are limited. She has generalized joint tenderness and weak gas maker strength bilaterally. As per Dr. Lorenzo she will be started IVIG from today for 3 days. As per the Cardiology, she won't undergo RAMAN due thrombocytopenia, cirrhosis, varices. We will continue IV antibiotics and add low dose pregabalin for her pain. 05/02/25 Patient was evaluated at bedside. She is alert, awake and oriented. Her vitals are stable, except blood pressure which is 157/81. Labs showed WBC decreasing from 11.6 to 5.7, platelets from 44 to 32 and random glucose of 226. There has been marked decline in pain. We will continue IV antibiotics and she is receiving Immune globulin every 24 hr. Her Insulin dosage has been adjusted. Blood culture showed gram positive cocci in clusters, STAPHYLOCOCCUS AUREUS. Her prognosis remains guarded. Plan is to discharge her to [facility] for 6 weeks of IV antibiotics. 05/03/25 Patient was evaluated at bedside. She is alert, awake and oriented. Her vitals are stable,and her blood pressure which is 137/70. Labs showed WBC 7.8 , platelets from increasing from 32 to 44 and random glucose of 232. Her creatinine level is 1.2. There has been marked decline in pain and discomfort. We will continue IV antibiotics and she is receiving Immune globulin every 24 hr. Her last dose for Immune globulin is today. Her Insulin dosage has been adjusted. Blood culture showed gram positive cocci. Her prognosis remains guarded. She is on IV vancomycin. Plan is to discharge her to [facility] for 6 weeks of IV antibiotics. 05/04/25: The patient was evaluated at the bedside today. She had just finished showering and reported new-onset slurred speech, facial weakness and word- finding difficulty. She reports no weakness in the extremities. Blood cultures remain positive for gram-positive cocci, specifically MRSA. She is continuing on vancomycin, and gentamicin was initiated yesterday per Infectious Disease recommendations. She has completed a total of three IV IgG infusions. Platelet count is currently 31,000, decreased from 41,000 yesterday. Additionally, the patient has developed a groin rash with associated itching. Physical therapy noted that she was unable to ambulate today and experienced significant difficulty with mobility. We will continue to closely monitor her neurological status, platelet counts, and overall clinical response. Repeat blood cultures will be obtained at an appropriate interval following the initiation of gentamicin, per Infectious Disease guidance. Further assessment and management plan are outlined below. 05/05/25 The patient was evaluated at the bedside today. Her vitals are stable and comm unicated well. She complaints of pain in the neck and shoulder. She reports no weakness in the extremities. Blood cultures remain positive for gram-positive cocci, specifically MRSA. She is continuing on vancomycin, and gentamicin per Infectious Disease recommendations. Repeat blood cultures will be obtained at an appropriate interval following the initiation of gentamicin. She has completed a total of three IV IgG infusions. Platelet count is currently decreased from 31,000 [place] [address]. Her WBC is 6.8 and Hgb is 8.6. Her insulin medications has been adjusted by the endocrinology team. Additionally, the patient's groin rash with associated itching has been improving. She has been prescribed for Venlafaxine for management of depression and anxiety. Also Case management updated that they are in communication with [facility], Insurance approval is still pending; no authorization has been granted as of this time. Further assessment and management plan are outlined below. 05/06/25 The patient was evaluated at the bedside today. Her vitals are stable and communicated well. Her pain is gradually decreasing. She reports no weakness in the extremities. Blood cultures remain positive for gram-positive cocci, specifically MRSA. Blood culture has been sent today after 3 days of gentamicin. She is continuing on vancomycin, and gentamicin per Infectious Disease recommendations. . She has completed a total of three IV IgG infusions. Platelet count is currently decreased from 31,[address] As per Dr[address] Lorenzo, she has been planned for the transfusion of platelets today. Her WBC is 5.1, Hgb is 8.9, CRP 61.50 and whole blood glucose 233. In addition,PT is 17.2, INR 1.71, APTT 36.3 and Fibrinogen 119. Also, the Liver enzymes are elevated with total bilirubin of 1.6, AST 166, ALT 136 and ALP 358. Her Vancomycin trough level has increased from 5.0 to 18.1. Her insulin medications has been adjusted by the endocrinology team. Additionally, the patient's groin rash has been improving. As per Nephrology, the patient's renal function has actually greatly improved &the patient is being seen by case management in regards to placement at the [facility]. We will continue to follow the patient closely. 05/07/25 The patient was evaluated at the bedside today. Her vitals are stable and communicated well. Her pain has reduced significantly. Preliminary Blood cultures showed positive for gram-positive cocci which was done yesterday after 3 days of gentamicin. PICC line has been removed as per ID recommendation. Platelet [place] [address] today. Fecal occult blood test is positive. She received platelets transfusion yesterday. Her WBC is trending downwards from 5.1 to 3.0, Hgb is 8.4, and whole blood glucose 245. In addition, PT is 17.2, INR 1.71, APTT 36.3 and Fibrinogen 119. Her D-dimer is 7184. She has been planed today for bilateral US venous Doppler,V/Q scan and CTPA. Her Liver enzymes revealed total bilirubin of 1.9, AST 120, ALT 125 and ALP 371. Her Vancomycin trough level has decreased from 18.1 to 0.2. Her insulin medications has been followed by the endocrinology team. As per Dr Lorenzo, the patient can be transferred to [facility] as soon as accepted and he is trying to get her Promacta, medicine that raises the platelets,once its available. The WBC-tagged scan has been deferred and rescheduled for tomorrow to avoid excessive radiation exposure since patient was initially planned for V/Q scan today. 05/08/25 The patient was evaluated at the bedside today. Her vitals are stable and communicated well. She complained of hyperventilation in the night. Platelet count [id number] today. Her WBC is 5.6, Hgb is 9.1, and whole blood glucose is 314 . In addition, PT is 16, INR 1.58, APTT 35 and Fibrinogen 122. Her D-dimer is 6586. Her V/Q scan wasn't completed because she couldn't lie flat. The US venous doppler (B/L) was done which revealed no deep venous thrombosis evident in the bilateral lower extremity and No superficial thrombophlebitis in the bilateral lower extremity. Her Liver enzymes revealed total bilirubin of 1.9, AST 102, ALT 124 and ALP 391. Her Gentamicin peak and trough level is 0.2 and 0.3 respectively. Her insulin medications has been followed by the endocrinology team. We are awaiting for WBC tagged scan report. 05/09/25 The patient was evaluated at the bedside today. Her vitals are stable and communicated well. She complained of right [place] [address] [place]. Her WBC is 6.2, Hgb is 8.7, and random blood glucose is 236. Blood culture is positive for gram positive cocci. According to ID recommendation, Patient is started on Daptomycin and Ceftaroline. As per Dr Lorenzo, he is trying to get the promacta. Her Liver enzymes revealed total bilirubin of 1.8, AST 128, ALT 139 and ALP 410. Her creatinine is 1.2 and BUN is 41. Participation with physical therapy has been improving. We will continue to monitor patient. REVIEW OF SYSTEMS CONSTITUTIONAL: No fever, chills, or night sweats. NEUROLOGICAL: Denies headache, sensory and motor deficit. CARDIOVASCULAR: Denies any exertional angina, dyspnea on exertion, orthopnea, paroxysmal nocturnal dyspnea, palpitations. PULMONARY: Complained of hyperventilation in the night,Denies any shortness of breath, cough, phlegm/sputum, hemoptysis, pleuritic chest pain. GASTROINTESTINAL: She has right lower quadrant pain. Denies nausea, vomiting. GENITOURINARY: Denies frequency, urgency, nocturia, hematuria or incontinence. PHYSICAL EXAM GENERAL APPEARANCE: The patient is alert, awake and oriented and bedbound NEUROLOGICAL: No sensory and motor deficits. CHEST: Normal chest expansion. LUNGS: Absence of any rales, rhonchi or any wheezing. CARDIOVASCULAR: Regular. S1 and S2 normal. No appreciable rubs, murmurs or gallops. ABDOMEN: Soft nontender, and nondistended. There is no rebound, voluntary guarding, or rigidity. GENITOURINARY: S/P day 7, Nephrostomy tube on the right side Vital Signs (last 8hr) Date Time Temp Pulse Resp B/P (MAP) Pulse Ox O2 Delivery O2 Flow Rate FiO2 05/09/25 08:00 97.9 82 17 127/42 94 Room Air 05/09/25 04:17 97.5 69 20 136/50 99 LABS: Laboratory: Test 05/09/25 05:53 05/09/25 03:07 05/08/25 20:24 05/08/25 06:33 Range/Units Whole Blood Glucose 150 H 70-110 MG/DL White Blood Count 6.2 4.8-10.8 K/uL Red Blood Count 3.37 L 4.00-5.50 MIL/uL Hemoglobin 8.7 L 12.0-16.0 g/dL Hematocrit 27.6 L 36-48 % Mean Corpuscular Volume 81.9 79-99 fL Mean Corpuscular Hemoglobin 25.8 L 27.0-33.0 pg Mean Corpuscular Hemoglobin Concent 31.5 L 32.0-36.0 g/dL Red Cell Distribution Width 24.1 H 11.0-15.5 % Platelet Count 21 L 130-400 K/uL Mean Platelet Volume 7.5-10.5 fL Nucleated Red Blood Cells 0.0 0.0-0.19 % Sodium Level 135 L 136-145 mmol/L Potassium Level 4.7 3.5-5.1 mmol/L Chloride Level 105 101-111 mmol/L Carbon Dioxide Level 25 21-32 mmol/L Blood Urea Nitrogen 41 H 7-18 mg/dL Creatinine 1.2 H 0.5-1.0 mg/dL Glomerular Filtration Rate Calc 53 >90 mL/min Random Glucose 236 H 70-105 mg/dL Total Calcium 8.3 L 8.5-10.1 mg/dL Total Bilirubin 1.8 H 0.2-1.0 mg/dL Aspartate Amino Transf (AST/SGOT) 128 H 10-37 U/L Alanine Aminotransferase (ALT/SGPT) 139 H 12-78 U/L Alkaline Phosphatase 410 H 50-136 U/L Total Protein 7.4 6.0-8.3 g/dL Albumin 1.4 L 3.5-5.0 g/dL Gentamicin Level Peak 3.2 #L 4.0-8.0 mcg/mL Vancomycin Level Trough 19.7 10.0-20.0 UG/ML Immature Granulocyte % (Auto) 1.1 H 0-1 % Neutrophils (%) (Auto) 87.8 H 40.0-77.0 % Lymphocytes (%) (Auto) 5.2 L 21.0-51.0 % Monocytes (%) (Auto) 5.7 3.0-13.0 % Eosinophils (%) (Auto) 0.0 0.0-8.0 % Basophils (%) (Auto) 0.2 0.0-5.0 % Neutrophils # (Auto) 4.9 1.8-7.7 K/uL Lymphocytes # (Auto) 0.3 L 1.0-4.8 K/uL Monocytes # (Auto) 0.3 0.1-1.0 K/uL Eosinophils # (Auto) 0.00 0.00-0.70 K/uL Basophils # (Auto) 0.01 0.00-0.20 K/uL Absolute Immature Granulocyte (auto 0.06 0-1 K/uL Prothrombin Time 16.0 H 9.6-11.6 SEC Prothromb Time International Ratio 1.58 H 0.85-1.15 Activated Partial Thromboplast Time 35.0 26.3-35.5 SEC Fibrinogen 122 L 180-350 mg/dL D-Dimer Quantitative (PE/DVT) 6586 *H 0-500 ng/mL Current Medications Medications (Trade) Dose Ordered Sig/Roberth Route PRN Reason Start Time Stop Time Status Last Admin Dose Admin Acetaminophen (TYLenol 325MG TAB) 650 mg Q4H PRN PO MILD PAIN (1-3) 04/22/25 20:00 05/22/25 19:59 04/30/25 06:17 650 MG Acetaminophen (TYLenol 325MG TAB) 650 mg Q6H PRN PO TEMPERATURE GREATER THAN 101.5 04/22/25 20:00 05/22/25 19:59 04/23/25 10:02 650 MG Acetaminophen/ Hydrocodone Bitart (NORco 5/325MG) 1 tab Q4H PRN PO MODERATE PAIN (4-6) 04/30/25 12:00 05/05/25 11:59 DC 04/30/25 22:07 1 TAB Atorvastatin Calcium (LIPItor 20MG) 20 mg HS PO 04/24/25 21:00 05/24/25 20:59 05/08/25 22:03 20 MG Ceftriaxone Sodium 1 gm/ Sodium Chloride 50 ml @ 100 mls/hr BID IV 04/22/25 21:00 04/22/25 19:59 DC Ceftriaxone Sodium (ROCEphine 1G INJ) 1 gm BID IVPB 04/22/25 21:00 04/22/25 20:44 DC Ceftriaxone Sodium (ROCEphine 1G INJ) 1 gm BID IVPB 04/23/25 09:00 04/25/25 12:36 DC 04/25/25 09:44 1 GM Dexamethasone Sodium Phosphate (dexaMETHasone 4MG/ML 1ML VIAL) 20 mg ONCALL IV 05/01/25 15:30 05/03/25 15:31 DC 05/02/25 15:41 20 MG Dexamethasone Sodium Phosphate (dexaMETHasone 4MG/ML 1ML VIAL) 20 mg ONCALL IV 05/03/25 17:15 05/03/25 17:16 DC 05/03/25 17:23 20 MG Dexamethasone Sodium Phosphate (dexaMETHasone 4MG/ML 1ML VIAL) 20 mg ONCE PRN IV PRE-MED 05/01/25 15:00 05/01/25 15:05 DC Dexmedetomidine/ Sodium Chloride (PRECEdex 200MCG/ 50ML-NS) 200 mcg PROTOCOL IV 04/26/25 12:00 04/26/25 14:54 DC Dexmedetomidine/ Sodium Chloride (PRECEdex 400MCG/ 100ML-NS) 400 mcg PROTOCOL PRN IV ANXIETY/AGITATION 04/26/25 19:30 05/01/25 12:45 DC 04/27/25 23:31 400 MCG Dexmedetomidine/ Sodium Chloride (PRECEdex 400MCG/ 100ML-NS) 400 mcg PROTOCOL STAT IV 04/26/25 14:53 04/26/25 14:58 DC 04/26/25 15:18 400 MCG Dextrose 1,000 ml @ 75 mls/hr [id number] IV 04/26/25 12:00 04/30/25 09:36 DC 04/29/25 04:27 150 MLS/HR Dextrose (D50w) 50 ml AD PRN IV HYPOGLYCEMIA PROTOCOL 04/22/25 20:00 05/22/25 19:59 Diphenhydramine HCl (BENAdryl INJ) 25 mg ONCALL IVP 05/01/25 15:30 05/03/25 15:31 DC 05/02/25 15:41 25 MG Diphenhydramine HCl (BENAdryl INJ) 25 mg ONCALL IVP 05/03/25 17:15 05/03/25 17:16 DC 05/03/25 17:22 25 MG Diphenhydramine HCl (BENAdryl INJ) 25 mg ONCE PRN IVP PRE-MED 05/01/25 15:00 05/01/25 15:06 DC Famotidine (Pepcid 20mg Tab) 20 mg DAILY PO 04/23/25 09:00 04/24/25 09:48 DC 04/23/25 09:33 20 MG Gabapentin (NEURontin 300 MG CAP) 300 mg BID PO 04/24/25 21:00 04/28/25 09:10 DC 04/25/25 21:51 300 MG Gentamicin Sulfate/Sodium Chloride 100 ml @ 200 mls/hr Q12H IV 05/09/25 02:00 05/19/25 01:59 05/09/25 01:36 200 MLS/HR Gentamicin Sulfate/Sodium Chloride 100 ml @ 200 mls/hr Q24H IV 05/03/25 14:00 05/08/25 21:01 DC 05/08/25 14:18 200 MLS/HR Glucagon (Glucagon 1mg Kit) 1 mg AD PRN IM HYPOGLYCEMIA PROTOCOL 04/22/25 20:00 05/22/25 19:59 Heparin Sodium (Porcine) (HEParin 5,000 UNIT VIAL) 5,000 unit Q8H SQ 04/25/25 09:00 04/25/25 08:40 DC Hydromorphone HCl (DiLAUDid 0.5MG INJ) 0.5 mg BIDPRN PRN IVP SEVERE PAIN (7-10) 04/25/25 19:00 04/30/25 11:59 DC 04/29/25 23:31 0.5 MG Hydromorphone HCl (DiLAUDid 0.5MG INJ) 0.5 mg Q6H PRN IVP SEVERE PAIN (7-10) 04/23/25 14:00 04/25/25 08:25 KS 04/25/25 04:14 0.5 MG Hydromorphone HCl (DiLAUDid 1MG INJ) 1 mg TID PRN IVP SEVERE PAIN (7-10) 05/01/25 19:00 05/05/25 12:59 KS Hydromorphone HCl (DiLAUDid 1MG INJ) 1 mg TIDP PRN IVP SEVERE PAIN (7-10) 04/30/25 13:00 05/01/25 18:46 KS 04/30/25 20:44 1 MG Immune Globulin 400 ml @ 0 mls/hr Q24H IV 05/01/25 14:00 05/02/25 12:38 DC 05/01/25 16:18 37.5 MLS/HR Immune Globulin 400 ml @ 0 mls/hr Q24H IV 05/02/25 16:00 05/03/25 16:01 DC 05/02/25 16:46 37.5 MLS/HR Immune Globulin 400 ml @ 0 mls/hr Q24H IV 05/03/25 17:15 05/03/25 17:16 KS 05/03/25 17:57 37.5 MLS/HR Insulin Glargine (LANtus 100 UNITS/ML 10 ML VIAL) 10 units HS SQ 04/24/25 21:00 04/24/25 16:57 DC Insulin Glargine (LANtus 100 UNITS/ML 10 ML VIAL) 10 units ONCE STAT SQ 04/24/25 10:54 04/24/25 11:00 DC 04/24/25 11:19 10 UNITS Insulin Glargine (LANtus 100 UNITS/ML 10 ML VIAL) 15 units HS SQ 04/24/25 21:00 04/24/25 17:06 DC Insulin Glargine (LANtus 100 UNITS/ML 10 ML VIAL) 30 units DAILY SQ 05/05/25 09:00 05/07/25 23:47 DC 05/07/25 08:12 30 UNITS Insulin Glargine (LANtus 100 UNITS/ML 10 ML VIAL) 30 units ONCE SQ 04/24/25 17:00 04/25/25 06:19 DC 04/24/25 18:16 30 UNITS Insulin Glargine (LANtus 100 UNITS/ML 10 ML VIAL) 40 units DAILY SQ 05/08/25 09:00 06/07/25 08:59 05/08/25 08:50 40 UNITS Insulin Glargine (LANtus 100 UNITS/ML 10 ML VIAL) 40 units DAILY SQ 04/29/25 09:00 04/30/25 07:31 DC Insulin Glargine (LANtus 100 UNITS/ML 10 ML VIAL) 50 units DAILY SQ 04/26/25 09:00 04/29/25 06:49 DC 04/28/25 08:46 50 UNITS Insulin Glargine (LANtus 100 UNITS/ML 10 ML VIAL) 50 units DAILY SQ 04/30/25 09:00 05/05/25 07:21 DC 05/04/25 09:30 50 UNITS Insulin Human Regular (humuLIN R 100 UNIT/ML 3ML) 5 unit TIDAC SQ 04/24/25 17:00 04/24/25 17:06 DC Insulin Human Regular (humuLIN R 100 UNIT/ML 3ML) 8 unit TIDAC SQ 04/28/25 07:30 04/30/25 07:31 DC 04/30/25 06:15 8 UNIT Insulin Human Regular (humuLIN R 100 UNIT/ML 3ML) 10 unit TIDAC SQ 05/06/25 07:30 05/07/25 23:47 DC 05/07/25 16:06 10 UNIT Insulin Human Regular (humuLIN R 100 UNIT/ML 3ML) 10 unit TIDAC SQ 04/24/25 17:00 04/25/25 06:17 DC 04/25/25 06:15 10 UNIT Insulin Human Regular (humuLIN R 100 UNIT/ML 3ML) 12 unit TIDAC SQ 05/05/25 07:30 05/05/25 22:51 DC Insulin Human Regular (humuLIN R 100 UNIT/ML 3ML) 12 unit TIDAC SQ 04/30/25 07:30 05/02/25 08:05 DC 05/02/25 06:45 12 UNIT Insulin Human Regular (humuLIN R 100 UNIT/ML 3ML) 15 unit TIDAC SQ 05/02/25 11:30 05/05/25 07:21 DC 05/04/25 17:33 15 UNIT Insulin Human Regular (humuLIN R 100 UNIT/ML 3ML) 15 unit TIDAC SQ 05/08/25 07:30 05/09/25 06:24 DC 05/08/25 17:16 15 UNIT Insulin Human Regular (humuLIN R 100 UNIT/ML 3ML) 15 unit TIDAC SQ 04/26/25 11:30 04/27/25 20:30 DC Insulin Human Regular (humuLIN R 100 UNIT/ML 3ML) 18 unit TIDAC SQ 05/09/25 07:30 06/08/25 07:29 05/09/25 06:49 18 UNIT Insulin Human Regular (humuLIN R 100 UNIT/ML 3ML) 25 unit TIDAC SQ 04/25/25 07:30 04/26/25 07:58 DC 04/25/25 17:39 25 UNIT Insulin Human Regular (humuLIN R 100 UNIT/ML 3ML) INSULIN SLIDING SCAL... ACHS SQ 04/22/25 21:00 04/24/25 16:16 DC 04/24/25 11:18 8 UNIT Insulin Human Regular (humuLIN R 100 UNIT/ML 3ML) INSULIN SLIDING SCAL... ACHS SQ 05/05/25 07:30 06/04/25 07:29 05/08/25 22:19 12 UNIT Insulin Human Regular (humuLIN R 100 UNIT/ML 3ML) INSULIN SLIDING SCAL... ACHS SQ 04/24/25 16:30 04/25/25 14:09 DC 04/25/25 11:57 16 UNIT Insulin Human Regular (humuLIN R 100 UNIT/ML 3ML) INSULIN SLIDING SCAL... ACHS SQ 04/25/25 16:30 05/04/25 23:42 DC 05/04/25 20:49 6 UNIT Insulin Human Regular (humuLIN R 100 UNIT/ML 3ML) INSULIN SLIDING SCAL... Q4H SQ 04/27/25 20:30 04/28/25 09:11 DC 04/28/25 06:00 4 UNIT Lactated Ringer's 1,000 ml @ 100 mls/hr Q10H IV 04/22/25 20:00 04/23/25 10:09 DC 04/23/25 06:00 100 MLS/HR Lactulose (Constulose 20gm/ 30ml Udcup) 30 gm TID PO 04/25/25 11:00 04/30/25 09:45 DC 04/30/25 09:16 30 GM Levothyroxine Sodium (SYNTHroid 125MCG TAB) 125 mcg DAILY@0630 PO 04/25/25 06:30 05/25/25 06:29 05/09/25 06:16 125 MCG Lisinopril (Prinivil 10mg) 10 mg DAILY PO 05/02/25 09:00 06/01/25 08:59 05/09/25 09:45 10 MG Magnesium Sulfate 50 ml @ 0 mls/hr PROTOCOL PRN IV OTHER [SEE ORDER COMMENTS] 04/22/25 20:00 05/22/25 19:59 Methylprednisolone Sodium Succinate (Solu-medROL 125MG) 125 mg Q6H IVP 04/23/25 08:00 04/28/25 09:10 DC 04/25/25 09:45 125 MG Metoprolol Succinate (TopROL XL) 50 mg AM PO 04/25/25 09:00 05/25/25 08:59 05/09/25 09:44 50 MG Ondansetron HCl (zoFRAN 4MG INJ) 4 mg Q6H PRN IV NAUSEA/VOMITING 04/22/25 20:00 05/22/25 19:59 04/22/25 20:10 4 MG Pantoprazole Sodium (PROTonix 40MG INJ) 40 mg DAILY IVP 04/24/25 10:00 05/24/25 09:59 05/09/25 09:45 40 MG Pharmacy Profile Note (Pharmacy Communication) 1 each ONCE MISC 05/01/25 08:00 04/30/25 16:52 DC Pharmacy Profile Note (Pharmacy Communication) 1 each ONCE MISC 05/03/25 12:00 05/03/25 12:58 DC Potassium Chloride 100 ml @ 100 mls/hr AD PRN IV POTASSIUM PROTOCOL 04/22/25 20:00 05/22/25 19:59 Potassium Chloride (K-Dur/Klor-Con 20meq) 20 meq AD PRN PO POTASSIUM PROTOCOL 04/22/25 20:00 05/22/25 19:59 05/03/25 13:10 20 MEQ Potassium Chloride (KCl 10% Elixir 20meq/15ml) 20 meq AD PRN PO POTASSIUM PROTOCOL 04/22/25 20:00 05/22/25 19:59 Pramipexole Dihydrochloride (miraPEX 0.25MG TAB) 0.5 mg HS PO 04/24/25 21:00 05/24/25 20:59 05/08/25 22:03 0.5 MG Pregabalin (LYRica 25MG) 25 mg BID PO 05/01/25 21:00 05/05/25 07:22 DC 05/04/25 09:22 25 MG Pregabalin (APTidy22NN) 75 mg BID PO 04/24/25 21:00 04/24/25 14:49 DC Sodium Chloride 500 ml @ 0 mls/hr Q0M IV 04/25/25 11:00 05/25/25 10:59 Sodium Zirconium Cyclosilicate (Lokelma 10gm Powder) 10 gm TID PO 04/23/25 21:00 04/23/25 14:11 DC Tramadol HCl (UltRAM) 50 mg Q6H PRN PO MODERATE PAIN (4-6) 04/24/25 22:30 04/29/25 22:29 DC 04/28/25 13:55 50 MG Trimethoprim/ Sulfamethoxazole (BactRIM DS) 1 tab BID PO 04/25/25 21:00 04/26/25 14:50 DC 04/25/25 21:51 1 TAB Vancomycin HCl 250 ml @ 125 mls/hr Q12H IV 04/24/25 23:00 04/25/25 12:36 DC 04/25/25 11:43 125 MLS/HR Vancomycin HCl 250 ml @ 125 mls/hr Q12H IV 04/26/25 15:30 04/28/25 03:13 DC 04/27/25 15:22 125 MLS/HR Vancomycin HCl 250 ml @ 125 mls/hr Q12H IV 04/28/25 15:30 04/28/25 18:53 DC Vancomycin HCl 250 ml @ 125 mls/hr Q12H IV 04/28/25 20:00 05/02/25 20:34 DC 05/02/25 10:21 125 MLS/HR Vancomycin HCl 250 ml @ 125 mls/hr Q12H9 IV 05/04/25 21:00 05/08/25 20:49 DC 05/08/25 08:48 125 MLS/HR Vancomycin HCl (Vancomycin 750mg) 750 mg Q12H IVPB 05/08/25 21:00 05/18/25 20:59 05/09/25 09:45 750 MG Vancomycin HCl (Vancomycin Protocol) 1 each AD IV 04/24/25 10:30 04/25/25 12:36 DC Vancomycin HCl (Vancomycin Protocol) 1 each AD IV 04/26/25 15:00 05/10/25 14:59 Venlafaxine HCl (EffEXOR XR 37.5mg CAP) 37.5 mg DAILY PO 04/24/25 16:00 05/05/25 11:18 DC 05/04/25 09:21 37.5 MG Venlafaxine HCl (EffEXOR XR 37.5mg CAP) 37.5 mg DAILY PO 04/25/25 09:00 04/24/25 14:50 DC Venlafaxine HCl (EffEXOR XR 37.5mg CAP) 37.5 mg HS PO 05/05/25 21:00 06/04/25 20:59 05/08/25 22:02 37.5 MG DIAGNOSTICS / RADIOLOGY: [ ] 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 Suspected Endocarditis, RAMAN deferred due to bleeding risks; unable to rule out endocarditis Status post nephrostomy tube Renate intertrigo Infectious spondylodiscitis L2-L3 Sepsis, unable to determine POA Acute hypoxic hypercapnic respiratory failure, not POA, resolved AMS due to suspected steroid induced psychosis or hepatic encephalopathy, not POA, resolved Hyperammonemia due to cirrhosis, resolved Intractable low back pain due to spinal stenosis POA Acute urinary tract infection due to MRSA POA Hypervolemic hyponatremia POA Chronic anemia POA Hyponatremia POA Acute kidney injury on renal insufficiency POA Hyperglycemia due to uncontrolled diabetes POA Hypocalcemia POA Cirrhotic liver with splenomegaly consistent with portal hypertension per CT POA Esophageal varices Renal parenchymal disease per CT POA Hypothyroidism POA Hyperlipidemia POA Hypertension POA Anxiety disorder POA Depression POA Restless leg syndrome POA Suspected obstructive sleep apnea untreated POA Morbid obesity POA PLAN: Persistent MRSA bacteremia, gram positive cocci positive as of 05/08/25 Osteomyelitis of L2-L3 POA PICC line has been removed Currently receiving vancomycin (Day 13) and gentamicin (Day 6) per Infectious Disease (ID) recommendations. Gentamicin peak is 3.2L. Vancomycin trough level has decreased from 18.1 to 0.2. Monitor vancomycin trough level Maintain contact precautions for infection control. Repeat blood cultures per Infectious Disease protocol to monitor clearance of bacteremia. Patient will require a 6-week course of IV antibiotics; case management will assist with arranging appropriate placement for long-term IV therapy. Thrombocytopenia due to ITP DIC panel workup completed, PT is 16, INR 1.58, APTT 35 and Fibrinogen 122. D- dimer is 6586. As per Dr Lorenzo, trying to get her Promacta when available (medicine that raises the platelets) V/Q scan unable to perform as she couldn't lie flat. Platelets has been transfused, but platelets is still 21K. Continue to follow Hematology recommendations for ongoing management of thrombocytopenia. Monitor platelet counts daily. Monitor for bleeding or thrombotic complications. Altered Mental Status due to Hepatic Encephalopathy or steroids induced psychosis, resolved Monitor ammonia levels, mental status, and signs of worsening encephalopathy. Monitor neuro status and reassess mental status regularly with steroid adjustments. Intractable lower back pain, resolving Per Dr. Sanchez, possible diagnosis of discitis and osteomyelitis at L2-L3 along with psoas inflammation. Continue multimodal pain management: acetaminophen, topical agents Pregabalin will be discontinued due to concern for possible medication-induced slurred speech. CT head showed no evidence of acute intracranial abnormalities. Neuro checks q4 Acute UTI, resolved Monitor for signs of urosepsis Encourage hydration and bladder care Hyponatremia, resolved Monitor serum Na closely; consider fluid restriction if dilutional. Renate intertrigo, resolved Patient is improved significantly The patient was given fluconazole 150 mg 1 dose today, gradually resolving Cirrhosis with portal hypertension Fecal occult blood test positive Liver enzymes are elevated with total bilirubin of 1.8, AST 128, ALT 139 and ALP 410. Monitor for decompensation: encephalopathy, ascites, variceal bleeding. Consider beta sergio for variceal prophylaxis. Monitor LFTs, INR, and ammonia Her MELD- Na score is 24 points, 14-15% estimated 90 day mortality Hyperglycemia (Uncontrolled Diabetes) Lantus is 40 units daily as per endocrinology recommendations, and continue for regular insulin 15 units TIDAC before meals. Monitor blood glucose QID Educate on diet and insulin compliance; monitor for DKA if concern. Correct electrolytes accordingly. Chronic anemia H/o esophageal varices due to cirrhosis with portal hypertension Per GI, hold off on EGD given no overt GI bleeding and stable hemoglobin Monitor trends, H&H daily Avoid transfusion unless symptomatic or Hgb <7. We will order morning labs. Further orders per hospitalization course. ATTESTATION BY PHYSICIAN I have seen and examined the patient. I reviewed the documentation, medical decision making, and treatment plan as noted by the resident provider above. I agree with the findings and plan of care. Curtis Sanchez MD YOLANDA LARKIN MD May 09, 2025 10:34
[2025-05-09] MEDS ORDERED: PHARMACY COMMUNICATION MISC SCH (13:00)
--- NOTE | 2025-05-09 13:11 | NUR ---
Discharge Planning: Patient denied authorization by insurance for [facility]. Dr. Curtis Sanchez agreed to proceed with [facility]. Pending outcome.
[2025-05-09] MEDS ORDERED: COMPOUND IV REFRIGERATED 1 EACH IVSOLN MISC PRN (14:00)
[2025-05-09] MEDS: DAPTOMYCIN IV SCH (15:52)
[2025-05-09] MEDS: [UNRECOGNIZED DRUG - OTHER] IV SCH (15:52)
[2025-05-09] MEDS: NACL 0.9% IV SCH (16:52)
[2025-05-09] MEDS: CEFTAROLINE FOSAMIL ACETATE IV SCH (16:52)
--- NOTE | 2025-05-09 17:37 | PN ---
INFECTIOUS DISEASE PROGRESS NOTE Date of Service: May 09, 2025 SUBJECTIVE: Patient was seen and examined at bedside in room 314. Patient continues with positive blood cultures. We will discontinue Gentamicin IV and vancomycin and Start patient on daptomycin a 1000 mg IV daily and Teflaro 400 mg IV q.12. Patient in the process of undergoing a WBC imaging body scan. Remains afebrile, temperature is 98.1 and a WBC of 6.2. We will repeat blood cultures on Monday. PHYSICAL EXAM EYES: Anicteric. Pupils equal and reactive. HENT: No oral thrush seen, moist Oral mucosa NECK: Supple, no JVD or thyromegaly. LUNGS: Good air entry. No rales, no rhonchi. CARDIOVASCULAR: S1, S2 regular. No murmur heard. ABDOMEN: Soft, non tender, bowel sounds present, no organomegaly. SKIN: No rashes, no swelling. LYMPHATICS: No peripheral lymphadenopathy MUSCULOSKELETAL: No joint swelling, erythema or tenderness. EXTREMITIES: No cyanosis or clubbing. Generalized weakness. BACK: No deformity, no pressure ulcer. Right nephrostomy tube. GENITOURINARY: No dysuria or hematuria, Nolasco catheter. Vital Sign (Last 12 Hours) 05/09/25 05/09/25 05/09/25 05/09/25 08:00 08:10 12:00 16:00 Temp 97.9 98.1 97.7 Pulse 82 80 64 Resp 17 20 19 B/P (MAP) 127/42 138/60 130/47 Pulse Ox 94 97 94 O2 Delivery Room Air Room Air* Room Air Room Air O2 Flow Rate 0 FiO2 21 Intake & Output (last 24hrs) 05/08/25 05/08/25 05/09/25 15:00 23:00 07:00 Intake Total 2000 ml Output Total 200 ml 700 ml Balance 1800 ml -700 ml LABS: Laboratory: Test 05/09/25 16:08 05/09/25 13:28 05/09/25 03:07 05/08/25 20:24 Range/Units Whole Blood Glucose 182 #H 70-110 MG/DL Gentamicin Level Trough 1.7 # 0.0-2.0 mcg/mL White Blood Count 6.2 4.8-10.8 K/uL Red Blood Count 3.37 L 4.00-5.50 MIL/uL Hemoglobin 8.7 L 12.0-16.0 g/dL Hematocrit 27.6 L 36-48 % Mean Corpuscular Volume 81.9 79-99 fL Mean Corpuscular Hemoglobin 25.8 L 27.0-33.0 pg Mean Corpuscular Hemoglobin Concent 31.5 L 32.0-36.0 g/dL Red Cell Distribution Width 24.1 H 11.0-15.5 % Platelet Count 21 L 130-400 K/uL Mean Platelet Volume 7.5-10.5 fL Nucleated Red Blood Cells 0.0 0.0-0.19 % Sodium Level 135 L 136-145 mmol/L Potassium Level 4.7 3.5-5.1 mmol/L Chloride Level 105 101-111 mmol/L Carbon Dioxide Level 25 21-32 mmol/L Blood Urea Nitrogen 41 H 7-18 mg/dL Creatinine 1.2 H 0.5-1.0 mg/dL Glomerular Filtration Rate Calc 53 >90 mL/min Random Glucose 236 H 70-105 mg/dL Total Calcium 8.3 L 8.5-10.1 mg/dL Total Bilirubin 1.8 H 0.2-1.0 mg/dL Aspartate Amino Transf (AST/SGOT) 128 H 10-37 U/L Alanine Aminotransferase (ALT/SGPT) 139 H 12-78 U/L Alkaline Phosphatase 410 H 50-136 U/L Total Protein 7.4 6.0-8.3 g/dL Albumin 1.4 L 3.5-5.0 g/dL Gentamicin Level Peak 3.2 #L 4.0-8.0 mcg/mL Vancomycin Level Trough 19.7 10.0-20.0 UG/ML Test 05/08/25 06:33 Range/Units Immature Granulocyte % (Auto) 1.1 H 0-1 % Neutrophils (%) (Auto) 87.8 H 40.0-77.0 % Lymphocytes (%) (Auto) 5.2 L 21.0-51.0 % Monocytes (%) (Auto) 5.7 3.0-13.0 % Eosinophils (%) (Auto) 0.0 0.0-8.0 % Basophils (%) (Auto) 0.2 0.0-5.0 % Neutrophils # (Auto) 4.9 1.8-7.7 K/uL Lymphocytes # (Auto) 0.3 L 1.0-4.8 K/uL Monocytes # (Auto) 0.3 0.1-1.0 K/uL Eosinophils # (Auto) 0.00 0.00-0.70 K/uL Basophils # (Auto) 0.01 0.00-0.20 K/uL Absolute Immature Granulocyte (auto 0.06 0-1 K/uL Prothrombin Time 16.0 H 9.6-11.6 SEC Prothromb Time International Ratio 1.58 H 0.85-1.15 Activated Partial Thromboplast Time 35.0 26.3-35.5 SEC Fibrinogen 122 L 180-350 mg/dL D-Dimer Quantitative (PE/DVT) 6586 *H 0-500 ng/mL DIAGNOSIS/RADIOLOGY PATIENT: LUCÍA CATALAN ACCT: [id number] LOC: [facility] U: [id number] AGE/SX: 54/F ROOM: [facility] RE04/22/[address]: TERRIE MENDOZA MD : 1970 BED: 1 DIS: STATUS: ADM IN TLOC: SPEC: [id number] EVERARDO: 05/08/25-1734 STATUS: COMP REQ: [id number] RECD: 05/08/25-[address] [facility] [address]: YOLANDA CHOW MD SOURCE: BLOOD ENTR: 05/08/25-[address]: [facility]DNA SOARES [facility] CARLENE CAMARILLO MD,GALINDO ADAMSON,TERRIE WAGONER MD, MD, JORGE H MD GALAN,GABE VANG,PARAG VAIL,QASIM PIERCE,DANIEL FAY,JOVI DO ORDERED: BLOOD CULTURE COMMENTS: What is the Source? BLOOD Procedure Result Mini Date-Time BLOOD CULT Final 05/09/25-801 GRAM STAIN: GRAM POSITIVE COCCI 2 OF 2 PEDI BOTTLES NOTIFIED NURSE SUSIE PLUNKETT ON 05/09/25 AT 0800 BY REY CULTURE REPORT: IDENTIFICATION In Progress. SEE [id number] FOR CULTURE RESULTS ASSESSMENT: Methicillin-resistant Staphylococcus aureus bacteremia. Urinary tract infection with methicillin-resistant Staphylococcus aureus. L2 and L3 intervertebral disc osteomyelitis.. Right Hydronephrosis, s/p right nephrostomy tube placement on 04/29/2025. Non-ketotic hyperglycemia. Urinary retention requiring Nolasco catheter placement. Morbid obesity. Thrombocytopenia requiring platelet transfusion.. Diabetes mellitus. Debility. PLAN: Discontinue Gentamicin IV. Discontinue vancomycin. Start daptomycin a 1000 mg IV daily. Start Teflaro 400 mg IV q.12. Repeat blood cultures on Monday. Patient undergoing a WBC is scan. Continue GI prophylaxis. Continue pain management. Continue antidiabetic. Case management working on placement to [facility]. Patient will need 6 weeks of IV antibiotics. Continue physical therapy. This case was reviewed and discussed with my supervising physician and the above assessment and plan was formulated and agreed upon. ATTESTATION BY PHYSICIAN I have seen and examined the patient. I reviewed the documentation, medical decision making, and treatment plan as noted by the mid-level provider above. I agree with the findings and plan of care. EDNA SOARES MD, MIRTA L [facility] May 09, 2025 17:37
--- NOTE | 2025-05-09 19:11 | PN ---
endocrinology progress note Date of Service: May 09, 2025 this was late dictation. subjective: glucose are elevated and off steroid now. also on ivig hba1c 9.2, home regimen: lantus 30 units daily and humalog 10 units tid before meals. patient glucose are improving. s/p right nephrostomy tube, thrombocytopenia, UTI and Bacteremia PAST MEDICAL HISTORY: [undiagnosed obstructive sleep apnea, diabetes type 2, hypertension, hyperlipidemia, hypothyroidism, restless leg syndrome, anxiety disorder,depression, lupus and severe morbid obesity ] PAST SURGICAL HISTORY: [ Cholecystectomy, tubal ligation] PAST SOCIAL HISTORY: [ Patient lives with . Patient denies alcohol tobacco and recreational drug use] FAMILY HISTORY: [ Hypertension, diabetes, cardiovascular disease and Alzheimer's disease ] Coded Allergies: No Known Allergies (Unverified Allergy, Unknown, 08/26/14) ASSESSMENT: hyperglycemia due to uncontrolled dm-2 and off steroids now. glucose are improving. hba1c 9.2, home regimen: lantus 30 units daily and humalog 10 units tid before meals. Intractable low back pain POA L2/L3 OSTEOMYELITIS Acute thrombocytopenia POA IVIG Acute urinary tract infection POA On antibiotics. Bacteremia, MRSA on antibiotics. right kidney hydronephrosis s/p right nephrostomy tube Chronic anemia POA Hyponatremia POA Acute kidney injury on renal insufficiency POA improving Hypocalcemia POA stable Cirrhotic liver with splenomegaly consistent with portal hypertension per CT POA Renal parenchymal disease per CT POA Hypothyroidism POA ON LEVOTHYROXINE Hyperlipidemia POA Hypertension POA Anxiety disorder POA Depression POA Restless leg syndrome POA Suspected obstructive sleep apnea untreated POA Morbid obesity POA PLAN: continue lantus 40 units daily increase regular insulin to 18 units qac before meals continue medium dose ssi monitor glucose qx6 hourly continue levothyroxine 125 mcg daily. Vitals/Labs Vitals/Labs Vital Signs Date Time Temp Pulse Resp B/P (MAP) Pulse Ox O2 Delivery O2 Flow Rate FiO2 05/09/25 16:00 97.7 64 19 130/47 94 Room Air 05/09/25 08:10 0 21 Laboratory Tests 05/09/25 03:07 Medications Current Medications Sodium Chloride 1,000 ml @ 0 mls/hr ONCE ONCE IV Last administered on 04/22/25at 17:27; Start 04/22/25 at 17:00; Stop 04/22/25 at 17:01; Status DC Ceftriaxone Sodium 1 gm ONCE ONCE IVPB Last administered on 04/22/25at 19:43; Start 04/22/25 at 19:00; Stop 04/22/25 at 19:01; Status DC Acetaminophen 650 mg Q6H PRN PO Last administered on 04/23/25at 10:02; Start 04/22/25 at 20:00; Stop 05/22/25 at 19:59 Acetaminophen 650 mg Q4H PRN PO Last administered on 04/30/25at 06:17; Start 04/22/25 at 20:00; Stop 05/22/25 at 19:59 Ondansetron HCl 4 mg Q6H PRN IV Last administered on 04/22/25at 20:10; Start 04/22/25 at 20:00; Stop 05/22/25 at 19:59 Famotidine 20 mg DAILY PO Last administered on 04/23/25at 09:33; Start 04/23/25 at 09:00; Stop 04/24/25 at 09:48; Status DC Ceftriaxone Sodium 1 gm/ Sodium Chloride 50 ml @ 100 mls/hr BID IV; Start 04/22/25 at 21:00; Stop 04/22/25 at 19:59; Status DC Lactated Ringer's 1,000 ml @ 100 mls/hr Q10H IV Last administered on 04/23/25at 06:00; Start 04/22/25 at 20:00; Stop 04/23/25 at 10:09; Status DC Insulin Human Regular INSULIN SLIDING SCAL... ACHS SQ Last administered on 04/24/25at 11:18; Start 04/22/25 at 21:00; Stop 04/24/25 at 16:16; Status DC Dextrose 50 ml AD PRN IV; Start 04/22/25 at 20:00; Stop 05/22/25 at 19:59 Glucagon 1 mg AD PRN IM; Start 04/22/25 at 20:00; Stop 05/22/25 at 19:59 Magnesium Sulfate 50 ml @ 0 mls/hr PROTOCOL PRN IV; Start 04/22/25 at 20:00; Stop 05/22/25 at 19:59 Potassium Chloride 100 ml @ 100 mls/hr AD PRN IV; Start 04/22/25 at 20:00; Stop 05/22/25 at 19:59 Potassium Chloride 20 meq AD PRN PO; Start 04/22/25 at 20:00; Stop 05/22/25 at 19:59 Potassium Chloride 20 meq AD PRN PO Last administered on 05/03/25at 13:10; Start 04/22/25 at 20:00; Stop 05/22/25 at 19:59 Ceftriaxone Sodium 1 gm BID IVPB; Start 04/22/25 at 21:00; Stop 04/22/25 at 20:44; Status DC Morphine Sulfate 4 mg ONCE ONCE IVP Last administered on 04/22/25at 20:11; Start 04/22/25 at 20:30; Stop 04/22/25 at 20:31; Status DC Lidocaine 1 each ONCE ONCE TP Last administered on 04/22/25at 21:14; Start 04/22/25 at 21:00; Stop 04/22/25 at 21:01; Status DC Ceftriaxone Sodium 1 gm BID IVPB Last administered on 04/25/25at 09:44; Start 04/23/25 at 09:00; Stop 04/25/25 at 12:36; Status DC Methylprednisolone Sodium Succinate 125 mg Q6H IVP Last administered on 04/25/25at 09:45; Start 04/23/25 at 08:00; Stop 04/28/25 at 09:10; Status DC Albuterol Sulfate 1.25 ONCE ONCE IH Last administered on 04/23/25at 09:40; Start 04/23/25 at 09:30; Stop 04/23/25 at 09:31; Status DC Calcium Gluconate 1 gm ONCE ONCE IV Last administered on 04/23/25at 10:55; Start 04/23/25 at 10:30; Stop 04/23/25 at 10:31; Status DC Sodium Chloride 50 ml @ 0 mls/hr ONCE ONCE IV Last administered on 04/23/25at 11:00; Start 04/23/25 at 11:00; Stop 04/23/25 at 11:01; Status DC Sodium Zirconium Cyclosilicate 10 gm ONCE ONCE PO Last administered on 04/23/25at 14:14; Start 04/23/25 at 14:00; Stop 04/23/25 at 16:08; Status DC Hydromorphone HCl 0.5 mg Q6H PRN IVP Last administered on 04/25/25at 04:14; Start 04/23/25 at 14:00; Stop 04/25/25 at 08:25; Status DC Sodium Zirconium Cyclosilicate 10 gm TID PO; Start 04/23/25 at 21:00; Stop 04/23/25 at 14:11; Status DC Pantoprazole Sodium 40 mg DAILY IVP Last administered on 05/09/25at 09:45; Start 04/24/25 at 10:00; Stop 05/24/25 at 09:59 Pregabalin 75 mg BID PO; Start 04/24/25 at 21:00; Stop 04/24/25 at 14:49; Status DC Vancomycin HCl 1 each AD IV; Start 04/24/25 at 10:30; Stop 04/25/25 at 12:36; Status DC Vancomycin HCl 500 ml @ 250 mls/hr ONCE ONCE IV Last administered on 04/24/25at 12:46; Start 04/24/25 at 11:00; Stop 04/24/25 at 12:59; Status DC Vancomycin HCl 250 ml @ 125 mls/hr Q12H IV Last administered on 04/25/25at 11:43; Start 04/24/25 at 23:00; Stop 04/25/25 at 12:36; Status DC Insulin Glargine 10 units HS SQ; Start 04/24/25 at 21:00; Stop 04/24/25 at 16:57; Status DC Insulin Glargine 10 units ONCE STAT SQ Last administered on 04/24/25at 11:19; Start 04/24/25 at 10:54; Stop 04/24/25 at 11:00; Status DC Atorvastatin Calcium 20 mg HS PO Last administered on 05/08/25at 22:03; Start 04/24/25 at 21:00; Stop 05/24/25 at 20:59 Gabapentin 300 mg BID PO Last administered on 04/25/25at 21:51; Start 04/24/25 at 21:00; Stop 04/28/25 at 09:10; Status DC Levothyroxine Sodium 125 mcg DAILY@0630 PO Last administered on 05/09/25at 06:16; Start 04/25/25 at 06:30; Stop 05/25/25 at 06:29 Metoprolol Succinate 50 mg AM PO Last administered on 05/09/25at 09:44; Start 04/25/25 at 09:00; Stop 05/25/25 at 08:59 Venlafaxine HCl 37.5 mg DAILY PO; Start 04/25/25 at 09:00; Stop 04/24/25 at 14:50; Status DC Pramipexole Dihydrochloride 0.5 mg HS PO Last administered on 05/08/25at 22:03; Start 04/24/25 at 21:00; Stop 05/24/25 at 20:59 Venlafaxine HCl 37.5 mg DAILY PO Last administered on 05/04/25at 09:21; Start 04/24/25 at 16:00; Stop 05/05/25 at 11:18; Status DC Insulin Human Regular INSULIN SLIDING SCAL... ACHS SQ Last administered on 04/25/25at 11:57; Start 04/24/25 at 16:30; Stop 04/25/25 at 14:09; Status DC Insulin Glargine 15 units HS SQ; Start 04/24/25 at 21:00; Stop 04/24/25 at 17:06; Status DC Insulin Human Regular 5 unit TIDAC SQ; Start 04/24/25 at 17:00; Stop 04/24/25 at 17:06; Status DC Insulin Glargine 30 units ONCE SQ Last administered on 04/24/25at 18:16; Start 04/24/25 at 17:00; Stop 04/25/25 at 06:19; Status DC Insulin Human Regular 10 unit TIDAC SQ Last administered on 04/25/25at 06:15; Start 04/24/25 at 17:00; Stop 04/25/25 at 06:17; Status DC Tramadol HCl 50 mg Q6H PRN PO Last administered on 04/28/25at 13:55; Start 04/24/25 at 22:30; Stop 04/29/25 at 22:29; Status DC Insulin Human Regular 25 unit TIDAC SQ Last administered on 04/25/25at 17:39; Start 04/25/25 at 07:30; Stop 04/26/25 at 07:58; Status DC Insulin Glargine 70 units ONCE ONCE SQ Last administered on 04/25/25at 06:27; Start 04/25/25 at 06:30; Stop 04/25/25 at 06:31; Status DC Hydromorphone HCl 0.5 mg BIDPRN PRN IVP Last administered on 04/29/25at 23:31; Start 04/25/25 at 19:00; Stop 04/30/25 at 11:59; Status DC Heparin Sodium (Porcine) 5,000 unit Q8H SQ; Start 04/25/25 at 09:00; Stop 04/25/25 at 08:40; Status DC Lactulose 30 gm TID PO Last administered on 04/30/25at 09:16; Start 04/25/25 at 11:00; Stop 04/30/25 at 09:45; Status DC Sodium Chloride 500 ml @ 0 mls/hr Q0M IV; Start 04/25/25 at 11:00; Stop 05/25/25 at 10:59 Trimethoprim/ Sulfamethoxazole 1 tab BID PO Last administered on 04/25/25at 21:51; Start 04/25/25 at 21:00; Stop 04/26/25 at 14:50; Status DC Insulin Human Regular INSULIN SLIDING SCAL... ACHS SQ Last administered on 05/04/25at 20:49; Start 04/25/25 at 16:30; Stop 05/04/25 at 23:42; Status DC Diazepam 10 mg ONCE ONCE IM; Start 04/25/25 at 15:00; Stop 04/25/25 at 15:01; Status DC Lactulose 200 gm ONCE ONCE [place] Last administered on 04/25/25at 17:30; Start 04/25/25 at 16:30; Stop 04/25/25 at 16:31; Status DC Lorazepam 0.5 mg ONCE ONCE PO Last administered on 04/25/25at 19:07; Start 04/25/25 at 19:00; Stop 04/25/25 at 19:01; Status DC Haloperidol Lactate 1 mg ONCE ONCE IM Last administered on 04/26/25at 05:17; Start 04/26/25 at 05:00; Stop 04/26/25 at 05:02; Status DC Insulin Human Regular 15 unit TIDAC SQ; Start 04/26/25 at 11:30; Stop 04/27/25 at 20:30; Status DC Insulin Glargine 50 units DAILY SQ Last administered on 04/28/25at 08:46; Start 04/26/25 at 09:00; Stop 04/29/25 at 06:49; Status DC Dextrose 1,000 ml @ 75 mls/hr [id number] IV Last administered on 04/29/25at 04:27; Start 04/26/25 at 12:00; Stop 04/30/25 at 09:36; Status DC Dexmedetomidine/ Sodium Chloride 200 mcg PROTOCOL IV; Start 04/26/25 at 12:00; Stop 04/26/25 at 14:54; Status DC Dexmedetomidine/ Sodium Chloride 400 mcg STK-MED ONCE IV; Start 04/26/25 at 14:49; Stop 04/26/25 at 14:50; Status DC Vancomycin HCl 1 each AD IV; Start 04/26/25 at 15:00; Stop 05/09/25 at 13:30; Status DC Dexmedetomidine/ Sodium Chloride 400 mcg PROTOCOL STAT IV Last administered on 04/26/25at 15:18; Start 04/26/25 at 14:53; Stop 04/26/25 at 14:58; Status DC Vancomycin HCl 250 ml @ 125 mls/hr Q12H IV Last administered on 04/27/25at 15:22; Start 04/26/25 at 15:30; Stop 04/28/25 at 03:13; Status DC Dexmedetomidine/ Sodium Chloride 400 mcg PROTOCOL PRN IV Last administered on 04/27/25at 23:31; Start 04/26/25 at 19:30; Stop 05/01/25 at 12:45; Status DC Dexmedetomidine/ Sodium Chloride 400 mcg STK-MED ONCE IV Last administered on 04/26/25at 19:14; Start 04/26/25 at 19:10; Stop 04/26/25 at 19:11; Status DC Insulin Human Regular INSULIN SLIDING SCAL... Q4H SQ Last administered on 04/28/25at 06:00; Start 04/27/25 at 20:30; Stop 04/28/25 at 09:11; Status DC Vancomycin HCl 250 ml @ 125 mls/hr Q12H IV; Start 04/28/25 at 15:30; Stop 04/28/25 at 18:53; Status DC Insulin Human Regular 8 unit TIDAC SQ Last administered on 04/30/25at 06:15; Start 04/28/25 at 07:30; Stop 04/30/25 at 07:31; Status DC Vancomycin HCl 250 ml @ 125 mls/hr Q12H IV Last administered on 05/02/25at 10:21; Start 04/28/25 at 20:00; Stop 05/02/25 at 20:34; Status DC Insulin Glargine 40 units DAILY SQ; Start 04/29/25 at 09:00; Stop 04/30/25 at 07:31; Status DC Lidocaine HCl 50 ml STK-MED ONCE .ROUTE; Start 04/29/25 at 16:03; Stop 04/29/25 at 16:06; Status DC Heparin Sodium/ Sodium Chloride 500 ml @ As Directed STK-MED ONCE IV; Start 04/29/25 at 16:03; Stop 04/29/25 at 16:06; Status DC Iodixanol 100 ml STK-MED ONCE .ROUTE; Start 04/29/25 at 16:04; Stop 04/29/25 at 16:06; Status DC Fentanyl Citrate 100 mcg STK-MED ONCE .ROUTE; Start 04/29/25 at 16:27; Stop 04/29/25 at 16:28; Status DC Midazolam HCl 2 mg STK-MED ONCE .ROUTE; Start 04/29/25 at 16:28; Stop 04/29/25 at 16:28; Status DC Midazolam HCl 2 mg STK-MED ONCE .ROUTE; Start 04/29/25 at 16:52; Stop 04/29/25 at 16:52; Status DC Lidocaine 1 each ONCE ONCE TP Last administered on 04/29/25at 19:18; Start 04/29/25 at 18:30; Stop 04/29/25 at 18:33; Status DC Insulin Glargine 50 units DAILY SQ Last administered on 05/04/25at 09:30; Start 04/30/25 at 09:00; Stop 05/05/25 at 07:21; Status DC Insulin Human Regular 12 unit TIDAC SQ Last administered on 05/02/25at 06:45; Start 04/30/25 at 07:30; Stop 05/02/25 at 08:05; Status DC Hydromorphone HCl 1 mg TIDP PRN IVP Last administered on 04/30/25at 20:44; Start 04/30/25 at 13:00; Stop 05/01/25 at 18:46; Status DC Acetaminophen/ Hydrocodone Bitart 1 tab Q4H PRN PO Last administered on 04/30/25at 22:07; Start 04/30/25 at 12:00; Stop 05/05/25 at 11:59; Status DC Pharmacy Profile Note 1 each ONCE MISC; Start 05/01/25 at 08:00; Stop 04/30/25 at 16:52; Status DC Immune Globulin 400 ml @ 0 mls/hr Q24H IV Last administered on 05/01/25at 16:18; Start 05/01/25 at 14:00; Stop 05/02/25 at 12:38; Status DC Pregabalin 25 mg BID PO Last administered on 05/04/25at 09:22; Start 05/01/25 at 21:00; Stop 05/05/25 at 07:22; Status DC Lisinopril 10 mg DAILY PO Last administered on 05/09/25at 09:45; Start 05/02/25 at 09:00; Stop 06/01/25 at 08:59 Diphenhydramine HCl 25 mg ONCE PRN IVP; Start 05/01/25 at 15:00; Stop 05/01/25 at 15:06; Status DC Dexamethasone Sodium Phosphate 20 mg ONCE PRN IV; Start 05/01/25 at 15:00; Stop 05/01/25 at 15:05; Status DC Dexamethasone Sodium Phosphate 20 mg ONCALL IV Last administered on 05/02/25at 15:41; Start 05/01/25 at 15:30; Stop 05/03/25 at 15:31; Status DC Diphenhydramine HCl 25 mg ONCALL IVP Last administered on 05/02/25at 15:41; Start 05/01/25 at 15:30; Stop 05/03/25 at 15:31; Status DC Hydromorphone HCl 1 mg TID PRN IVP; Start 05/01/25 at 19:00; Stop 05/05/25 at 12:59; Status DC Insulin Human Regular 15 unit TIDAC SQ Last administered on 05/04/25at 17:33; Start 05/02/25 at 11:30; Stop 05/05/25 at 07:21; Status DC Immune Globulin 400 ml @ 0 mls/hr Q24H IV Last administered on 05/02/25at 16:46; Start 05/02/25 at 16:00; Stop 05/03/25 at 16:01; Status DC Vancomycin HCl 250 ml @ 125 mls/hr Q12H9 IV Last administered on 05/08/25at 08:48; Start 05/04/25 at 21:00; Stop 05/08/25 at 20:49; Status DC Pharmacy Profile Note 1 each ONCE [facility]; Start 05/03/25 at 12:00; Stop 05/03/25 at 12:58; Status DC Gentamicin Sulfate/Sodium Chloride 100 ml @ 200 mls/hr Q24H IV Last administered on 05/08/25at 14:18; Start 05/03/25 at 14:00; Stop 05/08/25 at 21:01; Status DC Dexamethasone Sodium Phosphate 20 mg ONCALL IV Last administered on 05/03/25at 17:23; Start 05/03/25 at 17:15; Stop 05/03/25 at 17:16; Status DC Diphenhydramine HCl 25 mg ONCALL IVP Last administered on 05/03/25at 17:22; Start 05/03/25 at 17:15; Stop 05/03/25 at 17:16; Status DC Immune Globulin 400 ml @ 0 mls/hr Q24H IV Last administered on 05/03/25at 17:57; Start 05/03/25 at 17:15; Stop 05/03/25 at 17:16; Status DC Fluconazole 150 mg ONCE ONCE PO Last administered on 05/04/25at 15:57; Start 05/04/25 at 15:30; Stop 05/04/25 at 15:31; Status DC Insulin Human Regular INSULIN SLIDING SCAL... ACHS SQ Last administered on 05/09/25at 17:34; Start 05/05/25 at 07:30; Stop 06/04/25 at 07:29 Insulin Glargine 30 units DAILY SQ Last administered on 05/07/25at 08:12; Start 05/05/25 at 09:00; Stop 05/07/25 at 23:47; Status DC Insulin Human Regular 12 unit TIDAC SQ; Start 05/05/25 at 07:30; Stop 05/05/25 at 22:51; Status DC Venlafaxine HCl 37.5 mg HS PO Last administered on 05/08/25at 22:02; Start 05/05/25 at 21:00; Stop 06/04/25 at 20:59 Insulin Human Regular 10 unit TIDAC SQ Last administered on 05/07/25at 16:06; Start 05/06/25 at 07:30; Stop 05/07/25 at 23:47; Status DC Dexamethasone Sodium Phosphate 10 mg ONCE ONCE IVP Last administered on 05/06/25at 20:20; Start 05/06/25 at 20:00; Stop 05/06/25 at 20:04; Status DC Diphenhydramine HCl 25 mg ONCE ONCE IV Last administered on 05/06/25at 20:20; Start 05/06/25 at 20:00; Stop 05/06/25 at 20:04; Status DC Insulin Glargine 40 units DAILY SQ Last administered on 05/08/25at 08:50; Start 05/08/25 at 09:00; Stop 06/07/25 at 08:59 Insulin Human Regular 15 unit TIDAC SQ Last administered on 05/08/25at 17:16; Start 05/08/25 at 07:30; Stop 05/09/25 at 06:24; Status DC Vancomycin HCl 750 mg Q12H IVPB Last administered on 05/09/25at 09:45; Start 05/08/25 at 21:00; Stop 05/09/25 at 13:30; Status DC Gentamicin Sulfate/Sodium Chloride 100 ml @ 200 mls/hr Q12H IV Last administered on 05/09/25at 01:36; Start 05/09/25 at 02:00; Stop 05/09/25 at 13:30; Status DC Insulin Human Regular 18 unit TIDAC SQ Last administered on 05/09/25at 06:49; Start 05/09/25 at 07:30; Stop 06/08/25 at 07:29 Heparin Sodium (Porcine) 5,000 unit STK-MED ONCE .ROUTE Last administered on 05/09/25at 10:07; Start 05/09/25 at 09:57; Stop 05/09/25 at 09:57; Status DC Pharmacy Profile Note 1 each ONCE MISC; Start 05/09/25 at 13:00; Stop 05/09/25 at 13:42; Status DC Nystatin apply abdominal fold/perineum BID TP; Start 05/09/25 at 21:00; Stop 06/08/25 at 20:59 Daptomycin 1000 mg/Sodium Chloride 100 ml @ 200 mls/hr Q24H IV Last administered on 05/09/25at 15:52; Start 05/09/25 at 15:00; Stop 05/19/25 at 14:59 Ceftaroline Fosamil 400 mg/ Sodium Chloride 250 ml @ 250 mls/hr Q12H IV Last administered on 05/09/25at 16:52; Start 05/09/25 at 17:00; Stop 05/19/25 at 16:59 PARAG VANG MD May 09, 2025 19:11
[2025-05-10 00:44] VITALS: BP 138/48; PULSE 84; RESP 18; TEMP 97.6
[2025-05-10 03:26] VITALS: BP 146/40; PULSE 75; RESP 18; TEMP 97.5
[2025-05-10 06:09] LABS: IMMATURE GRANULOCYTE ABSOLUTE 0.04 K/uL (0-1); NUCLEATED RED BLOOD CELLS 0.0 % (0.0-0.19); PLATELET COUNT (AUTO) 16 K/uL (130-400); RED BLOOD CELL COUNT(AUTO) 3.34 MIL/uL (4.00-5.50); RED CELL DISTRIBUTION WIDTH 25.0 % (11.0-15.5); WHITE BLOOD COUNT (AUTO) 4.7 K/uL (4.8-10.8)
[2025-05-10 06:24] LABS: CREATININE 1.5 mg/dL (0.5-1.0); GLOMERULAR FILTR. RATE CALC 41.0 mL/min (>90); GLUCOSE,RANDOM 182.0 mg/dL (70-105); SODIUM SERUM 133.0 mmol/L (136-145); UREA NITROGEN, BLOOD 39.0 mg/dL (7-18)
[2025-05-10 08:00] VITALS: BP 140/46; PULSE 77; RESP 18; TEMP 97.6
--- NOTE | 2025-05-10 09:54 | PN ---
endocrinology progress note Date of Service: May 10, 2025 subjective: glucose are improving and off steroid now. glucose fluctuates between normal some days and high other days. hba1c 9.2, home regimen: lantus 30 units daily and humalog 10 units tid before meals. patient glucose are improving. s/p right nephrostomy tube, thrombocytopenia, UTI and Bacteremia PAST MEDICAL HISTORY: [undiagnosed obstructive sleep apnea, diabetes type 2, hypertension, hyperlipidemia, hypothyroidism, restless leg syndrome, anxiety disorder,depression, lupus and severe morbid obesity ] PAST SURGICAL HISTORY: [ Cholecystectomy, tubal ligation] PAST SOCIAL HISTORY: [ Patient lives with . Patient denies alcohol tobacco and recreational drug use] FAMILY HISTORY: [ Hypertension, diabetes, cardiovascular disease and Alzheimer's disease ] Coded Allergies: No Known Allergies (Unverified Allergy, Unknown, 08/26/14) ASSESSMENT: glucose are improving and off steroid now. glucose fluctuates between normal some days and high other days requires frequent adjustments. hba1c 9.2, home regimen: lantus 30 units daily and humalog 10 units tid before meals. Intractable low back pain POA L2/L3 OSTEOMYELITIS Acute thrombocytopenia POA IVIG Acute urinary tract infection POA On antibiotics. Bacteremia, MRSA on antibiotics. right kidney hydronephrosis s/p right nephrostomy tube Chronic anemia POA Hyponatremia POA Acute kidney injury on renal insufficiency POA improving Hypocalcemia POA stable Cirrhotic liver with splenomegaly consistent with portal hypertension per CT POA Renal parenchymal disease per CT POA Hypothyroidism POA ON LEVOTHYROXINE Hyperlipidemia POA Hypertension POA Anxiety disorder POA Depression POA Restless leg syndrome POA Suspected obstructive sleep apnea untreated POA Morbid obesity POA PLAN: continue lantus 40 units daily decrease regular insulin to 10 units qac before meals continue medium dose ssi monitor glucose qx6 hourly continue levothyroxine 125 mcg daily. Vitals/Labs Vital Signs Date Time Temp Pulse Resp B/P (MAP) Pulse Ox O2 Delivery O2 Flow Rate FiO2 05/10/25 03:26 97.5 75 18 146/40 95 05/09/25 20:29 Room Air 05/09/25 20:00 0 21 Laboratory Tests 05/10/25 06:04 Medications Current Medications Sodium Chloride 1,000 ml @ 0 mls/hr ONCE ONCE IV Last administered on 04/22/25at 17:27; Start 04/22/25 at 17:00; Stop 04/22/25 at 17:01; Status DC Ceftriaxone Sodium 1 gm ONCE ONCE IVPB Last administered on 04/22/25at 19:43; Start 04/22/25 at 19:00; Stop 04/22/25 at 19:01; Status DC Acetaminophen 650 mg Q6H PRN PO Last administered on 04/23/25at 10:02; Start 04/22/25 at 20:00; Stop 05/22/25 at 19:59 Acetaminophen 650 mg Q4H PRN PO Last administered on 04/30/25at 06:17; Start 04/22/25 at 20:00; Stop 05/22/25 at 19:59 Ondansetron HCl 4 mg Q6H PRN IV Last administered on 04/22/25at 20:10; Start 04/22/25 at 20:00; Stop 05/22/25 at 19:59 Famotidine 20 mg DAILY PO Last administered on 04/23/25at 09:33; Start 04/23/25 at 09:00; Stop 04/24/25 at 09:48; Status DC Ceftriaxone Sodium 1 gm/ Sodium Chloride 50 ml @ 100 mls/hr BID IV; Start 04/22/25 at 21:00; Stop 04/22/25 at 19:59; Status DC Lactated Ringer's 1,000 ml @ 100 mls/hr Q10H IV Last administered on 04/23/25at 06:00; Start 04/22/25 at 20:00; Stop 04/23/25 at 10:09; Status DC Insulin Human Regular INSULIN SLIDING SCAL... ACHS SQ Last administered on 04/24/25at 11:18; Start 04/22/25 at 21:00; Stop 04/24/25 at 16:16; Status DC Dextrose 50 ml AD PRN IV; Start 04/22/25 at 20:00; Stop 05/22/25 at 19:59 Glucagon 1 mg AD PRN IM; Start 04/22/25 at 20:00; Stop 05/22/25 at 19:59 Magnesium Sulfate 50 ml @ 0 mls/hr PROTOCOL PRN IV; Start 04/22/25 at 20:00; Stop 05/22/25 at 19:59 Potassium Chloride 100 ml @ 100 mls/hr AD PRN IV; Start 04/22/25 at 20:00; Stop 05/22/25 at 19:59 Potassium Chloride 20 meq AD PRN PO; Start 04/22/25 at 20:00; Stop 05/22/25 at 19:59 Potassium Chloride 20 meq AD PRN PO Last administered on 05/03/25at 13:10; Start 04/22/25 at 20:00; Stop 05/22/25 at 19:59 Ceftriaxone Sodium 1 gm BID IVPB; Start 04/22/25 at 21:00; Stop 04/22/25 at 20:44; Status DC Morphine Sulfate 4 mg ONCE ONCE IVP Last administered on 04/22/25at 20:11; Start 04/22/25 at 20:30; Stop 04/22/25 at 20:31; Status DC Lidocaine 1 each ONCE ONCE TP Last administered on 04/22/25at 21:14; Start 04/22/25 at 21:00; Stop 04/22/25 at 21:01; Status DC Ceftriaxone Sodium 1 gm BID IVPB Last administered on 04/25/25at 09:44; Start 04/23/25 at 09:00; Stop 04/25/25 at 12:36; Status DC Methylprednisolone Sodium Succinate 125 mg Q6H IVP Last administered on 04/25/25at 09:45; Start 04/23/25 at 08:00; Stop 04/28/25 at 09:10; Status DC Albuterol Sulfate 1.25 ONCE ONCE IH Last administered on 04/23/25at 09:40; Start 04/23/25 at 09:30; Stop 04/23/25 at 09:31; Status DC Calcium Gluconate 1 gm ONCE ONCE IV Last administered on 04/23/25at 10:55; Start 04/23/25 at 10:30; Stop 04/23/25 at 10:31; Status DC Sodium Chloride 50 ml @ 0 mls/hr ONCE ONCE IV Last administered on 04/23/25at 11:00; Start 04/23/25 at 11:00; Stop 04/23/25 at 11:01; Status DC Sodium Zirconium Cyclosilicate 10 gm ONCE ONCE PO Last administered on 04/23/25at 14:14; Start 04/23/25 at 14:00; Stop 04/23/25 at 16:08; Status DC Hydromorphone HCl 0.5 mg Q6H PRN IVP Last administered on 04/25/25at 04:14; Start 04/23/25 at 14:00; Stop 04/25/25 at 08:25; Status DC Sodium Zirconium Cyclosilicate 10 gm TID PO; Start 04/23/25 at 21:00; Stop 04/23/25 at 14:11; Status DC Pantoprazole Sodium 40 mg DAILY IVP Last administered on 05/10/25at 09:09; Start 04/24/25 at 10:00; Stop 05/24/25 at 09:59 Pregabalin 75 mg BID PO; Start 04/24/25 at 21:00; Stop 04/24/25 at 14:49; Status DC Vancomycin HCl 1 each AD IV; Start 04/24/25 at 10:30; Stop 04/25/25 at 12:36; Status DC Vancomycin HCl 500 ml @ 250 mls/hr ONCE ONCE IV Last administered on 04/24/25at 12:46; Start 04/24/25 at 11:00; Stop 04/24/25 at 12:59; Status DC Vancomycin HCl 250 ml @ 125 mls/hr Q12H IV Last administered on 04/25/25at 11:43; Start 04/24/25 at 23:00; Stop 04/25/25 at 12:36; Status DC Insulin Glargine 10 units HS SQ; Start 04/24/25 at 21:00; Stop 04/24/25 at 16:57; Status DC Insulin Glargine 10 units ONCE STAT SQ Last administered on 04/24/25at 11:19; Start 04/24/25 at 10:54; Stop 04/24/25 at 11:00; Status DC Atorvastatin Calcium 20 mg HS PO Last administered on 05/09/25at 21:43; Start 04/24/25 at 21:00; Stop 05/24/25 at 20:59 Gabapentin 300 mg BID PO Last administered on 04/25/25at 21:51; Start 04/24/25 at 21:00; Stop 04/28/25 at 09:10; Status DC Levothyroxine Sodium 125 mcg DAILY@0630 PO Last administered on 05/10/25at 05:16; Start 04/25/25 at 06:30; Stop 05/25/25 at 06:29 Metoprolol Succinate 50 mg AM PO Last administered on 05/10/25at 09:09; Start 04/25/25 at 09:00; Stop 05/25/25 at 08:59 Venlafaxine HCl 37.5 mg DAILY PO; Start 04/25/25 at 09:00; Stop 04/24/25 at 14:50; Status DC Pramipexole Dihydrochloride 0.5 mg HS PO Last administered on 05/09/25at 21:43; Start 04/24/25 at 21:00; Stop 05/24/25 at 20:59 Venlafaxine HCl 37.5 mg DAILY PO Last administered on 05/04/25at 09:21; Start 04/24/25 at 16:00; Stop 05/05/25 at 11:18; Status DC Insulin Human Regular INSULIN SLIDING SCAL... ACHS SQ Last administered on 04/25/25at 11:57; Start 04/24/25 at 16:30; Stop 04/25/25 at 14:09; Status DC Insulin Glargine 15 units HS SQ; Start 04/24/25 at 21:00; Stop 04/24/25 at 17:06; Status DC Insulin Human Regular 5 unit TIDAC SQ; Start 04/24/25 at 17:00; Stop 04/24/25 at 17:06; Status DC Insulin Glargine 30 units ONCE SQ Last administered on 04/24/25at 18:16; Start 04/24/25 at 17:00; Stop 04/25/25 at 06:19; Status DC Insulin Human Regular 10 unit TIDAC SQ Last administered on 04/25/25at 06:15; Start 04/24/25 at 17:00; Stop 04/25/25 at 06:17; Status DC Tramadol HCl 50 mg Q6H PRN PO Last administered on 04/28/25at 13:55; Start 04/24/25 at 22:30; Stop 04/29/25 at 22:29; Status DC Insulin Human Regular 25 unit TIDAC SQ Last administered on 04/25/25at 17:39; Start 04/25/25 at 07:30; Stop 04/26/25 at 07:58; Status DC Insulin Glargine 70 units ONCE ONCE SQ Last administered on 04/25/25at 06:27; Start 04/25/25 at 06:30; Stop 04/25/25 at 06:31; Status DC Hydromorphone HCl 0.5 mg BIDPRN PRN IVP Last administered on 04/29/25at 23:31; Start 04/25/25 at 19:00; Stop 04/30/25 at 11:59; Status DC Heparin Sodium (Porcine) 5,000 unit Q8H SQ; Start 04/25/25 at 09:00; Stop 04/25/25 at 08:40; Status DC Lactulose 30 gm TID PO Last administered on 04/30/25at 09:16; Start 04/25/25 at 11:00; Stop 04/30/25 at 09:45; Status DC Sodium Chloride 500 ml @ 0 mls/hr Q0M IV; Start 04/25/25 at 11:00; Stop 05/25/25 at 10:59 Trimethoprim/ Sulfamethoxazole 1 tab BID PO Last administered on 04/25/25at 21:51; Start 04/25/25 at 21:00; Stop 04/26/25 at 14:50; Status DC Insulin Human Regular INSULIN SLIDING SCAL... ACHS SQ Last administered on 05/04/25at 20:49; Start 04/25/25 at 16:30; Stop 05/04/25 at 23:42; Status DC Diazepam 10 mg ONCE ONCE IM; Start 04/25/25 at 15:00; Stop 04/25/25 at 15:01; Status DC Lactulose 200 gm ONCE ONCE ND Last administered on 04/25/25at 17:30; Start 04/25/25 at 16:30; Stop 04/25/25 at 16:31; Status DC Lorazepam 0.5 mg ONCE ONCE PO Last administered on 04/25/25at 19:07; Start 04/25/25 at 19:00; Stop 04/25/25 at 19:01; Status DC Haloperidol Lactate 1 mg ONCE ONCE IM Last administered on 04/26/25at 05:17; Start 04/26/25 at 05:00; Stop 04/26/25 at 05:02; Status DC Insulin Human Regular 15 unit TIDAC SQ; Start 04/26/25 at 11:30; Stop 04/27/25 at 20:30; Status DC Insulin Glargine 50 units DAILY SQ Last administered on 04/28/25at 08:46; Start 04/26/25 at 09:00; Stop 04/29/25 at 06:49; Status DC Dextrose 1,000 ml @ 75 mls/hr [id number] IV Last administered on 04/29/25at 04:27; Start 04/26/25 at 12:00; Stop 04/30/25 at 09:36; Status DC Dexmedetomidine/ Sodium Chloride 200 mcg PROTOCOL IV; Start 04/26/25 at 12:00; Stop 04/26/25 at 14:54; Status DC Dexmedetomidine/ Sodium Chloride 400 mcg STK-MED ONCE IV; Start 04/26/25 at 14:49; Stop 04/26/25 at 14:50; Status DC Vancomycin HCl 1 each AD IV; Start 04/26/25 at 15:00; Stop 05/09/25 at 13:30; Status DC Dexmedetomidine/ Sodium Chloride 400 mcg PROTOCOL STAT IV Last administered on 04/26/25at 15:18; Start 04/26/25 at 14:53; Stop 04/26/25 at 14:58; Status DC Vancomycin HCl 250 ml @ 125 mls/hr Q12H IV Last administered on 04/27/25at 15:22; Start 04/26/25 at 15:30; Stop 04/28/25 at 03:13; Status DC Dexmedetomidine/ Sodium Chloride 400 mcg PROTOCOL PRN IV Last administered on 04/27/25at 23:31; Start 04/26/25 at 19:30; Stop 05/01/25 at 12:45; Status DC Dexmedetomidine/ Sodium Chloride 400 mcg STK-MED ONCE IV Last administered on 04/26/25at 19:14; Start 04/26/25 at 19:10; Stop 04/26/25 at 19:11; Status DC Insulin Human Regular INSULIN SLIDING SCAL... Q4H SQ Last administered on 04/28/25at 06:00; Start 04/27/25 at 20:30; Stop 04/28/25 at 09:11; Status DC Vancomycin HCl 250 ml @ 125 mls/hr Q12H IV; Start 04/28/25 at 15:30; Stop 04/28/25 at 18:53; Status DC Insulin Human Regular 8 unit TIDAC SQ Last administered on 04/30/25at 06:15; Start 04/28/25 at 07:30; Stop 04/30/25 at 07:31; Status DC Vancomycin HCl 250 ml @ 125 mls/hr Q12H IV Last administered on 05/02/25at 10:21; Start 04/28/25 at 20:00; Stop 05/02/25 at 20:34; Status DC Insulin Glargine 40 units DAILY SQ; Start 04/29/25 at 09:00; Stop 04/30/25 at 07:31; Status DC Lidocaine HCl 50 ml STK-MED ONCE .ROUTE; Start 04/29/25 at 16:03; Stop 04/29/25 at 16:06; Status DC Heparin Sodium/ Sodium Chloride 500 ml @ As Directed STK-MED ONCE IV; Start 04/29/25 at 16:03; Stop 04/29/25 at 16:06; Status DC Iodixanol 100 ml STK-MED ONCE .ROUTE; Start 04/29/25 at 16:04; Stop 04/29/25 at 16:06; Status DC Fentanyl Citrate 100 mcg STK-MED ONCE .ROUTE; Start 04/29/25 at 16:27; Stop 04/29/25 at 16:28; Status DC Midazolam HCl 2 mg STK-MED ONCE .ROUTE; Start 04/29/25 at 16:28; Stop 04/29/25 at 16:28; Status DC Midazolam HCl 2 mg STK-MED ONCE .ROUTE; Start 04/29/25 at 16:52; Stop 04/29/25 at 16:52; Status DC Lidocaine 1 each ONCE ONCE TP Last administered on 04/29/25at 19:18; Start 04/29/25 at 18:30; Stop 04/29/25 at 18:33; Status DC Insulin Glargine 50 units DAILY SQ Last administered on 05/04/25at 09:30; Start 04/30/25 at 09:00; Stop 05/05/25 at 07:21; Status DC Insulin Human Regular 12 unit TIDAC SQ Last administered on 05/02/25at 06:45; Start 04/30/25 at 07:30; Stop 05/02/25 at 08:05; Status DC Hydromorphone HCl 1 mg TIDP PRN IVP Last administered on 04/30/25at 20:44; Start 04/30/25 at 13:00; Stop 05/01/25 at 18:46; Status DC Acetaminophen/ Hydrocodone Bitart 1 tab Q4H PRN PO Last administered on 04/30/25at 22:07; Start 04/30/25 at 12:00; Stop 05/05/25 at 11:59; Status DC Pharmacy Profile Note 1 each ONCE MISC; Start 05/01/25 at 08:00; Stop 04/30/25 at 16:52; Status DC Immune Globulin 400 ml @ 0 mls/hr Q24H IV Last administered on 05/01/25at 16:18; Start 05/01/25 at 14:00; Stop 05/02/25 at 12:38; Status DC Pregabalin 25 mg BID PO Last administered on 05/04/25at 09:22; Start 05/01/25 at 21:00; Stop 05/05/25 at 07:22; Status DC Lisinopril 10 mg DAILY PO Last administered on 05/10/25at 09:09; Start 05/02/25 at 09:00; Stop 06/01/25 at 08:59 Diphenhydramine HCl 25 mg ONCE PRN IVP; Start 05/01/25 at 15:00; Stop 05/01/25 at 15:06; Status DC Dexamethasone Sodium Phosphate 20 mg ONCE PRN IV; Start 05/01/25 at 15:00; Stop 05/01/25 at 15:05; Status DC Dexamethasone Sodium Phosphate 20 mg ONCALL IV Last administered on 05/02/25at 15:41; Start 05/01/25 at 15:30; Stop 05/03/25 at 15:31; Status DC Diphenhydramine HCl 25 mg ONCALL IVP Last administered on 05/02/25at 15:41; Start 05/01/25 at 15:30; Stop 05/03/25 at 15:31; Status DC Hydromorphone HCl 1 mg TID PRN IVP; Start 05/01/25 at 19:00; Stop 05/05/25 at 12:59; Status DC Insulin Human Regular 15 unit TIDAC SQ Last administered on 05/04/25at 17:33; Start 05/02/25 at 11:30; Stop 05/05/25 at 07:21; Status DC Immune Globulin 400 ml @ 0 mls/hr Q24H IV Last administered on 05/02/25at 16:46; Start 05/02/25 at 16:00; Stop 05/03/25 at 16:01; Status DC Vancomycin HCl 250 ml @ 125 mls/hr Q12H9 IV Last administered on 05/08/25at 08:48; Start 05/04/25 at 21:00; Stop 05/08/25 at 20:49; Status DC Pharmacy Profile Note 1 each [place] [facility] [place] Start 05/03/25 at 12:00; Stop 05/03/25 at 12:58; Status DC Gentamicin Sulfate/Sodium Chloride 100 ml @ 200 mls/hr Q24H IV Last administered on 05/08/25at 14:18; Start 05/03/25 at 14:00; Stop 05/08/25 at 21:01; Status DC Dexamethasone Sodium Phosphate 20 mg ONCALL IV Last administered on 05/03/25at 17:23; Start 05/03/25 at 17:15; Stop 05/03/25 at 17:16; Status DC Diphenhydramine HCl 25 mg ONCALL IVP Last administered on 05/03/25at 17:22; Start 05/03/25 at 17:15; Stop 05/03/25 at 17:16; Status DC Immune Globulin 400 ml @ 0 mls/hr Q24H IV Last administered on 05/03/25at 17:57; Start 05/03/25 at 17:15; Stop 05/03/25 at 17:16; Status DC Fluconazole 150 mg ONCE ONCE PO Last administered on 05/04/25at 15:57; Start 05/04/25 at 15:30; Stop 05/04/25 at 15:31; Status DC Insulin Human Regular INSULIN SLIDING SCAL... ACHS SQ Last administered on 05/09/25at 21:17; Start 05/05/25 at 07:30; Stop 06/04/25 at 07:29 Insulin Glargine 30 units DAILY SQ Last administered on 05/07/25at 08:12; Start 05/05/25 at 09:00; Stop 05/07/25 at 23:47; Status DC Insulin Human Regular 12 unit TIDAC SQ; Start 05/05/25 at 07:30; Stop 05/05/25 at 22:51; Status DC Venlafaxine HCl 37.5 mg HS PO Last administered on 05/09/25at 21:43; Start 05/05/25 at 21:00; Stop 06/04/25 at 20:59 Insulin Human Regular 10 unit TIDAC SQ Last administered on 05/07/25at 16:06; Start 05/06/25 at 07:30; Stop 05/07/25 at 23:47; Status DC Dexamethasone Sodium Phosphate 10 mg ONCE ONCE IVP Last administered on 05/06/25at 20:20; Start 05/06/25 at 20:00; Stop 05/06/25 at 20:04; Status DC Diphenhydramine HCl 25 mg ONCE ONCE IV Last administered on 05/06/25at 20:20; Start 05/06/25 at 20:00; Stop 05/06/25 at 20:04; Status DC Insulin Glargine 40 units DAILY SQ Last administered on 05/10/25at 09:16; Start 05/08/25 at 09:00; Stop 06/07/25 at 08:59 Insulin Human Regular 15 unit TIDAC SQ Last administered on 05/08/25at 17:16; Start 05/08/25 at 07:30; Stop 05/09/25 at 06:24; Status DC Vancomycin HCl 750 mg Q12H IVPB Last administered on 05/09/25at 09:45; Start 05/08/25 at 21:00; Stop 05/09/25 at 13:30; Status DC Gentamicin Sulfate/Sodium Chloride 100 ml @ 200 mls/hr Q12H IV Last administered on 05/09/25at 01:36; Start 05/09/25 at 02:00; Stop 05/09/25 at 13:30; Status DC Insulin Human Regular 18 unit TIDAC SQ Last administered on 05/09/25at 06:49; Start 05/09/25 at 07:30; Stop 06/08/25 at 07:29 Heparin Sodium (Porcine) 5,000 unit STK-MED ONCE .ROUTE Last administered on 05/09/25at 10:07; Start 05/09/25 at 09:57; Stop 05/09/25 at 09:57; Status DC Pharmacy Profile Note 1 each ONCE MISC; Start 05/09/25 at 13:00; Stop 05/09/25 at 13:42; Status DC Nystatin apply abdominal fold/perineum BID TP Last administered on 05/10/25at 09:09; Start 05/09/25 at 21:00; Stop 06/08/25 at 20:59 Daptomycin 1000 mg/Sodium Chloride 100 ml @ 200 mls/hr Q24H IV Last administered on 05/09/25at 15:52; Start 05/09/25 at 15:00; Stop 05/19/25 at 14:59 Ceftaroline Fosamil 400 mg/ Sodium Chloride 250 ml @ 250 mls/hr Q12H IV Last administered on 05/10/25at 05:18; Start 05/09/25 at 17:00; Stop 05/19/25 at 16:59 PARAG VANG MD May 10, 2025 09:54
--- NOTE | 2025-05-10 10:36 | PN ---
NEPHROLOGY PROGRESS NOTE Date/Time Patient Seen: May 10, 2025 SUBJECTIVE: This is 54-year-old female with history of undiagnosed obstructive sleep apnea,diabetes type 2, hypertension, hyperlipidemia, hypothyroidism, restless leg syndrome, anxiety disorder,depression, lupus and severe morbid obesity The patient presented to the hospital with complaints of lower back pain. The patient had been taking prednisone as an outpatient. In the Emergency Room, the patient was found to have significant renal dysfunction with an elevated BUN and creatinine as well as significant hyperkalemia. The patient was treated medically for the hyperkalemia. Renal function did improve with hydration and she is being seen in consultation for all of the above. Creatinine did improve with the IV hydration. The patient's hyperkalemia has resolved and we will continue to follow the chemistries closely. The patient presents with persistent bacteremia. The patient continues with the antibiotics. She has had acute renal failure in the hospital. Creatinine has been elevated and the patient is being seen as a followup visit for all of the above. REVIEW OF SYSTEMS: GENERAL: Negative for any nausea, vomiting, fevers, chills, or weight loss. NEUROLOGIC: Negative for any blurry vision, blind spots, double vision, facial asymmetry, dysphagia, dysarthria, hemiparesis, hemisensory deficits, vertigo, ataxia. HEENT: Negative for any head trauma, neck trauma, neck stiffness, photophobia, phonophobia, sinusitis, rhinitis. CARDIAC: Negative for any chest pain, dyspnea on exertion, paroxysmal nocturnal dyspnea, peripheral edema. PULMONARY: Negative for any shortness of breath, wheezing, COPD, or TB exposure. GASTROINTESTINAL: Negative for any abdominal pain, nausea, vomiting, bright red blood per rectum, melena. GENITOURINARY: Negative for any dysuria, hematuria, incontinence. INTEGUMENTARY: Negative for any rashes, cuts, insect bites. RHEUMATOLOGIC: Negative for any joint pains, photosensitive rashes, history of vasculitis or kidney problems. HEMATOLOGIC: Negative for any abnormal bruising, frequent infections or bleeding. Vital Signs (last 8hr) Date Time Temp Pulse Resp B/P (MAP) Pulse Ox O2 Delivery O2 Flow Rate FiO2 05/10/25 12:00 98.1 67 18 143/54 97 Room Air 05/10/25 08:00 97.5 77 18 140/46 97 Room Air 05/10/25 08:00 Room Air* 0 21 PHYSICAL EXAM: GENERAL: Alert and oriented x 3. No acute distress. Well-nourished. EYES: EOMI. Anicteric. HENT: Moist mucous membranes. No scleral icterus. No cervical lymphadenopathy. LUNGS: Clear to auscultation bilaterally. No accessory muscle use. CARDIOVASCULAR: Regular rate and rhythm. No murmur. No JVD. ABDOMEN: Soft, non-tender and non-distended. No palpable masses. EXTREMITIES: No edema. Non-tender. SKIN: No rashes or lesions. Warm. NEUROLOGIC: No focal neurological deficits. CN II-XII grossly intact, but not individually tested. PSYCHIATRIC: Cooperative. Appropriate mood and affect. Current Medications Medications (Trade) Dose Ordered Sig/Roberth Route PRN Reason Start Time Stop Time Status Last Admin Dose Admin Acetaminophen (TYLenol 325MG TAB) 650 mg Q4H PRN PO MILD PAIN (1-3) 04/22/25 20:00 05/22/25 19:59 04/24/25 20:44 650 MG Acetaminophen (TYLenol 325MG TAB) 650 mg Q6H PRN PO TEMPERATURE GREATER THAN 101.5 04/22/25 20:00 05/22/25 19:59 04/23/25 10:02 650 MG Atorvastatin Calcium (LIPItor 20MG) 20 mg HS PO 04/24/25 21:00 05/24/25 20:59 04/24/25 19:57 20 MG Ceftriaxone Sodium 1 gm/ Sodium Chloride 50 ml @ 100 mls/hr BID IV 04/22/25 21:00 04/22/25 19:59 DC Ceftriaxone Sodium (ROCEphine 1G INJ) 1 gm BID IVPB 04/22/25 21:00 04/22/25 20:44 DC Ceftriaxone Sodium (ROCEphine 1G INJ) 1 gm BID IVPB 04/23/25 09:00 04/25/25 12:36 DC 04/25/25 09:44 1 GM Dextrose (D50w) 50 ml AD PRN IV HYPOGLYCEMIA PROTOCOL 04/22/25 20:00 05/22/25 19:59 Famotidine (Pepcid 20mg Tab) 20 mg DAILY PO 04/23/25 09:00 04/24/25 09:48 DC 04/23/25 09:33 20 MG Gabapentin (NEURontin 300 MG CAP) 300 mg BID PO 04/24/25 21:00 05/24/25 20:59 04/25/25 09:46 300 MG Glucagon (Glucagon 1mg Kit) 1 mg AD PRN IM HYPOGLYCEMIA PROTOCOL 04/22/25 20:00 05/22/25 19:59 Heparin Sodium (Porcine) (HEParin 5,000 UNIT VIAL) 5,000 unit Q8H SQ 04/25/25 09:00 04/25/25 08:40 DC Hydromorphone HCl (DiLAUDid 0.5MG INJ) 0.5 mg BIDPRN PRN IVP SEVERE PAIN (7-10) 04/25/25 19:00 04/30/25 18:59 Hydromorphone HCl (DiLAUDid 0.5MG INJ) 0.5 mg Q6H PRN IVP SEVERE PAIN (7-10) 04/23/25 14:00 04/25/25 08:25 DC 04/25/25 04:14 0.5 MG Insulin Glargine (LANtus 100 UNITS/ML 10 ML VIAL) 10 units HS SQ 04/24/25 21:00 04/24/25 16:57 DC Insulin Glargine (LANtus 100 UNITS/ML 10 ML VIAL) 10 units ONCE STAT SQ 04/24/25 10:54 04/24/25 11:00 DC 04/24/25 11:19 10 UNITS Insulin Glargine (LANtus 100 UNITS/ML 10 ML VIAL) 15 units HS SQ 04/24/25 21:00 04/24/25 17:06 DC Insulin Glargine (LANtus 100 UNITS/ML 10 ML VIAL) 30 units ONCE SQ 04/24/25 17:00 04/25/25 06:19 DC 04/24/25 18:16 30 UNITS Insulin Human Regular (humuLIN R 100 UNIT/ML 3ML) 5 unit TIDAC SQ 04/24/25 17:00 04/24/25 17:06 DC Insulin Human Regular (humuLIN R 100 UNIT/ML 3ML) 10 unit TIDAC SQ 04/24/25 17:00 04/25/25 06:17 DC 04/25/25 06:15 10 UNIT Insulin Human Regular (humuLIN R 100 UNIT/ML 3ML) 25 unit TIDAC SQ 04/25/25 07:30 05/25/25 07:29 04/25/25 11:58 25 UNIT Insulin Human Regular (humuLIN R 100 UNIT/ML 3ML) INSULIN SLIDING SCAL... ACHS SQ 04/22/25 21:00 04/24/25 16:16 DC 04/24/25 11:18 8 UNIT Insulin Human Regular (humuLIN R 100 UNIT/ML 3ML) INSULIN SLIDING SCAL... ACHS SQ 04/24/25 16:30 04/25/25 14:09 DC 04/25/25 11:57 16 UNIT Insulin Human Regular (humuLIN R 100 UNIT/ML 3ML) INSULIN SLIDING SCAL... ACHS SQ 04/25/25 16:30 05/25/25 16:29 Lactated Ringer's 1,000 ml @ 100 mls/hr Q10H IV 04/22/25 20:00 04/23/25 10:09 DC 04/23/25 06:00 100 MLS/HR Lactulose (Constulose 20gm/ 30ml Udcup) 30 gm TID PO 04/25/25 11:00 05/25/25 10:59 04/25/25 11:43 30 GM Levothyroxine Sodium (SYNTHroid 125MCG TAB) 125 mcg DAILY@0630 PO 04/25/25 06:30 05/25/25 06:29 Magnesium Sulfate 50 ml @ 0 mls/hr PROTOCOL PRN IV OTHER [SEE ORDER COMMENTS] 04/22/25 20:00 05/22/25 19:59 Methylprednisolone Sodium Succinate (Solu-medROL 125MG) 125 mg Q6H IVP 04/23/25 08:00 05/23/25 07:59 04/25/25 09:45 125 MG Metoprolol Succinate (TopROL XL) 50 mg AM PO 04/25/25 09:00 05/25/25 08:59 04/25/25 09:45 50 MG Ondansetron HCl (zoFRAN 4MG INJ) 4 mg Q6H PRN IV NAUSEA/VOMITING 04/22/25 20:00 05/22/25 19:59 04/22/25 20:10 4 MG Pantoprazole Sodium (PROTonix 40MG INJ) 40 mg DAILY IVP 04/24/25 10:00 05/24/25 09:59 04/25/25 09:45 40 MG Potassium Chloride 100 ml @ 100 mls/hr AD PRN IV POTASSIUM PROTOCOL 04/22/25 20:00 05/22/25 19:59 Potassium Chloride (K-Dur/Klor-Con 20meq) 20 meq AD PRN PO POTASSIUM PROTOCOL 04/22/25 20:00 05/22/25 19:59 Potassium Chloride (KCl 10% Elixir 20meq/15ml) 20 meq AD PRN PO POTASSIUM PROTOCOL 04/22/25 20:00 05/22/25 19:59 Pramipexole Dihydrochloride (miraPEX 0.25MG TAB) 0.5 mg HS PO 04/24/25 21:00 05/24/25 20:59 04/24/25 20:43 0.5 MG Pregabalin ([id number]) 75 mg BID PO 04/24/25 21:00 04/24/25 14:49 DC Sodium Chloride 500 ml @ 0 mls/hr Q0M IV 04/25/25 11:00 05/25/25 10:59 Sodium Zirconium Cyclosilicate (Lokelma 10gm Powder) 10 gm TID PO 04/23/25 21:00 04/23/25 14:11 DC Tramadol HCl (UltRAM) 50 mg Q6H PRN PO MODERATE PAIN (4-6) 04/24/25 22:30 04/29/25 22:29 04/25/25 02:32 50 MG Trimethoprim/ Sulfamethoxazole (BactRIM DS) 1 tab BID PO 04/25/25 21:00 05/05/25 20:59 Vancomycin HCl 250 ml @ 125 mls/hr Q12H IV 04/24/25 23:00 04/25/25 12:36 DC 04/25/25 11:43 125 MLS/HR Vancomycin HCl (Vancomycin Protocol) 1 each AD IV 04/24/25 10:30 04/25/25 12:36 DC Venlafaxine HCl (EffEXOR XR 37.5mg CAP) 37.5 mg DAILY PO 04/24/25 16:00 05/24/25 15:59 04/25/25 09:45 37.5 MG Venlafaxine HCl (EffEXOR XR 37.5mg CAP) 37.5 mg DAILY PO 04/25/25 09:00 04/24/25 14:50 DC LABORATORY: [ ] Hematology Labs: Test 05/10/25 08:24 05/10/25 06:04 Range/Units Erythrocyte Sedimentation Rate 48 H 0-30 MM/HR White Blood Count 4.7 L 4.8-10.8 K/uL Red Blood Count 3.34 L 4.00-5.50 MIL/uL Hemoglobin 8.8 L 12.0-16.0 g/dL Hematocrit 29.2 L 36-48 % Mean Corpuscular Volume 87.4 79-99 fL Mean Corpuscular Hemoglobin 26.3 L 27.0-33.0 pg Mean Corpuscular Hemoglobin Concent 30.1 L 32.0-36.0 g/dL Red Cell Distribution Width 25.0 H 11.0-15.5 % Platelet Count 16 L 130-400 K/uL Mean Platelet Volume 11.3 H 7.5-10.5 fL Immature Granulocyte % (Auto) 0.8 0-1 % Neutrophils (%) (Auto) 78.4 H 40.0-77.0 % Lymphocytes (%) (Auto) 9.9 L 21.0-51.0 % Monocytes (%) (Auto) 10.1 3.0-13.0 % Eosinophils (%) (Auto) 0.6 0.0-8.0 % Basophils (%) (Auto) 0.2 0.0-5.0 % Neutrophils # (Auto) 3.7 1.8-7.7 K/uL Lymphocytes # (Auto) 0.5 L 1.0-4.8 K/uL Monocytes # (Auto) 0.5 0.1-1.0 K/uL Eosinophils # (Auto) 0.03 0.00-0.70 K/uL Basophils # (Auto) 0.01 0.00-0.20 K/uL Absolute Immature Granulocyte (auto 0.04 0-1 K/uL Nucleated Red Blood Cells 0.0 0.0-0.19 % Chemistry Labs: Test 05/10/25 06:04 05/10/25 05:53 05/09/25 03:07 Range/Units Sodium Level 133 L 136-145 mmol/L Potassium Level 4.7 3.5-5.1 mmol/L Chloride Level 105 101-111 mmol/L Carbon Dioxide Level 25 21-32 mmol/L Blood Urea Nitrogen 39 H 7-18 mg/dL Creatinine 1.5 H 0.5-1.0 mg/dL Glomerular Filtration Rate Calc 41 >90 mL/min Random Glucose 182 H 70-105 mg/dL Total Calcium 8.2 L 8.5-10.1 mg/dL C-Reactive Protein, Quantitative 47.80 H 0.5-3.0 mg/L Whole Blood Glucose 175 H 70-110 MG/DL Total Bilirubin 1.8 H 0.2-1.0 mg/dL Aspartate Amino Transf (AST/SGOT) 128 H 10-37 U/L Alanine Aminotransferase (ALT/SGPT) 139 H 12-78 U/L Alkaline Phosphatase 410 H 50-136 U/L Total Protein 7.4 6.0-8.3 g/dL Albumin 1.4 L 3.5-5.0 g/dL DIAGNOSTICS / RADIOLOGY: [address] [address] IMAGING REPORT Signed PATIENT: LUCÍA CATALAN MR#: [id number] : 1970 SEX: F AGE: 54 LOCATION: [facility] ORDER 2 STATUS: ADM IN REPORT#: [id number] SERVICE REASON: SOB, Elevated D-dimer ORDERING PHYSICIAN: GLORIA BORDEN MD PROCEDURE: CXR1VW - CHEST 1VW EXAM: CR Chest, 1 View. CLINICAL HISTORY: SOB, Elevated D-dimer COMPARISON: Radiograph dated May 02, 2025 FINDINGS: Right PICC terminates overlying the SVC. Bibasilar atelectasis. Lungs are otherwise clear. No pleural effusion or pneumothorax. Heart size is stable. Mild central pulmonary vascular congestion. IMPRESSION: 1. No acute cardiopulmonary findings. 2. Right PICC line with appropriate positioning. /[place] DICTATED BY: BROOKLYN LOPEZ Jr., MD DATE: 05/07/251119 ELECTRONICALLY SIGNED BY: BROOKLYN LOPEZ Jr., MD DATE: 05/07/251119 IMAGING REPORT Signed PATIENT: LUCÍA CATALAN MR#: [id number] : 1970 SEX: F AGE: 54 LOCATION: [facility] ORDER 0859 STATUS: ADM IN REPORT#: [id number] SERVICE 0857 REASON: Elevated D-dimer ORDERING PHYSICIAN: GLORIA BORDEN MD PROCEDURE: VENOUS LUDWIG - US VENOUS DOPPLER BILATERAL EXAMINATION: SPECTRAL DOPPLER ULTRASOUND EXAMINATION OF THE BILATERAL LOWER EXTREMITY VEINS. CLINICAL HISTORY: Elevated D-dimer. COMPARISON: Duplex lower extremity veins dated 04/09/2025. TECHNIQUE: Real-time ultrasound scan of the veins of the bilateral lower extremity with color Doppler flow, spectral waveform analysis and compression. FINDINGS: DEEP VEINS: The common femoral, superficial femoral, and popliteal veins are echolucent and compressible. There is normal color Doppler flow throughout. The visualized calf veins appear patent. SUPERFICIAL VEINS: The greater saphenous veins are patent and compressible. SOFT TISSUES: No popliteal fossa cyst or other abnormalities. IMPRESSION: No deep venous thrombosis evident in the bilateral lower extremity. No superficial thrombophlebitis in the bilateral lower extremity. /[place] DICTATED BY: MARISELA MCDONOUGH MD DATE: 05/08/25756 ELECTRONICALLY SIGNED BY: MARISELA MCDONOUGH MD DATE: 05/08/25756 PATIENT: LUCÍA CATALAN MR#: [id number] : 1970 SEX: F AGE: 54 LOCATION: [facility] ORDER 1521 STATUS: ADM IN REPORT#: [id number] SERVICE 1517 REASON: Slurred speech, R/o Stroke ORDERING PHYSICIAN: GLORIA BORDEN MD PROCEDURE: HEAD WO - CT HEAD/BRAIN W/O CONTRAST EXAM: CT Head Without IV contrast. CLINICAL HISTORY: Slurred speech, R/o Stroke TECHNIQUE: Axial computed tomography images of the head/brain without intravenous contrast. COMPARISON: 04/26/2025. FINDINGS: BRAIN: No evidence of acute hemorrhage. No mass lesion. No CT evidence for acute territorial infarct. No midline shift or extra-axial collections. VENTRICLES: No hydrocephalus. ORBITS: The orbits are unremarkable. SINUSES AND MASTOIDS: The paranasal sinuses and mastoid air cells are clear. BONES: No fracture. SOFT TISSUES: Unremarkable. IMPRESSION: No acute intracranial abnormality. /[place] DICTATED BY: MARISELA MCDONOUGH MD DATE: 05/04/251756 ELECTRONICALLY SIGNED BY: MARISELA MCDONOUGH MD DATE: 05/04/251756 REASON: SEVERE LOWER BACK ACHE ORDERING PHYSICIAN: KALI ALBERT MD PROCEDURE: L SPIN WO - CT LUMBAR SPINE W/O CONTRAST EXAM: CT Lumbar Spine Without IV Contrast CLINICAL HISTORY: Pain. TECHNIQUE: Spiral axial CT images through the lumbar spine were acquired, reconstructed in axial and sagittal projections, and imaged using soft tissue and bone algorithms. Reformatted/MPR images were performed. CT scan is done according to ALARA (As Low as Reasonably Achievable). CONTRAST: None. COMPARISON: X-ray lumbar spine dated 04/20/25. FINDINGS: No acute fracture. Normal lordotic curvature. Mild levoscoliosis. Normal vertebral body heights. Diffuse osteopenia. Moderate lumbar spondylosis with multilevel marginal osteophytes, facet arthropathy, and degenerative disc space reduction, most pronounced at L4-L5. The surrounding soft tissues are unremarkable. Individual spinal levels are described as follows: T12-L1: No disc bulge or herniation. No neural foraminal, lateral recess or spinal canal stenosis. L1-L2: No disc bulge or herniation. No neural foraminal, lateral recess or spinal canal stenosis. L2-L3: 6 mm diffuse disc bulge. Severe right and moderate left lateral recess and neural foraminal stenosis. Moderate spinal canal stenosis. L3-L4: 4 mm diffuse disc bulge. Moderate bilateral lateral recess and neural foraminal stenosis. Mild spinal canal stenosis. L4-L5: 6 mm diffuse disc bulge. Bilateral ligamentum flavum and facet hypertrophy. Severe bilateral lateral recess and neural foraminal stenosis. Moderate spinal canal stenosis. L5-S1: 3 mm diffuse disc bulge. Bilateral facet hypertrophy. Severe bilateral lateral recess and neural foraminal stenosis. Mild spinal canal stenosis. IMPRESSION: No fracture or dislocation in the lumbar spine. Moderate lumbar spondylosis with multilevel marginal osteophytes, facet arthropathy, and degenerative disc space reduction, most pronounced at L4-L5. Diffuse osteopenia. Mild levoscoliosis. Diffuse disc bulges from L2-L3 through L5-S1. Severe right and moderate left lateral recess and neural foraminal stenosis at L2-L3 with moderate spinal canal stenosis. Moderate bilateral lateral recess and neural foraminal stenosis at L3-L4 with mild spinal canal stenosis. Severe bilateral lateral recess and neural foraminal stenosis at L4-L5 with moderate spinal canal stenosis. Severe bilateral lateral recess and neural foraminal stenosis at L5-S1 with mild spinal canal stenosis. /[place] DICTATED BY: MARISELA MCDONOUGH MD DATE: 04/24/25 1401 REASON: CIRRHOSIS ORDERING PHYSICIAN: KALI ALBERT MD PROCEDURE: ABDRUQLTD - US ABDOMINAL RUQ\LTD EXAMINATION: ULTRASOUND OF THE ABDOMEN (LIMITED) WITH COLOR DOPPLER. CLINICAL HISTORY: Cirrhosis. COMPARISON: CT abdomen and pelvis without contrast dated 04/22/2025. TECHNIQUE: Real-time grayscale ultrasound images of the abdomen. In addition, color Doppler is medically necessary to perform in order to evaluate vascularity and blood flow. FINDINGS: Liver: Normal in caliber, the right hepatic lobe measures 14.1 cm in the craniocaudal dimension. There is coarse echotexture of the hepatic parenchyma. There is no intrahepatic biliary ductal dilatation. There is normal spectral Doppler of the main portal vein. There is a hypoechoic lesion that measures 1.3 x 1.1 x 1.7 cm in the right lobe. Gallbladder: Post cholecystectomy status. Common bile duct is normal in caliber, measuring 0.5 cm. Pancreas: Obscured by overlying bowel gas The right kidney is normal in caliber, the right kidney measures 13.4 x 6.6 x 6.4 cm in craniocaudal, AP, and transverse dimensions respectively. There is normal renal cortical thickness, and cortical echogenicity. There is no renal calculus. There is moderate right hydronephrosis. IMPRESSION: Chronic hepatic disease. Hypoechoic lesion in the right lobe of the liver may reflect complex cyst. Post cholecystectomy status. Moderate right hydronephrosis. Recommend CT abdomen and pelvis with contrast. /[place] DICTATED BY: MARISELA MCDONOUGH MD DATE: 04/24/25 1158 REASON: Abdominal pain ORDERING PHYSICIAN: CAROL CLAYTON MD PROCEDURE: ABD PEL WO - CT ABDOMEN/PELVIS W/O CONTRAST EXAM: CT Abdomen and Pelvis without IV contrast CLINICAL HISTORY: Abdominal pain TECHNIQUE: Axial computed tomography images of the abdomen and pelvis without intravenous contrast. CT scan performed according to ALARA. Automated exposure control used during exam. CONTRAST: without intravenous contrast. COMPARISON: CT images dated February 20, 2025 FINDINGS: Lung bases are clear. Cirrhotic hepatic morphology. Splenomegaly reflect sequela of portal venous hypertension. Bilateral adrenal glands, and pancreas are within normal limits. The gallbladder is surgically absent. Bilateral renal cortical thickening with the cortices measuring up to 3.2 cm, may reflect renal parenchymal disease. Recommend correlation with laboratory parameters. No renal calculus or hydronephrosis appreciated. Bowel loops are normal in caliber without evidence of obstruction, ileus, or obvious bowel wall thickening. The appendix is within normal limits. No abnormality within the unopacified bladder. Pelvic organs demonstrate appropriate CT appearances. Trace free fluid within the pelvis. Presumed 3.0 x 1.7 cm seroma or sebaceous cyst within the ventral abdominal wall subcutaneous layer. There is no lymphadenopathy. There is no acute or suspicious osseous abnormality. IMPRESSION: 1. No acute intraabdominal or pelvic pathology. 2. Cirrhotic liver morphology with splenomegaly, consistent with portal hypertension. 3. Bilateral renal cortical thickening, may reflect renal parenchymal disease. /[place] DICTATED BY: BROOKLYN LOPEZ Jr., MD DATE: 04/22/25 191 ASSESSMENT: Intractable low back pain due to spinal stenosis POA 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 POA Acute urinary tract infection due to MRSA POA Hypervolemic hyponatremia POA Chronic anemia POA Hyponatremia POA Acute kidney injury on renal insufficiency POA Hyperglycemia due to uncontrolled diabetes POA Hypocalcemia POA Cirrhotic liver with splenomegaly consistent with portal hypertension per CT POA Esophageal varices Renal parenchymal disease per CT POA Hypothyroidism POA Hypocalcemia POA Hyperlipidemia POA Hypertension POA Anxiety disorder POA Depression POA Restless leg syndrome POA Suspected obstructive sleep apnea untreated POA Morbid obesity POA PLAN: Labs, diagnostic, radiologic exams reviewed and interpreted by myself and supervising physician. We have reviewed external records in detail Require close monitoring of renal function and electrolytes Order CBC, CMP, and electrolytes in am Continue with antibiotics BiPAP as necessary, for respiratory distress Monitor blood pressure adjust medication doses as needed Avoid hypotensive episodes May use Dilaudid 0.5 mg IV every 6 hours as needed for severe pain Monitor blood sugars Strict intake, output, and daily weight should be monitored Please renally adjust medications Avoid nephrotoxic and nonsteroidal drugs Avoid contrast if possible Will continue to monitor renal function, anemia, electrolytes Treatment plan discussed with patient Questions were answered We have discussed with the other team physicians in detail about the care plan We will continue to monitor the patient closely ATTESTATION BY PHYSICIAN I have seen and examined the patient. I reviewed the documentation, medical decision making, and treatment plan as noted by the mid-level provider above. I agree with the findings and plan of care. ELKIN JOLLY MD, [facility] May 10, 2025 10:36
[2025-05-10 12:00] VITALS: BP 143/54; PULSE 67; RESP 18; TEMP 98
--- NOTE | 2025-05-10 13:58 | PN ---
INFECTIOUS DISEASE PROGRESS NOTE Date of Service: May 10, 2025 SUBJECTIVE: This 54 year old female patient is being seen today at bedside. Awake, alert and oriented. Patient denies chest pain or shortness of breath. She is calm. In no distress, laying in bed. Patient's antibiotics were adjusted yesterday. We will repeat blood cultures Monday. Went over plan of care with patient and family at bedside. Stated understanding. PHYSICAL EXAM EYES: Anicteric. Pupils equal and reactive. HENT: No oral thrush seen, moist Oral mucosa NECK: Supple, no JVD or thyromegaly. LUNGS: Good air entry. No rales, no rhonchi. CARDIOVASCULAR: S1, S2 regular. No murmur heard. ABDOMEN: Soft, non tender, bowel sounds present, no organomegaly. SKIN: No rashes, no swelling. LYMPHATICS: No peripheral lymphadenopathy MUSCULOSKELETAL: No joint swelling, erythema or tenderness. EXTREMITIES: No cyanosis or clubbing. Generalized weakness. BACK: No deformity, no pressure ulcer. Right nephrostomy tube. GENITOURINARY: No dysuria or hematuria, Nolasco catheter. Vital Sign (Last 12 Hours) 05/10/25 05/10/25 05/10/25 03:26 08:00 08:00 Temp 97.5 97.5 Pulse 75 77 Resp 18 18 B/P (MAP) 146/40 140/46 Pulse Ox 95 97 O2 Delivery Room Air* Room Air O2 Flow Rate 0 FiO2 21 Intake & Output (last 24hrs) 05/09/25 05/09/25 05/10/25 15:00 23:00 07:00 Intake Total 150 ml Output Total 600 ml Balance 150 ml -600 ml LABS: Laboratory: Test 05/10/25 11:34 05/10/25 08:24 05/10/25 06:04 05/09/25 13:28 Range/Units Whole Blood Glucose 203 H 70-110 MG/DL Erythrocyte Sedimentation Rate 48 H 0-30 MM/HR White Blood Count 4.7 L 4.8-10.8 K/uL Red Blood Count 3.34 L 4.00-5.50 MIL/uL Hemoglobin 8.8 L 12.0-16.0 g/dL Hematocrit 29.2 L 36-48 % Mean Corpuscular Volume 87.4 79-99 fL Mean Corpuscular Hemoglobin 26.3 L 27.0-33.0 pg Mean Corpuscular Hemoglobin Concent 30.1 L 32.0-36.0 g/dL Red Cell Distribution Width 25.0 H 11.0-15.5 % Platelet Count 16 L 130-400 K/uL Mean Platelet Volume 11.3 H 7.5-10.5 fL Immature Granulocyte % (Auto) 0.8 0-1 % Neutrophils (%) (Auto) 78.4 H 40.0-77.0 % Lymphocytes (%) (Auto) 9.9 L 21.0-51.0 % Monocytes (%) (Auto) 10.1 3.0-13.0 % Eosinophils (%) (Auto) 0.6 0.0-8.0 % Basophils (%) (Auto) 0.2 0.0-5.0 % Neutrophils # (Auto) 3.7 1.8-7.7 K/uL Lymphocytes # (Auto) 0.5 L 1.0-4.8 K/uL Monocytes # (Auto) 0.5 0.1-1.0 K/uL Eosinophils # (Auto) 0.03 0.00-0.70 K/uL Basophils # (Auto) 0.01 0.00-0.20 K/uL Absolute Immature Granulocyte (auto 0.04 0-1 K/uL Nucleated Red Blood Cells 0.0 0.0-0.19 % Sodium Level 133 L 136-145 mmol/L Potassium Level 4.7 3.5-5.1 mmol/L Chloride Level 105 101-111 mmol/L Carbon Dioxide Level 25 21-32 mmol/L Blood Urea Nitrogen 39 H 7-18 mg/dL Creatinine 1.5 H 0.5-1.0 mg/dL Glomerular Filtration Rate Calc 41 >90 mL/min Random Glucose 182 H 70-105 mg/dL Total Calcium 8.2 L 8.5-10.1 mg/dL C-Reactive Protein, Quantitative 47.80 H 0.5-3.0 mg/L Gentamicin Level Trough 1.7 # 0.0-2.0 mcg/mL Test 05/09/25 03:07 05/08/25 20:24 Range/Units Total Bilirubin 1.8 H 0.2-1.0 mg/dL Aspartate Amino Transf (AST/SGOT) 128 H 10-37 U/L Alanine Aminotransferase (ALT/SGPT) 139 H 12-78 U/L Alkaline Phosphatase 410 H 50-136 U/L Total Protein 7.4 6.0-8.3 g/dL Albumin 1.4 L 3.5-5.0 g/dL Gentamicin Level Peak 3.2 #L 4.0-8.0 mcg/mL Vancomycin Level Trough 19.7 10.0-20.0 UG/ML DIAGNOSIS/RADIOLOGY SPEC: [id number] EVERARDO: 05/08/25 STATUS: COMP REQ: [id number] RECD: 05/09/25 [facility] DR: YOLANDA CHOW MD SOURCE: BLOOD ENTR: 05/09/[address]: EDNA SOARES MD SPDESC: BLOOD RABIA,CARLENE MORRIS,GALINDO ADAMSON,QASIM MENDOZA,TERRIE SANDERSON,SANNA STEIN,GABE VANG,PARAG VAIL,QASIM PIERCE,DANIEL FAY,JOVI DO ORDERED: AERO ID & SENS Procedure Result Mini Date-Time AEROBIC ID & SENSITIVITIES Final 05/10/25-07 [facility] PREVIOUSLY NOTIFIED COLONY DESCRIPTION: DAY 1: GRAM STAIN FROM BLOOD CULTURE BOTTLE GRAM POSITIVE COCCI IN CLUSTERS - ISOLATION IN PROGRESS PEDIATRIC BOTTLE DAY 2: GRAM POSITIVE COCCI IN CLUSTERS STAPHYLOCOCCUS AUREUS FOR SENSITIVITY SEE # [id number] NO FURTHER WORK-UP DONE COMMENTS(R): FOR SENSITIVITY SEE [id number] MRSA: NOTE: THIS IS A METHICILLIN-RESISTANT STAPH AUREUS STAPHYLOCOCCUS AUREUS-MRSA Test(s) performed by: [facility] [address] [place] [address] ASSESSMENT: Methicillin-resistant Staphylococcus aureus bacteremia. Urinary tract infection with methicillin-resistant Staphylococcus aureus. L2 and L3 intervertebral disc osteomyelitis.. Right Hydronephrosis, s/p right nephrostomy tube placement on 04/29/2025. Non-ketotic hyperglycemia. Urinary retention requiring Nolasco catheter placement. Morbid obesity. Thrombocytopenia requiring platelet transfusion.. Diabetes mellitus. Debility. PLAN: Continue daptomycin a 1000 mg IV daily. Continue Teflaro 400 mg IV q.12. Repeat blood cultures on Monday. Patient undergoing a WBC is scan. Continue GI prophylaxis. Continue pain management. Continue antidiabetic. Case management working on placement to [facility]. Patient will need 6 weeks of IV antibiotics. Continue physical therapy. This case was reviewed and discussed with my supervising physician and the above assessment and plan was formulated and agreed upon. BRANDON PELLETIERP May 10, 2025 13:58
--- NOTE | 2025-05-10 15:54 | PN ---
[facility] PROGRESS NOTE Date of Service: May 10, 2025 Time of Service: 15:35 SUBJECTIVE: This is a 54-year-old female with past medical history of undiagnosed obstructive sleep apnea, diabetes type 2, hypertension, hyperlipidemia, hypothyroidism, restless leg syndrome, anxiety disorder,depression, lupus and severe morbid obesity who presents to the ED for complaints of severe low back pain which started 2 weeks ago and getting worse for the past 2 days and patient reports she is taking prednisone 30mg po daily for her Lupus she said.Patient also reports she was recently seen in this ED for similar complaints and was diagnosed with acute lumbosacral myofascial strain. 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 Urinalysis consistent with urinary tract infection. CT abdomen and pelvis result revealed no acute intra-abdominal or pelvic pathology cirrhotic liver morphology with splenomegaly, consistent with portal hypertension. Bilateral r enal cortical thickening may reflect renal parenchymal disease. While in the ER patient received Rocephin 1 g IV, 1 L NS bolus. We will admit patient for further medical management. 04/23/25 Patient was seen and examined at bedside. She was complaining of chest pain early in the morning but her EKG and troponin were normal. Patient says she got liver cirrhosis from taking Tylenol with codeine in the past for a long time. Remarkable labs are Na 129, K 6.4. Cl 98, BUN 44. Cr 1.2 with no anion gap. New EKG shows sinus rhythm with no tall T-waves or shortened QT interval. We will give her a dose of calcium gluconate and lokelma and recheck her labs. we will hold her iv fluids for now. Her urine anion gap is 36.0 mEq/l. Repeat potassium was 4.2 and 4.6. We will order CT lumbar spine and request nephro and cardio consults due to hyponatremia, RTA and cirrhosis with portal hypertension res pectively. We will order lupus, complement , anemia panel due to her abnormal labs and h/o SLE. Hematology recommended solu medrol 125 q6. she might need hydrochloroquine upon discharge for SLE 04/24/25 Patient was seen and examined at bedside. She is complaining of widespread generalized body pain with tender points and generalized weakness, her CPK is going up, we will repeat it and start her on pregabalin. Her labs are improving. She had an EGD done last year that showed grade III varices but lost to follow up with TDS. No GI intervention as her Hb is stable. Will start her on vancomycin. Her home meds have been reconciled. She takes venlaflaxine and pramipexole for depression and restless leg syndrome respectively. Her elevated urine anion gap could be due to BALTAZAR or NSAID induced kidney injury but her creatinine is improving. Pending abdominal ultrasound and CT lumbar spine result s. 04/25/25 Patient was seen and examined. She was observed sitting in a chair but was unable to answer questions appropriately and appeared confused. Ammonia level was elevated at 59; lactulose has been initiated at 30 mL TID. She is currently receiving vancomycin for MRSA identified in the urine. Right upper quadrant ultrasound demonstrated chronic hepatic changes with a hypoechoic lesion in the right lobe of the liver, possibly representing a complex cyst. CT of the lumbar spine revealed moderate lumbar spondylosis and diffuse osteopenia. Her platelet count is 37 and showing slow improvement. Dr. Urias, covering for Dr. Lorenzo, recommended holding solu-medrol for now. If platelet count declines tomorrow, steroids may need to be restarted. Ammonia and additional labs will be rechecked in the morning. 04/26/25 Patient was seen at bedside. Will request a transfer to the ICU due to worsening agitation and hypercapnic respiratory failure requiring BIPAP support.Will order Precedex drip for sedation to improve tolerance of non-invasive ventilation. Imaging studies including CT head and MRI spine have been ordered to evaluate for underlying neurologic causes. Patient remains hemodynamically stable; pulmonary consult is in place. She is growing gram positive cocci in clusters in her blood, will request ID input on antibiotics as she was on vancomycin previously and was started on bactrim for MRSA in urine. Her platelet count is 36 and solu-medrol is on hold. Ammonia improved from 59 to 12 04/27/25 Patient was evaluated at bedside. She was transferred to the ICU yesterday due to agitation and hypercapnia, requiring a Precedex drip as she was removing her nasal cannula. BiPAP was initiated to support ventilation, and she is now resting comfortably. CT brain was unremarkable with no acute findings. She has a free water deficit of approximately 1.4 liters, for which D5W will be administered. CRP has decreased from 83.5 to 56.4. However, platelets have dropped from 36 to 28, and hematology is closely monitoring her. The patient remains NPO. We wanted to start NG tube feeding but patient has h/o esophageal varices. We will await gastroenterologys recommendations, including possible EGD if indicated. 04/28/25 Patient was evaluated at bedside, she is bed bound not very responsive to questions. She is currently off BiPAP and precedex drip. Her agitation has improved and she is resting comfortably in bed. She has MRSA bacteremia and we will repeat blood cultures. She is currently on vancomycin. She has moderate right hydronephrosis which is increasing, we will request urology consult. Her sodium is trending upwards from 147 to 152 and she has a free water deficit of 2.4 L , we will increase D5 rate from 75 to 150mls/hr. CRP improving from 56.4 to 42.7. Platelets dropped from 28 to 21, we will follow Dr. Lorenzo's recommendations and his plan is give her IgG. She is not bleeding actively. 04/29/25 Patient was evaluated at bedside. She is alert, awake and oriented. She was minimally verbal yesterday but is now more interactive, expressing pain and discussing her medical history. She reports diffuse joint pain and is unable to lift her arms or legs due to significant discomfort. 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 urologist Dr. Colin recommended nephrostomy tube on her right due to hydronephrosis. Her platelets improved to 44 without any intervention. She will be getting platelets for the procedure. She has infectious spondylodiscitis which could be the source of her bacteremia. We have requested transfer to [facility] but dye house supervisor said Dr. Sanchez has privileges at [facility] and will try to consult him. Her white count went up to 12.2, LFTs mildly going up. We will hold off on gabapentin for now. 04/30/25 Patient was evaluated at bedside. She is alert, awake and oriented. Her vitals are stable. She is interactive, expressing pain and discussing her medical history. She reports diffuse joint pain and is able to lift her arms or legs slightly due to pain and discomfort. Her active and passive range of motions are limited. 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 She also passed stool more than 5 times yesterday could be due to lactulose which has been stopped from today. A Percutaneous fluroscopy-guided placement of an 8-F nephrostomy catheter was performed,the patient tolerated the procedure well. Neurosurgeon Dr. Sanchez saw the patient and came up with possible diagnosis of discitis and osteomyelitis at L2-L3 along with psoas inflammation. She has spondylolisthesis which is non- critical and can be managed medically for now. According to Dr. Lorenzo she will benefit from IVIg for 3 days on the background of possible ITP. Her current platelet is 41 and Hgb 9.6. Also, Endocrinology team adjusted Insulin regimen. We have requested cardiology consult for suspected endocarditis and will request RAMAN although she has thrombocytopenia and h/o esophageal varices. 05/01/25 Patient was evaluated at bedside. She is alert, awake and oriented. Her vitals are stable, except blood pressure which is 158/80. She reports diffuse joint pain and is able to lift her arms or legs slightly due to pain and discomfort. Her active and passive range of motions are limited. 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 As per Dr. Lorenzo she will be started IVIG from today for 3 days. As per the Cardiology, she won't undergo RAMAN due thrombocytopenia, cirrhosis, varices. We will continue IV antibiotics and add low dose pregabalin for her pain. 05/02/25 Patient was evaluated at bedside. She is alert, awake and oriented. Her vitals are stable, except blood pressure which is 157/81. Labs showed WBC decreasing from 11.6 to 5.7, platelets from 44 to 32 and random glucose of 226. There has been marked decline in pain. We will continue IV antibiotics and she is receiving Immune globulin every 24 hr. Her Insulin dosage has been adjusted. Blood culture showed gram positive cocci in clusters, STAPHYLOCOCCUS AUREUS. Her prognosis remains guarded. Plan is to discharge her to [facility] for 6 weeks of IV antibiotics. 05/03/25 Patient was evaluated at bedside. She is alert, awake and oriented. Her vitals are stable,and her blood pressure which is 137/70. Labs showed WBC 7.8 , platelets from increasing from 32 to 44 and random glucose of 232. Her creatinine level is 1.2. There has been marked decline in pain and discomfort. We will continue IV antibiotics and she is receiving Immune globulin every 24 hr. Her last dose for Immune globulin is today. Her Insulin dosage has been adjusted. Blood culture showed gram positive cocci. Her prognosis remains guarded. She is on IV vancomycin. Plan is to discharge her to [facility] for 6 weeks of IV antibiotics. 05/04/25: The patient was evaluated at the bedside today. She had just finished showering and reported new-onset slurred speech, facial weakness and word- finding difficulty. She reports no weakness in the extremities. Blood cultures remain positive for gram-positive cocci, specifically MRSA. She is continuing on vancomycin, and gentamicin was initiated yesterday per Infectious Disease recommendations. She has completed a total of three IV IgG infusions. Platelet count is currently 31,000, decreased from 41,000 yesterday. Additionally, the patient has developed a groin rash with associated itching. Physical therapy noted that she was unable to ambulate today and experienced significant difficulty with mobility. We will continue to closely monitor her neurological status, platelet counts, and overall clinical response. Repeat blood cultures will be obtained at an appropriate interval following the initiation of gentamicin, per Infectious Disease guidance. Further assessment and management plan are outlined below. 05/05/25 The patient was evaluated at the bedside today. Her vitals are stable and comm unicated well. She complaints of pain in the neck and shoulder. She reports no weakness in the extremities. Blood cultures remain positive for gram-positive cocci, specifically MRSA. She is continuing on vancomycin, and gentamicin per Infectious Disease recommendations. Repeat blood cultures will be obtained at an appropriate interval following the initiation of gentamicin. She has completed a total of three IV IgG infusions. Platelet count is currently decreased from 31,000 [place] [address]. Her WBC is 6.8 and Hgb is 8.6. Her insulin medications has been adjusted by the endocrinology team. Additionally, the patient's groin rash with associated itching has been improving. She has been prescribed for Venlafaxine for management of depression and anxiety. Also Case management updated that they are in [facility] with [facility], Insurance approval is still pending; no authorization has been granted as of this time. Further assessment and management plan are outlined below. 05/06/25 The patient was evaluated at the bedside today. Her vitals are stable and communicated well. Her pain is gradually decreasing. She reports no weakness in the extremities. Blood cultures remain positive for gram-positive cocci, specifically MRSA. Blood culture has been sent today after 3 days of gentamicin. She is continuing on vancomycin, and gentamicin per Infectious Disease recommendations. . She has completed a total of three IV IgG infusions. Platelet count is currently decreased from 31,[address] Lorenzo, she has been planned for the transfusion of platelets today. Her WBC is 5.1, Hgb is 8.9, CRP 61.50 and whole blood glucose 233. In addition,PT is 17.2, INR 1.71, APTT 36.3 and Fibrinogen 119. Also, the Liver enzymes are elevated with total bilirubin of 1.6, AST 166, ALT 136 and ALP 358. Her Vancomycin trough level has increased from 5.0 to 18.1. Her insulin medications has been adjusted by the endocrinology team. Additionally, the patient's groin rash has been improving. As per Nephrology, the patient's renal function has actually greatly improved &the patient is being seen by case management in regards to placement at the LT[facility]. We will continue to follow the patient closely. 05/07/25 The patient was evaluated at the bedside today. Her vitals are stable and communicated well. Her pain has reduced significantly. Preliminary Blood cultures showed positive for gram-positive cocci which was done yesterday after 3 days of gentamicin. PICC line has been removed as per ID recommendation. [place] [address] today. Fecal occult blood test is positive. She received platelets transfusion yesterday. Her WBC is trending downwards from 5.1 to 3.0, Hgb is 8.4, and whole blood glucose 245. In addition, PT is 17.2, INR 1.71, APTT 36.3 and Fibrinogen 119. Her D-dimer is 7184. She has been planed today for bilateral US venous Doppler,V/Q scan and CTPA. Her Liver enzymes revealed total bilirubin of 1.9, AST 120, ALT 125 and ALP 371. Her Vancomycin trough level has decreased from 18.1 to 0.2. Her insulin medications has been followed by the endocrinology team. As per Dr Lorenzo, the patient can be transferred to [facility] as soon as accepted and he is trying to get her Promacta, medicine that raises the platelets,once its available. The WBC-tagged scan has been deferred and rescheduled for tomorrow to avoid excessive radiation exposure since patient was initially planned for V/Q scan today. 05/08/25 The patient was evaluated at the bedside today. Her vitals are stable and communicated well. She complained of hyperventilation in the night. Platelet count [id number] today. Her WBC is 5.6, Hgb is 9.1, and whole blood glucose is 314 . In addition, PT is 16, INR 1.58, APTT 35 and Fibrinogen 122. Her D-dimer is 6586. Her V/Q scan wasn't completed because she couldn't lie flat. The US venous doppler (B/L) was done which revealed no deep venous thrombosis evident in the bilateral lower extremity and No superficial thrombophlebitis in the bilateral lower extremity. Her Liver enzymes revealed total bilirubin of 1.9, AST 102, ALT 124 and ALP 391. Her Gentamicin peak and trough level is 0.2 and 0.3 respectively. Her insulin medications has been followed by the endocrinology team. We are awaiting for WBC tagged scan report. 05/09/25 The patient was evaluated at the bedside today. Her vitals are stable and communicated well. She complained of right lower [place] [address] today. Her WBC is 6.2, Hgb is 8.7, and random blood glucose is 236. Blood culture is positive for gram positive cocci. According to ID recommendation, Patient is started on Daptomycin and Ceftaroline. As per Dr Lorenzo, he is trying to get the promacta. Her Liver enzymes revealed total bilirubin of 1.8, AST 128, ALT 139 and ALP 410. Her creatinine is 1.2 and BUN is 41. Participation with physical therapy has been improving. We will continue to monitor patient. 05/10/25 The patient was evaluated at the bedside today. Her vitals are stable and communicated well. [place] [address] [place] [address]. Her WBCs trending downwards from 6.2 to 4.7, RBC 3.34, hemoglobin 8.8. Blood culture is positive for gram positive cocci. According to ID recommendation, Patient is on Day 2 of Daptomycin and Ceftaroline. Blood cultures will be sent on Monday. She did her 1st cycle of WBC tagged scan test. It will be done on 48 hours and then 72 hours. After that we will have the conclusive findings if anything is present. Her creatinine is trending upwards from 1.2 to 1.5 and blood urea nitrogen is 39. Her CRP is 47.80. Her creatinine is 1.2 and BUN is 41. Participation with physical therapy has been improving. As per the recommendation of Endocrinology she is getting Lantus 30 units daily and Humalog 10 units t.i.d. before beats patient's glucose are improving. Today's random blood glucose was 182. We will continue to monitor the patient. REVIEW OF SYSTEMS CONSTITUTIONAL: No fever, chills, or night sweats. NEUROLOGICAL: Denies headache, sensory and motor deficit. CARDIOVASCULAR: Denies any exertional angina, dyspnea on exertion, orthopnea, paroxysmal nocturnal dyspnea, palpitations. PULMONARY: Complained of hyperventilation in the night,Denies any shortness of breath, cough, phlegm/sputum, hemoptysis, pleuritic chest pain. GASTROINTESTINAL: Denies nausea, vomiting. Denies pain, tenderness around the abdomen. GENITOURINARY: Denies frequency, urgency, nocturia, hematuria or incontinence. PHYSICAL EXAM GENERAL APPEARANCE: The patient is alert, awake and oriented and bedbound NEUROLOGICAL: No sensory and motor deficits. CHEST: Normal chest expansion. LUNGS: Absence of any rales, rhonchi or any wheezing. CARDIOVASCULAR: Regular. S1 and S2 normal. No appreciable rubs, murmurs or gallops. ABDOMEN: Soft nontender, and nondistended. There is no rebound, voluntary guarding, or rigidity. GENITOURINARY: S/P day 8, Nephrostomy tube on the right side Vital Signs (last 8hr) Date Time Temp Pulse Resp B/P (MAP) Pulse Ox O2 Delivery O2 Flow Rate FiO2 05/10/25 12:00 98.1 67 18 143/54 97 Room Air 05/10/25 08:00 97.5 77 18 140/46 97 Room Air 05/10/25 08:00 Room Air* 0 21 LABS: Laboratory: Test 05/10/25 11:34 05/10/25 08:24 05/10/25 06:04 05/09/25 13:28 Range/Units Whole Blood Glucose 203 H 70-110 MG/DL Erythrocyte Sedimentation Rate 48 H 0-30 MM/HR White Blood Count 4.7 L 4.8-10.8 K/uL Red Blood Count 3.34 L 4.00-5.50 MIL/uL Hemoglobin 8.8 L 12.0-16.0 g/dL Hematocrit 29.2 L 36-48 % Mean Corpuscular Volume 87.4 79-99 fL Mean Corpuscular Hemoglobin 26.3 L 27.0-33.0 pg Mean Corpuscular Hemoglobin Concent 30.1 L 32.0-36.0 g/dL Red Cell Distribution Width 25.0 H 11.0-15.5 % Platelet Count 16 L 130-400 K/uL Mean Platelet Volume 11.3 H 7.5-10.5 fL Immature Granulocyte % (Auto) 0.8 0-1 % Neutrophils (%) (Auto) 78.4 H 40.0-77.0 % Lymphocytes (%) (Auto) 9.9 L 21.0-51.0 % Monocytes (%) (Auto) 10.1 3.0-13.0 % Eosinophils (%) (Auto) 0.6 0.0-8.0 % Basophils (%) (Auto) 0.2 0.0-5.0 % Neutrophils # (Auto) 3.7 1.8-7.7 K/uL Lymphocytes # (Auto) 0.5 L 1.0-4.8 K/uL Monocytes # (Auto) 0.5 0.1-1.0 K/uL Eosinophils # (Auto) 0.03 0.00-0.70 K/uL Basophils # (Auto) 0.01 0.00-0.20 K/uL Absolute Immature Granulocyte (auto 0.04 0-1 K/uL Nucleated Red Blood Cells 0.0 0.0-0.19 % Sodium Level 133 L 136-145 mmol/L Potassium Level 4.7 3.5-5.1 mmol/L Chloride Level 105 101-111 mmol/L Carbon Dioxide Level 25 21-32 mmol/L Blood Urea Nitrogen 39 H 7-18 mg/dL Creatinine 1.5 H 0.5-1.0 mg/dL Glomerular Filtration Rate Calc 41 >90 mL/min Random Glucose 182 H 70-105 mg/dL Total Calcium 8.2 L 8.5-10.1 mg/dL C-Reactive Protein, Quantitative 47.80 H 0.5-3.0 mg/L Gentamicin Level Trough 1.7 # 0.0-2.0 mcg/mL Test 05/09/25 03:07 05/08/25 20:24 Range/Units Total Bilirubin 1.8 H 0.2-1.0 mg/dL Aspartate Amino Transf (AST/SGOT) 128 H 10-37 U/L Alanine Aminotransferase (ALT/SGPT) 139 H 12-78 U/L Alkaline Phosphatase 410 H 50-136 U/L Total Protein 7.4 6.0-8.3 g/dL Albumin 1.4 L 3.5-5.0 g/dL Gentamicin Level Peak 3.2 #L 4.0-8.0 mcg/mL Vancomycin Level Trough 19.7 10.0-20.0 UG/ML Current Medications Medications (Trade) Dose Ordered Sig/Roberth Route PRN Reason Start Time Stop Time Status Last Admin Dose Admin Acetaminophen (TYLenol 325MG TAB) 650 mg Q4H PRN PO MILD PAIN (1-3) 04/22/25 20:00 05/22/25 19:59 04/30/25 06:17 650 MG Acetaminophen (TYLenol 325MG TAB) 650 mg Q6H PRN PO TEMPERATURE GREATER THAN 101.5 04/22/25 20:00 05/22/25 19:59 04/23/25 10:02 650 MG Acetaminophen/ Hydrocodone Bitart (NORco 5/325MG) 1 tab Q4H PRN PO MODERATE PAIN (4-6) 04/30/25 12:00 05/05/25 11:59 DC 04/30/25 22:07 1 TAB Atorvastatin Calcium (LIPItor 20MG) 20 mg HS PO 04/24/25 21:00 05/24/25 20:59 05/09/25 21:43 20 MG Ceftaroline Fosamil 400 mg/ Sodium Chloride 250 ml @ 250 mls/hr Q12H IV 05/09/25 17:00 05/19/25 16:59 05/10/25 05:18 250 MLS/HR Ceftriaxone Sodium 1 gm/ Sodium Chloride 50 ml @ 100 mls/hr BID IV 04/22/25 21:00 04/22/25 19:59 DC Ceftriaxone Sodium (ROCEphine 1G INJ) 1 gm BID IVPB 04/22/25 21:00 04/22/25 20:44 DC Ceftriaxone Sodium (ROCEphine 1G INJ) 1 gm BID IVPB 04/23/25 09:00 04/25/25 12:36 DC 04/25/25 09:44 1 GM Daptomycin 1000 mg/Sodium Chloride 100 ml @ 200 mls/hr Q24H IV 05/09/25 15:00 05/19/25 14:59 05/10/25 14:54 200 MLS/HR Dexamethasone Sodium Phosphate (dexaMETHasone 4MG/ML 1ML VIAL) 20 mg ONCALL IV 05/01/25 15:30 05/03/25 15:31 DC 05/02/25 15:41 20 MG Dexamethasone Sodium Phosphate (dexaMETHasone 4MG/ML 1ML VIAL) 20 mg ONCALL IV 05/03/25 17:15 05/03/25 17:16 DC 05/03/25 17:23 20 MG Dexamethasone Sodium Phosphate (dexaMETHasone 4MG/ML 1ML VIAL) 20 mg ONCE PRN IV PRE-MED 05/01/25 15:00 05/01/25 15:05 DC Dexmedetomidine/ Sodium Chloride (PRECEdex 200MCG/ 50ML-NS) 200 mcg PROTOCOL IV 04/26/25 12:00 04/26/25 14:54 DC Dexmedetomidine/ Sodium Chloride (PRECEdex 400MCG/ 100ML-NS) 400 mcg PROTOCOL PRN IV ANXIETY/AGITATION 04/26/25 19:30 05/01/25 12:45 DC 04/27/25 23:31 400 MCG Dexmedetomidine/ Sodium Chloride (PRECEdex 400MCG/ 100ML-NS) 400 mcg PROTOCOL STAT IV 04/26/25 14:53 04/26/25 14:58 DC 04/26/25 15:18 400 MCG Dextrose 1,000 ml @ 75 mls/hr [id number] IV 04/26/25 12:00 04/30/25 09:36 DC 04/29/25 04:27 150 MLS/HR Dextrose (D50w) 50 ml AD PRN IV HYPOGLYCEMIA PROTOCOL 04/22/25 20:00 05/22/25 19:59 Diphenhydramine HCl (BENAdryl INJ) 25 mg ONCALL IVP 05/01/25 15:30 05/03/25 15:31 DC 05/02/25 15:41 25 MG Diphenhydramine HCl (BENAdryl INJ) 25 mg ONCALL IVP 05/03/25 17:15 05/03/25 17:16 DC 05/03/25 17:22 25 MG Diphenhydramine HCl (BENAdryl INJ) 25 mg ONCE PRN IVP PRE-MED 05/01/25 15:00 05/01/25 15:06 DC Famotidine (Pepcid 20mg Tab) 20 mg DAILY PO 04/23/25 09:00 04/24/25 09:48 DC 04/23/25 09:33 20 MG Gabapentin (NEURontin 300 MG CAP) 300 mg BID PO 04/24/25 21:00 04/28/25 09:10 DC 04/25/25 21:51 300 MG Gentamicin Sulfate/Sodium Chloride 100 ml @ 200 mls/hr Q12H IV 05/09/25 02:00 05/09/25 13:30 DC 05/09/25 01:36 200 MLS/HR Gentamicin Sulfate/Sodium Chloride 100 ml @ 200 mls/hr Q24H IV 05/03/25 14:00 05/08/25 21:01 DC 05/08/25 14:18 200 MLS/HR Glucagon (Glucagon 1mg Kit) 1 mg AD PRN IM HYPOGLYCEMIA PROTOCOL 04/22/25 20:00 05/22/25 19:59 Heparin Sodium (Porcine) (HEParin 5,000 UNIT VIAL) 5,000 unit Q8H SQ 04/25/25 09:00 04/25/25 08:40 DC Hydromorphone HCl (DiLAUDid 0.5MG INJ) 0.5 mg BIDPRN PRN IVP SEVERE PAIN (7-10) 04/25/25 19:00 04/30/25 11:59 DC 04/29/25 23:31 0.5 MG Hydromorphone HCl (DiLAUDid 0.5MG INJ) 0.5 mg Q6H PRN IVP SEVERE PAIN (7-10) 04/23/25 14:00 04/25/25 08:25 DC 04/25/25 04:14 0.5 MG Hydromorphone HCl (DiLAUDid 1MG INJ) 1 mg TID PRN IVP SEVERE PAIN (7-10) 05/01/25 19:00 05/05/25 12:59 DC Hydromorphone HCl (DiLAUDid 1MG INJ) 1 mg TIDP PRN IVP SEVERE PAIN (7-10) 04/30/25 13:00 05/01/25 18:46 DC 04/30/25 20:44 1 MG Immune Globulin 400 ml @ 0 mls/hr Q24H IV 05/01/25 14:00 05/02/25 12:38 DC 05/01/25 16:18 37.5 MLS/HR Immune Globulin 400 ml @ 0 mls/hr Q24H IV 05/02/25 16:00 05/03/25 16:01 DC 05/02/25 16:46 37.5 MLS/HR Immune Globulin 400 ml @ 0 mls/hr Q24H IV 05/03/25 17:15 05/03/25 17:16 DC 05/03/25 17:57 37.5 MLS/HR Insulin Glargine (LANtus 100 UNITS/ML 10 ML VIAL) 10 units HS SQ 04/24/25 21:00 04/24/25 16:57 DC Insulin Glargine (LANtus 100 UNITS/ML 10 ML VIAL) 10 units ONCE STAT SQ 04/24/25 10:54 04/24/25 11:00 DC 04/24/25 11:19 10 UNITS Insulin Glargine (LANtus 100 UNITS/ML 10 ML VIAL) 15 units HS SQ 04/24/25 21:00 04/24/25 17:06 DC Insulin Glargine (LANtus 100 UNITS/ML 10 ML VIAL) 30 units DAILY SQ 05/05/25 09:00 05/07/25 23:47 DC 05/07/25 08:12 30 UNITS Insulin Glargine (LANtus 100 UNITS/ML 10 ML VIAL) 30 units ONCE SQ 04/24/25 17:00 04/25/25 06:19 DC 04/24/25 18:16 30 UNITS Insulin Glargine (LANtus 100 UNITS/ML 10 ML VIAL) 40 units DAILY SQ 05/08/25 09:00 06/07/25 08:59 05/10/25 09:16 40 UNITS Insulin Glargine (LANtus 100 UNITS/ML 10 ML VIAL) 40 units DAILY SQ 04/29/25 09:00 04/30/25 07:31 DC Insulin Glargine (LANtus 100 UNITS/ML 10 ML VIAL) 50 units DAILY SQ 04/26/25 09:00 04/29/25 06:49 DC 04/28/25 08:46 50 UNITS Insulin Glargine (LANtus 100 UNITS/ML 10 ML VIAL) 50 units DAILY SQ 04/30/25 09:00 05/05/25 07:21 DC 05/04/25 09:30 50 UNITS Insulin Human Regular (humuLIN R 100 UNIT/ML 3ML) 5 unit TIDAC SQ 04/24/25 17:00 04/24/25 17:06 DC Insulin Human Regular (humuLIN R 100 UNIT/ML 3ML) 8 unit TIDAC SQ 04/28/25 07:30 04/30/25 07:31 DC 04/30/25 06:15 8 UNIT Insulin Human Regular (humuLIN R 100 UNIT/ML 3ML) 10 unit TIDAC SQ 05/06/25 07:30 05/07/25 23:47 DC 05/07/25 16:06 10 UNIT Insulin Human Regular (humuLIN R 100 UNIT/ML 3ML) 10 unit TIDAC SQ 05/10/25 11:30 06/09/25 11:29 05/10/25 12:27 10 UNIT Insulin Human Regular (humuLIN R 100 UNIT/ML 3ML) 10 unit TIDAC SQ 04/24/25 17:00 04/25/25 06:17 DC 04/25/25 06:15 10 UNIT Insulin Human Regular (humuLIN R 100 UNIT/ML 3ML) 12 unit TIDAC SQ 05/05/25 07:30 05/05/25 22:51 DC Insulin Human Regular (humuLIN R 100 UNIT/ML 3ML) 12 unit TIDAC SQ 04/30/25 07:30 05/02/25 08:05 DC 05/02/25 06:45 12 UNIT Insulin Human Regular (humuLIN R 100 UNIT/ML 3ML) 15 unit TIDAC SQ 05/02/25 11:30 05/05/25 07:21 DC 05/04/25 17:33 15 UNIT Insulin Human Regular (humuLIN R 100 UNIT/ML 3ML) 15 unit TIDAC SQ 05/08/25 07:30 05/09/25 06:24 DC 05/08/25 17:16 15 UNIT Insulin Human Regular (humuLIN R 100 UNIT/ML 3ML) 15 unit TIDAC SQ 04/26/25 11:30 04/27/25 20:30 DC Insulin Human Regular (humuLIN R 100 UNIT/ML 3ML) 18 unit TIDAC SQ 05/09/25 07:30 05/10/25 09:56 DC 05/09/25 06:49 18 UNIT Insulin Human Regular (humuLIN R 100 UNIT/ML 3ML) 25 unit TIDAC SQ 04/25/25 07:30 04/26/25 07:58 DC 04/25/25 17:39 25 UNIT Insulin Human Regular (humuLIN R 100 UNIT/ML 3ML) INSULIN SLIDING SCAL... ACHS SQ 04/22/25 21:00 04/24/25 16:16 DC 04/24/25 11:18 8 UNIT Insulin Human Regular (humuLIN R 100 UNIT/ML 3ML) INSULIN SLIDING SCAL... ACHS SQ 05/05/25 07:30 06/04/25 07:29 05/10/25 12:28 6 UNIT Insulin Human Regular (humuLIN R 100 UNIT/ML 3ML) INSULIN SLIDING SCAL... ACHS SQ 04/24/25 16:30 04/25/25 14:09 DC 04/25/25 11:57 16 UNIT Insulin Human Regular (humuLIN R 100 UNIT/ML 3ML) INSULIN SLIDING SCAL... ACHS SQ 04/25/25 16:30 05/04/25 23:42 DC 05/04/25 20:49 6 UNIT Insulin Human Regular (humuLIN R 100 UNIT/ML 3ML) INSULIN SLIDING SCAL... Q4H SQ 04/27/25 20:30 04/28/25 09:11 DC 04/28/25 06:00 4 UNIT Lactated Ringer's 1,000 ml @ 100 mls/hr Q10H IV 04/22/25 20:00 04/23/25 10:09 DC 04/23/25 06:00 100 MLS/HR Lactulose (Constulose 20gm/ 30ml Udcup) 30 gm TID PO 04/25/25 11:00 04/30/25 09:45 DC 04/30/25 09:16 30 GM Levothyroxine Sodium (SYNTHroid 125MCG TAB) 125 mcg DAILY@0630 PO 04/25/25 06:30 05/25/25 06:29 05/10/25 05:16 125 MCG Lisinopril (Prinivil 10mg) 10 mg DAILY PO 05/02/25 09:00 06/01/25 08:59 05/10/25 09:09 10 MG Magnesium Sulfate 50 ml @ 0 mls/hr PROTOCOL PRN IV OTHER [SEE ORDER COMMENTS] 04/22/25 20:00 05/22/25 19:59 Methylprednisolone Sodium Succinate (Solu-medROL 125MG) 125 mg Q6H IVP 04/23/25 08:00 04/28/25 09:10 DC 04/25/25 09:45 125 MG Metoprolol Succinate (TopROL XL) 50 mg AM PO 04/25/25 09:00 05/25/25 08:59 05/10/25 09:09 50 MG Nystatin (NystOP 15 GM POWDER) apply abdominal fold/perineum BID TP 05/09/25 21:00 06/08/25 20:59 05/10/25 09:09 1 APPL Ondansetron HCl (zoFRAN 4MG INJ) 4 mg Q6H PRN IV NAUSEA/VOMITING 04/22/25 20:00 05/22/25 19:59 04/22/25 20:10 4 MG Pantoprazole Sodium (PROTonix 40MG INJ) 40 mg DAILY IVP 04/24/25 10:00 05/24/25 09:59 05/10/25 09:09 40 MG Pharmacy Profile Note (Pharmacy Communication) 1 each ONCE MISC 05/01/25 08:00 04/30/25 16:52 DC Pharmacy Profile Note (Pharmacy Communication) 1 each ONCE MISC 05/03/25 12:00 05/03/25 12:58 DC Pharmacy Profile Note (Pharmacy Communication) 1 each ONCE MISC 05/09/25 13:00 05/09/25 13:42 DC Potassium Chloride 100 ml @ 100 mls/hr AD PRN IV POTASSIUM PROTOCOL 04/22/25 20:00 05/22/25 19:59 Potassium Chloride (K-Dur/Klor-Con 20meq) 20 meq AD PRN PO POTASSIUM PROTOCOL 04/22/25 20:00 05/22/25 19:59 05/03/25 13:10 20 MEQ Potassium Chloride (KCl 10% Elixir 20meq/15ml) 20 meq AD PRN PO POTASSIUM PROTOCOL 04/22/25 20:00 05/22/25 19:59 Pramipexole Dihydrochloride (miraPEX 0.25MG TAB) 0.5 mg HS PO 04/24/25 21:00 05/24/25 20:59 05/09/25 21:43 0.5 MG Pregabalin (LYRica 25MG) 25 mg BID PO 05/01/25 21:00 05/05/25 07:22 DC 05/04/25 09:22 25 MG Pregabalin ([id number]) 75 mg BID PO 04/24/25 21:00 04/24/25 14:49 DC Sodium Chloride 500 ml @ 0 mls/hr Q0M IV 04/25/25 11:00 05/25/25 10:59 Sodium Zirconium Cyclosilicate (Lokelma 10gm Powder) 10 gm TID PO 04/23/25 21:00 04/23/25 14:11 DC Tramadol HCl (UltRAM) 50 mg Q6H PRN PO MODERATE PAIN (4-6) 04/24/25 22:30 04/29/25 22:29 DC 04/28/25 13:55 50 MG Trimethoprim/ Sulfamethoxazole (BactRIM DS) 1 tab BID PO 04/25/25 21:00 04/26/25 14:50 DC 04/25/25 21:51 1 TAB Vancomycin HCl 250 ml @ 125 mls/hr Q12H IV 04/24/25 23:00 04/25/25 12:36 DC 04/25/25 11:43 125 MLS/HR Vancomycin HCl 250 ml @ 125 mls/hr Q12H IV 04/26/25 15:30 04/28/25 03:13 DC 04/27/25 15:22 125 MLS/HR Vancomycin HCl 250 ml @ 125 mls/hr Q12H IV 04/28/25 15:30 04/28/25 18:53 DC Vancomycin HCl 250 ml @ 125 mls/hr Q12H IV 04/28/25 20:00 05/02/25 20:34 DC 05/02/25 10:21 125 MLS/HR Vancomycin HCl 250 ml @ 125 mls/hr Q12H9 IV 05/04/25 21:00 05/08/25 20:49 DC 05/08/25 08:48 125 MLS/HR Vancomycin HCl (Vancomycin 750mg) 750 mg Q12H IVPB 05/08/25 21:00 05/09/25 13:30 DC 05/09/25 09:45 750 MG Vancomycin HCl (Vancomycin Protocol) 1 each AD IV 04/24/25 10:30 04/25/25 12:36 DC Vancomycin HCl (Vancomycin Protocol) 1 each AD IV 04/26/25 15:00 05/09/25 13:30 DC Venlafaxine HCl (EffEXOR XR 37.5mg CAP) 37.5 mg DAILY PO 04/24/25 16:00 05/05/25 11:18 DC 05/04/25 09:21 37.5 MG Venlafaxine HCl (EffEXOR XR 37.5mg CAP) 37.5 mg DAILY PO 04/25/25 09:00 04/24/25 14:50 DC Venlafaxine HCl (EffEXOR XR 37.5mg CAP) 37.5 mg HS PO 05/05/25 21:00 06/04/25 20:59 05/09/25 21:43 37.5 MG DIAGNOSTICS / RADIOLOGY: [ ] 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 Suspected Endocarditis, RAMAN deferred due to bleeding risks; unable to rule out endocarditis Status post nephrostomy tube Rneate intertrigo Infectious spondylodiscitis L2-L3 Sepsis, unable to determine POA Acute hypoxic hypercapnic respiratory failure, not POA, resolved AMS due to suspected steroid induced psychosis or hepatic encephalopathy, not POA, resolved Hyperammonemia due to cirrhosis, resolved Intractable low back pain due to spinal stenosis POA Acute urinary tract infection due to MRSA POA Hypervolemic hyponatremia POA Chronic anemia POA Hyponatremia POA Acute kidney injury on renal insufficiency POA Hyperglycemia due to uncontrolled diabetes POA Hypocalcemia POA Cirrhotic liver with splenomegaly consistent with portal hypertension per CT POA Esophageal varices Renal parenchymal disease per CT POA Hypothyroidism POA Hyperlipidemia POA Hypertension POA Anxiety disorder POA Depression POA Restless leg syndrome POA Suspected obstructive sleep apnea untreated POA Morbid obesity POA PLAN: Persistent MRSA bacteremia, gram positive cocci positive as of 05/08/25 Osteomyelitis of L2-L3 POA PICC line has been removed Currently receiving daptomycin (Day 2) and ceftaroline (Day 2) per Infectious Disease (ID) recommendations. WBC tagged scan done today, now it needs to be done on 48 hours and 72 hours Plan for MRI of right shoulder, since she has on and off shoulder pain Maintain contact precautions for infection control. Repeat blood cultures per Infectious Disease protocol to monitor clearance of bacteremia. Patient will require a 6-week course of IV antibiotics; case management will assist with arranging appropriate placement for long-term IV therapy. Thrombocytopenia due to ITP DIC panel workup completed, PT is 16, INR 1.58, APTT 35 and Fibrinogen 122. D- dimer is 6586 as of 05/08/25 DIC panel to be sent tomorrow along with morning labs As per Dr Lorenzo, trying to get her Promacta when available (medicine that raises the platelets) V/Q scan unable to perform as she couldn't lie flat. Platelets has been transfused, but platelets is still 16K. Continue to follow Hematology recommendations for ongoing management of thrombocytopenia. Monitor platelet counts daily. Monitor for bleeding or thrombotic complications. Altered Mental Status due to Hepatic Encephalopathy or steroids induced psychosis, resolved Monitor ammonia levels, mental status, and signs of worsening encephalopathy. Monitor neuro status and reassess mental status regularly with steroid adjustments. Intractable lower back pain, resolving Per Dr. Sanchez, possible diagnosis of discitis and osteomyelitis at L2-L3 along with psoas inflammation. Continue multimodal pain management: acetaminophen, topical agents Pregabalin will be discontinued due to concern for possible medication-induced slurred speech. CT head showed no evidence of acute intracranial abnormalities. Neuro checks q4 Acute UTI, resolved Monitor for signs of urosepsis Encourage hydration and bladder care Hyponatremia, resolved Monitor serum Na closely; consider fluid restriction if dilutional. Renate intertrigo, resolved Patient is improved significantly The patient was given fluconazole 150 mg 1 dose today, gradually resolving Cirrhosis with portal hypertension Fecal occult blood test positive Liver functions improving Monitor for decompensation: encephalopathy, ascites, variceal bleeding. Consider beta sergio for variceal prophylaxis. Monitor LFTs, INR, and ammonia Her MELD- Na score is 24 points, 14-15% estimated 90 day mortality Hyperglycemia (Uncontrolled Diabetes) Lantus is 30 units daily as per endocrinology recommendations, and continue for regular insulin 15 units TIDAC before meals. Monitor blood glucose QID Educate on diet and insulin compliance; monitor for DKA if concern. Correct electrolytes accordingly. Chronic anemia H/o esophageal varices due to cirrhosis with portal hypertension Per GI, hold off on EGD given no overt GI bleeding and stable hemoglobin Monitor trends, H&H daily Avoid transfusion unless symptomatic or Hgb <7. We will order morning labs. Further orders per hospitalization course. ATTESTATION BY PHYSICIAN I have seen and examined the patient. I reviewed the documentation, medical decision making, and treatment plan as noted by the resident provider above. I agree with the findings and plan of care. Curtis Sanchez MD [facility],YOLANDA PERSAUD May 10, 2025 15:54
--- NOTE | 2025-05-10 16:01 | PN ---
HISTORY OF PRESENT ILLNESS: This is a 54-year-old morbidly obese female; cirrhosis of the liver; thrombocytopenia; currently has a gram-positive infection, MRSA, unclear source, possibly osteomyelitis, due to have white blood tagged study to identify the source of infection as she cannot get a RAMAN because of profound thrombocytopenia. She has received steroids. She has received IVIG. Platelets still are quite low. There is a concern of either sequestration thrombocytopenia from cirrhosis and portal hypertension, splenomegaly versus gram-positive infection. She is not bleeding. REVIEW OF SYSTEMS: GENERAL: Denies fatigue or weakness. NECK: Denies any neck pain or neck stiffness. RESPIRATORY: Denies any cough, sputum, hemoptysis. CARDIOVASCULAR: Denies any chest pain, palpitations, or orthopnea. GASTROINTESTINAL: She denies nausea or vomiting. PHYSICAL EXAMINATION: GENERAL: This is a morbidly obese 54-year-old female, not in any distress. VITAL SIGNS: Temperature 98.1, pulse 67, respirations 18, blood pressure 143/54. HEAD AND NECK: Sclerae are anicteric. Neck supple. No lymphadenopathy. LUNGS: Good air entry bilaterally. CARDIOVASCULAR: S1, S2 audible. No added sounds. ABDOMEN: Protruded. Signs of morbid obesity noted. EXTREMITIES: Bilateral pedal edema present. LAB RESULTS: WBC 4.7, hemoglobin 8.8, platelet count 16,000. BUN 39, creatinine 1.5. IMAGING STUDIES: No new imaging studies. ASSESSMENT AND PLAN: * Thrombocytopenia, likely complicating issues with cirrhosis, portal hypertension, splenomegaly, and possibly ITP. Now, she has persistent gram-positive bacteremia, MRSA worsening the situation. The patient has received steroids, received IVIG without significant sustained response. Plan is to have Promacta available for next line of treatment for persistent thrombocytopenia. Medication is not available in the hospital. Dr. Lorenzo has been trying to get approval or have the medication available from the clinic, but being on weekend is not available at this time. Continue monitoring at this time for the platelet count. If there are any signs of bleeding or bruising, there is no contraindication of her receiving platelet transfusion. * Ongoing bacteremia, gram-positive, MRSA, infectious disease service on board. Currently on medications, antibiotics including daptomycin pending white blood tagged study. Continue all supportive care. Plan of care reviewed with the patient and the nursing service. TID: [id number] RECEIPT: [id number] MTDD
[2025-05-10 20:00] VITALS: BP 124/51; PULSE 79; RESP 19; TEMP 97.9; O2SAT 97
[2025-05-10 23:42] VITALS: BP 120/55; PULSE 80; RESP 19; TEMP 98.1
[2025-05-11 04:00] VITALS: BP 134/55; PULSE 73; RESP 18; TEMP 98.1
[2025-05-11 05:21] LABS: NUCLEATED RED BLOOD CELLS 0.0 % (0.0-0.19); PLATELET COUNT (AUTO) 18 K/uL (130-400); RED BLOOD CELL COUNT(AUTO) 3.02 MIL/uL (4.00-5.50); RED CELL DISTRIBUTION WIDTH 24.8 % (11.0-15.5); WHITE BLOOD COUNT (AUTO) 6.8 K/uL (4.8-10.8)
[2025-05-11 05:33] LABS: INR 1.68 (0.85-1.15)
[2025-05-11] MEDS: LIDOCAINE 5% TOPICAL PATCH TP ONE (05:34)
[2025-05-11 05:49] LABS: PLATELET COUNT (AUTO) 18.0 K/uL (130-400)
[2025-05-11 05:53] LABS: ASPARTATE AMINOTRANSFERASE 153.0 U/L (10-37); CREATININE 1.8 mg/dL (0.5-1.0); GLOMERULAR FILTR. RATE CALC 33.0 mL/min (>90); GLUCOSE,RANDOM 244.0 mg/dL (70-105); PHOSPHORUS 3.7 mg/dL (2.5-4.9); SODIUM SERUM 131.0 mmol/L (136-145); TOTAL PROTEIN, SERUM 7.1 g/dL (6.0-8.3); UREA NITROGEN, BLOOD 41.0 mg/dL (7-18)
[2025-05-11 06:31] LABS: LYMPHOCYTES % (MANUAL) 2 % (22-44); MAN.DIFF COMMENT-IMPRESSION MANUAL DIFFERENTIAL; MONOCYTES % (MANUAL) 2 % (2-9); PLATELET MORPHOLOGY COMMENT MARKED DECREASE; SEGMENTED NEUTROPHILS % 96 % (40-70)
[2025-05-11 09:51] VITALS: BP 121/58; PULSE 63; RESP 18; TEMP 98.2
--- NOTE | 2025-05-11 10:35 | PN ---
NEPHROLOGY PROGRESS NOTE Date/Time Patient Seen: May 11, 2025 SUBJECTIVE: This is 54-year-old female with history of undiagnosed obstructive sleep apnea,diabetes type 2, hypertension, hyperlipidemia, hypothyroidism, restless leg syndrome, anxiety disorder,depression, lupus and severe morbid obesity The patient presented to the hospital with complaints of lower back pain. The patient had been taking prednisone as an outpatient. In the Emergency Room, the patient was found to have significant renal dysfunction with an elevated BUN and creatinine as well as significant hyperkalemia. The patient was treated medically for the hyperkalemia. Renal function did improve with hydration and she is being seen in consultation for all of the above. Creatinine did improve with the IV hydration. The patient's hyperkalemia has resolved and we will continue to follow the chemistries closely. The patient presents with persistent bacteremia. The patient continues with the antibiotics. She has had acute renal failure in the hospital. Creatinine has been elevated and the patient is being seen as a followup visit for all of the above. Pending WBC tagged scan test Renal function and electrolytes are stable She was seen in the medical floor, in no acute distress Family at the bedside REVIEW OF SYSTEMS: GENERAL: Negative for any nausea, vomiting, fevers, chills, or weight loss. NEUROLOGIC: Negative for any blurry vision, blind spots, double vision, facial asymmetry, dysphagia, dysarthria, hemiparesis, hemisensory deficits, vertigo, ataxia. HEENT: Negative for any head trauma, neck trauma, neck stiffness, photophobia, phonophobia, sinusitis, rhinitis. CARDIAC: Negative for any chest pain, dyspnea on exertion, paroxysmal nocturnal dyspnea, peripheral edema. PULMONARY: Negative for any shortness of breath, wheezing, COPD, or TB exposure. GASTROINTESTINAL: Negative for any abdominal pain, nausea, vomiting, bright red blood per rectum, melena. GENITOURINARY: Negative for any dysuria, hematuria, incontinence. INTEGUMENTARY: Negative for any rashes, cuts, insect bites. RHEUMATOLOGIC: Negative for any joint pains, photosensitive rashes, history of vasculitis or kidney problems. HEMATOLOGIC: Negative for any abnormal bruising, frequent infections or bleeding. Vital Signs (last 8hr) Date Time Temp Pulse Resp B/P (MAP) Pulse Ox O2 Delivery O2 Flow Rate FiO2 05/11/25 09:51 98.2 63 18 121/58 95 Room Air 05/11/25 04:00 98.1 73 18 134/55 93 Room Air PHYSICAL EXAM: GENERAL: Alert and oriented x 3. No acute distress. Well-nourished. EYES: EOMI. Anicteric. HENT: Moist mucous membranes. No scleral icterus. No cervical lymphadenopathy. LUNGS: Clear to auscultation bilaterally. No accessory muscle use. CARDIOVASCULAR: Regular rate and rhythm. No murmur. No JVD. ABDOMEN: Soft, non-tender and non-distended. No palpable masses. EXTREMITIES: No edema. Non-tender. SKIN: No rashes or lesions. Warm. NEUROLOGIC: No focal neurological deficits. CN II-XII grossly intact, but not individually tested. PSYCHIATRIC: Cooperative. Appropriate mood and affect. Current Medications Medications (Trade) Dose Ordered Sig/Roberth Route PRN Reason Start Time Stop Time Status Last Admin Dose Admin Acetaminophen (TYLenol 325MG TAB) 650 mg Q4H PRN PO MILD PAIN (1-3) 04/22/25 20:00 05/22/25 19:59 04/24/25 20:44 650 MG Acetaminophen (TYLenol 325MG TAB) 650 mg Q6H PRN PO TEMPERATURE GREATER THAN 101.5 04/22/25 20:00 05/22/25 19:59 04/23/25 10:02 650 MG Atorvastatin Calcium (LIPItor 20MG) 20 mg HS PO 04/24/25 21:00 05/24/25 20:59 04/24/25 19:57 20 MG Ceftriaxone Sodium 1 gm/ Sodium Chloride 50 ml @ 100 mls/hr BID IV 04/22/25 21:00 04/22/25 19:59 DC Ceftriaxone Sodium (ROCEphine 1G INJ) 1 gm BID IVPB 04/22/25 21:00 04/22/25 20:44 DC Ceftriaxone Sodium (ROCEphine 1G INJ) 1 gm BID IVPB 04/23/25 09:00 04/25/25 12:36 DC 04/25/25 09:44 1 GM Dextrose (D50w) 50 ml AD PRN IV HYPOGLYCEMIA PROTOCOL 04/22/25 20:00 05/22/25 19:59 Famotidine (Pepcid 20mg Tab) 20 mg DAILY PO 04/23/25 09:00 04/24/25 09:48 DC 04/23/25 09:33 20 MG Gabapentin (NEURontin 300 MG CAP) 300 mg BID PO 04/24/25 21:00 05/24/25 20:59 04/25/25 09:46 300 MG Glucagon (Glucagon 1mg Kit) 1 mg AD PRN IM HYPOGLYCEMIA PROTOCOL 04/22/25 20:00 05/22/25 19:59 Heparin Sodium (Porcine) (HEParin 5,000 UNIT VIAL) 5,000 unit Q8H SQ 04/25/25 09:00 04/25/25 08:40 DC Hydromorphone HCl (DiLAUDid 0.5MG INJ) 0.5 mg BIDPRN PRN IVP SEVERE PAIN (7-10) 04/25/25 19:00 04/30/25 18:59 Hydromorphone HCl (DiLAUDid 0.5MG INJ) 0.5 mg Q6H PRN IVP SEVERE PAIN (7-10) 04/23/25 14:00 04/25/25 08:25 DC 04/25/25 04:14 0.5 MG Insulin Glargine (LANtus 100 UNITS/ML 10 ML VIAL) 10 units HS SQ 04/24/25 21:00 04/24/25 16:57 DC Insulin Glargine (LANtus 100 UNITS/ML 10 ML VIAL) 10 units ONCE STAT SQ 04/24/25 10:54 04/24/25 11:00 DC 04/24/25 11:19 10 UNITS Insulin Glargine (LANtus 100 UNITS/ML 10 ML VIAL) 15 units HS SQ 04/24/25 21:00 04/24/25 17:06 DC Insulin Glargine (LANtus 100 UNITS/ML 10 ML VIAL) 30 units ONCE SQ 04/24/25 17:00 04/25/25 06:19 DC 04/24/25 18:16 30 UNITS Insulin Human Regular (humuLIN R 100 UNIT/ML 3ML) 5 unit TIDAC SQ 04/24/25 17:00 04/24/25 17:06 DC Insulin Human Regular (humuLIN R 100 UNIT/ML 3ML) 10 unit TIDAC SQ 04/24/25 17:00 04/25/25 06:17 DC 04/25/25 06:15 10 UNIT Insulin Human Regular (humuLIN R 100 UNIT/ML 3ML) 25 unit TIDAC SQ 04/25/25 07:30 05/25/25 07:29 04/25/25 11:58 25 UNIT Insulin Human Regular (humuLIN R 100 UNIT/ML 3ML) INSULIN SLIDING SCAL... ACHS SQ 04/22/25 21:00 04/24/25 16:16 DC 04/24/25 11:18 8 UNIT Insulin Human Regular (humuLIN R 100 UNIT/ML 3ML) INSULIN SLIDING SCAL... ACHS SQ 04/24/25 16:30 04/25/25 14:09 DC 04/25/25 11:57 16 UNIT Insulin Human Regular (humuLIN R 100 UNIT/ML 3ML) INSULIN SLIDING SCAL... ACHS SQ 04/25/25 16:30 05/25/25 16:29 Lactated Ringer's 1,000 ml @ 100 mls/hr Q10H IV 04/22/25 20:00 04/23/25 10:09 DC 04/23/25 06:00 100 MLS/HR Lactulose (Constulose 20gm/ 30ml Udcup) 30 gm TID PO 04/25/25 11:00 05/25/25 10:59 04/25/25 11:43 30 GM Levothyroxine Sodium (SYNTHroid 125MCG TAB) 125 mcg DAILY@0630 PO 04/25/25 06:30 05/25/25 06:29 Magnesium Sulfate 50 ml @ 0 mls/hr PROTOCOL PRN IV OTHER [SEE ORDER COMMENTS] 04/22/25 20:00 05/22/25 19:59 Methylprednisolone Sodium Succinate (Solu-medROL 125MG) 125 mg Q6H IVP 04/23/25 08:00 05/23/25 07:59 04/25/25 09:45 125 MG Metoprolol Succinate (TopROL XL) 50 mg AM PO 04/25/25 09:00 05/25/25 08:59 04/25/25 09:45 50 MG Ondansetron HCl (zoFRAN 4MG INJ) 4 mg Q6H PRN IV NAUSEA/VOMITING 04/22/25 20:00 05/22/25 19:59 04/22/25 20:10 4 MG Pantoprazole Sodium (PROTonix 40MG INJ) 40 mg DAILY IVP 04/24/25 10:00 05/24/25 09:59 04/25/25 09:45 40 MG Potassium Chloride 100 ml @ 100 mls/hr AD PRN IV POTASSIUM PROTOCOL 04/22/25 20:00 05/22/25 19:59 Potassium Chloride (K-Dur/Klor-Con 20meq) 20 meq AD PRN PO POTASSIUM PROTOCOL 04/22/25 20:00 05/22/25 19:59 Potassium Chloride (KCl 10% Elixir 20meq/15ml) 20 meq AD PRN PO POTASSIUM PROTOCOL 04/22/25 20:00 05/22/25 19:59 Pramipexole Dihydrochloride (miraPEX 0.25MG TAB) 0.5 mg HS PO 04/24/25 21:00 05/24/25 20:59 04/24/25 20:43 0.5 MG Pregabalin ([id number]) 75 mg BID PO 04/24/25 21:00 04/24/25 14:49 DC Sodium Chloride 500 ml @ 0 mls/hr Q0M IV 04/25/25 11:00 05/25/25 10:59 Sodium Zirconium Cyclosilicate (Lokelma 10gm Powder) 10 gm TID PO 04/23/25 21:00 04/23/25 14:11 DC Tramadol HCl (UltRAM) 50 mg Q6H PRN PO MODERATE PAIN (4-6) 04/24/25 22:30 04/29/25 22:29 04/25/25 02:32 50 MG Trimethoprim/ Sulfamethoxazole (BactRIM DS) 1 tab BID PO 04/25/25 21:00 05/05/25 20:59 Vancomycin HCl 250 ml @ 125 mls/hr Q12H IV 04/24/25 23:00 04/25/25 12:36 DC 04/25/25 11:43 125 MLS/HR Vancomycin HCl (Vancomycin Protocol) 1 each AD IV 04/24/25 10:30 04/25/25 12:36 DC Venlafaxine HCl (EffEXOR XR 37.5mg CAP) 37.5 mg DAILY PO 04/24/25 16:00 05/24/25 15:59 04/25/25 09:45 37.5 MG Venlafaxine HCl (EffEXOR XR 37.5mg CAP) 37.5 mg DAILY PO 04/25/25 09:00 04/24/25 14:50 DC LABORATORY: [ ] Hematology Labs: Test 05/11/25 04:41 05/10/25 08:24 05/10/25 06:04 Range/Units White Blood Count 6.8 # 4.8-10.8 K/uL Red Blood Count 3.02 L 4.00-5.50 MIL/uL Hemoglobin 8.1 L 12.0-16.0 g/dL Hematocrit 25.1 L 36-48 % Mean Corpuscular Volume 83.1 79-99 fL Mean Corpuscular Hemoglobin 26.8 L 27.0-33.0 pg Mean Corpuscular Hemoglobin Concent 32.3 32.0-36.0 g/dL Red Cell Distribution Width 24.8 H 11.0-15.5 % Platelet Count 18 #L 130-400 K/uL Mean Platelet Volume 7.5-10.5 fL Segmented Neutrophils % 96 H 40-70 % Lymphocytes % (Manual) 2 L 22-44 % Monocytes % (Manual) 2 2-9 % Nucleated Red Blood Cells 0.0 0.0-0.19 % Differential Comment MANUAL DIFFERENTIAL White Cell Morphology Comment Platelet Morphology Comment MARKED DECREASE Red Blood Cell Morphology See comments Erythrocyte Sedimentation Rate 48 H 0-30 MM/HR Immature Granulocyte % (Auto) 0.8 0-1 % Neutrophils (%) (Auto) 78.4 H 40.0-77.0 % Lymphocytes (%) (Auto) 9.9 L 21.0-51.0 % Monocytes (%) (Auto) 10.1 3.0-13.0 % Eosinophils (%) (Auto) 0.6 0.0-8.0 % Basophils (%) (Auto) 0.2 0.0-5.0 % Neutrophils # (Auto) 3.7 1.8-7.7 K/uL Lymphocytes # (Auto) 0.5 L 1.0-4.8 K/uL Monocytes # (Auto) 0.5 0.1-1.0 K/uL Eosinophils # (Auto) 0.03 0.00-0.70 K/uL Basophils # (Auto) 0.01 0.00-0.20 K/uL Absolute Immature Granulocyte (auto 0.04 0-1 K/uL Chemistry Labs: Test 05/11/25 05:27 05/11/25 04:41 05/10/25 06:04 Range/Units Whole Blood Glucose 210 H 70-110 MG/DL Sodium Level 131 L 136-145 mmol/L Potassium Level 4.5 3.5-5.1 mmol/L Chloride Level 101 101-111 mmol/L Carbon Dioxide Level 22 21-32 mmol/L Blood Urea Nitrogen 41 H 7-18 mg/dL Creatinine 1.8 H 0.5-1.0 mg/dL Glomerular Filtration Rate Calc 33 >90 mL/min Random Glucose 244 H 70-105 mg/dL Total Calcium 8.2 L 8.5-10.1 mg/dL Phosphorus Level 3.7 2.5-4.9 mg/dL Magnesium Level 1.80 1.80-2.40 mg/dL Total Bilirubin 2.1 H 0.2-1.0 mg/dL Aspartate Amino Transf (AST/SGOT) 153 H 10-37 U/L Alanine Aminotransferase (ALT/SGPT) 154 H 12-78 U/L Alkaline Phosphatase 443 H 50-136 U/L Total Protein 7.1 6.0-8.3 g/dL Albumin 1.3 L 3.5-5.0 g/dL C-Reactive Protein, Quantitative 47.80 H 0.5-3.0 mg/L Coagulation Labs: Test 05/11/25 04:41 Range/Units Prothrombin Time 16.9 H 9.6-11.6 SEC Prothromb Time International Ratio 1.68 H 0.85-1.15 Activated Partial Thromboplast Time 43.3 H 26.3-35.5 SEC Fibrinogen 102 L 180-350 mg/dL D-Dimer Quantitative (PE/DVT) 8007 *H 0-500 ng/mL DIAGNOSTICS / RADIOLOGY: [place] [address] [place] [address] IMAGING REPORT Signed PATIENT: LUCÍA CATALAN MR#: [id number] : 1970 SEX: F AGE: 54 LOCATION: [facility] ORDER 1400 STATUS: ADM IN REPORT#: [id number] SERVICE 1356 REASON: Shoulder pain ORDERING PHYSICIAN: YOLANDA CHOW MD PROCEDURE: THEO RT WO - MR SHOULDER RIGHT WO CLINICAL INFORMATION Shoulder pain COMPARISON None. TECHNIQUE Multiplanar multisequence MR imaging of the right shoulder without contrast FINDINGS OSSEOUS AND ARTICULAR STRUCTURES Acromioclavicular joint: Mild degenerative changes. Glenohumeral joint: Mild cartilage thinning. Small joint effusion. Bones: No fracture or infiltrative marrow disorder. BURSAE Subacromial/subdeltoid bursa: Mild bursitis. Subcoracoid bursa: Normal. ROTATOR CUFF Supraspinatus: Tendinosis with high-grade partial-thickness bursal sided tear at the myotendinous junction. Infraspinatus: Tendinosis with low-grade partial-thickness bursal sided tear at the footplate. Subscapularis: Tendinosis without high-grade tear. Teres minor: No evidence for tear or tendinopathy. Musculature has normal bulk and signal intensity. LABRUM/CAPSULE Labrum: Diffuse mild degeneration. No acute focal tear. Glenohumeral ligaments: Intact, with mild thickening and edema of the maxillary pouch. MISCELLANEOUS Long head biceps tendon: Not well visualized, may be due to plane of imaging, prior tear or severe intra-articular tendinopathy. Rotator interval: Edema. Other: None. IMPRESSION Supraspinatus tendinosis with high-grade partial-thickness bursal sided tear at the myotendinous junction. Infraspinatus tendinosis with low-grade partial-thickness bursal sided tear at the footplate. Subscapularis tendinosis without high-grade tear. Mild acromioclavicular and glenohumeral osteoarthritis. Mild subacromial/subdeltoid bursitis. Findings which can be seen in the setting of adhesive capsulitis. /[place] DICTATED BY: JOVANY GALE MD DATE: 05/11/251349 ELECTRONICALLY SIGNED BY: JOVANY GALE MD DATE: 05/11/251349 PATIENT: LUCÍA CATALAN MR#: [id number] : 1970 SEX: F AGE: 54 LOCATION: [facility] ORDER 0943 STATUS: ADM IN REPORT#: [id number] SERVICE 0941 REASON: SOB, Elevated D-dimer ORDERING PHYSICIAN: GLORIA BORDEN MD PROCEDURE: CXR1VW - CHEST 1VW EXAM: CR Chest, 1 View. CLINICAL HISTORY: SOB, Elevated D-dimer COMPARISON: Radiograph dated May 02, 2025 FINDINGS: Right PICC terminates overlying the SVC. Bibasilar atelectasis. Lungs are otherwise clear. No pleural effusion or pneumothorax. Heart size is stable. Mild central pulmonary vascular congestion. IMPRESSION: 1. No acute cardiopulmonary findings. 2. Right PICC line with appropriate positioning. /[place] DICTATED BY: BROOKLYN LOPEZ Jr., MD DATE: 05/07/251119 ELECTRONICALLY SIGNED BY: BROOKLYN LOPEZ Jr., MD DATE: 05/07/251119 IMAGING REPORT Signed PATIENT: LUCÍA CATALAN MR#: [id number] : 1970 SEX: F AGE: 54 LOCATION: [facility] ORDER 0859 STATUS: ADM IN REPORT#: [id number] SERVICE 0857 REASON: Elevated D-dimer ORDERING PHYSICIAN: GLORIA BORDEN MD PROCEDURE: VENOUS LUDWIG - US VENOUS DOPPLER BILATERAL EXAMINATION: SPECTRAL DOPPLER ULTRASOUND EXAMINATION OF THE BILATERAL LOWER EXTREMITY VEINS. CLINICAL HISTORY: Elevated D-dimer. COMPARISON: Duplex lower extremity veins dated 04/09/2025. TECHNIQUE: Real-time ultrasound scan of the veins of the bilateral lower extremity with color Doppler flow, spectral waveform analysis and compression. FINDINGS: DEEP VEINS: The common femoral, superficial femoral, and popliteal veins are echolucent and compressible. There is normal color Doppler flow throughout. The visualized calf veins appear patent. SUPERFICIAL VEINS: The greater saphenous veins are patent and compressible. SOFT TISSUES: No popliteal fossa cyst or other abnormalities. IMPRESSION: No deep venous thrombosis evident in the bilateral lower extremity. No superficial thrombophlebitis in the bilateral lower extremity. /[place] DICTATED BY: MARISELA MCDONOUGH MD DATE: 05/08/25756 ELECTRONICALLY SIGNED BY: MARISELA MCDONOUGH MD DATE: 05/08/25756 PATIENT: LUCÍA CATALAN MR#: [id number] : 1970 SEX: F AGE: 54 LOCATION: [facility] ORDER 1521 STATUS: ADM IN REPORT#: [id number] SERVICE 16 REASON: Slurred speech, R/o Stroke ORDERING PHYSICIAN: GLORIA BORDEN MD PROCEDURE: HEAD WO - CT HEAD/BRAIN W/O CONTRAST EXAM: CT Head Without IV contrast. CLINICAL HISTORY: Slurred speech, R/o Stroke TECHNIQUE: Axial computed tomography images of the head/brain without intravenous contrast. COMPARISON: 04/26/2025. FINDINGS: BRAIN: No evidence of acute hemorrhage. No mass lesion. No CT evidence for acute territorial infarct. No midline shift or extra-axial collections. VENTRICLES: No hydrocephalus. ORBITS: The orbits are unremarkable. SINUSES AND MASTOIDS: The paranasal sinuses and mastoid air cells are clear. BONES: No fracture. SOFT TISSUES: Unremarkable. IMPRESSION: No acute intracranial abnormality. /[place] DICTATED BY: MARISELA MCDONOUGH MD DATE: 05/04/251756 ELECTRONICALLY SIGNED BY: MARISELA MCDONOUGH MD DATE: 05/04/251756 REASON: SEVERE LOWER BACK ACHE ORDERING PHYSICIAN: KALI ALBERT MD PROCEDURE: L SPIN WO - CT LUMBAR SPINE W/O CONTRAST EXAM: CT Lumbar Spine Without IV Contrast CLINICAL HISTORY: Pain. TECHNIQUE: Spiral axial CT images through the lumbar spine were acquired, reconstructed in axial and sagittal projections, and imaged using soft tissue and bone algorithms. Reformatted/MPR images were performed. CT scan is done according to ALARA (As Low as Reasonably Achievable). CONTRAST: None. COMPARISON: X-ray lumbar spine dated 04/20/25. FINDINGS: No acute fracture. Normal lordotic curvature. Mild levoscoliosis. Normal vertebral body heights. Diffuse osteopenia. Moderate lumbar spondylosis with multilevel marginal osteophytes, facet arthropathy, and degenerative disc space reduction, most pronounced at L4-L5. The surrounding soft tissues are unremarkable. Individual spinal levels are described as follows: T12-L1: No disc bulge or herniation. No neural foraminal, lateral recess or spinal canal stenosis. L1-L2: No disc bulge or herniation. No neural foraminal, lateral recess or spinal canal stenosis. L2-L3: 6 mm diffuse disc bulge. Severe right and moderate left lateral recess and neural foraminal stenosis. Moderate spinal canal stenosis. L3-L4: 4 mm diffuse disc bulge. Moderate bilateral lateral recess and neural foraminal stenosis. Mild spinal canal stenosis. L4-L5: 6 mm diffuse disc bulge. Bilateral ligamentum flavum and facet hypertrophy. Severe bilateral lateral recess and neural foraminal stenosis. Moderate spinal canal stenosis. L5-S1: 3 mm diffuse disc bulge. Bilateral facet hypertrophy. Severe bilateral lateral recess and neural foraminal stenosis. Mild spinal canal stenosis. IMPRESSION: No fracture or dislocation in the lumbar spine. Moderate lumbar spondylosis with multilevel marginal osteophytes, facet arthropathy, and degenerative disc space reduction, most pronounced at L4-L5. Diffuse osteopenia. Mild levoscoliosis. Diffuse disc bulges from L2-L3 through L5-S1. Severe right and moderate left lateral recess and neural foraminal stenosis at L2-L3 with moderate spinal canal stenosis. Moderate bilateral lateral recess and neural foraminal stenosis at L3-L4 with mild spinal canal stenosis. Severe bilateral lateral recess and neural foraminal stenosis at L4-L5 with moderate spinal canal stenosis. Severe bilateral lateral recess and neural foraminal stenosis at L5-S1 with mild spinal canal stenosis. /[place] DICTATED BY: MARISELA MCDONOUGH MD DATE: 04/24/25 1401 REASON: CIRRHOSIS ORDERING PHYSICIAN: KALI ALBERT MD PROCEDURE: [id number] - US ABDOMINAL [facility] EXAMINATION: ULTRASOUND OF THE ABDOMEN (LIMITED) WITH COLOR DOPPLER. CLINICAL HISTORY: Cirrhosis. COMPARISON: CT abdomen and pelvis without contrast dated 04/22/2025. TECHNIQUE: Real-time grayscale ultrasound images of the abdomen. In addition, color Doppler is medically necessary to perform in order to evaluate vascularity and blood flow. FINDINGS: Liver: Normal in caliber, the right hepatic lobe measures 14.1 cm in the craniocaudal dimension. There is coarse echotexture of the hepatic parenchyma. There is no intrahepatic biliary ductal dilatation. There is normal spectral Doppler of the main portal vein. There is a hypoechoic lesion that measures 1.3 x 1.1 x 1.7 cm in the right lobe. Gallbladder: Post cholecystectomy status. Common bile duct is normal in caliber, measuring 0.5 cm. Pancreas: Obscured by overlying bowel gas The right kidney is normal in caliber, the right kidney measures 13.4 x 6.6 x 6.4 cm in craniocaudal, AP, and transverse dimensions respectively. There is normal renal cortical thickness, and cortical echogenicity. There is no renal calculus. There is moderate right hydronephrosis. IMPRESSION: Chronic hepatic disease. Hypoechoic lesion in the right lobe of the liver may reflect complex cyst. Post cholecystectomy status. Moderate right hydronephrosis. Recommend CT abdomen and pelvis with contrast. /[place] DICTATED BY: MARISELA MCDONOUGH MD DATE: 04/24/25 1158 REASON: Abdominal pain ORDERING PHYSICIAN: CAROL CLAYTON MD PROCEDURE: ABD PEL WO - CT ABDOMEN/PELVIS W/O CONTRAST EXAM: CT Abdomen and Pelvis without IV contrast CLINICAL HISTORY: Abdominal pain TECHNIQUE: Axial computed tomography images of the abdomen and pelvis without intravenous contrast. CT scan performed according to ALARA. Automated exposure control used during exam. CONTRAST: without intravenous contrast. COMPARISON: CT images dated February 20, 2025 FINDINGS: Lung bases are clear. Cirrhotic hepatic morphology. Splenomegaly reflect sequela of portal venous hypertension. Bilateral adrenal glands, and pancreas are within normal limits. The gallbladder is surgically absent. Bilateral renal cortical thickening with the cortices measuring up to 3.2 cm, may reflect renal parenchymal disease. Recommend correlation with laboratory parameters. No renal calculus or hydronephrosis appreciated. Bowel loops are normal in caliber without evidence of obstruction, ileus, or obvious bowel wall thickening. The appendix is within normal limits. No abnormality within the unopacified bladder. Pelvic organs demonstrate appropriate CT appearances. Trace free fluid within the pelvis. Presumed 3.0 x 1.7 cm seroma or sebaceous cyst within the ventral abdominal wall subcutaneous layer. There is no lymphadenopathy. There is no acute or suspicious osseous abnormality. IMPRESSION: 1. No acute intraabdominal or pelvic pathology. 2. Cirrhotic liver morphology with splenomegaly, consistent with portal hypertension. 3. Bilateral renal cortical thickening, may reflect renal parenchymal disease. /[place] DICTATED BY: BROOKLYN LOPEZ Jr., MD DATE: 04/22/251917 ASSESSMENT: Intractable low back pain due to spinal stenosis POA 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 POA Acute urinary tract infection due to MRSA POA Hypervolemic hyponatremia POA Chronic anemia POA Hyponatremia POA Acute kidney injury on renal insufficiency POA Hyperglycemia due to uncontrolled diabetes POA Hypocalcemia POA Cirrhotic liver with splenomegaly consistent with portal hypertension per CT POA Esophageal varices Renal parenchymal disease per CT POA Hypothyroidism POA Hypocalcemia POA Hyperlipidemia POA Hypertension POA Anxiety disorder POA Depression POA Restless leg syndrome POA Suspected obstructive sleep apnea untreated POA Morbid obesity POA PLAN: Labs, diagnostic, radiologic exams reviewed and interpreted by myself and supervising physician. We have reviewed external records in detail Pending labeled leukocyte scan Require close monitoring of renal function and electrolytes Order CBC, CMP, and electrolytes in am Continue with antibiotics BiPAP as necessary, for respiratory distress Monitor blood pressure adjust medication doses as needed Avoid hypotensive episodes May use Dilaudid 0.5 mg IV every 6 hours as needed for severe pain Monitor blood sugars Strict intake, output, and daily weight should be monitored Please renally adjust medications Avoid nephrotoxic and nonsteroidal drugs Avoid contrast if possible Will continue to monitor renal function, anemia, electrolytes Treatment plan discussed with patient Questions were answered We have discussed with the other team physicians in detail about the care plan We will continue to monitor the patient closely ATTESTATION BY PHYSICIAN I have seen and examined the patient. I reviewed the documentation, medical decision making, and treatment plan as noted by the mid-level provider above. I agree with the findings and plan of care. ELKIN JOLLY MD, [facility] May 11, 2025 10:35
[2025-05-11 12:00] VITALS: BP 120/60; PULSE 66; RESP 18; TEMP 98.1
--- NOTE | 2025-05-11 12:52 | HMCIMG ---
CLINICAL INFORMATION Shoulder pain COMPARISON None. TECHNIQUE Multiplanar multisequence MR imaging of the right shoulder without contrast FINDINGS OSSEOUS AND ARTICULAR STRUCTURES Acromioclavicular joint: Mild degenerative changes. Glenohumeral joint: Mild cartilage thinning. Small joint effusion. Bones: No fracture or infiltrative marrow disorder. BURSAE Subacromial/subdeltoid bursa: Mild bursitis. Subcoracoid bursa: Normal. ROTATOR CUFF Supraspinatus: Tendinosis with high-grade partial-thickness bursal sided tear at the myotendinous junction. Infraspinatus: Tendinosis with low-grade partial-thickness bursal sided tear at the footplate. Subscapularis: Tendinosis without high-grade tear. Teres minor: No evidence for tear or tendinopathy. Musculature has normal bulk and signal intensity. LABRUM/CAPSULE Labrum: Diffuse mild degeneration. No acute focal tear. Glenohumeral ligaments: Intact, with mild thickening and edema of the maxillary pouch. MISCELLANEOUS Long head biceps tendon: Not well visualized, may be due to plane of imaging, prior tear or severe intra-articular tendinopathy. Rotator interval: Edema. Other: None. IMPRESSION Supraspinatus tendinosis with high-grade partial-thickness bursal sided tear at the myotendinous junction. Infraspinatus tendinosis with low-grade partial-thickness bursal sided tear at the footplate. Subscapularis tendinosis without high-grade tear. Mild acromioclavicular and glenohumeral osteoarthritis. Mild subacromial/subdeltoid bursitis. Findings which can be seen in the setting of adhesive capsulitis. /Simon
[2025-05-11 17:26] VITALS: BP 122/64; PULSE 68; RESP 18; TEMP 98.5
--- NOTE | 2025-05-11 18:09 | PN ---
[facility] PROGRESS NOTE Date of Service: May 11, 2025 Time of Service: 17:47 SUBJECTIVE: This is a 54-year-old female with past medical history of undiagnosed obstructive sleep apnea, diabetes type 2, hypertension, hyperlipidemia, hypothyroidism, restless leg syndrome, anxiety disorder,depression, lupus and severe morbid obesity who presents to the ED for complaints of severe low back pain which started 2 weeks ago and getting worse for the past 2 days and patient reports she is taking prednisone 30mg po daily for her Lupus she said.Patient also reports she was recently seen in this ED for similar complaints and was diagnosed with acute lumbosacral myofascial strain. and patient was given pain meds and discharged home and came again today due to pain intensity is so severe and intolerable.Patient also reports that her whole body hurts more on muscle pain she said.Patient also reports she has muscle pain on her chest and it reproducible on light palpation.Patient also states she vomited x 1 today .Patient denies any injury,trauma and fall.Patient also reports that she is on her monthly period today and it is her first day.patient also states that is her housing management representative and her last seen him last year and that she has insurance problem reason she was unable to keep her follow up. Urinalysis consistent with urinary tract infection. CT abdomen and pelvis result revealed no acute intra-abdominal or pelvic pathology cirrhotic liver morphology with splenomegaly, consistent with portal hypertension. Bilateral r enal cortical thickening may reflect renal parenchymal disease. While in the ER patient received Rocephin 1 g IV, 1 L NS bolus. We will admit patient for further medical management. 04/23/25 Patient was seen and examined at bedside. She was complaining of chest pain early in the morning but her EKG and troponin were normal. Patient says she got liver cirrhosis from taking Tylenol with codeine in the past for a long time. Remarkable labs are Na 129, K 6.4. Cl 98, BUN 44. Cr 1.2 with no anion gap. New EKG shows sinus rhythm with no tall T-waves or shortened QT interval. We will give her a dose of calcium gluconate and lokelma and recheck her labs. we will hold her iv fluids for now. Her urine anion gap is 36.0 mEq/l. Repeat potassium was 4.2 and 4.6. We will order CT lumbar spine and request nephro and cardio consults due to hyponatremia, RTA and cirrhosis with portal hypertension res pectively. We will order lupus, complement , anemia panel due to her abnormal labs and h/o SLE. Hematology recommended solu medrol 125 q6. she might need hydrochloroquine upon discharge for SLE 04/24/25 Patient was seen and examined at bedside. She is complaining of widespread generalized body pain with tender points and generalized weakness, her CPK is going up, we will repeat it and start her on pregabalin. Her labs are improving. She had an EGD done last year that showed grade III varices but lost to follow up with TDS. No GI intervention as her Hb is stable. Will start her on vancomycin. Her home meds have been reconciled. She takes venlaflaxine and pramipexole for depression and restless leg syndrome respectively. Her elevated urine anion gap could be due to BALTAZAR or NSAID induced kidney injury but her creatinine is improving. Pending abdominal ultrasound and CT lumbar spine result s. 04/25/25 Patient was seen and examined. She was observed sitting in a chair but was unable to answer questions appropriately and appeared confused. Ammonia level was elevated at 59; lactulose has been initiated at 30 mL TID. She is currently receiving vancomycin for MRSA identified in the urine. Right upper quadrant ultrasound demonstrated chronic hepatic changes with a hypoechoic lesion in the right lobe of the liver, possibly representing a complex cyst. CT of the lumbar spine revealed moderate lumbar spondylosis and diffuse osteopenia. Her platelet count is 37 and showing slow improvement. Dr. Urias, covering for Dr. Lorenzo, recommended holding solu-medrol for now. If platelet count declines tomorrow, steroids may need to be restarted. Ammonia and additional labs will be rechecked in the morning. 04/26/25 Patient was seen at bedside. Will request a transfer to the ICU due to worsening agitation and hypercapnic respiratory failure requiring BIPAP support.Will order Precedex drip for sedation to improve tolerance of non-invasive ventilation. Imaging studies including CT head and MRI spine have been ordered to evaluate for underlying neurologic causes. Patient remains hemodynamically stable; pulmonary consult is in place. She is growing gram positive cocci in clusters in her blood, will request ID input on antibiotics as she was on vancomycin previously and was started on bactrim for MRSA in urine. Her platelet count is 36 and solu-medrol is on hold. Ammonia improved from 59 to 12 04/27/25 Patient was evaluated at bedside. She was transferred to the ICU yesterday due to agitation and hypercapnia, requiring a Precedex drip as she was removing her nasal cannula. BiPAP was initiated to support ventilation, and she is now resting comfortably. CT brain was unremarkable with no acute findings. She has a free water deficit of approximately 1.4 liters, for which D5W will be administered. CRP has decreased from 83.5 to 56.4. However, platelets have dropped from 36 to 28, and hematology is closely monitoring her. The patient remains NPO. We wanted to start NG tube feeding but patient has h/o esophageal varices. We will await gastroenterologys recommendations, including possible EGD if indicated. 04/28/25 Patient was evaluated at bedside, she is bed bound not very responsive to questions. She is currently off BiPAP and precedex drip. Her agitation has improved and she is resting comfortably in bed. She has MRSA bacteremia and we will repeat blood cultures. She is currently on vancomycin. She has moderate right hydronephrosis which is increasing, we will request urology consult. Her sodium is trending upwards from 147 to 152 and she has a free water deficit of 2.4 L , we will increase D5 rate from 75 to 150mls/hr. CRP improving from 56.4 to 42.7. Platelets dropped from 28 to 21, we will follow Dr. Lorenzo's recommendations and his plan is give her IgG. She is not bleeding actively. 04/29/25 Patient was evaluated at bedside. She is alert, awake and oriented. She was minimally verbal yesterday but is now more interactive, expressing pain and discussing her medical history. She reports diffuse joint pain and is unable to lift her arms or legs due to significant discomfort. She has generalized joint tenderness and weak humidifier attendant strength bilaterally. urologist Dr. Colin recommended nephrostomy tube on her right due to hydronephrosis. Her platelets improved to 44 without any intervention. She will be getting platelets for the procedure. She has infectious spondylodiscitis which could be the source of her bacteremia. We have requested transfer to [facility] but housemaid said Dr. Sanchez has privileges at [facility] [place] and will try to consult him. Her white count went up to 12.2, LFTs mildly going up. We will hold off on gabapentin for now. 04/30/25 Patient was evaluated at bedside. She is alert, awake and oriented. Her vitals are stable. She is interactive, expressing pain and discussing her medical history. She reports diffuse joint pain and is able to lift her arms or legs slightly due to pain and discomfort. Her active and passive range of motions are limited. She has generalized joint tenderness and weak humidifier attendant strength bilaterally. She also passed stool more than 5 times yesterday could be due to lactulose which has been stopped from today. A Percutaneous fluroscopy-guided placement of an 8-F nephrostomy catheter was performed,the patient tolerated the procedure well. Neurosurgeon Dr. Sanchez saw the patient and came up with possible diagnosis of discitis and osteomyelitis at L2-L3 along with psoas inflammation. She has spondylolisthesis which is non- critical and can be managed medically for now. According to Dr. Lorenzo she will benefit from IVIg for 3 days on the background of possible ITP. Her current platelet is 41 and Hgb 9.6. Also, Endocrinology team adjusted Insulin regimen. We have requested cardiology consult for suspected endocarditis and will request RAMAN although she has thrombocytopenia and h/o esophageal varices. 05/01/25 Patient was evaluated at bedside. She is alert, awake and oriented. Her vitals are stable, except blood pressure which is 158/80. She reports diffuse joint pain and is able to lift her arms or legs slightly due to pain and discomfort. Her active and passive range of motions are limited. She has generalized joint tenderness and weak humidifier attendant strength bilaterally. As per Dr. Lorenzo she will be started IVIG from today for 3 days. As per the Cardiology, she won't undergo RAMAN due thrombocytopenia, cirrhosis, varices. We will continue IV antibiotics and add low dose pregabalin for her pain. 05/02/25 Patient was evaluated at bedside. She is alert, awake and oriented. Her vitals are stable, except blood pressure which is 157/81. Labs showed WBC decreasing from 11.6 to 5.7, platelets from 44 to 32 and random glucose of 226. There has been marked decline in pain. We will continue IV antibiotics and she is receiving Immune globulin every 24 hr. Her Insulin dosage has been adjusted. Blood culture showed gram positive cocci in clusters, STAPHYLOCOCCUS AUREUS. Her prognosis remains guarded. Plan is to discharge her to [facility] for 6 weeks of IV antibiotics. 05/03/25 Patient was evaluated at bedside. She is alert, awake and oriented. Her vitals are stable,and her blood pressure which is 137/70. Labs showed WBC 7.8 , platelets from increasing from 32 to 44 and random glucose of 232. Her creatinine level is 1.2. There has been marked decline in pain and discomfort. We will continue IV antibiotics and she is receiving Immune globulin every 24 hr. Her last dose for Immune globulin is today. Her Insulin dosage has been adjusted. Blood culture showed gram positive cocci. Her prognosis remains guarded. She is on IV vancomycin. Plan is to discharge her to [facility] for 6 weeks of IV antibiotics. 05/04/25: The patient was evaluated at the bedside today. She had just finished showering and reported new-onset slurred speech, facial weakness and word- finding difficulty. She reports no weakness in the extremities. Blood cultures remain positive for gram-positive cocci, specifically MRSA. She is continuing on vancomycin, and gentamicin was initiated yesterday per Infectious Disease recommendations. She has completed a total of three IV IgG infusions. Platelet count is currently 31,000, decreased from 41,000 yesterday. Additionally, the patient has developed a groin rash with associated itching. Physical therapy noted that she was unable to ambulate today and experienced significant difficulty with mobility. We will continue to closely monitor her neurological status, platelet counts, and overall clinical response. Repeat blood cultures will be obtained at an appropriate interval following the initiation of gentamicin, per Infectious Disease guidance. Further assessment and management plan are outlined below. 05/05/25 The patient was evaluated at the bedside today. Her vitals are stable and comm unicated well. She complaints of pain in the neck and shoulder. She reports no weakness in the extremities. Blood cultures remain positive for gram-positive cocci, specifically MRSA. She is continuing on vancomycin, and gentamicin per Infectious Disease recommendations. Repeat blood cultures will be obtained at an appropriate interval following the initiation of gentamicin. She has completed a total of three IV IgG infusions. Platelet count is currently decreased [place] 31,000 [place] [address]. Her WBC is 6.8 and Hgb is 8.6. Her insulin medications has been adjusted by the endocrinology team. Additionally, the patient's groin rash with associated itching has been improving. She has been prescribed for Venlafaxine for management of depression and anxiety. Also Case management updated that they are in communication with [facility], Insurance approval is still pending; no authorization has been granted as of this time. Further assessment and management plan are outlined below. 05/06/25 The patient was evaluated at the bedside today. Her vitals are stable and communicated well. Her pain is gradually decreasing. She reports no weakness in the extremities. Blood cultures remain positive for gram-positive cocci, specifically MRSA. Blood culture has been sent today after 3 days of gentamicin. She is continuing on vancomycin, and gentamicin per Infectious Disease recommendations. . She has completed a total of three IV IgG infusions. Platelet count is currently decreased [place] 31,[address] Lorenzo, she has been planned for the transfusion of platelets today. Her WBC is 5.1, Hgb is 8.9, CRP 61.50 and whole blood glucose 233. In addition,PT is 17.2, INR 1.71, APTT 36.3 and Fibrinogen 119. Also, the Liver enzymes are elevated with total bilirubin of 1.6, AST 166, ALT 136 and ALP 358. Her Vancomycin trough level has increased from 5.0 to 18.1. Her insulin medications has been adjusted by the endocrinology team. Additionally, the patient's groin rash has been improving. As per Nephrology, the patient's renal function has actually greatly improved &the patient is being seen by case management in regards to placement at the [facility]. We will continue to follow the patient closely. 05/07/25 The patient was evaluated at the bedside today. Her vitals are stable and communicated well. Her pain has reduced significantly. Preliminary Blood cultures showed positive for gram-positive cocci which was done yesterday after 3 days of gentamicin. PICC line has been removed as per ID recommendation. [place] [address] today. Fecal occult blood test is positive. She received platelets transfusion yesterday. Her WBC is trending downwards from 5.1 to 3.0, Hgb is 8.4, and whole blood glucose 245. In addition, PT is 17.2, INR 1.71, APTT 36.3 and Fibrinogen 119. Her D-dimer is 7184. She has been planed today for bilateral US venous Doppler,V/Q scan and CTPA. Her Liver enzymes revealed total bilirubin of 1.9, AST 120, ALT 125 and ALP 371. Her Vancomycin trough level has decreased from 18.1 to 0.2. Her insulin medications has been followed by the endocrinology team. As per Dr Lorenzo, the patient can be transferred to [facility] as soon as accepted and he is trying to get her Promacta, medicine that raises the platelets,once its available. The WBC-tagged scan has been deferred and rescheduled for tomorrow to avoid excessive radiation exposure since patient was initially planned for V/Q scan today. 05/08/25 The patient was evaluated at the bedside today. Her vitals are stable and communicated well. She complained of hyperventilation in the night. Platelet count [id number] today. Her WBC is 5.6, Hgb is 9.1, and whole blood glucose is 314 . In addition, PT is 16, INR 1.58, APTT 35 and Fibrinogen 122. Her D-dimer is 6586. Her V/Q scan wasn't completed because she couldn't lie flat. The US venous doppler (B/L) was done which revealed no deep venous thrombosis evident in the bilateral lower extremity and No superficial thrombophlebitis in the bilateral lower extremity. Her Liver enzymes revealed total bilirubin of 1.9, AST 102, ALT 124 and ALP 391. Her Gentamicin peak and trough level is 0.2 and 0.3 respectively. Her insulin medications has been followed by the endocrinology team. We are awaiting for WBC tagged scan report. 05/09/25 The patient was evaluated at the bedside today. Her vitals are stable and communicated well. She complained of right lower [place] [address] today. Her WBC is 6.2, Hgb is 8.7, and random blood glucose is 236. Blood culture is positive for gram positive cocci. According to ID recommendation, Patient is started on Daptomycin and Ceftaroline. As per Dr Lorenzo, he is trying to get the promacta. Her Liver enzymes revealed total bilirubin of 1.8, AST 128, ALT 139 and ALP 410. Her creatinine is 1.2 and BUN is 41. Participation with physical therapy has been improving. We will continue to monitor patient. 05/10/25 The patient was evaluated at the bedside today. Her vitals are stable and communicated well. [place] [address] [place] [address]. Her WBCs trending downwards from 6.2 to 4.7, RBC 3.34, hemoglobin 8.8. Blood culture is positive for gram positive cocci. According to ID recommendation, Patient is on Day 2 of Daptomycin and Ceftaroline. Blood cultures will be sent on Monday. She did her 1st cycle of WBC tagged scan test. It will be done on 48 hours and then 72 hours. After that we will have the conclusive findings if anything is present. Her creatinine is trending upwards from 1.2 to 1.5 and blood urea nitrogen is 39. Her CRP is 47.80. Her creatinine is 1.2 and BUN is 41. Participation with physical therapy has been improving. As per the recommendation of Endocrinology she is getting Lantus 30 units daily and Humalog 10 units t.i.d. before beats patient's glucose are improving. Today's random blood glucose was 182. We will continue to monitor the patient. 05/11/25 The patient was evaluated at the bedside today. She complained of right upper quadrant pain. She is stable hemodynamically. Platelet [place] 95[address]. Her WBCs trending up from 4.7 to 6.8, hemoglobin 8.1. Blood culture is positive for gram positive cocci. According to ID recommendation, Patient is on Day 2 of Daptomycin and Ceftaroline. Blood cultures will be sent on Monday. She did her 1st cycle of WBC tagged scan test. Next cycle will be done today and tomorrow.. After that we will have the conclusive findings if anything is present. Her creatinine is trending upwards from 1.2< 1.5<1.8 and blood urea nitrogen is 41. LFT trending up, bilirubin 2.1, AST 153, ALT 154, ALP 443. Her CRP is 47.80. Participation with physical therapy has been improving. As per the recommendation of Endocrinology she is getting Lantus 40 units daily and Humalog 10 units t.i.d with sliding scale insulin.. Today's random blood glucose was 210. We will continue to monitor the patient. Hematology, ID and nephrology on the board. Plan as discussed below REVIEW OF SYSTEMS CONSTITUTIONAL: No fever, chills, or night sweats. NEUROLOGICAL: Denies headache, sensory and motor deficit. CARDIOVASCULAR: Denies any exertional angina, dyspnea on exertion, orthopnea, paroxysmal nocturnal dyspnea, palpitations. PULMONARY: Complained of hyperventilation in the night,Denies any shortness of breath, cough, phlegm/sputum, hemoptysis, pleuritic chest pain. GASTROINTESTINAL: Denies nausea, vomiting. Denies pain, tenderness around the abdomen. GENITOURINARY: Denies frequency, urgency, nocturia, hematuria or incontinence. PHYSICAL EXAM GENERAL APPEARANCE: The patient is alert, awake and oriented and bedbound NEUROLOGICAL: No sensory and motor deficits. CHEST: Normal chest expansion. LUNGS: Absence of any rales, rhonchi or any wheezing. CARDIOVASCULAR: Regular. S1 and S2 normal. No appreciable rubs, murmurs or gallops. ABDOMEN: Soft nontender, and nondistended. There is no rebound, voluntary guarding, or rigidity. GENITOURINARY: S/P day 8, Nephrostomy tube on the right side Vital Signs (last 8hr) Date Time Temp Pulse Resp B/P (MAP) Pulse Ox O2 Delivery O2 Flow Rate FiO2 05/11/25 17:26 98.4 68 18 122/64 99 Room Air 05/11/25 12:00 98.1 66 18 120/60 98 Room Air 05/11/25 09:51 98.2 63 18 121/58 95 Room Air LABS: Laboratory: Test 05/11/25 15:51 05/11/25 04:41 05/10/25 08:24 05/10/25 06:04 Range/Units Whole Blood Glucose 179 H 70-110 MG/DL White Blood Count 6.8 # 4.8-10.8 K/uL Red Blood Count 3.02 L 4.00-5.50 MIL/uL Hemoglobin 8.1 L 12.0-16.0 g/dL Hematocrit 25.1 L 36-48 % Mean Corpuscular Volume 83.1 79-99 fL Mean Corpuscular Hemoglobin 26.8 L 27.0-33.0 pg Mean Corpuscular Hemoglobin Concent 32.3 32.0-36.0 g/dL Red Cell Distribution Width 24.8 H 11.0-15.5 % Platelet Count 18 #L 130-400 K/uL Mean Platelet Volume 7.5-10.5 fL Segmented Neutrophils % 96 H 40-70 % Lymphocytes % (Manual) 2 L 22-44 % Monocytes % (Manual) 2 2-9 % Nucleated Red Blood Cells 0.0 0.0-0.19 % Differential Comment MANUAL DIFFERENTIAL White Cell Morphology Comment Platelet Morphology Comment MARKED DECREASE Red Blood Cell Morphology See comments Prothrombin Time 16.9 H 9.6-11.6 SEC Prothromb Time International Ratio 1.68 H 0.85-1.15 Activated Partial Thromboplast Time 43.3 H 26.3-35.5 SEC Fibrinogen 102 L 180-350 mg/dL D-Dimer Quantitative (PE/DVT) 8007 *H 0-500 ng/mL Sodium Level 131 L 136-145 mmol/L Potassium Level 4.5 3.5-5.1 mmol/L Chloride Level 101 101-111 mmol/L Carbon Dioxide Level 22 21-32 mmol/L Blood Urea Nitrogen 41 H 7-18 mg/dL Creatinine 1.8 H 0.5-1.0 mg/dL Glomerular Filtration Rate Calc 33 >90 mL/min Random Glucose 244 H 70-105 mg/dL Total Calcium 8.2 L 8.5-10.1 mg/dL Phosphorus Level 3.7 2.5-4.9 mg/dL Magnesium Level 1.80 1.80-2.40 mg/dL Total Bilirubin 2.1 H 0.2-1.0 mg/dL Aspartate Amino Transf (AST/SGOT) 153 H 10-37 U/L Alanine Aminotransferase (ALT/SGPT) 154 H 12-78 U/L Alkaline Phosphatase 443 H 50-136 U/L Total Protein 7.1 6.0-8.3 g/dL Albumin 1.3 L 3.5-5.0 g/dL Erythrocyte Sedimentation Rate 48 H 0-30 MM/HR Immature Granulocyte % (Auto) 0.8 0-1 % Neutrophils (%) (Auto) 78.4 H 40.0-77.0 % Lymphocytes (%) (Auto) 9.9 L 21.0-51.0 % Monocytes (%) (Auto) 10.1 3.0-13.0 % Eosinophils (%) (Auto) 0.6 0.0-8.0 % Basophils (%) (Auto) 0.2 0.0-5.0 % Neutrophils # (Auto) 3.7 1.8-7.7 K/uL Lymphocytes # (Auto) 0.5 L 1.0-4.8 K/uL Monocytes # (Auto) 0.5 0.1-1.0 K/uL Eosinophils # (Auto) 0.03 0.00-0.70 K/uL Basophils # (Auto) 0.01 0.00-0.20 K/uL Absolute Immature Granulocyte (auto 0.04 0-1 K/uL C-Reactive Protein, Quantitative 47.80 H 0.5-3.0 mg/L Current Medications Medications (Trade) Dose Ordered Sig/Roberth Route PRN Reason Start Time Stop Time Status Last Admin Dose Admin Acetaminophen (TYLenol 325MG TAB) 650 mg Q4H PRN PO MILD PAIN (1-3) 04/22/25 20:00 05/22/25 19:59 05/11/25 05:35 650 MG Acetaminophen (TYLenol 325MG TAB) 650 mg Q6H PRN PO TEMPERATURE GREATER THAN 101.5 04/22/25 20:00 05/22/25 19:59 04/23/25 10:02 650 MG Acetaminophen/ Hydrocodone Bitart (NORco 5/325MG) 1 tab Q4H PRN PO MODERATE PAIN (4-6) 04/30/25 12:00 05/05/25 11:59 DC 04/30/25 22:07 1 TAB Atorvastatin Calcium (LIPItor 20MG) 20 mg HS PO 04/24/25 21:00 05/24/25 20:59 05/10/25 21:45 20 MG Ceftaroline Fosamil 400 mg/ Sodium Chloride 250 ml @ 250 mls/hr Q12H IV 05/09/25 17:00 05/19/25 16:59 05/11/25 16:23 250 MLS/HR Ceftriaxone Sodium 1 gm/ Sodium Chloride 50 ml @ 100 mls/hr BID IV 04/22/25 21:00 04/22/25 19:59 DC Ceftriaxone Sodium (ROCEphine 1G INJ) 1 gm BID IVPB 04/22/25 21:00 04/22/25 20:44 DC Ceftriaxone Sodium (ROCEphine 1G INJ) 1 gm BID IVPB 04/23/25 09:00 04/25/25 12:36 DC 04/25/25 09:44 1 GM Daptomycin 1000 mg/Sodium Chloride 100 ml @ 200 mls/hr Q24H IV 05/09/25 15:00 05/19/25 14:59 05/11/25 16:20 200 MLS/HR Dexamethasone Sodium Phosphate (dexaMETHasone 4MG/ML 1ML VIAL) 20 mg ONCALL IV 05/01/25 15:30 05/03/25 15:31 DC 05/02/25 15:41 20 MG Dexamethasone Sodium Phosphate (dexaMETHasone 4MG/ML 1ML VIAL) 20 mg ONCALL IV 05/03/25 17:15 05/03/25 17:16 DC 05/03/25 17:23 20 MG Dexamethasone Sodium Phosphate (dexaMETHasone 4MG/ML 1ML VIAL) 20 mg ONCE PRN IV PRE-MED 05/01/25 15:00 05/01/25 15:05 DC Dexmedetomidine/ Sodium Chloride (PRECEdex 200MCG/ 50ML-NS) 200 mcg PROTOCOL IV 04/26/25 12:00 04/26/25 14:54 DC Dexmedetomidine/ Sodium Chloride (PRECEdex 400MCG/ 100ML-NS) 400 mcg PROTOCOL PRN IV ANXIETY/AGITATION 04/26/25 19:30 05/01/25 12:45 DC 04/27/25 23:31 400 MCG Dexmedetomidine/ Sodium Chloride (PRECEdex 400MCG/ 100ML-NS) 400 mcg PROTOCOL STAT IV 04/26/25 14:53 04/26/25 14:58 DC 04/26/25 15:18 400 MCG Dextrose 1,000 ml @ 75 mls/hr [id number] IV 04/26/25 12:00 04/30/25 09:36 DC 04/29/25 04:27 150 MLS/HR Dextrose (D50w) 50 ml AD PRN IV HYPOGLYCEMIA PROTOCOL 04/22/25 20:00 05/22/25 19:59 Diphenhydramine HCl (BENAdryl INJ) 25 mg ONCALL IVP 05/01/25 15:30 05/03/25 15:31 DC 05/02/25 15:41 25 MG Diphenhydramine HCl (BENAdryl INJ) 25 mg ONCALL IVP 05/03/25 17:15 05/03/25 17:16 DC 05/03/25 17:22 25 MG Diphenhydramine HCl (BENAdryl INJ) 25 mg ONCE PRN IVP PRE-MED 05/01/25 15:00 05/01/25 15:06 DC Famotidine (Pepcid 20mg Tab) 20 mg DAILY PO 04/23/25 09:00 04/24/25 09:48 DC 04/23/25 09:33 20 MG Gabapentin (NEURontin 300 MG CAP) 300 mg BID PO 04/24/25 21:00 04/28/25 09:10 DC 04/25/25 21:51 300 MG Gentamicin Sulfate/Sodium Chloride 100 ml @ 200 mls/hr Q12H IV 05/09/25 02:00 05/09/25 13:30 DC 05/09/25 01:36 200 MLS/HR Gentamicin Sulfate/Sodium Chloride 100 ml @ 200 mls/hr Q24H IV 05/03/25 14:00 05/08/25 21:01 DC 05/08/25 14:18 200 MLS/HR Glucagon (Glucagon 1mg Kit) 1 mg AD PRN IM HYPOGLYCEMIA PROTOCOL 04/22/25 20:00 05/22/25 19:59 Heparin Sodium (Porcine) (HEParin 5,000 UNIT VIAL) 5,000 unit Q8H SQ 04/25/25 09:00 04/25/25 08:40 DC Hydromorphone HCl (DiLAUDid 0.5MG INJ) 0.5 mg BIDPRN PRN IVP SEVERE PAIN (7-10) 04/25/25 19:00 04/30/25 11:59 DC 04/29/25 23:31 0.5 MG Hydromorphone HCl (DiLAUDid 0.5MG INJ) 0.5 mg Q6H PRN IVP SEVERE PAIN (7-10) 04/23/25 14:00 04/25/25 08:25 DC 04/25/25 04:14 0.5 MG Hydromorphone HCl (DiLAUDid 1MG INJ) 1 mg TID PRN IVP SEVERE PAIN (7-10) 05/01/25 19:00 05/05/25 12:59 DC Hydromorphone HCl (DiLAUDid 1MG INJ) 1 mg TIDP PRN IVP SEVERE PAIN (7-10) 04/30/25 13:00 05/01/25 18:46 DC 04/30/25 20:44 1 MG Immune Globulin 400 ml @ 0 mls/hr Q24H IV 05/01/25 14:00 05/02/25 12:38 DC 05/01/25 16:18 37.5 MLS/HR Immune Globulin 400 ml @ 0 mls/hr Q24H IV 05/02/25 16:00 05/03/25 16:01 DC 05/02/25 16:46 37.5 MLS/HR Immune Globulin 400 ml @ 0 mls/hr Q24H IV 05/03/25 17:15 05/03/25 17:16 DC 05/03/25 17:57 37.5 MLS/HR Insulin Glargine (LANtus 100 UNITS/ML 10 ML VIAL) 10 units HS SQ 04/24/25 21:00 04/24/25 16:57 DC Insulin Glargine (LANtus 100 UNITS/ML 10 ML VIAL) 10 units ONCE STAT SQ 04/24/25 10:54 04/24/25 11:00 DC 04/24/25 11:19 10 UNITS Insulin Glargine (LANtus 100 UNITS/ML 10 ML VIAL) 15 units HS SQ 04/24/25 21:00 04/24/25 17:06 DC Insulin Glargine (LANtus 100 UNITS/ML 10 ML VIAL) 30 units DAILY SQ 05/05/25 09:00 05/07/25 23:47 DC 05/07/25 08:12 30 UNITS Insulin Glargine (LANtus 100 UNITS/ML 10 ML VIAL) 30 units ONCE SQ 04/24/25 17:00 04/25/25 06:19 DC 04/24/25 18:16 30 UNITS Insulin Glargine (LANtus 100 UNITS/ML 10 ML VIAL) 40 units DAILY SQ 05/08/25 09:00 06/07/25 08:59 05/11/25 08:45 40 UNITS Insulin Glargine (LANtus 100 UNITS/ML 10 ML VIAL) 40 units DAILY SQ 04/29/25 09:00 04/30/25 07:31 DC Insulin Glargine (LANtus 100 UNITS/ML 10 ML VIAL) 50 units DAILY SQ 04/26/25 09:00 04/29/25 06:49 DC 04/28/25 08:46 50 UNITS Insulin Glargine (LANtus 100 UNITS/ML 10 ML VIAL) 50 units DAILY SQ 04/30/25 09:00 05/05/25 07:21 DC 05/04/25 09:30 50 UNITS Insulin Human Regular (humuLIN R 100 UNIT/ML 3ML) 5 unit TIDAC SQ 04/24/25 17:00 04/24/25 17:06 DC Insulin Human Regular (humuLIN R 100 UNIT/ML 3ML) 8 unit TIDAC SQ 04/28/25 07:30 04/30/25 07:31 DC 04/30/25 06:15 8 UNIT Insulin Human Regular (humuLIN R 100 UNIT/ML 3ML) 10 unit TIDAC SQ 05/06/25 07:30 05/07/25 23:47 DC 05/07/25 16:06 10 UNIT Insulin Human Regular (humuLIN R 100 UNIT/ML 3ML) 10 unit TIDAC SQ 05/10/25 11:30 06/09/25 11:29 05/11/25 12:10 10 UNIT Insulin Human Regular (humuLIN R 100 UNIT/ML 3ML) 10 unit TIDAC SQ 04/24/25 17:00 04/25/25 06:17 DC 04/25/25 06:15 10 UNIT Insulin Human Regular (humuLIN R 100 UNIT/ML 3ML) 12 unit TIDAC SQ 05/05/25 07:30 05/05/25 22:51 DC Insulin Human Regular (humuLIN R 100 UNIT/ML 3ML) 12 unit TIDAC SQ 04/30/25 07:30 05/02/25 08:05 DC 05/02/25 06:45 12 UNIT Insulin Human Regular (humuLIN R 100 UNIT/ML 3ML) 15 unit TIDAC SQ 05/02/25 11:30 05/05/25 07:21 DC 05/04/25 17:33 15 UNIT Insulin Human Regular (humuLIN R 100 UNIT/ML 3ML) 15 unit TIDAC SQ 05/08/25 07:30 05/09/25 06:24 DC 05/08/25 17:16 15 UNIT Insulin Human Regular (humuLIN R 100 UNIT/ML 3ML) 15 unit TIDAC SQ 04/26/25 11:30 04/27/25 20:30 DC Insulin Human Regular (humuLIN R 100 UNIT/ML 3ML) 18 unit TIDAC SQ 05/09/25 07:30 05/10/25 09:56 DC 05/09/25 06:49 18 UNIT Insulin Human Regular (humuLIN R 100 UNIT/ML 3ML) 25 unit TIDAC SQ 04/25/25 07:30 04/26/25 07:58 DC 04/25/25 17:39 25 UNIT Insulin Human Regular (humuLIN R 100 UNIT/ML 3ML) INSULIN SLIDING SCAL... ACHS SQ 04/22/25 21:00 04/24/25 16:16 DC 04/24/25 11:18 8 UNIT Insulin Human Regular (humuLIN R 100 UNIT/ML 3ML) INSULIN SLIDING SCAL... ACHS SQ 05/05/25 07:30 06/04/25 07:29 05/11/25 05:46 6 UNIT Insulin Human Regular (humuLIN R 100 UNIT/ML 3ML) INSULIN SLIDING SCAL... ACHS SQ 04/24/25 16:30 04/25/25 14:09 DC 04/25/25 11:57 16 UNIT Insulin Human Regular (humuLIN R 100 UNIT/ML 3ML) INSULIN SLIDING SCAL... ACHS SQ 04/25/25 16:30 05/04/25 23:42 DC 05/04/25 20:49 6 UNIT Insulin Human Regular (humuLIN R 100 UNIT/ML 3ML) INSULIN SLIDING SCAL... Q4H SQ 04/27/25 20:30 04/28/25 09:11 DC 04/28/25 06:00 4 UNIT Lactated Ringer's 1,000 ml @ 100 mls/hr Q10H IV 04/22/25 20:00 04/23/25 10:09 DC 04/23/25 06:00 100 MLS/HR Lactulose (Constulose 20gm/ 30ml Udcup) 30 gm TID PO 04/25/25 11:00 04/30/25 09:45 DC 04/30/25 09:16 30 GM Levothyroxine Sodium (SYNTHroid 125MCG TAB) 125 mcg DAILY@0630 PO 04/25/25 06:30 05/25/25 06:29 05/11/25 05:35 125 MCG Lisinopril (Prinivil 10mg) 10 mg DAILY PO 05/02/25 09:00 06/01/25 08:59 05/11/25 08:41 10 MG Magnesium Sulfate 50 ml @ 0 mls/hr PROTOCOL PRN IV OTHER [SEE ORDER COMMENTS] 04/22/25 20:00 05/22/25 19:59 Methylprednisolone Sodium Succinate (Solu-medROL 125MG) 125 mg Q6H IVP 04/23/25 08:00 04/28/25 09:10 DC 04/25/25 09:45 125 MG Metoprolol Succinate (TopROL XL) 50 mg AM PO 04/25/25 09:00 05/25/25 08:59 05/11/25 08:41 50 MG Nystatin (NystOP 15 GM POWDER) apply abdominal fold/perineum BID TP 05/09/25 21:00 06/08/25 20:59 05/11/25 08:42 1 APPL Ondansetron HCl (zoFRAN 4MG INJ) 4 mg Q6H PRN IV NAUSEA/VOMITING 04/22/25 20:00 05/22/25 19:59 04/22/25 20:10 4 MG Pantoprazole Sodium (PROTonix 40MG INJ) 40 mg DAILY IVP 04/24/25 10:00 05/11/25 08:11 DC 05/10/25 09:09 40 MG Pantoprazole Sodium (PROTonix 40MG TAB) 40 mg DAILY PO 05/11/25 09:00 06/10/25 08:59 05/11/25 08:41 40 MG Pharmacy Profile Note (Pharmacy Communication) 1 each ONCE MISC 05/01/25 08:00 04/30/25 16:52 DC Pharmacy Profile Note (Pharmacy Communication) 1 each ONCE MISC 05/03/25 12:00 05/03/25 12:58 DC Pharmacy Profile Note (Pharmacy Communication) 1 each ONCE MISC 05/09/25 13:00 05/09/25 13:42 DC Potassium Chloride 100 ml @ 100 mls/hr AD PRN IV POTASSIUM PROTOCOL 04/22/25 20:00 05/22/25 19:59 Potassium Chloride (K-Dur/Klor-Con 20meq) 20 meq AD PRN PO POTASSIUM PROTOCOL 04/22/25 20:00 05/22/25 19:59 05/03/25 13:10 20 MEQ Potassium Chloride (KCl 10% Elixir 20meq/15ml) 20 meq AD PRN PO POTASSIUM PROTOCOL 04/22/25 20:00 05/22/25 19:59 Pramipexole Dihydrochloride (miraPEX 0.25MG TAB) 0.5 mg HS PO 04/24/25 21:00 05/24/25 20:59 05/10/25 21:45 0.5 MG Pregabalin (LYRica 25MG) 25 mg BID PO 05/01/25 21:00 05/05/25 07:22 DC 05/04/25 09:22 25 MG Pregabalin (TCPxal57HP) 75 mg BID PO 04/24/25 21:00 04/24/25 14:49 DC Sodium Chloride 500 ml @ 0 mls/hr Q0M IV 04/25/25 11:00 05/25/25 10:59 Sodium Zirconium Cyclosilicate (Lokelma 10gm Powder) 10 gm TID PO 04/23/25 21:00 04/23/25 14:11 DC Tramadol HCl (UltRAM) 50 mg Q6H PRN PO MODERATE PAIN (4-6) 04/24/25 22:30 04/29/25 22:29 DC 04/28/25 13:55 50 MG Trimethoprim/ Sulfamethoxazole (BactRIM DS) 1 tab BID PO 04/25/25 21:00 04/26/25 14:50 DC 04/25/25 21:51 1 TAB Vancomycin HCl 250 ml @ 125 mls/hr Q12H IV 04/24/25 23:00 04/25/25 12:36 DC 04/25/25 11:43 125 MLS/HR Vancomycin HCl 250 ml @ 125 mls/hr Q12H IV 04/26/25 15:30 04/28/25 03:13 DC 04/27/25 15:22 125 MLS/HR Vancomycin HCl 250 ml @ 125 mls/hr Q12H IV 04/28/25 15:30 04/28/25 18:53 DC Vancomycin HCl 250 ml @ 125 mls/hr Q12H IV 04/28/25 20:00 05/02/25 20:34 DC 05/02/25 10:21 125 MLS/HR Vancomycin HCl 250 ml @ 125 mls/hr Q12H9 IV 05/04/25 21:00 05/08/25 20:49 DC 05/08/25 08:48 125 MLS/HR Vancomycin HCl (Vancomycin 750mg) 750 mg Q12H IVPB 05/08/25 21:00 05/09/25 13:30 DC 05/09/25 09:45 750 MG Vancomycin HCl (Vancomycin Protocol) 1 each AD IV 04/24/25 10:30 04/25/25 12:36 DC Vancomycin HCl (Vancomycin Protocol) 1 each AD IV 04/26/25 15:00 05/09/25 13:30 DC Venlafaxine HCl (EffEXOR XR 37.5mg CAP) 37.5 mg DAILY PO 04/24/25 16:00 05/05/25 11:18 DC 05/04/25 09:21 37.5 MG Venlafaxine HCl (EffEXOR XR 37.5mg CAP) 37.5 mg DAILY PO 04/25/25 09:00 04/24/25 14:50 DC Venlafaxine HCl (EffEXOR XR 37.5mg CAP) 37.5 mg HS PO 05/05/25 21:00 06/04/25 20:59 05/10/25 21:45 37.5 MG DIAGNOSTICS / RADIOLOGY: PATIENT: LUCÍA CATALAN MR#: [id number] : 1970 SEX: F AGE: 54 LOCATION: [facility] ORDER 1400 STATUS: ADM IN REPORT#: [id number] SERVICE [id number] REASON: Shoulder pain ORDERING PHYSICIAN: YOLANDA CHOW MD PROCEDURE: THEO RT WO - MR SHOULDER RIGHT WO CLINICAL INFORMATION Shoulder pain COMPARISON None. TECHNIQUE Multiplanar multisequence MR imaging of the right shoulder without contrast FINDINGS OSSEOUS AND ARTICULAR STRUCTURES Acromioclavicular joint: Mild degenerative changes. Glenohumeral joint: Mild cartilage thinning. Small joint effusion. Bones: No fracture or infiltrative marrow disorder. BURSAE Subacromial/subdeltoid bursa: Mild bursitis. Subcoracoid bursa: Normal. ROTATOR CUFF Supraspinatus: Tendinosis with high-grade partial-thickness bursal sided tear at the myotendinous junction. Infraspinatus: Tendinosis with low-grade partial-thickness bursal sided tear at the footplate. Subscapularis: Tendinosis without high-grade tear. Teres minor: No evidence for tear or tendinopathy. Musculature has normal bulk and signal intensity. LABRUM/CAPSULE Labrum: Diffuse mild degeneration. No acute focal tear. Glenohumeral ligaments: Intact, with mild thickening and edema of the maxillary pouch. MISCELLANEOUS Long head biceps tendon: Not well visualized, may be due to plane of imaging, prior tear or severe intra-articular tendinopathy. Rotator interval: Edema. Other: None. IMPRESSION Supraspinatus tendinosis with high-grade partial-thickness bursal sided tear at the myotendinous junction. Infraspinatus tendinosis with low-grade partial-thickness bursal sided tear at the footplate. Subscapularis tendinosis without high-grade tear. Mild acromioclavicular and glenohumeral osteoarthritis. Mild subacromial/subdeltoid bursitis. Findings which can be seen in the setting of adhesive capsulitis. 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 Suspected Endocarditis, RAMAN deferred due to bleeding risks; unable to rule out endocarditis Status post nephrostomy tube Renate intertrigo Infectious spondylodiscitis L2-L3 Sepsis, unable to determine POA Acute hypoxic hypercapnic respiratory failure, not POA, resolved AMS due to suspected steroid induced psychosis or hepatic encephalopathy, not POA, resolved Hyperammonemia due to cirrhosis, resolved Intractable low back pain due to spinal stenosis POA Acute urinary tract infection due to MRSA POA Hypervolemic hyponatremia POA Chronic anemia POA Hyponatremia POA Acute kidney injury on renal insufficiency POA Hyperglycemia due to uncontrolled diabetes POA Hypocalcemia POA Cirrhotic liver with splenomegaly consistent with portal hypertension per CT POA Esophageal varices Renal parenchymal disease per CT POA Hypothyroidism POA Hyperlipidemia POA Hypertension POA Anxiety disorder POA Depression POA Restless leg syndrome POA Suspected obstructive sleep apnea untreated POA Morbid obesity POA PLAN: Persistent MRSA bacteremia, gram positive cocci positive as of 05/08/25 Osteomyelitis of L2-L3 POA PICC line has been removed Currently receiving daptomycin (Day 2) and ceftaroline (Day 2) per Infectious Disease (ID) recommendations. WBC tagged scan done yesterday, now it needs to be done today and tomorrow MRI showed:Supraspinatus tendinosis with high-grade partial-thickness bursal sided tear at the myotendinous junction. Infraspinatus tendinosis with low-grade partial-thickness bursal sided tear at the footplate.Subscapularis tendinosis without high-grade tear.Mild acromioclavicular and glenohumeral osteoarthritis.Mild subacromial/subdeltoid bursitis.Findings which can be seen in the setting of adhesive capsulitis. Complained of right upper abdominal pain. LFT trending up with AST 153, ALT 154, ALP 443. We will get ultrasound abdomen. Maintain contact precautions for infection control. Repeat blood cultures per Infectious Disease protocol to monitor clearance of bacteremia. Patient will require a 6-week course of IV antibiotics; case management will assist with arranging appropriate placement for long-term IV therapy. Acute kidney injury Creatinine trending up from 1.2<1.5<1.8, may contrast induced We will get urine electrolytes and creatinine for FENa Consulted nephrology We will avoid nephrotoxic drugs including NSAID. Thrombocytopenia due to ITP DIC panel workup completed, PT is 16, INR 1.58, APTT 35 and Fibrinogen 122. D- dimer is 6586 as of 05/08/25 DIC panel to be sent tomorrow along with morning labs As per Dr Lorenzo, trying to get her Promacta when available (medicine that raises the platelets) V/Q scan unable to perform as she couldn't lie flat. Platelets has been transfused, but platelets is still 16K. Continue to follow Hematology recommendations for ongoing management of thrombocytopenia. Monitor platelet counts daily. Monitor for bleeding or thrombotic complications. Altered Mental Status due to Hepatic Encephalopathy or steroids induced psychosis, resolved Monitor ammonia levels, mental status, and signs of worsening encephalopathy. Monitor neuro status and reassess mental status regularly with steroid a djustments. Intractable lower back pain, resolving Per Dr. Sanchez, possible diagnosis of discitis and osteomyelitis at L2-L3 along with psoas inflammation. Continue multimodal pain management: acetaminophen, topical agents Pregabalin will be discontinued due to concern for possible medication-induced slurred speech. CT head showed no evidence of acute intracranial abnormalities. Neuro checks q4 Acute UTI, resolved Monitor for signs of urosepsis Encourage hydration and bladder care Hyponatremia, resolved Monitor serum Na closely; consider fluid restriction if dilutional. Renate intertrigo, resolved Patient is improved significantly The patient was given fluconazole 150 mg 1 dose today, gradually resolving Cirrhosis with portal hypertension Fecal occult blood test positive Liver functions improving Monitor for decompensation: encephalopathy, ascites, variceal bleeding. Consider beta sergio for variceal prophylaxis. Monitor LFTs, INR, and ammonia Her MELD- Na score is 24 points, 14-15% estimated 90 day mortality Hyperglycemia (Uncontrolled Diabetes) Lantus is 30 units daily as per endocrinology recommendations, and continue for regular insulin 15 units TIDAC before meals. Monitor blood glucose QID Educate on diet and insulin compliance; monitor for DKA if concern. Correct electrolytes accordingly. Chronic anemia H/o esophageal varices due to cirrhosis with portal hypertension Per GI, hold off on EGD given no overt GI bleeding and stable hemoglobin Monitor trends, H&H daily Avoid transfusion unless symptomatic or Hgb <7. We will order morning labs. Further orders per hospitalization course. ATTESTATION BY PHYSICIAN I have seen and examined the patient. I reviewed the documentation, medical decision making, and treatment plan as noted by the resident provider above. I agree with the findings and plan of care. Curtis Sanchez MD, SUNIL MD May 11, 2025 18:09
[2025-05-11 20:00] VITALS: O2SAT 97
[2025-05-11 20:20] VITALS: BP 117/40; PULSE 70; RESP 19; TEMP 97.5
--- NOTE | 2025-05-11 22:39 | PN ---
endocrinology progress note Date of Service: May 11, 2025 this was a late dictation, subjective: glucose are improving and off steroid now. hba1c 9.2, home regimen: lantus 30 units daily and humalog 10 units tid before meals. patient glucose are improving. s/p right nephrostomy tube, thrombocytopenia, UTI and Bacteremia PAST MEDICAL HISTORY: [undiagnosed obstructive sleep apnea, diabetes type 2, hypertension, hyperlipidemia, hypothyroidism, restless leg syndrome, anxiety disorder,depression, lupus and severe morbid obesity ] PAST SURGICAL HISTORY: [ Cholecystectomy, tubal ligation] PAST SOCIAL HISTORY: [ Patient lives with . Patient denies alcohol tobacco and recreational drug use] FAMILY HISTORY: [ Hypertension, diabetes, cardiovascular disease and Alzheimer's disease ] Coded Allergies: No Known Allergies (Unverified Allergy, Unknown, 08/26/14) ASSESSMENT: glucose are improving and off steroid now. hba1c 9.2, home regimen: lantus 30 units daily and humalog 10 units tid before meals. Intractable low back pain POA L2/L3 OSTEOMYELITIS Acute thrombocytopenia POA IVIG Acute urinary tract infection POA On antibiotics. Bacteremia, MRSA on antibiotics. right kidney hydronephrosis s/p right nephrostomy tube Chronic anemia POA Hyponatremia POA Acute kidney injury on renal insufficiency POA improving Hypocalcemia POA stable Cirrhotic liver with splenomegaly consistent with portal hypertension per CT POA Renal parenchymal disease per CT POA Hypothyroidism POA ON LEVOTHYROXINE Hyperlipidemia POA Hypertension POA Anxiety disorder POA Depression POA Restless leg syndrome POA Suspected obstructive sleep apnea untreated POA Morbid obesity POA PLAN: continue lantus 40 units daily continue regular insulin 10 units qac before meals continue medium dose ssi monitor glucose qx6 hourly continue levothyroxine 125 mcg daily. Vitals/Labs Vital Signs Date Time Temp Pulse Resp B/P (MAP) Pulse Ox O2 Delivery O2 Flow Rate FiO2 05/11/25 20:20 97.5 70 19 117/40 97 Room Air 05/11/25 08:20 0 21 Laboratory Tests 05/11/25 04:41 Medications Current Medications Sodium Chloride 1,000 ml @ 0 mls/hr ONCE ONCE IV Last administered on 04/22/25at 17:27; Start 04/22/25 at 17:00; Stop 04/22/25 at 17:01; Status DC Ceftriaxone Sodium 1 gm ONCE ONCE IVPB Last administered on 04/22/25at 19:43; Start 04/22/25 at 19:00; Stop 04/22/25 at 19:01; Status DC Acetaminophen 650 mg Q6H PRN PO Last administered on 04/23/25at 10:02; Start 04/22/25 at 20:00; Stop 05/22/25 at 19:59 Acetaminophen 650 mg Q4H PRN PO Last administered on 05/11/25at 21:31; Start 04/22/25 at 20:00; Stop 05/22/25 at 19:59 Ondansetron HCl 4 mg Q6H PRN IV Last administered on 04/22/25at 20:10; Start 04/22/25 at 20:00; Stop 05/22/25 at 19:59 Famotidine 20 mg DAILY PO Last administered on 04/23/25at 09:33; Start 04/23/25 at 09:00; Stop 04/24/25 at 09:48; Status DC Ceftriaxone Sodium 1 gm/ Sodium Chloride 50 ml @ 100 mls/hr BID IV; Start 04/22/25 at 21:00; Stop 04/22/25 at 19:59; Status DC Lactated Ringer's 1,000 ml @ 100 mls/hr Q10H IV Last administered on 04/23/25at 06:00; Start 04/22/25 at 20:00; Stop 04/23/25 at 10:09; Status DC Insulin Human Regular INSULIN SLIDING SCAL... ACHS SQ Last administered on 04/24/25at 11:18; Start 04/22/25 at 21:00; Stop 04/24/25 at 16:16; Status DC Dextrose 50 ml AD PRN IV; Start 04/22/25 at 20:00; Stop 05/22/25 at 19:59 Glucagon 1 mg AD PRN IM; Start 04/22/25 at 20:00; Stop 05/22/25 at 19:59 Magnesium Sulfate 50 ml @ 0 mls/hr PROTOCOL PRN IV; Start 04/22/25 at 20:00; Stop 05/22/25 at 19:59 Potassium Chloride 100 ml @ 100 mls/hr AD PRN IV; Start 04/22/25 at 20:00; Stop 05/22/25 at 19:59 Potassium Chloride 20 meq AD PRN PO; Start 04/22/25 at 20:00; Stop 05/22/25 at 19:59 Potassium Chloride 20 meq AD PRN PO Last administered on 05/03/25at 13:10; Start 04/22/25 at 20:00; Stop 05/22/25 at 19:59 Ceftriaxone Sodium 1 gm BID IVPB; Start 04/22/25 at 21:00; Stop 04/22/25 at 20:44; Status DC Morphine Sulfate 4 mg ONCE ONCE IVP Last administered on 04/22/25at 20:11; Start 04/22/25 at 20:30; Stop 04/22/25 at 20:31; Status DC Lidocaine 1 each ONCE ONCE TP Last administered on 04/22/25at 21:14; Start 04/22/25 at 21:00; Stop 04/22/25 at 21:01; Status DC Ceftriaxone Sodium 1 gm BID IVPB Last administered on 04/25/25at 09:44; Start 04/23/25 at 09:00; Stop 04/25/25 at 12:36; Status DC Methylprednisolone Sodium Succinate 125 mg Q6H IVP Last administered on 04/25/25at 09:45; Start 04/23/25 at 08:00; Stop 04/28/25 at 09:10; Status DC Albuterol Sulfate 1.25 ONCE ONCE IH Last administered on 04/23/25at 09:40; Start 04/23/25 at 09:30; Stop 04/23/25 at 09:31; Status DC Calcium Gluconate 1 gm ONCE ONCE IV Last administered on 04/23/25at 10:55; Start 04/23/25 at 10:30; Stop 04/23/25 at 10:31; Status DC Sodium Chloride 50 ml @ 0 mls/hr ONCE ONCE IV Last administered on 04/23/25at 11:00; Start 04/23/25 at 11:00; Stop 04/23/25 at 11:01; Status DC Sodium Zirconium Cyclosilicate 10 gm ONCE ONCE PO Last administered on 04/23/25at 14:14; Start 04/23/25 at 14:00; Stop 04/23/25 at 16:08; Status DC Hydromorphone HCl 0.5 mg Q6H PRN IVP Last administered on 04/25/25at 04:14; Start 04/23/25 at 14:00; Stop 04/25/25 at 08:25; Status DC Sodium Zirconium Cyclosilicate 10 gm TID PO; Start 04/23/25 at 21:00; Stop 04/23/25 at 14:11; Status DC Pantoprazole Sodium 40 mg DAILY IVP Last administered on 05/10/25at 09:09; Start 04/24/25 at 10:00; Stop 05/11/25 at 08:11; Status DC Pregabalin 75 mg BID PO; Start 04/24/25 at 21:00; Stop 04/24/25 at 14:49; Status DC Vancomycin HCl 1 each AD IV; Start 04/24/25 at 10:30; Stop 04/25/25 at 12:36; Status DC Vancomycin HCl 500 ml @ 250 mls/hr ONCE ONCE IV Last administered on 04/24/25at 12:46; Start 04/24/25 at 11:00; Stop 04/24/25 at 12:59; Status DC Vancomycin HCl 250 ml @ 125 mls/hr Q12H IV Last administered on 04/25/25at 11:43; Start 04/24/25 at 23:00; Stop 04/25/25 at 12:36; Status DC Insulin Glargine 10 units HS SQ; Start 04/24/25 at 21:00; Stop 04/24/25 at 16:57; Status DC Insulin Glargine 10 units ONCE STAT SQ Last administered on 04/24/25at 11:19; Start 04/24/25 at 10:54; Stop 04/24/25 at 11:00; Status DC Atorvastatin Calcium 20 mg HS PO Last administered on 05/11/25at 21:31; Start 04/24/25 at 21:00; Stop 05/24/25 at 20:59 Gabapentin 300 mg BID PO Last administered on 04/25/25at 21:51; Start 04/24/25 at 21:00; Stop 04/28/25 at 09:10; Status DC Levothyroxine Sodium 125 mcg DAILY@0630 PO Last administered on 05/11/25at 05:35; Start 04/25/25 at 06:30; Stop 05/25/25 at 06:29 Metoprolol Succinate 50 mg AM PO Last administered on 05/11/25at 08:41; Start 04/25/25 at 09:00; Stop 05/25/25 at 08:59 Venlafaxine HCl 37.5 mg DAILY PO; Start 04/25/25 at 09:00; Stop 04/24/25 at 14:50; Status DC Pramipexole Dihydrochloride 0.5 mg HS PO Last administered on 05/11/25at 21:30; Start 04/24/25 at 21:00; Stop 05/24/25 at 20:59 Venlafaxine HCl 37.5 mg DAILY PO Last administered on 05/04/25at 09:21; Start 04/24/25 at 16:00; Stop 05/05/25 at 11:18; Status DC Insulin Human Regular INSULIN SLIDING SCAL... ACHS SQ Last administered on 04/25/25at 11:57; Start 04/24/25 at 16:30; Stop 04/25/25 at 14:09; Status DC Insulin Glargine 15 units HS SQ; Start 04/24/25 at 21:00; Stop 04/24/25 at 17:06; Status DC Insulin Human Regular 5 unit TIDAC SQ; Start 04/24/25 at 17:00; Stop 04/24/25 at 17:06; Status DC Insulin Glargine 30 units ONCE SQ Last administered on 04/24/25at 18:16; Start 04/24/25 at 17:00; Stop 04/25/25 at 06:19; Status DC Insulin Human Regular 10 unit TIDAC SQ Last administered on 04/25/25at 06:15; Start 04/24/25 at 17:00; Stop 04/25/25 at 06:17; Status DC Tramadol HCl 50 mg Q6H PRN PO Last administered on 04/28/25at 13:55; Start 04/24/25 at 22:30; Stop 04/29/25 at 22:29; Status DC Insulin Human Regular 25 unit TIDAC SQ Last administered on 04/25/25at 17:39; Start 04/25/25 at 07:30; Stop 04/26/25 at 07:58; Status DC Insulin Glargine 70 units ONCE ONCE SQ Last administered on 04/25/25at 06:27; Start 04/25/25 at 06:30; Stop 04/25/25 at 06:31; Status DC Hydromorphone HCl 0.5 mg BIDPRN PRN IVP Last administered on 04/29/25at 23:31; Start 04/25/25 at 19:00; Stop 04/30/25 at 11:59; Status DC Heparin Sodium (Porcine) 5,000 unit Q8H SQ; Start 04/25/25 at 09:00; Stop 04/25/25 at 08:40; Status DC Lactulose 30 gm TID PO Last administered on 04/30/25at 09:16; Start 04/25/25 at 11:00; Stop 04/30/25 at 09:45; Status DC Sodium Chloride 500 ml @ 0 mls/hr Q0M IV; Start 04/25/25 at 11:00; Stop 05/25/25 at 10:59 Trimethoprim/ Sulfamethoxazole 1 tab BID PO Last administered on 04/25/25at 21:51; Start 04/25/25 at 21:00; Stop 04/26/25 at 14:50; Status DC Insulin Human Regular INSULIN SLIDING SCAL... ACHS SQ Last administered on 05/04/25at 20:49; Start 04/25/25 at 16:30; Stop 05/04/25 at 23:42; Status DC Diazepam 10 mg ONCE ONCE IM; Start 04/25/25 at 15:00; Stop 04/25/25 at 15:01; Status DC Lactulose 200 gm ONCE ONCE MS Last administered on 04/25/25at 17:30; Start 04/25/25 at 16:30; Stop 04/25/25 at 16:31; Status DC Lorazepam 0.5 mg ONCE ONCE PO Last administered on 04/25/25at 19:07; Start 04/25/25 at 19:00; Stop 04/25/25 at 19:01; Status DC Haloperidol Lactate 1 mg ONCE ONCE IM Last administered on 04/26/25at 05:17; Start 04/26/25 at 05:00; Stop 04/26/25 at 05:02; Status DC Insulin Human Regular 15 unit TIDAC SQ; Start 04/26/25 at 11:30; Stop 04/27/25 at 20:30; Status DC Insulin Glargine 50 units DAILY SQ Last administered on 04/28/25at 08:46; Start 04/26/25 at 09:00; Stop 04/29/25 at 06:49; Status DC Dextrose 1,000 ml @ 75 mls/hr [id number] IV Last administered on 04/29/25at 04:27; Start 04/26/25 at 12:00; Stop 04/30/25 at 09:36; Status DC Dexmedetomidine/ Sodium Chloride 200 mcg PROTOCOL IV; Start 04/26/25 at 12:00; Stop 04/26/25 at 14:54; Status DC Dexmedetomidine/ Sodium Chloride 400 mcg STK-MED ONCE IV; Start 04/26/25 at 14:49; Stop 04/26/25 at 14:50; Status DC Vancomycin HCl 1 each AD IV; Start 04/26/25 at 15:00; Stop 05/09/25 at 13:30; Status DC Dexmedetomidine/ Sodium Chloride 400 mcg PROTOCOL STAT IV Last administered on 04/26/25at 15:18; Start 04/26/25 at 14:53; Stop 04/26/25 at 14:58; Status DC Vancomycin HCl 250 ml @ 125 mls/hr Q12H IV Last administered on 04/27/25at 15:22; Start 04/26/25 at 15:30; Stop 04/28/25 at 03:13; Status DC Dexmedetomidine/ Sodium Chloride 400 mcg PROTOCOL PRN IV Last administered on 04/27/25at 23:31; Start 04/26/25 at 19:30; Stop 05/01/25 at 12:45; Status DC Dexmedetomidine/ Sodium Chloride 400 mcg STK-MED ONCE IV Last administered on 04/26/25at 19:14; Start 04/26/25 at 19:10; Stop 04/26/25 at 19:11; Status DC Insulin Human Regular INSULIN SLIDING SCAL... Q4H SQ Last administered on 04/28/25at 06:00; Start 04/27/25 at 20:30; Stop 04/28/25 at 09:11; Status DC Vancomycin HCl 250 ml @ 125 mls/hr Q12H IV; Start 04/28/25 at 15:30; Stop 04/28/25 at 18:53; Status DC Insulin Human Regular 8 unit TIDAC SQ Last administered on 04/30/25at 06:15; Start 04/28/25 at 07:30; Stop 04/30/25 at 07:31; Status DC Vancomycin HCl 250 ml @ 125 mls/hr Q12H IV Last administered on 05/02/25at 10:21; Start 04/28/25 at 20:00; Stop 05/02/25 at 20:34; Status DC Insulin Glargine 40 units DAILY SQ; Start 04/29/25 at 09:00; Stop 04/30/25 at 07:31; Status DC Lidocaine HCl 50 ml STK-MED ONCE .ROUTE; Start 04/29/25 at 16:03; Stop 04/29/25 at 16:06; Status DC Heparin Sodium/ Sodium Chloride 500 ml @ As Directed STK-MED ONCE IV; Start 04/29/25 at 16:03; Stop 04/29/25 at 16:06; Status DC Iodixanol 100 ml STK-MED ONCE .ROUTE; Start 04/29/25 at 16:04; Stop 04/29/25 at 16:06; Status DC Fentanyl Citrate 100 mcg STK-MED ONCE .ROUTE; Start 04/29/25 at 16:27; Stop 04/29/25 at 16:28; Status DC Midazolam HCl 2 mg STK-MED ONCE .ROUTE; Start 04/29/25 at 16:28; Stop 04/29/25 at 16:28; Status DC Midazolam HCl 2 mg STK-MED ONCE .ROUTE; Start 04/29/25 at 16:52; Stop 04/29/25 at 16:52; Status DC Lidocaine 1 each ONCE ONCE TP Last administered on 04/29/25at 19:18; Start 04/29/25 at 18:30; Stop 04/29/25 at 18:33; Status DC Insulin Glargine 50 units DAILY SQ Last administered on 05/04/25at 09:30; Start 04/30/25 at 09:00; Stop 05/05/25 at 07:21; Status DC Insulin Human Regular 12 unit TIDAC SQ Last administered on 05/02/25at 06:45; Start 04/30/25 at 07:30; Stop 05/02/25 at 08:05; Status DC Hydromorphone HCl 1 mg TIDP PRN IVP Last administered on 04/30/25at 20:44; Start 04/30/25 at 13:00; Stop 05/01/25 at 18:46; Status DC Acetaminophen/ Hydrocodone Bitart 1 tab Q4H PRN PO Last administered on 04/30/25at 22:07; Start 04/30/25 at 12:00; Stop 05/05/25 at 11:59; Status DC Pharmacy Profile Note 1 each ONCE MISC; Start 05/01/25 at 08:00; Stop 04/30/25 at 16:52; Status DC Immune Globulin 400 ml @ 0 mls/hr Q24H IV Last administered on 05/01/25at 16:18; Start 05/01/25 at 14:00; Stop 05/02/25 at 12:38; Status DC Pregabalin 25 mg BID PO Last administered on 05/04/25at 09:22; Start 05/01/25 at 21:00; Stop 05/05/25 at 07:22; Status DC Lisinopril 10 mg DAILY PO Last administered on 05/11/25at 08:41; Start 05/02/25 at 09:00; Stop 06/01/25 at 08:59 Diphenhydramine HCl 25 mg ONCE PRN IVP; Start 05/01/25 at 15:00; Stop 05/01/25 at 15:06; Status DC Dexamethasone Sodium Phosphate 20 mg ONCE PRN IV; Start 05/01/25 at 15:00; Stop 05/01/25 at 15:05; Status DC Dexamethasone Sodium Phosphate 20 mg ONCALL IV Last administered on 05/02/25at 15:41; Start 05/01/25 at 15:30; Stop 05/03/25 at 15:31; Status DC Diphenhydramine HCl 25 mg ONCALL IVP Last administered on 05/02/25at 15:41; Start 05/01/25 at 15:30; Stop 05/03/25 at 15:31; Status DC Hydromorphone HCl 1 mg TID PRN IVP; Start 05/01/25 at 19:00; Stop 05/05/25 at 12:59; Status DC Insulin Human Regular 15 unit TIDAC SQ Last administered on 05/04/25at 17:33; Start 05/02/25 at 11:30; Stop 05/05/25 at 07:21; Status DC Immune Globulin 400 ml @ 0 mls/hr Q24H IV Last administered on 05/02/25at 16:46; Start 05/02/25 at 16:00; Stop 05/03/25 at 16:01; Status DC Vancomycin HCl 250 ml @ 125 mls/hr Q12H9 IV Last administered on 05/08/25at 08:48; Start 05/04/25 at 21:00; Stop 05/08/25 at 20:49; Status DC Pharmacy Profile Note 1 each ONCE MISC; Start 05/03/25 at 12:00; Stop 05/03/25 at 12:58; Status DC Gentamicin Sulfate/Sodium Chloride 100 ml @ 200 mls/hr Q24H IV Last administered on 05/08/25at 14:18; Start 05/03/25 at 14:00; Stop 05/08/25 at 21:01; Status DC Dexamethasone Sodium Phosphate 20 mg ONCALL IV Last administered on 05/03/25at 17:23; Start 05/03/25 at 17:15; Stop 05/03/25 at 17:16; Status DC Diphenhydramine HCl 25 mg ONCALL IVP Last administered on 05/03/25at 17:22; Start 05/03/25 at 17:15; Stop 05/03/25 at 17:16; Status DC Immune Globulin 400 ml @ 0 mls/hr Q24H IV Last administered on 05/03/25at 17:57; Start 05/03/25 at 17:15; Stop 05/03/25 at 17:16; Status DC Fluconazole 150 mg ONCE ONCE PO Last administered on 05/04/25at 15:57; Start 05/04/25 at 15:30; Stop 05/04/25 at 15:31; Status DC Insulin Human Regular INSULIN SLIDING SCAL... ACHS SQ Last administered on 05/11/25at 05:46; Start 05/05/25 at 07:30; Stop 06/04/25 at 07:29 Insulin Glargine 30 units DAILY SQ Last administered on 05/07/25at 08:12; Start 05/05/25 at 09:00; Stop 05/07/25 at 23:47; Status DC Insulin Human Regular 12 unit TIDAC SQ; Start 05/05/25 at 07:30; Stop 05/05/25 at 22:51; Status DC Venlafaxine HCl 37.5 mg HS PO Last administered on 05/11/25at 21:31; Start 05/05/25 at 21:00; Stop 06/04/25 at 20:59 Insulin Human Regular 10 unit TIDAC SQ Last administered on 05/07/25at 16:06; Start 05/06/25 at 07:30; Stop 05/07/25 at 23:47; Status DC Dexamethasone Sodium Phosphate 10 mg ONCE ONCE IVP Last administered on 05/06/25at 20:20; Start 05/06/25 at 20:00; Stop 05/06/25 at 20:04; Status DC Diphenhydramine HCl 25 mg ONCE ONCE IV Last administered on 05/06/25at 20:20; Start 05/06/25 at 20:00; Stop 05/06/25 at 20:04; Status DC Insulin Glargine 40 units DAILY SQ Last administered on 05/11/25at 08:45; Start 05/08/25 at 09:00; Stop 06/07/25 at 08:59 Insulin Human Regular 15 unit TIDAC SQ Last administered on 05/08/25at 17:16; Start 05/08/25 at 07:30; Stop 05/09/25 at 06:24; Status DC Vancomycin HCl 750 mg Q12H IVPB Last administered on 05/09/25at 09:45; Start 05/08/25 at 21:00; Stop 05/09/25 at 13:30; Status DC Gentamicin Sulfate/Sodium Chloride 100 ml @ 200 mls/hr Q12H IV Last administered on 05/09/25at 01:36; Start 05/09/25 at 02:00; Stop 05/09/25 at 13:30; Status DC Insulin Human Regular 18 unit TIDAC SQ Last administered on 05/09/25at 06:49; Start 05/09/25 at 07:30; Stop 05/10/25 at 09:56; Status DC Heparin Sodium (Porcine) 5,000 unit STK-MED ONCE .ROUTE Last administered on 05/09/25at 10:07; Start 05/09/25 at 09:57; Stop 05/09/25 at 09:57; Status DC Pharmacy Profile Note 1 each ONCE MISC; Start 05/09/25 at 13:00; Stop 05/09/25 at 13:42; Status DC Nystatin apply abdominal fold/perineum BID TP Last administered on 05/11/25at 21:26; Start 05/09/25 at 21:00; Stop 06/08/25 at 20:59 Daptomycin 1000 mg/Sodium Chloride 100 ml @ 200 mls/hr Q24H IV Last administered on 05/11/25at 16:20; Start 05/09/25 at 15:00; Stop 05/19/25 at 14:59 Ceftaroline Fosamil 400 mg/ Sodium Chloride 250 ml @ 250 mls/hr Q12H IV Last administered on 05/11/25at 16:23; Start 05/09/25 at 17:00; Stop 05/19/25 at 16:59 Insulin Human Regular 10 unit TIDAC SQ Last administered on 05/11/25at 12:10; Start 05/10/25 at 11:30; Stop 06/09/25 at 11:29 Diphenhydramine HCl 25 mg ONCE ONCE IV Last administered on 05/11/25at 01:55; Start 05/11/25 at 02:00; Stop 05/11/25 at 02:01; Status DC Lidocaine 1 patch ONCE ONCE TP Last administered on 05/11/25at 05:34; Start 05/11/25 at 05:30; Stop 05/11/25 at 05:32; Status DC Pantoprazole Sodium 40 mg DAILY PO Last administered on 05/11/25at 08:41; Start 05/11/25 at 09:00; Stop 06/10/25 at 08:59 Tramadol HCl 50 mg Q6H PRN PO Last administered on 05/11/25at 21:59; Start 05/11/25 at 22:00; Stop 05/16/25 at 21:59 Lidocaine 1 patch Q24H TP; Start 05/12/25 at 05:00; Stop 06/11/25 at 04:59 PARAG VANG MD May 11, 2025 22:39
--- NOTE | 2025-05-11 23:26 | PN ---
HISTORY OF PRESENT ILLNESS: This is a 54-year-old, morbidly obese female with cirrhosis of the liver, thrombocytopenia, currently with gram-positive bacteremia, MRSA, unclear source, possibly osteomyelitis. WBC tagged study is in the process. She cannot get [facility]AN because of profound thrombocytopenia. She was treated with steroids. She was treated with IVIG with stable platelet count 18,000 today. No active bleeding. REVIEW OF SYSTEMS: GENERAL: Tiredness and fatigue present. NECK: Denies any neck pain or neck stiffness. RESPIRATORY: Denies any cough, sputum or hemoptysis CARDIOVASCULAR: Denies any chest pain, palpitations or orthopnea. GASTROINTESTINAL: Denies nausea or vomiting. PHYSICAL EXAMINATION: GENERAL: Morbidly obese lady, not in any distress. VITAL SIGNS: Temperature 98.2, pulse 63, respirations 18, blood pressure 121/58. HEENT: Sclerae anicterus. NECK: Supple. No lymphadenopathy. LUNGS: Good entry bilaterally. CARDIOVASCULAR: S1, S2 audible. No added sound. ABDOMEN: Protruded. Obesity noted. EXTREMITIES: 2+ pedal edema. RESULTS REVIEW: Platelet count 18,000, hemoglobin 8.1, white count 6.8. Chemistry, BUN 41, creatinine 1.8, AST 153, ALT 154, alkaline phosphatase 443. ASSESSMENT AND PLAN: * Thrombocytopenia, likely complicating with significant comorbidities of obesity, cirrhosis of the liver. Now she has gram-positive bacteremia. Platelet count stays stable at this time. No active bleeding noted. Monitor CBC daily. Monitor platelet count. There is no contraindication of receiving platelet transfusion. * Ongoing bacteremia, gram-positive, MRSA, Infectious Disease Service on board, antibiotics on board, white blood tagged studies pending. Continue all supportive care. TID: [id number] RECEIPT: [id number]
[2025-05-12] VITALS (8 sets, daily range): BP systolic 112–134; BP diastolic 46–60; PULSE 68–76; RESP 16–21; TEMP 97.7–98.4; O2SAT 94–97
--- NOTE | 2025-05-12 01:22 | PN ---
INFECTIOUS DISEASE FOLLOWUP NOTE DATE OF SERVICE: 05/11/2025 SUBJECTIVE: The patient is seen and examined at bedside today. The patient has no fever, no chills. No nausea. No vomiting. ____. No depression. No suicidal ideation. No neck pain, no neck swelling. No rashes or itchiness. PHYSICAL EXAMINATION: VITAL SIGNS: Temperature 96.9. EYES: No icterus. Pupils equal and reactive. HENT: No oral thrush seen. Moist oral mucosa. NECK: Supple. No JVD or thyromegaly. LUNGS: Good air entry. No rales. No rhonchi. CARDIOVASCULAR: S1 and S2 regular. No murmur heard. ABDOMEN: Full, soft, nontender. Bowel sound is present. CENTRAL NERVOUS SYSTEMS: Awake, alert, oriented x 3. No focal deficits. SKIN: No rashes, no itchiness. LYMPHATIC: No peripheral lymphadenopathy. BACK: No deformity. No pressure ulcer. ASSESSMENT: A 54-year-old female with multiple problems, which include: * MRSA bacteremia. * Lumbar spine diskitis and abscess. * Morbid obesity. * Liver cirrhosis. * Hepatic encephalopathy. * Debility. PLAN: * Continue daptomycin. * Continue ceftaroline. * Continue pain management. * Continue ____. * Continue lactulose. * Continue antiemetics. * Blood culture will be repeated. TID: [id number] RECEIPT: [id number]
[2025-05-12] MEDS: LIDOCAINE 5% TOPICAL PATCH TP SCH (04:25)
[2025-05-12 04:59] LABS: IMMATURE GRANULOCYTE ABSOLUTE 0.11 K/uL (0-1); NUCLEATED RED BLOOD CELLS 0.0 % (0.0-0.19); PLATELET COUNT (AUTO) 21 K/uL (130-400); RED BLOOD CELL COUNT(AUTO) 3.19 MIL/uL (4.00-5.50); RED CELL DISTRIBUTION WIDTH 25.7 % (11.0-15.5); WHITE BLOOD COUNT (AUTO) 8.4 K/uL (4.8-10.8)
[2025-05-12 05:20] LABS: ASPARTATE AMINOTRANSFERASE 161.0 U/L (10-37); CREATINE KINASE, TOTAL 383.0 U/L (21-232); CREATININE 1.9 mg/dL (0.5-1.0); GLOMERULAR FILTR. RATE CALC 31.0 mL/min (>90); GLUCOSE,RANDOM 162.0 mg/dL (70-105); INR 1.69 (0.85-1.15); PHOSPHORUS 4.3 mg/dL (2.5-4.9); SODIUM SERUM 133.0 mmol/L (136-145); TOTAL PROTEIN, SERUM 7.5 g/dL (6.0-8.3); UREA NITROGEN, BLOOD 44.0 mg/dL (7-18)
--- NOTE | 2025-05-12 07:50 | PN ---
LOCATION: Room 314. SUBJECTIVE: The patient remains stable over the weekend. She has gram-positive bacteremia with MRSA, felt to have osteomyelitis. She is awake, alert, just fatigued. PHYSICAL EXAMINATION: GENERAL: Shows an obese woman in no distress. VITAL SIGNS: Blood pressure 119/53, pulse 70, respirations 20. CHEST: Clear. ABDOMEN: Soft. EXTREMITIES: Show 1+ edema NEUROLOGIC: Alert and oriented. LABORATORY DATA: Reviewed. CBC: hemoglobin 8 and platelets 21,000. IMPRESSION: * Thrombocytopenia, multifactorial. * Cirrhosis. * Consumptive thrombocytopenia. * History of lupus. * History of cirrhosis of the liver. * MRSA. PLAN: Continue medical management per the primary team, antibiotics, etc. Originally looking at [facility] for 4-6 weeks of antibiotics once she is more stable. TID: [id number] RECEIPT: [id number]
--- NOTE | 2025-05-12 08:46 | HMCIMG ---
EXAMINATION: ULTRASOUND OF THE ABDOMEN (LIMITED) WITH COLOR DOPPLER. CLINICAL HISTORY: Elevated LFT and right upper quadrant pain. COMPARISON: Ultrasound of the abdomen dated 04/23/2025. TECHNIQUE: Real-time grayscale ultrasound images of the abdomen. In addition, color Doppler is medically necessary to perform in order to evaluate vascularity and blood flow. FINDINGS: Liver: Normal in caliber, the right hepatic lobe measures 13.2 cm in the craniocaudal dimension. There is coarse echotexture and surface nodularity of the hepatic parenchyma. There is no focal hepatic abnormality or intrahepatic biliary ductal dilatation. There is normal spectral Doppler of the main portal vein. Gallbladder: Post cholecystectomy status. Common bile duct is obscured by overlying bowel gas. Pancreas: Normal in caliber and echotexture. No calcification or dilated pancreatic duct. The right kidney is normal in caliber, the right kidney measures 8.3 x 5.1 x 4.2 cm in craniocaudal, AP, and transverse dimensions respectively. There is normal renal cortical thickness, and increased cortical echogenicity. There is no renal calculus or hydronephrosis. There is mild to moderate free fluid in the perihepatic region. IMPRESSION: Chronic hepatic disease. Post cholecystectomy status. Increased echogenicity of the right kidney may reflect renal parenchymal disease. Recommend clinical correlation and with laboratory parameters. Mild to moderate ascites. Interval appearance. Previously demonstrated liver lesion and right hydronephrosis are not visualized. /Kushal
--- NOTE | 2025-05-12 09:20 | PN ---
FOLLOWUP PROGRESS NOTE SUBJECTIVE: A 54-year-old female initially presented with bacteremia. The patient's workup consistent with osteomyelitis. She has had persistent bacteremia. The patient with underlying renal dysfunction. Creatinine has been elevated and the patient is being seen as a followup visit for all the above. REVIEW OF SYSTEMS: CONSTITUTIONAL: She is feeling weak and tired. HEENT: No change in vision. No change in hearing. CARDIOVASCULAR: There is no chest pain or palpitations. PULMONARY: There is no shortness of breath. GASTROINTESTINAL: She is tolerating a diet. MUSCULOSKELETAL: Complains of weakness. PHYSICAL EXAMINATION: VITAL SIGNS: Blood pressure 116/58, pulse 60s, afebrile. GENERAL: She is a chronically ill female, much older than appearing. HEENT: Head is atraumatic. Pupils equal and roving to light. Oropharynx is without exudate. Nares clear. NECK: There is no JVP. There is no thyromegaly, no mass. CARDIOVASCULAR: Regular. There is no S3 or S4 gallop. LUNGS: Coarse with equal thoracic movement. ABDOMEN: Soft, nondistended, and nontender. EXTREMITIES: Reveal no clubbing, no cyanosis. NEUROLOGIC: She is awake. She is at her baseline. LABORATORY DATA: BUN 44, creatinine 1.9. Hemoglobin 8.4, hematocrit 27. IMPRESSION: * Acute on chronic renal failure. * Persistent bacteremia with osteomyelitis. * Diabetes mellitus. * History of lupus. PLAN: The patient continues with underlying renal dysfunction. Creatinine has remained fairly stable. She remains on the broad-spectrum IV antibiotics. The patient is being seen by case management for final disposition, for the long-term intravenous antibiotics. Blood pressure is under adequate control. We will continue to follow the patient closely. TID: [id number] RECEIPT: [id number]
--- NOTE | 2025-05-12 09:55 | PN ---
[facility] PROGRESS NOTE Date of Service: May 12, 2025 Time of Service: 09:51 SUBJECTIVE: This is a 54-year-old female with past medical history of undiagnosed obstructive sleep apnea, diabetes type 2, hypertension, hyperlipidemia, hypothyroidism, restless leg syndrome, anxiety disorder,depression, lupus and severe morbid obesity who presents to the ED for complaints of severe low back pain which started 2 weeks ago and getting worse for the past 2 days and patient reports she is taking prednisone 30mg po daily for her Lupus she said.Patient also reports she was recently seen in this ED for similar complaints and was diagnosed with acute lumbosacral myofascial strain. and patient was given pain meds and discharged home and came again today due to pain intensity is so severe and intolerable.Patient also reports that her whole body hurts more on muscle pain she said.Patient also reports she has muscle pain on her chest and it reproducible on light palpation.Patient also states she vomited x 1 today .Patient denies any injury,trauma and fall.Patient also reports that she is on her monthly period today and it is her first day.patient also states that is her application specialist and her last seen him last year and that she has insurance problem reason she was unable to keep her follow up. Urinalysis consistent with urinary tract infection. CT abdomen and pelvis result revealed no acute intra-abdominal or pelvic pathology cirrhotic liver morphology with splenomegaly, consistent with portal hypertension. Bilateral r enal cortical thickening may reflect renal parenchymal disease. While in the ER patient received Rocephin 1 g IV, 1 L NS bolus. We will admit patient for further medical management. 04/23/25 Patient was seen and examined at bedside. She was complaining of chest pain early in the morning but her EKG and troponin were normal. Patient says she got liver cirrhosis from taking Tylenol with codeine in the past for a long time. Remarkable labs are Na 129, K 6.4. Cl 98, BUN 44. Cr 1.2 with no anion gap. New EKG shows sinus rhythm with no tall T-waves or shortened QT interval. We will give her a dose of calcium gluconate and lokelma and recheck her labs. we will hold her iv fluids for now. Her urine anion gap is 36.0 mEq/l. Repeat potassium was 4.2 and 4.6. We will order CT lumbar spine and request nephro and cardio consults due to hyponatremia, RTA and cirrhosis with portal hypertension res pectively. We will order lupus, complement , anemia panel due to her abnormal labs and h/o SLE. Hematology recommended solu medrol 125 q6. she might need hydrochloroquine upon discharge for SLE 04/24/25 Patient was seen and examined at bedside. She is complaining of widespread generalized body pain with tender points and generalized weakness, her CPK is going up, we will repeat it and start her on pregabalin. Her labs are improving. She had an EGD done last year that showed grade III varices but lost to follow up with TDS. No GI intervention as her Hb is stable. Will start her on vancomycin. Her home meds have been reconciled. She takes venlaflaxine and pramipexole for depression and restless leg syndrome respectively. Her elevated urine anion gap could be due to BALTAZAR or NSAID induced kidney injury but her creatinine is improving. Pending abdominal ultrasound and CT lumbar spine result s. 04/25/25 Patient was seen and examined. She was observed sitting in a chair but was unable to answer questions appropriately and appeared confused. Ammonia level was elevated at 59; lactulose has been initiated at 30 mL TID. She is currently receiving vancomycin for MRSA identified in the urine. Right upper quadrant ultrasound demonstrated chronic hepatic changes with a hypoechoic lesion in the right lobe of the liver, possibly representing a complex cyst. CT of the lumbar spine revealed moderate lumbar spondylosis and diffuse osteopenia. Her platelet count is 37 and showing slow improvement. Dr. Urias, covering for Dr. Lorenzo, recommended holding solu-medrol for now. If platelet count declines tomorrow, steroids may need to be restarted. Ammonia and additional labs will be rechecked in the morning. 04/26/25 Patient was seen at bedside. Will request a transfer to the ICU due to worsening agitation and hypercapnic respiratory failure requiring BIPAP support.Will order Precedex drip for sedation to improve tolerance of non-invasive ventilation. Imaging studies including CT head and MRI spine have been ordered to evaluate for underlying neurologic causes. Patient remains hemodynamically stable; pulmonary consult is in place. She is growing gram positive cocci in clusters in her blood, will request ID input on antibiotics as she was on vancomycin previously and was started on bactrim for MRSA in urine. Her platelet count is 36 and solu-medrol is on hold. Ammonia improved from 59 to 12 04/27/25 Patient was evaluated at bedside. She was transferred to the ICU yesterday due to agitation and hypercapnia, requiring a Precedex drip as she was removing her nasal cannula. BiPAP was initiated to support ventilation, and she is now resting comfortably. CT brain was unremarkable with no acute findings. She has a free water deficit of approximately 1.4 liters, for which D5W will be administered. CRP has decreased from 83.5 to 56.4. However, platelets have dropped from 36 to 28, and hematology is closely monitoring her. The patient remains NPO. We wanted to start NG tube feeding but patient has h/o esophageal varices. We will await gastroenterologys recommendations, including possible EGD if indicated. 04/28/25 Patient was evaluated at bedside, she is bed bound not very responsive to questions. She is currently off BiPAP and precedex drip. Her agitation has improved and she is resting comfortably in bed. She has MRSA bacteremia and we will repeat blood cultures. She is currently on vancomycin. She has moderate right hydronephrosis which is increasing, we will request urology consult. Her sodium is trending upwards from 147 to 152 and she has a free water deficit of 2.4 L , we will increase D5 rate from 75 to 150mls/hr. CRP improving from 56.4 to 42.7. Platelets dropped from 28 to 21, we will follow Dr. Lorenzo's recommendations and his plan is give her IgG. She is not bleeding actively. 04/29/25 Patient was evaluated at bedside. She is alert, awake and oriented. She was minimally verbal yesterday but is now more interactive, expressing pain and discussing her medical history. She reports diffuse joint pain and is unable to lift her arms or legs due to significant discomfort. She has generalized joint tenderness and weak management development specialist strength bilaterally. urologist Dr. Colin recommended nephrostomy tube on her right due to hydronephrosis. Her platelets improved to 44 without any intervention. She will be getting platelets for the procedure. She has infectious spondylodiscitis which could be the source of her bacteremia. We have requested transfer to [facility] but powerhouse laborer said Dr. Sanchez has privileges at [facility] and will try to consult him. Her white count went up to 12.2, LFTs mildly going up. We will hold off on gabapentin for now. 04/30/25 Patient was evaluated at bedside. She is alert, awake and oriented. Her vitals are stable. She is interactive, expressing pain and discussing her medical history. She reports diffuse joint pain and is able to lift her arms or legs slightly due to pain and discomfort. Her active and passive range of motions are limited. She has generalized joint tenderness and weak management development specialist strength bilaterally. She also passed stool more than 5 times yesterday could be due to lactulose which has been stopped from today. A Percutaneous fluroscopy-guided placement of an 8-F nephrostomy catheter was performed,the patient tolerated the procedure well. Neurosurgeon Dr. Sanchez saw the patient and came up with possible diagnosis of discitis and osteomyelitis at L2-L3 along with psoas inflammation. She has spondylolisthesis which is non- critical and can be managed medically for now. According to Dr. Lorenzo she will benefit from IVIg for 3 days on the background of possible ITP. Her current platelet is 41 and Hgb 9.6. Also, Endocrinology team adjusted Insulin regimen. We have requested cardiology consult for suspected endocarditis and will request RAMAN although she has thrombocytopenia and h/o esophageal varices. 05/01/25 Patient was evaluated at bedside. She is alert, awake and oriented. Her vitals are stable, except blood pressure which is 158/80. She reports diffuse joint pain and is able to lift her arms or legs slightly due to pain and discomfort. Her active and passive range of motions are limited. She has generalized joint tenderness and weak management development specialist strength bilaterally. As per Dr. Lorenzo she will be started IVIG from today for 3 days. As per the Cardiology, she won't undergo RAMAN due thrombocytopenia, cirrhosis, varices. We will continue IV antibiotics and add low dose pregabalin for her pain. 05/02/25 Patient was evaluated at bedside. She is alert, awake and oriented. Her vitals are stable, except blood pressure which is 157/81. Labs showed WBC decreasing from 11.6 to 5.7, platelets from 44 to 32 and random glucose of 226. There has been marked decline in pain. We will continue IV antibiotics and she is receiving Immune globulin every 24 hr. Her Insulin dosage has been adjusted. Blood culture showed gram positive cocci in clusters, STAPHYLOCOCCUS AUREUS. Her prognosis remains guarded. Plan is to discharge her to [facility] for 6 weeks of IV antibiotics. 05/03/25 Patient was evaluated at bedside. She is alert, awake and oriented. Her vitals are stable,and her blood pressure which is 137/70. Labs showed WBC 7.8 , platelets from increasing from 32 to 44 and random glucose of 232. Her creatinine level is 1.2. There has been marked decline in pain and discomfort. We will continue IV antibiotics and she is receiving Immune globulin every 24 hr. Her last dose for Immune globulin is today. Her Insulin dosage has been adjusted. Blood culture showed gram positive cocci. Her prognosis remains guarded. She is on IV vancomycin. Plan is to discharge her to [facility] for 6 weeks of IV antibiotics. 05/04/25: The patient was evaluated at the bedside today. She had just finished showering and reported new-onset slurred speech, facial weakness and word- finding difficulty. She reports no weakness in the extremities. Blood cultures remain positive for gram-positive cocci, specifically MRSA. She is continuing on vancomycin, and gentamicin was initiated yesterday per Infectious Disease recommendations. She has completed a total of three IV IgG infusions. Platelet count is currently 31,000, decreased from 41,000 yesterday. Additionally, the patient has developed a groin rash with associated itching. Physical therapy noted that she was unable to ambulate today and experienced significant difficulty with mobility. We will continue to closely monitor her neurological status, platelet counts, and overall clinical response. Repeat blood cultures will be obtained at an appropriate interval following the initiation of gentamicin, per Infectious Disease guidance. Further assessment and management plan are outlined below. 05/05/25 The patient was evaluated at the bedside today. Her vitals are stable and comm unicated well. She complaints of pain in the neck and shoulder. She reports no weakness in the extremities. Blood cultures remain positive for gram-positive cocci, specifically MRSA. She is continuing on vancomycin, and gentamicin per Infectious Disease recommendations. Repeat blood cultures will be obtained at an appropriate interval following the initiation of gentamicin. She has completed a total of three IV IgG infusions. Platelet count is currently decreased from 31,000 [place] [address]. Her WBC is 6.8 and Hgb is 8.6. Her insulin medications has been adjusted by the endocrinology team. Additionally, the patient's groin rash with associated itching has been improving. She has been prescribed for Venlafaxine for management of depression and anxiety. Also Case management updated that they are [facility], Insurance approval is still pending; no authorization has been granted as of this time. Further assessment and management plan are outlined below. 05/06/25 The patient was evaluated at the bedside today. Her vitals are stable and communicated well. Her pain is gradually decreasing. She reports no weakness in the extremities. Blood cultures remain positive for gram-positive cocci, specifically MRSA. Blood culture has been sent today after 3 days of gentamicin. She is continuing on vancomycin, and gentamicin per Infectious Disease recommendations. . She has completed a total of three IV IgG infusions. Platelet count is currently decreased from 31,[address] Dr[address] Lorenzo, she has been planned for the transfusion of platelets today. Her WBC is 5.1, Hgb is 8.9, CRP 61.50 and whole blood glucose 233. In addition,PT is 17.2, INR 1.71, APTT 36.3 and Fibrinogen 119. Also, the Liver enzymes are elevated with total bilirubin of 1.6, AST 166, ALT 136 and ALP 358. Her Vancomycin trough level has increased from 5.0 to 18.1. Her insulin medications has been adjusted by the endocrinology team. Additionally, the patient's groin rash has been improving. As per Nephrology, the patient's renal function has actually greatly improved &the patient is being seen by case management in regards to placement at the [facility]. We will continue to follow the patient closely. 05/07/25 The patient was evaluated at the bedside today. Her vitals are stable and communicated well. Her pain has reduced significantly. Preliminary Blood cultures showed positive for gram-positive cocci which was done yesterday after 3 days of gentamicin. PICC line has been removed as per ID recommendation. Platelet [place] [address] today. Fecal occult blood test is positive. She received platelets transfusion yesterday. Her WBC is trending downwards from 5.1 to 3.0, Hgb is 8.4, and whole blood glucose 245. In addition, PT is 17.2, INR 1.71, APTT 36.3 and Fibrinogen 119. Her D-dimer is 7184. She has been planed today for bilateral US venous Doppler,V/Q scan and CTPA. Her Liver enzymes revealed total bilirubin of 1.9, AST 120, ALT 125 and ALP 371. Her Vancomycin trough level has decreased from 18.1 to 0.2. Her insulin medications has been followed by the endocrinology team. As per Dr Lorenzo, the patient can be transferred to [facility] as soon as accepted and he is trying to get her Promacta, medicine that raises the platelets,once its available. The WBC-tagged scan has been deferred and rescheduled for tomorrow to avoid excessive radiation exposure since patient was initially planned for V/Q scan today. 05/08/25 The patient was evaluated at the bedside today. Her vitals are stable and communicated well. She complained of hyperventilation in the night. Platelet count [id number] today. Her WBC is 5.6, Hgb is 9.1, and whole blood glucose is 314 . In addition, PT is 16, INR 1.58, APTT 35 and Fibrinogen 122. Her D-dimer is 6586. Her V/Q scan wasn't completed because she couldn't lie flat. The US venous doppler (B/L) was done which revealed no deep venous thrombosis evident in the bilateral lower extremity and No superficial thrombophlebitis in the bilateral lower extremity. Her Liver enzymes revealed total bilirubin of 1.9, AST 102, ALT 124 and ALP 391. Her Gentamicin peak and trough level is 0.2 and 0.3 respectively. Her insulin medications has been followed by the endocrinology team. We are awaiting for WBC tagged scan report. 05/09/25 The patient was evaluated at the bedside today. Her vitals are stable and communicated well. She complained of right lower [place] [address] today. Her WBC is 6.2, Hgb is 8.7, and random blood glucose is 236. Blood culture is positive for gram positive cocci. According to ID recommendation, Patient is started on Daptomycin and Ceftaroline. As per Dr Lorenzo, he is trying to get the promacta. Her Liver enzymes revealed total bilirubin of 1.8, AST 128, ALT 139 and ALP 410. Her creatinine is 1.2 and BUN is 41. Participation with physical therapy has been improving. We will continue to monitor patient. 05/10/25 The patient was evaluated at the bedside today. Her vitals are stable and communicated well. [place] [address] [place] [address]. Her WBCs trending downwards from 6.2 to 4.7, RBC 3.34, hemoglobin 8.8. Blood culture is positive for gram positive cocci. According to ID recommendation, Patient is on Day 2 of Daptomycin and Ceftaroline. Blood cultures will be sent on Monday. She did her 1st cycle of WBC tagged scan test. It will be done on 48 hours and then 72 hours. After that we will have the conclusive findings if anything is present. Her creatinine is trending upwards from 1.2 to 1.5 and blood urea nitrogen is 39. Her CRP is 47.80. Her creatinine is 1.2 and BUN is 41. Participation with physical therapy has been improving. As per the recommendation of Endocrinology she is getting Lantus 30 units daily and Humalog 10 units t.i.d. before beats patient's glucose are improving. Today's random blood glucose was 182. We will continue to monitor the patient. 05/11/25 The patient was evaluated at the bedside today. She complained of right upper quadrant pain. She is stable hemodynamically. Platelet count 80524. Her WBCs trending up from 4.7 to 6.8, hemoglobin 8.1. Blood culture is positive for gram positive cocci. According to ID recommendation, Patient is on Day 3 of Daptomycin and Ceftaroline. Blood cultures will be sent on Monday. She did her 2nd cycle of WBC tagged scan test. Next cycle will be done today and tomorrow.. After that we will have the conclusive findings if anything is present. Her creatinine is trending upwards from 1.2< 1.5<1.8 and blood urea nitrogen is 41. LFT trending up, bilirubin 2.1, AST 153, ALT 154, ALP 443. Her CRP is 47.80. Participation with physical therapy has been improving. As per the recommendation of Endocrinology she is getting Lantus 40 units daily and Humalog 10 units t.i.d with sliding scale insulin.. Today's random blood glucose was 210. We will continue to monitor the patient. Hematology, ID and nephrology on the board. Plan as discussed below 05/12/25 The patient was evaluated at the bedside today. She complained of right upper quadrant pain. She is [place] [address]. Her WBCs trending up from 4.7 to 6.8 to 8.4 toady, hemoglobin 8.1 to 8.4. Blood culture is positive for gram positive cocci. According to ID recommendation, Patient is on Day 4 of Daptomycin and Ceftaroline. Blood cultures will be sent today. She did her all the cycles of of WBC tagged scan test and we are awaiting the final results. Her creatinine is trending upwards from 1.2< 1.5<1.8<1.9 and blood urea nitrogen is 44. Her total creatine kinase is 383. LFT trending up, bilirubin 2.2, AST 161, ALT 158, ALP 451. Her albumin is 1.4. Ultrasonography done on 05/11 revealed increased echogenicity of the right kidney which may reflect renal parenchymal disease. Previously demonstrated liver lesion and right hydronephrosis are not visualized. Chronic hepatitis disease was present. She will receive vitamin K 10 mg. Along with other lab parameters we will check the coagulation profile. She has been planned for MRI of lumbar spine with contrast. As per the recommendation of Endocrinology she is getting Lantus 30 units daily and Humalog 10 units t.i.d with sliding scale insulin. Today's random blood glucose was 162. We will continue to monitor the patient. Hematology, ID and nephrology on the board. Plan as discussed below. REVIEW OF SYSTEMS CONSTITUTIONAL: No fever, chills, or night sweats. NEUROLOGICAL: Denies headache, sensory and motor deficit. CARDIOVASCULAR: Denies any exertional angina, dyspnea on exertion, orthopnea, paroxysmal nocturnal dyspnea, palpitations. PULMONARY: Complained of hyperventilation in the night,Denies any shortness of breath, cough, phlegm/sputum, hemoptysis, pleuritic chest pain. GASTROINTESTINAL: Denies nausea, vomiting. Denies pain, tenderness around the abdomen. GENITOURINARY: Denies frequency, urgency, nocturia, hematuria or incontinence. PHYSICAL EXAM GENERAL APPEARANCE: The patient is alert, awake and oriented and bedbound NEUROLOGICAL: No sensory and motor deficits. CHEST: Normal chest expansion. LUNGS: Absence of any rales, rhonchi or any wheezing. CARDIOVASCULAR: Regular. S1 and S2 normal. No appreciable rubs, murmurs or gallops. ABDOMEN: Soft nontender, and nondistended. There is no rebound, voluntary guarding, or rigidity. GENITOURINARY: S/P day 9, Nephrostomy tube on the right side Vital Signs (last 8hr) Date Time Temp Pulse Resp B/P (MAP) Pulse Ox O2 Delivery O2 Flow Rate FiO2 05/12/25 08:00 98.2 68 21 116/58 94 Room Air 05/12/25 04:13 98.1 70 16 119/53 97 Room Air LABS: Laboratory: Test 05/12/25 05:20 05/12/25 04:44 05/11/25 18:55 05/11/25 04:41 Range/Units Whole Blood Glucose 154 H 70-110 MG/DL White Blood Count 8.4 4.8-10.8 K/uL Red Blood Count 3.19 L 4.00-5.50 MIL/uL Hemoglobin 8.4 L 12.0-16.0 g/dL Hematocrit 27.0 L 36-48 % Mean Corpuscular Volume 84.6 79-99 fL Mean Corpuscular Hemoglobin 26.3 L 27.0-33.0 pg Mean Corpuscular Hemoglobin Concent 31.1 L 32.0-36.0 g/dL Red Cell Distribution Width 25.7 H 11.0-15.5 % Platelet Count 21 L 130-400 K/uL Mean Platelet Volume 7.5-10.5 fL Immature Granulocyte % (Auto) 1.3 H 0-1 % Neutrophils (%) (Auto) 82.0 H 40.0-77.0 % Lymphocytes (%) (Auto) 6.4 L 21.0-51.0 % Monocytes (%) (Auto) 8.4 3.0-13.0 % Eosinophils (%) (Auto) 1.8 0.0-8.0 % Basophils (%) (Auto) 0.1 0.0-5.0 % Neutrophils # (Auto) 6.9 1.8-7.7 K/uL Lymphocytes # (Auto) 0.5 L 1.0-4.8 K/uL Monocytes # (Auto) 0.7 0.1-1.0 K/uL Eosinophils # (Auto) 0.15 0.00-0.70 K/uL Basophils # (Auto) 0.01 0.00-0.20 K/uL Absolute Immature Granulocyte (auto 0.11 0-1 K/uL Nucleated Red Blood Cells 0.0 0.0-0.19 % Prothrombin Time 17.0 H 9.6-11.6 SEC Prothromb Time International Ratio 1.69 H 0.85-1.15 Activated Partial Thromboplast Time 43.6 H 26.3-35.5 SEC Fibrinogen 117 L 180-350 mg/dL Sodium Level 133 L 136-145 mmol/L Potassium Level 4.9 3.5-5.1 mmol/L Chloride Level 103 101-111 mmol/L Carbon Dioxide Level 24 21-32 mmol/L Blood Urea Nitrogen 44 H 7-18 mg/dL Creatinine 1.9 H 0.5-1.0 mg/dL Glomerular Filtration Rate Calc 31 >90 mL/min Random Glucose 162 H 70-105 mg/dL Total Calcium 8.2 L 8.5-10.1 mg/dL Phosphorus Level 4.3 2.5-4.9 mg/dL Magnesium Level 1.90 1.80-2.40 mg/dL Total Bilirubin 2.2 H 0.2-1.0 mg/dL Aspartate Amino Transf (AST/SGOT) 161 H 10-37 U/L Alanine Aminotransferase (ALT/SGPT) 158 H 12-78 U/L Alkaline Phosphatase 451 H 50-136 U/L Total Creatine Kinase 383 #H 21-232 U/L Total Protein 7.5 6.0-8.3 g/dL Albumin 1.4 L 3.5-5.0 g/dL D-Dimer Quantitative (PE/DVT) 7068 *H 0-500 ng/mL Segmented Neutrophils % 96 H 40-70 % Lymphocytes % (Manual) 2 L 22-44 % Monocytes % (Manual) 2 2-9 % Differential Comment MANUAL DIFFERENTIAL White Cell Morphology Comment Platelet Morphology Comment MARKED DECREASE Red Blood Cell Morphology See comments Current Medications Medications (Trade) Dose Ordered Sig/Roberth Route PRN Reason Start Time Stop Time Status Last Admin Dose Admin Acetaminophen (TYLenol 325MG TAB) 650 mg Q4H PRN PO MILD PAIN (1-3) 04/22/25 20:00 05/22/25 19:59 05/11/25 21:31 650 MG Acetaminophen (TYLenol 325MG TAB) 650 mg Q6H PRN PO TEMPERATURE GREATER THAN 101.5 04/22/25 20:00 05/22/25 19:59 04/23/25 10:02 650 MG Acetaminophen/ Hydrocodone Bitart (NORco 5/325MG) 1 tab Q4H PRN PO MODERATE PAIN (4-6) 04/30/25 12:00 05/05/25 11:59 DC 04/30/25 22:07 1 TAB Atorvastatin Calcium (LIPItor 20MG) 20 mg HS PO 04/24/25 21:00 05/24/25 20:59 05/11/25 21:31 20 MG Ceftaroline Fosamil 400 mg/ Sodium Chloride 250 ml @ 250 mls/hr Q12H IV 05/09/25 17:00 05/19/25 16:59 05/12/25 04:24 250 MLS/HR Ceftriaxone Sodium 1 gm/ Sodium Chloride 50 ml @ 100 mls/hr BID IV 04/22/25 21:00 04/22/25 19:59 DC Ceftriaxone Sodium (ROCEphine 1G INJ) 1 gm BID IVPB 04/22/25 21:00 04/22/25 20:44 DC Ceftriaxone Sodium (ROCEphine 1G INJ) 1 gm BID IVPB 04/23/25 09:00 04/25/25 12:36 DC 04/25/25 09:44 1 GM Daptomycin 1000 mg/Sodium Chloride 100 ml @ 200 mls/hr Q24H IV 05/09/25 15:00 05/19/25 14:59 05/11/25 16:20 200 MLS/HR Dexamethasone Sodium Phosphate (dexaMETHasone 4MG/ML 1ML VIAL) 20 mg ONCALL IV 05/01/25 15:30 05/03/25 15:31 DC 05/02/25 15:41 20 MG Dexamethasone Sodium Phosphate (dexaMETHasone 4MG/ML 1ML VIAL) 20 mg ONCALL IV 05/03/25 17:15 05/03/25 17:16 DC 05/03/25 17:23 20 MG Dexamethasone Sodium Phosphate (dexaMETHasone 4MG/ML 1ML VIAL) 20 mg ONCE PRN IV PRE-MED 05/01/25 15:00 05/01/25 15:05 DC Dexmedetomidine/ Sodium Chloride (PRECEdex 200MCG/ 50ML-NS) 200 mcg PROTOCOL IV 04/26/25 12:00 04/26/25 14:54 DC Dexmedetomidine/ Sodium Chloride (PRECEdex 400MCG/ 100ML-NS) 400 mcg PROTOCOL PRN IV ANXIETY/AGITATION 04/26/25 19:30 05/01/25 12:45 DC 04/27/25 23:31 400 MCG Dexmedetomidine/ Sodium Chloride (PRECEdex 400MCG/ 100ML-NS) 400 mcg PROTOCOL STAT IV 04/26/25 14:53 04/26/25 14:58 DC 04/26/25 15:18 400 MCG Dextrose 1,000 ml @ 75 mls/hr [id number] IV 04/26/25 12:00 04/30/25 09:36 DC 04/29/25 04:27 150 MLS/HR Dextrose (D50w) 50 ml AD PRN IV HYPOGLYCEMIA PROTOCOL 04/22/25 20:00 05/22/25 19:59 Diphenhydramine HCl (BENAdryl INJ) 25 mg ONCALL IVP 05/01/25 15:30 05/03/25 15:31 DC 05/02/25 15:41 25 MG Diphenhydramine HCl (BENAdryl INJ) 25 mg ONCALL IVP 05/03/25 17:15 05/03/25 17:16 DC 05/03/25 17:22 25 MG Diphenhydramine HCl (BENAdryl INJ) 25 mg ONCE PRN IVP PRE-MED 05/01/25 15:00 05/01/25 15:06 DC Famotidine (Pepcid 20mg Tab) 20 mg DAILY PO 04/23/25 09:00 04/24/25 09:48 DC 04/23/25 09:33 20 MG Gabapentin (NEURontin 300 MG CAP) 300 mg BID PO 04/24/25 21:00 04/28/25 09:10 DC 04/25/25 21:51 300 MG Gentamicin Sulfate/Sodium Chloride 100 ml @ 200 mls/hr Q12H IV 05/09/25 02:00 05/09/25 13:30 DC 05/09/25 01:36 200 MLS/HR Gentamicin Sulfate/Sodium Chloride 100 ml @ 200 mls/hr Q24H IV 05/03/25 14:00 05/08/25 21:01 DC 05/08/25 14:18 200 MLS/HR Glucagon (Glucagon 1mg Kit) 1 mg AD PRN IM HYPOGLYCEMIA PROTOCOL 04/22/25 20:00 05/22/25 19:59 Heparin Sodium (Porcine) (HEParin 5,000 UNIT VIAL) 5,000 unit Q8H SQ 04/25/25 09:00 04/25/25 08:40 DC Hydromorphone HCl (DiLAUDid 0.5MG INJ) 0.5 mg BIDPRN PRN IVP SEVERE PAIN (7-10) 04/25/25 19:00 04/30/25 11:59 DC 04/29/25 23:31 0.5 MG Hydromorphone HCl (DiLAUDid 0.5MG INJ) 0.5 mg Q6H PRN IVP SEVERE PAIN (7-10) 04/23/25 14:00 04/25/25 08:25 DC 04/25/25 04:14 0.5 MG Hydromorphone HCl (DiLAUDid 1MG INJ) 1 mg TID PRN IVP SEVERE PAIN (7-10) 05/01/25 19:00 05/05/25 12:59 DC Hydromorphone HCl (DiLAUDid 1MG INJ) 1 mg TIDP PRN IVP SEVERE PAIN (7-10) 04/30/25 13:00 05/01/25 18:46 DC 04/30/25 20:44 1 MG Immune Globulin 400 ml @ 0 mls/hr Q24H IV 05/01/25 14:00 05/02/25 12:38 DC 05/01/25 16:18 37.5 MLS/HR Immune Globulin 400 ml @ 0 mls/hr Q24H IV 05/02/25 16:00 05/03/25 16:01 DC 05/02/25 16:46 37.5 MLS/HR Immune Globulin 400 ml @ 0 mls/hr Q24H IV 05/03/25 17:15 05/03/25 17:16 DC 05/03/25 17:57 37.5 MLS/HR Insulin Glargine (LANtus 100 UNITS/ML 10 ML VIAL) 10 units HS SQ 04/24/25 21:00 04/24/25 16:57 DC Insulin Glargine (LANtus 100 UNITS/ML 10 ML VIAL) 10 units ONCE STAT SQ 04/24/25 10:54 04/24/25 11:00 DC 04/24/25 11:19 10 UNITS Insulin Glargine (LANtus 100 UNITS/ML 10 ML VIAL) 15 units HS SQ 04/24/25 21:00 04/24/25 17:06 DC Insulin Glargine (LANtus 100 UNITS/ML 10 ML VIAL) 30 units DAILY SQ 05/05/25 09:00 05/07/25 23:47 DC 05/07/25 08:12 30 UNITS Insulin Glargine (LANtus 100 UNITS/ML 10 ML VIAL) 30 units ONCE SQ 04/24/25 17:00 04/25/25 06:19 DC 04/24/25 18:16 30 UNITS Insulin Glargine (LANtus 100 UNITS/ML 10 ML VIAL) 40 units DAILY SQ 05/08/25 09:00 06/07/25 08:59 05/12/25 09:15 40 UNITS Insulin Glargine (LANtus 100 UNITS/ML 10 ML VIAL) 40 units DAILY SQ 04/29/25 09:00 04/30/25 07:31 DC Insulin Glargine (LANtus 100 UNITS/ML 10 ML VIAL) 50 units DAILY SQ 04/26/25 09:00 04/29/25 06:49 DC 04/28/25 08:46 50 UNITS Insulin Glargine (LANtus 100 UNITS/ML 10 ML VIAL) 50 units DAILY 04/30/25 09:00 05/05/25 07:21 DC 05/04/25 09:30 50 UNITS Insulin Human Regular (humuLIN R 100 UNIT/ML 3ML) 5 unit TIDAC SQ 04/24/25 17:00 04/24/25 17:06 DC Insulin Human Regular (humuLIN R 100 UNIT/ML 3ML) 8 unit TIDAC SQ 04/28/25 07:30 04/30/25 07:31 DC 04/30/25 06:15 8 UNIT Insulin Human Regular (humuLIN R 100 UNIT/ML 3ML) 10 unit TIDAC SQ 05/06/25 07:30 05/07/25 23:47 DC 05/07/25 16:06 10 UNIT Insulin Human Regular (humuLIN R 100 UNIT/ML 3ML) 10 unit TIDAC SQ 05/10/25 11:30 06/09/25 11:29 05/11/25 12:10 10 UNIT Insulin Human Regular (humuLIN R 100 UNIT/ML 3ML) 10 unit TIDAC SQ 04/24/25 17:00 04/25/25 06:17 DC 04/25/25 06:15 10 UNIT Insulin Human Regular (humuLIN R 100 UNIT/ML 3ML) 12 unit TIDAC SQ 05/05/25 07:30 05/05/25 22:51 DC Insulin Human Regular (humuLIN R 100 UNIT/ML 3ML) 12 unit TIDAC SQ 04/30/25 07:30 05/02/25 08:05 DC 05/02/25 06:45 12 UNIT Insulin Human Regular (humuLIN R 100 UNIT/ML 3ML) 15 unit TIDAC SQ 05/02/25 11:30 05/05/25 07:21 DC 05/04/25 17:33 15 UNIT Insulin Human Regular (humuLIN R 100 UNIT/ML 3ML) 15 unit TIDAC SQ 05/08/25 07:30 05/09/25 06:24 DC 05/08/25 17:16 15 UNIT Insulin Human Regular (humuLIN R 100 UNIT/ML 3ML) 15 unit TIDAC SQ 04/26/25 11:30 04/27/25 20:30 DC Insulin Human Regular (humuLIN R 100 UNIT/ML 3ML) 18 unit TIDAC SQ 05/09/25 07:30 05/10/25 09:56 DC 05/09/25 06:49 18 UNIT Insulin Human Regular (humuLIN R 100 UNIT/ML 3ML) 25 unit TIDAC SQ 04/25/25 07:30 04/26/25 07:58 DC 04/25/25 17:39 25 UNIT Insulin Human Regular (humuLIN R 100 UNIT/ML 3ML) INSULIN SLIDING SCAL... ACHS SQ 04/22/25 21:00 04/24/25 16:16 DC 04/24/25 11:18 8 UNIT Insulin Human Regular (humuLIN R 100 UNIT/ML 3ML) INSULIN SLIDING SCAL... ACHS SQ 05/05/25 07:30 06/04/25 07:29 05/11/25 05:46 6 UNIT Insulin Human Regular (humuLIN R 100 UNIT/ML 3ML) INSULIN SLIDING SCAL... ACHS SQ 04/24/25 16:30 04/25/25 14:09 DC 04/25/25 11:57 16 UNIT Insulin Human Regular (humuLIN R 100 UNIT/ML 3ML) INSULIN SLIDING SCAL... ACHS SQ 04/25/25 16:30 05/04/25 23:42 DC 05/04/25 20:49 6 UNIT Insulin Human Regular (humuLIN R 100 UNIT/ML 3ML) INSULIN SLIDING SCAL... Q4H SQ 04/27/25 20:30 04/28/25 09:11 DC 04/28/25 06:00 4 UNIT Lactated Ringer's 1,000 ml @ 100 mls/hr Q10H IV 04/22/25 20:00 04/23/25 10:09 DC 04/23/25 06:00 100 MLS/HR Lactulose (Constulose 20gm/ 30ml Udcup) 30 gm TID PO 04/25/25 11:00 04/30/25 09:45 DC 04/30/25 09:16 30 GM Levothyroxine Sodium (SYNTHroid 125MCG TAB) 125 mcg DAILY@0630 PO 04/25/25 06:30 05/25/25 06:29 05/12/25 04:24 125 MCG Lidocaine (Lidoderm Patch 5%) 1 patch Q24H TP 05/12/25 05:00 06/11/25 04:59 Lisinopril (Prinivil 10mg) 10 mg DAILY PO 05/02/25 09:00 06/01/25 08:59 05/12/25 09:13 10 MG Magnesium Sulfate 50 ml @ 0 mls/hr PROTOCOL PRN IV OTHER [SEE ORDER COMMENTS] 04/22/25 20:00 05/22/25 19:59 Methylprednisolone Sodium Succinate (Solu-medROL 125MG) 125 mg Q6H IVP 04/23/25 08:00 04/28/25 09:10 DC 04/25/25 09:45 125 MG Metoprolol Succinate (TopROL XL) 50 mg AM PO 04/25/25 09:00 05/25/25 08:59 05/12/25 09:13 50 MG Nystatin (NystOP 15 GM POWDER) apply abdominal fold/perineum BID TP 05/09/25 21:00 06/08/25 20:59 05/12/25 09:13 1 APPL Ondansetron HCl (zoFRAN 4MG INJ) 4 mg Q6H PRN IV NAUSEA/VOMITING 04/22/25 20:00 05/22/25 19:59 04/22/25 20:10 4 MG Pantoprazole Sodium (PROTonix 40MG INJ) 40 mg DAILY IVP 04/24/25 10:00 05/11/25 08:11 DC 05/10/25 09:09 40 MG Pantoprazole Sodium (PROTonix 40MG TAB) 40 mg DAILY PO 05/11/25 09:00 06/10/25 08:59 05/12/25 09:13 40 MG Pharmacy Profile Note (Pharmacy Communication) 1 each ONCE MISC 05/01/25 08:00 04/30/25 16:52 DC Pharmacy Profile Note (Pharmacy Communication) 1 each ONCE MISC 05/03/25 12:00 05/03/25 12:58 DC Pharmacy Profile Note (Pharmacy Communication) 1 each ONCE MISC 05/09/25 13:00 05/09/25 13:42 DC Potassium Chloride 100 ml @ 100 mls/hr AD PRN IV POTASSIUM PROTOCOL 04/22/25 20:00 05/22/25 19:59 Potassium Chloride (K-Dur/Klor-Con 20meq) 20 meq AD PRN PO POTASSIUM PROTOCOL 04/22/25 20:00 05/22/25 19:59 05/03/25 13:10 20 MEQ Potassium Chloride (KCl 10% Elixir 20meq/15ml) 20 meq AD PRN PO POTASSIUM PROTOCOL 04/22/25 20:00 05/22/25 19:59 Pramipexole Dihydrochloride (miraPEX 0.25MG TAB) 0.5 mg HS PO 04/24/25 21:00 05/24/25 20:59 05/11/25 21:30 0.5 MG Pregabalin (LYRica 25MG) 25 mg BID PO 05/01/25 21:00 05/05/25 07:22 DC 05/04/25 09:22 25 MG Pregabalin ([id number]) 75 mg BID PO 04/24/25 21:00 04/24/25 14:49 DC Sodium Chloride 500 ml @ 0 mls/hr Q0M IV 04/25/25 11:00 05/25/25 10:59 Sodium Zirconium Cyclosilicate (Lokelma 10gm Powder) 10 gm TID PO 04/23/25 21:00 04/23/25 14:11 DC Tramadol HCl (UltRAM) 50 mg Q6H PRN PO MODERATE PAIN (4-6) 05/11/25 22:00 05/16/25 21:59 05/11/25 21:59 50 MG Tramadol HCl (UltRAM) 50 mg Q6H PRN PO MODERATE PAIN (4-6) 04/24/25 22:30 04/29/25 22:29 DC 04/28/25 13:55 50 MG Trimethoprim/ Sulfamethoxazole (BactRIM DS) 1 tab BID PO 04/25/25 21:00 04/26/25 14:50 DC 04/25/25 21:51 1 TAB Vancomycin HCl 250 ml @ 125 mls/hr Q12H IV 04/24/25 23:00 04/25/25 12:36 DC 04/25/25 11:43 125 MLS/HR Vancomycin HCl 250 ml @ 125 mls/hr Q12H IV 04/26/25 15:30 04/28/25 03:13 DC 04/27/25 15:22 125 MLS/HR Vancomycin HCl 250 ml @ 125 mls/hr Q12H IV 04/28/25 15:30 04/28/25 18:53 DC Vancomycin HCl 250 ml @ 125 mls/hr Q12H IV 04/28/25 20:00 05/02/25 20:34 DC 05/02/25 10:21 125 MLS/HR Vancomycin HCl 250 ml @ 125 mls/hr Q12H9 IV 05/04/25 21:00 05/08/25 20:49 DC 05/08/25 08:48 125 MLS/HR Vancomycin HCl (Vancomycin 750mg) 750 mg Q12H IVPB 05/08/25 21:00 05/09/25 13:30 DC 05/09/25 09:45 750 MG Vancomycin HCl (Vancomycin Protocol) 1 each AD IV 04/24/25 10:30 04/25/25 12:36 DC Vancomycin HCl (Vancomycin Protocol) 1 each AD IV 04/26/25 15:00 05/09/25 13:30 DC Venlafaxine HCl (EffEXOR XR 37.5mg CAP) 37.5 mg DAILY PO 04/24/25 16:00 05/05/25 11:18 DC 05/04/25 09:21 37.5 MG Venlafaxine HCl (EffEXOR XR 37.5mg CAP) 37.5 mg DAILY PO 04/25/25 09:00 04/24/25 14:50 DC Venlafaxine HCl (EffEXOR XR 37.5mg CAP) 37.5 mg HS PO 05/05/25 21:00 06/04/25 20:59 05/11/25 21:31 37.5 MG DIAGNOSTICS / RADIOLOGY: [facility] [address] [place] [address] IMAGING REPORT Signed PATIENT: LUCÍA CATALAN MR#: [id number] : 1970 SEX: F AGE: 54 LOCATION: 3CH ORDER 1243 STATUS: ADM IN REPORT#: [id number] SERVICE 1240 REASON: elevated LFT's + RUQ tenderness ORDERING PHYSICIAN: YOSHI ROSADO MD PROCEDURE: [id number] - US ABDOMINAL RUQ\LTD EXAMINATION: ULTRASOUND OF THE ABDOMEN (LIMITED) WITH COLOR DOPPLER. CLINICAL HISTORY: Elevated LFT and right upper quadrant pain. COMPARISON: Ultrasound of the abdomen dated 04/23/2025. TECHNIQUE: Real-time grayscale ultrasound images of the abdomen. In addition, color Doppler is medically necessary to perform in order to evaluate vascularity and blood flow. FINDINGS: Liver: Normal in caliber, the right hepatic lobe measures 13.2 cm in the craniocaudal dimension. There is coarse echotexture and surface nodularity of the hepatic parenchyma. There is no focal hepatic abnormality or intrahepatic biliary ductal dilatation. There is normal spectral Doppler of the main portal vein. Gallbladder: Post cholecystectomy status. Common bile duct is obscured by overlying bowel gas. Pancreas: Normal in caliber and echotexture. No calcification or dilated pancreatic duct. The right kidney is normal in caliber, the right kidney measures 8.3 x 5.1 x 4.2 cm in craniocaudal, AP, and transverse dimensions respectively. There is normal renal cortical thickness, and increased cortical echogenicity. There is no renal calculus or hydronephrosis. There is mild to moderate free fluid in the perihepatic region. IMPRESSION: Chronic hepatic disease. Post cholecystectomy status. Increased echogenicity of the right kidney may reflect renal parenchymal disease. Recommend clinical correlation and with laboratory parameters. Mild to moderate ascites. Interval appearance. Previously demonstrated liver lesion and right hydronephrosis are not visualized. /[place] DICTATED BY: BROOKLYN LOPEZ Jr., MD DATE: 05/12/25944 ELECTRONICALLY SIGNED BY: BROOKLYN LOPEZ Jr., MD DATE: 05/12/25944 [place] [address] [place] [id number] IMAGING REPORT Signed PATIENT: LUCÍA CATALAN MR#: [id number] : 1970 SEX: F AGE: 54 LOCATION: 3CH ORDER 1400 STATUS: ADM IN REPORT#: [id number] SERVICE 1356 REASON: Shoulder pain ORDERING PHYSICIAN: YOLANDA CHOW MD PROCEDURE: THEO RT WO - MR SHOULDER RIGHT WO CLINICAL INFORMATION Shoulder pain COMPARISON None. TECHNIQUE Multiplanar multisequence MR imaging of the right shoulder without contrast FINDINGS OSSEOUS AND ARTICULAR STRUCTURES Acromioclavicular joint: Mild degenerative changes. Glenohumeral joint: Mild cartilage thinning. Small joint effusion. Bones: No fracture or infiltrative marrow disorder. BURSAE Subacromial/subdeltoid bursa: Mild bursitis. Subcoracoid bursa: Normal. ROTATOR CUFF Supraspinatus: Tendinosis with high-grade partial-thickness bursal sided tear at the myotendinous junction. Infraspinatus: Tendinosis with low-grade partial-thickness bursal sided tear at the footplate. Subscapularis: Tendinosis without high-grade tear. Teres minor: No evidence for tear or tendinopathy. Musculature has normal bulk and signal intensity. LABRUM/CAPSULE Labrum: Diffuse mild degeneration. No acute focal tear. Glenohumeral ligaments: Intact, with mild thickening and edema of the maxillary pouch. MISCELLANEOUS Long head biceps tendon: Not well visualized, may be due to plane of imaging, prior tear or severe intra-articular tendinopathy. Rotator interval: Edema. Other: None. IMPRESSION Supraspinatus tendinosis with high-grade partial-thickness bursal sided tear at the myotendinous junction. Infraspinatus tendinosis with low-grade partial-thickness bursal sided tear at the footplate. Subscapularis tendinosis without high-grade tear. Mild acromioclavicular and glenohumeral osteoarthritis. Mild subacromial/subdeltoid bursitis. Findings which can be seen in the setting of adhesive capsulitis. 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 Suspected Endocarditis, RAMAN deferred due to bleeding risks; unable to rule out endocarditis Status post nephrostomy tube Rentae intertrigo Infectious spondylodiscitis L2-L3 Sepsis, unable to determine POA Acute hypoxic hypercapnic respiratory failure, not POA, resolved AMS due to suspected steroid induced psychosis or hepatic encephalopathy, not POA, resolved Hyperammonemia due to cirrhosis, resolved Intractable low back pain due to spinal stenosis POA Acute urinary tract infection due to MRSA POA Hypervolemic hyponatremia POA Chronic anemia POA Hyponatremia POA Acute kidney injury on renal insufficiency POA Hyperglycemia due to uncontrolled diabetes POA Hypocalcemia POA Cirrhotic liver with splenomegaly consistent with portal hypertension per CT POA Esophageal varices Renal parenchymal disease per CT POA Hypothyroidism POA Hyperlipidemia POA Hypertension POA Anxiety disorder POA Depression POA Restless leg syndrome POA Suspected obstructive sleep apnea untreated POA Morbid obesity POA PLAN: Persistent MRSA bacteremia, gram positive cocci positive as of 05/08/25 Osteomyelitis of L2-L3 POA PICC line has been removed Currently receiving daptomycin (Day 4) and ceftaroline (Day 4) per Infectious Disease (ID) recommendations. Monitor for creatine kinase level WBC tagged scan, awaiting the final reports MRI showed:Supraspinatus tendinosis with high-grade partial-thickness bursal sided tear at the myotendinous junction. Infraspinatus tendinosis with low-grade partial-thickness bursal sided tear at the footplate.Subscapularis tendinosis without high-grade tear.Mild acromioclavicular and glenohumeral osteoar thritis.Mild subacromial/subdeltoid bursitis.Findings which can be seen in the setting of adhesive capsulitis. LFT trending up with total bilirubin 2.2, AST 161, ALT 158 and ALT 451. Ultrasound revealed increased echogenicity of the right kidney which may reflect renal parenchymal disease. Maintain contact precautions for infection control. Repeat blood cultures per Infectious Disease protocol to monitor clearance of bacteremia. Patient will require a 6-week course of IV antibiotics; case management will assist with arranging appropriate placement for long-term IV therapy. Acute kidney injury Creatinine trending up from 1.2<1.5<1.8<1.9 We will get urine electrolytes and creatinine for FENa Consulted nephrology We will avoid nephrotoxic drugs including NSAID. Thrombocytopenia due to ITP DIC panel workup showed D dimer 7068, Fibrinogen 102, APTT 43.3, PT 16.9 and INR 1.68. We are giving vitamin K 10 mg today, also sending coagulation profile As per Dr Lorenzo, trying to get her Promacta when available (medicine that raises the platelets) V/Q scan unable to perform as she couldn't lie flat. Platelets has been transfused, but platelets is still 21K. Continue to follow Hematology recommendations for ongoing management of thrombocytopenia. Monitor platelet counts daily. Monitor for bleeding or thrombotic complications. Altered Mental Status due to Hepatic Encephalopathy or steroids induced psychosis, resolved Monitor ammonia levels, mental status, and signs of worsening encephalopathy. Monitor neuro status and reassess mental status regularly with steroid adjustments. Intractable lower back pain, resolving Per Dr. Sanchez, possible diagnosis of discitis and osteomyelitis at L2-L3 along with psoas inflammation. Continue multimodal pain management: acetaminophen, topical agents Pregabalin will be discontinued due to concern for possible medication-induced slurred speech. CT head showed no evidence of acute intracranial abnormalities. Neuro checks q4 Acute UTI, resolved Monitor for signs of urosepsis Encourage hydration and bladder care Hyponatremia, resolved Monitor serum Na closely; consider fluid restriction if dilutional. Renate intertrigo, resolved Patient is improved significantly The patient was given fluconazole 150 mg 1 dose today, gradually resolving Cirrhosis with portal hypertension Fecal occult blood test positive Liver functions improving Monitor for decompensation: encephalopathy, ascites, variceal bleeding. Consider beta sergio for variceal prophylaxis. Monitor LFTs, INR, and ammonia Her MELD- Na score is 24 points, 14-15% estimated 90 day mortality Hyperglycemia (Uncontrolled Diabetes) Lantus is 40 units daily as per endocrinology recommendations, and continue for regular insulin 10 units TIDAC before meals. Blood glucose level is trending down from 244 to 162 Monitor blood glucose QID Educate on diet and insulin compliance; monitor for DKA if concern. Correct electrolytes accordingly. Chronic anemia H/o esophageal varices due to cirrhosis with portal hypertension Per GI, hold off on EGD given no overt GI bleeding and stable hemoglobin Monitor trends, H&H daily Avoid transfusion unless symptomatic or Hgb <7. We will order morning labs. Further orders per hospitalization course. ATTESTATION BY PHYSICIAN I have seen and examined the patient. I reviewed the documentation, medical decision making, and treatment plan as noted by the resident provider above. I agree with the findings and plan of care. Cory Pimentel MD [facility],YOLANDA PERSAUD May 12, 2025 09:55
[2025-05-12 13:06] LABS: CREATININE,URINE RANDOM 85.06 mg/dL (30-135)
--- NOTE | 2025-05-12 16:30 | PN ---
endocrinology progress note Date of Service: May 12, 2025 subjective: glucose are improving and off steroid now. hba1c 9.2, home regimen: lantus 30 units daily and humalog 10 units tid before meals. patient glucose are improving. s/p right nephrostomy tube, thrombocytopenia, UTI and gram positive. Bacteremia. liver cirrhosis. PAST MEDICAL HISTORY: [undiagnosed obstructive sleep apnea, diabetes type 2, hypertension, hyperlipidemia, hypothyroidism, restless leg syndrome, anxiety disorder,depression, lupus and severe morbid obesity ] PAST SURGICAL HISTORY: [ Cholecystectomy, tubal ligation] PAST SOCIAL HISTORY: [ Patient lives with . Patient denies alcohol tobacco and recreational drug use] FAMILY HISTORY: [ Hypertension, diabetes, cardiovascular disease and Alzheimer's disease ] Coded Allergies: No Known Allergies (Unverified Allergy, Unknown, 08/26/14) ASSESSMENT: glucose are improving and off steroid now. hba1c 9.2, home regimen: lantus 30 units daily and humalog 10 units tid before meals. Intractable low back pain POA L2/L3 OSTEOMYELITIS Acute thrombocytopenia POA s/p IVIG Acute urinary tract infection POA On antibiotics. Bacteremia, MRSA on antibiotics. right kidney hydronephrosis s/p right nephrostomy tube Chronic anemia POA Hyponatremia POA improved Acute kidney injury on renal insufficiency POA improving Hypocalcemia POA stable Cirrhotic liver with splenomegaly consistent with portal hypertension per CT POA Renal parenchymal disease per CT POA Hypothyroidism POA ON LEVOTHYROXINE Hyperlipidemia POA Hypertension POA Anxiety disorder POA Depression POA Restless leg syndrome POA Suspected obstructive sleep apnea untreated POA Morbid obesity POA PLAN: continue lantus 40 units daily continue regular insulin 10 units qac before meals continue medium dose ssi monitor glucose qx6 hourly continue levothyroxine 125 mcg daily. Vitals/Labs Vital Signs Date Time Temp Pulse Resp B/P (MAP) Pulse Ox O2 Delivery O2 Flow Rate FiO2 05/12/25 12:00 98.4 74 18 134/55 97 Room Air 05/11/25 20:00 0 21 Laboratory Tests 05/12/25 04:44 Medications Current Medications Sodium Chloride 1,000 ml @ 0 mls/hr ONCE ONCE IV Last administered on 04/22/25at 17:27; Start 04/22/25 at 17:00; Stop 04/22/25 at 17:01; Status DC Ceftriaxone Sodium 1 gm ONCE ONCE IVPB Last administered on 04/22/25at 19:43; Start 04/22/25 at 19:00; Stop 04/22/25 at 19:01; Status DC Acetaminophen 650 mg Q6H PRN PO Last administered on 04/23/25at 10:02; Start 04/22/25 at 20:00; Stop 05/22/25 at 19:59 Acetaminophen 650 mg Q4H PRN PO Last administered on 05/11/25at 21:31; Start 04/22/25 at 20:00; Stop 05/22/25 at 19:59 Ondansetron HCl 4 mg Q6H PRN IV Last administered on 04/22/25at 20:10; Start 04/22/25 at 20:00; Stop 05/22/25 at 19:59 Famotidine 20 mg DAILY PO Last administered on 04/23/25at 09:33; Start 04/23/25 at 09:00; Stop 04/24/25 at 09:48; Status DC Ceftriaxone Sodium 1 gm/ Sodium Chloride 50 ml @ 100 mls/hr BID IV; Start 04/22/25 at 21:00; Stop 04/22/25 at 19:59; Status DC Lactated Ringer's 1,000 ml @ 100 mls/hr Q10H IV Last administered on 04/23/25at 06:00; Start 04/22/25 at 20:00; Stop 04/23/25 at 10:09; Status DC Insulin Human Regular INSULIN SLIDING SCAL... ACHS SQ Last administered on 04/24/25at 11:18; Start 04/22/25 at 21:00; Stop 04/24/25 at 16:16; Status DC Dextrose 50 ml AD PRN IV; Start 04/22/25 at 20:00; Stop 05/22/25 at 19:59 Glucagon 1 mg AD PRN IM; Start 04/22/25 at 20:00; Stop 05/22/25 at 19:59 Magnesium Sulfate 50 ml @ 0 mls/hr PROTOCOL PRN IV; Start 04/22/25 at 20:00; Stop 05/22/25 at 19:59 Potassium Chloride 100 ml @ 100 mls/hr AD PRN IV; Start 04/22/25 at 20:00; Stop 05/22/25 at 19:59 Potassium Chloride 20 meq AD PRN PO; Start 04/22/25 at 20:00; Stop 05/22/25 at 19:59 Potassium Chloride 20 meq AD PRN PO Last administered on 05/03/25at 13:10; Start 04/22/25 at 20:00; Stop 05/22/25 at 19:59 Ceftriaxone Sodium 1 gm BID IVPB; Start 04/22/25 at 21:00; Stop 04/22/25 at 20:44; Status DC Morphine Sulfate 4 mg ONCE ONCE IVP Last administered on 04/22/25at 20:11; Start 04/22/25 at 20:30; Stop 04/22/25 at 20:31; Status DC Lidocaine 1 each ONCE ONCE TP Last administered on 04/22/25at 21:14; Start 04/22/25 at 21:00; Stop 04/22/25 at 21:01; Status DC Ceftriaxone Sodium 1 gm BID IVPB Last administered on 04/25/25at 09:44; Start 04/23/25 at 09:00; Stop 04/25/25 at 12:36; Status DC Methylprednisolone Sodium Succinate 125 mg Q6H IVP Last administered on 04/25/25at 09:45; Start 04/23/25 at 08:00; Stop 04/28/25 at 09:10; Status DC Albuterol Sulfate 1.25 ONCE ONCE IH Last administered on 04/23/25at 09:40; Start 04/23/25 at 09:30; Stop 04/23/25 at 09:31; Status DC Calcium Gluconate 1 gm ONCE ONCE IV Last administered on 04/23/25at 10:55; Start 04/23/25 at 10:30; Stop 04/23/25 at 10:31; Status DC Sodium Chloride 50 ml @ 0 mls/hr ONCE ONCE IV Last administered on 04/23/25at 11:00; Start 04/23/25 at 11:00; Stop 04/23/25 at 11:01; Status DC Sodium Zirconium Cyclosilicate 10 gm ONCE ONCE PO Last administered on 04/23/25at 14:14; Start 04/23/25 at 14:00; Stop 04/23/25 at 16:08; Status DC Hydromorphone HCl 0.5 mg Q6H PRN IVP Last administered on 04/25/25at 04:14; Start 04/23/25 at 14:00; Stop 04/25/25 at 08:25; Status DC Sodium Zirconium Cyclosilicate 10 gm TID PO; Start 04/23/25 at 21:00; Stop 04/23/25 at 14:11; Status DC Pantoprazole Sodium 40 mg DAILY IVP Last administered on 05/10/25at 09:09; Start 04/24/25 at 10:00; Stop 05/11/25 at 08:11; Status DC Pregabalin 75 mg BID PO; Start 04/24/25 at 21:00; Stop 04/24/25 at 14:49; Status DC Vancomycin HCl 1 each AD IV; Start 04/24/25 at 10:30; Stop 04/25/25 at 12:36; Status DC Vancomycin HCl 500 ml @ 250 mls/hr ONCE ONCE IV Last administered on 04/24/25at 12:46; Start 04/24/25 at 11:00; Stop 04/24/25 at 12:59; Status DC Vancomycin HCl 250 ml @ 125 mls/hr Q12H IV Last administered on 04/25/25at 11:43; Start 04/24/25 at 23:00; Stop 04/25/25 at 12:36; Status DC Insulin Glargine 10 units HS SQ; Start 04/24/25 at 21:00; Stop 04/24/25 at 16:57; Status DC Insulin Glargine 10 units ONCE STAT SQ Last administered on 04/24/25at 11:19; Start 04/24/25 at 10:54; Stop 04/24/25 at 11:00; Status DC Atorvastatin Calcium 20 mg HS PO Last administered on 05/11/25at 21:31; Start 04/24/25 at 21:00; Stop 05/24/25 at 20:59 Gabapentin 300 mg BID PO Last administered on 04/25/25at 21:51; Start 04/24/25 at 21:00; Stop 04/28/25 at 09:10; Status DC Levothyroxine Sodium 125 mcg DAILY@0630 PO Last administered on 05/12/25at 04:24; Start 04/25/25 at 06:30; Stop 05/25/25 at 06:29 Metoprolol Succinate 50 mg AM PO Last administered on 05/12/25at 09:13; Start 04/25/25 at 09:00; Stop 05/25/25 at 08:59 Venlafaxine HCl 37.5 mg DAILY PO; Start 04/25/25 at 09:00; Stop 04/24/25 at 14:50; Status DC Pramipexole Dihydrochloride 0.5 mg HS PO Last administered on 05/11/25at 21:30; Start 04/24/25 at 21:00; Stop 05/24/25 at 20:59 Venlafaxine HCl 37.5 mg DAILY PO Last administered on 05/04/25at 09:21; Start 04/24/25 at 16:00; Stop 05/05/25 at 11:18; Status DC Insulin Human Regular INSULIN SLIDING SCAL... ACHS SQ Last administered on 04/25/25at 11:57; Start 04/24/25 at 16:30; Stop 04/25/25 at 14:09; Status DC Insulin Glargine 15 units HS SQ; Start 04/24/25 at 21:00; Stop 04/24/25 at 17:06; Status DC Insulin Human Regular 5 unit TIDAC SQ; Start 04/24/25 at 17:00; Stop 04/24/25 at 17:06; Status DC Insulin Glargine 30 units ONCE SQ Last administered on 04/24/25at 18:16; Start 04/24/25 at 17:00; Stop 04/25/25 at 06:19; Status DC Insulin Human Regular 10 unit TIDAC SQ Last administered on 04/25/25at 06:15; Start 04/24/25 at 17:00; Stop 04/25/25 at 06:17; Status DC Tramadol HCl 50 mg Q6H PRN PO Last administered on 04/28/25at 13:55; Start 04/24/25 at 22:30; Stop 04/29/25 at 22:29; Status DC Insulin Human Regular 25 unit TIDAC SQ Last administered on 04/25/25at 17:39; Start 04/25/25 at 07:30; Stop 04/26/25 at 07:58; Status DC Insulin Glargine 70 units ONCE ONCE SQ Last administered on 04/25/25at 06:27; Start 04/25/25 at 06:30; Stop 04/25/25 at 06:31; Status DC Hydromorphone HCl 0.5 mg BIDPRN PRN IVP Last administered on 04/29/25at 23:31; Start 04/25/25 at 19:00; Stop 04/30/25 at 11:59; Status DC Heparin Sodium (Porcine) 5,000 unit Q8H SQ; Start 04/25/25 at 09:00; Stop 04/25/25 at 08:40; Status DC Lactulose 30 gm TID PO Last administered on 04/30/25at 09:16; Start 04/25/25 at 11:00; Stop 04/30/25 at 09:45; Status DC Sodium Chloride 500 ml @ 0 mls/hr Q0M IV; Start 04/25/25 at 11:00; Stop 05/25/25 at 10:59 Trimethoprim/ Sulfamethoxazole 1 tab BID PO Last administered on 04/25/25at 21:51; Start 04/25/25 at 21:00; Stop 04/26/25 at 14:50; Status DC Insulin Human Regular INSULIN SLIDING SCAL... ACHS SQ Last administered on 05/04/25at 20:49; Start 04/25/25 at 16:30; Stop 05/04/25 at 23:42; Status DC Diazepam 10 mg ONCE ONCE IM; Start 04/25/25 at 15:00; Stop 04/25/25 at 15:01; Status DC Lactulose 200 gm ONCE ONCE [place] Last administered on 04/25/25at 17:30; Start 04/25/25 at 16:30; Stop 04/25/25 at 16:31; Status DC Lorazepam 0.5 mg ONCE ONCE PO Last administered on 04/25/25at 19:07; Start 04/25/25 at 19:00; Stop 04/25/25 at 19:01; Status DC Haloperidol Lactate 1 mg ONCE ONCE IM Last administered on 04/26/25at 05:17; Start 04/26/25 at 05:00; Stop 04/26/25 at 05:02; Status DC Insulin Human Regular 15 unit TIDAC SQ; Start 04/26/25 at 11:30; Stop 04/27/25 at 20:30; Status DC Insulin Glargine 50 units DAILY SQ Last administered on 04/28/25at 08:46; Start 04/26/25 at 09:00; Stop 04/29/25 at 06:49; Status DC Dextrose 1,000 ml @ 75 mls/hr [id number] IV Last administered on 04/29/25at 04:27; Start 04/26/25 at 12:00; Stop 04/30/25 at 09:36; Status DC Dexmedetomidine/ Sodium Chloride 200 mcg PROTOCOL IV; Start 04/26/25 at 12:00; Stop 04/26/25 at 14:54; Status DC Dexmedetomidine/ Sodium Chloride 400 mcg STK-MED ONCE IV; Start 04/26/25 at 14:49; Stop 04/26/25 at 14:50; Status DC Vancomycin HCl 1 each AD IV; Start 04/26/25 at 15:00; Stop 05/09/25 at 13:30; Status DC Dexmedetomidine/ Sodium Chloride 400 mcg PROTOCOL STAT IV Last administered on 04/26/25at 15:18; Start 04/26/25 at 14:53; Stop 04/26/25 at 14:58; Status DC Vancomycin HCl 250 ml @ 125 mls/hr Q12H IV Last administered on 04/27/25at 15:22; Start 04/26/25 at 15:30; Stop 04/28/25 at 03:13; Status DC Dexmedetomidine/ Sodium Chloride 400 mcg PROTOCOL PRN IV Last administered on 04/27/25at 23:31; Start 04/26/25 at 19:30; Stop 05/01/25 at 12:45; Status DC Dexmedetomidine/ Sodium Chloride 400 mcg STK-MED ONCE IV Last administered on 04/26/25at 19:14; Start 04/26/25 at 19:10; Stop 04/26/25 at 19:11; Status DC Insulin Human Regular INSULIN SLIDING SCAL... Q4H SQ Last administered on 04/28/25at 06:00; Start 04/27/25 at 20:30; Stop 04/28/25 at 09:11; Status DC Vancomycin HCl 250 ml @ 125 mls/hr Q12H IV; Start 04/28/25 at 15:30; Stop 04/28/25 at 18:53; Status DC Insulin Human Regular 8 unit TIDAC SQ Last administered on 04/30/25at 06:15; Start 04/28/25 at 07:30; Stop 04/30/25 at 07:31; Status DC Vancomycin HCl 250 ml @ 125 mls/hr Q12H IV Last administered on 05/02/25at 10:21; Start 04/28/25 at 20:00; Stop 05/02/25 at 20:34; Status DC Insulin Glargine 40 units DAILY SQ; Start 04/29/25 at 09:00; Stop 04/30/25 at 07:31; Status DC Lidocaine HCl 50 ml STK-MED ONCE .ROUTE; Start 04/29/25 at 16:03; Stop 04/29/25 at 16:06; Status DC Heparin Sodium/ Sodium Chloride 500 ml @ As Directed STK-MED ONCE IV; Start 04/29/25 at 16:03; Stop 04/29/25 at 16:06; Status DC Iodixanol 100 ml STK-MED ONCE .ROUTE; Start 04/29/25 at 16:04; Stop 04/29/25 at 16:06; Status DC Fentanyl Citrate 100 mcg STK-MED ONCE .ROUTE; Start 04/29/25 at 16:27; Stop 04/29/25 at 16:28; Status DC Midazolam HCl 2 mg STK-MED ONCE .ROUTE; Start 04/29/25 at 16:28; Stop 04/29/25 at 16:28; Status DC Midazolam HCl 2 mg STK-MED ONCE .ROUTE; Start 04/29/25 at 16:52; Stop 04/29/25 at 16:52; Status DC Lidocaine 1 each ONCE ONCE TP Last administered on 04/29/25at 19:18; Start 04/29/25 at 18:30; Stop 04/29/25 at 18:33; Status DC Insulin Glargine 50 units DAILY SQ Last administered on 05/04/25at 09:30; Start 04/30/25 at 09:00; Stop 05/05/25 at 07:21; Status DC Insulin Human Regular 12 unit TIDAC SQ Last administered on 05/02/25at 06:45; Start 04/30/25 at 07:30; Stop 05/02/25 at 08:05; Status DC Hydromorphone HCl 1 mg TIDP PRN IVP Last administered on 04/30/25at 20:44; Start 04/30/25 at 13:00; Stop 05/01/25 at 18:46; Status DC Acetaminophen/ Hydrocodone Bitart 1 tab Q4H PRN PO Last administered on 04/30/25at 22:07; Start 04/30/25 at 12:00; Stop 05/05/25 at 11:59; Status DC Pharmacy Profile Note 1 each ONCE MISC; Start 05/01/25 at 08:00; Stop 04/30/25 at 16:52; Status DC Immune Globulin 400 ml @ 0 mls/hr Q24H IV Last administered on 05/01/25at 16:18; Start 05/01/25 at 14:00; Stop 05/02/25 at 12:38; Status DC Pregabalin 25 mg BID PO Last administered on 05/04/25at 09:22; Start 05/01/25 at 21:00; Stop 05/05/25 at 07:22; Status DC Lisinopril 10 mg DAILY PO Last administered on 05/12/25at 09:13; Start 05/02/25 at 09:00; Stop 06/01/25 at 08:59 Diphenhydramine HCl 25 mg ONCE PRN IVP; Start 05/01/25 at 15:00; Stop 05/01/25 at 15:06; Status DC Dexamethasone Sodium Phosphate 20 mg ONCE PRN IV; Start 05/01/25 at 15:00; Stop 05/01/25 at 15:05; Status DC Dexamethasone Sodium Phosphate 20 mg ONCALL IV Last administered on 05/02/25at 15:41; Start 05/01/25 at 15:30; Stop 05/03/25 at 15:31; Status DC Diphenhydramine HCl 25 mg ONCALL IVP Last administered on 05/02/25at 15:41; Start 05/01/25 at 15:30; Stop 05/03/25 at 15:31; Status DC Hydromorphone HCl 1 mg TID PRN IVP; Start 05/01/25 at 19:00; Stop 05/05/25 at 12:59; Status DC Insulin Human Regular 15 unit TIDAC SQ Last administered on 05/04/25at 17:33; Start 05/02/25 at 11:30; Stop 05/05/25 at 07:21; Status DC Immune Globulin 400 ml @ 0 mls/hr Q24H IV Last administered on 05/02/25at 16:46; Start 05/02/25 at 16:00; Stop 05/03/25 at 16:01; Status DC Vancomycin HCl 250 ml @ 125 mls/hr Q12H9 IV Last administered on 05/08/25at 08:48; Start 05/04/25 at 21:00; Stop 05/08/25 at 20:49; Status DC Pharmacy Profile Note 1 each ONCE MISC; Start 05/03/25 at 12:00; Stop 05/03/25 at 12:58; Status DC Gentamicin Sulfate/Sodium Chloride 100 ml @ 200 mls/hr Q24H IV Last administered on 05/08/25at 14:18; Start 05/03/25 at 14:00; Stop 05/08/25 at 21:01; Status DC Dexamethasone Sodium Phosphate 20 mg ONCALL IV Last administered on 05/03/25at 17:23; Start 05/03/25 at 17:15; Stop 05/03/25 at 17:16; Status DC Diphenhydramine HCl 25 mg ONCALL IVP Last administered on 05/03/25at 17:22; Start 05/03/25 at 17:15; Stop 05/03/25 at 17:16; Status DC Immune Globulin 400 ml @ 0 mls/hr Q24H IV Last administered on 05/03/25at 17:57; Start 05/03/25 at 17:15; Stop 05/03/25 at 17:16; Status DC Fluconazole 150 mg ONCE ONCE PO Last administered on 05/04/25at 15:57; Start 05/04/25 at 15:30; Stop 05/04/25 at 15:31; Status DC Insulin Human Regular INSULIN SLIDING SCAL... ACHS SQ Last administered on 05/11/25at 05:46; Start 05/05/25 at 07:30; Stop 06/04/25 at 07:29 Insulin Glargine 30 units DAILY SQ Last administered on 05/07/25at 08:12; Start 05/05/25 at 09:00; Stop 05/07/25 at 23:47; Status DC Insulin Human Regular 12 unit TIDAC SQ; Start 05/05/25 at 07:30; Stop 05/05/25 at 22:51; Status DC Venlafaxine HCl 37.5 mg HS PO Last administered on 05/11/25at 21:31; Start 05/05/25 at 21:00; Stop 06/04/25 at 20:59 Insulin Human Regular 10 unit TIDAC SQ Last administered on 05/07/25at 16:06; Start 05/06/25 at 07:30; Stop 05/07/25 at 23:47; Status DC Dexamethasone Sodium Phosphate 10 mg ONCE ONCE IVP Last administered on 05/06/25at 20:20; Start 05/06/25 at 20:00; Stop 05/06/25 at 20:04; Status DC Diphenhydramine HCl 25 mg ONCE ONCE IV Last administered on 05/06/25at 20:20; Start 05/06/25 at 20:00; Stop 05/06/25 at 20:04; Status DC Insulin Glargine 40 units DAILY SQ Last administered on 05/12/25at 09:15; Start 05/08/25 at 09:00; Stop 06/07/25 at 08:59 Insulin Human Regular 15 unit TIDAC SQ Last administered on 05/08/25at 17:16; Start 05/08/25 at 07:30; Stop 05/09/25 at 06:24; Status DC Vancomycin HCl 750 mg Q12H IVPB Last administered on 05/09/25at 09:45; Start 05/08/25 at 21:00; Stop 05/09/25 at 13:30; Status DC Gentamicin Sulfate/Sodium Chloride 100 ml @ 200 mls/hr Q12H IV Last administered on 05/09/25at 01:36; Start 05/09/25 at 02:00; Stop 05/09/25 at 13:30; Status DC Insulin Human Regular 18 unit TIDAC SQ Last administered on 05/09/25at 06:49; Start 05/09/25 at 07:30; Stop 05/10/25 at 09:56; Status DC Heparin Sodium (Porcine) 5,000 unit STK-MED ONCE .ROUTE Last administered on 05/09/25at 10:07; Start 05/09/25 at 09:57; Stop 05/09/25 at 09:57; Status DC Pharmacy Profile Note 1 each ONCE MISC; Start 05/09/25 at 13:00; Stop 05/09/25 at 13:42; Status DC Nystatin apply abdominal fold/perineum BID TP Last administered on 05/12/25at 09:13; Start 05/09/25 at 21:00; Stop 06/08/25 at 20:59 Daptomycin 1000 mg/Sodium Chloride 100 ml @ 200 mls/hr Q24H IV Last administered on 05/11/25at 16:20; Start 05/09/25 at 15:00; Stop 05/19/25 at 14:59 Ceftaroline Fosamil 400 mg/ Sodium Chloride 250 ml @ 250 mls/hr Q12H IV Last administered on 05/12/25at 04:24; Start 05/09/25 at 17:00; Stop 05/19/25 at 16:59 Insulin Human Regular 10 unit TIDAC SQ Last administered on 05/11/25at 12:10; Start 05/10/25 at 11:30; Stop 06/09/25 at 11:29 Diphenhydramine HCl 25 mg ONCE ONCE IV Last administered on 05/11/25at 01:55; Start 05/11/25 at 02:00; Stop 05/11/25 at 02:01; Status DC Lidocaine 1 patch ONCE ONCE TP Last administered on 05/11/25at 05:34; Start 05/11/25 at 05:30; Stop 05/11/25 at 05:32; Status DC Pantoprazole Sodium 40 mg DAILY PO Last administered on 05/12/25at 09:13; Start 05/11/25 at 09:00; Stop 06/10/25 at 08:59 Tramadol HCl 50 mg Q6H PRN PO Last administered on 05/11/25at 21:59; Start 05/11/25 at 22:00; Stop 05/16/25 at 21:59 Lidocaine 1 patch Q24H TP; Start 05/12/25 at 05:00; Stop 06/11/25 at 04:59 Phytonadione 10 mg/Sodium Chloride 51 ml @ 100 mls/hr ONCE ONCE IVPB; Start 05/12/25 at 16:00; Stop 05/12/25 at 16:30 PARAG VANG MD May 12, 2025 16:30
[2025-05-12] MEDS: PHYTONADIONE 10 MG in 0.9%NACL 50ML 50 ML IVPB ONE (16:53)
[2025-05-12] MEDS ORDERED: GADOTERATE MEGLUMINE 10 MMOL/20 ML VIAL IV ONE (17:55)
--- NOTE | 2025-05-12 18:30 | NUR ---
NURSE NOTE. PATIENT RETURNED TO FLOOR FROM RADIOLOGY FOR PENDING MRI AND WBC TAGGED SCAN TEST. IV INFILTRATED. UNABLE TO FLUSH. ATTEMPTED X2 TIMES FOR IV INSERTION. UNSUCCESSFUL. CHARGE NURSE MAYUR MANCERA NOTIFIED. WILL ATTEMPT TO PLACE BY CHARGE. ONCOMING NURSE NOTIFIED WELL OF INFILTRATED IV, VOICED UNDERSTANDING. WILL CONTINUE TO MONITOR.
[2025-05-12] MEDS: DAPTOMYCIN IV SCH (18:40)
[2025-05-12] MEDS: [UNRECOGNIZED DRUG - OTHER] IV SCH (18:40)
--- NOTE | 2025-05-12 21:59 | PN ---
INFECTIOUS DISEASE PROGRESS NOTE Date of Service: May 12, 2025 SUBJECTIVE: Patient was seen at bedside in room 314. Patient is awake, alert and oriented. Some hematuria observe in the Nolasco catheter tubing. Patient denied painful urination. Patient is afebrile, temperature is 98.4. Patient remains thrombocytopenic with platelets of 21. Blood cultures repeated today and we will follow up on the results. Continue on daptomycin and Teflaro IV. No episodes of nausea or vomiting reported. We will continue to follow patient's care. PHYSICAL EXAM EYES: Anicteric. Pupils equal and reactive. HENT: No oral thrush seen, moist Oral mucosa NECK: Supple, no JVD or thyromegaly. LUNGS: Good air entry. No rales, no rhonchi. CARDIOVASCULAR: S1, S2 regular. No murmur heard. ABDOMEN: Soft, non tender, bowel sounds present, no organomegaly. SKIN: No rashes, no swelling. LYMPHATICS: No peripheral lymphadenopathy MUSCULOSKELETAL: No joint swelling, erythema or tenderness. EXTREMITIES: No cyanosis or clubbing. Generalized weakness. BACK: No deformity, no pressure ulcer. Right nephrostomy tube. GENITOURINARY: No dysuria or hematuria, Nolasco catheter. Vital Sign (Last 12 Hours) 05/12/25 05/12/25 05/12/25 12:00 16:00 20:41 Temp 98.4 97.7 98.4 Pulse 74 74 76 Resp 18 18 17 B/P (MAP) 134/55 134/60 127/46 Pulse Ox 97 95 97 O2 Delivery Room Air Room Air Room Air LABS: Laboratory: Test 05/12/25 20:03 05/12/25 12:35 05/12/25 04:44 05/11/25 18:55 Range/Units Whole Blood Glucose 179 H 70-110 MG/DL Urine Random Creatinine 85.06 30-135 mg/dL Urine Random Sodium 19 L 40-220 mmol/l Urine Random Potassium 34 25-125 mmol/L Urine Random Chloride 32 L 110-250 mmol/L White Blood Count 8.4 4.8-10.8 K/uL Red Blood Count 3.19 L 4.00-5.50 MIL/uL Hemoglobin 8.4 L 12.0-16.0 g/dL Hematocrit 27.0 L 36-48 % Mean Corpuscular Volume 84.6 79-99 fL Mean Corpuscular Hemoglobin 26.3 L 27.0-33.0 pg Mean Corpuscular Hemoglobin Concent 31.1 L 32.0-36.0 g/dL Red Cell Distribution Width 25.7 H 11.0-15.5 % Platelet Count 21 L 130-400 K/uL Mean Platelet Volume 7.5-10.5 fL Immature Granulocyte % (Auto) 1.3 H 0-1 % Neutrophils (%) (Auto) 82.0 H 40.0-77.0 % Lymphocytes (%) (Auto) 6.4 L 21.0-51.0 % Monocytes (%) (Auto) 8.4 3.0-13.0 % Eosinophils (%) (Auto) 1.8 0.0-8.0 % Basophils (%) (Auto) 0.1 0.0-5.0 % Neutrophils # (Auto) 6.9 1.8-7.7 K/uL Lymphocytes # (Auto) 0.5 L 1.0-4.8 K/uL Monocytes # (Auto) 0.7 0.1-1.0 K/uL Eosinophils # (Auto) 0.15 0.00-0.70 K/uL Basophils # (Auto) 0.01 0.00-0.20 K/uL Absolute Immature Granulocyte (auto 0.11 0-1 K/uL Nucleated Red Blood Cells 0.0 0.0-0.19 % Prothrombin Time 17.0 H 9.6-11.6 SEC Prothromb Time International Ratio 1.69 H 0.85-1.15 Activated Partial Thromboplast Time 43.6 H 26.3-35.5 SEC Fibrinogen 117 L 180-350 mg/dL Sodium Level 133 L 136-145 mmol/L Potassium Level 4.9 3.5-5.1 mmol/L Chloride Level 103 101-111 mmol/L Carbon Dioxide Level 24 21-32 mmol/L Blood Urea Nitrogen 44 H 7-18 mg/dL Creatinine 1.9 H 0.5-1.0 mg/dL Glomerular Filtration Rate Calc 31 >90 mL/min Random Glucose 162 H 70-105 mg/dL Total Calcium 8.2 L 8.5-10.1 mg/dL Phosphorus Level 4.3 2.5-4.9 mg/dL Magnesium Level 1.90 1.80-2.40 mg/dL Total Bilirubin 2.2 H 0.2-1.0 mg/dL Aspartate Amino Transf (AST/SGOT) 161 H 10-37 U/L Alanine Aminotransferase (ALT/SGPT) 158 H 12-78 U/L Alkaline Phosphatase 451 H 50-136 U/L Total Creatine Kinase 383 #H 21-232 U/L Total Protein 7.5 6.0-8.3 g/dL Albumin 1.4 L 3.5-5.0 g/dL D-Dimer Quantitative (PE/DVT) 7068 *H 0-500 ng/mL Test 05/11/25 04:41 Range/Units Segmented Neutrophils % 96 H 40-70 % Lymphocytes % (Manual) 2 L 22-44 % Monocytes % (Manual) 2 2-9 % Differential Comment MANUAL DIFFERENTIAL White Cell Morphology Comment Platelet Morphology Comment MARKED DECREASE Red Blood Cell Morphology See comments ASSESSMENT: Methicillin-resistant Staphylococcus aureus bacteremia. Urinary tract infection with methicillin-resistant Staphylococcus aureus. L2 and L3 intervertebral disc osteomyelitis.. Right Hydronephrosis, s/p right nephrostomy tube placement on 04/29/2025. Non-ketotic hyperglycemia. Urinary retention requiring Nolasco catheter placement. Morbid obesity. Thrombocytopenia requiring platelet transfusion.. Diabetes mellitus. Debility. PLAN: Continue daptomycin IV Continue Teflaro IV. We will follow up on the blood cultures repeated today. Continue GI prophylaxis. Continue pain management. Continue antidiabetic. Case management working on placement to [facility]. Patient will need 6 weeks of IV antibiotics. Continue physical therapy. This case was reviewed and discussed with my supervising physician and the above assessment and plan was formulated and agreed upon. ATTESTATION BY PHYSICIAN I have seen and examined the patient. I reviewed the documentation, medical decision making, and treatment plan as noted by the mid-level provider above. I agree with the findings and plan of care. EDNA SOARES MD, [facility] May 12, 2025 21:59
--- NOTE | 2025-05-12 23:18 | PN ---
GASTROENTEROLOGY PROGRESS NOTE Date of Visit: May 12, 2025 Time of Visit: 23:17 Events / Notes: [ ] Review of Systems: CONSTITUTIONAL: No malaise or change in sensation of wellbeing. ENMT: No rhinorrhea, otorrhea, sinus pain, ear ache. CARDIOVASCULAR: No angina, palpitations, orthopnea or paroxysmal dyspnea. RESPIRATORY: No SOB. GASTROINTESTINAL: No abdominal pain, nausea, vomiting, diarrhea, hematemesis, melena or change in the patient's habitual bowel movements consistency/number. GENITOURINARY: No dysuria, hematuria or change in bladder continence. MUSCULOSKELETAL: No new muscle pain or decrease in muscular strength. No new joint swelling, redness or tenderness. SKIN: No new rash. Physical Exam: GEN: Awake, alert, oriented in person, time and place, and in no acute distress. HEENT: No sinus tenderness. Tympanic membranes were not examined. No rhinorrhea. Oral pharyngeal mucosa is pink, moist and within normal limits. Neck is supple with no cervical lymphadenopathy, thyromegaly or JVD. CHEST: Inspection, palpation and percussion of the chest were unremarkable. Lung auscultation revealed normal breath sounds bilaterally. CARDIAC: PMI is within normal limits. Heart sounds are regular. Normal S1, S2. No gallop or murmur. ABD: Soft, non-tender and not distended. No peritoneal signs on palpation. No organomegaly. Normal bowel sounds. EXT: No cyanosis or clubbing. No edema. SKIN: Intact. No rashes. JOINTS: No evidence of synovitis or acute arthritis. NEURO: Alert and oriented to name, place and person. Cranial nerve examination is unremarkable. No focal motor deficits. Normal speech. Gait is normal. Strength is normal. Vital Signs (last 8hr) Date Time Temp Pulse Resp B/P (MAP) Pulse Ox O2 Delivery O2 Flow Rate FiO2 05/12/25 20:41 98.4 76 17 127/46 97 Room Air 05/12/25 16:00 97.7 74 18 134/60 95 Room Air Laboratory: [ ] Laboratory: Test 05/12/25 20:03 05/12/25 12:35 05/12/25 04:44 05/11/25 18:55 Range/Units Whole Blood Glucose 179 H 70-110 MG/DL Urine Random Creatinine 85.06 30-135 mg/dL Urine Random Sodium 19 L 40-220 mmol/l Urine Random Potassium 34 25-125 mmol/L Urine Random Chloride 32 L 110-250 mmol/L White Blood Count 8.4 4.8-10.8 K/uL Red Blood Count 3.19 L 4.00-5.50 MIL/uL Hemoglobin 8.4 L 12.0-16.0 g/dL Hematocrit 27.0 L 36-48 % Mean Corpuscular Volume 84.6 79-99 fL Mean Corpuscular Hemoglobin 26.3 L 27.0-33.0 pg Mean Corpuscular Hemoglobin Concent 31.1 L 32.0-36.0 g/dL Red Cell Distribution Width 25.7 H 11.0-15.5 % Platelet Count 21 L 130-400 K/uL Mean Platelet Volume 7.5-10.5 fL Immature Granulocyte % (Auto) 1.3 H 0-1 % Neutrophils (%) (Auto) 82.0 H 40.0-77.0 % Lymphocytes (%) (Auto) 6.4 L 21.0-51.0 % Monocytes (%) (Auto) 8.4 3.0-13.0 % Eosinophils (%) (Auto) 1.8 0.0-8.0 % Basophils (%) (Auto) 0.1 0.0-5.0 % Neutrophils # (Auto) 6.9 1.8-7.7 K/uL Lymphocytes # (Auto) 0.5 L 1.0-4.8 K/uL Monocytes # (Auto) 0.7 0.1-1.0 K/uL Eosinophils # (Auto) 0.15 0.00-0.70 K/uL Basophils # (Auto) 0.01 0.00-0.20 K/uL Absolute Immature Granulocyte (auto 0.11 0-1 K/uL Nucleated Red Blood Cells 0.0 0.0-0.19 % Prothrombin Time 17.0 H 9.6-11.6 SEC Prothromb Time International Ratio 1.69 H 0.85-1.15 Activated Partial Thromboplast Time 43.6 H 26.3-35.5 SEC Fibrinogen 117 L 180-350 mg/dL Sodium Level 133 L 136-145 mmol/L Potassium Level 4.9 3.5-5.1 mmol/L Chloride Level 103 101-111 mmol/L Carbon Dioxide Level 24 21-32 mmol/L Blood Urea Nitrogen 44 H 7-18 mg/dL Creatinine 1.9 H 0.5-1.0 mg/dL Glomerular Filtration Rate Calc 31 >90 mL/min Random Glucose 162 H 70-105 mg/dL Total Calcium 8.2 L 8.5-10.1 mg/dL Phosphorus Level 4.3 2.5-4.9 mg/dL Magnesium Level 1.90 1.80-2.40 mg/dL Total Bilirubin 2.2 H 0.2-1.0 mg/dL Aspartate Amino Transf (AST/SGOT) 161 H 10-37 U/L Alanine Aminotransferase (ALT/SGPT) 158 H 12-78 U/L Alkaline Phosphatase 451 H 50-136 U/L Total Creatine Kinase 383 #H 21-232 U/L Total Protein 7.5 6.0-8.3 g/dL Albumin 1.4 L 3.5-5.0 g/dL D-Dimer Quantitative (PE/DVT) 7068 *H 0-500 ng/mL Test 05/11/25 04:41 Range/Units Segmented Neutrophils % 96 H 40-70 % Lymphocytes % (Manual) 2 L 22-44 % Monocytes % (Manual) 2 2-9 % Differential Comment MANUAL DIFFERENTIAL White Cell Morphology Comment Platelet Morphology Comment MARKED DECREASE Red Blood Cell Morphology See comments Current Medications Medications (Trade) Dose Ordered Sig/Roberth Route PRN Reason Start Time Stop Time Status Last Admin Dose Admin Acetaminophen (TYLenol 325MG TAB) 650 mg Q4H PRN PO MILD PAIN (1-3) 04/22/25 20:00 05/22/25 19:59 05/11/25 21:31 650 MG Acetaminophen (TYLenol 325MG TAB) 650 mg Q6H PRN PO TEMPERATURE GREATER THAN 101.5 04/22/25 20:00 05/22/25 19:59 04/23/25 10:02 650 MG Acetaminophen/ Hydrocodone Bitart (NORco 5/325MG) 1 tab Q4H PRN PO MODERATE PAIN (4-6) 04/30/25 12:00 05/05/25 11:59 DC 04/30/25 22:07 1 TAB Atorvastatin Calcium (LIPItor 20MG) 20 mg HS PO 04/24/25 21:00 05/24/25 20:59 05/12/25 20:57 20 MG Ceftaroline Fosamil 400 mg/ Sodium Chloride 250 ml @ 250 mls/hr Q12H IV 05/09/25 17:00 05/19/25 16:59 05/12/25 04:24 250 MLS/HR Ceftriaxone Sodium 1 gm/ Sodium Chloride 50 ml @ 100 mls/hr BID IV 04/22/25 21:00 04/22/25 19:59 DC Ceftriaxone Sodium (ROCEphine 1G INJ) 1 gm BID IVPB 04/22/25 21:00 04/22/25 20:44 DC Ceftriaxone Sodium (ROCEphine 1G INJ) 1 gm BID IVPB 04/23/25 09:00 04/25/25 12:36 DC 04/25/25 09:44 1 GM Daptomycin 1000 mg/Sodium Chloride 100 ml @ 200 mls/hr Q24H IV 05/09/25 15:00 05/12/25 17:41 DC 05/11/25 16:20 200 MLS/HR Daptomycin 1000 mg/Sodium Chloride 100 ml @ 200 mls/hr Q24H IV 05/12/25 18:00 05/22/25 17:59 05/12/25 18:40 200 MLS/HR Dexamethasone Sodium Phosphate (dexaMETHasone 4MG/ML 1ML VIAL) 20 mg ONCALL IV 05/01/25 15:30 05/03/25 15:31 DC 05/02/25 15:41 20 MG Dexamethasone Sodium Phosphate (dexaMETHasone 4MG/ML 1ML VIAL) 20 mg ONCALL IV 05/03/25 17:15 05/03/25 17:16 DC 05/03/25 17:23 20 MG Dexamethasone Sodium Phosphate (dexaMETHasone 4MG/ML 1ML VIAL) 20 mg ONCE PRN IV PRE-MED 05/01/25 15:00 05/01/25 15:05 DC Dexmedetomidine/ Sodium Chloride (PRECEdex 200MCG/ 50ML-NS) 200 mcg PROTOCOL IV 04/26/25 12:00 04/26/25 14:54 DC Dexmedetomidine/ Sodium Chloride (PRECEdex 400MCG/ 100ML-NS) 400 mcg PROTOCOL PRN IV ANXIETY/AGITATION 04/26/25 19:30 05/01/25 12:45 DC 04/27/25 23:31 400 MCG Dexmedetomidine/ Sodium Chloride (PRECEdex 400MCG/ 100ML-NS) 400 mcg PROTOCOL STAT IV 04/26/25 14:53 04/26/25 14:58 DC 04/26/25 15:18 400 MCG Dextrose 1,000 ml @ 75 mls/hr [id number] IV 04/26/25 12:00 04/30/25 09:36 DC 04/29/25 04:27 150 MLS/HR Dextrose (D50w) 50 ml AD PRN IV HYPOGLYCEMIA PROTOCOL 04/22/25 20:00 05/22/25 19:59 Diphenhydramine HCl (BENAdryl INJ) 25 mg ONCALL IVP 05/01/25 15:30 05/03/25 15:31 DC 05/02/25 15:41 25 MG Diphenhydramine HCl (BENAdryl INJ) 25 mg ONCALL IVP 05/03/25 17:15 05/03/25 17:16 DC 05/03/25 17:22 25 MG Diphenhydramine HCl (BENAdryl INJ) 25 mg ONCE PRN IVP PRE-MED 05/01/25 15:00 05/01/25 15:06 DC Famotidine (Pepcid 20mg Tab) 20 mg DAILY PO 04/23/25 09:00 04/24/25 09:48 DC 04/23/25 09:33 20 MG Gabapentin (NEURontin 300 MG CAP) 300 mg BID PO 04/24/25 21:00 04/28/25 09:10 DC 04/25/25 21:51 300 MG Gentamicin Sulfate/Sodium Chloride 100 ml @ 200 mls/hr Q12H IV 05/09/25 02:00 05/09/25 13:30 DC 05/09/25 01:36 200 MLS/HR Gentamicin Sulfate/Sodium Chloride 100 ml @ 200 mls/hr Q24H IV 05/03/25 14:00 05/08/25 21:01 DC 05/08/25 14:18 200 MLS/HR Glucagon (Glucagon 1mg Kit) 1 mg AD PRN IM HYPOGLYCEMIA PROTOCOL 04/22/25 20:00 05/22/25 19:59 Heparin Sodium (Porcine) (HEParin 5,000 UNIT VIAL) 5,000 unit Q8H SQ 04/25/25 09:00 04/25/25 08:40 DC Hydromorphone HCl (DiLAUDid 0.5MG INJ) 0.5 mg BIDPRN PRN IVP SEVERE PAIN (7-10) 04/25/25 19:00 04/30/25 11:59 DC 04/29/25 23:31 0.5 MG Hydromorphone HCl (DiLAUDid 0.5MG INJ) 0.5 mg Q6H PRN IVP SEVERE PAIN (7-10) 04/23/25 14:00 04/25/25 08:25 DC 04/25/25 04:14 0.5 MG Hydromorphone HCl (DiLAUDid 1MG INJ) 1 mg TID PRN IVP SEVERE PAIN (7-10) 05/01/25 19:00 05/05/25 12:59 DC Hydromorphone HCl (DiLAUDid 1MG INJ) 1 mg TIDP PRN IVP SEVERE PAIN (7-10) 04/30/25 13:00 05/01/25 18:46 DC 04/30/25 20:44 1 MG Immune Globulin 400 ml @ 0 mls/hr Q24H IV 05/01/25 14:00 05/02/25 12:38 DC 05/01/25 16:18 37.5 MLS/HR Immune Globulin 400 ml @ 0 mls/hr Q24H IV 05/02/25 16:00 05/03/25 16:01 DC 05/02/25 16:46 37.5 MLS/HR Immune Globulin 400 ml @ 0 mls/hr Q24H IV 05/03/25 17:15 05/03/25 17:16 DC 05/03/25 17:57 37.5 MLS/HR Insulin Glargine (LANtus 100 UNITS/ML 10 ML VIAL) 10 units HS SQ 04/24/25 21:00 04/24/25 16:57 DC Insulin Glargine (LANtus 100 UNITS/ML 10 ML VIAL) 10 units ONCE STAT SQ 04/24/25 10:54 04/24/25 11:00 DC 04/24/25 11:19 10 UNITS Insulin Glargine (LANtus 100 UNITS/ML 10 ML VIAL) 15 units HS SQ 04/24/25 21:00 04/24/25 17:06 DC Insulin Glargine (LANtus 100 UNITS/ML 10 ML VIAL) 30 units DAILY SQ 05/05/25 09:00 05/07/25 23:47 DC 05/07/25 08:12 30 UNITS Insulin Glargine (LANtus 100 UNITS/ML 10 ML VIAL) 30 units ONCE SQ 04/24/25 17:00 04/25/25 06:19 DC 04/24/25 18:16 30 UNITS Insulin Glargine (LANtus 100 UNITS/ML 10 ML VIAL) 40 units DAILY SQ 05/08/25 09:00 06/07/25 08:59 05/12/25 09:15 40 UNITS Insulin Glargine (LANtus 100 UNITS/ML 10 ML VIAL) 40 units DAILY SQ 04/29/25 09:00 04/30/25 07:31 DC Insulin Glargine (LANtus 100 UNITS/ML 10 ML VIAL) 50 units DAILY SQ 04/26/25 09:00 04/29/25 06:49 DC 04/28/25 08:46 50 UNITS Insulin Glargine (LANtus 100 UNITS/ML 10 ML VIAL) 50 units DAILY SQ 04/30/25 09:00 05/05/25 07:21 DC 05/04/25 09:30 50 UNITS Insulin Human Regular (humuLIN R 100 UNIT/ML 3ML) 5 unit TIDAC SQ 04/24/25 17:00 04/24/25 17:06 DC Insulin Human Regular (humuLIN R 100 UNIT/ML 3ML) 8 unit TIDAC SQ 04/28/25 07:30 04/30/25 07:31 DC 04/30/25 06:15 8 UNIT Insulin Human Regular (humuLIN R 100 UNIT/ML 3ML) 10 unit TIDAC SQ 05/06/25 07:30 05/07/25 23:47 DC 05/07/25 16:06 10 UNIT Insulin Human Regular (humuLIN R 100 UNIT/ML 3ML) 10 unit TIDAC SQ 05/10/25 11:30 06/09/25 11:29 05/11/25 12:10 10 UNIT Insulin Human Regular (humuLIN R 100 UNIT/ML 3ML) 10 unit TIDAC SQ 04/24/25 17:00 04/25/25 06:17 DC 04/25/25 06:15 10 UNIT Insulin Human Regular (humuLIN R 100 UNIT/ML 3ML) 12 unit TIDAC SQ 05/05/25 07:30 05/05/25 22:51 DC Insulin Human Regular (humuLIN R 100 UNIT/ML 3ML) 12 unit TIDAC SQ 04/30/25 07:30 05/02/25 08:05 DC 05/02/25 06:45 12 UNIT Insulin Human Regular (humuLIN R 100 UNIT/ML 3ML) 15 unit TIDAC SQ 05/02/25 11:30 05/05/25 07:21 DC 05/04/25 17:33 15 UNIT Insulin Human Regular (humuLIN R 100 UNIT/ML 3ML) 15 unit TIDAC SQ 05/08/25 07:30 05/09/25 06:24 DC 05/08/25 17:16 15 UNIT Insulin Human Regular (humuLIN R 100 UNIT/ML 3ML) 15 unit TIDAC SQ 04/26/25 11:30 04/27/25 20:30 DC Insulin Human Regular (humuLIN R 100 UNIT/ML 3ML) 18 unit TIDAC SQ 05/09/25 07:30 05/10/25 09:56 DC 05/09/25 06:49 18 UNIT Insulin Human Regular (humuLIN R 100 UNIT/ML 3ML) 25 unit TIDAC SQ 04/25/25 07:30 04/26/25 07:58 DC 04/25/25 17:39 25 UNIT Insulin Human Regular (humuLIN R 100 UNIT/ML 3ML) INSULIN SLIDING SCAL... ACHS SQ 04/22/25 21:00 04/24/25 16:16 DC 04/24/25 11:18 8 UNIT Insulin Human Regular (humuLIN R 100 UNIT/ML 3ML) INSULIN SLIDING SCAL... ACHS SQ 05/05/25 07:30 06/04/25 07:29 05/12/25 20:58 4 UNIT Insulin Human Regular (humuLIN R 100 UNIT/ML 3ML) INSULIN SLIDING SCAL... ACHS SQ 04/24/25 16:30 04/25/25 14:09 DC 04/25/25 11:57 16 UNIT Insulin Human Regular (humuLIN R 100 UNIT/ML 3ML) INSULIN SLIDING SCAL... ACHS SQ 04/25/25 16:30 05/04/25 23:42 DC 05/04/25 20:49 6 UNIT Insulin Human Regular (humuLIN R 100 UNIT/ML 3ML) INSULIN SLIDING SCAL... Q4H SQ 04/27/25 20:30 04/28/25 09:11 DC 04/28/25 06:00 4 UNIT Lactated Ringer's 1,000 ml @ 100 mls/hr Q10H IV 04/22/25 20:00 04/23/25 10:09 DC 04/23/25 06:00 100 MLS/HR Lactulose (Constulose 20gm/ 30ml Udcup) 30 gm TID PO 04/25/25 11:00 04/30/25 09:45 DC 04/30/25 09:16 30 GM Levothyroxine Sodium (SYNTHroid 125MCG TAB) 125 mcg DAILY@0630 PO 04/25/25 06:30 05/25/25 06:29 05/12/25 04:24 125 MCG Lidocaine (Lidoderm Patch 5%) 1 patch Q24H TP 05/12/25 05:00 06/11/25 04:59 Lisinopril (Prinivil 10mg) 10 mg DAILY PO 05/02/25 09:00 06/01/25 08:59 05/12/25 09:13 10 MG Magnesium Sulfate 50 ml @ 0 mls/hr PROTOCOL PRN IV OTHER [SEE ORDER COMMENTS] 04/22/25 20:00 05/22/25 19:59 Methylprednisolone Sodium Succinate (Solu-medROL 125MG) 125 mg Q6H IVP 04/23/25 08:00 04/28/25 09:10 DC 04/25/25 09:45 125 MG Metoprolol Succinate (TopROL XL) 50 mg AM PO 04/25/25 09:00 05/25/25 08:59 05/12/25 09:13 50 MG Nystatin (NystOP 15 GM POWDER) apply abdominal fold/perineum BID TP 05/09/25 21:00 06/08/25 20:59 05/12/25 21:06 1 APPL Ondansetron HCl (zoFRAN 4MG INJ) 4 mg Q6H PRN IV NAUSEA/VOMITING 04/22/25 20:00 05/22/25 19:59 04/22/25 20:10 4 MG Pantoprazole Sodium (PROTonix 40MG INJ) 40 mg DAILY IVP 04/24/25 10:00 05/11/25 08:11 DC 05/10/25 09:09 40 MG Pantoprazole Sodium (PROTonix 40MG TAB) 40 mg DAILY PO 05/11/25 09:00 06/10/25 08:59 05/12/25 09:13 40 MG Pharmacy Profile Note (Pharmacy Communication) 1 each ONCE MIS 05/01/25 08:00 04/30/25 16:52 DC Pharmacy Profile Note (Pharmacy Communication) 1 each ONCE MISC 05/03/25 12:00 05/03/25 12:58 DC Pharmacy Profile Note (Pharmacy Communication) 1 each ONCE MIS 05/09/25 13:00 05/09/25 13:42 DC Potassium Chloride 100 ml @ 100 mls/hr AD PRN IV POTASSIUM PROTOCOL 04/22/25 20:00 05/22/25 19:59 Potassium Chloride (K-Dur/Klor-Con 20meq) 20 meq AD PRN PO POTASSIUM PROTOCOL 04/22/25 20:00 05/22/25 19:59 05/03/25 13:10 20 MEQ Potassium Chloride (KCl 10% Elixir 20meq/15ml) 20 meq AD PRN PO POTASSIUM PROTOCOL 04/22/25 20:00 05/22/25 19:59 Pramipexole Dihydrochloride (miraPEX 0.25MG TAB) 0.5 mg HS PO 04/24/25 21:00 05/24/25 20:59 05/12/25 20:57 0.5 MG Pregabalin (LYRica 25MG) 25 mg BID PO 05/01/25 21:00 05/05/25 07:22 DC 05/04/25 09:22 25 MG Pregabalin ([id number]) 75 mg BID PO 04/24/25 21:00 04/24/25 14:49 DC Sodium Chloride 500 ml @ 0 mls/hr Q0M IV 04/25/25 11:00 05/25/25 10:59 Sodium Zirconium Cyclosilicate (Lokelma 10gm Powder) 10 gm TID PO 04/23/25 21:00 04/23/25 14:11 DC Tramadol HCl (UltRAM) 50 mg Q6H PRN PO MODERATE PAIN (4-6) 05/11/25 22:00 05/16/25 21:59 05/12/25 22:31 50 MG Tramadol HCl (UltRAM) 50 mg Q6H PRN PO MODERATE PAIN (4-6) 04/24/25 22:30 04/29/25 22:29 DC 04/28/25 13:55 50 MG Trimethoprim/ Sulfamethoxazole (BactRIM DS) 1 tab BID PO 04/25/25 21:00 04/26/25 14:50 DC 04/25/25 21:51 1 TAB Vancomycin HCl 250 ml @ 125 mls/hr Q12H IV 04/24/25 23:00 04/25/25 12:36 DC 04/25/25 11:43 125 MLS/HR Vancomycin HCl 250 ml @ 125 mls/hr Q12H IV 04/26/25 15:30 04/28/25 03:13 DC 04/27/25 15:22 125 MLS/HR Vancomycin HCl 250 ml @ 125 mls/hr Q12H IV 04/28/25 15:30 04/28/25 18:53 DC Vancomycin HCl 250 ml @ 125 mls/hr Q12H IV 04/28/25 20:00 05/02/25 20:34 DC 05/02/25 10:21 125 MLS/HR Vancomycin HCl 250 ml @ 125 mls/hr Q12H9 IV 05/04/25 21:00 05/08/25 20:49 DC 05/08/25 08:48 125 MLS/HR Vancomycin HCl (Vancomycin 750mg) 750 mg Q12H IVPB 05/08/25 21:00 05/09/25 13:30 DC 05/09/25 09:45 750 MG Vancomycin HCl (Vancomycin Protocol) 1 each AD IV 04/24/25 10:30 04/25/25 12:36 DC Vancomycin HCl (Vancomycin Protocol) 1 each AD IV 04/26/25 15:00 05/09/25 13:30 DC Venlafaxine HCl (EffEXOR XR 37.5mg CAP) 37.5 mg DAILY PO 04/24/25 16:00 05/05/25 11:18 DC 05/04/25 09:21 37.5 MG Venlafaxine HCl (EffEXOR XR 37.5mg CAP) 37.5 mg DAILY PO 04/25/25 09:00 04/24/25 14:50 DC Venlafaxine HCl (EffEXOR XR 37.5mg CAP) 37.5 mg HS PO 05/05/25 21:00 06/04/25 20:59 05/12/25 20:57 37.5 MG Diagnostics / Radiology: [COPY/PASTE HERE IF NO REPORTS PLEASE DELETE SECTION] Assessment: Decompensated cirrhosis HTN Esophageal varies Plan: Patient with known cirrhosis however lost to follow-up. Hold off on EGD given no overt GI bleeding and stable hemoglobin We will monitor closely BEHZAD KOCH [employer] May 12, 2025 23:17
--- NOTE | 2025-05-12 23:30 | NUR ---
MIDLINE PLACEMENT Patient with poor venous access. Notified charge nurse Netta. Notified [facility] vp communications. Order for Midline access given. Midline placed at 2330.
--- NOTE | 2025-05-13 00:52 | HMCIMG ---
EXAM: MR Lumbar Spine Without Intravenous Contrast. CLINICAL HISTORY: Osteomyelitis, possible abscess. TECHNIQUE: Magnetic resonance images of the lumbar spine in multiple planes. CONTRAST: None. COMPARISON: Noncontrast MRI dated 04/28/25. FINDINGS: For this examination, spinal levels were labeled assuming five non-rib bearing, lumbar-type vertebrae with the inferior labeled L5. No acute fracture. Moderate levoscoliosis. Normal lordotic curvature. Multilevel spondylosis is evident by marginal osteophytes and facet joint arthropathy. Multilevel disc desiccation and degenerative disc height reduction noted, more pronounced at the L4-L5 level. Normal vertebral body heights. Intradiscal collection with extension into the epidural space and to the prevertebral space at the L2-L3 level, concerning for spondylodiscitis. Modic type II changes in the contiguous endplates at the L4-L5 level. Conus medullaris terminates at the T12-L1 level. No abnormal epidural masses. Moderate subcutaneous edema in the lower back. Individual spinal levels are described as follows: T12-L1: 6mm disc osteophyte complex bulge causing mild indentation on the anterior thecal sac. No neural foraminal or lateral recess stenosis. L1-L2: No disc bulge or herniation. No neural foraminal, lateral recess or spinal canal stenosis. L2-L3: 6 mm disc osteophyte complex bulge and facet joint arthropathy causing mild canal narrowing and mild bilateral foraminal narrowing with indentation on the exiting bilateral L2 nerve roots. No lateral recess stenosis. L3-L4: 6 mm disc osteophyte complex bulge, ligamentum flavum thickening, and facet joint arthropathy causing mild canal narrowing and moderate to severe bilateral foraminal narrowing with indentation on the exiting bilateral L3 nerve roots. No lateral recess stenosis. L4-L5: 8 mm disc osteophyte complex bulge, ligamentum flavum thickening, and facet joint arthropathy causing mild canal narrowing and severe bilateral foraminal narrowing with indentation on the exiting bilateral L4 nerve roots. No lateral recess stenosis. L5-S1: 6 mm disc osteophyte complex bulge and facet joint arthropathy causing mild canal narrowing and mild to moderate bilateral foraminal narrowing with indentation on the exiting bilateral L5 nerve roots. No lateral recess stenosis. IMPRESSION: Suboptimal evaluation possible due to poor [id number] ratio. Intradiscal collection with extension into the epidural space and to the prevertebral space at the L2-L3 level, concerning for spondylodiscitis. Moderate levoscoliosis. Moderate multilevel spondylosis and degenerative disc changes. Modic type II changes in the contiguous endplates at the L4-L5 level. Mild canal narrowing and mild bilateral foraminal narrowing with indentation on the exiting bilateral L2 nerve roots at the L2-L3 level. Mild canal narrowing and moderate to severe bilateral foraminal narrowing with indentation on the exiting bilateral L3 nerve roots at the L3-L4 level. Mild canal narrowing and severe bilateral foraminal narrowing with indentation on the exiting bilateral L4 nerve roots at the L4-L5 level. Mild canal narrowing and mild to moderate bilateral foraminal narrowing with indentation on the exiting bilateral L5 nerve roots at the L5-S1 level. No significant interval changes. /Douglas
[2025-05-13 01:04] VITALS: BP 111/52; PULSE 75; RESP 18; TEMP 98.2
[2025-05-13 04:21] VITALS: BP 104/48; PULSE 76; RESP 19; TEMP 98.5
[2025-05-13 04:30] LABS: NUCLEATED RED BLOOD CELLS 0.0 % (0.0-0.19); PLATELET COUNT (AUTO) 26 K/uL (130-400); RED BLOOD CELL COUNT(AUTO) 3.00 MIL/uL (4.00-5.50); RED CELL DISTRIBUTION WIDTH 26.5 % (11.0-15.5); WHITE BLOOD COUNT (AUTO) 8.5 K/uL (4.8-10.8)
[2025-05-13 04:42] LABS: INR 1.68 (0.85-1.15)
[2025-05-13 04:50] LABS: ASPARTATE AMINOTRANSFERASE 198.0 U/L (10-37); CREATININE 2.6 mg/dL (0.5-1.0); GLOMERULAR FILTR. RATE CALC 21.0 mL/min (>90); GLUCOSE,RANDOM 124.0 mg/dL (70-105); SODIUM SERUM 132.0 mmol/L (136-145); TOTAL PROTEIN, SERUM 7.2 g/dL (6.0-8.3); UREA NITROGEN, BLOOD 50.0 mg/dL (7-18)
[2025-05-13 08:00] VITALS: BP 113/48; PULSE 70; RESP 20; TEMP 98; O2SAT 95
--- NOTE | 2025-05-13 09:08 | PN ---
FOLLOWUP PROGRESS NOTE SUBJECTIVE: A 54-year-old female with a history of systemic lupus erythematosus. The patient presented to the hospital, found to have persistent bacteremia. The patient's workup is consistent with osteomyelitis. She continues with broad-spectrum antibiotics and blood cultures continue to be positive. She has had acute on chronic renal failure in the hospital. Creatinine continues to be elevated and the patient is being seen as a followup visit for all of the above. REVIEW OF SYSTEMS: CONSTITUTIONAL: She is feeling weak and tired. HEENT: No change in vision. No change in hearing. CARDIOVASCULAR: There is no current chest pain or palpitations. PULMONARY: No shortness of breath. GASTROINTESTINAL: She is tolerating some amount of diet. MUSCULOSKELETAL: Complaints of weakness. OBJECTIVE: VITAL SIGNS: Blood pressure 116/58, pulse 60s, afebrile. GENERAL: She is a chronically ill female, much older than appearing. HEENT: Head is atraumatic. Pupils are equal, roving to light. Oropharynx is without exudate. Nares are clear. NECK: There is no JVP, no thyromegaly. CARDIOVASCULAR: Regular. There is no S3, S4 gallop. LUNGS: Coarse with equal thoracic movement. ABDOMEN: Soft, nondistended, and nontender. EXTREMITIES: Reveal no clubbing, no cyanosis. NEUROLOGICAL: She is awake, she is alert. LABORATORY DATA: Sodium 132, BUN 50, creatinine is 2.6. Hemoglobin 8.1, hematocrit 25. IMPRESSION: * Acute on chronic renal failure. * Persistent bacteremia with osteomyelitis. * Anemia. * Lupus. PLAN: The patient with worsening renal dysfunction while in the hospital. MANUEL inhibitor will be held for now. We will continue to monitor chemistries closely. We will obtain a CPK in the morning for completeness. All labs can be repeated in the morning. We will continue to follow closely. She remains on the broad-spectrum antibiotics. TID: [id number] RECEIPT: [id number]
--- NOTE | 2025-05-13 10:22 | PN ---
SUBJECTIVE: The patient remained stable overnight. No bleeding or bruising. PHYSICAL EXAMINATION: GENERAL: Physical exam shows a pleasant woman. VITAL SIGNS: Blood pressure 104/48, pulse 76, respirations 20. HEENT: Benign. CHEST: Clear and soft. EXTREMITIES: Show no edema. NEUROLOGIC: Alert and oriented. LABORATORY DATA: Reviewed. Platelets over 21,000. IMPRESSION: * MRSA bacteremia and sepsis. * UTI. * MRSA. * L3-L4 osteomyelitis. * Right hydronephrosis. * Hyperglycemia. * Cirrhosis of the liver. * Lupus. * Thrombocytopenia. * Diabetes. * Debility. PLAN: Continue antibiotics. They are still working on ____. I am trying to get her Promacta through my office. TID: [id number] RECEIPT: [id number]
--- NOTE | 2025-05-13 11:30 | NUR ---
HAD NOTIFIED PRIMARY TEAM DR ALBERT OF [id number]
[2025-05-13 12:00] VITALS: BP 118/55; PULSE 76; RESP 15; TEMP 97.9
--- NOTE | 2025-05-13 12:00 | NUR ---
NOTIFIED PRIMARY TEAM ON PATIENT WITH POOR APPETITE EATING MINIMAL PER FAMILY , ON CURRENT SCHEDULED INSULIN AND LANTUS 30UNITS AND WAS NOT GIVEN DUE TO NOT EATING AND BLOOD SUGARS ON 108 .NEW ORDERS WERE PLACED FOR METAL TECHNICIAN
--- NOTE | 2025-05-13 12:20 | PN ---
endocrinology progress note Date of Service: May 13, 2025 subjective: glucose are improving and off steroid now. hba1c 9.2, home regimen: lantus 30 units daily and humalog 10 units tid before meals. patient glucose are improving. s/p right nephrostomy tube, thrombocytopenia, UTI and gram positive. Bacteremia. liver cirrhosis. PAST MEDICAL HISTORY: [undiagnosed obstructive sleep apnea, diabetes type 2, hypertension, hyperlipidemia, hypothyroidism, restless leg syndrome, anxiety disorder,depression, lupus and severe morbid obesity ] PAST SURGICAL HISTORY: [ Cholecystectomy, tubal ligation] PAST SOCIAL HISTORY: [ Patient lives with . Patient denies alcohol tobacco and recreational drug use] FAMILY HISTORY: [ Hypertension, diabetes, cardiovascular disease and Alzheimer's disease ] Coded Allergies: No Known Allergies (Unverified Allergy, Unknown, 08/26/14) ASSESSMENT: glucose are improving and off steroid now. hba1c 9.2, home regimen: lantus 30 units daily and humalog 10 units tid before meals. Intractable low back pain POA L2/L3 OSTEOMYELITIS Acute thrombocytopenia POA s/p IVIG Acute urinary tract infection POA On antibiotics. Bacteremia, MRSA on antibiotics. right kidney hydronephrosis s/p right nephrostomy tube Chronic anemia POA Hyponatremia POA improved Acute kidney injury on renal insufficiency POA improving Hypocalcemia POA stable Cirrhotic liver with splenomegaly consistent with portal hypertension per CT POA Renal parenchymal disease per CT POA Hypothyroidism POA ON LEVOTHYROXINE Hyperlipidemia POA Hypertension POA Anxiety disorder POA Depression POA Restless leg syndrome POA Suspected obstructive sleep apnea untreated POA Morbid obesity POA PLAN: decrease lantus to 30 units daily continue regular insulin 10 units qac before meals continue medium dose ssi monitor glucose qx6 hourly continue levothyroxine 125 mcg daily. Vitals/Labs Vital Signs Date Time Temp Pulse Resp B/P (MAP) Pulse Ox O2 Delivery O2 Flow Rate FiO2 05/13/25 08:00 98.1 70 20 113/48 91 Room Air 05/12/25 20:00 0 21 Laboratory Tests 05/13/25 04:18 Medications Current Medications Sodium Chloride 1,000 ml @ 0 mls/hr ONCE ONCE IV Last administered on 04/22/25at 17:27; Start 04/22/25 at 17:00; Stop 04/22/25 at 17:01; Status DC Ceftriaxone Sodium 1 gm ONCE ONCE IVPB Last administered on 04/22/25at 19:43; Start 04/22/25 at 19:00; Stop 04/22/25 at 19:01; Status DC Acetaminophen 650 mg Q6H PRN PO Last administered on 04/23/25at 10:02; Start 04/22/25 at 20:00; Stop 05/22/25 at 19:59 Acetaminophen 650 mg Q4H PRN PO Last administered on 05/11/25at 21:31; Start 04/22/25 at 20:00; Stop 05/22/25 at 19:59 Ondansetron HCl 4 mg Q6H PRN IV Last administered on 04/22/25at 20:10; Start 04/22/25 at 20:00; Stop 05/22/25 at 19:59 Famotidine 20 mg DAILY PO Last administered on 04/23/25at 09:33; Start 04/23/25 at 09:00; Stop 04/24/25 at 09:48; Status DC Ceftriaxone Sodium 1 gm/ Sodium Chloride 50 ml @ 100 mls/hr BID IV; Start 04/22/25 at 21:00; Stop 04/22/25 at 19:59; Status DC Lactated Ringer's 1,000 ml @ 100 mls/hr Q10H IV Last administered on 04/23/25at 06:00; Start 04/22/25 at 20:00; Stop 04/23/25 at 10:09; Status DC Insulin Human Regular INSULIN SLIDING SCAL... ACHS SQ Last administered on 04/24/25at 11:18; Start 04/22/25 at 21:00; Stop 04/24/25 at 16:16; Status DC Dextrose 50 ml AD PRN IV; Start 04/22/25 at 20:00; Stop 05/22/25 at 19:59 Glucagon 1 mg AD PRN IM; Start 04/22/25 at 20:00; Stop 05/22/25 at 19:59 Magnesium Sulfate 50 ml @ 0 mls/hr PROTOCOL PRN IV; Start 04/22/25 at 20:00; Stop 05/22/25 at 19:59 Potassium Chloride 100 ml @ 100 mls/hr AD PRN IV; Start 04/22/25 at 20:00; Stop 05/22/25 at 19:59 Potassium Chloride 20 meq AD PRN PO; Start 04/22/25 at 20:00; Stop 05/22/25 at 19:59 Potassium Chloride 20 meq AD PRN PO Last administered on 05/03/25at 13:10; Start 04/22/25 at 20:00; Stop 05/22/25 at 19:59 Ceftriaxone Sodium 1 gm BID IVPB; Start 04/22/25 at 21:00; Stop 04/22/25 at 20:44; Status DC Morphine Sulfate 4 mg ONCE ONCE IVP Last administered on 04/22/25at 20:11; Start 04/22/25 at 20:30; Stop 04/22/25 at 20:31; Status DC Lidocaine 1 each ONCE ONCE TP Last administered on 04/22/25at 21:14; Start 04/22/25 at 21:00; Stop 04/22/25 at 21:01; Status DC Ceftriaxone Sodium 1 gm BID IVPB Last administered on 04/25/25at 09:44; Start 04/23/25 at 09:00; Stop 04/25/25 at 12:36; Status DC Methylprednisolone Sodium Succinate 125 mg Q6H IVP Last administered on 04/25/25at 09:45; Start 04/23/25 at 08:00; Stop 04/28/25 at 09:10; Status DC Albuterol Sulfate 1.25 ONCE ONCE IH Last administered on 04/23/25at 09:40; Start 04/23/25 at 09:30; Stop 04/23/25 at 09:31; Status DC Calcium Gluconate 1 gm ONCE ONCE IV Last administered on 04/23/25at 10:55; Start 04/23/25 at 10:30; Stop 04/23/25 at 10:31; Status DC Sodium Chloride 50 ml @ 0 mls/hr ONCE ONCE IV Last administered on 04/23/25at 11:00; Start 04/23/25 at 11:00; Stop 04/23/25 at 11:01; Status DC Sodium Zirconium Cyclosilicate 10 gm ONCE ONCE PO Last administered on 04/23/25at 14:14; Start 04/23/25 at 14:00; Stop 04/23/25 at 16:08; Status DC Hydromorphone HCl 0.5 mg Q6H PRN IVP Last administered on 04/25/25at 04:14; Start 04/23/25 at 14:00; Stop 04/25/25 at 08:25; Status DC Sodium Zirconium Cyclosilicate 10 gm TID PO; Start 04/23/25 at 21:00; Stop 04/23/25 at 14:11; Status DC Pantoprazole Sodium 40 mg DAILY IVP Last administered on 05/10/25at 09:09; Start 04/24/25 at 10:00; Stop 05/11/25 at 08:11; Status DC Pregabalin 75 mg BID PO; Start 04/24/25 at 21:00; Stop 04/24/25 at 14:49; Status DC Vancomycin HCl 1 each AD IV; Start 04/24/25 at 10:30; Stop 04/25/25 at 12:36; Status DC Vancomycin HCl 500 ml @ 250 mls/hr ONCE ONCE IV Last administered on 04/24/25at 12:46; Start 04/24/25 at 11:00; Stop 04/24/25 at 12:59; Status DC Vancomycin HCl 250 ml @ 125 mls/hr Q12H IV Last administered on 04/25/25at 11:43; Start 04/24/25 at 23:00; Stop 04/25/25 at 12:36; Status DC Insulin Glargine 10 units HS SQ; Start 04/24/25 at 21:00; Stop 04/24/25 at 16:57; Status DC Insulin Glargine 10 units ONCE STAT SQ Last administered on 04/24/25at 11:19; Start 04/24/25 at 10:54; Stop 04/24/25 at 11:00; Status DC Atorvastatin Calcium 20 mg HS PO Last administered on 05/12/25at 20:57; Start 04/24/25 at 21:00; Stop 05/24/25 at 20:59 Gabapentin 300 mg BID PO Last administered on 04/25/25at 21:51; Start 04/24/25 at 21:00; Stop 04/28/25 at 09:10; Status DC Levothyroxine Sodium 125 mcg DAILY@0630 PO Last administered on 05/13/25at 06:46; Start 04/25/25 at 06:30; Stop 05/25/25 at 06:29 Metoprolol Succinate 50 mg AM PO Last administered on 05/13/25at 08:48; Start 04/25/25 at 09:00; Stop 05/25/25 at 08:59 Venlafaxine HCl 37.5 mg DAILY PO; Start 04/25/25 at 09:00; Stop 04/24/25 at 14:50; Status DC Pramipexole Dihydrochloride 0.5 mg HS PO Last administered on 05/12/25at 20:57; Start 04/24/25 at 21:00; Stop 05/24/25 at 20:59 Venlafaxine HCl 37.5 mg DAILY PO Last administered on 05/04/25at 09:21; Start 04/24/25 at 16:00; Stop 05/05/25 at 11:18; Status DC Insulin Human Regular INSULIN SLIDING SCAL... ACHS SQ Last administered on 04/25/25at 11:57; Start 04/24/25 at 16:30; Stop 04/25/25 at 14:09; Status DC Insulin Glargine 15 units HS SQ; Start 04/24/25 at 21:00; Stop 04/24/25 at 17:06; Status DC Insulin Human Regular 5 unit TIDAC SQ; Start 04/24/25 at 17:00; Stop 04/24/25 at 17:06; Status DC Insulin Glargine 30 units ONCE SQ Last administered on 04/24/25at 18:16; Start 04/24/25 at 17:00; Stop 04/25/25 at 06:19; Status DC Insulin Human Regular 10 unit TIDAC SQ Last administered on 04/25/25at 06:15; Start 04/24/25 at 17:00; Stop 04/25/25 at 06:17; Status DC Tramadol HCl 50 mg Q6H PRN PO Last administered on 04/28/25at 13:55; Start 04/24/25 at 22:30; Stop 04/29/25 at 22:29; Status DC Insulin Human Regular 25 unit TIDAC SQ Last administered on 04/25/25at 17:39; Start 04/25/25 at 07:30; Stop 04/26/25 at 07:58; Status DC Insulin Glargine 70 units ONCE ONCE SQ Last administered on 04/25/25at 06:27; Start 04/25/25 at 06:30; Stop 04/25/25 at 06:31; Status DC Hydromorphone HCl 0.5 mg BIDPRN PRN IVP Last administered on 04/29/25at 23:31; Start 04/25/25 at 19:00; Stop 04/30/25 at 11:59; Status DC Heparin Sodium (Porcine) 5,000 unit Q8H SQ; Start 04/25/25 at 09:00; Stop 04/25/25 at 08:40; Status DC Lactulose 30 gm TID PO Last administered on 04/30/25at 09:16; Start 04/25/25 at 11:00; Stop 04/30/25 at 09:45; Status DC Sodium Chloride 500 ml @ 0 mls/hr Q0M IV; Start 04/25/25 at 11:00; Stop 05/25/25 at 10:59 Trimethoprim/ Sulfamethoxazole 1 tab BID PO Last administered on 04/25/25at 21:51; Start 04/25/25 at 21:00; Stop 04/26/25 at 14:50; Status DC Insulin Human Regular INSULIN SLIDING SCAL... ACHS SQ Last administered on 05/04/25at 20:49; Start 04/25/25 at 16:30; Stop 05/04/25 at 23:42; Status DC Diazepam 10 mg ONCE ONCE IM; Start 04/25/25 at 15:00; Stop 04/25/25 at 15:01; Status DC Lactulose 200 gm ONCE ONCE FL Last administered on 04/25/25at 17:30; Start 04/25/25 at 16:30; Stop 04/25/25 at 16:31; Status DC Lorazepam 0.5 mg ONCE ONCE PO Last administered on 04/25/25at 19:07; Start 04/25/25 at 19:00; Stop 04/25/25 at 19:01; Status DC Haloperidol Lactate 1 mg ONCE ONCE IM Last administered on 04/26/25at 05:17; Start 04/26/25 at 05:00; Stop 04/26/25 at 05:02; Status DC Insulin Human Regular 15 unit TIDAC SQ; Start 04/26/25 at 11:30; Stop 04/27/25 at 20:30; Status DC Insulin Glargine 50 units DAILY SQ Last administered on 04/28/25at 08:46; Start 04/26/25 at 09:00; Stop 04/29/25 at 06:49; Status DC Dextrose 1,000 ml @ 75 mls/hr [id number] IV Last administered on 04/29/25at 04:27; Start 04/26/25 at 12:00; Stop 04/30/25 at 09:36; Status DC Dexmedetomidine/ Sodium Chloride 200 mcg PROTOCOL IV; Start 04/26/25 at 12:00; Stop 04/26/25 at 14:54; Status DC Dexmedetomidine/ Sodium Chloride 400 mcg STK-MED ONCE IV; Start 04/26/25 at 14:49; Stop 04/26/25 at 14:50; Status DC Vancomycin HCl 1 each AD IV; Start 04/26/25 at 15:00; Stop 05/09/25 at 13:30; Status DC Dexmedetomidine/ Sodium Chloride 400 mcg PROTOCOL STAT IV Last administered on 04/26/25at 15:18; Start 04/26/25 at 14:53; Stop 04/26/25 at 14:58; Status DC Vancomycin HCl 250 ml @ 125 mls/hr Q12H IV Last administered on 04/27/25at 15:22; Start 04/26/25 at 15:30; Stop 04/28/25 at 03:13; Status DC Dexmedetomidine/ Sodium Chloride 400 mcg PROTOCOL PRN IV Last administered on 04/27/25at 23:31; Start 04/26/25 at 19:30; Stop 05/01/25 at 12:45; Status DC Dexmedetomidine/ Sodium Chloride 400 mcg STK-MED ONCE IV Last administered on 04/26/25at 19:14; Start 04/26/25 at 19:10; Stop 04/26/25 at 19:11; Status DC Insulin Human Regular INSULIN SLIDING SCAL... Q4H SQ Last administered on 04/28/25at 06:00; Start 04/27/25 at 20:30; Stop 04/28/25 at 09:11; Status DC Vancomycin HCl 250 ml @ 125 mls/hr Q12H IV; Start 04/28/25 at 15:30; Stop 04/28/25 at 18:53; Status DC Insulin Human Regular 8 unit TIDAC SQ Last administered on 04/30/25at 06:15; Start 04/28/25 at 07:30; Stop 04/30/25 at 07:31; Status DC Vancomycin HCl 250 ml @ 125 mls/hr Q12H IV Last administered on 05/02/25at 10:21; Start 04/28/25 at 20:00; Stop 05/02/25 at 20:34; Status DC Insulin Glargine 40 units DAILY SQ; Start 04/29/25 at 09:00; Stop 04/30/25 at 07:31; Status DC Lidocaine HCl 50 ml STK-MED ONCE .ROUTE; Start 04/29/25 at 16:03; Stop 04/29/25 at 16:06; Status DC Heparin Sodium/ Sodium Chloride 500 ml @ As Directed STK-MED ONCE IV; Start 04/29/25 at 16:03; Stop 04/29/25 at 16:06; Status DC Iodixanol 100 ml STK-MED ONCE .ROUTE; Start 04/29/25 at 16:04; Stop 04/29/25 at 16:06; Status DC Fentanyl Citrate 100 mcg STK-MED ONCE .ROUTE; Start 04/29/25 at 16:27; Stop 04/29/25 at 16:28; Status DC Midazolam HCl 2 mg STK-MED ONCE .ROUTE; Start 04/29/25 at 16:28; Stop 04/29/25 at 16:28; Status DC Midazolam HCl 2 mg STK-MED ONCE .ROUTE; Start 04/29/25 at 16:52; Stop 04/29/25 at 16:52; Status DC Lidocaine 1 each ONCE ONCE TP Last administered on 04/29/25at 19:18; Start 04/29/25 at 18:30; Stop 04/29/25 at 18:33; Status DC Insulin Glargine 50 units DAILY SQ Last administered on 05/04/25at 09:30; Start 04/30/25 at 09:00; Stop 05/05/25 at 07:21; Status DC Insulin Human Regular 12 unit TIDAC SQ Last administered on 05/02/25at 06:45; Start 04/30/25 at 07:30; Stop 05/02/25 at 08:05; Status DC Hydromorphone HCl 1 mg TIDP PRN IVP Last administered on 04/30/25at 20:44; Start 04/30/25 at 13:00; Stop 05/01/25 at 18:46; Status DC Acetaminophen/ Hydrocodone Bitart 1 tab Q4H PRN PO Last administered on 04/30/25at 22:07; Start 04/30/25 at 12:00; Stop 05/05/25 at 11:59; Status DC Pharmacy Profile Note 1 each ONCE MISC; Start 05/01/25 at 08:00; Stop 04/30/25 at 16:52; Status DC Immune Globulin 400 ml @ 0 mls/hr Q24H IV Last administered on 05/01/25at 16:18; Start 05/01/25 at 14:00; Stop 05/02/25 at 12:38; Status DC Pregabalin 25 mg BID PO Last administered on 05/04/25at 09:22; Start 05/01/25 at 21:00; Stop 05/05/25 at 07:22; Status DC Lisinopril 10 mg DAILY PO Last administered on 05/12/25at 09:13; Start 05/02/25 at 09:00; Stop 05/13/25 at 08:46; Status DC Diphenhydramine HCl 25 mg ONCE PRN IVP; Start 05/01/25 at 15:00; Stop 05/01/25 at 15:06; Status DC Dexamethasone Sodium Phosphate 20 mg ONCE PRN IV; Start 05/01/25 at 15:00; Stop 05/01/25 at 15:05; Status DC Dexamethasone Sodium Phosphate 20 mg ONCALL IV Last administered on 05/02/25at 15:41; Start 05/01/25 at 15:30; Stop 05/03/25 at 15:31; Status DC Diphenhydramine HCl 25 mg ONCALL IVP Last administered on 05/02/25at 15:41; Start 05/01/25 at 15:30; Stop 05/03/25 at 15:31; Status DC Hydromorphone HCl 1 mg TID PRN IVP; Start 05/01/25 at 19:00; Stop 05/05/25 at 12:59; Status DC Insulin Human Regular 15 unit TIDAC SQ Last administered on 05/04/25at 17:33; Start 05/02/25 at 11:30; Stop 05/05/25 at 07:21; Status DC Immune Globulin 400 ml @ 0 mls/hr Q24H IV Last administered on 05/02/25at 16:46; Start 05/02/25 at 16:00; Stop 05/03/25 at 16:01; Status DC Vancomycin HCl 250 ml @ 125 mls/hr Q12H9 IV Last administered on 05/08/25at 08:48; Start 05/04/25 at 21:00; Stop 05/08/25 at 20:49; Status DC Pharmacy Profile Note 1 each ONCE [facility] [place]; Start 05/03/25 at 12:00; Stop 05/03/25 at 12:58; Status DC Gentamicin Sulfate/Sodium Chloride 100 ml @ 200 mls/hr Q24H IV Last administered on 05/08/25at 14:18; Start 05/03/25 at 14:00; Stop 05/08/25 at 21:01; Status DC Dexamethasone Sodium Phosphate 20 mg ONCALL IV Last administered on 05/03/25at 17:23; Start 05/03/25 at 17:15; Stop 05/03/25 at 17:16; Status DC Diphenhydramine HCl 25 mg ONCALL IVP Last administered on 05/03/25at 17:22; Start 05/03/25 at 17:15; Stop 05/03/25 at 17:16; Status DC Immune Globulin 400 ml @ 0 mls/hr Q24H IV Last administered on 05/03/25at 17:57; Start 05/03/25 at 17:15; Stop 05/03/25 at 17:16; Status DC Fluconazole 150 mg ONCE ONCE PO Last administered on 05/04/25at 15:57; Start 05/04/25 at 15:30; Stop 05/04/25 at 15:31; Status DC Insulin Human Regular INSULIN SLIDING SCAL... ACHS SQ Last administered on 05/12/25at 20:58; Start 05/05/25 at 07:30; Stop 06/04/25 at 07:29 Insulin Glargine 30 units DAILY SQ Last administered on 05/07/25at 08:12; Start 05/05/25 at 09:00; Stop 05/07/25 at 23:47; Status DC Insulin Human Regular 12 unit TIDAC SQ; Start 05/05/25 at 07:30; Stop 05/05/25 at 22:51; Status DC Venlafaxine HCl 37.5 mg HS PO Last administered on 05/12/25at 20:57; Start 05/05/25 at 21:00; Stop 06/04/25 at 20:59 Insulin Human Regular 10 unit TIDAC SQ Last administered on 05/07/25at 16:06; Start 05/06/25 at 07:30; Stop 05/07/25 at 23:47; Status DC Dexamethasone Sodium Phosphate 10 mg ONCE ONCE IVP Last administered on 05/06/25at 20:20; Start 05/06/25 at 20:00; Stop 05/06/25 at 20:04; Status DC Diphenhydramine HCl 25 mg ONCE ONCE IV Last administered on 05/06/25at 20:20; Start 05/06/25 at 20:00; Stop 05/06/25 at 20:04; Status DC Insulin Glargine 40 units DAILY SQ Last administered on 05/12/25at 09:15; Start 05/08/25 at 09:00; Stop 05/13/25 at 06:31; Status DC Insulin Human Regular 15 unit TIDAC SQ Last administered on 05/08/25at 17:16; Start 05/08/25 at 07:30; Stop 05/09/25 at 06:24; Status DC Vancomycin HCl 750 mg Q12H IVPB Last administered on 05/09/25at 09:45; Start 05/08/25 at 21:00; Stop 05/09/25 at 13:30; Status DC Gentamicin Sulfate/Sodium Chloride 100 ml @ 200 mls/hr Q12H IV Last administered on 05/09/25at 01:36; Start 05/09/25 at 02:00; Stop 05/09/25 at 13:30; Status DC Insulin Human Regular 18 unit TIDAC SQ Last administered on 05/09/25at 06:49; Start 05/09/25 at 07:30; Stop 05/10/25 at 09:56; Status DC Heparin Sodium (Porcine) 5,000 unit STK-MED ONCE .ROUTE Last administered on 05/09/25at 10:07; Start 05/09/25 at 09:57; Stop 05/09/25 at 09:57; Status DC Pharmacy Profile Note 1 each ONCE MISC; Start 05/09/25 at 13:00; Stop 05/09/25 at 13:42; Status DC Nystatin apply abdominal fold/perineum BID TP Last administered on 05/13/25at 08:51; Start 05/09/25 at 21:00; Stop 06/08/25 at 20:59 Daptomycin 1000 mg/Sodium Chloride 100 ml @ 200 mls/hr Q24H IV Last administered on 05/11/25at 16:20; Start 05/09/25 at 15:00; Stop 05/12/25 at 17:41; Status DC Ceftaroline Fosamil 400 mg/ Sodium Chloride 250 ml @ 250 mls/hr Q12H IV Last administered on 05/13/25at 06:03; Start 05/09/25 at 17:00; Stop 05/19/25 at 16:59 Insulin Human Regular 10 unit TIDAC SQ Last administered on 05/11/25at 12:10; Start 05/10/25 at 11:30; Stop 06/09/25 at 11:29 Diphenhydramine HCl 25 mg ONCE ONCE IV Last administered on 05/11/25at 01:55; Start 05/11/25 at 02:00; Stop 05/11/25 at 02:01; Status DC Lidocaine 1 patch ONCE ONCE TP Last administered on 05/11/25at 05:34; Start 05/11/25 at 05:30; Stop 05/11/25 at 05:32; Status DC Pantoprazole Sodium 40 mg DAILY PO Last administered on 05/13/25at 08:48; Start 05/11/25 at 09:00; Stop 06/10/25 at 08:59 Tramadol HCl 50 mg Q6H PRN PO Last administered on 05/12/25at 22:31; Start 05/11/25 at 22:00; Stop 05/16/25 at 21:59 Lidocaine 1 patch Q24H TP; Start 05/12/25 at 05:00; Stop 06/11/25 at 04:59 Phytonadione 10 mg/Sodium Chloride 51 ml @ 100 mls/hr ONCE ONCE IVPB Last administered on 05/12/25at 16:53; Start 05/12/25 at 16:00; Stop 05/12/25 at 16:30; Status DC Daptomycin 1000 mg/Sodium Chloride 100 ml @ 200 mls/hr Q24H IV Last administered on 05/12/25at 18:40; Start 05/12/25 at 18:00; Stop 05/22/25 at 17:59 Gadoterate Meglumine 10 mmol STK-MED ONCE IV; Start 05/12/25 at 17:55; Stop 05/12/25 at 18:00; Status DC Insulin Glargine 30 units DAILY SQ; Start 05/13/25 at 09:00; Stop 06/12/25 at 08:59 PARAG VANG MD May 13, 2025 12:20
[2025-05-13] MEDS ORDERED: LACTOSE-REDUCED VAN/STB/CHOC 237 ML BOTTLE PO ONE (13:00)
--- NOTE | 2025-05-13 13:29 | PN ---
[facility] PROGRESS NOTE Date of Service: May 13, 2025 Time of Service: 13:25 SUBJECTIVE: This is a 54-year-old female with past medical history of undiagnosed obstructive sleep apnea, diabetes type 2, hypertension, hyperlipidemia, hypothyroidism, restless leg syndrome, anxiety disorder,depression, lupus and severe morbid obesity who presents to the ED for complaints of severe low back pain which started 2 weeks ago and getting worse for the past 2 days and patient reports she is taking prednisone 30mg po daily for her Lupus she said.Patient also reports she was recently seen in this ED for similar complaints and was diagnosed with acute lumbosacral myofascial strain. 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 Urinalysis consistent with urinary tract infection. CT abdomen and pelvis result revealed no acute intra-abdominal or pelvic pathology cirrhotic liver morphology with splenomegaly, consistent with portal hypertension. Bilateral r enal cortical thickening may reflect renal parenchymal disease. While in the ER patient received Rocephin 1 g IV, 1 L NS bolus. We will admit patient for further medical management. 04/23/25 Patient was seen and examined at bedside. She was complaining of chest pain early in the morning but her EKG and troponin were normal. Patient says she got liver cirrhosis from taking Tylenol with codeine in the past for a long time. Remarkable labs are Na 129, K 6.4. Cl 98, BUN 44. Cr 1.2 with no anion gap. New EKG shows sinus rhythm with no tall T-waves or shortened QT interval. We will give her a dose of calcium gluconate and lokelma and recheck her labs. we will hold her iv fluids for now. Her urine anion gap is 36.0 mEq/l. Repeat potassium was 4.2 and 4.6. We will order CT lumbar spine and request nephro and cardio consults due to hyponatremia, RTA and cirrhosis with portal hypertension res pectively. We will order lupus, complement , anemia panel due to her abnormal labs and h/o SLE. Hematology recommended solu medrol 125 q6. she might need hydrochloroquine upon discharge for SLE 04/24/25 Patient was seen and examined at bedside. She is complaining of widespread generalized body pain with tender points and generalized weakness, her CPK is going up, we will repeat it and start her on pregabalin. Her labs are improving. She had an EGD done last year that showed grade III varices but lost to follow up with TDS. No GI intervention as her Hb is stable. Will start her on vancomycin. Her home meds have been reconciled. She takes venlaflaxine and pramipexole for depression and restless leg syndrome respectively. Her elevated urine anion gap could be due to BALTAZAR or NSAID induced kidney injury but her creatinine is improving. Pending abdominal ultrasound and CT lumbar spine result s. 04/25/25 Patient was seen and examined. She was observed sitting in a chair but was unable to answer questions appropriately and appeared confused. Ammonia level was elevated at 59; lactulose has been initiated at 30 mL TID. She is currently receiving vancomycin for MRSA identified in the urine. Right upper quadrant ultrasound demonstrated chronic hepatic changes with a hypoechoic lesion in the right lobe of the liver, possibly representing a complex cyst. CT of the lumbar spine revealed moderate lumbar spondylosis and diffuse osteopenia. Her platelet count is 37 and showing slow improvement. Dr. Urias, covering for Dr. Lorenzo, recommended holding solu-medrol for now. If platelet count declines tomorrow, steroids may need to be restarted. Ammonia and additional labs will be rechecked in the morning. 04/26/25 Patient was seen at bedside. Will request a transfer to the ICU due to worsening agitation and hypercapnic respiratory failure requiring BIPAP support.Will order Precedex drip for sedation to improve tolerance of non-invasive ventilation. Imaging studies including CT head and MRI spine have been ordered to evaluate for underlying neurologic causes. Patient remains hemodynamically stable; pulmonary consult is in place. She is growing gram positive cocci in clusters in her blood, will request ID input on antibiotics as she was on vancomycin previously and was started on bactrim for MRSA in urine. Her platelet count is 36 and solu-medrol is on hold. Ammonia improved from 59 to 12 04/27/25 Patient was evaluated at bedside. She was transferred to the ICU yesterday due to agitation and hypercapnia, requiring a Precedex drip as she was removing her nasal cannula. BiPAP was initiated to support ventilation, and she is now resting comfortably. CT brain was unremarkable with no acute findings. She has a free water deficit of approximately 1.4 liters, for which D5W will be administered. CRP has decreased from 83.5 to 56.4. However, platelets have dropped from 36 to 28, and hematology is closely monitoring her. The patient remains NPO. We wanted to start NG tube feeding but patient has h/o esophageal varices. We will await gastroenterologys recommendations, including possible EGD if indicated. 04/28/25 Patient was evaluated at bedside, she is bed bound not very responsive to questions. She is currently off BiPAP and precedex drip. Her agitation has improved and she is resting comfortably in bed. She has MRSA bacteremia and we will repeat blood cultures. She is currently on vancomycin. She has moderate right hydronephrosis which is increasing, we will request urology consult. Her sodium is trending upwards from 147 to 152 and she has a free water deficit of 2.4 L , we will increase D5 rate from 75 to 150mls/hr. CRP improving from 56.4 to 42.7. Platelets dropped from 28 to 21, we will follow Dr. Lorenzo's recommendations and his plan is give her IgG. She is not bleeding actively. 04/29/25 Patient was evaluated at bedside. She is alert, awake and oriented. She was minimally verbal yesterday but is now more interactive, expressing pain and discussing her medical history. She reports diffuse joint pain and is unable to lift her arms or legs due to significant discomfort. She has generalized joint tenderness and weak criminal court judge strength bilaterally. urologist Dr. Colin recommended nephrostomy tube on her right due to hydronephrosis. Her platelets improved to 44 without any intervention. She will be getting platelets for the procedure. She has infectious spondylodiscitis which could be the source of her bacteremia. We have requested transfer to [facility] but house worker said Dr. Sanchez has privileges at [facility] and will try to consult him. Her white count went up to 12.2, LFTs mildly going up. We will hold off on gabapentin for now. 04/30/25 Patient was evaluated at bedside. She is alert, awake and oriented. Her vitals are stable. She is interactive, expressing pain and discussing her medical history. She reports diffuse joint pain and is able to lift her arms or legs slightly due to pain and discomfort. Her active and passive range of motions are limited. She has generalized joint tenderness and weak criminal court judge strength bilaterally. She also passed stool more than 5 times yesterday could be due to lactulose which has been stopped from today. A Percutaneous fluroscopy-guided placement of an 8-F nephrostomy catheter was performed,the patient tolerated the procedure well. Neurosurgeon Dr. Sanchez saw the patient and came up with possible diagnosis of discitis and osteomyelitis at L2-L3 along with psoas inflammation. She has spondylolisthesis which is non- critical and can be managed medically for now. According to Dr. Lorenzo she will benefit from IVIg for 3 days on the background of possible ITP. Her current platelet is 41 and Hgb 9.6. Also, Endocrinology team adjusted Insulin regimen. We have requested cardiology consult for suspected endocarditis and will request RAMAN although she has thrombocytopenia and h/o esophageal varices. 05/01/25 Patient was evaluated at bedside. She is alert, awake and oriented. Her vitals are stable, except blood pressure which is 158/80. She reports diffuse joint pain and is able to lift her arms or legs slightly due to pain and discomfort. Her active and passive range of motions are limited. She has generalized joint tenderness and weak criminal court judge strength bilaterally. As per Dr. Lorenzo she will be started IVIG from today for 3 days. As per the Cardiology, she won't undergo RAMAN due thrombocytopenia, cirrhosis, varices. We will continue IV antibiotics and add low dose pregabalin for her pain. 05/02/25 Patient was evaluated at bedside. She is alert, awake and oriented. Her vitals are stable, except blood pressure which is 157/81. Labs showed WBC decreasing from 11.6 to 5.7, platelets from 44 to 32 and random glucose of 226. There has been marked decline in pain. We will continue IV antibiotics and she is receiving Immune globulin every 24 hr. Her Insulin dosage has been adjusted. Blood culture showed gram positive cocci in clusters, STAPHYLOCOCCUS AUREUS. Her prognosis remains guarded. Plan is to discharge her to [facility] for 6 weeks of IV antibiotics. 05/03/25 Patient was evaluated at bedside. She is alert, awake and oriented. Her vitals are stable,and her blood pressure which is 137/70. Labs showed WBC 7.8 , platelets from increasing from 32 to 44 and random glucose of 232. Her creatinine level is 1.2. There has been marked decline in pain and discomfort. We will continue IV antibiotics and she is receiving Immune globulin every 24 hr. Her last dose for Immune globulin is today. Her Insulin dosage has been adjusted. Blood culture showed gram positive cocci. Her prognosis remains guarded. She is on IV vancomycin. Plan is to discharge her to [facility] for 6 weeks of IV antibiotics. 05/04/25: The patient was evaluated at the bedside today. She had just finished showering and reported new-onset slurred speech, facial weakness and word- finding difficulty. She reports no weakness in the extremities. Blood cultures remain positive for gram-positive cocci, specifically MRSA. She is continuing on vancomycin, and gentamicin was initiated yesterday per Infectious Disease recommendations. She has completed a total of three IV IgG infusions. Platelet count is currently 31,000, decreased from 41,000 yesterday. Additionally, the patient has developed a groin rash with associated itching. Physical therapy noted that she was unable to ambulate today and experienced significant difficulty with mobility. We will continue to closely monitor her neurological status, platelet counts, and overall clinical response. Repeat blood cultures will be obtained at an appropriate interval following the initiation of gentamicin, per Infectious Disease guidance. Further assessment and management plan are outlined below. 05/05/25 The patient was evaluated at the bedside today. Her vitals are stable and comm unicated well. She complaints of pain in the neck and shoulder. She reports no weakness in the extremities. Blood cultures remain positive for gram-positive cocci, specifically MRSA. She is continuing on vancomycin, and gentamicin per Infectious Disease recommendations. Repeat blood cultures will be obtained at an appropriate interval following the initiation of gentamicin. She has completed a total of three IV IgG infusions. Platelet count is currently decreased [place] 31,000 [place] [address]. Her WBC is 6.8 and Hgb is 8.6. Her insulin medications has been adjusted by the endocrinology team. Additionally, the patient's groin rash with associated itching has been improving. She has been prescribed for Venlafaxine for management of depression and anxiety. Also Case management updated that they are in communication [facility], Insurance approval is still pending; no authorization has been granted as of this time. Further assessment and management plan are outlined below. 05/06/25 The patient was evaluated at the bedside today. Her vitals are stable and communicated well. Her pain is gradually decreasing. She reports no weakness in the extremities. Blood cultures remain positive for gram-positive cocci, specifically MRSA. Blood culture has been sent today after 3 days of gentamicin. She is continuing on vancomycin, and gentamicin per Infectious Disease recommendations. . She has completed a total of three IV IgG infusions. Platelet count is currently decreased from 31,[address] Lorenzo, she has been planned for the transfusion of platelets today. Her WBC is 5.1, Hgb is 8.9, CRP 61.50 and whole blood glucose 233. In addition,PT is 17.2, INR 1.71, APTT 36.3 and Fibrinogen 119. Also, the Liver enzymes are elevated with total bilirubin of 1.6, AST 166, ALT 136 and ALP 358. Her Vancomycin trough level has increased from 5.0 to 18.1. Her insulin medications has been adjusted by the endocrinology team. Additionally, the patient's groin rash has been improving. As per Nephrology, the patient's renal function has actually greatly improved &the patient is being seen by case management in regards to placement at the [facility]. We will continue to follow the patient closely. 05/07/25 The patient was evaluated at the bedside today. Her vitals are stable and communicated well. Her pain has reduced significantly. Preliminary Blood cultures showed positive for gram-positive cocci which was done yesterday after 3 days of gentamicin. PICC line has been removed as per ID recommendation. [place] [address] today. Fecal occult blood test is positive. She received platelets transfusion yesterday. Her WBC is trending downwards from 5.1 to 3.0, Hgb is 8.4, and whole blood glucose 245. In addition, PT is 17.2, INR 1.71, APTT 36.3 and Fibrinogen 119. Her D-dimer is 7184. She has been planed today for bilateral US venous Doppler,V/Q scan and CTPA. Her Liver enzymes revealed total bilirubin of 1.9, AST 120, ALT 125 and ALP 371. Her Vancomycin trough level has decreased from 18.1 to 0.2. Her insulin medications has been followed by the endocrinology team. As per Dr Lorenzo, the patient can be transferred to [facility] as soon as accepted and he is trying to get her Promacta, medicine that raises the platelets,once its available. The WBC-tagged scan has been deferred and rescheduled for tomorrow to avoid excessive radiation exposure since patient was initially planned for V/Q scan today. 05/08/25 The patient was evaluated at the bedside today. Her vitals are stable and communicated well. She complained of hyperventilation in the night. Platelet count [id number] today. Her WBC is 5.6, Hgb is 9.1, and whole blood glucose is 314 . In addition, PT is 16, INR 1.58, APTT 35 and Fibrinogen 122. Her D-dimer is 6586. Her V/Q scan wasn't completed because she couldn't lie flat. The US venous doppler (B/L) was done which revealed no deep venous thrombosis evident in the bilateral lower extremity and No superficial thrombophlebitis in the bilateral lower extremity. Her Liver enzymes revealed total bilirubin of 1.9, AST 102, ALT 124 and ALP 391. Her Gentamicin peak and trough level is 0.2 and 0.3 respectively. Her insulin medications has been followed by the endocrinology team. We are awaiting for WBC tagged scan report. 05/09/25 The patient was evaluated at the bedside today. Her vitals are stable and communicated well. She complained of right lower [place] [address] today. Her WBC is 6.2, Hgb is 8.7, and random blood glucose is 236. Blood culture is positive for gram positive cocci. According to ID recommendation, Patient is started on Daptomycin and Ceftaroline. As per Dr Lorenzo, he is trying to get the promacta. Her Liver enzymes revealed total bilirubin of 1.8, AST 128, ALT 139 and ALP 410. Her creatinine is 1.2 and BUN is 41. Participation with physical therapy has been improving. We will continue to monitor patient. 05/10/25 The patient was evaluated at the bedside today. Her vitals are stable and communicated well. [place] [address] [place] [address]. Her WBCs trending downwards from 6.2 to 4.7, RBC 3.34, hemoglobin 8.8. Blood culture is positive for gram positive cocci. According to ID recommendation, Patient is on Day 2 of Daptomycin and Ceftaroline. Blood cultures will be sent on Monday. She did her 1st cycle of WBC tagged scan test. It will be done on 48 hours and then 72 hours. After that we will have the conclusive findings if anything is present. Her creatinine is trending upwards from 1.2 to 1.5 and blood urea nitrogen is 39. Her CRP is 47.80. Her creatinine is 1.2 and BUN is 41. Participation with physical therapy has been improving. As per the recommendation of Endocrinology she is getting Lantus 30 units daily and Humalog 10 units t.i.d. before beats patient's glucose are improving. Today's random blood glucose was 182. We will continue to monitor the patient. 05/11/25 The patient was evaluated at the bedside today. She complained of right upper quadrant pain. She is stable hemodynamically. Platelet count 83783. Her WBCs trending up from 4.7 to 6.8, hemoglobin 8.1. Blood culture is positive for gram positive cocci. According to ID recommendation, Patient is on Day 3 of Daptomycin and Ceftaroline. Blood cultures will be sent on Monday. She did her 2nd cycle of WBC tagged scan test. Next cycle will be done today and tomorrow.. After that we will have the conclusive findings if anything is present. Her creatinine is trending upwards from 1.2< 1.5<1.8 and blood urea nitrogen is 41. LFT trending up, bilirubin 2.1, AST 153, ALT 154, ALP 443. Her CRP is 47.80. Participation with physical therapy has been improving. As per the recommendation of Endocrinology she is getting Lantus 40 units daily and Humalog 10 units t.i.d with sliding scale insulin.. Today's random blood glucose was 210. We will continue to monitor the patient. Hematology, ID and nephrology on the board. Plan as discussed below 05/12/25 The patient was evaluated at the bedside today. She complained of right upper quadrant pain. She is [place] [address]. Her WBCs trending up from 4.7 to 6.8 to 8.4 toady, hemoglobin 8.1 to 8.4. Blood culture is positive for gram positive cocci. According to ID recommendation, Patient is on Day 4 of Daptomycin and Ceftaroline. Blood cultures will be sent today. She did her all the cycles of of WBC tagged scan test and we are awaiting the final results. Her creatinine is trending upwards from 1.2< 1.5<1.8<1.9 and blood urea nitrogen is 44. Her total creatine kinase is 383. LFT trending up, bilirubin 2.2, AST 161, ALT 158, ALP 451. Her albumin is 1.4. Ultrasonography done on 05/11 revealed increased echogenicity of the right kidney which may reflect renal parenchymal disease. Previously demonstrated liver lesion and right hydronephrosis are not visualized. Chronic hepatitis disease was present. She will receive vitamin K 10 mg. Along with other lab parameters we will check the coagulation profile. She has been planned for MRI of lumbar spine with contrast. As per the recommendation of Endocrinology she is getting Lantus 30 units daily and Humalog 10 units t.i.d with sliding scale insulin. Today's random blood glucose was 162. We will continue to monitor the patient. Hematology, ID and nephrology on the board. Plan as discussed below. 05/13/25 The patient was evaluated at the bedside today. She has petechiae [place] [address]. Her WBCs is 8.5, hemoglobin 8.1. Blood culture done on 05/12 is positive for gram positive cocci in clusters. She is continued Daptomycin and Ceftaroline (Day 5). Dr Sanchez, the neurosurgeon has been consulted for Intradiscal collection with extension into tepidural space in the lumbar region (L2-L3 level). We have also consulted dietitian for her poor appetite. We will give IV albumin for possible hepatorenal syndrome. REVIEW OF SYSTEMS CONSTITUTIONAL: No fever, chills, or night sweats. NEUROLOGICAL: Denies headache, sensory and motor deficit. CARDIOVASCULAR: Denies any exertional angina, dyspnea on exertion, orthopnea, paroxysmal nocturnal dyspnea, palpitations. PULMONARY: Complained of hyperventilation in the night,Denies any shortness of breath, cough, phlegm/sputum, hemoptysis, pleuritic chest pain. GASTROINTESTINAL: Denies nausea, vomiting. Denies pain, tenderness around the abdomen. GENITOURINARY: Denies frequency, urgency, nocturia, hematuria or incontinence. PHYSICAL EXAM GENERAL APPEARANCE: The patient is alert, awake and oriented and bedbound. NEUROLOGICAL: No sensory and motor deficits. CHEST: Normal chest expansion. LUNGS: Absence of any rales, rhonchi or any wheezing. CARDIOVASCULAR: Regular. S1 and S2 normal. No appreciable rubs, murmurs or gallops. ABDOMEN: Soft nontender, and nondistended. There is no rebound, voluntary guarding, or rigidity. GENITOURINARY: S/P day 10, Nephrostomy tube on the right side SKIN AND INTEGUMENTARY: Petechiae noted on different parts of the body. Vital Signs (last 8hr) Date Time Temp Pulse Resp B/P (MAP) Pulse Ox O2 Delivery O2 Flow Rate FiO2 05/13/25 12:00 97.9 76 15 118/55 91 Room Air 05/13/25 08:00 98.1 70 20 113/48 91 Room Air LABS: Laboratory: Test 05/13/25 11:49 05/13/25 04:18 05/12/25 12:35 05/12/25 04:44 Range/Units Whole Blood Glucose 106 70-110 MG/DL White Blood Count 8.5 4.8-10.8 K/uL Red Blood Count 3.00 L 4.00-5.50 MIL/uL Hemoglobin 8.1 L 12.0-16.0 g/dL Hematocrit 25.2 L 36-48 % Mean Corpuscular Volume 84.0 79-99 fL Mean Corpuscular Hemoglobin 27.0 27.0-33.0 pg Mean Corpuscular Hemoglobin Concent 32.1 32.0-36.0 g/dL Red Cell Distribution Width 26.5 H 11.0-15.5 % Platelet Count 26 L 130-400 K/uL Mean Platelet Volume 7.5-10.5 fL Nucleated Red Blood Cells 0.0 0.0-0.19 % Prothrombin Time 16.9 H 9.6-11.6 SEC Prothromb Time International Ratio 1.68 H 0.85-1.15 Activated Partial Thromboplast Time 45.8 H 26.3-35.5 SEC Sodium Level 132 L 136-145 mmol/L Potassium Level 4.9 3.5-5.1 mmol/L Chloride Level 103 101-111 mmol/L Carbon Dioxide Level 26 21-32 mmol/L Blood Urea Nitrogen 50 H 7-18 mg/dL Creatinine 2.6 H 0.5-1.0 mg/dL Glomerular Filtration Rate Calc 21 >90 mL/min Random Glucose 124 H 70-105 mg/dL Total Calcium 8.1 L 8.5-10.1 mg/dL Total Bilirubin 2.0 H 0.2-1.0 mg/dL Aspartate Amino Transf (AST/SGOT) 198 H 10-37 U/L Alanine Aminotransferase (ALT/SGPT) 168 H 12-78 U/L Alkaline Phosphatase 498 H 50-136 U/L Total Creatine Kinase 590 #*H 21-232 U/L Total Protein 7.2 6.0-8.3 g/dL Albumin 1.3 L 3.5-5.0 g/dL Urine Random Creatinine 85.06 30-135 mg/dL Urine Random Sodium 19 L 40-220 mmol/l Urine Random Potassium 34 25-125 mmol/L Urine Random Chloride 32 L 110-250 mmol/L Immature Granulocyte % (Auto) 1.3 H 0-1 % Neutrophils (%) (Auto) 82.0 H 40.0-77.0 % Lymphocytes (%) (Auto) 6.4 L 21.0-51.0 % Monocytes (%) (Auto) 8.4 3.0-13.0 % Eosinophils (%) (Auto) 1.8 0.0-8.0 % Basophils (%) (Auto) 0.1 0.0-5.0 % Neutrophils # (Auto) 6.9 1.8-7.7 K/uL Lymphocytes # (Auto) 0.5 L 1.0-4.8 K/uL Monocytes # (Auto) 0.7 0.1-1.0 K/uL Eosinophils # (Auto) 0.15 0.00-0.70 K/uL Basophils # (Auto) 0.01 0.00-0.20 K/uL Absolute Immature Granulocyte (auto 0.11 0-1 K/uL Fibrinogen 117 L 180-350 mg/dL Phosphorus Level 4.3 2.5-4.9 mg/dL Magnesium Level 1.90 1.80-2.40 mg/dL Test 05/11/25 18:55 Range/Units D-Dimer Quantitative (PE/DVT) 7068 *H 0-500 ng/mL Current Medications Medications (Trade) Dose Ordered Sig/Roberth Route PRN Reason Start Time Stop Time Status Last Admin Dose Admin Acetaminophen (TYLenol 325MG TAB) 650 mg Q4H PRN PO MILD PAIN (1-3) 04/22/25 20:00 05/22/25 19:59 05/11/25 21:31 650 MG Acetaminophen (TYLenol 325MG TAB) 650 mg Q6H PRN PO TEMPERATURE GREATER THAN 101.5 04/22/25 20:00 05/22/25 19:59 04/23/25 10:02 650 MG Acetaminophen/ Hydrocodone Bitart (NORco 5/325MG) 1 tab Q4H PRN PO MODERATE PAIN (4-6) 04/30/25 12:00 05/05/25 11:59 DC 04/30/25 22:07 1 TAB Atorvastatin Calcium (LIPItor 20MG) 20 mg HS PO 04/24/25 21:00 05/24/25 20:59 05/12/25 20:57 20 MG Ceftaroline Fosamil 400 mg/ Sodium Chloride 250 ml @ 250 mls/hr Q12H IV 05/09/25 17:00 05/19/25 16:59 05/13/25 06:03 250 MLS/HR Ceftriaxone Sodium 1 gm/ Sodium Chloride 50 ml @ 100 mls/hr BID IV 04/22/25 21:00 04/22/25 19:59 DC Ceftriaxone Sodium (ROCEphine 1G INJ) 1 gm BID IVPB 04/22/25 21:00 04/22/25 20:44 DC Ceftriaxone Sodium (ROCEphine 1G INJ) 1 gm BID IVPB 04/23/25 09:00 04/25/25 12:36 DC 04/25/25 09:44 1 GM Daptomycin 1000 mg/Sodium Chloride 100 ml @ 200 mls/hr Q24H IV 05/09/25 15:00 05/12/25 17:41 DC 05/11/25 16:20 200 MLS/HR Daptomycin 1000 mg/Sodium Chloride 100 ml @ 200 mls/hr Q24H IV 05/12/25 18:00 05/22/25 17:59 05/12/25 18:40 200 MLS/HR Dexamethasone Sodium Phosphate (dexaMETHasone 4MG/ML 1ML VIAL) 20 mg ONCALL IV 05/01/25 15:30 05/03/25 15:31 DC 05/02/25 15:41 20 MG Dexamethasone Sodium Phosphate (dexaMETHasone 4MG/ML 1ML VIAL) 20 mg ONCALL IV 05/03/25 17:15 05/03/25 17:16 DC 05/03/25 17:23 20 MG Dexamethasone Sodium Phosphate (dexaMETHasone 4MG/ML 1ML VIAL) 20 mg ONCE PRN IV PRE-MED 05/01/25 15:00 05/01/25 15:05 DC Dexmedetomidine/ Sodium Chloride (PRECEdex 200MCG/ 50ML-NS) 200 mcg PROTOCOL IV 04/26/25 12:00 04/26/25 14:54 DC Dexmedetomidine/ Sodium Chloride (PRECEdex 400MCG/ 100ML-NS) 400 mcg PROTOCOL PRN IV ANXIETY/AGITATION 04/26/25 19:30 05/01/25 12:45 DC 04/27/25 23:31 400 MCG Dexmedetomidine/ Sodium Chloride (PRECEdex 400MCG/ 100ML-NS) 400 mcg PROTOCOL STAT IV 04/26/25 14:53 04/26/25 14:58 DC 04/26/25 15:18 400 MCG Dextrose 1,000 ml @ 75 mls/hr [id number] IV 04/26/25 12:00 04/30/25 09:36 DC 04/29/25 04:27 150 MLS/HR Dextrose (D50w) 50 ml AD PRN IV HYPOGLYCEMIA PROTOCOL 04/22/25 20:00 05/22/25 19:59 Diphenhydramine HCl (BENAdryl INJ) 25 mg ONCALL IVP 05/01/25 15:30 05/03/25 15:31 DC 05/02/25 15:41 25 MG Diphenhydramine HCl (BENAdryl INJ) 25 mg ONCALL IVP 05/03/25 17:15 05/03/25 17:16 DC 05/03/25 17:22 25 MG Diphenhydramine HCl (BENAdryl INJ) 25 mg ONCE PRN IVP PRE-MED 05/01/25 15:00 05/01/25 15:06 DC Famotidine (Pepcid 20mg Tab) 20 mg DAILY PO 04/23/25 09:00 04/24/25 09:48 DC 04/23/25 09:33 20 MG Gabapentin (NEURontin 300 MG CAP) 300 mg BID PO 04/24/25 21:00 04/28/25 09:10 DC 04/25/25 21:51 300 MG Gentamicin Sulfate/Sodium Chloride 100 ml @ 200 mls/hr Q12H IV 05/09/25 02:00 05/09/25 13:30 DC 05/09/25 01:36 200 MLS/HR Gentamicin Sulfate/Sodium Chloride 100 ml @ 200 mls/hr Q24H IV 05/03/25 14:00 05/08/25 21:01 DC 05/08/25 14:18 200 MLS/HR Glucagon (Glucagon 1mg Kit) 1 mg AD PRN IM HYPOGLYCEMIA PROTOCOL 04/22/25 20:00 05/22/25 19:59 Heparin Sodium (Porcine) (HEParin 5,000 UNIT VIAL) 5,000 unit Q8H SQ 04/25/25 09:00 04/25/25 08:40 DC Hydromorphone HCl (DiLAUDid 0.5MG INJ) 0.5 mg BIDPRN PRN IVP SEVERE PAIN (7-10) 04/25/25 19:00 04/30/25 11:59 DC 04/29/25 23:31 0.5 MG Hydromorphone HCl (DiLAUDid 0.5MG INJ) 0.5 mg Q6H PRN IVP SEVERE PAIN (7-10) 04/23/25 14:00 04/25/25 08:25 DC 04/25/25 04:14 0.5 MG Hydromorphone HCl (DiLAUDid 1MG INJ) 1 mg TID PRN IVP SEVERE PAIN (7-10) 05/01/25 19:00 05/05/25 12:59 DC Hydromorphone HCl (DiLAUDid 1MG INJ) 1 mg TIDP PRN IVP SEVERE PAIN (7-10) 04/30/25 13:00 05/01/25 18:46 DC 04/30/25 20:44 1 MG Immune Globulin 400 ml @ 0 mls/hr Q24H IV 05/01/25 14:00 05/02/25 12:38 DC 05/01/25 16:18 37.5 MLS/HR Immune Globulin 400 ml @ 0 mls/hr Q24H IV 05/02/25 16:00 05/03/25 16:01 DC 05/02/25 16:46 37.5 MLS/HR Immune Globulin 400 ml @ 0 mls/hr Q24H IV 05/03/25 17:15 05/03/25 17:16 DC 05/03/25 17:57 37.5 MLS/HR Insulin Glargine (LANtus 100 UNITS/ML 10 ML VIAL) 10 units HS SQ 04/24/25 21:00 04/24/25 16:57 DC Insulin Glargine (LANtus 100 UNITS/ML 10 ML VIAL) 10 units ONCE STAT SQ 04/24/25 10:54 04/24/25 11:00 DC 04/24/25 11:19 10 UNITS Insulin Glargine (LANtus 100 UNITS/ML 10 ML VIAL) 15 units HS SQ 04/24/25 21:00 04/24/25 17:06 DC Insulin Glargine (LANtus 100 UNITS/ML 10 ML VIAL) 30 units DAILY SQ 05/05/25 09:00 05/07/25 23:47 DC 05/07/25 08:12 30 UNITS Insulin Glargine (LANtus 100 UNITS/ML 10 ML VIAL) 30 units DAILY SQ 05/13/25 09:00 06/12/25 08:59 Insulin Glargine (LANtus 100 UNITS/ML 10 ML VIAL) 30 units ONCE SQ 04/24/25 17:00 04/25/25 06:19 DC 04/24/25 18:16 30 UNITS Insulin Glargine (LANtus 100 UNITS/ML 10 ML VIAL) 40 units DAILY SQ 05/08/25 09:00 05/13/25 06:31 DC 05/12/25 09:15 40 UNITS Insulin Glargine (LANtus 100 UNITS/ML 10 ML VIAL) 40 units DAILY SQ 04/29/25 09:00 04/30/25 07:31 DC Insulin Glargine (LANtus 100 UNITS/ML 10 ML VIAL) 50 units DAILY SQ 04/26/25 09:00 04/29/25 06:49 DC 04/28/25 08:46 50 UNITS Insulin Glargine (LANtus 100 UNITS/ML 10 ML VIAL) 50 units DAILY SQ 04/30/25 09:00 05/05/25 07:21 DC 05/04/25 09:30 50 UNITS Insulin Human Regular (humuLIN R 100 UNIT/ML 3ML) 5 unit TIDAC SQ 04/24/25 17:00 04/24/25 17:06 DC Insulin Human Regular (humuLIN R 100 UNIT/ML 3ML) 8 unit TIDAC SQ 04/28/25 07:30 04/30/25 07:31 DC 04/30/25 06:15 8 UNIT Insulin Human Regular (humuLIN R 100 UNIT/ML 3ML) 10 unit TIDAC SQ 05/06/25 07:30 05/07/25 23:47 DC 05/07/25 16:06 10 UNIT Insulin Human Regular (humuLIN R 100 UNIT/ML 3ML) 10 unit TIDAC SQ 05/10/25 11:30 06/09/25 11:29 05/11/25 12:10 10 UNIT Insulin Human Regular (humuLIN R 100 UNIT/ML 3ML) 10 unit TIDAC SQ 04/24/25 17:00 04/25/25 06:17 DC 04/25/25 06:15 10 UNIT Insulin Human Regular (humuLIN R 100 UNIT/ML 3ML) 12 unit TIDAC SQ 05/05/25 07:30 05/05/25 22:51 DC Insulin Human Regular (humuLIN R 100 UNIT/ML 3ML) 12 unit TIDAC SQ 04/30/25 07:30 05/02/25 08:05 DC 05/02/25 06:45 12 UNIT Insulin Human Regular (humuLIN R 100 UNIT/ML 3ML) 15 unit TIDAC SQ 05/02/25 11:30 05/05/25 07:21 DC 05/04/25 17:33 15 UNIT Insulin Human Regular (humuLIN R 100 UNIT/ML 3ML) 15 unit TIDAC SQ 05/08/25 07:30 05/09/25 06:24 DC 05/08/25 17:16 15 UNIT Insulin Human Regular (humuLIN R 100 UNIT/ML 3ML) 15 unit TIDAC SQ 04/26/25 11:30 04/27/25 20:30 DC Insulin Human Regular (humuLIN R 100 UNIT/ML 3ML) 18 unit TIDAC SQ 05/09/25 07:30 05/10/25 09:56 DC 05/09/25 06:49 18 UNIT Insulin Human Regular (humuLIN R 100 UNIT/ML 3ML) 25 unit TIDAC SQ 04/25/25 07:30 04/26/25 07:58 DC 04/25/25 17:39 25 UNIT Insulin Human Regular (humuLIN R 100 UNIT/ML 3ML) INSULIN SLIDING SCAL... ACHS SQ 04/22/25 21:00 04/24/25 16:16 DC 04/24/25 11:18 8 UNIT Insulin Human Regular (humuLIN R 100 UNIT/ML 3ML) INSULIN SLIDING SCAL... ACHS SQ 05/05/25 07:30 06/04/25 07:29 05/12/25 20:58 4 UNIT Insulin Human Regular (humuLIN R 100 UNIT/ML 3ML) INSULIN SLIDING SCAL... ACHS SQ 04/24/25 16:30 04/25/25 14:09 DC 04/25/25 11:57 16 UNIT Insulin Human Regular (humuLIN R 100 UNIT/ML 3ML) INSULIN SLIDING SCAL... ACHS SQ 04/25/25 16:30 05/04/25 23:42 DC 05/04/25 20:49 6 UNIT Insulin Human Regular (humuLIN R 100 UNIT/ML 3ML) INSULIN SLIDING SCAL... Q4H SQ 04/27/25 20:30 04/28/25 09:11 DC 04/28/25 06:00 4 UNIT Lactated Ringer's 1,000 ml @ 100 mls/hr Q10H IV 04/22/25 20:00 04/23/25 10:09 DC 04/23/25 06:00 100 MLS/HR Lactulose (Constulose 20gm/ 30ml Udcup) 30 gm TID PO 04/25/25 11:00 04/30/25 09:45 DC 04/30/25 09:16 30 GM Levothyroxine Sodium (SYNTHroid 125MCG TAB) 125 mcg DAILY@0630 PO 04/25/25 06:30 05/25/25 06:29 05/13/25 06:46 125 MCG Lidocaine (Lidoderm Patch 5%) 1 patch Q24H TP 05/12/25 05:00 06/11/25 04:59 Lisinopril (Prinivil 10mg) 10 mg DAILY PO 05/02/25 09:00 05/13/25 08:46 DC 05/12/25 09:13 10 MG Magnesium Sulfate 50 ml @ 0 mls/hr PROTOCOL PRN IV OTHER [SEE ORDER COMMENTS] 04/22/25 20:00 05/22/25 19:59 Methylprednisolone Sodium Succinate (Solu-medROL 125MG) 125 mg Q6H IVP 04/23/25 08:00 04/28/25 09:10 DC 04/25/25 09:45 125 MG Metoprolol Succinate (TopROL XL) 50 mg AM PO 04/25/25 09:00 05/25/25 08:59 05/13/25 08:48 50 MG Nystatin (NystOP 15 GM POWDER) apply abdominal fold/perineum BID TP 05/09/25 21:00 06/08/25 20:59 05/13/25 08:51 1 APPL Ondansetron HCl (zoFRAN 4MG INJ) 4 mg Q6H PRN IV NAUSEA/VOMITING 04/22/25 20:00 05/22/25 19:59 04/22/25 20:10 4 MG Pantoprazole Sodium (PROTonix 40MG INJ) 40 mg DAILY IVP 04/24/25 10:00 05/11/25 08:11 DC 05/10/25 09:09 40 MG Pantoprazole Sodium (PROTonix 40MG TAB) 40 mg DAILY PO 05/11/25 09:00 06/10/25 08:59 05/13/25 08:48 40 MG Pharmacy Profile Note (Pharmacy Communication) 1 each ONCE MISC 05/01/25 08:00 04/30/25 16:52 DC Pharmacy Profile Note (Pharmacy Communication) 1 each ONCE MISC 05/03/25 12:00 05/03/25 12:58 DC Pharmacy Profile Note (Pharmacy Communication) 1 each ONCE MISC 05/09/25 13:00 05/09/25 13:42 DC Potassium Chloride 100 ml @ 100 mls/hr AD PRN IV POTASSIUM PROTOCOL 04/22/25 20:00 05/22/25 19:59 Potassium Chloride (K-Dur/Klor-Con 20meq) 20 meq AD PRN PO POTASSIUM PROTOCOL 04/22/25 20:00 05/22/25 19:59 05/03/25 13:10 20 MEQ Potassium Chloride (KCl 10% Elixir 20meq/15ml) 20 meq AD PRN PO POTASSIUM PROTOCOL 04/22/25 20:00 05/22/25 19:59 Pramipexole Dihydrochloride (miraPEX 0.25MG TAB) 0.5 mg HS PO 04/24/25 21:00 05/24/25 20:59 05/12/25 20:57 0.5 MG Pregabalin (LYRica 25MG) 25 mg BID PO 05/01/25 21:00 05/05/25 07:22 DC 05/04/25 09:22 25 MG Pregabalin (OCExtp04WV) 75 mg BID PO 04/24/25 21:00 04/24/25 14:49 DC Sodium Chloride 500 ml @ 0 mls/hr Q0M IV 04/25/25 11:00 05/25/25 10:59 Sodium Zirconium Cyclosilicate (Lokelma 10gm Powder) 10 gm TID PO 04/23/25 21:00 04/23/25 14:11 DC Tramadol HCl (UltRAM) 50 mg Q6H PRN PO MODERATE PAIN (4-6) 05/11/25 22:00 05/16/25 21:59 05/12/25 22:31 50 MG Tramadol HCl (UltRAM) 50 mg Q6H PRN PO MODERATE PAIN (4-6) 04/24/25 22:30 04/29/25 22:29 DC 04/28/25 13:55 50 MG Trimethoprim/ Sulfamethoxazole (BactRIM DS) 1 tab BID PO 04/25/25 21:00 04/26/25 14:50 DC 04/25/25 21:51 1 TAB Vancomycin HCl 250 ml @ 125 mls/hr Q12H IV 04/24/25 23:00 04/25/25 12:36 DC 04/25/25 11:43 125 MLS/HR Vancomycin HCl 250 ml @ 125 mls/hr Q12H IV 04/26/25 15:30 04/28/25 03:13 DC 04/27/25 15:22 125 MLS/HR Vancomycin HCl 250 ml @ 125 mls/hr Q12H IV 04/28/25 15:30 04/28/25 18:53 DC Vancomycin HCl 250 ml @ 125 mls/hr Q12H IV 04/28/25 20:00 05/02/25 20:34 DC 05/02/25 10:21 125 MLS/HR Vancomycin HCl 250 ml @ 125 mls/hr Q12H9 IV 05/04/25 21:00 05/08/25 20:49 DC 05/08/25 08:48 125 MLS/HR Vancomycin HCl (Vancomycin 750mg) 750 mg Q12H IVPB 05/08/25 21:00 05/09/25 13:30 DC 05/09/25 09:45 750 MG Vancomycin HCl (Vancomycin Protocol) 1 each AD IV 04/24/25 10:30 04/25/25 12:36 DC Vancomycin HCl (Vancomycin Protocol) 1 each AD IV 04/26/25 15:00 05/09/25 13:30 DC Venlafaxine HCl (EffEXOR XR 37.5mg CAP) 37.5 mg DAILY PO 04/24/25 16:00 05/05/25 11:18 DC 05/04/25 09:21 37.5 MG Venlafaxine HCl (EffEXOR XR 37.5mg CAP) 37.5 mg DAILY PO 04/25/25 09:00 04/24/25 14:50 DC Venlafaxine HCl (EffEXOR XR 37.5mg CAP) 37.5 mg HS PO 05/05/25 21:00 06/04/25 20:59 05/12/25 20:57 37.5 MG DIAGNOSTICS / RADIOLOGY: [address] [address] IMAGING REPORT Signed PATIENT: LUCÍA CATALAN MR#: [id number] : 1970 SEX: F AGE: 54 LOCATION: 3CH ORDER 1346 STATUS: ADM IN REPORT#: [id number] SERVICE 1340 REASON: Osteomyelitis, possible abscess ORDERING PHYSICIAN: YOLANDA CHOW MD PROCEDURE: L SPN WWO - MR SPINAL CANAL, LUMB W/WO CON EXAM: MR Lumbar Spine Without Intravenous Contrast. CLINICAL HISTORY: Osteomyelitis, possible abscess. TECHNIQUE: Magnetic resonance images of the lumbar spine in multiple planes. CONTRAST: None. COMPARISON: Noncontrast MRI dated 04/28/25. FINDINGS: For this examination, spinal levels were labeled assuming five non-rib bearing, lumbar-type vertebrae with the inferior labeled L5. No acute fracture. Moderate levoscoliosis. Normal lordotic curvature. Multilevel spondylosis is evident by marginal osteophytes and facet joint arthropathy. Multilevel disc desiccation and degenerative disc height reduction noted, more pronounced at the L4-L5 level. Normal vertebral body heights. Intradiscal collection with extension into the epidural space and to the prevertebral space at the L2-L3 level, concerning for spondylodiscitis. Modic type II changes in the contiguous endplates at the L4-L5 level. Conus medullaris terminates at the T12-L1 level. No abnormal epidural masses. Moderate subcutaneous edema in the lower back. Individual spinal levels are described as follows: T12-L1: 6mm disc osteophyte complex bulge causing mild indentation on the anterior thecal sac. No neural foraminal or lateral recess stenosis. L1-L2: No disc bulge or herniation. No neural foraminal, lateral recess or spinal canal stenosis. L2-L3: 6 mm disc osteophyte complex bulge and facet joint arthropathy causing mild canal narrowing and mild bilateral foraminal narrowing with indentation on the exiting bilateral L2 nerve roots. No lateral recess stenosis. L3-L4: 6 mm disc osteophyte complex bulge, ligamentum flavum thickening, and facet joint arthropathy causing mild canal narrowing and moderate to severe bilateral foraminal narrowing with indentation on the exiting bilateral L3 nerve roots. No lateral recess stenosis. L4-L5: 8 mm disc osteophyte complex bulge, ligamentum flavum thickening, and facet joint arthropathy causing mild canal narrowing and severe bilateral foraminal narrowing with indentation on the exiting bilateral L4 nerve roots. No lateral recess stenosis. L5-S1: 6 mm disc osteophyte complex bulge and facet joint arthropathy causing mild canal narrowing and mild to moderate bilateral foraminal narrowing with indentation on the exiting bilateral L5 nerve roots. No lateral recess stenosis. IMPRESSION: Suboptimal evaluation possible due to poor [id number] ratio. Intradiscal collection with extension into the epidural space and to the prevertebral space at the L2-L3 level, concerning for spondylodiscitis. Moderate levoscoliosis. Moderate multilevel spondylosis and degenerative disc changes. Modic type II changes in the contiguous endplates at the L4-L5 level. Mild canal narrowing and mild bilateral foraminal narrowing with indentation on the exiting bilateral L2 nerve roots at the L2-L3 level. Mild canal narrowing and moderate to severe bilateral foraminal narrowing with indentation on the exiting bilateral L3 nerve roots at the L3-L4 level. Mild canal narrowing and severe bilateral foraminal narrowing with indentation on the exiting bilateral L4 nerve roots at the L4-L5 level. Mild canal narrowing and mild to moderate bilateral foraminal narrowing with indentation on the exiting bilateral L5 nerve roots at the L5-S1 level. No significant interval changes. 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 Suspected Endocarditis, RAMAN deferred due to bleeding risks; unable to rule out endocarditis Status post nephrostomy tube Renate intertrigo Infectious spondylodiscitis L2-L3 Sepsis, unable to determine POA Acute hypoxic hypercapnic respiratory failure, not POA, resolved AMS due to suspected steroid induced psychosis or hepatic encephalopathy, not POA, resolved Hyperammonemia due to cirrhosis, resolved Intractable low back pain due to spinal stenosis POA Acute urinary tract infection due to MRSA POA Hypervolemic hyponatremia POA Chronic anemia POA Hyponatremia POA Acute kidney injury on renal insufficiency POA Hyperglycemia due to uncontrolled diabetes POA Hypocalcemia POA Cirrhotic liver with splenomegaly consistent with portal hypertension per CT POA Esophageal varices Renal parenchymal disease per CT POA Hypothyroidism POA Hyperlipidemia POA Hypertension POA Anxiety disorder POA Depression POA Restless leg syndrome POA Suspected obstructive sleep apnea untreated POA Morbid obesity POA PLAN: Persistent MRSA bacteremia, gram positive cocci positive as of 05/13/25 * Currently receiving daptomycin (Day 5) and ceftaroline (Day 5) per Infectious Disease (ID) recommendations. * WBC tagged scan, awaiting the final reports * Maintain contact precautions for infection control * PICC line has been removed * Monitor for creatine kinase level * Repeat blood cultures per Infectious Disease protocol to monitor clearance of bacteremia. Osteomyelitis of L2-L3 POA * MRI showed: Intradiscal collection with extension into the epidural space and to the prevertebral space at the L2-L3 level, concerning for spondylodiscitis. (05/13/25) * Dr Sanchez has been consulted for further evaluation and management * MRI showed: Supraspinatus tendinosis with high-grade partial-thickness bursal sided tear at the myotendinous junction. Infraspinatus tendinosis with low- grade partial-thickness bursal sided tear at the footplate.Subscapularis tendinosis without high-grade tear.Mild acromioclavicular and glenohumeral osteoarthritis.Mild subacromial/subdeltoid bursitis.Findings which can be seen in the setting of adhesive capsulitis. (04/28/25) Acute kidney injury * Creatinine trending up from 1.2<1.5<1.8<1.9<2.6 * FENa <0.1 % * Planned to give IV albumin * Consulted nephrology * We will avoid nephrotoxic drugs including NSAID. Thrombocytopenia due to ITP * DIC panel workup showed D dimer 7068, Fibrinogen 102, APTT 43.3, PT 16.9 and INR 1.68. (05/11/25) * Vitamin K 10 mg has been given * As per Dr Lorenzo, trying to get her Promacta when available (medicine that raises the platelets) * V/Q scan unable to perform as she couldn't lie flat. * Platelets has been transfused * Continue to follow Hematology recommendations for ongoing management of thrombocytopenia. * Monitor platelet counts daily. * Monitor for bleeding or thrombotic complications. Altered Mental Status due to Hepatic Encephalopathy or steroids induced psychosis, resolved * Monitor ammonia levels, mental status, and signs of worsening encephalopathy. * Monitor neuro status and reassess mental status regularly with steroid adjustments. Intractable lower back pain, resolvinPer Dr. Sanchez, possible diagnosis of discitis and osteomyelitis at L2-L3 along with psoas inflammation. * Continue multimodal pain management: acetaminophen, topical agents * Pregabalin will be discontinued due to concern for possible medication-induced slurred speech. CT head showed no evidence of acute intracranial abnormalities. * Neuro checks q4 Acute UTI, resolved * Monitor for signs of urosepsis * Encourage hydration and bladder care Hyponatremia, resolved * Monitor serum Na closely; consider fluid restriction if dilutional. Renate intertrigo, resolved * Patient is improved significantly * The patient was given fluconazole 150 mg 1 dose today, gradually resolving Cirrhosis with portal hypertension * IV albumin given, possible hepatorenal syndrome * LFT trending up with total bilirubin 2, AST 198, ALT 168 and ALT 498. * Ultrasound revealed increased echogenicity of the right kidney which may reflect renal parenchymal disease. * Fecal occult blood test positive * Liver functions improving * Monitor for decompensation: encephalopathy, ascites, variceal bleeding. * Consider beta sergio for variceal prophylaxis. * Monitor LFTs, INR, and ammonia * Her MELD- Na score is 24 points, 14-15% estimated 90 day mortality Hyperglycemia (Uncontrolled Diabetes) * Lantus is 40 units daily as per endocrinology recommendations, and continue for regular insulin 10 units TIDAC before meals. * Blood glucose level is trending down to 106 * Monitor blood glucose QID * Educate on diet and insulin compliance; monitor for DKA if concern. * Correct electrolytes accordingly. Chronic anemia * H/o esophageal varices due to cirrhosis with portal hypertension * Per GI, hold off on EGD given no overt GI bleeding and stable hemoglobin * Monitor trends, H&H daily * Avoid transfusion unless symptomatic or Hgb <7. We will order morning labs. Further orders per hospitalization course. ATTESTATION BY PHYSICIAN I have seen and examined the patient. I reviewed the documentation, medical decision making, and treatment plan as noted by the resident provider above. I a gree with the findings and plan of care. Cory Pimentel MD [facility],YOLANDA PERSAUD May 13, 2025 13:29
--- NOTE | 2025-05-13 14:00 | NUR ---
HAD NOTIFIED DR HOUSER WELL ON CK 590 PER PHARMACY ON REVIEWING MEDICATIONS . PER CPK FOR AM
--- NOTE | 2025-05-13 15:57 | NUR ---
Nutritional f/u Note: Chart, meds, and labs Reviewed. Pt with 0-100% of meals taken mostly adequate with a recent decline in PO intake and appetite x 1-2 days. Pt wt stable Abnormal nutrition related labs: na 132, bun 50, crea 2.6, Nutrition-related Meds: protonix, synthdroid, ultram, lipitor Wt Status: 127kg Recommend: -Consider appetite stimulant if intake remains <75%for 3 days. -Nephrovite MVI combination of B vitamins may be used to treat or prevent vitamin deficiency due to poor diet. -Magic Cup 4oz w/ PM tray: Provides 9gm pro/ 290kcal and 20 vitamins and minerals. Franklin to serve with meals as a means of adding calories and protein for unintended weight loss. -ProStat BID (30 ml) JELLO -RD to provide further recommendations based on clinical progress. -Monitor feeding tolerance, %, wt, and labs -If No BM >3days consider bowel stimulant. - Please notify RD if additional nutrition concerns arise. Addendum: 05/13/25 at [address] Amended: Links added.
[2025-05-13 16:00] VITALS: BP 127/47; PULSE 75; RESP 20; TEMP 97.7
[2025-05-13] MEDS ORDERED: ALBUMIN HUMAN 25% 100 ML IV SCH (16:00)
--- NOTE | 2025-05-13 16:48 | PN ---
GASTROENTEROLOGY PROGRESS NOTE Date of Visit: May 13, 2025 Time of Visit: 16:47 Events / Notes: [ ] Review of Systems: CONSTITUTIONAL: No malaise or change in sensation of wellbeing. ENMT: No rhinorrhea, otorrhea, sinus pain, ear ache. CARDIOVASCULAR: No angina, palpitations, orthopnea or paroxysmal dyspnea. RESPIRATORY: No SOB. GASTROINTESTINAL: No abdominal pain, nausea, vomiting, diarrhea, hematemesis, melena or change in the patient's habitual bowel movements consistency/number. GENITOURINARY: No dysuria, hematuria or change in bladder continence. MUSCULOSKELETAL: No new muscle pain or decrease in muscular strength. No new joint swelling, redness or tenderness. SKIN: No new rash. Physical Exam: GEN: Awake, alert, oriented in person, time and place, and in no acute distress. HEENT: No sinus tenderness. Tympanic membranes were not examined. No rhinorrhea. Oral pharyngeal mucosa is pink, moist and within normal limits. Neck is supple with no cervical lymphadenopathy, thyromegaly or JVD. CHEST: Inspection, palpation and percussion of the chest were unremarkable. Lung auscultation revealed normal breath sounds bilaterally. CARDIAC: PMI is within normal limits. Heart sounds are regular. Normal S1, S2. No gallop or murmur. ABD: Soft, non-tender and not distended. No peritoneal signs on palpation. No organomegaly. Normal bowel sounds. EXT: No cyanosis or clubbing. No edema. SKIN: Intact. No rashes. JOINTS: No evidence of synovitis or acute arthritis. NEURO: Alert and oriented to name, place and person. Cranial nerve examination is unremarkable. No focal motor deficits. Normal speech. Gait is normal. Strength is normal. Vital Signs (last 8hr) Date Time Temp Pulse Resp B/P (MAP) Pulse Ox O2 Delivery O2 Flow Rate FiO2 05/13/25 12:00 97.9 76 15 118/55 91 Room Air Laboratory: [ ] Laboratory: Test 05/13/25 15:40 05/13/25 04:18 05/12/25 12:35 05/12/25 04:44 Range/Units Whole Blood Glucose 102 70-110 MG/DL White Blood Count 8.5 4.8-10.8 K/uL Red Blood Count 3.00 L 4.00-5.50 MIL/uL Hemoglobin 8.1 L 12.0-16.0 g/dL Hematocrit 25.2 L 36-48 % Mean Corpuscular Volume 84.0 79-99 fL Mean Corpuscular Hemoglobin 27.0 27.0-33.0 pg Mean Corpuscular Hemoglobin Concent 32.1 32.0-36.0 g/dL Red Cell Distribution Width 26.5 H 11.0-15.5 % Platelet Count 26 L 130-400 K/uL Mean Platelet Volume 7.5-10.5 fL Nucleated Red Blood Cells 0.0 0.0-0.19 % Prothrombin Time 16.9 H 9.6-11.6 SEC Prothromb Time International Ratio 1.68 H 0.85-1.15 Activated Partial Thromboplast Time 45.8 H 26.3-35.5 SEC Sodium Level 132 L 136-145 mmol/L Potassium Level 4.9 3.5-5.1 mmol/L Chloride Level 103 101-111 mmol/L Carbon Dioxide Level 26 21-32 mmol/L Blood Urea Nitrogen 50 H 7-18 mg/dL Creatinine 2.6 H 0.5-1.0 mg/dL Glomerular Filtration Rate Calc 21 >90 mL/min Random Glucose 124 H 70-105 mg/dL Total Calcium 8.1 L 8.5-10.1 mg/dL Total Bilirubin 2.0 H 0.2-1.0 mg/dL Aspartate Amino Transf (AST/SGOT) 198 H 10-37 U/L Alanine Aminotransferase (ALT/SGPT) 168 H 12-78 U/L Alkaline Phosphatase 498 H 50-136 U/L Total Creatine Kinase 590 #*H 21-232 U/L Total Protein 7.2 6.0-8.3 g/dL Albumin 1.3 L 3.5-5.0 g/dL Urine Osmolality 380 50-1200 mOsm/kg Urine Random Creatinine 85.06 30-135 mg/dL Urine Random Sodium 19 L 40-220 mmol/l Urine Random Potassium 34 25-125 mmol/L Urine Random Chloride 32 L 110-250 mmol/L Immature Granulocyte % (Auto) 1.3 H 0-1 % Neutrophils (%) (Auto) 82.0 H 40.0-77.0 % Lymphocytes (%) (Auto) 6.4 L 21.0-51.0 % Monocytes (%) (Auto) 8.4 3.0-13.0 % Eosinophils (%) (Auto) 1.8 0.0-8.0 % Basophils (%) (Auto) 0.1 0.0-5.0 % Neutrophils # (Auto) 6.9 1.8-7.7 K/uL Lymphocytes # (Auto) 0.5 L 1.0-4.8 K/uL Monocytes # (Auto) 0.7 0.1-1.0 K/uL Eosinophils # (Auto) 0.15 0.00-0.70 K/uL Basophils # (Auto) 0.01 0.00-0.20 K/uL Absolute Immature Granulocyte (auto 0.11 0-1 K/uL Fibrinogen 117 L 180-350 mg/dL Phosphorus Level 4.3 2.5-4.9 mg/dL Magnesium Level 1.90 1.80-2.40 mg/dL Test 05/11/25 18:55 Range/Units D-Dimer Quantitative (PE/DVT) 7068 *H 0-500 ng/mL Current Medications Medications (Trade) Dose Ordered Sig/Roberth Route PRN Reason Start Time Stop Time Status Last Admin Dose Admin Acetaminophen (TYLenol 325MG TAB) 650 mg Q4H PRN PO MILD PAIN (1-3) 04/22/25 20:00 05/22/25 19:59 05/11/25 21:31 650 MG Acetaminophen (TYLenol 325MG TAB) 650 mg Q6H PRN PO TEMPERATURE GREATER THAN 101.5 04/22/25 20:00 05/22/25 19:59 04/23/25 10:02 650 MG Acetaminophen/ Hydrocodone Bitart (NORco 5/325MG) 1 tab Q4H PRN PO MODERATE PAIN (4-6) 04/30/25 12:00 05/05/25 11:59 DC 04/30/25 22:07 1 TAB Albumin Human 100 ml @ 0 mls/hr AD IV 05/13/25 16:00 05/14/25 15:59 Atorvastatin Calcium (LIPItor 20MG) 20 mg HS PO 04/24/25 21:00 05/13/25 15:42 DC 05/12/25 20:57 20 MG Ceftaroline Fosamil 400 mg/ Sodium Chloride 250 ml @ 250 mls/hr Q12H IV 05/09/25 17:00 05/19/25 16:59 05/13/25 06:03 250 MLS/HR Ceftriaxone Sodium 1 gm/ Sodium Chloride 50 ml @ 100 mls/hr BID IV 04/22/25 21:00 04/22/25 19:59 DC Ceftriaxone Sodium (ROCEphine 1G INJ) 1 gm BID IVPB 04/22/25 21:00 04/22/25 20:44 DC Ceftriaxone Sodium (ROCEphine 1G INJ) 1 gm BID IVPB 04/23/25 09:00 04/25/25 12:36 DC 04/25/25 09:44 1 GM Daptomycin 1000 mg/Sodium Chloride 100 ml @ 200 mls/hr Q24H IV 05/09/25 15:00 05/12/25 17:41 DC 05/11/25 16:20 200 MLS/HR Daptomycin 1000 mg/Sodium Chloride 100 ml @ 200 mls/hr Q24H IV 05/12/25 18:00 05/22/25 17:59 05/12/25 18:40 200 MLS/HR Dexamethasone Sodium Phosphate (dexaMETHasone 4MG/ML 1ML VIAL) 20 mg ONCALL IV 05/01/25 15:30 05/03/25 15:31 DC 05/02/25 15:41 20 MG Dexamethasone Sodium Phosphate (dexaMETHasone 4MG/ML 1ML VIAL) 20 mg ONCALL IV 05/03/25 17:15 05/03/25 17:16 DC 05/03/25 17:23 20 MG Dexamethasone Sodium Phosphate (dexaMETHasone 4MG/ML 1ML VIAL) 20 mg ONCE PRN IV PRE-MED 05/01/25 15:00 05/01/25 15:05 DC Dexmedetomidine/ Sodium Chloride (PRECEdex 200MCG/ 50ML-NS) 200 mcg PROTOCOL IV 04/26/25 12:00 04/26/25 14:54 DC Dexmedetomidine/ Sodium Chloride (PRECEdex 400MCG/ 100ML-NS) 400 mcg PROTOCOL PRN IV ANXIETY/AGITATION 04/26/25 19:30 05/01/25 12:45 DC 04/27/25 23:31 400 MCG Dexmedetomidine/ Sodium Chloride (PRECEdex 400MCG/ 100ML-NS) 400 mcg PROTOCOL STAT IV 04/26/25 14:53 04/26/25 14:58 DC 04/26/25 15:18 400 MCG Dextrose 1,000 ml @ 75 mls/hr [id number] IV 04/26/25 12:00 04/30/25 09:36 DC 04/29/25 04:27 150 MLS/HR Dextrose (D50w) 50 ml AD PRN IV HYPOGLYCEMIA PROTOCOL 04/22/25 20:00 05/22/25 19:59 Diphenhydramine HCl (BENAdryl INJ) 25 mg ONCALL IVP 05/01/25 15:30 05/03/25 15:31 DC 05/02/25 15:41 25 MG Diphenhydramine HCl (BENAdryl INJ) 25 mg ONCALL IVP 05/03/25 17:15 05/03/25 17:16 DC 05/03/25 17:22 25 MG Diphenhydramine HCl (BENAdryl INJ) 25 mg ONCE PRN IVP PRE-MED 05/01/25 15:00 05/01/25 15:06 DC Famotidine (Pepcid 20mg Tab) 20 mg DAILY PO 04/23/25 09:00 04/24/25 09:48 DC 04/23/25 09:33 20 MG Gabapentin (NEURontin 300 MG CAP) 300 mg BID PO 04/24/25 21:00 04/28/25 09:10 DC 04/25/25 21:51 300 MG Gentamicin Sulfate/Sodium Chloride 100 ml @ 200 mls/hr Q12H IV 05/09/25 02:00 05/09/25 13:30 DC 05/09/25 01:36 200 MLS/HR Gentamicin Sulfate/Sodium Chloride 100 ml @ 200 mls/hr Q24H IV 05/03/25 14:00 05/08/25 21:01 DC 05/08/25 14:18 200 MLS/HR Glucagon (Glucagon 1mg Kit) 1 mg AD PRN IM HYPOGLYCEMIA PROTOCOL 04/22/25 20:00 05/22/25 19:59 Heparin Sodium (Porcine) (HEParin 5,000 UNIT VIAL) 5,000 unit Q8H SQ 04/25/25 09:00 04/25/25 08:40 DC Hydromorphone HCl (DiLAUDid 0.5MG INJ) 0.5 mg BIDPRN PRN IVP SEVERE PAIN (7-10) 04/25/25 19:00 04/30/25 11:59 DC 04/29/25 23:31 0.5 MG Hydromorphone HCl (DiLAUDid 0.5MG INJ) 0.5 mg Q6H PRN IVP SEVERE PAIN (7-10) 04/23/25 14:00 04/25/25 08:25 DC 04/25/25 04:14 0.5 MG Hydromorphone HCl (DiLAUDid 1MG INJ) 1 mg TID PRN IVP SEVERE PAIN (7-10) 05/01/25 19:00 05/05/25 12:59 DC Hydromorphone HCl (DiLAUDid 1MG INJ) 1 mg TIDP PRN IVP SEVERE PAIN (7-10) 04/30/25 13:00 05/01/25 18:46 DC 04/30/25 20:44 1 MG Immune Globulin 400 ml @ 0 mls/hr Q24H IV 05/01/25 14:00 05/02/25 12:38 DC 05/01/25 16:18 37.5 MLS/HR Immune Globulin 400 ml @ 0 mls/hr Q24H IV 05/02/25 16:00 05/03/25 16:01 DC 05/02/25 16:46 37.5 MLS/HR Immune Globulin 400 ml @ 0 mls/hr Q24H IV 05/03/25 17:15 05/03/25 17:16 DC 05/03/25 17:57 37.5 MLS/HR Insulin Glargine (LANtus 100 UNITS/ML 10 ML VIAL) 10 units HS SQ 04/24/25 21:00 04/24/25 16:57 DC Insulin Glargine (LANtus 100 UNITS/ML 10 ML VIAL) 10 units ONCE STAT SQ 04/24/25 10:54 04/24/25 11:00 DC 04/24/25 11:19 10 UNITS Insulin Glargine (LANtus 100 UNITS/ML 10 ML VIAL) 15 units HS SQ 04/24/25 21:00 04/24/25 17:06 DC Insulin Glargine (LANtus 100 UNITS/ML 10 ML VIAL) 30 units DAILY SQ 05/05/25 09:00 05/07/25 23:47 DC 05/07/25 08:12 30 UNITS Insulin Glargine (LANtus 100 UNITS/ML 10 ML VIAL) 30 units DAILY SQ 05/13/25 09:00 06/12/25 08:59 Insulin Glargine (LANtus 100 UNITS/ML 10 ML VIAL) 30 units ONCE SQ 04/24/25 17:00 04/25/25 06:19 DC 04/24/25 18:16 30 UNITS Insulin Glargine (LANtus 100 UNITS/ML 10 ML VIAL) 40 units DAILY SQ 05/08/25 09:00 05/13/25 06:31 DC 05/12/25 09:15 40 UNITS Insulin Glargine (LANtus 100 UNITS/ML 10 ML VIAL) 40 units DAILY SQ 04/29/25 09:00 04/30/25 07:31 DC Insulin Glargine (LANtus 100 UNITS/ML 10 ML VIAL) 50 units DAILY SQ 04/26/25 09:00 04/29/25 06:49 DC 04/28/25 08:46 50 UNITS Insulin Glargine (LANtus 100 UNITS/ML 10 ML VIAL) 50 units DAILY SQ 04/30/25 09:00 05/05/25 07:21 DC 05/04/25 09:30 50 UNITS Insulin Human Regular (humuLIN R 100 UNIT/ML 3ML) 5 unit TIDAC SQ 04/24/25 17:00 04/24/25 17:06 DC Insulin Human Regular (humuLIN R 100 UNIT/ML 3ML) 8 unit TIDAC SQ 04/28/25 07:30 04/30/25 07:31 DC 04/30/25 06:15 8 UNIT Insulin Human Regular (humuLIN R 100 UNIT/ML 3ML) 10 unit TIDAC SQ 05/06/25 07:30 05/07/25 23:47 DC 05/07/25 16:06 10 UNIT Insulin Human Regular (humuLIN R 100 UNIT/ML 3ML) 10 unit TIDAC SQ 05/10/25 11:30 06/09/25 11:29 05/11/25 12:10 10 UNIT Insulin Human Regular (humuLIN R 100 UNIT/ML 3ML) 10 unit TIDAC SQ 04/24/25 17:00 04/25/25 06:17 DC 04/25/25 06:15 10 UNIT Insulin Human Regular (humuLIN R 100 UNIT/ML 3ML) 12 unit TIDAC SQ 05/05/25 07:30 05/05/25 22:51 DC Insulin Human Regular (humuLIN R 100 UNIT/ML 3ML) 12 unit TIDAC SQ 04/30/25 07:30 05/02/25 08:05 DC 05/02/25 06:45 12 UNIT Insulin Human Regular (humuLIN R 100 UNIT/ML 3ML) 15 unit TIDAC SQ 05/02/25 11:30 05/05/25 07:21 DC 05/04/25 17:33 15 UNIT Insulin Human Regular (humuLIN R 100 UNIT/ML 3ML) 15 unit TIDAC SQ 05/08/25 07:30 05/09/25 06:24 DC 05/08/25 17:16 15 UNIT Insulin Human Regular (humuLIN R 100 UNIT/ML 3ML) 15 unit TIDAC SQ 04/26/25 11:30 04/27/25 20:30 DC Insulin Human Regular (humuLIN R 100 UNIT/ML 3ML) 18 unit TIDAC SQ 05/09/25 07:30 05/10/25 09:56 DC 05/09/25 06:49 18 UNIT Insulin Human Regular (humuLIN R 100 UNIT/ML 3ML) 25 unit TIDAC SQ 04/25/25 07:30 04/26/25 07:58 DC 04/25/25 17:39 25 UNIT Insulin Human Regular (humuLIN R 100 UNIT/ML 3ML) INSULIN SLIDING SCAL... ACHS SQ 04/22/25 21:00 04/24/25 16:16 DC 04/24/25 11:18 8 UNIT Insulin Human Regular (humuLIN R 100 UNIT/ML 3ML) INSULIN SLIDING SCAL... ACHS SQ 05/05/25 07:30 06/04/25 07:29 05/12/25 20:58 4 UNIT Insulin Human Regular (humuLIN R 100 UNIT/ML 3ML) INSULIN SLIDING SCAL... ACHS SQ 04/24/25 16:30 04/25/25 14:09 DC 04/25/25 11:57 16 UNIT Insulin Human Regular (humuLIN R 100 UNIT/ML 3ML) INSULIN SLIDING SCAL... ACHS SQ 04/25/25 16:30 05/04/25 23:42 DC 05/04/25 20:49 6 UNIT Insulin Human Regular (humuLIN R 100 UNIT/ML 3ML) INSULIN SLIDING SCAL... Q4H SQ 04/27/25 20:30 04/28/25 09:11 DC 04/28/25 06:00 4 UNIT Lactated Ringer's 1,000 ml @ 100 mls/hr Q10H IV 04/22/25 20:00 04/23/25 10:09 DC 04/23/25 06:00 100 MLS/HR Lactulose (Constulose 20gm/ 30ml Udcup) 30 gm TID PO 04/25/25 11:00 04/30/25 09:45 DC 04/30/25 09:16 30 GM Levothyroxine Sodium (SYNTHroid 125MCG TAB) 125 mcg DAILY@0630 PO 04/25/25 06:30 05/25/25 06:29 05/13/25 06:46 125 MCG Lidocaine (Lidoderm Patch 5%) 1 patch Q24H TP 05/12/25 05:00 06/11/25 04:59 Lisinopril (Prinivil 10mg) 10 mg DAILY PO 05/02/25 09:00 05/13/25 08:46 DC 05/12/25 09:13 10 MG Magnesium Sulfate 50 ml @ 0 mls/hr PROTOCOL PRN IV OTHER [SEE ORDER COMMENTS] 04/22/25 20:00 05/22/25 19:59 Methylprednisolone Sodium Succinate (Solu-medROL 125MG) 125 mg Q6H IVP 04/23/25 08:00 04/28/25 09:10 DC 04/25/25 09:45 125 MG Metoprolol Succinate (TopROL XL) 50 mg AM PO 04/25/25 09:00 05/25/25 08:59 05/13/25 08:48 50 MG Nystatin (NystOP 15 GM POWDER) apply abdominal fold/perineum BID TP 05/09/25 21:00 06/08/25 20:59 05/13/25 08:51 1 APPL Ondansetron HCl (zoFRAN 4MG INJ) 4 mg Q6H PRN IV NAUSEA/VOMITING 04/22/25 20:00 05/22/25 19:59 04/22/25 20:10 4 MG Pantoprazole Sodium (PROTonix 40MG INJ) 40 mg DAILY IVP 04/24/25 10:00 05/11/25 08:11 DC 05/10/25 09:09 40 MG Pantoprazole Sodium (PROTonix 40MG TAB) 40 mg DAILY PO 05/11/25 09:00 06/10/25 08:59 05/13/25 08:48 40 MG Pharmacy Profile Note (Pharmacy Communication) 1 each ONCE MISC 05/01/25 08:00 04/30/25 16:52 DC Pharmacy Profile Note (Pharmacy Communication) 1 each ONCE MISC 05/03/25 12:00 05/03/25 12:58 DC Pharmacy Profile Note (Pharmacy Communication) 1 each ONCE MISC 05/09/25 13:00 05/09/25 13:42 DC Potassium Chloride 100 ml @ 100 mls/hr AD PRN IV POTASSIUM PROTOCOL 04/22/25 20:00 05/22/25 19:59 Potassium Chloride (K-Dur/Klor-Con 20meq) 20 meq AD PRN PO POTASSIUM PROTOCOL 04/22/25 20:00 05/22/25 19:59 05/03/25 13:10 20 MEQ Potassium Chloride (KCl 10% Elixir 20meq/15ml) 20 meq AD PRN PO POTASSIUM PROTOCOL 04/22/25 20:00 05/22/25 19:59 Pramipexole Dihydrochloride (miraPEX 0.25MG TAB) 0.5 mg HS PO 04/24/25 21:00 05/24/25 20:59 05/12/25 20:57 0.5 MG Pregabalin (LYRica 25MG) 25 mg BID PO 05/01/25 21:00 05/05/25 07:22 DC 05/04/25 09:22 25 MG Pregabalin (LYAtnh35DM) 75 mg BID PO 04/24/25 21:00 04/24/25 14:49 DC Sodium Chloride 500 ml @ 0 mls/hr Q0M IV 04/25/25 11:00 05/25/25 10:59 Sodium Zirconium Cyclosilicate (Lokelma 10gm Powder) 10 gm TID PO 04/23/25 21:00 04/23/25 14:11 DC Tramadol HCl (UltRAM) 50 mg Q6H PRN PO MODERATE PAIN (4-6) 05/11/25 22:00 05/16/25 21:59 05/12/25 22:31 50 MG Tramadol HCl (UltRAM) 50 mg Q6H PRN PO MODERATE PAIN (4-6) 04/24/25 22:30 04/29/25 22:29 DC 04/28/25 13:55 50 MG Trimethoprim/ Sulfamethoxazole (BactRIM DS) 1 tab BID PO 04/25/25 21:00 04/26/25 14:50 DC 04/25/25 21:51 1 TAB Vancomycin HCl 250 ml @ 125 mls/hr Q12H IV 04/24/25 23:00 04/25/25 12:36 DC 04/25/25 11:43 125 MLS/HR Vancomycin HCl 250 ml @ 125 mls/hr Q12H IV 04/26/25 15:30 04/28/25 03:13 DC 04/27/25 15:22 125 MLS/HR Vancomycin HCl 250 ml @ 125 mls/hr Q12H IV 04/28/25 15:30 04/28/25 18:53 DC Vancomycin HCl 250 ml @ 125 mls/hr Q12H IV 04/28/25 20:00 05/02/25 20:34 DC 05/02/25 10:21 125 MLS/HR Vancomycin HCl 250 ml @ 125 mls/hr Q12H9 IV 05/04/25 21:00 05/08/25 20:49 DC 05/08/25 08:48 125 MLS/HR Vancomycin HCl (Vancomycin 750mg) 750 mg Q12H IVPB 05/08/25 21:00 05/09/25 13:30 DC 05/09/25 09:45 750 MG Vancomycin HCl (Vancomycin Protocol) 1 each AD IV 04/24/25 10:30 04/25/25 12:36 DC Vancomycin HCl (Vancomycin Protocol) 1 each AD IV 04/26/25 15:00 05/09/25 13:30 DC Venlafaxine HCl (EffEXOR XR 37.5mg CAP) 37.5 mg DAILY PO 04/24/25 16:00 05/05/25 11:18 DC 05/04/25 09:21 37.5 MG Venlafaxine HCl (EffEXOR XR 37.5mg CAP) 37.5 mg DAILY PO 04/25/25 09:00 04/24/25 14:50 DC Venlafaxine HCl (EffEXOR XR 37.5mg CAP) 37.5 mg HS PO 05/05/25 21:00 06/04/25 20:59 05/12/25 20:57 37.5 MG Diagnostics / Radiology: [COPY/PASTE HERE IF NO REPORTS PLEASE DELETE SECTION] Assessment: Decompensated cirrhosis HTN Esophageal varies Plan: Patient with known cirrhosis however lost to follow-up. Hold off on EGD given no overt GI bleeding and stable hemoglobin We will monitor closely BEHZAD KOCH [employer] May 13, 2025 16:47
--- NOTE | 2025-05-13 17:35 | PN ---
INFECTIOUS DISEASE PROGRESS NOTE Date of Service: May 13, 2025 SUBJECTIVE: Patient was seen at bedside in room 314. Patient is awake, alert and oriented. The preliminary blood cultures collected yesterday is growing Gram-positive cocci in clusters, Staphylococcus aureus. Patient is afebrile, temperature is 97.9. 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 Dr. Soares discussed this case with Dr. Sanchez and he will re-evaluate. For now we will continue on daptomycin and Teflaro and continue to follow patient's care. PHYSICAL EXAM EYES: Anicteric. Pupils equal and reactive. HENT: No oral thrush seen, moist Oral mucosa NECK: Supple, no JVD or thyromegaly. LUNGS: Good air entry. No rales, no rhonchi. CARDIOVASCULAR: S1, S2 regular. No murmur heard. ABDOMEN: Soft, non tender, bowel sounds present, no organomegaly. SKIN: No rashes, no swelling. LYMPHATICS: No peripheral lymphadenopathy MUSCULOSKELETAL: No joint swelling, erythema or tenderness. EXTREMITIES: No cyanosis or clubbing. Generalized weakness. BACK: No deformity, no pressure ulcer. Right nephrostomy tube. GENITOURINARY: No dysuria or hematuria, Nolasco catheter. Vital Sign (Last 12 Hours) 05/13/25 05/13/25 08:00 12:00 Temp 98.1 97.9 Pulse 70 76 Resp 20 15 B/P (MAP) 113/48 118/55 Pulse Ox 91 91 O2 Delivery Room Air Room Air Intake & Output (last 24hrs) 05/12/25 05/12/25 05/13/25 14:59 22:59 06:59 Intake Total 50 ml 100 ml Output Total 300 ml 250 ml 520 ml Balance -250 ml -150 ml -520 ml LABS: Laboratory: Test 05/13/25 15:40 05/13/25 04:18 05/12/25 12:35 05/12/25 04:44 Range/Units Whole Blood Glucose 102 70-110 MG/DL White Blood Count 8.5 4.8-10.8 K/uL Red Blood Count 3.00 L 4.00-5.50 MIL/uL Hemoglobin 8.1 L 12.0-16.0 g/dL Hematocrit 25.2 L 36-48 % Mean Corpuscular Volume 84.0 79-99 fL Mean Corpuscular Hemoglobin 27.0 27.0-33.0 pg Mean Corpuscular Hemoglobin Concent 32.1 32.0-36.0 g/dL Red Cell Distribution Width 26.5 H 11.0-15.5 % Platelet Count 26 L 130-400 K/uL Mean Platelet Volume 7.5-10.5 fL Nucleated Red Blood Cells 0.0 0.0-0.19 % Prothrombin Time 16.9 H 9.6-11.6 SEC Prothromb Time International Ratio 1.68 H 0.85-1.15 Activated Partial Thromboplast Time 45.8 H 26.3-35.5 SEC Sodium Level 132 L 136-145 mmol/L Potassium Level 4.9 3.5-5.1 mmol/L Chloride Level 103 101-111 mmol/L Carbon Dioxide Level 26 21-32 mmol/L Blood Urea Nitrogen 50 H 7-18 mg/dL Creatinine 2.6 H 0.5-1.0 mg/dL Glomerular Filtration Rate Calc 21 >90 mL/min Random Glucose 124 H 70-105 mg/dL Total Calcium 8.1 L 8.5-10.1 mg/dL Total Bilirubin 2.0 H 0.2-1.0 mg/dL Aspartate Amino Transf (AST/SGOT) 198 H 10-37 U/L Alanine Aminotransferase (ALT/SGPT) 168 H 12-78 U/L Alkaline Phosphatase 498 H 50-136 U/L Total Creatine Kinase 590 #*H 21-232 U/L Total Protein 7.2 6.0-8.3 g/dL Albumin 1.3 L 3.5-5.0 g/dL Urine Osmolality 380 50-1200 mOsm/kg Urine Random Creatinine 85.06 30-135 mg/dL Urine Random Sodium 19 L 40-220 mmol/l Urine Random Potassium 34 25-125 mmol/L Urine Random Chloride 32 L 110-250 mmol/L Immature Granulocyte % (Auto) 1.3 H 0-1 % Neutrophils (%) (Auto) 82.0 H 40.0-77.0 % Lymphocytes (%) (Auto) 6.4 L 21.0-51.0 % Monocytes (%) (Auto) 8.4 3.0-13.0 % Eosinophils (%) (Auto) 1.8 0.0-8.0 % Basophils (%) (Auto) 0.1 0.0-5.0 % Neutrophils # (Auto) 6.9 1.8-7.7 K/uL Lymphocytes # (Auto) 0.5 L 1.0-4.8 K/uL Monocytes # (Auto) 0.7 0.1-1.0 K/uL Eosinophils # (Auto) 0.15 0.00-0.70 K/uL Basophils # (Auto) 0.01 0.00-0.20 K/uL Absolute Immature Granulocyte (auto 0.11 0-1 K/uL Fibrinogen 117 L 180-350 mg/dL Phosphorus Level 4.3 2.5-4.9 mg/dL Magnesium Level 1.90 1.80-2.40 mg/dL Test 05/11/25 18:55 Range/Units D-Dimer Quantitative (PE/DVT) 7068 *H 0-500 ng/mL ASSESSMENT: Persistent Methicillin-resistant Staphylococcus aureus bacteremia. Urinary tract infection with methicillin-resistant Staphylococcus aureus. L2 and L3 osteomyelitis. Right Hydronephrosis, s/p right nephrostomy tube placement on 04/29/2025. Non-ketotic hyperglycemia. Urinary retention requiring Nolasco catheter placement. Morbid obesity. Thrombocytopenia requiring platelet transfusion.. Diabetes mellitus. Debility. PLAN: Continue daptomycin IV Continue Teflaro IV. Neurosurgeon has been reconsulted and will re-evaluate patient. Continue GI prophylaxis. Continue pain management. Continue antidiabetic. Case management working on placement to [facility]. Patient will need 6 weeks of IV antibiotics. Continue physical therapy. We will follow up on the repeat blood cultures. This case was reviewed and discussed with my supervising physician and the above assessment and plan was formulated and agreed upon. ATTESTATION BY PHYSICIAN I have seen and examined the patient. I reviewed the documentation, medical decision making, and treatment plan as noted by the mid-level provider above. I agree with the findings and plan of care. EDNA SOARES MD, [facility] May 13, 2025 17:35
[2025-05-13 20:00] VITALS: BP 130/58; PULSE 81; RESP 18; TEMP 98.5
[2025-05-13 22:24] LABS: APPEARANCE,URINE CLOUDY (CLEAR); GLUCOSE, URINE (UA) TRACE mg/dL (NEGATIVE); LEUKOCYTE ESTERASE ,URINE 25 Leu/uL (NEGATIVE); NITRATE,URINE NEGATIVE (NEGATIVE); OCCULT BLOOD,URINE LARGE (NEGATIVE)
[2025-05-13 22:25] LABS: ADD UA MICROSCOPIC YES
[2025-05-13 22:34] LABS: WBC CLUMP FEW /HPF (0-1); YEAST,URINE BUDDING FEW /HPF (None Seen)
[2025-05-14] VITALS (47 sets, daily range): BP systolic 79–180; BP diastolic 28–80; PULSE 54–99; RESP 14–46; TEMP 97.9–98.4; O2SAT 94–100
[2025-05-14 04:37] LABS: IMMATURE GRANULOCYTE ABSOLUTE 0.08 K/uL (0-1); NUCLEATED RED BLOOD CELLS 0.0 % (0.0-0.19); PLATELET COUNT (AUTO) 27 K/uL (130-400); RED BLOOD CELL COUNT(AUTO) 2.78 MIL/uL (4.00-5.50); RED CELL DISTRIBUTION WIDTH 27.4 % (11.0-15.5); WHITE BLOOD COUNT (AUTO) 8.5 K/uL (4.8-10.8)
[2025-05-14 05:23] LABS: ASPARTATE AMINOTRANSFERASE 212.0 U/L (10-37); CREATININE 3.2 mg/dL (0.5-1.0); GLOMERULAR FILTR. RATE CALC 16.0 mL/min (>90); GLUCOSE,RANDOM 93.0 mg/dL (70-105); PHOSPHORUS 5.9 mg/dL (2.5-4.9); SODIUM SERUM 132.0 mmol/L (136-145); TOTAL PROTEIN, SERUM 7.2 g/dL (6.0-8.3); UREA NITROGEN, BLOOD 63.0 mg/dL (7-18)
[2025-05-14 05:41] LABS: CREATINE KINASE, TOTAL 579.0 U/L (21-232)
--- NOTE | 2025-05-14 07:05 | PN ---
endocrinology progress note Date of Service: May 14, 2025 subjective: glucose are improving and off steroid now. hba1c 9.2, home regimen: lantus 30 units daily and humalog 10 units tid before meals. patient glucose are improving. s/p right nephrostomy tube, thrombocytopenia, UTI and gram positive. Bacteremia. liver cirrhosis. PAST MEDICAL HISTORY: [undiagnosed obstructive sleep apnea, diabetes type 2, hypertension, hyperlipidemia, hypothyroidism, restless leg syndrome, anxiety disorder,depression, lupus and severe morbid obesity ] PAST SURGICAL HISTORY: [ Cholecystectomy, tubal ligation] PAST SOCIAL HISTORY: [ Patient lives with . Patient denies alcohol tobacco and recreational drug use] FAMILY HISTORY: [ Hypertension, diabetes, cardiovascular disease and Alzheimer's disease ] Coded Allergies: No Known Allergies (Unverified Allergy, Unknown, 08/26/14) ASSESSMENT: glucose are improving and off steroid now. hba1c 9.2, home regimen: lantus 30 units daily and humalog 10 units tid before meals. Intractable low back pain POA L2/L3 OSTEOMYELITIS Acute thrombocytopenia POA s/p IVIG Acute urinary tract infection POA On antibiotics. Bacteremia, MRSA on antibiotics. right kidney hydronephrosis s/p right nephrostomy tube Chronic anemia POA Hyponatremia POA improved Acute kidney injury on renal insufficiency POA improving Hypocalcemia POA stable Cirrhotic liver with splenomegaly consistent with portal hypertension per CT POA Renal parenchymal disease per CT POA Hypothyroidism POA ON LEVOTHYROXINE Hyperlipidemia POA Hypertension POA Anxiety disorder POA Depression POA Restless leg syndrome POA Suspected obstructive sleep apnea untreated POA Morbid obesity POA PLAN: decrease lantus to 20 units daily hold regular insulin 10 units qac before meals continue medium dose ssi monitor glucose qx6 hourly continue levothyroxine 125 mcg daily. Vitals/Labs Vital Signs Date Time Temp Pulse Resp B/P (MAP) Pulse Ox O2 Delivery O2 Flow Rate FiO2 05/14/25 05:53 98.1 85 17 116/58 93 Room Air 05/13/25 08:00 0 21 Laboratory Tests 05/14/25 04:21 Medications Current Medications Sodium Chloride 1,000 ml @ 0 mls/hr ONCE ONCE IV Last administered on 04/22/25at 17:27; Start 04/22/25 at 17:00; Stop 04/22/25 at 17:01; Status DC Ceftriaxone Sodium 1 gm ONCE ONCE IVPB Last administered on 04/22/25at 19:43; Start 04/22/25 at 19:00; Stop 04/22/25 at 19:01; Status DC Acetaminophen 650 mg Q6H PRN PO Last administered on 04/23/25at 10:02; Start 04/22/25 at 20:00; Stop 05/22/25 at 19:59 Acetaminophen 650 mg Q4H PRN PO Last administered on 05/11/25at 21:31; Start 04/22/25 at 20:00; Stop 05/22/25 at 19:59 Ondansetron HCl 4 mg Q6H PRN IV Last administered on 04/22/25at 20:10; Start 04/22/25 at 20:00; Stop 05/22/25 at 19:59 Famotidine 20 mg DAILY PO Last administered on 04/23/25at 09:33; Start 04/23/25 at 09:00; Stop 04/24/25 at 09:48; Status DC Ceftriaxone Sodium 1 gm/ Sodium Chloride 50 ml @ 100 mls/hr BID IV; Start 04/22/25 at 21:00; Stop 04/22/25 at 19:59; Status DC Lactated Ringer's 1,000 ml @ 100 mls/hr Q10H IV Last administered on 04/23/25at 06:00; Start 04/22/25 at 20:00; Stop 04/23/25 at 10:09; Status DC Insulin Human Regular INSULIN SLIDING SCAL... ACHS SQ Last administered on 04/24/25at 11:18; Start 04/22/25 at 21:00; Stop 04/24/25 at 16:16; Status DC Dextrose 50 ml AD PRN IV; Start 04/22/25 at 20:00; Stop 05/22/25 at 19:59 Glucagon 1 mg AD PRN IM; Start 04/22/25 at 20:00; Stop 05/22/25 at 19:59 Magnesium Sulfate 50 ml @ 0 mls/hr PROTOCOL PRN IV; Start 04/22/25 at 20:00; Stop 05/22/25 at 19:59 Potassium Chloride 100 ml @ 100 mls/hr AD PRN IV; Start 04/22/25 at 20:00; Stop 05/22/25 at 19:59 Potassium Chloride 20 meq AD PRN PO; Start 04/22/25 at 20:00; Stop 05/22/25 at 19:59 Potassium Chloride 20 meq AD PRN PO Last administered on 05/03/25at 13:10; Start 04/22/25 at 20:00; Stop 05/22/25 at 19:59 Ceftriaxone Sodium 1 gm BID IVPB; Start 04/22/25 at 21:00; Stop 04/22/25 at 20:44; Status DC Morphine Sulfate 4 mg ONCE ONCE IVP Last administered on 04/22/25at 20:11; Start 04/22/25 at 20:30; Stop 04/22/25 at 20:31; Status DC Lidocaine 1 each ONCE ONCE TP Last administered on 04/22/25at 21:14; Start 04/22/25 at 21:00; Stop 04/22/25 at 21:01; Status DC Ceftriaxone Sodium 1 gm BID IVPB Last administered on 04/25/25at 09:44; Start 04/23/25 at 09:00; Stop 04/25/25 at 12:36; Status DC Methylprednisolone Sodium Succinate 125 mg Q6H IVP Last administered on 04/25/25at 09:45; Start 04/23/25 at 08:00; Stop 04/28/25 at 09:10; Status DC Albuterol Sulfate 1.25 ONCE ONCE IH Last administered on 04/23/25at 09:40; Start 04/23/25 at 09:30; Stop 04/23/25 at 09:31; Status DC Calcium Gluconate 1 gm ONCE ONCE IV Last administered on 04/23/25at 10:55; Start 04/23/25 at 10:30; Stop 04/23/25 at 10:31; Status DC Sodium Chloride 50 ml @ 0 mls/hr ONCE ONCE IV Last administered on 04/23/25at 11:00; Start 04/23/25 at 11:00; Stop 04/23/25 at 11:01; Status DC Sodium Zirconium Cyclosilicate 10 gm ONCE ONCE PO Last administered on 04/23/25at 14:14; Start 04/23/25 at 14:00; Stop 04/23/25 at 16:08; Status DC Hydromorphone HCl 0.5 mg Q6H PRN IVP Last administered on 04/25/25at 04:14; Start 04/23/25 at 14:00; Stop 04/25/25 at 08:25; Status DC Sodium Zirconium Cyclosilicate 10 gm TID PO; Start 04/23/25 at 21:00; Stop 04/23/25 at 14:11; Status DC Pantoprazole Sodium 40 mg DAILY IVP Last administered on 05/10/25at 09:09; Start 04/24/25 at 10:00; Stop 05/11/25 at 08:11; Status DC Pregabalin 75 mg BID PO; Start 04/24/25 at 21:00; Stop 04/24/25 at 14:49; Status DC Vancomycin HCl 1 each AD IV; Start 04/24/25 at 10:30; Stop 04/25/25 at 12:36; Status DC Vancomycin HCl 500 ml @ 250 mls/hr ONCE ONCE IV Last administered on 04/24/25at 12:46; Start 04/24/25 at 11:00; Stop 04/24/25 at 12:59; Status DC Vancomycin HCl 250 ml @ 125 mls/hr Q12H IV Last administered on 04/25/25at 11:43; Start 04/24/25 at 23:00; Stop 04/25/25 at 12:36; Status DC Insulin Glargine 10 units HS SQ; Start 04/24/25 at 21:00; Stop 04/24/25 at 16:57; Status DC Insulin Glargine 10 units ONCE STAT SQ Last administered on 04/24/25at 11:19; Start 04/24/25 at 10:54; Stop 04/24/25 at 11:00; Status DC Atorvastatin Calcium 20 mg HS PO Last administered on 05/12/25at 20:57; Start 04/24/25 at 21:00; Stop 05/13/25 at 15:42; Status DC Gabapentin 300 mg BID PO Last administered on 04/25/25at 21:51; Start 04/24/25 at 21:00; Stop 04/28/25 at 09:10; Status DC Levothyroxine Sodium 125 mcg DAILY@0630 PO Last administered on 05/14/25at 06:41; Start 04/25/25 at 06:30; Stop 05/25/25 at 06:29 Metoprolol Succinate 50 mg AM PO Last administered on 05/13/25at 08:48; Start 04/25/25 at 09:00; Stop 05/25/25 at 08:59 Venlafaxine HCl 37.5 mg DAILY PO; Start 04/25/25 at 09:00; Stop 04/24/25 at 14:50; Status DC Pramipexole Dihydrochloride 0.5 mg HS PO Last administered on 05/13/25at 21:47; Start 04/24/25 at 21:00; Stop 05/24/25 at 20:59 Venlafaxine HCl 37.5 mg DAILY PO Last administered on 05/04/25at 09:21; Start 04/24/25 at 16:00; Stop 05/05/25 at 11:18; Status DC Insulin Human Regular INSULIN SLIDING SCAL... ACHS SQ Last administered on 04/25/25at 11:57; Start 04/24/25 at 16:30; Stop 04/25/25 at 14:09; Status DC Insulin Glargine 15 units HS SQ; Start 04/24/25 at 21:00; Stop 04/24/25 at 17:06; Status DC Insulin Human Regular 5 unit TIDAC SQ; Start 04/24/25 at 17:00; Stop 04/24/25 at 17:06; Status DC Insulin Glargine 30 units ONCE SQ Last administered on 04/24/25at 18:16; Start 04/24/25 at 17:00; Stop 04/25/25 at 06:19; Status DC Insulin Human Regular 10 unit TIDAC SQ Last administered on 04/25/25at 06:15; Start 04/24/25 at 17:00; Stop 04/25/25 at 06:17; Status DC Tramadol HCl 50 mg Q6H PRN PO Last administered on 04/28/25at 13:55; Start 04/24/25 at 22:30; Stop 04/29/25 at 22:29; Status DC Insulin Human Regular 25 unit TIDAC SQ Last administered on 04/25/25at 17:39; Start 04/25/25 at 07:30; Stop 04/26/25 at 07:58; Status DC Insulin Glargine 70 units ONCE ONCE SQ Last administered on 04/25/25at 06:27; Start 04/25/25 at 06:30; Stop 04/25/25 at 06:31; Status DC Hydromorphone HCl 0.5 mg BIDPRN PRN IVP Last administered on 04/29/25at 23:31; Start 04/25/25 at 19:00; Stop 04/30/25 at 11:59; Status DC Heparin Sodium (Porcine) 5,000 unit Q8H SQ; Start 04/25/25 at 09:00; Stop 04/25/25 at 08:40; Status DC Lactulose 30 gm TID PO Last administered on 04/30/25at 09:16; Start 04/25/25 at 11:00; Stop 04/30/25 at 09:45; Status DC Sodium Chloride 500 ml @ 0 mls/hr Q0M IV; Start 04/25/25 at 11:00; Stop 05/25/25 at 10:59 Trimethoprim/ Sulfamethoxazole 1 tab BID PO Last administered on 04/25/25at 21:51; Start 04/25/25 at 21:00; Stop 04/26/25 at 14:50; Status DC Insulin Human Regular INSULIN SLIDING SCAL... ACHS SQ Last administered on 05/04/25at 20:49; Start 04/25/25 at 16:30; Stop 05/04/25 at 23:42; Status DC Diazepam 10 mg ONCE ONCE IM; Start 04/25/25 at 15:00; Stop 04/25/25 at 15:01; Status DC Lactulose 200 gm ONCE ONCE OK Last administered on 04/25/25at 17:30; Start 04/25/25 at 16:30; Stop 04/25/25 at 16:31; Status DC Lorazepam 0.5 mg ONCE ONCE PO Last administered on 04/25/25at 19:07; Start 04/25/25 at 19:00; Stop 04/25/25 at 19:01; Status DC Haloperidol Lactate 1 mg ONCE ONCE IM Last administered on 04/26/25at 05:17; Start 04/26/25 at 05:00; Stop 04/26/25 at 05:02; Status DC Insulin Human Regular 15 unit TIDAC SQ; Start 04/26/25 at 11:30; Stop 04/27/25 at 20:30; Status DC Insulin Glargine 50 units DAILY SQ Last administered on 04/28/25at 08:46; Start 04/26/25 at 09:00; Stop 04/29/25 at 06:49; Status DC Dextrose 1,000 ml @ 75 mls/hr [id number] IV Last administered on 04/29/25at 04:27; Start 04/26/25 at 12:00; Stop 04/30/25 at 09:36; Status DC Dexmedetomidine/ Sodium Chloride 200 mcg PROTOCOL IV; Start 04/26/25 at 12:00; Stop 04/26/25 at 14:54; Status DC Dexmedetomidine/ Sodium Chloride 400 mcg STK-MED ONCE IV; Start 04/26/25 at 14:49; Stop 04/26/25 at 14:50; Status DC Vancomycin HCl 1 each AD IV; Start 04/26/25 at 15:00; Stop 05/09/25 at 13:30; Status DC Dexmedetomidine/ Sodium Chloride 400 mcg PROTOCOL STAT IV Last administered on 04/26/25at 15:18; Start 04/26/25 at 14:53; Stop 04/26/25 at 14:58; Status DC Vancomycin HCl 250 ml @ 125 mls/hr Q12H IV Last administered on 04/27/25at 15:22; Start 04/26/25 at 15:30; Stop 04/28/25 at 03:13; Status DC Dexmedetomidine/ Sodium Chloride 400 mcg PROTOCOL PRN IV Last administered on 04/27/25at 23:31; Start 04/26/25 at 19:30; Stop 05/01/25 at 12:45; Status DC Dexmedetomidine/ Sodium Chloride 400 mcg STK-MED ONCE IV Last administered on 04/26/25at 19:14; Start 04/26/25 at 19:10; Stop 04/26/25 at 19:11; Status DC Insulin Human Regular INSULIN SLIDING SCAL... Q4H SQ Last administered on 04/28/25at 06:00; Start 04/27/25 at 20:30; Stop 04/28/25 at 09:11; Status DC Vancomycin HCl 250 ml @ 125 mls/hr Q12H IV; Start 04/28/25 at 15:30; Stop 04/28/25 at 18:53; Status DC Insulin Human Regular 8 unit TIDAC SQ Last administered on 04/30/25at 06:15; Start 04/28/25 at 07:30; Stop 04/30/25 at 07:31; Status DC Vancomycin HCl 250 ml @ 125 mls/hr Q12H IV Last administered on 05/02/25at 10:21; Start 04/28/25 at 20:00; Stop 05/02/25 at 20:34; Status DC Insulin Glargine 40 units DAILY SQ; Start 04/29/25 at 09:00; Stop 04/30/25 at 07:31; Status DC Lidocaine HCl 50 ml STK-MED ONCE .ROUTE; Start 04/29/25 at 16:03; Stop 04/29/25 at 16:06; Status DC Heparin Sodium/ Sodium Chloride 500 ml @ As Directed STK-MED ONCE IV; Start 04/29/25 at 16:03; Stop 04/29/25 at 16:06; Status DC Iodixanol 100 ml STK-MED ONCE .ROUTE; Start 04/29/25 at 16:04; Stop 04/29/25 at 16:06; Status DC Fentanyl Citrate 100 mcg STK-MED ONCE .ROUTE; Start 04/29/25 at 16:27; Stop 04/29/25 at 16:28; Status DC Midazolam HCl 2 mg STK-MED ONCE .ROUTE; Start 04/29/25 at 16:28; Stop 04/29/25 at 16:28; Status DC Midazolam HCl 2 mg STK-MED ONCE .ROUTE; Start 04/29/25 at 16:52; Stop 04/29/25 at 16:52; Status DC Lidocaine 1 each ONCE ONCE TP Last administered on 04/29/25at 19:18; Start 04/29/25 at 18:30; Stop 04/29/25 at 18:33; Status DC Insulin Glargine 50 units DAILY SQ Last administered on 05/04/25at 09:30; Start 04/30/25 at 09:00; Stop 05/05/25 at 07:21; Status DC Insulin Human Regular 12 unit TIDAC SQ Last administered on 05/02/25at 06:45; Start 04/30/25 at 07:30; Stop 05/02/25 at 08:05; Status DC Hydromorphone HCl 1 mg TIDP PRN IVP Last administered on 04/30/25at 20:44; Start 04/30/25 at 13:00; Stop 05/01/25 at 18:46; Status DC Acetaminophen/ Hydrocodone Bitart 1 tab Q4H PRN PO Last administered on 04/30/25at 22:07; Start 04/30/25 at 12:00; Stop 05/05/25 at 11:59; Status DC Pharmacy Profile Note 1 each ONCE MISC; Start 05/01/25 at 08:00; Stop 04/30/25 at 16:52; Status DC Immune Globulin 400 ml @ 0 mls/hr Q24H IV Last administered on 05/01/25at 16:18; Start 05/01/25 at 14:00; Stop 05/02/25 at 12:38; Status DC Pregabalin 25 mg BID PO Last administered on 05/04/25at 09:22; Start 05/01/25 at 21:00; Stop 05/05/25 at 07:22; Status DC Lisinopril 10 mg DAILY PO Last administered on 05/12/25at 09:13; Start 05/02/25 at 09:00; Stop 05/13/25 at 08:46; Status DC Diphenhydramine HCl 25 mg ONCE PRN IVP; Start 05/01/25 at 15:00; Stop 05/01/25 at 15:06; Status DC Dexamethasone Sodium Phosphate 20 mg ONCE PRN IV; Start 05/01/25 at 15:00; Stop 05/01/25 at 15:05; Status DC Dexamethasone Sodium Phosphate 20 mg ONCALL IV Last administered on 05/02/25at 15:41; Start 05/01/25 at 15:30; Stop 05/03/25 at 15:31; Status DC Diphenhydramine HCl 25 mg ONCALL IVP Last administered on 05/02/25at 15:41; Start 05/01/25 at 15:30; Stop 05/03/25 at 15:31; Status DC Hydromorphone HCl 1 mg TID PRN IVP; Start 05/01/25 at 19:00; Stop 05/05/25 at 12:59; Status DC Insulin Human Regular 15 unit TIDAC SQ Last administered on 05/04/25at 17:33; Start 05/02/25 at 11:30; Stop 05/05/25 at 07:21; Status DC Immune Globulin 400 ml @ 0 mls/hr Q24H IV Last administered on 05/02/25at 16:46; Start 05/02/25 at 16:00; Stop 05/03/25 at 16:01; Status DC Vancomycin HCl 250 ml @ 125 mls/hr Q12H9 IV Last administered on 05/08/25at 08:48; Start 05/04/25 at 21:00; Stop 05/08/25 at 20:49; Status DC Pharmacy Profile Note 1 each ONCE [facility]; Start 05/03/25 at 12:00; Stop 05/03/25 at 12:58; Status DC Gentamicin Sulfate/Sodium Chloride 100 ml @ 200 mls/hr Q24H IV Last administered on 05/08/25at 14:18; Start 05/03/25 at 14:00; Stop 05/08/25 at 21:01; Status DC Dexamethasone Sodium Phosphate 20 mg ONCALL IV Last administered on 05/03/25at 17:23; Start 05/03/25 at 17:15; Stop 05/03/25 at 17:16; Status DC Diphenhydramine HCl 25 mg ONCALL IVP Last administered on 05/03/25at 17:22; Start 05/03/25 at 17:15; Stop 05/03/25 at 17:16; Status DC Immune Globulin 400 ml @ 0 mls/hr Q24H IV Last administered on 05/03/25at 17:57; Start 05/03/25 at 17:15; Stop 05/03/25 at 17:16; Status DC Fluconazole 150 mg ONCE ONCE PO Last administered on 05/04/25at 15:57; Start 05/04/25 at 15:30; Stop 05/04/25 at 15:31; Status DC Insulin Human Regular INSULIN SLIDING SCAL... ACHS SQ Last administered on 05/12/25at 20:58; Start 05/05/25 at 07:30; Stop 06/04/25 at 07:29 Insulin Glargine 30 units DAILY SQ Last administered on 05/07/25at 08:12; Start 05/05/25 at 09:00; Stop 05/07/25 at 23:47; Status DC Insulin Human Regular 12 unit TIDAC SQ; Start 05/05/25 at 07:30; Stop 05/05/25 at 22:51; Status DC Venlafaxine HCl 37.5 mg HS PO Last administered on 05/13/25at 21:47; Start 05/05/25 at 21:00; Stop 06/04/25 at 20:59 Insulin Human Regular 10 unit TIDAC SQ Last administered on 05/07/25at 16:06; Start 05/06/25 at 07:30; Stop 05/07/25 at 23:47; Status DC Dexamethasone Sodium Phosphate 10 mg ONCE ONCE IVP Last administered on 05/06/25at 20:20; Start 05/06/25 at 20:00; Stop 05/06/25 at 20:04; Status DC Diphenhydramine HCl 25 mg ONCE ONCE IV Last administered on 05/06/25at 20:20; Start 05/06/25 at 20:00; Stop 05/06/25 at 20:04; Status DC Insulin Glargine 40 units DAILY SQ Last administered on 05/12/25at 09:15; Start 05/08/25 at 09:00; Stop 05/13/25 at 06:31; Status DC Insulin Human Regular 15 unit TIDAC SQ Last administered on 05/08/25at 17:16; Start 05/08/25 at 07:30; Stop 05/09/25 at 06:24; Status DC Vancomycin HCl 750 mg Q12H IVPB Last administered on 05/09/25at 09:45; Start 05/08/25 at 21:00; Stop 05/09/25 at 13:30; Status DC Gentamicin Sulfate/Sodium Chloride 100 ml @ 200 mls/hr Q12H IV Last administered on 05/09/25at 01:36; Start 05/09/25 at 02:00; Stop 05/09/25 at 13:30; Status DC Insulin Human Regular 18 unit TIDAC SQ Last administered on 05/09/25at 06:49; Start 05/09/25 at 07:30; Stop 05/10/25 at 09:56; Status DC Heparin Sodium (Porcine) 5,000 unit STK-MED ONCE .ROUTE Last administered on 05/09/25at 10:07; Start 05/09/25 at 09:57; Stop 05/09/25 at 09:57; Status DC Pharmacy Profile Note 1 each ONCE MISC; Start 05/09/25 at 13:00; Stop 05/09/25 at 13:42; Status DC Nystatin apply abdominal fold/perineum BID TP Last administered on 05/13/25at 21:44; Start 05/09/25 at 21:00; Stop 06/08/25 at 20:59 Daptomycin 1000 mg/Sodium Chloride 100 ml @ 200 mls/hr Q24H IV Last administered on 05/11/25at 16:20; Start 05/09/25 at 15:00; Stop 05/12/25 at 17:41; Status DC Ceftaroline Fosamil 400 mg/ Sodium Chloride 250 ml @ 250 mls/hr Q12H IV Last administered on 05/14/25at 05:22; Start 05/09/25 at 17:00; Stop 05/19/25 at 16:59 Insulin Human Regular 10 unit TIDAC SQ Last administered on 05/11/25at 12:10; Start 05/10/25 at 11:30; Stop 06/09/25 at 11:29 Diphenhydramine HCl 25 mg ONCE ONCE IV Last administered on 05/11/25at 01:55; Start 05/11/25 at 02:00; Stop 05/11/25 at 02:01; Status DC Lidocaine 1 patch ONCE ONCE TP Last administered on 05/11/25at 05:34; Start 05/11/25 at 05:30; Stop 05/11/25 at 05:32; Status DC Pantoprazole Sodium 40 mg DAILY PO Last administered on 05/13/25at 08:48; Start 05/11/25 at 09:00; Stop 06/10/25 at 08:59 Tramadol HCl 50 mg Q6H PRN PO Last administered on 05/12/25at 22:31; Start 05/11/25 at 22:00; Stop 05/16/25 at 21:59 Lidocaine 1 patch Q24H TP; Start 05/12/25 at 05:00; Stop 06/11/25 at 04:59 Phytonadione 10 mg/Sodium Chloride 51 ml @ 100 mls/hr ONCE ONCE IVPB Last administered on 05/12/25at 16:53; Start 05/12/25 at 16:00; Stop 05/12/25 at 16:30; Status DC Daptomycin 1000 mg/Sodium Chloride 100 ml @ 200 mls/hr Q24H IV Last administered on 05/13/25at 18:08; Start 05/12/25 at 18:00; Stop 05/22/25 at 17:59 Gadoterate Meglumine 10 mmol STK-MED ONCE IV; Start 05/12/25 at 17:55; Stop 05/12/25 at 18:00; Status DC Insulin Glargine 30 units DAILY SQ; Start 05/13/25 at 09:00; Stop 06/12/25 at 08:59 Lactose 237 ml ONCE ONCE PO; Start 05/13/25 at 13:00; Stop 05/13/25 at 20:20; Status DC Albumin Human 100 ml @ 0 mls/hr AD IV; Start 05/13/25 at 16:00; Stop 05/14/25 at 15:59 PARAG VANG MD May 14, 2025 07:05
[2025-05-14 07:50] LABS: ABG BASE EXCESS -3.2 mmol/L (-2.0-3.0); ABG HCO3 21.1 mmol/L (21.0-28.0); ABG OXYGEN SATURATION 95.2 % (94.0-98.0); ABG PCO2 36 mmHg (32-45); ABG PH 7.386 (7.350-7.450); DEVICE COMMENT RR NATHAN; PO2, ARTERIAL BG 76.4 mmHg (83.0-108.0); TEMPERATURE, CELSIUS BG 37.0 CELSIUS (35.5-37.0); VENT MODE, BG RA (ROOM AIR)
--- NOTE | 2025-05-14 08:01 | NUR ---
A.M. METOPROLOL HELD IN ORDER TO PREVENT HYPOTENSION. CURRENT BLOOD PRESSURE 105/66.
--- NOTE | 2025-05-14 08:09 | NUR ---
A.M DOSE OF LANTUS INSULIN HELD IN ORDER TO PREVENT HYPOGLYCEMIA. LATEST BLOOD SUGAR CHECK RESULT IS 85 MG/DL. WHEN ASKED IF PATIENT WAS GOING TO EAT BREAKFAST, PATIENT STATED "NO. I DON'T USUALLY GET HUNGRY UNTIL AROUND LUNCH TIME".
--- NOTE | 2025-05-14 08:43 | PN ---
LOCATION: 314. SUBJECTIVE: The patient apparently has continuing bacteremia with gram-positive cocci MRSA. MRI is showing an intradiscal fluid collection with extension in the epidural space. Dr. Sanchez has been consulted to see if this needs to be drained. PHYSICAL EXAMINATION: GENERAL: Shows a pleasant woman. VITAL SIGNS: Blood pressure 116/68, pulse 87, respirations 20. HEENT: Benign. CHEST: Clear. ABDOMEN: Soft. EXTREMITIES: Show edema. NEUROLOGIC: Alert and oriented. IMPRESSION: * Persistent MRSA bacteremia. * UTI with staph. * L2-L3 osteomyelitis. * Right hydronephrosis, status post nephrostomy tube. * Hyperglycemia. * Urinary retention. * Cirrhosis. * Lupus. * Thrombocytopenia. * Diabetes. PLAN: Continue medical management per the primary team. Neurosurgery consult. They are still working on [facility]ara placement when she is stable. TID: [id number] RECEIPT: [id number]
--- NOTE | 2025-05-14 09:03 | PN ---
FOLLOWUP PROGRESS NOTE SUBJECTIVE: A 54-year-old female has had a prolonged hospital course. The patient with a history of diabetes mellitus and hypertension. The patient with persistent bacteremia. She continues to have worsening renal dysfunction while in the hospital. Most recent cultures have been negative thus far and the patient is being seen as a followup visit for all of the above. REVIEW OF SYSTEMS: CONSTITUTIONAL: She is feeling weak and tired. HEENT: No change in vision. No change in hearing. CARDIOVASCULAR: There are no current chest pains or palpitations. PULMONARY: No shortness of breath. GASTROINTESTINAL: Appetite is poor. MUSCULOSKELETAL: Complains of weakness. OBJECTIVE: VITAL SIGNS: Blood pressure 116/58, pulse 80, afebrile. GENERAL: She is a chronically ill female, much older than appearing. HEENT: Head is atraumatic. Pupils are equal, roving to light. Oropharynx is without exudate. Nares are clear. NECK: There is no JVP. There is no thyromegaly, no mass. CARDIOVASCULAR: Regular. There is no S3 or S4 gallop. LUNGS: Coarse with equal thoracic movement. ABDOMEN: Soft, nondistended, nontender. EXTREMITIES: There is no clubbing, no cyanosis. NEUROLOGICAL: She is awake. She is alert. LABORATORY DATA: Hemoglobin 7.6, hematocrit 23, white cell count is 8000, BUN 63, creatinine is 3. IMPRESSION: * Acute on chronic renal failure. * Persistent bacteremia. * Diabetes mellitus. * History of lupus. PLAN: The patient continues to do poorly from a general medical standpoint. The patient's repeat cultures thus far have been negative. Creatinine continues to slowly rise. We will continue to monitor the chemistries closely. There is no acute need for any form of renal replacement therapy. All labs can be repeated in the morning. TID: [id number] RECEIPT: [id number]
--- NOTE | 2025-05-14 12:45 | NUR ---
ENTERED PATIENT'S ROOM FOR MEDICATION ADMINISTRATION. PATIENT IS VERY SLEEPY AND AROUSES TO LIGHT SHAKING. ASKED PATIENT IF SHE WAS GOING TO EAT LUNCH. PATIENT STATES, "NO NOT RIGHT NOW. LATER". CURRENT BLOOD SUGAR IS 87 MG/DL. WILL HOLD INSULIN TO PREVENT HYPOGLYCEMIA.
--- NOTE | 2025-05-14 13:09 | PN ---
GASTROENTEROLOGY PROGRESS NOTE Date of Visit: May 14, 2025 Time of Visit: 13:09 Events / Notes: This is a 54-year-old female who is known to services with past medical history of sleep apnea, diabetes, hypertension, hyperlipidemia, hypothyroidism, restless leg, anxiety, depression, and lupus, morbid obesity who presented due to severe lower back pain for which she is taking prednisone daily for her lupus. We were consulted due to cirrhosis, splenomegaly and portal hypertension. Patient actually underwent EGD last year in 2023 for which revealed grade 3 esophageal varices. She never followed up in clinic due to financial barriers. No overt GI bleeding. Hemoglobin stable at 11.0. Review of Systems: CONSTITUTIONAL: No malaise or change in sensation of wellbeing. ENMT: No rhinorrhea, otorrhea, sinus pain, ear ache. CARDIOVASCULAR: No angina, palpitations, orthopnea or paroxysmal dyspnea. RESPIRATORY: No SOB. GASTROINTESTINAL: No abdominal pain, nausea, vomiting, diarrhea, hematemesis, melena or change in the patient's habitual bowel movements consistency/number. GENITOURINARY: No dysuria, hematuria or change in bladder continence. MUSCULOSKELETAL: No new muscle pain or decrease in muscular strength. No new joint swelling, redness or tenderness. SKIN: No new rash. Physical Exam: GEN: Awake, alert, oriented in person, time and place, and in no acute distress. HEENT: No sinus tenderness. Tympanic membranes were not examined. No rhinorrhea. Oral pharyngeal mucosa is pink, moist and within normal limits. Neck is supple with no cervical lymphadenopathy, thyromegaly or JVD. CHEST: Inspection, palpation and percussion of the chest were unremarkable. Lung auscultation revealed normal breath sounds bilaterally. CARDIAC: PMI is within normal limits. Heart sounds are regular. Normal S1, S2. No gallop or murmur. ABD: Soft, non-tender and not distended. No peritoneal signs on palpation. No organomegaly. Normal bowel sounds. EXT: No cyanosis or clubbing. No edema. SKIN: Intact. No rashes. JOINTS: No evidence of synovitis or acute arthritis. NEURO: Alert and oriented to name, place and person. Cranial nerve examination is unremarkable. No focal motor deficits. Normal speech. Gait is normal. Strength is normal. Vital Signs (last 8hr) Date Time Temp Pulse Resp B/P (MAP) Pulse Ox O2 Delivery O2 Flow Rate FiO2 05/14/25 12:00 97.9 99 19 100/51 92 Room Air 05/14/25 08:06 95 Room Air* 0 21 05/14/25 08:00 97.9 84 19 105/66 95 Room Air 05/14/25 05:53 98.1 85 17 116/58 93 Room Air Laboratory: [ ] Laboratory: Test 05/14/25 11:59 05/14/25 07:48 05/14/25 04:21 05/13/25 22:16 Range/Units Whole Blood Glucose 87 70-110 MG/DL Blood Gas Specimen Type Arterial Arterial Blood pH 7.386 7.350-7.450 Arterial Blood Partial Pressure CO2 36 32-45 mmHg Arterial Blood Partial Pressure O2 76.4 L 83.0-108.0 mmHg Arterial Blood HCO3 21.1 21.0-28.0 mmol/L Arterial Blood Oxygen Saturation 95.2 94.0-98.0 % Arterial Blood Base Excess -3.2 L -2.0-3.0 mmol/L Blood Gas Temperature 37.0 35.5-37.0 CELSIUS Blood Gas Vent Mode RA ROOM AIR FiO2 21.0 % Blood Gas Specimen Comment RR REBECCA White Blood Count 8.5 4.8-10.8 K/uL Red Blood Count 2.78 L 4.00-5.50 MIL/uL Hemoglobin 7.6 L 12.0-16.0 g/dL Hematocrit 23.6 L 36-48 % Mean Corpuscular Volume 84.9 79-99 fL Mean Corpuscular Hemoglobin 27.3 27.0-33.0 pg Mean Corpuscular Hemoglobin Concent 32.2 32.0-36.0 g/dL Red Cell Distribution Width 27.4 H 11.0-15.5 % Platelet Count 27 L 130-400 K/uL Mean Platelet Volume 10.3 7.5-10.5 fL Immature Granulocyte % (Auto) 0.9 0-1 % Neutrophils (%) (Auto) 79.2 H 40.0-77.0 % Lymphocytes (%) (Auto) 8.4 L 21.0-51.0 % Monocytes (%) (Auto) 9.6 3.0-13.0 % Eosinophils (%) (Auto) 1.8 0.0-8.0 % Basophils (%) (Auto) 0.1 0.0-5.0 % Neutrophils # (Auto) 6.7 1.8-7.7 K/uL Lymphocytes # (Auto) 0.7 L 1.0-4.8 K/uL Monocytes # (Auto) 0.8 0.1-1.0 K/uL Eosinophils # (Auto) 0.15 0.00-0.70 K/uL Basophils # (Auto) 0.01 0.00-0.20 K/uL Absolute Immature Granulocyte (auto 0.08 0-1 K/uL Nucleated Red Blood Cells 0.0 0.0-0.19 % Sodium Level 132 L 136-145 mmol/L Potassium Level 5.1 3.5-5.1 mmol/L Chloride Level 104 101-111 mmol/L Carbon Dioxide Level 24 21-32 mmol/L Blood Urea Nitrogen 63 H 7-18 mg/dL Creatinine 3.2 H 0.5-1.0 mg/dL Glomerular Filtration Rate Calc 16 >90 mL/min Random Glucose 93 70-105 mg/dL Total Calcium 8.4 L 8.5-10.1 mg/dL Phosphorus Level 5.9 H 2.5-4.9 mg/dL Total Bilirubin 2.8 H 0.2-1.0 mg/dL Aspartate Amino Transf (AST/SGOT) 212 H 10-37 U/L Alanine Aminotransferase (ALT/SGPT) 167 H 12-78 U/L Alkaline Phosphatase 578 H 50-136 U/L Total Creatine Kinase 579 *H 21-232 U/L Troponin I High Sensitivity 27.6 4-50 ng/L B-Type Natriuretic Peptide 135 H 0-100 pg/mL Total Protein 7.2 6.0-8.3 g/dL Albumin 1.7 L 3.5-5.0 g/dL Urine Color YELLOW YELLOW Urine Appearance CLOUDY H CLEAR Urine pH 5.5 5.0-8.0 Urine Specific [place] 1.014 1.001-1.031 Urine Protein 100 H NEGATIVE mg/dL Urine Glucose (UA) TRACE H NEGATIVE mg/dL Urine Ketones NEGATIVE NEGATIVE mg/dL Urine Occult Blood LARGE H NEGATIVE Urine Nitrate NEGATIVE NEGATIVE Urine Bilirubin NEGATIVE NEGATIVE mg/dL Urine Urobilinogen 0.2 0.2-1.0 mg/dL Urine Leukocyte Esterase 25 H NEGATIVE Que/uL Urine RBC TNTC H 0-1 /HPF Urine WBC 26-50 H 0-1 /HPF Urine WBC Clumps (Auto) FEW 0-1 /HPF Urine Bacteria RARE None Seen /HPF Urine Granular Casts (Auto) >100 H None Seen /LPF Urine Yeast FEW None Seen /HPF Urine Random Creatinine 56.37 30-135 mg/dL Test 05/13/25 04:18 Range/Units Prothrombin Time 16.9 H 9.6-11.6 SEC Prothromb Time International Ratio 1.68 H 0.85-1.15 Activated Partial Thromboplast Time 45.8 H 26.3-35.5 SEC Current Medications Medications (Trade) Dose Ordered Sig/Roberth Route PRN Reason Start Time Stop Time Status Last Admin Dose Admin Acetaminophen (TYLenol 325MG TAB) 650 mg Q4H PRN PO MILD PAIN (1-3) 04/22/25 20:00 05/22/25 19:59 05/11/25 21:31 650 MG Acetaminophen (TYLenol 325MG TAB) 650 mg Q6H PRN PO TEMPERATURE GREATER THAN 101.5 04/22/25 20:00 05/22/25 19:59 04/23/25 10:02 650 MG Acetaminophen/ Hydrocodone Bitart (NORco 5/325MG) 1 tab Q4H PRN PO MODERATE PAIN (4-6) 04/30/25 12:00 05/05/25 11:59 DC 04/30/25 22:07 1 TAB Albumin Human 100 ml @ 0 mls/hr AD IV 05/13/25 16:00 05/14/25 15:59 Atorvastatin Calcium (LIPItor 20MG) 20 mg HS PO 04/24/25 21:00 05/13/25 15:42 DC 05/12/25 20:57 20 MG Ceftaroline Fosamil 400 mg/ Sodium Chloride 250 ml @ 250 mls/hr Q12H IV 05/09/25 17:00 05/19/25 16:59 05/14/25 05:22 250 MLS/HR Ceftriaxone Sodium 1 gm/ Sodium Chloride 50 ml @ 100 mls/hr BID IV 04/22/25 21:00 04/22/25 19:59 DC Ceftriaxone Sodium (ROCEphine 1G INJ) 1 gm BID IVPB 04/22/25 21:00 04/22/25 20:44 DC Ceftriaxone Sodium (ROCEphine 1G INJ) 1 gm BID IVPB 04/23/25 09:00 04/25/25 12:36 DC 04/25/25 09:44 1 GM Daptomycin 1000 mg/Sodium Chloride 100 ml @ 200 mls/hr Q24H IV 05/09/25 15:00 05/12/25 17:41 DC 05/11/25 16:20 200 MLS/HR Daptomycin 1000 mg/Sodium Chloride 100 ml @ 200 mls/hr Q24H IV 05/12/25 18:00 05/22/25 17:59 05/13/25 18:08 200 MLS/HR Dexamethasone Sodium Phosphate (dexaMETHasone 4MG/ML 1ML VIAL) 20 mg ONCALL IV 05/01/25 15:30 05/03/25 15:31 DC 05/02/25 15:41 20 MG Dexamethasone Sodium Phosphate (dexaMETHasone 4MG/ML 1ML VIAL) 20 mg ONCALL IV 05/03/25 17:15 05/03/25 17:16 DC 05/03/25 17:23 20 MG Dexamethasone Sodium Phosphate (dexaMETHasone 4MG/ML 1ML VIAL) 20 mg ONCE PRN IV PRE-MED 05/01/25 15:00 05/01/25 15:05 DC Dexmedetomidine/ Sodium Chloride (PRECEdex 200MCG/ 50ML-NS) 200 mcg PROTOCOL IV 04/26/25 12:00 04/26/25 14:54 DC Dexmedetomidine/ Sodium Chloride (PRECEdex 400MCG/ 100ML-NS) 400 mcg PROTOCOL PRN IV ANXIETY/AGITATION 04/26/25 19:30 05/01/25 12:45 DC 04/27/25 23:31 400 MCG Dexmedetomidine/ Sodium Chloride (PRECEdex 400MCG/ 100ML-NS) 400 mcg PROTOCOL STAT IV 04/26/25 14:53 04/26/25 14:58 DC 04/26/25 15:18 400 MCG Dextrose 1,000 ml @ 75 mls/hr [id number] IV 04/26/25 12:00 04/30/25 09:36 DC 04/29/25 04:27 150 MLS/HR Dextrose (D50w) 50 ml AD PRN IV HYPOGLYCEMIA PROTOCOL 04/22/25 20:00 05/22/25 19:59 Diphenhydramine HCl (BENAdryl INJ) 25 mg ONCALL IVP 05/01/25 15:30 05/03/25 15:31 DC 05/02/25 15:41 25 MG Diphenhydramine HCl (BENAdryl INJ) 25 mg ONCALL IVP 05/03/25 17:15 05/03/25 17:16 DC 05/03/25 17:22 25 MG Diphenhydramine HCl (BENAdryl INJ) 25 mg ONCE PRN IVP PRE-MED 05/01/25 15:00 05/01/25 15:06 DC Famotidine (Pepcid 20mg Tab) 20 mg DAILY PO 04/23/25 09:00 04/24/25 09:48 DC 04/23/25 09:33 20 MG Gabapentin (NEURontin 300 MG CAP) 300 mg BID PO 04/24/25 21:00 04/28/25 09:10 DC 04/25/25 21:51 300 MG Gentamicin Sulfate/Sodium Chloride 100 ml @ 200 mls/hr Q12H IV 05/09/25 02:00 05/09/25 13:30 DC 05/09/25 01:36 200 MLS/HR Gentamicin Sulfate/Sodium Chloride 100 ml @ 200 mls/hr Q24H IV 05/03/25 14:00 05/08/25 21:01 DC 05/08/25 14:18 200 MLS/HR Glucagon (Glucagon 1mg Kit) 1 mg AD PRN IM HYPOGLYCEMIA PROTOCOL 04/22/25 20:00 05/22/25 19:59 Heparin Sodium (Porcine) (HEParin 5,000 UNIT VIAL) 5,000 unit Q8H SQ 04/25/25 09:00 04/25/25 08:40 DC Hydromorphone HCl (DiLAUDid 0.5MG INJ) 0.5 mg BIDPRN PRN IVP SEVERE PAIN (7-10) 04/25/25 19:00 04/30/25 11:59 DC 04/29/25 23:31 0.5 MG Hydromorphone HCl (DiLAUDid 0.5MG INJ) 0.5 mg Q6H PRN IVP SEVERE PAIN (7-10) 04/23/25 14:00 04/25/25 08:25 DC 04/25/25 04:14 0.5 MG Hydromorphone HCl (DiLAUDid 1MG INJ) 1 mg TID PRN IVP SEVERE PAIN (7-10) 05/01/25 19:00 05/05/25 12:59 DC Hydromorphone HCl (DiLAUDid 1MG INJ) 1 mg TIDP PRN IVP SEVERE PAIN (7-10) 04/30/25 13:00 05/01/25 18:46 DC 04/30/25 20:44 1 MG Immune Globulin 400 ml @ 0 mls/hr Q24H IV 05/01/25 14:00 05/02/25 12:38 DC 05/01/25 16:18 37.5 MLS/HR Immune Globulin 400 ml @ 0 mls/hr Q24H IV 05/02/25 16:00 05/03/25 16:01 DC 05/02/25 16:46 37.5 MLS/HR Immune Globulin 400 ml @ 0 mls/hr Q24H IV 05/03/25 17:15 05/03/25 17:16 DC 05/03/25 17:57 37.5 MLS/HR Insulin Glargine (LANtus 100 UNITS/ML 10 ML VIAL) 10 units HS SQ 04/24/25 21:00 04/24/25 16:57 DC Insulin Glargine (LANtus 100 UNITS/ML 10 ML VIAL) 10 units ONCE STAT SQ 04/24/25 10:54 04/24/25 11:00 DC 04/24/25 11:19 10 UNITS Insulin Glargine (LANtus 100 UNITS/ML 10 ML VIAL) 15 units HS SQ 04/24/25 21:00 04/24/25 17:06 DC Insulin Glargine (LANtus 100 UNITS/ML 10 ML VIAL) 30 units DAILY SQ 05/05/25 09:00 05/07/25 23:47 DC 05/07/25 08:12 30 UNITS Insulin Glargine (LANtus 100 UNITS/ML 10 ML VIAL) 30 units DAILY SQ 05/13/25 09:00 06/12/25 08:59 Insulin Glargine (LANtus 100 UNITS/ML 10 ML VIAL) 30 units ONCE SQ 04/24/25 17:00 04/25/25 06:19 DC 04/24/25 18:16 30 UNITS Insulin Glargine (LANtus 100 UNITS/ML 10 ML VIAL) 40 units DAILY SQ 05/08/25 09:00 05/13/25 06:31 DC 05/12/25 09:15 40 UNITS Insulin Glargine (LANtus 100 UNITS/ML 10 ML VIAL) 40 units DAILY SQ 04/29/25 09:00 04/30/25 07:31 DC Insulin Glargine (LANtus 100 UNITS/ML 10 ML VIAL) 50 units DAILY SQ 04/26/25 09:00 04/29/25 06:49 DC 04/28/25 08:46 50 UNITS Insulin Glargine (LANtus 100 UNITS/ML 10 ML VIAL) 50 units DAILY SQ 04/30/25 09:00 05/05/25 07:21 DC 05/04/25 09:30 50 UNITS Insulin Human Regular (humuLIN R 100 UNIT/ML 3ML) 5 unit TIDAC SQ 04/24/25 17:00 04/24/25 17:06 DC Insulin Human Regular (humuLIN R 100 UNIT/ML 3ML) 8 unit TIDAC SQ 04/28/25 07:30 04/30/25 07:31 DC 04/30/25 06:15 8 UNIT Insulin Human Regular (humuLIN R 100 UNIT/ML 3ML) 10 unit TIDAC SQ 05/06/25 07:30 05/07/25 23:47 DC 05/07/25 16:06 10 UNIT Insulin Human Regular (humuLIN R 100 UNIT/ML 3ML) 10 unit TIDAC SQ 05/10/25 11:30 06/09/25 11:29 05/11/25 12:10 10 UNIT Insulin Human Regular (humuLIN R 100 UNIT/ML 3ML) 10 unit TIDAC SQ 04/24/25 17:00 04/25/25 06:17 DC 04/25/25 06:15 10 UNIT Insulin Human Regular (humuLIN R 100 UNIT/ML 3ML) 12 unit TIDAC SQ 05/05/25 07:30 05/05/25 22:51 DC Insulin Human Regular (humuLIN R 100 UNIT/ML 3ML) 12 unit TIDAC SQ 04/30/25 07:30 05/02/25 08:05 DC 05/02/25 06:45 12 UNIT Insulin Human Regular (humuLIN R 100 UNIT/ML 3ML) 15 unit TIDAC SQ 05/02/25 11:30 05/05/25 07:21 DC 05/04/25 17:33 15 UNIT Insulin Human Regular (humuLIN R 100 UNIT/ML 3ML) 15 unit TIDAC SQ 05/08/25 07:30 05/09/25 06:24 DC 05/08/25 17:16 15 UNIT Insulin Human Regular (humuLIN R 100 UNIT/ML 3ML) 15 unit TIDAC SQ 04/26/25 11:30 04/27/25 20:30 DC Insulin Human Regular (humuLIN R 100 UNIT/ML 3ML) 18 unit TIDAC SQ 05/09/25 07:30 05/10/25 09:56 DC 05/09/25 06:49 18 UNIT Insulin Human Regular (humuLIN R 100 UNIT/ML 3ML) 25 unit TIDAC SQ 04/25/25 07:30 04/26/25 07:58 DC 04/25/25 17:39 25 UNIT Insulin Human Regular (humuLIN R 100 UNIT/ML 3ML) INSULIN SLIDING SCAL... ACHS SQ 04/22/25 21:00 04/24/25 16:16 DC 04/24/25 11:18 8 UNIT Insulin Human Regular (humuLIN R 100 UNIT/ML 3ML) INSULIN SLIDING SCAL... ACHS SQ 05/05/25 07:30 06/04/25 07:29 05/12/25 20:58 4 UNIT Insulin Human Regular (humuLIN R 100 UNIT/ML 3ML) INSULIN SLIDING SCAL... ACHS SQ 04/24/25 16:30 04/25/25 14:09 DC 04/25/25 11:57 16 UNIT Insulin Human Regular (humuLIN R 100 UNIT/ML 3ML) INSULIN SLIDING SCAL... ACHS SQ 04/25/25 16:30 05/04/25 23:42 DC 05/04/25 20:49 6 UNIT Insulin Human Regular (humuLIN R 100 UNIT/ML 3ML) INSULIN SLIDING SCAL... Q4H SQ 04/27/25 20:30 04/28/25 09:11 DC 04/28/25 06:00 4 UNIT Lactated Ringer's 1,000 ml @ 100 mls/hr Q10H IV 04/22/25 20:00 04/23/25 10:09 DC 04/23/25 06:00 100 MLS/HR Lactulose (Constulose 20gm/ 30ml Udcup) 30 gm TID PO 04/25/25 11:00 04/30/25 09:45 DC 04/30/25 09:16 30 GM Levothyroxine Sodium (SYNTHroid 125MCG TAB) 125 mcg DAILY@0630 PO 04/25/25 06:30 05/25/25 06:29 05/14/25 06:41 125 MCG Lidocaine (Lidoderm Patch 5%) 1 patch Q24H TP 05/12/25 05:00 06/11/25 04:59 Lisinopril (Prinivil 10mg) 10 mg DAILY PO 05/02/25 09:00 05/13/25 08:46 DC 05/12/25 09:13 10 MG Magnesium Sulfate 50 ml @ 0 mls/hr PROTOCOL PRN IV OTHER [SEE ORDER COMMENTS] 04/22/25 20:00 05/22/25 19:59 Methylprednisolone Sodium Succinate (Solu-medROL 125MG) 125 mg Q6H IVP 04/23/25 08:00 04/28/25 09:10 DC 04/25/25 09:45 125 MG Metoprolol Succinate (TopROL XL) 50 mg AM PO 04/25/25 09:00 05/25/25 08:59 05/13/25 08:48 50 MG Nystatin (NystOP 15 GM POWDER) apply abdominal fold/perineum BID TP 05/09/25 21:00 06/08/25 20:59 05/14/25 08:07 1 APPL Ondansetron HCl (zoFRAN 4MG INJ) 4 mg Q6H PRN IV NAUSEA/VOMITING 04/22/25 20:00 05/22/25 19:59 04/22/25 20:10 4 MG Pantoprazole Sodium (PROTonix 40MG INJ) 40 mg DAILY IVP 04/24/25 10:00 05/11/25 08:11 DC 05/10/25 09:09 40 MG Pantoprazole Sodium (PROTonix 40MG TAB) 40 mg DAILY PO 05/11/25 09:00 06/10/25 08:59 05/14/25 08:06 40 MG Pharmacy Profile Note (Pharmacy Communication) 1 each ONCE MISC 05/01/25 08:00 04/30/25 16:52 DC Pharmacy Profile Note (Pharmacy Communication) 1 each ONCE MISC 05/03/25 12:00 05/03/25 12:58 DC Pharmacy Profile Note (Pharmacy Communication) 1 each ONCE MISC 05/09/25 13:00 05/09/25 13:42 DC Potassium Chloride 100 ml @ 100 mls/hr AD PRN IV POTASSIUM PROTOCOL 04/22/25 20:00 05/22/25 19:59 Potassium Chloride (K-Dur/Klor-Con 20meq) 20 meq AD PRN PO POTASSIUM PROTOCOL 04/22/25 20:00 05/22/25 19:59 05/03/25 13:10 20 MEQ Potassium Chloride (KCl 10% Elixir 20meq/15ml) 20 meq AD PRN PO POTASSIUM PROTOCOL 04/22/25 20:00 05/22/25 19:59 Pramipexole Dihydrochloride (miraPEX 0.25MG TAB) 0.5 mg HS PO 04/24/25 21:00 05/24/25 20:59 05/13/25 21:47 0.5 MG Pregabalin (LYRica 25MG) 25 mg BID PO 05/01/25 21:00 05/05/25 07:22 DC 05/04/25 09:22 25 MG Pregabalin ([id number]) 75 mg BID PO 04/24/25 21:00 04/24/25 14:49 DC Sodium Chloride 500 ml @ 0 mls/hr Q0M IV 04/25/25 11:00 05/25/25 10:59 Sodium Zirconium Cyclosilicate (Lokelma 10gm Powder) 10 gm TID PO 04/23/25 21:00 04/23/25 14:11 DC Tramadol HCl (UltRAM) 50 mg Q6H PRN PO MODERATE PAIN (4-6) 05/11/25 22:00 05/16/25 21:59 05/12/25 22:31 50 MG Tramadol HCl (UltRAM) 50 mg Q6H PRN PO MODERATE PAIN (4-6) 04/24/25 22:30 04/29/25 22:29 DC 04/28/25 13:55 50 MG Trimethoprim/ Sulfamethoxazole (BactRIM DS) 1 tab BID PO 04/25/25 21:00 04/26/25 14:50 DC 04/25/25 21:51 1 TAB Vancomycin HCl 250 ml @ 125 mls/hr Q12H IV 04/24/25 23:00 04/25/25 12:36 DC 04/25/25 11:43 125 MLS/HR Vancomycin HCl 250 ml @ 125 mls/hr Q12H IV 04/26/25 15:30 04/28/25 03:13 DC 04/27/25 15:22 125 MLS/HR Vancomycin HCl 250 ml @ 125 mls/hr Q12H IV 04/28/25 15:30 04/28/25 18:53 DC Vancomycin HCl 250 ml @ 125 mls/hr Q12H IV 04/28/25 20:00 05/02/25 20:34 DC 05/02/25 10:21 125 MLS/HR Vancomycin HCl 250 ml @ 125 mls/hr Q12H9 IV 05/04/25 21:00 05/08/25 20:49 DC 05/08/25 08:48 125 MLS/HR Vancomycin HCl (Vancomycin 750mg) 750 mg Q12H IVPB 05/08/25 21:00 05/09/25 13:30 DC 05/09/25 09:45 750 MG Vancomycin HCl (Vancomycin Protocol) 1 each AD IV 04/24/25 10:30 04/25/25 12:36 DC Vancomycin HCl (Vancomycin Protocol) 1 each AD IV 04/26/25 15:00 05/09/25 13:30 DC Venlafaxine HCl (EffEXOR XR 37.5mg CAP) 37.5 mg DAILY PO 04/24/25 16:00 05/05/25 11:18 DC 05/04/25 09:21 37.5 MG Venlafaxine HCl (EffEXOR XR 37.5mg CAP) 37.5 mg DAILY PO 04/25/25 09:00 04/24/25 14:50 DC Venlafaxine HCl (EffEXOR XR 37.5mg CAP) 37.5 mg HS PO 05/05/25 21:00 06/04/25 20:59 05/13/25 21:47 37.5 MG Diagnostics / Radiology: [COPY/PASTE HERE IF NO REPORTS PLEASE DELETE SECTION] Assessment: Decompensated cirrhosis HTN Esophageal varies Plan: Patient with known cirrhosis however lost to follow-up. Hold off on EGD given no overt GI bleeding and stable hemoglobin We will monitor closely [facility]HZAD [facility] May 14, 2025 13:09
--- NOTE | 2025-05-14 13:25 | NUR ---
ENTERED PATIENT ROOM WITH DR. SOARES DURING ROUNDS. PATIENT IS SLEEPY AND BREATHING WITH HEAVY, GASP-LIKE BREATHS. DR. SOARES ASSESSED PATIENT AND RECOMMENDED THAT PATIENT BE TRANSFERRED TO ICU IF PRIMARY TEAM WAS TO AGREE. DR. ALBERT NOTIFIED OF PATIENT'S CHANGE IN CONDITION. VITAL SIGNS ARE STABLE AT THIS TIME. PER DR. ALBERT, OKAY TO TRANSFER PATIENT TO ICU. NOTIFIED RN HOME CARE OF TRANSFER ORDER. PENDING ROOM ASSIGNMENT.
--- NOTE | 2025-05-14 13:56 | NUR ---
SW attempted to meet with pt do discuss the possibility of MPOA however pt was not appropriate at this time.
--- NOTE | 2025-05-14 14:06 | NUR ---
SPOKE WITH DYLLAN, ICU CHARGE NURSE REGARDING PATIENT TRANSFER. PER DYLLAN MERCHANT, PATIENT IS TO BE TRANSFERRED TO ROOM 208. RECEIVING NURSE WILL BE BROOKLYN MERCHANT.
--- NOTE | 2025-05-14 14:24 | NUR ---
SPOKE WITH BROOKLYN, CADASTRAL ENGINEER. REPORT GIVEN. PATIENT TRANSFERRED TO ICU. FAMILY MEMBER IN ROOM NOTIFIED OF TRANSFER. CALLED DONNA, PATIENT'S DAUGHTER, AND NOTIFIED HER OF TRANSFER.
[2025-05-14 14:30] LABS: ABG BASE EXCESS -3.4 mmol/L (-2.0-3.0); ABG HCO3 21.4 mmol/L (21.0-28.0); ABG OXYGEN SATURATION 94.0 % (94.0-98.0); ABG PCO2 38 mmHg (32-45); ABG PH 7.371 (7.350-7.450); DEVICE COMMENT RR,NATHAN; PO2, ARTERIAL BG 71.2 mmHg (83.0-108.0); TEMPERATURE, CELSIUS BG 37.0 CELSIUS (35.5-37.0); VENT MODE, BG RA (ROOM AIR)
[2025-05-14] MEDS: ALBUMIN HUMAN 25% 100 ML IV SCH (15:00)
--- NOTE | 2025-05-14 15:01 | PN ---
[facility] PROGRESS NOTE Date of Service: May 14, 2025 Time of Service: 14:47 SUBJECTIVE: This is a 54-year-old female with past medical history of undiagnosed obstructive sleep apnea, diabetes type 2, hypertension, hyperlipidemia, hypothyroidism, restless leg syndrome, anxiety disorder,depression, lupus and severe morbid obesity who presents to the ED for complaints of severe low back pain which started 2 weeks ago and getting worse for the past 2 days and patient reports she is taking prednisone 30mg po daily for her Lupus she said.Patient also reports she was recently seen in this ED for similar complaints and was diagnosed with acute lumbosacral myofascial strain. 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 Urinalysis consistent with urinary tract infection. CT abdomen and pelvis result revealed no acute intra-abdominal or pelvic pathology cirrhotic liver morphology with splenomegaly, consistent with portal hypertension. Bilateral r enal cortical thickening may reflect renal parenchymal disease. While in the ER patient received Rocephin 1 g IV, 1 L NS bolus. We will admit patient for further medical management. 04/23/25 Patient was seen and examined at bedside. She was complaining of chest pain early in the morning but her EKG and troponin were normal. Patient says she got liver cirrhosis from taking Tylenol with codeine in the past for a long time. Remarkable labs are Na 129, K 6.4. Cl 98, BUN 44. Cr 1.2 with no anion gap. New EKG shows sinus rhythm with no tall T-waves or shortened QT interval. We will give her a dose of calcium gluconate and lokelma and recheck her labs. we will hold her iv fluids for now. Her urine anion gap is 36.0 mEq/l. Repeat potassium was 4.2 and 4.6. We will order CT lumbar spine and request nephro and cardio consults due to hyponatremia, RTA and cirrhosis with portal hypertension res pectively. We will order lupus, complement , anemia panel due to her abnormal labs and h/o SLE. Hematology recommended solu medrol 125 q6. she might need hydrochloroquine upon discharge for SLE 04/24/25 Patient was seen and examined at bedside. She is complaining of widespread generalized body pain with tender points and generalized weakness, her CPK is going up, we will repeat it and start her on pregabalin. Her labs are improving. She had an EGD done last year that showed grade III varices but lost to follow up with TDS. No GI intervention as her Hb is stable. Will start her on vancomycin. Her home meds have been reconciled. She takes venlaflaxine and pramipexole for depression and restless leg syndrome respectively. Her elevated urine anion gap could be due to BALTAZAR or NSAID induced kidney injury but her creatinine is improving. Pending abdominal ultrasound and CT lumbar spine result s. 04/25/25 Patient was seen and examined. She was observed sitting in a chair but was unable to answer questions appropriately and appeared confused. Ammonia level was elevated at 59; lactulose has been initiated at 30 mL TID. She is currently receiving vancomycin for MRSA identified in the urine. Right upper quadrant ultrasound demonstrated chronic hepatic changes with a hypoechoic lesion in the right lobe of the liver, possibly representing a complex cyst. CT of the lumbar spine revealed moderate lumbar spondylosis and diffuse osteopenia. Her platelet count is 37 and showing slow improvement. Dr. Urias, covering for Dr. Lorenzo, recommended holding solu-medrol for now. If platelet count declines tomorrow, steroids may need to be restarted. Ammonia and additional labs will be rechecked in the morning. 04/26/25 Patient was seen at bedside. Will request a transfer to the ICU due to worsening agitation and hypercapnic respiratory failure requiring BIPAP support.Will order Precedex drip for sedation to improve tolerance of non-invasive ventilation. Imaging studies including CT head and MRI spine have been ordered to evaluate for underlying neurologic causes. Patient remains hemodynamically stable; pulmonary consult is in place. She is growing gram positive cocci in clusters in her blood, will request ID input on antibiotics as she was on vancomycin previously and was started on bactrim for MRSA in urine. Her platelet count is 36 and solu-medrol is on hold. Ammonia improved from 59 to 12 04/27/25 Patient was evaluated at bedside. She was transferred to the ICU yesterday due to agitation and hypercapnia, requiring a Precedex drip as she was removing her nasal cannula. BiPAP was initiated to support ventilation, and she is now resting comfortably. CT brain was unremarkable with no acute findings. She has a free water deficit of approximately 1.4 liters, for which D5W will be administered. CRP has decreased from 83.5 to 56.4. However, platelets have dropped from 36 to 28, and hematology is closely monitoring her. The patient remains NPO. We wanted to start NG tube feeding but patient has h/o esophageal varices. We will await gastroenterologys recommendations, including possible EGD if indicated. 04/28/25 Patient was evaluated at bedside, she is bed bound not very responsive to questions. She is currently off BiPAP and precedex drip. Her agitation has improved and she is resting comfortably in bed. She has MRSA bacteremia and we will repeat blood cultures. She is currently on vancomycin. She has moderate right hydronephrosis which is increasing, we will request urology consult. Her sodium is trending upwards from 147 to 152 and she has a free water deficit of 2.4 L , we will increase D5 rate from 75 to 150mls/hr. CRP improving from 56.4 to 42.7. Platelets dropped from 28 to 21, we will follow Dr. Lorenzo's recommendations and his plan is give her IgG. She is not bleeding actively. 04/29/25 Patient was evaluated at bedside. She is alert, awake and oriented. She was minimally verbal yesterday but is now more interactive, expressing pain and discussing her medical history. She reports diffuse joint pain and is unable to lift her arms or legs due to significant discomfort. She has generalized joint tenderness and weak fibreglass gun hand strength bilaterally. urologist Dr. Colin recommended nephrostomy tube on her right due to hydronephrosis. Her platelets improved to 44 without any intervention. She will be getting platelets for the procedure. She has infectious spondylodiscitis which could be the source of her bacteremia. We have requested transfer to [facility] but tobacco warehouse agent said Dr. Sanchez has privileges at [facility] and will try to consult him. Her white count went up to 12.2, LFTs mildly going up. We will hold off on gabapentin for now. 04/30/25 Patient was evaluated at bedside. She is alert, awake and oriented. Her vitals are stable. She is interactive, expressing pain and discussing her medical history. She reports diffuse joint pain and is able to lift her arms or legs slightly due to pain and discomfort. Her active and passive range of motions are limited. She has generalized joint tenderness and weak fibreglass gun hand strength bilaterally. She also passed stool more than 5 times yesterday could be due to lactulose which has been stopped from today. A Percutaneous fluroscopy-guided placement of an 8-F nephrostomy catheter was performed,the patient tolerated the procedure well. Neurosurgeon Dr. Sanchez saw the patient and came up with possible diagnosis of discitis and osteomyelitis at L2-L3 along with psoas inflammation. She has spondylolisthesis which is non- critical and can be managed medically for now. According to Dr. Lorenzo she will benefit from IVIg for 3 days on the background of possible ITP. Her current platelet is 41 and Hgb 9.6. Also, Endocrinology team adjusted Insulin regimen. We have requested cardiology consult for suspected endocarditis and will request RAMAN although she has thrombocytopenia and h/o esophageal varices. 05/01/25 Patient was evaluated at bedside. She is alert, awake and oriented. Her vitals are stable, except blood pressure which is 158/80. She reports diffuse joint pain and is able to lift her arms or legs slightly due to pain and discomfort. Her active and passive range of motions are limited. She has generalized joint tenderness and weak fibreglass gun hand strength bilaterally. As per Dr. Lorenzo she will be started IVIG from today for 3 days. As per the Cardiology, she won't undergo RAMAN due thrombocytopenia, cirrhosis, varices. We will continue IV antibiotics and add low dose pregabalin for her pain. 05/02/25 Patient was evaluated at bedside. She is alert, awake and oriented. Her vitals are stable, except blood pressure which is 157/81. Labs showed WBC decreasing from 11.6 to 5.7, platelets from 44 to 32 and random glucose of 226. There has been marked decline in pain. We will continue IV antibiotics and she is receiving Immune globulin every 24 hr. Her Insulin dosage has been adjusted. Blood culture showed gram positive cocci in clusters, STAPHYLOCOCCUS AUREUS. Her prognosis remains guarded. Plan is to discharge her to [facility] for 6 weeks of IV antibiotics. 05/03/25 Patient was evaluated at bedside. She is alert, awake and oriented. Her vitals are stable,and her blood pressure which is 137/70. Labs showed WBC 7.8 , platelets from increasing from 32 to 44 and random glucose of 232. Her creatinine level is 1.2. There has been marked decline in pain and discomfort. We will continue IV antibiotics and she is receiving Immune globulin every 24 hr. Her last dose for Immune globulin is today. Her Insulin dosage has been adjusted. Blood culture showed gram positive cocci. Her prognosis remains guarded. She is on IV vancomycin. Plan is to discharge her to [facility] for 6 weeks of IV antibiotics. 05/04/25: The patient was evaluated at the bedside today. She had just finished showering and reported new-onset slurred speech, facial weakness and word- finding difficulty. She reports no weakness in the extremities. Blood cultures remain positive for gram-positive cocci, specifically MRSA. She is continuing on vancomycin, and gentamicin was initiated yesterday per Infectious Disease recommendations. She has completed a total of three IV IgG infusions. Platelet count is currently 31,000, decreased from 41,000 yesterday. Additionally, the patient has developed a groin rash with associated itching. Physical therapy noted that she was unable to ambulate today and experienced significant difficulty with mobility. We will continue to closely monitor her neurological status, platelet counts, and overall clinical response. Repeat blood cultures will be obtained at an appropriate interval following the initiation of gentamicin, per Infectious Disease guidance. Further assessment and management plan are outlined below. 05/05/25 The patient was evaluated at the bedside today. Her vitals are stable and comm unicated well. She complaints of pain in the neck and shoulder. She reports no weakness in the extremities. Blood cultures remain positive for gram-positive cocci, specifically MRSA. She is continuing on vancomycin, and gentamicin per Infectious Disease recommendations. Repeat blood cultures will be obtained at an appropriate interval following the initiation of gentamicin. She has completed a total of three IV IgG infusions. Platelet count is [place] decreased [place] 31,000 [place] [address]. Her WBC is 6.8 and Hgb is 8.6. Her insulin medications has been adjusted by the endocrinology team. Additionally, the patient's groin rash with associated itching has been improving. She has been prescribed for Venlafaxine for management of depression and anxiety. Also Case management updated that [facility], Insurance approval is still pending; no authorization has been granted as of this time. Further assessment and management plan are outlined below. 05/06/25 The patient was evaluated at the bedside today. Her vitals are stable and communicated well. Her pain is gradually decreasing. She reports no weakness in the extremities. Blood cultures remain positive for gram-positive cocci, specifically MRSA. Blood culture has been sent today after 3 days of gentamicin. She is continuing on vancomycin, and gentamicin per Infectious Disease recommendations. . She has completed a total of three IV IgG infusions. Platelet count is currently decreased from 31,[address] As per Dr[address] Lorenzo, she has been planned for the transfusion of platelets today. Her WBC is 5.1, Hgb is 8.9, CRP 61.50 and whole blood glucose 233. In addition,PT is 17.2, INR 1.71, APTT 36.3 and Fibrinogen 119. Also, the Liver enzymes are elevated with total bilirubin of 1.6, AST 166, ALT 136 and ALP 358. Her Vancomycin trough level has increased from 5.0 to 18.1. Her insulin medications has been adjusted by the endocrinology team. Additionally, the patient's groin rash has been improving. As per Nephrology, the patient's renal function has actually greatly improved &the patient is being seen by case management in regards to placement at the [facility]. We will continue to follow the patient closely. 05/07/25 The patient was evaluated at the bedside today. Her vitals are stable and communicated well. Her pain has reduced significantly. Preliminary Blood cultures showed positive for gram-positive cocci which was done yesterday after 3 days of gentamicin. PICC line has been removed as per ID recommendation. [place] [address] today. Fecal occult blood test is positive. She received platelets transfusion yesterday. Her WBC is trending downwards from 5.1 to 3.0, Hgb is 8.4, and whole blood glucose 245. In addition, PT is 17.2, INR 1.71, APTT 36.3 and Fibrinogen 119. Her D-dimer is 7184. She has been planed today for bilateral US venous Doppler,V/Q scan and CTPA. Her Liver enzymes revealed total bilirubin of 1.9, AST 120, ALT 125 and ALP 371. Her Vancomycin trough level has decreased from 18.1 to 0.2. Her insulin medications has been followed by the endocrinology team. As per Dr Lorenzo, the patient can be transferred to [facility] as soon as accepted and he is trying to get her Promacta, medicine that raises the platelets,once its available. The WBC-tagged scan has been deferred and rescheduled for tomorrow to avoid excessive radiation exposure since patient was initially planned for V/Q scan today. 05/08/25 The patient was evaluated at the bedside today. Her vitals are stable and communicated well. She complained of hyperventilation in the night. Platelet count [id number] today. Her WBC is 5.6, Hgb is 9.1, and whole blood glucose is 314 . In addition, PT is 16, INR 1.58, APTT 35 and Fibrinogen 122. Her D-dimer is 6586. Her V/Q scan wasn't completed because she couldn't lie flat. The US venous doppler (B/L) was done which revealed no deep venous thrombosis evident in the bilateral lower extremity and No superficial thrombophlebitis in the bilateral lower extremity. Her Liver enzymes revealed total bilirubin of 1.9, AST 102, ALT 124 and ALP 391. Her Gentamicin peak and trough level is 0.2 and 0.3 respectively. Her insulin medications has been followed by the endocrinology team. We are awaiting for WBC tagged scan report. 05/09/25 The patient was evaluated at the bedside today. Her vitals are stable and communicated well. She complained of right lower [place] [address] [place]. Her WBC is 6.2, Hgb is 8.7, and random blood glucose is 236. Blood culture is positive for gram positive cocci. According to ID recommendation, Patient is started on Daptomycin and Ceftaroline. As per Dr Lorenzo, he is trying to get the promacta. Her Liver enzymes revealed total bilirubin of 1.8, AST 128, ALT 139 and ALP 410. Her creatinine is 1.2 and BUN is 41. Participation with physical therapy has been improving. We will continue to monitor patient. 05/10/25 The patient was evaluated at the bedside today. Her vitals are stable and communicated well. [place] [address] [place] [address]. Her WBCs trending downwards from 6.2 to 4.7, RBC 3.34, hemoglobin 8.8. Blood culture is positive for gram positive cocci. According to ID recommendation, Patient is on Day 2 of Daptomycin and Ceftaroline. Blood cultures will be sent on Monday. She did her 1st cycle of WBC tagged scan test. It will be done on 48 hours and then 72 hours. After that we will have the conclusive findings if anything is present. Her creatinine is trending upwards from 1.2 to 1.5 and blood urea nitrogen is 39. Her CRP is 47.80. Her creatinine is 1.2 and BUN is 41. Participation with physical therapy has been improving. As per the recommendation of Endocrinology she is getting Lantus 30 units daily and Humalog 10 units t.i.d. before beats patient's glucose are improving. Today's random blood glucose was 182. We will continue to monitor the patient. 05/11/25 The patient was evaluated at the bedside today. She complained of right upper quadrant pain. She is stable hemodynamically. Platelet count 58536. Her WBCs trending up from 4.7 to 6.8, hemoglobin 8.1. Blood culture is positive for gram positive cocci. According to ID recommendation, Patient is on Day 3 of Daptomycin and Ceftaroline. Blood cultures will be sent on Monday. She did her 2nd cycle of WBC tagged scan test. Next cycle will be done today and tomorrow.. After that we will have the conclusive findings if anything is present. Her creatinine is trending upwards from 1.2< 1.5<1.8 and blood urea nitrogen is 41. LFT trending up, bilirubin 2.1, AST 153, ALT 154, ALP 443. Her CRP is 47.80. Participation with physical therapy has been improving. As per the recommendation of Endocrinology she is getting Lantus 40 units daily and Humalog 10 units t.i.d with sliding scale insulin.. Today's random blood glucose was 210. We will continue to monitor the patient. Hematology, ID and nephrology on the board. Plan as discussed below 05/12/25 The patient was evaluated at the bedside today. She complained of right upper quadrant pain. She is [place] [address]. Her WBCs trending up from 4.7 to 6.8 to 8.4 toady, hemoglobin 8.1 to 8.4. Blood culture is positive for gram positive cocci. According to ID recommendation, Patient is on Day 4 of Daptomycin and Ceftaroline. Blood cultures will be sent today. She did her all the cycles of of WBC tagged scan test and we are awaiting the final results. Her creatinine is trending upwards from 1.2< 1.5<1.8<1.9 and blood urea nitrogen is 44. Her total creatine kinase is 383. LFT trending up, bilirubin 2.2, AST 161, ALT 158, ALP 451. Her albumin is 1.4. Ultrasonography done on 05/11 revealed increased echogenicity of the right kidney which may reflect renal parenchymal disease. Previously demonstrated liver lesion and right hydronephrosis are not visualized. Chronic hepatitis disease was present. She will receive vitamin K 10 mg. Along with other lab parameters we will check the coagulation profile. She has been planned for MRI of lumbar spine with contrast. As per the recommendation of Endocrinology she is getting Lantus 30 units daily and Humalog 10 units t.i.d with sliding scale insulin. Today's random blood glucose was 162. We will continue to monitor the patient. Hematology, ID and nephrology on the board. Plan as discussed below. 05/13/25 The patient was evaluated at the bedside today. She has petechiae [place] [address]. Her WBCs is 8.5, hemoglobin 8.1. Blood culture done on 05/12 is positive for gram positive cocci in clusters. She is continued Daptomycin and Ceftaroline (Day 5). Dr Sanchez, the neurosurgeon has been consulted for Intradiscal collection with extension into tepidural space in the lumbar region (L2-L3 level). We have also consulted dietitian for her poor appetite. We will give IV albumin for possible hepatorenal syndrome. 05/14/25 The patient was evaluated at the bedside today. Her clinical status is w orsening. We are transferring the [place] [address]. She has persistent Gram-positive, MRSA bacteremia and blood culture is still positive as of 05/14/2025. She is continued Daptomycin and Ceftaroline (Day 6). She has been started on sevelamer 800 mg per oral once. Her albumin has been changed to every 8 hourly. Critical care team has been consulted for further evaluation and management. REVIEW OF SYSTEMS CONSTITUTIONAL: No fever, chills, or night sweats. NEUROLOGICAL: Denies headache, sensory and motor deficit. CARDIOVASCULAR: Denies any exertional angina, dyspnea on exertion, orthopnea, paroxysmal nocturnal dyspnea, palpitations. PULMONARY: Complained of hyperventilation in the night,Denies any shortness of breath, cough, phlegm/sputum, hemoptysis, pleuritic chest pain. GASTROINTESTINAL: Denies nausea, vomiting. Denies pain, tenderness around the abdomen. GENITOURINARY: Denies frequency, urgency, nocturia, hematuria or incontinence. PHYSICAL EXAM GENERAL APPEARANCE: The patient is alert, awake and oriented and bedbound. NEUROLOGICAL: No sensory and motor deficits. CHEST: Normal chest expansion. LUNGS: Absence of any rales, rhonchi or any wheezing. CARDIOVASCULAR: Regular. S1 and S2 normal. No appreciable rubs, murmurs or gallops. ABDOMEN: Soft nontender, and nondistended. There is no rebound, voluntary guarding, or rigidity. GENITOURINARY: S/P day 10, Nephrostomy tube on the right side SKIN AND INTEGUMENTARY: Petechiae noted on different parts of the body. Vital Signs (last 8hr) Date Time Temp Pulse Resp B/P (MAP) Pulse Ox O2 Delivery O2 Flow Rate FiO2 05/14/25 12:00 97.9 99 19 100/51 92 Room Air 05/14/25 08:06 95 Room Air* 0 21 05/14/25 08:00 97.9 84 19 105/66 95 Room Air LABS: Laboratory: Test 05/14/25 14:28 05/14/25 14:27 05/14/25 11:59 05/14/25 04:21 Range/Units Ammonia < 10 L 11-32 umol/L Blood Gas Specimen Type Arterial Arterial Blood pH 7.371 7.350-7.450 Arterial Blood Partial Pressure CO2 38 32-45 mmHg Arterial Blood Partial Pressure O2 71.2 L 83.0-108.0 mmHg Arterial Blood HCO3 21.4 21.0-28.0 mmol/L Arterial Blood Oxygen Saturation 94.0 94.0-98.0 % Arterial Blood Base Excess -3.4 L -2.0-3.0 mmol/L Blood Gas Temperature 37.0 35.5-37.0 CELSIUS Blood Gas Vent Mode RA ROOM AIR FiO2 21.0 % Blood Gas Specimen Comment JACK,REBECCA Whole Blood Glucose 87 70-110 MG/DL White Blood Count 8.5 4.8-10.8 K/uL Red Blood Count 2.78 L 4.00-5.50 MIL/uL Hemoglobin 7.6 L 12.0-16.0 g/dL Hematocrit 23.6 L 36-48 % Mean Corpuscular Volume 84.9 79-99 fL Mean Corpuscular Hemoglobin 27.3 27.0-33.0 pg Mean Corpuscular Hemoglobin Concent 32.2 32.0-36.0 g/dL Red Cell Distribution Width 27.4 H 11.0-15.5 % Platelet Count 27 L 130-400 K/uL Mean Platelet Volume 10.3 7.5-10.5 fL Immature Granulocyte % (Auto) 0.9 0-1 % Neutrophils (%) (Auto) 79.2 H 40.0-77.0 % Lymphocytes (%) (Auto) 8.4 L 21.0-51.0 % Monocytes (%) (Auto) 9.6 3.0-13.0 % Eosinophils (%) (Auto) 1.8 0.0-8.0 % Basophils (%) (Auto) 0.1 0.0-5.0 % Neutrophils # (Auto) 6.7 1.8-7.7 K/uL Lymphocytes # (Auto) 0.7 L 1.0-4.8 K/uL Monocytes # (Auto) 0.8 0.1-1.0 K/uL Eosinophils # (Auto) 0.15 0.00-0.70 K/uL Basophils # (Auto) 0.01 0.00-0.20 K/uL Absolute Immature Granulocyte (auto 0.08 0-1 K/uL Nucleated Red Blood Cells 0.0 0.0-0.19 % Sodium Level 132 L 136-145 mmol/L Potassium Level 5.1 3.5-5.1 mmol/L Chloride Level 104 101-111 mmol/L Carbon Dioxide Level 24 21-32 mmol/L Blood Urea Nitrogen 63 H 7-18 mg/dL Creatinine 3.2 H 0.5-1.0 mg/dL Glomerular Filtration Rate Calc 16 >90 mL/min Random Glucose 93 70-105 mg/dL Total Calcium 8.4 L 8.5-10.1 mg/dL Phosphorus Level 5.9 H 2.5-4.9 mg/dL Total Bilirubin 2.8 H 0.2-1.0 mg/dL Aspartate Amino Transf (AST/SGOT) 212 H 10-37 U/L Alanine Aminotransferase (ALT/SGPT) 167 H 12-78 U/L Alkaline Phosphatase 578 H 50-136 U/L Total Creatine Kinase 579 *H 21-232 U/L Troponin I High Sensitivity 27.6 4-50 ng/L B-Type Natriuretic Peptide 135 H 0-100 pg/mL Total Protein 7.2 6.0-8.3 g/dL Albumin 1.7 L 3.5-5.0 g/dL Test 05/13/25 22:16 05/13/25 04:18 Range/Units Urine Color YELLOW YELLOW Urine Appearance CLOUDY H CLEAR Urine pH 5.5 5.0-8.0 Urine Specific [place] 1.014 1.001-1.031 Urine Protein 100 H NEGATIVE mg/dL Urine Glucose (UA) TRACE H NEGATIVE mg/dL Urine Ketones NEGATIVE NEGATIVE mg/dL Urine Occult Blood LARGE H NEGATIVE Urine Nitrate NEGATIVE NEGATIVE Urine Bilirubin NEGATIVE NEGATIVE mg/dL Urine Urobilinogen 0.2 0.2-1.0 mg/dL Urine Leukocyte Esterase 25 H NEGATIVE Que/uL Urine RBC TNTC H 0-1 /HPF Urine WBC 26-50 H 0-1 /HPF Urine WBC Clumps (Auto) FEW 0-1 /HPF Urine Bacteria RARE None Seen /HPF Urine Granular Casts (Auto) >100 H None Seen /LPF Urine Yeast FEW None Seen /HPF Urine Random Creatinine 56.37 30-135 mg/dL Prothrombin Time 16.9 H 9.6-11.6 SEC Prothromb Time International Ratio 1.68 H 0.85-1.15 Activated Partial Thromboplast Time 45.8 H 26.3-35.5 SEC Current Medications Medications (Trade) Dose Ordered Sig/Roberth Route PRN Reason Start Time Stop Time Status Last Admin Dose Admin Acetaminophen (TYLenol 325MG TAB) 650 mg Q4H PRN PO MILD PAIN (1-3) 04/22/25 20:00 05/22/25 19:59 05/11/25 21:31 650 MG Acetaminophen (TYLenol 325MG TAB) 650 mg Q6H PRN PO TEMPERATURE GREATER THAN 101.5 04/22/25 20:00 05/22/25 19:59 04/23/25 10:02 650 MG Acetaminophen/ Hydrocodone Bitart (NORco 5/325MG) 1 tab Q4H PRN PO MODERATE PAIN (4-6) 04/30/25 12:00 05/05/25 11:59 DC 04/30/25 22:07 1 TAB Albumin Human 100 ml @ 0 mls/hr AD IV 05/13/25 16:00 05/14/25 15:59 Atorvastatin Calcium (LIPItor 20MG) 20 mg HS PO 04/24/25 21:00 05/13/25 15:42 DC 05/12/25 20:57 20 MG Ceftaroline Fosamil 400 mg/ Sodium Chloride 250 ml @ 250 mls/hr Q12H IV 05/09/25 17:00 05/19/25 16:59 05/14/25 05:22 250 MLS/HR Ceftriaxone Sodium 1 gm/ Sodium Chloride 50 ml @ 100 mls/hr BID IV 04/22/25 21:00 04/22/25 19:59 DC Ceftriaxone Sodium (ROCEphine 1G INJ) 1 gm BID IVPB 04/22/25 21:00 04/22/25 20:44 DC Ceftriaxone Sodium (ROCEphine 1G INJ) 1 gm BID IVPB 04/23/25 09:00 04/25/25 12:36 DC 04/25/25 09:44 1 GM Daptomycin 1000 mg/Sodium Chloride 100 ml @ 200 mls/hr Q24H IV 05/09/25 15:00 05/12/25 17:41 DC 05/11/25 16:20 200 MLS/HR Daptomycin 1000 mg/Sodium Chloride 100 ml @ 200 mls/hr Q24H IV 05/12/25 18:00 05/22/25 17:59 05/13/25 18:08 200 MLS/HR Dexamethasone Sodium Phosphate (dexaMETHasone 4MG/ML 1ML VIAL) 20 mg ONCALL IV 05/01/25 15:30 05/03/25 15:31 DC 05/02/25 15:41 20 MG Dexamethasone Sodium Phosphate (dexaMETHasone 4MG/ML 1ML VIAL) 20 mg ONCALL IV 05/03/25 17:15 05/03/25 17:16 DC 05/03/25 17:23 20 MG Dexamethasone Sodium Phosphate (dexaMETHasone 4MG/ML 1ML VIAL) 20 mg ONCE PRN IV PRE-MED 05/01/25 15:00 05/01/25 15:05 DC Dexmedetomidine/ Sodium Chloride (PRECEdex 200MCG/ 50ML-NS) 200 mcg PROTOCOL IV 04/26/25 12:00 04/26/25 14:54 DC Dexmedetomidine/ Sodium Chloride (PRECEdex 400MCG/ 100ML-NS) 400 mcg PROTOCOL PRN IV ANXIETY/AGITATION 04/26/25 19:30 05/01/25 12:45 DC 04/27/25 23:31 400 MCG Dexmedetomidine/ Sodium Chloride (PRECEdex 400MCG/ 100ML-NS) 400 mcg PROTOCOL STAT IV 04/26/25 14:53 04/26/25 14:58 DC 04/26/25 15:18 400 MCG Dextrose 1,000 ml @ 75 mls/hr [id number] IV 04/26/25 12:00 04/30/25 09:36 DC 04/29/25 04:27 150 MLS/HR Dextrose (D50w) 50 ml AD PRN IV HYPOGLYCEMIA PROTOCOL 04/22/25 20:00 05/22/25 19:59 Diphenhydramine HCl (BENAdryl INJ) 25 mg ONCALL IVP 05/01/25 15:30 05/03/25 15:31 DC 05/02/25 15:41 25 MG Diphenhydramine HCl (BENAdryl INJ) 25 mg ONCALL IVP 05/03/25 17:15 05/03/25 17:16 DC 05/03/25 17:22 25 MG Diphenhydramine HCl (BENAdryl INJ) 25 mg ONCE PRN IVP PRE-MED 05/01/25 15:00 05/01/25 15:06 DC Famotidine (Pepcid 20mg Tab) 20 mg DAILY PO 04/23/25 09:00 04/24/25 09:48 DC 04/23/25 09:33 20 MG Gabapentin (NEURontin 300 MG CAP) 300 mg BID PO 04/24/25 21:00 04/28/25 09:10 DC 04/25/25 21:51 300 MG Gentamicin Sulfate/Sodium Chloride 100 ml @ 200 mls/hr Q12H IV 05/09/25 02:00 05/09/25 13:30 DC 05/09/25 01:36 200 MLS/HR Gentamicin Sulfate/Sodium Chloride 100 ml @ 200 mls/hr Q24H IV 05/03/25 14:00 05/08/25 21:01 DC 05/08/25 14:18 200 MLS/HR Glucagon (Glucagon 1mg Kit) 1 mg AD PRN IM HYPOGLYCEMIA PROTOCOL 04/22/25 20:00 05/22/25 19:59 Heparin Sodium (Porcine) (HEParin 5,000 UNIT VIAL) 5,000 unit Q8H SQ 04/25/25 09:00 04/25/25 08:40 DC Hydromorphone HCl (DiLAUDid 0.5MG INJ) 0.5 mg BIDPRN PRN IVP SEVERE PAIN (7-10) 04/25/25 19:00 04/30/25 11:59 DC 04/29/25 23:31 0.5 MG Hydromorphone HCl (DiLAUDid 0.5MG INJ) 0.5 mg Q6H PRN IVP SEVERE PAIN (7-10) 04/23/25 14:00 04/25/25 08:25 DE 04/25/25 04:14 0.5 MG Hydromorphone HCl (DiLAUDid 1MG INJ) 1 mg TID PRN IVP SEVERE PAIN (7-10) 05/01/25 19:00 05/05/25 12:59 DC Hydromorphone HCl (DiLAUDid 1MG INJ) 1 mg TIDP PRN IVP SEVERE PAIN (7-10) 04/30/25 13:00 05/01/25 18:46 DC 04/30/25 20:44 1 MG Immune Globulin 400 ml @ 0 mls/hr Q24H IV 05/01/25 14:00 05/02/25 12:38 DC 05/01/25 16:18 37.5 MLS/HR Immune Globulin 400 ml @ 0 mls/hr Q24H IV 05/02/25 16:00 05/03/25 16:01 DC 05/02/25 16:46 37.5 MLS/HR Immune Globulin 400 ml @ 0 mls/hr Q24H IV 05/03/25 17:15 05/03/25 17:16 DC 05/03/25 17:57 37.5 MLS/HR Insulin Glargine (LANtus 100 UNITS/ML 10 ML VIAL) 10 units HS SQ 04/24/25 21:00 04/24/25 16:57 DC Insulin Glargine (LANtus 100 UNITS/ML 10 ML VIAL) 10 units ONCE STAT SQ 04/24/25 10:54 04/24/25 11:00 DC 04/24/25 11:19 10 UNITS Insulin Glargine (LANtus 100 UNITS/ML 10 ML VIAL) 15 units HS SQ 04/24/25 21:00 04/24/25 17:06 DC Insulin Glargine (LANtus 100 UNITS/ML 10 ML VIAL) 30 units DAILY SQ 05/05/25 09:00 05/07/25 23:47 DC 05/07/25 08:12 30 UNITS Insulin Glargine (LANtus 100 UNITS/ML 10 ML VIAL) 30 units DAILY SQ 05/13/25 09:00 06/12/25 08:59 Insulin Glargine (LANtus 100 UNITS/ML 10 ML VIAL) 30 units ONCE SQ 04/24/25 17:00 04/25/25 06:19 DC 04/24/25 18:16 30 UNITS Insulin Glargine (LANtus 100 UNITS/ML 10 ML VIAL) 40 units DAILY SQ 05/08/25 09:00 05/13/25 06:31 DC 05/12/25 09:15 40 UNITS Insulin Glargine (LANtus 100 UNITS/ML 10 ML VIAL) 40 units DAILY SQ 04/29/25 09:00 04/30/25 07:31 DC Insulin Glargine (LANtus 100 UNITS/ML 10 ML VIAL) 50 units DAILY SQ 04/26/25 09:00 04/29/25 06:49 DC 04/28/25 08:46 50 UNITS Insulin Glargine (LANtus 100 UNITS/ML 10 ML VIAL) 50 units DAILY SQ 04/30/25 09:00 05/05/25 07:21 DC 05/04/25 09:30 50 UNITS Insulin Human Regular (humuLIN R 100 UNIT/ML 3ML) 5 unit TIDAC SQ 04/24/25 17:00 04/24/25 17:06 DC Insulin Human Regular (humuLIN R 100 UNIT/ML 3ML) 8 unit TIDAC SQ 04/28/25 07:30 04/30/25 07:31 DC 04/30/25 06:15 8 UNIT Insulin Human Regular (humuLIN R 100 UNIT/ML 3ML) 10 unit TIDAC SQ 05/06/25 07:30 05/07/25 23:47 DC 05/07/25 16:06 10 UNIT Insulin Human Regular (humuLIN R 100 UNIT/ML 3ML) 10 unit TIDAC SQ 05/10/25 11:30 06/09/25 11:29 05/11/25 12:10 10 UNIT Insulin Human Regular (humuLIN R 100 UNIT/ML 3ML) 10 unit TIDAC SQ 04/24/25 17:00 04/25/25 06:17 DC 04/25/25 06:15 10 UNIT Insulin Human Regular (humuLIN R 100 UNIT/ML 3ML) 12 unit TIDAC SQ 05/05/25 07:30 05/05/25 22:51 DC Insulin Human Regular (humuLIN R 100 UNIT/ML 3ML) 12 unit TIDAC SQ 04/30/25 07:30 05/02/25 08:05 DC 05/02/25 06:45 12 UNIT Insulin Human Regular (humuLIN R 100 UNIT/ML 3ML) 15 unit TIDAC SQ 05/02/25 11:30 05/05/25 07:21 DC 05/04/25 17:33 15 UNIT Insulin Human Regular (humuLIN R 100 UNIT/ML 3ML) 15 unit TIDAC SQ 05/08/25 07:30 05/09/25 06:24 DC 05/08/25 17:16 15 UNIT Insulin Human Regular (humuLIN R 100 UNIT/ML 3ML) 15 unit TIDAC SQ 04/26/25 11:30 04/27/25 20:30 DC Insulin Human Regular (humuLIN R 100 UNIT/ML 3ML) 18 unit TIDAC SQ 05/09/25 07:30 05/10/25 09:56 DC 05/09/25 06:49 18 UNIT Insulin Human Regular (humuLIN R 100 UNIT/ML 3ML) 25 unit TIDAC SQ 04/25/25 07:30 04/26/25 07:58 DC 04/25/25 17:39 25 UNIT Insulin Human Regular (humuLIN R 100 UNIT/ML 3ML) INSULIN SLIDING SCAL... ACHS SQ 04/22/25 21:00 04/24/25 16:16 DC 04/24/25 11:18 8 UNIT Insulin Human Regular (humuLIN R 100 UNIT/ML 3ML) INSULIN SLIDING SCAL... ACHS SQ 05/05/25 07:30 06/04/25 07:29 05/12/25 20:58 4 UNIT Insulin Human Regular (humuLIN R 100 UNIT/ML 3ML) INSULIN SLIDING SCAL... ACHS SQ 04/24/25 16:30 04/25/25 14:09 DC 04/25/25 11:57 16 UNIT Insulin Human Regular (humuLIN R 100 UNIT/ML 3ML) INSULIN SLIDING SCAL... ACHS SQ 04/25/25 16:30 05/04/25 23:42 DC 05/04/25 20:49 6 UNIT Insulin Human Regular (humuLIN R 100 UNIT/ML 3ML) INSULIN SLIDING SCAL... Q4H SQ 04/27/25 20:30 04/28/25 09:11 DC 04/28/25 06:00 4 UNIT Lactated Ringer's 1,000 ml @ 100 mls/hr Q10H IV 04/22/25 20:00 04/23/25 10:09 DC 04/23/25 06:00 100 MLS/HR Lactulose (Constulose 20gm/ 30ml Udcup) 30 gm TID PO 04/25/25 11:00 04/30/25 09:45 DC 04/30/25 09:16 30 GM Levothyroxine Sodium (SYNTHroid 125MCG TAB) 125 mcg DAILY@0630 PO 04/25/25 06:30 05/25/25 06:29 05/14/25 06:41 125 MCG Lidocaine (Lidoderm Patch 5%) 1 patch Q24H TP 05/12/25 05:00 06/11/25 04:59 Lisinopril (Prinivil 10mg) 10 mg DAILY PO 05/02/25 09:00 05/13/25 08:46 DC 05/12/25 09:13 10 MG Magnesium Sulfate 50 ml @ 0 mls/hr PROTOCOL PRN IV OTHER [SEE ORDER COMMENTS] 04/22/25 20:00 05/22/25 19:59 Methylprednisolone Sodium Succinate (Solu-medROL 125MG) 125 mg Q6H IVP 04/23/25 08:00 04/28/25 09:10 DC 04/25/25 09:45 125 MG Metoprolol Succinate (TopROL XL) 50 mg AM PO 04/25/25 09:00 05/25/25 08:59 05/13/25 08:48 50 MG Nystatin (NystOP 15 GM POWDER) apply abdominal fold/perineum BID TP 05/09/25 21:00 06/08/25 20:59 05/14/25 08:07 1 APPL Ondansetron HCl (zoFRAN 4MG INJ) 4 mg Q6H PRN IV NAUSEA/VOMITING 04/22/25 20:00 05/22/25 19:59 04/22/25 20:10 4 MG Pantoprazole Sodium (PROTonix 40MG INJ) 40 mg DAILY IVP 04/24/25 10:00 05/11/25 08:11 DC 05/10/25 09:09 40 MG Pantoprazole Sodium (PROTonix 40MG TAB) 40 mg DAILY PO 05/11/25 09:00 06/10/25 08:59 05/14/25 08:06 40 MG Pharmacy Profile Note (Pharmacy Communication) 1 each ONCE MISC 05/01/25 08:00 04/30/25 16:52 DC Pharmacy Profile Note (Pharmacy Communication) 1 each ONCE MISC 05/03/25 12:00 05/03/25 12:58 DC Pharmacy Profile Note (Pharmacy Communication) 1 each ONCE MISC 05/09/25 13:00 05/09/25 13:42 DC Potassium Chloride 100 ml @ 100 mls/hr AD PRN IV POTASSIUM PROTOCOL 04/22/25 20:00 05/22/25 19:59 Potassium Chloride (K-Dur/Klor-Con 20meq) 20 meq AD PRN PO POTASSIUM PROTOCOL 04/22/25 20:00 05/22/25 19:59 05/03/25 13:10 20 MEQ Potassium Chloride (KCl 10% Elixir 20meq/15ml) 20 meq AD PRN PO POTASSIUM PROTOCOL 04/22/25 20:00 05/22/25 19:59 Pramipexole Dihydrochloride (miraPEX 0.25MG TAB) 0.5 mg HS PO 04/24/25 21:00 05/24/25 20:59 05/13/25 21:47 0.5 MG Pregabalin (LYRica 25MG) 25 mg BID PO 05/01/25 21:00 05/05/25 07:22 DC 05/04/25 09:22 25 MG Pregabalin ([id number]) 75 mg BID PO 04/24/25 21:00 04/24/25 14:49 DC Sodium Chloride 500 ml @ 0 mls/hr Q0M IV 04/25/25 11:00 05/25/25 10:59 Sodium Zirconium Cyclosilicate (Lokelma 10gm Powder) 10 gm TID PO 04/23/25 21:00 04/23/25 14:11 DC Tramadol HCl (UltRAM) 50 mg Q6H PRN PO MODERATE PAIN (4-6) 05/11/25 22:00 05/16/25 21:59 05/12/25 22:31 50 MG Tramadol HCl (UltRAM) 50 mg Q6H PRN PO MODERATE PAIN (4-6) 04/24/25 22:30 04/29/25 22:29 DC 04/28/25 13:55 50 MG Trimethoprim/ Sulfamethoxazole (BactRIM DS) 1 tab BID PO 04/25/25 21:00 04/26/25 14:50 DC 04/25/25 21:51 1 TAB Vancomycin HCl 250 ml @ 125 mls/hr Q12H IV 04/24/25 23:00 04/25/25 12:36 DC 04/25/25 11:43 125 MLS/HR Vancomycin HCl 250 ml @ 125 mls/hr Q12H IV 04/26/25 15:30 04/28/25 03:13 DC 04/27/25 15:22 125 MLS/HR Vancomycin HCl 250 ml @ 125 mls/hr Q12H IV 04/28/25 15:30 04/28/25 18:53 DC Vancomycin HCl 250 ml @ 125 mls/hr Q12H IV 04/28/25 20:00 05/02/25 20:34 DC 05/02/25 10:21 125 MLS/HR Vancomycin HCl 250 ml @ 125 mls/hr Q12H9 IV 05/04/25 21:00 05/08/25 20:49 DC 05/08/25 08:48 125 MLS/HR Vancomycin HCl (Vancomycin 750mg) 750 mg Q12H IVPB 05/08/25 21:00 05/09/25 13:30 DC 05/09/25 09:45 750 MG Vancomycin HCl (Vancomycin Protocol) 1 each AD IV 04/24/25 10:30 04/25/25 12:36 DC Vancomycin HCl (Vancomycin Protocol) 1 each AD IV 04/26/25 15:00 05/09/25 13:30 DC Venlafaxine HCl (EffEXOR XR 37.5mg CAP) 37.5 mg DAILY PO 04/24/25 16:00 05/05/25 11:18 DC 05/04/25 09:21 37.5 MG Venlafaxine HCl (EffEXOR XR 37.5mg CAP) 37.5 mg DAILY PO 04/25/25 09:00 04/24/25 14:50 DC Venlafaxine HCl (EffEXOR XR 37.5mg CAP) 37.5 mg HS PO 05/05/25 21:00 06/04/25 20:59 05/13/25 21:47 37.5 MG DIAGNOSTICS / RADIOLOGY: RUN DATE: 05/14/25 [facility] [address] RUN TIME: [id number] [id number], [place] [address] Department of Laboratories [facility] # [id number] Medical Anthropology Director: Licha Ronquillo DO Specimen Report PATIENT: GRICELDA CATALANLINDA ACCT: [id number] LOC: [facility] U: [id number] AGE/SX: 54/F ROOM: 314 RE04/22/[address]: CORY PIMENTEL MD : 1970 BED: 1 DIS: STATUS: ADM IN TLOC: SPEC: [id number] EVERARDO: 05/13/25 STATUS: COMP REQ: [id number] RECD: 05/13/25-050 [facility] [address]: YOLANDA CHOW MD SOURCE: BLOOD ENTR: 05/12/25-1558 [facility] DR: EDNA SOARES MD [facility]: CARLENE CAMARILLO MD,GALINDO JOLLY,ELKIN SANCHEZ,QASIM PIMENTEL,CORY SANDERSON,SANNA STEIN,GABE VANG,PARAG VAIL,QASIM LORENZO,DANIEL FAY,JOVI TRINH ORDERED: BLOOD CULTURE COMMENTS: What is the Source? BLOOD Procedure Result Mini Date-Time BLOOD CULT Final 05/14/25-0943 GRAM STAIN: GRAM POSITIVE COCCI 2 OF 2 PEDI BLOOD CULTUR NOTIFIED NURSE REBECCA MARTINEZ AT 0940 ON 05/14/25 BY REY CULTURE REPORT: IDENTIFICATION AND SUSCEPTIBILITIES TO FOLLOW Sent to Reference Lab. 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 Suspected Endocarditis, RAMAN deferred due to bleeding risks; unable to rule out endocarditis Status post nephrostomy tube Renate intertrigo, resolved Infectious spondylodiscitis L2-L3 Sepsis, unable to determine POA Acute hypoxic hypercapnic respiratory failure, not POA, resolved AMS due to suspected steroid induced psychosis or hepatic encephalopathy, not POA, resolved Hyperammonemia due to cirrhosis, Suspected Intractable low back pain due to spinal stenosis POA Acute urinary tract infection due to MRSA POA Hypervolemic hyponatremia POA Chronic anemia POA Hyponatremia POA Acute kidney injury on renal insufficiency POA Hyperglycemia due to uncontrolled diabetes POA Hypocalcemia POA Cirrhotic liver with splenomegaly consistent with portal hypertension per CT POA Esophageal varices Renal parenchymal disease per CT POA Hypothyroidism POA Hyperlipidemia POA Hypertension POA Anxiety disorder POA Depression POA Restless leg syndrome POA Suspected obstructive sleep apnea untreated POA Morbid obesity POA PLAN: Persistent MRSA bacteremia, * Gram positive cocci positive as of 05/14/25 * The patient was transferred to ICU due to clinical deterioration * Consulted critical Care team * Currently receiving daptomycin (Day 6) and ceftaroline (Day 6) per Infectious Disease (ID) recommendations. * WBC tagged scan, awaiting the final reports * Maintain contact precautions for infection control * PICC line has been removed * Monitor for creatine kinase level * Repeat blood cultures per Infectious Disease protocol to monitor clearance of bacteremia. Osteomyelitis of L2-L3 POA * MRI showed: Intradiscal collection with extension into the epidural space and to the prevertebral space at the L2-L3 level, concerning for spondylodiscitis. (05/13/25) * Dr Sanchez has been consulted for further evaluation and management * MRI showed: Supraspinatus tendinosis with high-grade partial-thickness bursal sided tear at the myotendinous junction. Infraspinatus tendinosis with low- grade partial-thickness bursal sided tear at the footplate.Subscapularis tendinosis without high-grade tear.Mild acromioclavicular and glenohumeral osteoarthritis.Mild subacromial/subdeltoid bursitis.Findings which can be seen in the setting of adhesive capsulitis. (04/28/25) Acute kidney injury * Creatinine trending up from 1.2<1.5<1.8<1.9<2.6<3.2 * FENa <0.1 % * Started on Sevelamer 800 mg for hyperphosphatemia * Consulted nephrology * We will avoid nephrotoxic drugs including NSAID. Thrombocytopenia due to ITP * DIC panel workup showed D dimer 7068, Fibrinogen 102, APTT 43.3, PT 16.9 and INR 1.68. (05/11/25) * Vitamin K 10 mg has been given * As per Dr Lorenzo, trying to get her Promacta when available (medicine that raises the platelets) * V/Q scan unable to perform as she couldn't lie flat. * Platelets has been transfused * Continue to follow Hematology recommendations for ongoing management of thrombocytopenia. * Monitor platelet counts daily. * Monitor for bleeding or thrombotic complications. Altered Mental Status due to Hepatic Encephalopathy Suspected * Her ammonia level is less than 10 * Monitor ammonia levels, mental status, and signs of worsening encephalopathy. * Monitor neuro status and reassess mental status regularly with steroid adjustments. Intractable lower back pain, resolving * Per Dr. Sanchez, possible diagnosis of discitis and osteomyelitis at L2-L3 along with psoas inflammation. * Continue multimodal pain management: acetaminophen, topical agents * Pregabalin will be discontinued due to concern for possible medication-induced slurred speech. CT head showed no evidence of acute intracranial abnormalities. * Neuro checks q4 Cirrhosis with portal hypertension * IV albumin given every 8 hours, possible hepatorenal syndrome * LFT trending up with total bilirubin 2.8, AST 212, ALT 167 and ALT 578. * Ultrasound revealed increased echogenicity of the right kidney which may reflect renal parenchymal disease. * Fecal occult blood test positive * Liver functions improving * Monitor for decompensation: encephalopathy, ascites, variceal bleeding. * Consider beta sergio for variceal prophylaxis. * Monitor LFTs, INR, and ammonia * Her MELD- Na score is 24 points, 14-15% estimated 90 day mortality Acute UTI, resolved * Monitor for signs of urosepsis * Encourage hydration and bladder care Hyponatremia, resolved * Monitor serum Na closely; consider fluid restriction if dilutional. Renate intertrigo, resolved * Patient is improved significantly * The patient was given fluconazole 150 mg 1 dose today, gradually resolving Hyperglycemia (Uncontrolled Diabetes) * Lantus is 30 units daily as per endocrinology recommendations, and continue for regular insulin 10 units TIDAC before meals. * Blood glucose level is trending down to 106 * Monitor blood glucose QID * Educate on diet and insulin compliance; monitor for DKA if concern. * Correct electrolytes accordingly. Chronic anemia * H/o esophageal varices due to cirrhosis with portal hypertension * Per GI, hold off on EGD given no overt GI bleeding and stable hemoglobin * Monitor trends, H&H daily * Avoid transfusion unless symptomatic or Hgb <7. We will order morning labs. Further orders per hospitalization course. We will Closely monitor the patient ATTESTATION BY PHYSICIAN I have seen and examined the patient. I reviewed the documentation, medical decision making, and treatment plan as noted by the resident provider above. I agree with the findings and plan of care. Cory Pimentel MD [facility],YOLANDA PERSAUD May 14, 2025 15:01
--- NOTE | 2025-05-14 16:40 | NUR ---
Discharge Planning: Patient is pending acceptance at [facility]. Failed P2P. Plan is to re-submit to [employer] once Dr. Sanchez has cleared for discharge.
--- NOTE | 2025-05-14 16:46 | PN ---
INFECTIOUS DISEASE PROGRESS NOTE Date of Service: May 14, 2025 SUBJECTIVE: Patient was seen at bedside in room 314. During rounding today patient was lethargic and having some difficulty breathing. Renal function continues to decline, BUN is 63 and creatinine of 3.2. LFTs are worse this morning with the AST of 212 and ALT of 167. Will start albumin 25% every 12 hours x 3 days and transfer patient to the ICU if okay with the primary care team. No fever, the hemoglobin is low at 7.6. Dr. Sanchez to re-evaluate patient for possible epidural abscess. The preliminary results of the blood cultures collected yesterday is growing Gram-positive cocci. Continues on daptomycin and Teflaro. We will continues to follow patient's care. PHYSICAL EXAM EYES: Anicteric. Pupils equal and reactive. HENT: No oral thrush seen, moist Oral mucosa NECK: Supple, no JVD or thyromegaly. LUNGS: Good air entry. No rales, no rhonchi. CARDIOVASCULAR: S1, S2 regular. No murmur heard. ABDOMEN: Soft, non tender, bowel sounds present, no organomegaly. SKIN: No rashes, no swelling. LYMPHATICS: No peripheral lymphadenopathy MUSCULOSKELETAL: No joint swelling, erythema or tenderness. EXTREMITIES: No cyanosis or clubbing. Generalized weakness. BACK: No deformity, no pressure ulcer. Right nephrostomy tube. GENITOURINARY: No dysuria or hematuria, Nolasco catheter. Vital Sign (Last 12 Hours) 05/14/25 05/14/25 05/14/25 05/14/25 05:53 08:00 08:06 12:00 Temp 98.1 97.9 97.9 Pulse 85 84 99 Resp 17 19 19 B/P (MAP) 116/58 105/66 100/51 Pulse Ox 93 95 95 92 O2 Delivery Room Air Room Air Room Air* Room Air O2 Flow Rate 0 FiO2 21 05/14/25 14:40 Pulse 89 Resp 46 FiO2 30 Intake & Output (last 24hrs) 05/13/25 05/13/25 05/14/25 15:00 23:00 07:00 Intake Total 200 ml Output Total 150 ml Balance 50 ml LABS: Laboratory: Test 05/14/25 14:28 05/14/25 14:27 05/14/25 11:59 05/14/25 04:21 Range/Units Ammonia < 10 L 11-32 umol/L Blood Gas Specimen Type Arterial Arterial Blood pH 7.371 7.350-7.450 Arterial Blood Partial Pressure CO2 38 32-45 mmHg Arterial Blood Partial Pressure O2 71.2 L 83.0-108.0 mmHg Arterial Blood HCO3 21.4 21.0-28.0 mmol/L Arterial Blood Oxygen Saturation 94.0 94.0-98.0 % Arterial Blood Base Excess -3.4 L -2.0-3.0 mmol/L Blood Gas Temperature 37.0 35.5-37.0 CELSIUS Blood Gas Vent Mode RA ROOM AIR FiO2 21.0 % Blood Gas Specimen Comment RR,REBECCA Whole Blood Glucose 87 70-110 MG/DL White Blood Count 8.5 4.8-10.8 K/uL Red Blood Count 2.78 L 4.00-5.50 MIL/uL Hemoglobin 7.6 L 12.0-16.0 g/dL Hematocrit 23.6 L 36-48 % Mean Corpuscular Volume 84.9 79-99 fL Mean Corpuscular Hemoglobin 27.3 27.0-33.0 pg Mean Corpuscular Hemoglobin Concent 32.2 32.0-36.0 g/dL Red Cell Distribution Width 27.4 H 11.0-15.5 % Platelet Count 27 L 130-400 K/uL Mean Platelet Volume 10.3 7.5-10.5 fL Immature Granulocyte % (Auto) 0.9 0-1 % Neutrophils (%) (Auto) 79.2 H 40.0-77.0 % Lymphocytes (%) (Auto) 8.4 L 21.0-51.0 % Monocytes (%) (Auto) 9.6 3.0-13.0 % Eosinophils (%) (Auto) 1.8 0.0-8.0 % Basophils (%) (Auto) 0.1 0.0-5.0 % Neutrophils # (Auto) 6.7 1.8-7.7 K/uL Lymphocytes # (Auto) 0.7 L 1.0-4.8 K/uL Monocytes # (Auto) 0.8 0.1-1.0 K/uL Eosinophils # (Auto) 0.15 0.00-0.70 K/uL Basophils # (Auto) 0.01 0.00-0.20 K/uL Absolute Immature Granulocyte (auto 0.08 0-1 K/uL Nucleated Red Blood Cells 0.0 0.0-0.19 % Sodium Level 132 L 136-145 mmol/L Potassium Level 5.1 3.5-5.1 mmol/L Chloride Level 104 101-111 mmol/L Carbon Dioxide Level 24 21-32 mmol/L Blood Urea Nitrogen 63 H 7-18 mg/dL Creatinine 3.2 H 0.5-1.0 mg/dL Glomerular Filtration Rate Calc 16 >90 mL/min Random Glucose 93 70-105 mg/dL Total Calcium 8.4 L 8.5-10.1 mg/dL Phosphorus Level 5.9 H 2.5-4.9 mg/dL Total Bilirubin 2.8 H 0.2-1.0 mg/dL Aspartate Amino Transf (AST/SGOT) 212 H 10-37 U/L Alanine Aminotransferase (ALT/SGPT) 167 H 12-78 U/L Alkaline Phosphatase 578 H 50-136 U/L Total Creatine Kinase 579 *H 21-232 U/L Troponin I High Sensitivity 27.6 4-50 ng/L B-Type Natriuretic Peptide 135 H 0-100 pg/mL Total Protein 7.2 6.0-8.3 g/dL Albumin 1.7 L 3.5-5.0 g/dL Test 05/13/25 22:16 05/13/25 04:18 Range/Units Urine Color YELLOW YELLOW Urine Appearance CLOUDY H CLEAR Urine pH 5.5 5.0-8.0 Urine Specific Frostproof 1.014 1.001-1.031 Urine Protein 100 H NEGATIVE mg/dL Urine Glucose (UA) TRACE H NEGATIVE mg/dL Urine Ketones NEGATIVE NEGATIVE mg/dL Urine Occult Blood LARGE H NEGATIVE Urine Nitrate NEGATIVE NEGATIVE Urine Bilirubin NEGATIVE NEGATIVE mg/dL Urine Urobilinogen 0.2 0.2-1.0 mg/dL Urine Leukocyte Esterase 25 H NEGATIVE Que/uL Urine RBC TNTC H 0-1 /HPF Urine WBC 26-50 H 0-1 /HPF Urine WBC Clumps (Auto) FEW 0-1 /HPF Urine Bacteria RARE None Seen /HPF Urine Granular Casts (Auto) >100 H None Seen /LPF Urine Yeast FEW None Seen /HPF Urine Random Creatinine 56.37 30-135 mg/dL Prothrombin Time 16.9 H 9.6-11.6 SEC Prothromb Time International Ratio 1.68 H 0.85-1.15 Activated Partial Thromboplast Time 45.8 H 26.3-35.5 SEC ASSESSMENT: Persistent Methicillin-resistant Staphylococcus aureus bacteremia. Epidural abscess. Urinary tract infection with methicillin-resistant Staphylococcus aureus. L2 and L3 osteomyelitis. Right Hydronephrosis, s/p right nephrostomy tube placement on 04/29/2025. Non-ketotic hyperglycemia. Urinary retention requiring Nolasco catheter placement. Morbid obesity. Thrombocytopenia requiring platelet transfusion.. Diabetes mellitus. Debility. PLAN: Transferred to ICU if okay with primary care team. Start Albumin 25% IV every 12 hours x3 days. Continue daptomycin IV Continue Teflaro IV. Neurosurgeon has been reconsulted and will re-evaluate patient. Continue GI prophylaxis. Continue pain management. Continue antidiabetic. Patient will need 6 weeks of IV antibiotics. Continue physical therapy. This case was reviewed and discussed with my supervising physician and the above assessment and plan was formulated and agreed upon. ATTESTATION BY PHYSICIAN I have seen and examined the patient. I reviewed the documentation, medical decision making, and treatment plan as noted by the mid-level provider above. I agree with the findings and plan of care. EDNA SOARES MD, MIRTA L [facility] May 14, 2025 16:46
[2025-05-14 18:27] LABS: NUCLEATED RED BLOOD CELLS 0.2 % (0.0-0.19); PLATELET COUNT (AUTO) 33.0 K/uL (130-400); RED BLOOD CELL COUNT(AUTO) 2.8 MIL/uL (4.00-5.50); RED CELL DISTRIBUTION WIDTH 28.1 % (11.0-15.5); WHITE BLOOD COUNT (AUTO) 9.7 K/uL (4.8-10.8)
[2025-05-14 18:45] LABS: CREATININE 4.0 mg/dL (0.5-1.0); GLOMERULAR FILTR. RATE CALC 13.0 mL/min (>90); GLUCOSE,RANDOM 87.0 mg/dL (70-105); SODIUM SERUM 133.0 mmol/L (136-145); UREA NITROGEN, BLOOD 71.0 mg/dL (7-18)
[2025-05-14 18:49] LABS: ASPARTATE AMINOTRANSFERASE 257.0 U/L (10-37); PHOSPHORUS 6.9 mg/dL (2.5-4.9); TOTAL PROTEIN, SERUM 7.4 g/dL (6.0-8.3)
--- NOTE | 2025-05-14 19:07 | CONS ---
HISTORY OF PRESENT ILLNESS: The patient is a 54-year-old female patient who has been admitted with sepsis. I am being consulted due to the findings in the MRI. She was seen on priorly again because of the findings in the MRI revealing some possible diskitis with some epidural extension. At that time, the patient was examined. She was clinically fairly stable and required a tube nephrostomy as she was not producing any urine and she required tube nephrostomy. She has continued with declining health as continued with the sepsis or better say with the bacteremia. She has no fever. White blood cell counts are less than 10,000, platelet count 27,000 and they have been low since admission since she has a history of liver cirrhosis. D-dimer has been also positive. Her sodium has been in the 130s and potassium 5.1. There has been an increase in the creatinine and BUN. PHYSICAL EXAMINATION: Actually, she was transferred from the regular floor to the ICU. Although, awake, following commands, she was somewhat with some respiratory effort. She is an obese lady. There might be some crackles upon auscultation. No abdominal tenderness and she is moving her lower extremities. IMAGING STUDIES: The chest x-ray was evaluated. There might be some increase in the pulmonary vascularity if not interstitial marking due to overload. The MRI was reviewed again. There has been no increase in the findings of the possible spondylodiskitis and a small epidural phlegmon. ASSESSMENT AND PLAN: The patient was addressed with the staff nurse present as well as the , ____ family members. They were explained the critical condition of her loved ones and certainly drainage of ____ is an option, although there has been no increase, but she needs to be medically optimized before considering taking her to the OR. I discussed the case with the critical nurse practitioner for aggressive medical management and optimization. TID: [id number] RECEIPT: [id number]
--- NOTE | 2025-05-14 19:28 | PN ---
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 Intractable low back pain due to spinal stenosis, POA Moderate right hydronephrosis US 04/24/25 w/ urinary bladder retention S/P FC S/P Right nephrostomy tube on 04/30/2025 Hyperammonemia due to cirrhosis 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, POA S/P IGG infusions on 04/30/2025 Acute urinary tract infection due to complicated cystitis 2/2 MRSA POA Hypervolemic hyponatremia, POA Chronic anemia, POA Hyponatremia, POA Acute kidney injury on renal insufficiency POA Hyperglycemia due to uncontrolled diabetes POA Hypocalcemia POA Cirrhotic liver with splenomegaly consistent with portal hypertension per CT POA Liver Lesion lesion that measures 1.3 x 1.1 x 1.7 cm in the right lobe on US Esophageal varices Renal parenchymal disease per CT, POA Hypothyroidism Hyperlipidemia Hypertension Anxiety disorder Depression Restless leg syndrome Suspected OHS Morbid obesity, BMI 47.5 INTERVAL HISTORY: Plan Lengthy discussion with patient, patient's and daughter all at bedside. Family is currently discussing code status. All new labs have been ordered, we are pending an ABG, procalcitonin, lactic acid. Fluid resuscitation, review of all imaging, echocardiogram, EKG and troponins are pending. Follow pending labs and imaging Tele, pulse oximetry, RT eval REVIEW OF SYSTEMS: Twelve point review of system reviewed with patient all permanent positives mentioned above otherwise negative PHYSICAL EXAM: GENERAL: Patient is awake alert and oriented x3. Cooperative and calm. HEENT: EOMI, Sclera non icteric, moist mucosa NECK: Supple, no JVD, trachea midline LUNGS: Clear breath sounds bilaterally. No wheezes HEART: Regular rate and rhythm. Normal S1 and S2, without murmurs ABD: Abdomen soft, nontender. Bowel sounds present EXT: No clubbing cyanosis or edema NEURO: AAOX3, follows commands Vital Signs (last 8hr) Date Time Temp Pulse Resp B/P (MAP) Pulse Ox O2 Delivery O2 Flow Rate FiO2 05/14/25 19:00 74 25 05/14/25 18:59 76 24 N/A Room Air 21 05/14/25 17:30 79 18 138/53 97 Room Air 05/14/25 17:15 82 18 108/75 99 Room Air 05/14/25 17:00 80 24 105/52 97 Room Air 05/14/25 16:45 86 15 108/48 94 Room Air 05/14/25 16:30 82 25 107/42 97 Room Air 05/14/25 16:15 83 22 101/50 94 Room Air 05/14/25 16:00 98.1 79 16 119/52 94 Room Air 05/14/25 15:45 83 22 104/47 94 Nasal Cannula 2.0 05/14/25 15:30 87 17 112/45 96 Nasal Cannula 2.0 05/14/25 15:15 83 24 123/43 98 Nasal Cannula 2.0 05/14/25 14:40 89 46 30 05/14/25 12:00 97.9 99 19 100/51 92 Room Air LABS: Hematology Labs: Test 05/14/25 18:19 05/14/25 04:21 Range/Units White Blood Count 9.7 4.8-10.8 K/uL Red Blood Count 2.80 L 4.00-5.50 MIL/uL Hemoglobin 7.6 L 12.0-16.0 g/dL Hematocrit 23.6 L 36-48 % Mean Corpuscular Volume 84.3 79-99 fL Mean Corpuscular Hemoglobin 27.1 27.0-33.0 pg Mean Corpuscular Hemoglobin Concent 32.2 32.0-36.0 g/dL Red Cell Distribution Width 28.1 H 11.0-15.5 % Platelet Count 33 L 130-400 K/uL Mean Platelet Volume 10.7 H 7.5-10.5 fL Nucleated Red Blood Cells 0.2 H 0.0-0.19 % Immature Granulocyte % (Auto) 0.9 0-1 % Neutrophils (%) (Auto) 79.2 H 40.0-77.0 % Lymphocytes (%) (Auto) 8.4 L 21.0-51.0 % Monocytes (%) (Auto) 9.6 3.0-13.0 % Eosinophils (%) (Auto) 1.8 0.0-8.0 % Basophils (%) (Auto) 0.1 0.0-5.0 % Neutrophils # (Auto) 6.7 1.8-7.7 K/uL Lymphocytes # (Auto) 0.7 L 1.0-4.8 K/uL Monocytes # (Auto) 0.8 0.1-1.0 K/uL Eosinophils # (Auto) 0.15 0.00-0.70 K/uL Basophils # (Auto) 0.01 0.00-0.20 K/uL Absolute Immature Granulocyte (auto 0.08 0-1 K/uL Chemistry Labs: Test 05/14/25 18:19 05/14/25 17:05 05/14/25 14:28 05/14/25 04:21 Range/Units Sodium Level 133 L 136-145 mmol/L Potassium Level 5.7 H 3.5-5.1 mmol/L Chloride Level 102 101-111 mmol/L Carbon Dioxide Level 22 21-32 mmol/L Blood Urea Nitrogen 71 H 7-18 mg/dL Creatinine 4.0 H 0.5-1.0 mg/dL Glomerular Filtration Rate Calc 13 >90 mL/min Random Glucose 87 70-105 mg/dL Lactic Acid Level 2.7 H 0.8-2.5 mmol/L Total Calcium 8.3 L 8.5-10.1 mg/dL Phosphorus Level 6.9 H 2.5-4.9 mg/dL Magnesium Level 2.00 1.80-2.40 mg/dL Total Bilirubin 3.2 H 0.2-1.0 mg/dL Aspartate Amino Transf (AST/SGOT) 257 H 10-37 U/L Alanine Aminotransferase (ALT/SGPT) 175 H 12-78 U/L Alkaline Phosphatase 590 H 50-136 U/L Troponin I High Sensitivity 28 4-50 ng/L B-Type Natriuretic Peptide 125 H 0-100 pg/mL Total Protein 7.4 6.0-8.3 g/dL Albumin 1.6 L 3.5-5.0 g/dL Whole Blood Glucose 82 70-110 MG/DL Ammonia < 10 L 11-32 umol/L Total Creatine Kinase 579 *H 21-232 U/L Coagulation Labs: Test 05/14/25 18:19 05/13/25 04:18 Range/Units D-Dimer Quantitative (PE/DVT) 6512 *H 0-500 ng/mL Prothrombin Time 16.9 H 9.6-11.6 SEC Prothromb Time International Ratio 1.68 H 0.85-1.15 Activated Partial Thromboplast Time 45.8 H 26.3-35.5 SEC DIAGNOSTICS / RADIOLOGY RESULTS: [ ] PLAN NEURO: Minimize central acting medications as possible. Fall Precautions. Well lighted room through the day and minimize interruptions through the night to prevent acute delirium. PULMONARY: Supplemental 02 as needed Titrate Fio2 to keep Spo2 > or = 90% DuoNebs and CPT as needed IS hourly while awake for pulmonary hygiene Out of bed to chair as tolerated VAP Bundle Vent/BIPAP Settings: [ ] Driving pressure: [ ] P Plat: [ ] Static C: [ ] Static R: [ ] P/F Ratio: [ ] CARDIOVASCULAR: Follow hemodynamics. Titrate vasopressor to keep MAP >65 or systolic blood pressure >95mmHg DIPS: None LINES: PIV GI & NUTRITION: Continue nutritional support Aspirations precautions Prokinetic agents and laxatives as needed KIDNEYS & ELECTROLYTES: Strict monitoring of intake and output Daily weights Avoid nephrotoxic agents Monitor electrolytes and replace as needed Goal urine output of 30mL/hr or 0.5mL/kg/hr Urine output: [ ] Fluid Balance: [ ] ENDOCRINE: Maintain blood glucose between 100-180 at all times. Insulin sliding scale for blood glucose management INFECTIOUS DISEASE: Trend temperature. [place]-culture if febrile. Micro: [ ] Urine culture-MRSA Blood culture-MRSA Antibiotics: Vancomycin HEMATOLOGY & COAGULATION: Monitor H&H. Keep Hgb > 7 Transfuse 1 unit of PRBC for Hgb < 7 Transfuse 1 pack of platelets of platelets < 20, 000 Watch for any signs and symptoms of bleeding SKIN: Pressure ulcer prevention per facility protocol Rehab: PT/OT Prophylaxis: GI: [ Protonix] DVT: SCDs for now no anticoagulation due to thrombocytopenia Code Status: Full Resuscitation Disposition: Medical-surgical Other: Total patient care time exceeds 35 minutes excluding all procedures. Case was discussed and seen with my supervising physician. The above plan was formulated and agreed upon. OSCAR DUGAN May 14, 2025 19:28
--- NOTE | 2025-05-14 19:43 | NUR ---
PATIENT IN USING ACCESSORY MUSCLES TO BREATH AND APPEARS TO BE WORKING HARD TO BREATH. PATIENT STATED EARLIER THAT SHE DID NOT WANT THE BIPAP OR NASAL CANULA TO [facility] NURSE [place] MERCHANT. I EDUCATED PATIENT ON HOW HYPOXIA CAN EVENTUALLY LEAD TO A CARDIAC ARREST. She stated that she was very anxious about putting on the BIPAP mask. She stated she would be willing to try the BIPAP if we give her something for her severe anxiety. Camilo Valenzuela NP showed up at the bedside and was informed of patients wishes. Provider ordered a Precedex drip, and 10 mg one time dose of prednisone iv push. Spoke to Bradly, he was informed of patients decision. Addendum: 05/14/25 at 2001 by RONNI RUCKRE RN RN Correction Prednisone is to be give PO 10 mg one time dose as per provider. Addendum: 05/14/25 at 2003 by RONNI RUCKER RN RN Patient is alert and oriented X 3.
[2025-05-14] MEDS ORDERED: dexmedeTOMIDine HCL 200mcg/2mL 400 MCG in 0.9%NACL 100ML 96 ML IV PRN (20:00)
[2025-05-14] MEDS: ALBUMIN HUMAN 25% 100 ML IV ONE (20:14)
--- NOTE | 2025-05-14 20:28 | NUR ---
Received a call from Dr Sanchez. Provider informed of patients condition. No orders received.
--- NOTE | 2025-05-14 20:46 | NUR ---
Patient drank 1 apple juice due to borderline low glucose levels.
--- NOTE | 2025-05-14 21:13 | NUR ---
PER NURSE RUDOLPH, PT CAN'T LAY FLAT FOR CT, EXAM PENDING.
[2025-05-14] MEDS: NOREPINEPHRIN 4MG/NS 250ML 250 ML IV ONE (23:15)
[2025-05-14] MEDS: NOREPINEPHRIN 4MG/NS 250ML 250 ML IV PRN (23:17)
[2025-05-15] VITALS (159 sets, daily range): BP systolic 87–170; BP diastolic 29–76; PULSE 55–101; RESP 12–33; TEMP 97.5–98.6; O2SAT 89–100
[2025-05-15] MEDS: CEFTAROLINE FOSAMIL ACETATE IV SCH (05:57)
[2025-05-15] MEDS: NACL 0.9% IV SCH (05:57)
[2025-05-15 06:18] LABS: NUCLEATED RED BLOOD CELLS 0.4 % (0.0-0.19); PLATELET COUNT (AUTO) 31.0 K/uL (130-400); RED BLOOD CELL COUNT(AUTO) 2.7 MIL/uL (4.00-5.50); RED CELL DISTRIBUTION WIDTH 28.4 % (11.0-15.5); WHITE BLOOD COUNT (AUTO) 9.5 K/uL (4.8-10.8)
[2025-05-15 06:36] LABS: ASPARTATE AMINOTRANSFERASE 275.0 U/L (10-37); CREATININE 4.4 mg/dL (0.5-1.0); GLOMERULAR FILTR. RATE CALC 11.0 mL/min (>90); GLUCOSE,RANDOM 137.0 mg/dL (70-105); SODIUM SERUM 131.0 mmol/L (136-145); TOTAL PROTEIN, SERUM 7.5 g/dL (6.0-8.3)
[2025-05-15 06:40] LABS: UREA NITROGEN, BLOOD 80.0 mg/dL (7-18)
[2025-05-15] MEDS ORDERED: CALCIUM GLUC 1GM/10ML VIAL IVPB ONE (07:00)
--- NOTE | 2025-05-15 07:00 | EKG ---
[facility] Test Date: 2025-05-14 Test Time: 18:00:24 Pat Name: LUCÍA GOODMAN Department: [facility] Room: 208 1 Gender: F Primary Education Professor: [id number] : 1970 Requested By: OSCAR DUGAN Order Number: [id number] Reading MD: Oscar Read Measurements Intervals [place] Rate: 80 P: 32 MS: 156 QRS: -18 QRSD: 106 T: 31 QT: 383 QTc: 442 Interpretive Statements Sinus rhythm Compared to ECG 04/23/2025 11:00:51 No significant changes Electronically Signed On 05-18-2025 23:43:26 CDT by Oscar Read Please click the below link to view image of tracing.
[2025-05-15] MEDS: ALBUTEROL 0.083% 2.5 MG/3 ML INH IH ONE (07:02)
[2025-05-15 07:20] LABS: ABG BASE EXCESS -7.7 mmol/L (-2.0-3.0); ABG HCO3 17.9 mmol/L (21.0-28.0); ABG OXYGEN SATURATION 97.7 % (94.0-98.0); ABG PCO2 37 mmHg (32-45); ABG PH 7.306 (7.350-7.450); CARBON MONOXIDE 1.6 % (0.5-1.5); DEVICE COMMENT LR LEO RN; PO2, ARTERIAL BG 111.7 mmHg (83.0-108.0); TEMPERATURE, CELSIUS BG 37.0 CELSIUS (35.5-37.0); VENT MODE, BG BIPAP 12 6 (ROOM AIR)
--- NOTE | 2025-05-15 07:22 | PN ---
endocrinology progress note Date of Service: May 15, 2025 subjective: glucose are improving and off steroid now. hba1c 9.2, home regimen: lantus 30 units daily and humalog 10 units tid before meals. patient glucose are improving. s/p right nephrostomy tube, thrombocytopenia, UTI and gram positive. Bacteremia. liver cirrhosis. PAST MEDICAL HISTORY: [undiagnosed obstructive sleep apnea, diabetes type 2, hypertension, hyperlipidemia, hypothyroidism, restless leg syndrome, anxiety disorder,depression, lupus and severe morbid obesity ] PAST SURGICAL HISTORY: [ Cholecystectomy, tubal ligation] PAST SOCIAL HISTORY: [ Patient lives with . Patient denies alcohol tobacco and recreational drug use] FAMILY HISTORY: [ Hypertension, diabetes, cardiovascular disease and Alzheimer's disease ] Coded Allergies: No Known Allergies (Unverified Allergy, Unknown, 08/26/14) ASSESSMENT: glucose are improving and off steroid now. glucose runs low normal, so hold premeal insulin. hba1c 9.2, home regimen: lantus 30 units daily and humalog 10 units tid before meals. Intractable low back pain POA L2/L3 OSTEOMYELITIS Acute thrombocytopenia POA s/p IVIG Acute urinary tract infection POA On antibiotics. Bacteremia, MRSA on antibiotics. right kidney hydronephrosis s/p right nephrostomy tube Chronic anemia POA Hyponatremia POA improved Acute kidney injury on renal insufficiency POA improving Hypocalcemia POA stable Cirrhotic liver with splenomegaly consistent with portal hypertension per CT POA Renal parenchymal disease per CT POA Hypothyroidism POA ON LEVOTHYROXINE Hyperlipidemia POA Hypertension POA Anxiety disorder POA Depression POA Restless leg syndrome POA Suspected obstructive sleep apnea untreated POA Morbid obesity POA PLAN: continue lantus 20 units daily hold regular insulin 10 units qac before meals continue medium dose ssi monitor glucose qx6 hourly continue levothyroxine 125 mcg daily. Vitals/Labs Vital Signs Date Time Temp Pulse Resp B/P (MAP) Pulse Ox O2 Delivery O2 Flow Rate FiO2 05/15/25 07:15 70 25 30 05/15/25 04:52 100/55 (70) 99 05/15/25 04:15 Bi-PAP+ 05/15/25 03:12 97.9 05/14/25 19:17 0 Laboratory Tests 05/14/25 18:19 05/15/25 06:02 Medications Current Medications Sodium Chloride 1,000 ml @ 0 mls/hr ONCE ONCE IV Last administered on 04/22/25at 17:27; Start 04/22/25 at 17:00; Stop 04/22/25 at 17:01; Status DC Ceftriaxone Sodium 1 gm ONCE ONCE IVPB Last administered on 04/22/25at 19:43; Start 04/22/25 at 19:00; Stop 04/22/25 at 19:01; Status DC Acetaminophen 650 mg Q6H PRN PO Last administered on 04/23/25at 10:02; Start 04/22/25 at 20:00; Stop 05/22/25 at 19:59 Acetaminophen 650 mg Q4H PRN PO Last administered on 05/11/25at 21:31; Start 04/22/25 at 20:00; Stop 05/22/25 at 19:59 Ondansetron HCl 4 mg Q6H PRN IV Last administered on 04/22/25at 20:10; Start 04/22/25 at 20:00; Stop 05/22/25 at 19:59 Famotidine 20 mg DAILY PO Last administered on 04/23/25at 09:33; Start 04/23/25 at 09:00; Stop 04/24/25 at 09:48; Status DC Ceftriaxone Sodium 1 gm/ Sodium Chloride 50 ml @ 100 mls/hr BID IV; Start 04/22/25 at 21:00; Stop 04/22/25 at 19:59; Status DC Lactated Ringer's 1,000 ml @ 100 mls/hr Q10H IV Last administered on 04/23/25at 06:00; Start 04/22/25 at 20:00; Stop 04/23/25 at 10:09; Status DC Insulin Human Regular INSULIN SLIDING SCAL... ACHS SQ Last administered on 04/24/25at 11:18; Start 04/22/25 at 21:00; Stop 04/24/25 at 16:16; Status DC Dextrose 50 ml AD PRN IV; Start 04/22/25 at 20:00; Stop 05/22/25 at 19:59 Glucagon 1 mg AD PRN IM; Start 04/22/25 at 20:00; Stop 05/22/25 at 19:59 Magnesium Sulfate 50 ml @ 0 mls/hr PROTOCOL PRN IV; Start 04/22/25 at 20:00; Stop 05/22/25 at 19:59 Potassium Chloride 100 ml @ 100 mls/hr AD PRN IV; Start 04/22/25 at 20:00; Stop 05/22/25 at 19:59 Potassium Chloride 20 meq AD PRN PO; Start 04/22/25 at 20:00; Stop 05/22/25 at 19:59 Potassium Chloride 20 meq AD PRN PO Last administered on 05/03/25at 13:10; Start 04/22/25 at 20:00; Stop 05/22/25 at 19:59 Ceftriaxone Sodium 1 gm BID IVPB; Start 04/22/25 at 21:00; Stop 04/22/25 at 20:44; Status DC Morphine Sulfate 4 mg ONCE ONCE IVP Last administered on 04/22/25at 20:11; Start 04/22/25 at 20:30; Stop 04/22/25 at 20:31; Status DC Lidocaine 1 each ONCE ONCE TP Last administered on 04/22/25at 21:14; Start 04/22/25 at 21:00; Stop 04/22/25 at 21:01; Status DC Ceftriaxone Sodium 1 gm BID IVPB Last administered on 04/25/25at 09:44; Start 04/23/25 at 09:00; Stop 04/25/25 at 12:36; Status DC Methylprednisolone Sodium Succinate 125 mg Q6H IVP Last administered on 04/25/25at 09:45; Start 04/23/25 at 08:00; Stop 04/28/25 at 09:10; Status DC Albuterol Sulfate 1.25 ONCE ONCE IH Last administered on 04/23/25at 09:40; Start 04/23/25 at 09:30; Stop 04/23/25 at 09:31; Status DC Calcium Gluconate 1 gm ONCE ONCE IV Last administered on 04/23/25at 10:55; Start 04/23/25 at 10:30; Stop 04/23/25 at 10:31; Status DC Sodium Chloride 50 ml @ 0 mls/hr ONCE ONCE IV Last administered on 04/23/25at 11:00; Start 04/23/25 at 11:00; Stop 04/23/25 at 11:01; Status DC Sodium Zirconium Cyclosilicate 10 gm ONCE ONCE PO Last administered on 04/23/25at 14:14; Start 04/23/25 at 14:00; Stop 04/23/25 at 16:08; Status DC Hydromorphone HCl 0.5 mg Q6H PRN IVP Last administered on 04/25/25at 04:14; Start 04/23/25 at 14:00; Stop 04/25/25 at 08:25; Status DC Sodium Zirconium Cyclosilicate 10 gm TID PO; Start 04/23/25 at 21:00; Stop 04/23/25 at 14:11; Status DC Pantoprazole Sodium 40 mg DAILY IVP Last administered on 05/10/25at 09:09; Start 04/24/25 at 10:00; Stop 05/11/25 at 08:11; Status DC Pregabalin 75 mg BID PO; Start 04/24/25 at 21:00; Stop 04/24/25 at 14:49; Status DC Vancomycin HCl 1 each AD IV; Start 04/24/25 at 10:30; Stop 04/25/25 at 12:36; Status DC Vancomycin HCl 500 ml @ 250 mls/hr ONCE ONCE IV Last administered on 04/24/25at 12:46; Start 04/24/25 at 11:00; Stop 04/24/25 at 12:59; Status DC Vancomycin HCl 250 ml @ 125 mls/hr Q12H IV Last administered on 04/25/25at 11:43; Start 04/24/25 at 23:00; Stop 04/25/25 at 12:36; Status DC Insulin Glargine 10 units HS SQ; Start 04/24/25 at 21:00; Stop 04/24/25 at 16:57; Status DC Insulin Glargine 10 units ONCE STAT SQ Last administered on 04/24/25at 11:19; Start 04/24/25 at 10:54; Stop 04/24/25 at 11:00; Status DC Atorvastatin Calcium 20 mg HS PO Last administered on 05/12/25at 20:57; Start 04/24/25 at 21:00; Stop 05/13/25 at 15:42; Status DC Gabapentin 300 mg BID PO Last administered on 04/25/25at 21:51; Start 04/24/25 at 21:00; Stop 04/28/25 at 09:10; Status DC Levothyroxine Sodium 125 mcg DAILY@0630 PO Last administered on 05/15/25at 05:57; Start 04/25/25 at 06:30; Stop 05/25/25 at 06:29 Metoprolol Succinate 50 mg AM PO Last administered on 05/13/25at 08:48; Start 04/25/25 at 09:00; Stop 05/25/25 at 08:59 Venlafaxine HCl 37.5 mg DAILY PO; Start 04/25/25 at 09:00; Stop 04/24/25 at 14:50; Status DC Pramipexole Dihydrochloride 0.5 mg HS PO Last administered on 05/14/25at 20:13; Start 04/24/25 at 21:00; Stop 05/24/25 at 20:59 Venlafaxine HCl 37.5 mg DAILY PO Last administered on 05/04/25at 09:21; Start 04/24/25 at 16:00; Stop 05/05/25 at 11:18; Status DC Insulin Human Regular INSULIN SLIDING SCAL... ACHS SQ Last administered on 04/25/25at 11:57; Start 04/24/25 at 16:30; Stop 04/25/25 at 14:09; Status DC Insulin Glargine 15 units HS SQ; Start 04/24/25 at 21:00; Stop 04/24/25 at 17:06; Status DC Insulin Human Regular 5 unit TIDAC SQ; Start 04/24/25 at 17:00; Stop 04/24/25 at 17:06; Status DC Insulin Glargine 30 units ONCE SQ Last administered on 04/24/25at 18:16; Start 04/24/25 at 17:00; Stop 04/25/25 at 06:19; Status DC Insulin Human Regular 10 unit TIDAC SQ Last administered on 04/25/25at 06:15; Start 04/24/25 at 17:00; Stop 04/25/25 at 06:17; Status DC Tramadol HCl 50 mg Q6H PRN PO Last administered on 04/28/25at 13:55; Start 04/24/25 at 22:30; Stop 04/29/25 at 22:29; Status DC Insulin Human Regular 25 unit TIDAC SQ Last administered on 04/25/25at 17:39; Start 04/25/25 at 07:30; Stop 04/26/25 at 07:58; Status DC Insulin Glargine 70 units ONCE ONCE SQ Last administered on 04/25/25at 06:27; Start 04/25/25 at 06:30; Stop 04/25/25 at 06:31; Status DC Hydromorphone HCl 0.5 mg BIDPRN PRN IVP Last administered on 04/29/25at 23:31; Start 04/25/25 at 19:00; Stop 04/30/25 at 11:59; Status DC Heparin Sodium (Porcine) 5,000 unit Q8H SQ; Start 04/25/25 at 09:00; Stop 04/25/25 at 08:40; Status DC Lactulose 30 gm TID PO Last administered on 04/30/25at 09:16; Start 04/25/25 at 11:00; Stop 04/30/25 at 09:45; Status DC Sodium Chloride 500 ml @ 0 mls/hr Q0M IV; Start 04/25/25 at 11:00; Stop 05/25/25 at 10:59 Trimethoprim/ Sulfamethoxazole 1 tab BID PO Last administered on 04/25/25at 21:51; Start 04/25/25 at 21:00; Stop 04/26/25 at 14:50; Status DC Insulin Human Regular INSULIN SLIDING SCAL... ACHS SQ Last administered on 05/04/25at 20:49; Start 04/25/25 at 16:30; Stop 05/04/25 at 23:42; Status DC Diazepam 10 mg ONCE ONCE IM; Start 04/25/25 at 15:00; Stop 04/25/25 at 15:01; Status DC Lactulose 200 gm ONCE ONCE SD Last administered on 04/25/25at 17:30; Start 04/25/25 at 16:30; Stop 04/25/25 at 16:31; Status DC Lorazepam 0.5 mg ONCE ONCE PO Last administered on 04/25/25at 19:07; Start 04/25/25 at 19:00; Stop 04/25/25 at 19:01; Status DC Haloperidol Lactate 1 mg ONCE ONCE IM Last administered on 04/26/25at 05:17; Start 04/26/25 at 05:00; Stop 04/26/25 at 05:02; Status DC Insulin Human Regular 15 unit TIDAC SQ; Start 04/26/25 at 11:30; Stop 04/27/25 at 20:30; Status DC Insulin Glargine 50 units DAILY SQ Last administered on 04/28/25at 08:46; Start 04/26/25 at 09:00; Stop 04/29/25 at 06:49; Status DC Dextrose 1,000 ml @ 75 mls/hr [id number] IV Last administered on 04/29/25at 04:27; Start 04/26/25 at 12:00; Stop 04/30/25 at 09:36; Status DC Dexmedetomidine/ Sodium Chloride 200 mcg PROTOCOL IV; Start 04/26/25 at 12:00; Stop 04/26/25 at 14:54; Status DC Dexmedetomidine/ Sodium Chloride 400 mcg STK-MED ONCE IV; Start 04/26/25 at 14:49; Stop 04/26/25 at 14:50; Status DC Vancomycin HCl 1 each AD IV; Start 04/26/25 at 15:00; Stop 05/09/25 at 13:30; Status DC Dexmedetomidine/ Sodium Chloride 400 mcg PROTOCOL STAT IV Last administered on 04/26/25at 15:18; Start 04/26/25 at 14:53; Stop 04/26/25 at 14:58; Status DC Vancomycin HCl 250 ml @ 125 mls/hr Q12H IV Last administered on 04/27/25at 15:22; Start 04/26/25 at 15:30; Stop 04/28/25 at 03:13; Status DC Dexmedetomidine/ Sodium Chloride 400 mcg PROTOCOL PRN IV Last administered on 04/27/25at 23:31; Start 04/26/25 at 19:30; Stop 05/01/25 at 12:45; Status DC Dexmedetomidine/ Sodium Chloride 400 mcg STK-MED ONCE IV Last administered on 04/26/25at 19:14; Start 04/26/25 at 19:10; Stop 04/26/25 at 19:11; Status DC Insulin Human Regular INSULIN SLIDING SCAL... Q4H SQ Last administered on 04/28/25at 06:00; Start 04/27/25 at 20:30; Stop 04/28/25 at 09:11; Status DC Vancomycin HCl 250 ml @ 125 mls/hr Q12H IV; Start 04/28/25 at 15:30; Stop 04/28/25 at 18:53; Status DC Insulin Human Regular 8 unit TIDAC SQ Last administered on 04/30/25at 06:15; Start 04/28/25 at 07:30; Stop 04/30/25 at 07:31; Status DC Vancomycin HCl 250 ml @ 125 mls/hr Q12H IV Last administered on 05/02/25at 10:21; Start 04/28/25 at 20:00; Stop 05/02/25 at 20:34; Status DC Insulin Glargine 40 units DAILY SQ; Start 04/29/25 at 09:00; Stop 04/30/25 at 07:31; Status DC Lidocaine HCl 50 ml STK-MED ONCE .ROUTE; Start 04/29/25 at 16:03; Stop 04/29/25 at 16:06; Status DC Heparin Sodium/ Sodium Chloride 500 ml @ As Directed STK-MED ONCE IV; Start 04/29/25 at 16:03; Stop 04/29/25 at 16:06; Status DC Iodixanol 100 ml STK-MED ONCE .ROUTE; Start 04/29/25 at 16:04; Stop 04/29/25 at 16:06; Status DC Fentanyl Citrate 100 mcg STK-MED ONCE .ROUTE; Start 04/29/25 at 16:27; Stop 04/29/25 at 16:28; Status DC Midazolam HCl 2 mg STK-MED ONCE .ROUTE; Start 04/29/25 at 16:28; Stop 04/29/25 at 16:28; Status DC Midazolam HCl 2 mg STK-MED ONCE .ROUTE; Start 04/29/25 at 16:52; Stop 04/29/25 at 16:52; Status DC Lidocaine 1 each ONCE ONCE TP Last administered on 04/29/25at 19:18; Start 04/29/25 at 18:30; Stop 04/29/25 at 18:33; Status DC Insulin Glargine 50 units DAILY SQ Last administered on 05/04/25at 09:30; Start 04/30/25 at 09:00; Stop 05/05/25 at 07:21; Status DC Insulin Human Regular 12 unit TIDAC SQ Last administered on 05/02/25at 06:45; Start 04/30/25 at 07:30; Stop 05/02/25 at 08:05; Status DC Hydromorphone HCl 1 mg TIDP PRN IVP Last administered on 04/30/25at 20:44; Start 04/30/25 at 13:00; Stop 05/01/25 at 18:46; Status DC Acetaminophen/ Hydrocodone Bitart 1 tab Q4H PRN PO Last administered on 04/30/25at 22:07; Start 04/30/25 at 12:00; Stop 05/05/25 at 11:59; Status DC Pharmacy Profile Note 1 each ONCE MISC; Start 05/01/25 at 08:00; Stop 04/30/25 at 16:52; Status DC Immune Globulin 400 ml @ 0 mls/hr Q24H IV Last administered on 05/01/25at 16:18; Start 05/01/25 at 14:00; Stop 05/02/25 at 12:38; Status DC Pregabalin 25 mg BID PO Last administered on 05/04/25at 09:22; Start 05/01/25 at 21:00; Stop 05/05/25 at 07:22; Status DC Lisinopril 10 mg DAILY PO Last administered on 05/12/25at 09:13; Start 05/02/25 at 09:00; Stop 05/13/25 at 08:46; Status DC Diphenhydramine HCl 25 mg ONCE PRN IVP; Start 05/01/25 at 15:00; Stop 05/01/25 at 15:06; Status DC Dexamethasone Sodium Phosphate 20 mg ONCE PRN IV; Start 05/01/25 at 15:00; Stop 05/01/25 at 15:05; Status DC Dexamethasone Sodium Phosphate 20 mg ONCALL IV Last administered on 05/02/25at 15:41; Start 05/01/25 at 15:30; Stop 05/03/25 at 15:31; Status DC Diphenhydramine HCl 25 mg ONCALL IVP Last administered on 05/02/25at 15:41; Start 05/01/25 at 15:30; Stop 05/03/25 at 15:31; Status DC Hydromorphone HCl 1 mg TID PRN IVP; Start 05/01/25 at 19:00; Stop 05/05/25 at 12:59; Status DC Insulin Human Regular 15 unit TIDAC SQ Last administered on 05/04/25at 17:33; Start 05/02/25 at 11:30; Stop 05/05/25 at 07:21; Status DC Immune Globulin 400 ml @ 0 mls/hr Q24H IV Last administered on 05/02/25at 16:46; Start 05/02/25 at 16:00; Stop 05/03/25 at 16:01; Status DC Vancomycin HCl 250 ml @ 125 mls/hr Q12H9 IV Last administered on 05/08/25at 08:48; Start 05/04/25 at 21:00; Stop 05/08/25 at 20:49; Status DC Pharmacy Profile Note 1 each ONCE [facility]; Start 05/03/25 at 12:00; Stop 05/03/25 at 12:58; Status DC Gentamicin Sulfate/Sodium Chloride 100 ml @ 200 mls/hr Q24H IV Last administered on 05/08/25at 14:18; Start 05/03/25 at 14:00; Stop 05/08/25 at 21:01; Status DC Dexamethasone Sodium Phosphate 20 mg ONCALL IV Last administered on 05/03/25at 17:23; Start 05/03/25 at 17:15; Stop 05/03/25 at 17:16; Status DC Diphenhydramine HCl 25 mg ONCALL IVP Last administered on 05/03/25at 17:22; Start 05/03/25 at 17:15; Stop 05/03/25 at 17:16; Status DC Immune Globulin 400 ml @ 0 mls/hr Q24H IV Last administered on 05/03/25at 17:57; Start 05/03/25 at 17:15; Stop 05/03/25 at 17:16; Status DC Fluconazole 150 mg ONCE ONCE PO Last administered on 05/04/25at 15:57; Start 05/04/25 at 15:30; Stop 05/04/25 at 15:31; Status DC Insulin Human Regular INSULIN SLIDING SCAL... ACHS SQ Last administered on 05/12/25at 20:58; Start 05/05/25 at 07:30; Stop 06/04/25 at 07:29 Insulin Glargine 30 units DAILY SQ Last administered on 05/07/25at 08:12; Start 05/05/25 at 09:00; Stop 05/07/25 at 23:47; Status DC Insulin Human Regular 12 unit TIDAC SQ; Start 05/05/25 at 07:30; Stop 05/05/25 at 22:51; Status DC Venlafaxine HCl 37.5 mg HS PO Last administered on 05/14/25at 20:13; Start 05/05/25 at 21:00; Stop 06/04/25 at 20:59 Insulin Human Regular 10 unit TIDAC SQ Last administered on 05/07/25at 16:06; Start 05/06/25 at 07:30; Stop 05/07/25 at 23:47; Status DC Dexamethasone Sodium Phosphate 10 mg ONCE ONCE IVP Last administered on 05/06/25at 20:20; Start 05/06/25 at 20:00; Stop 05/06/25 at 20:04; Status DC Diphenhydramine HCl 25 mg ONCE ONCE IV Last administered on 05/06/25at 20:20; Start 05/06/25 at 20:00; Stop 05/06/25 at 20:04; Status DC Insulin Glargine 40 units DAILY SQ Last administered on 05/12/25at 09:15; Start 05/08/25 at 09:00; Stop 05/13/25 at 06:31; Status DC Insulin Human Regular 15 unit TIDAC SQ Last administered on 05/08/25at 17:16; Start 05/08/25 at 07:30; Stop 05/09/25 at 06:24; Status DC Vancomycin HCl 750 mg Q12H IVPB Last administered on 05/09/25at 09:45; Start 05/08/25 at 21:00; Stop 05/09/25 at 13:30; Status DC Gentamicin Sulfate/Sodium Chloride 100 ml @ 200 mls/hr Q12H IV Last administered on 05/09/25at 01:36; Start 05/09/25 at 02:00; Stop 05/09/25 at 13:30; Status DC Insulin Human Regular 18 unit TIDAC SQ Last administered on 05/09/25at 06:49; Start 05/09/25 at 07:30; Stop 05/10/25 at 09:56; Status DC Heparin Sodium (Porcine) 5,000 unit STK-MED ONCE .ROUTE Last administered on 05/09/25at 10:07; Start 05/09/25 at 09:57; Stop 05/09/25 at 09:57; Status DC Pharmacy Profile Note 1 each ONCE MISC; Start 05/09/25 at 13:00; Stop 05/09/25 at 13:42; Status DC Nystatin apply abdominal fold/perineum BID TP Last administered on 05/14/25at 20:15; Start 05/09/25 at 21:00; Stop 06/08/25 at 20:59 Daptomycin 1000 mg/Sodium Chloride 100 ml @ 200 mls/hr Q24H IV Last administered on 05/11/25at 16:20; Start 05/09/25 at 15:00; Stop 05/12/25 at 17:41; Status DC Ceftaroline Fosamil 400 mg/ Sodium Chloride 250 ml @ 250 mls/hr Q12H IV Last administered on 05/14/25at 17:20; Start 05/09/25 at 17:00; Stop 05/15/25 at 04:40; Status DC Insulin Human Regular 10 unit TIDAC SQ Last administered on 05/11/25at 12:10; Start 05/10/25 at 11:30; Stop 06/09/25 at 11:29; Status Hold Diphenhydramine HCl 25 mg ONCE ONCE IV Last administered on 05/11/25at 01:55; Start 05/11/25 at 02:00; Stop 05/11/25 at 02:01; Status DC Lidocaine 1 patch ONCE ONCE TP Last administered on 05/11/25at 05:34; Start 05/11/25 at 05:30; Stop 05/11/25 at 05:32; Status DC Pantoprazole Sodium 40 mg DAILY PO Last administered on 05/14/25at 08:06; Start 05/11/25 at 09:00; Stop 06/10/25 at 08:59 Tramadol HCl 50 mg Q6H PRN PO Last administered on 05/12/25at 22:31; Start 05/11/25 at 22:00; Stop 05/16/25 at 21:59 Lidocaine 1 patch Q24H TP Last administered on 05/15/25at 05:57; Start 05/12/25 at 05:00; Stop 06/11/25 at 04:59 Phytonadione 10 mg/Sodium Chloride 51 ml @ 100 mls/hr ONCE ONCE IVPB Last administered on 05/12/25at 16:53; Start 05/12/25 at 16:00; Stop 05/12/25 at 16:30; Status DC Daptomycin 1000 mg/Sodium Chloride 100 ml @ 200 mls/hr Q24H IV Last administered on 05/14/25at 19:14; Start 05/12/25 at 18:00; Stop 05/22/25 at 17:59 Gadoterate Meglumine 10 mmol STK-MED ONCE IV; Start 05/12/25 at 17:55; Stop 05/12/25 at 18:00; Status DC Insulin Glargine 30 units DAILY SQ; Start 05/13/25 at 09:00; Stop 05/14/25 at 23:09; Status DC Lactose 237 ml ONCE ONCE PO; Start 05/13/25 at 13:00; Stop 05/13/25 at 20:20; Status DC Albumin Human 100 ml @ 0 mls/hr AD IV; Start 05/13/25 at 16:00; Stop 05/14/25 at 14:47; Status DC Sevelamer HCl 800 mg ONCE ONCE PO Last administered on 05/14/25at 12:44; Start 05/14/25 at 12:30; Stop 05/14/25 at 12:34; Status DC Albumin Human 100 ml @ 0 mls/hr Q8H6 IV; Start 05/14/25 at 15:00; Stop 05/14/25 at 15:59; Status DC Albumin Human 100 ml @ 0 mls/hr ONCE ONCE IV Last administered on 05/14/25at 20:14; Start 05/14/25 at 18:00; Stop 05/14/25 at 18:01; Status DC Dexmedetomidine HCl 400 mcg/ Sodium Chloride 100 ml @ 0 mls/hr AD PRN IV; Start 05/14/25 at 20:00; Stop 05/14/25 at 20:01; Status DC Prednisone 10 mg ONCE ONCE PO Last administered on 05/14/25at 20:13; Start 05/14/25 at 20:00; Stop 05/14/25 at 20:02; Status DC Dexmedetomidine/ Sodium Chloride 400 mcg PROTOCOL IV Last administered on 05/15/25at 04:29; Start 05/14/25 at 20:30; Stop 06/13/25 at 20:29 Insulin Glargine 20 units DAILY SQ; Start 05/15/25 at 09:00; Stop 06/14/25 at 08:59 Norepinephrine 250 ml @ 0 mls/hr AD PRN IV Last administered on 05/14/25at 23:17; Start 05/14/25 at 23:30; Stop 06/13/25 at 23:29 Norepinephrine 250 ml @ As Directed STK-MED ONCE IV; Start 05/14/25 at 23:15; Stop 05/14/25 at 23:16; Status DC Ceftaroline Fosamil 300 mg/ Sodium Chloride 250 ml @ 125 mls/hr Q8H IV Last administered on 05/15/25at 05:57; Start 05/15/25 at 05:00; Stop 05/19/25 at 16:59 Sodium Bicarbonate 50 meq ONCE ONCE IV; Start 05/15/25 at 07:00; Stop 05/15/25 at 07:01; Status DC Albuterol Sulfate 10 mg ONCE ONCE IH Last administered on 05/15/25at 07:02; Start 05/15/25 at 07:00; Stop 05/15/25 at 07:01; Status DC Furosemide 40 mg ONCE ONCE IV; Start 05/15/25 at 07:00; Stop 05/15/25 at 07:01; Status DC Dextrose 50 ml ONCE ONCE IV; Start 05/15/25 at 07:00; Stop 05/15/25 at 07:01; Status DC Insulin Human Regular 10 unit ONCE ONCE IV; Start 05/15/25 at 07:00; Stop 05/15/25 at 07:01; Status DC Calcium Gluconate 1 gm ONCE ONCE IVPB; Start 05/15/25 at 07:00; Stop 05/15/25 at 07:01; Status DC Sodium Polystyrene Sulfonate 15 gm ONCE ONCE PO; Start 05/15/25 at 07:00; Stop 05/15/25 at 07:01; Status DC Calcium Gluconate 1 gm/Sodium Chloride 50 ml @ 0 mls/hr ONCE ONCE IV; Start 05/15/25 at 07:30; Stop 05/15/25 at 07:31 PARAG VANG MD May 15, 2025 07:22
[2025-05-15] MEDS: DEXTROSE 50%-WATER 50 ML DISP.SYRIN IV ONE (07:29)
[2025-05-15] MEDS: SODIUM BICARB 50MEQ 50ML VIAL IV ONE ×2 (07:29→09:46)
[2025-05-15] MEDS: CALCIUM GLUC 1GM 1 GM in 0.9%NACL 50ML 50 ML IV ONE (07:30)
[2025-05-15 07:48] LABS: ERYTHROCYTE SEDIMENTATION RATE 48.0 MM/HR (0-30)
--- NOTE | 2025-05-15 08:22 | HMCIMG ---
EXAM: CR Chest, 1 view CLINICAL HISTORY: Possible fluid overload. COMPARISON: Chest radiograph dated 05/07/2025. FINDINGS: Mild cardiomegaly with questionable mild diffuse interstitial edema. No large pleural effusion or pneumothorax. No acute osseous abnormality. IMPRESSION: Mild cardiomegaly with questionable mild diffuse interstitial edema. Mild interval worsening in these findings compared to the previous chest radiograph dated 05/07/2025. /Dora
--- NOTE | 2025-05-15 08:23 | PN ---
[facility] PROGRESS NOTE Date of Service: May 15, 2025 Time of Service: 08:07 SUBJECTIVE: This is a 54-year-old female with past medical history of undiagnosed obstructive sleep apnea, diabetes type 2, hypertension, hyperlipidemia, hypothyroidism, restless leg syndrome, anxiety disorder,depression, lupus and severe morbid obesity who presents to the ED for complaints of severe low back pain which started 2 weeks ago and getting worse for the past 2 days and patient reports she is taking prednisone 30mg po daily for her Lupus she said.Patient also reports she was recently seen in this ED for similar complaints and was diagnosed with acute lumbosacral myofascial strain. 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 Urinalysis consistent with urinary tract infection. CT abdomen and pelvis result revealed no acute intra-abdominal or pelvic pathology cirrhotic liver morphology with splenomegaly, consistent with portal hypertension. Bilateral renal cortical thickening may reflect renal parenchymal disease. While in the ER patient received Rocephin 1 g IV, 1 L NS bolus. We will admit patient for further medical management. 04/23/25 Patient was seen and examined at bedside. She was complaining of chest pain ear ly in the morning but her EKG and troponin were normal. Patient says she got liver cirrhosis from taking Tylenol with codeine in the past for a long time. Remarkable labs are Na 129, K 6.4. Cl 98, BUN 44. Cr 1.2 with no anion gap. New EKG shows sinus rhythm with no tall T-waves or shortened QT interval. We will give her a dose of calcium gluconate and lokelma and recheck her labs. we will hold her iv fluids for now. Her urine anion gap is 36.0 mEq/l. Repeat potassium was 4.2 and 4.6. We will order CT lumbar spine and request nephro and cardio consults due to hyponatremia, RTA and cirrhosis with portal hypertension respectively. We will order lupus, complement , anemia panel due to her abnormal labs and h/o SLE. Hematology recommended solu medrol 125 q6. she might need hydrochloroquine upon discharge for SLE 04/24/25 Patient was seen and examined at bedside. She is complaining of widespread generalized body pain with tender points and generalized weakness, her CPK is going up, we will repeat it and start her on pregabalin. Her labs are improving. She had an EGD done last year that showed grade III varices but lost to follow up with TDS. No GI intervention as her Hb is stable. Will start her on vancomycin. Her home meds have been reconciled. She takes venlaflaxine and pramipexole for depression and restless leg syndrome respectively. Her elevated urine anion gap could be due to BALTAZAR or NSAID induced kidney injury but her creatinine is improving. Pending abdominal ultrasound and CT lumbar spine results. 04/25/25 Patient was seen and examined. She was observed sitting in a chair but was unable to answer questions appropriately and appeared confused. Ammonia level was elevated at 59; lactulose has been initiated at 30 mL TID. She is currently receiving vancomycin for MRSA identified in the urine. Right upper quadrant ultrasound demonstrated chronic hepatic changes with a hypoechoic lesion in the right lobe of the liver, possibly representing a complex cyst. CT of the lumbar spine revealed moderate lumbar spondylosis and diffuse osteopenia. Her platelet count is 37 and showing slow improvement. Dr. Urias, covering for Dr. Lorenzo, recommended holding solu-medrol for now. If platelet count declines tomorrow, steroids may need to be restarted. Ammonia and additional labs will be rechecked in the morning. 04/26/25 Patient was seen at bedside. Will request a transfer to the ICU due to worsening agitation and hypercapnic respiratory failure requiring BIPAP support.Will order Precedex drip for sedation to improve tolerance of non-invasive ventilation. Imaging studies including CT head and MRI spine have been ordered to evaluate for underlying neurologic causes. Patient remains hemodynamically stable; pulmonary consult is in place. She is growing gram positive cocci in clusters in her blood, will request ID input on antibiotics as she was on vancomycin previously and was started on bactrim for MRSA in urine. Her platelet count is 36 and solu-medrol is on hold. Ammonia improved from 59 to 12 04/27/25 Patient was evaluated at bedside. She was transferred to the ICU yesterday due to agitation and hypercapnia, requiring a Precedex drip as she was removing her nasal cannula. BiPAP was initiated to support ventilation, and she is now resting comfortably. CT brain was unremarkable with no acute findings. She has a free water deficit of approximately 1.4 liters, for which D5W will be administered. CRP has decreased from 83.5 to 56.4. However, platelets have dropped from 36 to 28, and hematology is closely monitoring her. The patient remains NPO. We wanted to start NG tube feeding but patient has h/o esophageal varices. We will await gastroenterologys recommendations, including possible EGD if indicated. 04/28/25 Patient was evaluated at bedside, she is bed bound not very responsive to questions. She is currently off BiPAP and precedex drip. Her agitation has improved and she is resting comfortably in bed. She has MRSA bacteremia and we will repeat blood cultures. She is currently on vancomycin. She has moderate right hydronephrosis which is increasing, we will request urology consult. Her sodium is trending upwards from 147 to 152 and she has a free water deficit of 2.4 L , we will increase D5 rate from 75 to 150mls/hr. CRP improving from 56.4 to 42.7. Platelets dropped from 28 to 21, we will follow Dr. Lorenzo's recommendations and his plan is give her IgG. She is not bleeding actively. 04/29/25 Patient was evaluated at bedside. She is alert, awake and oriented. She was minimally verbal yesterday but is now more interactive, expressing pain and discussing her medical history. She reports diffuse joint pain and is unable to lift her arms or legs due to significant discomfort. She has generalized joint tenderness and weak bracelet former strength bilaterally. urologist Dr. Colin recommended nephrostomy tube on her right due to hydronephrosis. Her platelets improved to 44 without any intervention. She will be getting platelets for the procedure. She has infectious spondylodiscitis which could be the source of her bacteremia. We have requested transfer to [facility] but feed house supervisor said Dr. Sanchez has privileges at [facility] and will try to consult him. Her white count went up to 1 2.2, LFTs mildly going up. We will hold off on gabapentin for now. 04/30/25 Patient was evaluated at bedside. She is alert, awake and oriented. Her vitals are stable. She is interactive, expressing pain and discussing her medical history. She reports diffuse joint pain and is able to lift her arms or legs slightly due to pain and discomfort. Her active and passive range of motions are limited. She has generalized joint tenderness and weak bracelet former strength bilaterally. She also passed stool more than 5 times yesterday could be due to lactulose which has been stopped from today. A Percutaneous fluroscopy-guided placement of an 8-F nephrostomy catheter was performed,the patient tolerated the procedure well. Neurosurgeon Dr. Sanchez saw the patient and came up with possible diagnosis of discitis and osteomyelitis at L2-L3 along with psoas inflammation. She has spondylolisthesis which is non- critical and can be managed medically for now. According to Dr. Lorenzo she will benefit from IVIg for 3 days on the background of possible ITP. Her current platelet is 41 and Hgb 9.6. Also, Endocrinology team adjusted Insulin regimen. We have requested cardiology consult for suspected endocarditis and will request RAMAN although she has thrombocytopenia and h/o esophageal varices. 05/01/25 Patient was evaluated at bedside. She is alert, awake and oriented. Her vitals are stable, except blood pressure which is 158/80. She reports diffuse joint pain and is able to lift her arms or legs slightly due to pain and discomfort. Her active and passive range of motions are limited. She has generalized joint tenderness and weak bracelet former strength bilaterally. As per Dr. Lorenzo she will be started IVIG from today for 3 days. As per the Cardiology, she won't undergo RAMAN due thrombocytopenia, cirrhosis, varices. We will continue IV antibiotics and add low dose pregabalin for her pain. 05/02/25 Patient was evaluated at bedside. She is alert, awake and oriented. Her vitals are stable, except blood pressure which is 157/81. Labs showed WBC decreasing from 11.6 to 5.7, platelets from 44 to 32 and random glucose of 226. There has been marked decline in pain. We will continue IV antibiotics and she is receiving Immune globulin every 24 hr. Her Insulin dosage has been adjusted. Blood culture showed gram positive cocci in clusters, STAPHYLOCOCCUS AUREUS. Her prognosis remains guarded. Plan is to discharge her to [facility] for 6 weeks of IV antibiotics. 05/03/25 Patient was evaluated at bedside. She is alert, awake and oriented. Her vitals are stable,and her blood pressure which is 137/70. Labs showed WBC 7.8 , platelets from increasing from 32 to 44 and random glucose of 232. Her creatinine level is 1.2. There has been marked decline in pain and discomfort. We will continue IV antibiotics and she is receiving Immune globulin every 24 hr. Her last dose for Immune globulin is today. Her Insulin dosage has been adjusted. Blood culture showed gram positive cocci. Her prognosis remains guarded. She is on IV vancomycin. Plan is to discharge her to [facility] for 6 weeks of IV antibiotics. 05/04/25: The patient was evaluated at the bedside today. She had just finished showering and reported new-onset slurred speech, facial weakness and word- finding difficulty. She reports no weakness in the extremities. Blood cultures r emain positive for gram-positive cocci, specifically MRSA. She is continuing on vancomycin, and gentamicin was initiated yesterday per Infectious Disease recommendations. She has completed a total of three IV IgG infusions. Platelet count is currently 31,000, decreased from 41,000 yesterday. Additionally, the patient has developed a groin rash with associated itching. Physical therapy noted that she was unable to ambulate today and experienced significant difficulty with mobility. We will continue to closely monitor her neurological status, platelet counts, and overall clinical response. Repeat blood cultures will be obtained at an appropriate interval following the initiation of gentamicin, per Infectious Disease guidance. Further assessment and management plan are outlined below. 05/05/25 The patient was evaluated at the bedside today. Her vitals are stable and communicated well. She complaints of pain in the neck and shoulder. She reports no weakness in the extremities. Blood cultures remain positive for gram-positive cocci, specifically MRSA. She is continuing on vancomycin, and gentamicin per Infectious Disease recommendations. Repeat blood cultures will be obtained at an appropriate interval following the initiation of gentamicin. She has completed a total of three IV IgG infusions. Platelet count is currently decreased [place] 31,000 [place] [address]. Her WBC is 6.8 and Hgb is 8.6. Her insulin medications has been adjusted by the endocrinology team. Additionally, the patient's groin rash with associated itching has been improving. She has been prescribed for Venlafaxine for management of depression and anxiety. Also Case management updated that [facility], Insurance approval is still pending; no authorization has been granted as of this time. Further assessment and management plan are outlined below. 05/06/25 The patient was evaluated at the bedside today. Her vitals are stable and communicated well. Her pain is gradually decreasing. She reports no weakness in the extremities. Blood cultures remain positive for gram-positive cocci, specifically MRSA. Blood culture has been sent today after 3 days of gentamicin. She is continuing on vancomycin, and gentamicin per Infectious Disease recommendations. . She has completed a total of three IV IgG infusions. Platelet count is currently decreased from 31,000 [address]. As per Dr. Lorenzo, she has been planned for the transfusion of platelets today. Her WBC is 5.1, Hgb is 8.9, CRP 61.50 and whole blood glucose 233. In addition,PT is 17.2, INR 1.71, APTT 36.3 and Fibrinogen 119. Also, the Liver enzymes are elevated with total bilirubin of 1.6, AST 166, ALT 136 and ALP 358. Her Vancomycin trough level has increased from 5.0 to 18.1. Her insulin medications has been adjusted by the endocrinology team. Additionally, the patient's groin rash has been improving. As per Nephrology, the patient's renal function has actually greatly improved &the patient is being seen by case management in regards to placement at the [facility]. We will continue to follow the patient closely. 05/07/25 The patient was evaluated at the bedside today. Her vitals are stable and comm unicated well. Her pain has reduced significantly. Preliminary Blood cultures showed positive for gram-positive cocci which was done yesterday after 3 days of gentamicin. PICC line has been removed as per ID recommendation. [place] [address] today. Fecal occult blood test is positive. She received platelets transfusion yesterday. Her WBC is trending downwards from 5.1 to 3.0, Hgb is 8.4, and whole blood glucose 245. In addition, PT is 17.2, INR 1.71, APTT 36.3 and Fibrinogen 119. Her D-dimer is 7184. She has been planed today for bilateral US venous Doppler,V/Q scan and CTPA. Her Liver enzymes revealed total bilirubin of 1.9, AST 120, ALT 125 and ALP 371. Her Vancomycin trough level has decreased from 18.1 to 0.2. Her insulin medications has been followed by the endocrinology team. As per Dr Lorenzo, the patient can be transferred to [facility] as soon as accepted and he is trying to get her Promacta, medicine that raises the platelets,once its available. The WBC-tagged scan has been deferred and rescheduled for tomorrow to avoid excessive radiation exposure since patient was initially planned for V/Q scan today. 05/08/25 The patient was evaluated at the bedside today. Her vitals are stable and com municated well. She complained of hyperventilation in the night. Platelet count [id number] today. Her WBC is 5.6, Hgb is 9.1, and whole blood glucose is 314 . In addition, PT is 16, INR 1.58, APTT 35 and Fibrinogen 122. Her D-dimer is 6586. Her V/Q scan wasn't completed because she couldn't lie flat. The US venous doppler (B/L) was done which revealed no deep venous thrombosis evident in the bilateral lower extremity and No superficial thrombophlebitis in the bilateral lower extremity. Her Liver enzymes revealed total bilirubin of 1.9, AST 102, ALT 124 and ALP 391. Her Gentamicin peak and trough level is 0.2 and 0.3 respectively. Her insulin medications has been followed by the endocrinology team. We are awaiting for WBC tagged scan report. 05/09/25 The patient was evaluated at the bedside today. Her vitals are stable and communicated well. She complained of right lower [place] [address] today. Her WBC is 6.2, Hgb is 8.7, and random blood glucose is 236. Blood culture is positive for gram positive cocci. According to ID recommendation, Patient is started on Daptomycin and Ceftaroline. As per Dr Lorenzo, he is trying to get the promacta. Her Liver enzymes revealed total bilirubin of 1.8, AST 128, ALT 139 and ALP 410. Her creatinine is 1.2 and BUN is 41. Participation with physical therapy has been improving. We will continue to monitor patient. 05/10/25 The patient was evaluated at the bedside today. Her vitals are stable and communicated well. [place] [address] [place] [address]. Her WBCs trending downwards from 6.2 to 4.7, RBC 3.34, hemoglobin 8.8. Blood culture is positive for gram positive cocci. According to ID recommendation, Patient is on Day 2 of Daptomycin and Ceftaroline. Blood cultures will be sent on Monday. She did her 1st cycle of WBC tagged scan test. It will be done on 48 hours and then 72 hours. After that we will have the conclusive findings if anything is present. Her creatinine is trending upwards from 1.2 to 1.5 and blood urea nitrogen is 39. Her CRP is 47.80. Her creatinine is 1.2 and BUN is 41. Participation with physical therapy has been improving. As per the recommendation of Endocrinology she is getting Lantus 30 units daily and Humalog 10 units t.i.d. before beats patient's glucose are improving. Today's random blood glucose was 182. We will continue to monitor the patient. 05/11/25 The patient was evaluated at the bedside today. She complained of right upper quadrant pain. She is stable hemodynamically. Platelet count 66919. Her WBCs trending up from 4.7 to 6.8, hemoglobin 8.1. Blood culture is positive for gram positive cocci. According to ID recommendation, Patient is on Day 3 of Daptomy mich and Ceftaroline. Blood cultures will be sent on Monday. She did her 2nd cycle of WBC tagged scan test. Next cycle will be done today and tomorrow.. After that we will have the conclusive findings if anything is present. Her creatinine is trending upwards from 1.2< 1.5<1.8 and blood urea nitrogen is 41. LFT trending up, bilirubin 2.1, AST 153, ALT 154, ALP 443. Her CRP is 47.80. Participation with physical therapy has been improving. As per the recommendation of Endocrinology she is getting Lantus 40 units daily and Humalog 10 units t.i.d with sliding scale insulin.. Today's random blood glucose was 210. We will continue to monitor the patient. Hematology, ID and nephrology on the board. Plan as discussed below 05/12/25 The patient was evaluated at the bedside today. She complained of right upper quadrant pain. She is [place] [address]. Her WBCs trending up from 4.7 to 6.8 to 8.4 toady, hemoglobin 8.1 to 8.4. Blood culture is positive for gram positive cocci. According to ID recommendation, Patient is on Day 4 of Daptomycin and Ceftaroline. Blood cultures will be sent today. She did her all the cycles of of WBC tagged scan test and we are awaiting the final results. Her creatinine is trending upwards from 1.2< 1.5<1. 8<1.9 and blood urea nitrogen is 44. Her total creatine kinase is 383. LFT trending up, bilirubin 2.2, AST 161, ALT 158, ALP 451. Her albumin is 1.4. Ultrasonography done on 05/11 revealed increased echogenicity of the right kidney which may reflect renal parenchymal disease. Previously demonstrated liver lesion and right hydronephrosis are not visualized. Chronic hepatitis disease was present. She will receive vitamin K 10 mg. Along with other lab parameters we will check the coagulation profile. She has been planned for MRI of lumbar spine with contrast. As per the recommendation of Endocrinology she is getting Lantus 30 units daily and Humalog 10 units t.i.d with sliding scale insulin. Today's random blood glucose was 162. We will continue to monitor the patient. Hematology, ID and nephrology on the board. Plan as discussed below. 05/13/25 The patient was evaluated at the bedside today. She has petechiae [place] [address]. Her WBCs is 8.5, hemoglobin 8.1. Blood culture done on 05/12 is positive for gram positive cocci in clusters. She is continued Daptomycin and Ceftaroline (Day 5). Dr Sanchez, the neurosurgeon has been consulted for Intradiscal collection with extension into tepidural space in the lumbar region (L2-L3 level). We have also consulted dietitian for her poor appetite. We will give IV albumin for possible hepatorenal syndrome. 05/14/25 The patient was evaluated at the bedside today. Her clinical status is worsening. We are transferring the [place] [address]. She has persistent Gram-positive, MRSA bacteremia and blood culture is still positive as of 05/14/2025. She is continued Daptomycin and Ceftaroline (Day 6). She has been started on sevelamer 800 mg per oral once. Her albumin has been changed to every 8 hourly. Critical care team has been consulted for further evaluation and management. 05/15/25 The patient was evaluated at the bedside today. Her clinical status is worsening. She is continued Daptomycin and Ceftaroline (Day 7). As per Dr. Singh's, patient's critical condition was discussed with staff, and family. Surgical drainage remains an option, but patient requires medical optimization 1st: Planned made for aggressive medical management. She also developed hyperkalemia with potassium 6.7. She was given calcium gluconate and Kayexalate. Repeat potassium is 5.8 and we will recheck BMP in 6 hours. Her renal function and liver functions are worsening. Her creatinine is 4.4. The prognosis is guarded for her. As per Nephrology: Patient with worsening renal function, persistent hyperkalemia and oliguria: Dialysis recommended and done, 1500 ml removed. REVIEW OF SYSTEMS CONSTITUTIONAL: No fever, chills, or night sweats. NEUROLOGICAL: Denies headache, sensory and motor deficit. CARDIOVASCULAR: Denies any exertional angina, dyspnea on exertion, orthopnea, paroxysmal nocturnal dyspnea, palpitations. PULMONARY: Denies any shortness of breath, cough, phlegm/sputum, hemoptysis, pleuritic chest pain. GASTROINTESTINAL: Denies nausea, vomiting. Denies pain, tenderness around the abdomen. GENITOURINARY: Denies frequency, urgency, nocturia, hematuria or incontinence. PHYSICAL EXAM GENERAL APPEARANCE: The patient is alert, awake and oriented and bedbound. NEUROLOGICAL: No sensory and motor deficits. CHEST: Normal chest expansion. LUNGS: Absence of any rales, rhonchi or any wheezing. CARDIOVASCULAR: Regular. S1 and S2 normal. No appreciable rubs, murmurs or gallops. ABDOMEN: Soft nontender, and nondistended. There is no rebound, voluntary guarding, or rigidity. GENITOURINARY: S/P day 12, Nephrostomy tube on the right side SKIN AND INTEGUMENTARY: Petechiae noted on different parts of the body. Vital Signs (last 8hr) Date Time Temp Pulse Resp B/P (MAP) Pulse Ox O2 Delivery O2 Flow Rate FiO2 05/15/25 07:15 70 25 30 05/15/25 07:03 77 25 05/15/25 04:52 64 19 100/55 (70) 99 05/15/25 04:47 62 28 104/56 (72) 100 05/15/25 04:43 58 17 30 7/24/25 04:42 63 21 107/52 (70) 100 05/15/25 04:37 62 23 109/55 (73) 99 05/15/25 04:32 62 19 100/46 (64) 100 05/15/25 04:27 62 26 106/50 (68) 100 05/15/25 04:22 64 22 106/44 (64) 99 05/15/25 04:17 62 21 104/50 (68) 100 05/15/25 04:15 100 Bi-PAP+ 30 05/15/25 04:12 63 23 98/55 (69) 100 05/15/25 04:07 62 20 95/61 (72) 99 05/15/25 04:02 62 21 99/51 (67) 100 05/15/25 03:57 61 20 105/52 (69) 100 05/15/25 03:52 62 23 109/56 (73) 100 05/15/25 03:47 61 22 108/69 (82) 100 05/15/25 03:32 61 23 128/63 (84) 99 05/15/25 03:27 59 16 131/53 (79) 99 05/15/25 03:22 62 18 127/57 (80) 100 05/15/25 03:17 62 18 117/66 (83) 99 05/15/25 03:12 97.9 62 25 121/58 (79) 100 05/15/25 03:07 61 20 127/54 (78) 99 05/15/25 03:02 61 18 124/53 (76) 99 05/15/25 02:57 61 29 129/56 (80) 99 05/15/25 02:52 61 33 124/62 (82) 100 05/15/25 02:47 61 22 114/65 (81) 100 05/15/25 02:42 61 17 119/55 (76) 100 05/15/25 02:37 61 12 125/47 (73) 99 05/15/25 02:32 61 18 120/60 (80) 99 05/15/25 02:27 61 24 125/57 (79) 98 05/15/25 02:22 61 24 123/57 (79) 99 05/15/25 02:17 61 18 123/44 (70) 99 05/15/25 02:12 61 19 126/47 (73) 99 05/15/25 02:07 61 28 125/52 (76) 99 05/15/25 02:02 61 20 120/67 (84) 99 05/15/25 01:57 59 26 131/53 (79) 99 05/15/25 01:52 61 32 120/41 (67) 99 05/15/25 01:47 61 23 127/51 (76) 99 05/15/25 01:42 55 27 120/61 (80) 99 05/15/25 01:37 61 18 118/58 (78) 99 05/15/25 01:32 60 30 124/47 (72) 99 05/15/25 01:27 61 20 124/57 (79) 99 05/15/25 01:22 61 20 120/63 (82) 99 05/15/25 01:17 60 25 118/52 (74) 99 05/15/25 01:12 59 22 119/56 (77) 99 05/15/25 01:07 62 24 127/56 (79) 99 05/15/25 01:02 62 20 121/58 (79) 98 05/15/25 00:57 62 18 122/49 (73) 99 05/15/25 00:57 61 20 30 05/15/25 00:52 62 24 117/51 (73) 99 05/15/25 00:47 62 18 117/63 (81) 98 05/15/25 00:42 60 23 121/51 (74) 99 05/15/25 00:37 61 24 122/60 (80) 99 05/15/25 00:32 61 19 122/60 (80) 100 05/15/25 00:27 60 27 133/59 (83) 99 05/15/25 00:22 59 24 117/62 (80) 99 05/15/25 00:17 60 22 124/58 (80) 99 05/15/25 00:12 59 22 136/57 (83) 99 LABS: Laboratory: Test 05/15/25 07:19 05/15/25 06:19 05/15/25 06:02 05/15/25 04:19 Range/Units Blood Gas Specimen Type Arterial Arterial Blood pH 7.306 L 7.350-7.450 Arterial Blood Partial Pressure CO2 37 32-45 mmHg Arterial Blood Partial Pressure O2 111.7 H 83.0-108.0 mmHg Arterial Blood HCO3 17.9 L 21.0-28.0 mmol/L Arterial Blood Oxygen Saturation 97.7 94.0-98.0 % Arterial Blood Base Excess -7.7 L -2.0-3.0 mmol/L Hemoglobin (Blood Gas) 8.5 L 12.0-16.0 g/dL Sodium (Blood Gas) 132 L 136-145 MMOL/L Bedside Potassium (Blood Gas) 6.3 *H 3.4-4.5 MMOL/L Bedside Chloride (Blood Gas) 105 98-107 MMOL/L Bedside Glucose (Blood Gas) 136 H 65-95 MG/DL Bedside Ionized Calcium (Blood Gas) 1.14 L 1.15-1.33 MMOL/L Bedside Lactic Acid (Blood Gas) 2.29 H 0.36-0.75 MMOL/L Blood Gas Temperature 37.0 35.5-37.0 CELSIUS Blood Gas Respiration Rate 12.0 min. Blood Gas Vent Mode BIPAP 12 6 ROOM AIR FiO2 30.0 % Blood Gas Specimen Comment LR [place] RN Whole Blood Glucose 119 #H 70-110 MG/DL White Blood Count 9.5 4.8-10.8 K/uL Red Blood Count 2.70 L 4.00-5.50 MIL/uL Hemoglobin 7.4 L 12.0-16.0 g/dL Hematocrit 23.4 L 36-48 % Mean Corpuscular Volume 86.7 79-99 fL Mean Corpuscular Hemoglobin 27.4 27.0-33.0 pg Mean Corpuscular Hemoglobin Concent 31.6 L 32.0-36.0 g/dL Red Cell Distribution Width 28.4 H 11.0-15.5 % Platelet Count 31 L 130-400 K/uL Mean Platelet Volume 10.7 H 7.5-10.5 fL Nucleated Red Blood Cells 0.4 H 0.0-0.19 % Erythrocyte Sedimentation Rate 48 H 0-30 MM/HR Sodium Level 131 L 136-145 mmol/L Potassium Level 6.7 *H 3.5-5.1 mmol/L Chloride Level 100 L 101-111 mmol/L Carbon Dioxide Level 20 L 21-32 mmol/L Blood Urea Nitrogen 80 *H 7-18 mg/dL Creatinine 4.4 H 0.5-1.0 mg/dL Glomerular Filtration Rate Calc 11 >90 mL/min Random Glucose 137 #H 70-105 mg/dL Total Calcium 8.1 L 8.5-10.1 mg/dL Total Bilirubin 4.3 #H 0.2-1.0 mg/dL Aspartate Amino Transf (AST/SGOT) 275 H 10-37 U/L Alanine Aminotransferase (ALT/SGPT) 178 H 12-78 U/L Alkaline Phosphatase 641 *H 50-136 U/L Ammonia 16 11-32 umol/L C-Reactive Protein, Quantitative 89.40 H 0.5-3.0 mg/L Total Protein 7.5 6.0-8.3 g/dL Albumin 2.0 #L 3.5-5.0 g/dL Procalcitonin 2.03 H 0.05-0.5 ng/mL Lactic Acid Level 2.5 0.8-2.5 mmol/L Test 05/14/25 18:19 05/14/25 04:21 05/13/25 22:16 Range/Units D-Dimer Quantitative (PE/DVT) 6512 *H 0-500 ng/mL Phosphorus Level 6.9 H 2.5-4.9 mg/dL Magnesium Level 2.00 1.80-2.40 mg/dL Troponin I High Sensitivity 28 4-50 ng/L B-Type Natriuretic Peptide 125 H 0-100 pg/mL Immature Granulocyte % (Auto) 0.9 0-1 % Neutrophils (%) (Auto) 79.2 H 40.0-77.0 % Lymphocytes (%) (Auto) 8.4 L 21.0-51.0 % Monocytes (%) (Auto) 9.6 3.0-13.0 % Eosinophils (%) (Auto) 1.8 0.0-8.0 % Basophils (%) (Auto) 0.1 0.0-5.0 % Neutrophils # (Auto) 6.7 1.8-7.7 K/uL Lymphocytes # (Auto) 0.7 L 1.0-4.8 K/uL Monocytes # (Auto) 0.8 0.1-1.0 K/uL Eosinophils # (Auto) 0.15 0.00-0.70 K/uL Basophils # (Auto) 0.01 0.00-0.20 K/uL Absolute Immature Granulocyte (auto 0.08 0-1 K/uL Total Creatine Kinase 579 *H 21-232 U/L Urine Color YELLOW YELLOW Urine Appearance CLOUDY H CLEAR Urine pH 5.5 5.0-8.0 Urine Specific [place] 1.014 1.001-1.031 Urine Protein 100 H NEGATIVE mg/dL Urine Glucose (UA) TRACE H NEGATIVE mg/dL Urine Ketones NEGATIVE NEGATIVE mg/dL Urine Occult Blood LARGE H NEGATIVE Urine Nitrate NEGATIVE NEGATIVE Urine Bilirubin NEGATIVE NEGATIVE mg/dL Urine Urobilinogen 0.2 0.2-1.0 mg/dL Urine Leukocyte Esterase 25 H NEGATIVE Que/uL Urine RBC TNTC H 0-1 /HPF Urine WBC 26-50 H 0-1 /HPF Urine WBC Clumps (Auto) FEW 0-1 /HPF Urine Bacteria RARE None Seen /HPF Urine Granular Casts (Auto) >100 H None Seen /LPF Urine Yeast FEW None Seen /HPF Urine Random Creatinine 56.37 30-135 mg/dL Urine Random Sodium 13 L 40-220 mmol/l Current Medications Medications (Trade) Dose Ordered Sig/Roberth Route PRN Reason Start Time Stop Time Status Last Admin Dose Admin Acetaminophen (TYLenol 325MG TAB) 650 mg Q4H PRN PO MILD PAIN (1-3) 04/22/25 20:00 05/22/25 19:59 05/11/25 21:31 650 MG Acetaminophen (TYLenol 325MG TAB) 650 mg Q6H PRN PO TEMPERATURE GREATER THAN 101.5 04/22/25 20:00 05/22/25 19:59 04/23/25 10:02 650 MG Acetaminophen/ Hydrocodone Bitart (NORco 5/325MG) 1 tab Q4H PRN PO MODERATE PAIN (4-6) 04/30/25 12:00 05/05/25 11:59 DC 04/30/25 22:07 1 TAB Albumin Human 100 ml @ 0 mls/hr AD IV 05/13/25 16:00 05/14/25 14:47 DC Albumin Human 100 ml @ 0 mls/hr Q8H6 IV 05/14/25 15:00 05/14/25 15:59 DC Atorvastatin Calcium (LIPItor 20MG) 20 mg HS PO 04/24/25 21:00 05/13/25 15:42 DC 05/12/25 20:57 20 MG Ceftaroline Fosamil 300 mg/ Sodium Chloride 250 ml @ 125 mls/hr Q8H IV 05/15/25 05:00 05/19/25 16:59 05/15/25 05:57 125 MLS/HR Ceftaroline Fosamil 400 mg/ Sodium Chloride 250 ml @ 250 mls/hr Q12H IV 05/09/25 17:00 05/15/25 04:40 DC 05/14/25 17:20 250 MLS/HR Ceftriaxone Sodium 1 gm/ Sodium Chloride 50 ml @ 100 mls/hr BID IV 04/22/25 21:00 04/22/25 19:59 DC Ceftriaxone Sodium (ROCEphine 1G INJ) 1 gm BID IVPB 04/22/25 21:00 04/22/25 20:44 DC Ceftriaxone Sodium (ROCEphine 1G INJ) 1 gm BID IVPB 04/23/25 09:00 04/25/25 12:36 DC 04/25/25 09:44 1 GM Daptomycin 1000 mg/Sodium Chloride 100 ml @ 200 mls/hr Q24H IV 05/09/25 15:00 05/12/25 17:41 DC 05/11/25 16:20 200 MLS/HR Daptomycin 1000 mg/Sodium Chloride 100 ml @ 200 mls/hr Q24H IV 05/12/25 18:00 05/22/25 17:59 05/14/25 19:14 200 MLS/HR Dexamethasone Sodium Phosphate (dexaMETHasone 4MG/ML 1ML VIAL) 20 mg ONCALL IV 05/01/25 15:30 05/03/25 15:31 DC 05/02/25 15:41 20 MG Dexamethasone Sodium Phosphate (dexaMETHasone 4MG/ML 1ML VIAL) 20 mg ONCALL IV 05/03/25 17:15 05/03/25 17:16 DC 05/03/25 17:23 20 MG Dexamethasone Sodium Phosphate (dexaMETHasone 4MG/ML 1ML VIAL) 20 mg ONCE PRN IV PRE-MED 05/01/25 15:00 05/01/25 15:05 DC Dexmedetomidine HCl 400 mcg/ Sodium Chloride 100 ml @ 0 mls/hr AD PRN IV TITRATE 05/14/25 20:00 05/14/25 20:01 DC Dexmedetomidine/ Sodium Chloride (PRECEdex 200MCG/ 50ML-NS) 200 mcg PROTOCOL IV 04/26/25 12:00 04/26/25 14:54 DC Dexmedetomidine/ Sodium Chloride (PRECEdex 400MCG/ 100ML-NS) 400 mcg PROTOCOL IV 05/14/25 20:30 06/13/25 20:29 05/15/25 04:29 400 MCG Dexmedetomidine/ Sodium Chloride (PRECEdex 400MCG/ 100ML-NS) 400 mcg PROTOCOL PRN IV ANXIETY/AGITATION 04/26/25 19:30 05/01/25 12:45 DC 04/27/25 23:31 400 MCG Dexmedetomidine/ Sodium Chloride (PRECEdex 400MCG/ 100ML-NS) 400 mcg PROTOCOL STAT IV 04/26/25 14:53 04/26/25 14:58 DC 04/26/25 15:18 400 MCG Dextrose 1,000 ml @ 75 mls/hr [id number] IV 04/26/25 12:00 04/30/25 09:36 DC 04/29/25 04:27 150 MLS/HR Dextrose (D50w) 50 ml AD PRN IV HYPOGLYCEMIA PROTOCOL 04/22/25 20:00 05/22/25 19:59 Diphenhydramine HCl (BENAdryl INJ) 25 mg ONCALL IVP 05/01/25 15:30 05/03/25 15:31 DC 05/02/25 15:41 25 MG Diphenhydramine HCl (BENAdryl INJ) 25 mg ONCALL IVP 05/03/25 17:15 05/03/25 17:16 DC 05/03/25 17:22 25 MG Diphenhydramine HCl (BENAdryl INJ) 25 mg ONCE PRN IVP PRE-MED 05/01/25 15:00 05/01/25 15:06 DC Famotidine (Pepcid 20mg Tab) 20 mg DAILY PO 04/23/25 09:00 04/24/25 09:48 DC 04/23/25 09:33 20 MG Gabapentin (NEURontin 300 MG CAP) 300 mg BID PO 04/24/25 21:00 04/28/25 09:10 DC 04/25/25 21:51 300 MG Gentamicin Sulfate/Sodium Chloride 100 ml @ 200 mls/hr Q12H IV 05/09/25 02:00 05/09/25 13:30 DC 05/09/25 01:36 200 MLS/HR Gentamicin Sulfate/Sodium Chloride 100 ml @ 200 mls/hr Q24H IV 05/03/25 14:00 05/08/25 21:01 DC 05/08/25 14:18 200 MLS/HR Glucagon (Glucagon 1mg Kit) 1 mg AD PRN IM HYPOGLYCEMIA PROTOCOL 04/22/25 20:00 05/22/25 19:59 Heparin Sodium (Porcine) (HEParin 5,000 UNIT VIAL) 5,000 unit Q8H SQ 04/25/25 09:00 04/25/25 08:40 DC Hydromorphone HCl (DiLAUDid 0.5MG INJ) 0.5 mg BIDPRN PRN IVP SEVERE PAIN (7-10) 04/25/25 19:00 04/30/25 11:59 DC 04/29/25 23:31 0.5 MG Hydromorphone HCl (DiLAUDid 0.5MG INJ) 0.5 mg Q6H PRN IVP SEVERE PAIN (7-10) 04/23/25 14:00 04/25/25 08:25 CA 04/25/25 04:14 0.5 MG Hydromorphone HCl (DiLAUDid 1MG INJ) 1 mg TID PRN IVP SEVERE PAIN (7-10) 05/01/25 19:00 05/05/25 12:59 DC Hydromorphone HCl (DiLAUDid 1MG INJ) 1 mg TIDP PRN IVP SEVERE PAIN (7-10) 04/30/25 13:00 05/01/25 18:46 CA 04/30/25 20:44 1 MG Immune Globulin 400 ml @ 0 mls/hr Q24H IV 05/01/25 14:00 05/02/25 12:38 CA 05/01/25 16:18 37.5 MLS/HR Immune Globulin 400 ml @ 0 mls/hr Q24H IV 05/02/25 16:00 05/03/25 16:01 DC 05/02/25 16:46 37.5 MLS/HR Immune Globulin 400 ml @ 0 mls/hr Q24H IV 05/03/25 17:15 05/03/25 17:16 DC 05/03/25 17:57 37.5 MLS/HR Insulin Glargine (LANtus 100 UNITS/ML 10 ML VIAL) 10 units HS SQ 04/24/25 21:00 04/24/25 16:57 DC Insulin Glargine (LANtus 100 UNITS/ML 10 ML VIAL) 10 units ONCE STAT SQ 04/24/25 10:54 04/24/25 11:00 DC 04/24/25 11:19 10 UNITS Insulin Glargine (LANtus 100 UNITS/ML 10 ML VIAL) 15 units HS SQ 04/24/25 21:00 04/24/25 17:06 DC Insulin Glargine (LANtus 100 UNITS/ML 10 ML VIAL) 20 units DAILY SQ 05/15/25 09:00 06/14/25 08:59 Insulin Glargine (LANtus 100 UNITS/ML 10 ML VIAL) 30 units DAILY SQ 05/05/25 09:00 05/07/25 23:47 DC 05/07/25 08:12 30 UNITS Insulin Glargine (LANtus 100 UNITS/ML 10 ML VIAL) 30 units DAILY SQ 05/13/25 09:00 05/14/25 23:09 DC Insulin Glargine (LANtus 100 UNITS/ML 10 ML VIAL) 30 units ONCE SQ 04/24/25 17:00 04/25/25 06:19 DC 04/24/25 18:16 30 UNITS Insulin Glargine (LANtus 100 UNITS/ML 10 ML VIAL) 40 units DAILY SQ 05/08/25 09:00 05/13/25 06:31 DC 05/12/25 09:15 40 UNITS Insulin Glargine (LANtus 100 UNITS/ML 10 ML VIAL) 40 units DAILY SQ 04/29/25 09:00 04/30/25 07:31 DC Insulin Glargine (LANtus 100 UNITS/ML 10 ML VIAL) 50 units DAILY SQ 04/26/25 09:00 04/29/25 06:49 DC 04/28/25 08:46 50 UNITS Insulin Glargine (LANtus 100 UNITS/ML 10 ML VIAL) 50 units DAILY SQ 04/30/25 09:00 05/05/25 07:21 DC 05/04/25 09:30 50 UNITS Insulin Human Regular (humuLIN R 100 UNIT/ML 3ML) 5 unit TIDAC SQ 04/24/25 17:00 04/24/25 17:06 DC Insulin Human Regular (humuLIN R 100 UNIT/ML 3ML) 8 unit TIDAC SQ 04/28/25 07:30 04/30/25 07:31 DC 04/30/25 06:15 8 UNIT Insulin Human Regular (humuLIN R 100 UNIT/ML 3ML) 10 unit TIDAC SQ 05/06/25 07:30 05/07/25 23:47 DC 05/07/25 16:06 10 UNIT Insulin Human Regular (humuLIN R 100 UNIT/ML 3ML) 10 unit TIDAC SQ 05/10/25 11:30 06/09/25 11:29 Hold 05/11/25 12:10 10 UNIT Insulin Human Regular (humuLIN R 100 UNIT/ML 3ML) 10 unit TIDAC SQ 04/24/25 17:00 04/25/25 06:17 DC 04/25/25 06:15 10 UNIT Insulin Human Regular (humuLIN R 100 UNIT/ML 3ML) 12 unit TIDAC SQ 05/05/25 07:30 05/05/25 22:51 DC Insulin Human Regular (humuLIN R 100 UNIT/ML 3ML) 12 unit TIDAC SQ 04/30/25 07:30 05/02/25 08:05 DC 05/02/25 06:45 12 UNIT Insulin Human Regular (humuLIN R 100 UNIT/ML 3ML) 15 unit TIDAC SQ 05/02/25 11:30 05/05/25 07:21 DC 05/04/25 17:33 15 UNIT Insulin Human Regular (humuLIN R 100 UNIT/ML 3ML) 15 unit TIDAC SQ 05/08/25 07:30 05/09/25 06:24 DC 05/08/25 17:16 15 UNIT Insulin Human Regular (humuLIN R 100 UNIT/ML 3ML) 15 unit TIDAC SQ 04/26/25 11:30 04/27/25 20:30 DC Insulin Human Regular (humuLIN R 100 UNIT/ML 3ML) 18 unit TIDAC SQ 05/09/25 07:30 05/10/25 09:56 DC 05/09/25 06:49 18 UNIT Insulin Human Regular (humuLIN R 100 UNIT/ML 3ML) 25 unit TIDAC SQ 04/25/25 07:30 04/26/25 07:58 DC 04/25/25 17:39 25 UNIT Insulin Human Regular (humuLIN R 100 UNIT/ML 3ML) INSULIN SLIDING SCAL... ACHS SQ 04/22/25 21:00 04/24/25 16:16 DC 04/24/25 11:18 8 UNIT Insulin Human Regular (humuLIN R 100 UNIT/ML 3ML) INSULIN SLIDING SCAL... ACHS SQ 05/05/25 07:30 06/04/25 07:29 05/12/25 20:58 4 UNIT Insulin Human Regular (humuLIN R 100 UNIT/ML 3ML) INSULIN SLIDING SCAL... ACHS SQ 04/24/25 16:30 04/25/25 14:09 DC 04/25/25 11:57 16 UNIT Insulin Human Regular (humuLIN R 100 UNIT/ML 3ML) INSULIN SLIDING SCAL... ACHS SQ 04/25/25 16:30 05/04/25 23:42 DC 05/04/25 20:49 6 UNIT Insulin Human Regular (humuLIN R 100 UNIT/ML 3ML) INSULIN SLIDING SCAL... Q4H SQ 04/27/25 20:30 04/28/25 09:11 DC 04/28/25 06:00 4 UNIT Lactated Ringer's 1,000 ml @ 100 mls/hr Q10H IV 04/22/25 20:00 04/23/25 10:09 DC 04/23/25 06:00 100 MLS/HR Lactulose (Constulose 20gm/ 30ml Udcup) 30 gm TID PO 04/25/25 11:00 04/30/25 09:45 DC 04/30/25 09:16 30 GM Levothyroxine Sodium (SYNTHroid 125MCG TAB) 125 mcg DAILY@0630 PO 04/25/25 06:30 05/25/25 06:29 05/15/25 05:57 125 MCG Lidocaine (Lidoderm Patch 5%) 1 patch Q24H TP 05/12/25 05:00 06/11/25 04:59 05/15/25 05:57 1 PATCH Lisinopril (Prinivil 10mg) 10 mg DAILY PO 05/02/25 09:00 05/13/25 08:46 DC 05/12/25 09:13 10 MG Magnesium Sulfate 50 ml @ 0 mls/hr PROTOCOL PRN IV OTHER [SEE ORDER COMMENTS] 04/22/25 20:00 05/22/25 19:59 Methylprednisolone Sodium Succinate (Solu-medROL 125MG) 125 mg Q6H IVP 04/23/25 08:00 04/28/25 09:10 DC 04/25/25 09:45 125 MG Metoprolol Succinate (TopROL XL) 50 mg AM PO 04/25/25 09:00 05/25/25 08:59 05/13/25 08:48 50 MG Norepinephrine 250 ml @ 0 mls/hr AD PRN IV DIRECTED 05/14/25 23:30 06/13/25 23:29 05/14/25 23:17 0 MLS/HR Nystatin (NystOP 15 GM POWDER) apply abdominal fold/perineum BID TP 05/09/25 21:00 06/08/25 20:59 05/14/25 20:15 1 APPL Ondansetron HCl (zoFRAN 4MG INJ) 4 mg Q6H PRN IV NAUSEA/VOMITING 04/22/25 20:00 05/22/25 19:59 04/22/25 20:10 4 MG Pantoprazole Sodium (PROTonix 40MG INJ) 40 mg DAILY IVP 04/24/25 10:00 05/11/25 08:11 DC 05/10/25 09:09 40 MG Pantoprazole Sodium (PROTonix 40MG TAB) 40 mg DAILY PO 05/11/25 09:00 06/10/25 08:59 05/14/25 08:06 40 MG Pharmacy Profile Note (Pharmacy Communication) 1 each ONCE MISC 05/01/25 08:00 04/30/25 16:52 DC Pharmacy Profile Note (Pharmacy Communication) 1 each ONCE MISC 05/03/25 12:00 05/03/25 12:58 DC Pharmacy Profile Note (Pharmacy Communication) 1 each ONCE MISC 05/09/25 13:00 05/09/25 13:42 DC Potassium Chloride 100 ml @ 100 mls/hr AD PRN IV POTASSIUM PROTOCOL 04/22/25 20:00 05/22/25 19:59 Potassium Chloride (K-Dur/Klor-Con 20meq) 20 meq AD PRN PO POTASSIUM PROTOCOL 04/22/25 20:00 05/22/25 19:59 05/03/25 13:10 20 MEQ Potassium Chloride (KCl 10% Elixir 20meq/15ml) 20 meq AD PRN PO POTASSIUM PROTOCOL 04/22/25 20:00 05/22/25 19:59 Pramipexole Dihydrochloride (miraPEX 0.25MG TAB) 0.5 mg HS PO 04/24/25 21:00 05/24/25 20:59 05/14/25 20:13 0.5 MG Pregabalin (LYRica 25MG) 25 mg BID PO 05/01/25 21:00 05/05/25 07:22 DC 05/04/25 09:22 25 MG Pregabalin ([id number]) 75 mg BID PO 04/24/25 21:00 04/24/25 14:49 DC Sodium Chloride 500 ml @ 0 mls/hr Q0M IV 04/25/25 11:00 05/25/25 10:59 Sodium Zirconium Cyclosilicate (Lokelma 10gm Powder) 10 gm TID PO 04/23/25 21:00 04/23/25 14:11 DC Tramadol HCl (UltRAM) 50 mg Q6H PRN PO MODERATE PAIN (4-6) 05/11/25 22:00 05/16/25 21:59 05/12/25 22:31 50 MG Tramadol HCl (UltRAM) 50 mg Q6H PRN PO MODERATE PAIN (4-6) 04/24/25 22:30 04/29/25 22:29 DC 04/28/25 13:55 50 MG Trimethoprim/ Sulfamethoxazole (BactRIM DS) 1 tab BID PO 04/25/25 21:00 04/26/25 14:50 DC 04/25/25 21:51 1 TAB Vancomycin HCl 250 ml @ 125 mls/hr Q12H IV 04/24/25 23:00 04/25/25 12:36 DC 04/25/25 11:43 125 MLS/HR Vancomycin HCl 250 ml @ 125 mls/hr Q12H IV 04/26/25 15:30 04/28/25 03:13 DC 04/27/25 15:22 125 MLS/HR Vancomycin HCl 250 ml @ 125 mls/hr Q12H IV 04/28/25 15:30 04/28/25 18:53 DC Vancomycin HCl 250 ml @ 125 mls/hr Q12H IV 04/28/25 20:00 05/02/25 20:34 DC 05/02/25 10:21 125 MLS/HR Vancomycin HCl 250 ml @ 125 mls/hr Q12H9 IV 05/04/25 21:00 05/08/25 20:49 DC 05/08/25 08:48 125 MLS/HR Vancomycin HCl (Vancomycin 750mg) 750 mg Q12H IVPB 05/08/25 21:00 05/09/25 13:30 DC 05/09/25 09:45 750 MG Vancomycin HCl (Vancomycin Protocol) 1 each AD IV 04/24/25 10:30 04/25/25 12:36 DC Vancomycin HCl (Vancomycin Protocol) 1 each AD IV 04/26/25 15:00 05/09/25 13:30 DC Venlafaxine HCl (EffEXOR XR 37.5mg CAP) 37.5 mg DAILY PO 04/24/25 16:00 05/05/25 11:18 DC 05/04/25 09:21 37.5 MG Venlafaxine HCl (EffEXOR XR 37.5mg CAP) 37.5 mg DAILY PO 04/25/25 09:00 04/24/25 14:50 DC Venlafaxine HCl (EffEXOR XR 37.5mg CAP) 37.5 mg HS PO 05/05/25 21:00 06/04/25 20:59 05/14/25 20:13 37.5 MG DIAGNOSTICS / RADIOLOGY: [place] [address] IMAGING REPORT Signed PATIENT: LUCÍA CATALAN MR#: [id number] : 1970 SEX: F AGE: 54 LOCATION: 2BH ORDER STATUS: ADM IN REPORT#: [id number] SERVICE 1220 REASON: new trialysis placement ORDERING PHYSICIAN: OSCAR DUGAN PROCEDURE: CXR1VW - CHEST 1VW EXAM: CR Chest, 1 view CLINICAL HISTORY: Line placement. COMPARISON: Chest radiograph dated 05/14/2025. FINDINGS: There is a right-sided central catheter with its tip in the superior vena cava. Stable cardiomegaly with stable mild diffuse interstitial edema. No pleural effusion or pneumothorax. No acute osseous abnormality. IMPRESSION: Satisfactory position of the right-sided central catheter. Stable cardiomegaly with stable mild interstitial edema. 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 Suspected Endocarditis, RAMAN deferred due to bleeding risks; unable to rule out endocarditis Status post nephrostomy tube Renate intertrigo, resolved Infectious spondylodiscitis L2-L3 Sepsis, unable to determine POA Acute hypoxic hypercapnic respiratory failure, not POA, resolved AMS due to suspected steroid induced psychosis or hepatic encephalopathy, not POA, resolved Hyperammonemia due to cirrhosis, Suspected Intractable low back pain due to spinal stenosis POA Acute urinary tract infection due to MRSA POA Hypervolemic hyponatremia POA Chronic anemia POA Hyponatremia POA Acute kidney injury on renal insufficiency POA Hyperglycemia due to uncontrolled diabetes POA Hypocalcemia POA Cirrhotic liver with splenomegaly consistent with portal hypertension per CT POA Esophageal varices Renal parenchymal disease per CT POA Hypothyroidism POA Hyperlipidemia POA Hypertension POA Anxiety disorder POA Depression POA Restless leg syndrome POA Suspected obstructive sleep apnea untreated POA Morbid obesity POA PLAN: Persistent MRSA bacteremia, * Gram positive cocci positive (MRSA) as of 05/14/25 * The patient was transferred to ICU due to clinical deterioration * Consulted critical Care team * Currently receiving daptomycin (Day 7) and ceftaroline (Day 7) per Infectious Disease (ID) recommendations. * WBC tagged scan, awaiting the final reports * Maintain contact precautions for infection control * PICC line has been removed * Monitor for creatine kinase level * Repeat blood cultures per Infectious Disease protocol to monitor clearance of bacteremia. Hyperkalemia * Potassium level was 6.7 and repeat potassium is 5.8 * Repeat BMP in 6 hours * Plan to do EKG and monitor heart rhythms * She was given calcium gluconate and Kayexalate, * Continue monitoring potassium and other electrolytes Osteomyelitis of L2-L3 POA * MRI showed: Intradiscal collection with extension into the epidural space and to the prevertebral space at the L2-L3 level, concerning for spondylodiscitis. (05/13/25) * Dr Sanchez has been consulted for further evaluation and management, As per Dr. Singh's, patient's critical condition was discussed with staff, and family. Surgical drainage remains an option, but patient requires medical optimization 1st: Planned made for aggressive medical management. * MRI showed: Supraspinatus tendinosis with high-grade partial-thickness bursal sided tear at the myotendinous junction. Infraspinatus tendinosis with low- grade partial-thickness bursal sided tear at the footplate.Subscapularis tendinosis without high-grade tear.Mild acromioclavicular and glenohumeral osteoarthritis.Mild subacromial/subdeltoid bursitis.Findings which can be seen in the setting of adhesive capsulitis. (04/28/25) Acute renal failure * As per Nephrology: Patient with worsening renal function, persistent hyperkalemia and oliguria: Dialysis recommended and done, 1500 ml removed. * Started on lokelma 10g for 48 hours * Creatinine trending up from 1.2<1.5<1.8<1.9<2.6<3.2<4.4 * FENa <0.1 % * Started on Sevelamer 800 mg for hyperphosphatemia * We will avoid nephrotoxic drugs including NSAID. Thrombocytopenia due to ITP * D-dimer 6512 (05/14/25) * DIC panel workup showed D dimer 7068, Fibrinogen 102, APTT 43.3, PT 16.9 and INR 1.68. (05/11/25) * Vitamin K 10 mg has been given * As per Dr Lorenzo, trying to get her Promacta when available (medicine that raises the platelets) * V/Q scan unable to perform as she couldn't lie flat. * Platelets has been transfused * Continue to follow Hematology recommendations for ongoing management of thrombocytopenia. * Monitor platelet counts daily. * Monitor for bleeding or thrombotic complications. Altered Mental Status due to Hepatic Encephalopathy Suspected * Her ammonia level is less than 10 * Monitor ammonia levels, mental status, and signs of worsening encephalopathy. * Monitor neuro status and reassess mental status regularly with steroid adjustments. Intractable lower back pain, resolving * Per Dr. Sanchez, possible diagnosis of discitis and osteomyelitis at L2-L3 along with psoas inflammation. * Continue multimodal pain management: acetaminophen, topical agents * Pregabalin will be discontinued due to concern for possible medication-induced slurred speech. CT head showed no evidence of acute intracranial abnormalities . * Neuro checks q4 Cirrhosis with portal hypertension * IV albumin given every 8 hours, possible hepatorenal syndrome * LFT trending up with total bilirubin 4.3, AST 275, ALT 178 and ALT 641. * Ultrasound revealed increased echogenicity of the right kidney which may reflect renal parenchymal disease. * Fecal occult blood test positive * Liver functions improving * Monitor for decompensation: encephalopathy, ascites, variceal bleeding. * Consider beta sergio for variceal prophylaxis. * Monitor LFTs, INR, and ammonia * Her MELD- Na score is 24 points, 14-15% estimated 90 day mortality Acute UTI, resolved * Monitor for signs of urosepsis * Encourage hydration and bladder care Hyponatremia, resolved * Monitor serum Na closely; consider fluid restriction if dilutional. Renate intertrigo, resolved * Patient is improved significantly * The patient was given fluconazole 150 mg 1 dose today, gradually resolving Hyperglycemia (Uncontrolled Diabetes) * Lantus is 30 units daily as per endocrinology recommendations, and continue for regular insulin 10 units TIDAC before meals. * Blood glucose level is trending down to 106 * Monitor blood glucose QID * Educate on diet and insulin compliance; monitor for DKA if concern. * Correct electrolytes accordingly. Chronic anemia * H/o esophageal varices due to cirrhosis with portal hypertension * Per GI, hold off on EGD given no overt GI bleeding and stable hemoglobin * Monitor trends, H&H daily * Avoid transfusion unless symptomatic or Hgb <7. We will order morning labs. Further orders per hospitalization course. We will Closely monitor the patient ATTESTATION BY PHYSICIAN I have seen and examined the patient. I reviewed the documentation, medical decision making, and treatment plan as noted by the resident provider above. I agree with the findings and plan of care. Cory Pimentel MD [facility],YOLANDA PERSAUD May 15, 2025 08:23 KALI ALBERT MD May 15, 2025 17:13
[2025-05-15] MEDS: NA ZIRCON CYCLOSIL(LOKELMA 10GM) PO SCH (09:00)
--- NOTE | 2025-05-15 09:30 | EKG ---
[facility] Test Date: 2025-05-15 Test Time: 09:30:03 Pat Name: LUCÍA GOODMAN Department: [facility] Room: 208 1 Gender: F Hris Manager: [id number] : 1970 Requested By: YOLANDA CHOW Order Number: [id number] Reading MD: Camilo Read Measurements Intervals Xenia Rate: 97 P: 30 HI: 160 QRS: -23 QRSD: 98 T: 26 QT: 358 QTc: 454 Interpretive Statements Normal sinus rhythm Minimal voltage criteria for LVH, may be normal variant Compared to ECG 05/14/2025 18:00:24 Left ventricular hypertrophy now present Electronically Signed On 05-18-2025 23:54:11 CDT by Camilo Read Please click the below link to view image of tracing.
--- NOTE | 2025-05-15 09:37 | PN ---
SUBJECTIVE: The patient was transferred to the ICU for respiratory distress. She was on BiPAP. For some reason, she is on Precedex now, very lethargic. REVIEW OF SYSTEMS: Unobtainable currently. PHYSICAL EXAMINATION: GENERAL: Shows older woman. VITAL SIGNS: Blood pressure 155/64, respiratory rate 20. HEENT: Benign. CHEST: Shows decreased breath sounds. HEART: Regular rate and rhythm. ABDOMEN: Soft. EXTREMITIES: Show no edema. NEUROLOGIC: Lethargic. IMPRESSION: MRSA bacteremia, persistent; acute hypoxic hypercarbic respiratory failure; encephalopathy; infectious diskitis, L2-L3; intractable back pain; moderate hydronephrosis, status post nephrostomy tube; liver cirrhosis with elevated ammonia; ITP; anemia; acute kidney injury; cirrhosis of the liver; lupus; hyperlipidemia; anxiety; restless legs; obesity. PLAN: Continue medical management. Continue antibiotics. Code status was addressed. TID: [id number] RECEIPT: [id number]
[2025-05-15] MEDS: ALBUMIN HUMAN 25% 100 ML IV SCH (09:44)
--- NOTE | 2025-05-15 10:09 | PN ---
FOLLOWUP PROGRESS NOTE SUBJECTIVE: A 54-year-old female has had a prolonged hospital course. The patient initially admitted to the hospital with acute renal failure. The patient was found to have persistent bacteremia. Workup was consistent with osteomyelitis. The patient has had worsening renal dysfunction over the past few days. The patient is now transferred to the ICU with encephalopathy as well as significant hyperkalemia and I did discuss the case in detail with the patient's and the patient is being seen as a followup visit for all the above. REVIEW OF SYSTEMS: She is unable to give any review of systems at this time. OBJECTIVE: VITAL SIGNS: Blood pressure is 115/79, pulse 60, she is afebrile. GENERAL: She is a chronically much older than appearing female, lying in bed on the medical floor. HEENT: Head is atraumatic. Pupils are equal, roving to light. Oropharynx is without exudate. Nares clear. NECK: There is no JVP. There is no thyromegaly, no mass. CARDIOVASCULAR: Regular. There is no S3 or S4 gallop. LUNGS: Coarse with equal thoracic movement. ABDOMEN: Soft, nondistended and nontender. EXTREMITIES: Reveal no clubbing, no cyanosis. NEUROLOGICAL: She is awake, she is alert. LABORATORY DATA: Sodium 131, potassium 6.7, BUN 80, creatinine is 4, hemoglobin 7.4, hematocrit 23. IMPRESSION: * Acute renal failure. * Hyperkalemia. * Persistent bacteremia with osteomyelitis. * Thrombocytopenia. PLAN: I did have a long discussion with the patient's . The patient now with worsening renal dysfunction and persistent hyperkalemia, patient with oliguria. No other options other than proceed with dialysis. Family is to discuss in regards to DNR status. We will discuss with the ICU team and we will follow the patient closely. TID: [id number] RECEIPT: [id number]
[2025-05-15 11:39] LABS: CREATININE 4.9 mg/dL (0.5-1.0); GLOMERULAR FILTR. RATE CALC 10.0 mL/min (>90); GLUCOSE,RANDOM 174.0 mg/dL (70-105); SODIUM SERUM 132.0 mmol/L (136-145)
[2025-05-15 11:49] LABS: UREA NITROGEN, BLOOD 79.0 mg/dL (7-18)
--- NOTE | 2025-05-15 14:05 | HMCIMG ---
EXAM: CR Chest, 1 view CLINICAL HISTORY: Line placement. COMPARISON: Chest radiograph dated 05/14/2025. FINDINGS: There is a right-sided central catheter with its tip in the superior vena cava. Stable cardiomegaly with stable mild diffuse interstitial edema. No pleural effusion or pneumothorax. No acute osseous abnormality. IMPRESSION: Satisfactory position of the right-sided central catheter. Stable cardiomegaly with stable mild interstitial edema. /[place]
[2025-05-15 15:23] LABS: % IRON SATURATION 63.3 % (22-44); IRON, SERUM 83.0 mcg/dL (50-170)
[2025-05-15 15:30] LABS: CREATININE 3.7 mg/dL (0.5-1.0); GLOMERULAR FILTR. RATE CALC 14.0 mL/min (>90); GLUCOSE,RANDOM 133.0 mg/dL (70-105); LDL DIRECT 45.0 mg/dL (0-99); SODIUM SERUM 133.0 mmol/L (136-145); UREA NITROGEN, BLOOD 56.0 mg/dL (7-18)
[2025-05-15 15:57] LABS: HIV 1&2 ANTIBODY Non-Reactive (Negative)
[2025-05-15 16:13] LABS: NUCLEATED RED BLOOD CELLS 0.7 % (0.0-0.19); PLATELET COUNT (AUTO) 28.0 K/uL (130-400); RED BLOOD CELL COUNT(AUTO) 2.55 MIL/uL (4.00-5.50); RED CELL DISTRIBUTION WIDTH 29.1 % (11.0-15.5); WHITE BLOOD COUNT (AUTO) 13.8 K/uL (4.8-10.8)
--- NOTE | 2025-05-15 17:41 | PN ---
INFECTIOUS DISEASE PROGRESS NOTE Date of Service: May 15, 2025 SUBJECTIVE: Patient was seen in the ICU room 208. During rounding today patient was very restless in bed. Dyspnea observe and per report patient is refusing the BiPAP. Currently is on oxygen via nasal cannula at 2 L/min. Renal function continues to decline, during rounding today the BUN was 79 and creatinine of 4.9 and family has agreed to proceed with initiating dialysis and patient is scheduled for a Trialysis placement. Dr. Sanchez re- evaluated patient for epidural abscess and surgery is not an option at this time due to patient is medically unstable. The preliminary results of the blood cultures collected on 05/13/2025 is growing Staphylococcus aureus. A urinalysis collected on 05/13/2025 is also positive. Continues on daptomycin and Teflaro. We will continues to follow patient's care. PHYSICAL EXAM EYES: Anicteric. Pupils equal and reactive. HENT: No oral thrush seen, moist Oral mucosa NECK: Supple, no JVD or thyromegaly. LUNGS: Good air entry. No rales, no rhonchi. Labored breathing. Oxygen support. CARDIOVASCULAR: S1, S2 regular. No murmur heard. ABDOMEN: Soft, non tender, bowel sounds present, no organomegaly. SKIN: No rashes, no swelling. LYMPHATICS: No peripheral lymphadenopathy MUSCULOSKELETAL: No joint swelling, erythema or tenderness. EXTREMITIES: No cyanosis or clubbing. Generalized weakness. BACK: No deformity, no pressure ulcer. Right nephrostomy tube. GENITOURINARY: No dysuria or hematuria, Nolasco catheter. Vital Sign (Last 12 Hours) 05/15/25 05/15/25 05/15/25 05/15/25 05:32 05:37 05:47 05:52 Pulse 63 63 66 62 Resp 29 21 27 27 B/P (MAP) 101/40 (60) 102/39 (60) 107/52 (70) 105/54 (71) Pulse Ox 100 100 99 100 05/15/25 05/15/25 05/15/25 05/15/25 05:57 06:07 06:22 06:37 Pulse 65 68 66 67 Resp 18 25 29 22 B/P (MAP) 101/52 (68) Pulse Ox 99 99 100 100 05/15/25 05/15/25 05/15/25 05/15/25 06:40 06:46 06:52 06:57 Pulse 70 74 75 67 Resp 26 19 21 21 B/P (MAP) 151/62 (91) 141/43 (75) 127/64 (85) 115/29 (57) Pulse Ox 99 100 99 99 05/15/25 05/15/25 05/15/25 05/15/25 07:02 07:03 07:15 07:17 Pulse 69 77 70 69 Resp 15 25 25 17 B/P (MAP) 107/42 (63) 103/46 (65) Pulse Ox 100 99 FiO2 30 05/15/25 05/15/25 05/15/25 05/15/25 07:32 07:47 07:55 08:00 Temp 98.4 Pulse 87 95 94 96 Resp 29 22 23 B/P (MAP) 94/44 (61) 92/55 (67) 115/42 (66) Pulse Ox 99 99 99 05/15/25 05/15/25 05/15/25 05/15/25 08:00 08:00 08:13 08:33 Temp 98.4 Pulse 91 96 Resp 20 23 B/P (MAP) 127/46 (73) 113/75 (88) Pulse Ox 99 99 99 O2 Delivery Nasal Cannula* O2 Flow Rate 2 FiO2 28 05/15/25 05/15/25 05/15/25 05/15/25 08:58 09:13 09:28 09:58 Pulse 91 97 95 95 Resp 18 18 18 21 B/P (MAP) 170/62 (98) 116/46 (69) 144/62 (89) 109/46 (67) Pulse Ox 99 99 99 99 05/15/25 05/15/25 05/15/25 05/15/25 10:13 10:28 10:36 10:43 Pulse 94 97 94 95 Resp 20 17 24 17 B/P (MAP) 162/70 (100) 138/49 (78) 97/47 (64) Pulse Ox 99 98 99 O2 Delivery N/Cannula Low lpm O2 Flow Rate 2.0 FiO2 28 25 05/15/25 05/15/25 05/15/25 11:04 11:13 11:28 11:43 Pulse 96 91 92 91 Resp 21 22 24 19 B/P (MAP) 87/50 (62) 94/45 (61) 97/49 (65) 98/49 (65) Pulse Ox 99 98 99 98 05/15/25 05/15/25 05/15/25 05/15/25 11:58 12:00 12:00 13:02 Temp 98.4 98.6 98.4 Pulse 97 92 Resp 28 20 B/P (MAP) 123/54 (77) 110/42 Pulse Ox 98 97 98 O2 Delivery Nasal Cannula* Nasal Cannula O2 Flow Rate 2 2.0 FiO2 28 05/15/25 05/15/25 05/15/25 05/15/25 13:15 13:30 13:45 14:00 Temp 98.2 Pulse 90 90 90 90 Resp 16 16 16 16 B/P (MAP) 106/65 106/65 106/65 106/65 Pulse Ox 98 98 98 98 O2 Delivery Nasal Cannula Nasal Cannula Nasal Cannula Nasal Cannula O2 Flow Rate 2.0 2.0 2.0 2.0 05/15/25 05/15/25 05/15/25 05/15/25 14:15 14:30 14:45 15:00 Pulse 90 90 90 90 Resp 16 16 16 16 B/P (MAP) 99/63 91/55 116/42 119/56 Pulse Ox 98 98 98 98 O2 Delivery Nasal Cannula Nasal Cannula Nasal Cannula Nasal Cannula O2 Flow Rate 2.0 2.0 2.0 2.0 05/15/25 15:25 Temp 98.2 Pulse 93 Resp 14 B/P (MAP) 129/55 Pulse Ox 96 O2 Delivery Nasal Cannula O2 Flow Rate 2.0 Intake & Output (last 24hrs) 05/14/25 05/14/25 05/15/25 15:00 23:00 07:00 Intake Total 419.1 ml 249.9 ml Output Total 175 ml Balance 419.1 ml 74.9 ml LABS: Laboratory: Test 05/15/25 15:51 05/15/25 15:50 05/15/25 14:11 05/15/25 08:40 Range/Units Whole Blood Glucose 121 H 70-110 MG/DL White Blood Count 13.8 #H 4.8-10.8 K/uL Red Blood Count 2.55 L 4.00-5.50 MIL/uL Hemoglobin 6.9 *L 12.0-16.0 g/dL Hematocrit 22.4 L 36-48 % Mean Corpuscular Volume 87.8 79-99 fL Mean Corpuscular Hemoglobin 27.1 27.0-33.0 pg Mean Corpuscular Hemoglobin Concent 30.8 L 32.0-36.0 g/dL Red Cell Distribution Width 29.1 H 11.0-15.5 % Platelet Count 28 L 130-400 K/uL Mean Platelet Volume 9.8 7.5-10.5 fL Nucleated Red Blood Cells 0.7 H 0.0-0.19 % Sodium Level 133 L 136-145 mmol/L Potassium Level 4.7 3.5-5.1 mmol/L Chloride Level 100 L 101-111 mmol/L Carbon Dioxide Level 24 21-32 mmol/L Blood Urea Nitrogen 56 #H 7-18 mg/dL Creatinine 3.7 H 0.5-1.0 mg/dL Glomerular Filtration Rate Calc 14 >90 mL/min Random Glucose 133 H 70-105 mg/dL Hemoglobin A1c 7.8 H 4.0-6.0 % Estimated Average Glucose (eAG) 177 H 70-126 mg/dL Total Calcium 8.0 L 8.5-10.1 mg/dL Iron Level 83 # 50-170 mcg/dL Total Iron Binding Capacity 131 L 250-450 mcg/dL Percent Iron Saturation 63.3 H 22-44 % Ferritin 371 H 15-150 ng/mL Albumin 2.3 L 3.5-5.0 g/dL Triglycerides Level 101 30-200 mg/dL Cholesterol Level 69 # <200 mg/dL LDL Cholesterol 45 0-99 mg/dL HDL Cholesterol 12 L 35-85 mg/dL HIV (1&2) Antibody Non-Reactive Negative HIV P24 Antigen, Qualitative Non-Reactive Negative Lactic Acid Level 4.7 H 0.8-2.5 mmol/L Test 05/15/25 07:19 05/15/25 06:02 05/14/25 18:19 05/14/25 04:21 Range/Units Blood Gas Specimen Type Arterial Arterial Blood pH 7.306 L 7.350-7.450 Arterial Blood Partial Pressure CO2 37 32-45 mmHg Arterial Blood Partial Pressure O2 111.7 H 83.0-108.0 mmHg Arterial Blood HCO3 17.9 L 21.0-28.0 mmol/L Arterial Blood Oxygen Saturation 97.7 94.0-98.0 % Arterial Blood Base Excess -7.7 L -2.0-3.0 mmol/L Hemoglobin (Blood Gas) 8.5 L 12.0-16.0 g/dL Sodium (Blood Gas) 132 L 136-145 MMOL/L Bedside Potassium (Blood Gas) 6.3 *H 3.4-4.5 MMOL/L Bedside Chloride (Blood Gas) 105 98-107 MMOL/L Bedside Glucose (Blood Gas) 136 H 65-95 MG/DL Bedside Ionized Calcium (Blood Gas) 1.14 L 1.15-1.33 MMOL/L Bedside Lactic Acid (Blood Gas) 2.29 H 0.36-0.75 MMOL/L Blood Gas Temperature 37.0 35.5-37.0 CELSIUS Blood Gas Respiration Rate 12.0 min. Blood Gas Vent Mode BIPAP 12 6 ROOM AIR FiO2 30.0 % Blood Gas Specimen Comment LR [place] RN Erythrocyte Sedimentation Rate 48 H 0-30 MM/HR Total Bilirubin 4.3 #H 0.2-1.0 mg/dL Aspartate Amino Transf (AST/SGOT) 275 H 10-37 U/L Alanine Aminotransferase (ALT/SGPT) 178 H 12-78 U/L Alkaline Phosphatase 641 *H 50-136 U/L Ammonia 16 11-32 umol/L C-Reactive Protein, Quantitative 89.40 H 0.5-3.0 mg/L Total Protein 7.5 6.0-8.3 g/dL Procalcitonin 2.03 H 0.05-0.5 ng/mL D-Dimer Quantitative (PE/DVT) 6512 *H 0-500 ng/mL Phosphorus Level 6.9 H 2.5-4.9 mg/dL Magnesium Level 2.00 1.80-2.40 mg/dL Troponin I High Sensitivity 28 4-50 ng/L B-Type Natriuretic Peptide 125 H 0-100 pg/mL Immature Granulocyte % (Auto) 0.9 0-1 % Neutrophils (%) (Auto) 79.2 H 40.0-77.0 % Lymphocytes (%) (Auto) 8.4 L 21.0-51.0 % Monocytes (%) (Auto) 9.6 3.0-13.0 % Eosinophils (%) (Auto) 1.8 0.0-8.0 % Basophils (%) (Auto) 0.1 0.0-5.0 % Neutrophils # (Auto) 6.7 1.8-7.7 K/uL Lymphocytes # (Auto) 0.7 L 1.0-4.8 K/uL Monocytes # (Auto) 0.8 0.1-1.0 K/uL Eosinophils # (Auto) 0.15 0.00-0.70 K/uL Basophils # (Auto) 0.01 0.00-0.20 K/uL Absolute Immature Granulocyte (auto 0.08 0-1 K/uL Total Creatine Kinase 579 *H 21-232 U/L Test 05/13/25 22:16 Range/Units Urine Color YELLOW YELLOW Urine Appearance CLOUDY H CLEAR Urine pH 5.5 5.0-8.0 Urine Specific [place] 1.014 1.001-1.031 Urine Protein 100 H NEGATIVE mg/dL Urine Glucose (UA) TRACE H NEGATIVE mg/dL Urine Ketones NEGATIVE NEGATIVE mg/dL Urine Occult Blood LARGE H NEGATIVE Urine Nitrate NEGATIVE NEGATIVE Urine Bilirubin NEGATIVE NEGATIVE mg/dL Urine Urobilinogen 0.2 0.2-1.0 mg/dL Urine Leukocyte Esterase 25 H NEGATIVE Que/uL Urine RBC TNTC H 0-1 /HPF Urine WBC 26-50 H 0-1 /HPF Urine WBC Clumps (Auto) FEW 0-1 /HPF Urine Bacteria RARE None Seen /HPF Urine Granular Casts (Auto) >100 H None Seen /LPF Urine Yeast FEW None Seen /HPF Urine Random Creatinine 56.37 30-135 mg/dL Urine Random Sodium 13 L 40-220 mmol/l ASSESSMENT: Persistent Methicillin-resistant Staphylococcus aureus bacteremia. Epidural abscess. Urinary tract infection with methicillin-resistant Staphylococcus aureus. L2 and L3 osteomyelitis. Right Hydronephrosis, s/p right nephrostomy tube placement on 04/29/2025. Non-ketotic hyperglycemia. Urinary retention requiring Nolasco catheter placement. Morbid obesity. Thrombocytopenia requiring platelet transfusion. Acute renal failure. Diabetes mellitus. Debility. PLAN:. Continue daptomycin IV Continue Teflaro IV. Continue critical care support. Neurosurgeon has re-evaluate patient and not medically stable at this time for surgical intervention. Dictaphone Transcriber following patient and patient is scheduled for a Trialysis placement to initiate dialysis. Continue GI prophylaxis. Continue antidiabetic. Continue oxygen support. Patient will need 6 weeks of IV antibiotics. This case was reviewed and discussed with my supervising physician and the above assessment and plan was formulated and agreed upon. ATTESTATION BY PHYSICIAN I have seen and examined the patient. I reviewed the documentation, medical decision making, and treatment plan as noted by the mid-level provider above. I agree with the findings and plan of care. EDNA SOARES MD, [facility] May 15, 2025 17:41
--- NOTE | 2025-05-15 20:50 | PRN ---
This is a procedure note. Procedure performed: Trialysis catheter Indication: need for hemodialysis access Site: Right Internal Jugular vein. Description of procedure: Consent obtained. Hand hygiene. Time out done. Chlorhexidine was used to prepare the skin. Intraoperative US guidance was used during the procedure to localize vein and confirm placement of guidewire inside the vein prior to dilatation using sterile sheath to cover transducer to ensure sterility at all times. Regular triple lumen inserted with Seldinger technique on site specified above. Line secured at the hub. Patient tolerated procedure well. No immediate complications. Post procedure Chest x ray was ordered. OSCAR DUGAN May 15, 2025 20:50
--- NOTE | 2025-05-15 20:57 | PN ---
[facility] PROGRESS NOTE Date Patient Seen: May 15, 2025 Time of Visit: 20:51 Supervising Physician: [ ] PROBLEM LIST: MRSA bacteremia, POA, persistent Acute hypoxic hypercarbic respiratory failure on venous blood draw on 04/26/2025, resolved Encephalopathy due to suspected steroid induced psychosis or hepatic encephalopathy, not POA, resolved Infectious spondylodiscitis at the L and L3 intervertebral disc Intractable low back pain due to spinal stenosis, POA Moderate right hydronephrosis US 04/24/25 w/ urinary bladder retention S/P FC S/P Right nephrostomy tube on 04/30/2025 Hyperammonemia due to cirrhosis 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, POA S/P IGG infusions on 04/30/2025 Acute urinary tract infection due to complicated cystitis 2/2 MRSA POA Hypervolemic hyponatremia, POA Chronic anemia, POA Hyponatremia, POA Acute kidney injury on renal insufficiency POA Hyperglycemia due to uncontrolled diabetes POA Hypocalcemia POA Cirrhotic liver with splenomegaly consistent with portal hypertension per CT POA Liver Lesion lesion that measures 1.3 x 1.1 x 1.7 cm in the right lobe on US Esophageal varices Renal parenchymal disease per CT, POA Hypothyroidism Hyperlipidemia Hypertension Anxiety disorder Depression Restless leg syndrome Suspected OHS Morbid obesity, BMI 47.5 INTERVAL HISTORY: Patient seen and examined. All labs/radiology reviewed. Patient more drowsy. Discussion with family at bedside. Platelets 31. Potassium 6.7. GFR 11. On levo. NC 3L. Nephro requesting HD cath. Plan Lengthy discussion with patient, patient's and daughter all at bedside. Family is currently discussing code status. Continue abx ID recs Follow nephro recs - HD cath, hemodialysis Repeat k levels Holding antihypertensives RAMAN CT head w/o contrast weaning pressors REVIEW OF SYSTEMS: Twelve point review of system reviewed with patient all permanent positives mentioned above otherwise negative PHYSICAL EXAM: GENERAL: Patient is awake alert and oriented x3. Cooperative and calm. HEENT: EOMI, Sclera non icteric, moist mucosa NECK: Supple, no JVD, trachea midline LUNGS: Clear breath sounds bilaterally. No wheezes HEART: Regular rate and rhythm. Normal S1 and S2, without murmurs ABD: Abdomen soft, nontender. Bowel sounds present EXT: No clubbing cyanosis or edema NEURO: AAOX3, follows commands Vital Signs (last 8hr) Date Time Temp Pulse Resp B/P (MAP) Pulse Ox O2 Delivery O2 Flow Rate FiO2 05/15/25 20:37 80 17 30 05/15/25 20:13 88 26 N/A Room Air 21 05/15/25 20:09 88 28 05/15/25 18:58 89 18 104/42 (62) 98 05/15/25 18:43 89 21 108/48 (68) 98 05/15/25 18:28 87 23 116/45 (68) 96 05/15/25 18:13 92 23 115/48 (70) 96 05/15/25 17:58 87 20 111/40 (63) 96 05/15/25 17:43 87 23 112/52 (72) 96 05/15/25 17:28 88 21 107/49 (68) 97 05/15/25 17:13 93 22 109/48 (68) 95 05/15/25 16:58 98.1 91 21 98/41 (60) 94 05/15/25 16:00 97 Room Air* 0 21 05/15/25 16:00 98.1 05/15/25 15:43 98 16 95/69 (78) 94 05/15/25 15:31 94 20 100/48 (65) 94 05/15/25 15:25 98.2 93 14 129/55 96 Nasal Cannula 2.0 05/15/25 15:13 95 22 113/47 (69) 97 05/15/25 15:00 90 16 119/56 98 Nasal Cannula 2.0 05/15/25 14:58 90 21 129/61 (83) 98 05/15/25 14:45 90 16 116/42 98 Nasal Cannula 2.0 05/15/25 14:43 91 24 119/56 (77) 99 05/15/25 14:30 90 16 91/55 98 Nasal Cannula 2.0 05/15/25 14:28 94 21 116/42 (66) 98 05/15/25 14:15 90 16 99/63 98 Nasal Cannula 2.0 05/15/25 14:13 92 22 91/44 (60) 97 05/15/25 14:00 90 16 106/65 98 Nasal Cannula 2.0 05/15/25 13:58 94 20 95/43 (60) 96 05/15/25 13:45 90 16 106/65 98 Nasal Cannula 2.0 05/15/25 13:43 101 17 100/51 (67) 98 05/15/25 13:30 90 16 106/65 98 Nasal Cannula 2.0 05/15/25 13:28 92 17 87/39 (55) 97 05/15/25 13:15 98.2 90 16 106/65 98 Nasal Cannula 2.0 05/15/25 13:13 85 17 106/50 (68) 98 05/15/25 13:07 92 20 113/51 (71) 98 05/15/25 13:02 98.4 92 20 110/42 98 Nasal Cannula 2.0 05/15/25 12:58 94 20 110/43 (65) 97 LABS: Hematology Labs: Test 05/15/25 15:50 05/15/25 06:02 05/14/25 04:21 Range/Units White Blood Count 13.8 #H 4.8-10.8 K/uL Red Blood Count 2.55 L 4.00-5.50 MIL/uL Hemoglobin 6.9 *L 12.0-16.0 g/dL Hematocrit 22.4 L 36-48 % Mean Corpuscular Volume 87.8 79-99 fL Mean Corpuscular Hemoglobin 27.1 27.0-33.0 pg Mean Corpuscular Hemoglobin Concent 30.8 L 32.0-36.0 g/dL Red Cell Distribution Width 29.1 H 11.0-15.5 % Platelet Count 28 L 130-400 K/uL Mean Platelet Volume 9.8 7.5-10.5 fL Nucleated Red Blood Cells 0.7 H 0.0-0.19 % Erythrocyte Sedimentation Rate 48 H 0-30 MM/HR Immature Granulocyte % (Auto) 0.9 0-1 % Neutrophils (%) (Auto) 79.2 H 40.0-77.0 % Lymphocytes (%) (Auto) 8.4 L 21.0-51.0 % Monocytes (%) (Auto) 9.6 3.0-13.0 % Eosinophils (%) (Auto) 1.8 0.0-8.0 % Basophils (%) (Auto) 0.1 0.0-5.0 % Neutrophils # (Auto) 6.7 1.8-7.7 K/uL Lymphocytes # (Auto) 0.7 L 1.0-4.8 K/uL Monocytes # (Auto) 0.8 0.1-1.0 K/uL Eosinophils # (Auto) 0.15 0.00-0.70 K/uL Basophils # (Auto) 0.01 0.00-0.20 K/uL Absolute Immature Granulocyte (auto 0.08 0-1 K/uL Chemistry Labs: Test 05/15/25 15:51 05/15/25 14:11 05/15/25 08:40 05/15/25 06:02 Range/Units Whole Blood Glucose 121 H 70-110 MG/DL Sodium Level 133 L 136-145 mmol/L Potassium Level 4.7 3.5-5.1 mmol/L Chloride Level 100 L 101-111 mmol/L Carbon Dioxide Level 24 21-32 mmol/L Blood Urea Nitrogen 56 #H 7-18 mg/dL Creatinine 3.7 H 0.5-1.0 mg/dL Glomerular Filtration Rate Calc 14 >90 mL/min Random Glucose 133 H 70-105 mg/dL Hemoglobin A1c 7.8 H 4.0-6.0 % Estimated Average Glucose (eAG) 177 H 70-126 mg/dL Total Calcium 8.0 L 8.5-10.1 mg/dL Iron Level 83 # 50-170 mcg/dL Total Iron Binding Capacity 131 L 250-450 mcg/dL Percent Iron Saturation 63.3 H 22-44 % Ferritin 371 H 15-150 ng/mL Albumin 2.3 L 3.5-5.0 g/dL Triglycerides Level 101 30-200 mg/dL Cholesterol Level 69 # <200 mg/dL LDL Cholesterol 45 0-99 mg/dL HDL Cholesterol 12 L 35-85 mg/dL Lactic Acid Level 4.7 H 0.8-2.5 mmol/L Total Bilirubin 4.3 #H 0.2-1.0 mg/dL Aspartate Amino Transf (AST/SGOT) 275 H 10-37 U/L Alanine Aminotransferase (ALT/SGPT) 178 H 12-78 U/L Alkaline Phosphatase 641 *H 50-136 U/L Ammonia 16 11-32 umol/L C-Reactive Protein, Quantitative 89.40 H 0.5-3.0 mg/L Total Protein 7.5 6.0-8.3 g/dL Procalcitonin 2.03 H 0.05-0.5 ng/mL Test 05/14/25 18:19 05/14/25 04:21 Range/Units Phosphorus Level 6.9 H 2.5-4.9 mg/dL Magnesium Level 2.00 1.80-2.40 mg/dL Troponin I High Sensitivity 28 4-50 ng/L B-Type Natriuretic Peptide 125 H 0-100 pg/mL Total Creatine Kinase 579 *H 21-232 U/L Coagulation Labs: Test 05/14/25 18:19 Range/Units D-Dimer Quantitative (PE/DVT) 6512 *H 0-500 ng/mL DIAGNOSTICS / RADIOLOGY RESULTS: [ ] PLAN NEURO: Minimize central acting medications as possible. Fall Precautions. Well lighted room through the day and minimize interruptions through the night t o prevent acute delirium. PULMONARY: Supplemental 02 as needed Titrate Fio2 to keep Spo2 > or = 90% DuoNebs and CPT as needed IS hourly while awake for pulmonary hygiene Out of bed to chair as tolerated VAP Bundle Vent/BIPAP Settings: [ ] Driving pressure: [ ] P Plat: [ ] Static C: [ ] Static R: [ ] P/F Ratio: [ ] CARDIOVASCULAR: Follow hemodynamics. Titrate vasopressor to keep MAP >65 or systolic blood pressure >95mmHg DIPS: None LINES: PIV GI & NUTRITION: Continue nutritional support Aspirations precautions Prokinetic agents and laxatives as needed KIDNEYS & ELECTROLYTES: Strict monitoring of intake and output Daily weights Avoid nephrotoxic agents Monitor electrolytes and replace as needed Goal urine output of 30mL/hr or 0.5mL/kg/hr Urine output: [ ] Fluid Balance: [ ] ENDOCRINE: Maintain blood glucose between 100-180 at all times. Insulin sliding scale for blood glucose management INFECTIOUS DISEASE: Trend temperature. [place]-culture if febrile. Micro: [ ] Urine culture-MRSA Blood culture-MRSA Antibiotics: Vancomycin HEMATOLOGY & COAGULATION: Monitor H&H. Keep Hgb > 7 Transfuse 1 unit of PRBC for Hgb < 7 Transfuse 1 pack of platelets of platelets < 20, 000 Watch for any signs and symptoms of bleeding SKIN: Pressure ulcer prevention per facility protocol Rehab: PT/OT Prophylaxis: GI: [ Protonix] DVT: SCDs for now no anticoagulation due to thrombocytopenia Code Status: Full Resuscitation Disposition: Medical-surgical Other: Total patient care time exceeds 35 minutes excluding all procedures. Case was discussed and seen with my supervising physician. The above plan was formulated and agreed upon. OSCAR DUGAN May 15, 2025 20:57
[2025-05-16] VITALS (101 sets, daily range): BP systolic 80–150; BP diastolic 25–85; PULSE 57–93; RESP 7–59; TEMP 97.6–98.3; O2SAT 93–100
[2025-05-16 04:25] LABS: HEPATITIS B SURFACE ANTIBODY Positive (Reactive)
[2025-05-16 04:58] LABS: IMMATURE GRANULOCYTE ABSOLUTE 0.10 K/uL (0-1); NUCLEATED RED BLOOD CELLS 0.5 % (0.0-0.19); PLATELET COUNT (AUTO) 17 K/uL (130-400); RED BLOOD CELL COUNT(AUTO) 2.31 MIL/uL (4.00-5.50); RED CELL DISTRIBUTION WIDTH 28.5 % (11.0-15.5); WHITE BLOOD COUNT (AUTO) 8.5 K/uL (4.8-10.8)
[2025-05-16] MEDS: CEFTAROLINE FOSAMIL ACETATE IV SCH (05:10)
[2025-05-16] MEDS: NACL 0.9% IV SCH (05:10)
[2025-05-16 05:31] LABS: ASPARTATE AMINOTRANSFERASE 239.0 U/L (10-37); CREATININE 4.3 mg/dL (0.5-1.0); GLOMERULAR FILTR. RATE CALC 12.0 mL/min (>90); GLUCOSE,RANDOM 171.0 mg/dL (70-105); PHOSPHORUS 7.6 mg/dL (2.5-4.9); SODIUM SERUM 136.0 mmol/L (136-145); TOTAL PROTEIN, SERUM 7.3 g/dL (6.0-8.3); UREA NITROGEN, BLOOD 73.0 mg/dL (7-18)
--- NOTE | 2025-05-16 07:47 | PN ---
LOCATION: 208. SUBJECTIVE: The patient remains stable overnight, drowsy. She is on CPAP. GFR is very low at 11%. Potassium is high. Not doing well. REVIEW OF SYSTEMS: Unobtainable. PHYSICAL EXAMINATION: GENERAL: Shows a middle-aged woman, on full supportive care. VITAL SIGNS: Blood pressure 108/48, pulse 67, respirations 20. HEENT: Benign. CHEST: Decreased breath sounds. HEART: Regular rate and rhythm. ABDOMEN: Soft. EXTREMITIES: Shows no edema. NEUROLOGIC: Sedated, lethargic, encephalopathic. LABORATORY DATA: Lab reviewed. Platelets down to 17,000. IMPRESSION: * MRSA bacteremia, persistent. * Acute hypoxic respiratory failure. * Encephalopathy. * Infected disks L2-L3. * Intractable back pain. * Moderate hydronephrosis of right kidney, status post nephrostomy tube. * Elevated ammonia. * ITP. * Urinary infection. * Hypovolemic. * Hyponatremia. * Anemia. * Renal failure. * Cirrhosis of the liver. * Varices. * Hypothyroidism. * Hypertension. * Depression. * Obstructive sleep apnea. * Obesity. PLAN: Continue supportive measures. She is on a modified code status. Really doing poorly, multi-system problems. TID: [id number] RECEIPT: [id number]
--- NOTE | 2025-05-16 09:20 | PN ---
DIALYSIS NOTE SUBJECTIVE: The patient is seen and evaluated on hemodialysis. Prescription noted. OBJECTIVE: VITAL SIGNS: Blood pressure 105/48. CARDIOVASCULAR: Regular. LUNGS: Coarse. IMPRESSION: End-stage renal disease. PLAN: The patient will continue with maximum ultrafiltration as blood pressure allows. The patient is to receive 1 unit of packed red blood cells with dialysis. I did discuss with the ICU team. I also discussed with the patient's family. TID: [id number] RECEIPT: [id number]
[2025-05-16 09:52] LABS: HEPATITIS B CORE AB TOTAL Reactive (Nonreactive)
[2025-05-16] MEDS ORDERED: FAMOTIDINE 20MG VIAL IV SCH (11:00)
--- NOTE | 2025-05-16 12:47 | NUR ---
[facility] ICU Skin Assessment: Patient S/P bipap removal on nasal cannula Per primary nurse, not assessed at this time per primary nurse patient with no wounds or skin breakdown reported. Assessment and recommendations provided to primary nurse. Education provided. Addendum: 05/16/25 at 1356 by KAROLYN BEATTY RN RN/ Amended: Links added.
--- NOTE | 2025-05-16 13:14 | NUR ---
Nutritional f/u Note: Chart, meds, and labs Reviewed. Pt now in ICU, Pt started HD as per MD. Pt continue on GI soft 75gm cc No tomatoes or meat. Abnormal nutrition related labs: k 5.3, bun/crea 73/4.3, phos 7.6, tbili 5.2, ast 239, alt 155, alk phos 509, alb 2.8, Nutrition-related Meds: Zofran, insulin, Synthroid, ultram, Wt Status: current wt 133.8kg previous wt 127kg, wt change may be due to method of weighing and/or fluid retention. Will continue to monitor for trend Recommend: -add Renal HD modifier to diet order. -Phosphate binder, Phos 7.6, -Nepro 1 can PRN -RD to provide further recommendations based on clinical progress. -Monitor feeding tolerance, %, wt, and labs -If No BM >3days consider bowel stimulant. - Please notify RD if additional nutrition concerns arise. Addendum: 05/16/25 at [address] Amended: Links added.
--- NOTE | 2025-05-16 13:22 | PN ---
Cardiology Progress Note Date of Service: 05/17/2025 Attending Mathematical Engineer: Dr. Camilo Read Primary Mathematical Engineer: Dr. Margaret Lorenzana Reason for Consult: Persistent bacteremia, concerning for bacterial endocarditis Problem List: -Persistent MRSA bacteremia - Subjective: This is a 54y/o female who was seen and evaluated in the ICU today. Vitals/Labs Vital Signs Date Time Temp Pulse Resp B/P (MAP) Pulse Ox O2 Delivery O2 Flow Rate FiO2 05/16/25 12:00 98 Bi-PAP+ 0 30 05/16/25 11:50 98.1 93 14 104/65 General: Lethargic. Chronically ill appearing. HEENT: Normocephalic, atraumatic. EOMI. Oral mucosa was moist. Neck: No masses, JVD, or carotid bruits noted. Lungs: SCM. Bilateral air entry. Coarse breath sounds noted throughout. Cardiac: Regular rate. Normal S1 and S2, +S4. No other obvious murmurs, rubs, or gallops noted. Abdomen: Obese abdomen. Soft, nontender, nondistended. No organomegaly. Normoactive bowel sounds x 4 quadrants. Extremities: Diffuse edema noted throughout. No clubbing or cyanosis. Diminished pulses noted throughout. Neuro: Unable to obtain. Laboratory Tests 05/15/25 14:11 05/15/25 15:50 05/16/25 04:46 Assessment: -Persistent MRSA bacteremia - Plan: 1. Persistent MRSA bacteremia -The patient is not a candidate to undergo a RAMAN due to her underlying esophageal varices, thrombocytopenia, anemia, and respiratory status. -Thus if there is a high suspicion for endocarditis, we recommend treating the patient's with 6 weeks of IV antibiotics. This case was discussed with my Supervising Physician, Dr. Camilo Read, and the above-mentioned plan was formulated and agreed upon. -Progress Note written by Sharlene Pike, MSN, WEB MARKETING ANALYST, AGACNP-BC SHARLENE PIKE NP May 16, 2025 13:22
--- NOTE | 2025-05-16 14:00 | PN ---
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 Intractable low back pain due to spinal stenosis, POA Moderate right hydronephrosis US 04/24/25 w/ urinary bladder retention S/P FC S/P Right nephrostomy tube on 04/30/2025 Hyperammonemia due to cirrhosis 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, POA S/P IGG infusions on 04/30/2025 Acute urinary tract infection due to complicated cystitis 2/2 MRSA POA Hypervolemic hyponatremia, POA Chronic anemia, POA Hyponatremia, POA Acute kidney injury on renal insufficiency POA Hyperglycemia due to uncontrolled diabetes POA Hypocalcemia POA Cirrhotic liver with splenomegaly consistent with portal hypertension per CT POA Liver Lesion lesion that measures 1.3 x 1.1 x 1.7 cm in the right lobe on US Esophageal varices Renal parenchymal disease per CT, POA Hypothyroidism Hyperlipidemia Hypertension Anxiety disorder Depression Restless leg syndrome Suspected OHS Morbid obesity, BMI 47.5 INTERVAL HISTORY: Patient seen and examined. All labs/radiology reviewed. Patient more drowsy. Discussion with family at bedside. Patient started on dialysis yesterday, day 1 with 1.5 L removed. Currently in hemodialysis day 2 Patient continues on BiPAP, Pending CT scan brain Hemoglobin is 6.3 this morning, pending 1 unit Platelets 17 also pending 1 unit Potassium was 5.3, we will follow and repeat labs post dialysis Patient requiring levo for BP during dialysis Plan Family discussing possible hospice services Continuing to follow ID recs, antibiotics, following cultures, Following neurosurgeon recommendations Following Nephrology recommendations BiPAP, follow ABG REVIEW OF SYSTEMS: Twelve point review of system reviewed with patient all permanent positives mentioned above otherwise negative PHYSICAL EXAM: GENERAL: Patient is awake alert and oriented x3. Cooperative and calm. HEENT: EOMI, Sclera non icteric, moist mucosa NECK: Supple, no JVD, trachea midline LUNGS: Clear breath sounds bilaterally. No wheezes HEART: Regular rate and rhythm. Normal S1 and S2, without murmurs ABD: Abdomen soft, nontender. Bowel sounds present EXT: No clubbing cyanosis or edema NEURO: AAOX3, follows commands Vital Signs (last 8hr) Date Time Temp Pulse Resp B/P (MAP) Pulse Ox O2 Delivery O2 Flow Rate FiO2 05/16/25 12:00 98 Bi-PAP+ 0 30 05/16/25 11:50 98.1 93 14 104/65 96 BIPAP 30 05/16/25 11:30 98.1 05/16/25 11:30 76 32 124/45 98 BIPAP 30 05/16/25 11:15 76 32 111/63 98 BIPAP 30 05/16/25 11:15 98.1 67 28 104/39 (60) 98 30 05/16/25 11:00 76 17 148/55 (86) 97 30 05/16/25 11:00 76 32 127/44 98 BIPAP 30 05/16/25 10:45 98.1 76 32 125/51 98 BIPAP 30 05/16/25 10:45 66 31 81/30 (47) 96 30 05/16/25 10:30 71 26 125/37 (66) 97 30 05/16/25 10:30 76 32 135/46 98 BIPAP 30 05/16/25 10:15 76 32 113/40 98 BIPAP 30 05/16/25 10:15 78 24 135/46 (75) 97 30 05/16/25 10:00 76 32 110/40 98 BIPAP 30 05/16/25 10:00 77 28 110/38 (62) 96 30 05/16/25 09:45 76 32 106/65 98 BIPAP 30 05/16/25 09:45 64 24 96/31 (52) 97 30 05/16/25 09:36 65 29 109/38 (61) 97 30 05/16/25 09:33 57 24 80/32 (48) 99 30 05/16/25 09:30 72 32 124/60 98 BIPAP 30 05/16/25 09:27 59 19 85/29 (47) 97 30 05/16/25 09:25 59 28 95/25 (48) 98 30 05/16/25 09:12 64 14 109/43 (65) 99 30 05/16/25 09:10 98.1 60 32 119/56 98 BIPAP 30 05/16/25 09:00 61 20 107/62 (77) 98 30 05/16/25 09:00 98.2 92 20 113/52 98 Nasal Cannula 2.0 05/16/25 08:45 61 20 113/38 (63) 99 30 05/16/25 08:30 62 12 108/38 (61) 98 30 05/16/25 08:15 65 10 111/32 (58) 99 30 05/16/25 08:00 97.9 05/16/25 08:00 67 20 109/47 (67) 98 30 05/16/25 08:00 96 Bi-PAP+ 0 30 05/16/25 07:45 97.9 68 19 113/49 (70) 99 30 05/16/25 07:30 68 13 99/50 (66) 98 30 05/16/25 07:15 67 20 107/44 (65) 99 30 05/16/25 07:00 64 15 104/44 (64) 99 30 05/16/25 06:50 69 25 30 05/16/25 06:30 67 23 105/48 (67) 99 30 05/16/25 06:15 65 17 103/49 (67) 99 30 05/16/25 06:00 72 20 110/43 (65) 100 30 LABS: Hematology Labs: Test 05/16/25 09:20 05/16/25 04:46 05/15/25 06:02 Range/Units Reticulocyte Count (auto) 4.61182 H 0.42-2.23 % Immature Reticulocyte Fraction 34.10 H 0.18-0.48 % White Blood Count 8.5 # 4.8-10.8 K/uL Red Blood Count 2.31 L 4.00-5.50 MIL/uL Hemoglobin 6.3 *L 12.0-16.0 g/dL Hematocrit 20.4 *L 36-48 % Mean Corpuscular Volume 88.3 79-99 fL Mean Corpuscular Hemoglobin 27.3 27.0-33.0 pg Mean Corpuscular Hemoglobin Concent 30.9 L 32.0-36.0 g/dL Red Cell Distribution Width 28.5 H 11.0-15.5 % Platelet Count 17 #L 130-400 K/uL Mean Platelet Volume 9.9 7.5-10.5 fL Immature Granulocyte % (Auto) 1.2 H 0-1 % Neutrophils (%) (Auto) 76.7 40.0-77.0 % Lymphocytes (%) (Auto) 8.9 L 21.0-51.0 % Monocytes (%) (Auto) 8.5 3.0-13.0 % Eosinophils (%) (Auto) 4.6 0.0-8.0 % Basophils (%) (Auto) 0.1 0.0-5.0 % Neutrophils # (Auto) 6.5 1.8-7.7 K/uL Lymphocytes # (Auto) 0.8 L 1.0-4.8 K/uL Monocytes # (Auto) 0.7 0.1-1.0 K/uL Eosinophils # (Auto) 0.39 0.00-0.70 K/uL Basophils # (Auto) 0.01 0.00-0.20 K/uL Absolute Immature Granulocyte (auto 0.10 0-1 K/uL Nucleated Red Blood Cells 0.5 H 0.0-0.19 % Erythrocyte Sedimentation Rate 48 H 0-30 MM/HR Chemistry Labs: Test 05/16/25 11:26 05/16/25 09:20 05/16/25 04:46 05/15/25 14:11 Range/Units Whole Blood Glucose 122 H 70-110 MG/DL Lactate Dehydrogenase 749 H 81-234 U/L Sodium Level 136 136-145 mmol/L Potassium Level 5.3 H 3.5-5.1 mmol/L Chloride Level 102 101-111 mmol/L Carbon Dioxide Level 23 21-32 mmol/L Blood Urea Nitrogen 73 H 7-18 mg/dL Creatinine 4.3 H 0.5-1.0 mg/dL Glomerular Filtration Rate Calc 12 >90 mL/min Random Glucose 171 H 70-105 mg/dL Total Calcium 7.9 L 8.5-10.1 mg/dL Phosphorus Level 7.6 H 2.5-4.9 mg/dL Magnesium Level 2.20 1.80-2.40 mg/dL Total Bilirubin 5.2 #H 0.2-1.0 mg/dL Aspartate Amino Transf (AST/SGOT) 239 H 10-37 U/L Alanine Aminotransferase (ALT/SGPT) 155 H 12-78 U/L Alkaline Phosphatase 509 H 50-136 U/L Total Protein 7.3 6.0-8.3 g/dL Albumin 2.8 #L 3.5-5.0 g/dL Hemoglobin A1c 7.8 H 4.0-6.0 % Estimated Average Glucose (eAG) 177 H 70-126 mg/dL Iron Level 83 # 50-170 mcg/dL Total Iron Binding Capacity 131 L 250-450 mcg/dL Percent Iron Saturation 63.3 H 22-44 % Ferritin 371 H 15-150 ng/mL Triglycerides Level 101 30-200 mg/dL Cholesterol Level 69 # <200 mg/dL LDL Cholesterol 45 0-99 mg/dL HDL Cholesterol 12 L 35-85 mg/dL Test 05/15/25 08:40 05/15/25 06:02 05/14/25 18:19 Range/Units Lactic Acid Level 4.7 H 0.8-2.5 mmol/L Ammonia 16 11-32 umol/L C-Reactive Protein, Quantitative 89.40 H 0.5-3.0 mg/L Procalcitonin 2.03 H 0.05-0.5 ng/mL Troponin I High Sensitivity 28 4-50 ng/L B-Type Natriuretic Peptide 125 H 0-100 pg/mL Coagulation Labs: Test 05/14/25 18:19 Range/Units D-Dimer Quantitative (PE/DVT) 6512 *H 0-500 ng/mL DIAGNOSTICS / RADIOLOGY RESULTS: [ ] PLAN NEURO: Minimize central acting medications as possible. Fall Precautions. Well lighted room through the day and minimize interruptions through the night to prevent acute delirium. PULMONARY: Supplemental 02 as needed Titrate Fio2 to keep Spo2 > or = 90% DuoNebs and CPT as needed IS hourly while awake for pulmonary hygiene Out of bed to chair as tolerated VAP Bundle Vent/BIPAP Settings: [ ] Driving pressure: [ ] P Plat: [ ] Static C: [ ] Static R: [ ] P/F Ratio: [ ] CARDIOVASCULAR: Follow hemodynamics. Titrate vasopressor to keep MAP >65 or systolic blood pressure >95mmHg DIPS: None LINES: PIV GI & NUTRITION: Continue nutritional support Aspirations precautions Prokinetic agents and laxatives as needed KIDNEYS & ELECTROLYTES: Strict monitoring of intake and output Daily weights Avoid nephrotoxic agents Monitor electrolytes and replace as needed Goal urine output of 30mL/hr or 0.5mL/kg/hr Urine output: [ ] Fluid Balance: [ ] ENDOCRINE: Maintain blood glucose between 100-180 at all times. Insulin sliding scale for blood glucose management INFECTIOUS DISEASE: Trend temperature. [place]-culture if febrile. Micro: [ ] Urine culture-MRSA Blood culture-MRSA Antibiotics: Vancomycin HEMATOLOGY & COAGULATION: Monitor H&H. Keep Hgb > 7 Transfuse 1 unit of PRBC for Hgb < 7 Transfuse 1 pack of platelets of platelets < 20, 000 Watch for any signs and symptoms of bleeding SKIN: Pressure ulcer prevention per facility protocol Rehab: PT/OT Prophylaxis: GI: [ Protonix] DVT: SCDs for now no anticoagulation due to thrombocytopenia Code Status: Full Resuscitation Disposition: Medical-surgical Other: Total patient care time exceeds 35 minutes excluding all procedures. Case was discussed and seen with my supervising physician. The above plan was formulated and agreed upon. OSCAR DUGAN May 16, 2025 14:00
--- NOTE | 2025-05-16 16:16 | PN ---
[facility] PROGRESS NOTE Date of Service: May 16, 2025 Time of Service: 15:58 SUBJECTIVE: This is a 54-year-old female with past medical history of undiagnosed obstructive sleep apnea, diabetes type 2, hypertension, hyperlipidemia, hypothyroidism, restless leg syndrome, anxiety disorder,depression, lupus and severe morbid obesity who presents to the ED for complaints of severe low back pain which started 2 weeks ago and getting worse for the past 2 days and patient reports she is taking prednisone 30mg po daily for her Lupus she said.Patient also reports she was recently seen in this ED for similar complaints and was diagnosed with acute lumbosacral myofascial strain. and patient was given pain meds and discharged home and came again today due to pain intensity is so severe and intolerable.Patient also reports that her whole body hurts more on muscle pain she said.Patient also reports she has muscle pain on her chest and it reproducible on light palpation.Patient also states she vomited x 1 today .Patient denies any injury,trauma and fall.Patient also reports that she is on her monthly period today and it is her first day.patient also states that is her fitness and wellness director and her last seen him last year and that she has insurance problem reason she was unable to keep her follow up. Urinalysis consistent with urinary tract infection. CT abdomen and pelvis result revealed no acute intra-abdominal or pelvic pathology cirrhotic liver morphology with splenomegaly, consistent with portal hypertension. Bilateral renal cortical thickening may reflect renal parenchymal disease. While in the ER patient received Rocephin 1 g IV, 1 L NS bolus. We will admit patient for further medical management. 04/23/25 Patient was seen and examined at bedside. She was complaining of chest pain ear ly in the morning but her EKG and troponin were normal. Patient says she got liver cirrhosis from taking Tylenol with codeine in the past for a long time. Remarkable labs are Na 129, K 6.4. Cl 98, BUN 44. Cr 1.2 with no anion gap. New EKG shows sinus rhythm with no tall T-waves or shortened QT interval. We will give her a dose of calcium gluconate and lokelma and recheck her labs. we will hold her iv fluids for now. Her urine anion gap is 36.0 mEq/l. Repeat potassium was 4.2 and 4.6. We will order CT lumbar spine and request nephro and cardio consults due to hyponatremia, RTA and cirrhosis with portal hypertension respectively. We will order lupus, complement , anemia panel due to her abnormal labs and h/o SLE. Hematology recommended solu medrol 125 q6. she might need hydrochloroquine upon discharge for SLE 04/24/25 Patient was seen and examined at bedside. She is complaining of widespread generalized body pain with tender points and generalized weakness, her CPK is going up, we will repeat it and start her on pregabalin. Her labs are improving. She had an EGD done last year that showed grade III varices but lost to follow up with TDS. No GI intervention as her Hb is stable. Will start her on vancomycin. Her home meds have been reconciled. She takes venlaflaxine and pramipexole for depression and restless leg syndrome respectively. Her elevated urine anion gap could be due to BALTAZAR or NSAID induced kidney injury but her creatinine is improving. Pending abdominal ultrasound and CT lumbar spine results. 04/25/25 Patient was seen and examined. She was observed sitting in a chair but was unable to answer questions appropriately and appeared confused. Ammonia level was elevated at 59; lactulose has been initiated at 30 mL TID. She is currently receiving vancomycin for MRSA identified in the urine. Right upper quadrant ultrasound demonstrated chronic hepatic changes with a hypoechoic lesion in the right lobe of the liver, possibly representing a complex cyst. CT of the lumbar spine revealed moderate lumbar spondylosis and diffuse osteopenia. Her platelet count is 37 and showing slow improvement. Dr. Urias, covering for Dr. Lorenzo, recommended holding solu-medrol for now. If platelet count declines tomorrow, steroids may need to be restarted. Ammonia and additional labs will be rechecked in the morning. 04/26/25 Patient was seen at bedside. Will request a transfer to the ICU due to worsening agitation and hypercapnic respiratory failure requiring BIPAP support.Will order Precedex drip for sedation to improve tolerance of non-invasive ventilation. Imaging studies including CT head and MRI spine have been ordered to evaluate for underlying neurologic causes. Patient remains hemodynamically stable; pulmonary consult is in place. She is growing gram positive cocci in clusters in her blood, will request ID input on antibiotics as she was on vancomycin previously and was started on bactrim for MRSA in urine. Her platelet count is 36 and solu-medrol is on hold. Ammonia improved from 59 to 12 04/27/25 Patient was evaluated at bedside. She was transferred to the ICU yesterday due to agitation and hypercapnia, requiring a Precedex drip as she was removing her nasal cannula. BiPAP was initiated to support ventilation, and she is now resting comfortably. CT brain was unremarkable with no acute findings. She has a free water deficit of approximately 1.4 liters, for which D5W will be administered. CRP has decreased from 83.5 to 56.4. However, platelets have dropped from 36 to 28, and hematology is closely monitoring her. The patient remains NPO. We wanted to start NG tube feeding but patient has h/o esophageal varices. We will await gastroenterologys recommendations, including possible EGD if indicated. 04/28/25 Patient was evaluated at bedside, she is bed bound not very responsive to questions. She is currently off BiPAP and precedex drip. Her agitation has improved and she is resting comfortably in bed. She has MRSA bacteremia and we will repeat blood cultures. She is currently on vancomycin. She has moderate right hydronephrosis which is increasing, we will request urology consult. Her sodium is trending upwards from 147 to 152 and she has a free water deficit of 2.4 L , we will increase D5 rate from 75 to 150mls/hr. CRP improving from 56.4 to 42.7. Platelets dropped from 28 to 21, we will follow Dr. Lorenzo's recommendations and his plan is give her IgG. She is not bleeding actively. 04/29/25 Patient was evaluated at bedside. She is alert, awake and oriented. She was minimally verbal yesterday but is now more interactive, expressing pain and discussing her medical history. She reports diffuse joint pain and is unable to lift her arms or legs due to significant discomfort. She has generalized joint tenderness and weak division engineer strength bilaterally. urologist Dr. Colin recommended nephrostomy tube on her right due to hydronephrosis. Her platelets improved to 44 without any intervention. She will be getting platelets for the procedure. She has infectious spondylodiscitis which could be the source of her bacteremia. We have requested transfer to [facility] but warehouse operator said Dr. Sanchez has privileges at [facility] and will try to consult him. Her white count went up to 1 2.2, LFTs mildly going up. We will hold off on gabapentin for now. 04/30/25 Patient was evaluated at bedside. She is alert, awake and oriented. Her vitals are stable. She is interactive, expressing pain and discussing her medical history. She reports diffuse joint pain and is able to lift her arms or legs slightly due to pain and discomfort. Her active and passive range of motions are limited. She has generalized joint tenderness and weak division engineer strength bilaterally. She also passed stool more than 5 times yesterday could be due to lactulose which has been stopped from today. A Percutaneous fluroscopy-guided placement of an 8-F nephrostomy catheter was performed,the patient tolerated the procedure well. Neurosurgeon Dr. Sanchez saw the patient and came up with possible diagnosis of discitis and osteomyelitis at L2-L3 along with psoas inflammation. She has spondylolisthesis which is non- critical and can be managed medically for now. According to Dr. Lorenzo she will benefit from IVIg for 3 days on the background of possible ITP. Her current platelet is 41 and Hgb 9.6. Also, Endocrinology team adjusted Insulin regimen. We have requested cardiology consult for suspected endocarditis and will request RAMAN although she has thrombocytopenia and h/o esophageal varices. 05/01/25 Patient was evaluated at bedside. She is alert, awake and oriented. Her vitals are stable, except blood pressure which is 158/80. She reports diffuse joint pain and is able to lift her arms or legs slightly due to pain and discomfort. Her active and passive range of motions are limited. She has generalized joint tenderness and weak division engineer strength bilaterally. As per Dr. Lorenzo she will be started IVIG from today for 3 days. As per the Cardiology, she won't undergo RAMAN due thrombocytopenia, cirrhosis, varices. We will continue IV antibiotics and add low dose pregabalin for her pain. 05/02/25 Patient was evaluated at bedside. She is alert, awake and oriented. Her vitals are stable, except blood pressure which is 157/81. Labs showed WBC decreasing from 11.6 to 5.7, platelets from 44 to 32 and random glucose of 226. There has been marked decline in pain. We will continue IV antibiotics and she is receiving Immune globulin every 24 hr. Her Insulin dosage has been adjusted. Blood culture showed gram positive cocci in clusters, STAPHYLOCOCCUS AUREUS. Her prognosis remains guarded. Plan is to discharge her to [facility] for 6 weeks of IV antibiotics. 05/03/25 Patient was evaluated at bedside. She is alert, awake and oriented. Her vitals are stable,and her blood pressure which is 137/70. Labs showed WBC 7.8 , platelets from increasing from 32 to 44 and random glucose of 232. Her creatinine level is 1.2. There has been marked decline in pain and discomfort. We will continue IV antibiotics and she is receiving Immune globulin every 24 hr. Her last dose for Immune globulin is today. Her Insulin dosage has been adjusted. Blood culture showed gram positive cocci. Her prognosis remains guarded. She is on IV vancomycin. Plan is to discharge her to [facility] for 6 weeks of IV antibiotics. 05/04/25: The patient was evaluated at the bedside today. She had just finished showering and reported new-onset slurred speech, facial weakness and word- finding difficulty. She reports no weakness in the extremities. Blood cultures r emain positive for gram-positive cocci, specifically MRSA. She is continuing on vancomycin, and gentamicin was initiated yesterday per Infectious Disease recommendations. She has completed a total of three IV IgG infusions. Platelet count is currently 31,000, decreased from 41,000 yesterday. Additionally, the patient has developed a groin rash with associated itching. Physical therapy noted that she was unable to ambulate today and experienced significant difficulty with mobility. We will continue to closely monitor her neurological status, platelet counts, and overall clinical response. Repeat blood cultures will be obtained at an appropriate interval following the initiation of gentamicin, per Infectious Disease guidance. Further assessment and management plan are outlined below. 05/05/25 The patient was evaluated at the bedside today. Her vitals are stable and communicated well. She complaints of pain in the neck and shoulder. She reports no weakness in the extremities. Blood cultures remain positive for gram-positive cocci, specifically MRSA. She is continuing on vancomycin, and gentamicin per Infectious Disease recommendations. Repeat blood cultures will be obtained at an appropriate interval following the initiation of gentamicin. She has completed a total of three IV IgG infusions. Platelet count is currently decreased [place] 31,000 [place] [address]. Her WBC is 6.8 and Hgb is 8.6. Her insulin medications has been adjusted by the endocrinology team. Additionally, the patient's groin rash with associated itching has been improving. She has been prescribed for Venlafaxine for management of depression and anxiety. Also Case management updated that they are in communication with [facility], Insurance approval is still pending; no authorization has been granted as of this time. Further assessment and management plan are outlined below. 05/06/25 The patient was evaluated at the bedside today. Her vitals are stable and communicated well. Her pain is gradually decreasing. She reports no weakness in the extremities. Blood cultures remain positive for gram-positive cocci, specifically MRSA. Blood culture has been sent today after 3 days of gentamicin. She is continuing on vancomycin, and gentamicin per Infectious Disease recommendations. . She has completed a total of three IV IgG infusions. Platelet count is currently decreased from 31,[address] Lorenzo, she has been planned for the transfusion of platelets today. Her WBC is 5.1, Hgb is 8.9, CRP 61.50 and whole blood glucose 233. In addition,PT is 17.2, INR 1.71, APTT 36.3 and Fibrinogen 119. Also, the Liver enzymes are elevated with total bilirubin of 1.6, AST 166, ALT 136 and ALP 358. Her Vancomycin trough level has increased from 5.0 to 18.1. Her insulin medications has been adjusted by the endocrinology team. Additionally, the patient's groin rash has been improving. As per Nephrology, the patient's renal function has actually greatly improved &the patient is being seen by case management in regards to placement at the [facility]. We will continue to follow the patient closely. 05/07/25 The patient was evaluated at the bedside today. Her vitals are stable and comm unicated well. Her pain has reduced significantly. Preliminary Blood cultures showed positive for gram-positive cocci which was done yesterday after 3 days of gentamicin. PICC line has been removed as per ID recommendation. Platelet count [place] constantly [place] [address] today. Fecal occult blood test is positive. She received platelets transfusion yesterday. Her WBC is trending downwards from 5.1 to 3.0, Hgb is 8.4, and whole blood glucose 245. In addition, PT is 17.2, INR 1.71, APTT 36.3 and Fibrinogen 119. Her D-dimer is 7184. She has been planed today for bilateral US venous Doppler,V/Q scan and CTPA. Her Liver enzymes revealed total bilirubin of 1.9, AST 120, ALT 125 and ALP 371. Her Vancomycin trough level has decreased from 18.1 to 0.2. Her insulin medications has been followed by the endocrinology team. As per Dr Lorenzo, the patient can be transferred to [facility] as soon as accepted and he is trying to get her Promacta, medicine that raises the platelets,once its available. The WBC-tagged scan has been deferred and rescheduled for tomorrow to avoid excessive radiation exposure since patient was initially planned for V/Q scan today. 05/08/25 The patient was evaluated at the bedside today. Her vitals are stable and com municated well. She complained of hyperventilation in the night. Platelet count [id number] today. Her WBC is 5.6, Hgb is 9.1, and whole blood glucose is 314 . In addition, PT is 16, INR 1.58, APTT 35 and Fibrinogen 122. Her D-dimer is 6586. Her V/Q scan wasn't completed because she couldn't lie flat. The US venous doppler (B/L) was done which revealed no deep venous thrombosis evident in the bilateral lower extremity and No superficial thrombophlebitis in the bilateral lower extremity. Her Liver enzymes revealed total bilirubin of 1.9, AST 102, ALT 124 and ALP 391. Her Gentamicin peak and trough level is 0.2 and 0.3 respectively. Her insulin medications has been followed by the endocrinology team. We are awaiting for WBC tagged scan report. 05/09/25 The patient was evaluated at the bedside today. Her vitals are stable and communicated well. She complained of right lower [place] [address] [place]. Her WBC is 6.2, Hgb is 8.7, and random blood glucose is 236. Blood culture is positive for gram positive cocci. According to ID recommendation, Patient is started on Daptomycin and Ceftaroline. As per Dr Lorenzo, he is trying to get the promacta. Her Liver enzymes revealed total bilirubin of 1.8, AST 128, ALT 139 and ALP 410. Her creatinine is 1.2 and BUN is 41. Participation with physical therapy has been improving. We will continue to monitor patient. 05/10/25 The patient was evaluated at the bedside today. Her vitals are stable and communicated well. [place] [address] [place] [address]. Her WBCs trending downwards from 6.2 to 4.7, RBC 3.34, hemoglobin 8.8. Blood culture is positive for gram positive cocci. According to ID recommendation, Patient is on Day 2 of Daptomycin and Ceftaroline. Blood cultures will be sent on Monday. She did her 1st cycle of WBC tagged scan test. It will be done on 48 hours and then 72 hours. After that we will have the conclusive findings if anything is present. Her creatinine is trending upwards from 1.2 to 1.5 and blood urea nitrogen is 39. Her CRP is 47.80. Her creatinine is 1.2 and BUN is 41. Participation with physical therapy has been improving. As per the recommendation of Endocrinology she is getting Lantus 30 units daily and Humalog 10 units t.i.d. before beats patient's glucose are improving. Today's random blood glucose was 182. We will continue to monitor the patient. 05/11/25 The patient was evaluated at the bedside today. She complained of right upper quadrant pain. She is stable hemodynamically. Platelet count 99075. Her WBCs trending up from 4.7 to 6.8, hemoglobin 8.1. Blood culture is positive for gram positive cocci. According to ID recommendation, Patient is on Day 3 of Daptomy mich and Ceftaroline. Blood cultures will be sent on Monday. She did her 2nd cycle of WBC tagged scan test. Next cycle will be done today and tomorrow.. After that we will have the conclusive findings if anything is present. Her creatinine is trending upwards from 1.2< 1.5<1.8 and blood urea nitrogen is 41. LFT trending up, bilirubin 2.1, AST 153, ALT 154, ALP 443. Her CRP is 47.80. Participation with physical therapy has been improving. As per the recommendation of Endocrinology she is getting Lantus 40 units daily and Humalog 10 units t.i.d with sliding scale insulin.. Today's random blood glucose was 210. We will continue to monitor the patient. Hematology, ID and nephrology on the board. Plan as discussed below 05/12/25 The patient was evaluated at the bedside today. She complained of right upper quadrant pain. She is [place] [address]. Her WBCs trending up from 4.7 to 6.8 to 8.4 toady, hemoglobin 8.1 to 8.4. Blood culture is positive for gram positive cocci. According to ID recommendation, Patient is on Day 4 of Daptomycin and Ceftaroline. Blood cultures will be sent today. She did her all the cycles of of WBC tagged scan test and we are awaiting the final results. Her creatinine is trending upwards from 1.2< 1.5<1. 8<1.9 and blood urea nitrogen is 44. Her total creatine kinase is 383. LFT trending up, bilirubin 2.2, AST 161, ALT 158, ALP 451. Her albumin is 1.4. Ultrasonography done on 05/11 revealed increased echogenicity of the right kidney which may reflect renal parenchymal disease. Previously demonstrated liver lesion and right hydronephrosis are not visualized. Chronic hepatitis disease was present. She will receive vitamin K 10 mg. Along with other lab parameters we will check the coagulation profile. She has been planned for MRI of lumbar spine with contrast. As per the recommendation of Endocrinology she is getting Lantus 30 units daily and Humalog 10 units t.i.d with sliding scale insulin. Today's random blood glucose was 162. We will continue to monitor the patient. Hematology, ID and nephrology on the board. Plan as discussed below. 05/13/25 The patient was evaluated at the bedside today. She has petechiae [place] [address]. Her WBCs is 8.5, hemoglobin 8.1. Blood culture done on 05/12 is positive for gram positive cocci in clusters. She is continued Daptomycin and Ceftaroline (Day 5). Dr Sanchez, the neurosurgeon has been consulted for Intradiscal collection with extension into tepidural space in the lumbar region (L2-L3 level). We have also consulted dietitian for her poor appetite. We will give IV albumin for possible hepatorenal syndrome. 05/14/25 The patient was evaluated at the bedside today. Her clinical status is worsening. We are transferring [place] [address]. She has persistent Gram-positive, MRSA bacteremia and blood culture is still positive as of 05/14/2025. She is continued Daptomycin and Ceftaroline (Day 6). She has been started on sevelamer 800 mg per oral once. Her albumin has been changed to every 8 hourly. Critical care team has been consulted for further evaluation and management. 05/15/25 The patient was evaluated at the bedside today. Her clinical status is worsening. She is continued Daptomycin and Ceftaroline (Day 7). As per Dr. Singh's, patient's critical condition was discussed with staff, and family. Surgical drainage remains an option, but patient requires medical optimization 1st: Planned made for aggressive medical management. She also developed hyperkalemia with potassium 6.7. She was given calcium gluconate and Kayexalate. Repeat potassium is 5.8 and we will recheck BMP in 6 hours. Her renal function and liver functions are worsening. Her creatinine is 4.4. The prognosis is guarded for her. As per Nephrology: Patient with worsening renal function, persistent hyperkalemia and oliguria: Dialysis recommended and done, 1500 ml removed. 05/16/25 The patient was evaluated at the bedside today. Her clinical status is worsening. The prognosis is guarded for her. She is continued Daptomycin and Ceftaroline (Day 8). Her Potassium level today is 5.3. Patient Continues to be on BiPAP. As per the Nephrology, The patient will continue with maximum ultrafiltration as blood pressure allows. The patient is to receive 1 unit of packed red blood cells with dialysis. Dialysis done today, removed 2500 ml. REVIEW OF SYSTEMS Limited secondary to patient's condition. Patient is drowsy and on BiPAP. PHYSICAL EXAM GENERAL APPEARANCE: The patient is drowsy and Currently on BiPAP. NEUROLOGICAL: No sensory and motor deficits. CHEST: Normal chest expansion. LUNGS: Absence of any rales, rhonchi or any wheezing. CARDIOVASCULAR: Regular. S1 and S2 normal. No appreciable rubs, murmurs or gallops. ABDOMEN: Soft nontender, and nondistended. There is no rebound, voluntary guarding, or rigidity. GENITOURINARY: S/P day 13, Nephrostomy tube on the right side SKIN AND INTEGUMENTARY: Petechiae noted on different parts of the body. Vital Signs (last 8hr) Date Time Temp Pulse Resp B/P (MAP) Pulse Ox O2 Delivery O2 Flow Rate FiO2 05/16/25 14:30 78 30 91/49 (63) 96 32 05/16/25 14:15 69 28 108/43 (64) 98 32 05/16/25 14:00 69 25 100/45 (63) 94 32 05/16/25 13:45 74 27 112/65 (81) 98 32 05/16/25 13:30 75 31 99/56 (70) 97 30 05/16/25 13:15 81 23 123/47 (72) 99 30 05/16/25 13:00 80 34 125/50 (75) 97 30 05/16/25 12:45 78 29 118/51 (73) 98 30 05/16/25 12:30 79 26 126/43 (70) 98 30 05/16/25 12:20 78 22 N/Cannula Low lpm 2.0 28 05/16/25 12:15 68 30 111/56 (74) 97 30 05/16/25 12:00 98 Bi-PAP+ 0 30 05/16/25 12:00 73 27 135/55 (81) 98 30 05/16/25 11:50 98.1 93 14 104/65 96 BIPAP 30 05/16/25 11:45 78 26 150/85 (106) 98 30 05/16/25 11:30 98.1 05/16/25 11:30 76 32 124/45 98 BIPAP 30 05/16/25 11:15 76 32 111/63 98 BIPAP 30 05/16/25 11:15 98.1 67 28 104/39 (60) 98 30 05/16/25 11:00 76 17 148/55 (86) 97 30 05/16/25 11:00 76 32 127/44 98 BIPAP 30 05/16/25 10:45 98.1 76 32 125/51 98 BIPAP 30 05/16/25 10:45 66 31 81/30 (47) 96 30 05/16/25 10:30 71 26 125/37 (66) 97 30 05/16/25 10:30 76 32 135/46 98 BIPAP 30 05/16/25 10:15 76 32 113/40 98 BIPAP 30 05/16/25 10:15 78 24 135/46 (75) 97 30 05/16/25 10:00 76 32 110/40 98 BIPAP 30 05/16/25 10:00 77 28 110/38 (62) 96 30 05/16/25 09:45 76 32 106/65 98 BIPAP 30 05/16/25 09:45 64 24 96/31 (52) 97 30 05/16/25 09:36 65 29 109/38 (61) 97 30 05/16/25 09:33 57 24 80/32 (48) 99 30 05/16/25 09:30 72 32 124/60 98 BIPAP 30 05/16/25 09:27 59 19 85/29 (47) 97 30 05/16/25 09:25 59 28 95/25 (48) 98 30 05/16/25 09:12 64 14 109/43 (65) 99 30 05/16/25 09:10 98.1 60 32 119/56 98 BIPAP 30 05/16/25 09:00 61 20 107/62 (77) 98 30 05/16/25 09:00 98.2 92 20 113/52 98 Nasal Cannula 2.0 05/16/25 08:45 61 20 113/38 (63) 99 30 05/16/25 08:30 62 12 108/38 (61) 98 30 05/16/25 08:15 65 10 111/32 (58) 99 30 05/16/25 08:00 97.9 05/16/25 08:00 67 20 109/47 (67) 98 30 05/16/25 08:00 96 Bi-PAP+ 0 30 LABS: Laboratory: Test 05/16/25 13:49 05/16/25 11:26 05/16/25 09:20 05/16/25 04:46 Range/Units Activated Partial Thromboplast Time 88.2 H 26.3-35.5 SEC Whole Blood Glucose 122 H 70-110 MG/DL Reticulocyte Count (auto) 4.26034 H 0.42-2.23 % Immature Reticulocyte Fraction 34.10 H 0.18-0.48 % Lactate Dehydrogenase 749 H 81-234 U/L White Blood Count 8.5 # 4.8-10.8 K/uL Red Blood Count 2.31 L 4.00-5.50 MIL/uL Hemoglobin 6.3 *L 12.0-16.0 g/dL Hematocrit 20.4 *L 36-48 % Mean Corpuscular Volume 88.3 79-99 fL Mean Corpuscular Hemoglobin 27.3 27.0-33.0 pg Mean Corpuscular Hemoglobin Concent 30.9 L 32.0-36.0 g/dL Red Cell Distribution Width 28.5 H 11.0-15.5 % Platelet Count 17 #L 130-400 K/uL Mean Platelet Volume 9.9 7.5-10.5 fL Immature Granulocyte % (Auto) 1.2 H 0-1 % Neutrophils (%) (Auto) 76.7 40.0-77.0 % Lymphocytes (%) (Auto) 8.9 L 21.0-51.0 % Monocytes (%) (Auto) 8.5 3.0-13.0 % Eosinophils (%) (Auto) 4.6 0.0-8.0 % Basophils (%) (Auto) 0.1 0.0-5.0 % Neutrophils # (Auto) 6.5 1.8-7.7 K/uL Lymphocytes # (Auto) 0.8 L 1.0-4.8 K/uL Monocytes # (Auto) 0.7 0.1-1.0 K/uL Eosinophils # (Auto) 0.39 0.00-0.70 K/uL Basophils # (Auto) 0.01 0.00-0.20 K/uL Absolute Immature Granulocyte (auto 0.10 0-1 K/uL Nucleated Red Blood Cells 0.5 H 0.0-0.19 % Sodium Level 136 136-145 mmol/L Potassium Level 5.3 H 3.5-5.1 mmol/L Chloride Level 102 101-111 mmol/L Carbon Dioxide Level 23 21-32 mmol/L Blood Urea Nitrogen 73 H 7-18 mg/dL Creatinine 4.3 H 0.5-1.0 mg/dL Glomerular Filtration Rate Calc 12 >90 mL/min Random Glucose 171 H 70-105 mg/dL Total Calcium 7.9 L 8.5-10.1 mg/dL Phosphorus Level 7.6 H 2.5-4.9 mg/dL Magnesium Level 2.20 1.80-2.40 mg/dL Total Bilirubin 5.2 #H 0.2-1.0 mg/dL Aspartate Amino Transf (AST/SGOT) 239 H 10-37 U/L Alanine Aminotransferase (ALT/SGPT) 155 H 12-78 U/L Alkaline Phosphatase 509 H 50-136 U/L Total Protein 7.3 6.0-8.3 g/dL Albumin 2.8 #L 3.5-5.0 g/dL Test 05/15/25 14:11 05/15/25 08:40 05/15/25 07:19 05/15/25 06:02 Range/Units Hemoglobin A1c 7.8 H 4.0-6.0 % Estimated Average Glucose (eAG) 177 H 70-126 mg/dL Iron Level 83 # 50-170 mcg/dL Total Iron Binding Capacity 131 L 250-450 mcg/dL Percent Iron Saturation 63.3 H 22-44 % Ferritin 371 H 15-150 ng/mL Triglycerides Level 101 30-200 mg/dL Cholesterol Level 69 # <200 mg/dL LDL Cholesterol 45 0-99 mg/dL HDL Cholesterol 12 L 35-85 mg/dL Hepatitis B Surface Antigen. Non-Reactive Nonreactive Hepatitis B Surface Antibody. Positive Reactive Hepatitis B Core Total Antibody. Reactive H Nonreactive Hepatitis C Antibody Non-Reactive Nonreactive HIV (1&2) Antibody Non-Reactive Negative HIV P24 Antigen, Qualitative Non-Reactive Negative Lactic Acid Level 4.7 H 0.8-2.5 mmol/L Blood Gas Specimen Type Arterial Arterial Blood pH 7.306 L 7.350-7.450 Arterial Blood Partial Pressure CO2 37 32-45 mmHg Arterial Blood Partial Pressure O2 111.7 H 83.0-108.0 mmHg Arterial Blood HCO3 17.9 L 21.0-28.0 mmol/L Arterial Blood Oxygen Saturation 97.7 94.0-98.0 % Arterial Blood Base Excess -7.7 L -2.0-3.0 mmol/L Hemoglobin (Blood Gas) 8.5 L 12.0-16.0 g/dL Sodium (Blood Gas) 132 L 136-145 MMOL/L Bedside Potassium (Blood Gas) 6.3 *H 3.4-4.5 MMOL/L Bedside Chloride (Blood Gas) 105 98-107 MMOL/L Bedside Glucose (Blood Gas) 136 H 65-95 MG/DL Bedside Ionized Calcium (Blood Gas) 1.14 L 1.15-1.33 MMOL/L Bedside Lactic Acid (Blood Gas) 2.29 H 0.36-0.75 MMOL/L Blood Gas Temperature 37.0 35.5-37.0 CELSIUS Blood Gas Respiration Rate 12.0 min. Blood Gas Vent Mode BIPAP 12 6 ROOM AIR FiO2 30.0 % Blood Gas Specimen Comment LR [place] RN Erythrocyte Sedimentation Rate 48 H 0-30 MM/HR Ammonia 16 11-32 umol/L C-Reactive Protein, Quantitative 89.40 H 0.5-3.0 mg/L Procalcitonin 2.03 H 0.05-0.5 ng/mL Test 05/14/25 18:19 Range/Units D-Dimer Quantitative (PE/DVT) 6512 *H 0-500 ng/mL Troponin I High Sensitivity 28 4-50 ng/L B-Type Natriuretic Peptide 125 H 0-100 pg/mL Current Medications Medications (Trade) Dose Ordered Sig/Roberth Route PRN Reason Start Time Stop Time Status Last Admin Dose Admin Acetaminophen (TYLenol 325MG TAB) 650 mg Q4H PRN PO MILD PAIN (1-3) 04/22/25 20:00 05/22/25 19:59 05/11/25 21:31 650 MG Acetaminophen (TYLenol 325MG TAB) 650 mg Q6H PRN PO TEMPERATURE GREATER THAN 101.5 04/22/25 20:00 05/22/25 19:59 04/23/25 10:02 650 MG Acetaminophen/ Hydrocodone Bitart (NORco 5/325MG) 1 tab Q4H PRN PO MODERATE PAIN (4-6) 04/30/25 12:00 05/05/25 11:59 DC 04/30/25 22:07 1 TAB Albumin Human 100 ml @ 0 mls/hr AD IV 05/13/25 16:00 05/14/25 14:47 DC Albumin Human 100 ml @ 0 mls/hr Q8H6 IV 05/14/25 15:00 05/14/25 15:59 DC Albumin Human 100 ml @ 0 mls/hr TID IV 05/15/25 09:00 05/16/25 23:00 05/16/25 13:57 50 MLS/HR Atorvastatin Calcium (LIPItor 20MG) 20 mg HS PO 04/24/25 21:00 05/13/25 15:42 DC 05/12/25 20:57 20 MG Ceftaroline Fosamil 200 mg/ Sodium Chloride 250 ml @ 125 mls/hr Q12H IV 05/16/25 06:00 05/19/25 05:59 05/16/25 05:10 125 MLS/HR Ceftaroline Fosamil 300 mg/ Sodium Chloride 250 ml @ 125 mls/hr Q8H IV 05/15/25 05:00 05/15/25 18:18 DC 05/15/25 15:22 125 MLS/HR Ceftaroline Fosamil 400 mg/ Sodium Chloride 250 ml @ 250 mls/hr Q12H IV 05/09/25 17:00 05/15/25 04:40 DC 05/14/25 17:20 250 MLS/HR Ceftriaxone Sodium 1 gm/ Sodium Chloride 50 ml @ 100 mls/hr BID IV 04/22/25 21:00 04/22/25 19:59 DC Ceftriaxone Sodium (ROCEphine 1G INJ) 1 gm BID IVPB 04/22/25 21:00 04/22/25 20:44 DC Ceftriaxone Sodium (ROCEphine 1G INJ) 1 gm BID IVPB 04/23/25 09:00 04/25/25 12:36 DC 04/25/25 09:44 1 GM Daptomycin 1000 mg/Sodium Chloride 100 ml @ 200 mls/hr Q24H IV 05/09/25 15:00 05/12/25 17:41 DC 05/11/25 16:20 200 MLS/HR Daptomycin 1000 mg/Sodium Chloride 100 ml @ 200 mls/hr Q24H IV 05/12/25 18:00 05/15/25 18:10 DC 05/14/25 19:14 200 MLS/HR Daptomycin 1000 mg/Sodium Chloride 100 ml @ 200 mls/hr Q48H IV 05/16/25 18:00 05/22/25 17:59 Dexamethasone Sodium Phosphate (dexaMETHasone 4MG/ML 1ML VIAL) 20 mg ONCALL IV 05/01/25 15:30 05/03/25 15:31 DC 05/02/25 15:41 20 MG Dexamethasone Sodium Phosphate (dexaMETHasone 4MG/ML 1ML VIAL) 20 mg ONCALL IV 05/03/25 17:15 05/03/25 17:16 DC 05/03/25 17:23 20 MG Dexamethasone Sodium Phosphate (dexaMETHasone 4MG/ML 1ML VIAL) 20 mg ONCE PRN IV PRE-MED 05/01/25 15:00 05/01/25 15:05 DC Dexmedetomidine HCl 400 mcg/ Sodium Chloride 100 ml @ 0 mls/hr AD PRN IV TITRATE 05/14/25 20:00 05/14/25 20:01 DC Dexmedetomidine/ Sodium Chloride (PRECEdex 200MCG/ 50ML-NS) 200 mcg PROTOCOL IV 04/26/25 12:00 04/26/25 14:54 DC Dexmedetomidine/ Sodium Chloride (PRECEdex 400MCG/ 100ML-NS) 400 mcg PROTOCOL IV 05/14/25 20:30 06/13/25 20:29 05/16/25 03:53 400 MCG Dexmedetomidine/ Sodium Chloride (PRECEdex 400MCG/ 100ML-NS) 400 mcg PROTOCOL PRN IV ANXIETY/AGITATION 04/26/25 19:30 05/01/25 12:45 DC 04/27/25 23:31 400 MCG Dexmedetomidine/ Sodium Chloride (PRECEdex 400MCG/ 100ML-NS) 400 mcg PROTOCOL STAT IV 04/26/25 14:53 04/26/25 14:58 DC 04/26/25 15:18 400 MCG Dextrose 1,000 ml @ 75 mls/hr [id number] IV 04/26/25 12:00 04/30/25 09:36 DC 04/29/25 04:27 150 MLS/HR Dextrose (D50w) 50 ml AD PRN IV HYPOGLYCEMIA PROTOCOL 04/22/25 20:00 05/22/25 19:59 Diphenhydramine HCl (BENAdryl INJ) 25 mg ONCALL IVP 05/01/25 15:30 05/03/25 15:31 DC 05/02/25 15:41 25 MG Diphenhydramine HCl (BENAdryl INJ) 25 mg ONCALL IVP 05/03/25 17:15 05/03/25 17:16 DC 05/03/25 17:22 25 MG Diphenhydramine HCl (BENAdryl INJ) 25 mg ONCE PRN IVP PRE-MED 05/01/25 15:00 05/01/25 15:06 DC Epoetin Rubén-epbx (Retacrit) 10,000 unit QMOFR SQ 05/19/25 09:00 06/18/25 08:59 Famotidine (Pepcid 20mg Vial) 20 mg BID IV 05/16/25 11:00 05/16/25 11:02 DC Famotidine (Pepcid 20mg Tab) 20 mg DAILY PO 04/23/25 09:00 04/24/25 09:48 DC 04/23/25 09:33 20 MG Gabapentin (NEURontin 300 MG CAP) 300 mg BID PO 04/24/25 21:00 04/28/25 09:10 DC 04/25/25 21:51 300 MG Gentamicin Sulfate/Sodium Chloride 100 ml @ 200 mls/hr Q12H IV 05/09/25 02:00 05/09/25 13:30 DC 05/09/25 01:36 200 MLS/HR Gentamicin Sulfate/Sodium Chloride 100 ml @ 200 mls/hr Q24H IV 05/03/25 14:00 05/08/25 21:01 DC 05/08/25 14:18 200 MLS/HR Glucagon (Glucagon 1mg Kit) 1 mg AD PRN IM HYPOGLYCEMIA PROTOCOL 04/22/25 20:00 05/22/25 19:59 Heparin Sodium (Porcine) (HEParin 5,000 UNIT VIAL) 5,000 unit Q8H SQ 04/25/25 09:00 04/25/25 08:40 DC Hydromorphone HCl (DiLAUDid 0.5MG INJ) 0.5 mg BIDPRN PRN IVP SEVERE PAIN (7-10) 04/25/25 19:00 04/30/25 11:59 DC 04/29/25 23:31 0.5 MG Hydromorphone HCl (DiLAUDid 0.5MG INJ) 0.5 mg Q6H PRN IVP SEVERE PAIN (7-10) 04/23/25 14:00 04/25/25 08:25 DC 04/25/25 04:14 0.5 MG Hydromorphone HCl (DiLAUDid 1MG INJ) 1 mg TID PRN IVP SEVERE PAIN (7-10) 05/01/25 19:00 05/05/25 12:59 DC Hydromorphone HCl (DiLAUDid 1MG INJ) 1 mg TIDP PRN IVP SEVERE PAIN (7-10) 04/30/25 13:00 05/01/25 18:46 DC 04/30/25 20:44 1 MG Immune Globulin 400 ml @ 0 mls/hr Q24H IV 05/01/25 14:00 05/02/25 12:38 DC 05/01/25 16:18 37.5 MLS/HR Immune Globulin 400 ml @ 0 mls/hr Q24H IV 05/02/25 16:00 05/03/25 16:01 DC 05/02/25 16:46 37.5 MLS/HR Immune Globulin 400 ml @ 0 mls/hr Q24H IV 05/03/25 17:15 05/03/25 17:16 DC 05/03/25 17:57 37.5 MLS/HR Insulin Glargine (LANtus 100 UNITS/ML 10 ML VIAL) 10 units HS SQ 04/24/25 21:00 04/24/25 16:57 DC Insulin Glargine (LANtus 100 UNITS/ML 10 ML VIAL) 10 units ONCE STAT SQ 04/24/25 10:54 04/24/25 11:00 DC 04/24/25 11:19 10 UNITS Insulin Glargine (LANtus 100 UNITS/ML 10 ML VIAL) 15 units HS SQ 04/24/25 21:00 04/24/25 17:06 DC Insulin Glargine (LANtus 100 UNITS/ML 10 ML VIAL) 20 units DAILY SQ 05/15/25 09:00 06/14/25 08:59 Insulin Glargine (LANtus 100 UNITS/ML 10 ML VIAL) 30 units DAILY SQ 05/05/25 09:00 05/07/25 23:47 DC 05/07/25 08:12 30 UNITS Insulin Glargine (LANtus 100 UNITS/ML 10 ML VIAL) 30 units DAILY SQ 05/13/25 09:00 05/14/25 23:09 DC Insulin Glargine (LANtus 100 UNITS/ML 10 ML VIAL) 30 units ONCE SQ 04/24/25 17:00 04/25/25 06:19 DC 04/24/25 18:16 30 UNITS Insulin Glargine (LANtus 100 UNITS/ML 10 ML VIAL) 40 units DAILY SQ 05/08/25 09:00 05/13/25 06:31 DC 05/12/25 09:15 40 UNITS Insulin Glargine (LANtus 100 UNITS/ML 10 ML VIAL) 40 units DAILY SQ 04/29/25 09:00 04/30/25 07:31 DC Insulin Glargine (LANtus 100 UNITS/ML 10 ML VIAL) 50 units DAILY SQ 04/26/25 09:00 04/29/25 06:49 DC 04/28/25 08:46 50 UNITS Insulin Glargine (LANtus 100 UNITS/ML 10 ML VIAL) 50 units DAILY SQ 04/30/25 09:00 05/05/25 07:21 DC 05/04/25 09:30 50 UNITS Insulin Human Regular (humuLIN R 100 UNIT/ML 3ML) 5 unit TIDAC SQ 04/24/25 17:00 04/24/25 17:06 DC Insulin Human Regular (humuLIN R 100 UNIT/ML 3ML) 8 unit TIDAC SQ 04/28/25 07:30 04/30/25 07:31 DC 04/30/25 06:15 8 UNIT Insulin Human Regular (humuLIN R 100 UNIT/ML 3ML) 10 unit TIDAC SQ 05/06/25 07:30 05/07/25 23:47 DC 05/07/25 16:06 10 UNIT Insulin Human Regular (humuLIN R 100 UNIT/ML 3ML) 10 unit TIDAC SQ 05/10/25 11:30 06/09/25 11:29 Hold 05/11/25 12:10 10 UNIT Insulin Human Regular (humuLIN R 100 UNIT/ML 3ML) 10 unit TIDAC SQ 04/24/25 17:00 04/25/25 06:17 DC 04/25/25 06:15 10 UNIT Insulin Human Regular (humuLIN R 100 UNIT/ML 3ML) 12 unit TIDAC SQ 05/05/25 07:30 05/05/25 22:51 DC Insulin Human Regular (humuLIN R 100 UNIT/ML 3ML) 12 unit TIDAC SQ 04/30/25 07:30 05/02/25 08:05 DC 05/02/25 06:45 12 UNIT Insulin Human Regular (humuLIN R 100 UNIT/ML 3ML) 15 unit TIDAC SQ 05/02/25 11:30 05/05/25 07:21 DC 05/04/25 17:33 15 UNIT Insulin Human Regular (humuLIN R 100 UNIT/ML 3ML) 15 unit TIDAC SQ 05/08/25 07:30 05/09/25 06:24 DC 05/08/25 17:16 15 UNIT Insulin Human Regular (humuLIN R 100 UNIT/ML 3ML) 15 unit TIDAC SQ 04/26/25 11:30 04/27/25 20:30 DC Insulin Human Regular (humuLIN R 100 UNIT/ML 3ML) 18 unit TIDAC SQ 05/09/25 07:30 05/10/25 09:56 DC 05/09/25 06:49 18 UNIT Insulin Human Regular (humuLIN R 100 UNIT/ML 3ML) 25 unit TIDAC SQ 04/25/25 07:30 04/26/25 07:58 DC 04/25/25 17:39 25 UNIT Insulin Human Regular (humuLIN R 100 UNIT/ML 3ML) INSULIN SLIDING SCAL... ACHS SQ 04/22/25 21:00 04/24/25 16:16 DC 04/24/25 11:18 8 UNIT Insulin Human Regular (humuLIN R 100 UNIT/ML 3ML) INSULIN SLIDING SCAL... ACHS SQ 05/05/25 07:30 06/04/25 07:29 05/12/25 20:58 4 UNIT Insulin Human Regular (humuLIN R 100 UNIT/ML 3ML) INSULIN SLIDING SCAL... ACHS SQ 04/24/25 16:30 04/25/25 14:09 DC 04/25/25 11:57 16 UNIT Insulin Human Regular (humuLIN R 100 UNIT/ML 3ML) INSULIN SLIDING SCAL... ACHS SQ 04/25/25 16:30 05/04/25 23:42 DC 05/04/25 20:49 6 UNIT Insulin Human Regular (humuLIN R 100 UNIT/ML 3ML) INSULIN SLIDING SCAL... Q4H SQ 04/27/25 20:30 04/28/25 09:11 DC 04/28/25 06:00 4 UNIT Lactated Ringer's 1,000 ml @ 100 mls/hr Q10H IV 04/22/25 20:00 04/23/25 10:09 DC 04/23/25 06:00 100 MLS/HR Lactulose (Constulose 20gm/ 30ml Udcup) 30 gm TID PO 04/25/25 11:00 04/30/25 09:45 DC 04/30/25 09:16 30 GM Levothyroxine Sodium (SYNTHroid 125MCG TAB) 125 mcg DAILY@0630 PO 04/25/25 06:30 05/25/25 06:29 05/15/25 05:57 125 MCG Lidocaine (Lidoderm Patch 5%) 1 patch Q24H TP 05/12/25 05:00 06/11/25 04:59 05/16/25 03:53 1 PATCH Lisinopril (Prinivil 10mg) 10 mg DAILY PO 05/02/25 09:00 05/13/25 08:46 DC 05/12/25 09:13 10 MG Magnesium Sulfate 50 ml @ 0 mls/hr PROTOCOL PRN IV OTHER [SEE ORDER COMMENTS] 04/22/25 20:00 05/22/25 19:59 Methylprednisolone Sodium Succinate (Solu-medROL 125MG) 125 mg Q6H IVP 04/23/25 08:00 04/28/25 09:10 DC 04/25/25 09:45 125 MG Metoprolol Succinate (TopROL XL) 50 mg AM PO 04/25/25 09:00 05/16/25 09:11 DC 05/13/25 08:48 50 MG Norepinephrine 250 ml @ 0 mls/hr AD PRN IV DIRECTED 05/14/25 23:30 06/13/25 23:29 05/16/25 11:38 47.62 MLS/HR Nystatin (NystOP 15 GM POWDER) apply abdominal fold/perineum BID TP 05/09/25 21:00 06/08/25 20:59 05/16/25 09:11 1 APPL Ondansetron HCl (zoFRAN 4MG INJ) 4 mg Q6H PRN IV NAUSEA/VOMITING 04/22/25 20:00 05/22/25 19:59 04/22/25 20:10 4 MG Pantoprazole Sodium (PROTonix 40MG INJ) 40 mg DAILY IVP 04/24/25 10:00 05/11/25 08:11 DC 05/10/25 09:09 40 MG Pantoprazole Sodium (PROTonix 40MG TAB) 40 mg DAILY PO 05/11/25 09:00 06/10/25 08:59 05/15/25 09:43 40 MG Pharmacy Profile Note (Pharmacy Communication) 1 each ONCE MISC 05/01/25 08:00 04/30/25 16:52 DC Pharmacy Profile Note (Pharmacy Communication) 1 each ONCE MISC 05/03/25 12:00 05/03/25 12:58 DC Pharmacy Profile Note (Pharmacy Communication) 1 each ONCE MISC 05/09/25 13:00 05/09/25 13:42 DC Potassium Chloride 100 ml @ 100 mls/hr AD PRN IV POTASSIUM PROTOCOL 04/22/25 20:00 05/22/25 19:59 Potassium Chloride (K-Dur/Klor-Con 20meq) 20 meq AD PRN PO POTASSIUM PROTOCOL 04/22/25 20:00 05/22/25 19:59 05/03/25 13:10 20 MEQ Potassium Chloride (KCl 10% Elixir 20meq/15ml) 20 meq AD PRN PO POTASSIUM PROTOCOL 04/22/25 20:00 05/22/25 19:59 Pramipexole Dihydrochloride (miraPEX 0.25MG TAB) 0.5 mg HS PO 04/24/25 21:00 05/24/25 20:59 05/14/25 20:13 0.5 MG Pregabalin (LYRica 25MG) 25 mg BID PO 05/01/25 21:00 05/05/25 07:22 DC 05/04/25 09:22 25 MG Pregabalin ([id number]) 75 mg BID PO 04/24/25 21:00 04/24/25 14:49 DC Sodium Chloride 500 ml @ 0 mls/hr Q0M IV 04/25/25 11:00 05/25/25 10:59 Sodium Zirconium Cyclosilicate (Lokelma 10gm Powder) 10 gm TID PO 04/23/25 21:00 04/23/25 14:11 DC Sodium Zirconium Cyclosilicate (Lokelma 10gm Powder) 10 gm TID PO 05/15/25 09:00 05/15/25 19:22 DC Tramadol HCl (UltRAM) 50 mg Q6H PRN PO MODERATE PAIN (4-6) 05/11/25 22:00 05/16/25 21:59 05/12/25 22:31 50 MG Tramadol HCl (UltRAM) 50 mg Q6H PRN PO MODERATE PAIN (4-6) 04/24/25 22:30 04/29/25 22:29 DC 04/28/25 13:55 50 MG Trimethoprim/ Sulfamethoxazole (BactRIM DS) 1 tab BID PO 04/25/25 21:00 04/26/25 14:50 DC 04/25/25 21:51 1 TAB Vancomycin HCl 250 ml @ 125 mls/hr Q12H IV 04/24/25 23:00 04/25/25 12:36 DC 04/25/25 11:43 125 MLS/HR Vancomycin HCl 250 ml @ 125 mls/hr Q12H IV 04/26/25 15:30 04/28/25 03:13 DC 04/27/25 15:22 125 MLS/HR Vancomycin HCl 250 ml @ 125 mls/hr Q12H IV 04/28/25 15:30 04/28/25 18:53 DC Vancomycin HCl 250 ml @ 125 mls/hr Q12H IV 04/28/25 20:00 05/02/25 20:34 DC 05/02/25 10:21 125 MLS/HR Vancomycin HCl 250 ml @ 125 mls/hr Q12H9 IV 05/04/25 21:00 05/08/25 20:49 DC 05/08/25 08:48 125 MLS/HR Vancomycin HCl (Vancomycin 750mg) 750 mg Q12H IVPB 05/08/25 21:00 05/09/25 13:30 DC 05/09/25 09:45 750 MG Vancomycin HCl (Vancomycin Protocol) 1 each AD IV 04/24/25 10:30 04/25/25 12:36 DC Vancomycin HCl (Vancomycin Protocol) 1 each AD IV 04/26/25 15:00 05/09/25 13:30 DC Venlafaxine HCl (EffEXOR XR 37.5mg CAP) 37.5 mg DAILY PO 04/24/25 16:00 05/05/25 11:18 DC 05/04/25 09:21 37.5 MG Venlafaxine HCl (EffEXOR XR 37.5mg CAP) 37.5 mg DAILY PO 04/25/25 09:00 04/24/25 14:50 DC Venlafaxine HCl (EffEXOR XR 37.5mg CAP) 37.5 mg HS PO 05/05/25 21:00 06/04/25 20:59 05/14/25 20:13 37.5 MG DIAGNOSTICS / RADIOLOGY: [ ] ASSESSMENT: Acute renal failure Persistent MRSA bacteremia Osteomyelitis of L2-L3 POA Hyperkalemia 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 Suspected Endocarditis, RAMAN deferred due to bleeding risks; unable to rule out endocarditis Status post nephrostomy tube Renate intertrigo, resolved Infectious spondylodiscitis L2-L3 Sepsis, unable to determine POA Acute hypoxic hypercapnic respiratory failure, not POA, resolved AMS due to suspected steroid induced psychosis or hepatic encephalopathy, not POA, resolved Hyperammonemia due to cirrhosis, Suspected Intractable low back pain due to spinal stenosis POA Acute urinary tract infection due to MRSA POA Hypervolemic hyponatremia POA Chronic anemia POA Hyponatremia POA Acute kidney injury on renal insufficiency POA Hyperglycemia due to uncontrolled diabetes POA Hypocalcemia POA Cirrhotic liver with splenomegaly consistent with portal hypertension per CT POA Esophageal varices Renal parenchymal disease per CT POA Hypothyroidism POA Hyperlipidemia POA Hypertension POA Anxiety disorder POA Depression POA Restless leg syndrome POA Suspected obstructive sleep apnea untreated POA Morbid obesity POA PLAN: Persistent MRSA bacteremia, * Gram positive cocci positive (MRSA) as of 05/14/25 * The patient was transferred to ICU due to clinical deterioration * Consulted critical Care team * Currently receiving daptomycin (Day 8) and ceftaroline (Day 8) per Infectious Disease (ID) recommendations. * WBC tagged scan, awaiting the final reports * Maintain contact precautions for infection control * PICC line has been removed * Monitor for creatine kinase level * Repeat blood cultures per Infectious Disease protocol to monitor clearance of bacteremia. Hyperkalemia * Potassium level was 5.3 today * Potassium level was 6.7 and repeat potassium is 5.8 (05/15) * Plan to do EKG and monitor heart rhythms * She was given calcium gluconate and Kayexalate, * Continue monitoring potassium and other electrolytes Osteomyelitis of L2-L3 POA * MRI showed: Intradiscal collection with extension into the epidural space and to the prevertebral space at the L2-L3 level, concerning for spondylodiscitis. (05/13/25) * Dr Sanchez has been consulted for further evaluation and management, As per Dr. Singh's, patient's critical condition was discussed with staff, and family. Surgical drainage remains an option, but patient requires medical optimization 1st: Planned made for aggressive medical management. * MRI showed: Supraspinatus tendinosis with high-grade partial-thickness bursal sided tear at the myotendinous junction. Infraspinatus tendinosis with low- grade partial-thickness bursal sided tear at the footplate.Subscapularis tendinosis without high-grade tear.Mild acromioclavicular and glenohumeral osteoarthritis.Mild subacromial/subdeltoid bursitis.Findings which can be seen in the setting of adhesive capsulitis. (04/28/25) Acute renal failure * Dialysis done today, removed 2500 ml (05/16) * As per the Nephrology, The patient will continue with maximum ultrafiltration as blood pressure allows. The patient is to receive 1 unit of packed red blood cells with dialysis. * Patient with worsening renal function, persistent hyperkalemia and oliguria: Dialysis recommended and done, 1500 ml removed. (05/15) * Started on lokelma 10g for 48 hours * Creatinine trending up from 1.2<1.5<1.8<1.9<2.6<3.2<4.4<4.3 * FENa <0.1 % * Started on Sevelamer 800 mg for hyperphosphatemia * We will avoid nephrotoxic drugs including NSAID. Thrombocytopenia due to ITP * D-dimer 6512 (05/14/25) * DIC panel workup showed D dimer 7068, Fibrinogen 102, APTT 43.3, PT 16.9 and INR 1.68. (05/11/25) * Vitamin K 10 mg has been given * As per Dr Lorenzo, trying to get her Promacta when available (medicine that raises the platelets) * V/Q scan unable to perform as she couldn't lie flat. * Platelets has been transfused * Continue to follow Hematology recommendations for ongoing management of thrombocytopenia. * Monitor platelet counts daily. * Monitor for bleeding or thrombotic complications. Altered Mental Status due to Hepatic Encephalopathy Suspected * Her ammonia level is less than 10 * Monitor ammonia levels, mental status, and signs of worsening encephalopathy. * Monitor neuro status and reassess mental status regularly with steroid adjustments. Intractable lower back pain, resolving * Per Dr. Sanchez, possible diagnosis of discitis and osteomyelitis at L2-L3 along with psoas inflammation. * Continue multimodal pain management: acetaminophen, topical agents * Pregabalin will be discontinued due to concern for possible medication-induced slurred speech. CT head showed no evidence of acute intracranial abnormalities. * Neuro checks q4 Cirrhosis with portal hypertension * IV albumin given every 8 hours, possible hepatorenal syndrome * LFT trending up with total bilirubin 4.3, AST 275, ALT 178 and ALT 641. * Ultrasound revealed increased echogenicity of the right kidney which may reflect renal parenchymal disease. * Fecal occult blood test positive * Liver functions improving * Monitor for decompensation: encephalopathy, ascites, variceal bleeding. * Consider beta sergio for variceal prophylaxis. * Monitor LFTs, INR, and ammonia * Her MELD- Na score is 24 points, 14-15% estimated 90 day mortality Acute UTI, resolved * Monitor for signs of urosepsis * Encourage hydration and bladder care Hyponatremia, resolved * Monitor serum Na closely; consider fluid restriction if dilutional. Renate intertrigo, resolved * Patient is improved significantly * The patient was given fluconazole 150 mg 1 dose today, gradually resolving Hyperglycemia (Uncontrolled Diabetes) * Lantus is 30 units daily as per endocrinology recommendations, and continue for regular insulin 10 units TIDAC before meals. * Blood glucose level is trending down to 106 * Monitor blood glucose QID * Educate on diet and insulin compliance; monitor for DKA if concern. * Correct electrolytes accordingly. Chronic anemia * H/o esophageal varices due to cirrhosis with portal hypertension * Per GI, hold off on EGD given no overt GI bleeding and stable hemoglobin * Monitor trends, H&H daily * Avoid transfusion unless symptomatic or Hgb <7. We will order morning labs. Further orders per hospitalization course. We will Closely monitor the patient ATTESTATION BY PHYSICIAN I have seen and examined the patient. I reviewed the documentation, medical decision making, and treatment plan as noted by the resident provider above. I agree with the findings and plan of care. Cory Pimentel MD [facility],YOLANDA PERSAUD May 16, 2025 16:15
[2025-05-16 16:24] LABS: INR > 7.00 (0.85-1.15)
[2025-05-16] MEDS: [UNRECOGNIZED DRUG - OTHER] IV SCH (17:32)
[2025-05-16] MEDS: DAPTOMYCIN IV SCH (17:32)
--- NOTE | 2025-05-16 17:58 | NUR ---
Placed initial called to [facility], spoke with Deep, reference number is [id number].
--- NOTE | 2025-05-16 19:58 | PN ---
INFECTIOUS DISEASE FOLLOWUP NOTE DATE OF SERVICE: 05/16/2025. SUBJECTIVE: Elderly female, is seen today. No fever, no chills. The patient remains encephalopathic, still in ICU. The patient has a second session of dialysis today. The patient has no fever, tolerates antibiotic. No family at this time. No . No rash, no itchiness OBJECTIVE: VITAL SIGNS: Temperature 98.9. EYES: There is jaundice. No conjunctival hemorrhage. HEENT: No oral thrush seen. Moist oral mucosa. NECK: Supple. No JVD or thyromegaly. LUNGS: Good air entry. No rales. No rhonchi. CARDIOVASCULAR: S1, S2, regular. No murmur heard. ABDOMEN: Morbidly obese. Soft, nontender. Bowel sound is present. CENTRAL NERVOUS SYSTEM: The patient is awake, but encephalopathic. SKIN: No rashes, no itchiness. LYMPHATIC: No peripheral lymphadenopathy. BACK: No deformity, no pressure ulcer. HEMATOLOGIC: No bleeding or petechial lesions present. EXTREMITIES: Pitting edema of lower extremities. ASSESSMENT: A 54-year-old female with multiple problems including. * MRSA bacteremia. * Lumbar spine diskitis and osteomyelitis. * Epidural abscess. * Renal failure, requiring dialysis. * Liver cirrhosis. * Hepatic encephalopathy. * Thrombocytopenia. PLAN: * Continue ceftaroline. * Continue daptomycin. * Continue critical care support. * Continue dialysis. * Continue pain management. * Continue GI prophylaxis. * Monitor electrolytes. * Continue antiemetics. * Continue lactulose. * Continue . TID: [id number] RECEIPT: [id number]
[2025-05-16] MEDS: PHARMACY COMMUNICATION MISC SCH (20:21)
[2025-05-16] MEDS: PHYTONADIONE 10 MG in 0.9%NACL 50ML 50 ML IVPB SCH (21:53)
[2025-05-16 22:29] LABS: IMMATURE GRANULOCYTE ABSOLUTE 0.02 K/uL (0-1); RED BLOOD CELL COUNT(AUTO) 2.32 MIL/uL (4.00-5.50); RED CELL DISTRIBUTION WIDTH 28.0 % (11.0-15.5); WHITE BLOOD COUNT (AUTO) 3.6 K/uL (4.8-10.8)
[2025-05-16 22:37] LABS: PLATELET COUNT (AUTO) 10 K/uL (130-400)
[2025-05-16 22:39] LABS: CREATININE 3.7 mg/dL (0.5-1.0); GLOMERULAR FILTR. RATE CALC 14.0 mL/min (>90); GLUCOSE,RANDOM 170.0 mg/dL (70-105); SODIUM SERUM 137.0 mmol/L (136-145); UREA NITROGEN, BLOOD 59.0 mg/dL (7-18)
[2025-05-16 22:40] LABS: INR 2.03 (0.85-1.15)
[2025-05-16 22:48] LABS: PLATELET COUNT (AUTO) 10 K/uL (130-400)
[2025-05-16 23:16] LABS: ABG BASE EXCESS -4.6 mmol/L (-2.0-3.0); ABG HCO3 20.1 mmol/L (21.0-28.0); ABG OXYGEN SATURATION 96.2 % (94.0-98.0); ABG PCO2 35 mmHg (32-45); ABG PH 7.374 (7.350-7.450); CARBON MONOXIDE 1.9 % (0.5-1.5); DEVICE COMMENT RT RAD; PO2, ARTERIAL BG 91.8 mmHg (83.0-108.0); TEMPERATURE, CELSIUS BG 37.0 CELSIUS (35.5-37.0); VENT MODE, BG 3LNC (ROOM AIR)
[2025-05-16 23:42] LABS: LYMPHOCYTES % (MANUAL) 5 % (22-44); MAN.DIFF COMMENT-IMPRESSION MANUAL DIFFERENTIAL; NUCLEATED RED BLOOD CELLS 1.8 % (0.0-0.19); SEGMENTED NEUTROPHILS % 95 % (40-70)
[2025-05-16 23:46] LABS: PLATELET MORPHOLOGY COMMENT MARKED DECREASE
[2025-05-17] VITALS (113 sets, daily range): BP systolic 87–142; BP diastolic 33–75; PULSE 67–104; RESP 8–64; TEMP 97.8–98.6; O2SAT 98–100
--- NOTE | 2025-05-17 03:12 | HMCIMG ---
EXAM: CR Chest, 1 view. CLINICAL HISTORY: Shortness of breath. COMPARISON: CR dated 05/15/2025. FINDINGS: The right side central venous sheath tip overlies the distal SVC. Mild to moderate cardiomegaly, pulmonary vascular congestion, and diffuse interstitial edema bilaterally. Questionable small pleural effusions bilaterally. No pneumothorax. No acute osseous abnormality. IMPRESSION: Mild to moderate cardiomegaly, pulmonary vascular congestion, and diffuse interstitial edema bilaterally. Questionable small pleural effusions bilaterally. No gross interval changes. /[place]
[2025-05-17 04:33] LABS: IMMATURE GRANULOCYTE ABSOLUTE 0.02 K/uL (0-1); NUCLEATED RED BLOOD CELLS 0.5 % (0.0-0.19); RED BLOOD CELL COUNT(AUTO) 2.56 MIL/uL (4.00-5.50); RED CELL DISTRIBUTION WIDTH 27.6 % (11.0-15.5); WHITE BLOOD COUNT (AUTO) 3.8 K/uL (4.8-10.8)
[2025-05-17 04:38] LABS: PLATELET COUNT (AUTO) 10 K/uL (130-400)
[2025-05-17 04:55] LABS: ASPARTATE AMINOTRANSFERASE 170.0 U/L (10-37); CREATININE 4.2 mg/dL (0.5-1.0); GLOMERULAR FILTR. RATE CALC 12.0 mL/min (>90); GLUCOSE,RANDOM 203.0 mg/dL (70-105); PHOSPHORUS 7.6 mg/dL (2.5-4.9); SODIUM SERUM 137.0 mmol/L (136-145); TOTAL PROTEIN, SERUM 7.0 g/dL (6.0-8.3); UREA NITROGEN, BLOOD 67.0 mg/dL (7-18)
--- NOTE | 2025-05-17 08:34 | HMCIMG ---
CHEST 1VW REASON: HEMOPTYSIS COMPARISON: Prior chest radiograph from 05/16/2025 is available. FINDINGS: There is mild cardiomegaly with diffuse interstitial pulmonary edema which was not seen on prior radiograph. There is no pleural effusion seen. There is a right internal jugular hemodialysis temporary catheter with tip in superior vena cava. IMPRESSION: 1. Interstitial pulmonary edema which was not seen on the prior radiograph 2. Cardiomegaly 2. Right-sided internal jugular hemodialysis catheter in place.
--- NOTE | 2025-05-17 08:41 | HMCIMG ---
US VENOUS DOPPLER BILATERAL HISTORY: No additional history given. COMPARISON: None TECHNIQUE: Bilateral upper extremity venous Doppler ultrasound study was performed. FINDINGS: There is a deep vein thrombosis seen in the right cephalic vein. The basilic vein on the right is not visible due to central line in place: Otherwise The subclavian, axillary, and brachial veins are visualized. Normal flow with augmentation and compressibilities are demonstrated. The cephalic veins are also seen and grossly patent. IMPRESSION: . The deep vein thrombosis involving the right cephalic vein Otherwise the remaining bilateral lower extremity has no evidence of deep vein thrombosis.
--- NOTE | 2025-05-17 08:41 | HMCIMG ---
US VENOUS DOPPLER BILATERAL REASON: ELEVATED D DIMER (lower) COMPARISON: None Technique: Bilateral venous doppler ultrasound was performed with spectral analysis and color flow imaging technique. FINDINGS: There is a normal appearance of the common femoral, deep femoral, the profunda femoris and popliteal veins. Proximal calf veins appear normal as well. There is normal response to compression and augmentation. There is no evidence of deep venous thrombosis. IMPRESSION: Normal bilateral lower extremity venous Doppler ultrasound.
--- NOTE | 2025-05-17 08:58 | NUR ---
CHAIM MCLAIN [employer] FOR DR PRIDE
--- NOTE | 2025-05-17 09:03 | PN ---
Phone endocrinology progress note Date of Service: May 17, 2025 subjective: glucose are improving and off steroid now. hba1c 9.2, home regimen: lantus 30 units daily and humalog 10 units tid before meals. patient glucose are improving. s/p right nephrostomy tube, thrombocytopenia, UTI and gram positive. Bacteremia. liver cirrhosis. on HD PAST MEDICAL HISTORY: [undiagnosed obstructive sleep apnea, diabetes type 2, hypertension, hyperlipidemia, hypothyroidism, restless leg syndrome, anxiety disorder,depression, lupus and severe morbid obesity ] PAST SURGICAL HISTORY: [ Cholecystectomy, tubal ligation] PAST SOCIAL HISTORY: [ Patient lives with . Patient denies alcohol tobacco and recreational drug use] FAMILY HISTORY: [ Hypertension, diabetes, cardiovascular disease and Alzheimer's disease ] Coded Allergies: No Known Allergies (Unverified Allergy, Unknown, 08/26/14) ASSESSMENT: glucose are improving and off steroid now. glucose runs low normal, so hold premeal insulin. hba1c 9.2, home regimen: lantus 30 units daily and humalog 10 units tid before meals. Intractable low back pain POA L2/L3 OSTEOMYELITIS Acute thrombocytopenia POA s/p IVIG Acute urinary tract infection POA On antibiotics. Bacteremia, MRSA on antibiotics. right kidney hydronephrosis s/p right nephrostomy tube Chronic anemia POA Hyponatremia POA improved Acute kidney injury on renal insufficiency POA improving Hypocalcemia POA stable Cirrhotic liver with splenomegaly consistent with portal hypertension per CT POA Renal parenchymal disease per CT POA Hypothyroidism POA ON LEVOTHYROXINE Hyperlipidemia POA Hypertension POA Anxiety disorder POA Depression POA Restless leg syndrome POA Suspected obstructive sleep apnea untreated POA Morbid obesity POA PLAN: continue lantus 20 units daily hold regular insulin 10 units qac before meals continue medium dose ssi monitor glucose qx6 hourly continue levothyroxine 125 mcg daily. Vitals/Labs Vital Signs Date Time Temp Pulse Resp B/P (MAP) Pulse Ox O2 Delivery O2 Flow Rate FiO2 05/17/25 08:12 98.6 87 26 121/37 (65) 100 05/17/25 07:03 Non Rebreather 15.0 05/17/25 07:00 100 Laboratory Tests 05/16/25 22:14 05/17/25 04:07 Medications Current Medications Sodium Chloride 1,000 ml @ 0 mls/hr ONCE ONCE IV Last administered on 04/22/25at 17:27; Start 04/22/25 at 17:00; Stop 04/22/25 at 17:01; Status DC Ceftriaxone Sodium 1 gm ONCE ONCE IVPB Last administered on 04/22/25at 19:43; Start 04/22/25 at 19:00; Stop 04/22/25 at 19:01; Status DC Acetaminophen 650 mg Q6H PRN PO Last administered on 04/23/25at 10:02; Start 04/22/25 at 20:00; Stop 05/22/25 at 19:59 Acetaminophen 650 mg Q4H PRN PO Last administered on 05/11/25at 21:31; Start 04/22/25 at 20:00; Stop 05/22/25 at 19:59 Ondansetron HCl 4 mg Q6H PRN IV Last administered on 04/22/25at 20:10; Start 04/22/25 at 20:00; Stop 05/22/25 at 19:59 Famotidine 20 mg DAILY PO Last administered on 04/23/25at 09:33; Start 04/23/25 at 09:00; Stop 04/24/25 at 09:48; Status DC Ceftriaxone Sodium 1 gm/ Sodium Chloride 50 ml @ 100 mls/hr BID IV; Start 04/22/25 at 21:00; Stop 04/22/25 at 19:59; Status DC Lactated Ringer's 1,000 ml @ 100 mls/hr Q10H IV Last administered on 04/23/25at 06:00; Start 04/22/25 at 20:00; Stop 04/23/25 at 10:09; Status DC Insulin Human Regular INSULIN SLIDING SCAL... ACHS SQ Last administered on 04/24/25at 11:18; Start 04/22/25 at 21:00; Stop 04/24/25 at 16:16; Status DC Dextrose 50 ml AD PRN IV; Start 04/22/25 at 20:00; Stop 05/22/25 at 19:59 Glucagon 1 mg AD PRN IM; Start 04/22/25 at 20:00; Stop 05/22/25 at 19:59 Magnesium Sulfate 50 ml @ 0 mls/hr PROTOCOL PRN IV; Start 04/22/25 at 20:00; Stop 05/22/25 at 19:59 Potassium Chloride 100 ml @ 100 mls/hr AD PRN IV; Start 04/22/25 at 20:00; Stop 05/22/25 at 19:59 Potassium Chloride 20 meq AD PRN PO; Start 04/22/25 at 20:00; Stop 05/22/25 at 19:59 Potassium Chloride 20 meq AD PRN PO Last administered on 05/03/25at 13:10; Start 04/22/25 at 20:00; Stop 05/22/25 at 19:59 Ceftriaxone Sodium 1 gm BID IVPB; Start 04/22/25 at 21:00; Stop 04/22/25 at 20:44; Status DC Morphine Sulfate 4 mg ONCE ONCE IVP Last administered on 04/22/25at 20:11; Start 04/22/25 at 20:30; Stop 04/22/25 at 20:31; Status DC Lidocaine 1 each ONCE ONCE TP Last administered on 04/22/25at 21:14; Start 04/22/25 at 21:00; Stop 04/22/25 at 21:01; Status DC Ceftriaxone Sodium 1 gm BID IVPB Last administered on 04/25/25at 09:44; Start 04/23/25 at 09:00; Stop 04/25/25 at 12:36; Status DC Methylprednisolone Sodium Succinate 125 mg Q6H IVP Last administered on 04/25/25at 09:45; Start 04/23/25 at 08:00; Stop 04/28/25 at 09:10; Status DC Albuterol Sulfate 1.25 ONCE ONCE IH Last administered on 04/23/25at 09:40; Start 04/23/25 at 09:30; Stop 04/23/25 at 09:31; Status DC Calcium Gluconate 1 gm ONCE ONCE IV Last administered on 04/23/25at 10:55; Start 04/23/25 at 10:30; Stop 04/23/25 at 10:31; Status DC Sodium Chloride 50 ml @ 0 mls/hr ONCE ONCE IV Last administered on 04/23/25at 11:00; Start 04/23/25 at 11:00; Stop 04/23/25 at 11:01; Status DC Sodium Zirconium Cyclosilicate 10 gm ONCE ONCE PO Last administered on 04/23/25at 14:14; Start 04/23/25 at 14:00; Stop 04/23/25 at 16:08; Status DC Hydromorphone HCl 0.5 mg Q6H PRN IVP Last administered on 04/25/25at 04:14; Start 04/23/25 at 14:00; Stop 04/25/25 at 08:25; Status DC Sodium Zirconium Cyclosilicate 10 gm TID PO; Start 04/23/25 at 21:00; Stop 04/23/25 at 14:11; Status DC Pantoprazole Sodium 40 mg DAILY IVP Last administered on 05/10/25at 09:09; Start 04/24/25 at 10:00; Stop 05/11/25 at 08:11; Status DC Pregabalin 75 mg BID PO; Start 04/24/25 at 21:00; Stop 04/24/25 at 14:49; Status DC Vancomycin HCl 1 each AD IV; Start 04/24/25 at 10:30; Stop 04/25/25 at 12:36; Status DC Vancomycin HCl 500 ml @ 250 mls/hr ONCE ONCE IV Last administered on 04/24/25at 12:46; Start 04/24/25 at 11:00; Stop 04/24/25 at 12:59; Status DC Vancomycin HCl 250 ml @ 125 mls/hr Q12H IV Last administered on 04/25/25at 11:43; Start 04/24/25 at 23:00; Stop 04/25/25 at 12:36; Status DC Insulin Glargine 10 units HS SQ; Start 04/24/25 at 21:00; Stop 04/24/25 at 16:57; Status DC Insulin Glargine 10 units ONCE STAT SQ Last administered on 04/24/25at 11:19; Start 04/24/25 at 10:54; Stop 04/24/25 at 11:00; Status DC Atorvastatin Calcium 20 mg HS PO Last administered on 05/12/25at 20:57; Start 04/24/25 at 21:00; Stop 05/13/25 at 15:42; Status DC Gabapentin 300 mg BID PO Last administered on 04/25/25at 21:51; Start 04/24/25 at 21:00; Stop 04/28/25 at 09:10; Status DC Levothyroxine Sodium 125 mcg DAILY@0630 PO Last administered on 05/15/25at 05:57; Start 04/25/25 at 06:30; Stop 05/25/25 at 06:29 Metoprolol Succinate 50 mg AM PO Last administered on 05/13/25at 08:48; Start 04/25/25 at 09:00; Stop 05/16/25 at 09:11; Status DC Venlafaxine HCl 37.5 mg DAILY PO; Start 04/25/25 at 09:00; Stop 04/24/25 at 14:50; Status DC Pramipexole Dihydrochloride 0.5 mg HS PO Last administered on 05/14/25at 20:13; Start 04/24/25 at 21:00; Stop 05/24/25 at 20:59 Venlafaxine HCl 37.5 mg DAILY PO Last administered on 05/04/25at 09:21; Start 04/24/25 at 16:00; Stop 05/05/25 at 11:18; Status DC Insulin Human Regular INSULIN SLIDING SCAL... ACHS SQ Last administered on 04/25/25at 11:57; Start 04/24/25 at 16:30; Stop 04/25/25 at 14:09; Status DC Insulin Glargine 15 units HS SQ; Start 04/24/25 at 21:00; Stop 04/24/25 at 17:06; Status DC Insulin Human Regular 5 unit TIDAC SQ; Start 04/24/25 at 17:00; Stop 04/24/25 at 17:06; Status DC Insulin Glargine 30 units ONCE SQ Last administered on 04/24/25at 18:16; Start 04/24/25 at 17:00; Stop 04/25/25 at 06:19; Status DC Insulin Human Regular 10 unit TIDAC SQ Last administered on 04/25/25at 06:15; Start 04/24/25 at 17:00; Stop 04/25/25 at 06:17; Status DC Tramadol HCl 50 mg Q6H PRN PO Last administered on 04/28/25at 13:55; Start 04/24/25 at 22:30; Stop 04/29/25 at 22:29; Status DC Insulin Human Regular 25 unit TIDAC SQ Last administered on 04/25/25at 17:39; Start 04/25/25 at 07:30; Stop 04/26/25 at 07:58; Status DC Insulin Glargine 70 units ONCE ONCE SQ Last administered on 04/25/25at 06:27; Start 04/25/25 at 06:30; Stop 04/25/25 at 06:31; Status DC Hydromorphone HCl 0.5 mg BIDPRN PRN IVP Last administered on 04/29/25at 23:31; Start 04/25/25 at 19:00; Stop 04/30/25 at 11:59; Status DC Heparin Sodium (Porcine) 5,000 unit Q8H SQ; Start 04/25/25 at 09:00; Stop 04/25/25 at 08:40; Status DC Lactulose 30 gm TID PO Last administered on 04/30/25at 09:16; Start 04/25/25 at 11:00; Stop 04/30/25 at 09:45; Status DC Sodium Chloride 500 ml @ 0 mls/hr Q0M IV; Start 04/25/25 at 11:00; Stop 05/25/25 at 10:59 Trimethoprim/ Sulfamethoxazole 1 tab BID PO Last administered on 04/25/25at 21:51; Start 04/25/25 at 21:00; Stop 04/26/25 at 14:50; Status DC Insulin Human Regular INSULIN SLIDING SCAL... ACHS SQ Last administered on 05/04/25at 20:49; Start 04/25/25 at 16:30; Stop 05/04/25 at 23:42; Status DC Diazepam 10 mg ONCE ONCE IM; Start 04/25/25 at 15:00; Stop 04/25/25 at 15:01; Status DC Lactulose 200 gm ONCE ONCE AL Last administered on 04/25/25at 17:30; Start 04/25/25 at 16:30; Stop 04/25/25 at 16:31; Status DC Lorazepam 0.5 mg ONCE ONCE PO Last administered on 04/25/25at 19:07; Start 04/25/25 at 19:00; Stop 04/25/25 at 19:01; Status DC Haloperidol Lactate 1 mg ONCE ONCE IM Last administered on 04/26/25at 05:17; Start 04/26/25 at 05:00; Stop 04/26/25 at 05:02; Status DC Insulin Human Regular 15 unit TIDAC SQ; Start 04/26/25 at 11:30; Stop 04/27/25 at 20:30; Status DC Insulin Glargine 50 units DAILY SQ Last administered on 04/28/25at 08:46; Start 04/26/25 at 09:00; Stop 04/29/25 at 06:49; Status DC Dextrose 1,000 ml @ 75 mls/hr [id number] IV Last administered on 04/29/25at 04:27; Start 04/26/25 at 12:00; Stop 04/30/25 at 09:36; Status DC Dexmedetomidine/ Sodium Chloride 200 mcg PROTOCOL IV; Start 04/26/25 at 12:00; Stop 04/26/25 at 14:54; Status DC Dexmedetomidine/ Sodium Chloride 400 mcg STK-MED ONCE IV; Start 04/26/25 at 14:49; Stop 04/26/25 at 14:50; Status DC Vancomycin HCl 1 each AD IV; Start 04/26/25 at 15:00; Stop 05/09/25 at 13:30; Status DC Dexmedetomidine/ Sodium Chloride 400 mcg PROTOCOL STAT IV Last administered on 04/26/25at 15:18; Start 04/26/25 at 14:53; Stop 04/26/25 at 14:58; Status DC Vancomycin HCl 250 ml @ 125 mls/hr Q12H IV Last administered on 04/27/25at 15:22; Start 04/26/25 at 15:30; Stop 04/28/25 at 03:13; Status DC Dexmedetomidine/ Sodium Chloride 400 mcg PROTOCOL PRN IV Last administered on 04/27/25at 23:31; Start 04/26/25 at 19:30; Stop 05/01/25 at 12:45; Status DC Dexmedetomidine/ Sodium Chloride 400 mcg STK-MED ONCE IV Last administered on 04/26/25at 19:14; Start 04/26/25 at 19:10; Stop 04/26/25 at 19:11; Status DC Insulin Human Regular INSULIN SLIDING SCAL... Q4H SQ Last administered on 04/28/25at 06:00; Start 04/27/25 at 20:30; Stop 04/28/25 at 09:11; Status DC Vancomycin HCl 250 ml @ 125 mls/hr Q12H IV; Start 04/28/25 at 15:30; Stop 04/28/25 at 18:53; Status DC Insulin Human Regular 8 unit TIDAC SQ Last administered on 04/30/25at 06:15; Start 04/28/25 at 07:30; Stop 04/30/25 at 07:31; Status DC Vancomycin HCl 250 ml @ 125 mls/hr Q12H IV Last administered on 05/02/25at 10:21; Start 04/28/25 at 20:00; Stop 05/02/25 at 20:34; Status DC Insulin Glargine 40 units DAILY SQ; Start 04/29/25 at 09:00; Stop 04/30/25 at 07:31; Status DC Lidocaine HCl 50 ml STK-MED ONCE .ROUTE; Start 04/29/25 at 16:03; Stop 04/29/25 at 16:06; Status DC Heparin Sodium/ Sodium Chloride 500 ml @ As Directed STK-MED ONCE IV; Start 04/29/25 at 16:03; Stop 04/29/25 at 16:06; Status DC Iodixanol 100 ml STK-MED ONCE .ROUTE; Start 04/29/25 at 16:04; Stop 04/29/25 at 16:06; Status DC Fentanyl Citrate 100 mcg STK-MED ONCE .ROUTE; Start 04/29/25 at 16:27; Stop 04/29/25 at 16:28; Status DC Midazolam HCl 2 mg STK-MED ONCE .ROUTE; Start 04/29/25 at 16:28; Stop 04/29/25 at 16:28; Status DC Midazolam HCl 2 mg STK-MED ONCE .ROUTE; Start 04/29/25 at 16:52; Stop 04/29/25 at 16:52; Status DC Lidocaine 1 each ONCE ONCE TP Last administered on 04/29/25at 19:18; Start 04/29/25 at 18:30; Stop 04/29/25 at 18:33; Status DC Insulin Glargine 50 units DAILY SQ Last administered on 05/04/25at 09:30; Start 04/30/25 at 09:00; Stop 05/05/25 at 07:21; Status DC Insulin Human Regular 12 unit TIDAC SQ Last administered on 05/02/25at 06:45; Start 04/30/25 at 07:30; Stop 05/02/25 at 08:05; Status DC Hydromorphone HCl 1 mg TIDP PRN IVP Last administered on 04/30/25at 20:44; Start 04/30/25 at 13:00; Stop 05/01/25 at 18:46; Status DC Acetaminophen/ Hydrocodone Bitart 1 tab Q4H PRN PO Last administered on 04/30/25at 22:07; Start 04/30/25 at 12:00; Stop 05/05/25 at 11:59; Status DC Pharmacy Profile Note 1 each ONCE MISC; Start 05/01/25 at 08:00; Stop 04/30/25 at 16:52; Status DC Immune Globulin 400 ml @ 0 mls/hr Q24H IV Last administered on 05/01/25at 16:18; Start 05/01/25 at 14:00; Stop 05/02/25 at 12:38; Status DC Pregabalin 25 mg BID PO Last administered on 05/04/25at 09:22; Start 05/01/25 at 21:00; Stop 05/05/25 at 07:22; Status DC Lisinopril 10 mg DAILY PO Last administered on 05/12/25at 09:13; Start 05/02/25 at 09:00; Stop 05/13/25 at 08:46; Status DC Diphenhydramine HCl 25 mg ONCE PRN IVP; Start 05/01/25 at 15:00; Stop 05/01/25 at 15:06; Status DC Dexamethasone Sodium Phosphate 20 mg ONCE PRN IV; Start 05/01/25 at 15:00; Stop 05/01/25 at 15:05; Status DC Dexamethasone Sodium Phosphate 20 mg ONCALL IV Last administered on 05/02/25at 15:41; Start 05/01/25 at 15:30; Stop 05/03/25 at 15:31; Status DC Diphenhydramine HCl 25 mg ONCALL IVP Last administered on 05/02/25at 15:41; Start 05/01/25 at 15:30; Stop 05/03/25 at 15:31; Status DC Hydromorphone HCl 1 mg TID PRN IVP; Start 05/01/25 at 19:00; Stop 05/05/25 at 12:59; Status DC Insulin Human Regular 15 unit TIDAC SQ Last administered on 05/04/25at 17:33; Start 05/02/25 at 11:30; Stop 05/05/25 at 07:21; Status DC Immune Globulin 400 ml @ 0 mls/hr Q24H IV Last administered on 05/02/25at 16:46; Start 05/02/25 at 16:00; Stop 05/03/25 at 16:01; Status DC Vancomycin HCl 250 ml @ 125 mls/hr Q12H9 IV Last administered on 05/08/25at 08:48; Start 05/04/25 at 21:00; Stop 05/08/25 at 20:49; Status DC Pharmacy Profile Note 1 each ONCE [facility] [place]; Start 05/03/25 at 12:00; Stop 05/03/25 at 12:58; Status DC Gentamicin Sulfate/Sodium Chloride 100 ml @ 200 mls/hr Q24H IV Last administered on 05/08/25at 14:18; Start 05/03/25 at 14:00; Stop 05/08/25 at 21:01; Status DC Dexamethasone Sodium Phosphate 20 mg ONCALL IV Last administered on 05/03/25at 17:23; Start 05/03/25 at 17:15; Stop 05/03/25 at 17:16; Status DC Diphenhydramine HCl 25 mg ONCALL IVP Last administered on 05/03/25at 17:22; Start 05/03/25 at 17:15; Stop 05/03/25 at 17:16; Status DC Immune Globulin 400 ml @ 0 mls/hr Q24H IV Last administered on 05/03/25at 17:57; Start 05/03/25 at 17:15; Stop 05/03/25 at 17:16; Status DC Fluconazole 150 mg ONCE ONCE PO Last administered on 05/04/25at 15:57; Start 05/04/25 at 15:30; Stop 05/04/25 at 15:31; Status DC Insulin Human Regular INSULIN SLIDING SCAL... ACHS SQ Last administered on 05/17/25at 07:18; Start 05/05/25 at 07:30; Stop 06/04/25 at 07:29 Insulin Glargine 30 units DAILY SQ Last administered on 05/07/25at 08:12; Start 05/05/25 at 09:00; Stop 05/07/25 at 23:47; Status DC Insulin Human Regular 12 unit TIDAC SQ; Start 05/05/25 at 07:30; Stop 05/05/25 at 22:51; Status DC Venlafaxine HCl 37.5 mg HS PO Last administered on 05/14/25at 20:13; Start 05/05/25 at 21:00; Stop 06/04/25 at 20:59 Insulin Human Regular 10 unit TIDAC SQ Last administered on 05/07/25at 16:06; Start 05/06/25 at 07:30; Stop 05/07/25 at 23:47; Status DC Dexamethasone Sodium Phosphate 10 mg ONCE ONCE IVP Last administered on 05/06/25at 20:20; Start 05/06/25 at 20:00; Stop 05/06/25 at 20:04; Status DC Diphenhydramine HCl 25 mg ONCE ONCE IV Last administered on 05/06/25at 20:20; Start 05/06/25 at 20:00; Stop 05/06/25 at 20:04; Status DC Insulin Glargine 40 units DAILY SQ Last administered on 05/12/25at 09:15; Start 05/08/25 at 09:00; Stop 05/13/25 at 06:31; Status DC Insulin Human Regular 15 unit TIDAC SQ Last administered on 05/08/25at 17:16; Start 05/08/25 at 07:30; Stop 05/09/25 at 06:24; Status DC Vancomycin HCl 750 mg Q12H IVPB Last administered on 05/09/25at 09:45; Start 05/08/25 at 21:00; Stop 05/09/25 at 13:30; Status DC Gentamicin Sulfate/Sodium Chloride 100 ml @ 200 mls/hr Q12H IV Last administered on 05/09/25at 01:36; Start 05/09/25 at 02:00; Stop 05/09/25 at 13:30; Status DC Insulin Human Regular 18 unit TIDAC SQ Last administered on 05/09/25at 06:49; Start 05/09/25 at 07:30; Stop 05/10/25 at 09:56; Status DC Heparin Sodium (Porcine) 5,000 unit STK-MED ONCE .ROUTE Last administered on 05/09/25at 10:07; Start 05/09/25 at 09:57; Stop 05/09/25 at 09:57; Status DC Pharmacy Profile Note 1 each ONCE MISC; Start 05/09/25 at 13:00; Stop 05/09/25 at 13:42; Status DC Nystatin apply abdominal fold/perineum BID TP Last administered on 05/16/25at 21:35; Start 05/09/25 at 21:00; Stop 06/08/25 at 20:59 Daptomycin 1000 mg/Sodium Chloride 100 ml @ 200 mls/hr Q24H IV Last administered on 05/11/25at 16:20; Start 05/09/25 at 15:00; Stop 05/12/25 at 17:41; Status DC Ceftaroline Fosamil 400 mg/ Sodium Chloride 250 ml @ 250 mls/hr Q12H IV Last administered on 05/14/25at 17:20; Start 05/09/25 at 17:00; Stop 05/15/25 at 04:40; Status DC Insulin Human Regular 10 unit TIDAC SQ Last administered on 05/11/25at 12:10; Start 05/10/25 at 11:30; Stop 06/09/25 at 11:29; Status Hold Diphenhydramine HCl 25 mg ONCE ONCE IV Last administered on 05/11/25at 01:55; Start 05/11/25 at 02:00; Stop 05/11/25 at 02:01; Status DC Lidocaine 1 patch ONCE ONCE TP Last administered on 05/11/25at 05:34; Start 05/11/25 at 05:30; Stop 05/11/25 at 05:32; Status DC Pantoprazole Sodium 40 mg DAILY PO Last administered on 05/15/25at 09:43; Start 05/11/25 at 09:00; Stop 06/10/25 at 08:59 Tramadol HCl 50 mg Q6H PRN PO Last administered on 05/12/25at 22:31; Start 05/11/25 at 22:00; Stop 05/16/25 at 21:59; Status DC Lidocaine 1 patch Q24H TP Last administered on 05/17/25at 05:02; Start 05/12/25 at 05:00; Stop 06/11/25 at 04:59 Phytonadione 10 mg/Sodium Chloride 51 ml @ 100 mls/hr ONCE ONCE IVPB Last administered on 05/12/25at 16:53; Start 05/12/25 at 16:00; Stop 05/12/25 at 16:30; Status DC Daptomycin 1000 mg/Sodium Chloride 100 ml @ 200 mls/hr Q24H IV Last administered on 05/14/25at 19:14; Start 05/12/25 at 18:00; Stop 05/15/25 at 18:10; Status DC Gadoterate Meglumine 10 mmol STK-MED ONCE IV; Start 05/12/25 at 17:55; Stop 05/12/25 at 18:00; Status DC Insulin Glargine 30 units DAILY SQ; Start 05/13/25 at 09:00; Stop 05/14/25 at 23:09; Status DC Lactose 237 ml ONCE ONCE PO; Start 05/13/25 at 13:00; Stop 05/13/25 at 20:20; Status DC Albumin Human 100 ml @ 0 mls/hr AD IV; Start 05/13/25 at 16:00; Stop 05/14/25 at 14:47; Status DC Sevelamer HCl 800 mg ONCE ONCE PO Last administered on 05/14/25at 12:44; Start 05/14/25 at 12:30; Stop 05/14/25 at 12:34; Status DC Albumin Human 100 ml @ 0 mls/hr Q8H6 IV; Start 05/14/25 at 15:00; Stop 05/14/25 at 15:59; Status DC Albumin Human 100 ml @ 0 mls/hr ONCE ONCE IV Last administered on 05/14/25at 20:14; Start 05/14/25 at 18:00; Stop 05/14/25 at 18:01; Status DC Dexmedetomidine HCl 400 mcg/ Sodium Chloride 100 ml @ 0 mls/hr AD PRN IV; Start 05/14/25 at 20:00; Stop 05/14/25 at 20:01; Status DC Prednisone 10 mg ONCE ONCE PO Last administered on 05/14/25at 20:13; Start 05/14/25 at 20:00; Stop 05/14/25 at 20:02; Status DC Dexmedetomidine/ Sodium Chloride 400 mcg PROTOCOL IV Last administered on 05/17/25at 03:23; Start 05/14/25 at 20:30; Stop 06/13/25 at 20:29 Insulin Glargine 20 units DAILY SQ; Start 05/15/25 at 09:00; Stop 06/14/25 at 08:59 Norepinephrine 250 ml @ 0 mls/hr AD PRN IV Last administered on 05/17/25at 03:23; Start 05/14/25 at 23:30; Stop 06/13/25 at 23:29 Norepinephrine 250 ml @ As Directed STK-MED ONCE IV; Start 05/14/25 at 23:15; Stop 05/14/25 at 23:16; Status DC Ceftaroline Fosamil 300 mg/ Sodium Chloride 250 ml @ 125 mls/hr Q8H IV Last administered on 05/15/25at 15:22; Start 05/15/25 at 05:00; Stop 05/15/25 at 18:18; Status DC Sodium Bicarbonate 50 meq ONCE ONCE IV Last administered on 05/15/25at 07:29; Start 05/15/25 at 07:00; Stop 05/15/25 at 07:01; Status DC Albuterol Sulfate 10 mg ONCE ONCE IH Last administered on 05/15/25at 07:02; Start 05/15/25 at 07:00; Stop 05/15/25 at 07:01; Status DC Furosemide 40 mg ONCE ONCE IV Last administered on 05/15/25at 07:31; Start 05/15/25 at 07:00; Stop 05/15/25 at 07:01; Status DC Dextrose 50 ml ONCE ONCE IV Last administered on 05/15/25at 07:29; Start 05/15/25 at 07:00; Stop 05/15/25 at 07:01; Status DC Insulin Human Regular 10 unit ONCE ONCE IV Last administered on 05/15/25at 07:33; Start 05/15/25 at 07:00; Stop 05/15/25 at 07:01; Status DC Calcium Gluconate 1 gm ONCE ONCE IVPB; Start 05/15/25 at 07:00; Stop 05/15/25 at 07:01; Status DC Sodium Polystyrene Sulfonate 15 gm ONCE ONCE PO Last administered on 05/15/25at 07:29; Start 05/15/25 at 07:00; Stop 05/15/25 at 07:01; Status DC Calcium Gluconate 1 gm/Sodium Chloride 50 ml @ 0 mls/hr ONCE ONCE IV Last administered on 05/15/25at 07:30; Start 05/15/25 at 07:30; Stop 05/15/25 at 07:31; Status DC Sodium Zirconium Cyclosilicate 10 gm TID PO; Start 05/15/25 at 09:00; Stop 05/15/25 at 19:22; Status DC Albumin Human 100 ml @ 0 mls/hr TID IV Last administered on 05/16/25at 21:28; Start 05/15/25 at 09:00; Stop 05/16/25 at 23:00; Status DC Sodium Bicarbonate 50 meq ONCE ONCE IV Last administered on 05/15/25at 09:46; Start 05/15/25 at 09:00; Stop 05/15/25 at 09:03; Status DC Daptomycin 1000 mg/Sodium Chloride 100 ml @ 200 mls/hr Q48H IV Last administered on 05/16/25at 17:32; Start 05/16/25 at 18:00; Stop 05/22/25 at 17:59 Ceftaroline Fosamil 200 mg/ Sodium Chloride 250 ml @ 125 mls/hr Q12H IV Last administered on 05/17/25at 05:12; Start 05/16/25 at 06:00; Stop 05/19/25 at 05:59 Epoetin Rubén-epbx 10,000 unit QMOFR SQ; Start 05/19/25 at 09:00; Stop 06/18/25 at 08:59 Dexamethasone Sodium Phosphate 10 mg ONCE ONCE IVP Last administered on 05/16/25at 13:51; Start 05/16/25 at 13:00; Stop 05/16/25 at 13:01; Status DC Diphenhydramine HCl 25 mg ONCE ONCE IV Last administered on 05/16/25at 13:50; Start 05/16/25 at 13:00; Stop 05/16/25 at 13:01; Status DC Famotidine 20 mg BID IV; Start 05/16/25 at 11:00; Stop 05/16/25 at 11:02; Status DC Phytonadione 10 mg/Sodium Chloride 51 ml @ 100 mls/hr ONCE IVPB Last administered on 05/16/25at 21:53; Start 05/16/25 at 18:00; Stop 05/16/25 at 22:00; Status DC Pharmacy Profile Note 1 each ONCE MISC; Start 05/16/25 at 18:00; Stop 05/16/25 at 20:25; Status DC PARAG VANG MD May 17, 2025 09:03
--- NOTE | 2025-05-17 09:40 | NUR ---
SARAH NOTE PER JAIME REP AT [facility]. PT IS STILL PENDING INSURANCE APPROVAL. Addendum: 05/17/25 at 0947 by ZHANNA CLINE CM per jaime rep at [email or web address], just following for now until stable.
--- NOTE | 2025-05-17 13:37 | HMCIMG ---
EXAM: Whole body Indium WBC Scan. INDICATION: Bacteremia for evaluation CLINICAL HISTORY: Chest X-ray 05/15/25. TECHNIQUE: 0.74uCi/ mCi of Indium 99m WBC scan injected intravenously. Images were acquired approximately 4 hours from tracer administration. FINDINGS: The radiopharmaceutical is seen in the expected biodistribution. Increased extraosseous uptake noted in the right superior para-mediastinal region - likely infective. Increased osseous uptake in the mid dorsal and mid lumbar vertebrae - likely infective. IMPRESSION: Scan is suggestive of increased extra-osseous uptake in the right superior para-mediastinal region and increased osseous uptake in the mid dorsal and mid lumbar vertebrae - likely infective. Recommend contrast-enhanced CT and/or MRI correlation. /[place]
--- NOTE | 2025-05-17 13:54 | PN ---
PROGRESS NOTE Date of Service: May 17, 2025 Time of Service: 13:46 SUBJECTIVE: [Patient seen this morning. Discussed with nursing staff. Patient is arousable upon vocal commands however she responded poorly. As per the nursing staff she has been made DNR today. Earlier patient platelet count found to be 10 K and receiving 2 units of platelet bags. Patient also receiving a unit of blood transfusion. Patient currently getting hemodialysis. ] REVIEW OF SYSTEMS Not obtainable. PHYSICAL EXAM EYES: ANICTERIC HENT: No oral thrush seen, moist Oral mucosa NECK: Supple, no JVD or thyromegaly. LUNGS: Good air entry. No rales, no rhonchi. CARDIOVASCULAR: S1, S2 regular. No murmur heard. ABDOMEN: Soft, non tender, bowel sounds present, no organomegaly CENTRAL NERVOUS SYSTEM: Arousable SKIN: + bruises MUSCULOSKELETAL: No joint swelling, erythema or tenderness. EXTREMITIES: + bilateral swelling Vital Signs (last 8hr) Date Time Temp Pulse Resp B/P (MAP) Pulse Ox O2 Delivery O2 Flow Rate FiO2 05/17/25 12:42 90 8 112/56 (74) 100 05/17/25 12:27 100 27 116/55 (75) 100 05/17/25 12:12 96 64 125/51 (75) 100 05/17/25 11:57 99 38 97/53 (68) 100 05/17/25 11:42 97 37 104/72 (83) 100 05/17/25 11:12 98.6 98 25 114/48 (70) 100 05/17/25 10:57 100 25 119/57 (77) 100 05/17/25 10:52 96 31 112/53 (72) 100 05/17/25 10:42 97 28 121/55 (77) 100 05/17/25 10:27 99 33 120/58 (78) 100 05/17/25 10:12 96 40 127/50 (75) 100 05/17/25 09:57 94 35 126/58 (80) 100 05/17/25 09:42 89 20 118/44 (68) 100 05/17/25 09:27 90 17 119/51 (73) 100 05/17/25 09:12 91 29 117/40 (65) 100 05/17/25 08:12 98.6 87 26 121/37 (65) 100 05/17/25 07:57 86 16 125/48 (73) 100 05/17/25 07:42 79 13 125/52 (76) 100 05/17/25 07:28 77 12 112/45 (67) 100 05/17/25 07:03 78 15 Non Rebreather 15.0 05/17/25 07:00 74 12 136/41 (72) 100 100 05/17/25 06:57 74 12 136/41 (72) 100 100 05/17/25 06:45 73 15 98/33 (54) 100 100 05/17/25 06:30 75 29 100/39 (59) 100 100 05/17/25 06:15 80 29 123/68 (86) 100 100 05/17/25 06:00 77 23 102/75 (84) 100 100 LABS: Laboratory: Test 05/17/25 12:05 05/17/25 04:07 05/16/25 23:15 05/16/25 22:14 Range/Units Whole Blood Glucose 87 70-110 MG/DL White Blood Count 3.8 L 4.8-10.8 K/uL Red Blood Count 2.56 L 4.00-5.50 MIL/uL Hemoglobin 7.0 *L 12.0-16.0 g/dL Hematocrit 22.0 L 36-48 % Mean Corpuscular Volume 85.9 79-99 fL Mean Corpuscular Hemoglobin 27.3 27.0-33.0 pg Mean Corpuscular Hemoglobin Concent 31.8 L 32.0-36.0 g/dL Red Cell Distribution Width 27.6 H 11.0-15.5 % Platelet Count 10 *L 130-400 K/uL Mean Platelet Volume 10.1 7.5-10.5 fL Immature Granulocyte % (Auto) 0.5 0-1 % Neutrophils (%) (Auto) 91.8 H 40.0-77.0 % Lymphocytes (%) (Auto) 4.8 L 21.0-51.0 % Monocytes (%) (Auto) 2.9 L 3.0-13.0 % Eosinophils (%) (Auto) 0.0 0.0-8.0 % Basophils (%) (Auto) 0.0 0.0-5.0 % Neutrophils # (Auto) 3.5 1.8-7.7 K/uL Lymphocytes # (Auto) 0.2 L 1.0-4.8 K/uL Monocytes # (Auto) 0.1 0.1-1.0 K/uL Eosinophils # (Auto) 0.00 0.00-0.70 K/uL Basophils # (Auto) 0.00 0.00-0.20 K/uL Absolute Immature Granulocyte (auto 0.02 0-1 K/uL Nucleated Red Blood Cells 0.5 H 0.0-0.19 % Sodium Level 137 136-145 mmol/L Potassium Level 5.2 H 3.5-5.1 mmol/L Chloride Level 101 101-111 mmol/L Carbon Dioxide Level 24 21-32 mmol/L Blood Urea Nitrogen 67 H 7-18 mg/dL Creatinine 4.2 H 0.5-1.0 mg/dL Glomerular Filtration Rate Calc 12 >90 mL/min Random Glucose 203 H 70-105 mg/dL Total Calcium 7.7 L 8.5-10.1 mg/dL Phosphorus Level 7.6 H 2.5-4.9 mg/dL Magnesium Level 2.00 1.80-2.40 mg/dL Total Bilirubin 5.2 H 0.2-1.0 mg/dL Aspartate Amino Transf (AST/SGOT) 170 H 10-37 U/L Alanine Aminotransferase (ALT/SGPT) 116 #H 12-78 U/L Alkaline Phosphatase 402 H 50-136 U/L Total Protein 7.0 6.0-8.3 g/dL Albumin 3.2 L 3.5-5.0 g/dL Procalcitonin 2.21 H 0.05-0.5 ng/mL Blood Gas Specimen Type Arterial Arterial Blood pH 7.374 7.350-7.450 Arterial Blood Partial Pressure CO2 35 32-45 mmHg Arterial Blood Partial Pressure O2 91.8 83.0-108.0 mmHg Arterial Blood HCO3 20.1 L 21.0-28.0 mmol/L Arterial Blood Oxygen Saturation 96.2 94.0-98.0 % Arterial Blood Base Excess -4.6 L -2.0-3.0 mmol/L Hemoglobin (Blood Gas) 7.1 L 12.0-16.0 g/dL Sodium (Blood Gas) 135 L 136-145 MMOL/L Bedside Potassium (Blood Gas) 4.8 H 3.4-4.5 MMOL/L Bedside Chloride (Blood Gas) 101 98-107 MMOL/L Bedside Glucose (Blood Gas) 166 H 65-95 MG/DL Bedside Ionized Calcium (Blood Gas) 1.07 L 1.15-1.33 MMOL/L Bedside Lactic Acid (Blood Gas) 2.35 H 0.36-0.75 MMOL/L Blood Gas Temperature 37.0 35.5-37.0 CELSIUS Blood Gas Flow-by 3.00 0.00-15.00 L/min Blood Gas Vent Mode 3LNC ROOM AIR FiO2 32.0 % Blood Gas Specimen Comment RT RAD Segmented Neutrophils % 95 H 40-70 % Lymphocytes % (Manual) 5 L 22-44 % Differential Comment MANUAL DIFFERENTIAL White Cell Morphology Comment See comments Platelet Morphology Comment MARKED DECREASE Red Blood Cell Morphology See comments Red Cell Morphology Comment Prothrombin Time 20.1 #H 9.6-11.6 SEC Prothromb Time International Ratio 2.03 #H 0.85-1.15 Activated Partial Thromboplast Time 57.8 #H 26.3-35.5 SEC Fibrinogen 92 *L 180-350 mg/dL D-Dimer Quantitative (PE/DVT) > 50475 *H 0-500 ng/mL Test 05/16/25 09:20 05/15/25 14:11 Range/Units Reticulocyte Count (auto) 4.60116 H 0.42-2.23 % Immature Reticulocyte Fraction 34.10 H 0.18-0.48 % Lactate Dehydrogenase 749 H 81-234 U/L Hemoglobin A1c 7.8 H 4.0-6.0 % Estimated Average Glucose (eAG) 177 H 70-126 mg/dL Iron Level 83 # 50-170 mcg/dL Total Iron Binding Capacity 131 L 250-450 mcg/dL Percent Iron Saturation 63.3 H 22-44 % Ferritin 371 H 15-150 ng/mL Triglycerides Level 101 30-200 mg/dL Cholesterol Level 69 # <200 mg/dL LDL Cholesterol 45 0-99 mg/dL HDL Cholesterol 12 L 35-85 mg/dL Hepatitis B Surface Antigen. Non-Reactive Nonreactive Hepatitis B Surface Antibody. Positive Reactive Hepatitis B Core Total Antibody. Reactive H Nonreactive Hepatitis C Antibody Non-Reactive Nonreactive HIV (1&2) Antibody Non-Reactive Negative HIV P24 Antigen, Qualitative Non-Reactive Negative DIAGNOSTICS / RADIOLOGY: [ ] ASSESSMENT: [ 54-YEAR-OLD FEMALE WITH MULTIPLE MEDICAL ISSUES INCLUDING MRSA sepsis, severe anemia and thrombocytopenia with stigmata of the chronic liver disease with cirrhosis of the liver, portal hypertension. Patient currently critically ill. Needing transfusion support. Patient currently DNR.] PLAN: [Continue supportive care. Continued better cleared by the primary team. Goals of care need to be further discussed with the patient family. ] CHAIM VENTURA MD May 17, 2025 13:54
--- NOTE | 2025-05-17 14:31 | PN ---
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 Intractable low back pain due to spinal stenosis, POA Moderate right hydronephrosis US 04/24/25 w/ urinary bladder retention S/P FC S/P Right nephrostomy tube on 04/30/2025 Hyperammonemia due to cirrhosis 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, POA S/P IGG infusions on 04/30/2025 Acute urinary tract infection due to complicated cystitis 2/2 MRSA POA Hypervolemic hyponatremia, POA Chronic anemia, POA Hyponatremia, POA Acute kidney injury on renal insufficiency POA Hyperglycemia due to uncontrolled diabetes POA Hypocalcemia POA Cirrhotic liver with splenomegaly consistent with portal hypertension per CT POA Liver Lesion lesion that measures 1.3 x 1.1 x 1.7 cm in the right lobe on US Esophageal varices Renal parenchymal disease per CT, POA Hypothyroidism Hyperlipidemia Hypertension Anxiety disorder Depression Restless leg syndrome Suspected OHS Morbid obesity, BMI 47.5 INTERVAL HISTORY: Patient seen and examined. All labs/radiology reviewed. Patient lethargic, l discussion with large family presence Patient on day 3 of hemodialysis WBCs down to 3.8, hemoglobin down to 6.1, she is pending 3 units of PRBCs and 2 platelets, patient's platelets were 10 this morning., bilirubin 5.2, LFTs are trending up, renal function declining, patient's potassium is 5.2 Patient on a non-rebreather Chest x-ray reveals increasing congestion Plan Family discussing treatment plan Continuing to follow ID recs, antibiotics, following cultures, Following neurosurgeon recommendations Following Nephrology recommendations BiPAP, follow ABG Follow post transfusion labs, following oncology recs REVIEW OF SYSTEMS: Twelve point review of system reviewed with patient all permanent positives mentioned above otherwise negative PHYSICAL EXAM: GENERAL: Patient is awake alert and oriented x3. Cooperative and calm. HEENT: EOMI, Sclera non icteric, moist mucosa NECK: Supple, no JVD, trachea midline LUNGS: Clear breath sounds bilaterally. No wheezes HEART: Regular rate and rhythm. Normal S1 and S2, without murmurs ABD: Abdomen soft, nontender. Bowel sounds present EXT: No clubbing cyanosis or edema NEURO: AAOX3, follows commands Vital Signs (last 8hr) Date Time Temp Pulse Resp B/P (MAP) Pulse Ox O2 Delivery O2 Flow Rate FiO2 05/17/25 14:15 90 25 117/57 100 Nonrebreathing Mask 15.0 05/17/25 14:00 95 25 118/48 100 Nonrebreathing Mask 15.0 05/17/25 13:45 91 25 114/50 100 Nonrebreathing Mask 15.0 05/17/25 13:30 92 25 126/47 100 Nonrebreathing Mask 15.0 05/17/25 13:15 92 25 117/55 100 Nonrebreathing Mask 15.0 05/17/25 13:00 90 25 112/56 100 Nonrebreathing Mask 15.0 05/17/25 12:45 98.2 89 25 116/55 100 Nonrebreathing Mask 15.0 05/17/25 12:42 90 8 112/56 (74) 100 05/17/25 12:30 98.2 90 25 125/51 100 Nonrebreathing Mask 15.0 05/17/25 12:27 100 27 116/55 (75) 100 05/17/25 12:12 96 64 125/51 (75) 100 05/17/25 11:57 99 38 97/53 (68) 100 05/17/25 11:42 97 37 104/72 (83) 100 05/17/25 11:12 98.6 98 25 114/48 (70) 100 05/17/25 10:57 100 25 119/57 (77) 100 05/17/25 10:52 96 31 112/53 (72) 100 05/17/25 10:42 97 28 121/55 (77) 100 05/17/25 10:27 99 33 120/58 (78) 100 05/17/25 10:12 96 40 127/50 (75) 100 05/17/25 09:57 94 35 126/58 (80) 100 05/17/25 09:42 89 20 118/44 (68) 100 05/17/25 09:27 90 17 119/51 (73) 100 05/17/25 09:12 91 29 117/40 (65) 100 7/26/25 08:12 98.6 87 26 121/37 (65) 100 05/17/25 07:57 86 16 125/48 (73) 100 05/17/25 07:42 79 13 125/52 (76) 100 05/17/25 07:28 77 12 112/45 (67) 100 05/17/25 07:03 78 15 Non Rebreather 15.0 05/17/25 07:00 74 12 136/41 (72) 100 100 05/17/25 06:57 74 12 136/41 (72) 100 100 05/17/25 06:45 73 15 98/33 (54) 100 100 05/17/25 06:30 75 29 100/39 (59) 100 100 LABS: Hematology Labs: Test 05/17/25 04:07 05/16/25 22:14 05/16/25 09:20 Range/Units White Blood Count 3.8 L 4.8-10.8 K/uL Red Blood Count 2.56 L 4.00-5.50 MIL/uL Hemoglobin 7.0 *L 12.0-16.0 g/dL Hematocrit 22.0 L 36-48 % Mean Corpuscular Volume 85.9 79-99 fL Mean Corpuscular Hemoglobin 27.3 27.0-33.0 pg Mean Corpuscular Hemoglobin Concent 31.8 L 32.0-36.0 g/dL Red Cell Distribution Width 27.6 H 11.0-15.5 % Platelet Count 10 *L 130-400 K/uL Mean Platelet Volume 10.1 7.5-10.5 fL Immature Granulocyte % (Auto) 0.5 0-1 % Neutrophils (%) (Auto) 91.8 H 40.0-77.0 % Lymphocytes (%) (Auto) 4.8 L 21.0-51.0 % Monocytes (%) (Auto) 2.9 L 3.0-13.0 % Eosinophils (%) (Auto) 0.0 0.0-8.0 % Basophils (%) (Auto) 0.0 0.0-5.0 % Neutrophils # (Auto) 3.5 1.8-7.7 K/uL Lymphocytes # (Auto) 0.2 L 1.0-4.8 K/uL Monocytes # (Auto) 0.1 0.1-1.0 K/uL Eosinophils # (Auto) 0.00 0.00-0.70 K/uL Basophils # (Auto) 0.00 0.00-0.20 K/uL Absolute Immature Granulocyte (auto 0.02 0-1 K/uL Nucleated Red Blood Cells 0.5 H 0.0-0.19 % Segmented Neutrophils % 95 H 40-70 % Lymphocytes % (Manual) 5 L 22-44 % Differential Comment MANUAL DIFFERENTIAL White Cell Morphology Comment See comments Platelet Morphology Comment MARKED DECREASE Red Blood Cell Morphology See comments Red Cell Morphology Comment Reticulocyte Count (auto) 4.71171 H 0.42-2.23 % Immature Reticulocyte Fraction 34.10 H 0.18-0.48 % Chemistry Labs: Test 05/17/25 12:05 05/17/25 04:07 05/16/25 09:20 Range/Units Whole Blood Glucose 87 70-110 MG/DL Sodium Level 137 136-145 mmol/L Potassium Level 5.2 H 3.5-5.1 mmol/L Chloride Level 101 101-111 mmol/L Carbon Dioxide Level 24 21-32 mmol/L Blood Urea Nitrogen 67 H 7-18 mg/dL Creatinine 4.2 H 0.5-1.0 mg/dL Glomerular Filtration Rate Calc 12 >90 mL/min Random Glucose 203 H 70-105 mg/dL Total Calcium 7.7 L 8.5-10.1 mg/dL Phosphorus Level 7.6 H 2.5-4.9 mg/dL Magnesium Level 2.00 1.80-2.40 mg/dL Total Bilirubin 5.2 H 0.2-1.0 mg/dL Aspartate Amino Transf (AST/SGOT) 170 H 10-37 U/L Alanine Aminotransferase (ALT/SGPT) 116 #H 12-78 U/L Alkaline Phosphatase 402 H 50-136 U/L Total Protein 7.0 6.0-8.3 g/dL Albumin 3.2 L 3.5-5.0 g/dL Procalcitonin 2.21 H 0.05-0.5 ng/mL Lactate Dehydrogenase 749 H 81-234 U/L Coagulation Labs: Test 05/16/25 22:14 Range/Units Prothrombin Time 20.1 #H 9.6-11.6 SEC Prothromb Time International Ratio 2.03 #H 0.85-1.15 Activated Partial Thromboplast Time 57.8 #H 26.3-35.5 SEC Fibrinogen 92 *L 180-350 mg/dL D-Dimer Quantitative (PE/DVT) > 99997 *H 0-500 ng/mL DIAGNOSTICS / RADIOLOGY RESULTS: [ ] PLAN NEURO: Minimize central acting medications as possible. Fall Precautions. Well lighted room through the day and minimize interruptions through the night to prevent acute delirium. PULMONARY: Supplemental 02 as needed Titrate Fio2 to keep Spo2 > or = 90% DuoNebs and CPT as needed IS hourly while awake for pulmonary hygiene Out of bed to chair as tolerated VAP Bundle Vent/BIPAP Settings: [ ] Driving pressure: [ ] P Plat: [ ] Static C: [ ] Static R: [ ] P/F Ratio: [ ] CARDIOVASCULAR: Follow hemodynamics. Titrate vasopressor to keep MAP >65 or systolic blood pressure >95mmHg DIPS: None LINES: PIV GI & NUTRITION: Continue nutritional support Aspirations precautions Prokinetic agents and laxatives as needed KIDNEYS & ELECTROLYTES: Strict monitoring of intake and output Daily weights Avoid nephrotoxic agents Monitor electrolytes and replace as needed Goal urine output of 30mL/hr or 0.5mL/kg/hr Urine output: [ ] Fluid Balance: [ ] ENDOCRINE: Maintain blood glucose between 100-180 at all times. Insulin sliding scale for blood glucose management INFECTIOUS DISEASE: Trend temperature. [place]-culture if febrile. Micro: [ ] Urine culture-MRSA Blood culture-MRSA Antibiotics: Vancomycin HEMATOLOGY & COAGULATION: Monitor H&H. Keep Hgb > 7 Transfuse 1 unit of PRBC for Hgb < 7 Transfuse 1 pack of platelets of platelets < 20, 000 Watch for any signs and symptoms of bleeding SKIN: Pressure ulcer prevention per facility protocol Rehab: PT/OT Prophylaxis: GI: [ Protonix] DVT: SCDs for now no anticoagulation due to thrombocytopenia Code Status: Full Resuscitation Disposition: Medical-surgical Other: Total patient care time exceeds 35 minutes excluding all procedures. Case was discussed and seen with my supervising physician. The above plan was formulated and agreed upon. OSCAR DUGAN May 17, 2025 14:31
--- NOTE | 2025-05-17 14:49 | PN ---
INFECTIOUS DISEASE PROGRESS NOTE Date of Service: May 17, 2025 SUBJECTIVE: Patient was seen in the ICU room 208. Patient is new onset dialysis and during rounding today patient was receiving her 3rd consecutive dialysis treatment. Was being transfused 1 unit of PRBC for hemoglobin of 7.0 this morning. Patient will also be transfused 1 unit of platelets for platelet level of 10. Patient is very edematous. Patient is curr ently on oxygen support via non-rebreather mask. Patient is awake and alert and answers to her name but unable to communicate due to she gets short of breath on exertion and very weak. Patient is on vasopressor support. No growth reported on the preliminary results of the blood cultures collected on 05/15/2025. Continues on daptomycin and Teflaro. We will continues to follow patient's care. PHYSICAL EXAM EYES: Anicteric. Pupils equal and reactive. HENT: No oral thrush seen, moist Oral mucosa NECK: Supple, no JVD or thyromegaly. LUNGS: Good air entry. No rales, no rhonchi. Oxygen support via non- rebreather mask. CARDIOVASCULAR: S1, S2 regular. No murmur heard. ABDOMEN: Soft, non tender, bowel sounds present, no organomegaly. SKIN: No rashes, no swelling. LYMPHATICS: No peripheral lymphadenopathy MUSCULOSKELETAL: No joint swelling, erythema or tenderness. EXTREMITIES: No cyanosis or clubbing. Generalized weakness. Generalized edema. BACK: No deformity, no pressure ulcer. Right nephrostomy tube. GENITOURINARY: No dysuria or hematuria, Nolasco catheter. Vital Sign (Last 12 Hours) 05/17/25 05/17/25 05/17/25 05/17/25 02:45 03:00 03:15 03:23 Pulse 73 71 70 Resp 13 23 14 B/P (MAP) 118/45 (69) 107/48 (67) 113/47 (69) 106/47 Pulse Ox 100 100 100 FiO2 100 100 100 05/17/25 05/17/25 05/17/25 05/17/25 03:30 03:45 04:00 04:00 Pulse 68 68 73 Resp 17 15 23 B/P (MAP) 106/56 (73) 114/40 (64) Pulse Ox 100 100 100 100 O2 Delivery Non-Rebreather+ O2 Flow Rate 10 FiO2 100 100 100 100 05/17/25 05/17/25 05/17/25 7/26/25 04:00 04:15 04:30 04:45 Temp 98.1 Pulse 69 70 70 Resp 22 16 20 B/P (MAP) 115/48 (70) 107/38 (61) 104/38 (60) Pulse Ox 100 100 100 FiO2 100 100 100 05/17/25 05/17/25 05/17/25 05/17/25 05:00 05:15 05:30 05:45 Pulse 72 77 78 76 Resp 18 28 29 34 B/P (MAP) 124/50 (74) 105/61 (76) 111/52 (71) 129/33 (65) Pulse Ox 100 100 100 100 FiO2 100 100 100 100 05/17/25 05/17/25 05/17/25 05/17/25 06:00 06:15 06:30 06:45 Pulse 77 80 75 73 Resp 23 29 29 15 B/P (MAP) 102/75 (84) 123/68 (86) 100/39 (59) 98/33 (54) Pulse Ox 100 100 100 100 FiO2 100 100 100 100 05/17/25 05/17/25 05/17/25 05/17/25 06:57 07:00 07:03 07:28 Pulse 74 74 78 77 Resp 12 12 15 12 B/P (MAP) 136/41 (72) 136/41 (72) 112/45 (67) Pulse Ox 100 100 100 O2 Delivery Non Rebreather O2 Flow Rate 15.0 FiO2 100 100 05/17/25 05/17/25 05/17/25 05/17/25 07:42 07:57 08:12 09:12 Temp 98.6 Pulse 79 86 87 91 Resp 13 16 26 29 B/P (MAP) 125/52 (76) 125/48 (73) 121/37 (65) 117/40 (65) Pulse Ox 100 100 100 100 05/17/25 05/17/25 05/17/25 05/17/25 09:27 09:42 09:57 10:12 Pulse 90 89 94 96 Resp 17 20 35 40 B/P (MAP) 119/51 (73) 118/44 (68) 126/58 (80) 127/50 (75) Pulse Ox 100 100 100 100 05/17/25 05/17/25 05/17/25 05/17/25 10:27 10:42 10:52 10:57 Pulse 99 97 96 100 Resp 28 31 25 B/P (MAP) 120/58 (78) 121/55 (77) 112/53 (72) 119/57 (77) Pulse Ox 100 100 100 100 05/17/25 05/17/25 05/17/25 05/17/25 11:12 11:42 11:57 12:12 Temp 98.6 Pulse 98 97 99 96 Resp 25 37 38 64 B/P (MAP) 114/48 (70) 104/72 (83) 97/53 (68) 125/51 (75) Pulse Ox 100 100 100 100 05/17/25 05/17/25 05/17/25 05/17/25 12:27 12:30 12:42 12:45 Temp 98.2 98.2 Pulse 100 90 90 89 Resp 27 25 8 25 B/P (MAP) 116/55 (75) 125/51 112/56 (74) 116/55 Pulse Ox 100 100 100 100 O2 Delivery Nonrebreathing Mask Nonrebreathing Mask O2 Flow Rate 15.0 15.0 05/17/25 05/17/25 05/17/25 05/17/25 13:00 13:15 13:30 13:45 Pulse 90 92 92 91 Resp 25 25 25 B/P (MAP) 112/56 117/55 126/47 114/50 Pulse Ox 100 100 100 100 O2 Delivery Nonrebreathing Mask Nonrebreathing Mask Nonrebreathing Mask Nonrebreathing Mask O2 Flow Rate 15.0 15.0 15.0 15.0 05/17/25 05/17/25 05/17/25 14:00 14:15 14:30 Pulse 95 90 94 Resp 25 25 B/P (MAP) 118/48 117/57 114/56 Pulse Ox 100 100 100 O2 Delivery Nonrebreathing Mask Nonrebreathing Mask Nonrebreathing Mask O2 Flow Rate 15.0 15.0 15.0 Intake & Output (last 24hrs) 05/16/25 05/16/25 05/17/25 15:00 23:00 07:00 Intake Total 988.0 ml 505.1 ml 131.9 ml Output Total 2500 ml 2505 ml 45 ml Balance -1512.0 ml -1999.9 ml 86.9 ml LABS: Laboratory: Test 7/26/25 12:05 05/17/25 04:07 05/16/25 23:15 05/16/25 22:14 Range/Units Whole Blood Glucose 87 70-110 MG/DL White Blood Count 3.8 L 4.8-10.8 K/uL Red Blood Count 2.56 L 4.00-5.50 MIL/uL Hemoglobin 7.0 *L 12.0-16.0 g/dL Hematocrit 22.0 L 36-48 % Mean Corpuscular Volume 85.9 79-99 fL Mean Corpuscular Hemoglobin 27.3 27.0-33.0 pg Mean Corpuscular Hemoglobin Concent 31.8 L 32.0-36.0 g/dL Red Cell Distribution Width 27.6 H 11.0-15.5 % Platelet Count 10 *L 130-400 K/uL Mean Platelet Volume 10.1 7.5-10.5 fL Immature Granulocyte % (Auto) 0.5 0-1 % Neutrophils (%) (Auto) 91.8 H 40.0-77.0 % Lymphocytes (%) (Auto) 4.8 L 21.0-51.0 % Monocytes (%) (Auto) 2.9 L 3.0-13.0 % Eosinophils (%) (Auto) 0.0 0.0-8.0 % Basophils (%) (Auto) 0.0 0.0-5.0 % Neutrophils # (Auto) 3.5 1.8-7.7 K/uL Lymphocytes # (Auto) 0.2 L 1.0-4.8 K/uL Monocytes # (Auto) 0.1 0.1-1.0 K/uL Eosinophils # (Auto) 0.00 0.00-0.70 K/uL Basophils # (Auto) 0.00 0.00-0.20 K/uL Absolute Immature Granulocyte (auto 0.02 0-1 K/uL Nucleated Red Blood Cells 0.5 H 0.0-0.19 % Sodium Level 137 136-145 mmol/L Potassium Level 5.2 H 3.5-5.1 mmol/L Chloride Level 101 101-111 mmol/L Carbon Dioxide Level 24 21-32 mmol/L Blood Urea Nitrogen 67 H 7-18 mg/dL Creatinine 4.2 H 0.5-1.0 mg/dL Glomerular Filtration Rate Calc 12 >90 mL/min Random Glucose 203 H 70-105 mg/dL Total Calcium 7.7 L 8.5-10.1 mg/dL Phosphorus Level 7.6 H 2.5-4.9 mg/dL Magnesium Level 2.00 1.80-2.40 mg/dL Total Bilirubin 5.2 H 0.2-1.0 mg/dL Aspartate Amino Transf (AST/SGOT) 170 H 10-37 U/L Alanine Aminotransferase (ALT/SGPT) 116 #H 12-78 U/L Alkaline Phosphatase 402 H 50-136 U/L Total Protein 7.0 6.0-8.3 g/dL Albumin 3.2 L 3.5-5.0 g/dL Procalcitonin 2.21 H 0.05-0.5 ng/mL Blood Gas Specimen Type Arterial Arterial Blood pH 7.374 7.350-7.450 Arterial Blood Partial Pressure CO2 35 32-45 mmHg Arterial Blood Partial Pressure O2 91.8 83.0-108.0 mmHg Arterial Blood HCO3 20.1 L 21.0-28.0 mmol/L Arterial Blood Oxygen Saturation 96.2 94.0-98.0 % Arterial Blood Base Excess -4.6 L -2.0-3.0 mmol/L Hemoglobin (Blood Gas) 7.1 L 12.0-16.0 g/dL Sodium (Blood Gas) 135 L 136-145 MMOL/L Bedside Potassium (Blood Gas) 4.8 H 3.4-4.5 MMOL/L Bedside Chloride (Blood Gas) 101 98-107 MMOL/L Bedside Glucose (Blood Gas) 166 H 65-95 MG/DL Bedside Ionized Calcium (Blood Gas) 1.07 L 1.15-1.33 MMOL/L Bedside Lactic Acid (Blood Gas) 2.35 H 0.36-0.75 MMOL/L Blood Gas Temperature 37.0 35.5-37.0 CELSIUS Blood Gas Flow-by 3.00 0.00-15.00 L/min Blood Gas Vent Mode 3LNC ROOM AIR FiO2 32.0 % Blood Gas Specimen Comment RT RAD Segmented Neutrophils % 95 H 40-70 % Lymphocytes % (Manual) 5 L 22-44 % Differential Comment MANUAL DIFFERENTIAL White Cell Morphology Comment See comments Platelet Morphology Comment MARKED DECREASE Red Blood Cell Morphology See comments Red Cell Morphology Comment Prothrombin Time 20.1 #H 9.6-11.6 SEC Prothromb Time International Ratio 2.03 #H 0.85-1.15 Activated Partial Thromboplast Time 57.8 #H 26.3-35.5 SEC Fibrinogen 92 *L 180-350 mg/dL D-Dimer Quantitative (PE/DVT) > 81560 *H 0-500 ng/mL Test 05/16/25 09:20 Range/Units Reticulocyte Count (auto) 4.23357 H 0.42-2.23 % Immature Reticulocyte Fraction 34.10 H 0.18-0.48 % Lactate Dehydrogenase 749 H 81-234 U/L ASSESSMENT: Persistent Methicillin-resistant Staphylococcus aureus bacteremia. Epidural abscess. Urinary tract infection with methicillin-resistant Staphylococcus aureus. L2 and L3 osteomyelitis. Right Hydronephrosis, s/p right nephrostomy tube placement on 04/29/2025. End-stage renal disease, new onset dialysis. Non-ketotic hyperglycemia. Urinary retention requiring Nolasco catheter placement. Morbid obesity. Thrombocytopenia requiring platelet transfusion. Diabetes mellitus. Debility. PLAN:. Continue daptomycin IV Continue Teflaro IV. Continue critical care support. Continue vasopressor support. Continue GI prophylaxis. Neurosurgeon has re-evaluate patient and not medically stable at this time for surgical intervention. Continue dialysis per [employer] recommendations. Continue antidiabetic. Continue oxygen support. This case was reviewed and discussed with my supervising physician and the above assessment and plan was formulated and agreed upon. ATTESTATION BY PHYSICIAN I have seen and examined the patient. I reviewed the documentation, medical decision making, and treatment plan as noted by the mid-level provider above. I agree with the findings and plan of care. EDNA SOARES MD, [facility] May 17, 2025 14:49
--- NOTE | 2025-05-17 15:41 | PN ---
[facility] PROGRESS NOTE Date of Service: May 17, 2025 Time of Service: 15:39 SUBJECTIVE: This is a 54-year-old female with past medical history of undiagnosed obstructive sleep apnea, diabetes type 2, hypertension, hyperlipidemia, hypothyroidism, restless leg syndrome, anxiety disorder,depression, lupus and severe morbid obesity who presents to the ED for complaints of severe low back pain which started 2 weeks ago and getting worse for the past 2 days and patient reports she is taking prednisone 30mg po daily for her Lupus she said.Patient also reports she was recently seen in this ED for similar complaints and was diagnosed with acute lumbosacral myofascial strain. 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 Urinalysis consistent with urinary tract infection. CT abdomen and pelvis result revealed no acute intra-abdominal or pelvic pathology cirrhotic liver morphology with splenomegaly, consistent with portal hypertension. Bilateral renal cortical thickening may reflect renal parenchymal disease. While in the ER patient received Rocephin 1 g IV, 1 L NS bolus. We will admit patient for further medical management. 04/23/25 Patient was seen and examined at bedside. She was complaining of chest pain ear ly in the morning but her EKG and troponin were normal. Patient says she got liver cirrhosis from taking Tylenol with codeine in the past for a long time. Remarkable labs are Na 129, K 6.4. Cl 98, BUN 44. Cr 1.2 with no anion gap. New EKG shows sinus rhythm with no tall T-waves or shortened QT interval. We will give her a dose of calcium gluconate and lokelma and recheck her labs. we will hold her iv fluids for now. Her urine anion gap is 36.0 mEq/l. Repeat potassium was 4.2 and 4.6. We will order CT lumbar spine and request nephro and cardio consults due to hyponatremia, RTA and cirrhosis with portal hypertension respectively. We will order lupus, complement , anemia panel due to her abnormal labs and h/o SLE. Hematology recommended solu medrol 125 q6. she might need hydrochloroquine upon discharge for SLE 04/24/25 Patient was seen and examined at bedside. She is complaining of widespread generalized body pain with tender points and generalized weakness, her CPK is going up, we will repeat it and start her on pregabalin. Her labs are improving. She had an EGD done last year that showed grade III varices but lost to follow up with TDS. No GI intervention as her Hb is stable. Will start her on vancomycin. Her home meds have been reconciled. She takes venlaflaxine and pramipexole for depression and restless leg syndrome respectively. Her elevated urine anion gap could be due to BALTAZAR or NSAID induced kidney injury but her creatinine is improving. Pending abdominal ultrasound and CT lumbar spine results. 04/25/25 Patient was seen and examined. She was observed sitting in a chair but was unable to answer questions appropriately and appeared confused. Ammonia level was elevated at 59; lactulose has been initiated at 30 mL TID. She is currently receiving vancomycin for MRSA identified in the urine. Right upper quadrant ultrasound demonstrated chronic hepatic changes with a hypoechoic lesion in the right lobe of the liver, possibly representing a complex cyst. CT of the lumbar spine revealed moderate lumbar spondylosis and diffuse osteopenia. Her platelet count is 37 and showing slow improvement. Dr. Urias, covering for Dr. Lorenzo, recommended holding solu-medrol for now. If platelet count declines tomorrow, steroids may need to be restarted. Ammonia and additional labs will be rechecked in the morning. 04/26/25 Patient was seen at bedside. Will request a transfer to the ICU due to worsening agitation and hypercapnic respiratory failure requiring BIPAP support.Will order Precedex drip for sedation to improve tolerance of non-invasive ventilation. Imaging studies including CT head and MRI spine have been ordered to evaluate for underlying neurologic causes. Patient remains hemodynamically stable; pulmonary consult is in place. She is growing gram positive cocci in clusters in her blood, will request ID input on antibiotics as she was on vancomycin previously and was started on bactrim for MRSA in urine. Her platelet count is 36 and solu-medrol is on hold. Ammonia improved from 59 to 12 04/27/25 Patient was evaluated at bedside. She was transferred to the ICU yesterday due to agitation and hypercapnia, requiring a Precedex drip as she was removing her nasal cannula. BiPAP was initiated to support ventilation, and she is now resting comfortably. CT brain was unremarkable with no acute findings. She has a free water deficit of approximately 1.4 liters, for which D5W will be administered. CRP has decreased from 83.5 to 56.4. However, platelets have dropped from 36 to 28, and hematology is closely monitoring her. The patient remains NPO. We wanted to start NG tube feeding but patient has h/o esophageal varices. We will await gastroenterologys recommendations, including possible EGD if indicated. 04/28/25 Patient was evaluated at bedside, she is bed bound not very responsive to questions. She is currently off BiPAP and precedex drip. Her agitation has improved and she is resting comfortably in bed. She has MRSA bacteremia and we will repeat blood cultures. She is currently on vancomycin. She has moderate right hydronephrosis which is increasing, we will request urology consult. Her sodium is trending upwards from 147 to 152 and she has a free water deficit of 2.4 L , we will increase D5 rate from 75 to 150mls/hr. CRP improving from 56.4 to 42.7. Platelets dropped from 28 to 21, we will follow Dr. Lorenzo's recommendations and his plan is give her IgG. She is not bleeding actively. 04/29/25 Patient was evaluated at bedside. She is alert, awake and oriented. She was minimally verbal yesterday but is now more interactive, expressing pain and discussing her medical history. She reports diffuse joint pain and is unable to lift her arms or legs due to significant discomfort. She has generalized joint tenderness and weak behavioral instructor strength bilaterally. urologist Dr. Colin recommended nephrostomy tube on her right due to hydronephrosis. Her platelets improved to 44 without any intervention. She will be getting platelets for the procedure. She has infectious spondylodiscitis which could be the source of her bacteremia. We have requested transfer to [facility] but maid housekeeper said Dr. Sanchez has privileges at [facility] and will try to consult him. Her white count went up to 1 2.2, LFTs mildly going up. We will hold off on gabapentin for now. 04/30/25 Patient was evaluated at bedside. She is alert, awake and oriented. Her vitals are stable. She is interactive, expressing pain and discussing her medical history. She reports diffuse joint pain and is able to lift her arms or legs slightly due to pain and discomfort. Her active and passive range of motions are limited. She has generalized joint tenderness and weak behavioral instructor strength bilaterally. She also passed stool more than 5 times yesterday could be due to lactulose which has been stopped from today. A Percutaneous fluroscopy-guided placement of an 8-F nephrostomy catheter was performed,the patient tolerated the procedure well. Neurosurgeon Dr. Sanchez saw the patient and came up with possible diagnosis of discitis and osteomyelitis at L2-L3 along with psoas inflammation. She has spondylolisthesis which is non- critical and can be managed medically for now. According to Dr. Lorenzo she will benefit from IVIg for 3 days on the background of possible ITP. Her current platelet is 41 and Hgb 9.6. Also, Endocrinology team adjusted Insulin regimen. We have requested cardiology consult for suspected endocarditis and will request RAMAN although she has thrombocytopenia and h/o esophageal varices. 05/01/25 Patient was evaluated at bedside. She is alert, awake and oriented. Her vitals are stable, except blood pressure which is 158/80. She reports diffuse joint pain and is able to lift her arms or legs slightly due to pain and discomfort. Her active and passive range of motions are limited. She has generalized joint tenderness and weak behavioral instructor strength bilaterally. As per Dr. Lorenzo she will be started IVIG from today for 3 days. As per the Cardiology, she won't undergo RAMAN due thrombocytopenia, cirrhosis, varices. We will continue IV antibiotics and add low dose pregabalin for her pain. 05/02/25 Patient was evaluated at bedside. She is alert, awake and oriented. Her vitals are stable, except blood pressure which is 157/81. Labs showed WBC decreasing from 11.6 to 5.7, platelets from 44 to 32 and random glucose of 226. There has been marked decline in pain. We will continue IV antibiotics and she is receiving Immune globulin every 24 hr. Her Insulin dosage has been adjusted. Blood culture showed gram positive cocci in clusters, STAPHYLOCOCCUS AUREUS. Her prognosis remains guarded. Plan is to discharge her to [facility] for 6 weeks of IV antibiotics. 05/03/25 Patient was evaluated at bedside. She is alert, awake and oriented. Her vitals are stable,and her blood pressure which is 137/70. Labs showed WBC 7.8 , platelets from increasing from 32 to 44 and random glucose of 232. Her creatinine level is 1.2. There has been marked decline in pain and discomfort. We will continue IV antibiotics and she is receiving Immune globulin every 24 hr. Her last dose for Immune globulin is today. Her Insulin dosage has been adjusted. Blood culture showed gram positive cocci. Her prognosis remains guarded. She is on IV vancomycin. Plan is to discharge her to [facility] for 6 weeks of IV antibiotics. 05/04/25: The patient was evaluated at the bedside today. She had just finished showering and reported new-onset slurred speech, facial weakness and word- finding difficulty. She reports no weakness in the extremities. Blood cultures r emain positive for gram-positive cocci, specifically MRSA. She is continuing on vancomycin, and gentamicin was initiated yesterday per Infectious Disease recommendations. She has completed a total of three IV IgG infusions. Platelet count is currently 31,000, decreased from 41,000 yesterday. Additionally, the patient has developed a groin rash with associated itching. Physical therapy noted that she was unable to ambulate today and experienced significant difficulty with mobility. We will continue to closely monitor her neurological status, platelet counts, and overall clinical response. Repeat blood cultures will be obtained at an appropriate interval following the initiation of gentamicin, per Infectious Disease guidance. Further assessment and management plan are outlined below. 05/05/25 The patient was evaluated at the bedside today. Her vitals are stable and communicated well. She complaints of pain in the neck and shoulder. She reports no weakness in the extremities. Blood cultures remain positive for gram-positive cocci, specifically MRSA. She is continuing on vancomycin, and gentamicin per Infectious Disease recommendations. Repeat blood cultures will be obtained at an appropriate interval following the initiation of gentamicin. She has completed a total of three IV IgG infusions. Platelet count is currently decreased [place] 31,000 [place] [address]. Her WBC is 6.8 and Hgb is 8.6. Her insulin medications has been adjusted by the endocrinology team. Additionally, the patient's groin rash with associated itching has been improving. She has been prescribed for Venlafaxine for management of depression and anxiety. Also Case management updated that they are in [facility], Insurance approval is still pending; no authorization has been granted as of this time. Further assessment and management plan are outlined below. 05/06/25 The patient was evaluated at the bedside today. Her vitals are stable and communicated well. Her pain is gradually decreasing. She reports no weakness in the extremities. Blood cultures remain positive for gram-positive cocci, specifically MRSA. Blood culture has been sent today after 3 days of gentamicin. She is continuing on vancomycin, and gentamicin per Infectious Disease recommendations. . She has completed a total of three IV IgG infusions. Platelet count is currently decreased [place] 31,[address] Lorenzo, she has been planned for the transfusion of platelets today. Her WBC is 5.1, Hgb is 8.9, CRP 61.50 and whole blood glucose 233. In addition,PT is 17.2, INR 1.71, APTT 36.3 and Fibrinogen 119. Also, the Liver enzymes are elevated with total bilirubin of 1.6, AST 166, ALT 136 and ALP 358. Her Vancomycin trough level has increased from 5.0 to 18.1. Her insulin medications has been adjusted by the endocrinology team. Additionally, the patient's groin rash has been improving. As per Nephrology, the patient's renal function has actually greatly improved &the patient is being seen by case management in regards to placement at the [facility]. We will continue to follow the patient closely. 05/07/25 The patient was evaluated at the bedside today. Her vitals are stable and comm unicated well. Her pain has reduced significantly. Preliminary Blood cultures showed positive for gram-positive cocci which was done yesterday after 3 days of gentamicin. PICC line has been removed as per ID recommendation. Plate[place] [address] today. Fecal occult blood test is positive. She received platelets transfusion yesterday. Her WBC is trending downwards from 5.1 to 3.0, Hgb is 8.4, and whole blood glucose 245. In addition, PT is 17.2, INR 1.71, APTT 36.3 and Fibrinogen 119. Her D-dimer is 7184. She has been planed today for bilateral US venous Doppler,V/Q scan and CTPA. Her Liver enzymes revealed total bilirubin of 1.9, AST 120, ALT 125 and ALP 371. Her Vancomycin trough level has decreased from 18.1 to 0.2. Her insulin medications has been followed by the endocrinology team. As per Dr Lorenzo, the patient can be transferred to [facility] as soon as accepted and he is trying to get her Promacta, medicine that raises the platelets,once its available. The WBC-tagged scan has been deferred and rescheduled for tomorrow to avoid excessive radiation exposure since patient was initially planned for V/Q scan today. 05/08/25 The patient was evaluated at the bedside today. Her vitals are stable and com municated well. She complained of hyperventilation in the night. Platelet count [id number] today. Her WBC is 5.6, Hgb is 9.1, and whole blood glucose is 314 . In addition, PT is 16, INR 1.58, APTT 35 and Fibrinogen 122. Her D-dimer is 6586. Her V/Q scan wasn't completed because she couldn't lie flat. The US venous doppler (B/L) was done which revealed no deep venous thrombosis evident in the bilateral lower extremity and No superficial thrombophlebitis in the bilateral lower extremity. Her Liver enzymes revealed total bilirubin of 1.9, AST 102, ALT 124 and ALP 391. Her Gentamicin peak and trough level is 0.2 and 0.3 respectively. Her insulin medications has been followed by the endocrinology team. We are awaiting for WBC tagged scan report. 05/09/25 The patient was evaluated at the bedside today. Her vitals are stable and communicated well. She complained of right lower [place] [address] today. Her WBC is 6.2, Hgb is 8.7, and random blood glucose is 236. Blood culture is positive for gram positive cocci. According to ID recommendation, Patient is started on Daptomycin and Ceftaroline. As per Dr Lorenzo, he is trying to get the promacta. Her Liver enzymes revealed total bilirubin of 1.8, AST 128, ALT 139 and ALP 410. Her creatinine is 1.2 and BUN is 41. Participation with physical therapy has been improving. We will continue to monitor patient. 05/10/25 The patient was evaluated at the bedside today. Her vitals are stable and communicated well. [place] [address] [place] [address]. Her WBCs trending downwards from 6.2 to 4.7, RBC 3.34, hemoglobin 8.8. Blood culture is positive for gram positive cocci. According to ID recommendation, Patient is on Day 2 of Daptomycin and Ceftaroline. Blood cultures will be sent on Monday. She did her 1st cycle of WBC tagged scan test. It will be done on 48 hours and then 72 hours. After that we will have the conclusive findings if anything is present. Her creatinine is trending upwards from 1.2 to 1.5 and blood urea nitrogen is 39. Her CRP is 47.80. Her creatinine is 1.2 and BUN is 41. Participation with physical therapy has been improving. As per the recommendation of Endocrinology she is getting Lantus 30 units daily and Humalog 10 units t.i.d. before beats patient's glucose are improving. Today's random blood glucose was 182. We will continue to monitor the patient. 05/11/25 The patient was evaluated at the bedside today. She complained of right upper quadrant pain. She is stable hemodynamically. Platelet count 11329. Her WBCs trending up from 4.7 to 6.8, hemoglobin 8.1. Blood culture is positive for gram positive cocci. According to ID recommendation, Patient is on Day 3 of Daptomy mich and Ceftaroline. Blood cultures will be sent on Monday. She did her 2nd cycle of WBC tagged scan test. Next cycle will be done today and tomorrow.. After that we will have the conclusive findings if anything is present. Her creatinine is trending upwards from 1.2< 1.5<1.8 and blood urea nitrogen is 41. LFT trending up, bilirubin 2.1, AST 153, ALT 154, ALP 443. Her CRP is 47.80. Participation with physical therapy has been improving. As per the recommendation of Endocrinology she is getting Lantus 40 units daily and Humalog 10 units t.i.d with sliding scale insulin.. Today's random blood glucose was 210. We will continue to monitor the patient. Hematology, ID and nephrology on the board. Plan as discussed below 05/12/25 The patient was evaluated at the bedside today. She complained of right upper quadrant pain. She is [place] [address]. Her WBCs trending up from 4.7 to 6.8 to 8.4 toady, hemoglobin 8.1 to 8.4. Blood culture is positive for gram positive cocci. According to ID recommendation, Patient is on Day 4 of Daptomycin and Ceftaroline. Blood cultures will be sent today. She did her all the cycles of of WBC tagged scan test and we are awaiting the final results. Her creatinine is trending upwards from 1.2< 1.5<1. 8<1.9 and blood urea nitrogen is 44. Her total creatine kinase is 383. LFT trending up, bilirubin 2.2, AST 161, ALT 158, ALP 451. Her albumin is 1.4. Ultrasonography done on 05/11 revealed increased echogenicity of the right kidney which may reflect renal parenchymal disease. Previously demonstrated liver lesion and right hydronephrosis are not visualized. Chronic hepatitis disease was present. She will receive vitamin K 10 mg. Along with other lab parameters we will check the coagulation profile. She has been planned for MRI of lumbar spine with contrast. As per the recommendation of Endocrinology she is getting Lantus 30 units daily and Humalog 10 units t.i.d with sliding scale insulin. Today's random blood glucose was 162. We will continue to monitor the patient. Hematology, ID and nephrology on the board. Plan as discussed below. 05/13/25 The patient was evaluated at the bedside today. She has petechiae [place] [address]. Her WBCs is 8.5, hemoglobin 8.1. Blood culture done on 05/12 is positive for gram positive cocci in clusters. She is continued Daptomycin and Ceftaroline (Day 5). Dr Sanchez, the neurosurgeon has been consulted for Intradiscal collection with extension into tepidural space in the lumbar region (L2-L3 level). We have also consulted dietitian for her poor appetite. We will give IV albumin for possible hepatorenal syndrome. 05/14/25 The patient was evaluated at the bedside today. Her clinical status is worsening. We are transferring [place] [address]. She has persistent Gram-positive, MRSA bacteremia and blood culture is still positive as of 05/14/2025. She is continued Daptomycin and Ceftaroline (Day 6). She has been started on sevelamer 800 mg per oral once. Her albumin has been changed to every 8 hourly. Critical care team has been consulted for further evaluation and management. 05/15/25 The patient was evaluated at the bedside today. Her clinical status is worsening. She is continued Daptomycin and Ceftaroline (Day 7). As per Dr. Singh's, patient's critical condition was discussed with staff, and family. Surgical drainage remains an option, but patient requires medical optimization 1st: Planned made for aggressive medical management. She also developed hyperkalemia with potassium 6.7. She was given calcium gluconate and Kayexalate. Repeat potassium is 5.8 and we will recheck BMP in 6 hours. Her renal function and liver functions are worsening. Her creatinine is 4.4. The prognosis is guarded for her. As per Nephrology: Patient with worsening renal function, persistent hyperkalemia and oliguria: Dialysis recommended and done, 1500 ml removed. 05/16/25 The patient was evaluated at the bedside today. Her clinical status is worsening. The prognosis is guarded for her. She is continued Daptomycin and Ceftaroline (Day 8). Her Potassium level today is 5.3. Patient Continues to be on BiPAP. As per the Nephrology, The patient will continue with maximum ultrafiltration as blood pressure allows. The patient is to receive 1 unit of packed red blood cells with dialysis. Dialysis done today, removed 2500 ml. 05/17/25 The patient was evaluated at the bedside today. Her clinical status is worsening. The prognosis is guarded for her. Patient was transferred 1 unit of PRBC and also planned to receive 1 unit of platelets. Her platelets today is 10. She has developed extensive petechiae all over the body. Patient is currently on oxygen support via non-rebreather mask. She is continued on daptomycin and ceftaroline. Bilateral upper extremity venous Doppler ultrasound study was performed which showed a deep vein thrombosis in the right cephalic vein. Discussed code status with the patient's family, including the risks and limited benefits of CPR in the context of her overall condition. The family understood and agreed to proceed with signing DNR paperwork. Hematology was consulted and had no specific recommendations at this time. REVIEW OF SYSTEMS Limited secondary to patient's condition. PHYSICAL EXAM GENERAL APPEARANCE: The patient is drowsy and Oxygen support via non-rebreather mask. NEUROLOGICAL: No sensory and motor deficits. CHEST: Normal chest expansion. LUNGS: Pregnene of crackles. Absence of any wheezing. CARDIOVASCULAR: Regular. S1 and S2 normal. No appreciable rubs, murmurs or gallops. ABDOMEN: Soft nontender, and nondistended. There is no rebound, voluntary guarding, or rigidity. GENITOURINARY: Nephrostomy tube on the right side SKIN AND INTEGUMENTARY: Petechiae noted on different parts of the body. EXTREMITIES: Bilateral lower limb edema. Vital Signs (last 8hr) Date Time Temp Pulse Resp B/P (MAP) Pulse Ox O2 Delivery O2 Flow Rate FiO2 05/17/25 15:15 91 25 123/55 100 Nonrebreathing Mask 15.0 05/17/25 15:00 90 25 121/59 100 Nonrebreathing Mask 15.0 05/17/25 14:45 88 25 126/49 100 Nonrebreathing Mask 15.0 05/17/25 14:30 94 25 114/56 100 Nonrebreathing Mask 15.0 05/17/25 14:15 90 25 117/57 100 Nonrebreathing Mask 15.0 05/17/25 14:00 95 25 118/48 100 Nonrebreathing Mask 15.0 05/17/25 13:45 91 25 114/50 100 Nonrebreathing Mask 15.0 05/17/25 13:30 92 25 126/47 100 Nonrebreathing Mask 15.0 05/17/25 13:15 92 25 117/55 100 Nonrebreathing Mask 15.0 05/17/25 13:00 90 25 112/56 100 Nonrebreathing Mask 15.0 05/17/25 12:45 98.2 89 25 116/55 100 Nonrebreathing Mask 15.0 05/17/25 12:42 90 8 112/56 (74) 100 05/17/25 12:30 98.2 90 25 125/51 100 Nonrebreathing Mask 15.0 05/17/25 12:27 100 27 116/55 (75) 100 05/17/25 12:12 96 64 125/51 (75) 100 05/17/25 11:57 99 38 97/53 (68) 100 05/17/25 11:42 97 37 104/72 (83) 100 05/17/25 11:12 98.6 98 25 114/48 (70) 100 05/17/25 10:57 100 25 119/57 (77) 100 05/17/25 10:52 96 31 112/53 (72) 100 05/17/25 10:42 97 28 121/55 (77) 100 05/17/25 10:27 99 33 120/58 (78) 100 05/17/25 10:12 96 40 127/50 (75) 100 05/17/25 09:57 94 35 126/58 (80) 100 05/17/25 09:42 89 20 118/44 (68) 100 05/17/25 09:27 90 17 119/51 (73) 100 05/17/25 09:12 91 29 117/40 (65) 100 05/17/25 08:12 98.6 87 26 121/37 (65) 100 05/17/25 07:57 86 16 125/48 (73) 100 05/17/25 07:42 79 13 125/52 (76) 100 LABS: Laboratory: Test 05/17/25 12:05 05/17/25 04:07 05/16/25 23:15 05/16/25 22:14 Range/Units Whole Blood Glucose 87 70-110 MG/DL White Blood Count 3.8 L 4.8-10.8 K/uL Red Blood Count 2.56 L 4.00-5.50 MIL/uL Hemoglobin 7.0 *L 12.0-16.0 g/dL Hematocrit 22.0 L 36-48 % Mean Corpuscular Volume 85.9 79-99 fL Mean Corpuscular Hemoglobin 27.3 27.0-33.0 pg Mean Corpuscular Hemoglobin Concent 31.8 L 32.0-36.0 g/dL Red Cell Distribution Width 27.6 H 11.0-15.5 % Platelet Count 10 *L 130-400 K/uL Mean Platelet Volume 10.1 7.5-10.5 fL Immature Granulocyte % (Auto) 0.5 0-1 % Neutrophils (%) (Auto) 91.8 H 40.0-77.0 % Lymphocytes (%) (Auto) 4.8 L 21.0-51.0 % Monocytes (%) (Auto) 2.9 L 3.0-13.0 % Eosinophils (%) (Auto) 0.0 0.0-8.0 % Basophils (%) (Auto) 0.0 0.0-5.0 % Neutrophils # (Auto) 3.5 1.8-7.7 K/uL Lymphocytes # (Auto) 0.2 L 1.0-4.8 K/uL Monocytes # (Auto) 0.1 0.1-1.0 K/uL Eosinophils # (Auto) 0.00 0.00-0.70 K/uL Basophils # (Auto) 0.00 0.00-0.20 K/uL Absolute Immature Granulocyte (auto 0.02 0-1 K/uL Nucleated Red Blood Cells 0.5 H 0.0-0.19 % Sodium Level 137 136-145 mmol/L Potassium Level 5.2 H 3.5-5.1 mmol/L Chloride Level 101 101-111 mmol/L Carbon Dioxide Level 24 21-32 mmol/L Blood Urea Nitrogen 67 H 7-18 mg/dL Creatinine 4.2 H 0.5-1.0 mg/dL Glomerular Filtration Rate Calc 12 >90 mL/min Random Glucose 203 H 70-105 mg/dL Total Calcium 7.7 L 8.5-10.1 mg/dL Phosphorus Level 7.6 H 2.5-4.9 mg/dL Magnesium Level 2.00 1.80-2.40 mg/dL Total Bilirubin 5.2 H 0.2-1.0 mg/dL Aspartate Amino Transf (AST/SGOT) 170 H 10-37 U/L Alanine Aminotransferase (ALT/SGPT) 116 #H 12-78 U/L Alkaline Phosphatase 402 H 50-136 U/L Total Protein 7.0 6.0-8.3 g/dL Albumin 3.2 L 3.5-5.0 g/dL Procalcitonin 2.21 H 0.05-0.5 ng/mL Blood Gas Specimen Type Arterial Arterial Blood pH 7.374 7.350-7.450 Arterial Blood Partial Pressure CO2 35 32-45 mmHg Arterial Blood Partial Pressure O2 91.8 83.0-108.0 mmHg Arterial Blood HCO3 20.1 L 21.0-28.0 mmol/L Arterial Blood Oxygen Saturation 96.2 94.0-98.0 % Arterial Blood Base Excess -4.6 L -2.0-3.0 mmol/L Hemoglobin (Blood Gas) 7.1 L 12.0-16.0 g/dL Sodium (Blood Gas) 135 L 136-145 MMOL/L Bedside Potassium (Blood Gas) 4.8 H 3.4-4.5 MMOL/L Bedside Chloride (Blood Gas) 101 98-107 MMOL/L Bedside Glucose (Blood Gas) 166 H 65-95 MG/DL Bedside Ionized Calcium (Blood Gas) 1.07 L 1.15-1.33 MMOL/L Bedside Lactic Acid (Blood Gas) 2.35 H 0.36-0.75 MMOL/L Blood Gas Temperature 37.0 35.5-37.0 CELSIUS Blood Gas Flow-by 3.00 0.00-15.00 L/min Blood Gas Vent Mode 3LNC ROOM AIR FiO2 32.0 % Blood Gas Specimen Comment RT RAD Segmented Neutrophils % 95 H 40-70 % Lymphocytes % (Manual) 5 L 22-44 % Differential Comment MANUAL DIFFERENTIAL White Cell Morphology Comment See comments Platelet Morphology Comment MARKED DECREASE Red Blood Cell Morphology See comments Red Cell Morphology Comment Prothrombin Time 20.1 #H 9.6-11.6 SEC Prothromb Time International Ratio 2.03 #H 0.85-1.15 Activated Partial Thromboplast Time 57.8 #H 26.3-35.5 SEC Fibrinogen 92 *L 180-350 mg/dL D-Dimer Quantitative (PE/DVT) > 31316 *H 0-500 ng/mL Test 05/16/25 09:20 Range/Units Reticulocyte Count (auto) 4.81238 H 0.42-2.23 % Immature Reticulocyte Fraction 34.10 H 0.18-0.48 % Lactate Dehydrogenase 749 H 81-234 U/L Current Medications Medications (Trade) Dose Ordered Sig/Orberth Route PRN Reason Start Time Stop Time Status Last Admin Dose Admin Acetaminophen (TYLenol 325MG TAB) 650 mg ONCE PO 05/17/25 09:30 05/17/25 09:31 DC 05/17/25 10:08 650 MG Acetaminophen (TYLenol 325MG TAB) 650 mg Q4H PRN PO MILD PAIN (1-3) 04/22/25 20:00 05/22/25 19:59 05/11/25 21:31 650 MG Acetaminophen (TYLenol 325MG TAB) 650 mg Q6H PRN PO TEMPERATURE GREATER THAN 101.5 04/22/25 20:00 05/22/25 19:59 04/23/25 10:02 650 MG Acetaminophen/ Hydrocodone Bitart (NORco 5/325MG) 1 tab Q4H PRN PO MODERATE PAIN (4-6) 04/30/25 12:00 05/05/25 11:59 DC 04/30/25 22:07 1 TAB Albumin Human 100 ml @ 0 mls/hr AD IV 05/13/25 16:00 05/14/25 14:47 DC Albumin Human 100 ml @ 0 mls/hr Q8H6 IV 05/14/25 15:00 05/14/25 15:59 DC Albumin Human 100 ml @ 0 mls/hr TID IV 05/15/25 09:00 05/16/25 23:00 DC 05/16/25 21:28 100 MLS/HR Atorvastatin Calcium (LIPItor 20MG) 20 mg HS PO 04/24/25 21:00 05/13/25 15:42 DC 05/12/25 20:57 20 MG Ceftaroline Fosamil 200 mg/ Sodium Chloride 250 ml @ 125 mls/hr Q12H IV 05/16/25 06:00 05/19/25 05:59 05/17/25 05:12 125 MLS/HR Ceftaroline Fosamil 300 mg/ Sodium Chloride 250 ml @ 125 mls/hr Q8H IV 05/15/25 05:00 05/15/25 18:18 DC 05/15/25 15:22 125 MLS/HR Ceftaroline Fosamil 400 mg/ Sodium Chloride 250 ml @ 250 mls/hr Q12H IV 05/09/25 17:00 05/15/25 04:40 DC 05/14/25 17:20 250 MLS/HR Ceftriaxone Sodium 1 gm/ Sodium Chloride 50 ml @ 100 mls/hr BID IV 04/22/25 21:00 04/22/25 19:59 DC Ceftriaxone Sodium (ROCEphine 1G INJ) 1 gm BID IVPB 04/22/25 21:00 04/22/25 20:44 DC Ceftriaxone Sodium (ROCEphine 1G INJ) 1 gm BID IVPB 04/23/25 09:00 04/25/25 12:36 DC 04/25/25 09:44 1 GM Daptomycin 1000 mg/Sodium Chloride 100 ml @ 200 mls/hr Q24H IV 05/09/25 15:00 05/12/25 17:41 DC 05/11/25 16:20 200 MLS/HR Daptomycin 1000 mg/Sodium Chloride 100 ml @ 200 mls/hr Q24H IV 05/12/25 18:00 05/15/25 18:10 DC 05/14/25 19:14 200 MLS/HR Daptomycin 1000 mg/Sodium Chloride 100 ml @ 200 mls/hr Q48H IV 05/16/25 18:00 05/22/25 17:59 05/16/25 17:32 200 MLS/HR Dexamethasone Sodium Phosphate (dexaMETHasone 4MG/ML 1ML VIAL) 20 mg ONCALL IV 05/01/25 15:30 05/03/25 15:31 DC 05/02/25 15:41 20 MG Dexamethasone Sodium Phosphate (dexaMETHasone 4MG/ML 1ML VIAL) 20 mg ONCALL IV 05/03/25 17:15 05/03/25 17:16 DC 05/03/25 17:23 20 MG Dexamethasone Sodium Phosphate (dexaMETHasone 4MG/ML 1ML VIAL) 20 mg ONCE PRN IV PRE-MED 05/01/25 15:00 05/01/25 15:05 DC Dexmedetomidine HCl 400 mcg/ Sodium Chloride 100 ml @ 0 mls/hr AD PRN IV TITRATE 05/14/25 20:00 05/14/25 20:01 DC Dexmedetomidine/ Sodium Chloride (PRECEdex 200MCG/ 50ML-NS) 200 mcg PROTOCOL IV 04/26/25 12:00 04/26/25 14:54 DC Dexmedetomidine/ Sodium Chloride (PRECEdex 400MCG/ 100ML-NS) 400 mcg PROTOCOL IV 05/14/25 20:30 06/13/25 20:29 05/17/25 03:23 400 MCG Dexmedetomidine/ Sodium Chloride (PRECEdex 400MCG/ 100ML-NS) 400 mcg PROTOCOL PRN IV ANXIETY/AGITATION 04/26/25 19:30 05/01/25 12:45 DC 04/27/25 23:31 400 MCG Dexmedetomidine/ Sodium Chloride (PRECEdex 400MCG/ 100ML-NS) 400 mcg PROTOCOL STAT IV 04/26/25 14:53 04/26/25 14:58 DC 04/26/25 15:18 400 MCG Dextrose 1,000 ml @ 75 mls/hr [id number] IV 04/26/25 12:00 04/30/25 09:36 DC 04/29/25 04:27 150 MLS/HR Dextrose (D50w) 50 ml AD PRN IV HYPOGLYCEMIA PROTOCOL 04/22/25 20:00 05/22/25 19:59 Diphenhydramine HCl (BENAdryl CAP) 25 mg ONCE PO 05/17/25 09:30 05/17/25 09:31 DC 05/17/25 10:08 25 MG Diphenhydramine HCl (BENAdryl INJ) 25 mg ONCALL IVP 05/01/25 15:30 05/03/25 15:31 DC 05/02/25 15:41 25 MG Diphenhydramine HCl (BENAdryl INJ) 25 mg ONCALL IVP 05/03/25 17:15 05/03/25 17:16 DC 05/03/25 17:22 25 MG Diphenhydramine HCl (BENAdryl INJ) 25 mg ONCE PRN IVP PRE-MED 05/01/25 15:00 05/01/25 15:06 DC Epoetin Rubén-epbx (Retacrit) 10,000 unit QMOFR SQ 05/19/25 09:00 06/18/25 08:59 Famotidine (Pepcid 20mg Vial) 20 mg BID IV 05/16/25 11:00 05/16/25 11:02 DC Famotidine (Pepcid 20mg Tab) 20 mg DAILY PO 04/23/25 09:00 04/24/25 09:48 DC 04/23/25 09:33 20 MG Gabapentin (NEURontin 300 MG CAP) 300 mg BID PO 04/24/25 21:00 04/28/25 09:10 DC 04/25/25 21:51 300 MG Gentamicin Sulfate/Sodium Chloride 100 ml @ 200 mls/hr Q12H IV 05/09/25 02:00 05/09/25 13:30 DC 05/09/25 01:36 200 MLS/HR Gentamicin Sulfate/Sodium Chloride 100 ml @ 200 mls/hr Q24H IV 05/03/25 14:00 05/08/25 21:01 DC 05/08/25 14:18 200 MLS/HR Glucagon (Glucagon 1mg Kit) 1 mg AD PRN IM HYPOGLYCEMIA PROTOCOL 04/22/25 20:00 05/22/25 19:59 Heparin Sodium (Porcine) (HEParin 5,000 UNIT VIAL) 5,000 unit Q8H SQ 04/25/25 09:00 04/25/25 08:40 DC Hydromorphone HCl (DiLAUDid 0.5MG INJ) 0.5 mg BIDPRN PRN IVP SEVERE PAIN (7-10) 04/25/25 19:00 04/30/25 11:59 DC 04/29/25 23:31 0.5 MG Hydromorphone HCl (DiLAUDid 0.5MG INJ) 0.5 mg Q6H PRN IVP SEVERE PAIN (7-10) 04/23/25 14:00 04/25/25 08:25 DC 04/25/25 04:14 0.5 MG Hydromorphone HCl (DiLAUDid 1MG INJ) 1 mg TID PRN IVP SEVERE PAIN (7-10) 05/01/25 19:00 05/05/25 12:59 DC Hydromorphone HCl (DiLAUDid 1MG INJ) 1 mg TIDP PRN IVP SEVERE PAIN (7-10) 04/30/25 13:00 05/01/25 18:46 DC 04/30/25 20:44 1 MG Immune Globulin 400 ml @ 0 mls/hr Q24H IV 05/01/25 14:00 05/02/25 12:38 DC 05/01/25 16:18 37.5 MLS/HR Immune Globulin 400 ml @ 0 mls/hr Q24H IV 05/02/25 16:00 05/03/25 16:01 DC 05/02/25 16:46 37.5 MLS/HR Immune Globulin 400 ml @ 0 mls/hr Q24H IV 05/03/25 17:15 05/03/25 17:16 DC 05/03/25 17:57 37.5 MLS/HR Insulin Glargine (LANtus 100 UNITS/ML 10 ML VIAL) 10 units HS SQ 04/24/25 21:00 04/24/25 16:57 DC Insulin Glargine (LANtus 100 UNITS/ML 10 ML VIAL) 10 units ONCE STAT SQ 04/24/25 10:54 04/24/25 11:00 DC 04/24/25 11:19 10 UNITS Insulin Glargine (LANtus 100 UNITS/ML 10 ML VIAL) 15 units HS SQ 04/24/25 21:00 04/24/25 17:06 DC Insulin Glargine (LANtus 100 UNITS/ML 10 ML VIAL) 20 units DAILY SQ 05/15/25 09:00 06/14/25 08:59 05/17/25 10:11 20 UNITS Insulin Glargine (LANtus 100 UNITS/ML 10 ML VIAL) 30 units DAILY SQ 05/05/25 09:00 05/07/25 23:47 DC 05/07/25 08:12 30 UNITS Insulin Glargine (LANtus 100 UNITS/ML 10 ML VIAL) 30 units DAILY SQ 05/13/25 09:00 05/14/25 23:09 DC Insulin Glargine (LANtus 100 UNITS/ML 10 ML VIAL) 30 units ONCE SQ 04/24/25 17:00 04/25/25 06:19 DC 04/24/25 18:16 30 UNITS Insulin Glargine (LANtus 100 UNITS/ML 10 ML VIAL) 40 units DAILY SQ 05/08/25 09:00 05/13/25 06:31 DC 05/12/25 09:15 40 UNITS Insulin Glargine (LANtus 100 UNITS/ML 10 ML VIAL) 40 units DAILY SQ 04/29/25 09:00 04/30/25 07:31 DC Insulin Glargine (LANtus 100 UNITS/ML 10 ML VIAL) 50 units DAILY 04/26/25 09:00 04/29/25 06:49 DC 04/28/25 08:46 50 UNITS Insulin Glargine (LANtus 100 UNITS/ML 10 ML VIAL) 50 units DAILY SQ 04/30/25 09:00 05/05/25 07:21 DC 05/04/25 09:30 50 UNITS Insulin Human Regular (humuLIN R 100 UNIT/ML 3ML) 5 unit TIDAC SQ 04/24/25 17:00 04/24/25 17:06 DC Insulin Human Regular (humuLIN R 100 UNIT/ML 3ML) 8 unit TIDAC SQ 04/28/25 07:30 04/30/25 07:31 DC 04/30/25 06:15 8 UNIT Insulin Human Regular (humuLIN R 100 UNIT/ML 3ML) 10 unit TIDAC SQ 05/06/25 07:30 05/07/25 23:47 DC 05/07/25 16:06 10 UNIT Insulin Human Regular (humuLIN R 100 UNIT/ML 3ML) 10 unit TIDAC SQ 05/10/25 11:30 06/09/25 11:29 Hold 05/11/25 12:10 10 UNIT Insulin Human Regular (humuLIN R 100 UNIT/ML 3ML) 10 unit TIDAC SQ 04/24/25 17:00 04/25/25 06:17 DC 04/25/25 06:15 10 UNIT Insulin Human Regular (humuLIN R 100 UNIT/ML 3ML) 12 unit TIDAC SQ 05/05/25 07:30 05/05/25 22:51 DC Insulin Human Regular (humuLIN R 100 UNIT/ML 3ML) 12 unit TIDAC SQ 04/30/25 07:30 05/02/25 08:05 DC 05/02/25 06:45 12 UNIT Insulin Human Regular (humuLIN R 100 UNIT/ML 3ML) 15 unit TIDAC SQ 05/02/25 11:30 05/05/25 07:21 DC 05/04/25 17:33 15 UNIT Insulin Human Regular (humuLIN R 100 UNIT/ML 3ML) 15 unit TIDAC SQ 05/08/25 07:30 05/09/25 06:24 DC 05/08/25 17:16 15 UNIT Insulin Human Regular (humuLIN R 100 UNIT/ML 3ML) 15 unit TIDAC SQ 04/26/25 11:30 04/27/25 20:30 DC Insulin Human Regular (humuLIN R 100 UNIT/ML 3ML) 18 unit TIDAC SQ 05/09/25 07:30 05/10/25 09:56 DC 05/09/25 06:49 18 UNIT Insulin Human Regular (humuLIN R 100 UNIT/ML 3ML) 25 unit TIDAC SQ 04/25/25 07:30 04/26/25 07:58 DC 04/25/25 17:39 25 UNIT Insulin Human Regular (humuLIN R 100 UNIT/ML 3ML) INSULIN SLIDING SCAL... ACHS SQ 04/22/25 21:00 04/24/25 16:16 DC 04/24/25 11:18 8 UNIT Insulin Human Regular (humuLIN R 100 UNIT/ML 3ML) INSULIN SLIDING SCAL... ACHS SQ 05/05/25 07:30 06/04/25 07:29 05/17/25 07:18 6 UNIT Insulin Human Regular (humuLIN R 100 UNIT/ML 3ML) INSULIN SLIDING SCAL... ACHS SQ 04/24/25 16:30 04/25/25 14:09 DC 04/25/25 11:57 16 UNIT Insulin Human Regular (humuLIN R 100 UNIT/ML 3ML) INSULIN SLIDING SCAL... ACHS SQ 04/25/25 16:30 05/04/25 23:42 DC 05/04/25 20:49 6 UNIT Insulin Human Regular (humuLIN R 100 UNIT/ML 3ML) INSULIN SLIDING SCAL... Q4H SQ 04/27/25 20:30 04/28/25 09:11 DC 04/28/25 06:00 4 UNIT Lactated Ringer's 1,000 ml @ 100 mls/hr Q10H IV 04/22/25 20:00 04/23/25 10:09 DC 04/23/25 06:00 100 MLS/HR Lactulose (Constulose 20gm/ 30ml Udcup) 30 gm TID PO 04/25/25 11:00 04/30/25 09:45 DC 04/30/25 09:16 30 GM Levothyroxine Sodium (SYNTHroid 125MCG TAB) 125 mcg DAILY@0630 PO 04/25/25 06:30 05/25/25 06:29 05/15/25 05:57 125 MCG Lidocaine (Lidoderm Patch 5%) 1 patch Q24H TP 05/12/25 05:00 06/11/25 04:59 05/17/25 05:02 1 PATCH Lisinopril (Prinivil 10mg) 10 mg DAILY PO 05/02/25 09:00 05/13/25 08:46 DC 05/12/25 09:13 10 MG Magnesium Sulfate 50 ml @ 0 mls/hr PROTOCOL PRN IV OTHER [SEE ORDER COMMENTS] 04/22/25 20:00 05/22/25 19:59 Methylprednisolone Sodium Succinate (Solu-medROL 125MG) 125 mg Q6H IVP 04/23/25 08:00 04/28/25 09:10 DC 04/25/25 09:45 125 MG Metoprolol Succinate (TopROL XL) 50 mg AM PO 04/25/25 09:00 05/16/25 09:11 DC 05/13/25 08:48 50 MG Norepinephrine 250 ml @ 0 mls/hr AD PRN IV DIRECTED 05/14/25 23:30 06/13/25 23:29 05/17/25 03:23 6.8 MLS/HR Nystatin (NystOP 15 GM POWDER) apply abdominal fold/perineum BID TP 05/09/25 21:00 06/08/25 20:59 05/17/25 10:11 1 APPL Ondansetron HCl (zoFRAN 4MG INJ) 4 mg Q6H PRN IV NAUSEA/VOMITING 04/22/25 20:00 05/22/25 19:59 04/22/25 20:10 4 MG Pantoprazole Sodium (PROTonix 40MG INJ) 40 mg DAILY IVP 04/24/25 10:00 05/11/25 08:11 DC 05/10/25 09:09 40 MG Pantoprazole Sodium (PROTonix 40MG TAB) 40 mg DAILY PO 05/11/25 09:00 06/10/25 08:59 05/17/25 10:08 40 MG Pharmacy Profile Note (Pharmacy Communication) 1 each ONCE MISC 05/01/25 08:00 04/30/25 16:52 DC Pharmacy Profile Note (Pharmacy Communication) 1 each ONCE MISC 05/03/25 12:00 05/03/25 12:58 DC Pharmacy Profile Note (Pharmacy Communication) 1 each ONCE MISC 05/09/25 13:00 05/09/25 13:42 DC Pharmacy Profile Note (Pharmacy Communication) 1 each ONCE MISC 05/16/25 18:00 05/16/25 20:25 DC Phytonadione 10 mg/Sodium Chloride 51 ml @ 100 mls/hr ONCE IVPB 05/16/25 18:00 05/16/25 22:00 DC 05/16/25 21:53 100 MLS/HR Potassium Chloride 100 ml @ 100 mls/hr AD PRN IV POTASSIUM PROTOCOL 04/22/25 20:00 05/22/25 19:59 Potassium Chloride (K-Dur/Klor-Con 20meq) 20 meq AD PRN PO POTASSIUM PROTOCOL 04/22/25 20:00 05/22/25 19:59 05/03/25 13:10 20 MEQ Potassium Chloride (KCl 10% Elixir 20meq/15ml) 20 meq AD PRN PO POTASSIUM PROTOCOL 04/22/25 20:00 05/22/25 19:59 Pramipexole Dihydrochloride (miraPEX 0.25MG TAB) 0.5 mg HS PO 04/24/25 21:00 05/24/25 20:59 05/14/25 20:13 0.5 MG Pregabalin (LYRica 25MG) 25 mg BID PO 05/01/25 21:00 05/05/25 07:22 DC 05/04/25 09:22 25 MG Pregabalin ([id number]) 75 mg BID PO 04/24/25 21:00 04/24/25 14:49 DC Sodium Chloride 500 ml @ 0 mls/hr Q0M IV 04/25/25 11:00 05/25/25 10:59 Sodium Zirconium Cyclosilicate (Lokelma 10gm Powder) 10 gm TID PO 04/23/25 21:00 04/23/25 14:11 DC Sodium Zirconium Cyclosilicate (Lokelma 10gm Powder) 10 gm TID PO 05/15/25 09:00 05/15/25 19:22 DC Tramadol HCl (UltRAM) 50 mg Q6H PRN PO MODERATE PAIN (4-6) 05/11/25 22:00 05/16/25 21:59 DC 05/12/25 22:31 50 MG Tramadol HCl (UltRAM) 50 mg Q6H PRN PO MODERATE PAIN (4-6) 04/24/25 22:30 04/29/25 22:29 DC 04/28/25 13:55 50 MG Trimethoprim/ Sulfamethoxazole (BactRIM DS) 1 tab BID PO 04/25/25 21:00 04/26/25 14:50 DC 04/25/25 21:51 1 TAB Vancomycin HCl 250 ml @ 125 mls/hr Q12H IV 04/24/25 23:00 04/25/25 12:36 DC 04/25/25 11:43 125 MLS/HR Vancomycin HCl 250 ml @ 125 mls/hr Q12H IV 04/26/25 15:30 04/28/25 03:13 DC 04/27/25 15:22 125 MLS/HR Vancomycin HCl 250 ml @ 125 mls/hr Q12H IV 04/28/25 15:30 04/28/25 18:53 DC Vancomycin HCl 250 ml @ 125 mls/hr Q12H IV 04/28/25 20:00 05/02/25 20:34 DC 05/02/25 10:21 125 MLS/HR Vancomycin HCl 250 ml @ 125 mls/hr Q12H9 IV 05/04/25 21:00 05/08/25 20:49 DC 05/08/25 08:48 125 MLS/HR Vancomycin HCl (Vancomycin 750mg) 750 mg Q12H IVPB 05/08/25 21:00 05/09/25 13:30 DC 05/09/25 09:45 750 MG Vancomycin HCl (Vancomycin Protocol) 1 each AD IV 04/24/25 10:30 04/25/25 12:36 DC Vancomycin HCl (Vancomycin Protocol) 1 each AD IV 04/26/25 15:00 05/09/25 13:30 DC Venlafaxine HCl (EffEXOR XR 37.5mg CAP) 37.5 mg DAILY PO 04/24/25 16:00 05/05/25 11:18 DC 05/04/25 09:21 37.5 MG Venlafaxine HCl (EffEXOR XR 37.5mg CAP) 37.5 mg DAILY PO 04/25/25 09:00 04/24/25 14:50 DC Venlafaxine HCl (EffEXOR XR 37.5mg CAP) 37.5 mg HS PO 05/05/25 21:00 06/04/25 20:59 05/14/25 20:13 37.5 MG DIAGNOSTICS / RADIOLOGY: [place] [address] IMAGING REPORT Signed PATIENT: LUCÍA CATALAN MR#: [id number] : 1970 SEX: F AGE: 54 LOCATION: 2BH ORDER 44 STATUS: ADM IN HOSPITAL REPORT#: [id number] SERVICE 41 REASON: HEMOPTYSIS ORDERING PHYSICIAN: ERIN FRANKLIN PROCEDURE: CXR1VW - CHEST 1VW CHEST 1VW REASON: HEMOPTYSIS COMPARISON: Prior chest radiograph from 05/16/2025 is available. FINDINGS: There is mild cardiomegaly with diffuse interstitial pulmonary edema which was not seen on prior radiograph. There is no pleural effusion seen. There is a right internal jugular hemodialysis temporary catheter with tip in superior vena cava. IMPRESSION: 1. Interstitial pulmonary edema which was not seen on the prior radiograph 2. Cardiomegaly 2. Right-sided internal jugular hemodialysis catheter in place. DICTATED BY: GASTON TUCKER MD DATE: 05/17/25828 ELECTRONICALLY SIGNED BY: GASTON TUCKER MD DATE: 05/17/2534 [facility] [address] [place] [id number] IMAGING REPORT Signed PATIENT: LUCÍA CATALAN MR#: [id number] : 1970 SEX: F AGE: 54 LOCATION: 2BH ORDER 0004 STATUS: ADM IN REPORT#: [id number] SERVICE 0001 REASON: ELEVATED D-DIMER ORDERING PHYSICIAN: ERIN FRANKLIN PROCEDURE: VENOUS LUDWIG - US VENOUS DOPPLER BILATERAL US VENOUS DOPPLER BILATERAL HISTORY: No additional history given. COMPARISON: None TECHNIQUE: Bilateral upper extremity venous Doppler ultrasound study was performed. FINDINGS: There is a deep vein thrombosis seen in the right cephalic vein. The basilic vein on the right is not visible due to central line in place: Otherwise The subclavian, axillary, and brachial veins are visualized. Normal flow with augmentation and compressibilities are demonstrated. The cephalic veins are also seen and grossly patent. IMPRESSION: . The deep vein thrombosis involving the right cephalic vein Otherwise the remaining bilateral lower extremity has no evidence of deep vein thrombosis. 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 Suspected Endocarditis, RAMAN deferred due to bleeding risks; unable to rule out endocarditis Status post nephrostomy tube Renate intertrigo, resolved Infectious spondylodiscitis L2-L3 Sepsis, unable to determine POA Acute hypoxic hypercapnic respiratory failure, not POA, resolved AMS due to suspected steroid induced psychosis or hepatic encephalopathy, not POA, resolved Hyperammonemia due to cirrhosis, Suspected Intractable low back pain due to spinal stenosis POA Acute urinary tract infection due to MRSA POA Hypervolemic hyponatremia POA Chronic anemia POA Hyponatremia POA Acute kidney injury on renal insufficiency POA Hyperglycemia due to uncontrolled diabetes POA Hypocalcemia POA Cirrhotic liver with splenomegaly consistent with portal hypertension per CT POA Esophageal varices Renal parenchymal disease per CT POA Hypothyroidism POA Hyperlipidemia POA Hypertension POA Anxiety disorder POA Depression POA Restless leg syndrome POA Suspected obstructive sleep apnea untreated POA Morbid obesity POA PLAN: Persistent MRSA bacteremia, * Gram positive cocci positive (MRSA) as of 05/14/25 * The patient was transferred to ICU due to clinical deterioration * Consulted critical Care team * Currently receiving daptomycin (Day 9) and ceftaroline (Day 9) per Infectious Disease (ID) recommendations. * WBC tagged scan done * Maintain contact precautions for infection control * PICC line has been removed * Monitor for creatine kinase level * Repeat blood cultures per Infectious Disease protocol to monitor clearance of bacteremia. 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 (05/13/25) * Dr Sanchez has been consulted for further evaluation and management, As per Dr. Singh's, patient's critical condition was discussed with staff, and family. Surgical drainage remains an option, but patient requires medical optimization 1st: Planned made for aggressive medical management. * MRI showed: Supraspinatus tendinosis with high-grade partial-thickness bursal sided tear at the myotendinous junction. Infraspinatus tendinosis with low-g rade partial-thickness bursal sided tear at the footplate.Subscapularis tendinosis without high-grade tear.Mild acromioclavicular and glenohumeral osteoarthritis.Mild subacromial/subdeltoid bursitis.Findings which can be seen in the setting of adhesive capsulitis. (04/28/25) Acute renal failure * Patient received dialysis (day 3) * Monitor electrolytes and volume status * Dialysis done removed 2500 ml (05/16) * As per the Nephrology, The patient will continue with maximum ultrafiltration as blood pressure allows. The patient is to receive 1 unit of packed red blood cells with dialysis. * Patient with worsening renal function, persistent hyperkalemia and oliguria: Dialysis recommended and done, 1500 ml removed. (05/15) * Started on lokelma 10g for 48 hours * Creatinine 4.2, BUN 67 * FENa <0.1 % * Started on Sevelamer 800 mg for hyperphosphatemia * We will avoid nephrotoxic drugs including NSAID. Thrombocytopenia due to ITP * Plan To transfuse 1 units of platelets * D-dimer >96707, Fibrinogen 92, APTT 57.8, INR 2.03 and PT 20.1 Bilateral upper extremity venous Doppler ultrasound study was performed which showed a deep vein thrombosis in the right cephalic vein. * D-dimer 6512 (05/14/25) * DIC panel workup showed D dimer 7068, Fibrinogen 102, APTT 43.3, PT 16.9 and INR 1.68. (05/11/25) * Vitamin K 10 mg has been given * As per Dr Lorenzo, trying to get her Promacta when available (medicine that raises the platelets) * V/Q scan unable to perform as she couldn't lie flat. * Platelets has been transfused * Continue to follow Hematology recommendations for ongoing management of thrombocytopenia. * Monitor platelet counts daily. * Monitor for bleeding or thrombotic complications. Altered Mental Status due to Hepatic Encephalopathy Suspected * Her ammonia level is less than 10 * Monitor ammonia levels, mental status, and signs of worsening encephalopathy. * Monitor neuro status and reassess mental status regularly with steroid adjustments. Intractable lower back pain, resolving * Per Dr. Sanchez, possible diagnosis of discitis and osteomyelitis at L2-L3 along with psoas inflammation. * Continue multimodal pain management: acetaminophen, topical agents * Pregabalin will be discontinued due to concern for possible medication-induced slurred speech. CT head showed no evidence of acute intracranial abnormalities. * Neuro checks q4 Cirrhosis with portal hypertension * IV albumin given every 8 hours, possible hepatorenal syndrome * LFT trending up with total bilirubin 5.2, AST 170, ALT 116, ALP 402 * Ultrasound revealed increased echogenicity of the right kidney which may reflect renal parenchymal disease. * Fecal occult blood test positive * Liver functions improving * Monitor for decompensation: encephalopathy, ascites, variceal bleeding. * Consider beta sergio for variceal prophylaxis. * Monitor LFTs, INR, and ammonia * Her MELD- Na score is 24 points, 14-15% estimated 90 day mortality Acute UTI, resolved * Monitor for signs of urosepsis * Encourage hydration and bladder care Hyponatremia, resolved * Monitor serum Na closely; consider fluid restriction if dilutional. Renate intertrigo, resolved * Patient is improved significantly * The patient was given fluconazole 150 mg 1 dose today, gradually resolving Hyperglycemia (Uncontrolled Diabetes) * Lantus is 30 units daily as per endocrinology recommendations, and continue for regular insulin 10 units TIDAC before meals. * Blood glucose level is trending down to 106 * Monitor blood glucose QID * Educate on diet and insulin compliance; monitor for DKA if concern. * Correct electrolytes accordingly. Chronic anemia * Received 1 units of PRBC, since her hemoglobin was 7.0 * We discussed and ordered 1 units of FFP for the patient * H/o esophageal varices due to cirrhosis with portal hypertension * Per GI, hold off on EGD given no overt GI bleeding and stable hemoglobin * Monitor trends, H&H daily * Avoid transfusion unless symptomatic or Hgb <7. Goals of care/code status * Code status with patient's family, including the risks and limited benefits of CPR given her overall clinical condition. The family understands and agrees that and proceed with signing DNR paperwork. * Patient's condition is gradually worsening * Prognosis is guarded ATTESTATION BY PHYSICIAN I have seen and examined the patient. I reviewed the documentation, medical decision making, and treatment plan as noted by the resident provider above. I agree with the findings and plan of care. Cory Pimentel MD [facility],YOLANDA PERSAUD May 17, 2025 15:41
[2025-05-17] MEDS: 0.9%NACL 1000ML 1,000 ML IV SCH (18:08)
[2025-05-17 18:57] LABS: NUCLEATED RED BLOOD CELLS 0.5 % (0.0-0.19); PLATELET COUNT (AUTO) 12 K/uL (130-400); RED BLOOD CELL COUNT(AUTO) 2.84 MIL/uL (4.00-5.50); RED CELL DISTRIBUTION WIDTH 25.4 % (11.0-15.5); WHITE BLOOD COUNT (AUTO) 10.5 K/uL (4.8-10.8)
[2025-05-17 19:07] LABS: INR 1.71 (0.85-1.15)
[2025-05-17 19:10] LABS: CREATININE 3.2 mg/dL (0.5-1.0); GLOMERULAR FILTR. RATE CALC 16.0 mL/min (>90); GLUCOSE,RANDOM 171.0 mg/dL (70-105); SODIUM SERUM 136.0 mmol/L (136-145); UREA NITROGEN, BLOOD 48.0 mg/dL (7-18)
[2025-05-17 19:13] LABS: IMMATURE GRANULOCYTE ABSOLUTE 0.08 K/uL (0-1)
--- NOTE | 2025-05-17 20:33 | PN ---
NEPHROLOGY NOTE SUBJECTIVE: The patient has been evaluated and seen for dialysis, seen several times. The patient is critically ill in the ICU, seen for dialysis. No other associated finding. No other aggravating or relieving factor. PHYSICAL EXAMINATION: VITAL SIGNS: Blood pressure 130/50, pulse 93, respiratory rate is 20, afebrile. HEENT: Head is atraumatic, normocephalic. Pupils are round and reactive to light. Sclerae are anicteric. Conjunctivae not pale. Oral mucosa is not dry. NECK: Supple. No masses or bruits. Thyroid is palpable. Neck has no bruits. LABORATORY DATA: Labs have been reviewed. Old records reviewed. PROBLEMS: Advanced renal failure. The patient has UTI, sepsis, respiratory failure and multiple other comorbidities. PLAN: Dialysis in ICU, seen several times. We will continue monitoring intake, output and weight. Overall status will be monitored. Nonsteroidal drugs will be avoided. Doses of medicine will be adjusted and will be monitoring closely. I have discussed with the other team members. The patient's condition is critical, guarded. Thank you for this patient. TID: [id number] RECEIPT: [id number]
--- NOTE | 2025-05-17 20:47 | PN ---
NEPHROLOGY NOTE SUBJECTIVE: The patient has been evaluated, seen for dialysis, seen several times. The patient is critically ill. No other associated findings. No other aggravating or relieving factors. The patient is generally weak. PHYSICAL EXAMINATION: GENERAL: Pale, no other distress or deformities, lying in bed. VITAL SIGNS: Blood pressure is 118/70, respiratory rate is 18, afebrile. HEENT: Head is atraumatic, normocephalic. Pupils are round and reactive. Sclerae are anicteric. Conjunctivae not pale. Oral mucosa is not dry. NECK: Without masses or bruits. Thyroid is palpable. Neck has no bruits. LUNGS: Shows equal thoracic percussion note being resonant in all areas. CARDIAC: Regular rhythm. No rub. No S3, S4. No parasternal heave. ABDOMEN: With no guarding or tenderness. Bowel sounds present. No free fluid. EXTREMITIES: With no edema and no cyanosis or clubbing. LABORATORY DATA: Labs have been reviewed and old records reviewed. Imaging studies are personally reviewed. PROBLEMS: Renal failure, anemia and the patient has multiple other comorbidities. The patient is critically ill in the ICU. PLAN: Dialysis to continue, seen on dialysis and seen in ICU multiple times. Overall condition is poor. I have discussed with other team physicians. Epogen has been ordered. We will follow up closely. TID: [id number] RECEIPT: [id number]
[2025-05-18] VITALS (22 sets, daily range): BP systolic 93–152; BP diastolic 32–68; PULSE 48–119; RESP 8–50; TEMP 97.8–98; O2SAT 97–98
[2025-05-18 03:17] LABS: ABG BASE EXCESS -3.6 mmol/L (-2.0-3.0); ABG HCO3 22.9 mmol/L (21.0-28.0); ABG OXYGEN SATURATION 82.6 % (94.0-98.0); ABG PCO2 47 mmHg (32-45); ABG PH 7.309 (7.350-7.450); DEVICE COMMENT OSCAR RN,LR; PO2, ARTERIAL BG 51.0 mmHg (83.0-108.0); TEMPERATURE, CELSIUS BG 37.0 CELSIUS (35.5-37.0); VENT MODE, BG NRB (ROOM AIR)
[2025-05-18 03:32] LABS: NUCLEATED RED BLOOD CELLS 0.3 % (0.0-0.19); RED BLOOD CELL COUNT(AUTO) 2.94 MIL/uL (4.00-5.50); RED CELL DISTRIBUTION WIDTH 25.5 % (11.0-15.5); WHITE BLOOD COUNT (AUTO) 8.9 K/uL (4.8-10.8)
[2025-05-18 03:40] LABS: PLATELET COUNT (AUTO) 7 K/uL (130-400)
[2025-05-18 03:42] LABS: ASPARTATE AMINOTRANSFERASE 156.0 U/L (10-37); CREATININE 3.6 mg/dL (0.5-1.0); GLOMERULAR FILTR. RATE CALC 14.0 mL/min (>90); GLUCOSE,RANDOM 174.0 mg/dL (70-105); PHOSPHORUS 6.4 mg/dL (2.5-4.9); SODIUM SERUM 137.0 mmol/L (136-145); TOTAL PROTEIN, SERUM 6.8 g/dL (6.0-8.3); UREA NITROGEN, BLOOD 54.0 mg/dL (7-18)
[2025-05-18 03:46] LABS: INR 1.86 (0.85-1.15)
--- NOTE | 2025-05-18 04:30 | HMCIMG ---
EXAM: CR Chest, 1 view CLINICAL HISTORY: Shortness of breath. COMPARISON: Chest radiograph dated 05/17/2025. FINDINGS: The right IJ central venous catheter tip projects at the distal SVC. Diffuse airspace disease bilaterally, predominantly perihilar and bibasilar distribution, likely reflecting pulmonary edema or pneumonia. Small pleural effusions bilaterally. Stable cardiomegaly and pulmonary vascular congestion. No pneumothorax. IMPRESSION: Interval worsening in the diffuse airspace disease bilaterally, predominantly perihilar and bibasilar distribution, likely reflecting pulmonary edema or pneumonia. Interval development of small pleural effusions bilaterally. Stable cardiomegaly and pulmonary vascular congestion. /[place]
--- NOTE | 2025-05-18 07:00 | NUR ---
Patient Shift Summary 0300: notified Bernardo MARINE ARCHITECT patient saturating in the 80's and refusing BIPAP. 0310: orders received for ABG, X-ray, Labs, and High Flow (50L FiO2 100%). 0330: made aware and will be coming to the bedside to be with . 0350: patient refusing High Flow and would like to withdraw all treatments and be comfort care, patient and are acknowledge that the critical care MARINE ARCHITECT would like to give breathing treatments and diuretics as well consult Nephrology for recommendations for dialysis; however, states he will sign advance directive of withdrawal of life support. 0400: advance directive of withdrawal of life support signed at this time by . 0416: orders received for morphine and diazepam IV. 0504: patient time of , Bradly Lizarraga () aware, Primary team, Critical care team, Hematology/Oncology (Brittani PERSAUD) aware, Nephrology (Mina PERSAUD) aware, Rigger Third (Berta Aleman RN) aware. 0600: JASS made aware of time of , spoke with Carmen, referral number already in record. 0623: Tissue and Eye rejected due to sepsis, spoke with Catrina Fry. 0630: Family and Jimena at bedside. 0700: Post mortem care endorsed to Kem MERCHANT and Muna MERCHANT.
--- NOTE | 2025-05-18 14:19 | DS ---
NOTE Date/Time of : 05/18/25 0504 AM Code Status: DNR/DNI Events prior to patient's : Ms. Peggy Lizarraga was a 54-year-old female with a past medical history of diabetes mellitus, chronic kidney disease, SLE, morbid obesity who was admitted with intractable back pain. Imaging revealed a possible intradiscal collection at L2L3 level with extension into the epidural space, raising concern for spinal infection. Neurosurgery was consulted but surgical drainage was deferred due to thrombocytopenia. Her urine cultures and blood cultures grew MRSA. She was initially treated with IV vancomycin, gentamycin and subsequently transitioned to daptomycin and ceftaroline per Infectious Disease recommendations due to persistent positive cultures and clinical deterioration. She also had severe thrombocytopenia related to cirrhosis and Lupus and was treated with high dose steroids and IVIG and was transfused platelets but her platelets were always below 30k. Her hospital course was complicated by persistent bacteremia, thrombocytopenia, and progressive renal dysfunction. She had right hydronephrosis for which nephrostomy tube was placed. She developed altered mental status likely due to hepatic encephalopathy and was shifted to ICU and started on lactulose and was on BiPAP with Precedex drip as she was becoming hypercapnic and refusing nasal cannula. Her encephalopathy improved and she was transferred back to floors. Despite aggressive antibiotic therapy she had recurrent positive cultures growing MRSA. RAMAN was suggested as infective endocarditis could have been a source of infection but was deferred due to severe thrombocytopenia and esophageal varices from cirrhosis with portal hypertension. Despite maximum medical therapy, she developed oliguric acute kidney injury with a creatinine peaking at 4.4 mg/dL, persistent hyperkalemia, and was initiated on hemodialysis. She also had severe thrombocytopenia (platelets < 20,000) with concern for liver failure/ disseminated intravascular coagulation. Daily monitoring showed progressive clinical decline, with worsening encephalopathy, weakness, and eventual respiratory failure requiring oxygen support via non-rebreather mask. On 05/17, due to poor prognosis, worsening multi-organ failure, and the patients and familys goals of care, she was transitioned to comfort measures only (BENCH TECHNICIAN) and a DNR order was signed. Events related to : Patient was saturating in 80s and was refusing BiPAP at around 0300 on 05/18/25. ABG, CXR, labs and High flow oxygen were ordered. pH was 7.3, pCO2 47, bicarb was 22.9 from hypoventilation, platelets were 7k, PT-INR was elevated, Cr was 3.6, BUN 54, BNP 577, liver enzymes were elevated. Patient refused high flow and requested to withdraw all treatments and be comfort care. Patient and were told about the breathing treatments, diuretics and dialysis recommendations however signed advance directive of withdrawal off support at 0400. BENCH TECHNICIAN - patient was given diazepam and morphine and she at 050. Cause: Multiorgan failure due to persistent MRSA bacteremia and DIC Manner/Autopsy: No Provider Pronouncing : Cory Pimentel MD, Radha Sanchez MD Attending Physician: KALI Waters MD, MD May 18, 2025 14:19
[2025-05-19] MEDS ORDERED: EPOETIN ALFA-EPBX (NON-ESRD) 10,000 UNIT/ML VIAL SQ SCH (09:00)
== END 2025-05-18 05:04 | DRG 689 ==
LOC: EDH 14:10 → EDHIP 19:43 → 3BH 04-23 17:34 → 2CH 04-26 15:59 → 3CH 04-28 15:30 → 2BH 05-14 14:59
PROVIDERS: ADMIT Internal Medicine; ATTEND Internal Medicine
PROC: 30233N1 Transfusion of Nonautologous Red Blood Cells into Peripheral Vein, Percutaneous Approach (ICD-10-PCS; 2025-04-22)
PROC: 5A09357 Assistance with Respiratory Ventilation, Less than 24 Consecutive Hours, Continuous Positive Airway Pressure (ICD-10-PCS; 2025-04-26)
PROC: 5A09357 Assistance with Respiratory Ventilation, Less than 24 Consecutive Hours, Continuous Positive Airway Pressure (ICD-10-PCS; 2025-04-27)
PROC: 5A09357 Assistance with Respiratory Ventilation, Less than 24 Consecutive Hours, Continuous Positive Airway Pressure (ICD-10-PCS; 2025-04-28)
PROC: 0T9330Z Drainage of Right Kidney Pelvis with Drainage Device, Percutaneous Approach (ICD-10-PCS; principal; 2025-04-29)
PROC: 30233R1 Transfusion of Nonautologous Platelets into Peripheral Vein, Percutaneous Approach (ICD-10-PCS; 2025-04-29)
PROC: 5A09357 Assistance with Respiratory Ventilation, Less than 24 Consecutive Hours, Continuous Positive Airway Pressure (ICD-10-PCS; 2025-05-14)
PROC: 5A1D70Z Performance of Urinary Filtration, Intermittent, Less than 6 Hours Per Day (ICD-10-PCS; 2025-05-15)
PROC: 5A09357 Assistance with Respiratory Ventilation, Less than 24 Consecutive Hours, Continuous Positive Airway Pressure (ICD-10-PCS; 2025-05-15)
PROC: 02HV33Z Insertion of Infusion Device into Superior Vena Cava, Percutaneous Approach (ICD-10-PCS; 2025-05-15)
PROC: B548ZZA Ultrasonography of Superior Vena Cava, Guidance (ICD-10-PCS; 2025-05-15)
PROC: 5A09357 Assistance with Respiratory Ventilation, Less than 24 Consecutive Hours, Continuous Positive Airway Pressure (ICD-10-PCS; 2025-05-16)
PROC: 30233M1 Transfusion of Nonautologous Plasma Cryoprecipitate into Peripheral Vein, Percutaneous Approach (ICD-10-PCS; 2025-05-17)
PROC: 5A1D70Z Performance of Urinary Filtration, Intermittent, Less than 6 Hours Per Day (ICD-10-PCS; 2025-05-17)
PROC: 5A09357 Assistance with Respiratory Ventilation, Less than 24 Consecutive Hours, Continuous Positive Airway Pressure (ICD-10-PCS; 2025-05-17)
DX: N13.6 Pyonephrosis (principal); D65 Disseminated intravascular coagulation [defibrination syndrome]; J96.01 Acute respiratory failure with hypoxia; J96.02 Acute respiratory failure with hypercapnia; I33.0 Acute and subacute infective endocarditis; G06.2 Extradural and subdural abscess, unspecified; I82.621 Acute embolism and thrombosis of deep veins of right upper extremity; E87.1 Hypo-osmolality and hyponatremia; I85.10 Secondary esophageal varices without bleeding; K76.6 Portal hypertension; Z68.43 Body mass index [BMI] 50.0-59.9, adult; D84.9 Immunodeficiency, unspecified; E87.0 Hyperosmolality and hypernatremia; J90 Pleural effusion, not elsewhere classified; M46.26 Osteomyelitis of vertebra, lumbar region; I12.0 Hypertensive chronic kidney disease with stage 5 chronic kidney disease or end stage renal disease; I85.00 Esophageal varices without bleeding; N18.6 End stage renal disease; N17.0 Acute kidney failure with tubular necrosis; K76.82 Hepatic encephalopathy; E11.65 Type 2 diabetes mellitus with hyperglycemia; E66.01 Morbid (severe) obesity due to excess calories; E83.51 Hypocalcemia; F32.A Depression, unspecified; F41.9 Anxiety disorder, unspecified; G25.81 Restless legs syndrome; G47.30 Sleep apnea, unspecified; I10 Essential (primary) hypertension; K74.60 Unspecified cirrhosis of liver; M32.9 Systemic lupus erythematosus, unspecified; Z91.199 Patient's noncompliance with other medical treatment and regimen due to unspecified reason; B37.2 Candidiasis of skin and nail; B96.89 Other specified bacterial agents as the cause of diseases classified elsewhere; E03.9 Hypothyroidism, unspecified; E11.22 Type 2 diabetes mellitus with diabetic chronic kidney disease; E78.00 Pure hypercholesterolemia, unspecified; E86.1 Hypovolemia; E87.5 Hyperkalemia; Z66 Do not resuscitate; G89.29 Other chronic pain; G47.33 Obstructive sleep apnea (adult) (pediatric); M43.16 Spondylolisthesis, lumbar region; K73.9 Chronic hepatitis, unspecified; M47.816 Spondylosis without myelopathy or radiculopathy, lumbar region; R62.7 Adult failure to thrive; E11.69 Type 2 diabetes mellitus with other specified complication; Z20.822 Contact with and (suspected) exposure to COVID-19; E87.70 Fluid overload, unspecified; S39.012A Strain of muscle, fascia and tendon of lower back, initial encounter; X58.XXXA Exposure to other specified factors, initial encounter; T38.0X5A Adverse effect of glucocorticoids and synthetic analogues, initial encounter; Y92.89 Other specified places as the place of occurrence of the external cause; Z74.01 Bed confinement status; Z79.4 Long term (current) use of insulin; Z79.52 Long term (current) use of systemic steroids; Z51.5 Encounter for palliative care; Z82.49 Family history of ischemic heart disease and other diseases of the circulatory system; Z82.0 Family history of epilepsy and other diseases of the nervous system; Z83.3 Family history of diabetes mellitus; Z86.2 Personal history of diseases of the blood and blood-forming organs and certain disorders involving the immune mechanism; Z90.49 Acquired absence of other specified parts of digestive tract; Z99.2 Dependence on renal dialysis; Y93.89 Activity, other specified; Y99.8 Other external cause status
CPT/HCPCS: 36415; 36430; 36556; 36569; 36600; 50432; 70450; 71045; 72131; 72148; 72158; 73221; 74176; 76705; 76775; 78806; 80048; 80051; 80053; 80061; 80074; 80170; 80202; 80305; 81001; 82010; 82040; 82140; 82247; 82248; 82270; 82306; 82330; 82435; 82533; 82550; 82570; 82607; 82728; 82803; 82947; 82948; 83010; 83036; 83540; 83550; 83605; 83615; 83735; 83880; 83930; 83935; 83970; 84100; 84132; 84145; 84156; 84295; 84300; 84443; 84484; 84550; 85014; 85018; 85025; 85027; 85045; 85378; 85384; 85610; 85651; 85730; 85732; 86022; 86140; 86160; 86701; 86704; 86706; 86803; 86850; 86880; 86900; 86901; 86922; 86927; 87040; 87086; 87186; 87340; 87390; 87426; 87804; 87880; 90935; 93005; 93306; 93356; 93970; 94640; 94660; 99156; 99157; 99285; A9547; C1769; C1894; G0378; J0612; J0696; J0712; J0878; J1100; J1171; J1200; J1572; J1580; J1630; J1644; J1815; J1938; J2250; J2270; J2405; J2470; J2919; J3010; J3360; J3373; J3430; J3490; J7050; J7070; J7120; J7512; P9012; P9016; P9017; P9034; P9046; Q0163; Q9967; A9575; C1729; C1751; J3370